=== PATIENT | female | born 1950 | race Caucasian/White ===

== ENCOUNTER → 2018-01-29 12:35 | Outpatient (CLI) | payer MEDICARE, OTHER, SELFPAY | PROVIDERS: Family Provider Internal Medicine; PCP Internal Medicine; Visit Provider Obstetrics & Gynecology | DX: Z12.31 Encounter for screening mammogram for malignant neoplasm of breast (principal) | CPT/HCPCS: 77063; 77067 ==

== ENCOUNTER → 2018-11-26 | Outpatient (CLI) | payer MEDICARE, OTHER, SELFPAY ==
[2018-05-23 13:53] VITALS: BMI 23.9
[2018-11-26 17:17] LABS: D-Dimer Quantitative (DVT/PE) < 0.27 FEU/ug/m (0.27-0.49)
== END | disposition home or self-care (01) ==
LOC: LABSPEC 16:39
PROVIDERS: Family Provider Internal Medicine; PCP Internal Medicine; Referring Provider Family Medicine; Visit Provider Family Medicine
DX: R06.02 Shortness of breath (principal); R07.89 Other chest pain
CPT/HCPCS: 85379

== ENCOUNTER → 2018-11-28 | Outpatient (CLI) | payer MEDICARE, OTHER, SELFPAY ==
[2018-05-23 13:53] VITALS: BMI 23.9
[2018-11-28 14:05] LABS: Albumin, Serum 4.1 g/dL (3.2-5.0)
== END | disposition home or self-care (01) ==
LOC: LAB 12:20
PROVIDERS: Family Provider Internal Medicine; PCP Internal Medicine; Referring Provider Family Medicine
DX: E83.52 Hypercalcemia (principal)
CPT/HCPCS: 36415; 82040

== ENCOUNTER → 2019-05-20 12:46 | Outpatient (CLI) | payer MEDICARE, OTHER, SELFPAY ==
[2018-05-23 13:53] VITALS: BMI 23.9
--- NOTE | 2019-05-20 12:48 | BI_ITS ---
MAMMOGRAPHY - BILATERAL SCREENING REASON FOR EXAM: Female, 69 years old. Routine annual screening examination. PERTINENT HISTORY: Non-contributory. Remote left stereotactic breast biopsy. TECHNIQUE: Digital bilateral breast mary (3D mammographic acquisition) in the CC and MLO projections. 2-D mediolateral oblique (MLO) and craniocaudad (CC) views of both breasts were obtained. CAD: Full Field Digital Mammography with Computer Added Detection was performed. COMPARISON: Comparison is made with prior examination January 29, 2018 and November 17, 2016. FINDINGS: Breast Composition: The breasts are heterogeneously dense, which may obscure small masses. There are no dominant masses or suspicious calcifications. No other significant abnormalities are identified. There has been no significant change since the prior study. BI/SCREEN MAMM (CAD) W/MARY BILAT IMPRESSION: Stable bilateral screening mammogram. Yearly follow-up mammogram recommended. (A) ASSESSMENT CATEGORY: BIRADS Category 1: Negative. A letter regarding these results will be sent to the patient by the facility within 30 days. Approximately 10% of breast cancers are not detected by mammography. A normal mammogram should not delay biopsy of a clinically suspicious abnormality. [id number] Electronically Signed: Alex Nielsen, at 13:34 EST , Service support ,
== END ==
PROVIDERS: Family Provider Family Medicine; PCP Family Medicine; Referring Provider Obstetrics & Gynecology; Visit Provider Obstetrics & Gynecology
DX: Z12.31 Encounter for screening mammogram for malignant neoplasm of breast (principal)
CPT/HCPCS: 77063; 77067

== ENCOUNTER 2020-03-10 10:12 | Emergency (ER) | payer MEDICARE, OTHER, SELFPAY ==
[2019-11-12 12:48] VITALS: BMI 23.9
[2020-03-10 10:12] VITALS: BP 155/90; PULSE 82; RESP 18; TEMP 36.1; O2SAT 97; BMI 23.3
--- NOTE | 2020-03-10 10:37 | RAD_ITS ---
STUDY: X-RAY - RIGHT WRIST REASON FOR EXAM: Female, 69 years old. FELL ON RIGHT WRIST YESTERDAY. PAIN ON ULNAR SIDE. TECHNIQUE: 3 view(s) of the wrist were obtained. COMPARISON: None. FINDINGS: Acute mildly displaced fractures at the right distal radius and ulna. No acute dislocation. No acute bone destruction. Advanced arthrosis at the first carpometacarpal joint. Mild intercarpal joint arthrosis. Osteopenia. Soft tissue swelling at the wrist. RAD/Wrist min 3 Views IMPRESSION: Acute right distal radius and ulnar fractures Soft tissue swelling Electronically Signed: Jamari James DO at 11:24 EDT Tel , Service support ,
--- NOTE | 2020-03-10 10:40 | ED.VIS.FALL ---
History of Present Illness Chief Complaint: Upper Extremity Injury Informant: Patient Occurred: Today Mechanism/Context: Same level fall, Slip - on her outdoor ramp Location: right wrist Quality of Pain: Aching Current Severity: Mild Maximum Severity: Severe Worsened by: moving R wrist Relieved by: remaining still Associated Symptoms: Loss of function. Negative for: Parasthesias, Weakness, Inability to ambulate, Loss of consciousness, Amnesia Narrative: [place] female slipped on her outdoor ramp, falling to right outstretched hand and injuring her right wrist. She denies any other injury. No anticoagulants, no head injury, no loss of consciousness. No recent illness. - Past Medical History (1) Benign essential hypertension Status: Chronic Past Medical History - Allergies and Home Meds Allergies/Adverse Reactions: Allergies amoxicillin Allergy (Verified 03/10/20 10:16) Rash diclofenac Allergy (Verified 03/10/20 10:42) Shortness of breath iodine Allergy (Verified 03/10/20 10:16) Anaphylaxis Primary Care Physician: Haroldo De Anda MD [Primary Care Provider] - Surgical History: - - Left wrist orthopedic Lives: Spouse/ Significant Other Smoking Status: Never smoker Review of Systems General: Denies: Chills, Fever, Sweats Musculoskeletal: Reports: Extremity Pain Skin: Denies: Rash, Wounds Neurological: Denies: Headache, Weakness, Numbness Physical Exam Vital Signs/Narrative: Vital Signs Temp Pulse Resp BP Pulse Ox 03/10/20 10:12 97.0 F L 82 18 155/90 H 97 Inital Vital Signs reviewed: Yes General: Well nourished, Well developed, - - Well-appearing no distress Head: Normocephalic, Atraumatic Eyes: Perrl, EOMI Extremeties: Limited range of motion with deformity at the right wrist. Tender throughout the distal radius and distal ulna area. The deformity appears to be possibly radial displacement of the carpus and hand. Reasonable range of motion of the fingers without issue including the MCPJs and the thumb CMCJ. Nontender throughout the elbow and shoulder with good range of motion at those joints. All other extremities range without difficulty. Skin: Normal color, No rash, Trauma - Contusion with small hematoma distal right wrist, dorsal at distal radius Neurological: Alert, Oriented x3, Cranial nerves II-XII grossly intact, Normal Strength, Normal Sensation, Normal Gait Psychological: Normal affect, Normal Mood Diagnostic/Tx/Re-eval Clinical Impression(s) from Imaging Studies Wrist X-Ray 03/10/20 10:37 IMPRESSION: Acute right distal radius and ulnar fractures Soft tissue swelling Electronically Signed: Jamari James DO at 11:24 EDT Tel , Service support , Wrist X-Ray 03/10/20 12:39 IMPRESSION: Casted right distal radius and ulnar fractures Soft tissue swelling Electronically Signed: Jamari James at 13:09 EDT Tel , Service support , - Medical Decision Making X-ray confirms distal radius and ulna fractures. Patient was consented for closed reduction and hematoma block. After the initial 1, the x-ray still showed persistent significant angulation. Therefore, the patient allow me to repeat the procedure, but the lidocaine was wearing off so we repeated the hematoma block. I think the alignment looks much better, with reduction of the displacement on the second attempt. She will follow-up with [facility], she saw Dr. Liang in the past but he is retired. She wanted something for pain was offered [place], but she only wants Tylenol right now, prescribed [place] for use at home as needed. Procedures - Upper Extremity Splints Upper Extremity Splint: Orthoglass, - - short arm AP; NVID after placement Splint Fabrication: Fabricated Location: Right Procedure(s): Hematoma block closed right distal radius fracture --after sterile isopropanol prep, 8 cc of plain 1% lidocaine was placed into the hematoma with a dorsal approach, after aspirating a small amount of blood, and palpating the fracture directly. This was performed twice, about 2 hours apart. Tolerated well no complications. Closed reduction right distal radius fracture --manual manipulation was performed to try to correct the dorsal displacement of the distal radius. This was performed 2 separate times, after a hematoma block prior to each. Tolerated well no complications. Postreduction films show good alignment and improvement. ED Disposition - Plan for ED Patient: Disposition: Home or Assisted Living Diagnosis: Traumatic closed displaced fracture of distal end of right radius and ulna Instructions: ED Fx Colles Wrist Redu Requ Prescriptions: Hydrocodone Bitart/Apap 5-325 [[place] 5MG-325MG] 1 tab PO Q4H PRN PRN 2 Days #10 tab PRN Reason: Pain Prescription Printed Referrals: Eric Garrett MD [STAFF PHYSICIAN] - As soon as possible (Call for appointment)
--- NOTE | 2020-03-10 12:39 | RAD_ITS ---
STUDY: X-RAY - RIGHT WRIST REASON FOR EXAM: Female, 69 years old. Post reduction. TECHNIQUE: 2 view(s) of the wrist were obtained. COMPARISON: Earlier the same day. FINDINGS: Cast application which which partially obscures soft tissue and osseous details. Casted mildly displaced fractures at the right distal radius and ulna. No acute dislocation. No acute bone destruction. Advanced arthrosis at the first carpometacarpal joint. Mild intercarpal joint arthrosis. Osteopenia. RAD/Wrist 2 Views IMPRESSION: Casted right distal radius and ulnar fractures Soft tissue swelling Electronically Signed: Jamari James DO at 13:09 EDT Tel , Service support ,
--- NOTE | 2020-03-10 14:35 | RAD_ITS ---
STUDY: X-RAY - RIGHT WRIST REASON FOR EXAM: Second post reduction of right wrist fracture. TECHNIQUE: 2 view(s) of the wrist were obtained. COMPARISON: Radiographs 03/10/2020. FINDINGS: There is osteopenia. There is a mildly impacted distal radial fracture with less dorsal displacement of the distal fragment since the first post reduction series. There is no interval change of the nondisplaced ulnar styloid process fracture. Normal radiocarpal articulation. Normal distal radioulnar articulation. Normal carpal bones. Normal carpal articulations. There is joint space narrowing of the carpometacarpal articulation of the thumb. Normal second through fifth carpometacarpal articulations. Normal visualized metacarpal bones. There is an overlying cast. RAD/Wrist 2 Views IMPRESSION: Mildly impacted distal radial fracture with less dorsal displacement of the distal fragment since the prior reduction series. No interval change of ulnar styloid process fracture. Electronically Signed: Stephen Carreon MD at 15:31 EDT Tel , Service support ,
[2020-03-10 14:49] VITALS: BP 188/88; PULSE 78; RESP 16
[2020-03-10] MEDS: Acetaminophen 325 MG Tablet 650 MG PO (15:31)
== END 2020-03-10 15:44 | disposition home or self-care (01) ==
PROVIDERS: Emergency Provider Emergency Medicine; PCP Family Medicine
DX: S52.501A Unspecified fracture of the lower end of right radius, initial encounter for closed fracture (principal); S52.601A Unspecified fracture of lower end of right ulna, initial encounter for closed fracture; I10 Essential (primary) hypertension; W01.0XXA Fall on same level from slipping, tripping and stumbling without subsequent striking against object, initial encounter; Y93.01 Activity, walking, marching and hiking; Y92.008 Other place in unspecified non-institutional (private) residence as the place of occurrence of the external cause; Y99.8 Other external cause status
CPT/HCPCS: 25605; 29125; 73100; 73110; 99283; A4216

== ENCOUNTER 2020-07-29 13:46 | Outpatient (RCR) | payer MEDICARE, OTHER, SELFPAY | END 2020-07-29 23:59 | LOC: IMMUN 13:46 | PROVIDERS: PCP Family Medicine; Visit Provider Family Medicine | DX: Z23 Encounter for immunization (principal) | CPT/HCPCS: 0011A; 0012A; 91301 ==

== ENCOUNTER → 2020-11-12 10:54 | Outpatient (CLI) | payer MEDICARE, OTHER, SELFPAY ==
[2018-05-23 13:53] VITALS: BMI 23.9
--- NOTE | 2020-11-12 10:56 | BI_ITS ---
MAMMOGRAPHY - BILATERAL SCREENING REASON FOR EXAM: Female, 70 years old. Routine annual screening examination. PERTINENT HISTORY: Non-contributory. Prior left stereotactic breast biopsy. TECHNIQUE: Digital bilateral breast mary (3D mammographic acquisition) in the CC and MLO projections. 2-D mediolateral oblique (MLO) and craniocaudad (CC) views of both breasts were obtained. CAD: Full Field Digital Mammography with Computer Added Detection was performed. COMPARISON: Comparison is made with prior study dated 05/20/2019 and 01/29/2018. FINDINGS: Breast Composition: The breasts are heterogeneously dense, which may obscure small masses. There are no dominant masses or suspicious calcifications. No other significant abnormalities are identified. There has been no significant change since the prior study. BI/SCRN MAMM (CAD)W/MARY BILAT IMPRESSION: Stable bilateral screening mammogram. Yearly follow-up mammogram recommended. (A) ASSESSMENT CATEGORY: BIRADS Category 1: Negative. A letter regarding these results will be sent to the patient by the facility within 30 days. Approximately 10% of breast cancers are not detected by mammography. A normal mammogram should not delay biopsy of a clinically suspicious abnormality. [id number] Electronically Signed: Alex Nielsen MD at 11:52 EDT , Service support ,
== END ==
PROVIDERS: PCP Family Medicine; Referring Provider Obstetrics & Gynecology; Visit Provider Obstetrics & Gynecology
DX: Z12.31 Encounter for screening mammogram for malignant neoplasm of breast (principal)
CPT/HCPCS: 77063; 77067

== ENCOUNTER 2021-09-03 12:53 | Outpatient (CLI) | payer MEDICARE, OTHER, SELFPAY ==
[2021-09-03 13:15] VITALS: BP 150/77; PULSE 93; RESP 16; TEMP 36.6; O2SAT 97; BMI 24.3
[2021-09-03] MEDS: DENOSUMAB 60 MG/ML SC (13:22)
== END 2021-09-03 23:59 | disposition home or self-care (01) ==
LOC: MEDOUTP 12:55
PROVIDERS: PCP Family Medicine; Referring Provider Internal Medicine Endocrinology, Diabetes & Metabolism; Visit Provider Internal Medicine Endocrinology, Diabetes & Metabolism
DX: M81.0 Age-related osteoporosis without current pathological fracture (principal)
CPT/HCPCS: 96372; J0897

== ENCOUNTER → 2021-11-30 | Outpatient (CLI) | payer MEDICARE, OTHER, SELFPAY ==
--- NOTE | 2021-11-30 13:00 | BI_ITS ---
MAMMOGRAPHY - BILATERAL SCREENING REASON FOR EXAM: Female, 71 years old. Routine annual screening examination. PERTINENT HISTORY: Non-contributory. Remote left stereotactic breast biopsy. TECHNIQUE: Digital bilateral breast mary (3D mammographic acquisition) in the CC and MLO projections. 2-D mediolateral oblique (MLO) and craniocaudad (CC) views of both breasts were obtained. CAD: Full Field Digital Mammography with Computer Added Detection was performed. COMPARISON: Comparison is made with prior study dated 11/12/2020 and 05/20/2019. FINDINGS: Breast Composition: The breasts are extremely dense, which lowers the sensitivity of mammography. There are no dominant masses or suspicious calcifications. No other significant abnormalities are identified. There has been no significant change since the prior study. BI/SCRN MAMM (CAD)W/MAYR BILAT IMPRESSION: Stable bilateral screening mammogram. Yearly follow-up mammogram recommended. (A) ASSESSMENT CATEGORY: BIRADS Category 1: Negative. A letter regarding these results will be sent to the patient by the facility within 30 days. Approximately 10% of breast cancers are not detected by mammography. A normal mammogram should not delay biopsy of a clinically suspicious abnormality. [id number] Electronically Signed: Alex Nielsen MD at 13:39 EDT ,
== END | disposition home or self-care (01) ==
LOC: OPBI 12:54
PROVIDERS: PCP Family Medicine; Visit Provider Obstetrics & Gynecology
DX: Z12.31 Encounter for screening mammogram for malignant neoplasm of breast (principal)
CPT/HCPCS: 77063; 77067

== ENCOUNTER → 2022-02-14 | Outpatient (CLI) | payer MEDICARE, OTHER, SELFPAY ==
--- NOTE | 2022-02-14 14:32 | CT_ITS ---
STUDY: CT ABDOMEN AND PELVIS WITH AND WITHOUT CONTRAST REASON FOR EXAM: Female, 71 years old. COMPLEX CYSTIC MASS KIDNEY RADIATION DOSAGE (If Supplied By Facility): CTDIvol = ( 11 ) mGy, DLP = ( 1365.48 ) mGycm TECHNIQUE: Transaxial images were obtained from the dome of the diaphragm to the symphysis pubis without oral contrast. IV 100mL Isovue-300 was administered. Sagittal and coronal images were reconstructed. Individualized dose optimization techniques were used for this CT. COMPARISON: None. FINDINGS: Minimal linear scarring at the right lung base. Coronary artery calcification. Normal liver. Normal gallbladder and extrahepatic biliary system. Normal spleen. Normal pancreas. Normal bilateral adrenal glands. Normal right kidney. There is a 1.7 cm x 1.8 cm cyst in the mid posterior aspect of the left kidney. There is also evidence of a 1.8 cm cyst in the anterior midportion of left kidney as well as a subcentimeters cyst in the medial midportion of the left kidney. Normal visualized stomach. Normal small intestine. Normal colon. The appendix is visualized and appears normal. There is scattered atherosclerotic calcification of the abdominal aorta, without a demonstrated aneurysm. Normal inferior vena cava. Normal retroperitoneum. Distended urinary bladder. Normal abdominal wall. There are diffuse degenerative changes of the visualized lumbar spine. Marked degree of levoconvex scoliosis with the DEBRA vamshi fixation. CT/CT Abd/Pelvis W/WO Contrast IMPRESSION: Small cysts in the left kidney. Electronically Signed: Alex Nielsen MD at 15:14 EDT ,
[2022-02-14 14:40] LABS: CREATININE FINGERSTICK < 0.9 mg/dL (0.55-1.02); EGFR FINGERSTICK > 60.0000 mL/min (>60)
== END | disposition home or self-care (01) ==
LOC: CT 14:07
PROVIDERS: PCP Family Medicine; Referring Provider Urology; Visit Provider Urology
DX: N28.1 Cyst of kidney, acquired (principal)
CPT/HCPCS: 74178; Q9967

== ENCOUNTER → 2022-03-11 | Outpatient (CLI) | payer MEDICARE, OTHER, SELFPAY ==
[2022-03-11 10:55] VITALS: BP 124/85; PULSE 95; TEMP 36.8; O2SAT 93
[2022-03-11] MEDS: DENOSUMAB 60 MG/ML SC (11:01)
== END | disposition home or self-care (01) ==
LOC: MEDOUTP 10:48
PROVIDERS: PCP Family Medicine; Referring Provider Internal Medicine Endocrinology, Diabetes & Metabolism; Visit Provider Internal Medicine Endocrinology, Diabetes & Metabolism
DX: M81.0 Age-related osteoporosis without current pathological fracture (principal)
CPT/HCPCS: 96372; J0897

== ENCOUNTER → 2022-09-09 | Outpatient (CLI) | payer MEDICARE, OTHER, SELFPAY ==
[2022-09-09 13:07] VITALS: BP 153/68; PULSE 82; RESP 16; O2SAT 95; BMI 21.5
[2022-09-09] MEDS: DENOSUMAB 60 MG/ML SC (13:08)
== END | disposition home or self-care (01) ==
LOC: MEDOUTP 12:54
PROVIDERS: PCP Family Medicine; Referring Provider Internal Medicine Endocrinology, Diabetes & Metabolism; Visit Provider Internal Medicine Endocrinology, Diabetes & Metabolism
DX: M81.0 Age-related osteoporosis without current pathological fracture (principal)
CPT/HCPCS: 96372; J0897

== ENCOUNTER 2022-10-18 12:42 | Emergency (ER) | payer MEDICARE, OTHER, SELFPAY ==
[2022-10-18 12:42] VITALS: BP 114/73; PULSE 98; RESP 16; TEMP 36.4; O2SAT 98; BMI 21.4
--- NOTE | 2022-10-18 12:59 | EKG12_ITS ---
Test Reason : DIZZINESS Blood Pressure : / mmHG Vent. Rate : 085 BPM Atrial Rate : 085 BPM P-R Int : 182 ms QRS Dur : 060 ms QT Int : 382 ms P-R-T Axes : 078 059 073 degrees QTc Int : 454 ms Normal sinus rhythm Septal infarct , age undetermined Abnormal ECG Confirmed by SEE MENEZES, AMILCAR ([id number]), editor news BLAINE WAGNER ([id number]) on 10/20/2022 9:36:12 AM Referred By: Confirmed By:AMILCAR CUI MD
--- NOTE | 2022-10-18 13:02 | EX.ED.DYSGE1 ---
HPI History of Present Illness Chief Complaint: Nosebleed Detail of Chief Complaint: Dizziness Informant: patient Narrative Narrative: Patient presents secondary to dizziness. She has had 6 nosebleeds in the last month. She had a nosebleed this morning lasted about an hour that was quite heavy. She states she did cough up a large clot from her throat as well. She states as the nosebleed today was finally coming down she noted that she was lightheaded and slightly sweaty. She denied chest pain or palpitations. She had no syncopal episode. [facility] Medical History Arthritis Cardiomyopathy Hypertension MGUS (monoclonal gammopathy of unknown significance) Osteoporosis Restrictive lung disease Home Medications calcium carbonate 500 mg calcium (1,250 mg) chewable tablet (Calci-Chew) 500 mg PO BID 05/23/18 [History Last Taken Unknown] cholecalciferol (vitamin D3) 50 mcg (2,000 unit) capsule 2,000 unit PO DAILY 05/23/18 [History Last Taken Unknown] multivitamin,da-kzlh-vywrldce (Complete Multivitamin tablet) 1 tab PO DAILY 05/23/18 [History Last Taken Unknown] albuterol PRN Shortness Of Breath 03/11/22 [History Last Taken Unknown] budesonide-formoterol HFA 160 mcg-4.5 mcg/actuation aerosol inhaler (Symbicort) 2 puff inhalation Q12H 03/11/22 [History Last Taken Unknown] denosumab 60 mg/mL subcutaneous syringe 60 mg subcut [id number] #1 mL 07/26/22 [Rx Last Taken Unknown] diltiazem HCl 180 mg capsule,extended release 24 hr 180 mg PO DAILY 09/09/22 [History Last Taken Unknown] Allergy/AdvReac Type Severity Reaction Status Date / Time aspirin Allergy Intermediate lips swell Verified 10/18/22 12:44 amoxicillin Allergy Rash Verified 10/18/22 12:44 diclofenac Allergy Shortness Verified 10/18/22 12:44 of breath iodine Allergy Anaphylaxis Verified 10/18/22 12:44 metoprolol Allergy PT UNSURE Verified 10/18/22 12:44 OF REACTION shellfish derived Allergy Anaphylaxis Verified 10/18/22 12:44 Family History Mother Cancer colon Father Cancer lung Surgical History History of bunionectomy S/P wrist surgery Social History Smoking Status: Never smoker alcohol intake: current details: social substance use type: does not use caffeine: Yes what type of physical activity do you participate in: none seatbelt use: always do you feel safe at home: Yes additional social history: Ray- retired Patient is retired ROS ROS ED Constitutional Constitutional ED: Denies chills or fever(s) Eyes Eyes: Denies change in vision or discharge from eye(s) ENT ENT ED: Reports other Details: Left-sided nosebleed ; Denies discharge from eye(s), rhinorrhea or sore throat Cardiovascular Cardiovascular: Denies chest pain or palpitations Respiratory/Chest Respiratory/Chest: Denies cough or dyspnea Gastrointestinal Gastrointestinal: Denies abdominal pain, nausea or vomiting Genitourinary Genitourinary ED: Denies dysuria Musculoskeletal Musculoskeletal: Denies back pain or extremity pain Integumentary Denies Abrasions or rash Neurologic Neurologic: Reports weakness and other Details: Dizziness ; Denies headache(s) Psychiatric Psychiatric: Denies anxiety or depression Allergic/Immunologic Allergic/Immunologic ED: Denies lip swelling or urticaria EXAM Physical Exam Const Vital Signs: 10/18/22 12:42 Temperature 97.6 F L Temperature Source Temporal Pulse Rate 98 Respiratory Rate 16 Blood Pressure 114/73 Blood Pressure Mean 86 Pulse Ox 98 Oxygen Delivery Method Room Air Positive well nourished and well developed General Appearance ED: well developed HEENT Reports normocephalic and head/scalp atraumatic Eyes PERRL and EOMs intact bilaterally Neck supple Chest Wall inspection of chest normal and palpation of chest normal Resp normal respiratory effort and clear to auscultation bilaterally Cardio regular rate and regular rhythm GI normal to inspection, nondistended, normoactive bowel sounds Palpation: soft Extremity normal to inspection Neuro oriented x3 and no sensory deficits noted Sensorium / Orientation: alert Motor Exam: strength 5/5 throughout Psych mental status grossly normal Skin no rashes or lesions noted MDM MDM MDM Narrative Medical decision making narrative: Patient placed on quality assurance monitor chassis and EKG obtained given the patient's lightheadedness and dizziness. Labwork obtained to evaluate for leukocytosis, anemia, and electrolyte derangement. Patient given a liter IV fluids. Lab Data Attestation: I reviewed the patient's lab results. Labs: Laboratory Results - last 24 hr 10/18/22 10/18/22 10/18/22 13:20 13:20 13:20 WBC 12.5 H RBC 4.32 Hgb 11.5 L Hct 36.9 L MCV 85.4 MCH 26.6 L MCHC 31.2 L RDW Std Deviation 42.5 RDW Coeff of Jesse 13.8 Plt Count 248 MPV 10.5 Immature Gran % (Auto) 0.500 Neut % (Auto) 86.8 H Lymph % (Auto) 6.7 L [place] % (Auto) 5.2 Eos % (Auto) 0.1 Baso % (Auto) 0.7 Absolute Neuts (auto) 10.8 H Absolute Lymphs (auto) 0.84 Nucleated RBC % 0 PT 13.9 INR 1.1 APTT 35.0 Sodium 138 Potassium 4.1 Chloride 104 Carbon Dioxide 29.0 Anion Gap 5 BUN 17 Creatinine 0.70 Estim Creat Clear Calc 39.63 Est GFR (MDRD) Af Amer 106 Est GFR (MDRD) Non-Af 87 BUN/Creatinine Ratio 24.4 H Glucose 105 Calcium 9.2 EKG Initial EKG: Attestation: I personally reviewed and interpreted this EKG as follows: Interpretation: Sinus Rhythm (Sinus 85 with no acute ischemia.) Treatment and Re-Evaluation :: Patient has remained stable while in the emergency room. CBC reveals a white count of 12.5. Hemoglobin is 11.5. I was able to find prior labs drawn on September 16 of this year at [facility]. At that time her hemoglobin was 13.3. Her chemistry studies are unremarkable. Her coags are normal. On repeat evaluation patient resting comfortably. I did discuss lab results with her including a drop in her hemoglobin of 1.8 g in the last month. She is still well above the level that we would consider blood transfusion. Her nosebleeds have been very random and she has no bleeding at this time. I do not feel that nasal packing would be significantly beneficial. She has seen Dr. Mixon in the past and will follow-up with him. I did recommend Afrin nasal spray and holding pressure if she gets another nosebleed. Discharge Plan Triage Chief Complaint: Nosebleed ED Provider: Shanita Terrell Dx/Rx/DC Orders Clinical Impression: Dizziness, Epistaxis Instructions: Dizziness Fainting Causes, ED Epistaxis (Adult) Prescriptions: No Action Complete Multivitamin tablet 1 tab PO DAILY cholecalciferol (vitamin D3) 2,000 unit capsule 2,000 unit PO DAILY calcium carbonate [Calci-Chew] 500 mg calcium (1,250 mg) tablet,chewable 500 mg PO BID denosumab 60 mg/mL syringe 60 mg SUBCUT [id number] Qty: 1 1RF budesonide-formoterol [Symbicort] 160-4.5 mcg/actuation Hfa Aerosol Inhaler 2 puff INHALATION Q12H albuterol PRN (Reason: Shortness Of Breath) diltiazem HCl 180 mg capsule,extended release 24hr 180 mg PO DAILY Label Comments: take 1 capsule by mouth once daily Primary Care Provider: Haroldo De Anda Referrals: Chin Mixon MD [Med Staff - Active Staff] - As soon as possible Haroldo De Anda MD [Primary Care Provider] - Disposition Disposition: Home, Self Care
[2022-10-18] MEDS: 0.9% Normal Saline 1,000 ML 1000 ML IV (13:30)
[2022-10-18 13:39] LABS: Absolute Lymphocyte Count 0.84 X10^3/uL (0.83-4.51); Absolute Neutrophil Count 10.8 X10^3/uL (2.0-7.7); Basophil# 0.09 X10^3/uL; Basophil% 0.7 % (0-1); Eosinophil# 0.01 X10^3/uL; Eosinophils% 0.1 % (0-5); Hematocrit 36.9 % (37-47); Hemoglobin 11.5 g/dL (12.0-15.0); Lymphocyte # 0.84 X10^3/ul (0.83-4.51); Lymphocyte % 6.7 % (19-41); Mean Corp Hgb Conc 31.2 g/dL (32-36); Mean Corpuscular Hgb 26.6 pg (27.0-32.0); Mean Corpuscular Volume 85.4 fL (81-99); Mean Platelet Vol. 10.5 fl (6.2-12.0); Monocyte# 0.65 X10^3/uL; Monocyte% 5.2 % (0-10); NRBC Flagged by Analyzer 0 % (0-5); Neutrophil # 10.84 X10^3/uL (2.7-7.7); Neutrophil % 86.8 % (47-70); Platelet Count 248 K/mm3 (150-450); RBC Distribution Width CV 13.8 % (11.6-14.6); RBC Distribution Width SD 42.5 fl (35.1-43.9); Red Blood Count 4.32 M/mm3 (4.2-5.4); White Blood Count 12.5 K/mm3 (4.4-11.0)
[2022-10-18 13:48] LABS: International Normalized Ratio 1.1; Prothrombin Time (Protime)PT. 13.9 SECONDS (11.7-14.9)
[2022-10-18 13:52] LABS: Anion Gap 5 (5-15); BUN 17 mg/dL (7-18); BUN/Creat Ratio 24.4 RATIO (10-20); Calcium,Total 9.2 mg/dL (8.5-10.1); Chloride 104 mmol/L (98-107); EST Glomerular Filtration Rate 87 mL/min (>60); Est Glom Filt Rate - Afr Amer 106 mL/min (>60); Estimated Creatinine Clearance 39.63 ml/min; Glucose 105 mg/dL (74-106); Potassium 4.1 mmol/L (3.5-5.1); Sodium Level 138 mmol/L (136-145)
== END 2022-10-18 14:34 | disposition home or self-care (01) ==
PROVIDERS: Emergency Provider Emergency Medicine; PCP Family Medicine; Visit Provider Emergency Medicine
DX: R42 Dizziness and giddiness (principal); R04.0 Epistaxis
CPT/HCPCS: 80048; 85025; 85610; 85730; 93005; 96360; 99285; J7030

== ENCOUNTER → 2022-12-02 | Outpatient (CLI) | payer MEDICARE, OTHER, SELFPAY ==
--- NOTE | 2022-12-02 10:51 | BI_ITS ---
MAMMOGRAPHY - BILATERAL SCREENING REASON FOR EXAM: Female, 72 years old. Routine annual screening examination. PERTINENT HISTORY: Non-contributory. Remote left stereotactic breast biopsy. TECHNIQUE: Digital bilateral breast mary (3D mammographic acquisition) in the CC and MLO projections. 2-D mediolateral oblique (MLO) and craniocaudad (CC) views of both breasts were obtained. CAD: Full Field Digital Mammography with Computer Added Detection was performed. COMPARISON: Comparison is made with prior study dated November 30, 2021 and November 12, 2020. FINDINGS: Breast Composition: The breasts are extremely dense, which lowers the sensitivity of mammography. There are no dominant masses or suspicious calcifications. No other significant abnormalities are identified. There has been no significant change since the prior study. BI/SCRN MAMM (CAD)W/MARY BILAT IMPRESSION: Stable bilateral screening mammogram. Yearly follow-up mammogram recommended. (A) ASSESSMENT CATEGORY: BIRADS Category 1: Negative. A letter regarding these results will be sent to the patient by the facility within 30 days. Approximately 10% of breast cancers are not detected by mammography. A normal mammogram should not delay biopsy of a clinically suspicious abnormality. [id number] Electronically Signed: Alex Nielsen MD at 12:59 EDT ,
== END | disposition home or self-care (01) ==
LOC: OPBI 10:50
PROVIDERS: PCP Family Medicine; Referring Provider Obstetrics & Gynecology; Visit Provider Obstetrics & Gynecology
DX: Z12.31 Encounter for screening mammogram for malignant neoplasm of breast (principal)
CPT/HCPCS: 77063; 77067

== ENCOUNTER 2023-03-10 12:13 | Outpatient (CLI) | payer MEDICARE, OTHER, SELFPAY ==
[2023-03-10 12:15] VITALS: BP 163/65; PULSE 84; RESP 16; TEMP 36.2; O2SAT 98
[2023-03-10] MEDS: DENOSUMAB 60 MG/ML SC (12:25)
== END 2023-03-10 12:14 | disposition home or self-care (01) ==
LOC: MEDOUTP 12:13
PROVIDERS: PCP Family Medicine; Referring Provider Internal Medicine Endocrinology, Diabetes & Metabolism; Visit Provider Internal Medicine Endocrinology, Diabetes & Metabolism
DX: M81.0 Age-related osteoporosis without current pathological fracture (principal)
CPT/HCPCS: 96372; J0897

== ENCOUNTER → 2023-11-14 | Outpatient (CLI) | payer MEDICARE, OTHER, SELFPAY ==
--- NOTE | 2023-11-14 15:25 | RAD_ITS ---
STUDY: X-RAY - RIGHT FOOT CLINICAL: Female, 73 years old. Lateral foot pain following a fall. TECHNIQUE: 3 view(s) of the foot. COMPARISON: None. FINDINGS: Calcaneal spurs. Normal visualized subtalar, talonavicular, calcaneocuboid, tarsal and tarsometatarsal articulations. Normal metatarsi. There is degenerative arthrosis of the metatarsophalangeal joint of the hallux with a hallux valgus deformity. Normal tibial and fibular sesamoid bones. Normal interphalangeal joint of the great toe. Normal phalanges of the great toe. Normal second through fifth metatarsophalangeal joints. Normal interphalangeal joints and phalanges of the lesser toes. Soft tissue swelling. RAD/Foot min 3 Views IMPRESSION: Degenerative changes at the first metatarsophalangeal joint. Soft tissue swelling. Calcaneal spurs. Electronically Signed: Alex Nielsen MD at 15:38 EDT ,
== END | disposition home or self-care (01) ==
LOC: MTRAD 15:24
PROVIDERS: PCP Family Medicine; Referring Provider Nurse Practitioner; Visit Provider Nurse Practitioner
DX: M79.673 Pain in unspecified foot (principal)
CPT/HCPCS: 73630

== ENCOUNTER → 2023-11-15 | Outpatient (CLI) | payer MEDICARE, OTHER, SELFPAY ==
--- NOTE | 2023-11-15 15:17 | US_ITS ---
ACR Level 3 findings have been noted. An addendum which confirms receipt of the report will follow. INDICATION: Bleeding EXAMINATION: Ultrasound US Pelvis Non OB Complete With Transvaginal Imaging TECHNIQUE: Transabdominal and transvaginal pelvic ultrasound was performed. Grayscale, spectral waveform, and color flow Doppler evaluation of the adnexa. COMPARISON: None. FINDINGS: UTERUS: Anteverted. The uterus measures 6.1 x 4.5 x 2.2 cm. Myometrial lesion consistent with fibroid measures up to 1.9 cm. The endometrial stripe measures 2 mm in AP diameter which is within normal limits. RIGHT OVARY: Nonvisualized due to small size and postmenopausal patient. LEFT OVARY: . Solid mass with multiple areas of shadowing in the left adnexa measures 5.2 x 4.0 x 3.0 cm. Small amount of Doppler color-flow signal identified within the lesion. FREE FLUID: Trace. US/Pelvic w/ Transvaginal IMPRESSION: 5.2 cm solid left adnexal soft tissue mass with shadowing, possible pedunculated fibroid versus other etiology including ovarian mass. Etiologies could be benign or malignant. Recommend gynecological consultation. Electronically Signed: Yandel Patel MD at 17:23 EDT ,
== END | disposition home or self-care (01) ==
LOC: US 15:10
PROVIDERS: PCP Family Medicine; Referring Provider Urology; Visit Provider Urology
DX: N93.9 Abnormal uterine and vaginal bleeding, unspecified (principal)
CPT/HCPCS: 76830; 76856

== ENCOUNTER → 2023-12-04 | Outpatient (CLI) | payer MEDICARE, OTHER, SELFPAY ==
--- NOTE | 2023-12-04 12:51 | BI_ITS ---
MAMMOGRAPHY - BILATERAL SCREENING 3-D TOMOSYNTHESIS REASON FOR EXAM: Female, 73 years old. breast cancer screening PERTINENT HISTORY: No significant family history. TECHNIQUE: 2-D mammograms and 3-D Tomosynthesis of the breast (s) were performed. CAD was performed. COMPARISON: 12/02/2022 FINDINGS: The breast composition is Extermely dense tissue. Scattered benign calcifications are seen. No dense spiculated masses or suspicious microcalcifications are identified. No architectural distortion is identified. There is no skin thickening or retraction. There has been no significant change since the prior study. BI/SCRN MAMM (CAD)W/MARY BILAT IMPRESSION: No mammographic signs of malignancy. Routine yearly mammograms recommended. ASSESSMENT CATEGORY: BIRADS Category 1: Negative. A letter regarding these results will be sent to the patient by the facility within 30 days. FOLLOW UP RECOMMENDATION: Yearly follow up mammogram recommended. (A) Approximately 10% of breast cancers are not detected by mammography. A normal mammogram should not delay biopsy of a clinically suspicious abnormality. Electronically Signed: Quinton Sinha MD at 16:29 EDT ,
== END | disposition home or self-care (01) ==
LOC: OPBI 12:51
PROVIDERS: PCP Family Medicine; Referring Provider Obstetrics & Gynecology; Visit Provider Obstetrics & Gynecology
DX: Z12.31 Encounter for screening mammogram for malignant neoplasm of breast (principal)
CPT/HCPCS: 77063; 77067

== ENCOUNTER → 2023-12-06 | Outpatient (CLI) | payer MEDICARE, OTHER, SELFPAY ==
--- NOTE | 2023-12-06 14:00 | CT_ITS ---
EXAM: CT PELVIS WITH INTRAVENOUS CONTRAST CLINICAL INDICATION: MASS TECHNIQUE: Helically acquired images were obtained of the pelvis with intravenous contrast. This CT exam was performed using one or more of the following dose reduction techniques: automated exposure control, adjustment of the mA and/or kV according to patient size, and/or use of iterative reconstruction technique. CONTRAST: Oral and amp; IV Readi-CAT and amp; 100mL Isovue-300 COMPARISON: No relevant prior studies available. FINDINGS: BOWEL: Unremarkable as visualized. No bowel distention. No focal inflammatory change. APPENDIX: No evidence of acute appendicitis. INTRAPERITONEAL SPACE: There is a low-density mass in the left hemipelvis posteriorly that measures 4.8 x 3.1 x 3.5 cm. No ascites or other fluid collection. No free air. BLADDER: Appears be a prolapse of the urinary bladder. REPRODUCTIVE: Unremarkable as visualized. No mass. BONES/JOINTS: Unremarkable. No suspicious lytic or blastic abnormality. SOFT TISSUES: Unremarkable. No pelvic wall hernia. LYMPH NODES: Unremarkable. No enlarged lymph nodes. CT/Pelvis WITH IV Contrast IMPRESSION: 1. Prolapse of the bladder. There is dilatation of the ureters which appear to extend down to the proximal portion of the bladder. 2. Hypodense solid mass in the left hemipelvis abutting against the uterus of uncertain etiology. Further evaluation with MRI may be beneficial. Electronically Signed: Handy Moon MD at 21:00 EDT ,
[2023-12-06 14:28] LABS: CREATININE FINGERSTICK < 1.0 mg/dL (0.55-1.02); EGFR FINGERSTICK > 60.0000 mL/min (>60)
== END | disposition home or self-care (01) ==
LOC: CT 13:59
PROVIDERS: PCP Family Medicine; Referring Provider Obstetrics & Gynecology Gynecologic Oncology; Visit Provider Obstetrics & Gynecology Gynecologic Oncology
DX: R19.00 Intra-abdominal and pelvic swelling, mass and lump, unspecified site (principal); R93.89 Abnormal findings on diagnostic imaging of other specified body structures
CPT/HCPCS: 72193; Q9967

== ENCOUNTER 2023-12-24 17:01 | Emergency (ER) | payer MEDICARE, OTHER, SELFPAY ==
[2023-12-24 17:02] VITALS: BP 129/88; PULSE 104; RESP 16; TEMP 36.9; O2SAT 94; BMI 20.5
--- NOTE | 2023-12-24 17:18 | CT_ITS ---
INDICATION: Pain.lower abdomen pain, 5 days post hysterectomy and bladder suspension EXAMINATION: CT ABDOMEN AND PELVIS WITHOUT CONTRAST - CT Abdomen And Pelvis W/O Contrast Injection TECHNIQUE: Helically acquired images were obtained of the abdomen and pelvis without oral or IV contrast. A radiation dose optimization technique was used for this scan. IV Contrast dosage and agent: None. Oral contrast: None. RADIATION DOSAGE (If Supplied By Facility): CTDIvol = ( 6.29 ) mGy, DLP = ( 274.81 ) mGycm COMPARISON: 02/14/2022 FINDINGS: LOWER CHEST: Lung bases are clear. Mild atelectasis at the LEFT lung base. No infiltrate or consolidation. LIVER: The liver has normal configuration and density given the limitation of noncontrast exam. No focal mass. GALLBLADDER AND BILIARY TREE: No calcified gallstones. Gallbladder is distended, no radiodense calcifications present. No intra- or extrahepatic biliary ductal dilation. PANCREAS: No focal cystic or solid mass. SPLEEN: Normal size without focal cystic or solid mass. ADRENAL GLANDS: No nodules. KIDNEYS AND URETERS: Kidneys have normal configuration, there has been interval development of hydronephrosis and prominence of the LEFT renal pelvis however no obstructing calcifications identified. There is a LEFT renal cyst measuring 2.0 x 2.6 cm. No hydronephrosis on the RIGHT. PERITONEUM: No ascites or free air. No other fluid collection. BOWEL: The appendix is not positively identified. No evidence of bowel obstruction abscess free fluid or free air. Diffuse diverticulosis is noted. No stomach or bowel distention. There is a small hiatal hernia.. No focal inflammatory change. LYMPH NODES: No enlarged mesenteric or retroperitoneal lymph nodes. VESSELS: Aorta is non-dilated. URINARY BLADDER: Bladder is moderately distended. There is small amount of air within the bladder likely from recent catheterization. REPRODUCTIVE ORGANS: A vaginal cuff appears be present. No abscess or abnormal fluid collections. Minimal scattered collections of residual postoperative air are present. ABDOMINAL WALL: No evidence of hernia. There are scattered air bubbles in the subcutaneous soft tissues consistent with residual postop air. BONES: Extensive postoperative changes including Lozada vamshi fixation of a marked scoliotic curvature. No acute bony changes however evident. CT/Abdomen/Pelvis without Cont IMPRESSION: 1. No masses, bowel obstruction free fluid or free intraperitoneal air. 2. Hiatal hernia. 3. Diverticulosis without evidence diverticulitis. 4. The appendix is not positively identified. 5. Postoperative changes consistent with history of recent hysterectomy and bladder suspension. 6. No evidence cholelithiasis. 7. There is hydronephrosis and dilated LEFT renal pelvis however no obstructing calcifications or extrinsic compression noted. No perinephric fluid collections. 8. 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 9. Extensive postoperative changes involving the thoracolumbar spine. 10. Vaginal cuff is identified. Small amount of air present within the bladder likely from recent catheterization. 11. Minimal LEFT basilar atelectasis. Reference guidance: Bosniak class I and II cysts are considered benign, and require no additional imaging follow-up based on consensus guidelines (JACR 2010; 7:753-773). Electronically Signed: Quinton Moreira MD at 19:33 EDT ,
--- NOTE | 2023-12-24 17:18 | EDS_ITS ---
HPI HPI - GI History of Present Illness Chief Complaint: Abd Pain Detail of Chief Complaint: Abdominal pain and constipation Informant: patient Narrative Narrative: Patient presents with abdominal pain and constipation. Patient states that she had surgery 5 days ago at [facility] with Dr. Chery and Dr. Kaminski. She had a laparoscopic hysterectomy and BSO as well as a bladder suspension and rectocele repair. Patient states that since going home she had not had a bowel movement until today. Patient states she had been taking Colace twice a day and started taking MiraLAX 2 days ago. Patient denies fevers or chills or sweats. She has had nausea but no vomiting. She denies urinary symptoms. She was finally able to have a bowel movement today but feels like she needs to have more. She called [facility] and was instructed to come to the emergency department to rule out bowel obstruction. Patient states that she had been passing gas but passing less gas than before. [facility] Medical History Osteoporosis MGUS (monoclonal gammopathy of unknown significance) Cardiomyopathy Restrictive lung disease Arthritis Hypertension Home Medications ?Medication ?Instructions ?Recorded ?Last Taken ?Type multivitamin,[id number] 1 tab PO DAILY 05/23/18 Unknown History (Complete Multivitamin tablet) denosumab 60 mg/mL subcutaneous 60 mg subcut [id number] #1 mL 07/26/22 Unknown Rx syringe diltiazem HCl 180 mg 180 mg PO DAILY 09/09/22 Unknown History capsule,extended release 24 hr calcium cit 250 mg-ergocalciferol 1 tab PO BID 07/25/23 Unknown History (vit D2) 2.5 mcg (100 unit) tablet (Bryn-Citrate) mometasone-formoterol HFA 100 2 inh inhalation BID 07/25/23 Unknown History mcg-5 mcg/actuation aerosol inhaler (Dulera) ondansetron 4 mg disintegrating 4 mg PO Q8H PRN PRN Nausea #10 tabs 12/24/23 Unknown Rx tablet Allergy/AdvReac Type Severity Reaction Status Date / Time aspirin Allergy Intermediate lips swell Verified 12/24/23 17:02 amoxicillin Allergy Rash Verified 12/24/23 17:02 diclofenac Allergy Shortness Verified 12/24/23 17:02 of breath iodine Allergy Anaphylaxis Verified 12/24/23 17:02 metoprolol Allergy PT UNSURE Verified 12/24/23 17:02 OF REACTION shellfish derived Allergy Anaphylaxis Verified 12/24/23 17:02 Family History Mother Cancer colon Father Cancer lung Surgical History History of bunionectomy S/P wrist surgery Social History Smoking Status: Never smoker alcohol intake: current details: social substance use type: does not use caffeine: Yes what type of physical activity do you participate in: none seatbelt use: always do you feel safe at home: Yes additional social history: Ray- retired Patient is retired ROS ROS ED Review of Systems ROS Unobtainable: other Constitutional Constitutional ED: Reports lethargy; Denies chills, fever(s), sweats or weight loss Eyes Eyes: Denies blurry vision, change in vision or diplopia ENT ENT ED: Denies rhinorrhea or sore throat Cardiovascular Cardiovascular: Denies chest pain, orthopnea or racing heartbeat Respiratory/Chest Respiratory/Chest: Reports dyspnea on exertion; Denies cough, dyspnea, orthopnea or sputum Gastrointestinal Gastrointestinal: Reports abdominal pain, constipation and nausea; Denies diarrhea or vomiting Genitourinary Genitourinary ED: Denies dysuria, hematuria or urinary frequency Musculoskeletal Musculoskeletal: Denies arthralgias, back pain, myalgias or neck pain Integumentary Denies abscess, Abrasions or rash Neurologic Neurologic: Denies headache(s) or weakness Psychiatric Psychiatric: Denies anxiety, depression or suicidal thoughts Endocrine Endocrinology: Denies polydipsia, polyphagia or polyuria Hematologic/Lymphatic Hematologic/Lymphatic: Denies easy bleeding, easy bruising or lymphadenopathy Allergic/Immunologic Allergic/Immunologic ED: Denies mouth swelling, tongue swelling or urticaria EXAM Physical Exam Const Vital Signs: 12/24/23 17:02 12/24/23 18:05 12/24/23 19:00 Temperature 98.4 F 97.8 F 97.8 F Temperature Source Temporal Temporal Temporal Pulse Rate 104 H 108 H 97 Respiratory Rate 16 16 16 Blood Pressure 129/88 H 166/82 H 173/89 H Blood Pressure Mean 101 110 117 Pulse Ox 94 97 93 Oxygen Delivery Method Room Air Room Air Room Air Positive well nourished and well developed General Appearance ED: well developed and NAD HEENT Reports TM's clear and moist mucous membranes normocephalic and atraumatic; Negative for trauma or tenderness Tympanic Membrane ED: Yes TM's clear Eyes PERRL and EOMs intact bilaterally General Eye ED: Negative for pale conjunctiva or scleral icterus Neck no lymphadenopathy, supple and no JVD General: Negative for tenderness Chest Wall inspection of chest normal and palpation of chest normal Chest: Negative for tenderness Resp normal respiratory effort and clear to auscultation bilaterally Effort and Inspection: Negative for respiratory distress or pain with movement Auscultation: Negative for rhonchi, wheezes or diminished lung sounds Cardio regular rate, regular rhythm, S1 normal heart sound, S2 normal heart sound and no murmurs Peripheral Pulses: pulses 2+ throughout GI soft to palpation, non-distended and no masses GI Narrative: Hyperactive bowel sounds. Mild diffuse tenderness. No rebound, rigidity, or peritoneal signs. Patient's incisions on abdomen look clean without signs of infection or drainage. Patient refused rectal exam as I wanted to evaluate for impaction but given her surgery for rectocele repair she was concerned about doing a rectal exam and did not want to proceed with that. Back/Spine no CVA tenderness and no thoracic nor lumbar tenderness Extremity normal to inspection General Extremety ED: Negative for edema General Extremity: Negative for edema Neuro oriented x3, CN's II-XII intact bilaterally, no sensory deficits noted and gait normal Sensorium / Orientation: awake, alert, oriented to person, oriented to place and oriented to time Motor Exam: strength 5/5 throughout and strength abnormal Psych mental status grossly normal Skin no rashes or lesions noted and no wounds MDM MDM MDM Narrative Medical decision making narrative: Patient presents with complaint of not being able to have bowel movement and abdominal cramping since she had surgery on the 16th of this month. Patient ended up having a medium sized bowel movement today that was formed. She has been using suppositories and MiraLAX. She called her surgeon's and they told her apparently to be seen in the ER to rule out bowel obstruction. Clinically she does not seem obstructed. IV line established. CBC with differential obtained for an elevated white count of 12.8 with hemoglobin 10.9 and platelet count of 314. Chemistries unremarkable. Urinalysis was normal. CT scan of the abdomen pelvis without contrast showed no evidence of obstruction. There was a left hydro but without evidence of kidney stone or constrictive lesion of the ureter. There were postop changes. At this point discussed case with patient and her significant other. Will attempt to contact surgeon of record at [facility]. I feel patient can be discharged to home. She will be given a prescription for Zofran and sent home with magnesium citrate. Lab Data Attestation: I reviewed the patient's lab results. Labs: Laboratory Results - last 24 hr 12/24/23 12/24/23 17:30 18:15 WBC 12.8 H RBC 4.15 L Hgb 10.9 L Hct 32.6 L MCV 78.6 L MCH 26.3 L MCHC 33.4 RDW Std Deviation 40.4 RDW Coeff of Jesse 14.2 Plt Count 314 MPV 10.2 Immature Gran % (Auto) 0.500 Neut % (Auto) 83.0 H Lymph % (Auto) 6.2 L Jennings % (Auto) 9.3 Eos % (Auto) 0.6 Baso % (Auto) 0.4 Absolute Neuts (auto) 10.6 H Absolute Lymphs (auto) 0.80 L Nucleated RBC % 0 Sodium 132 L Potassium 3.1 L Chloride 96 L Carbon Dioxide 28.0 Anion Gap 8 BUN 9 Creatinine 0.47 L Estim Creat Clear Calc 48.80 Est GFR (MDRD) Af Amer 165 Est GFR (MDRD) Non-Af 136 BUN/Creatinine Ratio 19.0 Glucose 118 H Calcium 8.5 Urine Color Yellow Urine Clarity Clear Urine pH 6.5 Ur Specific [place] 1.005 Urine Protein 15 H Urine Glucose (UA) Normal Urine Ketones Negative Urine Occult Blood 150 H Urine Nitrite Negative Urine Bilirubin Negative Urine Urobilinogen Normal Ur Leukocyte Esterase 100 H Urine RBC 0-5 SEEN Urine WBC 0-5 SEEN Ur Squamous Epith Cells 0 SEEN Ur Transition Epith Cell 0-5 SEEN Urine Bacteria 0 SEEN Urine Mucus 0 SEEN Radiography Diagnostic Testing: Clinical Impression(s) from Imaging Studies Abdomen/Pelvis CT 12/24/23 17:18 IMPRESSION: 1. No masses, bowel obstruction free fluid or free intraperitoneal air. 2. Hiatal hernia. 3. Diverticulosis without evidence diverticulitis. 4. The appendix is not positively identified. 5. Postoperative changes consistent with history of recent hysterectomy and bladder suspension. 6. No evidence cholelithiasis. 7. There is hydronephrosis and dilated LEFT renal pelvis however no obstructing calcifications or extrinsic compression noted. No perinephric fluid collections. 8. 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 9. Extensive postoperative changes involving the thoracolumbar spine. 10. Vaginal cuff is identified. Small amount of air present within the bladder likely from recent catheterization. 11. Minimal LEFT basilar atelectasis. Reference guidance: Bosniak class I and II cysts are considered benign, and require no additional imaging follow-up based on consensus guidelines (JACR 2010; 7:753-773). Electronically Signed: Quinton Moreira MD at 19:33 EDT , Discharge Plan Triage Chief Complaint: Abd Pain ED Provider: Otto Espinoza Dx/Rx/DC Orders Clinical Impression: Constipation, Post-op pain Instructions: ED Constipation (Adult), ED Post Op Wound Check, Pain Prescriptions: New ondansetron 4 mg tablet,disintegrating 4 mg PO Q8H PRN PRN (Reason: Nausea) Qty: 10 0RF No Action Complete Multivitamin tablet 1 tab PO DAILY denosumab 60 mg/mL syringe 60 mg SUBCUT [id number] Qty: 1 1RF Dulera 100-5 mcg/actuation HFA aerosol inhaler 2 inh inhalation BID Patient Comments: inhale 2 puffs by mouth and INTO THE LUNGS twice a day Bryn-Citrate 250 mg-2.5 mcg (100 unit) tablet 1 tab PO BID diltiazem HCl 180 mg capsule,extended release 24hr 180 mg PO DAILY Patient Comments: take 1 capsule by mouth once daily Primary Care Provider: Haroldo De Anda Referrals: Haroldo De Anda MD [Primary Care Provider] - Print Language: Indian Disposition Disposition: Home, Self Care
[2023-12-24] MEDS: Ondansetron 4 MG/2 ML Vial IV ×2 (17:36→20:22)
[2023-12-24] MEDS: 0.9% Normal Saline (1000mL) 1,000 ML 125 ML IV (17:36)
[2023-12-24 17:40] LABS: Absolute Neutrophil Count 10.6 X10^3/uL (2.0-7.7); Basophil# 0.05 X10^3/uL; Basophil% 0.4 % (0-1); Eosinophil# 0.08 X10^3/uL; Eosinophils% 0.6 % (0-5); Hematocrit 32.6 % (37-47); Hemoglobin 10.9 g/dL (12.0-15.0); Lymphocyte % 6.2 % (19-41); Mean Corp Hgb Conc 33.4 g/dL (32-36); Mean Corpuscular Hgb 26.3 pg (27.0-32.0); Mean Corpuscular Volume 78.6 fL (81-99); Mean Platelet Vol. 10.2 fl (6.2-12.0); Monocyte# 1.19 X10^3/uL; Monocyte% 9.3 % (0-10); NRBC Flagged by Analyzer 0 % (0-5); Neutrophil # 10.64 X10^3/uL (2.7-7.7); Platelet Count 314 K/mm3 (150-450); RBC Distribution Width CV 14.2 % (11.6-14.6); RBC Distribution Width SD 40.4 fl (35.1-43.9); Red Blood Count 4.15 M/mm3 (4.2-5.4); White Blood Count 12.8 K/mm3 (4.4-11.0)
[2023-12-24 18:05] VITALS: BP 166/82; PULSE 108; RESP 16; TEMP 36.6; O2SAT 97
[2023-12-24 18:10] LABS: Anion Gap 8 (5-15); BUN 9 mg/dL (7-18); Calcium,Total 8.5 mg/dL (8.5-10.1); Chloride 96 mmol/L (98-107); Creatinine, Serum 0.47 mg/dL (0.55-1.02); EST Glomerular Filtration Rate 136 mL/min (>60); Est Glom Filt Rate - Afr Amer 165 mL/min (>60); Glucose 118 mg/dL (74-106); Potassium 3.1 mmol/L (3.5-5.1); Sodium Level 132 mmol/L (136-145)
[2023-12-24 18:22] LABS: Bacteria 0 SEEN /hpf (None Seen); Mucous, Urine 0 SEEN /hpf (<or=2+); Squamous Epithelial Cells - UA 0 SEEN /hpf (5-10)
[2023-12-24 18:29] LABS: Color, Urine Yellow (Yellow); Glucose, Dipstick Normal (Normal); Ketone-Dipstick Negative (Negative); Leukocyte Esterase-Dipstick 100 /ul (Negative); Nitrite-Dipstick Negative (Negative); Occult Blood-Urine 150 /ul (Negative); Protein-Dipstick 15 mg/dl (Negative); Specific Gravity, Urine 1.005 (1.002-1.030); Urine Bilirubin Dipstick Negative (Negative); Urine Clarity Clear (Clear); Urine Urobilinogen Normal (Normal); Urine pH 6.5 (5.0 - 8.0)
[2023-12-24 18:35] LABS: Red Blood Cells-Urine 0-5 SEEN /hpf (0-5); Transitional Epithelial - Ur 0-5 SEEN /hpf (0-5); White Blood Cells 0-5 SEEN /hpf (0-5)
[2023-12-24 19:00] VITALS: BP 173/89; PULSE 97; RESP 16; TEMP 36.6; O2SAT 93
[2023-12-24 19:59] VITALS: BP 168/91; PULSE 99; RESP 16; TEMP 36.4; O2SAT 95
[2023-12-24] MEDS: Potassium Chloride Oral Tablet 20 MEQ 40 MEQ PO (20:22)
[2023-12-24] MEDS: Magnesium Citrate 300 ML PO (20:23)
== END 2023-12-24 20:58 | disposition home or self-care (01) ==
PROVIDERS: Emergency Provider Emergency Medicine; PCP Family Medicine; Visit Provider Emergency Medicine
DX: K59.00 Constipation, unspecified (principal); G89.18 Other acute postprocedural pain; Z98.890 Other specified postprocedural states; I10 Essential (primary) hypertension; R06.09 Other forms of dyspnea; K44.9 Diaphragmatic hernia without obstruction or gangrene; K57.90 Diverticulosis of intestine, part unspecified, without perforation or abscess without bleeding; N13.30 Unspecified hydronephrosis; N28.1 Cyst of kidney, acquired
CPT/HCPCS: 74176; 80048; 81001; 85025; 96361; 96374; 96375; 99283; J7030; A4216; J2405

== ENCOUNTER 2024-03-26 16:04 | Emergency (ER) | payer MEDICARE, OTHER, SELFPAY ==
[2024-03-26 16:04] VITALS: BP 171/107; PULSE 98; RESP 18; TEMP 36.6; O2SAT 98
--- NOTE | 2024-03-26 16:15 | RAD_ITS ---
INDICATION: INJURY EXAMINATION/TECHNIQUE: X-RAY - RIGHT XR Ankle Min 3 Views 3 VIEWS COMPARISON: FINDINGS: SOFT TISSUES: Mild lateral soft tissue swelling. No radiopaque foreign body. BONES/JOINTS: No acute fracture or subluxation.. Normal alignment. Calcaneal spurring. Preservation of the joint space.. No sclerotic or destructive changes observed. RAD/Ankle min 3 Views IMPRESSION: Lateral soft tissue swelling. Electronically Signed: Marcelo Browne DO at 16:28 EDT ,
--- NOTE | 2024-03-26 16:37 | ED.RN ---
Patient self ambulated to restroom
--- OUTSIDE RECORDS SUMMARY | 2024-03-26 17:41 | XMS RPT_ITS | CCD ---
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 Phone Tariq Chew MD Unavailable Burt Lima Unavailable Unavailable Markus Rascon MD Primary Care Provider Markus Rascon MD Primary Care Provider Markus Rascon MD Primary Care Provider Markus Rascon MD Primary Care Provider Danny Oneill DO Unavailable STACEY GIANG Attending Unavailable STACEY GIANG Admitting Unavailable MARKUS RASCON Primary Care Unavailable Gordy Null MD Unavailable Markus Rascon MD Primary Care Provider Markus Rascon MD Primary Care Provider Leandro Chery MD Unavailable Susan MENEZES, Pelon Goddard Unavailable [facility], MARKUS Primary Care Unavailable LEANDRO CHERY Admitting Unavailable LEANDRO CHERY Attending Unavailable TARAH, MARKUS Primary Care Unavailable MARIE ALSTON Attending Unavailable TARAH, MARKUS Primary Care Unavailable LEANDRO CHERY Attending Unavailable TARIQ CHEW Referring Unavailable [facility], MARKUS Primary Care Unavailable LEANDRO CHERY Attending Unavailable TARAH, MARKUS Primary Care Unavailable MARIE ALSTON Attending Unavailable TARAH, MARKUS Primary Care Unavailable MARIE ALSTON Attending Unavailable TARAH, MARKUS Primary Care Unavailable TARAH, MARKUS Primary Care Unavailable LEANDRO CHERY Attending Unavailable MARKUS RASCON Primary Care Unavailable MARKUS RASCON Referring Unavailable MARKUS RASCON Primary Care Unavailable MARKUS RASCON Primary Care Unavailable MARKUS RASCON Referring Unavailable DARYL HAMLIN Attending Unavailable TARAH, MARKUS Parekh Attending Unavailable TARAH, MARKUS Parekh Primary Care Unavailable TARAH, MARKUS Parekh Primary Care Unavailable TARAH, MARKUS J Primary Care Unavailable NAIN CAMPBELL Attending Unavailable TARAH, MARKUS Parekh Primary Care Unavailable MASCI, DANNY A Referring Unavailable TARAH, MARKUS Parekh Primary Care Unavailable SLEKYLEE, CLARY WOLF Referring Unavailable TARAH, MARKUS Parekh Primary Care Unavailable RYLEE DUARTE Attending Unavailable TARAH, MARKUS Parekh Primary Care Unavailable MASCI, DANNY A Referring Unavailable MASCI, DANNY Goddard Attending Unavailable TARAH, MARKUS Parekh Primary Care Unavailable TARAH, MARKUS Parekh Referring Unavailable DEBBIE CONSTANTINO Attending Unavailable TARAH, MARKUS Parekh Primary Care Unavailable TARAH, MARKUS Parekh Primary Care Unavailable DARYL HAMLIN Attending Unavailable DARYL HAMLIN Referring Unavailable TARAH, MARKUS Parekh Primary Care Unavailable RUSSEL MENJIVAR Referring Unavailable TARAH, MARKUS Parekh Primary Care Unavailable SLEIK, CLARY WOLF Referring Unavailable SLEIK, CLARY BERUMEND Attending Unavailable TARAH, MARKUS J Attending Unavailable TARAH, MARKUS Parekh Primary Care Unavailable SHANITA JACKSON Attending Unavailable TARAH, MARKUS Parekh Primary Care Unavailable TARAH, MARKUS Parekh Primary Care Unavailable TARAH, MARKUS J Referring Unavailable TARAH, MARKUS Parekh Primary Care Unavailable TARAH, MARKUS J Referring Unavailable TARAH, MARKUS Parekh Primary Care Unavailable RYLEE DUARTE A Referring Unavailable TARAH, MARKUS Parekh Primary Care Unavailable SUPPRYLEE BENTLEY A Referring Unavailable TARAH, MARKUS Parekh Primary Care Unavailable TARAH, MARKUS Parekh Primary Care Unavailable TARAH, MARKUS Parekh Primary Care Unavailable MASCI, DANNY A Referring Unavailable MASCI, DANNY A Referring Unavailable MASCI, DANNY A Attending Unavailable TARAH, MARKUS Parekh Primary Care Unavailable TARAH, MARKUS Parekh Primary Care Unavailable TARAH, MARKUS Parekh Referring Unavailable Allergies Allergy Classification Reported Allergen(s) Allergy Type Date of Onset Reaction(s) Facility Corticosteroids (3 sources) Hydrocortisone Drug Allergy 01-21-20 17 [facility] Iodine (and Iodine containting drugs) (4 sources) Iodine Drug Allergy 04-22-20 05 Shortness of breath [facility] Metoprolol (3 sources) Metoprolol Drug Allergy 11-10-19 19 Nausea And Vomiting, Other [facility] NSAIDs (4 sources) Diclofenac Drug Allergy 02-22-20 06 Shortness of breath [facility] Penicillins (antibiotic) (4 sources) Amoxicillin Drug Allergy 04-22-20 05 Rash [facility] Salicylic Acid (4 sources) Salicylic Acid Drug Allergy 04-22-20 05 Swelling [facility] Shellfish (3 sources) Shellfish Food Allergy 04-22-20 05 Anaphylaxis [facility] (20 sources) amoxicillin; Translations: [AMOXICILLIN] drug allergy 04-22-20 05 Rash [facility] Work Phone: (3 sources) aspirin drug allergy 01-21-20 17 [facility] Work Phone: (20 sources) diclofenac; Translations: [DICLOFENAC] drug allergy 02-22-20 06 Shortness of Breath [facility] Work Phone: (20 sources) iodine; Translations: [IODINE] drug allergy 04-22-20 05 Shortness of Breath [facility] Work Phone: (3 sources) [facility] [employer] [facility] drug allergy 01-21-20 17 [facility] Work Phone: (20 sources) Metoprolol; Translations: [METOPROLOL] Drug Allergy 11-10-19 19 Intolerance, Nausea And Vomiting, Other [facility] Work Phone: (20 sources) Salicylic Acid; Translations: [SALICYLATES] Drug Allergy 04-22-20 05 Swelling [facility] Work Phone: (20 sources) tioconazole; Translations: [TIOCONAZOLE] Drug Allergy 04-22-20 05 Other: See Comments, Intolerance [facility] Work Phone: (20 sources) shell fish [Other] Propensity to adverse reactions 04-22-20 05 Anaphylaxis [facility] Work Phone: (20 sources) Salicylate product Drug Allergy 04-22-20 05 Swelling [facility] Work Phone: (20 sources) Tioconazole Allergy to substance 04-22-20 05 Rash [facility] (20 sources) Hydrocortisone Drug Allergy 01-21-20 17 [facility] (20 sources) Shellfish Propensity to adverse reactions 04-22-20 05 Anaphylaxis [facility] (1 source) OTHER; Translations: [OTHER] Propensity to adverse reactions (disorder) 04-22-20 [facility] Repository Medications Current Medications Medication Drug Class(es) Dates Sig (Normalized) Sig (Original) acetaminophen 500 mg oral tablet (20 sources) Start: 12-19-2023 End: 12-29-2023 take 2 tablets by mouth every six hours as needed for pain acetaminophen (Tylenol Extra Strength) 500 MG tablet Take 2 tablets (1,000 mg) by mouth every 6 hours as needed for mild pain (1-3) for up to 10 days. 30 tablet 12/19/2023 12/29/2023 Active Start: 12-19-2023 End: 12-19-2023 1,000 mg, Oral, Once, On Mon12/19/23 at 1100, For 1 dose, Preprocedure, Administer 60 minutes prior to surgery. acetaminophen 32 5 mg cap Take by mouth as needed. Active Comment on above: Take by mouth as nee ded. acetaminophen 325 mg / oxyCODONE hydrochloride 5 mg oral tablet (1 source) Opioid Agonist Start: 05-15-20 End: 05-15-20 take 1 tablet by mouth once, then take 1 tablet by mouth every hour oxyCODONE-acetaminop hen (PERCOCET) 5-325 mg tablet Indications: Monoclonal gammopathy Take 1 tablet by mouth one time only for 1 dose. about 1 hour prior to bone marrow biopsy. 1 tablet 0 05/15/2023 05/15/2023 Active Comment on above: Take 1 tablet by [facility] one time only for 1 dose. about 1 hour prior to bone marrow biopsy. [id number] 200 actuat albuterol 0.09 mg/actuat metered dose inhaler (20 sources) beta2-Adrenergic Agonist Start: 05-15-20 End: 04-08-20 take 2 puff(s) by inhalation every four hours as needed for wheezing albuterol HFA (VENTOLIN HFA) 90 mcg/actuation inhaler Indications: Mild persistent asthma without complication Inhale 2 Puffs as instructed every 4 hours as needed for wheezing/shortness of breath. 1 Each 3 10/11/2023 04/08/2024 Active Comment on above: Inhale 2 Puffs as in structed every 4 hours as needed for wheezing/shortness of breath. Blood Pressure Monitor (3 sources) Start: 11-23-19 End: 11-24-19 Blood Pressure Monitor Indications: Essential hypertension Check blood pressure sitting with both feet on the ground and back supported for at least 5 minutes, having arm at heart level, and avoiding caffeine and tobacco for at least an hour prior to checking blood pressure. Goal 130/80 1 Kit 0 11/22/2021 11/23/2021 Active Start: 11-22-2021 End: 11-22-2021 Blood Pressure Monitor Indic ations: Essential hypertension Check blood pressure sitting with both feet on the ground and back supported for at least 5 minutes, having arm at heart level, and avoiding caffeine and tobacco for at least an hour prior to checking blood pressure. Goal 130/80 1 Kit 0 11/22/2021 11/22/2021 Discontinued Comment on above: Check blood pressure sitting with both feet on the ground and back supported for at least 5 minutes, having arm at heart level, and avoiding caffeine and tobacco for at least an hour prior to checking blood pressure. Goal 130/80 Calcium Citrate (20 sources) take 2 capsules by mouth twice daily calcium citrate (CITRACAL ORAL) Take 2 capsules by mouth two times a day. Active take 2 capsules by mouth twice d aily calcium citrate (CITRACAL ORAL) Take 2 capsules by mouth two times a day. 0 Active calcium citrate (CITRACAL ORAL) Take by mouth. 0 Active Comment on above: Take by mouth. Take 2 capsules by m outh two times a day. CALCIUM-ERGOCALCIFEROL PO (20 sources) Start: 07-25-2023 CALCIUM-ERGOCALCIFEROL PO Take by mouth. 07/25/2023 Active clindamycin 0.01 mg/mg topical gel (20 sources) Lincosamide Antibacterial Start: 09-16-2022 clindamycin (CLEOCIN T) 1 % gel Indications: Dermatitis Apply to affected area once daily. 60 g 2 09/16/2022 Active Comment on above: Apply to affected ar ea once daily. 1 ml denosumab 60 mg/ml prefilled syringe (20 sources) RANK Ligand Inhibitor Start: 08-05-2021 denosumab (PROLIA) 60 mg/mL Inject subcutaneously once every 6 months. 08/05/2021 Active inject 60 mg by subcutaneous inj ection once denosumab (Prolia) 60 MG/ML solution prefilled syringe Inject 60 mg under the skin Once. Active Comment on above: Inject subcutaneousl y once every 6 months. docusate sodium 100 mg oral capsule (13 sources) Start: 03-12-2024 take 1 capsule by mouth every twelve hours as needed docusate sodium (COLACE) 100 mg capsule Take 1 capsule by mouth two times a day as needed for constipation. 60 capsule 2 03/12/2024 Active Start: 12-19-2023 End: 01-18-2024 take 1 capsule by mouth twice daily docusate sodium (Colace) 100 MG capsule Take 1 capsule (100 mg) by mouth 2 times daily. 60 capsule 12/19/2023 01/18/2024 Active enteric contrast (will be provided with radiology test) (1 source) Start: 01-17-2022 End: 01-17-2022 take 1 dose by mouth once, then take 1 dose by mouth once enteric contrast (will be provided with radiology test) Take 1 Each by mouth one time only for [address] ABD/PEL WO Routine order Administer, As Directed One Time Only, via Oral, Rectal, both Oral and Rectal, Enteric Tube, Stoma or Indwelling Catheter, Enteric Contrast as designated per enteric contrast guidelines 1 Each 0 01/17/2022 01/17/2022 Active Comment on above: Take 1 Each by mouth one time only for [address] ABD/PEL WO Routine order Administer, As Directed One Time Only, via Oral, Rectal, both Oral and Rectal, Enteric Tube, Stoma or Indwelling Catheter, Enteric Contrast as designated per enteric contrast guidelines ferrous sulfate 325 mg oral tablet (9 sources) Start: 02-19-2024 End: 02-18-2025 take 1 tablet by mouth twice daily at mealtime ferrous sulfate 325 mg (65 mg iron) tablet Indications: Iron deficiency anemia, unspecified iron deficiency anemia type Take 1 tablet by mouth two times a day with meals. 60 tablet 11 02/19/2024 02/18/2025 Active fluticasone / salmeterol (20 sources) Corticosteroid, beta2-Adrenergic Agonist Start: 08-29-2023 take 1 puff(s) by inhalation in the morning Fluticasone-Salme terol 250-50 MCG/ACT aerosol powder Inhale 1 puff in the morning and 1 puff in the evening. 08/29/2023 Active Start: 08-29-2023 take 1 puff(s) by in halation twice daily fluticasone-salmeterol (WIXELA INHUB) 250-50 mcg/dose inhaler Inhale 1 Puff as instructed two times a day. 1 Each 5 08/29/2023 Active Comment on above: Inhale 1 Puff as ins tructed two times a day. melatonin 3 mg oral tablet (20 sources) take 1 tablet by mouth once daily at bedtime melatonin 3 mg tablet Take 3 mg by mouth. qhs Active Comment on above: Take 3 mg by mouth. qhs Multiple Vitamins-Minerals (Centrum Ultra Womens) tablet (20 sources) Multiple Vitamins-Minerals (Centrum Ultra Womens) tablet Take by mouth daily. Active MULTIVITAMIN ORAL (20 sources) take 1 tablet by mouth once daily MULTIVITAMIN ORAL Take 1 tablet by mouth once daily. Active take 1 tablet by mouth once david y MULTIVITAMIN ORAL Take 1 tablet by mouth once daily. 0 Active Comment on above: Take 1 tablet by [place] once daily. perflutren lipid microspheres 1.3 mL in NaCl (PF) 0.9% 10 mL injection (DEFINITY) (20 sources) Start: 10-12-2021 End: 01-11-2023 perflutren lipid microspheres 1.3 mL in NaCl (PF) 0.9% 10 mL injection (DEFINITY) Completed/Discontinued Medications Medication Drug Class(es) Dates Sig (Normalized) Sig (Original) alendronic acid 70 mg oral tablet (3 sources) Bisphosphonate Start: 01-20-2017 FOSAMAX 70 MG TABS 1 per week ALENDRONATE SODIUM [id number] Burt Lima ALPRAZolam 0.25 mg disintegrating oral tablet (2 sources) Benzodiazepine Start: 12-19-2023 End: 12-19-2023 take 0.25 mg by mouth once as needed for anxiety 0.25 mg, Oral, Once PRN, anxiety, Starting on Mon12/19/23 at 1051, For 1 dose, Preprocedure, Please do not administer prior to obtaining consent and/or history and physical. Benzocaine (1 source) Standardized Chemical Allergen Start: 03-21-2024 End: 03-21-2024 1 [place], TOPICAL, DIRECTED, Starting on Juani 03/21/24 at 1200, Until [place] 03/21/24 at 1559, Dosing as directed for intraprocedural use only - Pharmaceutical Waste: Aerosol -, Intraprocedure 60 actuat budesonide 0.16 mg/actuat / formoterol fumarate 0.0045 mg/actuat metered dose inhaler (20 sources) Corticosteroid, beta2-Adrenergic Agonist Start: 01-10-2023 End: 11-28-2023 take 2 puff(s) by inhalation in the morning budesonide-formotero l (Symbicort) 160-4.5 MCG/ACT inhaler Inhale 2 puffs in the morning and 2 puffs in the evening. 01/10/2023 11/28/2023 Discontinued (Entered in error) Start: 01-10-2023 End: 11-20-2023 take 2 puff(s) by inhalation twice daily budesonide-formoterol (SYMBICORT) 160-4.5 mcg/actuation inhaler Inhale 2 Puffs as instructed twice daily. 10.2 g 5 01/10/2023 11/20/2023 Discontinued (Not on Formulary) Start: 01-10-2023 take 2 puff(s) by in halation twice daily budesonide-formoterol (SYMBICORT) 160-4.5 mcg/actuation inhaler Inhale 2 Puffs as instructed twice daily. 10.2 g 5 01/10/2023 Active Start: 01-10-2023 End: 07-09-2023 take 2 puff(s) by inhalation twice daily budesonide-formoterol (SYMBICORT) 160-4.5 mcg/actuation inhaler Inhale 2 Puffs as instructed twice daily. 10.2 g 5 01/10/2023 07/09/2023 Active Start: 06-15-2022 End: 01-10-2023 take 2 puff(s) by inhalation twice daily budesonide-formoterol (SYMBICORT) 160-4.5 mcg/actuation inhaler Inhale 2 Puffs as instructed twice daily. 10.2 g 5 06/15/2022 01/10/2023 Discontinued Start: 06-15-2022 End: 12-12-2022 take 2 puff(s) by inhalation twice daily budesonide-formoterol (SYMBICORT) 160-4.5 mcg/actuation inhaler Inhale 2 Puffs as instructed twice daily. 10.2 g 5 06/15/2022 12/12/2022 Active Start: 11-22-2021 End: 05-21-2022 take 2 puff(s) by inhalation twice daily budesonide-formoterol (SYMBICORT) 160-4.5 mcg/actuation inhaler Inhale 2 Puffs as instructed twice daily. 10.2 g 5 11/22/2021 05/21/2022 Active Start: 07-02-2021 End: 09-16-2021 take 2 puff(s) by inhalation twice daily budesonide-formoterol (SYMBICORT) 80-4.5 mcg/actuation inhaler Inhale 2 Puffs as instructed twice daily. 1 Inhaler 0 07/02/2021 09/16/2021 Discontinued Start: 07-02-2021 take 2 puff(s) by in halation twice daily budesonide-formoterol (SYMBICORT) 80-4.5 mcg/actuation inhaler Inhale 2 Puffs as instructed twice daily. 1 Inhaler 0 07/02/2021 Active Start: 03-30-2021 End: 11-22-2021 take 2 puff(s) by inhalation twice daily budesonide-formoterol (SYMBICORT) 160-4.5 mcg/actuation inhaler Inhale 2 Puffs as instructed twice daily. 10.2 g 5 03/30/2021 11/22/2021 Discontinued Start: 03-30-2021 take 2 puff(s) by in halation twice daily budesonide-formoterol (SYMBICORT) 160-4.5 mcg/actuation inhaler Inhale 2 Puffs as instructed twice daily. 10.2 g 5 03/30/2021 Active Start: 03-30-2021 End: 09-26-2021 take 2 puff(s) by inhalation twice daily budesonide-formoterol (SYMBICORT) 160-4.5 mcg/actuation inhaler Inhale 2 Puffs as instructed twice daily. 10.2 g 5 03/30/2021 09/26/2021 Active Start: 11-17-2020 End: 03-30-2021 take 2 puff(s) by inhalation twice daily budesonide-formoterol (SYMBICORT) 160-4.5 mcg/actuation inhaler Inhale 2 Puffs as instructed twice daily. 1 Inhaler 3 11/17/2020 03/30/2021 Discontinued Comment on above: Inhale 2 Puffs as in structed twice daily. calcium (3 sources) Phosphate Binder, Calcium Start: 01-21-20 take 1 tablet by mouth once daily CALCIUM 500 + D TABS One tablet by mouth daily CALCIUM CARBONATE-VITAMIN D TABS [id number] Burt Lima calcium chloride 0.0014 meq/ml / potassium chloride 0.004 meq/ml / sodium chloride 0.103 meq/ml / sodium lactate 0.028 meq/ml injectable solution (5 sources) Start: 03-21-20 End: 03-21-20 take 30 mL intravenously every hour 30 mL/hr, INTRAVENOUS, CONTINUOUS, Starting on Mon03/21/24 at 1100, Until Mon03/21/24 at 1208, Preprocedure Start: 12-19-2023 End: 12-19-2023 take 125 mL intravenously every hour 125 mL/hr, IntraVENous, Continuous, Starting on Mon12/19/23 at 1630, Recovery (only) calcium, elemental, tab (20 sources) Start: 09-18-2013 End: 11-17-2022 take 1 tablet by mouth twice daily calcium, elemental, tab Take 1 tablet by mouth twice daily. 0 09/18/2013 11/17/2022 Discontinued Start: 09-18-2013 take 1 tablet by [place] twice daily calcium, elemental, tab Take 1 tablet by mouth twice daily. 0 09/18/2013 Active Comment on above: Take 1 tablet by whitley th twice daily. cholecalciferol 1000 unt oral tablet (3 sources) Vitamin D Start: 01-21-20 take 1 tablet by mouth once daily VITAMIN D3 1000 UNIT TABS One tablet by mouth daily CHOLECALCIFEROL [id number] Burt Lima 24 hr dilTIAZem hydrochloride 180 mg extended release oral capsule (20 sources) Calcium Channel Tia Start: 10-23-19 take 1 capsule by mouth in the morning, then take 1 capsule by mouth every twenty-four hours dilTIAZem CD (Cardizem CD) 180 MG 24 hr capsule Take 180 mg by mouth in the morning. 10/23/2023 Active Start: 04-24-2023 End: 03-13-2024 take 1 capsule by mouth once daily dilTIAZem CD (CARDIZEM CD) 180 mg 24 hr capsule Indications: Essential hypertension Take 1 capsule by mouth once daily. 30 capsule 5 02/12/2024 03/13/2024 Discontinued Start: 10-18-2022 take 1 capsule by mo uth once daily dilTIAZem CD (CARDIZEM CD) 180 mg 24 hr capsule Indications: Essential hypertension Take 1 capsule by mouth once daily. 30 capsule 5 10/18/2022 Active Start: 04-18-2022 take 1 capsule by mo uth once daily dilTIAZem CD (CARDIZEM CD) 180 mg 24 hr capsule Indications: Essential hypertension Take 1 capsule by mouth once daily. 30 capsule 5 04/18/2022 Active Start: 02-28-2022 take 1 capsule by mo uth once daily dilTIAZem CD (CARDIZEM CD) 180 mg 24 hr capsule Indications: Essential hypertension Take 1 capsule by mouth once daily. 30 capsule 5 02/28/2022 Active Start: 02-17-2022 End: 02-17-2023 take 1 capsule by mouth once daily dilTIAZem CD (CARDIZEM CD) 240 mg 24 hr capsule Indications: Essential hypertension Take 1 capsule by mouth once daily. 90 capsule 3 02/17/2022 02/28/2022 Discontinued Start: 07-19-2021 End: 02-17-2022 take 1 capsule by mouth once daily dilTIAZem CD (CARDIZEM CD) 180 mg 24 hr capsule Indications: Essential hypertension Take 1 capsule by mouth once daily. 30 capsule 5 07/19/2021 12/17/2021 Discontinued Start: 07-23-2020 End: 01-15-2021 take 1 capsule by mouth once daily dilTIAZem CD (CARDIZEM CD) 180 mg 24 hr capsule Indications: Essential hypertension Take 1 capsule by mouth once daily. 30 capsule 5 07/23/2020 01/15/2021 Discontinued Comment on above: Take 1 capsule by mo uth once daily. diphenhydrAMINE (3 sources) Histamine-1 Receptor Antagonist Start: 03-21-2024 End: 03-21-2024 12.5-50 mg, INTRAVENOUS, DIRECTED, Starting on Mon03/21/24 at 1200, Until Mon03/21/24 at 1559, DOSING DIRECTED BY PHYSICIAN FOR PROCEDURAL SEDATION ONLY, Intraprocedure Start: 12-19-2023 End: 12-19-2023 12.5 mg, IntraVENous, Once P RN, itching, Starting on Mon12/19/23 at 1626, For 1 dose, Recovery (only) 1 ml fentaNYL 0.05 mg/ml injection (1 source) Opioid Agonist Start: 03-21-2024 End: 03-21-2024 25-100 mcg, INTRAVENOUS, DIRECTED, Starting on Mon03/21/24 at 1200, Until Juani 03/21/24 at 1559, DOSING DIRECTED BY PHYSICIAN FOR PROCEDURAL SEDATION ONLY, Intraprocedure folic acid 1 mg oral tablet (3 sources) Start: 01-20-2017 take 2 tablets by mouth once daily FOLIC ACID 1 MG TABS Two tablets by mouth daily FOLIC ACID [id number] [facility] Rupesh Janie 60 actuat formoterol fumarate 0.005 mg/actuat / mometasone furoate 0.1 mg/actuat metered dose inhaler (20 sources) Corticosteroid , beta2-Adrenerg ic Agonist Start: 04-24-2023 End: 11-28-2023 take 2 puff(s) by inhalation in the morning mometasone-formotero l (Dulera 100) 100-5 MCG/ACT inhaler Inhale 2 puffs in the morning and 2 puffs in the evening. 04/24/2023 11/28/2023 Discontinued (Entered in error) Start: 04-24-2023 End: 11-20-2023 take 2 puff(s) by inhalation twice daily mometasone-formoterol (DULERA) 100-5 mcg/actuation inhaler Inhale 2 Puffs as instructed two times a day. 1 Each 04/24/2023 11/20/2023 Discontinued (Not on Formulary) Comment on above: Inhale 2 Puffs as in structed two times a day. furosemide 20 mg oral tablet (19 sources) Loop Diuretic Start: 10-14-19 End: 02-18-20 take 1 tablet by mouth once daily furosemide (LASIX) 20 mg tablet Take 1 tablet by mouth once daily. 3 tablet 0 10/13/2021 02/17/2022 Discontinued Comment on above: Take 1 tablet by whitley th once daily. TRIAMTERENE-HCTZ (3 sources) Potassium-sparing Diuretic, Thiazide Diuretic Start: 01-21-20 take 1 tablet by mouth once daily DYAZIDE 37.5-25 MG CAPS One tablet by mouth daily TRIAMTERENE-HCTZ [id number] Burt Lima 1 ml HYDROmorphone hydrochloride 1 mg/ml cartridge (2 sources) Opioid Agonist Start: 12-19-19 End: 12-19-19 0.25 mg, IntraVENous, Every 5 min PRN, moderate pain (4-6), Starting on Mon12/19/23 at 1626, For 4 doses, Recovery (only), Phase I and Phase II- Initial therapy for moderate pain (4-6). Restricted to a 90 minute time frame starting when the patient can verbally state their pain score. If after 2 doses the pain score does not decrease by more than one point, then call the provider. If oral meds are utilized, do not return to initial therapy medications. labetalol (Normodyne,Trandate) injection 5 mg (2 sources) Start: 12-19-19 End: 12-19-19 labetalol (Normodyne,Trandate) injection 5 mg 1 ml LORazepam 2 mg/ml injection (3 sources) Benzodiazepine Start: 12-19-19 End: 12-19-19 0.5 mg, IntraVENous, Once PRN, for anxiety or muscle spasm., Starting on Mon12/19/23 at 1626, For 1 dose, Recovery (only), For IV doses dilute dose with 1ml NS. Start: 05-15-2023 End: 05-15-2023 take 1 tablet by mouth once, then take 1 tablet by mouth every hour LORazepam (ATIVAN) 0.5 mg Indications: Monoclonal gammopathy Take 1 tablet by mouth one time only for 1 dose. about 1 hour prior to bone marrow biopsy. 1 tablet 0 05/15/2023 05/15/2023 Active Comment on above: Take 1 tablet by whitley th one time only for 1 dose. about 1 hour prior to bone marrow biopsy. 5 ml midazolam 1 mg/ml injection (1 source) Benzodiazepine Start: End: 1-5 mg, INTRAVENOUS, DIRECTED, Starting on Juani 03/21/24 at 1200, Until [place] 03/21/24 at 1559, DOSING DIRECTED BY PHYSICIAN FOR PROCEDURAL SEDATION ONLY, Intraprocedure MULTIPLE VITAMIN (3 sources) Start: take 1 tablet by mouth once daily MULTIPLE VITAMIN TABS One tablet by mouth daily MULTIPLE VITAMIN [id number] Burt Lima nitrofurantoin, macrocrystals 25 mg / nitrofurantoin, monohydrate 75 mg oral capsule (4 sources) Nitrofuran Antibacterial End: take 1 capsule by mouth twice daily nitrofurantoin monohydrate and macrocrystal (MACROBID) 100 mg capsule Take 100 mg by mouth twice daily. 0 03/18/2022 Discontinued Comment on above: Take 100 mg by mouth twice daily. 2 ml ondansetron 2 mg/ml injection (2 sources) Serotonin-3 Receptor Antagonist Start: End: 4 mg, IntraVENous, Once PRN, nausea, Starting on Mon12/19/23 at 1626, For 1 dose, Recovery (only), Initial antiemetic therapy. oxyCODONE hydrochloride 5 mg oral tablet (4 sources) Opioid Agonist Start: End: 5 mg, Oral, PRN, moderate pain (4-6), Starting on Mon12/19/23 at 1626, For 1 dose, Recovery (only), PHASE II Pediatric Multiple Vitamins (pediatric multivitamin) tablet chewable split tablet (6 sources) End: take 1 tablet by mouth in the morning Pediatric Multiple Vitamins (pediatric multivitamin) tablet chewable split tablet Take 1 tablet by mouth in the morning. 11/28/2023 Discontinued (Entered in error) take 1 tablet by mouth in the mo rning Pediatric Multiple Vitamins (pediatric multivitamin) tablet chewable split tablet Take 1 tablet by mouth in the morning. Active phenazopyridine hydrochloride 200 mg oral tablet (4 sources) End: 03-18-2022 take 1 tablet by mouth every eight hours as needed phenazopyridine (PYRIDIUM) 200 mg tablet Take 200 mg by mouth three times daily as needed. 0 03/18/2022 Discontinued Comment on above: Take 200 mg by mouth three times daily as needed. predniSONE 50 mg oral tablet (15 sources) Start: 11-24-2023 End: 12-14-2023 predniSONE (Deltasone) 50 MG tablet Indications: Pelvic mass in female , Allergy history, radiographic dye Take 1 tablet 13 hours, 7 hours and [address] scan. 3 tablet 2 11/24/2023 12/14/2023 Discontinued (Therapy completed) Start: 09-07-2021 End: 09-12-2021 take 2 tablets by mouth once daily predniSONE (DELTASONE) 20 mg tablet Take 2 tablets by mouth once daily for 5 days. 10 tablet 0 09/07/2021 09/12/2021 Active Comment on above: Take 2 tablets by [facility] once daily for 5 days. regadenoson 0.4 mg injection (LEXISCAN) (2 sources) Start: 10-16-2023 End: 10-16-2023 regadenoson 0.4 mg injection (LEXISCAN) 5 ml sodium chloride 9 mg/ml injection (20 sources) Start: 12-19-2023 End: 12-19-2023 10 mL, IntraVENous, Every 12 hours scheduled (2 times per day), First dose on Mon12/19/23 at 2100, Recovery (only) Start: 12-19-2023 End: 12-19-2023 500 mL, IntraVENous, at 1,00 0 mL/hr, Administer over 0.5 Hours, PRN, Anti-nausea, Starting on Mon12/19/23 at 1626, Recovery (only), Indications: Anti-nausea Start: 12-19-2023 End: 12-19-2023 take 100 mL intravenously every hour as needed, then take 20 mL intravenously every hour as needed 5-250 mL/hr, IntraVENous, PRN, if patient receiving piggyback infusions and maintenance fluids are not ordered OR KVO fluids to protect IV site / prevent frequent line interruptions/ long duration, Starting on Mon12/19/23 at 1626, Recovery (only), For piggyback infusion, administer at same rate as piggyback for a total of 25 mL. Enter 25 mL into dose field and piggyback rate into rate field of order. If piggyback is infusing at a rate less than 100 mL/hr, enter 25 mL into dose field and 100 mL/hr into rate field of order. For KVO fluids, enter rate of 20 mL/hr or less into rate field of order. Start: 12-19-2023 End: 12-19-2023 take 10 mL intravenously once as needed 10 mL, IntraVENous, PRN, line care, Starting on Mon12/19/23 at 1626, Recovery (only), After every IV line use Start: 12-19-2023 End: 12-19-2023 take 5-40 mL intravenously every twelve hours 5-40 mL, IntraVENous, Every 12 hours, First dose on Mon12/19/23 at 1100, Preprocedure, For Line Patency: Peripheral IV = 5 mL; Midline or Central Line = 10 mL/lumen. If following IV push medication, administer flush at same rate as the IV push. Flush volume is determined by type of infusion therapy being given. For non-viscous solutions use: Peripheral IV = 5 mL Midline or Central Line = 10 mL/lumen For viscous solutions (i.e. blood components, parenteral nutrition, contrast media, or after obtaining blood sample) use: Peripheral IV = 10 mL Midline or Central Line = 20 mL/lumen Start: 10-12-2021 End: 01-11-2023 sodium chloride 0.9 % (flush ) 10 mL (BD POSIFLUSH) vitamin b 12 0.5 mg oral tablet (3 sources) Vitamin B12 Start: 01-20-2017 take 1 tablet by mouth once daily B-12 500 MCG TABS One tablet by mouth daily CYANOCOBALAMIN [id number] B[facility] [place] Problems Active Problems Problem Classification Problem Date Documented Da te Episodic/Chronic Allergic reactions (2 sources) Inflammatory dermatosis; Translations: [Dermatitis, unspecified] Episodic Asthma (20 sources) Mild intermittent asthma; Translations: [Mild intermittent asthma, uncomplicated] Onset: 2 Resolved: 1 Chronic Cardiac dysrhythmias (20 sources) Supraventricular tachycardia; Translations: [Supraventricular tachycardia] Onset: 0 01-14-2020 Chronic Chronic obstructive pulmonary disease and bronchiectasis (2 sources) Chronic obstructive lung disease; Translations: [Chronic obstructive pulmonary disease, unspecified] Onset: 4 02-12-2024 Chronic Coronary atherosclerosis and other heart disease (1 source) Stable angina; Translations: [Stable angina pectoris (HCC)] 09-04-2023 Chronic Deficiency and other anemia (1 source) Anemia; Translations: [Anemia, unspecified] 02-14-2024 Episodic Deficiency and other anemia (7 sources) Iron deficiency anemia; Translations: [Iron deficiency anemia, unspecified] Onset: 4 03-12-2024 Episodic Deficiency and other anemia (1 source) Iron deficiency anemia, unspecified; Translations: [Iron deficiency anemia, unspecified iron deficiency anemia type] Onset: 4 Episodic Deficiency and other anemia (1 source) Anemia, unspecified; Translations: [Anemia, unspecified type] Onset: 4 Episodic Diabetes mellitus without complication (1 source) Hyperglycemia; Translations: [Hyperglycemia, unspecified] Episodic Essential hypertension (20 sources) Essential hypertension; Translations: [Essential (primary) hypertension] Onset: 6 03-25-2015 Chronic Genitourinary symptoms and ill-defined conditions (5 sources) Female stress incontinence; Translations: [Stress incontinence (female) (male)] Onset: 4 11-30-2023 Chronic Heart valve disorders (20 sources) Non-rheumatic mitral regurgitation ; Translations: [Nonrheumatic mitral (valve) insufficiency] Onset: 9 Resolved: 3 07-21-2016 Chronic Hemorrhoids (3 sources) Anal skin tag; Translations: [Residual hemorrhoidal skin tags] Onset: 4 02-06-2024 Episodic Menopausal disorders (20 sources) Atrophic vaginitis; Translations: [Postmenopausal atrophic vaginitis] Onset: 5 01-09-2015 Chronic Miscellaneous mental health disorders (20 sources) Psychophysiologic insomnia; Translations: [Psychophysiologic insomnia] Onset: 2 10-26-2011 Chronic Neoplasms of unspecified nature or uncertain behavior (20 sources) Monoclonal gammopathy (clinical); Translations: [Monoclonal gammopathy] Onset: 7 08-09-2018 Chronic Nutritional deficiencies (2 sources) Vitamin D deficiency; Translations: [Vitamin D deficiency, unspecified] Chronic Occlusion or stenosis of precerebral arteries (20 sources) Bilateral stenosis of carotid arteries; Translations: [Occlusion and stenosis of bilateral carotid arteries] Onset: 9 10-29-2020 Chronic Osteoporosis (20 sources) Osteoporosis; Translations: [Age-related osteoporosis without current pathological fracture] Onset: 2 Resolved: 4 07-21-2016 Chronic Other acquired deformities (1 source) Scoliosis, unspecified; Translations: [Restrictive 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] Onset: 6 Chronic Other aftercare (1 source) Surgical follow-up; Translations: [Encounter for follow-up examination after completed treatment for conditions other than malignant neoplasm] 02-06-2024 Episodic Other aftercare (2 sources) Encounter for follow-up examination after completed treatment for conditions other than malignant neoplasm; Translations: [Encounter for follow-up examination after completed treatment for conditions other than malignant neoplasm] Onset: 4 Episodic Other bone disease and musculoskeletal deformities (20 sources) Idiopathic kyphoscoliosis; Translations: [Other idiopathic scoliosis, site unspecified] Onset: 1 03-18-2021 Chronic Other connective tissue disease (1 source) Tendonitis of left shoulder; Translations: [Other enthesopathies, not elsewhere classified] Episodic Other connective tissue disease (1 source) Swelling of lower limb; Translations: [Other specified soft tissue disorders] 11-24-2020 Episodic Other diseases of bladder and urethra (1 source) Overactive bladder; Translations: [Overactive bladder] 02-06-2024 Chronic Other diseases of bladder and urethra (2 sources) Overactive bladder; Translations: [Overactive bladder] Onset: 4 Chronic Other diseases of kidney and ureters (1 source) Cyst of kidney; Translations: [Cyst of kidney, acquired] Episodic Other gastrointestinal disorders (2 sources) Pelvic mass; Translations: [Intra-abdominal and pelvic swelling, mass and lump, unspecified site] 11-19-2023 Episodic Other gastrointestinal disorders (6 sources) Occult blood in stools; Translations: [Other fecal abnormalities] Onset: 4 02-19-2024 Episodic Other gastrointestinal disorders (1 source) Other fecal abnormalities; Translations: [Heme positive stool] Onset: Episodic Other injuries and conditions due to external causes (2 sources) Other injury of unspecified muscle, fascia and tendon at shoulder and upper arm level, unspecified arm, initial encounter; Translations: [Shoulder and upper arm injury] Episodic Other injuries and conditions due to external causes (1 source) Injury of rotator cuff; Translations: [Unspecified injury of muscle(s) and tendon(s) of the rotator cuff of unspecified shoulder, initial encounter] Episodic Other lower respiratory disease (1 source) Dyspnea; Translations: [Shortness of breath] 11-24-2020 Episodic Other nervous system disorders (2 sources) Postoperative pain ; Translations: [Other acute postprocedural pain] 12-19-2023 Episodic Other non-traumatic joint disorders (1 source) Shoulder pain; Translations: [Pain in unspecified shoulder] Episodic Other non-traumatic joint disorders (1 source) Pain in right hip joint; Translations: [Pain in right hip] Episodic Other non-traumatic joint disorders (1 source) Hip pain; Translations: [Pain in right hip] 09-16-2021 Episodic Other non-traumatic joint disorders (1 source) Pain in left shoulder; Translations: [Pain in joint, shoulder region] 09-07-2021 Episodic Other nutritional; endocrine; and metabolic disorders (20 sources) Hypercalcemia; Translations: [Hypercalcemia] Onset: 9 08-09-2018 Chronic Other nutritional; endocrine; and metabolic disorders (1 source) Glucose transport defect; 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)] 09-04-2023 Chronic Other nutritional; endocrine; and metabolic disorders (1 source) Hypercalcemia; Translations: [Hypercalcemia] Onset: 4 Chronic Other nutritional; endocrine; and metabolic disorders (13 sources) Weight loss; Translations: [Abnormal weight loss] Onset: 4 Episodic Other nutritional; endocrine; and metabolic disorders (1 source) Abnormal weight loss; Translations: [Weight loss] Onset: 4 Episodic Other screening for suspected conditions (not mental disorders or infectious disease) (20 sources) Radiology result abnormal; Translations: [Abnormal findings on diagnostic imaging of other specified body structures] Onset: 4 11-19-2023 Chronic Other screening for suspected conditions (not mental disorders or infectious disease) (20 sources) Patient encounter status; Translations: [Encounter for other screening for malignant neoplasm of breast] Onset: 1 Resolved: 1 Episodic Renetta-; endo-; and myocarditis; cardiomyopathy (except that caused by tuberculosis or sexually transmitted disease) (20 sources) Cardiomyopathy; Translations: [Other cardiomyopathies] Onset: 9 01-28-2019 Chronic Prolapse of female genital organs (20 sources) Incomplete uterovaginal prolapse; Translations: [Incomplete uterovaginal prolapse] Onset: 5 Resolved: 9 01-24-2017 Chronic Residual codes; unclassified (20 sources) Family history of cancer of colon; Translations: [Family history of malignant neoplasm of digestive organs] Onset: 2 05-31-2021 Episodic Residual codes; unclassified (1 source) Swelling; Translations: [Edema, unspecified] Episodic Residual codes; unclassified (1 source) Edema; Translations: [Edema, unspecified] Episodic Residual codes; unclassified (1 source) Mild memory disturbance ; Translations: [Other amnesia] Episodic Residual codes; unclassified (1 source) Forgetful; Translations: [Other general symptoms and signs] Episodic Residual codes; unclassified (1 source) Postoperative state; Translations: [Other specified postprocedural states] 01-01-2024 Episodic Residual codes; unclassified (2 sources) Other specified postprocedural states; Translations: [Other specified postprocedural states] Onset: 4 Episodic Screening and history of mental health and substance abuse codes (2 sources) Encounter for screening examination for other mental health and behavioral disorders; Translations: [Encounter for screening for depression] Onset: 4 Episodic Thyroid disorders (20 sources) Multinodular goiter; Translations: [Nontoxic multinodular goiter] Onset: 2 10-30-2020 Chronic Unclassified (2 sources) Gynecologic examination ; Translations: [Encounter for gynecological examination (general) (routine) with abnormal findings] Onset: 7 01-24-2017 Unclassified (1 source) No current problems or disability 01-20-2017 Unclassified (1 source) Other disorders of glucose transport (HCC); 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)] Onset: Past or Other Problems Problem Classification Problem Date Documented Da te Episodic/Chronic Conditions associated with dizziness or vertigo (20 sources) Dizziness; Translations: [Dizziness and giddiness] Onset: 11-17-2022 11-17-2022 Episodic Fracture of upper limb (20 sources) Closed fracture of lower end of radius AND ulna; Translations: [Unspecified fracture of the lower end of unspecified radius, initial encounter for closed fracture] Onset: 03-18-2022 03-18-2022 Episodic Genitourinary symptoms and ill-defined conditions (11 sources) Microscopic hematuria; Translations: [Other microscopic hematuria] Onset: 11-28-2023 Episodic Heart valve disorders (20 sources) Heart murmur; Translations: [Cardiac murmur, unspecified] Onset: 10-05-2020 Resolved: 09-16-2021 10-05-2020 Episodic Nonspecific chest pain (20 sources) Precordial pain; Translations: [Precordial pain] Onset: 01-28-2019 Resolved: 09-16-2022 01-28-2019 Episodic Osteoarthritis (20 sources) Degenerative joint disease involving multiple joints; Translations: [Polyosteoarthritis, unspecified] Onset: 11-18-2005 Resolved: 07-03-2015 07-03-2015 Chronic Other bone disease and musculoskeletal deformities (20 sources) Disorder of skeletal system; Translations: [Disorder of bone, unspecified] Resolved: 12-04-2019 05-31-2021 Episodic Other connective tissue disease (20 sources) Trochanteric bursitis; Translations: [Trochanteric bursitis, unspecified hip] Onset: 03-18-2022 Resolved: 09-16-2022 03-18-2022 Episodic Other connective tissue disease (20 sources) Bursitis of right shoulder; Translations: [Bursitis of right shoulder] Onset: 10-10-2011 Resolved: 08-09-2018 08-09-2018 Episodic Other connective tissue disease (20 sources) Muscle weakness; Translations: [Muscle weakness (generalized)] Onset: 02-16-2015 Resolved: 07-21-2016 07-21-2016 Episodic Other diseases of kidney and ureters (20 sources) Acquired renal cystic disease; Translations: [Cyst of kidney, acquired] Onset: 02-18-2022 03-18-2022 Episodic Other gastrointestinal disorders (20 sources) Finding of abdominopelvic segment of trunk; Translations: [Intra-abdominal and pelvic swelling, mass and lump, unspecified site] Onset: 11-28-2023 11-30-2023 Episodic Other gastrointestinal disorders (1 source) Intra-abdominal and pelvic swelling, mass and lump, unspecified site; Translations: [Intra-abdominal and pelvic swelling, mass and lump, unspecified site] Onset: 11-30-2023 Episodic Other lower respiratory disease (20 sources) Restrictive 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; Translations: [Other disorders of lung] Onset: 07-31-2015 07-31-2015 Episodic Other lower respiratory disease (20 sources) Dyspnea on exertion; Translations: [Dyspnea, unspecified] Onset: 05-31-2019 Resolved: 09-16-2022 05-31-2019 Episodic Other lower respiratory disease (1 source) Other disorders of lung; Translations: [Restrictive 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] Onset: 07-31-2015 Episodic Other nervous system disorders (2 sources) Other acute postprocedural pain; Translations: [Other acute postprocedural pain] Onset: 12-19-2023 Episodic Other upper respiratory disease (20 sources) Bleeding from nose; Translations: [Epistaxis] Onset: 11-17-2022 Resolved: 06-13-2023 11-17-2022 Episodic Pulmonary heart disease (20 sources) Pulmonary embolism with pulmonary infarction; Translations: [Other pulmonary embolism without acute cor pulmonale] Onset: 07-25-2012 Resolved: 07-21-2016 07-21-2016 Episodic Residual codes; unclassified (1 source) Family history of malignant neoplasm of digestive organs; Translations: [Family history of colon cancer] Onset: 05-31-2021 Episodic Spondylosis; intervertebral disc disorders; other back problems (20 sources) Neck pain; Translations: [Cervicalgia] Onset: 08-28-2007 Resolved: 08-09-2018 05-31-2021 Episodic Results Test Name Value Interpretation Reference Range Facility [id number] 03-21-2024 [id number] HNO ID: [id number] Author: EMMA BARCENAS RN Service: ? Author Type: Registered Nurse Type: [id number] Filed: 03/21/2024 12:25 Note Text: The patient received a copy of Colonoscopy and EGD discharge instructions that contain information for how to contact the physician who performed the procedure and when to seek medical care. Normal [facility] Colonoscopyon 03-21-2024 Colonoscopy [facility] Gastrointestinal Endoscopy Patient Name: Vandana Mitchell Procedure Date: 03/21/2024 11:26 AM Date of : 1950 Admit Type: Outpatient Age: 73 Gender: Female Note Status: Finalized Procedure: Colonoscopy Indications: Unexplained iron deficiency anemia Providers: Daryl Hamlin MD Patient Profile: This is a 73 year old female. Refer to note in patient chart for documentation of history and physical. Last Colonoscopy: September 2020. Referring Physician: Daryl Hamlin MD (Referring MD) Medicines: Fentanyl 100 micrograms IV, Midazolam 5 mg IV, Diphenhydramine 50 mg IV Complications: No immediate complications. Estimated blood loss: None. Requesting Provider: Markus Rascon Procedure: Pre-Anesthesia Assessment: - Prior to the procedure, a History and Physical was performed, and patient medications and allergies were reviewed. The patient's tolerance of previous anesthesia was also reviewed. The risks and benefits of the procedure and the sedation options and risks were discussed with the patient. All questions were answered, and informed consent was obtained. Prior Anticoagulants: The patient has taken no anticoagulant or antiplatelet agents. ASA Grade Assessment: II - A patient with mild systemic disease. After reviewing the risks and benefits, the patient was deemed in satisfactory condition to undergo the procedure. After I obtained informed consent, the scope was passed under direct vision. Throughout the procedure, the patient's blood pressure, pulse, and oxygen saturations were monitored continuously. The Colonoscope was introduced through the anus and advanced to 3 cm into the ileum. The colonoscopy was performed without difficulty. The patient tolerated the procedure well. The quality of the bowel preparation was good. The terminal ileum, ileocecal valve, appendiceal orifice, and rectum were photographed. Moderate Sedation: The administration of moderate sedation was initiated at 11:33 AM. Moderate (conscious) sedation was personally administered by the endoscopist. The following parameters were monitored: oxygen saturation, heart rate, blood pressure, respiratory rate, EKG, adequacy of pulmonary ventilation, and response to care. Total physician intraservice time was 27 minutes. Findings: The perianal and digital rectal examinations were normal. Non-bleeding internal hemorrhoids were found during retroflexion. The hemorrhoids were mild and small. Multiple medium-mouthed and small-mouthed diverticula were found in the sigmoid colon and descending colon. The terminal ileum appeared normal. Impression: - Non-bleeding internal hemorrhoids. - Diverticulosis in the sigmoid colon and in the descending colon. - The examined portion of the ileum was normal. - No specimens collected. Recommendation: - Patient has a contact number available for emergencies. The signs and symptoms of potential delayed complications were discussed with the patient. Return to normal activities tomorrow. Written discharge instructions were provided to the patient. - Resume previous diet. - Continue present medications. - Repeat colonoscopy in 10 years for screening purposes. - Return to nurse practitioner at appointment to be scheduled. Procedure Code(s): --- Professional --- 58555, Colonoscopy, flexible; diagnostic, including collection of specimen(s) by brushing or washing, when performed (separate procedure) G0500, Moderate sedation services provided by the same physician or other qualified health home care attendant performing a gastrointestinal endoscopic service that sedation supports, requiring the presence of an independent trained observer to assist in the monitoring of the patient's level of consciousness and physiological status; initial 15 minutes of intra-service time; patient age 5 years or older (additional time may be reported with 85063, as appropriate) 58763, Moderate sedation; each additional 15 minutes intraservice time Diagnosis Code(s): --- Professional --- K64.8, Other hemorrhoids D50.9, Iron deficiency anemia, unspecified K57.30, Diverticulosis of large intestine without perforation or abscess without bleeding CPT copyright 2020 [employer]. All rights reserved. The codes documented in this report are preliminary and upon manufacturing controller review may be revised to meet current compliance requirements. Attending Participation: I personally performed the entire procedure. Scope In: 11:44:08 AM Scope Out: 12:00:11 PM MD Daryl Pineda MD 03/21/2024 12:09:23 PM This report has been signed electronically by Daryl Hamlin MD Number of Addenda: 0 Note Initiated On: 03/21/2024 11:26 AM Estimated Blood Loss: Estimated blood loss: none. Normal [facility] EGD Study observation Bao patel 03-21-2024 [facility] Gastrointestinal Endoscopy Patient Name: Vandana Mitchell Procedure Date: 03/21/2024 11:26 AM Date of : 1950 Admit Type: Outpatient Age: 73 Gender: Female Note Status: Finalized Procedure: Upper GI endoscopy Indications: Suspected upper gastrointestinal bleeding Providers: Daryl Hamlin MD Patient Profile: This is a 73 year old female. Refer to note in patient chart for documentation of history and physical. Referring Physician: Daryl Hamlin MD (Referring MD) Medicines: Fentanyl 100 micrograms IV, Midazolam 5 mg IV, Diphenhydramine 50 mg IV Complications: No immediate complications. Estimated blood loss: Minimal. Requesting Provider: Procedure: Pre-Anesthesia Assessment: - Prior to the procedure, a History and Physical was performed, and patient medications and allergies were reviewed. The patient's tolerance of previous anesthesia was also reviewed. The risks and benefits of the procedure and the sedation options and risks were discussed with the patient. All questions were answered, and informed consent was obtained. Prior Anticoagulants: The patient has taken no anticoagulant or antiplatelet agents. ASA Grade Assessment: II - A patient with mild systemic disease. After reviewing the risks and benefits, the patient was deemed in satisfactory condition to undergo the procedure. After obtaining informed consent, the endoscope was passed under direct vision. Throughout the procedure, the patient's blood pressure, pulse, and oxygen saturations were monitored continuously. The Endoscope was introduced through the mouth, and advanced to the second part of duodenum. The upper GI endoscopy was accomplished without difficulty. The patient tolerated the procedure well. Moderate Sedation: The administration of moderate sedation was initiated at 11:33 AM. Moderate (conscious) sedation was personally administered by the endoscopist. The following parameters were monitored: oxygen saturation, heart rate, blood pressure, respiratory rate, EKG, adequacy of pulmonary ventilation, and response to care. Total physician intraservice time was 27 minutes. Findings: The Z-line was irregular and was found 38 cm from the incisors. Biopsies were taken with a cold forceps for histology. The entire examined stomach was normal. Biopsies were taken with a cold forceps for Helicobacter pylori testing. The examined duodenum was normal. Biopsies for histology were taken with a cold forceps for evaluation of celiac disease. Impression: - Z-line irregular, 38 cm from the incisors. Biopsied. - Normal stomach. Biopsied. - Normal examined duodenum. Biopsied. Recommendation: - Patient has a contact number available for emergencies. The signs and symptoms of potential delayed complications were discussed with the patient. Return to normal activities tomorrow. Written discharge instructions were provided to the patient. - Resume previous diet. - Continue present medications. - Await pathology results. - Repeat upper endoscopy PRN for surveillance. - Return to nurse practitioner at appointment to be scheduled. Procedure Code(s): --- Professional --- 18209, Esophagogastroduodenosc opy, flexible, transoral; with biopsy, single or multiple G0500, Moderate sedation services provided by the same physician or other qualified health home care attendant performing a gastrointestinal endoscopic service that sedation supports, requiring the presence of an independent trained observer to assist in the monitoring of the patient's level of consciousness and physiological status; initial 15 minutes of intra-service time; patient age 4 ye (more content not included)... PROVATION [facility] Flexible sigmoidoscopy study on 03-21-2024 [facility] Gastrointestinal Endoscopy Patient Name: Vandana Mitchell Procedure Date: 03/21/2024 11:26 AM Date of : 1950 Admit Type: Outpatient Age: 73 Gender: Female Note Status: Finalized Procedure: Colonoscopy Indications: Unexplained iron deficiency anemia Providers: Daryl Hamlin MD Patient Profile: This is a 73 year old female. Refer to note in patient chart for documentation of history and physical. Last Colonoscopy: September 2020. Referring Physician: Daryl Hamlin MD (Referring MD) Medicines: Fentanyl 100 micrograms IV, Midazolam 5 mg IV, Diphenhydramine 50 mg IV Complications: No immediate complications. Estimated blood loss: None. Requesting Provider: Markus Rascon Procedure: Pre-Anesthesia Assessment: - Prior to the procedure, a History and Physical was performed, and patient medications and allergies were reviewed. The patient's tolerance of previous anesthesia was also reviewed. The risks and benefits of the procedure and the sedation options and risks were discussed with the patient. All questions were answered, and informed consent was obtained. Prior Anticoagulants: The patient has taken no anticoagulant or antiplatelet agents. ASA Grade Assessment: II - A patient with mild systemic disease. After reviewing the risks and benefits, the patient was deemed in satisfactory condition to undergo the procedure. After I obtained informed consent, the scope was passed under direct vision. Throughout the procedure, the patient's blood pressure, pulse, and oxygen saturations were monitored continuously. The Colonoscope was introduced through the anus and advanced to 3 cm into the ileum. The colonoscopy was performed without difficulty. The patient tolerated the procedure well. The quality of the bowel preparation was good. The terminal ileum, ileocecal valve, appendiceal orifice, and rectum were photographed. Moderate Sedation: The administration of moderate sedation was initiated at 11:33 AM. Moderate (conscious) sedation was personally administered by the endoscopist. The following parameters were monitored: oxygen saturation, heart rate, blood pressure, respiratory rate, EKG, adequacy of pulmonary ventilation, and response to care. Total physician intraservice time was 27 minutes. Findings: The perianal and digital rectal examinations were normal. Non-bleeding internal hemorrhoids were found during retroflexion. The hemorrhoids were mild and small. Multiple medium-mouthed and small-mouthed diverticula were found in the sigmoid colon and descending colon. The terminal ileum appeared normal. Impression: - Non-bleeding internal hemorrhoids. - Diverticulosis in the sigmoid colon and in the descending colon. - The examined portion of the ileum was normal. - No specimens collected. Recommendation: - Patient has a contact number available for emergencies. The signs and symptoms of potential delayed complications were discussed with the patient. Return to normal activities tomorrow. Written discharge instructions were provided to the patient. - Resume previous diet. - Continue present medications. - Repeat colonoscopy in 10 years for screening purposes. - Return to nurse practitioner at appointment to be scheduled. Procedure Code(s): --- Professional --- 76271, Colonoscopy, flexible; diagnostic, including collection of specimen(s) by brushing or washing, when performed (separate procedure) G0500, Moderate sedation services provided by the same physician or other qualified health home care attendant performing a gastrointestinal endoscopic service that sedation supports, re (more content not included)... PROVATION [facility] HISTORY PHYSICALon HISTORY PHYSICAL HNO ID: [id number] Author: DARYL HAMLIN MD Service: General Surgery Author Type: Physician Type: H&P Filed: 03/21/2024 11:24 Note Text: HISTORY AND PHYSICAL Vandana Mitchell 1950 REFERRING PHYSICIAN: Markus Rascon MD CHIEF COMPLAINT: Consult (Iron deficiency anemia, unspecified iron deficiency anemia type [D50.9]; Family history of colon cancer [Z80.0]; Weight loss [R63.4]; Heme positive stool [R19.5]/) HPI: The patient is a 73 year old female referred for endoscopy. Vandana notes no history of colon complaints. The patient notes no history of upper GI complaints. Patient was noted to be anemic as well as losing weight steadily over the last 6 months. Vandana has undergone prior endoscopy. 2020 The patient is being seen by me today at the request of Dr. Markus Rascon MD for my opinion and advice regarding Iron deficiency anemia, unspecified iron deficiency anemia type Family history of colon cancer Weight loss Heme positive stool. PAST MEDICAL HISTORY PAST MEDICAL HISTORY Diagnosis Date Arthritis Diastolic dysfunction Grade I Disorder of bone and cartilage, unspecified Diverticulosis 2009 colonoscopy History of transfusion HOCM (hypertrophic obstructive cardiomyopathy) (HCC) Insomnia, unspecified Melanocytic Nevocellular Nevi pigmented moles of trunk: back mainly 08/02/2011 Mitral valve disorders Monoclonal gammopathy 04/2017 Osteoporosis Other diseases of lung, not elsewhere classified restrictive lung disease Other pulmonary embolism and infarction 07/25/2012 ? had pe with normal d dimer. saw pulmonary. not convinced she did have one. Renal cyst Small airways disease Possible asthma. Patient unable to perform definitive test SVT (supraventricular tachycardia) (HCC) 01/14/2020 Unspecified essential hypertension PAST SURGICAL HISTORY PAST SURGICAL HISTORY Procedure Laterality Date BACK SURGERY HX BIOPSY BREAST OPEN INCISIONAL left Bx of breast, incisional COLONOSCOPY FLX DX W/COLLJ SPEC WHEN PFRMD 10/27/2004 Colonoscopy COLONOSCOPY FLX DX W/COLLJ SPEC WHEN PFRMD 02/22/2010 Colonoscopy COLONOSCOPY FLX DX W/COLLJ SPEC WHEN PFRMD 03/19/2015 Colonoscopy CORRECT BUNION,SIMPLE CORRECTION HAMMERTOE EYE SURGERY HX PAST SURGICAL HISTORY OF scoliosis surgery PAST SURGICAL HISTORY OF laser kidney stone PAST SURGICAL HISTORY OF lap hysterectomy. benign ov mass TONSILLECTOMY HX TONSILLECTOMY PRIMARY/SECONDARY Tonsillectomy CURRENT MEDICATIONS Current Outpatient Medications Medication Sig ferrous sulfate 325 mg (65 mg iron) tablet Take 1 tablet by mouth two times a day with meals. dilTIAZem CD (CARDIZEM CD) 180 mg 24 hr capsule Take 1 capsule by mouth once daily. albuterol HFA (VENTOLIN HFA) 90 mcg/actuation inhaler Inhale 2 Puffs as instructed every 4 hours as needed for wheezing/shortness of breath. fluticasone-salmeterol (WIXELA INHUB) 250-50 mcg/dose inhaler Inhale 1 Puff as instructed two times a day. calcium citrate (CITRACAL ORAL) Take 2 capsules by mouth two times a day. clindamycin (CLEOCIN T) 1 % gel Apply to affected area once daily. denosumab (PROLIA) 60 mg/mL Inject subcutaneously once every 6 months. melatonin 3 mg tablet Take 3 mg by mouth. qhs acetaminophen 325 mg cap Take by mouth as needed. MULTIVITAMIN ORAL Take 1 tablet by mouth once daily. No current facility-administered medications for this visit. ALLERGIES: Amoxicillin, Asa [Salicylates], Diclofenac, Iodine, and Monistat 1 [Tioconazole] PERSONAL HISTORY: SOCIAL HISTORY Social History Tobacco Use Smoking status: Never Smokeless tobacco: Never Tobacco comments: Father smoked in childhood home. Spouse does not smoke. Vaping Use Vaping status: Never Used Substance Use Topics Alcohol use: Yes Comment: Occasionally. Drug use: No FAMILY HISTORY: FAMILY HISTORY FAMILY HISTORY Problem Relation Age of Onset Colon Cancer Mother 56 Hypertension Mother Colon Cancer Father Diabetes Father Hypertension Maternal Grandmother REVIEW OF SYMPTOMS: negative except as noted above PHYSICAL EXAMINATION: General: The patient is 73 year old female, well nourished, well hydrated in no acute distress. The patient is oriented to time, place, and person. VITALS: Blood pressure 189/82, pulse 91, height 158.2 cm (5' 2.3 ), weight 49.9 kg (110 lb), SpO2 98%. Body mass index is 19.93 kg/m?. HEENT: Normal cephalic, ataumatic, pupils are equally round, sclera are anicteric, mucous membranes are moist, oropharynx is clear. Neck has no masses, asymmetry or lymphadenopathy. Thyroid is unremarkable. Respiratory: Clear to auscultation and percussion. Normal respiratory excursion and pattern. Cardiac: Examination is regular rate and rhythm. Abdominal exam: Soft, nontender, with no palpable masses. No hepatosplenomegaly. No palpable hernias. Rectal exam: exam deferred Extremities: no clubbing, cyanosis or edema. No a (more content not included)... Normal [facility] NURSING PROGon 03-21-2024 NURSING PROG HNO ID: [id number] Author: EMMA BARCENAS RN Service: ? Author Type: Registered Nurse Type: Nursing Progress Note Filed: 03/21/2024 12:46 Note Text: Patient awoken, still very drowsy, at bedside, encouraging her to keep her eyes open. assisting her to drink her coffee. Normal [facility] NURSING PROG HNO ID: [id number] Author: EMMA BARCENAS RN Service: ? Author Type: Registered Nurse Type: Nursing Progress Note Filed: 03/21/2024 12:14 Note Text: Patient received in phase II via cart in left lateral position, eyes closed, responds to tactile stimuli, skin warm and dry, very drowsy, respirations regular and unlabored. Abdomen soft and non distended, no grimacing with light palpation of abdomen. brought to bedside with patient. Patient continues to rest on left side. Normal [facility] No Panel Informationon 03-21 Radiology Study observation (narrative) [facility] SURGICAL PATHOLOGYon 024 CASE REPORT Normal [facility] Comment on above: Order Comment: Negin parson Type: TISSUE SPECIMENOrdering Facility: [facility] Address: [address] [place] [address] Result Comment: Surg [facility] Pathology Report Case: [id number] Authorizing Provider: Daryl Hamlin MD Collected: 03/21/2024 11:37 AM Ordering Location: Ambulatory Surgery Received: 03/21/2024 01:14 PM Pathologist: Gordy Bear MD Specimens: A) - Small Bowel, Duodenum, Biopsy B) - Stomach, Antrum, Biopsy, Antral bx for h/h C) - Esophagus, Distal, Biopsy D) - Esophagus, Mid, Biopsy Performed By: #### S ####[facility] LABORATORYCLIA [id number] [place] [address] [place] LABCLIA [id number] [address] OF [facility] FINAL DIAGNOSIS Normal [facility] Comment on above: Order Comment: Speci men Type: TISSUE SPECIMENOrdering Facility: [facility] Address: [address] [place] [address] Result Comment: A. D uodenum, biopsy: - Duodenal mucosa with no significant pathologic changes. B. Stomach, biopsy: - Fundic mucosa with no significant pathologic changes. C. Distal esophagus, biopsy: - Squamous mucosa with no significant pathologic changes. D. Mid esophagus, biopsy: - Squamous mucosa with no significant pathologic changes. Performed By: #### S ####[facility] LABORATORYCLIA [id number] [address] LABCLIA [id number] [address] [place] FINAL PERFORMING LAB Normal [facility] Comment on above: Order Comment: Speci men Type: TISSUE SPECIMENOrdering Facility: [facility] Address: [address] [place] [address] Result Comment: Diag nostic interpretation performed at [facility], [address] [facility], [place] [address] CLIA# [id number] Rough Rib Grader: Rosalind Loredo M.D. Performed By: #### S ####[facility] LABORATORYCLIA [id number] [address] LABCLIA [id number] [address] STATES OF [facility] GROSS DESCRIPTION Normal [facility] Comment on above: Order Comment: Speci eb Type: TISSUE SPECIMENOrdering Facility: [facility] Address: [address] [place] [address] Result Comment: A. S mall Bowel, Duodenum, Biopsy Received in formalin is one piece of moeller, soft tissue measuring 0.5 x 0.3 x 0.2 cm. Totally submitted in one cassette. B. Stomach, Antrum, Biopsy Received in formalin are two pieces of moeller, soft tissue aggregating to 0.4 x 0.4 x 0.2 cm. Totally submitted in one cassette. C. Esophagus, Distal, Biopsy Received in formalin are two pieces of moeller-pink to red, soft tissue aggregating to 1.0 x 0.3 x 0.2 cm. Totally submitted in one cassette. D. Esophagus, Mid, Biopsy Received in formalin is one piece of moeller-white, soft tissue measuring 0.6 x 0.4 x 0.1 cm. Totally submitted in one cassette. 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 Refer to note in patient chart for documentation of history and physical. Referring Physician: Daryl Hamlin MD (Referring MD) Medicines: Fentanyl 100 micrograms IV, Midazolam 5 mg IV, Diphenhydramine 50 mg IV Complications: No immediate complications. Estimated blood loss: Minimal. Requesting Provider: Procedure: Pre-Anesthesia Assessment: - Prior to the procedure, a History and Physical was performed, and patient medications and allergies were reviewed. The patient's tolerance of previous anesthesia was also reviewed. The risks and benefits of the procedure and the sedation options and risks were discussed with the patient. All questions were answered, and informed consent was obtained. Prior Anticoagulants: The patient has taken no anticoagulant or antiplatelet agents. ASA Grade Assessment: II - A patient with mild systemic disease. After reviewing the risks and benefits, the patient was deemed in satisfactory condition to undergo the procedure. After obtaining informed consent, the endoscope was passed under direct vision. Throughout the procedure, the patient's blood pressure, pulse, and oxygen saturations were monitored continuously. The Endoscope was introduced through the mouth, and advanced to the second part of duodenum. The upper GI endoscopy was accomplished without difficulty. The patient tolerated the procedure well. Moderate Sedation: The administration of moderate sedation was initiated at 11:33 AM. Moderate (conscious) sedation was personally administered by the endoscopist. The following parameters were monitored: oxygen saturation, heart rate, blood pressure, respiratory rate, EKG, adequacy of pulmonary ventilation, and response to care. Total physician intraservice time was 27 minutes. Findings: The Z-line was irregular and was found 38 cm from the incisors. Biopsies were taken with a cold forceps for histology. The entire examined stomach was normal. Biopsies were taken with a cold forceps for Helicobacter pylori testing. The examined duodenum was normal. Biopsies for histology were taken with a cold forceps for evaluation of celiac disease. Impression: - Z-line irregular, 38 cm from the incisors. Biopsied. - Normal stomach. Biopsied. - Normal examined duodenum. Biopsied. Recommendation: - Patient has a contact number available for emergencies. The signs and symptoms of potential delayed complications were discussed with the patient. Return to normal activities tomorrow. Written discharge instructions were provided to the patient. - Resume previous diet. - Continue present medications. - Await pathology results. - Repeat upper endoscopy PRN for surveillance. - Return to nurse practitioner at appointment to be scheduled. Procedure Code(s): --- Professional --- 02825, Esophagogastroduodenosc opy, flexible, transoral; with biopsy, single or multiple G0500, Moderate sedation services provided by the same physician or other qualified health home care attendant performing a gastrointestinal endoscopic service that sedation supports, requiring the presence of an independent trained observer to assist in the monitoring of the patient's level of consciousness and physiological status; initial 15 minutes of intra-service time; patient age 5 years or older (additional time may be reported with 21478, as appropriate) 95014, Moderate sedation; each additional 15 minutes intraservice time Diagnosis Code(s): --- Professional --- K22.89, Other specified disease of esophagus CPT copyright 2020 [employer]. All rights reserved. The codes documented in this report are preliminary and upon manufacturing controller review may be revised to meet current compliance requirements. Attending Participation: I personally performed the entire procedure. Scope In: 11:36:09 AM Scope Out: 11:40:09 AM MD Daryl Pineda MD 03/21/2024 12:04:44 PM This report has been signed electronically by Daryl Hamlin MD Number of Addenda: 0 Note Initiated On: 03/21/2024 11:26 AM Estimated Blood Loss: Estimated blood loss was minimal. Normal [facility] 36on 03-19-2024 36 Patient notified of the message. Patient acknowledged. Normal [facility] 36 Ok to have colonosco py from urogyn postop standpoint. Marie Alston MD [facility] 36 Name of caller: David i Contact phone number: [phone] Relationship to Patient: patient Provider: Gordy Practice: erika Chief Complaint/Reason for Call: Pt wants to know if prolapse surgery will interfere with her colonoscopy she is having done on 03.21. Please call to let her know Best time of day caller can be reached: anytime Patient advised that office/PCP has 24-48 business hours to return their call: yes [facility] CNPNon 03-19-2024 CNPN Telephone (GENSWS) VANDANA MITCHELL ([id number]) 1950 F NFR Date Time Provider Department 03/19/24 DARYL HAMLIN GENSWS During your visit today, we recorded the following information about you: Jennifer Zhang MA 03/19/2024 9:11 AM Signed Patient states she received colonoscopy prep instructions when in the office on 03/05/2024. States she received a 2nd set of instructions which included to stop taking iron 7 days prior to procedure. She has not done that and is asking if she will need to reschedule her procedure? She is scheduled for 03/21/2024. Patient can be reached back at [phone]. Daryl Hamlin MD 03/19/2024 9:35 AM Signed Tell her to stop taking the iron now she will be Melony Clifford 03/19/2024 9:54 AM Signed Patient notified Melony Kaufman Track Inspector Allergies As of Date: 03/19/2024 Noted Allergy Reaction AMOXICILLIN 04/22/2005 2 - Rash ASA (SALICYLATES) 04/22/2005 7 - Swelling Comments: lip swelling DICLOFENAC 02/21/2006 12 - Shortness of Breath IODINE 04/22/2005 12 - Shortness of Breath MONISTAT 1 (TIOCONAZOLE) 04/22/2005 5 - Intolerance Comments: Burning Date Reviewed: 03/12/2024 Reviewed by: Otto Salomon LPN - Fully Assessed Reason for Visit: Patient Question [1806] Prescriptions as of 03/19/2024 - dilTIAZem CD (CARDIZEM CD, CARTIA XT) 180 mg 24 hr capsule take 1 capsule by mouth once daily - docusate sodium (COLACE) 100 mg capsule Take 1 capsule by mouth two times a day as needed for constipation. - ferrous sulfate 325 mg (65 mg iron) tablet Take 1 tablet by mouth two times a day with meals. - albuterol HFA (VENTOLIN HFA) 90 mcg/actuation inhaler Inhale 2 Puffs as instructed every 4 hours as needed for wheezing/shortness of breath. - fluticasone-salmeterol (WIXELA INHUB) 250-50 mcg/dose inhaler Inhale 1 Puff as instructed two times a day. - calcium citrate (CITRACAL ORAL) Take 2 capsules by mouth two times a day. - clindamycin (CLEOCIN T) 1 % gel Apply to affected area once daily. - denosumab (PROLIA) 60 mg/mL Inject subcutaneously once every 6 months. - melatonin 3 mg tablet Take 3 mg by mouth. qhs - acetaminophen 325 mg cap Take by mouth as needed. - MULTIVITAMIN ORAL Take 1 tablet by mouth once daily. 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.20]01/09/2011 Family history of colon cancer [Z80.0] 07/06/2011 Bursitis of right shoulder [M75.51] 10/10/2011 08/09/2018 Osteoporosis [M81.0] 10/10/2011 Psychophysiological insomnia [F51.04] 10/26/2011 Multinodular thyroid [E04.2] 10/27/2011 Other pulmonary embolism and infarction (HCC) [*07/25/2012 07/21/2016 Complete uterovaginal prolapse [N81.3] 01/09/2015 03/30/2016 Pelvic muscle wasting [N81.84] 01/09/2015 08/09/2018 Postmenopausal atrophic vaginitis [N95.2] 01/09/2015 Muscle weakness [M62.81] 02/16/2015 07/21/2016 Restrictive 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 *07/31/2015 Incomplete uterovaginal prolapse [N81.2] 04/05/2016 Monoclonal gammopathy [D47.2] 03/30/2017 Hypercalcemia [E83.52] 08/09/2018 Mitral valve prolapse [I34.1] 08/09/2018 09/16/2022 Bilateral carotid artery stenosis [I65.23] 08/09/2018 Obstructive cardiomyopathy (HCC) [I42.8] 01/28/2019 Precordial pain [R07.2] 01/28/2019 09/16/2022 Dyspnea on exertion [R06.09] 05/31/2019 09/16/2022 SVT (supraventricular tachycardia) (HCC) [I47.1*01/14/2020 Screening for colon cancer [Z12.11] 09/24/2020 09/24/2020 Murmur [R01.1] 10/05/2020 09/16/2021 HOCM (hypertrophic obstructive cardiomyopathy) *10/05/2020 Age-related osteoporosis without current pathol*09/10/2021 06/13/2023 Closed fracture of distal radius and ulna [S52.*03/18/2022 Cyst of kidney, acquired [N28.1] 02/18/2022 Greater trochanteric bursitis [M70.60] 03/18/2022 09/16/2022 Normal pelvic exam [Z01.419] 01/24/2017 09/16/2022 Mild intermittent asthma without complication [*03/22/2022 Dizziness [R42] 11/17/2022 Epistaxis [R04.0] 11/17/2022 06/13/2023 Encounter Status:Closed by MELONY KAUFMAN on 03/19/24 Normal [facility] CNPDiane 03-18-2024 CNPN Telephone (GENbeSUCCESSE) VANDANA MITCHELL ([id number]) 1950 F NFR Date Time Provider Department 03/18/24 DARYL HAMLIN During your visit today, we recorded the following information about you: Amanda Dominguez 03/18/2024 10:49 AM Signed Patient having colonoscopy on 03/[address] Hamlin wants to know if she can take diltiazem and her inhaler? Criss Quijano PA-C 03/18/2024 11:53 AM Signed OK to take medications as prescribed. Darlene Ramos, DIANNE 03/18/2024 12:00 PM Signed Spoke with patient and advised of information per provider. Patient verbalized understanding. No further questions at this time. Advised to call if any future problems or concerns. Provider message noted. Encounter closed. Allergies As of Date: 03/18/2024 Noted Allergy Reaction AMOXICILLIN 04/22/2005 2 - Rash ASA (SALICYLATES) 04/22/2005 7 - Swelling Comments: lip swelling DICLOFENAC 02/21/2006 12 - Shortness of Breath IODINE 04/22/2005 12 - Shortness of Breath MONISTAT 1 (TIOCONAZOLE) 04/22/2005 5 - Intolerance Comments: Burning Date Reviewed: 03/12/2024 Reviewed by: Otto Salomon LPN - Fully Assessed Prescriptions as of 03/18/2024 - dilTIAZem CD (CARDIZEM CD, CARTIA XT) 180 mg 24 hr capsule take 1 capsule by mouth once daily - docusate sodium (COLACE) 100 mg capsule Take 1 capsule by mouth two times a day as needed for constipation. - ferrous sulfate 325 mg (65 mg iron) tablet Take 1 tablet by mouth two times a day with meals. - albuterol HFA (VENTOLIN HFA) 90 mcg/actuation inhaler Inhale 2 Puffs as instructed every 4 hours as needed for wheezing/shortness of breath. - fluticasone-salmeterol (WIXELA INHUB) 250-50 mcg/dose inhaler Inhale 1 Puff as instructed two times a day. - calcium citrate (CITRACAL ORAL) Take 2 capsules by mouth two times a day. - clindamycin (CLEOCIN T) 1 % gel Apply to affected area once daily. - denosumab (PROLIA) 60 mg/mL Inject subcutaneously once every 6 months. - melatonin 3 mg tablet Take 3 mg by mouth. qhs - acetaminophen 325 mg cap Take by mouth as needed. - MULTIVITAMIN ORAL Take 1 tablet by mouth once daily. Problem List As Of Date 03/18/2024 Noted Resolved GENERAL OSTEOARTHROSIS [M15.9] 11/18/2005 07/03/2015 Essential hypertension [I10] 11/18/2005 Non-rheumatic mitral regurgitation [I34.0] Unspecified asthma [J45.909] 04/11/2011 Disorder of bone and cartilage, unspecified [M8* 12/04/2019 Cervicalgia [M54.2] 08/28/2007 08/09/2018 Idiopathic scoliosis and kyphoscoliosis [M41.20]01/09/2011 Family history of colon cancer [Z80.0] 07/06/2011 Bursitis of right shoulder [M75.51] 10/10/2011 08/09/2018 Osteoporosis [M81.0] 10/10/2011 Psychophysiological insomnia [F51.04] 10/26/2011 Multinodular thyroid [E04.2] 10/27/2011 Other pulmonary embolism and infarction (HCC) [*07/25/2012 07/21/2016 Complete uterovaginal prolapse [N81.3] 01/09/2015 03/30/2016 Pelvic muscle wasting [N81.84] 01/09/2015 08/09/2018 Postmenopausal atrophic vaginitis [N95.2] 01/09/2015 Muscle weakness [M62.81] 02/16/2015 07/21/2016 Restrictive 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 *07/31/2015 Incomplete uterovaginal prolapse [N81.2] 04/05/2016 Monoclonal gammopathy [D47.2] 03/30/2017 Hypercalcemia [E83.52] 08/09/2018 Mitral valve prolapse [I34.1] 08/09/2018 09/16/2022 Bilateral carotid artery stenosis [I65.23] 08/09/2018 Obstructive cardiomyopathy (HCC) [I42.8] 01/28/2019 Precordial pain [R07.2] 01/28/2019 09/16/2022 Dyspnea on exertion [R06.09] 05/31/2019 09/16/2022 SVT (supraventricular tachycardia) (HCC) [I47.1*01/14/2020 Screening for colon cancer [Z12.11] 09/24/2020 09/24/2020 Murmur [R01.1] 10/05/2020 09/16/2021 HOCM (hypertrophic obstructive cardiomyopathy) *10/05/2020 Age-related osteoporosis without current pathol*09/10/2021 06/13/2023 Closed fracture of distal radius and ulna [S52.*03/18/2022 Cyst of kidney, acquired [N28.1] 02/18/2022 Greater trochanteric bursitis [M70.60] 03/18/2022 09/16/2022 Normal pelvic exam [Z01.419] 01/24/2017 09/16/2022 Mild intermittent asthma without complication [*03/22/2022 Dizziness [R42] 11/17/2022 Epistaxis [R04.0] 11/17/2022 06/13/2023 Encounter Status:Closed by AMANDA DOMINGUEZ on 03/18/24 Normal [facility] CNOVon 03-12-2024 CNOV Office Visit (FAMPWS ) VANDANA MITCHELL ([id number]) 1950 F NFR Date Time Provider Department 03/12/24 10:40 AM DEBBIE CONSTANTINO During your visit today, we recorded the following information about you: Pulse Respiration Blood pressure Weight 86/minute 16/minute 148/86 49.4 kg Debbie Constantino APRN.[employer] 03/12/2024 5:11 PM Signed This is a 73 year old female who presents today with: Patient presents with: Recheck: 4 week follow up- weight loss HISTORY OF PRESENT ILLNESS: Vandana Mitchell is a 73 year old female. Patient presents with: Recheck: 4 week follow up- weight loss Pt presents today to follow-up on weight loss. Losing weight since 2020. Got labs, found to be anemic. Anemic work-up showed + ifob. She did see gen surg and she is schedule for EGD and colonoscopy next week. She has a family hx of colon ca in her parents. Does drink a boost a day. Refers since her surgery/hyster, appetite has been less, but states normally eats pretty well. She is taking iron twice daily. Stools can start with a couple black judith, but then have a brown stool. No obvious blood. She did bring in home blood pressures -- primarily in the 120's with occ 130 and 140's. No chest pain/SOB. 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 had pe with normal d dimer. saw pulmonary. not convinced she did have one. Renal cyst Small airways disease Possible asthma. Patient unable to perform definitive test SVT (supraventricular tachycardia) ([facility]) 01/14/2020 Unspecified essential hypertension PAST SURGICAL HISTORY Procedure Laterality Date BACK SURGERY HX BIOPSY BREAST OPEN INCISIONAL left Bx of breast, incisional COLONOSCOPY FLX DX W/COLLJ SPEC WHEN PFRMD 10/27/2004 Colonoscopy COLONOSCOPY FLX DX W/COLLJ SPEC WHEN PFRMD 02/22/2010 Colonoscopy COLONOSCOPY FLX DX W/COLLJ SPEC WHEN PFRMD 03/19/2015 Colonoscopy CORRECT BUNION,SIMPLE CORRECTION HAMMERTOE EYE SURGERY HX PAST SURGICAL HISTORY OF scoliosis surgery PAST SURGICAL HISTORY OF laser kidney stone PAST SURGICAL HISTORY OF lap hysterectomy. benign ov mass TONSILLECTOMY HX TONSILLECTOMY PRIMARY/SECONDARY Tonsillectomy ALLERGIES Amoxicillin, Asa [Salicylates], Diclofenac, Iodine, and Monistat 1 [Tioconazole] MEDICATIONS Current Outpatient Medications Medication Sig ferrous sulfate 325 mg (65 mg iron) tablet Take 1 tablet by mouth two times a day with meals. dilTIAZem CD (CARDIZEM CD) 180 mg 24 hr capsule Take 1 capsule by mouth once daily. albuterol HFA (VENTOLIN HFA) 90 mcg/actuation inhaler Inhale 2 Puffs as instructed every 4 hours as needed for wheezing/shortness of breath. fluticasone-salmeterol (WIXELA INHUB) 250-50 mcg/dose inhaler Inhale 1 Puff as instructed two times a day. calcium citrate (CITRACAL ORAL) Take 2 capsules by mouth two times a day. clindamycin (CLEOCIN T) 1 % gel Apply to affected area once daily. denosumab (PROLIA) 60 mg/mL Inject subcutaneously once every 6 months. melatonin 3 mg tablet Take 3 mg by mouth. qhs acetaminophen 325 mg cap Take by mouth as needed. MULTIVITAMIN ORAL Take 1 tablet by mouth once daily. No current facility-administered medications for this visit. FAMILY HISTORY Problem Relation Age of Onset Colon Cancer Mother 56 Hypertension Mother Colon Cancer Father Diabetes Father Hypertension Maternal Grandmother Social History Tobacco Use Smoking status: Never Smokeless tobacco: Never Tobacco comments: Father smoked in childhood home. Spouse does not smoke. Vaping Use Vaping status: Never Used Substance Use Topics Alcohol use: Yes Comment: Occasionally. Drug use: No EXAM: BP 148/86 Pulse 86 Resp 16 Wt 49.4 kg (109 lb) SpO2 95% BMI 19.74 kg/m? PHYSICAL EXAM: General Appearance: Well appearing, alert, in no acute distress, well-hydrated, well nourished.. Skin: Skin color, texture, turgor normal, no suspicious rashes or lesions. Head: Normocephalic, no masses, lesions, tenderness or abnormalities. Eyes: Anicteric sclera. Extraocular movements are intact. . Lungs: Lungs clear to auscultation. No wheezing, rhonchi, rales.. Heart: RRR without murmur, gallop, or rubs. No ectopy. Extremities: No deformities, edema, skin discoloration, clubbing or cyanosis. Good capillary refill. . Neurologic: Gait normal. ASSESSMENT/P (more content not included)... Normal [facility] 03-11-2024 CNPN Telephone (FAMLucyWS) VANDANA MITCHELL ([id number]) 1950 F NFR Date Time Provider Department 03/11/24 RYLEE DUARTE During your visit today, we recorded the following information about you: Ofelia Brenner MA 03/11/2024 2:08 PM Signed ----- Message from Rylee Duarte sent at 03/11/2024 1:29 PM EDT ----- Iron level improved. Continue ferrous sulfate. Anemia has improved slightly. Ofelia Brenner MA 03/11/2024 2:09 PM Signed Pt notified of results via mobiliThink. Ofelia Brenner Ma Allergies As of Date: 03/11/2024 Noted Allergy Reaction AMOXICILLIN 04/22/2005 2 - Rash ASA (SALICYLATES) 04/22/2005 7 - Swelling Comments: lip swelling DICLOFENAC 02/21/2006 12 - Shortness of Breath IODINE 04/22/2005 12 - Shortness of Breath MONISTAT 1 (TIOCONAZOLE) 04/22/2005 5 - Intolerance Comments: Burning Date Reviewed: 03/05/2024 Reviewed by: Fatmata Aranda MA - Fully Assessed Reason for Visit: Results [95] Prescriptions as of 03/11/2024 - ferrous sulfate 325 mg (65 mg iron) tablet Take 1 tablet by mouth two times a day with meals. - dilTIAZem CD (CARDIZEM CD) 180 mg 24 hr capsule Take 1 capsule by mouth once daily. - albuterol HFA (VENTOLIN HFA) 90 mcg/actuation inhaler Inhale 2 Puffs as instructed every 4 hours as needed for wheezing/shortness of breath. - fluticasone-salmeterol (WIXELA INHUB) 250-50 mcg/dose inhaler Inhale 1 Puff as instructed two times a day. - calcium citrate (CITRACAL ORAL) Take 2 capsules by mouth two times a day. - clindamycin (CLEOCIN T) 1 % gel Apply to affected area once daily. - denosumab (PROLIA) 60 mg/mL Inject subcutaneously once every 6 months. - melatonin 3 mg tablet Take 3 mg by mouth. qhs - acetaminophen 325 mg cap Take by mouth as needed. - MULTIVITAMIN ORAL Take 1 tablet by mouth once daily. Problem List As Of Date 03/11/2024 Noted Resolved GENERAL OSTEOARTHROSIS [M15.9] 11/18/2005 07/03/2015 Essential hypertension [I10] 11/18/2005 Non-rheumatic mitral regurgitation [I34.0] Unspecified asthma [J45.909] 04/11/2011 Disorder of bone and cartilage, unspecified [M8* 12/04/2019 Cervicalgia [M54.2] 08/28/2007 08/09/2018 Idiopathic scoliosis and kyphoscoliosis [M41.20]01/09/2011 Family history of colon cancer [Z80.0] 07/06/2011 Bursitis of right shoulder [M75.51] 10/10/2011 08/09/2018 Osteoporosis [M81.0] 10/10/2011 Psychophysiological insomnia [F51.04] 10/26/2011 Multinodular thyroid [E04.2] 10/27/2011 Other pulmonary embolism and infarction (HCC) [*07/25/2012 07/21/2016 Complete uterovaginal prolapse [N81.3] 01/09/2015 03/30/2016 Pelvic muscle wasting [N81.84] 01/09/2015 08/09/2018 Postmenopausal atrophic vaginitis [N95.2] 01/09/2015 Muscle weakness [M62.81] 02/16/2015 07/21/2016 Restrictive 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 *07/31/2015 Incomplete uterovaginal prolapse [N81.2] 04/05/2016 Monoclonal gammopathy [D47.2] 03/30/2017 Hypercalcemia [E83.52] 08/09/2018 Mitral valve prolapse [I34.1] 08/09/2018 09/16/2022 Bilateral carotid artery stenosis [I65.23] 08/09/2018 Obstructive cardiomyopathy (HCC) [I42.8] 01/28/2019 Precordial pain [R07.2] 01/28/2019 09/16/2022 Dyspnea on exertion [R06.09] 05/31/2019 09/16/2022 SVT (supraventricular tachycardia) (HCC) [I47.1*01/14/2020 Screening for colon cancer [Z12.11] 09/24/2020 09/24/2020 Murmur [R01.1] 10/05/2020 09/16/2021 HOCM (hypertrophic obstructive cardiomyopathy) *10/05/2020 Age-related osteoporosis without current pathol*09/10/2021 06/13/2023 Closed fracture of distal radius and ulna [S52.*03/18/2022 Cyst of kidney, acquired [N28.1] 02/18/2022 Greater trochanteric bursitis [M70.60] 03/18/2022 09/16/2022 Normal pelvic exam [Z01.419] 01/24/2017 09/16/2022 Mild intermittent asthma without complication [*03/22/2022 Dizziness [R42] 11/17/2022 Epistaxis [R04.0] 11/17/2022 06/13/2023 Encounter Status:Closed by OFELIA BRENNER on 03/11/24 Normal [facility] CBC W Auto Differential pane l (Bld)on 03-08-2024 Basophils (Bld) [#/Vol] 0.10 10*3/uL NINF [facility] Basophils/100 WBC (Bld) 1.7 % [facility] Differential cell count method Nom (Bld) Auto [facility] Eosinophils (Bld) [#/Vol] 0.18 10*3/[facility]L [facility] Eosinophils/100 WBC (Bld) 3.0 % [facility] Erythrocyte distribution width (RBC) [Ratio] 14.7 % 11.5 - 15.0 % [facility] Hematocrit (Bld) [Volume fraction] 35.9 % Low 36.0 - 46.0 % [facility] Hemoglobin (Bld) [Mass/Vol] 11.0 g/dL Low 11.5 - 15.5 g/dL [facility] Immature granulocytes (Bld) [#/Vol] [facility] Immature granulocytes/100 WBC (Bld) 0.3 % [facility] Interpretation and review of laboratory results Abnormal [facility] Lymphocytes (Bld) [#/Vol] 1.02 10*3/uL [facility] Lymphocytes/100 WBC (Bld) 17.0 % [facility] MCH (RBC) [Entitic mass] 25.4 pg Low 26.0 - 34.0 pg [facility] MCHC (RBC) [Mass/Vol] 30.6 g/dL 30.5 - 36.0 g/dL [facility] MCV (RBC) [Entitic vol] 82.9 fL 80.0 - 100.0 fL [facility] Monocytes (Bld) [#/Vol] 0.69 10*3/uL [facility] Monocytes/100 WBC (Bld) 11.5 % [facility] Neutrophils (Bld) [#/Vol] 3.98 10*3/uL [facility] Neutrophils/100 WBC (Bld) 66.5 % [facility] Nucleated RBC (Bld) [#/Vol] [facility] Nucleated RBC/100 WBC (Bld) [Ratio] 0.0 % /100 WBC [facility] Platelet mean volume (Bld) [Entitic vol] 10.9 fL 9.0 - 12.7 fL [facility] Platelets (Bld) [#/Vol] 378 10*3/uL [facility] RBC (Bld) [#/Vol] 4.33 10*6/uL 3.90 - 5.2 0 m/uL [facility] WBC (Bld) [#/Vol] 5.99 10*3/uL [facility] Basophils (Bld) [#/Vol] 0.10 10*3/uL Normal <0.11 [facility] Comment on above: Order Comment: Speci men Type: BLOOD SPECIMENOrdering Facility: [facility] Address: [address] [place] [address] Performed By: #### 5 7021-8 ####[facility] LABCLIA [id number] [place] [address] [place] Basophils/100 WBC (Bld) 1.7 % Normal [facility] Comment on above: Order Comment: Speci men Type: BLOOD SPECIMENOrdering Facility: [facility] Address: [address] [place] [address] Performed By: #### 5 7021-8 ####[facility] LABCLIA [id number] [place] [address] [place] Differential cell count method Nom (Bld) Auto Normal [facility] Comment on above: Order Comment: Speci men Type: BLOOD SPECIMENOrdering Facility: [facility] Address: [address] [place] [address] Performed By: #### 5 7021-8 ####[facility] LABCLIA [id number] [place] [address] [place] Eosinophils (Bld) [#/Vol] 0.18 10*3/uL Normal <0.46 [facility] Comment on above: Order Comment: Speci men Type: BLOOD SPECIMENOrdering Facility: [facility] Address: [address] [place] [address] Performed By: #### 5 7021-8 ####[facility] LABCLIA [id number] [place] [address] [place] Eosinophils/100 WBC (Bld) 3.0 % Normal [facility] Comment on above: Order Comment: Speci men Type: BLOOD SPECIMENOrdering Facility: [facility] Address: [address] [place] [address] Performed By: #### 5 7021-8 ####[facility] LABCLIA [id number] [place] [address] [place] Erythrocyte distribution width (RBC) [Ratio] 14.7 % Normal 11.5-15.0 [facility] Comment on above: Order Comment: Speci men Type: BLOOD SPECIMENOrdering Facility: [facility] Address: [address] [place] [address] Performed By: #### 5 7021-8 ####[facility] LABCLIA [id number] [place] [address] [place] Hematocrit (Bld) [Volume fraction] 35.9 % Low 36.0-46.0 [facility] Comment on above: Order Comment: Speci men Type: BLOOD SPECIMENOrdering Facility: [facility] Address: [address] [place] [address] Performed By: #### 5 7021-8 ####[facility] LABIA [id number] [place] [address] [place] Hemoglobin (Bld) [Mass/Vol] 11.0 g/dL Low 11.5-15.5 [facility] Comment on above: Order Comment: Speci men Type: BLOOD SPECIMENOrdering Facility: [facility] Address: [address] [place] [address] Performed By: #### 5 7021-8 ####[facility] LABIA [id number] [place] [address] [place] Immature granulocytes (Bld) [#/Vol] 10*3/uL Normal <0.10 [facility] Comment on above: Order Comment: Speci men Type: BLOOD SPECIMENOrdering Facility: [facility] Address: [address] [place] [address] Performed By: #### 5 7021-8 ####[facility] LABIA [id number] [place] [address] [place] Immature granulocytes/100 WBC (Bld) 0.3 % Normal [facility] Comment on above: Order Comment: Speci men Type: BLOOD SPECIMENOrdering Facility: [facility] Address: [address] [place] [address] Performed By: #### 5 7021-8 ####[facility] LABCLIA [id number] [place] [address] [place] Lymphocytes (Bld) [#/Vol] 1.02 10*3/uL Normal 1.00-4.00 [facility] Comment on above: Order Comment: Speci men Type: BLOOD SPECIMENOrdering Facility: [facility] Address: [address] [place] [address] Performed By: #### 5 7021-8 ####[facility] LABCLIA [id number] [place] [address] [place] Lymphocytes/100 WBC (Bld) 17.0 % Normal [facility] Comment on above: Order Comment: Speci men Type: BLOOD SPECIMENOrdering Facility: [facility] Address: [address] [place] [address] Performed By: #### 5 7021-8 ####[facility] LABCLIA [id number] [place] [address] [place] MCH (RBC) [Entitic mass] 25.4 pg Low 26.0-34.0 [facility] Comment on above: Order Comment: Speci men Type: BLOOD SPECIMENOrdering Facility: [facility] Address: [address] [place] [address] Performed By: #### 5 7021-8 ####[facility] LABCLIA [id number] [place] [address] [place] MCHC (RBC) [Mass/Vol] 30.6 g/dL Normal 30.5-36.0 [facility] Comment on above: Order Comment: Speci men Type: BLOOD SPECIMENOrdering Facility: [facility] Address: [address] [place] [address] Performed By: #### 5 7021-8 ####[facility] LABCLIA [id number] [place] [address] [place] MCV (RBC) [Entitic vol] 82.9 fL Normal 80.0-100.0 [facility] Comment on above: Order Comment: Speci men Type: BLOOD SPECIMENOrdering Facility: [facility] Address: [address] [place] [address] Performed By: #### 5 7021-8 ####[facility] LABIA [id number] [place] [address] [place] Monocytes (Bld) [#/Vol] 0.69 10*3/uL Normal <0.87 [facility] Comment on above: Order Comment: Speci men Type: BLOOD SPECIMENOrdering Facility: [facility] Address: [address] [place] [address] Performed By: #### 5 7021-8 ####[facility] LABIA [id number] [place] [address] [place] Monocytes/100 WBC (Bld) 11.5 % Normal [facility] Comment on above: Order Comment: Speci men Type: BLOOD SPECIMENOrdering Facility: [facility] Address: [address] [place] [address] Performed By: #### 5 7021-8 ####[facility] LABCLIA [id number] [place] [address] [place] Neutrophils (Bld) [#/Vol] 3.98 10*3/uL Normal 1.45-7.50 [facility] Comment on above: Order Comment: Speci men Type: BLOOD SPECIMENOrdering Facility: [facility] Address: [address] [place] [address] Performed By: #### 5 7021-8 ####[facility] LABIA [id number] [place] [id number] [place] Neutrophils/100 WBC (Bld) 66.5 % Normal [facility] Comment on above: Order Comment: Speci men Type: BLOOD SPECIMENOrdering Facility: [facility] Address: [address] [place] [address] Performed By: #### 5 7021-8 ####[facility] LABCLIA [id number] [place] [address] [place] Nucleated RBC (Bld) [#/Vol] 10*3/uL Normal <0.01 [facility] Comment on above: Order Comment: Speci men Type: BLOOD SPECIMENOrdering Facility: [facility] Address: [address] [place] [address] Performed By: #### 5 7021-8 ####[facility] LABCLIA [id number] [place] [address] [place] Nucleated RBC/100 WBC (Bld) [Ratio] 0.0 /100 WBC Normal [facility] Comment on above: Order Comment: Speci men Type: BLOOD SPECIMENOrdering Facility: [facility] Address: [address] [place] [address] Performed By: #### 5 7021-8 ####[facility] LABCLIA [id number] [place] [address] [place] Platelet mean volume (Bld) [Entitic vol] 10.9 fL Normal 9.0-12.7 [facility] Comment on above: Order Comment: Speci men Type: BLOOD SPECIMENOrdering Facility: [facility] Address: [address] [place] [address] Performed By: #### 5 7021-8 ####[facility] LABCLIA [id number] [place] [address] [place] Platelets (Bld) [#/Vol] 378 10*3/uL Normal 150-400 [facility] Comment on above: Order Comment: Speci men Type: BLOOD SPECIMENOrdering Facility: [facility] Address: [address] [place] [address] Performed By: #### 5 7021-8 ####[facility] LABCLIA [id number] [place] [address] [place] RBC (Bld) [#/Vol] 4.33 10*6/uL Normal 3.90-5.20 [facility] Comment on above: Order Comment: Speci men Type: BLOOD SPECIMENOrdering Facility: [facility] Address: [address] [place] [address] Performed By: #### 5 7021-8 ####[facility] LABCLIA [id number] [place] [address] [place] WBC (Bld) [#/Vol] 5.99 10*3/uL Normal 3.70-11.00 [facility] Comment on above: Order Comment: Speci men Type: BLOOD SPECIMENOrdering Facility: [facility] Address: [address] [place] [address] Performed By: #### 5 7021-8 ####[facility] LABCLIA [id number] [place] [address] [place] Iron and Iron binding capaci ty panelon 03-08-2024 Interpretation and review of laboratory results Abnormal [facility] Iron [Mass/Vol] 46 ug/dL 41 - 186 ug/dL [facility] Iron binding capacity [Mass/Vol] 346 ug/dL 232 - 386 ug/dL [facility] Iron/TIBC [Molar ratio] 13.3 % Low 15.0 - 57.0 % [facility] Iron [Mass/Vol] 46 ug/dL Normal 41-186 [facility] Comment on above: Order Comment: Speci men Type: BLOOD SPECIMENOrdering Facility: [facility] Address: [address] [place] [address] Performed By: #### 5 0190-8 ####[facility] LABCLIA [id number] [place] [address] [place] Iron binding capacity [Mass/Vol] 346 ug/dL Normal 232-386 [facility] Comment on above: Order Comment: Speci men Type: BLOOD SPECIMENOrdering Facility: [facility] Address: [address] [place] [address] Performed By: #### 5 0190-8 ####[facility] LABCLIA [id number] [address] [facility] Iron/TIBC [Molar ratio] 13.3 % Low 15.0-57.0 [facility] Comment on above: Order Comment: Speci men Type: BLOOD SPECIMENOrdering Facility: [facility] Address: [address] [place] [address] Performed By: #### 5 0190-8 ####[facility] LABCLIA [id number] [address] CNOVon 03-05-2024 CNOV Office Visit (GENMOIRA ) VANDANA MITCHELL ([id number]) 1950 [facility] Date Time Provider Department 03/05/24 11:00 AM DARYL HAMLIN During your visit today, we recorded the following information about you: Pulse Blood pressure Weight Height 91/minute 189/82 49.9 kg 1.582 m Daryl Hamlin MD 03/24/2024 12:03 PM Signed HISTORY AND PHYSICAL Vandana Mitchell 1950 REFERRING PHYSICIAN: Markus Rascon MD CHIEF COMPLAINT: Consult (Iron deficiency anemia, unspecified iron deficiency anemia type [D50.9]; Family history of colon cancer [Z80.0]; Weight loss [R63.4]; Heme positive stool [R19.5]/) HPI: The patient is a 73 year old female referred for endoscopy. Vandana notes no history of colon complaints. The patient notes no history of upper GI complaints. Patient was noted to be anemic as well as losing weight steadily over the last 6 months. Vandana has undergone prior endoscopy. 2020 The patient is being seen by me today at the request of Dr. Markus Rascon MD for my opinion and advice regarding Iron deficiency anemia, unspecified iron deficiency anemia type Family history of colon cancer Weight loss Heme positive stool. PAST MEDICAL HISTORY Diagnosis Date Arthritis Diastolic dysfunction Grade I Disorder of bone and cartilage, unspecified Diverticulosis 2009 colonoscopy History of transfusion HOCM (hypertrophic obstructive cardiomyopathy) ([facility]) Insomnia, unspecified Melanocytic Nevocellular Nevi pigmented moles of trunk: back mainly 08/02/2011 Mitral valve disorders Monoclonal gammopathy 04/2017 Osteoporosis Other diseases of lung, not elsewhere classified restrictive lung disease Other pulmonary embolism and infarction 07/25/2012 ? had pe with normal d dimer. saw pulmonary. not convinced she did have one. Renal cyst Small airways disease Possible asthma. Patient unable to perform definitive test SVT (supraventricular tachycardia) ([facility]) 01/14/2020 Unspecified essential hypertension PAST SURGICAL HISTORY Procedure Laterality Date BACK SURGERY HX BIOPSY BREAST OPEN INCISIONAL left Bx of breast, incisional COLONOSCOPY FLX DX W/COLLJ SPEC WHEN PFRMD 10/27/2004 Colonoscopy COLONOSCOPY FLX DX W/COLLJ SPEC WHEN PFRMD 02/22/2010 Colonoscopy COLONOSCOPY FLX DX W/COLLJ SPEC WHEN PFRMD 03/19/2015 Colonoscopy CORRECT BUNION,SIMPLE CORRECTION HAMMERTOE EYE SURGERY HX PAST SURGICAL HISTORY OF scoliosis surgery PAST SURGICAL HISTORY OF laser kidney stone PAST SURGICAL HISTORY OF lap hysterectomy. benign ov mass TONSILLECTOMY HX TONSILLECTOMY PRIMARY/SECONDARY Tonsillectomy Current Outpatient Medications Medication Sig ferrous sulfate 325 mg (65 mg iron) tablet Take 1 tablet by mouth two times a day with meals. dilTIAZem CD (CARDIZEM CD) 180 mg 24 hr capsule Take 1 capsule by mouth once daily. albuterol HFA (VENTOLIN HFA) 90 mcg/actuation inhaler Inhale 2 Puffs as instructed every 4 hours as needed for wheezing/shortness of breath. fluticasone-salmeterol (WIXELA INHUB) 250-50 mcg/dose inhaler Inhale 1 Puff as instructed two times a day. calcium citrate (CITRACAL ORAL) Take 2 capsules by mouth two times a day. clindamycin (CLEOCIN T) 1 % gel Apply to affected area once daily. denosumab (PROLIA) 60 mg/mL Inject subcutaneously once every 6 months. melatonin 3 mg tablet Take 3 mg by mouth. qhs acetaminophen 325 mg cap Take by mouth as needed. MULTIVITAMIN ORAL Take 1 tablet by mouth once daily. No current facility-administered medications for this visit. ALLERGIES: Amoxicillin, Asa [Salicylates], Diclofenac, Iodine, and Monistat 1 [Tioconazole] PERSONAL HISTORY: Social History Tobacco Use Smoking status: Never Smokeless tobacco: Never Tobacco comments: Father smoked in childhood home. Spouse does not smoke. Vaping Use Vaping status: Never Used Substance Use Topics Alcohol use: Yes Comment: Occasionally. Drug use: No FAMILY HISTORY: FAMILY HISTORY Problem Relation Age of Onset Colon Cancer Mother 56 Hypertension Mother Colon Cancer Father Diabetes Father Hypertension Maternal Grandmother REVIEW OF SYMPTOMS: negative except as noted above PHYSICAL EXAMINATION: General: The patient is 73 year old female, well nourished, well hydrated in no acute distress. The patient is oriented to time, place, and person. VITALS: Blood pressure 189/82, pulse 91, height 158.2 cm (5' 2.3 ), weight 49.9 kg (110 lb), SpO2 98%. Body mass index is 19.93 kg/m?. HEENT: Normal cephalic, ataumatic, pupils are equally round, sclera are anicteric, mucous membranes are moist, oropharynx is clear. Neck has no masses, asymmetry or lymphadenopathy. Thyroid is unremarkable. Respiratory: Clear to auscultation and percussion. Normal respiratory excursion and pattern. Cardiac: Examination is regular rate and rhythm. Abdominal exam: (more content not included)... Normal [facility] US CAROTID ARTERIES [facility] LABon 02-27-2024 US CAROTID ARTERIES [facility] Non-Invasive Vascular Laboratory [facility]ly [facility] Carotid Duplex Bilateral/Complete Date of service/time: 02/27/2024 1:48:24 PM Name: VANDANA MITCHELL Date of : 1950 Age: 73 years Gender: F Clinical Indication Follow-up study on a patient with known carotid disease. TECHNIQUE -------- A carotid duplex ultrasound examination was performed, including grayscale imaging and color Doppler and spectral Doppler examination of the below mentioned arteries. FINDINGS -------- RIGHT SIDE Common carotid artery: Origin: PSV: 104 cm/s. EDV: 16 cm/s. Proximal: PSV: 110 cm/s. EDV: 21 cm/s. Mid: PSV: 91 cm/s. EDV: 15 cm/s. Distal: PSV: 80 cm/s. EDV: 16 cm/s. Internal carotid artery: Origin: PSV: 62 cm/s. EDV: 10 cm/s. Proximal: PSV: 77 cm/s. EDV: 19 cm/s. Mid: PSV: 59 cm/s. EDV: 15 cm/s. Distal: PSV: 80 cm/s. EDV: 24 cm/s. Mild heterogeneous plaque at origin. ICA/CCA Ratio: 1.0 External carotid artery: Origin: PSV: 86 cm/s. EDV: 8 cm/s. Subclavian artery: Origin: PSV: 107 cm/s. EDV: 0 cm/s. Innominate artery: PSV: 75 cm/s. EDV: 12 cm/s. Vertebral artery: PSV: 82 cm/s. EDV: 18 cm/s. LEFT SIDE Common carotid artery: Proximal: PSV: 81 cm/s. EDV: 18 cm/s. Mid: PSV: 94 cm/s. EDV: 22 cm/s. Distal: PSV: 87 cm/s. EDV: 16 cm/s. Internal carotid artery: Origin: PSV: 94 cm/s. EDV: 18 cm/s. Proximal: PSV: 89 cm/s. EDV: 17 cm/s. Mid: PSV: 71 cm/s. EDV: 23 cm/s. Distal: PSV: 68 cm/s. EDV: 22 cm/s. Mild heterogeneous plaque at origin. ICA/CCA Ratio: 1.1 External carotid artery: Origin: PSV: 127 cm/s. EDV: 16 cm/s. Subclavian artery: Proximal: PSV: 190 cm/s. EDV: 0 cm/s. Vertebral artery: PSV: 39 cm/s. EDV: 7 cm/s. IMPRESSION Compared to prior study of 09/22/2022, No change in degree of stenosis. RIGHT SIDE Internal carotid artery: 20-39% stenosis. Vertebral artery: Patent and antegrade flow noted. Subclavian artery: Patent. LEFT SIDE Internal carotid artery: 20-39% stenosis. Vertebral artery: Patent and antegrade flow noted. Subclavian artery: Patent. Technologist: Mitzi Cabrera RVT, [facility] Ordering physician: MARKUS RASCON Interpreting physician: LUCIEN Vela DO Final CC [facility] Image : [id number] ISUID See Link below for Image Normal [facility] MITCHELL ([id number]) 1950 F NFR Date Time Provider Department 02/21/24 MARKUS RASCON During your visit today, we recorded the following information about you: May Zabala RN 02/21/2024 9:38 AM Signed Patient reports she is taking ferrous sulfate that has 65 mg iron in each tab- takes 2 tabs a day. She is also taking centrum silver 1 tab a day, that has 8 mg of iron in each tablet. Reports she has been having problems with constipation since her surgery in December. Eats prunes daily- but probably not getting enough liquids daily and will work on this. Pharmacist told patient to ask pcp if she should be taking the centrum silver? Please advise and phone patient with reply. Markus Rascon MD 02/21/2024 9:45 AM Signed Hold centrum. Given the blood in stool and constipation. See surgery as ordered. The anemia may be in part due to surgery but with bowel changes and blood in stool may need more work up. Make sure using a stool softener. Vianney Steen MA 02/21/2024 10:16 AM Signed Patient informed and verbalized understanding. RHIANNON Jean Sherrie, RN 02/26/2024 8:52 AM Signed Patient calling with the following: (Also see previous notes below). Update: Patient states she began taking iron supplements last Monday. Reports yesterday, 02/25/24 she began to have black tarry stools. Denies fever, abdominal pain, weakness, lightheadedness, N/V, bloating, chest pain or back pain. Reports she usually has some SOB which is not new, but over the coarse of 1-2 weeks she has noticed being worse. Pt states she is not sure if it is due to worsening scoliosis or other factors. No distress at time of call. Speaking full sentences. Question: Is patient to have CBC and IRON/TIBC completed now? Order was placed 02/19/24. FYI: Patient has appt with Dr. Hamlin as advised by Dr. Rascon, on 03/05. She will see if she can get seen sooner. Please call patient with PCP response. Thank you. Markus Rascon MD 02/26/2024 9:03 AM Signed Iron will usually turn the stools blackish green. If it is truly tar like needs evaluated here or ER this am to rule out gi bleed. Anamaria Ceron, DIANNE 02/26/2024 9:49 AM Signed Pt called in and reports the black stool is like judith and then she would have brown stool, almost like she is constipated. Denies black tarry stool said the black stools were judith. She reports yesterday the stools was all black, but today she is back to some black judith with brown stool. She reports she normally has 1 BM daily. Denies any bright red in toilet. Pt states she had a hysterectomy with reconstruction December 18 and she had taken Colase right after, but she doesn't think it helped. She said she can take those again if the provider thins she should. Pt reports the black judith come out easily, but the brown stool is harder to get out, but she doesn't strain after the surgery, because she doesn't want to mess anything up. She reports BMs are about the same size as normal if not a little bigger. Pt reports she drinks 4-5 glasses of water a day and this is her pushing more water. She states she cut out coffee, because her one pill says she isn't supposed to drink it. Is there anything the provider recommends she take to help with BMs. Markus Rascon MD 02/26/2024 9:53 AM Signed Stool softener with the iron. Push fluids. If does have black tarry stools, needs looked at right away Julia Cook LPN 02/26/2024 10:00 AM Signed Patient notified. Allergies As of Date: 02/21/2024 Noted Allergy Reaction AMOXICILLIN 04/22/2005 2 - Rash ASA (SALICYLATES) 04/22/2005 7 - Swelling Comments: lip swelling DICLOFENAC 02/21/2006 12 - Shortness of Breath IODINE 04/22/2005 12 - Shortness of Breath MONISTAT 1 (TIOCONAZOLE) 04/22/2005 5 - Intolerance Comments: Burning Date Reviewed: 02/12/2024 Reviewed by: Julia Cook LPN - Fully Assessed Reason for Visit: Patient Question [6787] Prescriptions as of 02/26/2024 - ferrous sulfate 325 mg (65 mg iron) tablet Take 1 tablet by mouth two times a day with meals. - dilTIAZem CD (CARDIZEM CD) 180 mg 24 hr capsule Take 1 capsule by mouth once daily. - albuterol HFA (VENTOLIN HFA) 90 mcg/actuation inhaler Inhale 2 Puffs as instructed every 4 hours as needed for wheezing/shortness of breath. - fluticasone-salmeterol (WIXELA INHUB) 250-50 mcg/dose inhaler Inhale 1 Puff as instructed two times a day. - calcium citrate (CITRACAL ORAL) Take 2 capsules by mouth two times a day. - clindamycin (CLEOCIN T) 1 % gel Apply to affected area once daily. - denosumab (PROLIA) 60 mg/mL Inject subcutaneously once every 6 months. - melatonin 3 mg tablet Take 3 mg by mouth. qhs - acetaminophen 325 mg cap Take by mouth as needed. - MULTIVITAMIN ORAL Take 1 tablet by mouth once daily. Problem List As Of Date (more content not included)... [facility]FAMP[facility] VANDANA MITCHELL ([id number]) 1950 F NFR Date Time Provider Department 02/19/24 MARKUS RASCON [facility] During your visit today, we recorded the following information about you: Markus Rascon MD 02/19/2024 12:42 PM Signed Had blood in stool and iron deficiency anemia. Start iron. Follow labs in one month. Needs to see surgery to rule out gi tract blood loss as cause of labs and weight loss. Julia Cook LPN 02/19/2024 12:50 PM Signed Patient notified and verbalizes understanding. PSS please help set her back up with Dr Hamlin. Allergies As of Date: 02/19/2024 Noted Allergy Reaction AMOXICILLIN 04/22/2005 2 - Rash ASA (SALICYLATES) 04/22/2005 7 - Swelling Comments: lip swelling DICLOFENAC 02/21/2006 12 - Shortness of Breath IODINE 04/22/2005 12 - Shortness of Breath MONISTAT 1 (TIOCONAZOLE) 04/22/2005 5 - Intolerance Comments: Burning Date Reviewed: 02/12/2024 Reviewed by: Julia Cook LPN - Fully Assessed Reason for Visit: Results [95] Primary Visit Diagnosis:Iron deficiency anemia, unspecified iron deficiency anemia type [D50.9] Other Visit Diagnoses:Family history of colon cancer [Z80.0] Weight loss [R63.4] Heme positive stool [R19.5] Order(s):IRON AND TIBC [SQIRON] Order #: [id number] FUTURE COMPLETE BLOOD COUNT AND DIFFERENTIAL [SQCBCDIF] Order #: [id number] FUTURE ferrous sulfate 325 mg (65 mg iron) tabletTake 1 tablet by mouth two times a day with meals.Disp: 60 tabletRfl: 11 CONSULT TO GENERAL SURGERY [6549] Order #: [id number]: 1 FUTURE Prescriptions as of 03/21/2024 - dilTIAZem CD (CARDIZEM CD, CARTIA XT) 180 mg 24 hr capsule take 1 capsule by mouth once daily - docusate sodium (COLACE) 100 mg capsule Take 1 capsule by mouth two times a day as needed for constipation. - ferrous sulfate 325 mg (65 mg iron) tablet Take 1 tablet by mouth two times a day with meals. - albuterol HFA (VENTOLIN HFA) 90 mcg/actuation inhaler Inhale 2 Puffs as instructed every 4 hours as needed for wheezing/shortness of breath. - fluticasone-salmeterol (WIXELA INHUB) 250-50 mcg/dose inhaler Inhale 1 Puff as instructed two times a day. - calcium citrate (CITRACAL ORAL) Take 2 capsules by mouth two times a day. - clindamycin (CLEOCIN T) 1 % gel Apply to affected area once daily. - denosumab (PROLIA) 60 mg/mL Inject subcutaneously once every 6 months. - melatonin 3 mg tablet Take 3 mg by mouth. qhs - acetaminophen 325 mg cap Take by mouth as needed. - MULTIVITAMIN ORAL Take 1 tablet by mouth once daily. 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]01/09/2011 Family history of colon cancer [Z80.0] 07/06/2011 Bursitis of right shoulder [M75.51] 10/10/2011 08/09/2018 Osteoporosis [M81.0] 10/10/2011 Psychophysiological insomnia [F51.04] 10/26/2011 Multinodular thyroid [E04.2] 10/27/2011 Other pulmonary embolism and infarction (HCC) [*07/25/2012 07/21/2016 Complete uterovaginal prolapse [N81.3] 01/09/2015 03/30/2016 Pelvic muscle wasting [N81.84] 01/09/2015 08/09/2018 Postmenopausal atrophic vaginitis [N95.2] 01/09/2015 Muscle weakness [M62.81] 02/16/2015 07/21/2016 Restrictive 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 *07/31/2015 Incomplete uterovaginal prolapse [N81.2] 04/05/2016 Monoclonal gammopathy [D47.2] 03/30/2017 Hypercalcemia [E83.52] 08/09/2018 Mitral valve prolapse [I34.1] 08/09/2018 09/16/2022 Bilateral carotid artery stenosis [I65.23] 08/09/2018 Obstructive cardiomyopathy (HCC) [I42.8] 01/28/2019 Precordial pain [R07.2] 01/28/2019 09/16/2022 Dyspnea on exertion [R06.09] 05/31/2019 09/16/2022 SVT (supraventricular tachycardia) (HCC) [I47.1*01/14/2020 Screening for colon cancer [Z12.11] 09/24/2020 09/24/2020 Murmur [R01.1] 10/05/2020 09/16/2021 HOCM (hypertrophic obstructive cardiomyopathy) *10/05/2020 Age-related osteoporosis without current pathol*09/10/2021 06/13/2023 Closed fracture of distal radius and ulna [S52.*03/18/2022 Cyst of kidney, acquired [N28.1] 02/18/2022 Greater trochanteric bursitis [M70.60] 03/18/2022 09/16/2022 Normal pelvic exam [Z01.419] 01/24/2017 09/16/2022 Mild intermittent asthma without complication [*03/22/2022 Dizziness [R42] 11/17/2022 Epistaxis [R04.0] 11/17/2022 06/13/2023 Prescriptions ordered this encounter Disp Refills Start End FERROUS SULFATE 325 MG (65 MG IRON) * 60 t* 11 02/19/2024 02/18/2025 Route: ORAL Sig: Take 1 tablet by mouth two times a day with meals. Encounter Status:Closed by MARKUS RASCON on 03/21/24 Normal [facility] CBC W Auto Differential pane l (Bld)on 02-16-2024 Basophils (Bld) [#/Vol] 0.09 10*3/uL Normal <0.11 [facility] Comment on above: Order Comment: Speci men Type: BLOOD SPECIMENOrdering Facility: [facility] Address: [address] [place] [address] Performed By: #### 5 7021-8 ####[facility] LABCLIA [id number] [place] [address] [place] Basophils/100 WBC (Bld) 1.4 % Normal [facility] Comment on above: Order Comment: Speci men Type: BLOOD SPECIMENOrdering Facility: [facility] Address: [address] [place] [address] Performed By: #### 5 7021-8 ####[facility] LABCLIA [id number] [place] [address] [place] Differential cell count method Nom (Bld) Auto Normal [facility] Comment on above: Order Comment: Speci men Type: BLOOD SPECIMENOrdering Facility: [facility] Address: [address] [place] [address] Performed By: #### 5 7021-8 ####[facility] LABCLIA [id number] [place] [address] [place] Eosinophils (Bld) [#/Vol] 0.28 10*3/uL Normal <0.46 [facility] Comment on above: Order Comment: Speci men Type: BLOOD SPECIMENOrdering Facility: [facility] Address: [address] [place] [address] Performed By: #### 5 7021-8 ####[facility] LABCLIA [id number] [place] [address] [place] Eosinophils/100 WBC (Bld) 4.2 % Normal [facility] Comment on above: Order Comment: Speci men Type: BLOOD SPECIMENOrdering Facility: [facility] Address: [address] [place] [address] Performed By: #### 5 7021-8 ####[facility] LABCLIA [id number] [place] [address] [place] Erythrocyte distribution width (RBC) [Ratio] 14.2 % Normal 11.5-15.0 [facility] Comment on above: Order Comment: Speci men Type: BLOOD SPECIMENOrdering Facility: [facility] Address: [address] [place] [address] Performed By: #### 5 7021-8 ####[facility] LABCLIA [id number] [place] [address] [place] Hematocrit (Bld) [Volume fraction] 34.6 % Low 36.0-46.0 [facility] Comment on above: Order Comment: Speci men Type: BLOOD SPECIMENOrdering Facility: [facility] Address: [address] [place] [address] Performed By: #### 5 7021-8 ####[facility] LABCLIA [id number] [place] [address] [place] Hemoglobin (Bld) [Mass/Vol] 10.8 g/dL Low 11.5-15.5 [facility] Comment on above: Order Comment: Speci men Type: BLOOD SPECIMENOrdering Facility: [facility] Address: [address] [place] [address] Performed By: #### 5 7021-8 ####[facility] LABCLIA [id number] [place] [address] [place] Immature granulocytes (Bld) [#/Vol] 10*3/uL Normal <0.10 [facility] Comment on above: Order Comment: Speci men Type: BLOOD SPECIMENOrdering Facility: [facility] Address: [address] [place] [address] Performed By: #### 5 7021-8 ####[facility] LABCLIA [id number] [place] [address] [place] Immature granulocytes/100 WBC (Bld) 0.3 % Normal [facility] Comment on above: Order Comment: Speci men Type: BLOOD SPECIMENOrdering Facility: [facility] Address: [address] [place] [address] Performed By: #### 5 7021-8 ####[facility] LABCLIA [id number] [place] [address] [place] Lymphocytes (Bld) [#/Vol] 1.11 10*3/uL Normal 1.00-4.00 [facility] Comment on above: Order Comment: Speci men Type: BLOOD SPECIMENOrdering Facility: [facility] Address: [address] [place] [address] Performed By: #### 5 7021-8 ####[facility] LABCLIA [id number] [place] [address] [place] Lymphocytes/100 WBC (Bld) 16.8 % Normal [facility] Comment on above: Order Comment: Speci men Type: BLOOD SPECIMENOrdering Facility: [facility] Address: [address] [place] [address] Performed By: #### 5 7021-8 ####[facility] LABCLIA [id number] [place] [address] [place] MCH (RBC) [Entitic mass] 25.2 pg Low 26.0-34.0 [facility] Comment on above: Order Comment: Speci men Type: BLOOD SPECIMENOrdering Facility: [facility] Address: [address] [place] [address] Performed By: #### 5 7021-8 ####[facility] LABCLIA [id number] [place] [address] [place] MCHC (RBC) [Mass/Vol] 31.2 g/dL Normal 30.5-36.0 [facility] Comment on above: Order Comment: Speci men Type: BLOOD SPECIMENOrdering Facility: [facility] Address: [address] [place] [address] Performed By: #### 5 7021-8 ####[facility] LABCLIA [id number] [place] [address] [place] MCV (RBC) [Entitic vol] 80.7 fL Normal 80.0-100.0 [facility] Comment on above: Order Comment: Speci men Type: BLOOD SPECIMENOrdering Facility: [facility] Address: [address] [place] [address] Performed By: #### 5 7021-8 ####[facility] LABIA [id number] [place] [address] [place] Monocytes (Bld) [#/Vol] 0.69 10*3/uL Normal <0.87 [facility] Comment on above: Order Comment: Speci men Type: BLOOD SPECIMENOrdering Facility: [facility] Address: [address] [place] [address] Performed By: #### 5 7021-8 ####[facility] LABIA [id number] [place] [address] [place] Monocytes/100 WBC (Bld) 10.5 % Normal [facility] Comment on above: Order Comment: Speci men Type: BLOOD SPECIMENOrdering Facility: [facility] Address: [address] [place] [address] Performed By: #### 5 7021-8 ####[facility] LABCLIA [id number] [place] [address] [place] Neutrophils (Bld) [#/Vol] 4.41 10*3/uL Normal 1.45-7.50 [facility] Comment on above: Order Comment: Speci men Type: BLOOD SPECIMENOrdering Facility: [facility] Address: [address] [place] [address] Performed By: #### 5 7021-8 ####[facility] LABCLIA [id number] [place] [address] [place] Neutrophils/100 WBC (Bld) 66.8 % Normal [facility] Comment on above: Order Comment: Speci men Type: BLOOD SPECIMENOrdering Facility: [facility] Address: [address] [place] [address] Performed By: #### 5 7021-8 ####[facility] LABIA [id number] [place] [address] [place] Nucleated RBC (Bld) [#/Vol] 10*3/uL Normal <0.01 [facility] Comment on above: Order Comment: Speci men Type: BLOOD SPECIMENOrdering Facility: [facility] Address: [address] [place] [address] Performed By: #### 5 7021-8 ####[facility] LABIA [id number] [place] [address] [place] Nucleated RBC/100 WBC (Bld) [Ratio] 0.0 /100 WBC Normal [facility] Comment on above: Order Comment: Speci men Type: BLOOD SPECIMENOrdering Facility: [facility] Address: [address] [place] [address] Performed By: #### 5 7021-8 ####[facility] LABIA [id number] [place] [address] [place] Platelet mean volume (Bld) [Entitic vol] 11.1 fL Normal 9.0-12.7 [facility] Comment on above: Order Comment: Speci men Type: BLOOD SPECIMENOrdering Facility: [facility] Address: [address] [place] [address] Performed By: #### 5 7021-8 ####[facility] LABIA [id number] [place] [id number] [place] Platelets (Bld) [#/Vol] 317 10*3/uL Normal 150-400 [facility] Comment on above: Order Comment: Speci men Type: BLOOD SPECIMENOrdering Facility: [facility] Address: [address] [place] [address] Performed By: #### 5 7021-8 ####[facility] LABIA [id number] [place] [address] [place] RBC (Bld) [#/Vol] 4.29 10*6/uL Normal 3.90-5.20 [facility] Comment on above: Order Comment: Speci men Type: BLOOD SPECIMENOrdering Facility: [facility] Address: [address] [place] [address] Performed By: #### 5 7021-8 ####[facility] [id number] [place] [address] [place] WBC (Bld) [#/Vol] 6.60 10*3/uL Normal 3.70-11.00 [facility] Comment on above: Order Comment: Speci men Type: BLOOD SPECIMENOrdering Facility: [facility] Address: [address] [place] [address] Performed By: #### 5 7021-8 ####[facility] [id number] [place] [id number] [place] Ferritin SerPl-mCncon 2023 Ferritin [Mass/Vol] 120.0 ng/mL Normal 14.7-205.1 [facility] Comment on above: Order Comment: Speci men Type: BLOOD SPECIMENOrdering Facility: [facility] Address: [address] [place] [address] Performed By: #### 5 0190-8, 2132-9, 2284-8, 2276-4 ####[facility] LABCLIA [id number] [place] [address] [place] Folate SerPl-mCncon 02-16-20 24 Folate [Mass/Vol] ng/mL Normal >4.7 [facility] Comment on above: Order Comment: Speci men Type: BLOOD SPECIMENOrdering Facility: [facility] Address: [address] [place] [address] Result Comment: A re sult of > 20 ng/mL is not necessarily indicative of a pathologic or treatable condition: it reflects a limitation of the test methodology. Assay reference range: 4.8 to 24.2 ng/mL. Suitable for detection of folate deficiency. Reference: Folate III (Folate III) [package insert V 1.0 Slovak]. [employer], [place], [place]: April 2015. Performed By: #### 5 0190-8, 2132-9, 4-8, 2276-4 ####[facility] LABIA [id number] [place] [address] [place] Hemoccult Stl Ql IAon 2023 Lower GI hemoglobin IA Ql (Stl) Positive Abnormal Negative [facility] Comment on above: Order Comment: Speci men Type: STOOL SPECIMENOrdering Facility: [facility] Address: [address] [place] [address] Performed By: #### 2 9771-3 ####[facility] LABIA [id number] [place] [address] [place] Iron and Iron binding capaci ty panelon 02-16-2024 Iron [Mass/Vol] 36 ug/dL Low 41-186 [facility] Comment on above: Order Comment: Speci men Type: BLOOD SPECIMENOrdering Facility: [facility] Address: [address] [place] [address] Performed By: #### 5 0190-8, 2132-9, 4-8, 2276-4 ####[facility] LABIA [id number] [address] [place] Iron binding capacity [Mass/Vol] 383 ug/dL Normal 232-386 [facility] Comment on above: Order Comment: Speci men Type: BLOOD SPECIMENOrdering Facility: [facility] Address: [address] [place] [address] Performed By: #### 5 0190-8, 2131-9, 8, 6-4 ####[facility] LABIA [id number] [address] [facility] Iron/TIBC [Molar ratio] 9.4 % Low 15.0-57.0 [facility] Comment on above: Order Comment: Speci men Type: BLOOD SPECIMENOrdering Facility: [facility] Address: [address] [place] [address] Performed By: #### 5 0190-8, 9, 8, 2275-4 ####[facility] [id number] [place] [address] [place] Vit B12 [facility] 02-15- 024 Cobalamin (Vitamin B12) [Mass/Vol] 846 pg/mL Normal 232-1245 [facility] Comment on above: Order Comment: Speci men Type: BLOOD SPECIMENOrdering Facility: [facility] Address: [address] [place] [address] Performed By: #### 5 0190-8, 9, 8, 2275-4 ####[facility] LABIA [id number] [place] [id number] [place] CNPDiane 02-14-2024 MARIBELLN Telephone (FAMPWS) VANDANA MITCHELL ([id number]) 1950 F NFR Date Time Provider Department 02/14/24 MARKUS RASCONWS During your visit today, we recorded the following information about you: Markus Rascon MD 02/14/2024 5:07 AM Signed Labs show a new anemia. Repeat labs including ifobt in the next week Gail Dan RN 02/14/2024 9:15 AM Signed Call placed to patient and results and provider message reviewed. Lab appointment scheduled for Monday02/20/2024. Gail Dan RN Allergies As of Date: 02/14/2024 Noted Allergy Reaction AMOXICILLIN 04/22/2005 2 - Rash ASA (SALICYLATES) 04/22/2005 7 - Swelling Comments: lip swelling DICLOFENAC 02/21/2006 12 - Shortness of Breath IODINE 04/22/2005 12 - Shortness of Breath MONISTAT 1 (TIOCONAZOLE) 04/22/2005 5 - Intolerance Comments: Burning Date Reviewed: 02/12/2024 Reviewed by: Julia Cook LPN - Fully Assessed Reason for Visit: Results [95] Primary Visit Diagnosis:Anemia, unspecified type [D64.9] Order(s):COMPLETE BLOOD COUNT AND DIFFERENTIAL [SQCBCDIF] Order #: [id number] FUTURE IRON AND TIBC [SQIRON] Order #: [id number] FUTURE VITAMIN B12 [SQB12] Order #: [id number] FUTURE FOLATE, SERUM [SQSERFOL] Order #: [id number] FUTURE FERRITIN [SQFERR] Order #: [id number] FUTURE IMMUNOCHEMICAL FECAL OCCULT BLOOD TEST [SQIFOBT] Order #: [id number] FUTURE Prescriptions as of 02/14/2024 - dilTIAZem CD (CARDIZEM CD) 180 mg 24 hr capsule Take 1 capsule by mouth once daily. - albuterol HFA (VENTOLIN HFA) 90 mcg/actuation inhaler Inhale 2 Puffs as instructed every 4 hours as needed for wheezing/shortness of breath. - fluticasone-salmeterol (WIXELA INHUB) 250-50 mcg/dose inhaler Inhale 1 Puff as instructed two times a day. - calcium citrate (CITRACAL ORAL) Take 2 capsules by mouth two times a day. - clindamycin (CLEOCIN T) 1 % gel Apply to affected area once daily. - denosumab (PROLIA) 60 mg/mL Inject subcutaneously once every 6 months. - melatonin 3 mg tablet Take 3 mg by mouth. qhs - acetaminophen 325 mg cap Take by mouth as needed. - MULTIVITAMIN ORAL Take 1 tablet by mouth once daily. Problem List As Of Date 02/14/2024 Noted Resolved GENERAL OSTEOARTHROSIS [M15.9] 11/18/2005 07/03/2015 Essential hypertension [I10] 11/18/2005 Non-rheumatic mitral regurgitation [I34.0] Unspecified asthma [J45.909] 04/11/2011 Disorder of bone and cartilage, unspecified [M8* 12/04/2019 Cervicalgia [M54.2] 08/28/2007 08/09/2018 Idiopathic scoliosis and kyphoscoliosis [M41.20]01/09/2011 Family history of colon cancer [Z80.0] 07/06/2011 Bursitis of right shoulder [M75.51] 10/10/2011 08/09/2018 Osteoporosis [M81.0] 10/10/2011 Psychophysiological insomnia [F51.04] 10/26/2011 Multinodular thyroid [E04.2] 10/27/2011 Other pulmonary embolism and infarction (HCC) [*07/25/2012 07/21/2016 Complete uterovaginal prolapse [N81.3] 01/09/2015 03/30/2016 Pelvic muscle wasting [N81.84] 01/09/2015 08/09/2018 Postmenopausal atrophic vaginitis [N95.2] 01/09/2015 Muscle weakness [M62.81] 02/16/2015 07/21/2016 Restrictive 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 *07/31/2015 Incomplete uterovaginal prolapse [N81.2] 04/05/2016 Monoclonal gammopathy [D47.2] 03/30/2017 Hypercalcemia [E83.52] 08/09/2018 Mitral valve prolapse [I34.1] 08/09/2018 09/16/2022 Bilateral carotid artery stenosis [I65.23] 08/09/2018 Obstructive cardiomyopathy (HCC) [I42.8] 01/28/2019 Precordial pain [R07.2] 01/28/2019 09/16/2022 Dyspnea on exertion [R06.09] 05/31/2019 09/16/2022 SVT (supraventricular tachycardia) (HCC) [I47.1*01/14/2020 Screening for colon cancer [Z12.11] 09/24/2020 09/24/2020 Murmur [R01.1] 10/05/2020 09/16/2021 HOCM (hypertrophic obstructive cardiomyopathy) *10/05/2020 Age-related osteoporosis without current pathol*09/10/2021 06/13/2023 Closed fracture of distal radius and ulna [S52.*03/18/2022 Cyst of kidney, acquired [N28.1] 02/18/2022 Greater trochanteric bursitis [M70.60] 03/18/2022 09/16/2022 Normal pelvic exam [Z01.419] 01/24/2017 09/16/2022 Mild intermittent asthma without complication [*03/22/2022 Dizziness [R42] 11/17/2022 Epistaxis [R04.0] 11/17/2022 06/13/2023 Encounter Status:Closed by GAIL DAN on 02/14/24 Normal [facility] CBC W Auto Differential pane l (Bld)on 02-13-2024 Basophils (Bld) [#/Vol] 0.13 10*3/uL High <0.11 [facility] Comment on above: Order Comment: Speci men Type: BLOOD SPECIMENOrdering Facility: [facility] Address: [address] [place] [address] Performed By: #### 5 7021-8 ####[facility] LABCLIA [id number] [place] [address] [address] [place] Basophils/100 WBC (Bld) 2.0 % Normal [facility] Comment on above: Order Comment: Speci men Type: BLOOD SPECIMENOrdering Facility: [facility] Address: [address] [place] [address] Performed By: #### 5 7021-8 ####[facility] LABCLIA [id number] [place] [address] [place] Differential cell count method Nom (Bld) Auto Normal [facility] Comment on above: Order Comment: Speci men Type: BLOOD SPECIMENOrdering Facility: [facility] Address: [address] [place] [address] Performed By: #### 5 7021-8 ####[facility] LABCLIA [id number] [place] [address] [place] Eosinophils (Bld) [#/Vol] 0.46 10*3/uL High <0.46 [facility] Comment on above: Order Comment: Speci men Type: BLOOD SPECIMENOrdering Facility: [facility] Address: [address] [place] [address] Performed By: #### 5 7021-8 ####[facility] LABCLIA [id number] [place] [address] [place] Eosinophils/100 WBC (Bld) 6.9 % Normal [facility] Comment on above: Order Comment: Speci men Type: BLOOD SPECIMENOrdering Facility: [facility] Address: [address] [place] [address] Performed By: #### 5 7021-8 ####[facility] LABCLIA [id number] [place] [address] [place] Erythrocyte distribution width (RBC) [Ratio] 13.9 % Normal 11.5-15.0 [facility] Comment on above: Order Comment: Speci men Type: BLOOD SPECIMENOrdering Facility: [facility] Address: [address] [place] [address] Performed By: #### 5 7021-8 ####[facility] LABCLIA [id number] [place] [address] [place] Hematocrit (Bld) [Volume fraction] 35.7 % Low 36.0-46.0 [facility] Comment on above: Order Comment: Speci men Type: BLOOD SPECIMENOrdering Facility: [facility] Address: [address] [place] [address] Performed By: #### 5 7021-8 ####[facility] LABCLIA [id number] [place] [address] [place] Hemoglobin (Bld) [Mass/Vol] 11.1 g/dL Low 11.5-15.5 [facility] Comment on above: Order Comment: Speci men Type: BLOOD SPECIMENOrdering Facility: [facility] Address: [address] [place] [address] Performed By: #### 5 7021-8 ####[facility] LABCLIA [id number] [place] [address] [place] Immature granulocytes (Bld) [#/Vol] 0.03 10*3/uL Normal <0.10 [facility] Comment on above: Order Comment: Speci men Type: BLOOD SPECIMENOrdering Facility: [facility] Address: [address] [place] [address] Performed By: #### 5 7021-8 ####[facility] LABCLIA [id number] [place] [address] [place] Immature granulocytes/100 WBC (Bld) 0.5 % Normal [facility] Comment on above: Order Comment: Speci men Type: BLOOD SPECIMENOrdering Facility: [facility] Address: [address] [place] [address] Performed By: #### 5 7021-8 ####[facility] LABCLIA [id number] [place] [address] [place] Lymphocytes (Bld) [#/Vol] 1.13 10*3/uL Normal 1.00-4.00 [facility] Comment on above: Order Comment: Speci men Type: BLOOD SPECIMENOrdering Facility: [facility] Address: [address] [place] [address] Performed By: #### 5 7021-8 ####[facility] LABCLIA [id number] [place] [address] [place] Lymphocytes/100 WBC (Bld) 17.0 % Normal [facility] Comment on above: Order Comment: Speci men Type: BLOOD SPECIMENOrdering Facility: [facility] Address: [address] [place] [address] Performed By: #### 5 7021-8 ####[facility] LABCLIA [id number] [place] [address] [place] MCH (RBC) [Entitic mass] 25.3 pg Low 26.0-34.0 [facility] Comment on above: Order Comment: Speci men Type: BLOOD SPECIMENOrdering Facility: [facility] Address: [address] [place] [address] Performed By: #### 5 7021-8 ####[facility] LABCLIA [id number] [place] [address] [place] MCHC (RBC) [Mass/Vol] 31.1 g/dL Normal 30.5-36.0 [facility] Comment on above: Order Comment: Speci men Type: BLOOD SPECIMENOrdering Facility: [facility] Address: [address] [place] [address] Performed By: #### 5 7021-8 ####[facility] LABIA [id number] [place] [address] [place] MCV (RBC) [Entitic vol] 81.5 fL Normal 80.0-100.0 [facility] Comment on above: Order Comment: Speci men Type: BLOOD SPECIMENOrdering Facility: [facility] Address: [address] [place] [address] Performed By: #### 5 7021-8 ####[facility] LABCLIA [id number] [place] [address] [place] Monocytes (Bld) [#/Vol] 0.80 10*3/uL Normal <0.87 [facility] Comment on above: Order Comment: Speci men Type: BLOOD SPECIMENOrdering Facility: [facility] Address: [address] [place] [id number] Performed By: #### 5 7021-8 ####[facility] LABCLIA [id number] [address] [address] [place] Monocytes/100 WBC (Bld) 12.0 % Normal [facility] Comment on above: Order Comment: Speci men Type: BLOOD SPECIMENOrdering Facility: [facility] Address: [address] [place] [address] Performed By: #### 5 7021-8 ####[facility] LABCLIA [id number] [place] [address] [place] Neutrophils (Bld) [#/Vol] 4.11 10*3/uL Normal 1.45-7.50 [facility] Comment on above: Order Comment: Speci men Type: BLOOD SPECIMENOrdering Facility: [facility] Address: [address] [place] [address] Performed By: #### 5 7021-8 ####[facility] LABCLIA [id number] [place] [address] [place] Neutrophils/100 WBC (Bld) 61.6 % Normal [facility] Comment on above: Order Comment: Speci men Type: BLOOD SPECIMENOrdering Facility: [facility] Address: [address] [place] [address] Performed By: #### 5 7021-8 ####[facility] LABCLIA [id number] [place] [id number] [place] Nucleated RBC (Bld) [#/Vol] 10*3/uL Normal <0.01 [facility] Comment on above: Order Comment: Speci men Type: BLOOD SPECIMENOrdering Facility: [facility] Address: [address] [place], [place] [address] Performed By: #### 5 7021-8 ####[facility] LABCLIA [id number] [place] [address] [place] Nucleated RBC/100 WBC (Bld) [Ratio] 0.0 /100 WBC Normal [facility] Comment on above: Order Comment: Speci men Type: BLOOD SPECIMENOrdering Facility: [facility] Address: [address] [place] [address] Performed By: #### 5 7021-8 ####[facility] LABIA [id number] [place] [address] [place] Platelet mean volume (Bld) [Entitic vol] 11.0 fL Normal 9.0-12.7 [facility] Comment on above: Order Comment: Speci men Type: BLOOD SPECIMENOrdering Facility: [facility] Address: [address] [place] [address] Performed By: #### 5 7021-8 ####[facility] LABIA [id number] [place] [address] [place] Platelets (Bld) [#/Vol] 312 10*3/uL Normal 150-400 [facility] Comment on above: Order Comment: Speci men Type: BLOOD SPECIMENOrdering Facility: [facility] Address: [address] [place] [address] Performed By: #### 5 7021-8 ####[facility] [id number] [place] [address] [place] RBC (Bld) [#/Vol] 4.38 10*6/uL Normal 3.90-5.20 [facility] Comment on above: Order Comment: Speci men Type: BLOOD SPECIMENOrdering Facility: [facility] Address: [address] [place] [address] Performed By: #### 5 7021-8 ####[facility] LABIA [id number] [place] [address] [place] WBC (Bld) [#/Vol] 6.66 10*3/uL Normal 3.70-11.00 [facility] Comment on above: Order Comment: Speci men Type: BLOOD SPECIMENOrdering Facility: [facility] Address: [address] [place] [address] Performed By: #### 5 7021-8 ####[facility] LABCLIA [id number] [place] [id number] [place] Comprehensive metabolic 2000 panelon 02-13-2024 Albumin [Mass/Vol] 4.2 g/dL Normal 3.9-4.9 [facility] Comment on above: Order Comment: Speci men Type: BLOOD SPECIMENOrdering Facility: [facility] Address: [address] [place] [address] Performed By: #### 1 4338-8, 6-3, 70926-6 ####[facility] LABIA [id number] [place] [address] [place] ALP [Catalytic activity/Vol] 78 U/L Normal 34-123 [facility] Comment on above: Order Comment: Speci men Type: BLOOD SPECIMENOrdering Facility: [facility] Address: [address] [place] [address] Performed By: #### 1 4338-8, 3015-3, 72281-9 ####[facility] LABIA [id number] [place] [address] [place] ALT [Catalytic activity/Vol] 13 U/L Normal 7-38 [facility] Comment on above: Order Comment: Speci men Type: BLOOD SPECIMENOrdering Facility: [facility] Address: [address] [place] [address] Performed By: #### 1 4338-8, 3, ####[facility] LABIA [id number] [address] [address] [place] Anion gap [Moles/Vol] 10 mmol/L Normal 8-15 [facility] Comment on above: Order Comment: Speci men Type: BLOOD SPECIMENOrdering Facility: [facility] Address: [address] [place], [place] [address] Performed By: #### 1 4338-8, 3015-3, ####[facility] LABCLIA [id number] [address] [address] [place] AST [Catalytic activity/Vol] 18 U/L Normal 13-35 [facility] Comment on above: Order Comment: Speci men Type: BLOOD SPECIMENOrdering Facility: [facility] Address: [address] [place], [place] [address] Performed By: #### 1 4338-8, 3015-3, ####[facility] LABCLIA [id number] [place] [address] [place] Bilirubin [Mass/Vol] 0.2 mg/dL Normal 0.2-1.3 [facility] Comment on above: Order Comment: Speci men Type: BLOOD SPECIMENOrdering Facility: [facility] Address: [address] [place] [address] Performed By: #### 1 4338-8, 3, ####[facility] LABCLIA [id number] [place] [address] [place] Calcium [Mass/Vol] 10.1 mg/dL Normal 8.5-10.2 [facility] Comment on above: Order Comment: Speci men Type: BLOOD SPECIMENOrdering Facility: [facility] Address: [address] [place], [place] [id number] Performed By: #### 1 4338-8, 3, 91488-7 ####[facility] LABCLIA [id number] [place] [id number] [place] Chloride [Moles/Vol] 100 mmol/L Normal 98-107 [facility] Comment on above: Order Comment: Speci men Type: BLOOD SPECIMENOrdering Facility: [facility] Address: [address] [place] [address] Performed By: #### 1 4338-8, 3015-3, 15264-8 ####[facility] LABCLIA [id number] [place] [id number] [place] CO2 [Moles/Vol] 30 mmol/L Normal 22-30 [facility] Comment on above: Order Comment: Speci men Type: BLOOD SPECIMENOrdering Facility: [facility] Address: [address] [place] [address] Performed By: #### 1 4338-8, 3015-3, 57245-1 ####[facility] LABIA [id number] [place] [address] [place] Creatinine [Mass/Vol] 0.66 mg/dL Normal 0.58-0.96 [facility] Comment on above: Order Comment: Speci men Type: BLOOD SPECIMENOrdering Facility: [facility] Address: [address] [place] [address] Performed By: #### 1 4338-8, 3, 24309-4 ####[facility] LABIA [id number] [place] [address] [place] Creatinine and Glomerular filtration rate.predicted panel (S/P/Bld) 92 mL/min/1.73m??? Normal >=60 [facility] Comment on above: Order Comment: Speci men Type: BLOOD SPECIMENOrdering Facility: [facility] Address: [address] [place] [address] Result Comment: Betsy mated Glomerular Filtration Rate (eGFR) is calculated using the 2020 CKD-EPI creatinine equation. This equation utilizes serum creatinine, sex, and age as parameters. The creatinine assay has traceable calibration to isotope dilution-mass spectrometry. Refer to KDIGO guidelines for clinical interpretation. In patients with unstable renal function, e.g. those with acute kidney injury, the eGFR may not accurately reflect actual GFR. Performed By: #### 1 4338-8, 3015-3, 86375-0 ####[facility] LABCLIA [id number] [place] [address] [place] Glucose [Mass/Vol] 103 mg/dL High 74-99 [facility] Comment on above: Order Comment: Speci men Type: BLOOD SPECIMENOrdering Facility: [facility] Address: [address] [place] [address] Result Comment: The [place] Diabetes Association (ADA) provides guidance for cutoff values for fasting glucose and random glucose. The ADA defines fasting as no caloric intake for at least 8 hours. Fasting plasma glucose results between 100 to 125 mg/dL indicate increased risk for diabetes (prediabetes). Fasting plasma glucose results greater than or equal to 126 mg/dL meet the criteria for diagnosis of diabetes. In the absence of unequivocal hyperglycemia, results should be confirmed by repeat testing. In a patient with classic symptoms of hyperglycemia or hyperglycemic crisis, random plasma glucose results greater than or equal to 200 mg/dL meet the criteria for diagnosis of diabetes. Reference: Standards of Medical Care in Diabetes 2016, [place] [employer] Association. Diabetes Care. 2016.39(Suppl 1). Performed By: #### 1 4338-8, 3015-3, 06556-8 ####[facility] LABIA [id number] [place] [address] [place] Potassium [Moles/Vol] 4.0 mmol/L Normal 3.7-5.1 [facility] Comment on above: Order Comment: Speci men Type: BLOOD SPECIMENOrdering Facility: [facility] Address: [address] [place] [address] Performed By: #### 1 4338-8, 301-3, 21663-3 ####[facility] LABIA [id number] [place] [address] [place] Protein [Mass/Vol] 6.7 g/dL Normal 6.3-8.0 [facility] Comment on above: Order Comment: Speci men Type: BLOOD SPECIMENOrdering Facility: [facility] Address: [address] [place] [address] Performed By: #### 1 4338-8, 3016-3, ####[facility] LABIA [id number] [address] [address] [place] Sodium [Moles/Vol] 140 mmol/L Normal 136-144 [facility] Comment on above: Order Comment: Speci men Type: BLOOD SPECIMENOrdering Facility: [facility] Address: [address] [place] [address] Performed By: #### 1 4338-8, 3015-3, ####[facility] LABIA [id number] [address] [address] [place] Urea nitrogen [Mass/Vol] 21 mg/dL Normal 7-21 [facility] Comment on above: Order Comment: Speci men Type: BLOOD SPECIMENOrdering Facility: [facility] Address: [address] [place] [address] Performed By: #### 1 4338-8, 3, ####[facility] [id number] [place] [id number] [place] Prealb SerPl-mCncon 02-13-20 24 Prealbumin [Mass/Vol] 21 mg/dL Normal 17-36 [facility] Comment on above: Order Comment: Speci men Type: BLOOD SPECIMENOrdering Facility: [facility] Address: [address] [place] [address] Performed By: #### 1 4338-8, 3, ####[facility] LABIA [id number] [address] [address] [place] TSH SerPl-aCncon 02-13-2024 TSH Qn 2.160 m[IU]/L Normal 0.270-4.200 [facility] Comment on above: Order Comment: Speci men Type: BLOOD SPECIMENOrdering Facility: [facility] Address: [address] [place] [address] Performed By: #### 1 4338-8, 3015-3, 90305-8 ####[facility] CONSTANTIN [id number] [address] [facility] CNOVon 02-12-2024 CNOV Office Visit (FAMPWS ) VANDANA MITCHELL ([id number]) 1950 F NFR Date Time Provider Department 02/12/24 6:20 PM [facility] During your visit today, we recorded the following information about you: Pulse Blood pressure Weight 93/minute 161/84 49.2 kg Markus Rascon MD 02/12/2024 6:55 PM Signed Patient presents with: 6 Month Exam Weight Loss: Steadily decreasing weight HPI: Patient presents today for office visit for follow up. See above. Is down six labs since Jun. Had pelvic us and ct of pelvis prior to hysterectomy. No abn path on hysterectomy. Had a benign ovarian mass. Has had mammogram as well. Home bp has been ok. Had cuff validated which shows a higher diastolic on her home cuff but is fairly close on her systolic cuff. No chest pain. No shortness of breath that is new. No edema. No cough. No bowel changes that are new. No urinary issues. No dysphagia. No unusual headaches. No new bone pain. No new mole changes. Sees dermatology. Did note she had decreased appetite with surgery but had lost a little weight before that. Discussed using boost and had slacked off but will resume it. Had started to lose some weight in 2021 but had stabilized when that happened. We did do ct scans back in 2021 but it had again stabilized. Had colonoscopy in 2020. Due in 2025. Had bone survey in last year as well Her daughter feels she has anxiety but she does not feel it is significant. Gets frustrated with her memory at times. Memory still not as good as it had been Did have stress test done this spring. Did have her bone marrow and follows with pulmonary, cardiology and heme onc in the next year. Note copied and pasted from last ov in June. Scheduled tomorrow [facility] bone marrow biopsy. Saw Dr. Nolasco, Cardiology 06/12/23. History of hypertrophic cardiomyopathy. Maintained on a Cardizem. Asymptomatic. HTN: Monitors BP at home Denies new or worsening chest pain and shortness of breath. Denies headaches and dizziness No palpitations No syncope No edema Follows with Dr. Oneill. Hem/Onc XR bone from 05/09/23 showed no acute fracture or destructive osseous lesion. DXA scan from March showed significant losses both in left hip and left femoral neck since last scan. Right hip was scanned although not able to be analyzed per radiology dept. Sometimes this happens when bone mass is too low or if possibly surgery was performed on that side. These things can make it difficult to read. Is on prolia. Sees juvenal Bangura. Followed by Pulmonary. Asthma is well controlled. Pulmonary recommends continued use of her Symbicort but could decrease the dosing to 80/4.5. Patient is reluctant to do so since she seems to be doing well from a respiratory standpoint on current regimen. Very rarely having to use rescue inhaler. Memory is stable. Last time she was here she mentioned having some difficulty trying to write letters. She would really have to think about what she was writing. Denies any issues with this today. Refers to it being not so much her memory but being anxious. She gets overwhelmed easily when trying to multitask. Has some stress over the holidays. No tremors or falls. No headache, numbness or weakness. Has had carotids in the last year. MEDICATIONS: Current Outpatient Medications Medication Sig dilTIAZem CD (CARDIZEM CD) 180 mg 24 hr capsule Take 1 capsule by mouth once daily. albuterol HFA (VENTOLIN HFA) 90 mcg/actuation inhaler Inhale 2 Puffs as instructed every 4 hours as needed for wheezing/shortness of breath. fluticasone-salmeterol (WIXELA INHUB) 250-50 mcg/dose inhaler Inhale 1 Puff as instructed two times a day. calcium citrate (CITRACAL ORAL) Take 2 capsules by mouth two times a day. denosumab (PROLIA) 60 mg/mL Inject subcutaneously once every 6 months. MULTIVITAMIN ORAL Take 1 tablet by mouth once daily. clindamycin (CLEOCIN T) 1 % gel Apply to affected area once daily. melatonin 3 mg tablet Take 3 mg by mouth. qhs acetaminophen 325 mg cap Take by mouth as needed. No current facility-administered medications for this visit. ALLERGIES: ALLERGIES Allergen Reactions Amoxicillin Rash Asa [Salicylates] Swelling lip swelling Diclofenac Shortness of Breath Iodine Shortness of Breath Monistat 1 [Tiocona* Intolerance Burning PAST MEDICAL HISTORY No date: Arthritis No date: Diastolic dysfunction Comment: Grade I No date: Disorder of bone and cartilage, unspecified 2009: Diverticulosis Comment: colonoscopy No date: History of transfusion No date: HOCM (hypertrophic obstructive cardiomyopathy) (HCC) No date: Insomnia, unspecified 08/02/2011: Melanocytic Nevocellular Nevi pigmented moles of trunk: back mainly No date: Mitral valve disorders 04/2017: Monoclonal gammopathy No date: Osteoporosis No date: Other (more content not included)... Normal [facility] Office Visiton 02-06-2024 Follow-up visit [id number] David Mitchell evie 1950 F Date Provider Department Center 02/06/2024 [id number] [facility] None Family History Problem Relation Age of Onset Colon cancer Mother Hypertension Mother Cancer Mother Colon cancer Father Diabetes Father Cancer Father Hypertension Maternal Grandmother Hypertension Paternal Grandfather Family Status - Relation Status Age at Mother Father Maternal Grandmother Paternal Grandfather Level of Service:53635 [place] POSTOP FOLLOW UP VISIT RELATED TO ORIGINAL PX Reason for Visit and Comments: Post-op [483] - Thinks maybe the rectal part came undone , states it looks different, maybe hemorrhoids? Normal [facility] Progress Noteon 02-06-2024 Progress Note Female Pelvic Medici ne & Reconstructive Surgery Post-Op Visit Vandana Mitchell is a 73 y.o. female who presents for a 7 week post-op check s/p: 12/19/23 Dr. Chery Laparoscopic assisted vaginal hysterectomy with BSO Dr. Alston Uterosacral ligament vaginal vault suspension (intraperitoneal colpopexy) Anterior colporrhaphy [employer] Obtryx II transobturator midurethral sling Cystourethroscopy Pt is concerned that she may have hemorrhoids. Some constipation following surgery now resolved. She has noted some urinary urgency with running water. Post-op complications: No Bleeding: No Pain: No Abnormal vaginal discharge: No PFDI-20 Do you: Usually experience pressure in the lower abdomen? No 0 Usually experience heaviness or dullness in the pelvic area? No 0 Usually have a bulge or something falling out that you can see or feel in your vaginal area? No 0 Ever have to push on the vagina or around the rectum to have or complete a bowel movement? No 0 Usually experience a feeling of incomplete bladder emptying? No 0 Ever have to push up on a bulge in the vaginal area with your fingers to start or complete urination? No 0 Feel you need to strain too hard to have a bowel movement? No 0 Feel you have not completely emptied your bowels at the end of a bowel movement? No 0 Usually lose stool beyond your control if your stool is well formed? No 0 Usually lose stool beyond your control if your stool is loose? No 0 Usually lose gas from the rectum beyond your control? No 0 Usually have pain when you pass your stool? No 0 Experience a strong sense of urgency and have to graham to the bathroom to have a bowel movement? Yes 1 Does part of your bowel ever pass through the rectum and bulge outside during or after a bowel movement? No 0 Usually experience frequent urination? No 0 Usually experience urine leakage associated with a feeling of urgency, that is, a strong sensation of needing to go to the bathroom? Yes 1 Usually experience urine leakage related to coughing, sneezing or laughing? No 0 Usually experience small amounts of urine leakage (that is, drops)? Yes 1 Usually experience difficulty emptying your bladder? No 0 Usually experience pain or discomfort in the lower abdomen or genital region? No 0 Traffic Signal Supervisor Maintenance: Montse Davis MA OBJECTIVE: BP (!) 172/77 Pulse 78 General Appearance: no acute distress, normally developed, and affect appropriate Abdomen: abdomen is soft without significant tenderness, masses, organomegaly or guarding. Pelvic: External Genitalia: normal appearing vulva with no masses, tenderness, or lesions Vagina: vaginal incisions well healed with dissolving suture material present, cuff intact Cervix: surgically absent Urethra: normal appearing urethra with no masses, tenderness or lesions and no visible or palpable sling mesh Bimanual: no palpable masses or tenderness Rectovaginal: external anal skin tags noted Levator Ani Contraction: 1 Levator Ani Tone: normal Levator Ani Tenderness: No ASSESMENT: Vandana Mitchell is a 73 y.o. who is postop, doing well, postop course uncomplicated PLAN: 1. Postop check - Normal postop exam - Operative findings and pathology report reviewed - May resume normal activity - May resume intercourse - Ok to return to work without restrictions - Follow up in 6 months or sooner prn 2. OAB (overactive bladder) - Lifestyle and behavioral modifications, PMEs exercises discussed. 3. Anal skin tag - Discussed keeping stool consistency soft and easy to pass, avoiding constipation. Offered referral to colorectal surgery. Pt declines at this time. Marie Alston MD [facility] 36on 01-03-2024 36 Name of caller: David Mitchell Contact phone number: [phone] Relationship to Patient: patient Provider: Dr Alston Practice: Urog[facility] Chief Complaint/Reason for Call: Pt calling to ask what restrictions she is still under from surgery w/ the Dr. Pt was seen by Dr Chery & today & this was gone over but pt wanting to be sure. Please advise Best time of day caller can be reached: Any Patient advised that office/PCP has 24-48 business hours to return their call: Yes [facility] 36 Patient would like t o know if 02-26 appointment could be cancelled since she was seen today and was told she wouldn't have to come back. [facility] Office Visiton 01-03-2024 Follow-up visit [id number] David Mitchell evie 1950 F Date Provider Department Center 01/03/2024 [id number] [facility] THERAPEUTIC RECREATION ASSISTANT None Family History Problem Relation Age of Onset Colon cancer Mother Hypertension Mother Cancer Mother Colon cancer Father Diabetes Father Cancer Father Hypertension Maternal Grandmother Hypertension Paternal Grandfather Family Status - Relation Status Age at Mother Father Maternal Grandmother Paternal Grandfather Level of Service:50238 [place] POSTOP FOLLOW UP VISIT RELATED TO ORIGINAL PX Reason for Visit and Comments: Post-op Visit [559] [facility] Progress Noteon 01-03-2024 Progress Note Postop visit Patient was referred by Dr. Tariq Chew with a solid mass in the pelvis. 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 Also underwent vaginal repair by urogynecology. UTERUS, CERVIX, BILATERAL FALLOPIAN TUBES AND OVARIES, HYSTERECTOMY AND BILATERAL SALPINGO-OOPHORECTOMY: -CERVIX WITH REACTIVE CHANGES -INACTIVE/ATROPHIC ENDOMTERIUM -LEIOMYOMATA - RIGHT OVARY WITH CYSTADENOMA AND CYSTIC FOLLICLES -LEFT OVARY WITH CYSTADENOFIBROMA AND SIMPLE CYSTS -RIGHT AND LEFT FALLOPIAN TUBE WITH NO SIGNIFICANT PATHOLOGIC CHANGES Patient is doing well. Denies any fever chills or sweats. The abdominal incisions are healing nicely. A) status post LAVH BSO for retroperitoneal leiomyoma that was removed in its entirety Vaginal repair by urogynecology P) still has postop appointment with Dr. Alston. I do not need to see her back unless there is an issue related to the hysterectomy. All the patient's questions were answered. [place] [id number] Chew at [phone] via right fax. Confirmation scanned within media. Rescheduled patient with Radha for post op [facility] 36 ----- Message from Leandro Chery MD sent at 12/25/2023 12:50 PM EDT ----- Please fax to Dr. Tariq Chew in [place] and please make sure patient is seeing Otto for postop ----- Message ----- From: [employer] ([employer]) Susie Seals Layla Sent: 12/25/2023 10:30 AM EDT To: Leandro Chery MD [place] [id number] 36 Pt called with path [place] [address] Spoke to patient and she states she is taking colace bid. She started mirilax bid and she had a good BM yesterday. She has been having loose bm's since 3:30 this morning. She is going to hold the mirilax and colace today until settled and if needed will restart tomorrow. Will call with further issues. [facility] 36on 12-24-2023 36 Work up in [place] E R did not show evidence of bowel obstruction. Please call patient for follow up and to discuss bowel regimen. Thanks! [facility] 36 S: Patient spoke wit lemuel [facility] nurse regarding constipation post op B: Onset of symptoms/concern 5 days A: Pt endorses had a laparoscopic vaginal hysterectomy on 12/19/23. Pt endorses having constipation, worsening, abdominal bloating and increase pain. Pt endorses taking colace twice daily since 12/19, MiraLAX as directed three times yesterday and twice today. PT had moderate size hard brown stool this afternoon. Pt endorses increase nausea, constant 5/10 abdominal pain with bloating , difficulty eating due to no appetite due to abdominal bloating. Pt has not used oxycodone prescribed Has used OTC pain medication only. Denies - vomiting, fever, R: Pt advised due to continued abdominal bloating, and constant pain would adive to go to ED at this time for further evaluation. Pt advised to have someone drive her there. Pt verbalizes understanding and will be driving to [facility] ED at this time. No further needs at this time. Patient instructed to call back with new or worsening symptoms. Reason for Disposition Caller has NON-URGENT question and triager unable to answer question [1] Constant abdominal pain AND [2] present > 2 hours Protocols used: Post-Op Symptoms and Zizwwatco-IFNBK-UD, [facility]ks[facility]ue[facility] 12-LEADon 12-20-2023 ECG 12-LEAD IMPRESSION: Sinus rhythm Electronically Signed On 12-20-2023 15:54:47 EDT by Pavel Rodríguez [facility] CBC (HEMOGRAM)on 12-19-2023 Erythrocyte distribution width (RBC) [Ratio] 14.2 % Normal 11.5-15.0 [facility] Comment on above: Performed By: #### L AB294 ####[facility] Worker: JENNIFER SANCHEZ ([phone])[address] Hematocrit (Bld) [Volume fraction] 36.8 % Normal 35.0-47.0 [facility] Comment on above: Performed By: #### L AB294 ####[facility] Worker: JENNIFER SANCHEZ ([phone])[address] Hemoglobin (Bld) [Mass/Vol] 12.1 g/dL Normal 11.7-16.0 [facility] Comment on above: Performed By: #### L AB294 ####[facility] Worker: JENNIFER SANCHEZ ([id number])[facility])[address] [place] [address] MCH (RBC) [Entitic mass] 26.2 pg Normal 26.0-34.0 [facility] Comment on above: Performed By: #### L AB294 ####[facility] Worker: JENNIFER SANCHEZ ([id number])[facility])[address] [place] [address] MCHC 32.9 % Normal 30.5-36.0 [facility] Comment on above: Performed By: #### L AB294 ####[facility] Worker: JENNIFER SANCHEZ ([id number])[address] MCV (RBC) [Entitic vol] 79.7 fL Normal 77.0-99.0 [facility] Comment on above: Performed By: #### L AB294 ####[facility] Worker: JENNIFER SANCHEZ ([id number])[facility])[address] [place] [address] Platelet mean volume (Bld) [Entitic vol] 11.0 fL Normal 9.0-12.7 [facility] Comment on above: Performed By: #### L AB294 ####[facility] Worker: JENNIFER SANCHEZ ([id number])[facility])[address] [place] [address] Platelets (Bld) [#/Vol] 283 10*3/uL Normal 140-440 [facility] Comment on above: Performed By: #### L AB294 ####[facility] Worker: JENNIFER SANCHEZ ([id number])[facility])[address] [place] [address] RBC (Bld) [#/Vol] 4.62 10*6/uL Normal 3.80-5.20 [facility] Comment on above: Performed By: #### L AB294 ####[facility] Worker: JENNIFER SANCHEZ ([id number])[facility] [place] [address] WBC (Bld) [#/Vol] 9.6 10*3/uL Normal 3.6-10.7 [facility] Comment on above: Performed By: #### L AB294 ####[facility] Worker: JENNIFER SANCHEZ ([id number])[facility])[address] [place] [address] CBC panel Auto (Bld)on 12-18 Erythrocyte distribution width (RBC) [Ratio] 14.2 % 11.5 - 15.0 % [facility] Hematocrit (Bld) [Volume fraction] 36.8 % 35.0 - 47.0 % [facility] Hemoglobin (Bld) [Mass/Vol] 12.1 g/dL 11.7 - 16.0 g/dL [facility] Interpretation and review of laboratory results Normal [facility] MCH (RBC) [Entitic mass] 26.2 pg 26.0 - 34.0 pg [facility] MCHC (RBC) [Mass/Vol] 32.9 % 30.5 - 36.0 % [facility] MCV (RBC) [Entitic vol] 79.7 fL 77.0 - 99.0 fL [facility] Platelet mean volume (Bld) [Entitic vol] 11.0 fL 9.0 - 12.7 fL [facility] Platelets (Bld) [#/Vol] 283 10*3/uL 140 - 440 10*3/uL [facility] RBC (Bld) [#/Vol] 4.62 10*6/uL 3.80 - 5.2 0 10*6/uL [facility] WBC (Bld) [#/Vol] 9.6 10*3/uL 3.6 - 10.7 10*3/uL [facility] Nursing Noteon 12-19-2023 Nursing Note Discharge instructio ns given. Patient and family verbalized understanding. Medications received from pharmacy. IV site removed. Taken via wheelchair for discharge [facility] Nursing Note Voiding trial starte d. 300mL instilled of normal saline. Catheter discontinued. Patient ambulated to restroom with 2 nurse SBA. Patient voided 200mL. OB-THERAPEUTIC RECREATION ASSISTANT resident notified Normal [facility] Nursing Note Home going medicatio ns given to patients family by pharmacy. [facility] Op Noteon 12-19-2023 Op Note Date of surgery 12/19/2023 preoperative diagnosis pelvic mass, uterine prolapse postoperative diagnosis uterine leiomyoma, pelvic mass, uterine prolapse Procedure performed was laparoscopic assisted vaginal hysterectomy with BSO Surgeon Vik Anesthesia General Description of findings; there was a subserosal pedunculated myoma posterior aspect of the uterus. No evidence of malignancy was found. Description of operation patient identified brought to the operating room and after ministration general anesthetic underwent abdominal perineal vaginal prepped and draped in lithotomy position using yellowfin's. Compression stockings were used f, manipulator was placed in the uterus White catheter in the bladder. Timeout performed given. Using a knife a small incision made in the umbilicus using a 5 mm Optiview blunt port the abdominal cavity was entered under direct vision insufflated with CO2 and then under direct vision da Elizabeth ports were placed in the left lower quadrants. Trendelenburg was then used to displace about about the pelvis. Right and left ovarian vessels were skeletonized both ureters coagulated and divided. As was the broad ligament and the round ligaments. This allowed the bladder flap to be dissected inferiorly using sharp dissection. Uterine vessels bilaterally were skeletonized coagulated and divided using the Enseal device. A pedunculated leiomyoma on the posterior aspect of the uterus was dissected the rectovaginal space using the Enseal device. It was left attached to the posterior aspect of the uterus. All the laparoscopic instruments were then removed the defects and skin closed with subcuticular 4-0 Monocryl and Dermabond. Attention was then turned down below where the manipulator was removed. 20 cc 1% lidocaine with epinephrine was injected around the abdomen close to 360 degrees, a colpotomy incision was then made using a #10 blade, the posterior cul-de-sac was properly identified and sharply opened using Metzenbaum scissors. The long weighted speculum was then used to retract the rectum posteriorly. The vesicovaginal space was then opened, the vesicovaginal space was dissected and the bladder was held anteriorly using a Shana retractor. The right and left uterosacral ligaments were were clamped cut and tied using 0 Vicryl transfixion sutures and Eliz clamps. The remnants of the cardinal ligaments were then clamped and divided bilaterally using clamps and 0 Vicryl transfixion sutures. This allowed the uterus cervix tubes ovaries and the mass to be removed out of the vagina. Angle sutures were placed at 3 9:00 compartment uterosacral ligaments with the cuff of the vagina. Hemostasis was noted. Blood loss my procedure was minimal. The surgery was then turned over to urogynecology for repair of her vaginal prolapse. [facility] Op Note Date: 12/19/2023 Location: [facility] OR Name: Vandana Mitchell, : 1950, Diagnosis Pre-op Diagnosis * Intra-abdominal and pelvic swelling, mass and lump, unspecified site [R19.00] * Abnormal findings on diagnostic imaging of other specified body structures [R93.89] * Incomplete uterovaginal prolapse [N81.2] * Cystocele, midline [N81.11] * Rectocele [N81.6] Post-op Diagnosis * Intra-abdominal and pelvic swelling, mass and lump, unspecified site [R19.00] * Abnormal findings on diagnostic imaging of other specified body structures [R93.89] * Incomplete uterovaginal prolapse [N81.2] * Cystocele, midline [N81.11] * Rectocele [N81.6] Procedures LAPAROSCOPIC VAGINAL HYSTERECTOMY WITH REMOVAL BILATERAL SALPINGO OOPHORECTOMY 09491 - MN LAPS W/VAG HYSTERECT 250 GM/&RMVL TUBE&/OVARIES UTEROSACRAL LIGAMENT SUSPENSION, ANTERIOR/POSTERIOR REPAIR, POSSIBLE SLING PROCEDURE, CYSTOSCOPY 41488 - MN COLPOPEXY VAGINAL INTRAPERITONEAL APPROACH ANTERIOR AND POSTERIOR COLPORRHAPHY 21546 - MN CMBND ANTERPOST COLPORRAPHY W/CYSTO SLING OPERATION FOR STRESS INCONTINENCE 04306 - MN SLING OPERATION STRESS INCONTINENCE CYSTOSCOPY 79290 - MN CYSTOURETHROSCOPY Surgeons Panel 1: * Leandro Chery - Primary * Carmen Pastrana - Assisting * Isis Salcido - Assisting Panel 2: * Marie Alston - Primary * Lisette Daniels - Assisting Procedure Summary Anesthesia: General ASA: III Estimated Blood Loss: Minimal Drains: Urethral Catheter (Active) Specimens ID Source Type Tests Collected By Collected At Frozen? Priority Lab ID 1 Uterus Tissue TISSUE EXAM Leandro Chery MD 12/19/23 1410 No Description: UTERUS, CERVIX, BILATERAL TUBES AND OVARIES Comment: WEIGHT: 115G Staff: Federal Mediation Commissioner: Anamaria Rebolledo RN Scrub Person: Geovanny Johnson; Sherry Cheung Findings: uterine leiomyoma Complications: None; patient tolerated the procedure well. Specimens Collected: Order Name Source Comment Collection Info Order Time POTASSIUM WITH MG REFLEX For patients on dialysis to draw potassium day of surgery 12/19/2023 10:51 AM PROTHROMBIN TIME If patient on coumadin within 4 days prior. 12/19/2023 10:51 AM CBC (HEMOGRAM) Blood, Venous Collected By: Rosalind Barrera RN 12/19/2023 10:51 AM HCG QUALITATIVE URINE Urine, Clean Catch Discontinue this order if: 1. patient is older than 55 years old 2. has had a prior hysterectomy 3. today's surgery is for treatment of known or suspected ectopic or loss. 4. patient has a known intrauterine but this is a needed surgery. 12/19/2023 10:51 AM TISSUE EXAM Uterus Collected By: Leandro Chery MD 12/19/2023 2:12 PM Wound Class: Class II: Clean-Contaminated Blood Products: None Prophylactic Antibiotics: Procedure appropriate prophylactic antibiotic(s) given within 1 hour of surgical incision (two hours if receiving Vancomycin or flouroquinolone) [facility] 36on 12-18-2023 36 Spoke with pt and answered hibiclens question regarding washing before surgery. Normal [facility] 36 Patient stated they had questions regarding their surgery tomorrow 12/17. Did not mention further details at this time, please contact when able thank you! Normal [facility] Calcium.ionized [Moles/Vol]o n 12-15-2023 Calcium.ionized (Bld) [Mass/Vol] 1.28 mmol/L Normal 1.08-1.30 [facility] Comment on above: Order Comment: Speci men Type: BLOOD SPECIMENOrdering Facility: [facility] Address: [address] [place] [address] Performed By: #### 1 995-0 ####[facility] LABCLIA [id number] [place] [address] [place] Calcium.ionized adjusted to pH 7.4 (Bld) [Moles/Vol] 1.26 mmol/L Normal 1.08-1.30 [facility] Comment on above: Order Comment: Speci men Type: BLOOD SPECIMENOrdering Facility: [facility] Address: [address] [place] [address] Performed By: #### 1 995-0 ####[facility] LABIA [id number] [place] [address] [place] PTH-Intact SerPl-mCncon 12-03 Parathyrin.intact [Mass/Vol] 68 pg/mL High 15-65 [facility] Comment on above: Order Comment: Speci men Type: BLOOD SPECIMENOrdering Facility: [facility] Address: [address] [place] [address] Performed By: #### 2 731-8 ####[facility] LABIA [id number] [place] [id number] [place] 36on 12-14-2023 36 These clearance form s have been returned in media now Normal [facility] BLOOD TYPE AND SCREEN GELon 12-14-2023 ABO GROUPING O Normal [facility] Comment on above: Performed By: #### L [id number] #### [facility] Worker: RANJIT ORTIZ ([phone]) [facility] ([facility]) [address] RH TYPE IN BLOOD Positive Normal [facility] Comment on above: Performed By: #### L AB276 #### [facility] Worker: RANJIT ORTIZ ([phone]) [facility] ([facility]) [address] PREPROCINSon 12-14-2023 PREPROCINS Medication List Accurate as of December 14, 2023 1:10 PM. Always use your most recent med list. acetaminophen 325 MG capsule Commonly known as: Tylenol Medication Adjustments for Surgery: Take morning of surgery albuterol 108 (90 Base) MCG/ACT inhaler Medication Adjustments for Surgery: Take morning of surgery CALCIUM-ERGOCALCIFEROL PO Medication Adjustments for Surgery: Hold morning of surgery Centrum Ultra Womens tablet Medication Adjustments for Surgery: Hold morning of surgery clindamycin 1 % gel Medication Adjustments for Surgery: Hold morning of surgery denosumab 60 MG/ML solution prefilled syringe Commonly known as: Prolia Medication Adjustments for Surgery: Other (Comment) Notes to patient: Due in march dilTIAZem CD 180 MG 24 hr capsule Commonly known as: Cardizem CD Medication Adjustments for Surgery: Take morning of surgery Fluticasone-Salmeterol 250-50 MCG/ACT aerosol powder Medication Adjustments for Surgery: Take morning of surgery melatonin 3 MG tablet Medication Adjustments for Surgery: Take night before surgery Additional Instructions: You may take your prescription pain medication. You may take Tylenol for pain. NO Motrin, ibuprofen or Advil for 24 hours prior to surgery or longer if instructed by your surgeon. NO Aleve or Naprosyn for 5 days prior to surgery or longer if instructed by your surgeon. Shower with an antibacterial soap such as Dial or Safeguard or shower kit provided to you before coming to the hospital. No makeup, lotion, powder, deodorant or body spays. No hair products. Remove all jewelry and leave it at home. Wear loose comfortable clothing to go home in. You may brush your teeth morning of surgery. Do not wear contacts day of surgery. No marijuana (THC), smoking or alcohol for 24 hours prior to surgery. Please arrange for a responsible adult to drive you home after your surgery and that there is a responsible adult with you for 24 hours post discharge. If you have specific questions, please call your surgeon. You will receive a call the day before your surgery to verify your arrival time and date. You will be asked to arrive at least two hours prior to your scheduled surgery time. Please bring your [facility] folder and medication list with you day of surgery. We encourage you to write down any questions you may have for the surgeon, anesthesiologist, or other members of the surgical team and bring it with you the day of surgery. Please bring photo ID and insurance information. Normal [facility] Progress Noteon 12-14-2023 Progress Note ADVANCED CARE PLANLAUREN Mitchell : 1950 Primary Care Physician: Markus Rascon MD The patient and/or family/surrogate voluntarily agreed to participate in ACP services. Patient?s cognitive capacity: FULL Code Status: [x] [FULL CODE - Continue all advanced life support: CPR,intubation,invasive procedures] [_] [DNR-CCA - DO NOT do CPR, intubation] [_] [DNR-CREW BOAT OPERATOR - Comfort care only] [_] DNR form [was/was not] signed Summary of discussion: The patient Has health care POA/ surrogate , but no further information was provided [Condition that instigated the ACP on this DOS, relevant PMH, functional status, goals of care, and whom this was discussed with including names and relationship to the patient, and any relevant advance care documentation discussion] I answered all the patient/family questions that I could within the range and scope of the current medical situation. We discussed the medical conditions, risks, benefits, outcomes, and goals of care at this time for the patient's medical issues at hand in the face of the patient's chronic issues and current presentation. Total time spent: 5 minutes were spent discussing the patient's resuscitation status, advance care planning, and end of life care, with patient and/or family/surrogate. Javed Shay PA-C Acute care [facility] 12/14/2023, 1:07 PM [facility] 36on 12-12-2023 36 sent [facility] 36 PAT: 12.14.2023 at [place] 3 pm SX: 12.19.2023 at 12:30 arrival at 10:30 am Post op 01.03.2024 at 10:45 am Folder and instructions given. [facility] 36 Patient asking if sh e needs cardio and pulm clearance we have her scheduled for 12/18 Dr celio Campbell [facility] Mendy 12-12-2023 MARIBELLN Telephone (FAMPWS) MITCHELLVANDANA ([id number]) 1950 F NFR Date Time Provider Department 12/12/23 MARKUS RASCON During your visit today, we recorded the following information about you: Shanita Mitchell 12/12/2023 5:08 PM Signed Pt called asking for the results of her Echo on 07/10/23, most recent EGK and results from stress test 10/16/23. Can be sent to Ebony Benoit at Dr. Chery office at [facility]. Shwetha Irby RN 12/13/2023 8:49 AM Signed EKG, echo results and stress test results printed and faxed as requested to Dr. Chery office at # [phone]. Called and spoke with pt and she was already aware of results. States she just needed them faxed to Dr. Chery office as she is having surgery there on Monday. Pt had a Mon f/u appt on Monday the with Dr. Rascon but states has too much to do prior to surgery. Rescheduled as requested to 02/08 so she has time to recover from her surgery. Pt had her labs done on 12/03 and has reviewed them already in [facility]. Please call pt only if any changes need to be made otherwise no call needed. Markus Rascon MD 12/13/2023 12:18 PM Signed Latest Ref Rng 12/04/2023 WBC 3.70 - 11.00 k/uL 9.03 RBC 3.90 - 5.20 m/uL 4.84 Hemoglobin 11.5 - 15.5 g/dL 12.8 Hematocrit 36.0 - 46.0 % 40.5 MCV 80.0 - 100.0 fL 83.7 MCH 26.0 - 34.0 pg 26.4 MCHC 30.5 - 36.0 g/dL 31.6 RDW-CV 11.5 - 15.0 % 14.4 Platelet Count 150 - 400 k/uL 295 MPV 9.0 - 12.7 fL 11.6 Neut% % 72.6 Abs Neut (ANC) 1.45 - 7.50 k/uL 6.55 Lymph% % 16.3 Abs Lymph 1.00 - 4.00 k/uL 1.47 [place]% % 8.4 Abs [place] <0.87 k/uL 0.76 Eosin% % 1.2 Abs Eosin <0.46 k/uL 0.11 Baso% % 1.1 Abs Baso <0.11 k/uL 0.10 Immature Gran % % 0.4 IMMATURE GRANS (ABS) <0.10 k/uL 0.04 NRBC /100 WBC 0.0 Absolute nRBC <0.01 k/uL <0.01 DTYPE Auto Protein, Total 6.3 - 8.0 g/dL 7.7 Albumin 3.9 - 4.9 g/dL 4.5 Calcium 8.5 - 10.2 mg/dL 10.3 (H) Bilirubin, Total 0.2 - 1.3 mg/dL 0.3 Alkaline Phosphatase 34 - 123 U/L 63 AST 13 - 35 U/L 28 ALT 7 - 38 U/L 17 Glucose 74 - 99 mg/dL 87 BUN 7 - 21 mg/dL 17 Creatinine 0.58 - 0.96 mg/dL 0.65 Sodium 136 - 144 mmol/L 139 Potassium 3.7 - 5.1 mmol/L 4.5 Chloride 98 - 107 mmol/L 101 CO2 22 - 30 mmol/L 25 Anion Gap 8 - 15 mmol/L 13 eGFR >=60 mL/min/1.73m? 93 Cholesterol, Total <200 mg/dL 219 (H) Triglyceride <150 mg/dL 124 HDL Cholesterol >39 mg/dL 69 Non HDL Cholesterol <130 mg/dL 150 (H) Fasting Time hrs 12 VLDL Cholesterol <30 mg/dL 25 TC:HDL Ratio <5.10 3.17 LDL Cholesterol <100 mg/dL 125 (H) LDL:HDL Ratio <2.54 1.81 Hemoglobin A1C 4.3 - 5.6 % 5.6 Estimated Average Glucose mg/dL 114 Vitamin D 25 Hydroxy 31.0 - 80.0 ng/mL 62.3 Legend: (H) Markus Reis MD 12/13/2023 12:18 PM Signed Cholesterol is up. Watch cholesterol in the diet. Calcium is slightly up again. Recheck labs in one week Julia Cook LPN 12/13/2023 1:30 PM Signed Patient notified. She is having PAT testing tomorrow so will look at the calcium level on that lab as well. It will be longer than 1 week before she can get to the lab to recheck her additional lab work. Allergies As of Date: 12/12/2023 Noted Allergy Reaction AMOXICILLIN 04/22/2005 2 - Rash ASA (SALICYLATES) 04/22/2005 7 - Swelling Comments: lip swelling DICLOFENAC 02/21/2006 12 - Shortness of Breath IODINE 04/22/2005 12 - Shortness of Breath MONISTAT 1 (TIOCONAZOLE) 04/22/2005 5 - Intolerance Comments: Burning Date Reviewed: 11/20/2023 Reviewed by: Shanita Jackson PA-C - Fully Assessed Reason for Visit: Patient Question [5137] Patient Update [1234] Primary Visit Diagnosis:Hypercalcemia [E83.52] Order(s):CALCIUM, IONIZED [SQICA] Order #: [id number] FUTURE PTH INTACT [SQPTHI] Order #: [id number] FUTURE Prescriptions as of 12/13/2023 - dilTIAZem CD (CARDIZEM CD) 180 mg 24 hr capsule Take 1 capsule by mouth once daily. - albuterol HFA (VENTOLIN HFA) 90 mcg/actuation inhaler Inhale 2 Puffs as instructed every 4 hours as needed for wheezing/shortness of breath. - fluticasone-salmeterol (WIXELA INHUB) 250-50 mcg/dose inhaler Inhale 1 Puff as instructed two times a day. - calcium citrate (CITRACAL ORAL) Take 2 capsules by mouth two times a day. - clindamycin (CLEOCIN T) 1 % gel Apply to affected area once daily. - denosumab (PROLIA) 60 mg/mL Inject subcutaneously once every 6 months. - melatonin 3 mg tablet Take 3 mg by mouth. qhs - acetaminophen 325 mg cap Take by mouth as needed. - MULTIVITAMIN ORAL Take 1 tablet by mouth once daily. 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 Normal [facility] 36on 12-08-2023 [address] sc an. Surgery not until Jan 16. Would not like to wait so long Normal [facility] 36 Patient returning missed call, please contact when able, thank you [facility] [address] Normal [facility] Office Visiton 12-05-2023 Follow-up visit [id number] David Mitchell i 1950 F Date Provider Department Center 12/05/2023 [id number]-RIQZQRMARIE [facility] UR None Family History Problem Relation Age of Onset Colon cancer Mother Hypertension Mother Cancer Mother Colon cancer Father Diabetes Father Cancer Father Hypertension Maternal Grandmother Hypertension Paternal Grandfather Family Status - Relation Status Age at Mother Father Maternal Grandmother Paternal Grandfather Level of Service:[id number] [place] OFFICE/OUTPT VISIT,PROCEDURE ONLY Reason for Visit and Comments: Results [95] - UDS Normal [facility] Progress Noteon 12-05-2023 Progress Note Vandana Mitchell present s for her preoperative visit today. She is scheduled for the following on 01/17/24: Pelvic exam under anesthesia, vaginal vault suspension, cystocele repair, midurethral sling, cystoscopy, possible rectocele repair with perineorrhaphy Combined procedure with Dr. Chery for hysterectomy POP-Q 11/28/23: Aa = +3 Ba = +3 C = -4 GH = 3 PB = 2.5 TVL = 8 Ap = -1 Bp = -1 D = -6 UDS reviewed: Filling and Storage: Bladder sensation is normal without bladder pain, without urgency and with normal detrusor function. Bladder capacity is normal. There is incompetent urethral closure and evidence of urodynamic stress incontinence. Voiding: Overall voiding function is abnormal. Urine flow is continuous with a prolonged, fluctuating flow curve. Detrusor function during voiding is reduced with valsalva augmentation and a normal postvoid residual. Electromyography: Provocative maneuvers produced appropriate changes in waveforms. The EMG shows increased EMG activity with increased intraabdominal pressure. There was a decrease in the EMG activity during voiding consistent with normal function of the pelvic floor. Normal sensation and capacity. +ALVIN. No DO. Valsalva augmentation to void with normal PVR. We reviewed the alternatives to surgery before discussing the risks associated with surgery. We discussed the risks and benefits of each of the surgical procedures in detail. These risks include, but are not limited to, bleeding, transfusion, infection, injury to surrounding organs, development of postoperative stress or urge urinary incontinence, development of postoperative voiding dysfunction with need for prolonged bladder catheterization or self-catheterization, vaginally placed mesh complications, failure of the prolapse and/or continence surgery over time, and need for additional surgery. We also reviewed her urodynamic testing which showed the presence of stress urinary incontinence. I reviewed the risks and benefits of concurrent sling placement, including complications related to mesh placement as well as postoperative voiding dysfunction and urinary retention. She expressed an understanding of this and does wish to have an anti-incontinence procedure at the time of her prolapse surgery. All questions answered. Perioperative considerations: - Will accept blood products - TO sling - No DD, +SA Marie Alston MD Normal [facility] Progress Note Unable to obtain a B P re-check due to patient leaving while I was in a room with another patient. Normal [facility] 25[facility]3 [facility] 25-hydroxyvitamin D3 [Mass/Vol] 62.3 ng/mL Normal 31.0-80.0 [facility] Comment on above: Order Comment: Speci men Type: BLOOD SPECIMENOrdering Facility: [facility] Address: [address] [place] [address] Performed By: #### 1 989-3 ####[facility] LABCLIA [id number] [place] [address] [place] CBC W Auto Differential pane l (Bld)on 12-04-2023 Basophils (Bld) [#/Vol] 0.10 10*3/uL Normal <0.11 [facility] Comment on above: Order Comment: Speci men Type: BLOOD SPECIMENOrdering Facility: [facility] Address: [address] [place] [address] Performed By: #### 5 7021-8 ####[facility] LABCLIA [id number] [place] [address] [place] Basophils/100 WBC (Bld) 1.1 % Normal [facility] Comment on above: Order Comment: Speci men Type: BLOOD SPECIMENOrdering Facility: [facility] Address: [address] [place] [address] Performed By: #### 5 7021-8 ####[facility] LABCLIA [id number] [place] [address] [place] Differential cell count method Nom (Bld) Auto Normal [facility] Comment on above: Order Comment: Speci men Type: BLOOD SPECIMENOrdering Facility: [facility] Address: [address] [place] [address] Performed By: #### 5 7021-8 ####[facility] LABCLIA [id number] [place] [address] [place] Eosinophils (Bld) [#/Vol] 0.11 10*3/uL Normal <0.46 [facility] Comment on above: Order Comment: Speci men Type: BLOOD SPECIMENOrdering Facility: [facility] Address: [address] [place] [address] Performed By: #### 5 7021-8 ####[facility] LABCLIA [id number] [place] [address] [place] Eosinophils/100 WBC (Bld) 1.2 % Normal [facility] Comment on above: Order Comment: Speci men Type: BLOOD SPECIMENOrdering Facility: [facility] Address: [address] [place] [address] Performed By: #### 5 7021-8 ####[facility] LABCLIA [id number] [place] [address] [place] Erythrocyte distribution width (RBC) [Ratio] 14.4 % Normal 11.5-15.0 [facility] Comment on above: Order Comment: Speci men Type: BLOOD SPECIMENOrdering Facility: [facility] Address: [address] [place] [address] Performed By: #### 5 7021-8 ####[facility] LABCLIA [id number] [place] [address] [place] Hematocrit (Bld) [Volume fraction] 40.5 % Normal 36.0-46.0 [facility] Comment on above: Order Comment: Speci men Type: BLOOD SPECIMENOrdering Facility: [facility] Address: [address] [place] [address] Performed By: #### 5 7021-8 ####[facility] LABIA [id number] [place] [address] [place] Hemoglobin (Bld) [Mass/Vol] 12.8 g/dL Normal 11.5-15.5 [facility] Comment on above: Order Comment: Speci men Type: BLOOD SPECIMENOrdering Facility: [facility] Address: [address] [place] [address] Performed By: #### 5 7021-8 ####[facility] LABIA [id number] [place] [address] [place] Immature granulocytes (Bld) [#/Vol] 0.04 10*3/uL Normal <0.10 [facility] Comment on above: Order Comment: Speci men Type: BLOOD SPECIMENOrdering Facility: [facility] Address: [address] [place] [address] Performed By: #### 5 7021-8 ####[facility] LABCLIA [id number] [place] [address] [place] Immature granulocytes/100 WBC (Bld) 0.4 % Normal [facility] Comment on above: Order Comment: Speci men Type: BLOOD SPECIMENOrdering Facility: [facility] Address: [address] [place] [address] Performed By: #### 5 7021-8 ####[facility] LABIA [id number] [place] [address] [place] Lymphocytes (Bld) [#/Vol] 1.47 10*3/uL Normal 1.00-4.00 [facility] Comment on above: Order Comment: Speci men Type: BLOOD SPECIMENOrdering Facility: [facility] Address: [address] [place] [address] Performed By: #### 5 7021-8 ####[facility] LABCLIA [id number] [place] [address] [place] Lymphocytes/100 WBC (Bld) 16.3 % Normal [facility] Comment on above: Order Comment: Speci men Type: BLOOD SPECIMENOrdering Facility: [facility] Address: [address] [place] [address] Performed By: #### 5 7021-8 ####[facility] LABCLIA [id number] [place] [address] [place] MCH (RBC) [Entitic mass] 26.4 pg Normal 26.0-34.0 [facility] Comment on above: Order Comment: Speci men Type: BLOOD SPECIMENOrdering Facility: [facility] Address: [address] [place] [address] Performed By: #### 5 7021-8 ####[facility] LABCLIA [id number] [place] [address] [place] MCHC (RBC) [Mass/Vol] 31.6 g/dL Normal 30.5-36.0 [facility] Comment on above: Order Comment: Speci men Type: BLOOD SPECIMENOrdering Facility: [facility] Address: [address] [place] [address] Performed By: #### 5 7021-8 ####[facility] LABCLIA [id number] [place] [address] [place] MCV (RBC) [Entitic vol] 83.7 fL Normal 80.0-100.0 [facility] Comment on above: Order Comment: Speci men Type: BLOOD SPECIMENOrdering Facility: [facility] Address: [address] [place] [address] Performed By: #### 5 7021-8 ####[facility] LABCLIA [id number] [place] [address] [place] Monocytes (Bld) [#/Vol] 0.76 10*3/uL Normal <0.87 [facility] Comment on above: Order Comment: Speci men Type: BLOOD SPECIMENOrdering Facility: [facility] Address: [address] [place] [address] Performed By: #### 5 7021-8 ####[facility] LABCLIA [id number] [place] [address] [place] Monocytes/100 WBC (Bld) 8.4 % Normal [facility] Comment on above: Order Comment: Speci men Type: BLOOD SPECIMENOrdering Facility: [facility] Address: [address] [place] [address] Performed By: #### 5 7021-8 ####[facility] LABCLIA [id number] [place] [address] [place] Neutrophils (Bld) [#/Vol] 6.55 10*3/uL Normal 1.45-7.50 [facility] Comment on above: Order Comment: Speci men Type: BLOOD SPECIMENOrdering Facility: [facility] Address: [address] [place] [address] Performed By: #### 5 7021-8 ####[facility] LABCLIA [id number] [place] [address] [place] Neutrophils/100 WBC (Bld) 72.6 % Normal [facility] Comment on above: Order Comment: Speci men Type: BLOOD SPECIMENOrdering Facility: [facility] Address: [address] [place] [address] Performed By: #### 5 7021-8 ####[facility] LABCLIA [id number] [place] [address] [place] Nucleated RBC (Bld) [#/Vol] 10*3/uL Normal <0.01 [facility] Comment on above: Order Comment: Speci men Type: BLOOD SPECIMENOrdering Facility: [facility] Address: [address] [place] [address] Performed By: #### 5 7021-8 ####[facility] LABCLIA [id number] [place] [address] [place] Nucleated RBC/100 WBC (Bld) [Ratio] 0.0 /100 WBC Normal [facility] Comment on above: Order Comment: Speci men Type: BLOOD SPECIMENOrdering Facility: [facility] Address: [address] [place] [address] Performed By: #### 5 7021-8 ####[facility] LABCLIA [id number] [place] [address] [place] Platelet mean volume (Bld) [Entitic vol] 11.6 fL Normal 9.0-12.7 [facility] Comment on above: Order Comment: Speci men Type: BLOOD SPECIMENOrdering Facility: [facility] Address: [address] [place] [address] Performed By: #### 5 7021-8 ####[facility] LABCLIA [id number] [place] [address] [place] Platelets (Bld) [#/Vol] 295 10*3/uL Normal 150-400 [facility] Comment on above: Order Comment: Speci men Type: BLOOD SPECIMENOrdering Facility: [facility] Address: [address] [place] [address] Performed By: #### 5 7021-8 ####[facility] LABCLIA [id number] [place] [address] [place] RBC (Bld) [#/Vol] 4.84 10*6/uL Normal 3.90-5.20 [facility] Comment on above: Order Comment: Speci men Type: BLOOD SPECIMENOrdering Facility: [facility] Address: [address] [place] [address] Performed By: #### 5 7021-8 ####[facility] LABCLIA [id number] [place] [address] [place] WBC (Bld) [#/Vol] 9.03 10*3/uL Normal 3.70-11.00 [facility] Comment on above: Order Comment: Speci men Type: BLOOD SPECIMENOrdering Facility: [facility] Address: [address] [place] [address] Performed By: #### 5 7021-8 ####[facility] LABCLIA [id number] [place] [address] [place] Comprehensive metabolic 2000 panelon 12-04-2023 Albumin [Mass/Vol] 4.5 g/dL Normal 3.9-4.9 [facility] Comment on above: Order Comment: Speci men Type: BLOOD SPECIMENOrdering Facility: [facility] Address: [address] [place] [address] Performed By: #### 2 4323-8, 87186-7 ####[facility] LABCLIA [id number] [place] [address] [place] ALP [Catalytic activity/Vol] 63 U/L Normal 34-123 [facility] Comment on above: Order Comment: Speci men Type: BLOOD SPECIMENOrdering Facility: [facility] Address: [address] [place] [address] Performed By: #### 2 4323-8, 75083-7 ####[facility] LABCLIA [id number] [place] [address] [place] ALT [Catalytic activity/Vol] 17 U/L Normal 7-38 [facility] Comment on above: Order Comment: Speci men Type: BLOOD SPECIMENOrdering Facility: [facility] Address: [address] [place] [address] Performed By: #### 2 4323-8, 41635-4 ####[facility] LABCLIA [id number] [place] [id number] [place] Anion gap [Moles/Vol] 13 mmol/L Normal 8-15 [facility] Comment on above: Order Comment: Speci men Type: BLOOD SPECIMENOrdering Facility: [facility] Address: [address] [place] [address] Performed By: #### 2 4323-8, 24224-5 ####[facility] LABCLIA [id number] [place] [address] [place] AST [Catalytic activity/Vol] 28 U/L Normal 13-35 [facility] Comment on above: Order Comment: Speci men Type: BLOOD SPECIMENOrdering Facility: [facility] Address: [address] [place] [address] Performed By: #### 2 4323-8, 89888-1 ####[facility] LABCLIA [id number] [place] [address] [place] Bilirubin [Mass/Vol] 0.3 mg/dL Normal 0.2-1.3 [facility] Comment on above: Order Comment: Speci men Type: BLOOD SPECIMENOrdering Facility: [facility] Address: [address] [place] [address] Performed By: #### 2 4323-8, 62503-5 ####[facility] LABCLIA [id number] [place] [address] [place] Calcium [Mass/Vol] 10.3 mg/dL High 8.5-10.2 [facility] Comment on above: Order Comment: Speci men Type: BLOOD SPECIMENOrdering Facility: [facility] Address: [address] [place] [address] Performed By: #### 2 4323-8, 14430-8 ####[facility] LABCLIA [id number] [place] [address] [place] Chloride [Moles/Vol] 101 mmol/L Normal 98-107 [facility] Comment on above: Order Comment: Speci men Type: BLOOD SPECIMENOrdering Facility: [facility] Address: [address] [place] [address] Performed By: #### 2 4323-8, 01801-0 ####[facility] LABIA [id number] [place] [address] [place] CO2 [Moles/Vol] 25 mmol/L Normal 22-30 [facility] Comment on above: Order Comment: Speci men Type: BLOOD SPECIMENOrdering Facility: [facility] Address: [address] [place] [address] Performed By: #### 2 4323-8, 96109-7 ####[facility] LABIA [id number] [address] [place] Creatinine [Mass/Vol] 0.65 mg/dL Normal 0.58-0.96 [facility] Comment on above: Order Comment: Speci men Type: BLOOD SPECIMENOrdering Facility: [facility] Address: [address] [place] [address] Performed By: #### 2 4323-8, 55735-1 ####[facility] LABIA [id number] [place] [address] [place] Creatinine and Glomerular filtration rate.predicted panel (S/P/Bld) 93 mL/min/1.73m??? Normal >=60 [facility] Comment on above: Order Comment: Speci men Type: BLOOD SPECIMENOrdering Facility: [facility] Address: [address] [place] [address] Result Comment: Betsy mated Glomerular Filtration Rate (eGFR) is calculated using the 2020 CKD-EPI creatinine equation. This equation utilizes serum creatinine, sex, and age as parameters. The creatinine assay has traceable calibration to isotope dilution-mass spectrometry. Refer to KDIGO guidelines for clinical interpretation. In patients with unstable renal function, e.g. those with acute kidney injury, the eGFR may not accurately reflect actual GFR. Performed By: #### 2 4323-8, 40047-4 ####[facility] LABCLIA [id number] [address] [address] [place] Glucose [Mass/Vol] 87 mg/dL Normal 74-99 [facility] Comment on above: Order Comment: Speci men Type: BLOOD SPECIMENOrdering Facility: [facility] Address: [address] [place] [address] Result Comment: The [place] Diabetes Association (ADA) provides guidance for cutoff values for fasting glucose and random glucose. The ADA defines fasting as no caloric intake for at least 8 hours. Fasting plasma glucose results between 100 to 125 mg/dL indicate increased risk for diabetes (prediabetes). Fasting plasma glucose results greater than or equal to 126 mg/dL meet the criteria for diagnosis of diabetes. In the absence of unequivocal hyperglycemia, results should be confirmed by repeat testing. In a patient with classic symptoms of hyperglycemia or hyperglycemic crisis, random plasma glucose results greater than or equal to 200 mg/dL meet the criteria for diagnosis of diabetes. Reference: Standards of Medical Care in Diabetes 2016, [place] Diabetes Association. Diabetes Care. 2016.39(Suppl 1). Performed By: #### 2 4323-8, 31090-4 ####[facility] LABCLIA [id number] [address] [address] [place] Potassium [Moles/Vol] 4.5 mmol/L Normal 3.7-5.1 [facility] Comment on above: Order Comment: Speci men Type: BLOOD SPECIMENOrdering Facility: [facility] Address: [address] [place] [address] Performed By: #### 2 4323-8, 57278-3 ####[facility] LABIA [id number] [address] [address] [place] Protein [Mass/Vol] 7.7 g/dL Normal 6.3-8.0 [facility] Comment on above: Order Comment: Speci men Type: BLOOD SPECIMENOrdering Facility: [facility] Address: [address] [place] [address] Performed By: #### 2 4323-8, 83203-4 ####[facility] LABCLIA [id number] [place] [address] [place] Sodium [Moles/Vol] 139 mmol/L Normal 136-144 [facility] Comment on above: Order Comment: Speci men Type: BLOOD SPECIMENOrdering Facility: [facility] Address: [address] [place] [address] Performed By: #### 2 4323-8, 43347-8 ####[facility] LABIA [id number] [place] [address] [place] Urea nitrogen [Mass/Vol] 17 mg/dL Normal 7-21 [facility] Comment on above: Order Comment: Speci men Type: BLOOD SPECIMENOrdering Facility: [facility] Address: [address] [place] [address] Performed By: #### 2 4323-8, 02989-0 ####[facility] LABIA [id number] [place] [address] [place] HbA1c (Bld)on 12-04-2023 Average glucose Estimated from glycated hemoglobin (Bld) [Mass/Vol] 114 mg/dL Normal [facility] Comment on above: Order Comment: Speci men Type: BLOOD SPECIMENOrdering Facility: [facility] Address: [address] [place] [address] Result Comment: eAG: (Estimated average glucose) is a calculated value from HgbA1c and is event representative of the average blood glucose level in the last 2-3 month period. Performed By: #### 5 5454-3 ####[facility] LABIA [id number] [place] [address] [place] HbA1c (Bld) [Mass fraction] 5.6 % Normal 4.3-5.6 [facility] Comment on above: Order Comment: Speci men Type: BLOOD SPECIMENOrdering Facility: [facility] Address: [address] [place] [address] Result Comment: [place] Diabetes Association guidelines indicate that patients with HgbA1c in the range 5.7-6.4% are at increased risk for development of diabetes, and intervention by lifestyle modification may be beneficial. HgbA1c greater or equal to 6.5% is considered diagnostic of diabetes. Performed By: #### 5 5454-3 ####[facility] LABCLIA [id number] [place] [address] [place] Lipid 1996 panelon 4 Cholesterol [Mass/Vol] 219 mg/dL High <200 [facility] Comment on above: Order Comment: Negin parson Type: BLOOD SPECIMENOrdering Facility: [facility] Address: [address] [place] [address] Result Comment: <200 mg/dL, Desirable 200-239 mg/dL, Borderline high >239 mg/dL, High Performed By: #### 2 4323-8, 25158-1 ####[facility] LABCLIA [id number] [place] [address] [place] Cholesterol in HDL [Mass/Vol] 69 mg/dL Normal >39 [facility] Comment on above: Order Comment: Negin parson Type: BLOOD SPECIMENOrdering Facility: [facility] Address: [address] [place] [address] Result Comment: 40-5 9 mg/dL, Acceptable >59 mg/dL, High: Negative risk factor for coronary heart disease <40 mg/dL, Low: Positive risk factor for coronary heart disease Performed By: #### 2 4323-8, 22456-3 ####[facility] LABCLIA [id number] [address] [place] Cholesterol in LDL [Mass/Vol] 125 mg/dL High <100 [facility] Comment on above: Order Comment: Sharynevie parson Type: BLOOD SPECIMENOrdering Facility: [facility] Address: [address] [place] [address] Result Comment: <100 mg/dL, Optimal 100-129 mg/dL, Near optimal/above optimal 130-159 mg/dL, Borderline high 160-189 mg/dL, High >189 mg/dL, Very high Secondary prevention optimal LDL Cholesterol levels are recommended to be < 70 mg/dL Performed By: #### 2 4323-8, 38837-9 ####[facility] LABCLIA [id number] [place] [address] [place] Cholesterol in LDL/Cholesterol in HDL [Mass ratio] 1.81 {ratio} Normal <2.54 [facility] Comment on above: Order Comment: Speci men Type: BLOOD SPECIMENOrdering Facility: [facility] Address: [address] [place] [address] Result Comment: Refe lennyce: 1. National Cholesterol Education Program ATP III Guideline At-A-Glance Quick Desk Reference: National Heart, Lung, and Blood Milner. National Institutes of Health. 2001: NIH Publication No. 01-3305. 2. An International Atherosclerosis Society position paper: global recommendations for the management of dyslipidemia: executive summary, Atherosclerosis. 2014: 232(2):410-413. Performed By: #### 2 4323-8, 82971-0 ####[facility] LABCLIA [id number] [place] [address] [place] Cholesterol in VLDL [Mass/Vol] 25 mg/dL Normal <30 [facility] Comment on above: Order Comment: Sharyni men Type: BLOOD SPECIMENOrdering Facility: [facility] Address: [address] [place] [address] Performed By: #### 2 4323-8, 62122-4 ####[facility] LABCLIA [id number] [place] [address] [place] Cholesterol non HDL [Mass/Vol] 150 mg/dL High <130 [facility] Comment on above: Order Comment: Sharyni men Type: BLOOD SPECIMENOrdering Facility: [facility] Address: [address] [place] [address] Result Comment: <130 mg/dL, Optimal 130-159 mg/dL, Near optimal/above optimal 160-189 mg/dL, Borderline high 190-219 mg/dL, High >219 mg/dL, Very high Secondary prevention optimal non HDL Cholesterol levels are recommended to be <100 mg/dL Performed By: #### 2 4323-8, 97760-2 ####[facility] LABCLIA [id number] [place] [address] [place] Cholesterol.total/C holesterol in HDL [Mass ratio] 3.17 {ratio} Normal <5.10 [facility] Comment on above: Order Comment: Speci men Type: BLOOD SPECIMENOrdering Facility: [facility] Address: [facility] [place] [address] Performed By: #### 2 4323-8, 00983-7 ####[facility] LABCLIA [id number] [address] STATES OF [facility] FASTING TIME 12 hrs Normal [facility] Comment on above: Order Comment: Speci men Type: BLOOD SPECIMENOrdering Facility: [facility] Address: [address] [place] [address] Performed By: #### 2 4323-8, ####[facility] LABCLIA [id number] [place] [address] [place] Triglyceride [Mass/Vol] 124 mg/dL Normal <150 [facility] Comment on above: Order Comment: Speci men Type: BLOOD SPECIMENOrdering Facility: [facility] Address: [address] [place] [address] Result Comment: <150 mg/dL, Normal 150-199 mg/dL, Borderline high 200-499 mg/dL, High >499 mg/dL, Very high Performed By: #### 2 4323-8, 61408-8 ####[facility] LABCLIA [id number] [place] [id number] [place] 36on 11-30-2023 36 PAT: 01.05.2024 at 1 1 am SX: 01.17.2024 at 7:30 am arrival at 5:30 am Post op 02.27.2024 at 10 am Folder and instructions given. [facility] 36 Unable to get throug h. Message sent via my chart Called to provide surgery info. I need to talk to the patient when/if she calls in Thanks Normal [facility] Bacteria identified Cx Nom ( U)on 11-30-2023 [facility] - Microbiology an d Antimicrobial susceptibilityon 11-30-2023 Bacteria identified Cx Nom (U) SEE NOTE [facility] Comment on above: CULTURE, URINE, ROUTINE Micro Number: [id number] Test Status: Final Specimen Source: Urine Specimen Quality: Adequate Result: No Growth Urinalysis complete panel (U )on 11-29-2023 Appearance (U) CLOUDY Abnormal CLEAR [facility] Bacteria LM.HPF (Urine sed) [#/Area] NONE SEEN NONE SEEN /HPF [facility] Bilirubin Ql (U) Negative NEGATIVE [facility] alth Color (U) YELLOW YELLOW [facility] Epithelial cells.squamous LM.HPF (Urine sed) [#/Area] NONE SEEN < OR = 5 /HPF [facility] Glucose Ql (U) Negative NEGATIVE [facility] Hemoglobin Ql (U) TRACE Abnormal NEGATIVE [facility]alth Hyaline casts (Urine sed) [#/Area] NONE SEEN NONE SEEN /LPF [facility] Interpretation and review of laboratory results Abnormal [facility] Ketones Ql (U) Negative NEGATIVE [facility] Leukocyte esterase Test strip Ql (U) Negative NEGATIVE [facility] Nitrite Ql (U) Negative NEGATIVE [facility] pH (U) 8.0 [pH] 5.0 - 8.0 [facility] Protein Ql (U) Negative NEGATIVE [facility] RBC LM.HPF (Urine sed) [#/Area] NONE SEEN < OR = 2 /HPF [facility] Service comment (Unsp spec) [Interp] [facility] Comment on above: This urine was jessica zed for the presence of WBC, RBC, bacteria, casts, and other formed elements. Only those elements seen were reported. Specific gravity (U) [Rel density] 1.009 1.001 - 1.035 [facility] WBC LM.HPF (Urine sed) [#/Area] NONE SEEN < OR = 5 /HPF [facility] Office Visiton 11-28-2023 Follow-up visit [id number] David Mitchell i 1950 F Date Provider Department Center 11/28/2023 [id number] UR None Family History Problem Relation Age of Onset Colon cancer Mother Hypertension Mother Colon cancer Father Diabetes Father Hypertension Maternal Grandmother Family Status - Relation Status Age at Mother Father Maternal Grandmother Level of Service:[address]74 [place] OFFICE/OUTPATIENT NEW MODERATE MDM 45 MINUTES (25) Reason for Visit and Comments: New Patient [542] - Combo surgery for prolapse with dr chery. Urgency frequency, leaking of gas occasional., not emptying bladder. ALVIN, and urge incont. Normal [facility] Progress Noteon 11-28-2023 Progress Note Traffic Signal Supervisor Maintenance was evin owusu to the patient for exam. Patient accepted, medical staff manager in room during exam,KIRSTEN SANCHEZ MA Normal [facility] Progress Note Female Pelvic Medici ne & Reconstructive Surgery Consult CHIEF COMPLAINT: Vandana Mitchell is a 73 y.o. female who presents for consultation requested by Leandro Chery MD for an opinion regarding pelvic organ prolapse. HISTORY OF PRESENT ILLNESS: Pt reports h/o POP with poor success with pessary use in the past. She is planning hysterectomy/BSO, possible staging with Dr. Chery due to recent finding of complex pelvic mass and desires concomitant surgical management of her POP. 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 No 0 Usually experience heaviness or dullness in the pelvic area? No 0 Usually have a bulge or something falling out that you can see or feel in your vaginal area? Yes 4 Ever have to push on the vagina or around the rectum to have or complete a bowel movement? Yes 2 Usually experience a feeling of incomplete bladder emptying? Yes 4 Ever have to push up on a bulge in the vaginal area with your fingers to start or complete urination? Yes 4 Feel you need to strain too hard to have a bowel movement? Yes 1 Feel you have not completely emptied your bowels at the end of a bowel movement? Yes 1 Usually lose stool beyond your control if your stool is well formed? No 0 Usually lose stool beyond your control if your stool is loose? No 0 Usually lose gas from the rectum beyond your control? Yes 3 Usually have pain when you pass your stool? No 0 Experience a strong sense of urgency and have to graham to the bathroom to have a bowel movement? Yes 2 Does part of your bowel ever pass through the rectum and bulge outside during or after a bowel movement? No 0 Usually experience frequent urination? Yes 4 Usually experience urine leakage associated with a feeling of urgency, that is, a strong sensation of needing to go to the bathroom? Yes 3 Usually experience urine leakage related to coughing, sneezing or laughing? No 0 Usually experience small amounts of urine leakage (that is, drops)? Yes 4 Usually experience difficulty emptying your bladder? Yes 4 Usually experience pain or discomfort in the lower abdomen or genital region? No 0 Past Surgical History: Procedure Laterality Date SCOLIOSIS SURGERY (HISTORICAL) TONSILLECTOMY WISDOM TOOTH EXTRACTION WRIST SURGERY x2 Past Medical History: Diagnosis Date Arthritis Bilateral carotid artery stenosis 08/09/2018 Diastolic dysfunction Diverticulosis Dyspnea on exertion 05/31/2019 Essential hypertension 11/18/2005 Family history of colon cancer 07/06/2011 02/22/10- repeat every 5yrs. HOCM (hypertrophic obstructive cardiomyopathy) (CMS/HCC) (HCC) Hypercalcemia 08/09/2018 Incomplete uterovaginal prolapse 04/05/2016 Insomnia Melanocytic nevi of trunk Monoclonal gammopathy 03/30/[address] Oneill annually Multinodular thyroid 10/27/2011 Non-rheumatic mitral regurgitation 03/18/2020 Last ECHO 2009 Normal pelvic exam 01/24/2017 Obstructive cardiomyopathy (CMS/HCC) (HCC) 01/28/2019 Osteoporosis 10/10/2011 Seen by and Rosalinda in 2011 Postmenopausal atrophic vaginitis 01/09/2015 Precordial pain 01/28/2019 Psychophysiological insomnia 10/26/2011 Pulmonary embolism (HCC) Renal cyst Restrictive 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 07/31/2015 Last Assessment & Plan: Major limitation is with SOB when she is doing any activity. Going places causes her to have issues. Specially if there is inclines or steps. Scoliosis (and kyphoscoliosis), idiopathic 01/09/2011 Surgery 1964 - [facility] Last Assessment & Plan: She has issues with walking etc, with the kyphoscoliosis. Small airways disease SVT (supraventricular tachycardia) (HCC) 01/14/2020 Per 7d holtor monitor: HR 62-167, avg 82; NSR with 1AVB, 7 runs SVT, 9.3% isolated SVE, rare couplets Family History Problem Relation Name Age of Onset Colon cancer Mother Hypertension Mother Colon cancer Father Diabetes Father Hypertension Maternal Grandmother Social History Tobacco Use Smoking status: Never Smokeless tobacco: Never Substance Use Topics Alcohol use: Yes Comment: social Drug use: Never Current Outpatient Medications Medication Sig Dispense Refill Fluticasone-Salmeterol 250-50 MCG/ACT aerosol powder Inhale 1 puff in the morning and 1 puff in the evening. acetaminophen (Tylenol) 325 MG capsule Take by mouth if needed. albuterol 108 (90 Base) MCG/ACT inhaler Inhale 2 puffs every 4 hours as needed. CALCIUM-ERGOCALCIFEROL PO Take by mouth. clindamycin 1 % gel Apply topically daily. denosumab (Prolia) 60 MG/ML solution prefilled syringe Inject 60 mg under the skin Once. dilTIAZem CD (Cardizem CD) 180 MG 24 hr cap (more content not included)... Normal [facility] Urinalysis macro (dipstick) panel (U)on 11-28-2023 [facility], [facility], [facility]A Trace-Intact [facility] Glucose, UA Negative [facility] Interpretation and review of laboratory results Abnormal [facility] Ketones, POC (mg/dL) Negative [facility] Leukocytes, UA Negative [facility] th Nitrite, UA Negative [facility] pH, UA 7.5 [facility] Protein, UA Negative [facility] Spec Grav, UA 1.020 [facility] Urobilinogen, UA 0.2 [facility] He alth [facility] Radiology Study observation (narrative) [facility] 36on 11-27-2023 36 Patient has not hear d from uro c d stripper Normal [facility] 36on 11-24-2023 36 Spoke to patient and reviewed prep for ct including benadryl 50mg I hour prior to CT. She verbalizes understanding. Normal [facility] 36 Patient is scheduled for CT scan on 12/06/23 in [place]. Has allergy to contrast. Please send in rx to pharmacy. She uses [facility] in [place]. Thank you! Normal [facility] 36 Patient requesting callback with status update on CT being scheduled, please contact when able, thank you [facility] Office Visiton 11-22-2023 Follow-up visit [id number] David Mitchell evie 1950 F Date Provider Department Center 11/22/2023 [id number] [facility] THERAPEUTIC RECREATION ASSISTANT None Family History Problem Relation Age of Onset Colon cancer Mother Hypertension Mother Colon cancer Father Diabetes Father Hypertension Maternal Grandmother Family Status - Relation Status Age at Mother Father Maternal Grandmother Level of Service:49999 [place] OFFICE/OUTPATIENT NEW MODERATE MDM 45 MINUTES Reason for Visit and Comments: Female Problem [263] [facility] CNOVon 11-20-2023 CNOV Office Visit (PULMWS ) VANDANA MITCHELL ([id number]) 1950 F NFR Date Time Provider Department 11/20/23 10:30 AM SHANITA JACKSON PULMWS During your visit today, we recorded the following information about you: Pulse Respiration Blood pressure Weight 68/minute 15/minute 140/88 50.8 kg Shanita Jackson PA-C 11/20/2023 11:00 AM Signed Patient: Vandana Mitchell PCP: Markus Rascon MD CC: follow up HPI: Vandana Lees Mitchell 73 year old female non-smoker with PMH significant for HTN, MGUS, HOCM, restrictive 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, and asthma. Diagnosed clinically with asthma, unable to perform CARL due to her baseline severe restriction and patient unable to perform Jeannette. Last office visit 03/30/[address] Campbell recommended decreasing Symbicort dosing to 80/4.5. However, patient was reluctant to do so. Current maintenance therapy Wixela 250/50 mcg and as needed Albuterol. Today, patient reports variable cough, not every day . Typically non-productive. No wheezing. Exertional dyspnea with walking fast, climbing stairs, and carrying groceries. She is concerned that her inhaled steroid is causing her bone density to be decreased despite being on the Prolia. No issues with ADLs. No fevers, chills, or night sweats. No unintended weight loss. No lower extremity edema. No GERD/heartburn. No recent hospitalizations or ED visits or upper respiratory infections. Rarely uses Albuterol. ASTHMA CONTROL TEST Date: 11/20/2023 In the last 4 weeks, how much of the time did your asthma keep you from getting as much done at work or home that you wanted to do? A little of the time (4) In the last 4 weeks, how often have you had shortness of breath? 3 to 6 times per week (3) In the last 4 weeks, how often did your asthma symptoms (wheezing, coughing, shortness of breath, chest tightness or pain) wake you up at night or earlier than usual? Not at all (5) In the last 4 weeks, how often have you used your rescue inhaler or nebulizer medication (such as Albuterol, Proventil, Ventolin, Maxair, Xoponex, or Primatene Mist)? Not at all (5) In the last 4 weeks, how would you rate your asthma control? Somewhat controlled (3) Total: more than 20 PAST MEDICAL HISTORY Diagnosis Date Arthritis Diastolic dysfunction Grade I Disorder of bone and cartilage, unspecified Diverticulosis 2009 colonoscopy History of transfusion HOCM (hypertrophic obstructive cardiomyopathy) ([facility]) Insomnia, unspecified Melanocytic Nevocellular Nevi pigmented moles of trunk: back mainly 08/02/2011 Mitral valve disorders Monoclonal gammopathy 04/2017 Osteoporosis Other diseases of lung, not elsewhere classified restrictive lung disease Other pulmonary embolism and infarction 07/25/2012 ? had pe with normal d dimer. saw pulmonary. not convinced she did have one. Renal cyst Small airways disease Possible asthma. Patient unable to perform definitive test SVT (supraventricular tachycardia) ([facility]) 01/14/2020 Unspecified essential hypertension Allergies: Amoxicillin Rash Asa [Salicylates] Swelling Comment:lip swelling Diclofenac Shortness of Breath Iodine Shortness of Breath Monistat 1 [Tiocona* Intolerance Comment:Burning dilTIAZem CD (CARDIZEM CD) 180 mg 24 hr capsule Take 1 capsule by mouth once daily. albuterol HFA (VENTOLIN HFA) 90 mcg/actuation inhaler Inhale 2 Puffs as instructed every 4 hours as needed for wheezing/shortness of breath. fluticasone-salmeterol (WIXELA INHUB) 250-50 mcg/dose inhaler Inhale 1 Puff as instructed two times a day. mometasone-formoterol (DULERA) 100-5 mcg/actuation inhaler Inhale 2 Puffs as instructed two times a day. budesonide-formoterol (SYMBICORT) 160-4.5 mcg/actuation inhaler Inhale 2 Puffs as instructed twice daily. calcium citrate (CITRACAL ORAL) Take 2 capsules by mouth two times a day. clindamycin (CLEOCIN T) 1 % gel Apply to affected area once daily. denosumab (PROLIA) 60 mg/mL Inject subcutaneously once every 6 months. melatonin 3 mg tablet Take 3 mg by mouth. qhs acetaminophen 325 mg cap Take by mouth as needed. MULTIVITAMIN ORAL Take 1 tablet by mouth once daily. Social History Tobacco Use Smoking status: Never Smokeless tobacco: Never Tobacco comments: Father smoked in childhood home. Spouse does not smoke. Vaping Use Vaping Use: Never used Substance Use Topics Alcohol use: Yes Comment: Occasionally. Drug use: No Family History Problem Relation Age of Onset Colon Cancer Mother 56 Hypertension Mother Colon Cancer Father Diabetes Father Hypertension Maternal Grandmother PAST SURGICAL HISTORY Procedure Laterality Date BACK SURGERY HX BIOPSY BREAST OPEN INCISIONAL left Bx of breast, incisional COLONOSCOPY FLX DX W/COLLJ SPEC WHEN PFRMD 10/27/2004 Colonoscopy COLONOSCOPY FLX DX W/COLLJ SPEC WHEN (more content not included)... [facility] Nurse [facility] (CAWSTR) VANDANA MITCHELL ([id number]) 1950 F NFR Date Time Provider Department 10/16/23 8:15 AM [facility] During your visit today, we recorded the following information about you: Luis M Hameed RN 10/16/2023 10:32 AM Signed RADIOLOGY SERVICE PROGRESS NOTE SERVICE DATE: 10/16/2023 SERVICE TIME: 0815 PATIENT IDENTITY VERIFICATION COMPLETED USING TWO (2) METHODS: Patient confirmed name and Date of verbally. ALLERGIES AND MEDICATIONS REVIEWED BY: Luis M Hameed RN PROCEDURE TYPE: NM STRESS: 0.4 mg of Lexiscan was administered IV at 0822 over 10 Seconds by Luis M Hameed RN Reversal agent used:None LOT [id number] EXP 06/05/25 IV SITE: IV palced by nuclear tecnologist POST EXAM PIV STATUS: Discontinued by Workers Compensation Examiner PATIENT DISCHARGED TO: Nuclear Medicine Department for post stress imaging A Diagnostic radioactive procedure has taken place, with no further precautions necessary other than routine body substance precautions. More information regarding radiation safety can be found using this link: [email or web address] SIGNATURE: Luis M Hameed RN PATIENT NAME:Vandana Mitchell DATE: 10/16/23 TIME: 10:31 AM Referring Provider: RYLEE DUARTE [[id number]] Allergies As of Date: 10/16/2023 Noted Allergy Reaction AMOXICILLIN 04/22/2005 2 - Rash ASA (SALICYLATES) 04/22/2005 7 - Swelling Comments: lip swelling DICLOFENAC 02/21/2006 12 - Shortness of Breath IODINE 04/22/2005 12 - Shortness of Breath MONISTAT 1 (TIOCONAZOLE) 04/22/2005 5 - Intolerance Comments: Burning Date Reviewed: 09/04/2023 Reviewed by: Zarina Sparks MA - Fully Assessed Visit Diagnosis:Chest pain, unspecified type [R07.9] Order(s):[] regadenoson 0.4 mg injection (LEXISCAN)Disp: Rfl: Prescriptions as of 10/16/2023 - albuterol HFA (VENTOLIN HFA) 90 mcg/actuation inhaler Inhale 2 Puffs as instructed every 4 hours as needed for wheezing/shortness of breath. - fluticasone-salmeterol (WIXELA INHUB) 250-50 mcg/dose inhaler Inhale 1 Puff as instructed two times a day. - dilTIAZem CD (CARDIZEM CD) 180 mg 24 hr capsule Take 1 capsule by mouth once daily. - mometasone-formoterol (DULERA) 100-5 mcg/actuation inhaler Inhale 2 Puffs as instructed two times a day. - budesonide-formoterol (SYMBICORT) 160-4.5 mcg/actuation inhaler Inhale 2 Puffs as instructed twice daily. - calcium citrate (CITRACAL ORAL) Take 2 capsules by mouth two times a day. - clindamycin (CLEOCIN T) 1 % gel Apply to affected area once daily. - denosumab (PROLIA) 60 mg/mL Inject subcutaneously once every 6 months. - melatonin 3 mg tablet Take 3 mg by mouth. qhs - acetaminophen 325 mg cap Take by mouth as needed. - MULTIVITAMIN ORAL Take 1 tablet by mouth once daily. Problem List As Of Date 10/16/2023 Noted Resolved GENERAL OSTEOARTHROSIS [M15.9] 11/18/2005 07/03/2015 Essential hypertension [I10] 11/18/2005 Non-rheumatic mitral regurgitation [I34.0] Unspecified asthma [J45.909] 04/11/2011 Disorder of bone and cartilage, unspecified [M8* 12/04/2019 Cervicalgia [M54.2] 08/28/2007 08/09/2018 Idiopathic scoliosis and kyphoscoliosis [M41.20]01/09/2011 Family history of colon cancer [Z80.0] 07/06/2011 Bursitis of right shoulder [M75.51] 10/10/2011 08/09/2018 Osteoporosis [M81.0] 10/10/2011 Psychophysiological insomnia [F51.04] 10/26/2011 Multinodular thyroid [E04.2] 10/27/2011 Other pulmonary embolism and infarction (HCC) [*07/25/2012 07/21/2016 Complete uterovaginal prolapse [N81.3] 01/09/2015 03/30/2016 Pelvic muscle wasting [N81.84] 01/09/2015 08/09/2018 Postmenopausal atrophic vaginitis [N95.2] 01/09/2015 Muscle weakness [M62.81] 02/16/2015 07/21/2016 Restrictive 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 *07/31/2015 Incomplete uterovaginal prolapse [N81.2] 04/05/2016 Monoclonal gammopathy [D47.2] 03/30/2017 Hypercalcemia [E83.52] 08/09/2018 Mitral valve prolapse [I34.1] 08/09/2018 09/16/2022 Bilateral carotid artery stenosis [I65.23] 08/09/2018 Obstructive cardiomyopathy (HCC) [I42.8] 01/28/2019 Precordial pain [R07.2] 01/28/2019 09/16/2022 Dyspnea on exertion [R06.09] 05/31/2019 09/16/2022 SVT (supraventricular tachycardia) (HCC) [I47.1*01/14/2020 Screening for colon cancer [Z12.11] 09/24/2020 09/24/2020 Murmur [R01.1] 10/05/2020 09/16/2021 HOCM (hypertrophic obstructive cardiomyopathy) *10/05/2020 Age-related osteoporosis without current pathol*09/10/2021 06/13/2023 Closed fracture of distal radius and ulna [S52.*03/18/2022 Cyst of kidney, acquired [N28.1] 02/18/2022 Greater trochanteric bursitis [M70.60] 03/18/2022 09/16/2022 Normal pelvic exam [Z01.419] 01/24/2017 09/16/2022 Mild intermittent asthma without complication [*03/22/2022 Dizziness (more content not included)... Normal [facility] 10-16-2023 CNPN Telephone (FAMPWS) VANDANA MITCHELL ([id number]) 1950 F NFR Date Time Provider Department 10/16/23 RYLEE DUARTE During your visit today, we recorded the following information about you: Rylee Duarte APRN.LADONNA 10/16/2023 12:18 PM Signed Please let patient know that her stress test showed no areas that were lacking blood flow.... No ischemia. Her ejection fraction was high meaning that her heart is working extra hard against her blood pressure that is too high. We need to keep blood pressure in good control so that her heart can relax between beats. She has a cardiology follow-up but not until June. Zarina Sparks MA 10/16/2023 12:50 PM Signed Patient was made aware of the results. Patient verbalizes understanding. She will monitor her blood pressures and if she notices any changes, will make sooner appt with PCP. She denies any current chest pain, advised that if having chest pains again to call back in. Pt agreeable. Zarina Sparks Ma Allergies As of Date: 10/16/2023 Noted Allergy Reaction AMOXICILLIN 04/22/2005 2 - Rash ASA (SALICYLATES) 04/22/2005 7 - Swelling Comments: lip swelling DICLOFENAC 02/21/2006 12 - Shortness of Breath IODINE 04/22/2005 12 - Shortness of Breath MONISTAT 1 (TIOCONAZOLE) 04/22/2005 5 - Intolerance Comments: Burning Date Reviewed: 09/04/2023 Reviewed by: Zarina Sparks MA - Fully Assessed Prescriptions as of 10/16/2023 - albuterol HFA (VENTOLIN HFA) 90 mcg/actuation inhaler Inhale 2 Puffs as instructed every 4 hours as needed for wheezing/shortness of breath. - fluticasone-salmeterol (WIXELA INHUB) 250-50 mcg/dose inhaler Inhale 1 Puff as instructed two times a day. - dilTIAZem CD (CARDIZEM CD) 180 mg 24 hr capsule Take 1 capsule by mouth once daily. - mometasone-formoterol (DULERA) 100-5 mcg/actuation inhaler Inhale 2 Puffs as instructed two times a day. - budesonide-formoterol (SYMBICORT) 160-4.5 mcg/actuation inhaler Inhale 2 Puffs as instructed twice daily. - calcium citrate (CITRACAL ORAL) Take 2 capsules by mouth two times a day. - clindamycin (CLEOCIN T) 1 % gel Apply to affected area once daily. - denosumab (PROLIA) 60 mg/mL Inject subcutaneously once every 6 months. - melatonin 3 mg tablet Take 3 mg by mouth. qhs - acetaminophen 325 mg cap Take by mouth as needed. - MULTIVITAMIN ORAL Take 1 tablet by mouth once daily. Problem List As Of Date 10/16/2023 Noted Resolved GENERAL OSTEOARTHROSIS [M15.9] 11/18/2005 07/03/2015 Essential hypertension [I10] 11/18/2005 Non-rheumatic mitral regurgitation [I34.0] Unspecified asthma [J45.909] 04/11/2011 Disorder of bone and cartilage, unspecified [M8* 12/04/2019 Cervicalgia [M54.2] 08/28/2007 08/09/2018 Idiopathic scoliosis and kyphoscoliosis [M41.20]01/09/2011 Family history of colon cancer [Z80.0] 07/06/2011 Bursitis of right shoulder [M75.51] 10/10/2011 08/09/2018 Osteoporosis [M81.0] 10/10/2011 Psychophysiological insomnia [F51.04] 10/26/2011 Multinodular thyroid [E04.2] 10/27/2011 Other pulmonary embolism and infarction (HCC) [*07/25/2012 07/21/2016 Complete uterovaginal prolapse [N81.3] 01/09/2015 03/30/2016 Pelvic muscle wasting [N81.84] 01/09/2015 08/09/2018 Postmenopausal atrophic vaginitis [N95.2] 01/09/2015 Muscle weakness [M62.81] 02/16/2015 07/21/2016 Restrictive 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 *07/31/2015 Incomplete uterovaginal prolapse [N81.2] 04/05/2016 Monoclonal gammopathy [D47.2] 03/30/2017 Hypercalcemia [E83.52] 08/09/2018 Mitral valve prolapse [I34.1] 08/09/2018 09/16/2022 Bilateral carotid artery stenosis [I65.23] 08/09/2018 Obstructive cardiomyopathy (HCC) [I42.8] 01/28/2019 Precordial pain [R07.2] 01/28/2019 09/16/2022 Dyspnea on exertion [R06.09] 05/31/2019 09/16/2022 SVT (supraventricular tachycardia) (HCC) [I47.1*01/14/2020 Screening for colon cancer [Z12.11] 09/24/2020 09/24/2020 Murmur [R01.1] 10/05/2020 09/16/2021 HOCM (hypertrophic obstructive cardiomyopathy) *10/05/2020 Age-related osteoporosis without current pathol*09/10/2021 06/13/2023 Closed fracture of distal radius and ulna [S52.*03/18/2022 Cyst of kidney, acquired [N28.1] 02/18/2022 Greater trochanteric bursitis [M70.60] 03/18/2022 09/16/2022 Normal pelvic exam [Z01.419] 01/24/2017 09/16/2022 Mild intermittent asthma without complication [*03/22/2022 Dizziness [R42] 11/17/2022 Epistaxis [R04.0] 11/17/2022 06/13/2023 Encounter Status:Closed by ZARINA SPARKS on 10/16/23 Normal [facility] CARDIAC PERF STRESS/PHARM on 10-16-2023 NM CARDIAC PERF STRESS/PHARM * * *Final Report* * * DATE OF EXAM: Oct 16 2023 10:05[place] [id number] [facility] CARDIAC PERF STRESS/PHARM / PROCEDURE REASON: Chest pain, unspecified type * * * * Physician Interpretation * * * * Stress [employer] Director Report: [facility] Date of service: 10/16/2023 7:29:20 AM Supervising physician: Clary Nolasco MD PATIENT: Name: MRS. VANDANA MITCHELL Age: 73 years Gender: F The supervising physician was in the department and immediately available. * * * Final * * * ---- PATIENT: Name: MRS. VANDANA MITCHELL Age: 73 years Gender: F CONCLUSIONS: 1. SPECT Perfusion Study: Normal. 2. There is no scintigraphic evidence for inducible ischemia. 3. No evidence of scarred myocardium. 4. Left ventricle is small. The left ventricle systolic function is hyperdynamic. 5. Right ventricle is normal in size. The right ventricle systolic function is normal. 6. This is a low risk scan. Gated Stress FBP Gated Rest FBP LVEF % 81 79 Prior Study Comparison Prior nuclear cardiology exam was performed on 02/11/19 which was normal. Nuclear Med Report:1-Day Gated SPECT Myocardial Perfusion with Regadenoson Stress: Myocardial perfusion imaging was performed at rest 30 minutes following the IV injection of the radiotracer. The patient received 0.4 mg of regadenoson, via rapid IV push, immediately followed by radiotracer IV. Gated post stress tomographic imaging was performed 30 to 60 minutes later. See administered radiotracer and doses below. [facility] Date of service: 10/16/2023 7:29:20 AM Ordering Physician: RYLEE DUARTE. Requesting Physician: RYLEE DUARTE Indication: Assessment for suspected CAD and CP - ECG uniterpretable OR unable to exercise Interpreting physician: Rodriguez Alfonso MD Height: 157.48 cm BSA: 1.50 m? Weight: 51.71 kg BMI: 20.9 kg/m? Imaging Protocol Limitation Reason G.I. uptake. Exam Type: Rest Stress Radiopharm: Tc-99m Tetrofosmin Tc-99m Tetrofosmin Dosage(mCi): 13.6 34.7 Stress Agent: Regadenoson 0.4mg Supply provided from [facility] Resting Blood Press: 142/82 mmHg Image Quality The overall study imaging quality was deemed to be good. The following technical issues were noted: G.I. uptake. FINDINGS: Left Ventricle Wall Motion: Stress IR:3D - All segments are normal. Rest IR:3D - Gated Stress FBP - Reversibility - Gated Rest FBP - Stress IR:3D Stress IR:3D Gated Stress FBP Gated Rest FBP LVEF: 81 % 79 % ED Volume: 43 ml 56 ml ES Volume: 8 ml 12 ml TID: 0.77 Perfusion Findings Stress IR:3D - Summed Score=0 All segments demonstrate normal perfusion. Rest IR:3D - Summed Score=0 All segments demonstrate normal perfusion. Stress IR:3D Rest IR:3D Summed Score=0 Summed Score=0 LEFT VENTRICLE The left ventricle is small. Left ventricular systolic function is hyperdynamic. Right Ventricle The right ventricle is normal in size. Right ventricle systolic function is normal. Stress Test Findings: There is no scintigraphic evidence for inducible ischemia. There is no evidence of scarring. The left ventricular cavity size is unchanged with stress. * * * Final * * * ---- Stress ECG Report: [facility] Date of service: 10/16/2023 7:29:20 AM Ordering physician: RYLEE DUARTE tooling specialist: Luis M Hameed RN Interpreting physician: Clary Nolasco MD Patient name: MRS. VANDANA MITCHELL Age: 73 years Gender: F Height: 157.48 cm BSA: 1.50 m? Weight: 51.71 kg BMI: 20.9 kg/m? Indication: Chest pressure / Chest tightness and Encounter for screening for cardiovascular disorders Stress ECG Conclusion: Conclusion: Normal Prior exam comparison: No significant changes Stress ECG Summary: The patient's resting heart rate was 95 bpm and blood pressure was 142/82 mmHg. The test was terminated due to end of protocol. No symptoms provoked during stress. The maximum heart rate was 118 bpm, which is 81% of the predicted heart rate for age. Peak blood pressure was 152/86 mmHg. The double product achieved was [id number]. Medications: Last Used DILTIAZEM 2 Days Resting ECG: Normal Sinus Rhythm Symptoms at rest: No symptoms Pharamcologic Protocol: Regadenoson Stress Exercise Table: +-----+---+---+---+ Stage HR SYS MAGGY +-----+---+---+---+ 1 121 +-----+---+---+---+ 2 123 150 70 +-----+---+---+---+ 3 121 146 80 +-----+---+---+---+ 4 118 152 86 +-----+---+---+---+ +-----+---+---+---+ HR SYS MAGGY +-----+---+---+---+ Final 118 15 (more content not included)... Normal [facility] Heart Perfusion W stress and W radionuclide Silas 10-16-2023 * * *Final Report* * * DATE OF EXAM: Oct 16 2023 10:[address] [place] [address] CARDIAC PERF STRESS/PHARM / PROCEDURE REASON: Chest pain, unspecified type * * * * Physician Interpretation * * * * Stress Funeral Home Director Report: [facility] Date of service: 10/16/2023 7:29:20 AM Supervising physician: Clary Nolasco MD PATIENT: Name: MRS. VANDANA MITCHELL Age: 73 years Gender: F The supervising physician was in the department and immediately available. * * * Final * * * ---- PATIENT: Name: MRS. VANDANA MITCHELL Age: 73 years Gender: F CONCLUSIONS: 1. SPECT Perfusion Study: Normal. 2. There is no scintigraphic evidence for inducible ischemia. 3. No evidence of scarred myocardium. 4. Left ventricle is small. The left ventricle systolic function is hyperdynamic. 5. Right ventricle is normal in size. The right ventricle systolic function is normal. 6. This is a low risk scan. Gated Stress FBP Gated Rest FBP LVEF % 81 79 Prior Study Comparison Prior nuclear cardiology exam was performed on 02/11/19 which was normal. Nuclear Med Report:1-Day Gated SPECT Myocardial Perfusion with Regadenoson Stress: Myocardial perfusion imaging was performed at rest 30 minutes following the IV injection of the radiotracer. The patient received 0.4 mg of regadenoson, via rapid IV push, immediately followed by radiotracer IV. Gated post stress tomographic imaging was performed 30 to 60 minutes later. See administered radiotracer and doses below. [facility] Date of service: 10/16/2023 7:29:20 AM Ordering Physician: RYLEE DUARTE. Requesting Physician: RYLEE DUARTE Indication: Assessment for suspected CAD and CP - ECG uniterpretable OR unable to exercise Interpreting physician: Rodriguez Alfonso MD Height: 157.48 cm BSA: 1.50 m Weight: 51.71 kg BMI: 20.9 kg/m Imaging Protocol Limitation Reason G.I. uptake. Exam Type: Rest Stress Radiopharm: Tc-99m Tetrofosmin Tc-99m Tetrofosmin Dosage(mCi): 13.6 34.7 Stress Agent: Regadenoson 0.4mg Supply provided from [facility] Resting Blood Press: 142/82 mmHg Image Quality The overall study imaging quality was deemed to be good. The following technical issues were noted: G.I. uptake. FINDINGS: Left Ventricle Wall Motion: Stress IR:3D - All segments are normal. Rest IR:3D - Gated Stress FBP - Reversibility - Gated Rest FBP - Stress IR:3D Stress IR:3D Gated Stress FBP Gated Rest FBP LVEF: 81 % 79 % ED Volume: 43 ml 56 ml ES Volume: 8 ml 12 ml TID: 0.77 Perfusion Findings Stress IR:3D - Summed Score=0 All segments demonstrate normal perfusion. Rest IR:3D - Summed Score=0 All segments demonstrate normal perfusion. Stress IR:3D Rest IR:3D Summed Score=0 Summed Score=0 LEFT VENTRICLE The left ventricle is small. Left ventricular systolic function is hyperdynamic. Right Ventricle The right ventricle is normal in size. Right ventricle systolic function is normal. Stress Test Findings: There is no scintigraphic evidence for inducible ischemia. There is no evidence of scarring. The left ventricular cavity size is unchanged with stress. * * * Final * * * ---- Stress ECG Report: [facility] Date of service: 10/16/2023 7:29:20 AM Ordering physician: RYLEE DUARTE tooling specialist: Luis M Hameed RN Interpreting physician: Clary Nolasco MD Patient name: MRS. VANDANA MITCHELL Age: 73 years Gender: F Height: 157.48 cm BSA: 1.50 m Weight: 51.71 kg BMI: 20.9 kg/m Indication: Chest pressure / Chest tightness and Encounter for screening for cardiovascular disorders Stress ECG Conclusion: Conclusion: Normal Prior exam comparison: No significant changes Stress ECG Summary: The patient's resting heart rate was 95 bpm and blood pressure was 142/82 mmHg. The test was terminated due to end of protocol. No symptoms provoked during stress. The maximum heart rate was 118 bpm, which is 81% of the predicted heart rate for age. Peak blood pressure was 152/86 mmHg. The double product achieved was [address]. Medications: Last Used DILTIAZEM 2 Da (more content not included)... DIVISION OF RADIOLOGY Provider, [facility] - 10/16/2023 * * *Final Report* * * DATE OF EXAM: Oct 16 2023 10:05AM ANIKA 0006 - [place] CARDIAC PERF STRESS/PHARM / PROCEDURE REASON: Chest pain, unspecified type * * * * Physician Interpretation * * * * Stress Funeral Home Director Report: [facility] Date of service: 10/16/2023 7:29:20 AM Supervising physician: Clary Nolasco MD PATIENT: Name: MRS. VANDANA MITCHELL Age: 73 years Gender: F The supervising physician was in the department and immediately available. * * * Final * * * ---- PATIENT: Name: MRS. VANDANA MITCHELL Age: 73 years Gender: F CONCLUSIONS: 1. SPECT Perfusion Study: Normal. 2. There is no scintigraphic evidence for inducible ischemia. 3. No evidence of scarred myocardium. 4. Left ventricle is small. The left ventricle systolic function is hyperdynamic. 5. Right ventricle is normal in size. The right ventricle systolic function is normal. 6. This is a low risk scan. Gated Stress FBP Gated Rest FBP LVEF % 81 79 Prior Study Comparison Prior nuclear cardiology exam was performed on 02/11/19 which was normal. Nuclear Med Report:1-Day Gated SPECT Myocardial Perfusion with Regadenoson Stress: Myocardial perfusion imaging was performed at rest 30 minutes following the IV injection of the radiotracer. The patient received 0.4 mg of regadenoson, via rapid IV push, immediately followed by radiotracer IV. Gated post stress tomographic imaging was performed 30 to 60 minutes later. See administered radiotracer and doses below. [facility] Date of service: 10/16/2023 7:29:20 AM Ordering Physician: RYLEE DUARTE. Requesting Physician: RYLEE DUARTE Indication: Assessment for suspected CAD and CP - ECG uniterpretable OR unable to exercise Interpreting physician: Rodriguez Alfonso MD Height: 157.48 cm BSA: 1.50 m Weight: 51.71 kg BMI: 20.9 kg/m Imaging Protocol Limitation Reason G.I. uptake. Exam Type: Rest Stress Radiopharm: Tc-99m Tetrofosmin Tc-99m Tetrofosmin Dosage(mCi): 13.6 34.7 Stress Agent: Regadenoson 0.4mg Supply provided from [facility] Resting Blood Press: 142/82 mmHg Image Quality The overall study imaging quality was deemed to be good. The following technical issues were noted: G.I. uptake. FINDINGS: Left Ventricle Wall Motion: Stress IR:3D - All segments are normal. Rest IR:3D - Gated Stress FBP - Reversibility - Gated Rest FBP - Stress IR:3D Stress IR:3D Gated Stress FBP Gated Rest FBP LVEF: 81 % 79 % ED Volume: 43 ml 56 ml ES Volume: 8 ml 12 ml TID: 0.77 Perfusion Findings Stress IR:3D - Summed Score=0 All segments demonstrate normal perfusion. Rest IR:3D - Summed Score=0 All segments demonstrate normal perfusion. Stress IR:3D Rest IR:3D Summed Score=0 Summed Score=0 LEFT VENTRICLE The left ventricle is small. Left ventricular systolic function is hyperdynamic. Right Ventricle The right ventricle is normal in size. Right ventricle systolic function is normal. Stress Test Findings: There is no scintigraphic evidence for inducible ischemia. There is no evidence of scarring. The left ventricular cavity size is unchanged with stress. * * * Final * * * ---- Stress ECG Report: [facility] Date of service: 10/16/2023 7:29:20 AM Ordering physician: RYLEE DUARTE tooling specialist: Luis M Hameed RN Interpreting physician: Clary Nolasco MD Patient name: MRS. VANDANA MITCHELL Age: 73 years Gender: F Height: 157.48 cm BSA: 1.50 m Weight: 51.71 kg BMI: 20.9 kg/m Indication: Chest pressure / Chest tightness and Encounter for screening for cardiovascular disorders Stress ECG Conclusion: Conclusion: Normal Prior exam comparison: No significant changes Stress ECG Summary: The patient's resting heart rate was 95 bpm and blood pressure was 142/82 mmHg. The test was terminated due to end of protocol. No symptoms provoked during stress. The maximum heart rate was 118 bpm, which is 81% of the predicted heart rate for age. Peak blood pressure was 152/86 mmHg. The double product achieved was 51005. Medications: Last Used DILTIAZEM 2 Days Resting ECG: Normal Sinus Rhythm Symptoms at rest: No symptoms Pharamcologic Protocol: Regadenoson Stress Exercise Table: +-----+---+---+---+ Stage HR SYS MAGGY +-----+---+---+---+ 1 121 +-----+---+---+---+ 2 123 150 70 +-----+--- (more content not included)... [facility] Radiology Study observation (narrative) [facility] Heart Perfusion W stress and W radionuclide IVOrdered By: [facility] Provider on 10-16-2023 [facility] CNPNon 09-07-2023 CNPN Telephone (FAMPWS) VANDANA MITCHELL ([id number]) 1950 F NFR Date Time Provider Department 09/07/23 RYLEE DUARTE [facility] During your visit today, we recorded the following information about you: Rylee Duarte, [employer] ENGINEER.TOBACCO DIPPER 09/07/2023 8:40 AM Signed Please let patient know that her hand stitcher sent me back a message stating that he agreed with the stress test. Her ionized calcium was a tiny bit over normal. That is likely because of her calcium replacement. Her parathyroid hormone, vitamin D level, and thyroid functions were normal. No other changes are needed. Vianney Steen MA 09/07/2023 10:28 AM Signed Patient informed and verbalized understanding. Vianney Steen MA Allergies As of Date: 09/07/2023 Noted Allergy Reaction AMOXICILLIN 04/22/2005 2 - Rash ASA (SALICYLATES) 04/22/2005 7 - Swelling Comments: lip swelling DICLOFENAC 02/21/2006 12 - Shortness of Breath IODINE 04/22/2005 12 - Shortness of Breath MONISTAT 1 (TIOCONAZOLE) 04/22/2005 5 - Intolerance Comments: Burning Date Reviewed: 09/04/2023 Reviewed by: Zarina Sparks MA - Fully Assessed Reason for Visit: Results [95] Prescriptions as of 09/07/2023 - fluticasone-salmeterol (WIXELA INHUB) 250-50 mcg/dose inhaler Inhale 1 Puff as instructed two times a day. - dilTIAZem CD (CARDIZEM CD) 180 mg 24 hr capsule Take 1 capsule by mouth once daily. - mometasone-formoterol (DULERA) 100-5 mcg/actuation inhaler Inhale 2 Puffs as instructed two times a day. - budesonide-formoterol (SYMBICORT) 160-4.5 mcg/actuation inhaler Inhale 2 Puffs as instructed twice daily. - calcium citrate (CITRACAL ORAL) Take 2 capsules by mouth two times a day. - clindamycin (CLEOCIN T) 1 % gel Apply to affected area once daily. - denosumab (PROLIA) 60 mg/mL Inject subcutaneously once every 6 months. - albuterol HFA (VENTOLIN HFA) 90 mcg/actuation inhaler Inhale 2 Puffs as instructed every 4 hours as needed for wheezing/shortness of breath. - melatonin 3 mg tablet Take 3 mg by mouth. qhs - acetaminophen 325 mg cap Take by mouth as needed. - MULTIVITAMIN ORAL Take 1 tablet by mouth once daily. Problem List As Of Date 09/07/2023 Noted Resolved GENERAL OSTEOARTHROSIS [M15.9] 11/18/2005 07/03/2015 Essential hypertension [I10] 11/18/2005 Non-rheumatic mitral regurgitation [I34.0] Unspecified asthma [J45.909] 04/11/2011 Disorder of bone and cartilage, unspecified [M8* 12/04/2019 Cervicalgia [M54.2] 08/28/2007 08/09/2018 Idiopathic scoliosis and kyphoscoliosis [M41.20]01/09/2011 Family history of colon cancer [Z80.0] 07/06/2011 Bursitis of right shoulder [M75.51] 10/10/2011 08/09/2018 Osteoporosis [M81.0] 10/10/2011 Psychophysiological insomnia [F51.04] 10/26/2011 Multinodular thyroid [E04.2] 10/27/2011 Other pulmonary embolism and infarction (HCC) [*07/25/2012 07/21/2016 Complete uterovaginal prolapse [N81.3] 01/09/2015 03/30/2016 Pelvic muscle wasting [N81.84] 01/09/2015 08/09/2018 Postmenopausal atrophic vaginitis [N95.2] 01/09/2015 Muscle weakness [M62.81] 02/16/2015 07/21/2016 Restrictive 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 *07/31/2015 Incomplete uterovaginal prolapse [N81.2] 04/05/2016 Monoclonal gammopathy [D47.2] 03/30/2017 Hypercalcemia [E83.52] 08/09/2018 Mitral valve prolapse [I34.1] 08/09/2018 09/16/2022 Bilateral carotid artery stenosis [I65.23] 08/09/2018 Obstructive cardiomyopathy (HCC) [I42.8] 01/28/2019 Precordial pain [R07.2] 01/28/2019 09/16/2022 Dyspnea on exertion [R06.09] 05/31/2019 09/16/2022 SVT (supraventricular tachycardia) (HCC) [I47.1*01/14/2020 Screening for colon cancer [Z12.11] 09/24/2020 09/24/2020 Murmur [R01.1] 10/05/2020 09/16/2021 HOCM (hypertrophic obstructive cardiomyopathy) *10/05/2020 Age-related osteoporosis without current pathol*09/10/2021 06/13/2023 Closed fracture of distal radius and ulna [S52.*03/18/2022 Cyst of kidney, acquired [N28.1] 02/18/2022 Greater trochanteric bursitis [M70.60] 03/18/2022 09/16/2022 Normal pelvic exam [Z01.419] 01/24/2017 09/16/2022 Mild intermittent asthma without complication [*03/22/2022 Dizziness [R42] 11/17/2022 Epistaxis [R04.0] 11/17/2022 06/13/2023 Encounter Status:Closed by VIANNEY STEEN on 09/07/23 Normal [facility]3 [facility] 25-hydroxyvitamin D3 [Mass/Vol] 57.7 ng/mL Normal 31.0-80.0 [facility] Comment on above: Order Comment: Speci men Type: BLOOD SPECIMENOrdering Facility: [facility] Address: [address] [place] [address] Performed By: #### 1 989-3 ####[facility] [id number] [place] [address] [place] Calcium.ionized [Moles/Vol]o n 09-06-2023 Calcium.ionized (Bld) [Mass/Vol] 1.33 mmol/L High 1.08-1.30 [facility] Comment on above: Order Comment: Speci men Type: BLOOD SPECIMENOrdering Facility: [facility] Address: [address] [place] [address] Performed By: #### 1 995-0 ####[facility] [id number] [place] [address] [place] Calcium.ionized adjusted to pH 7.4 (Bld) [Moles/Vol] 1.31 mmol/L High 1.08-1.30 [facility] Comment on above: Order Comment: Speci men Type: BLOOD SPECIMENOrdering Facility: [facility] Address: [address] [place] [address] Performed By: #### 1 995-0 ####[facility] [id number] [place] [address] [place] PTH-Intact SerPl-mCncon Parathyrin.intact [Mass/Vol] 43 pg/mL Normal 15-65 [facility] Comment on above: Order Comment: Speci men Type: BLOOD SPECIMENOrdering Facility: [facility] Address: [address] [place] [address] Performed By: #### 3 053-6, 3016-3, 2731-8, 3024-7 ####[facility] [id number] [place] [address] [place] T3 SerPl-mCncon 09-06-2023 T3 [Mass/Vol] 90 ng/dL Normal 79-165 [facility] Comment on above: Order Comment: Speci men Type: BLOOD SPECIMENOrdering Facility: [facility] Address: [address] [place] [address] Performed By: #### 3 053-6, 3016-3, 2731-8, 302-7 ####[facility] LABCLIA [id number] [place] [address] [place] T4 Free SerPl-mCncon 024 Free T4 [Mass/Vol] 1.6 ng/dL Normal 0.9-1.7 [facility] Comment on above: Order Comment: Speci men Type: BLOOD SPECIMENOrdering Facility: [facility] Address: [address] [place] [address] Performed By: #### 3 053-6, 3016-3, 2730-8, 3023-7 ####[facility] LABCLIA [id number] [place] [address] [place] TSH SerPl-aCncon 09-06-2023 TSH Qn 2.290 m[IU]/L Normal 0.270-4.200 [facility] Comment on above: Order Comment: Speci men Type: BLOOD SPECIMENOrdering Facility: [facility] Address: [address] [place] [address] Performed By: #### 3 053-6, 3016-3, 2730-8, 3023-7 ####[facility] LABIA [id number] [place] [address] [place] CNPDiane 09-05-2023 CNPN Telephone (FAMWS) VANDANA MITCHELL ([id number]) 1950 F NFR Date Time Provider Department 09/05/23 RYLEE DUARTE During your visit today, we recorded the following information about you: Rylee Duarte APRN.LADONNA 09/05/2023 9:05 AM Signed Please let patient know that her blood counts, inflammatory markers, and CMP were normal except her protein levels are little bit low and her calcium level is high. She has been taking Citracal and Prolia. That is likely the reason. However, I need for her to check a parathyroid hormone, her thyroid hormones, and an ionized calcium. Orders have been placed. Zarina Sparks MA 09/05/2023 9:18 AM Signed Patient was made aware of the results. Patient verbalizes understanding. She will stop by lab today or tomorrow. Zarina Sparks Ma Allergies As of Date: 09/05/2023 Noted Allergy Reaction AMOXICILLIN 04/22/2005 2 - Rash ASA (SALICYLATES) 04/22/2005 7 - Swelling Comments: lip swelling DICLOFENAC 02/21/2006 12 - Shortness of Breath IODINE 04/22/2005 12 - Shortness of Breath MONISTAT 1 (TIOCONAZOLE) 04/22/2005 5 - Intolerance Comments: Burning Date Reviewed: 09/04/2023 Reviewed by: Zarina Sparks MA - Fully Assessed Primary Visit Diagnosis:Multinodular thyroid [E04.2] Other Visit Diagnosis:Hypercalcemia [E83.52] Order(s):PTH INTACT BLD [SQPTHI] Order #: [id number] FUTURE TSH BLD [SQTSH] Order #: [id number] FUTURE CALCIUM IONIZED BLOOD [SQICA] Order #: [id number] FUTURE T4 FREE/FREE THYROX [SQFT4] Order #: [id number] FUTURE T3 BLD [SQT3] Order #: [id number] FUTURE Prescriptions as of 09/05/2023 - fluticasone-salmeterol (WIXELA INHUB) 250-50 mcg/dose inhaler Inhale 1 Puff as instructed two times a day. - dilTIAZem CD (CARDIZEM CD) 180 mg 24 hr capsule Take 1 capsule by mouth once daily. - mometasone-formoterol (DULERA) 100-5 mcg/actuation inhaler Inhale 2 Puffs as instructed two times a day. - budesonide-formoterol (SYMBICORT) 160-4.5 mcg/actuation inhaler Inhale 2 Puffs as instructed twice daily. - calcium citrate (CITRACAL ORAL) Take 2 capsules by mouth two times a day. - clindamycin (CLEOCIN T) 1 % gel Apply to affected area once daily. - denosumab (PROLIA) 60 mg/mL Inject subcutaneously once every 6 months. - albuterol HFA (VENTOLIN HFA) 90 mcg/actuation inhaler Inhale 2 Puffs as instructed every 4 hours as needed for wheezing/shortness of breath. - melatonin 3 mg tablet Take 3 mg by mouth. qhs - acetaminophen 325 mg cap Take by mouth as needed. - MULTIVITAMIN ORAL Take 1 tablet by mouth once daily. Problem List As Of Date 09/05/2023 Noted Resolved GENERAL OSTEOARTHROSIS [M15.9] 11/18/2005 07/03/2015 Essential hypertension [I10] 11/18/2005 Non-rheumatic mitral regurgitation [I34.0] Unspecified asthma [J45.909] 04/11/2011 Disorder of bone and cartilage, unspecified [M8* 12/04/2019 Cervicalgia [M54.2] 08/28/2007 08/09/2018 Idiopathic scoliosis and kyphoscoliosis [M41.20]01/09/2011 Family history of colon cancer [Z80.0] 07/06/2011 Bursitis of right shoulder [M75.51] 10/10/2011 08/09/2018 Osteoporosis [M81.0] 10/10/2011 Psychophysiological insomnia [F51.04] 10/26/2011 Multinodular thyroid [E04.2] 10/27/2011 Other pulmonary embolism and infarction (HCC) [*07/25/2012 07/21/2016 Complete uterovaginal prolapse [N81.3] 01/09/2015 03/30/2016 Pelvic muscle wasting [N81.84] 01/09/2015 08/09/2018 Postmenopausal atrophic vaginitis [N95.2] 01/09/2015 Muscle weakness [M62.81] 02/16/2015 07/21/2016 Restrictive 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 *07/31/2015 Incomplete uterovaginal prolapse [N81.2] 04/05/2016 Monoclonal gammopathy [D47.2] 03/30/2017 Hypercalcemia [E83.52] 08/09/2018 Mitral valve prolapse [I34.1] 08/09/2018 09/16/2022 Bilateral carotid artery stenosis [I65.23] 08/09/2018 Obstructive cardiomyopathy (HCC) [I42.8] 01/28/2019 Precordial pain [R07.2] 01/28/2019 09/16/2022 Dyspnea on exertion [R06.09] 05/31/2019 09/16/2022 SVT (supraventricular tachycardia) (HCC) [I47.1*01/14/2020 Screening for colon cancer [Z12.11] 09/24/2020 09/24/2020 Murmur [R01.1] 10/05/2020 09/16/2021 HOCM (hypertrophic obstructive cardiomyopathy) *10/05/2020 Age-related osteoporosis without current pathol*09/10/2021 06/13/2023 Closed fracture of distal radius and ulna [S52.*03/18/2022 Cyst of kidney, acquired [N28.1] 02/18/2022 Greater trochanteric bursitis [M70.60] 03/18/2022 09/16/2022 Normal pelvic exam [Z01.419] 01/24/2017 09/16/2022 Mild intermittent asthma without complication [*03/22/2022 Dizziness [R42] 11/17/2022 Epistaxis [R04.0] 11/17/2022 06/13/2023 Encounter Status:Closed by ZARINA SPARKS on 09/05/23 [facility] ([id number]) 1950 F NFR Date Time Provider Department 09/05/23 CLARY NOLASCO HVICTR During your visit today, we recorded the following information about you: Martha Ureña, RN 09/05/2023 12:[address] Means please see below econsult request received from Rylee Hernandez APRN.CNS, APRN.CNS to P HVI RESOURCE NURSE 09/04/23 12:26 PM If the patient has an established Pot Puller, please communicate patient concern(s) directly to his/her established Specialist for follow up recommendations. Clinical Question I am requesting a Cardiology E-Consult for my 73 year old female patient, Vandana Mitchell. My clinical question: pt. Has known hypertrophic CM, havig episodes of chest heaviness with activity and stress Please assess and respond with your recommendations regarding review of approval for stress test with hypertrophic CM Vandana Mitchell has been informed of this E-Consult request to the [facility]. Provided by: Rylee Duarte APRN.CNS Location: [address] [address] Dept: [phone] A Pot Puller will respond to your E-Consult request in approximately 1 business day. For responses not requiring a face to face consult, It is the responsibility of the requesting provider to communicate HVI opinions back to the patient. Allergies As of Date: 09/05/2023 Noted Allergy Reaction AMOXICILLIN 04/22/2005 2 - Rash ASA (SALICYLATES) 04/22/2005 7 - Swelling Comments: lip swelling DICLOFENAC 02/21/2006 12 - Shortness of Breath IODINE 04/22/2005 12 - Shortness of Breath MONISTAT 1 (TIOCONAZOLE) 04/22/2005 5 - Intolerance Comments: Burning Date Reviewed: 09/04/2023 Reviewed by: Zarina Sparks MA - Fully Assessed Prescriptions as of 09/05/2023 - fluticasone-salmeterol (WIXELA INHUB) 250-50 mcg/dose inhaler Inhale 1 Puff as instructed two times a day. - dilTIAZem CD (CARDIZEM CD) 180 mg 24 hr capsule Take 1 capsule by mouth once daily. - mometasone-formoterol (DULERA) 100-5 mcg/actuation inhaler Inhale 2 Puffs as instructed two times a day. - budesonide-formoterol (SYMBICORT) 160-4.5 mcg/actuation inhaler Inhale 2 Puffs as instructed twice daily. - calcium citrate (CITRACAL ORAL) Take 2 capsules by mouth two times a day. - clindamycin (CLEOCIN T) 1 % gel Apply to affected area once daily. - denosumab (PROLIA) 60 mg/mL Inject subcutaneously once every 6 months. - albuterol HFA (VENTOLIN HFA) 90 mcg/actuation inhaler Inhale 2 Puffs as instructed every 4 hours as needed for wheezing/shortness of breath. - melatonin 3 mg tablet Take 3 mg by mouth. qhs - acetaminophen 325 mg cap Take by mouth as needed. - MULTIVITAMIN ORAL Take 1 tablet by mouth once daily. Problem List As Of Date 09/05/2023 Noted Resolved GENERAL OSTEOARTHROSIS [M15.9] 11/18/2005 07/03/2015 Essential hypertension [I10] 11/18/2005 Non-rheumatic mitral regurgitation [I34.0] Unspecified asthma [J45.909] 04/11/2011 Disorder of bone and cartilage, unspecified [M8* 12/04/2019 Cervicalgia [M54.2] 08/28/2007 08/09/2018 Idiopathic scoliosis and kyphoscoliosis [M41.20]01/09/2011 Family history of colon cancer [Z80.0] 07/06/2011 Bursitis of right shoulder [M75.51] 10/10/2011 08/09/2018 Osteoporosis [M81.0] 10/10/2011 Psychophysiological insomnia [F51.04] 10/26/2011 Multinodular thyroid [E04.2] 10/27/2011 Other pulmonary embolism and infarction (HCC) [*07/25/2012 07/21/2016 Complete uterovaginal prolapse [N81.3] 01/09/2015 03/30/2016 Pelvic muscle wasting [N81.84] 01/09/2015 08/09/2018 Postmenopausal atrophic vaginitis [N95.2] 01/09/2015 Muscle weakness [M62.81] 02/16/2015 07/21/2016 Restrictive 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 *07/31/2015 Incomplete uterovaginal prolapse [N81.2] 04/05/2016 Monoclonal gammopathy [D47.2] 03/30/2017 Hypercalcemia [E83.52] 08/09/2018 Mitral valve prolapse [I34.1] 08/09/2018 09/16/2022 Bilateral carotid artery stenosis [I65.23] 08/09/2018 Obstructive cardiomyopathy (HCC) [I42.8] 01/28/2019 Precordial pain [R07.2] 01/28/2019 09/16/2022 Dyspnea on exertion [R06.09] 05/31/2019 09/16/2022 SVT (supraventricular tachycardia) (HCC) [I47.1*01/14/2020 Screening for colon cancer [Z12.11] 09/24/2020 09/24/2020 Murmur [R01.1] 10/05/2020 09/16/2021 HOCM (hypertrophic obstructive cardiomyopathy) *10/05/2020 Age-related osteoporosis without current pathol*09/10/2021 06/13/2023 Closed fracture of distal radius and ulna [S52.*03/18/2022 Cyst of kidney, acquired [N28.1] 02/18/2022 Greater trochanteric bursitis [M70.60] 03/18/2022 09/16/2022 Normal pelvic exam [Z01.419] 01/24/2017 09/16/2022 Mild intermittent asthma without complication [*03/22/2022 Dizziness [R42] 11/17/2022 Epistaxis [R04.0] 11/17/2022 06/13/2023 Encounter N (more content not included)... Normal [facility] CBC W Auto Differential pane l (Bld)on 09-04-2023 Basophils (Bld) [#/Vol] 0.11 10*3/uL High <0.11 k/uL [facility] Basophils/100 WBC (Bld) 1.7 % [facility] Differential cell count method Nom (Bld) Auto [facility] Eosinophils (Bld) [#/Vol] 0.11 10*3/uL <0.46 k/uL [facility] Eosinophils/100 WBC (Bld) 1.7 % [facility] Erythrocyte distribution width (RBC) [Ratio] 14.5 % 11.5 - 15.0 % [facility] Hematocrit (Bld) [Volume fraction] 39.8 % 36.0 - 46.0 % [facility] Hemoglobin (Bld) [Mass/Vol] 12.7 g/dL 11.5 - 15.5 g/dL [facility] Immature granulocytes (Bld) [#/Vol] <0.10 k/uL [facility] Immature granulocytes/100 WBC (Bld) 0.3 % [facility] Lymphocytes (Bld) [#/Vol] 1.34 10*3/uL 1.00 - 4.00 k/uL [facility] Lymphocytes/100 WBC (Bld) 21.0 % [facility] MCH (RBC) [Entitic mass] 26.5 pg 26.0 - 34.0 pg [facility] MCHC (RBC) [Mass/Vol] 31.9 g/dL 30.5 - 36.0 g/dL [facility] MCV (RBC) [Entitic vol] 82.9 fL 80.0 - 100.0 fL [facility] Monocytes (Bld) [#/Vol] 0.72 10*3/uL <0.87 k/uL [facility] Monocytes/100 WBC (Bld) 11.3 % [facility] Neutrophils (Bld) [#/Vol] 4.08 10*3/uL 1.45 - 7.50 k/uL [facility] Neutrophils/100 WBC (Bld) 64.0 % [facility] Nucleated RBC (Bld) [#/Vol] <0.01 k/uL [facility] Nucleated RBC/100 WBC (Bld) [Ratio] 0.0 /100 WBC [facility] Platelet mean volume (Bld) [Entitic vol] 11.9 fL 9.0 - 12.7 fL [facility] Platelets (Bld) [#/Vol] 277 10*3/uL 150 - 400 k/uL [facility] RBC (Bld) [#/Vol] 4.80 10*6/uL 3.90 - 5.2 0 m/uL [facility] WBC (Bld) [#/Vol] 6.38 10*3/uL 3.70 - 11. 00 k/uL [facility] Basophils (Bld) [#/Vol] 0.11 10*3/uL High <0.11 [facility] Comment on above: Order Comment: Speci men Type: BLOOD SPECIMENOrdering Facility: [facility] Address: [address] [place] [address] Performed By: #### 5 7021-8 ####[facility] LABCLIA [id number] [place] [address] [place] Basophils/100 WBC (Bld) 1.7 % Normal [facility] Comment on above: Order Comment: Speci men Type: BLOOD SPECIMENOrdering Facility: [facility] Address: [address] [place] [address] Performed By: #### 5 7021-8 ####[facility] LABCLIA [id number] [place] [address] [place] Differential cell count method Nom (Bld) Auto Normal [facility] Comment on above: Order Comment: Speci men Type: BLOOD SPECIMENOrdering Facility: [facility] Address: [address] [place] [address] Performed By: #### 5 7021-8 ####[facility] LABCLIA [id number] [place] [address] [place] Eosinophils (Bld) [#/Vol] 0.11 10*3/uL Normal <0.46 [facility] Comment on above: Order Comment: Speci men Type: BLOOD SPECIMENOrdering Facility: [facility] Address: [address] [place] [address] Performed By: #### 5 7021-8 ####[facility] LABCLIA [id number] [place] [address] [place] Eosinophils/100 WBC (Bld) 1.7 % Normal [facility] Comment on above: Order Comment: Speci men Type: BLOOD SPECIMENOrdering Facility: [facility] Address: [address] [place] [address] Performed By: #### 5 7021-8 ####[facility] LABCLIA [id number] [place] [address] [place] Erythrocyte distribution width (RBC) [Ratio] 14.5 % Normal 11.5-15.0 [facility] Comment on above: Order Comment: Speci men Type: BLOOD SPECIMENOrdering Facility: [facility] Address: [address] [place] [address] Performed By: #### 5 7021-8 ####[facility] LABCLIA [id number] [place] [address] [place] Hematocrit (Bld) [Volume fraction] 39.8 % Normal 36.0-46.0 [facility] Comment on above: Order Comment: Speci men Type: BLOOD SPECIMENOrdering Facility: [facility] Address: [address] [place] [address] Performed By: #### 5 7021-8 ####[facility] LABIA [id number] [place] [address] [place] Hemoglobin (Bld) [Mass/Vol] 12.7 g/dL Normal 11.5-15.5 [facility] Comment on above: Order Comment: Speci men Type: BLOOD SPECIMENOrdering Facility: [facility] Address: [address] [place] [address] Performed By: #### 5 7021-8 ####[facility] LABIA [id number] [place] [address] [place] Immature granulocytes (Bld) [#/Vol] 10*3/uL Normal <0.10 [facility] Comment on above: Order Comment: Speci men Type: BLOOD SPECIMENOrdering Facility: [facility] Address: [address] [place] [address] Performed By: #### 5 7021-8 ####[facility] LABCLIA [id number] [place] [address] [place] Immature granulocytes/100 WBC (Bld) 0.3 % Normal [facility] Comment on above: Order Comment: Speci men Type: BLOOD SPECIMENOrdering Facility: [facility] Address: [address] [place] [address] Performed By: #### 5 7021-8 ####[facility] LABCLIA [id number] [place] [address] [place] Lymphocytes (Bld) [#/Vol] 1.34 10*3/uL Normal 1.00-4.00 [facility] Comment on above: Order Comment: Speci men Type: BLOOD SPECIMENOrdering Facility: [facility] Address: [address] [place] [address] Performed By: #### 5 7021-8 ####[facility] LABIA [id number] [place] [address] [place] Lymphocytes/100 WBC (Bld) 21.0 % Normal [facility] Comment on above: Order Comment: Speci men Type: BLOOD SPECIMENOrdering Facility: [facility] Address: [address] [place] [address] Performed By: #### 5 7021-8 ####[facility] LABIA [id number] [place] [address] [place] MCH (RBC) [Entitic mass] 26.5 pg Normal 26.0-34.0 [facility] Comment on above: Order Comment: Speci men Type: BLOOD SPECIMENOrdering Facility: [facility] Address: [address] [place] [address] Performed By: #### 5 7021-8 ####[facility] LABCLIA [id number] [place] [address] [place] MCHC (RBC) [Mass/Vol] 31.9 g/dL Normal 30.5-36.0 [facility] Comment on above: Order Comment: Speci men Type: BLOOD SPECIMENOrdering Facility: [facility] Address: [address] [place] [address] Performed By: #### 5 7021-8 ####[facility] LABCLIA [id number] [place] [address] [place] MCV (RBC) [Entitic vol] 82.9 fL Normal 80.0-100.0 [facility] Comment on above: Order Comment: Speci men Type: BLOOD SPECIMENOrdering Facility: [facility] Address: [address] [place] [address] Performed By: #### 5 7021-8 ####[facility] LABCLIA [id number] [place] [address] [place] Monocytes (Bld) [#/Vol] 0.72 10*3/uL Normal <0.87 [facility] Comment on above: Order Comment: Speci men Type: BLOOD SPECIMENOrdering Facility: [facility] Address: [address] [place] [address] Performed By: #### 5 7021-8 ####[facility] LABCLIA [id number] [place] [address] [place] Monocytes/100 WBC (Bld) 11.3 % Normal [facility] Comment on above: Order Comment: Speci men Type: BLOOD SPECIMENOrdering Facility: [facility] Address: [address] [place] [address] Performed By: #### 5 7021-8 ####[facility] LABCLIA [id number] [place] [address] [place] Neutrophils (Bld) [#/Vol] 4.08 10*3/uL Normal 1.45-7.50 [facility] Comment on above: Order Comment: Speci men Type: BLOOD SPECIMENOrdering Facility: [facility] Address: [address] [place] [address] Performed By: #### 5 7021-8 ####[facility] LABCLIA [id number] [place] [address] [place] Neutrophils/100 WBC (Bld) 64.0 % Normal [facility] Comment on above: Order Comment: Speci men Type: BLOOD SPECIMENOrdering Facility: [facility] Address: [address] [place] [address] Performed By: #### 5 7021-8 ####[facility] LABCLIA [id number] [place] [address] [place] Nucleated RBC (Bld) [#/Vol] 10*3/uL Normal <0.01 [facility] Comment on above: Order Comment: Speci men Type: BLOOD SPECIMENOrdering Facility: [facility] Address: [address] [place] [address] Performed By: #### 5 7021-8 ####[facility] LABCLIA [id number] [place] [address] [place] Nucleated RBC/100 WBC (Bld) [Ratio] 0.0 /100 WBC Normal [facility] Comment on above: Order Comment: Speci men Type: BLOOD SPECIMENOrdering Facility: [facility] Address: [address] [place] [address] Performed By: #### 5 7021-8 ####[facility] LABCLIA [id number] [place] [address] [place] Platelet mean volume (Bld) [Entitic vol] 11.9 fL Normal 9.0-12.7 [facility] Comment on above: Order Comment: Speci men Type: BLOOD SPECIMENOrdering Facility: [facility] Address: [address] [place] [address] Performed By: #### 5 7021-8 ####[facility] LABCLIA [id number] [place] [address] [place] Platelets (Bld) [#/Vol] 277 10*3/uL Normal 150-400 [facility] Comment on above: Order Comment: Speci men Type: BLOOD SPECIMENOrdering Facility: [facility] Address: [address] [place] [address] Performed By: #### 5 7021-8 ####[facility] LABCLIA [id number] [place] [address] [place] RBC (Bld) [#/Vol] 4.80 10*6/uL Normal 3.90-5.20 [facility] Comment on above: Order Comment: Speci men Type: BLOOD SPECIMENOrdering Facility: [facility] Address: [address] [place] [address] Performed By: #### 5 7021-8 ####[facility] [id number] [place] [address] [place] WBC (Bld) [#/Vol] 6.38 10*3/uL Normal 3.70-11.00 [facility] Comment on above: Order Comment: Speci men Type: BLOOD SPECIMENOrdering Facility: [facility] Address: [address] [place] [address] Performed By: #### 5 7021-8 ####[facility] [id number] [place] [address] [place] CK CREATINE KINASEon 024 CK [Catalytic activity/Vol] 52 U/L 42 - 196 U/L [facility] CK SerPl-cCncon 09-04-2023 CK [Catalytic activity/Vol] 52 U/L Normal 42-196 [facility] Comment on above: Order Comment: Speci men Type: BLOOD SPECIMENOrdering Facility: [facility] Address: [address] [place] [address] Performed By: #### 2 4323-8, 2157-6 ####[facility] LABIA [id number] [place] [address] [place] CNOVon 09-04-2023 CNOV Office Visit (FAMPWS ) VANDANA MITCHELL ([id number]) 1950 F NFR Date Time Provider Department 09/04/23 11:00 AM RYLEE DUARTE During your visit today, we recorded the following information about you: Temperature Pulse Blood pressure Weight 98.2 degrees 82/minute 158/90 51.7 kg Rylee Duarte, [employer] ENGINEER.[employer] 09/04/2023 12:07 PM Signed This is a 73 year old female who presents today with: Patient presents with: Chest Pain: Chest pain, one episode yesterday, lasting 30 minutes to 1 hour, described as a tightness. Fatigue: Weak feeling when active starting then end of last week. HISTORY OF PRESENT ILLNESS: Vandana Mitchell is a 73 year old female. Patient presents with: Chest Pain: Chest pain, one episode yesterday, lasting 30 minutes to 1 hour, described as a tightness. Fatigue: Weak feeling when active starting then end of last week. Chest pain yesterday. Was cooking [employer] dinner for herself and . Cooking does stress her anymore. Went upstairs and felt very tired. Lasted 30 -60 min. Mid-sternal chest heaviness, maybe tight. No radiation of pain. Some aching in back in the evening- not new. No SOB. No diaphoresis. Kept working during the chest pain- sat down and eventually just went away Never smoked. Known Hypertrophic CM No familiy Hx of ME PAST MEDICAL HISTORY: PAST MEDICAL HISTORY Diagnosis Date Arthritis Diastolic dysfunction Grade I Disorder of bone and cartilage, unspecified Diverticulosis 2009 colonoscopy History of transfusion HOCM (hypertrophic obstructive cardiomyopathy) (HCC) Insomnia, unspecified Melanocytic Nevocellular Nevi pigmented moles of trunk: back mainly 08/02/2011 Mitral valve disorders Monoclonal gammopathy 04/2017 Osteoporosis Other diseases of lung, not elsewhere classified restrictive lung disease Other pulmonary embolism and infarction 07/25/2012 ? had pe with normal d dimer. saw pulmonary. not convinced she did have one. Renal cyst Small airways disease Possible asthma. Patient unable to perform definitive test SVT (supraventricular tachycardia) (HCC) 01/14/2020 Unspecified essential hypertension PAST SURGICAL HISTORY Procedure Laterality Date BACK SURGERY HX BIOPSY BREAST OPEN INCISIONAL left Bx of breast, incisional COLONOSCOPY FLX DX W/COLLJ SPEC WHEN PFRMD 10/27/2004 Colonoscopy COLONOSCOPY FLX DX W/COLLJ SPEC WHEN PFRMD 02/22/2010 Colonoscopy COLONOSCOPY FLX DX W/COLLJ SPEC WHEN PFRMD 03/19/2015 Colonoscopy CORRECT BUNION,SIMPLE CORRECTION HAMMERTOE EYE SURGERY HX PAST SURGICAL HISTORY OF scoliosis surgery PAST SURGICAL HISTORY OF laser kidney stone TONSILLECTOMY HX TONSILLECTOMY PRIMARY/SECONDARY Tonsillectomy ALLERGIES Amoxicillin, Asa [Salicylates], Diclofenac, Iodine, and Monistat 1 [Tioconazole] MEDICATIONS Current Outpatient Medications Medication Sig fluticasone-salmeterol (WIXELA INHUB) 250-50 mcg/dose inhaler Inhale 1 Puff as instructed two times a day. dilTIAZem CD (CARDIZEM CD) 180 mg 24 hr capsule Take 1 capsule by mouth once daily. calcium citrate (CITRACAL ORAL) Take 2 capsules by mouth two times a day. clindamycin (CLEOCIN T) 1 % gel Apply to affected area once daily. denosumab (PROLIA) 60 mg/mL Inject subcutaneously once every 6 months. albuterol HFA (VENTOLIN HFA) 90 mcg/actuation inhaler Inhale 2 Puffs as instructed every 4 hours as needed for wheezing/shortness of breath. acetaminophen 325 mg cap Take by mouth as needed. MULTIVITAMIN ORAL Take 1 tablet by mouth once daily. mometasone-formoterol (DULERA) 100-5 mcg/actuation inhaler Inhale 2 Puffs as instructed two times a day. budesonide-formoterol (SYMBICORT) 160-4.5 mcg/actuation inhaler Inhale 2 Puffs as instructed twice daily. melatonin 3 mg tablet Take 3 mg by mouth. [facility] No current facility-administered medications for this visit. FAMILY HISTORY Problem Relation Age of Onset Colon Cancer Mother 56 Hypertension Mother Colon Cancer Father Diabetes Father Hypertension Maternal Grandmother Social History Tobacco Use Smoking status: Never Smokeless tobacco: Never Tobacco comments: Father smoked in childhood home. Spouse does not smoke. Vaping Use Vaping Use: Never used Substance Use Topics Alcohol use: Yes Comment: Occasionally. Drug use: No EXAM: BP 158/90 Pulse 82 Temp 36.8 ?C (98.2 ?F) (Left Tympanic) Wt 51.7 kg (114 lb) SpO2 95% BMI 20.65 kg/m? PHYSICAL EXAM: General Appearance: Well appearing, alert, in no acute distress, well-hydrated, well nourished.. Skin: Skin color, texture, turgor normal, no suspicious rashes or lesions. Head: Normocephalic, no masses, lesions, tenderness or abnormalities. Lungs: Lungs clear to auscultation. No wheezing, rhonchi, rales.. Heart: RRR without murmur, gallop, or rubs. No ectopy. Extremities: No deformities, edema, s (more content not included)... Normal [facility] Comprehensive metabolic 2000 panelon 09-04-2023 Albumin [Mass/Vol] 4.5 g/dL 3.9 - 4.9 g/dL [facility] ALP [Catalytic activity/Vol] 63 U/L 34 - 123 U/L [facility] ALT [Catalytic activity/Vol] 17 U/L 7 - 38 U/L [facility] Anion gap [Moles/Vol] 11 mmol/L 9 - 18 mmol/L [facility] AST [Catalytic activity/Vol] 27 U/L 13 - 35 U/L [facility] Bilirubin [Mass/Vol] 0.2 mg/dL 0.2 - 1.3 mg/dL [facility] Calcium [Mass/Vol] 10.9 mg/dL High 8.5 - 10. 2 mg/dL [facility] Chloride [Moles/Vol] 103 mmol/L 97 - 105 mmol/L [facility] CO2 [Moles/Vol] 28 mmol/L 22 - 30 mmol/L [facility] Creatinine [Mass/Vol] 0.64 mg/dL 0.58 - 0.96 mg/dL [facility] Estimated Glomerular Filtration Rate 93 mL/min/1.73m >=60 mL/min/1.73m [facility] Glucose [Mass/Vol] 85 mg/dL 74 - 99 mg/dL [facility] Potassium [Moles/Vol] 4.2 mmol/L 3.7 - 5.1 mmol/L [facility] Protein [Mass/Vol] 6.2 g/dL Low 6.3 - 8.0 g/dL [facility] Sodium [Moles/Vol] 142 mmol/L 136 - 144 mmol/L [facility] Urea nitrogen [Mass/Vol] 17 mg/dL 7 - 21 mg/dL [facility] Albumin [Mass/Vol] 4.5 g/dL Normal 3.9-4.9 [facility] Comment on above: Order Comment: Speci men Type: BLOOD SPECIMENOrdering Facility: [facility] Address: [address] [place] [address] Performed By: #### 2 4323-8, 2156-11 ####[facility] LABCLIA [id number] [place] [address] [place] ALP [Catalytic activity/Vol] 63 U/L Normal 34-123 [facility] Comment on above: Order Comment: Speci men Type: BLOOD SPECIMENOrdering Facility: [facility] Address: [address] [place] [address] Performed By: #### 2 4323-8, 2156-11 ####[facility] LABCLIA [id number] [place] [address] [place] ALT [Catalytic activity/Vol] 17 U/L Normal 7-38 [facility] Comment on above: Order Comment: Speci men Type: BLOOD SPECIMENOrdering Facility: [facility] Address: [address] [place] [address] Performed By: #### 2 4323-8, 2156-11 ####[facility] LABCLIA [id number] [place] [address] [place] Anion gap [Moles/Vol] 11 mmol/L Normal 9-18 [facility] Comment on above: Order Comment: Speci men Type: BLOOD SPECIMENOrdering Facility: [facility] Address: [address] [place] [address] Performed By: #### 2 4323-8, 2156-11 ####[facility] LABCLIA [id number] [place] [id number] [place] AST [Catalytic activity/Vol] 27 U/L Normal 13-35 [facility] Comment on above: Order Comment: Speci men Type: BLOOD SPECIMENOrdering Facility: [facility] Address: [address] [place] [id number] Performed By: #### 2 4323-8, 2156-11 ####[facility] LABCLIA [id number] [place] [id number] [place] Bilirubin [Mass/Vol] 0.2 mg/dL Normal 0.2-1.3 [facility] Comment on above: Order Comment: Speci men Type: BLOOD SPECIMENOrdering Facility: [facility] Address: [address] [place], [place] [address] Performed By: #### 2 4323-8, 2156-11 ####[facility] LABCLIA [id number] [place] [address] [place] Calcium [Mass/Vol] 10.9 mg/dL High 8.5-10.2 [facility] Comment on above: Order Comment: Speci men Type: BLOOD SPECIMENOrdering Facility: [facility] Address: [address] [place], [place] [address] Performed By: #### 2 4323-8, 2156-11 ####[facility] LABCLIA [id number] [place] [address] [place] Chloride [Moles/Vol] 103 mmol/L Normal 97-105 [facility] Comment on above: Order Comment: Speci men Type: BLOOD SPECIMENOrdering Facility: [facility] Address: [address] [place], [place] [id number] Performed By: #### 2 4323-8, 2156-11 ####[facility] LABCLIA [id number] [place] [id number] [place] CO2 [Moles/Vol] 28 mmol/L Normal 22-30 [facility] Comment on above: Order Comment: Speci men Type: BLOOD SPECIMENOrdering Facility: [facility] Address: [address] [place], [place] [address] Performed By: #### 2 4323-8, 2156-11 ####[facility] LABCLIA [id number] [address] [address] [place] Creatinine [Mass/Vol] 0.64 mg/dL Normal 0.58-0.96 [facility] Comment on above: Order Comment: Negin men Type: BLOOD SPECIMENOrdering Facility: [facility] Address: [address] [place] [address] Performed By: #### 2 4323-8, 2156-11 ####[facility] LABIA [id number] [address] [facility] Creatinine and Glomerular filtration rate.predicted panel (S/P/Bld) 93 mL/min/1.73m??? Normal >=60 [facility] Comment on above: Order Comment: Negin parson Type: BLOOD SPECIMENOrdering Facility: [facility] Address: [address] [place] [address] Result Comment: Betsy mated Glomerular Filtration Rate (eGFR) is calculated using the 2020 CKD-EPI creatinine equation. This equation utilizes serum creatinine, sex, and age as parameters. The creatinine assay has traceable calibration to isotope dilution-mass spectrometry. Refer to KDIGO guidelines for clinical interpretation. In patients with unstable renal function, e.g. those with acute kidney injury, the eGFR may not accurately reflect actual GFR. Performed By: #### 2 4323-8, 2156-11 ####[facility] LABIA [id number] [place] [id number] [place] Glucose [Mass/Vol] 85 mg/dL Normal 74-99 [facility] Comment on above: Order Comment: Speci men Type: BLOOD SPECIMENOrdering Facility: [facility] Address: [address] [place] [address] Result Comment: The [place] [employer] (ADA) provides guidance for cutoff values for fasting glucose and random glucose. The ADA defines fasting as no caloric intake for at least 8 hours. Fasting plasma glucose results between 100 to 125 mg/dL indicate increased risk for diabetes (prediabetes). Fasting plasma glucose results greater than or equal to 126 mg/dL meet the criteria for diagnosis of diabetes. In the absence of unequivocal hyperglycemia, results should be confirmed by repeat testing. In a patient with classic symptoms of hyperglycemia or hyperglycemic crisis, random plasma glucose results greater than or equal to 200 mg/dL meet the criteria for diagnosis of diabetes. Reference: Standards of Medical Care in Diabetes 2016, [place] [employer]. Diabetes Care. 2016.39(Suppl 1). Performed By: #### 2 4323-8, 2156-11 ####[facility] LABCLIA [id number] [place] [address] [place] Potassium [Moles/Vol] 4.2 mmol/L Normal 3.7-5.1 [facility] Comment on above: Order Comment: Speci men Type: BLOOD SPECIMENOrdering Facility: [facility] Address: [address] [place] [address] Performed By: #### 2 4328, 2156-11 ####[facility] LABCLIA [id number] [place] [address] [place] Protein [Mass/Vol] 6.2 g/dL Low 6.3-8.0 [facility] Comment on above: Order Comment: Sharyni men Type: BLOOD SPECIMENOrdering Facility: [facility] Address: [address] [place] [address] Performed By: #### 2 4328, 2156-11 ####[facility] LABCLIA [id number] [place] [address] [place] Sodium [Moles/Vol] 142 mmol/L Normal 136-144 [facility] Comment on above: Order Comment: Sharyni men Type: BLOOD SPECIMENOrdering Facility: [facility] Address: [address] [place] [address] Performed By: #### 2 4323-8, 2156-11 ####[facility] LABCLIA [id number] [address] [address] [place] Urea nitrogen [Mass/Vol] 17 mg/dL Normal 7-21 [facility] Comment on above: Order Comment: Speci men Type: BLOOD SPECIMENOrdering Facility: [facility] Address: [address] [place] [address] Performed By: #### 2 4323-8, 2157-6 ####[facility] LABCLIA [id number] [id number] [address] [place] ECG COMPLETEon 09-04-2023 ECG COMPLETE Ventricular Rate : 8 4 BPM Atrial Rate : 84 BPM P-R Interval : 200 ms QRS Duration : 70 ms Q-T Interval : 386 ms QTC Calculation(Bazett) : 456 ms Calculated P Lovilia : 76 degrees Calculated R Lovilia : 16 degrees Calculated T Lovilia : 62 degrees NORMAL SINUS RHYTHM NORMAL ECG Confirmed by MD MYLES GREGORY () on 09/05/2023 8:26:57 AM NAME : VANDANA MITCHELL PID : [id number] : 1950 Gender : Female Race : ORD : [id number] Procedure Date : Sep 04 2023 10:56:03 Edit Date : Sep 05 2023 08:27:01 Diagnosis: NORMAL SINUS RHYTHM NORMAL ECG Confirmed by MD MYLES GREGORY () on 09/05/2023 8:26:57 AM Test Reason : I20.89 Stable angina pectoris (HCC) Location : 185 : WO Overread By : MD MYLES GREGORY Edited By : MD MYLES GREGORY Referred By : , Acquired by : , Normal [facility] CNPNon 08-29-2023 CNPN Telephone (BRIANNEFRANCK) VANDANA MITCHELL ([id number]) 1950 F NFR Date Time Provider Department 08/29/23 NAIN CAMPBELLFRANCK During your visit today, we recorded the following information about you: Shanita Alvarado MA 08/29/2023 4:26 PM Signed Patient phones to reports her insurance formulary covers Wixela inhub AER 250/50. She is requesting a change if this is acceptable replacement for Dulera. [facility] Patient requesting to be notified by phone if the change is made. RHIANNON Beckett Danelle, RN 08/30/2023 3:27 PM Signed Patient called and notified of orders. Luis M Hameed RN Allergies As of Date: 08/29/2023 Noted Allergy Reaction AMOXICILLIN 04/22/2005 2 - Rash ASA (SALICYLATES) 04/22/2005 7 - Swelling Comments: lip swelling DICLOFENAC 02/21/2006 12 - Shortness of Breath IODINE 04/22/2005 12 - Shortness of Breath MONISTAT 1 (TIOCONAZOLE) 04/22/2005 5 - Intolerance Comments: Burning Date Reviewed: 07/04/2023 Reviewed by: Kalyan Serna MA - Fully Assessed Reason for Visit: Patient Question [7237] Cmt: Insurance formulary Order(s):fluticasone-sa lmeterol (WIXELA INHUB) 250-50 mcg/dose inhalerInhale 1 Puff as instructed two times a day.Disp: 1 EachRfl: 5 Prescriptions as of 08/30/2023 - fluticasone-salmeterol (WIXELA INHUB) 250-50 mcg/dose inhaler Inhale 1 Puff as instructed two times a day. - dilTIAZem CD (CARDIZEM CD) 180 mg 24 hr capsule Take 1 capsule by mouth once daily. - mometasone-formoterol (DULERA) 100-5 mcg/actuation inhaler Inhale 2 Puffs as instructed two times a day. - budesonide-formoterol (SYMBICORT) 160-4.5 mcg/actuation inhaler Inhale 2 Puffs as instructed twice daily. - calcium citrate (CITRACAL ORAL) Take 2 capsules by mouth two times a day. - clindamycin (CLEOCIN T) 1 % gel Apply to affected area once daily. - denosumab (PROLIA) 60 mg/mL Inject subcutaneously once every 6 months. - albuterol HFA (VENTOLIN HFA) 90 mcg/actuation inhaler Inhale 2 Puffs as instructed every 4 hours as needed for wheezing/shortness of breath. - melatonin 3 mg tablet Take 3 mg by mouth. qhs - acetaminophen 325 mg cap Take by mouth as needed. - MULTIVITAMIN ORAL Take 1 tablet by mouth once daily. Problem List As Of Date 08/29/2023 Noted Resolved GENERAL OSTEOARTHROSIS [M15.9] 11/18/2005 07/03/2015 Essential hypertension [I10] 11/18/2005 Non-rheumatic mitral regurgitation [I34.0] Unspecified asthma [J45.909] 04/11/2011 Disorder of bone and cartilage, unspecified [M8* 12/04/2019 Cervicalgia [M54.2] 08/28/2007 08/09/2018 Idiopathic scoliosis and kyphoscoliosis [M41.20]01/09/2011 Family history of colon cancer [Z80.0] 07/06/2011 Bursitis of right shoulder [M75.51] 10/10/2011 08/09/2018 Osteoporosis [M81.0] 10/10/2011 Psychophysiological insomnia [F51.04] 10/26/2011 Multinodular thyroid [E04.2] 10/27/2011 Other pulmonary embolism and infarction (HCC) [*07/25/2012 07/21/2016 Complete uterovaginal prolapse [N81.3] 01/09/2015 03/30/2016 Pelvic muscle wasting [N81.84] 01/09/2015 08/09/2018 Postmenopausal atrophic vaginitis [N95.2] 01/09/2015 Muscle weakness [M62.81] 02/16/2015 07/21/2016 Restrictive 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 *07/31/2015 Incomplete uterovaginal prolapse [N81.2] 04/05/2016 Monoclonal gammopathy [D47.2] 03/30/2017 Hypercalcemia [E83.52] 08/09/2018 Mitral valve prolapse [I34.1] 08/09/2018 09/16/2022 Bilateral carotid artery stenosis [I65.23] 08/09/2018 Obstructive cardiomyopathy (HCC) [I42.8] 01/28/2019 Precordial pain [R07.2] 01/28/2019 09/16/2022 Dyspnea on exertion [R06.09] 05/31/2019 09/16/2022 SVT (supraventricular tachycardia) (HCC) [I47.1*01/14/2020 Screening for colon cancer [Z12.11] 09/24/2020 09/24/2020 Murmur [R01.1] 10/05/2020 09/16/2021 HOCM (hypertrophic obstructive cardiomyopathy) *10/05/2020 Age-related osteoporosis without current pathol*09/10/2021 06/13/2023 Closed fracture of distal radius and ulna [S52.*03/18/2022 Cyst of kidney, acquired [N28.1] 02/18/2022 Greater trochanteric bursitis [M70.60] 03/18/2022 09/16/2022 Normal pelvic exam [Z01.419] 01/24/2017 09/16/2022 Mild intermittent asthma without complication [*03/22/2022 Dizziness [R42] 11/17/2022 Epistaxis [R04.0] 11/17/2022 06/13/2023 Prescriptions ordered this encounter Disp Refills Start End FLUTICASONE 250 MCG-SALMETEROL 50 MC* 1 Ea* 5 08/29/2023 Route: INHALATION Sig: Inhale 1 Puff as instructed two times a day. Encounter Status:Closed by NAIN CAMPBELL on 08/29/[address] [facility] Mendy 07-31-2023 LIZA Telephone (DANIELLE) VANDANA MITCHELL ([id number]) 1950 F NFR Date Time Provider Department 07/31/23 NAIN CAMPBELL During your visit today, we recorded the following information about you: Allie Bucio LPN 07/31/2023 9:25 AM Signed Patient called. She has a dental appointment today at 1330. She is taking Dulera and is to take Clarithromycin 500 MG prior to dental appointment. Patient would like to know if it is okay as she read there can be interactions. Patient is aware that provider has up to 72 hours to respond and is hoping she can get response prior. DIANA Martines Kathleen, LPN 07/31/2023 10:02 AM Signed OK to use one time dose. Pt. aware. Kristian Mims LPN Allergies As of Date: 07/31/2023 Noted Allergy Reaction AMOXICILLIN 04/22/2005 2 - Rash ASA (SALICYLATES) 04/22/2005 7 - Swelling Comments: lip swelling DICLOFENAC 02/21/2006 12 - Shortness of Breath IODINE 04/22/2005 12 - Shortness of Breath MONISTAT 1 (TIOCONAZOLE) 04/22/2005 5 - Intolerance Comments: Burning Date Reviewed: 07/04/2023 Reviewed by: Kalyan Serna MA - Fully Assessed Reason for Visit: Patient Question [6255] Prescriptions as of 07/31/2023 - dilTIAZem CD (CARDIZEM CD) 180 mg 24 hr capsule Take 1 capsule by mouth once daily. - mometasone-formoterol (DULERA) 100-5 mcg/actuation inhaler Inhale 2 Puffs as instructed two times a day. - budesonide-formoterol (SYMBICORT) 160-4.5 mcg/actuation inhaler Inhale 2 Puffs as instructed twice daily. - calcium citrate (CITRACAL ORAL) Take 2 capsules by mouth two times a day. - clindamycin (CLEOCIN T) 1 % gel Apply to affected area once daily. - denosumab (PROLIA) 60 mg/mL Inject subcutaneously once every 6 months. - albuterol HFA (VENTOLIN HFA) 90 mcg/actuation inhaler Inhale 2 Puffs as instructed every 4 hours as needed for wheezing/shortness of breath. - melatonin 3 mg tablet Take 3 mg by mouth. qhs - acetaminophen 325 mg cap Take by mouth as needed. - MULTIVITAMIN ORAL Take 1 tablet by mouth once daily. Problem List As Of Date 07/31/2023 Noted Resolved GENERAL OSTEOARTHROSIS [M15.9] 11/18/2005 07/03/2015 Essential hypertension [I10] 11/18/2005 Non-rheumatic mitral regurgitation [I34.0] Unspecified asthma [J45.909] 04/11/2011 Disorder of bone and cartilage, unspecified [M8* 12/04/2019 Cervicalgia [M54.2] 08/28/2007 08/09/2018 Idiopathic scoliosis and kyphoscoliosis [M41.20]01/09/2011 Family history of colon cancer [Z80.0] 07/06/2011 Bursitis of right shoulder [M75.51] 10/10/2011 08/09/2018 Osteoporosis [M81.0] 10/10/2011 Psychophysiological insomnia [F51.04] 10/26/2011 Multinodular thyroid [E04.2] 10/27/2011 Other pulmonary embolism and infarction (HCC) [*07/25/2012 07/21/2016 Complete uterovaginal prolapse [N81.3] 01/09/2015 03/30/2016 Pelvic muscle wasting [N81.84] 01/09/2015 08/09/2018 Postmenopausal atrophic vaginitis [N95.2] 01/09/2015 Muscle weakness [M62.81] 02/16/2015 07/21/2016 Restrictive 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 *07/31/2015 Incomplete uterovaginal prolapse [N81.2] 04/05/2016 Monoclonal gammopathy [D47.2] 03/30/2017 Hypercalcemia [E83.52] 08/09/2018 Mitral valve prolapse [I34.1] 08/09/2018 09/16/2022 Bilateral carotid artery stenosis [I65.23] 08/09/2018 Obstructive cardiomyopathy (HCC) [I42.8] 01/28/2019 Precordial pain [R07.2] 01/28/2019 09/16/2022 Dyspnea on exertion [R06.09] 05/31/2019 09/16/2022 SVT (supraventricular tachycardia) (HCC) [I47.1*01/14/2020 Screening for colon cancer [Z12.11] 09/24/2020 09/24/2020 Murmur [R01.1] 10/05/2020 09/16/2021 HOCM (hypertrophic obstructive cardiomyopathy) *10/05/2020 Age-related osteoporosis without current pathol*09/10/2021 06/13/2023 Closed fracture of distal radius and ulna [S52.*03/18/2022 Cyst of kidney, acquired [N28.1] 02/18/2022 Greater trochanteric bursitis [M70.60] 03/18/2022 09/16/2022 Normal pelvic exam [Z01.419] 01/24/2017 09/16/2022 Mild intermittent asthma without complication [*03/22/2022 Dizziness [R42] 11/17/2022 Epistaxis [R04.0] 11/17/2022 06/13/2023 Encounter Status:Closed by KRISTIAN MIMS on 07/31/23 Normal [facility] CNPNon 07-18-2023 CNPN Telephone (RGWSTR) VANDANA MITCHELL ([id number]) 1950 F NFR Date Time Provider Department 07/18/23 SHANE SALAMANCA V DO RGWSTR During your visit today, we recorded the following information about you: Belkys Bond 07/18/2023 2:38 PM Signed Patient is requesting 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 03/07/23 Gwen Deras PSS 07/18/2023 3:51 PM Signed CD READY FOR [employer] AT [facility] Pt is aware Allergies As of Date: 07/18/2023 Noted Allergy Reaction AMOXICILLIN 04/22/2005 2 - Rash ASA (SALICYLATES) 04/22/2005 7 - Swelling Comments: lip swelling DICLOFENAC 02/21/2006 12 - Shortness of Breath IODINE 04/22/2005 12 - Shortness of Breath MONISTAT 1 (TIOCONAZOLE) 04/22/2005 5 - Intolerance Comments: Burning Date Reviewed: 07/04/2023 Reviewed by: Kalyan Serna MA - Fully Assessed Prescriptions as of 07/28/2023 - dilTIAZem CD (CARDIZEM CD) 180 mg 24 hr capsule Take 1 capsule by mouth once daily. - mometasone-formoterol (DULERA) 100-5 mcg/actuation inhaler Inhale 2 Puffs as instructed two times a day. - budesonide-formoterol (SYMBICORT) 160-4.5 mcg/actuation inhaler Inhale 2 Puffs as instructed twice daily. - calcium citrate (CITRACAL ORAL) Take 2 capsules by mouth two times a day. - clindamycin (CLEOCIN T) 1 % gel Apply to affected area once daily. - denosumab (PROLIA) 60 mg/mL Inject subcutaneously once every 6 months. - albuterol HFA (VENTOLIN HFA) 90 mcg/actuation inhaler Inhale 2 Puffs as instructed every 4 hours as needed for wheezing/shortness of breath. - melatonin 3 mg tablet Take 3 mg by mouth. qhs - acetaminophen 325 mg cap Take by mouth as needed. - MULTIVITAMIN ORAL Take 1 tablet by mouth once daily. Problem List As Of Date 07/18/2023 Noted Resolved GENERAL OSTEOARTHROSIS [M15.9] 11/18/2005 07/03/2015 Essential hypertension [I10] 11/18/2005 Non-rheumatic mitral regurgitation [I34.0] Unspecified asthma [J45.909] 04/11/2011 Disorder of bone and cartilage, unspecified [M8* 12/04/2019 Cervicalgia [M54.2] 08/28/2007 08/09/2018 Idiopathic scoliosis and kyphoscoliosis [M41.20]01/09/2011 Family history of colon cancer [Z80.0] 07/06/2011 Bursitis of right shoulder [M75.51] 10/10/2011 08/09/2018 Osteoporosis [M81.0] 10/10/2011 Psychophysiological insomnia [F51.04] 10/26/2011 Multinodular thyroid [E04.2] 10/27/2011 Other pulmonary embolism and infarction (HCC) [*07/25/2012 07/21/2016 Complete uterovaginal prolapse [N81.3] 01/09/2015 03/30/2016 Pelvic muscle wasting [N81.84] 01/09/2015 08/09/2018 Postmenopausal atrophic vaginitis [N95.2] 01/09/2015 Muscle weakness [M62.81] 02/16/2015 07/21/2016 Restrictive 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 *07/31/2015 Incomplete uterovaginal prolapse [N81.2] 04/05/2016 Monoclonal gammopathy [D47.2] 03/30/2017 Hypercalcemia [E83.52] 08/09/2018 Mitral valve prolapse [I34.1] 08/09/2018 09/16/2022 Bilateral carotid artery stenosis [I65.23] 08/09/2018 Obstructive cardiomyopathy (HCC) [I42.8] 01/28/2019 Precordial pain [R07.2] 01/28/2019 09/16/2022 Dyspnea on exertion [R06.09] 05/31/2019 09/16/2022 SVT (supraventricular tachycardia) (HCC) [I47.1*01/14/2020 Screening for colon cancer [Z12.11] 09/24/2020 09/24/2020 Murmur [R01.1] 10/05/2020 09/16/2021 HOCM (hypertrophic obstructive cardiomyopathy) *10/05/2020 Age-related osteoporosis without current pathol*09/10/2021 06/13/2023 Closed fracture of distal radius and ulna [S52.*03/18/2022 Cyst of kidney, acquired [N28.1] 02/18/2022 Greater trochanteric bursitis [M70.60] 03/18/2022 09/16/2022 Normal pelvic exam [Z01.419] 01/24/2017 09/16/2022 Mild intermittent asthma without complication [*03/22/2022 Dizziness [R42] 11/17/2022 Epistaxis [R04.0] 11/17/2022 06/13/2023 Encounter Status:Closed by BELKYS BOND on 07/28/23 Normal [facility] CNOVon 07-10-2023 CNOV Office Visit (CARDWS ) VANDANA MITCHELL ([id number]) 1950 F NFR Date Time Provider Department 07/10/23 2:40 PM ECHOCARDIOGRAM WSTR CARDWS During your visit today, we recorded the following information about you: Luis M Hameed RN 07/11/2023 8:05 AM Signed Vandana Mitchell is here for an appointment today with Echocardiogram and experienced a fall during her clinical visit. The patient was found on the floor. Location of fall: echo room Brief Factual Description: Patient had an unwitnessed fall after tripping on the treadmill in the echo room. Patient states that she hit her head and skin tear noted to left elbow. Contributing Factors: none reported Did patient hit head or neck? Yes Is the patient having any pain? Yes: Location head Pain Scale: 2 on a scale from 0-10 Is patient alert? YES Injury: Skin Tear to left elbow INTERVENTIONS: Immediate Actions Taken: Ice applied to head Dressings applied to skin tear Patient refused transport to ED for further evaluation. Additional Prevention Measures:offered assistance with transfers/clothing Luis M Hameed RN Referring Provider: CLARY NOLASCO [[id number]] Allergies As of Date: 07/10/2023 Noted Allergy Reaction AMOXICILLIN 04/22/2005 2 - Rash ASA (SALICYLATES) 04/22/2005 7 - Swelling Comments: lip swelling DICLOFENAC 02/21/2006 12 - Shortness of Breath IODINE 04/22/2005 12 - Shortness of Breath MONISTAT 1 (TIOCONAZOLE) 04/22/2005 5 - Intolerance Comments: Burning Date Reviewed: 07/04/2023 Reviewed by: Kalyan Serna MA - Fully Assessed Visit Diagnosis:HOCM (hypertrophic obstructive cardiomyopathy) ([facility]) [I42.1] Order(s):ECHO [[id number]] Order #: [id number]. #:[id number] : 1 LVEF TRANSTHORACIC ECHO [[id number]] Order #: [id number]. #:[id number] Qty: 1 Prescriptions as of 07/11/2023 - dilTIAZem CD (CARDIZEM CD) 180 mg 24 hr capsule Take 1 capsule by mouth once daily. - mometasone-formoterol (DULERA) 100-5 mcg/actuation inhaler Inhale 2 Puffs as instructed two times a day. - budesonide-formoterol (SYMBICORT) 160-4.5 mcg/actuation inhaler Inhale 2 Puffs as instructed twice daily. - calcium citrate (CITRACAL ORAL) Take 2 capsules by mouth two times a day. - clindamycin (CLEOCIN T) 1 % gel Apply to affected area once daily. - denosumab (PROLIA) 60 mg/mL Inject subcutaneously once every 6 months. - albuterol HFA (VENTOLIN HFA) 90 mcg/actuation inhaler Inhale 2 Puffs as instructed every 4 hours as needed for wheezing/shortness of breath. - melatonin 3 mg tablet Take 3 mg by mouth. qhs - acetaminophen 325 mg cap Take by mouth as needed. - MULTIVITAMIN ORAL Take 1 tablet by mouth once daily. Problem List As Of Date 07/10/2023 Noted Resolved GENERAL OSTEOARTHROSIS [M15.9] 11/18/2005 07/03/2015 Essential hypertension [I10] 11/18/2005 Non-rheumatic mitral regurgitation [I34.0] Unspecified asthma [J45.909] 04/11/2011 Disorder of bone and cartilage, unspecified [M8* 12/04/2019 Cervicalgia [M54.2] 08/28/2007 08/09/2018 Idiopathic scoliosis and kyphoscoliosis [M41.20]01/09/2011 Family history of colon cancer [Z80.0] 07/06/2011 Bursitis of right shoulder [M75.51] 10/10/2011 08/09/2018 Osteoporosis [M81.0] 10/10/2011 Psychophysiological insomnia [F51.04] 10/26/2011 Multinodular thyroid [E04.2] 10/27/2011 Other pulmonary embolism and infarction (HCC) [*07/25/2012 07/21/2016 Complete uterovaginal prolapse [N81.3] 01/09/2015 03/30/2016 Pelvic muscle wasting [N81.84] 01/09/2015 08/09/2018 Postmenopausal atrophic vaginitis [N95.2] 01/09/2015 Muscle weakness [M62.81] 02/16/2015 07/21/2016 Restrictive 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 *07/31/2015 Incomplete uterovaginal prolapse [N81.2] 04/05/2016 Monoclonal gammopathy [D47.2] 03/30/2017 Hypercalcemia [E83.52] 08/09/2018 Mitral valve prolapse [I34.1] 08/09/2018 09/16/2022 Bilateral carotid artery stenosis [I65.23] 08/09/2018 Obstructive cardiomyopathy (HCC) [I42.8] 01/28/2019 Precordial pain [R07.2] 01/28/2019 09/16/2022 Dyspnea on exertion [R06.09] 05/31/2019 09/16/2022 SVT (supraventricular tachycardia) (HCC) [I47.1*01/14/2020 Screening for colon cancer [Z12.11] 09/24/2020 09/24/2020 Murmur [R01.1] 10/05/2020 09/16/2021 HOCM (hypertrophic obstructive cardiomyopathy) *10/05/2020 Age-related osteoporosis without current pathol*09/10/2021 06/13/2023 Closed fracture of distal radius and ulna [S52.*03/18/2022 Cyst of kidney, acquired [N28.1] 02/18/2022 Greater trochanteric bursitis [M70.60] 03/18/2022 09/16/2022 Normal pelvic exam [Z01.419] 01/24/2017 09/16/2022 Mild intermittent asthma without complication [*03/22/2022 Dizziness [R42] 11/17/2022 Epistaxis [R04.0] 11/17/2022 06/13/2023 Encounter Status:Closed by LUIS M HAMEED on 07/11/23 Normal [facility] ECHOon 07-10-2023 Echocardiography Echocardiography Report: Transthoracic Echo [facility] Date of service: 07/10/2023 2:58:19 PM ENGINEERING Ordering physician: CLARY NOLASCO Indication: HOCM Technologist: Mary Hightower [facility] Interpreting physician: Aura Garces MD PATIENT: Name: MRS. VANDANA MITCHELL : 1950 Age: 73 years Gender: F History of hypertension. Primary rhythm: sinus. Height: 158.20 cm BSA: 1.52 m Weight: 52.71 kg BMI: 21.1 kg/m Heart rate 85 bpm Blood pressure 178/84 mmHg Color Doppler was utilized to interrogate the cardiac valves assessed and spectral Doppler was utilized to determine the flow velocities and pressure gradients reported in this exam. Myocardial strain analysis was performed in this exam to aid in the assessment of cardiac function. MEASUREMENTS: Value Indexed Normal Max aortic dimension 2.8 cm Ao < 3.8 Left atrial volume 32 ml (biplane A-L) 21 ml/m Cassandra <= 34 LV ID (diastole) 2.8 cm (2D) 1.82 cm/m LV ID (systole) 2.0 cm (2D) 1.32 cm/m IVS, leaflet tips 1.0 cm (2D) Posterior wall thickness 1.1 cm (2D) Left ventricular mass 80 g (2D) 52 g/m Global peak long strain -20.4 % LV stroke volume 44 ml (2D biplane) LV end diastolic volume 61 ml (2D biplane) 40.0 ml/m 29<=EDVi<62 LV end systolic volume 17 ml (2D biplane) 11.1 ml/m Ejection Fraction 72 % (2D biplane) EF > 54 FINDINGS: LEFT VENTRICLE The left ventricle is normal in size. Left ventricular systolic function is normal. Global LV myocardial strain is normal. Indeterminate left ventricular diastolic dysfunction. Wall Motion: All scored segments are normal. RIGHT VENTRICLE The right ventricle is normal in size. Right ventricular systolic function is normal. RV systolic tissue Doppler velocity is 13.0 cm/s. Estimated right ventricular systolic pressure is likely underestimated due to a weak or incomplete tricuspid regurgitation signal and is, at least, 32 mmHg consistent with normal pulmonary artery pressures. Estimated right atrial pressure is 3 mmHg (although IVC not seen). LEFT ATRIUM The left atrial cavity is normal in size. RIGHT ATRIUM The right atrial cavity is normal in size. MITRAL VALVE There is trace (trace - 1+) mitral valve regurgitation. There is mild thickening. TRICUSPID VALVE The tricuspid valve leaflets are structurally normal. There is trace tricuspid valve regurgitation. AORTIC VALVE The aortic valve cusps are structurally normal. There is no aortic valve regurgitation. Tricuspid aortic valve. The peak gradient is 7 mmHg (peak velocity = 132.4 cm/s). PULMONIC VALVE The pulmonic valve cusps are structurally normal. There is trace (trace - 1+) pulmonic valve regurgitation. AORTA The visualized aorta is normal in size. Measurements - Mid ascending aorta 2.8 cm. PERICARDIUM There is no pericardial effusion. There is an epicardial fat pad. CONCLUSIONS: - Exam indication: HOCM - The left ventricle is normal in size. Left ventricular systolic function is normal. EF = 72 5% (2D biplane) Indeterminate left ventricular diastolic dysfunction. - The right ventricle is normal in size. Right ventricular systolic function is normal. - Mild MELISSA at rest with an LVOT gradient of 5 mmHg. No significant change with valsalva. - Exam was compared with the prior CC echocardiographic exam performed on 10/15/2021, no significant change. * * * Final * * * [employer] [facility] : [id number] SUID Normal [facility] LVEF TRANSTHORACIC ECHOon LV Ejection Fraction 72 % [facility] CNPNon 07-05-2023 CNPN Telephone (PULWS) VANDANA MITCHELL ([id number]) 1950 F NFR Date Time Provider Department 07/05/23 NAIN CAMPBELL PULMayWS During your visit today, we recorded the following information about you: Allie Bucio LPN 07/05/2023 10:24 AM Signed Symbicort (four puffs per day) not covered and will be starting Dulera in the next three days. The Dulera is only a 15 day supply, 2 puffs, twice daily, with current dose but if higher dose it is a 60 day supply 9 one puff twice daily) according to pharmacist. Patient is also concerned about osteoporosis which she read worsens, has hypertension and is concerned of contraindications. Did discuss importance of being able to breath and all medications do list contraindications which she verbalizes understanding but wanted to make sure Dr. Campbell is aware. Please review and advise. DIANA Martines Kathleen, LPN 07/05/2023 2:54 PM Signed Spoke with pharmacist at [facility], their supplier has not had the 13g size inhaler available for order, so she was dispensed an 8.8g size for a 15 day supply. They will fill the 13g when it becomes available. Patient notified. Addressed concerns re: osteoporosis/hyperglyce jacobo. Discussed risk vs. benefit. No further concerns at this time. Kristian Mims LPN Allergies As of Date: 07/05/2023 Noted Allergy Reaction AMOXICILLIN 04/22/2005 2 - Rash ASA (SALICYLATES) 04/22/2005 7 - Swelling Comments: lip swelling DICLOFENAC 02/21/2006 12 - Shortness of Breath IODINE 04/22/2005 12 - Shortness of Breath MONISTAT 1 (TIOCONAZOLE) 04/22/2005 5 - Intolerance Comments: Burning Date Reviewed: 07/04/2023 Reviewed by: Kalyan Serna MA - Fully Assessed Reason for Visit: Medication Problem [65] Patient Question [3367] Prescriptions as of 07/05/2023 - dilTIAZem CD (CARDIZEM CD) 180 mg 24 hr capsule Take 1 capsule by mouth once daily. - mometasone-formoterol (DULERA) 100-5 mcg/actuation inhaler Inhale 2 Puffs as instructed two times a day. - budesonide-formoterol (SYMBICORT) 160-4.5 mcg/actuation inhaler Inhale 2 Puffs as instructed twice daily. - calcium citrate (CITRACAL ORAL) Take 2 capsules by mouth two times a day. - clindamycin (CLEOCIN T) 1 % gel Apply to affected area once daily. - denosumab (PROLIA) 60 mg/mL Inject subcutaneously once every 6 months. - albuterol HFA (VENTOLIN HFA) 90 mcg/actuation inhaler Inhale 2 Puffs as instructed every 4 hours as needed for wheezing/shortness of breath. - melatonin 3 mg tablet Take 3 mg by mouth. qhs - acetaminophen 325 mg cap Take by mouth as needed. - MULTIVITAMIN ORAL Take 1 tablet by mouth once daily. 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]01/09/2011 Family history of colon cancer [Z80.0] 07/06/2011 Bursitis of right shoulder [M75.51] 10/10/2011 08/09/2018 Osteoporosis [M81.0] 10/10/2011 Psychophysiological insomnia [F51.04] 10/26/2011 Multinodular thyroid [E04.2] 10/27/2011 Other pulmonary embolism and infarction (HCC) [*07/25/2012 07/21/2016 Complete uterovaginal prolapse [N81.3] 01/09/2015 03/30/2016 Pelvic muscle wasting [N81.84] 01/09/2015 08/09/2018 Postmenopausal atrophic vaginitis [N95.2] 01/09/2015 Muscle weakness [M62.81] 02/16/2015 07/21/2016 Restrictive 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 *07/31/2015 Incomplete uterovaginal prolapse [N81.2] 04/05/2016 Monoclonal gammopathy [D47.2] 03/30/2017 Hypercalcemia [E83.52] 08/09/2018 Mitral valve prolapse [I34.1] 08/09/2018 09/16/2022 Bilateral carotid artery stenosis [I65.23] 08/09/2018 Obstructive cardiomyopathy (HCC) [I42.8] 01/28/2019 Precordial pain [R07.2] 01/28/2019 09/16/2022 Dyspnea on exertion [R06.09] 05/31/2019 09/16/2022 SVT (supraventricular tachycardia) (HCC) [I47.1*01/14/2020 Screening for colon cancer [Z12.11] 09/24/2020 09/24/2020 Murmur [R01.1] 10/05/2020 09/16/2021 HOCM (hypertrophic obstructive cardiomyopathy) *10/05/2020 Age-related osteoporosis without current pathol*09/10/2021 06/13/2023 Closed fracture of distal radius and ulna [S52.*03/18/2022 Cyst of kidney, acquired [N28.1] 02/18/2022 Greater trochanteric bursitis [M70.60] 03/18/2022 09/16/2022 Normal pelvic exam [Z01.419] 01/24/2017 09/16/2022 Mild intermittent asthma without complication [*03/22/2022 Dizziness [R42] 11/17/2022 Epistaxis [R04.0] 11/17/2022 06/13/2023 Encounter Status:Closed by KRISTIAN MIMS on 07/05/23 Normal [facility] CNOVSPon 07-04-2023 CNOVSP Visit (SP) Office (HEMRICARDO) VANDANA MITCHELL ([id number]) 1950 F NFR Date Time Provider Department 07/04/23 10:10 AM DANNY ONEILL During your visit today, we recorded the following information about you: Temperature Pulse Blood pressure Weight 98.9 degrees 83/minute 163/84 51.9 kg Danny Oneill DO 07/04/2023 10:34 AM Signed Diagnosis: 1) IgG lambda MGUS. HPI: Patient is a 73-year-old female who has past medical history significant for osteoporosis, possible renal lithiasis, HOCM and HTN. Over the 3 years prior to referral here, she had rather significant blistering and erythema with any type of insect bite. She also had two localized rashes which had cleared. Was therefore undergoing dermatologic evaluation for these issues and on screening blood work was found to have monoclonal gammopathy with an M spike concentration of 0.42 g/dL. Immunofixation revealed IgG lambda monoclonal protein. Urine electrophoresis was negative. CBC was unremarkable. The white count was 6850 with a normal differential. Hemoglobin 14 g/dL. Platelet count 291,000. She had right shoulder and b/l hip pain that had been worked up. She was undergoing physical therapy for her shoulder. Plain films showed degenerative changes at the AC joint. No evidence of lytic lesions in the visualized bone structure in that area. She was also under the care of orthopedic surgery center for the hip pain. She has a history of scoliosis and had Lozada rods placed in 1963. Since then, she's been told one of the pins has worked loose. She also had bone graft donor site from the left pelvis for one of the vertebral bones. Bone survey on 03/30/2017 revealed no evidence of lesion or other pathologic bone lesion. On q 6 month Prolia. Bone density 03/2023: LEFT HIP: The bone mineral density of the total region of the hip is 0.538 grams per square centimeter which yields a T-score of -3.3. There has been a 9.2% statistically significant interval decrease in bone mineral density. LEFT FEMORAL NECK: The bone mineral density of the femoral neck is 0.485 grams per square centimeter which yields a T-score of -3.3. There has been an 8.6% statistically significant interval decrease in bone mineral density. Presents for ongoing hematologic management. Interim history: Still has occasional numbness under left eye. No other symptoms of peripheral neuropathy. Occasional shoulder pain (both, but not at same time). Pain left hip (buttocks) when lying for bone survey self resolved. PMH, medications and allergies personally reviewed by me today. Any changes documented in appropriate section. ROS: Constitutional: No recent or recurrent episodes of fever. No drenching night sweats. Normal appetite. Normal energy. Neuro: Denies LARA, vertigo, dizziness and imbalance. HEENT: No recent change in voice, vision or hearing. Resp: Denies cough, wheeze and hemoptysis. Denies shortness of breath at rest. Has chronic dyspnea with exertion secondary to restrictive physiology from scoliosis. CVS: Denies exertional chest pain, PND, orthopnea and LE edema. GI: Denies dysgeusia. Denies symptoms of stomatitis. Denies dysphagia and odynophagia. Denies reflux, n/v, change in bowel habits and abdominal pain. : Denies dysuria or gross hematuria. No symptoms of bladder outlet obstruction. Endo: Denies hot flashes. Denies polyuria and polydipsia. Denies heat and cold intolerance. Musculoskeletal: See above. Derm: Denies rash. Denies jaundice and diffuse pruritis. Heme: Denies unusual bleeding and unexplained bruising. Psych: Normal mood. PHYSICAL EXAM: Vitals: Blood pressure 163/84, pulse 83, temperature 37.2 ?C (98.9 ?F), weight 51.9 kg (114 lb 8 oz), SpO2 95%. Well-appearing and in no acute distress. EYES: Sclerae are anicteric bilaterally. NECK: Supple. LYMPHATIC: There is no palpable cervical, supraclavicular adenopathy. RESPIRATORY: Inspiratory breath sounds are of normal left and diminished on right. CARDIOVASCULAR: Rhythm is regular. ABDOMEN: The abdomen is nondistended. No organomegaly. No tenderness. Extremities: No swelling or edema. SKIN: No jaundice or rash. No petechiae. 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 No focal motor weakness. MUSCULOSKELETAL: Kyphoscoliosis. LABS: Component Latest Ref Rng AND Units 06/14/2023 WBC 3.70 - 11.00 k/uL 7.37 RBC 3.90 - 5.20 m/uL 4.36 Hemoglobin 11.5 - 15.5 g/dL 11.8 Hematocrit 36.0 - 46.0 % 35.9 (L) MCV 80.0 - 100.0 fL 82.3 MCH 26.0 - 34.0 pg 27.1 MCHC 30.5 - 36.0 g/dL 32.9 RDW-CV 11.5 - 15.0 % 13.8 Platelet Count 150 - 400 k/uL 254 MPV 9.0 - 12.7 fL 10.4 Neut% % 76.0 Abs Neut (ANC) 1.45 - 7.50 k/uL 5.60 Lymph% % 14.2 Abs Lymph 1.00 - 4.00 k/uL 1.05 [place]% % 7.3 Abs [place] <0.87 k/uL 0.54 Eosin% % 0.8 Abs Eosin <0.46 k/uL 0.06 Baso% % 1.4 Abs Baso <0.11 k/ (more content not included)... Normal [facility] BONE MARROW ANALYSISon 06-14 CASE REPORT Normal [facility] Comment on above: Order Comment: Negin parson Type: BONE MARROW SPECIMEN Ordering Facility: [facility] Address: [address] [place] [address] Result Comment: Bone Marrow Pathology Report Case: [id number] Authorizing Provider: Danny Oneill DO Collected: 06/14/2023 11:03 AM Ordering Location: [facility] Radiology Received: 06/14/2023 11:43 AM Pathologist: Dakotah Lunsford MD Specimens: A) - BONE MARROW ASPIRATE RIGHT POSTERIOR ILIAC CREST B) - BONE MARROW BIOPSY RIGHT POSTERIOR ILIAC CREST C) - BONE MARROW CLOT RIGHT POSTERIOR ILIAC CREST D) - Peripheral blood smear Performed By: #### B MRT #### [facility] CLIA [id number] [address] [place] [address] [place] FINAL DIAGNOSIS Normal [facility] Comment on above: Order Comment: Negin parson Type: BONE MARROW SPECIMEN Ordering Facility: [facility] Address: [address] [place] [address] Result Comment: A-C. Bone marrow, aspirate smear and core biopsy, with clot section: - Normocellular marrow (30%) with trilineage hematopoiesis and no diagnostic features of involvement by plasma cell neoplasm, see comment. D. Peripheral blood smear: - No cytologic abnormalities. Performed By: #### B MRT #### [facility] CLIA [id number] [address] [place] [address] [place] GROSS DESCRIPTION Normal [facility] Comment on above: Order Comment: Negin parson Type: BONE MARROW SPECIMEN Ordering Facility: [facility] Address: [address] [place] [address] Result Comment: A. B ONE MARROW ASPIRATE RIGHT POSTERIOR ILIAC CREST Received are air-dried bone marrow aspirate smears. Submitted for light microscopy. B. BONE MARROW BIOPSY RIGHT POSTERIOR ILIAC CREST Received in formalin are three segments of cylindrical tissue aggregating to 2.0 x 0.3 x 0.3 cm, moeller-brown and of a firm consistency. Totally submitted in one cassette after decalcification. C. BONE MARROW CLOT RIGHT POSTERIOR ILIAC CREST Received in formalin is one segment of red, hemorrhagic material measuring 1.9 x 1.1 x 0.3 cm. Totally submitted in one cassette. D. Peripheral blood smear Received is a peripheral blood smear. Submitted for light microscopy. Gross examination performed at [facility], [facility] [place] [address] FFS 06/14/2023 6:58 PM Performed By: #### B MRT #### [facility] CLIA [id number] [address] [place] [id number] [place] MICROSCOPIC DESCRIPTION Normal [facility] Comment on above: Order Comment: Speci men Type: BONE MARROW SPECIMEN Ordering Facility: [facility] Address: [address] [place] [address] Result Comment: RENETTA PHERAL BLOOD: CBC (06/14/2023 12:21 PM) Diff: Auto WBC 7.37 k/uL Neutrophils % 76 Hemoglobin 11.8 g/dL Lymphocytes % 14.2 MCV 82.3 fL Monocytes % 7.3 RDW-CV 13.8 % Eosinophils % 0.8 Platelet Count 254 k/uL Basophils % 1.4 Immature Granulocytes % 0.3 Other: N/A Morphology/Interpretation: No cytologic abnormalities. BONE MARROW ASPIRATE: Result Normal Range 1 % Blasts 0-2 0 % Promyelocytes 1-5 56 % Myelos/Metas/Bands/Segs 32-72 4 % Eosinophils 1-6 0 % Basophils 0-1 1 % Monocytes 0-4 21 % Erythroid precursors 13-37 15 % Lymphocytes 7-23 2 % Plasma cells 0-2 Myeloid/Erythro (1.5-4): 3.0 Cells counted: 300. Iron stain result: Increased storage iron; no ring sideroblasts. Specimen Quality: Spicular, cellular, adequate. Megakaryocytes: Present and normal. Erythropoiesis: Progressive maturation. Granulopoiesis: Progressive maturation. Other: No increase or atypia evident in plasma cells. BONE MARROW BIOPSY: Adequacy: Suboptimal due to fragmentation. Cellularity: Apparently normal (30%). ME ratio: Normal. Hematopoiesis: Trilineage maturation. Megakaryocytes: Present. Megakaryocyte morphology: Normal. Lymphoid infiltrate: None. Bone trabeculae: Normal. Other: Immunohistochemistry performed to evaluate plasma cells using antibodies to CD138 and kappa and lambda immunoglobulin light chains shows that CD138 positive plasma cells are not overall increased (<5%), and there is polytypic kappa and lambda expression. Congo red stain is negative for amyloid deposition. CLOT SECTION: Marrow particles: Many. Morphology: Similar to biopsy. A small benign appearing lymphoid aggregate is present. Other: N/A. ANCILLARY TESTS: Flow cytometry: Performed. Cytogenetics: Pending. FISH: Myeloma FISH. Molecular: Buffy coat stored. Performed By: #### B MRT #### [facility] CLIA [id number] [address] [place] [address] [place] BONE MARROW CHROMOSOME ANALo n 06-14-2023 CHROMOSOME BM Normal [facility] Comment on above: Order Comment: Order ing Facility: [facility] Address: [address] [place] [address] Result Comment: Thao duartejinny Accession Number: [id number] Doctor: Danny Oneill Pathologist: [facility] No: [id number] Clinical diagnosis: Monoclonal gammopathy Specimen Type: Bone marrow Received Date: 06/14/2023 Number of cells counted: 20 Number of cells analyzed: 20 Number of cells karyotyped: 20 Banding resolution: 400 Banding method: G-banding DIAGNOSIS: 46,XX[20] INTERPRETATION: Normal, female karyotype COMMENT: Ten metaphase cells were analyzed from the culture stimulated with ODN and ten metaphase cells were analyzed from the 24 hour unstimulated culture. Twenty cells analyzed showed a 46,XX karyotype. There was no significant numerical chromosome abnormality and no structural change detected within the limits of resolution. Clinical and pathologic correlation is recommended. As reviewed by Eleanor Brunner, PhD, FACMG Performed by [facility] Pathology and Laboratory Medicine [place] Division of Molecular Pathology Cytogenetics Lab, [id number] [address] [facility] [place] [address] Toll free: Performed By: #### C HRBM #### [facility] CLIA [id number] [facility] [place] CBC W Auto Differential pane l (Bld)on 06-14-2023 Basophils (Bld) [#/Vol] 0.10 10*3/uL Normal <0.11 [facility] Comment on above: Order Comment: Speci men Type: BLOOD SPECIMEN Ordering Facility: [facility] Address: [address] [place] [address] Performed By: #### 5 7021-8 #### [facility] CLIA [id number] [address] [place] Basophils/100 WBC (Bld) 1.4 % Normal [facility] Comment on above: Order Comment: Speci men Type: BLOOD SPECIMEN Ordering Facility: [facility] Address: [address] [place] [address] Performed By: #### 5 7021-8 #### [facility] CLIA [id number] [address] Differential cell count method Nom (Bld) Auto Normal [facility] Comment on above: Order Comment: Speci men Type: BLOOD SPECIMEN Ordering Facility: [facility] Address: [address] [place] [address] Performed By: #### 5 7021-8 #### [facility] CLIA [id number] [address] [place] [address] [place] Eosinophils (Bld) [#/Vol] 0.06 10*3/uL Normal <0.46 [facility] Comment on above: Order Comment: Speci men Type: BLOOD SPECIMEN Ordering Facility: [facility] Address: [address] [place] [address] Performed By: #### 5 7021-8 #### [facility] CLIA [id number] [address] Eosinophils/100 WBC (Bld) 0.8 % Normal [facility] Comment on above: Order Comment: Speci men Type: BLOOD SPECIMEN Ordering Facility: [facility] Address: [address] [place] [address] Performed By: #### 5 7021-8 #### [facility] CLIA [id number] [address] [place] Erythrocyte distribution width (RBC) [Ratio] 13.8 % Normal 11.5-15.0 [facility] Comment on above: Order Comment: Speci men Type: BLOOD SPECIMEN Ordering Facility: [facility] Address: [address] [place] [address] Performed By: #### 5 7021-8 #### [facility] CLIA [id number] [address] [place] Hematocrit (Bld) [Volume fraction] 35.9 % Low 36.0-46.0 [facility] Comment on above: Order Comment: Speci men Type: BLOOD SPECIMEN Ordering Facility: [facility] Address: [address] [place] [address] Performed By: #### 5 7021-8 #### [facility] CLIA [id number] [address] [place] Hemoglobin (Bld) [Mass/Vol] 11.8 g/dL Normal 11.5-15.5 [facility] Comment on above: Order Comment: Speci men Type: BLOOD SPECIMEN Ordering Facility: [facility] Address: [address] [place] [address] Performed By: #### 5 7021-8 #### [facility] CLIA [id number] [address] [place] Immature granulocytes (Bld) [#/Vol] 10*3/uL Normal <0.10 [facility] Comment on above: Order Comment: Speci men Type: BLOOD SPECIMEN Ordering Facility: [facility] Address: [address] [place] [address] Performed By: #### 5 7021-8 #### [facility] CLIA [id number] [address] [place] Immature granulocytes/100 WBC (Bld) 0.3 % Normal [facility] Comment on above: Order Comment: Speci men Type: BLOOD SPECIMEN Ordering Facility: [facility] Address: [address] [place] [address] Performed By: #### 5 7021-8 #### [facility] CLIA [id number] [address] [place] [address] [place] Lymphocytes (Bld) [#/Vol] 1.05 10*3/uL Normal 1.00-4.00 [facility] Comment on above: Order Comment: Speci men Type: BLOOD SPECIMEN Ordering Facility: [facility] Address: [address] [place] [address] Performed By: #### 5 7021-8 #### [facility] CLIA [id number] [address] Lymphocytes/100 WBC (Bld) 14.2 % Normal [facility] Comment on above: Order Comment: Speci men Type: BLOOD SPECIMEN Ordering Facility: [facility] Address: [address] [place] [address] Performed By: #### 5 7021-8 #### [facility] CLIA [id number] [address] MCH (RBC) [Entitic mass] 27.1 pg Normal 26.0-34.0 [facility] Comment on above: Order Comment: Speci men Type: BLOOD SPECIMEN Ordering Facility: [facility] Address: [address] [place] [address] Performed By: #### 5 7021-8 #### [facility] CLIA [id number] [address] STATES OF [facility] MCHC (RBC) [Mass/Vol] 32.9 g/dL Normal 30.5-36.0 [facility] Comment on above: Order Comment: Speci men Type: BLOOD SPECIMEN Ordering Facility: [facility] Address: [address] [place] [address] Performed By: #### 5 7021-8 #### [facility] CLIA [id number] [address] MCV (RBC) [Entitic vol] 82.3 fL Normal 80.0-100.0 [facility] Comment on above: Order Comment: Speci men Type: BLOOD SPECIMEN Ordering Facility: [facility] Address: [address] [place] [address] Performed By: #### 5 7021-8 #### [facility] CLIA [id number] [address] Monocytes (Bld) [#/Vol] 0.54 10*3/uL Normal <0.87 [facility] Comment on above: Order Comment: Speci men Type: BLOOD SPECIMEN Ordering Facility: [facility] Address: [address] [place] [address] Performed By: #### 5 7021-8 #### [facility] CLIA [id number] [address] [place] Monocytes/100 WBC (Bld) 7.3 % Normal [facility] Comment on above: Order Comment: Speci men Type: BLOOD SPECIMEN Ordering Facility: [facility] Address: [address] [place] [address] Performed By: #### 5 7021-8 #### [facility] CLIA [id number] [address] [place] [address] [place] Neutrophils (Bld) [#/Vol] 5.60 10*3/uL Normal 1.45-7.50 [facility] Comment on above: Order Comment: Speci men Type: BLOOD SPECIMEN Ordering Facility: [facility] Address: [address] [place] [address] Performed By: #### 5 7021-8 #### [facility] CLIA [id number] [address] [place] Neutrophils/100 WBC (Bld) 76.0 % Normal [facility] Comment on above: Order Comment: Speci men Type: BLOOD SPECIMEN Ordering Facility: [facility] Address: [address] [place] [address] Performed By: #### 5 7021-8 #### [facility] CLIA [id number] [address] [place] [address] [place] Nucleated RBC (Bld) [#/Vol] 10*3/uL Normal <0.01 [facility] Comment on above: Order Comment: Speci men Type: BLOOD SPECIMEN Ordering Facility: [facility] Address: [address] [place] [address] Performed By: #### 5 7021-8 #### [facility] CLIA [id number] [address] [place] [address] [facility] [place] Nucleated RBC/100 WBC (Bld) [Ratio] 0.0 /100 WBC Normal [facility] Comment on above: Order Comment: Speci men Type: BLOOD SPECIMEN Ordering Facility: [facility] Address: [address] [place] [address] Performed By: #### 5 7021-8 #### [facility] CLIA [id number] [address] [place] Platelet mean volume (Bld) [Entitic vol] 10.4 fL Normal 9.0-12.7 [facility] Comment on above: Order Comment: Speci men Type: BLOOD SPECIMEN Ordering Facility: [facility] Address: [address] [place] [address] Performed By: #### 5 7021-8 #### [facility] CLIA [id number] [address] [place] Platelets (Bld) [#/Vol] 254 10*3/uL Normal 150-400 [facility] Comment on above: Order Comment: Speci men Type: BLOOD SPECIMEN Ordering Facility: [facility] Address: [address] [place] [address] Performed By: #### 5 7021-8 #### [facility] CLIA [id number] [address] [place] [address] [place] RBC (Bld) [#/Vol] 4.36 10*6/uL Normal 3.90-5.20 [facility] Comment on above: Order Comment: Speci men Type: BLOOD SPECIMEN Ordering Facility: [facility] Address: [address] [place] [address] Performed By: #### 5 7021-8 #### [facility] CLIA [id number] [address] [place] WBC (Bld) [#/Vol] 7.37 10*3/uL Normal 3.70-11.00 [facility] Comment on above: Order Comment: Speci men Type: BLOOD SPECIMEN Ordering Facility: [facility] Address: [address] [place] [address] Performed By: #### 5 7021-8 #### [facility] CLIA [id number] [address] [address] [place] CT BONE MARROW BX AND ASPIRA Perla 06-14-2023 CT BONE MARROW BX AND ASPIRATION * * *Final Report* * * DATE OF EXAM: Jun 14 2023 11:16AM [facility] 2218 - CT BONE MARROW BX AND ASPIRATION / PROCEDURE REASON: monoclonal gammopathy * * * * Physician Interpretation * * * * CT-GUIDED BONE MARROW ASPIRATION AND BIOPSY INDICATION: The patient is a 73 years old Female who presented with monoclonal gammopathy. CONSENT: The risks, benefits, treatment options, potential complications and personnel to be involved were discussed (including the risks of radiation exposure, contrast, devices that may be used and anesthesia administration) with the patient. All questions were answered and consent was obtained. The patient indicated willingness to proceed. GENERAL: a) Medication Reconciliation: The patient's medications and allergies were reviewed in the electronic medical record and reconciled to the proposed procedure/treatment. Pre-procedure Sign-in: Safety Checklist Performed Yes b) Positioning: The patient was placed prone on the table. c) The lower back was then sterilely prepped and draped. d) Time Out: A time out was performed immediately prior to procedure start with the nursing, anesthesia and interventional team, correctly identifying the patient name, date of , procedure, anatomy (including marking of site and side), patient position, procedure consent form, relevant diagnostic and radiology test results, antibiotic administration, safety precautions, and procedure-specific equipment needs. Time Out / Procedure Start Time: 1103 e) Anesthesia Type: moderate procedural sedation. Local anesthesia: 7 mL 1% lidocaine. f) Anesthesia was administered for a total of 15 minutes using 1 mg of Versed and 50 mcg of fentanyl. g) Patient monitoring: Performed by registered nurse. PROCEDURE: a) Procedure Details: Under CT guidance, biopsy/aspiration needle was advanced into the posterior aspect of the right iliac bone, through which bone marrow aspiration was performed and a single core biopsy sample was obtained via a single pass. Needle was removed. b) Devices used: Biopsy/Aspiration Needle: 11 Gauge On Control c) Estimated Blood Loss: Minimal d) Number and Type of Removed Specimens: 12 mL of bone marrow aspirate and 1 cm core bone biopsy specimen. CONTRAST CT imaging was performed without contrast. RADIATION DOSE a) Image guidance: CT guidance b) Radiation: CT was performed using an Dose-Length Product (DLP) of 97.5 mGy*cm CT Dose Reduction Employed: Automated exposure control(AEC) and iterative recon POST PROCEDURE: a) Hemostasis: Hemostasis was achieved using light manual compression. b) Sign-out: Communication Performed Yes c) Procedure End Time: 1111 d) Conclusion: The patient was transferred to the biopsy recovery room in stable condition. COMPLICATIONS: a) Significant Patient Complication: None b) Complications during the procedure: None RESULTS: Aspirate and core bone marrow specimens obtained. IMPRESSION: SUCCESSFUL CT-GUIDED BONE MARROW ASPIRATION AND BIOPSY. Information Assoc: ABHIJIT Transcribe Date/Time: Jun 14 2023 1:37P Dictated by : STACEY GIANG DO This examination was interpreted and the report reviewed and electronically signed by: STACEY GIANG DO on Jun 14 2023 1:38PM EST [id number] [facility] DNA EXTRACTION BONE MARROW ( BUFFY COAT)on 06-14-2023 DNA EXTRACTION BONE MARROW (BUFFY COAT) [facility] Comment on above: Order Comment: Negin parson Type: BONE MARROW SPECIMEN Ordering Facility: [facility] Address: [address] [place] [address] Result Comment: This specimen was received and successfully processed for future DNA purification should molecular testing be needed. Specimens will be available for 3 years from date of collection. To order testing on this specimen for [facility] patients, please place an [facility] order for DNA and RNA Clinical Testing ([id number]). To order testing for patients outside of the [facility] system, please request DNA and RNA for Clinical Testing, order code [id number]. If additional paperwork is required for testing, please send completed forms via secure email to [email or web address]. Performed By: #### N UCBUF #### [facility] [place] [id number] [address] [place] [address] [place] FISH FOR PLASMA CELL MYELOMA on 06-14-2023 FISH FOR PLASMA CELL MYELOMA Normal [facility] Comment on above: Order Comment: Negin parson Type: BONE MARROW SPECIMEN Ordering Facility: [facility] Address: [address] [place] [address] Result Comment: FISH for Plasma Cell Myeloma Laboratory Accession Number: [id number] Case: [id number] Sample type: Bone Marrow Aspirate Number of nuclei scored: 56-100 Received Date: 2023-06-15 13:45:29 RESULT: Result 1p32 (CDKN2C): Normal pattern 1q21 (CKS1B): Normal pattern +9 (CEP9): Normal pattern t(11;14)(q13;q32)(IGH/CCND1): Normal pattern 13q14 (RB1): Normal pattern 14q32 (IGH): Normal pattern +15 (CEP15): Normal pattern 17p13 (TP53): Normal pattern INTERPRETATION: The plasma cells analyzed displayed a normal signal pattern with all probes tested. This result does not rule out the possibility of a plasma cell neoplasm. Clinical and pathological correlation is recommended. REFERENCE RANGE: Reference ranges for the 13q14/17p13, 1p32/1q21 and CEP9/CEP15: Normal Range = 0-20% if at least 100 cells scored If fewer than 100 cells scored, then report if positive when >19 abnormal nuclei found If <20 plasma cells counted, report as insufficient Reference range for IGH: Normal Range = 0-15% if at least 100 cells scored If fewer than 100 cells scored, then report if positive when >14 abnormal nuclei found If <20 plasma cells counted, report as insufficient Reference range for t(11;14) Normal Range = 0-10% if at least 100 cells scored If fewer than 100 cells scored, then report if positive when >9 abnormal nuclei found If <20 plasma cells counted, report as insufficient REFERENCES: 1) Dony E et al. The International Consensus Classification of Mature Lymphoid Neoplasms: a report from the Clinical Advisory Committee. Blood. 2021 15;140(11):1818-6873 (PMID: 06787831) 2) Walker SK, Barry SV. The multiple myelomas - current concepts in cytogenetic classification and therapy. Huyen Rev Oncol. 2018;15(7):409-421 (PMID: 07425430) 3) Landon JR et al. Management of newly diagnosed symptomatic multiple myeloma: updated [place] Stratification of Myeloma and Risk- Adapted Therapy (mSMART) consensus guidelines 2013. [place] Clin Proc 2013 Sep;88(4):360-76 (PMID: 00256455) 4) Tammy NC et al. Consensus recommendations for risk stratification in multiple myeloma: report of the International Myeloma Workshop Consensus Panel 2. Blood 2010October 07;117(18):8121-8441 (PMID: 63426525) METHODOLOGY: Bone marrow plasma cells were isolated by CD138 purification ([employer], [employer], [place], [place], [place]). Interphase fluorescence in situ hybridization was performed using probes to the CDKN2C locus on chromosome 1p32 ([employer]oc[employer]), CKS1B locus on chromosome 1q21 ([employer]), chromosome 9 centromere ([employer]), t(11;14) (IGH/CCND1) dual color dual fusion probe ([employer]), 13q14 ([employer], [facility], [place]), IGH locus on chromosome 14q32 (LSI IGH Dual Color, [employer], [employer]), chromosome 15 centromere ([employer]), and the TP53 locus on chromosome 17p13 ([employer]). 100 plasma cells were scored whenever possible. DISCLAIMER: This test was developed and its performance characteristics determined by the [facility] [place] ([facility]). It has not been cleared or approved by the FDA. [facility] is regulated under CLIA as qualified to perform high- complexity testing. This test is used for clinical purposes. It should not be regarded as investigational or for research. Interpretation performed at [facility], [address] [place] [address]. CLIA Number: [id number] As reviewed by Jad Loomis MD, PhD Performed By: #### F SHPCM #### [facility] CLIA [id number] [address] [place] [address] [place] FLOW CYTOMETRY FOR LEUKEMIA/ LYMPHOMA (FCLL) PERFORMABLEon 06-14-2023 FLOW CYTOMETRY ORDER STATUS See Results in chart under F case ID Normal [facility] Comment on above: Order Comment: Speci men Type: BONE MARROW SPECIMEN Ordering Facility: [facility] Address: [address] [place] [address] Performed By: #### F CLLP, FCLLRFLX #### [facility] CLIA [id number] [address] [place] [address] OF [facility] FLOW CYTOMETRY FOR LEUKEMIA/ LYMPHOMA (FCLL) REFLEXon 06-14-2023 DIAGNOSIS COMMENT Normal [facility] Comment on above: Order Comment: Sharyni eb Type: BONE MARROW SPECIMEN Ordering Facility: [facility] Address: [address] [place] [address] Result Comment: This assay is not designed to detect minimal residual disease or myeloid antigen maturational patterns. This test was developed and its performance characteristics determined by [facility]'s [facility] [place] ([facility]). It has not been cleared or approved by the FDA. [facility] is regulated under CLIA as qualified to perform high-complexity testing. This test is used for clinical purposes. It should not be regarded as investigational or for research. Performed By: #### F CLLP, FCLLRFLX #### [facility] CLIA [id number] [address] [facility] [address] [place] Result Comment: The history of monoclonal gammopathy with IgG lambda specificity is noted. Review of the medical record shows no hypercalcemia, anemia, renal disease, or bone lesions. Although flow cytometry shows a slight skew toward lambda light chain expression in plasma cells, there is no definitively identified monotypic plasma cell population. Overall, plasma cells are not increased in the bone marrow biopsy. Note: Immunohistochemical stains were performed in addition to flow cytometry in this case to further characterize the hematolymphoid elements in the context of cell morphology and tissue architecture. Discrepancies between flow cytometric results and morphology can occur due to sampling differences, preferential loss of specific cell populations, or hemodilution. Laboratory Developed Test (LDT) Disclaimer: Performance characteristics of immunohistochemical, immunofluorescent and chromogenic in-situ hybridization tests have been determined by the performing laboratory within [facility]???s [facility] [place] ([facility], [facility], [facility], [facility], [facility], [facility], or [facility]) in a manner consistent with CLIA requirements. One or more of these tests have not been cleared or approved by the FDA. [facility] is regulated under CLIA as qualified to perform high-complexity testing. These tests are used for clinical purposes. They should not be regarded as investigational or for research. Positive and negative controls stain appropriately. Performed By: #### B MRT #### [facility] CLIA [id number] [place] FINAL PERFORMING LAB Normal [facility] Comment on above: Order Comment: Speci men Type: BONE MARROW SPECIMEN Ordering Facility: [facility] Address: [address] [place] [address] Result Comment: Diag nostic interpretation performed at [facility], [facility] [place] [address] CLIA# [id number] Rough Rib Grader: Isaiah Oconnell M.D. Performed By: #### F CLLP, FCLLRFLX #### [facility] CLIA [id number] [address] [place] [address] Performed By: #### B MRT #### [facility] CLIA [id number] [address] [place] [address] [place] FLOW CYTOMETRY RESULTS Normal [facility] Comment on above: Order Comment: Speci men Type: BONE MARROW SPECIMEN Ordering Facility: [facility] Address: [address] [place] [address] Result Comment: Spec imen type: Bone marrow aspirate Viability: 98% Results: Flow Cytometry Bone Marrow Immunophenotyping Marker Normal Cell Type Result (Lymphocytes) CD3 T-cells Normal Pattern CD4 T-cell subset Normal Pattern CD5 T-cells Normal Pattern CD7 T/NK-cells Normal Pattern CD8 T-cell subset Normal Pattern CD13 Myeloid Normal Pattern CD16/56 NK cells Normal Pattern CD19 B-cells Normal Pattern CD34 Blasts Normal Pattern CD45 Luong-leukocyte Normal Pattern kappa/lambda B-cells Normal Pattern Flow Cytometry Bone Marrow Plasma Cell Immunophenotyping Marker Normal Cell Type Result (Plasma Cells) CD19 B-cells See Interpretation CD38 Activation Normal Pattern CD45 Luong-leukocyte Normal Pattern CD138 Plasma Cells Normal Pattern CD56 T/NK-cells Normal Pattern cKappa/cLambda B-cells See Interpretation Flow cytometric analysis of the bone marrow aspirate reveals that 10% of total events have the CD45 and light scatter properties of lymphocytes. The lymphocytes are composed of T-cells 43%, CD4:CD8 ratio = 1.3), NK cells (31%), and polytypic B-cells (22%). Granulocytic elements are 71% of events. Blasts are not increased. Plasma cells are 0.3% of total events according to CD38 and CD45 characteristics. Although overall polytypic, the plasma cells show a slight skew toward lambda light chain expression ([place]:Lambda = 0.6:1).They show partial CD19 expression (CD19 positive subset is also polytypic and more equally expressing kappa and lambda), and are otherwise phenotypically unremarkable. Performed By: #### F CLLP, FCLLRFLX #### [facility] CLIA [id number] [address] [place] [address] GROSS DESCRIPTION A. Bone Marrow Normal [facility] Comment on above: Order Comment: Negin parson Type: BONE MARROW SPECIMEN Ordering Facility: [facility] Address: [address] [place] [address] Result Comment: Rece ived 2 mls bone marrow in na hep Performed By: #### F CLLP, FCBRENNENRFLX #### [facility] CLIA [id number] [address] [place] [address] [place] INTERPRETATION Normal [facility] Comment on above: Order Comment: Negin parson Type: BONE MARROW SPECIMEN Ordering Facility: [facility] Address: [address] [place] [address] Result Comment: The findings of a light chain expression pattern skewed toward lambda raise concern for the presence of a small monoclonal plasma cell population. There is no evidence of involvement by a lymphoproliferative disorder or abnormal blast population. Correlation with the clinical, laboratory, radiologic, and bone marrow histopathologic findings is suggested. Performed By: #### F CLLP, FCLLRFLX #### [facility] CLIA [id number] [address] [place] [address] [place] HISTORY PHYSICALon HISTORY PHYSICAL HNO ID: [id number] Author: STACEY GIANG DO Service: Radiology Author Type: Physician Type: H&P Filed: 06/14/2023 10:59 Note Text: PROCEDURAL SEDATION HISTORY AND PHYSICAL EXAM SERVICE DATE: 06/14/2023 SERVICE TIME: 10:58 AM Subjective HPI: This is a 73 year old female who presents for bone marrow aspiration and biopsy PAST ANESTHESIA HISTORY: No history of adverse event PAST MEDICAL HISTORY Diagnosis Date Arthritis Diastolic dysfunction Grade I Disorder of bone and cartilage, unspecified Diverticulosis 2009 colonoscopy History of transfusion HOCM (hypertrophic obstructive cardiomyopathy) (HCC) Insomnia, unspecified Melanocytic Nevocellular Nevi pigmented moles of trunk: back mainly 08/02/2011 Mitral valve disorders Monoclonal gammopathy 04/2017 Osteoporosis Other diseases of lung, not elsewhere classified restrictive lung disease Other pulmonary embolism and infarction 07/25/2012 ? had pe with normal d dimer. saw pulmonary. not convinced she did have one. Renal cyst Small airways disease Possible asthma. Patient unable to perform definitive test SVT (supraventricular tachycardia) 01/14/2020 Unspecified essential hypertension PAST SURGICAL HISTORY Procedure Laterality Date BACK SURGERY HX BIOPSY BREAST OPEN INCISIONAL left Bx of breast, incisional COLONOSCOPY FLX DX W/COLLJ SPEC WHEN PFRMD 10/27/2004 Colonoscopy COLONOSCOPY FLX DX W/COLLJ SPEC WHEN PFRMD 02/22/2010 Colonoscopy COLONOSCOPY FLX DX W/COLLJ SPEC WHEN PFRMD 03/19/2015 Colonoscopy CORRECT BUNION,SIMPLE CORRECTION HAMMERTOE EYE SURGERY HX PAST SURGICAL HISTORY OF scoliosis surgery PAST SURGICAL HISTORY OF laser kidney stone TONSILLECTOMY HX TONSILLECTOMY PRIMARY/SECONDARY Tonsillectomy Prior to Admission medications as of 06/14/23 0943 Medication Sig Last Dose Taking dilTIAZem CD (CARDIZEM CD) 180 mg 24 hr capsule Take 1 capsule by mouth once daily. 06/14/2023 at 0730 Yes budesonide-formoterol (SYMBICORT) 160-4.5 mcg/actuation inhaler Inhale 2 Puffs as instructed twice daily. 06/14/2023 at 0000 Yes calcium citrate (CITRACAL ORAL) Take 2 capsules by mouth two times a day. 06/13/2023 Yes MULTIVITAMIN ORAL Take 1 tablet by mouth once daily. 06/13/2023 Yes mometasone-formoterol (DULERA) 100-5 mcg/actuation inhaler Inhale 2 Puffs as instructed two times a day. Unknown clindamycin (CLEOCIN T) 1 % gel Apply to affected area once daily. denosumab (PROLIA) 60 mg/mL Inject subcutaneously once every 6 months. 03/10/2023 albuterol HFA (VENTOLIN HFA) 90 mcg/actuation inhaler Inhale 2 Puffs as instructed every 4 hours as needed for wheezing/shortness of breath. melatonin 3 mg tablet Take 3 mg by mouth. qhs Unknown acetaminophen 325 mg cap Take by mouth as needed. Unknown ALLERGIES Allergen Reactions Amoxicillin Rash Asa [Salicylates] Swelling lip swelling Diclofenac Shortness of Breath Iodine Shortness of Breath Monistat 1 [Tiocona* Intolerance Burning Objective PHYSICAL EXAM: The remainder of the physical exam is noncontributory. AIRWAY: Airway Visualization of Uvula: Yes Mouth opening greater than 2 fingerbreadths: Yes Neck Full Range of Motion: Yes LUNGS: Lungs clear to auscultation CARDIAC: Regular rhythm,Regular rate Assessment/Plan ASA Class: ASA Class:: Patient with mild systemic disease Active Problems: * No active hospital problems. * Resolved Problems: * No resolved hospital problems. * Provisional Diagnosis/Treatment Plan: CT guided bone marrow aspiration and biopsy SEDATION GOAL: Moderate SIGNATURE: Stacey Giang DO PATIENT NAME: Vandana Markley DATE: June 14, 2023 TIME: 10:58 AM [facility] Office Visit (FAMPWS ) PAULACLAYVANDANA K ([id number]) 1950 F NFR Date Time Provider Department 06/13/23 1:40 PM MARKUS RASCON FAMPWS During your visit today, we recorded the following information about you: Pulse Blood pressure Weight Height 82/minute 157/71 52.7 kg 1.582 m Markus Rascon MD 06/13/2023 5:05 PM Signed Patient presents with: 6 Month Exam HPI: Patient presents today for office visit for 6 month follow up. Scheduled tomorrow [facility] bone marrow biopsy. Saw Dr. Nolasco, Cardiology 06/12/23. History of hypertrophic cardiomyopathy. Maintained on a Cardizem. Asymptomatic. HTN: Monitors BP at home Denies new or worsening chest pain and shortness of breath. Denies headaches and dizziness No palpitations No syncope No edema Follows with Dr. Oneill. Hem/Onc XR bone from 05/09/23 showed no acute fracture or destructive osseous lesion. DXA scan from March showed significant losses both in left hip and left femoral neck since last scan. Right hip was scanned although not able to be analyzed per radiology dept. Sometimes this happens when bone mass is too low or if possibly surgery was performed on that side. These things can make it difficult to read. Is on prolia. Sees juvenal Bangura. Followed by Pulmonary. Asthma is well controlled. Pulmonary recommends continued use of her Symbicort but could decrease the dosing to 80/4.5. Patient is reluctant to do so since she seems to be doing well from a respiratory standpoint on current regimen. Very rarely having to use rescue inhaler. Memory is stable. Last time she was here she mentioned having some difficulty trying to write letters. She would really have to think about what she was writing. Denies any issues with this today. Refers to it being not so much her memory but being anxious. She gets overwhelmed easily when trying to multitask. Has some stress over the holidays. No tremors or falls. No headache, numbness or weakness. Has had carotids in the last year. MEDICATIONS: Current Outpatient Medications Medication Sig dilTIAZem CD (CARDIZEM CD) 180 mg 24 hr capsule Take 1 capsule by mouth once daily. mometasone-formoterol (DULERA) 100-5 mcg/actuation inhaler Inhale 2 Puffs as instructed two times a day. budesonide-formoterol (SYMBICORT) 160-4.5 mcg/actuation inhaler Inhale 2 Puffs as instructed twice daily. calcium citrate (CITRACAL ORAL) Take 2 capsules by mouth two times a day. clindamycin (CLEOCIN T) 1 % gel Apply to affected area once daily. denosumab (PROLIA) 60 mg/mL Inject subcutaneously once every 6 months. albuterol HFA (VENTOLIN HFA) 90 mcg/actuation inhaler Inhale 2 Puffs as instructed every 4 hours as needed for wheezing/shortness of breath. melatonin 3 mg tablet Take 3 mg by mouth. qhs acetaminophen 325 mg cap Take by mouth as needed. MULTIVITAMIN ORAL Take 1 tablet by mouth once daily. No current facility-administered medications for this visit. ALLERGIES: ALLERGIES Allergen Reactions Amoxicillin Rash Asa [Salicylates] Swelling lip swelling Diclofenac Shortness of Breath Iodine Shortness of Breath Monistat 1 [Tiocona* Intolerance Burning PAST MEDICAL HISTORY Diagnosis Date Arthritis Diastolic dysfunction Grade I Disorder of bone and cartilage, unspecified Diverticulosis 2009 colonoscopy History of transfusion HOCM (hypertrophic obstructive cardiomyopathy) (HCC) Insomnia, unspecified Melanocytic Nevocellular Nevi pigmented moles of trunk: back mainly 08/02/2011 Mitral valve disorders Monoclonal gammopathy 04/2017 Osteoporosis Other diseases of lung, not elsewhere classified restrictive lung disease Other pulmonary embolism and infarction 07/25/2012 ? had pe with normal d dimer. saw pulmonary. not convinced she did have one. Renal cyst Small airways disease Possible asthma. Patient unable to perform definitive test SVT (supraventricular tachycardia) 01/14/2020 Unspecified essential hypertension PAST SURGICAL HISTORY Procedure Laterality Date BACK SURGERY HX BIOPSY BREAST OPEN INCISIONAL left Bx of breast, incisional COLONOSCOPY FLX DX W/COLLJ SPEC WHEN PFRMD 10/27/2004 Colonoscopy COLONOSCOPY FLX DX W/COLLJ SPEC WHEN PFRMD 02/22/2010 Colonoscopy COLONOSCOPY FLX DX W/COLLJ SPEC WHEN PFRMD 03/19/2015 Colonoscopy CORRECT BUNION,SIMPLE CORRECTION HAMMERTOE EYE SURGERY HX PAST SURGICAL HISTORY OF scoliosis surgery PAST SURGICAL HISTORY OF laser kidney stone TONSILLECTOMY HX TONSILLECTOMY PRIMARY/SECONDARY Tonsillectomy FAMILY HISTORY Problem Relation Age of Onset Colon Cancer Mother 56 Hypertension Mother Colon Cancer Father Diabetes Father Hypertension Maternal Grandmother Social History Tobacco Use Smoking status: Never Smokeless tobacco: Never Tobacco comments: Father smoked in childhood home. Spouse does not smoke. (more content not included)... Normal [facility] CNOVon 06-12-2023 CNOV Office Visit (CAWSTR ) VANDANA MITCHELL ([id number]) 1950 F NFR Date Time Provider Department 06/12/23 1:40 PM CLARY NOLASCO CAWSTR During your visit today, we recorded the following information about you: Pulse Blood pressure Weight 88/minute 163/72 52.6 kg Clary Nolasco MD 06/12/2023 2:26 PM Signed Clary Nolasco MD Interventional Cardiology [address] [place] [address] Chief Complaint Patient presents with: yearly check HISTORY OF PRESENT ILLNESS: Ms. Mitchell is a 73 year old female seen in my office for follow-up prior history of hypertrophic cardiomyopathy maintained on a Cardizem asymptomatic from the cardiac point of view blood pressure is well-controlled No signs or symptoms of congestive heart failure Cardiac Risk Factors age (male over 45, female over 55), hypertension, family history of CAD PAST MEDICAL HISTORY Diagnosis Date Arthritis Diastolic dysfunction Grade I Disorder of bone and cartilage, unspecified Diverticulosis 2009 colonoscopy History of transfusion HOCM (hypertrophic obstructive cardiomyopathy) (HCC) Insomnia, unspecified Melanocytic Nevocellular Nevi pigmented moles of trunk: back mainly 08/02/2011 Mitral valve disorders Monoclonal gammopathy 04/2017 Osteoporosis Other diseases of lung, not elsewhere classified restrictive lung disease Other pulmonary embolism and infarction 07/25/2012 ? had pe with normal d dimer. saw pulmonary. not convinced she did have one. Renal cyst Small airways disease Possible asthma. Patient unable to perform definitive test SVT (supraventricular tachycardia) 01/14/2020 Unspecified essential hypertension PAST SURGICAL HISTORY Procedure Laterality Date BACK SURGERY HX BIOPSY BREAST OPEN INCISIONAL left Bx of breast, incisional COLONOSCOPY FLX DX W/COLLJ SPEC WHEN PFRMD 10/27/2004 Colonoscopy COLONOSCOPY FLX DX W/COLLJ SPEC WHEN PFRMD 02/22/2010 Colonoscopy COLONOSCOPY FLX DX W/COLLJ SPEC WHEN PFRMD 03/19/2015 Colonoscopy CORRECT BUNION,SIMPLE CORRECTION HAMMERTOE EYE SURGERY HX PAST SURGICAL HISTORY OF scoliosis surgery PAST SURGICAL HISTORY OF laser kidney stone TONSILLECTOMY HX TONSILLECTOMY PRIMARY/SECONDARY Tonsillectomy FAMILY HISTORY Problem Relation Age of Onset Colon Cancer Mother 56 Hypertension Mother Colon Cancer Father Diabetes Father Hypertension Maternal Grandmother Social History Tobacco Use Smoking status: Never Smokeless tobacco: Never Tobacco comments: Father smoked in childhood home. Spouse does not smoke. Vaping Use Vaping Use: Never used Substance Use Topics Alcohol use: Yes Comment: Occasionally. Drug use: No ALLERGIES Allergen Reactions Amoxicillin Rash Asa [Salicylates] Swelling lip swelling Diclofenac Shortness of Breath Iodine Shortness of Breath Monistat 1 [Tiocona* Intolerance Burning Medications: Current Outpatient Medications Medication Sig Dispense Refill dilTIAZem CD (CARDIZEM CD) 180 mg 24 hr capsule Take 1 capsule by mouth once daily. 30 capsule 5 budesonide-formoterol (SYMBICORT) 160-4.5 mcg/actuation inhaler Inhale 2 Puffs as instructed twice daily. 10.2 g 5 calcium citrate (CITRACAL ORAL) Take 2 capsules by mouth two times a day. clindamycin (CLEOCIN T) 1 % gel Apply to affected area once daily. 60 g 2 denosumab (PROLIA) 60 mg/mL Inject subcutaneously once every 6 months. albuterol HFA (VENTOLIN HFA) 90 mcg/actuation inhaler Inhale 2 Puffs as instructed every 4 hours as needed for wheezing/shortness of breath. 1 Each 3 melatonin 3 mg tablet Take 3 mg by mouth. qhs acetaminophen 325 mg cap Take by mouth as needed. MULTIVITAMIN ORAL Take 1 tablet by mouth once daily. mometasone-formoterol (DULERA) 100-5 mcg/actuation inhaler Inhale 2 Puffs as instructed two times a day. 1 Each 11 No current facility-administered medications for this visit. Review of Systems Constitutional: Negative for chills, diaphoresis, fever, malaise/fatigue and weight loss. HENT: Negative for congestion, ear discharge, ear pain, hearing loss, nosebleeds, sinus pain, sore throat and tinnitus. Eyes: Negative for blurred vision, double vision, photophobia, pain, discharge and redness. Respiratory: Negative for cough, hemoptysis, sputum production, shortness of breath, wheezing and stridor. Cardiovascular: Negative for chest pain, palpitations, orthopnea, claudication, leg swelling and PND. Gastrointestinal: Negative for abdominal pain, blood in stool, constipation, diarrhea, heartburn, melena, nausea and vomiting. Genitourinary: Negative for dysuria, flank pain, frequency, hematuria and urgency. Musculoskeletal: Negative for back pain, falls, joint pain, myalgias and neck pain. Skin: Negative for itching and rash. Neurological: Negative for dizziness, tingling, tremors, sensory change, speech (more content not included)... Normal [facility] ECG COMPLETEon 06-12-2023 ECG COMPLETE Ventricular Rate : 8 2 BPM Atrial Rate : 82 BPM P-R Interval : 208 ms QRS Duration : 70 ms Q-T Interval : 372 ms QTC Calculation(Bazett) : 434 ms Calculated P Lovilia : 77 degrees Calculated R Lovilia : 11 degrees Calculated T Lovilia : 70 degrees NORMAL SINUS RHYTHM Confirmed by AGUS CASILLAS DO ([id number]) on 06/13/2023 4:54:28 PM NAME : VANDANA MITCHELL PID : [id number] : 1950 Gender : Female Race : ORD : [id number] Procedure Date : Jun 12 2023 14:51:38 Edit Date : Jun 13 2023 16:54:30 Diagnosis: NORMAL SINUS RHYTHM Confirmed by AGUS CASILLAS DO ([id number]) on 06/13/2023 4:54:28 PM Test Reason : Location : 136 : [place] Overread By : AGUS CASILLAS DO Edited By : AGUS CASILLAS DO Referred By : CLARY NOLASCO Acquired by : , Mary Ann [facility] CBC W Auto Differential pane l (Bld)on 06-10-2023 Basophils (Bld) [#/Vol] 0.11 10*3/uL High <0.11 [facility] Comment on above: Order Comment: Speci men Type: BLOOD SPECIMENOrdering Facility: [facility] Address: [address] [place] [address] Performed By: #### 5 7021-8 ####[facility] LABCLIA [id number] [place] [address] [place] Basophils/100 WBC (Bld) 1.6 % Normal [facility] Comment on above: Order Comment: Speci men Type: BLOOD SPECIMENOrdering Facility: [facility] Address: [address] [place] [address] Performed By: #### 5 7021-8 ####[facility] LABCLIA [id number] [place] [address] [place] Differential cell count method Nom (Bld) Auto Normal [facility] Comment on above: Order Comment: Speci men Type: BLOOD SPECIMENOrdering Facility: [facility] Address: [address] [place] [address] Performed By: #### 5 7021-8 ####[facility] LABCLIA [id number] [place] [address] [place] Eosinophils (Bld) [#/Vol] 0.14 10*3/uL Normal <0.46 [facility] Comment on above: Order Comment: Speci men Type: BLOOD SPECIMENOrdering Facility: [facility] Address: [address] [place] [address] Performed By: #### 5 7021-8 ####[facility] LABCLIA [id number] [place] [address] [place] Eosinophils/100 WBC (Bld) 2.0 % Normal [facility] Comment on above: Order Comment: Speci men Type: BLOOD SPECIMENOrdering Facility: [facility] Address: [address] [place] [address] Performed By: #### 5 7021-8 ####[facility] LABCLIA [id number] [place] [address] [place] Erythrocyte distribution width (RBC) [Ratio] 14.0 % Normal 11.5-15.0 [facility] Comment on above: Order Comment: Speci men Type: BLOOD SPECIMENOrdering Facility: [facility] Address: [address] [place] [address] Performed By: #### 5 7021-8 ####[facility] LABCLIA [id number] [place] [address] [place] Hematocrit (Bld) [Volume fraction] 38.0 % Normal 36.0-46.0 [facility] Comment on above: Order Comment: Speci men Type: BLOOD SPECIMENOrdering Facility: [facility] Address: [address] [place] [address] Performed By: #### 5 7021-8 ####[facility] LABCLIA [id number] [place] [address] [place] Hemoglobin (Bld) [Mass/Vol] 12.4 g/dL Normal 11.5-15.5 [facility] Comment on above: Order Comment: Speci men Type: BLOOD SPECIMENOrdering Facility: [facility] Address: [address] [place] [address] Performed By: #### 5 7021-8 ####[facility] LABCLIA [id number] [place] [address] [place] Immature granulocytes (Bld) [#/Vol] 0.03 10*3/uL Normal <0.10 [facility] Comment on above: Order Comment: Speci men Type: BLOOD SPECIMENOrdering Facility: [facility] Address: [address] [place] [address] Performed By: #### 5 7021-8 ####[facility] LABCLIA [id number] [place] [address] [place] Immature granulocytes/100 WBC (Bld) 0.4 % Normal [facility] Comment on above: Order Comment: Speci men Type: BLOOD SPECIMENOrdering Facility: [facility] Address: [address] [place] [address] Performed By: #### 5 7021-8 ####[facility] LABCLIA [id number] [place] [address] [place] Lymphocytes (Bld) [#/Vol] 1.35 10*3/uL Normal 1.00-4.00 [facility] Comment on above: Order Comment: Speci men Type: BLOOD SPECIMENOrdering Facility: [facility] Address: [address] [place] [address] Performed By: #### 5 7021-8 ####[facility] LABCLIA [id number] [place] [address] [place] Lymphocytes/100 WBC (Bld) 19.5 % Normal [facility] Comment on above: Order Comment: Speci men Type: BLOOD SPECIMENOrdering Facility: [facility] Address: [address] [place] [address] Performed By: #### 5 7021-8 ####[facility] LABIA [id number] [place] [address] [place] MCH (RBC) [Entitic mass] 27.0 pg Normal 26.0-34.0 [facility] Comment on above: Order Comment: Speci men Type: BLOOD SPECIMENOrdering Facility: [facility] Address: [address] [place] [address] Performed By: #### 5 7021-8 ####[facility] LABIA [id number] [place] [address] [place] MCHC (RBC) [Mass/Vol] 32.6 g/dL Normal 30.5-36.0 [facility] Comment on above: Order Comment: Speci men Type: BLOOD SPECIMENOrdering Facility: [facility] Address: [address] [place] [address] Performed By: #### 5 7021-8 ####[facility] LABIA [id number] [place] [address] [place] MCV (RBC) [Entitic vol] 82.8 fL Normal 80.0-100.0 [facility] Comment on above: Order Comment: Speci men Type: BLOOD SPECIMENOrdering Facility: [facility] Address: [address] [place] [address] Performed By: #### 5 7021-8 ####[facility] LABIA [id number] [place] [address] [place] Monocytes (Bld) [#/Vol] 0.75 10*3/uL Normal <0.87 [facility] Comment on above: Order Comment: Speci men Type: BLOOD SPECIMENOrdering Facility: [facility] Address: [address] [place] [address] Performed By: #### 5 7021-8 ####[facility] LABCLIA [id number] [place] [address] [place] Monocytes/100 WBC (Bld) 10.9 % Normal [facility] Comment on above: Order Comment: Speci men Type: BLOOD SPECIMENOrdering Facility: [facility] Address: [address] [place] [address] Performed By: #### 5 7021-8 ####[facility] LABCLIA [id number] [place] [address] [place] Neutrophils (Bld) [#/Vol] 4.53 10*3/uL Normal 1.45-7.50 [facility] Comment on above: Order Comment: Speci men Type: BLOOD SPECIMENOrdering Facility: [facility] Address: [address] [place] [address] Performed By: #### 5 7021-8 ####[facility] LABCLIA [id number] [place] [address] [place] Neutrophils/100 WBC (Bld) 65.6 % Normal [facility] Comment on above: Order Comment: Speci men Type: BLOOD SPECIMENOrdering Facility: [facility] Address: [address] [place] [address] Performed By: #### 5 7021-8 ####[facility] LABCLIA [id number] [place] [address] [place] Nucleated RBC (Bld) [#/Vol] 10*3/uL Normal <0.01 [facility] Comment on above: Order Comment: Speci men Type: BLOOD SPECIMENOrdering Facility: [facility] Address: [address] [place] [address] Performed By: #### 5 7021-8 ####[facility] LABCLIA [id number] [place] [address] [place] Nucleated RBC/100 WBC (Bld) [Ratio] 0.0 /100 WBC Normal [facility] Comment on above: Order Comment: Speci men Type: BLOOD SPECIMENOrdering Facility: [facility] Address: [address] [place] [address] Performed By: #### 5 7021-8 ####[facility] LABCLIA [id number] [place] [address] [place] Platelet mean volume (Bld) [Entitic vol] 10.8 fL Normal 9.0-12.7 [facility] Comment on above: Order Comment: Speci men Type: BLOOD SPECIMENOrdering Facility: [facility] Address: [address] [place] [address] Performed By: #### 5 7021-8 ####[facility] LABCLIA [id number] [place] [address] [place] Platelets (Bld) [#/Vol] 288 10*3/uL Normal 150-400 [facility] Comment on above: Order Comment: Speci men Type: BLOOD SPECIMENOrdering Facility: [facility] Address: [address] [place] [address] Performed By: #### 5 7021-8 ####[facility] LABCLIA [id number] [place] [address] [place] RBC (Bld) [#/Vol] 4.59 10*6/uL Normal 3.90-5.20 [facility] Comment on above: Order Comment: Speci men Type: BLOOD SPECIMENOrdering Facility: [facility] Address: [address] [place] [address] Performed By: #### 5 7021-8 ####[facility] LABCLIA [id number] [place] [address] [place] WBC (Bld) [#/Vol] 6.91 10*3/uL Normal 3.70-11.00 [facility] Comment on above: Order Comment: Speci men Type: BLOOD SPECIMENOrdering Facility: [facility] Address: [address] [place] [address] Performed By: #### 5 7021-8 ####[facility] LABIA [id number] [place] [address] [place] PT panel Coag (PPP)on 2023 INR Coag (PPP) [Relative time] 1.0 {INR} Normal 0.9-1.3 [facility] Comment on above: Order Comment: Speci men Type: BLOOD SPECIMENOrdering Facility: [facility] Address: [address] [place] [address] Result Comment: Apurva min K Antagonist (VKA) Therapeutic Range: INR 2 to 3 (Target INR of 2.5) Note: For patients treated with VKA drugs, such as warfarin, the [place] [employer] 2012 Guideline recommends a therapeutic INR range of 2 to 3 (target INR of 2.5). This recommendation includes high-risk patients with antiphospholipid syndrome with previous arterial or venous thromboembolism, current-generation mechanical or bioprosthetic aortic heart valve replacement. Note: Patients with mechanical aortic valve replacement and additional risk factors for thromboembolic events (atrial fibrillation, previous thromboembolism, LV dysfunction, hypercoagulable conditions) or an older generation mechanical AVR (i.e., ball in-Cage) or any mechanical MVR should have a INR therapeutic range of 2.5 to 3.5 (target INR of 3). Laurie GH, et al. Chest 2012, 141:7S-47S Peggy RA, et al. [facility] 2017, 70: 252-289 Performed By: #### 3 4528-0 ####[facility] LABCLIA [id number] [place] [address] [place] PT Coag (PPP) [Time] 10.5 s Normal 9.7-13.0 [facility] Comment on above: Order Comment: Speci men Type: BLOOD SPECIMENOrdering Facility: [facility] Address: [address] [place] [address] Performed By: #### 3 4528-0 ####[facility] LABIA [id number] [place] [id number] [facility] Mendy 06-09-2023 CNPN Telephone (MEXR) VANDANA MITCHELL ([id number]) 1950 F NFR Date Time Provider Department 06/09/23 PRIYA CAMARILLO During your visit today, we recorded the following information about you: Priya Camarillo, DIANNE 06/09/2023 12:12 PM Signed You are scheduled for a Bone Marrow Biopsy, On 06/14/2023. You are to arrive at 0900 am for a 1030 procedure time and Report to [facility]: Entrance A (behind hospital), Elevators on the left to the first floor, Ambulatory surgery waiting area on first floor. You can expect to be here for 4-8 hours. Diet: Do not eat any solid food or drink liquids after midnight the day of/night before your procedure. Medications: Ok to take your cardiac, blood pressure, anti-seizure, and chronic pain medications with a sip of water, please take prior to arrival. Bring your current medication list. Labs: Lab-work needs to be drawn? Yes, labs need to be drawn at least one day prior to procedure. Please bring a copy of the results if they are not done at a [facility] facility. . [employer]/Transportation: How will you be arriving for your procedure? Private car. You will need a responsible adult to accompany you to and from the procedure. Your compressed air pile driver operator is required to stay with you until you are taken into the procedure room. Please call with any questions or concerns [phone] opt 3 Allergies As of Date: 06/09/2023 Noted Allergy Reaction AMOXICILLIN 04/22/2005 2 - Rash ASA (SALICYLATES) 04/22/2005 7 - Swelling Comments: lip swelling DICLOFENAC 02/21/2006 12 - Shortness of Breath IODINE 04/22/2005 12 - Shortness of Breath MONISTAT 1 (TIOCONAZOLE) 04/22/2005 14 - Other: See Comments Comments: Burning shell fish [Other] 04/22/2005 10 - Anaphylaxis METOPROLOL 11/09/2018 5 - Intolerance Comments: SOB Date Reviewed: 05/15/2023 Reviewed by: Kalyan Serna MA - Fully Assessed Reason for Visit: Radiology Pre Procedure Instructions [1506] Prescriptions as of 06/09/2023 - dilTIAZem CD (CARDIZEM CD) 180 mg 24 hr capsule Take 1 capsule by mouth once daily. - mometasone-formoterol (DULERA) 100-5 mcg/actuation inhaler Inhale 2 Puffs as instructed two times a day. - budesonide-formoterol (SYMBICORT) 160-4.5 mcg/actuation inhaler Inhale 2 Puffs as instructed twice daily. - calcium citrate (CITRACAL ORAL) Take 2 capsules by mouth two times a day. - clindamycin (CLEOCIN T) 1 % gel Apply to affected area once daily. - denosumab (PROLIA) 60 mg/mL Inject subcutaneously once every 6 months. - albuterol HFA (VENTOLIN HFA) 90 mcg/actuation inhaler Inhale 2 Puffs as instructed every 4 hours as needed for wheezing/shortness of breath. - melatonin 3 mg tablet Take 3 mg by mouth. qhs - acetaminophen 325 mg cap Take by mouth as needed. - MULTIVITAMIN ORAL Take 1 tablet by mouth once daily. Problem List As Of Date 06/09/2023 Noted Resolved GENERAL OSTEOARTHROSIS [M15.9] 11/18/2005 07/03/2015 Essential hypertension [I10] 11/18/2005 Non-rheumatic mitral regurgitation [I34.0] Unspecified asthma [J45.909] 04/11/2011 Disorder of bone and cartilage, unspecified [M8* 12/04/2019 Cervicalgia [M54.2] 08/28/2007 08/09/2018 Idiopathic scoliosis and kyphoscoliosis [M41.20]01/09/2011 Family history of colon cancer [Z80.0] 07/06/2011 Bursitis of right shoulder [M75.51] 10/10/2011 08/09/2018 Osteoporosis [M81.0] 10/10/2011 Psychophysiological insomnia [F51.04] 10/26/2011 Multinodular thyroid [E04.2] 10/27/2011 Other pulmonary embolism and infarction (HCC) [*07/25/2012 07/21/2016 Complete uterovaginal prolapse [N81.3] 01/09/2015 03/30/2016 Pelvic muscle wasting [N81.84] 01/09/2015 08/09/2018 Postmenopausal atrophic vaginitis [N95.2] 01/09/2015 Muscle weakness [M62.81] 02/16/2015 07/21/2016 Restrictive 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 *07/31/2015 Incomplete uterovaginal prolapse [N81.2] 04/05/2016 Monoclonal gammopathy [D47.2] 03/30/2017 Hypercalcemia [E83.52] 08/09/2018 Mitral valve prolapse [I34.1] 08/09/2018 09/16/2022 Bilateral carotid artery stenosis [I65.23] 08/09/2018 Obstructive cardiomyopathy (HCC) [I42.8] 01/28/2019 Precordial pain [R07.2] 01/28/2019 09/16/2022 Dyspnea on exertion [R06.09] 05/31/2019 09/16/2022 SVT (supraventricular tachycardia) (HCC) [I47.1*01/14/2020 Screening for colon cancer [Z12.11] 09/24/2020 09/24/2020 Murmur [R01.1] 10/05/2020 09/16/2021 HOCM (hypertrophic obstructive cardiomyopathy) *10/05/2020 Age-related osteoporosis without current pathol*09/10/2021 Closed fracture of distal radius and ulna [S52.*03/18/2022 Cyst of kidney, acquired [N28.1] 02/18/2022 Greater trochanteric bursitis [M70.60] 03/18/2022 09/16/2022 Normal pelvic exam [Z01.419] 01/24/2017 09/16/2022 Mild intermittent asthma without complication [*03/22/2022 Dizziness [R42] 11/17/2022 Epistax (more content not included)... Normal [facility] 05-31-2023 CNPN Telephone (HEMAWS) VANDANA MITCHELL ([id number]) 1950 F NFR Date Time Provider Department 05/31/23 DANNY ONEILL During your visit today, we recorded the following information about you: Lory Kwan 05/31/2023 2:23 PM Signed Patient called stating she would like to cancel 06/19 [facility] in [place] and reschedule at another location with sedation. 06/19 canceled. Please advise patient. Lory Kwan 05/31/2023 2:25 PM Signed 07/[address] Oneill is still on schedule. Reschedule as needed. Did not want to cancel in case she could still be seen that day. Bhumika Choudhary LPN 05/31/2023 3:31 PM Signed [facility] order pended.Will have Dr. Oneill sign order upon his return. DIANA Barboza Paul A, DO 06/02/2023 12:13 PM Signed Order filed. Can schedule either [place] or [facility]. May have to move out office visit accordingly. DO Willow Palmer Stephanie 06/02/2023 12:31 PM Signed Epic chat started with IR Coordinators to schedule. Doris Sy 06/09/2023 3:45 PM Signed Pt scheduled on 06/14 for bone marrow biopsy w sedation. Doris Maza Allergies As of Date: 05/31/2023 Noted Allergy Reaction AMOXICILLIN 04/22/2005 2 - Rash ASA (SALICYLATES) 04/22/2005 7 - Swelling Comments: lip swelling DICLOFENAC 02/21/2006 12 - Shortness of Breath IODINE 04/22/2005 12 - Shortness of Breath MONISTAT 1 (TIOCONAZOLE) 04/22/2005 14 - Other: See Comments Comments: Burning shell fish [Other] 04/22/2005 10 - Anaphylaxis METOPROLOL 11/09/2018 5 - Intolerance Comments: SOB Date Reviewed: 05/15/2023 Reviewed by: Kalyan Serna MA - Fully Assessed Reason for Visit: Appointment [186] Primary Visit Diagnosis:Monoclonal gammopathy [D47.2] Order(s):IMAGING GUIDED BIOPSY BONE MARROW (HEMATOLOGY) [[id number]] Order #: [id number] Prescriptions as of 06/09/2023 - dilTIAZem CD (CARDIZEM CD) 180 mg 24 hr capsule Take 1 capsule by mouth once daily. - mometasone-formoterol (DULERA) 100-5 mcg/actuation inhaler Inhale 2 Puffs as instructed two times a day. - budesonide-formoterol (SYMBICORT) 160-4.5 mcg/actuation inhaler Inhale 2 Puffs as instructed twice daily. - calcium citrate (CITRACAL ORAL) Take 2 capsules by mouth two times a day. - clindamycin (CLEOCIN T) 1 % gel Apply to affected area once daily. - denosumab (PROLIA) 60 mg/mL Inject subcutaneously once every 6 months. - albuterol HFA (VENTOLIN HFA) 90 mcg/actuation inhaler Inhale 2 Puffs as instructed every 4 hours as needed for wheezing/shortness of breath. - melatonin 3 mg tablet Take 3 mg by mouth. qhs - acetaminophen 325 mg cap Take by mouth as needed. - MULTIVITAMIN ORAL Take 1 tablet by mouth once daily. Problem List As Of Date 05/31/2023 Noted Resolved GENERAL OSTEOARTHROSIS [M15.9] 11/18/2005 07/03/2015 Essential hypertension [I10] 11/18/2005 Non-rheumatic mitral regurgitation [I34.0] Unspecified asthma [J45.909] 04/11/2011 Disorder of bone and cartilage, unspecified [M8* 12/04/2019 Cervicalgia [M54.2] 08/28/2007 08/09/2018 Idiopathic scoliosis and kyphoscoliosis [M41.20]01/09/2011 Family history of colon cancer [Z80.0] 07/06/2011 Bursitis of right shoulder [M75.51] 10/10/2011 08/09/2018 Osteoporosis [M81.0] 10/10/2011 Psychophysiological insomnia [F51.04] 10/26/2011 Multinodular thyroid [E04.2] 10/27/2011 Other pulmonary embolism and infarction (HCC) [*07/25/2012 07/21/2016 Complete uterovaginal prolapse [N81.3] 01/09/2015 03/30/2016 Pelvic muscle wasting [N81.84] 01/09/2015 08/09/2018 Postmenopausal atrophic vaginitis [N95.2] 01/09/2015 Muscle weakness [M62.81] 02/16/2015 07/21/2016 Restrictive 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 *07/31/2015 Incomplete uterovaginal prolapse [N81.2] 04/05/2016 Monoclonal gammopathy [D47.2] 03/30/2017 Hypercalcemia [E83.52] 08/09/2018 Mitral valve prolapse [I34.1] 08/09/2018 09/16/2022 Bilateral carotid artery stenosis [I65.23] 08/09/2018 Obstructive cardiomyopathy (HCC) [I42.8] 01/28/2019 Precordial pain [R07.2] 01/28/2019 09/16/2022 Dyspnea on exertion [R06.09] 05/31/2019 09/16/2022 SVT (supraventricular tachycardia) (HCC) [I47.1*01/14/2020 Screening for colon cancer [Z12.11] 09/24/2020 09/24/2020 Murmur [R01.1] 10/05/2020 09/16/2021 HOCM (hypertrophic obstructive cardiomyopathy) *10/05/2020 Age-related osteoporosis without current pathol*09/10/2021 Closed fracture of distal radius and ulna [S52.*03/18/2022 Cyst of kidney, acquired [N28.1] 02/18/2022 Greater trochanteric bursitis [M70.60] 03/18/2022 09/16/2022 Normal pelvic exam [Z01.419] 01/24/2017 09/16/2022 Mild intermittent asthma without complication [*03/22/2022 Dizziness [R42] 11/17/2022 Epistaxis [R04.0] 11/17/2022 Encounter Status:Closed by DORIS MCCRACKEN on 06/09/23 Normal [facility] CNOVSPon 05-15-2023 CNOVSP Visit (SP) Office ([place]) MITCHELLVANDANA Yoana ([id number]) 1950 F NFR Date Time Provider Department 05/15/23 9:30 AM DANNY ONEILL During your visit today, we recorded the following information about you: Temperature Pulse Blood pressure Weight 99.3 degrees 84/minute 155/78 52.6 kg Height 1.582 m Danny Oneill DO 05/15/2023 10:04 AM Signed Diagnosis: 1) IgG lambda MGUS. HPI: Patient is a 73-year-old female who has past medical history significant for osteoporosis, possible renal lithiasis, HOCM and HTN. Over the 3 years prior to referral here, she had rather significant blistering and erythema with any type of insect bite. She also had two localized rashes which had cleared. Was therefore undergoing dermatologic evaluation for these issues and on screening blood work was found to have monoclonal gammopathy with an M spike concentration of 0.42 g/dL. Immunofixation revealed IgG lambda monoclonal protein. Urine electrophoresis was negative. CBC was unremarkable. The white count was 6850 with a normal differential. Hemoglobin 14 g/dL. Platelet count 291,000. She had right shoulder and b/l hip pain that had been worked up. She was undergoing physical therapy for her shoulder. Plain films showed degenerative changes at the AC joint. No evidence of lytic lesions in the visualized bone structure in that area. She was also under the care of orthopedic surgery center for the hip pain. She has a history of scoliosis and had Lozada rods placed in 1963. Since then, she's been told one of the pins has worked loose. She also had bone graft donor site from the left pelvis for one of the vertebral bones. Bone survey on 03/30/2017 revealed no evidence of lesion or other pathologic bone lesion. Presents for ongoing hematologic management. Interim history: On q 6 month Prolia. Bone density 03/2023: LEFT HIP: The bone mineral density of the total region of the hip is 0.538 grams per square centimeter which yields a T-score of -3.3. There has been a 9.2% statistically significant interval decrease in bone mineral density. LEFT FEMORAL NECK: The bone mineral density of the femoral neck is 0.485 grams per square centimeter which yields a T-score of -3.3. There has been an 8.6% statistically significant interval decrease in bone mineral density. Still has occasional numbness under left eye. No other symptoms of peripheral neuropathy. Occasional shoulder pain (both, but not at same time). Pain left hip (buttocks) when lying for recent bone survey. PMH, medications and allergies personally reviewed by me today. Any changes documented in appropriate section. ROS: Constitutional: No recent or recurrent episodes of fever. No drenching night sweats. Normal appetite. Normal energy. Neuro: Denies LARA, vertigo, dizziness and imbalance. HEENT: No recent change in voice, vision or hearing. Resp: Denies cough, wheeze and hemoptysis. Denies shortness of breath at rest. Has chronic dyspnea with exertion secondary to restrictive physiology from scoliosis. CVS: Denies exertional chest pain, PND, orthopnea and LE edema. GI: Denies dysgeusia. Denies symptoms of stomatitis. Denies dysphagia and odynophagia. Denies reflux, n/v, change in bowel habits and abdominal pain. : Denies dysuria or gross hematuria. No symptoms of bladder outlet obstruction. Endo: Denies hot flashes. Denies polyuria and polydipsia. Denies heat and cold intolerance. Musculoskeletal: See above. Derm: Denies rash. Denies jaundice and diffuse pruritis. Heme: Denies unusual bleeding and unexplained bruising. Psych: Normal mood. PHYSICAL EXAM: Vitals: Blood pressure 155/78, pulse 84, temperature 37.4 ?C (99.3 ?F), height 158.2 cm (5' 2.3 ), weight 52.6 kg (116 lb), SpO2 97%. Well-appearing and in no acute distress. EYES: Sclerae are anicteric bilaterally. NECK: Supple. LYMPHATIC: There is no palpable cervical, supraclavicular adenopathy. RESPIRATORY: Inspiratory breath sounds are of normal left and diminished on right. CARDIOVASCULAR: Rhythm is regular. ABDOMEN: The abdomen is nondistended. No organomegaly. No tenderness. Extremities: No swelling or edema. SKIN: No jaundice or rash. No petechiae. 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 No focal motor weakness. MUSCULOSKELETAL: Kyphoscoliosis. LABS: Component Latest Ref Rng AND Units 05/09/2023 WBC 3.70 - 11.00 k/uL 7.40 RBC 3.90 - 5.20 m/uL 4.82 Hemoglobin 11.5 - 15.5 g/dL 12.7 Hematocrit 36.0 - 46.0 % 39.4 MCV 80.0 - 100.0 fL 81.7 MCH 26.0 - 34.0 pg 26.3 MCHC 30.5 - 36.0 g/dL 32.2 RDW-CV 11.5 - 15.0 % 14.8 Platelet Count 150 - 400 k/uL 269 MPV 9.0 - 12.7 fL 10.1 Neut% % 67.3 Abs Neut (ANC) 1.45 - 7.50 k/uL 4.98 Lymph% % 20.4 Abs Lymph 1.00 - 4.00 k/uL 1.51 [place]% % 9.1 Abs [place] <0.87 k/uL 0.67 Eosin% % 1.6 Abs Eosin <0.46 k/uL 0.12 (more content not included)... Normal [facility] B2 Microglob SerPl-mCncon Bgkr-1-Cqtcgkaznpok n [Mass/Vol] 2.3 ug/mL Normal <3.1 [facility] Comment on above: Order Comment: Speci men Type: BLOOD SPECIMENOrdering Facility: [facility] Address: [address] [place] [address] Result Comment: Beta -2 Microglobulin test is performed using the [employer] immunoturbidimetric method. Results obtained with different methods or kits cannot be used interchangeably. Performed By: #### 2 885-2, 1951-06 ####[facility] LABCLIA [id number] [facility] [id number] [place] CBC W Auto Differential pane l (Bld)on 05-09-2023 Basophils (Bld) [#/Vol] 0.11 10*3/uL High <0.11 [facility] Comment on above: Order Comment: Speci men Type: BLOOD SPECIMENOrdering Facility: [facility] Address: [address] [place] [address] Performed By: #### 5 7021-8 ####[facility] [id number] [place] [address] [place] Basophils/100 WBC (Bld) 1.5 % Normal [facility] Comment on above: Order Comment: Speci men Type: BLOOD SPECIMENOrdering Facility: [facility] Address: [address] [place] [address] Performed By: #### 5 7021-8 ####[facility] [id number] [place] [address] [place] [facility] Differential cell count method Nom (Bld) Auto Normal [facility] Comment on above: Order Comment: Speci men Type: BLOOD SPECIMENOrdering Facility: [facility] Address: [address] [place] [address] Performed By: #### 5 7021-8 ####[facility] [id number] [place] [address] [place] Eosinophils (Bld) [#/Vol] 0.12 10*3/uL Normal <0.46 [facility] Comment on above: Order Comment: Speci men Type: BLOOD SPECIMENOrdering Facility: [facility] Address: [address] [place] [address] Performed By: #### 5 7021-8 ####[facility] S[facility]THLIA [id number] [place] [address] [place] Eosinophils/100 WBC (Bld) 1.6 % Normal [facility] Comment on above: Order Comment: Speci men Type: BLOOD SPECIMENOrdering Facility: [facility] Address: [address] [place] [address] Performed By: #### 5 7021-8 ####[facility] UNIQUE [id number] [place] [address] [place] Erythrocyte distribution width (RBC) [Ratio] 14.8 % Normal 11.5-15.0 [facility] Comment on above: Order Comment: Speci men Type: BLOOD SPECIMENOrdering Facility: [facility] Address: [address] [place] [address] Performed By: #### 5 7021-8 ####[facility] COLTMOOSICBRENTRupesh [id number] [place] [address] [place] Hematocrit (Bld) [Volume fraction] 39.4 % Normal 36.0-46.0 [facility] Comment on above: Order Comment: Speci men Type: BLOOD SPECIMENOrdering Facility: [facility] Address: [address] [place] [address] Performed By: #### 5 7021-8 ####[facility] [id number] [place] [address] [place] Hemoglobin (Bld) [Mass/Vol] 12.7 g/dL Normal 11.5-15.5 [facility] Comment on above: Order Comment: Speci men Type: BLOOD SPECIMENOrdering Facility: [facility] Address: [address] [place] [address] Performed By: #### 5 7021-8 ####[facility]PENELOPELIA [id number] [place] [address] [place] Immature granulocytes (Bld) [#/Vol] 10*3/uL Normal <0.10 [facility] Comment on above: Order Comment: Speci men Type: BLOOD SPECIMENOrdering Facility: [facility] Address: [address] [place] [address] Performed By: #### 5 7021-8 ####[facility] S[facility] [id number] [place] [address] [place] Immature granulocytes/100 WBC (Bld) 0.1 % Normal [facility] Comment on above: Order Comment: Speci men Type: BLOOD SPECIMENOrdering Facility: [facility] Address: [address] [place] [address] Performed By: #### 5 7021-8 ####[facility] [id number] [place] [address] [place] Lymphocytes (Bld) [#/Vol] 1.51 10*3/uL Normal 1.00-4.00 [facility] Comment on above: Order Comment: Speci men Type: BLOOD SPECIMENOrdering Facility: [facility] Address: [address] [place] [address] Performed By: #### 5 7021-8 ####[facility] [id number] [place] [address] [place] Lymphocytes/100 WBC (Bld) 20.4 % Normal [facility] Comment on above: Order Comment: Speci men Type: BLOOD SPECIMENOrdering Facility: [facility] Address: [address] [place] [address] Performed By: #### 5 7021-8 ####[facility] [id number] [place] [address] [place] MCH (RBC) [Entitic mass] 26.3 pg Normal 26.0-34.0 [facility] Comment on above: Order Comment: Speci men Type: BLOOD SPECIMENOrdering Facility: [facility] Address: [address] [place] [address] Performed By: #### 5 7021-8 ####[facility]CL[facility] [id number] [place] [address] [place] MCHC (RBC) [Mass/Vol] 32.2 g/dL Normal 30.5-36.0 [facility] Comment on above: Order Comment: Speci men Type: BLOOD SPECIMENOrdering Facility: [facility] Address: [address] [place] [address] Performed By: #### 5 7021-8 ####[facility] [id number] [place] [address] [place] MCV (RBC) [Entitic vol] 81.7 fL Normal 80.0-100.0 [facility] Comment on above: Order Comment: Speci men Type: BLOOD SPECIMENOrdering Facility: [facility] Address: [address] [place] [address] Performed By: #### 5 7021-8 ####[facility] [id number] [place] [address] [place] Monocytes (Bld) [#/Vol] 0.67 10*3/uL Normal <0.87 [facility] Comment on above: Order Comment: Speci men Type: BLOOD SPECIMENOrdering Facility: [facility] Address: [address] [place] [address] Performed By: #### 5 7021-8 ####[facility] [id number] [place] [address] [place] Monocytes/100 WBC (Bld) 9.1 % Normal [facility] Comment on above: Order Comment: Speci men Type: BLOOD SPECIMENOrdering Facility: [facility] Address: [address] [place] [address] Performed By: #### 5 7021-8 ####[facility] [id number] [place] [address] [place] Neutrophils (Bld) [#/Vol] 4.98 10*3/uL Normal 1.45-7.50 [facility] Comment on above: Order Comment: Speci men Type: BLOOD SPECIMENOrdering Facility: [facility] Address: [address] [place] [address] Performed By: #### 5 7021-8 ####[facility] [id number] [place] [address] [place] Neutrophils/100 WBC (Bld) 67.3 % Normal [facility] Comment on above: Order Comment: Speci men Type: BLOOD SPECIMENOrdering Facility: [facility] Address: [address] [place] [address] Performed By: #### 5 7021-8 ####[facility] [id number] [place] [address] [place] Nucleated RBC (Bld) [#/Vol] 10*3/uL Normal <0.01 [facility] Comment on above: Order Comment: Speci men Type: BLOOD SPECIMENOrdering Facility: [facility] Address: [address] [place] [address] Performed By: #### 5 7021-8 ####[facility] [id number] [place] [address] [place] Nucleated RBC/100 WBC (Bld) [Ratio] 0.0 /100 WBC Normal [facility] Comment on above: Order Comment: Speci men Type: BLOOD SPECIMENOrdering Facility: [facility] Address: [address] [place] [address] Performed By: #### 5 7021-8 ####[facility] [id number] [place] [address] [place] Platelet mean volume (Bld) [Entitic vol] 10.1 fL Normal 9.0-12.7 [facility] Comment on above: Order Comment: Speci men Type: BLOOD SPECIMENOrdering Facility: [facility] Address: [address] [place] [address] Performed By: #### 5 7021-8 ####[facility] [id number] [place] [address] [place] Platelets (Bld) [#/Vol] 269 10*3/uL Normal 150-400 [facility] Comment on above: Order Comment: Speci men Type: BLOOD SPECIMENOrdering Facility: [facility] Address: [address] [place] [address] Performed By: #### 5 7021-8 ####[facility] [id number] [place] [address] [place] RBC (Bld) [#/Vol] 4.82 10*6/uL Normal 3.90-5.20 [facility] Comment on above: Order Comment: Speci men Type: BLOOD SPECIMENOrdering Facility: [facility] Address: [address] [place] [address] Performed By: #### 5 7021-8 ####[facility] [id number] [place] [address] [place] WBC (Bld) [#/Vol] 7.40 10*3/uL Normal 3.70-11.00 [facility] Comment on above: Order Comment: Speci men Type: BLOOD SPECIMENOrdering Facility: [facility] Address: [address] [place] [address] Performed By: #### 5 7021-8 ####[facility] [id number] [place] [address] [place] Comprehensive metabolic 2000 panelon 05-09-2023 Albumin [Mass/Vol] 4.7 g/dL Normal 3.9-4.9 [facility] Comment on above: Order Comment: Speci men Type: BLOOD SPECIMENOrdering Facility: [facility] Address: [address] [place] [address] Performed By: #### 2 532-0, 07668-5 ####[facility]ITALDIANDRA [id number] [place] [address] [place] ALP [Catalytic activity/Vol] 64 U/L Normal 34-123 [facility] Comment on above: Order Comment: Speci men Type: BLOOD SPECIMENOrdering Facility: [facility] Address: [address] [place] [address] Performed By: #### 2 532-0, 07221-6 ####[facility] HOSPITALWNCLIA [id number] [place] [address] [place] ALT [Catalytic activity/Vol] 15 U/L Normal 7-38 [facility] Comment on above: Order Comment: Speci men Type: BLOOD SPECIMENOrdering Facility: [facility] Address: [address] [place] [address] Performed By: #### 2 532-0, 34474-3 ####[facility]CL[facility] [id number] [place] [address] [place] Anion gap [Moles/Vol] 10 mmol/L Normal 9-18 [facility] Comment on above: Order Comment: Speci men Type: BLOOD SPECIMENOrdering Facility: [facility] Address: [address] [place] [address] Performed By: #### 2 532-0, 52831-4 ####[facility] [id number] [place] [address] [place] AST [Catalytic activity/Vol] 24 U/L Normal 13-35 [facility] Comment on above: Order Comment: Speci men Type: BLOOD SPECIMENOrdering Facility: [facility] Address: [address] [place] [address] Performed By: #### 2 532-0, 00293-3 ####[facility]CL[facility] [id number] [place] [address] [place] Bilirubin [Mass/Vol] 0.2 mg/dL Normal 0.2-1.3 [facility] Comment on above: Order Comment: Speci men Type: BLOOD SPECIMENOrdering Facility: [facility] Address: [address] [place] [address] Performed By: #### 2 532-0, 55646-9 ####[facility] COLTDIANDRA [id number] [place] [address] [place] Calcium [Mass/Vol] 10.0 mg/dL Normal 8.5-10.2 [facility] Comment on above: Order Comment: Speci men Type: BLOOD SPECIMENOrdering Facility: [facility] Address: [address] [place] [address] Performed By: #### 2 532-0, 39197-7 ####[facility] [id number] [place] [address] [place] Chloride [Moles/Vol] 99 mmol/L Normal 97-105 [facility] Comment on above: Order Comment: Speci men Type: BLOOD SPECIMENOrdering Facility: [facility] Address: [address] [place] [address] Performed By: #### 2 532-0, ####[facility] [id number] [place] [address] [place] CO2 [Moles/Vol] 29 mmol/L Normal 22-30 [facility] Comment on above: Order Comment: Speci men Type: BLOOD SPECIMENOrdering Facility: [facility] Address: [address] [place] [address] Performed By: #### 2 532-0, ####[facility]PENELOPEL[facility] [id number] [place] [address] [place] Creatinine [Mass/Vol] 0.74 mg/dL Normal 0.58-0.96 [facility] Comment on above: Order Comment: Speci men Type: BLOOD SPECIMENOrdering Facility: [facility] Address: [address] [place] [address] Performed By: #### 2 532-0, ####[facility] H[facility]ITALWNCLIA [id number] [place] [address] [place] Creatinine and Glomerular filtration rate.predicted panel (S/P/Bld) 85 mL/min/1.73m??? Normal >=60 [facility] Comment on above: Order Comment: Negin parson Type: BLOOD SPECIMENOrdering Facility: [facility] Address: [address] [place] [address] Result Comment: Betsy mated Glomerular Filtration Rate (eGFR) is calculated using the 2020 CKD-EPI creatinine equation. This equation utilizes serum creatinine, sex, and age as parameters. The creatinine assay has traceable calibration to isotope dilution-mass spectrometry. Refer to KDIGO guidelines for clinical interpretation. In patients with unstable renal function, e.g. those with acute kidney injury, the eGFR may not accurately reflect actual GFR. Performed By: #### 2 532-0, 48675-3 ####[facility]CL[facility] [id number] [place] [address] [place] Glucose [Mass/Vol] 102 mg/dL High 74-99 [facility] Comment on above: Order Comment: Negin parson Type: BLOOD SPECIMENOrdering Facility: [facility] Address: [address] [place] [address] Result Comment: The [place] [employer] (ADA) provides guidance for cutoff values for fasting glucose and random glucose. The ADA defines fasting as no caloric intake for at least 8 hours. Fasting plasma glucose results between 100 to 125 mg/dL indicate increased risk for diabetes (prediabetes). Fasting plasma glucose results greater than or equal to 126 mg/dL meet the criteria for diagnosis of diabetes. In the absence of unequivocal hyperglycemia, results should be confirmed by repeat testing. In a patient with classic symptoms of hyperglycemia or hyperglycemic crisis, random plasma glucose results greater than or equal to 200 mg/dL meet the criteria for diagnosis of diabetes. Reference: Standards of Medical Care in Diabetes 2016, [place] [employer]. Diabetes Care. 2016.39(Suppl 1). Performed By: #### 2 532-0, 68626-0 ####[facility]CL[facility] [id number] [place] [address] [place] Potassium [Moles/Vol] 3.8 mmol/L Normal 3.7-5.1 [facility] Comment on above: Order Comment: Speci men Type: BLOOD SPECIMENOrdering Facility: [facility] Address: [address] [place] [address] Performed By: #### 2 532-0, 02837-8 ####[facility] [id number] [place] [address] [place] Protein [Mass/Vol] 7.6 g/dL Normal 6.3-8.0 [facility] Comment on above: Order Comment: Speci men Type: BLOOD SPECIMENOrdering Facility: [facility] Address: [address] [place] [address] Performed By: #### 2 532-0, 77867-2 ####[facility] [id number] [place] [address] [place] Sodium [Moles/Vol] 138 mmol/L Normal 136-144 [facility] Comment on above: Order Comment: Speci men Type: BLOOD SPECIMENOrdering Facility: [facility] Address: [address] [place] [address] Performed By: #### 2 532-0, 88575-5 ####[facility] [id number] [place] [address] [place] Urea nitrogen [Mass/Vol] 20 mg/dL Normal 7-21 [facility] Comment on above: Order Comment: Speci men Type: BLOOD SPECIMENOrdering Facility: [facility] Address: [address] [place] [address] Performed By: #### 2 532-0, 48241-1 ####[facility] [id number] [place] [address] [place] IMMUNOFIXATION SCREEN, SERUM on 05-09-2023 INTERPRETATION (MPA) Atypical restricted bands are present in the IgG and lambda regions. Consistent with IgG lambda monoclonal gammopathy. Normal [facility] Comment on above: Order Comment: Speci men Type: BLOOD SPECIMENOrdering Facility: [facility] Address: [address] [place] [address] Performed By: #### I FESC ####[facility] LABCLIA [id number] [address] [place] MPA RESULT M protein is present. Abnormal No M p rotein is identified. [facility] Comment on above: Order Comment: Speci men Type: BLOOD SPECIMENOrdering Facility: [facility] Address: [address] [place] [address] Performed By: #### I FES ####[facility] LABCLIA [id number] [address] [place] STAFF REVIEW ([facility]) Reviewed by Annabella Harris M.D., Ph.D Normal [facility] Comment on above: Order Comment: Speci men Type: BLOOD SPECIMENOrdering Facility: [facility] Address: [address] [place] [address] Performed By: #### I FES ####[facility] LABCLIA [id number] [place] [address] [place] IMMUNOGLOBULINS GAMon 2022 IgA [Mass/Vol] 145 mg/dL Normal 70-400 [facility] Comment on above: Order Comment: Speci men Type: BLOOD SPECIMENOrdering Facility: [facility] Address: [address] [place] [address] Performed By: #### S ERIM ####[facility] LABCLIA [id number] [place] [address] [place] IgG [Mass/Vol] 1270 mg/dL Normal 700-1600 [facility] Comment on above: Order Comment: Speci men Type: BLOOD SPECIMENOrdering Facility: [facility] Address: [address] [place], [place] [address] Performed By: #### S ERIMM ####[facility] LABCLIA [id number] [place] [address] [place] IgM [Mass/Vol] 66 mg/dL Normal 40-230 [facility] Comment on above: Order Comment: Speci men Type: BLOOD SPECIMENOrdering Facility: [facility] Address: [address] [place] [address] Performed By: #### S ERIMM ####[facility] LABCLIA [id number] [place] [address] [place] KAPPA/RAMOS,FREE,SERon 2022 Immunoglobulin light chains.kappa.free (S) [Mass/Vol] 18.7 mg/L Normal 3.3-19.4 [facility] Comment on above: Order Comment: Speci men Type: BLOOD SPECIMENOrdering Facility: [facility] Address: [address] [place] [address] Result Comment: Rare ly, increased serum free light chains levels may not be detected or accurately quantified due to prozone phenomenon or in high viscosity samples using this immunoturbidimetric assay. Correlation with other laboratory results and clinical findings is recommended. The [place] Free Light Chain was performed using the Binding Site Optilite immunoturbidimetric method. Result obtained with different assay methods or kits cannot be used interchangeably. Performed By: #### K LFRS ####[facility] LABIA [id number] [place] [address] [place] Immunoglobulin light chains.kappa/Immuno globulin light chains.lambda (S) [Mass ratio] 0.29 Normal 0.26-1.65 [facility] Comment on above: Order Comment: Speci men Type: BLOOD SPECIMENOrdering Facility: [facility] Address: [address] [place] [place] [address] Performed By: #### K LFRS ####[facility] LABCLIA [id number] [place] [address] [place] Immunoglobulin light chains.lambda.free [Mass/Vol] 63.4 mg/L High 5.7-26.3 [facility] Comment on above: Order Comment: Speci men Type: BLOOD SPECIMENOrdering Facility: [facility] Address: [address] [place] [address] Result Comment: Rare ly, increased serum free light chains levels may not be detected or accurately quantified due to prozone phenomenon or in high viscosity samples using this immunoturbidimetric assay. Correlation with other laboratory results and clinical findings is recommended. The Lambda Free Light Chain was performed using the Binding Site Optilite immunoturbidimetric method. Result obtained with different assay methods or kits cannot be used interchangeably. Performed By: #### K LFRS ####[facility] LABCLIA [id number] [place] [address] [place] LDH SerPl-cCncon 05-09-2023 LDH [Catalytic activity/Vol] 231 U/L High 135-214 [facility] Comment on above: Order Comment: Speci men Type: BLOOD SPECIMENOrdering Facility: [facility] Address: [address] [place] [address] Result Comment: Hemo lysis present. The origin of the hemolysis, in vitro versus an in vivo hemolytic process, cannot be distinguished via this assay alone. In vitro hemolysis may lead to non-physiological (spurious) elevation in lactate dehydrogenase (LDH) results. The result should be interpreted in context of the clinical setting and other test results. Suggest reorder as clinically indicated. Performed By: #### 2 532-0, 97539-1 ####[facility] [id number] [place] [address] [place] MONOCLONAL PROT UR W/INTERPo n 05-09-2023 INTERPRETATION (PA) Atypical restricted bands are present in the IgG and lambda regions. Consistent with IgG lambda monoclonal gammopathy. Normal [facility] Comment on above: Order Comment: Speci men Type: URINE SPECIMENOrdering Facility: [facility] Address: [address] [place] [address] Performed By: #### U RMPA ####[facility] LABCLIA [id number] [address] [place] STAFF REVIEW ([facility]) Reviewed by Annabella Harris M.D., Ph.D Normal [facility] Comment on above: Order Comment: Speci men Type: URINE SPECIMENOrdering Facility: [facility] Address: [address] [place] [place] [address] Performed By: #### U RMPA ####[facility] LABIA [id number] [place] [address] [place] UMPA RESULT M protein is present. Abnormal No M p rotein is identified. [facility] Comment on above: Order Comment: Speci men Type: URINE SPECIMENOrdering Facility: [facility] Address: [address] [place] [place] [address] Performed By: #### U RMPA ####[facility] [id number] [place] [address] [place] PROTEIN ELECTROPHORESIS SERU M (P)on 05-09-2023 Albumin [Mass/Vol] 4.46 g/dL Normal 3.43-5.41 [facility] Comment on above: Order Comment: Speci men Type: BLOOD SPECIMENOrdering Facility: [facility] Address: [address] [place] [address] Performed By: #### L [id number] ####[facility] LAB[facility] [id number] [place] [address] [place] Alpha 1 globulin Elph [Mass/Vol] 0.29 g/dL Normal 0.18-0.43 [facility] Comment on above: Order Comment: Speci men Type: BLOOD SPECIMENOrdering Facility: [facility] Address: [address] [place] [place] [address] Performed By: #### L [id number] ####[facility] LABIA [id number] [place] [address] [place] Alpha 2 globulin Elph [Mass/Vol] 0.77 g/dL Normal 0.42-0.98 [facility] Comment on above: Order Comment: Speci men Type: BLOOD SPECIMENOrdering Facility: [facility] Address: [address] [place] [address] Performed By: #### L [id number] ####[facility] LABCLIA [id number] [place] [address] [place] Beta globulin Elph [Mass/Vol] 0.86 g/dL Normal 0.61-1.17 [facility] Comment on above: Order Comment: Speci men Type: BLOOD SPECIMENOrdering Facility: [facility] Address: [address] [place] [address] Performed By: #### L [id number] ####[facility] LABIA [id number] [place] [address] [place] Gamma globulin Elph [Mass/Vol] 1.12 g/dL Normal 0.53-1.51 [facility] Comment on above: Order Comment: Speci men Type: BLOOD SPECIMENOrdering Facility: [facility] Address: [address] [place] [place] [address] Performed By: #### L [id number] ####[facility] LABIA [id number] [place] [address] [place] INTERPRETATION COMMENT FOR PROTEIN ELECTROPHORESIS See separate immunofixation report for characterization of monoclonal gammopathy. Normal [facility] Comment on above: Order Comment: Speci men Type: BLOOD SPECIMENOrdering Facility: [facility] Address: [address] [place] [address] Performed By: #### L [id number] ####[facility] LABIA [id number] [place] [address] [place] M-PROTEIN LOCATION Gamma Fraction 1 Normal [facility] Comment on above: Order Comment: Speci men Type: BLOOD SPECIMENOrdering Facility: [facility] Address: [address] [place] [address] Performed By: #### L [id number] ####[facility] LABIA [id number] [place] [address] [place] Protein Fractions [Interp] An M protein is identified on protein electrophoresis. Abnormal No definitive M protein is identified on protein electrophores is. [facility] Comment on above: Order Comment: Speci men Type: BLOOD SPECIMENOrdering Facility: [facility] Address: [address] [place] [address] Performed By: #### L [id number] ####[facility] LABIA [id number] [place] [address] [place] Protein.monoclonal Elph [Mass/Vol] 0.59 g/dL High <=0.00 [facility] Comment on above: Order Comment: Speci men Type: BLOOD SPECIMENOrdering Facility: [facility] Address: [address] [place] [address] Performed By: #### L [id number] ####[facility] [id number] [place] [address] [place] SPE STAFF REVIEW Reviewed by Annabella Harris M.D., Ph.D Normal [facility] Comment on above: Order Comment: Speci men Type: BLOOD SPECIMENOrdering Facility: [facility] Address: [address] [place] [address] Performed By: #### L [id number] ####[facility] [id number] [place] [address] [place] Prot SerPl-mCncon 05-09-2023 Protein [Mass/Vol] 7.5 g/dL Normal 6.3-8.0 [facility] Comment on above: Order Comment: Speci men Type: BLOOD SPECIMENOrdering Facility: [facility] Address: [address] [place] [address] Performed By: #### 2 885-2, 1951-06 ####[facility] LABIA [id number] [address] [place] Prot Ur-mCncon 05-09-2023 Protein (U) [Mass/Vol] 19 mg/dL Normal 0-20 [facility] Comment on above: Order Comment: Speci men Type: URINE SPECIMENOrdering Facility: [facility] Address: [address] [place] [address] Performed By: #### 2 888-6 ####[facility] LABIA [id number] [place] [address] [place] URINE PROTEIN ELECTROPHORESI S RANDOM (P)on 05-09-2023 Albumin Elph (U) [Mass fraction] 60.49 % Normal [facility] Comment on above: Order Comment: Speci men Type: URINE SPECIMENOrdering Facility: [facility] Address: [address] [place] [address] Performed By: #### L [id number] ####[facility] LABIA [id number] [address] [place] Alpha 1 globulin Elph (U) [Mass fraction] 3.35 % Normal [facility] Comment on above: Order Comment: Speci men Type: URINE SPECIMENOrdering Facility: [facility] Address: [address] [place] [address] Performed By: #### L [id number] ####[facility] LABIA [id number] [place] [address] [place] Alpha 2 globulin Elph (U) [Mass fraction] 11.43 % Normal [facility] Comment on above: Order Comment: Speci men Type: URINE SPECIMENOrdering Facility: [facility] Address: [address] [place] [address] Performed By: #### L [id number] ####[facility] LABCLIA [id number] [place] [address] [place] Beta globulin Elph (U) [Mass fraction] 16.08 % Normal [facility] Comment on above: Order Comment: Speci men Type: URINE SPECIMENOrdering Facility: [facility] Address: [address] [place] [address] Performed By: #### L [id number] ####[facility] LABIA [id number] [place] [address] [place] Gamma globulin Elph (U) [Mass fraction] 8.65 % Normal [facility] Comment on above: Order Comment: Speci men Type: URINE SPECIMENOrdering Facility: [facility] Address: [address] [place] [address] Performed By: #### L [id number] ####[facility] LABIA [id number] [address] [place] INTERPRETATION COMMENT FOR PROTEIN ELECTROPHORESIS See separate immunofixation report for characterization of monoclonal gammopathy. Normal [facility] Comment on above: Order Comment: Speci men Type: URINE SPECIMENOrdering Facility: [facility] Address: [address] [place] [place] [address] Performed By: #### L [id number] ####[facility] LABIA [id number] [place] [address] [place] Protein Fractions Elph Kike (U) [Interp] An M protein is identified on protein electrophoresis. Abnormal No definitive M protein is identified on protein electrophores is. [facility] Comment on above: Order Comment: Speci men Type: URINE SPECIMENOrdering Facility: [facility] Address: [address] [place] [address] Performed By: #### L [id number] ####[facility] LABIA [id number] [address] OF [place] STAFF REVIEW (URINE ELECTRO) Reviewed by Annabella Harris M.D., Ph.D Normal [facility] Comment on above: Order Comment: Speci men Type: URINE SPECIMENOrdering Facility: [facility] Address: [address] [place] [address] Performed By: #### L [id number] ####[facility] LABIA [id number] [address] [address] [place] XR BONE SURVEY ROUTINEon XR BONE SURVEY ROUTINE * * *Final Report* * * DATE OF EXAM: May 09 2023 9:19AM [id number] - XR BONE SURVEY ROUTINE / PROCEDURE REASON: Monoclonal gammopathy * * * * Physician Interpretation * * * * EXAMINATION: XR BONE SURVEY ROUTINE CLINICAL HISTORY: Monoclonal gammopathy Technique: XR BONE SURVEY ROUTINE -- NOT APPLICABLE with 19 views on 18 images Comparison: Skeletal survey 05/02/2022 RESULT: Skull: No lytic lesion. Paranasal sinuses appear clear. Cervical, thoracic and lumbar spine: No acute fracture or destructive osseous lesion. Again noted is dextroscoliosis of the thoracic spine. Unchanged position of spinal hardware. Multilevel degenerative disc disease. Anterolisthesis of L5 on S1. Chest and ribs: Lungs appear clear. No rib fracture or lytic lesion. Pelvis: No acute fracture or lytic lesion Upper and lower extremities: No acute fracture or lytic lesion. Degenerative disease of bilateral knees. IMPRESSION: No acute fracture or destructive osseous lesion Information Assoc: [facility] Transcribe Date/Time: May 11 2023 10:23A Dictated by : DI ANGELES MD This examination was interpreted and the report reviewed and electronically signed by: DI ANGELES MD on May 11 2023 10:48AM EST [id number] Normal [facility] CNOVon 03-30-2023 CNOV Office Visit (PULMWS ) VANDANA MITCHELL ([id number]) 1950 F NFR Date Time Provider Department 03/30/23 10:00 AM NAIN CAMPBELL During your visit today, we recorded the following information about you: Pulse Blood pressure Weight 84/minute 154/78 52.4 kg Nain Campbell MD 03/30/2023 1:55 PM Signed . Respiratory Milner Note Patient name: Vandana Mitchell PCP: Markus Rascon MD CC: Follow-up lung disease HPI: Vandana Mitchell 72 year old female non-smoker with PMH significant for HTN, MGUS, HOCM, restrictive 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, and asthma. Diagnosed clinically with asthma, unable to perform CARL due to her baseline severe restriction and patient unable to perform Jeannette. Current treatment with Symbicort and as needed albuterol. Today she states she has been doing fairly well. No recent upper respiratory infections or need for hospitalization. She states that she has persistent osteoporosis despite her Prolia injections and is somewhat concerned about use of her inhaled corticosteroid. She had previously tried to decrease her dosing to once daily but had nocturnal symptoms so is reluctant to decrease her dose back to once daily. She could decrease the amount of inhaled corticosteroid by changing to Symbicort 80/4.5. Although there is systemic resorption from inhaled corticosteroids, risk of osteoporosis increases with daily dosing of budesonide above 800 mcg. Main symptoms consist of dyspnea. She denies chronic cough, wheezing, chest pain. Rare need for albuterol. ASTHMA CONTROL TEST Date: 03/30/2023 In the last 4 weeks, how much of the time did your asthma keep you from getting as much done at work or home that you wanted to do? A little of the time (4) In the last 4 weeks, how often have you had shortness of breath? Once or twice per week (4) In the last 4 weeks, how often did your asthma symptoms (wheezing, coughing, shortness of breath, chest tightness or pain) wake you up at night or earlier than usual? Once or twice (4) In the last 4 weeks, how often have you used your rescue inhaler or nebulizer medication (such as Albuterol, Proventil, Ventolin, Maxair, Xoponex, or Primatene Mist)? Once a week or less (4) In the last 4 weeks, how would you rate your asthma control? Well controlled (4) Total: more than 20 PAST MEDICAL HISTORY Diagnosis Date Arthritis Diastolic dysfunction Grade I Disorder of bone and cartilage, unspecified Diverticulosis 2009 colonoscopy History of transfusion HOCM (hypertrophic obstructive cardiomyopathy) (HCC) Insomnia, unspecified Melanocytic Nevocellular Nevi pigmented moles of trunk: back mainly 08/02/2011 Mitral valve disorders Monoclonal gammopathy 04/2017 Other diseases of lung, not elsewhere classified restrictive lung disease Other pulmonary embolism and infarction 07/25/2012 ? had pe with normal d dimer. saw pulmonary. not convinced she did have one. Renal cyst Small airways disease Possible asthma. Patient unable to perform definitive test Unspecified essential hypertension ALLERGIES Allergen Reactions Amoxicillin Rash Asa [Salicylates] Swelling lip swelling Diclofenac Shortness of Breath Iodine Shortness of Breath Monistat 1 [Tiocona* Other: See Comments Burning Shell Fish [Other] Anaphylaxis Metoprolol Intolerance SOB budesonide-formoterol (SYMBICORT) 160-4.5 mcg/actuation inhaler Inhale 2 Puffs as instructed twice daily. dilTIAZem CD (CARDIZEM CD) 180 mg 24 hr capsule Take 1 capsule by mouth once daily. calcium citrate (CITRACAL ORAL) Take by mouth. clindamycin (CLEOCIN T) 1 % gel Apply to affected area once daily. denosumab (PROLIA) 60 mg/mL Inject subcutaneously once every 6 months. albuterol HFA (VENTOLIN HFA) 90 mcg/actuation inhaler Inhale 2 Puffs as instructed every 4 hours as needed for wheezing/shortness of breath. melatonin 3 mg tablet Take 3 mg by mouth. qhs acetaminophen 325 mg cap Take by mouth as needed. MULTIVITAMIN ORAL Take 1 tablet by mouth once daily. Social History Tobacco Use Smoking status: Never Smokeless tobacco: Never Tobacco comments: Father smoked in childhood home. Spouse does not smoke. Vaping Use Vaping Use: Never used Substance Use Topics Alcohol use: Yes Alcohol/week: 1.7 standard drinks of alcohol Comment: Occasionally. Drug use: No PMH, Social history, family history and surgical history reviewed and updated in EMR REVIEW OF SYSTEMS: CONSTITUTIONAL: No fevers, chills, nightsweats. Some weight loss HEENT: Denies nasal congestion/sinus symptoms,allergy problems. CARDIOVASCULAR: No chest pain, palpitations, orthopnea, PND, edema. PULM: See HPI GI: No dysphagia/odynophagia, problematic reflux NEURO: No new balance problems, peripheral weakness/paresthesias or numbness of concern. INTEGUMEN (more content not included)... Normal [facility] DXA-AXIAL SKELETONon 023 [facility] CBC W Auto Differential pane l (Bld)on 09-16-2022 Basophils (Bld) [#/Vol] 0.11 10*3/uL High <0.11 k/uL [facility] Basophils/100 WBC (Bld) 1.3 % [facility] Differential cell count method Nom (Bld) Auto [facility] Eosinophils (Bld) [#/Vol] 0.08 10*3/uL <0.46 k/uL [facility] Eosinophils/100 WBC (Bld) 0.9 % [facility] Erythrocyte distribution width (RBC) [Ratio] 14.3 % 11.5 - 15.0 % [facility] Hematocrit (Bld) [Volume fraction] 42.6 % 36.0 - 46.0 % [facility] Hemoglobin (Bld) [Mass/Vol] 13.3 g/dL 11.5 - 15.5 g/dL [facility] Immature granulocytes (Bld) [#/Vol] 0.03 10*3/uL <0.10 k/uL [facility] Immature granulocytes/100 WBC (Bld) 0.4 % [facility] Lymphocytes (Bld) [#/Vol] 1.42 10*3/uL 1.00 - 4.00 k/uL [facility] Lymphocytes/100 WBC (Bld) 16.8 % [facility] MCH (RBC) [Entitic mass] 26.3 pg 26.0 - 34.0 pg [facility] MCHC (RBC) [Mass/Vol] 31.2 g/dL 30.5 - 36.0 g/dL [facility] MCV (RBC) [Entitic vol] 84.4 fL 80.0 - 100.0 fL [facility] Monocytes (Bld) [#/Vol] 0.62 10*3/uL <0.87 k/uL [facility] Monocytes/100 WBC (Bld) 7.3 % [facility] Neutrophils (Bld) [#/Vol] 6.19 10*3/uL 1.45 - 7.50 k/uL [facility] Neutrophils/100 WBC (Bld) 73.3 % [facility] Nucleated RBC (Bld) [#/Vol] <0.01 k/uL [facility] Nucleated RBC/100 WBC (Bld) [Ratio] 0.0 /100 WBC [facility] Platelet mean volume (Bld) [Entitic vol] 11.2 fL 9.0 - 12.7 fL [facility] Platelets (Bld) [#/Vol] 289 10*3/uL 150 - 400 k/uL [facility] RBC (Bld) [#/Vol] 5.05 10*6/uL 3.90 - 5.2 0 m/uL [facility] WBC (Bld) [#/Vol] 8.45 10*3/uL 3.70 - 11. 00 k/uL [facility] Reagin and Treponema pallidu m IgG and IgM [Interp]on 09-16-2022 Syphilis Interpretation Cannot exclude recent Treponemal infection if specimen collected within 7-10 days after appearance of suspect lesions or 2-3 weeks after an exposure. Clinical correlation is required. [facility] T. pallidum IgG+IgM IA Ql (S) Non-Reactive Nonreactive [facility] VITAMIN D 25 HYDROXYon 09-16 25-hydroxyvitamin D3 [Mass/Vol] 50.3 ng/mL 31.0 - 80.0 ng/mL [facility] CNPNon 07-14-2022 CNPN Telephone (AGCARDPOB ) VANDANA MITCHELL ([id number]) 1950 F NFR Date Time Provider Department 07/14/22 CLARY NOLASCO AGCARDPOB During your visit today, we recorded the following information about you: Shanita Alston LPN 07/14/2022 10:16 AM Signed Clearance form [facility] of [place]. Form placed in Dr. Nolasco's door box, form also scanned in. Shanita Alston LPN Allergies As of Date: 07/14/2022 Noted Allergy Reaction AMOXICILLIN 04/22/2005 2 - Rash ASA (SALICYLATES) 04/22/2005 7 - Swelling Comments: lip swelling DICLOFENAC 02/21/2006 12 - Shortness of Breath IODINE 04/22/2005 12 - Shortness of Breath MONISTAT 1 (TIOCONAZOLE) 04/22/2005 14 - Other: See Comments Comments: Burning shell fish [Other] 04/22/2005 10 - Anaphylaxis METOPROLOL 11/09/2018 5 - Intolerance Comments: SOB Date Reviewed: 05/16/2022 Reviewed by: Clary Nolasco MD - Fully Assessed Reason for Visit: Cardiac Clearance [4105] Prescriptions as of 02/14/2023 - budesonide-formoterol (SYMBICORT) 160-4.5 mcg/actuation inhaler Inhale 2 Puffs as instructed twice daily. - dilTIAZem CD (CARDIZEM CD) 180 mg 24 hr capsule Take 1 capsule by mouth once daily. - calcium citrate (CITRACAL ORAL) Take by mouth. - clindamycin (CLEOCIN T) 1 % gel Apply to affected area once daily. - denosumab (PROLIA) 60 mg/mL Inject subcutaneously once every 6 months. - albuterol HFA (VENTOLIN HFA) 90 mcg/actuation inhaler Inhale 2 Puffs as instructed every 4 hours as needed for wheezing/shortness of breath. - melatonin 3 mg tablet Take 3 mg by mouth. qhs - acetaminophen 325 mg cap Take by mouth as needed. - MULTIVITAMIN ORAL Take 1 tablet by mouth once daily. 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]01/09/2011 Family history of colon cancer [Z80.0] 07/06/2011 Bursitis of right shoulder [M75.51] 10/10/2011 08/09/2018 Osteoporosis [M81.0] 10/10/2011 Psychophysiological insomnia [F51.04] 10/26/2011 Multinodular thyroid [E04.2] 10/27/2011 Other pulmonary embolism and infarction (HCC) [*07/25/2012 07/21/2016 Complete uterovaginal prolapse [N81.3] 01/09/2015 03/30/2016 Pelvic muscle wasting [N81.84] 01/09/2015 08/09/2018 Postmenopausal atrophic vaginitis [N95.2] 01/09/2015 Muscle weakness [M62.81] 02/16/2015 07/21/2016 Restrictive 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 *07/31/2015 Incomplete uterovaginal prolapse [N81.2] 04/05/2016 Monoclonal gammopathy [D47.2] 03/30/2017 Hypercalcemia [E83.52] 08/09/2018 Mitral valve prolapse [I34.1] 08/09/2018 Bilateral carotid artery stenosis [I65.23] 08/09/2018 Obstructive cardiomyopathy (HCC) [I42.8] 01/28/2019 Precordial pain [R07.2] 01/28/2019 Dyspnea on exertion [R06.09] 05/31/2019 SVT (supraventricular tachycardia) ([facility]) [I47.1]01/14/2020 Screening for colon cancer [Z12.11] 09/24/2020 09/24/2020 Murmur [R01.1] 10/05/2020 09/16/2021 HOCM (hypertrophic obstructive cardiomyopathy) *10/05/2020 Age-related osteoporosis without current pathol*09/10/2021 Closed fracture of distal radius and ulna [S52.*03/18/2022 Cyst of kidney, acquired [N28.1] 02/18/2022 Greater trochanteric bursitis [M70.60] 03/18/2022 Normal pelvic exam [Z01.419] 01/24/2017 Mild intermittent asthma without complication [*03/22/2022 Encounter Status:Closed by SHANITA ALSTON on 02/14/23 Normal [facility] US KIDNEY/BLADDERon 01-28-20 Radiology Result ACTIONABLE Abnormal [facility] CBC W Auto Differential pane l (Bld)on 10-12-2021 Abs Immature Gran 0.04 k/uL <0.10 k/uL [facility] Basophils (Bld) [#/Vol] 0.11 10*3/uL High <0.11 k/uL [facility] Basophils/100 WBC (Bld) 1.0 % [facility] Differential cell count method Nom (Bld) Auto [facility] Eosinophils (Bld) [#/Vol] 0.09 10*3/uL <0.46 k/uL [facility] Eosinophils/100 WBC (Bld) 0.9 % [facility] Erythrocyte distribution width (RBC) [Ratio] 15.4 % High 11.5 - 15.0 % [facility] Hematocrit (Bld) [Volume fraction] 43.6 % 36.0 - 46.0 % [facility] Hemoglobin (Bld) [Mass/Vol] 13.5 g/dL 11.5 - 15.5 g/dL [facility] Immature Gran % 0.4 % [facility] Lymphocytes (Bld) [#/Vol] 1.55 10*3/uL 1.00 - 4.00 k/uL [facility] Lymphocytes/100 WBC (Bld) 14.7 % [facility] MCH (RBC) [Entitic mass] 26.3 pg 26.0 - 34.0 pg [facility] MCHC (RBC) [Mass/Vol] 31.0 g/dL 30.5 - 36.0 g/dL [facility] MCV (RBC) [Entitic vol] 84.8 fL 80.0 - 100.0 fL [facility] Monocytes (Bld) [#/Vol] 1.11 10*3/uL High <0.87 k/uL [facility] Monocytes/100 WBC (Bld) 10.5 % [facility] Neutrophils (Bld) [#/Vol] 7.66 10*3/uL High 1.45 - 7.50 k/uL [facility] Neutrophils/100 WBC (Bld) 72.5 % [facility] Nucleated RBC (Bld) [#/Vol] 10*3/uL <0.01 k/uL [facility] Nucleated RBC/100 WBC (Bld) [Ratio] 0.0 /100 WBC [facility] Platelet mean volume (Bld) [Entitic vol] 11.0 fL 9.0 - 12.7 fL [facility] Platelets (Bld) [#/Vol] 301 10*3/uL 150 - 400 k/uL [facility] RBC (Bld) [#/Vol] 5.14 10*6/uL 3.90 - 5.2 0 m/uL [facility] WBC (Bld) [#/Vol] 10.56 10*3/uL 3.70 - 11 .00 k/uL [facility] XR HIP GENERAL 3V PELV/AP/LA T RIGHTon 09-16-2021 [facility] XR Pelvis and Hip - right AP and Lateral frogon 09-16-2021 IMPRESSION: Mild right hip osteoarthritis. No acute osseous findings. Information Assoc: [facility] Transcribe Date/Time: Sep 16 2021 2:10P Dictated by : PANFILO PITTS MD This examination was interpreted and the report reviewed and electronically signed by: PANFILO PITTS MD on Sep 16 2021 2:16PM EST [email or web address] E_DIVISION OF RADIOLOGY * * *Final Report* * * DATE OF EXAM: Sep 16 2021 11:02AM WOX 5352 - XR HIP 3V PELV+ AP/LAT RT / PROCEDURE REASON: Hip pain, right * * * * Physician Interpretation * * * * EXAMINATION: XR HIP 3V PELV+ AP/LAT RT CLINICAL HISTORY: Right lateral to posterior hip pain x 1 week without injury Hip pain, right Technique: XR HIP 3V PELV+ AP/LAT RT -- RIGHT with 3 views on 3 images Comparison: None RESULT: No fracture or dislocation. Mild degenerative changes with inferomedial joint space narrowing and small osteophytes. No erosions or chondrocalcinosis. SI joints and pubic symphysis are intact. Postsurgical and degenerative changes in the lower lumbar spine. [email or web address] E_DIVISION OF RADIOLOGY [facility] * * *Final Report* * * DATE OF EXAM: Sep 16 2021 11:02AM WOX 5352 - XR HIP 3V PELV+ AP/LAT RT / PROCEDURE REASON: Hip pain, right * * * * Physician Interpretation * * * * EXAMINATION: XR HIP 3V PELV+ AP/LAT RT CLINICAL HISTORY: Right lateral to posterior hip pain x 1 week without injury Hip pain, right Technique: XR HIP 3V PELV+ AP/LAT RT -- RIGHT with 3 views on 3 images Comparison: None RESULT: No fracture or dislocation. Mild degenerative changes with inferomedial joint space narrowing and small osteophytes. No erosions or chondrocalcinosis. SI joints and pubic symphysis are intact. Postsurgical and degenerative changes in the lower lumbar spine. IMPRESSION IMPRESSION: Mild right hip osteoarthritis. No acute osseous findings. Information Assoc: ABHIJIT Transcribe Date/Time: Sep 16 2021 2:10P Dictated by : PANFILO PITTS MD This examination was interpreted and the report reviewed and electronically signed by: PANFILO PITTS MD on Sep 16 2021 2:16PM EST [facility] Radiology Study observation (narrative) [facility] XR Pelvis and Hip - right AP and Lateral frogOrdered By: Ccf Provider on 09-16-2021 [facility] [address] SHOULDER WO IVCON LTon [facility] XR Shoulder - left 3 Viewson 09-07-2021 IMPRESSION: 1. No acute bony process. 2. Radiographic changes which can be seen in association with rotator cuff tendonopathy/tear. Information Assoc: [facility] Transcribe Date/Time: Sep 07 2021 4:53P Dictated by : HERNANDEZ FULLER MD This examination was interpreted and the report reviewed and electronically signed by: HERNANDEZ FULLER MD on Sep 07 2021 4:57PM [facility] DIVISION OF RADIOLOGY * * *Final Report* * * DATE OF EXAM: Sep 07 2021 4:43PM WOX 5252 - XR SHLDR >/=3V AP/EMERALD AP/OTHR LT / PROCEDURE REASON: Acute pain of left shoulder * * * * Physician Interpretation * * * * EXAMINATION: XR SHLDR >/=3V AP/EMERALD AP/OTHR LT HISTORY: Acute left shoulder pain. TECHNIQUE: XR SHLDR >/=3V AP/EMERALD AP/OTHR LT Laterality: LEFT Number of different views (projections): 3 M: XB_1 COMPARISON: There are no prior relevant shoulder examinations available for comparison within the [facility] Imaging Archives. Comparison is made to bone survey dated March. RESULT: 3 views of the left shoulder show no acute osseous, articular or soft tissue abnormality. There is degenerative change of the left AC joint with periarticular osteophytosis. There are bony reactive changes of the greater tuberosity with mild narrowing of the acromiohumeral distance. These findings can be seen in association with rotator cuff tendonopathy/tear. Glenohumeral joint is preserved. Tiny 3 x 1 mm ossific density is seen along the inferior glenohumeral joint which could be articular calcification. The visualized lung is clear. DIVISION OF RADIOLOGY Provider, Concha ellis Milner - 09/07/2021 * * *Final Report* * * DATE OF EXAM: Sep 07 2021 4:43PM WOX 5252 - XR SHLDR >/=3V AP/EMERALD AP/OTHR LT / PROCEDURE REASON: Acute pain of left shoulder * * * * Physician Interpretation * * * * EXAMINATION: XR SHLDR >/=3V AP/EMERALD AP/OTHR LT HISTORY: Acute left shoulder pain. TECHNIQUE: XR SHLDR >/=3V AP/EMERALD AP/OTHR LT Laterality: LEFT Number of different views (projections): 3 M: XB_1 COMPARISON: There are no prior relevant shoulder examinations available for comparison within the [facility] Imaging Archives. Comparison is made to bone survey dated March. RESULT: 3 views of the left shoulder show no acute osseous, articular or soft tissue abnormality. There is degenerative change of the left AC joint with periarticular osteophytosis. There are bony reactive changes of the greater tuberosity with mild narrowing of the acromiohumeral distance. These findings can be seen in association with rotator cuff tendonopathy/tear. Glenohumeral joint is preserved. Tiny 3 x 1 mm ossific density is seen along the inferior glenohumeral joint which could be articular calcification. The visualized lung is clear. IMPRESSION IMPRESSION: 1. No acute bony process. 2. Radiographic changes which can be seen in association with rotator cuff tendonopathy/tear. Information Assoc: [facility] Transcribe Date/Time: Sep 07 2021 4:53P Dictated by : HERNANDEZ FULLER MD This examination was interpreted and the report reviewed and electronically signed by: HERNANDEZ FULLER MD on Sep 07 2021 4:57PM EST [facility] Radiology Study observation (narrative) [facility] XR Shoulder - left 3 ViewsOr dered By: Ccf Provider on 09-07-2021 [facility] XR Chest PA and Lateralon IMPRESSION: No acute radiographic abnormality. Information Assoc: ABHIJIT Transcribe Date/Time: Nov 24 2020 3:02P Dictated by : MADAY HUYNH MD This examination was interpreted and the report reviewed and electronically signed by: MADAY HUYNH MD on Nov 24 2020 3:05PM [facility] DIVISION OF RADIOLOGY * * *Final Report* * * DATE OF EXAM: Nov 24 2020 2:56PM WOX 5291 - XR CHEST 2V FRONTAL/LAT / PROCEDURE REASON: multiple diagnoses * * * * Physician Interpretation * * * * EXAMINATION: CHEST RADIOGRAPH (2 VIEW FRONTAL & LATERAL) CLINICAL HISTORY: SOB (shortness of breath) Leg swelling MQ: XC2_6 EXAM DATE/TIME: 11/24/2020 2:56 PM COMPARISON: Chest x-ray on 11/12/2018. RESULT: Lines, tubes, and devices: None. Lungs and pleura: No consolidation. No lung mass. No pleural effusion. No pneumothorax. Cardiomediastinal silhouette: Stable cardiac silhouette and mediastinal contour. Bones and soft tissues: Dextroscoliosis of the thoracic spine is again demonstrated, with Lozada vamshi and hooks. There appears to be hook inferiorly. Ossification of the ligament noted. DIVISION OF RADIOLOGY Provider, [facility] - 11/24/2020 * * *Final Report* * * DATE OF EXAM: Nov 24 2020 2:56PM WOX 5291 - XR CHEST 2V FRONTAL/LAT / PROCEDURE REASON: multiple diagnoses * * * * Physician Interpretation * * * * EXAMINATION: CHEST RADIOGRAPH (2 VIEW FRONTAL & LATERAL) CLINICAL HISTORY: SOB (shortness of breath) Leg swelling MQ: XC2_6 EXAM DATE/TIME: 11/24/2020 2:56 PM COMPARISON: Chest x-ray on 11/12/2018. RESULT: Lines, tubes, and devices: None. Lungs and pleura: No consolidation. No lung mass. No pleural effusion. No pneumothorax. Cardiomediastinal silhouette: Stable cardiac silhouette and mediastinal contour. Bones and soft tissues: Dextroscoliosis of the thoracic spine is again demonstrated, with Lozada vamshi and hooks. There appears to be hook inferiorly. Ossification of the ligament noted. IMPRESSION IMPRESSION: No acute radiographic abnormality. Information Assoc: ABHIJIT Transcribe Date/Time: Nov 24 2020 3:02P Dictated by : MADAY HUYNH MD This examination was interpreted and the report reviewed and electronically signed by: MADAY HUYNH MD on Nov 24 2020 3:05PM EST [facility] Radiology Study observation (narrative) [facility] XR Chest PA and LateralOrder ed By: Ccf Provider on 11-24-2020 [facility] Office Visit: est annualon 0 01-24-2017 Documentation of current medications (procedure) Done Invalid Interpretation Code [facility] Fall risk assessment No Invalid Interpretation Code [facility] Hemoglobin presence in stool not done Invalid Interpretation Code [facility] Tobacco smoking status NHIS Never Invalid Interpretation Code [facility] Tobacco use [facility] Never smoker Invalid Interpretation Code [facility] 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 Tobacco use [facility] Never smoker Invalid Interpretation Code [place] [employer] [facility] Work Phone: Office Visit: est annualon 0 11-03-2016 Breast Mammogram screening Normal Bilateral Invalid Interpretation Code [facility] Office Visit: est annualon 0 11-04-2015 General categories [Interpretation] of Cervical or vaginal smear or scraping by Cyto stain Normal Invalid Interpretation Code [facility] Vital Signs Date Time Vital Sign Value Performing Clinician Jhony rossi 03-21-2024 12:37-0400 Diastolic blood pressure 80 mm[Hg] Daryl Hamlin MD Work Phone: [facility] 03-21-2024 12:37-0400 Heart rate 81 /min Daryl Hamlin MD Work Phone: [facility] 03-21-2024 12:37-0400 Respiratory rate 16 /min Daryl Hamlin MD Work Phone: [facility] 03-21-2024 12:37-0400 SaO2% (BldA) [Mass fraction] 93 % Daryl Hamlin MD Work Phone: [facility] 03-21-2024 12:37-0400 Systolic blood pressure 161 mm[Hg] Daryl Hamlin MD Work Phone: [facility] 03-21-2024 10:56-0400 Body temperature 97.59 [degF] Daryl Hamlin MD Work Phone: [facility] 03-12-2024 10:26-0400 Body mass index (BMI) [Ratio] 19.74 kg/m2 Debbie Constantino [employer] ENGINEER.[employer]ST[employer] SHOWMAN Work Phone: [facility] 03-12-2024 10:26-0400 Body weight 49.44 kg Debbie Constantino [employer] ENGINEER.[employer]ST[employer] SHOWMAN Work Phone: [facility] 03-12-2024 10:26-0400 Diastolic blood pressure 86 mm[Hg] Debbie Constantino PLC ENGINEER.[employer]ST[employer] SHOWMAN Work Phone: [facility] 03-12-2024 10:26-0400 Heart rate 86 /min Debbie Constantino PLC ENGINEER.[employer]IVEST[employer] SHOWMAN Work Phone: [facility] 03-12-2024 10:26-0400 Respiratory rate 16 /min Debbie Constantino PLC ENGINEER.LIVESTOCK SHOWMAN Work Phone: [facility] 03-12-2024 10:26-0400 SaO2% (BldA) [Mass fraction] 95 % Debbie Constantino [employer] ENGINEER.LIVESTOCK SHOWMAN Work Phone: [facility] 03-12-2024 10:26-0400 Systolic blood pressure 148 mm[Hg] Debbie Constantino PLC ENGINEER.LIVESTOCK SHOWMAN Work Phone: [facility] 03-05-2024 10:54-0400 Body height 158.2 cm Daryl Hamlin MD Work Phone: [facility] 03-05-2024 10:54-0400 Body mass index (BMI) [Ratio] 19.93 kg/m2 Daryl Hamlin MD Work Phone: [facility] 03-05-2024 10:54-0400 Body weight 49.9 kg Daryl Hamlin MD Work Phone: [facility] 03-05-2024 10:54-0400 Diastolic blood pressure 82 mm[Hg] Daryl Hamlin MD Work Phone: [facility] 03-05-2024 10:54-0400 Heart rate 91 /min Daryl Hamlin MD Work Phone: [facility] 03-05-2024 10:54-0400 SaO2% (BldA) [Mass fraction] 98 % Daryl Hamlin MD Work Phone: [facility] 03-05-2024 10:54-0400 Systolic blood pressure 189 mm[Hg] Daryl Hamlin MD Work Phone: [facility] 02-12-2024 18:21-0400 Body mass index (BMI) [Ratio] 19.65 kg/m2 Markus Rascon MD Work Phone: [facility] 02-12-2024 18:21-0400 Body weight 49.2 kg Markus Rascon MD Work Phone: [facility] 02-12-2024 18:21-0400 Diastolic blood pressure 84 mm[Hg] Markus Rascon MD Work Phone: [facility] 02-12-2024 18:21-0400 Heart rate 93 /min Markus Rascon MD Work Phone: [facility] 02-12-2024 18:21-0400 SaO2% (BldA) [Mass fraction] 94 % Markus Rascon MD Work Phone: [facility] 02-12-2024 18:21-0400 Systolic blood pressure 161 mm[Hg] Markus Rascon MD Work Phone: [facility] 02-06-2024 14:25-0400 Diastolic blood pressure 77 mm[Hg] Marie Alston MD Work Phone: [facility] 02-06-2024 14:25-0400 Systolic blood pressure 172 mm[Hg] Marie Alston MD Work Phone: [facility] 02-06-2024 13:55-0400 Heart rate 78 /min Marie Alston MD Work Phone: [facility] 01-03-2024 10:38-0400 Body height 157.5 cm Leandro Chery MD [facility] 01-03-2024 10:38-0400 Body mass index (BMI) [Ratio] 19.94 kg/m2 Leandro Chery MD Work Phone: [facility] 01-03-2024 10:38-0400 Body weight 49.44 kg Leandro Chery MD Work Phone: [facility] 01-03-2024 10:38-0400 Diastolic blood pressure 83 mm[Hg] Leandro Chery MD Work Phone: [facility] 01-03-2024 10:38-0400 Heart rate 94 /min Leandro Chery MD Work Phone: [facility] 01-03-2024 10:38-0400 Systolic blood pressure 162 mm[Hg] Leandro Chery MD Work Phone: [facility] 12-19-2023 19:00-0400 Heart rate 85 /min Leandro Chery MD Work Phone: [facility] 12-19-2023 19:00-0400 Respiratory rate 20 /min Leandro Chery MD Work Phone: [facility] 12-19-2023 19:00-0400 SaO2% (BldA) [Mass fraction] 91 % Leandro Chery MD Work Phone: [facility] 12-19-2023 18:45-0400 Diastolic blood pressure 83 mm[Hg] Leandro Chery MD Work Phone: [facility] 12-19-2023 18:45-0400 Systolic blood pressure 158 mm[Hg] Leandro Chery MD Work Phone: [facility] 12-19-2023 16:33-0400 Body temperature 97.2 [degF] Leandro Chery MD Work Phone: [facility] 12-19-2023 11:04-0400 Body height 158.8 cm Leandro Chery MD Work Phone: [facility] 12-19-2023 11:04-0400 Body mass index (BMI) [Ratio] 20.16 kg/m2 Leandro Chery MD Work Phone: [facility] 12-19-2023 11:04-0400 Body weight 50.8 kg Leandro Chery MD Work Phone: [facility] 12-05-2023 10:19-0400 Diastolic blood pressure 80 mm[Hg] Marie Alston MD Work Phone: [facility] 12-05-2023 10:19-0400 Heart rate 89 /min Marie Alston MD Work Phone: [facility] 12-05-2023 10:19-0400 Systolic blood pressure 182 mm[Hg] Marie Alston MD Work Phone: [facility] 11-30-2023 09:57-0400 Diastolic blood pressure 80 mm[Hg] [facility] [employer] [facility] 11-30-2023 09:57-0400 Heart rate 97 /min [facility] [employer] [facility] 11-30-2023 09:57-0400 Systolic blood pressure 153 mm[Hg] [facility] [employer] [facility] 11-28-2023 11:31-0400 Body mass index (BMI) [Ratio] 20.16 kg/m2 Marie Alston MD Work Phone: [facility] 11-28-2023 11:31-0400 Body weight 50.8 kg Marie Alston MD Work Phone: [facility] 11-28-2023 11:31-0400 Diastolic blood pressure 78 mm[Hg] Marie Alston MD Work Phone: [facility] 11-28-2023 11:31-0400 Heart rate 92 /min Marie Alston MD Work Phone: [facility] 11-28-2023 11:31-0400 Systolic blood pressure 177 mm[Hg] Marie Alston MD Work Phone: [facility] 11-22-2023 13:11-0400 Body height 158.8 cm Laendro Chery MD Work Phone: [facility] 11-22-2023 13:11-0400 Body mass index (BMI) [Ratio] 19.98 kg/m2 Leandro Chery MD Work Phone: [facility] 11-22-2023 [id number] Body weight 50.35 kg Leandro Chery MD Work Phone: [facility] 11-22-2023 [id number] Diastolic blood pressure 86 mm[Hg] Leandro Chery MD Work Phone: [facility] 11-22-2023 13:11-0400 Heart rate 87 /min Leandro Chery MD Work Phone: [facility] 11-22-2023 13:11-0400 Systolic blood pressure 176 mm[Hg] Leandro Chery MD Work Phone: [facility] 11-20-2023 10:22-0400 Body mass index (BMI) [Ratio] 20.29 kg/m2 Shanita Jhoan PA-C Work Phone: [facility] 11-20-2023 10:22-0400 Body weight 50.8 kg Shanita Jhoan PA-C Work Phone: [facility] 11-20-2023 10:22-0400 Diastolic blood pressure 88 mm[Hg] Shanita Jhoan PA-C Work Phone: [facility] 11-20-2023 10:22-0400 Heart rate 68 /min Shanita Jhoan PA-C Work Phone: [facility] 11-20-2023 10:22-0400 Respiratory rate 15 /min Shanita Jhoan PA-C Work Phone: [facility] 11-20-2023 10:22-0400 SaO2% (BldA) [Mass fraction] 94 % Shanita Jhoan PA-C Work Phone: [facility] 11-20-2023 10:22-0400 Systolic blood pressure 140 mm[Hg] Shanita Jhoan PA-C Work Phone: [facility] 09-04-2023 11:05-0400 Body temperature 98.2 [degF] Rylee Duarte PLC ENGINEER.TOBACCO DIPPER Work Phone: [facility] 09-04-2023 11:05-0400 Body weight 51.71 kg Rylee Suppan PLC ENGINEER.TOBACCO DIPPER Work Phone: [facility] 09-04-2023 11:05-0400 Diastolic blood pressure 90 mm[Hg] Rylee Suppan PLC ENGINEER.TOBACCO DIPPER Work Phone: [facility] 09-04-2023 11:05-0400 Heart rate 82 /min Rylee Suppan PLC ENGINEER.TOBACCO DIPPER Work Phone: [facility] 09-04-2023 11:05-0400 SaO2% (BldA) [Mass fraction] 95 % Rylee Suppan PLC ENGINEER.TOBACCO DIPPER Work Phone: [facility] 09-04-2023 11:05-0400 Systolic blood pressure 158 mm[Hg] Rylee Suppan PLC ENGINEER.TOBACCO DIPPER Work Phone: [facility] 05-15-2023 09:28-0500 Body height 158.2 cm Danny Masci DO Work Phone: [facility] 05-15-2023 09:28-0500 Body temperature 99.3 [degF] Danny Masci DO Work Phone: [facility] 05-15-2023 09:28-0500 Body weight 52.62 kg Danny Masci DO Work Phone: [facility] 05-15-2023 09:28-0500 Diastolic blood pressure 78 mm[Hg] Danny Masci DO Work Phone: [facility] 05-15-2023 09:28-0500 Heart rate 84 /min Danny Masci DO Work Phone: [facility] 05-15-2023 09:28-0500 SaO2% (BldA) [Mass fraction] 97 % Danny Masci DO Work Phone: [facility] 05-15-2023 09:28-0500 Systolic blood pressure 155 mm[Hg] Danny Masci DO Work Phone: [facility] 03-30-2023 10:00-0400 Body weight 52.44 kg Nain Campbell MD Work Phone: [facility] 03-30-2023 10:00-0400 Diastolic blood pressure 78 mm[Hg] Nain Campbell MD Work Phone: [facility] 03-30-2023 10:00-0400 Heart rate 84 /min Nain Campbell MD Work Phone: [facility] 03-30-2023 10:00-0400 SaO2% (BldA) [Mass fraction] 96 % Nain Campbell MD Work Phone: [facility] 03-30-2023 10:00-0400 Systolic blood pressure 154 mm[Hg] Nain Campbell MD Work Phone: [facility] 11-17-2022 13:19-0400 Body height 158.8 cm Markus Rascon MD Work Phone: [facility] 11-17-2022 13:19-0400 Body weight 54.16 kg Markus Rascon MD Work Phone: [facility] 11-17-2022 13:19-0400 Diastolic blood pressure 58 mm[Hg] Markus Rascon MD Work Phone: [facility] 11-17-2022 13:19-0400 Heart rate 85 /min Markus Rascon MD Work Phone: [facility] 11-17-2022 13:19-0400 SaO2% (BldA) [Mass fraction] 97 % Markus Rascon MD Work Phone: [facility] 11-17-2022 13:19-0400 Systolic blood pressure 136 mm[Hg] Markus Rascon MD Work Phone: [facility] 09-26-2022 09:51-0400 Body weight 54.43 kg Shanita Jackson PA-C Work Phone: [facility] 09-26-2022 09:51-0400 Diastolic blood pressure 82 mm[Hg] Shanita Jackson PA-C Work Phone: [facility] 09-26-2022 09:51-0400 Heart rate 88 /min Shanita Jhoan PA-C Work Phone: [facility] 09-26-2022 09:51-0400 Respiratory rate 16 /min Shanita Jhoan PA-C Work Phone: [facility] 09-26-2022 09:51-0400 SaO2% (BldA) [Mass fraction] 95 % Shanita Jhoan PA-C Work Phone: [facility] 09-26-2022 09:51-0400 Systolic blood pressure 144 mm[Hg] Shanita Jhoan PA-C Work Phone: [facility] 09-16-2022 10:54-0400 Body weight 54.88 kg Markus Rascon MD Work Phone: [facility] 09-16-2022 10:54-0400 Diastolic blood pressure 72 mm[Hg] Markus Rascon MD Work Phone: [facility] 09-16-2022 10:54-0400 Heart rate 102 /min Markus Rascon MD Work Phone: [facility] 09-16-2022 10:54-0400 SaO2% (BldA) [Mass fraction] 96 % Markus Rascon MD Work Phone: [facility] 09-16-2022 10:54-0400 Systolic blood pressure 142 mm[Hg] Markus Rascon MD Work Phone: [facility] 05-16-2022 14:02-0500 Body weight 55.79 kg Clary Nolasco MD Work Phone: [facility] 05-16-2022 14:02-0500 Diastolic blood pressure 70 mm[Hg] Clary Nolasco MD Work Phone: [facility] 05-16-2022 14:02-0500 Heart rate 83 /min Clary Nolasco MD Work Phone: [facility] 05-16-2022 14:02-0500 Systolic blood pressure 140 mm[Hg] Clary Nolasco MD Work Phone: [facility] 05-12-2022 09:18-0500 Body weight 56.02 kg Danny Mcleodi DO Work Phone: [facility] 05-12-2022 09:18-0500 Diastolic blood pressure 77 mm[Hg] Danny Shanii DO Work Phone: [facility] 05-12-2022 09:18-0500 Systolic blood pressure 144 mm[Hg] Danny Masci DO Work Phone: [facility] 05-12-2022 09:16-0500 Body temperature 98.29 [degF] Danny Mcleodi DO Work Phone: [facility] 05-12-2022 09:16-0500 Heart rate 89 /min Danny Mcleodi DO Work Phone: [facility] 03-22-2022 10:15-0400 Body weight 55.34 kg Nain Campbell MD Work Phone: [facility] 03-22-2022 10:15-0400 Diastolic blood pressure 82 mm[Hg] Nain Campbell MD Work Phone: [facility] 03-22-2022 10:15-0400 Heart rate 85 /min Nain Campbell MD Work Phone: [facility] 03-22-2022 10:15-0400 Respiratory rate 14 /min Nain Campbell MD Work Phone: [facility] 03-22-2022 10:15-0400 SaO2% (BldA) [Mass fraction] 96 % Nain Campbell MD Work Phone: [facility] 03-22-2022 10:15-0400 Systolic blood pressure 138 mm[Hg] Nain Campbell MD Work Phone: [facility] 03-18-2022 11:32-0400 Diastolic blood pressure 82 mm[Hg] Markus Rascon MD Work Phone: [facility] 03-18-2022 11:32-0400 Systolic blood pressure 132 mm[Hg] Markus Rascon MD Work Phone: [facility] 03-18-2022 10:57-0400 Body height 158.8 cm Markus Rascon MD Work Phone: [facility] 03-18-2022 10:57-0400 Body weight 55.34 kg aMrkus Rascon MD Work Phone: [facility] 03-18-2022 10:57-0400 Heart rate 94 /min Markus Rascon MD Work Phone: [facility] 03-18-2022 10:57-0400 SaO2% (BldA) [Mass fraction] 96 % Markus Rascon MD Work Phone: [facility] 02-17-2022 11:43-0400 Diastolic blood pressure 73 mm[Hg] Mi Nurse Work Phone: [facility] 02-17-2022 11:43-0400 Heart rate 86 /min Mi Nurse Work Phone: [facility] 02-17-2022 11:43-0400 Systolic blood pressure 147 mm[Hg] Mi Nurse Work Phone: [facility] 01-17-2022 11:36-0400 Body weight 54.88 kg Markus Rascon MD Work Phone: [facility] 01-17-2022 11:36-0400 Diastolic blood pressure 82 mm[Hg] Markus Rascon MD Work Phone: [facility] 01-17-2022 11:36-0400 Heart rate 96 /min Markus Rascon MD Work Phone: [facility] 01-17-2022 11:36-0400 Systolic blood pressure 148 mm[Hg] Markus Rascon MD Work Phone: [facility] 12-17-2021 13:41-0400 Body weight 56.7 kg Markus Rascon MD Work Phone: [facility] 12-17-2021 13:41-0400 Diastolic blood pressure 72 mm[Hg] Markus Rascon MD Work Phone: [facility] 12-17-2021 13:41-0400 Heart rate 96 /min Markus Rascon MD Work Phone: [facility] 12-17-2021 13:41-0400 Systolic blood pressure 150 mm[Hg] Markus Rascon MD Work Phone: [facility] 10-18-2021 13:28-0400 Diastolic blood pressure 71 mm[Hg] Mi Nurse Work Phone: [facility] 10-18-2021 13:28-0400 Heart rate 88 /min Mi Nurse Work Phone: [facility] 10-18-2021 13:28-0400 Systolic blood pressure 149 mm[Hg] Mi Nurse Work Phone: [facility] 10-12-2021 18:13-0400 Body weight 59.06 kg Debbie Constantino [employer] ENGINEER.[employer]ST[employer] SHOWMAN Work Phone: [facility] 10-12-2021 11:52-0400 Diastolic blood pressure 82 mm[Hg] Debbie [employer]ino [employer] ENGINEER.[employer]ST[employer] SHOWMAN Work Phone: [facility] 10-12-2021 11:52-0400 Heart rate 98 /min Debbie Constantino [employer] ENGINEER.[employer] SHOWMAN Work Phone: [facility] 10-12-2021 11:52-0400 Respiratory rate 18 /min Debbie Constantino [employer] ENGINEER.[employer]ST[employer] SHOWMAN Work Phone: [facility] 10-12-2021 11:52-0400 SaO2% (BldA) [Mass fraction] 98 % Debbie [employer]ino [employer] ENGINEER.[employer]ST[employer] SHOWMAN Work Phone: [facility] 10-12-2021 11:52-0400 Systolic blood pressure 156 mm[Hg] Debbie [employer]ino [employer] ENGINEER.[employer]ST[employer] SHOWMAN Work Phone: [facility] 09-16-2021 09:43-0400 Body weight 59.97 kg Markus Rascon MD Work Phone: [facility] 09-16-2021 09:43-0400 Diastolic blood pressure 82 mm[Hg] Markus Rascon MD Work Phone: [facility] 09-16-2021 09:43-0400 Heart rate 80 /min Markus Rascon MD Work Phone: [facility] 09-16-2021 09:43-0400 Respiratory rate 16 /min Markus Rascon MD Work Phone: [facility] 09-16-2021 09:43-0400 Systolic blood pressure 144 mm[Hg] Markus Rascon MD Work Phone: [facility] 01-24-2017 10:47-0400 BMI (Body Mass Index) 24.87 kg/m2 Tariq Chew MD [facility] 01-24-2017 10:47-0400 Body Temperature 96.4 [degF] Tariq Chew MD [facility] 01-24-2017 10:47-0400 BP Diastolic 93 mm[Hg] Tariq Chew MD [facility] 01-24-2017 10:47-0400 BP Systolic 167 mm[Hg] Tariq Chew MD [facility] 01-24-2017 10:47-0400 Height 158.75 cm Tariq Chew MD [facility] 01-24-2017 10:47-0400 Pulse (Heart Rate) 82 /min Tariq Chew MD [facility] 01-24-2017 10:47-0400 Respiratory Rate 16 /min Tariq Chew MD [facility] 01-24-2017 10:47-0400 Weight 62.69 kg Tariq Chew MD [facility] Encounters Encounter Date Encounter Type Care Provider Facility Start: 03-21-2024 End: 03-21-2024 ambulatory MARKUS Izabella TARAH Facility:[facility] Start: 03-21-2024 End: 03-21-2024 Subsequent hospital visit by physician Daryl Hamlin MD Work Phone: Ambulatory Surgery Comment on above: Iron deficiency anem ia, unspecified iron deficiency anemia type [D50.9] Start: 03-19-2024 End: 03-19-2024 Telephone encounter Daryl Hamlin MD Work Phone: General Surgery Comment on above: Patient Question Start: 03-18-2024 End: 03-18-2024 Telephone encounter Daryl Hamlin MD Work Phone: General Surgery Start: 03-13-2024 End: 03-13-2024 Refill Markus Rascon MD Work Phone: [facility] [place] Comment on above: Med Change Request Start: 03-12-2024 End: 03-12-2024 Office outpatient visit 15 minutes Debbie Constantino APRN.LIVESTOCK SHOWMAN Work Phone: [facility] [place] Comment on above: Weight loss (Primary Dx); Iron deficiency anemia, unspecified iron deficiency anemia type; Essential hypertension Start: 03-12-2024 End: 03-12-2024 ambulatory DEBBIE CHRISTINE Facility:[facility] Start: 03-11-2024 End: 03-11-2024 Telephone encounter Rylee Duaret APRN.L[employer]ST[employer] SHOWMAN Work Phone: [facility] [place] Comment on above: Results Start: 03-08-2024 End: 03-08-2024 ambulatory [facility] Facility:[facility] Start: 03-05-2024 End: 03-05-2024 [facility] Facility:[facility] Start: 03-05-2024 End: 03-05-2024 Patient encounter procedure Daryl Hamlin MD Work Phone: General Surgery Comment on above: Iron deficiency anem ia, unspecified iron deficiency anemia type; Family history of colon cancer; Weight loss; Heme positive stool Start: 02-27-2024 End: 02-27-2024 [facility] Start: 02-21-2024 End: 02-21-2024 Telephone encounter Markus Rascon MD Work Phone: [facility] [place] Comment on above: Patient Question Start: 02-19-2024 End: 03-21-2024 Telephone encounter Markus Rascon MD Work Phone: [facility] [place] Comment on above: Results Start: 02-16-2024 End: 02-16-2024 ambulatory [facility] Izabella TARAH Facility:[facility] Start: 02-14-2024 End: 02-14-2024 Telephone encounter Markus Rascon MD Work Phone: [facility] [place] Comment on above: Results Start: 02-13-2024 End: 02-13-2024 ambulatory MARKUS Izabella [facility] Facility:[facility] Start: 02-12-2024 End: 02-12-2024 Patient encounter procedure Markus Rascon MD Work Phone: [facility] [place] Comment on above: Essential hypertensi on (Primary Dx); Obstructive cardiomyopathy (HCC); SVT (supraventricular tachycardia) (HCC); HOCM (hypertrophic obstructive cardiomyopathy) (HCC); Restrictive 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; Mild intermittent asthma without complication; Hypercalcemia; Monoclonal gammopathy; Age-related osteoporosis without current pathological fracture; Bilateral carotid artery stenosis; Encounter for screening examination for other mental health and behavioral disorders; Weight loss; Screening for depression; Chronic obstructive pulmonary disease, unspecified COPD type (HCC) Start: 02-12-2024 End: 02-12-2024 [facility] MARKUS Parekh TARAH Facility:[facility] Start: 02-06-2024 End: 02-06-2024 Postop follow up visit related to original px Marie Alston MD Work Phone: [facility] Urogynecology Comment on above: Postop check (Primar y Dx); OAB (overactive bladder); Anal skin tag Start: 02-06-2024 End: 02-06-2024 [facility] Start: 01-03-2024 End: 01-05-2024 Telephone encounter Leandro Chery MD Work Phone: [facility] Gynecologic Oncology Comment on above: Other (Restrictions after surgery) Start: 01-03-2024 End: 01-03-2024 Postop follow up visit related to original px Leandro Chery MD Work Phone: [facility] Gynecologic Oncology Comment on above: Post-operative state (Primary Dx) Start: 01-03-2024 End: 01-03-2024 [facility] Start: 12-27-2023 End: 12-27-2023 Telephone encounter Leandro Chery MD Work Phone: [facility] Gynecologic Oncology Start: 12-25-2023 End: 12-25-2023 Telephone encounter Leandro Chery MD Work Phone: [facility] Gynecologic Oncology Start: 12-24-2023 End: 01-05-2024 ambulatory Shahnaz Casiano RN [facility] Clinical Communication Start: 12-24-2023 End: 01-05-2024 Patient encounter procedure Shahnaz Casiano RN [facility] Clinical Communication Start: 12-19-2023 End: 12-19-2023 ambulatory MARKUS [facility] Start: 12-19-2023 End: 12-19-2023 Subsequent hospital visit by physician Leandro Chery MD Work Phone: [facility] Comment on above: Postoperative pain ( Primary Dx); Intra-abdominal and pelvic swelling, mass and lump, unspecified site; Abnormal findings on diagnostic imaging of other specified body structures; Incomplete uterovaginal prolapse; Cystocele, midline; Rectocele Start: 12-18-2023 End: 12-18-2023 ambulatory Leandro Chery MD Work Phone: [facility] Gynecologic Oncology Start: 12-18-2023 End: 12-18-2023 Telephone encounter Leandro Chery MD Work Phone: [facility] Gynecologic Oncology Start: 12-15-2023 End: 12-15-2023 ambulatory MARKUS [facility] Facility:[facility] Start: 12-14-2023 Patient encounter procedure [facility] Provider [facility] Department Start: 12-14-2023 End: 12-14-2023 ambulatory MARKUS [facility] Start: 12-14-2023 End: 12-14-2023 Encounter for other preprocedural examination LEANDRO CHERY [facility] Start: 12-12-2023 End: 12-14-2023 Telephone encounter Leandro Chery MD Work Phone: [facility] Gynecologic Oncology Comment on above: surgery scheeduling (Scheduled at [facility]) Patient Question; Pa tient Update Start: 12-08-2023 End: 12-08-2023 Telephone encounter Leandro Chery MD Work Phone: [facility] Gynecologic Oncology Start: 12-05-2023 End: 12-05-2023 Patient encounter procedure Marie Alston MD Work Phone: [facility] Urogynecology Comment on above: Incomplete uterovagi nal prolapse (Primary Dx); Cystocele, midline; Rectocele; ALVIN (stress urinary incontinence, female) Start: 12-05-2023 End: 12-05-2023 ambulatory MARIE ALSTON [facility] Start: 12-04-2023 End: 12-04-2023 ambulatory MARKUS RASCON Facility:[facility] Start: 11-30-2023 End: 11-30-2023 Telephone encounter Leandro Chery MD Work Phone: [facility] Gynecologic Oncology Comment on above: surgery scheduling ( Scheduled at [facility]) Start: 11-30-2023 End: 11-30-2023 Patient encounter procedure [facility] Urogynecology Comment on above: ALVIN (stress urinary incontinence, female) Start: 11-30-2023 End: 11-30-2023 ambulatory MARKUS [facility] Start: 11-28-2023 End: 11-28-2023 Office outpatient new 45 minutes Marie Alston MD Work Phone: [facility] Urogynecology Comment on above: Incomplete uterovagi nal prolapse (Primary Dx); Cystocele, midline; Rectocele; Incomplete bladder emptying; Abnormal urine finding Start: 11-28-2023 End: 11-28-2023 ambulatory MARKUS [facility] Start: 11-24-2023 End: 11-24-2023 Telephone encounter Leandro Chery MD Work Phone: [facility] Gynecologic Oncology Comment on above: Medication Problem Start: 11-22-2023 End: 11-22-2023 Office outpatient new 45 minutes Leandro Chery MD Work Phone: [facility] Gynecologic Oncology Comment on above: Pelvic mass in femal e (Primary Dx); Abnormal finding on radiology exam; Uterovaginal prolapse Start: 11-22-2023 End: 11-22-2023 ambulatory TARIQ CHEW [facility] Start: 11-20-2023 End: 11-20-2023 ambulatory SHANITA JACKSON Facility:[facility] Start: 11-20-2023 End: 11-20-2023 Patient encounter procedure Shanita Jackson PA-C Work Phone: Pulmonary Medicine Comment on above: Asthma-COPD overlap syndrome (HCC) (Primary Dx); Restrictive 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 Start: 10-23-2023 Refill Markus Rascon MD Work Phone: [facility] [place] Comment on above: Refill Request Start: 10-16-2023 Telephone encounter Rylee Duarte APRN.TOBACCO DIPPER Work Phone: [facility] [place] Start: 10-16-2023 End: 10-16-2023 Nursing evaluation of patient and report Nurse Card Admin [facility] Work Phone: Cardiology Comment on above: Chest pain, unspecif ied type Start: 10-16-2023 End: 10-16-2023 ambulatory MARKUS RASCON Facility:[facility] Start: 10-16-2023 End: 10-16-2023 Subsequent hospital visit by physician Injection Nm [facility] Work Phone: Nuclear Medicine Comment on above: Chest pain, unspecif ied type [R07.9] Start: 10-11-2023 Refill Nain Campbell MD Work Phone: Pulmonary Medicine Comment on above: Refill Request Start: 10-10-2023 ambulatory Nurse Card Adm in [facility] Work Phone: Cardiology Comment on above: Stress Test Instruct ions for 10/16/23 Start: 10-10-2023 E-mail encounter ana gamble caregiver Nurse Card Admin [facility] Work Phone: Cardiology Start: 09-07-2023 Telephone encounter Rylee Duarte APRN.TOBACCO DIPPER Work Phone: Family [facility] [place] Comment on above: Results Start: 09-06-2023 End: 09-06-2023 ambulatory MARKUS RASCON Facility:[facility] Start: 09-05-2023 Telephone encounter Rylee Duarte PLC ENGINEER.TOBACCO DIPPER Work Phone: [facility] Start: 09-04-2023 End: 09-04-2023 ambulatory [facility] Facility:[facility] Start: 09-04-2023 End: 09-04-2023 Office outpatient visit 25 minutes Rylee Duarte PLC ENGINEER.TOBACCO DIPPER Work Phone: [facility] Comment on above: Screening for diabet es mellitus (Primary Dx); Age-related osteoporosis without current pathological fracture; Other disorders of glucose transport (HCC); Chest pain, unspecified type; Stable angina pectoris ([facility]) Start: 08-29-2023 Telephone encounter Nain Campbell MD Work Phone: Pulmonary Medicine Comment on above: Patient Question (In surance formulary) Start: 07-18-2023 Telephone encounter Shane Tobar DO Work Phone: Radiology Start: 07-10-2023 End: 07-10-2023 ambulatory [facility] Facility:[facility] Start: 07-10-2023 End: 07-10-2023 Patient encounter procedure Echocardiogram [facility] Work Phone: Cardiology Comment on above: HOCM (hypertrophic o bstructive cardiomyopathy) ([facility]) Start: 07-04-2023 End: 07-04-2023 ambulatory [facility] Facility:[facility] Start: 06-14-2023 End: 06-14-2023 ambulatory STACEY NGUYEN Facility:[facility] Start: 06-13-2023 End: 06-13-2023 ambulatory [facility] Facility:[facility] Start: 06-12-2023 End: 06-12-2023 ambulatory [facility] Facility:[facility] Start: 06-10-2023 End: 06-10-2023 ambulatory [facility] Facility:[facility] Start: 05-15-2023 End: 05-15-2023 ambulatory Danny Oneill DO Work Phone: Hematology/Oncology Comment on above: Monoclonal gammopath y (Primary Dx) Start: 05-15-2023 End: 05-15-2023 Patient encounter procedure Danny Oneill DO Work Phone: [facility] Start: 05-09-2023 End: 05-09-2023 ambulatory MARKUS Parekh TARAH Facility:[facility] Start: 05-09-2023 End: 05-09-2023 Subsequent hospital visit by physician Xr [facility] [place] Work Phone: Radiology Comment on above: Monoclonal gammopath y [D47.2] Start: 05-08-2023 Orders Only Danny Owusu O Work Phone: Hematology/Oncology Comment on above: Monoclonal gammopath y (Primary Dx) Start: 04-24-2023 ambulatory Nain Campbell MD Work Phone: Pulmonary Medicine Comment on above: Symbicort INH 160-4. 5 Start: 03-30-2023 End: 03-30-2023 ambulatory [facility] Facility:[facility] Start: 03-30-2023 End: 03-30-2023 Patient encounter procedure Nain Campbell MD Work Phone: Pulmonary Medicine Comment on above: Asthma-COPD overlap syndrome (Primary Dx); Restrictive 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 Start: 03-07-2023 End: 03-07-2023 Subsequent hospital visit by physician Bone Density [facility] Work Phone: Radiology Comment on above: Osteoporosis, unspec ified [M81.0] Start: 03-03-2023 End: 03-03-2023 ambulatory [facility] [place] Work Phone: [facility] [place] Start: 01-10-2023 ambulatory Nusrat Duke [facility] Comment on above: Population Health [facility] ([facility]) Refill Request Start: 11-17-2022 End: 11-17-2022 Patient encounter procedure Markus Rascon MD Work Phone: [facility] [place] Comment on above: Forgetfulness (Prima ry Dx); Essential hypertension; SVT (supraventricular tachycardia) (HCC); Obstructive cardiomyopathy (HCC) Start: 09-26-2022 End: 09-26-2022 Patient encounter procedure Shanita Jackson PA-C Work Phone: Pulmonary Medicine Comment on above: Mild intermittent as thma without complication (Primary Dx); Restrictive 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 Start: 09-19-2022 Telephone encounter Markus Rascon MD Work Phone: [facility] [place] Comment on above: Results Start: 09-16-2022 End: 09-16-2022 Patient encounter procedure Markus Rascon MD Work Phone: Family [facility] [place] Comment on above: Osteoporosis, unspec ified (Primary Dx); Vitamin D deficiency; Essential hypertension; Obstructive cardiomyopathy (HCC); HOCM (hypertrophic obstructive cardiomyopathy) (HCC); SVT (supraventricular tachycardia) (HCC); Mild intermittent asthma without complication; Restrictive 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; Cyst of kidney, acquired; Monoclonal gammopathy; Age-related osteoporosis without current pathological fracture; Family history of colon cancer; Bilateral carotid artery stenosis; Mild memory disturbance; Dermatitis Start: 07-14-2022 Telephone encounter Clary Nolasco MD Work Phone: [facility] Cardiology [place] Comment on above: Cardiac Clearance Start: 05-16-2022 End: 05-16-2022 Patient encounter procedure Clary Nolasco MD Work Phone: Cardiology Comment on above: Essential hypertensi on (Primary Dx); HOCM (hypertrophic obstructive cardiomyopathy) (HCC) Start: 05-12-2022 End: 05-12-2022 ambulatory Danny Oneill DO Work Phone: Hematology/Oncology Comment on above: Monoclonal gammopath y (Primary Dx) Start: 05-12-2022 End: 05-12-2022 Patient encounter procedure Danny Oneill DO Work Phone: [facility] Start: 05-04-2022 Orders Only Danny Ambrose Work Phone: Hematology/Oncology Comment on above: Monoclonal gammopath y (Primary Dx) Start: 05-02-2022 End: 05-02-2022 Subsequent hospital visit by physician Xr [facility] Comment on above: Monoclonal gammopath y [D47.2] Start: 03-22-2022 End: 03-22-2022 Patient encounter procedure Nain Campbell MD Work Phone: Pulmonary Medicine Comment on above: Mild intermittent as thma without complication (Primary Dx); Restrictive 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 Start: 03-18-2022 Manual pelvic examination Markus Rascon MD Work Phone: [facility] Start: 03-18-2022 End: 03-18-2022 Patient encounter procedure Markus Rascon MD Work Phone: [facility] [place] Comment on above: Weight loss (Primary Dx); Encounter for immunization; Essential hypertension; HOCM (hypertrophic obstructive cardiomyopathy) (HCC) Start: 02-28-2022 ambulatory Markus Rascon MD Work Phone: [facility] [place] Comment on above: Change in bp medicat ion Start: 02-17-2022 Telephone encounter Markus Rascon MD Work Phone: [facility] [place] Comment on above: Blood Pressure Check Start: 02-17-2022 End: 02-17-2022 Nursing evaluation of patient and report Mi Nurse Work Phone: [facility] [place] Comment on above: Essential hypertensi on (Primary Dx) Start: 02-08-2022 Telephone encounter Shane Tobar DO Work Phone: Radiology Comment on above: Patient Question Start: 01-28-2022 Telephone encounter Markus Rascon MD Work Phone: [facility] [place] Comment on above: Results Start: 01-24-2022 Telephone encounter Shane Tobar DO Work Phone: Radiology Comment on above: Results Start: 01-21-2022 End: 01-21-2022 Subsequent hospital visit by physician Ct Prep [facility] Cat [facility] Comment on above: Weight loss [R63.4] Start: 01-17-2022 Telephone encounter Markus Rascon MD Work Phone: [facility] [place] Comment on above: Results Start: 01-17-2022 End: 01-17-2022 Patient encounter procedure Markus Rascon MD Work Phone: [facility] [place] Comment on above: Weight loss (Primary Dx); Essential hypertension; Restrictive 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; Monoclonal gammopathy Start: 12-17-2021 End: 12-17-2021 Patient encounter procedure Markus Rascon MD Work Phone: Family Medicine [place] Comment on above: Weight loss (Primary Dx); Essential hypertension; Hypercalcemia; Non-rheumatic mitral regurgitation; Monoclonal gammopathy; Mitral valve prolapse; Bilateral carotid artery stenosis; Obstructive cardiomyopathy (HCC) Start: 11-22-2021 ambulatory Evette Salcido [employer] ENGINEER.LIVESTOCK SHOWMAN Work Phone: [facility] Cardiology [place] Comment on above: Blood pressure Symbicort Start: 11-22-2021 E-mail encounter ana gamble caregiver Evette Salcido [employer] ENGINEER.LIVESTOCK SHOWMAN Work Phone: [facility] Start: 10-21-2021 Telephone encounter Breanna Theodore APRN.LIVESTOCK SHOWMAN Work Phone: [facility] Cardiology [place] Comment on above: Results Start: 10-19-2021 Telephone encounter Clary Nolasco MD Work Phone: [facility] Cardiology [place] Comment on above: Patient Update Start: 10-18-2021 Telephone encounter Markus Rascon MD Work Phone: [facility] Medicine [place] Comment on above: Blood Pressure Check Appointment (cardiol ogy) Start: 10-18-2021 End: 10-18-2021 Nursing evaluation of patient and report Mi Nurse Work Phone: Family Medicine [place] Comment on above: Essential hypertensi on (Primary Dx) Start: 10-14-2021 Telephone encounter Markus Rascon MD Work Phone: [facility] Medicine [place] Comment on above: Medication Question Start: 10-13-2021 Telephone encounter Debbie sheets APRN.LIVESTOCK SHOWMAN Work Phone: [facility] Medicine [place] Comment on above: Results Start: 10-12-2021 End: 10-12-2021 Office outpatient visit 15 minutes Debbie Constantino APRN.LIVESTOCK SHOWMAN Work Phone: [facility] Comment on above: Swelling (Primary Dx ); Multiple thyroid nodules; Obstructive cardiomyopathy (HCC) Start: 09-17-2021 Telephone encounter Shane Cathleen Tobar DO Work Phone: Radiation Oncology Comment on above: Release Of Medical R ecords Start: 09-16-2021 Telephone encounter Markus Rascon MD Work Phone: [facility] Comment on above: Results Start: 09-16-2021 End: 09-16-2021 Subsequent hospital visit by physician Xr [facility] [place] Work Phone: Radiology Comment on above: Hip pain, right [M25 .551] Start: 09-16-2021 End: 09-16-2021 Patient encounter procedure Markus Rascon MD Work Phone: [facility] Comment on above: HOCM (hypertrophic o bstructive cardiomyopathy) (HCC) (Primary Dx); Screening breast examination; Encounter for screening mammogram for malignant neoplasm of breast ; Hip pain, right; Shoulder tendonitis, left; Obstructive cardiomyopathy (HCC); Restrictive 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 Start: 09-13-2021 Telephone encounter Markus Rascon MD Work Phone: [facility] Comment on above: Results Start: 09-13-2021 End: 09-13-2021 Subsequent hospital visit by physician Ct [facility] (I-Stat) Work Phone: Cat Scan Comment on above: Other injury of unsp ecified muscle, fascia and tendon at shoulder and upper arm level, unspecified arm, initial encounter [S46.999A] Start: 09-09-2021 Telephone encounter Markus Rascon MD Work Phone: [facility] Comment on above: Patient Question Start: 09-07-2021 End: 09-07-2021 Subsequent hospital visit by physician Xr [facility] [place] Work Phone: Radiology Comment on above: Acute pain of left s [place] [M25.512] Start: 09-07-2021 Telephone encounter May Bridges PA-C Work Phone: [facility] Comment on above: CT schedule Start: 08-31-2021 Telephone encounter Markus Rascon MD Work Phone: Family Medicine [place] Comment on above: Ortho referral Start: 11-24-2020 End: 11-24-2020 Subsequent hospital visit by physician Berenice [facility] [place] Work Phone: Radiology Comment on above: SOB (shortness of br eath) [R06.02] Start: 03-18-2020 Manual pelvic examination Leandro Chery MD Work Phone: [facility] Start: 01-24-2017 End: 09-16-2022 Manual pelvic examination Nurse Wstr Work Phone: [facility] Procedures Date Procedure Procedure Detail Performing Clinician Start: 03-21-2024 Colonoscopy flx dx w/collj spec when pfrmd Daryl Hamlin MD Work Phone: Start: 03-21-2024 Esophagogastroduodenoscopy transoral diagnostic Daryl Hamlin MD Work Phone: Start: 03-21-2024 Colonoscopy Markus Rascon MD Work Phone: Start: 02-12-2024 Adult depression screening assessment Markus Rascon MD Work Phone: Start: 12-19-2023 End: 12-19-2023 Cmbnd anterpost colporraphy w/cysto Marie Alstno MD Work Phone: Start: 12-19-2023 End: 12-19-2023 Colpopexy vaginal intraperitoneal approach Marie Alston MD Work Phone: Start: 12-19-2023 End: 12-19-2023 Cystourethroscopy Marie Alston MD Work Phone: Start: 12-19-2023 End: 12-19-2023 Laps w/vag hysterect 250 gm/&rmvl tube&/ovaries Leandro Chery MD Work Phone: Start: 12-19-2023 End: 12-19-2023 Sling operation stress incontinence Marie Alston MD Work Phone: Start: 12-19-2023 Ecg routine ecg w/least 12 lds trcg only w/o i&r Allyson Emilia [employer] ENGINEER - HISTOLOGY AIDE Work Phone: Start: 12-19-2023 Blood count complete automated Leandro Chery MD Work Phone: Start: 12-14-2023 Antibody screen MARKUS RASCON Comment on above: Performed By: #### [id number] #### [facility] Worker: RANJIT ORTIZ ([phone]) [facility] BLOOD [facility] ([facility]) [address] [place] [address] [facility] Start: 12-04-2023 Lipid 1996 panel - Serum or Plasma Denis Rascon MD Work Phone: Start: 11-28-2023 Culture bacterial quanttative colony count urine Marie Alston MD Work Phone: Start: 11-28-2023 End: 11-28-2023 Urnls dip stick/tablet rgnt non-auto w/o micrscp Marie Alston MD Work Phone: Start: 10-16-2023 Myocardial spect multiple studies Celine line Rupesh [employer] ENGINEER.TOBACCO DIPPER Work Phone: Start: 09-04-2023 Ecg routine ecg w/least 12 lds i&r only Rylee Goddard [employer] ENGINEER.TOBACCO DIPPER Work Phone: Start: 07-10-2023 Echo tthrc r-t 2d w/wom-mode compl spec&colr d Clary Nolasco MD Work Phone: Start: 07-10-2023 LVEF TRANSTHORACIC ECHO Clary Nolasco MD Work Phone: Start: 03-07-2023 Dxa bone density study 1/> sites axial skel Markus Rascon MD Work Phone: Start: 03-03-2023 INFLUENZA VACCINE, PRSV FREE, AGE 65+ YR, HIGH DOSE, QUADRIVALENT (FLUZONE HIGH-DOSE) Markus Rascon MD Work Phone: Start: 12-02-2022 Mammography Nusrat Srikanth JURADO Start: 03-18-2022 INFLUENZA SEASONAL QUADRIVALENT HIGH DOSE AGE 65+ Markus Rascon MD Work Phone: Start: 12-22-2021 Lipid 1996 panel - Serum or Plasma Adelaida Nolasco MD Work Phone: Start: 11-30-2021 Mammography Markus Rascon MD Work Phone: Start: 09-16-2021 Radex hip unilateral with pelvis 2-3 views Markus Rascon MD Work Phone: Start: 09-16-2021 Adult depression screening assessment Markus Rascon MD Work Phone: Start: 09-13-2021 Ct upper extremity w/o contrast material [facility] Work Phone: Start: 09-07-2021 Radex shoulder complete minimum 2 views M [facility] Work Phone: Start: 11-24-2020 Radiologic exam chest 2 views [facility] Work Phone: Start: 11-12-2020 Mammography Markus Rascon MD Work Phone: Start: 09-24-2020 Colonoscopy Markus Rascon MD Work Phone: Start: 02-27-2018 Adult depression screening assessment Markus Rascon MD Work Phone: Plan of Treatment Date Care Activity Detail Author Start: 03-21-2029 Screening for malignant neoplasm of colon [facility] Start: 12-03-2028 Lipid panel Lipid Screening [facility] Start: 12-28-2027 Urine microalbumin profile [facility] Start: 02-12-2027 Diabetes Screening Diabetes Screening [facility] Start: 12-22-2026 Lipid 1996 panel - Serum or Plasma Lipid Screening [facility] Start: 12-22-2026 Lipid panel Lipid Screening [facility] Start: 12-22-2026 LIPID SCREEN LIPID SCREEN [facility] Start: 12-03-2026 Diabetes Screening Diabetes Screening [facility] Start: 09-03-2026 Diabetes Screening Diabetes Screening [facility] Start: 05-09-2026 Diabetes Screening Diabetes Screening [facility] Start: 11-11-2025 DIABETES SCREEN DIABETES SCREEN [facility] Start: 11-11-2025 Diabetes Screening Diabetes Screening [facility] Start: 09-24-2025 Colonoscopy COLONOSCOPY [facility] Start: 09-24-2025 COLORECTAL CANCER SCREENING COLORECTAL CANCER SCREENING [facility] Start: 09-24-2025 Screening for malignant neoplasm of colon [facility] Start: 09-16-2025 DIABETES SCREEN DIABETES SCREEN [facility] Start: 05-05-2025 DIABETES SCREEN DIABETES SCREEN [facility] Start: 03-12-2025 Annual PCP Team Chronic Disease Visit Annual PCP Team Chronic Disease Visit [facility] Start: 03-07-2025 Screening for osteoporosis [facility] Start: 02-15-2025 Screening for malignant neoplasm of colon Fecal Occult Blood [facility] Start: 02-11-2025 Annual PCP Team Chronic Disease Visit Annual PCP Team Chronic Disease Visit [facility] Start: 02-11-2025 Anxiety Screening Anxiety Screening [facility] Start: 02-11-2025 Covid-19 Vaccine () Covid-19 Vaccine () [facility] Comment on above: Postponed from 02/04/2024 (Declined at t his time) Start: 02-11-2025 Covid-19 Vaccine () Covid-19 Vaccine () [facility] Comment on above: Postponed from 02/04/2024 (Declined at t his time) Start: 02-11-2025 Depression Screening Depression Screening [facility] Start: 02-11-2025 Shingrix Vaccine (2 of 3) Shingrix Vaccine (2 of 3) [facility] Comment on above: Postponed from 06/25/2012 (Declined at t his time) Start: 12-22-2024 DIABETES SCREEN DIABETES SCREEN [facility] Start: 12-03-2024 Diabetes mellitus screening Diabetes Screening [facility] Start: 12-03-2024 Screening for malignant neoplasm of breast Mammogram Screening [facility] Start: 10-20-2024 DIABETES SCREEN DIABETES SCREEN [facility] Start: 10-12-2024 DIABETES SCREEN DIABETES SCREEN [facility] Start: 08-06-2024 End: 08-06-2024 Patient encounter procedure 08/06/2024 11:45 AM EST Office Visit [facility] Urogynecology [address] [place] [phone] Marie Alston MD [address] [place] [address] [facility] Urogynecology Start: 07-04-2024 End: 07-04-2024 ambulatory 07/04/2024 9:50 AM EST Visit (SP) Office Hematology/Oncology [address] [place] [address] Danny Oneill DO [address] [place] [address] 1 YR OV/LABS 06/27* Hematology/Oncology Comment on above: 1 YR OV/LABS 06/27* Start: 06-27-2024 End: 06-27-2024 ambulatory 06/27/2024 8:45 AM EST Results Only [place] [facility] [address] [place] [address] CBC/CMP/Myeloma labs/YASMIN* [facility] Comment on above: CBC/CMP/Myeloma labs/YASMIN* Start: 06-24-2024 End: 06-24-2024 Patient encounter procedure 06/24/2024 10:00 AM EST Office Visit Cardiology [address] [place] [phone] Clary Nolasco MD [address] [place] [address] 1 year f/u Cardiology Comment on above: 1 year f/u Start: 06-13-2024 Annual PCP Team Chronic Disease Visit Annual PCP Team Chronic Disease Visit [facility] Start: 05-31-2024 End: 05-31-2024 Patient encounter procedure 05/31/2024 10:45 AM EST Office Visit [facility] Urogynecology [address] [place] [address] Marie Hutson MD [address] [place] [address] [address] [place] [address] [facility] Urogynecology Start: 05-05-2024 DIABETES SCREEN DIABETES SCREEN [facility] Start: 04-03-2024 End: 04-03-2024 Patient encounter procedure 04/03/2024 2:20 PM EDT Office Visit [facility] [place] [address] [place] [address] Markus Rascon MD [address] [facility] [place] [address] 2 week follow up weight loss [facility] Comment on above: 2 week follow up weight loss Start: 04-02-2024 End: 04-02-2024 Patient encounter procedure 04/02/2024 10:30 AM EDT Office Visit General Surgery [address] [place] [address] Ariane Cota APRN.LIVESTOCK SHOWMAN [address] [place] [address] 03-21 colonoscopy follow up General Surgery Comment on above: 03-21 colonoscopy follow up Start: 03-27-2024 End: 03-27-2024 Patient encounter procedure 03/27/2024 10:30 AM EDT Office Visit Pulmonary Medicine [address] [place] [address] Shanita Jacksno PA-C [address] [place] [address] 4 MO F/U Pulmonary Medicine Comment on above: 4 MO F/U Start: 03-21-2024 End: 03-21-2024 Patient encounter procedure 03/21/2024 1:15 PM EDT Appointment Ambulatory Surgery [address] [place] [address] Daryl Hamlin MD [address] [place] [address] Ambulatory Surgery Start: 03-21-2024 End: 03-21-2024 Patient encounter procedure 03/21/2024 11:45 AM EDT Appointment Ambulatory Surgery [address] [place] [address] Daryl Hamlin MD [address] [place] [address] Ambulatory Surgery Start: 03-18-2024 End: 03-18-2024 ambulatory 03/18/2024 9:00 AM EDT Results Only [place] [facility] Draw Station [address] [place] [address] [place] [facility] Draw Station Start: 03-12-2024 End: 03-12-2024 Patient encounter procedure 03/12/2024 10:40 AM EDT Office Visit [facility] [place] [address] [place] [address] Debbie Constantino APRN.LIVESTOCK SHOWMAN [address] [place] [address] 4 week follow up weight loss [facility] [place] Comment on above: 4 week follow up weight loss Start: 03-08-2024 End: 03-08-2024 ambulatory 03/08/2024 9:00 AM EDT Results Only [place] [facility] Draw Station [address] [place] [address] [facility] Comment on above: LABS Start: 03-05-2024 End: 03-05-2024 Patient encounter procedure 03/05/2024 11:00 AM EDT Office Visit General Surgery [address] [address] Daryl Hamlin MD [address] [place] [address] Iron deficiency anemia, unspecified iron deficiency anemia type [D50.9]; Family history of colon cancer [Z80.0]; Weight loss [R63.4]; Heme positive stool [R19.5] General Surgery Comment on above: Iron deficiency anemia, unspecified iron deficiency anemia type [D50.9]; Family history of colon cancer [Z80.0]; Weight loss [R63.4]; Heme positive stool [R19.5] Start: 02-27-2024 End: 02-27-2024 Patient encounter procedure [facility] Gynecologic Oncology Comment on above: Bilateral carotid artery stenosis [I65.2 3] Start: 02-20-2024 End: 02-20-2024 ambulatory 02/20/2024 10:00 AM EDT Results Only [facility] Draw Station [address] [facility] [place] [address] . [facility] Station Comment on above: . Start: 02-14-2024 End: 02-13-2025 CBC W Auto Differential panel - Blood COMPLETE BLOOD COUNT AND DIFFERENTIAL Lab Routine Anemia, unspecified type Expected: 02/14/2024, Expires: 02/13/2025 [facility] Work Phone: Comment on above: Expected: 02/14/2024, Expires: Start: 02-14-2024 End: 02-13-2025 Cobalamin (Vitamin B12) [Mass/volume] in Serum or Plasma VITAMIN B12 Lab Routine Anemia, unspecified type Expected: 02/14/2024, Expires: 02/13/2025 [facility] Comment on above: Expected: 02/14/2024, Expires: Start: 02-14-2024 End: 02-13-2025 Ferritin [Mass/volume] in Serum or Plasma FERRITIN Lab Routine Anemia, unspecified type Expected: 02/14/2024, Expires: 02/13/2025 [facility] Comment on above: Expected: 02/14/2024, Expires: Start: 02-14-2024 End: 02-13-2025 Folate [Mass/volume] in Serum or Plasma FOLATE, SERUM Lab Routine Anemia, unspecified type Expected: 02/14/2024, Expires: 02/13/2025 [facility] Comment on above: Expected: 02/14/2024, Expires: Start: 02-14-2024 End: 02-13-2025 Hemoglobin.gastrointestin al.lower [Presence] in Stool by Immunoassay IMMUNOCHEMICAL FECAL OCCULT BLOOD TEST Lab Routine Anemia, unspecified type Expected: 02/14/2024, Expires: 02/13/2025 [facility] Comment on above: Expected: 02/14/2024, Expires: Start: 02-14-2024 End: 02-13-2025 Iron and Iron binding capacity panel - Serum or Plasma IRON AND TIBC Lab Routine Anemia, unspecified type Expected: 02/14/2024, Expires: 02/13/2025 [facility] Comment on above: Expected: 02/14/2024, Expires: Start: 02-13-2024 End: 02-13-2024 ambulatory 02/13/2024 10:00 AM EDT Results Only [facility] Draw Station [address] [facility] [place] [address] labs [facility] Draw Station Comment on above: labs Start: 02-12-2024 End: 05-13-2024 CBC W Auto Differential panel - Blood COMPLETE BLOOD COUNT AND DIFFERENTIAL Lab Routine Weight loss Expected: 02/12/2024, Expires: 05/13/2024 [facility] Work Phone: Comment on above: Expected: 02/12/2024, Expires: Start: 02-12-2024 End: 05-13-2024 Comprehensive metabolic 2000 panel - Serum or Plasma COMPREHENSIVE METABOLIC PANEL Lab Routine Weight loss Expected: 02/12/2024, Expires: 05/13/2024 [facility] Comment on above: Expected: 02/12/2024, Expires: Start: 02-12-2024 End: 05-13-2024 Prealbumin [Mass/volume] in Serum or Plasma PREALBUMIN Lab Routine Weight loss Expected: 02/12/2024, Expires: 05/13/2024 [facility] Comment on above: Expected: 02/12/2024, Expires: Start: 02-12-2024 End: 05-13-2024 Thyrotropin [Units/volume] in Serum or Plasma THYROID STIMULATING HORMONE Lab Routine Weight loss Expected: 02/12/2024, Expires: 05/13/2024 [facility] Comment on above: Expected: 02/12/2024, Expires: Start: 02-09-2024 End: 02-09-2024 Patient encounter procedure 02/09/2024 2:00 PM EDT Office Visit Family Medicine [place] [address] [facility] [place] [address] Markus Rascon MD [address] [place], [place] [id number] 6 month follow up. Fasting labs prior [facility] Comment on above: 6 month follow up. Fasting labs prior Start: 02-06-2024 End: 02-06-2024 Patient encounter procedure 02/06/2024 1:45 PM EDT Office Visit [facility] Urogynecology [address] [place] [phone] Marie Alston MD [address] [place] [address] [facility]rogynecology Start: 02-04-2024 COVID-19 Vaccine ( season) COVID-19 Vaccine ( season) [facility] Start: 02-04-2024 Influenza vaccination Influenza Vaccine (#1) [facility] Start: 01-17-2024 End: 01-17-2024 Admission to same day surgery center 01/17/2024 7:30 AM EDT - 01/17/2024 12:00 PM EDT Surgery [facility] MAIN OR [address] [facility] [place] [phone] Marie Alston MD [address] [place] [address] UTEROSCARAL LIGAMENT SUSPENSION, ANTERIOR/POSTERIOR REPAIR, POSSIBLY SLING PROCEDURE, CYSTOSCOPY [99763 (CPT )] [facility] Comment on above: UTEROSCARAL LIGAMENT SUSPENSION, ANTERIO R/POSTERIOR REPAIR, POSSIBLY SLING PROCEDURE, CYSTOSCOPY [56238 (CPT )] Start: 01-17-2024 End: 01-17-2024 Cmbnd anterpost colporraphy w/cysto ANTERIOR AND POSTERIOR COLPORRHAPHY Incomplete uterovaginal prolapse Cystocele, midline Rectocele Intra-abdominal and pelvic swelling, mass and lump, unspecified site Abnormal findings on diagnostic imaging of other specified body structures 01/17/2024 7:30 AM EDT [facility] Operating Room Start: 01-17-2024 End: 01-17-2024 Colpopexy vaginal intraperitoneal approach COLPOPEXY VAGINAL INTRAPERITONEAL APPROACH (UTEROSCARAL, LEVATOR MYORRHAPHY) Incomplete uterovaginal prolapse Cystocele, midline Rectocele Intra-abdominal and pelvic swelling, mass and lump, unspecified site Abnormal findings on diagnostic imaging of other specified body structures 01/17/2024 7:30 AM EDT [facility] Operating Room Start: 01-17-2024 End: 01-17-2024 Cystourethroscopy CYSTOSCOPY Incomplete uterovaginal prolapse Cystocele, midline Rectocele Intra-abdominal and pelvic swelling, mass and lump, unspecified site Abnormal findings on diagnostic imaging of other specified body structures 01/17/2024 7:30 AM EDT [facility] Operating Room Start: 01-17-2024 End: 01-17-2024 Laps w/vag hysterect 250 gm/&rmvl tube&/ovaries [facility] Operating Room Start: 01-17-2024 End: 01-17-2024 Sling operation stress incontinence SLING OPERATION FOR STRESS INCONTINENCE Incomplete uterovaginal prolapse Cystocele, midline Rectocele Intra-abdominal and pelvic swelling, mass and lump, unspecified site Abnormal findings on diagnostic imaging of other specified body structures 01/17/2024 7:30 AM EDT [facility] Operating Room Start: 01-17-2024 Subsequent hospital visit by physician 01/17/2024 5:30 AM EDT Hospital Encounter [facility] MAIN OR [address] [place] [address] Marie Alston MD [address] [place] [address] [address] [place] [address] [facility] MA[facility] OR Start: 01-05-2024 End: 01-05-2024 Admission to [facility] 01/05/2024 11:00 AM EDT Pre-Admission Testing [facility] Pre-Admit Testing [address] [place] [phone] [facility] Pre-Admit Testing Start: 01-03-2024 End: 01-03-2024 Patient encounter procedure 01/03/2024 10:45 AM EDT Office Visit [facility] Gynecologic Oncology [address] [place] [phone] Leandro Chery MD [address] [facility] [address] [place] [address] [facility] Gynecologic Oncology Start: 12-29-2023 End: 12-29-2023 Admission to establishment 12/29/2023 11:00 AM EDT Pre-Admission Testing [facility] Pre-Admit Testing [address] [place] [id number] [facility] Pre-Admit Testing Start: 12-19-2023 End: 12-19-2023 Admission to same day surgery center 12/19/2023 12:30 PM EDT - 12/19/2023 5:00 PM EDT Surgery [facility] MAIN OR [address] [place] [phone] Leandro Chery MD [address] [facility] [address] [place] [address] LAPAROSCOPIC VAGINAL HYSTERECTOMY WITH REMOVAL BILATERAL SALPINGO OOPHORECTOMY [89151 (CPT )] [facility] MA[facility] OR Comment on above: LAPAROSCOPIC VAGINAL HYSTERECTOMY WITH R EMOVAL BILATERAL SALPINGO OOPHORECTOMY [21263 (CPT )] Start: 12-19-2023 End: 12-19-2023 Anesthesia consultation 12/19/2023 12:30 PM EDT Anesthesia Event [facility] MAIN OR [address] [place] [phone] Cherelle Rivers PA-C [address] [place] [address] [facility] MAIN OR Start: 12-19-2023 End: 12-19-2023 Cmbnd anterpost colporraphy w/cysto ANTERIOR AND POSTERIOR COLPORRHAPHY Intra-abdominal and pelvic swelling, mass and lump, unspecified site Abnormal findings on diagnostic imaging of other specified body structures Incomplete uterovaginal prolapse Cystocele, midline Rectocele 12/19/2023 12:30 PM EDT [facility] Operating Room Start: 12-19-2023 End: 12-19-2023 Colpopexy vaginal intraperitoneal approach COLPOPEXY VAGINAL INTRAPERITONEAL APPROACH (UTEROSCARAL, LEVATOR MYORRHAPHY) Intra-abdominal and pelvic swelling, mass and lump, unspecified site Abnormal findings on diagnostic imaging of other specified body structures Incomplete uterovaginal prolapse Cystocele, midline Rectocele 12/19/2023 12:30 PM EDT [facility] Operating Room Start: 12-19-2023 End: 12-19-2023 Cystourethroscopy CYSTOSCOPY Intra-abdominal and pelvic swelling, mass and lump, unspecified site Abnormal findings on diagnostic imaging of other specified body structures Incomplete uterovaginal prolapse Cystocele, midline Rectocele 12/19/2023 12:30 PM EDT [facility] Operating Room Start: 12-19-2023 End: 12-19-2023 Laps w/vag hysterect 250 gm/&rmvl tube&/ovaries LAPAROSCOPIC VAGINAL HYSTERECTOMY WITH REMOVAL OF TUBES AND/OR OVARIES Intra-abdominal and pelvic swelling, mass and lump, unspecified site Abnormal findings on diagnostic imaging of other specified body structures Incomplete uterovaginal prolapse Cystocele, midline Rectocele 12/19/2023 12:30 PM EDT [facility] Operating Room Start: 12-19-2023 End: 12-19-2023 Sling operation stress incontinence SLING OPERATION FOR STRESS INCONTINENCE Intra-abdominal and pelvic swelling, mass and lump, unspecified site Abnormal findings on diagnostic imaging of other specified body structures Incomplete uterovaginal prolapse Cystocele, midline Rectocele 12/19/2023 12:30 PM EDT [facility] Operating Room Start: 12-19-2023 Subsequent hospital visit by physician 12/19/2023 10:30 AM EDT Hospital Encounter [facility] MAIN OR [address] [place] [address] Leandro Chery MD [address] [facility] [address] [place] [address] [facility] MAIN OR Start: 12-18-2023 End: 12-18-2023 Patient encounter procedure 12/18/2023 1:40 PM EDT Office Visit [facility] [place] [address] [facility] [place] [address] Markus Rascon MD [address] [place] [address] 6 month follow up. Fasting labs prior [facility] Comment on above: 6 month follow up. Fasting labs prior Start: 12-14-2023 End: 12-14-2023 Admission to establishment 12/14/2023 3:00 PM EDT Pre-Admission Testing [facility] Pre-Admit Testing [address] [place] [address] Leandro Chery MD [address] [facility] [address] [place] [address] [facility] Pre-Admit Testing Start: 12-13-2023 End: 03-13-2024 Calcium.ionized [Moles/volume] in Blood CALCIUM, IONIZED Lab Routine Hypercalcemia Expected: 12/13/2023, Expires: 03/13/2024 [facility] Work Phone: Comment on above: Expected: 12/13/2023, Expires: Start: 12-13-2023 End: 03-13-2024 Parathyrin.intact [Mass/volume] in Serum or Plasma PTH INTACT Lab Routine Hypercalcemia Expected: 12/13/2023, Expires: 03/13/2024 [facility] Comment on above: Expected: 12/13/2023, Expires: 4 Start: 12-05-2023 End: 12-05-2023 Patient encounter procedure 12/05/2023 10:00 AM EDT Office Visit [facility] Urogynecology [address] [place] [phone] Marie Alston MD [address] [facility] [address] [place] [address] [facility] Urogynecology Start: 12-04-2023 End: 03-04-2024 25-hydroxyvitamin D3 [Mass/volume] in Serum or Plasma VITAMIN D 25 HYDROXY Lab Routine Age-related osteoporosis without current pathological fracture Expected: 12/04/2023, Expires: 03/04/2024 [facility] Work Phone: Comment on above: Expected: 12/04/2023, Expires: Start: 12-04-2023 End: 03-04-2024 Hemoglobin A1c in Blood HGB A1C Lab Routine Screening for diabetes mellitus Other disorders of glucose transport (HCC) Expected: 12/04/2023, Expires: 03/04/2024 [facility] Work Phone: Comment on above: Expected: 12/04/2023, Expires: Start: 12-04-2023 End: 12-04-2023 ambulatory 12/04/2023 1:45 PM EDT Results Only [facility] [address] [place] [address] [facility] Start: 12-03-2023 Mammography [facility] Start: 12-03-2023 Screening for malignant neoplasm of breast [facility] Start: 11-30-2023 End: 11-30-2023 Patient encounter procedure 11/30/2023 10:00 AM EDT Procedure Visit [facility] Urogynecology [address] [place] [phone] [facility] Urogynecology Start: 11-22-2023 End: 11-21-2024 Creatinine [Mass/volume] in Serum or Plasma Creatinine, Serum Lab Routine Pelvic mass in female Abnormal finding on radiology exam Expected: 11/22/2023 (Approximate), Expires: 11/21/[facility]24 [facility] Comment on above: Expected: 11/22/2023 (Approximate), Expi res: 11/21/2024 Start: 11-22-2023 End: 11-21-2024 CT Pelvis W contrast IV CT pelvis w IV contrast Imaging Routine Pelvic mass in female Abnormal finding on radiology exam Expected: 11/22/2023, Expires: 11/21/2024 [facility] Comment on above: Expected: 11/22/2023, Expires: Start: 11-20-2023 End: 11-20-2023 Patient encounter procedure 11/20/2023 10:30 AM EDT Office Visit Pulmonary Medicine [address] [place] [id number] Nain Campbell MD [address] [place] [address] 8 MTH F/U [facility] Comment on above: 8 MTH F/U Start: 11-18-2023 ANNUAL PCP TEAM CHRONIC DISEASE VISIT ANNUAL PCP TEAM CHRONIC DISEASE VISIT [facility] Start: 11-12-2023 Diabetes mellitus screening Diabetes Screening [facility] Start: 10-16-2023 End: 10-16-2023 Nursing evaluation of patient and report 10/16/2023 8:15 AM EDT Nurse Visit Cardiology [address] [place] [phone] Wstr, Nurse Card Admin [facility] [address] [place] [id number] Age-related osteoporosis without current pathological fracture [M81.0] Cardiology Comment on above: Age-related osteoporosis without current pathological fracture [M81.0] Start: 10-16-2023 End: 10-16-2023 Patient encounter procedure [facility] Comment on above: Age-related osteoporosis without current pathological fracture [M81.0] Start: 09-17-2023 ANNUAL PCP TEAM CHRONIC DISEASE VISIT ANNUAL PCP TEAM CHRONIC DISEASE VISIT [facility] Start: 09-17-2023 SHINGRIX VACCINE (2 of 3) SHINGRIX VACCINE (2 of 3) [facility] Comment on above: Postponed from 06/25/2012 (Declined at t his time) Start: 09-08-2023 LIPID SCREEN LIPID SCREEN [facility] Start: 09-05-2023 End: 12-05-2023 Calcium.ionized [Moles/volume] in Blood CALCIUM IONIZED BLOOD Lab Routine Multinodular thyroid Hypercalcemia Expected: 09/05/2023, Expires: 12/05/2023 [facility] Work Phone: Comment on above: Expected: 09/05/2023, Expires: Start: 09-05-2023 End: 12-05-2023 Parathyrin.intact [Mass/volume] in Serum or Plasma PTH INTACT BLD Lab Routine Multinodular thyroid Hypercalcemia Expected: 09/05/2023, Expires: 12/05/2023 [facility] Work Phone: Comment on above: Expected: 09/05/2023, Expires: Start: 09-05-2023 End: 12-05-2023 Thyrotropin [Units/volume] in Serum or Plasma TSH BLD Lab Routine Multinodular thyroid Expected: 09/05/2023, Expires: 12/05/2023 [facility] Work Phone: Comment on above: Expected: 09/05/2023, Expires: Start: 09-05-2023 End: 12-05-2023 Thyroxine (T4) free [Mass/volume] in Serum or Plasma T4 FREE/FREE THYROX Lab Routine Multinodular thyroid Expected: 09/05/2023, Expires: 12/05/2023 [facility] Work Phone: Comment on above: Expected: 09/05/2023, Expires: Start: 09-05-2023 End: 12-05-2023 Triiodothyronine (T3) [Mass/volume] in Serum or Plasma T3 BLD Lab Routine Multinodular thyroid Expected: 09/05/2023, Expires: 12/05/2023 [facility] Work Phone: Comment on above: Expected: 09/05/2023, Expires: Start: 07-31-2023 Covid-19 Vaccine () Covid-19 Vaccine () [facility] Start: 06-05-2023 Advance Directive Discussion Advance Directive Discussion [facility] Start: 06-05-2023 Behavioral Health Screening Behavioral Health Screening [facility] Start: 05-09-2023 End: 08-08-2023 [id number] [Mass/volume] in Serum or Plasma B2 MICROGLOBULIN B Lab Routine Monoclonal gammopathy Expected: 05/09/2023, Expires: 08/08/2023 [facility] Work Phone: Comment on above: Expected: 05/09/2023, Expires: Start: 05-09-2023 End: 08-08-2023 CBC W Auto Differential panel - Blood CBC + DIFF Lab STAT Monoclonal gammopathy Expected: 05/09/2023, Expires: 08/08/2023 [facility] Work Phone: Comment on above: Expected: 05/09/2023, Expires: Start: 05-09-2023 End: 08-08-2023 Comprehensive metabolic 2000 panel - Serum or Plasma COMP METABOLIC PANEL Lab STAT Monoclonal gammopathy Expected: 05/09/2023, Expires: 08/08/2023 [facility] Work Phone: Comment on above: Expected: 05/09/2023, Expires: Start: 05-09-2023 End: 08-08-2023 IMMUNOGLOBULINS YASMIN IMMUNOGLOBULINS YASMIN Lab Routine Monoclonal gammopathy Expected: 05/09/2023, Expires: 08/08/2023 [facility] Work Phone: Comment on above: Expected: 05/09/2023, Expires: 4 Start: 05-09-2023 End: 08-08-2023 KAPPA/RAMOS,FREE,SER KAPPA/RAMOS,FREE,SER Lab Routine Monoclonal gammopathy Expected: 05/09/2023, Expires: 08/08/2023 [facility] Work Phone: Comment on above: Expected: 05/09/2023, Expires: 4 Start: 05-09-2023 End: 08-08-2023 Lactate dehydrogenase [Enzymatic activity/volume] in Serum or Plasma LD LACTATE DEHYDRO Lab Routine Monoclonal gammopathy Expected: 05/09/2023, Expires: 08/08/2023 [facility] Work Phone: Comment on above: Expected: 05/09/2023, Expires: Start: 05-09-2023 End: 08-08-2023 MONOCLONAL PROT UR W/INTERP MONOCLONAL PROT UR W/INTERP Lab Routine Monoclonal gammopathy Expected: 05/09/2023, Expires: 08/08/2023 [facility] Work Phone: Comment on above: Expected: 05/09/2023, Expires: Start: 05-09-2023 End: 08-08-2023 MONOCLONAL PROTEIN, SERUM (BLOOD) MONOCLONAL PROTEIN, SERUM (BLOOD) Lab Routine Monoclonal gammopathy Expected: 05/09/2023, Expires: 08/08/2023 [facility] Work Phone: Comment on above: Expected: 05/09/2023, Expires: Start: 05-09-2023 End: 08-08-2023 PROTEIN ELECT RND UR W/INTERP PROTEIN ELECT RND UR W/INTERP Lab Routine Monoclonal gammopathy Expected: 05/09/2023, Expires: 08/08/2023 [facility] Work Phone: Comment on above: Expected: 05/09/2023, Expires: Start: 05-09-2023 End: 08-08-2023 PROTEIN ELECTROPHORESIS SERUM W/INTERP PROTEIN ELECTROPHORESIS SERUM W/INTERP Lab Routine Monoclonal gammopathy Expected: 05/09/2023, Expires: 08/08/2023 [facility] Work Phone: Comment on above: Expected: 05/09/2023, Expires: 4 Start: 03-18-2023 ANNUAL PCP TEAM CHRONIC DISEASE VISIT ANNUAL PCP TEAM CHRONIC DISEASE VISIT [facility] Start: 02-03-2023 Covid-19 Vaccine ( season) Covid-19 Vaccine ( season) [facility] Start: 02-03-2023 Influenza vaccination [facility] Start: 01-17-2023 ANNUAL PCP TEAM CHRONIC DISEASE VISIT ANNUAL PCP TEAM CHRONIC DISEASE VISIT [facility] Start: 12-17-2022 ANNUAL PCP TEAM CHRONIC DISEASE VISIT ANNUAL PCP TEAM CHRONIC DISEASE VISIT [facility] Start: 11-30-2022 Mammography MAMMOGRAM [facility] Start: 10-12-2022 ANNUAL PCP TEAM CHRONIC DISEASE VISIT ANNUAL PCP TEAM CHRONIC DISEASE VISIT [facility] Start: 09-19-2022 End: 11-19-2022 Hemoglobin A1c in Blood HGB A1C Lab Routine Hyperglycemia Expected: 09/19/2022, Expires: 11/19/2022 [facility] Work Phone: Comment on above: Expected: 09/19/2022, Expires: 3 Start: 09-16-2022 Adult depression screening assessment DEPRESSION SCREENING [facility] Start: 09-16-2022 ANNUAL PCP TEAM CHRONIC DISEASE VISIT ANNUAL PCP TEAM CHRONIC DISEASE VISIT [facility] Start: 09-16-2022 End: 11-16-2022 Cobalamin (Vitamin B12) [Mass/volume] in Serum or Plasma [facility] Work Phone: Comment on above: Expected: 09/16/2022, Expires: 3 Start: 09-16-2022 End: 11-16-2022 Comprehensive metabolic 2000 panel - Serum or Plasma [facility] Work Phone: Comment on above: Expected: 09/16/2022, Expires: 3 Start: 09-16-2022 End: 11-16-2022 Folate [Mass/volume] in Serum or Plasma [facility] Work Phone: Comment on above: Expected: 09/16/2022, Expires: 3 Start: 09-16-2022 End: 11-16-2022 Thyrotropin [Units/volume] in Serum or Plasma [facility] Work Phone: Comment on above: Expected: 09/16/2022, Expires: 3 Start: 09-07-2022 ANNUAL PCP TEAM CHRONIC DISEASE VISIT ANNUAL PCP TEAM CHRONIC DISEASE VISIT [facility] Start: 07-26-2022 COVID-19 VACCINE (6 - Moderna series) COVID-19 VACCINE (6 - Moderna series) [facility] Start: 05-05-2022 End: 07-05-2022 [id number] [Mass/volume] in Serum or Plasma B2 MICROGLOBULIN B Lab Routine Monoclonal gammopathy Expected: 05/05/2022, Expires: 07/05/2022 [facility] Work Phone: Comment on above: Expected: 05/05/2022, Expires: 3 Start: 05-05-2022 End: 07-05-2022 CBC W Auto Differential panel - Blood CBC + DIFF Lab STAT Monoclonal gammopathy Expected: 05/05/2022, Expires: 07/05/2022 [facility] Work Phone: Comment on above: Expected: 05/05/2022, Expires: 3 Start: 05-05-2022 End: 07-05-2022 Comprehensive metabolic 2000 panel - Serum or Plasma COMP METABOLIC PANEL Lab Routine Monoclonal gammopathy Expected: 05/05/2022, Expires: 07/05/2022 [facility] Work Phone: Comment on above: Expected: 05/05/2022, Expires: 3 Start: 05-05-2022 End: 07-05-2022 KAPPA/RAMOS,FREE,SER KAPPA/RAMOS,FREE,SER Lab Routine Monoclonal gammopathy Expected: 05/05/2022, Expires: 07/05/2022 [facility] Work Phone: Comment on above: Expected: 05/05/2022, Expires: 3 Start: 05-05-2022 End: 07-05-2022 MONOCLONAL PROT UR W/INTERP MONOCLONAL PROT UR W/INTERP Lab Routine Monoclonal gammopathy Expected: 05/05/2022, Expires: 07/05/2022 [facility] Work Phone: Comment on above: Expected: 05/05/2022, Expires: 3 Start: 05-05-2022 End: 07-05-2022 MONOCLONAL PROTEIN, SERUM (BLOOD) MONOCLONAL PROTEIN, SERUM (BLOOD) Lab Routine Monoclonal gammopathy Expected: 05/05/2022, Expires: 07/05/2022 [facility] Work Phone: Comment on above: Expected: 05/05/2022, Expires: 3 Start: 05-05-2022 End: 07-05-2022 PROTEIN ELECT RND UR W/INTERP PROTEIN ELECT RND UR W/INTERP Lab Routine Monoclonal gammopathy Expected: 05/05/2022, Expires: 07/05/2022 [facility] Work Phone: Comment on above: Expected: 05/05/2022, Expires: 3 Start: 05-05-2022 End: 07-05-2022 PROTEIN ELECTROPHORESIS SERUM W/INTERP PROTEIN ELECTROPHORESIS SERUM W/INTERP Lab Routine Monoclonal gammopathy Expected: 05/05/2022, Expires: 07/05/2022 [facility] Work Phone: Comment on above: Expected: 05/05/2022, Expires: 3 Start: 03-18-2022 ANNUAL PCP TEAM CHRONIC DISEASE VISIT ANNUAL PCP TEAM CHRONIC DISEASE VISIT [facility] Start: 02-14-2022 COVID-19 VACCINE (5 - Booster for Moderna series) COVID-19 VACCINE (5 - Booster for Moderna series) [facility] Start: 02-03-2022 Influenza vaccination INFLUENZA (#1) [facility] Start: 01-17-2022 End: 03-19-2022 Urinalysis complete panel - Urine [facility] Work Phone: Comment on above: Expected: 01/17/2022, Expires: 2 Start: 12-17-2021 End: 02-16-2022 Calcium.ionized [Moles/volume] in Blood CALCIUM IONIZED BLOOD Lab Routine Hypercalcemia Expected: 12/17/2021, Expires: 02/16/2022 [facility] Work Phone: Comment on above: Expected: 12/17/2021, Expires: 2 Start: 12-17-2021 End: 12-17-2022 CBC W Auto Differential panel - Blood CBC + DIFF Lab Routine Weight loss Expected: 12/17/2021, Expires: 12/17/2022 [facility] Work Phone: Comment on above: Expected: 12/17/2021, Expires: 3 Start: 12-17-2021 End: 12-17-2022 Comprehensive metabolic 2000 panel - Serum or Plasma COMP METABOLIC PANEL Lab Routine Weight loss Expected: 12/17/2021, Expires: 12/17/2022 [facility] Work Phone: Comment on above: Expected: 12/17/2021, Expires: 3 Start: 12-17-2021 End: 12-17-2022 Lipid 1996 panel - Serum or Plasma LIPID PANEL BASIC Lab Routine Essential hypertension Expected: 12/17/2021, Expires: 12/17/2022 [facility] Work Phone: Comment on above: Expected: 12/17/2021, Expires: 3 Start: 12-17-2021 End: 02-16-2022 Thyrotropin [Units/volume] in Serum or Plasma TSH BLD Lab Routine Weight loss Expected: 12/17/2021, Expires: 02/16/2022 [facility] Work Phone: Comment on above: Expected: 12/17/2021, Expires: 2 Start: 11-12-2021 Mammography MAMMOGRAM [facility] Start: 10-19-2021 End: 12-19-2021 Basic metabolic 2000 panel - Serum or Plasma BASIC METABOLIC PNL Lab Routine HOCM (hypertrophic obstructive cardiomyopathy) (HCC) Expected: 10/19/2021, Expires: 12/19/2021 [facility] Work Phone: Comment on above: Expected: 10/19/2021, Expires: 2 Start: 10-19-2021 End: 12-19-2021 Natriuretic peptide.B prohormone N-Terminal [Mass/volume] in Serum or Plasma NT PRO BNP Lab Routine HOCM (hypertrophic obstructive cardiomyopathy) ([facility]) Dyspnea on exertion Expected: 10/19/2021, Expires: 12/19/2021 [facility] Work Phone: Comment on above: Expected: 10/19/2021, Expires: 2 Start: 10-12-2021 End: 12-12-2021 Comprehensive metabolic 2000 panel - Serum or Plasma [facility] Work Phone: Comment on above: Expected: 10/12/2021, Expires: 2 Start: 10-12-2021 End: 12-12-2021 Magnesium [Mass/volume] in Serum or Plasma [facility] Work Phone: Comment on above: Expected: 10/12/2021, Expires: 2 Start: 10-12-2021 End: 12-12-2021 Thyrotropin [Units/volume] in Serum or Plasma [facility] Work Phone: Comment on above: Expected: 10/12/2021, Expires: 2 Start: 08-06-2021 COVID-19 VACCINE (4 - Booster for Moderna series) COVID-19 VACCINE (4 - Booster for Moderna series) [facility] Start: 06-05-2021 ADVANCE DIRECTIVE DISCUSSION ADVANCE DIRECTIVE DISCUSSION [facility] Start: 02-27-2019 Adult depression screening assessment DEPRESSION SCREENING [facility] Start: 01-24-2017 End: 01-24-2017 [email or web address] Work Phone: Start: 07-28-2016 DTaP/Tdap/Td Vaccines (3 - Td or Tdap) DTaP/Tdap/Td Vaccines (3 - Td or Tdap) [facility] Start: 06-25-2012 SHINGRIX VACCINE (2 of 3) SHINGRIX VACCINE (2 of 3) [facility] Start: 06-25-2012 Zoster Vaccines (2 of 3) Zoster Vaccines (2 of 3) [facility] Start: 2009 RSV Vaccine (1 - 1-dose 60+ series) RSV Vaccine (1 - 1-dose 60+ series) [facility] Start: 1994 COLOGUARD (FIT-DNA) COLOGUARD (FIT-DNA) [facility] Start: [address] COLONOGRAPHY [facility] Start: 1994 FECAL OCCULT BLOOD FECAL OCCULT BLOOD [facility] Start: 1994 Screening for malignant neoplasm of colon [facility] Start: 1994 SIGMOIDOSCOPY SIGMOIDOSCOPY [facility] Start: 1979 Zoledronic acid therapy Alpha-1 Antitrypsin Deficiency Screening [facility] Start: 1967 BP CONTROLLED (<130/80) BP CONTROLLED (<130/80) [facility] Start: 1967 Hepatitis C screening Hepatitis C Screening [facility] Start: 1961 Depression Screening Depression Screening [facility] Start: 1949 Lipid panel Lipid Panel [facility] Start: 1949 Medicare Annual Wellness (AWV) Medicare Annual Wellness (AWV) [facility] Start: 1949 Screening for malignant neoplasm of colon [facility] Start: 1949 Screening for osteoporosis Bone Density Scan [facility] Start: 1949 Thyroid Nodule Ultrasound Thyroid Nodule Ultrasound [facility] Anterior colporraphy rpr cystocele w/cysto ANTERIOR COLPORRHAPHY REPAIR CYSTOCELE (ANTERIOR REPAIR) Incomplete uterovaginal prolapse Cystocele, midline Rectocele [facility] Bacteria identified in Urine by Culture Urine culture Microbiology Routine Abnormal urine finding Ordered: 11/28/2023 [facility] Work Phone: Comment on above: Ordered: 11/28/2023 Colpopexy vaginal intraperitoneal approach COLPOPEXY VAGINAL INTRAPERITONEAL APPROACH (UTEROSCARAL, LEVATOR MYORRHAPHY) Incomplete uterovaginal prolapse Cystocele, midline Rectocele [facility] End: 02-16-2023 Ct abdomen & pelvis w/o contrast material CT ABD/PEL WO IVCON Radiology Routine Weight loss 1 Occurrences starting 01/17/2022 until 02/16/2023 [facility] Work Phone: Comment on above: 1 Occurrences starting 01/17/2022 until 02/16/2023 End: 01-21-2022 Ct abdomen & pelvis w/o contrast material [facility] Work Phone: Comment on above: 1 Occurrences starting 01/21/2022 until 01/21/2022 End: 02-16-2023 Ct thorax w/o contrast material CT CHEST WO IVCON Radiology Routine Weight loss 1 Occurrences starting 01/17/2022 until 02/16/2023 [facility] Work Phone: Comment on above: 1 Occurrences starting 01/17/2022 until 02/16/2023 End: 01-21-2022 Ct thorax w/o contrast material [facility] Work Phone: Comment on above: 1 Occurrences starting 01/21/2022 until 01/21/2022 End: 10-09-2022 Ct upper extremity w/o contrast material CT SHOULDER WO IVCON LT Radiology Routine Other injury of unspecified muscle, fascia and tendon at shoulder and upper arm level, unspecified arm, initial encounter 1 Occurrences starting 09/09/2021 until 10/09/2022 [facility] Work Phone: Comment on above: 1 Occurrences starting 09/09/2021 until 10/09/2022 Cystourethroscopy [employer] omplete uterovaginal prolapse Cystocele, midline Rectocele [facility] End: 10-16-2023 DXA-AXIAL SKELETON DXA-AXIAL SKELETON Radiology Routine Osteoporosis, unspecified Vitamin D deficiency 1 Occurrences starting 09/16/2022 until 10/16/2023 [facility] Work Phone: Comment on above: 1 Occurrences starting 09/16/2022 until 10/16/2023 ECG 12 lead ECG 12 lead CV E CG Routine 12/19/2023 11:50 AM EDT [facility] Work Phone: End: 05-09-2023 ECG COMPLETE ECG COMPLETE ECG Routine HOCM (hypertrophic obstructive cardiomyopathy) (HCC) 1 Occurrences starting 05/09/2022 until 05/09/2023 [facility] Work Phone: Comment on above: 1 Occurrences starting 05/09/2022 until 05/09/2023 ECG COMPLETE ECG COMPLETE ECG Routine Stable angina pectoris (HCC) 09/04/2023 10:56 AM EDT [facility] Work Phone: End: 10-12-2022 Echocardiography ECHO Cardiology Routine Swelling Obstructive cardiomyopathy (HCC) 1 Occurrences starting 10/12/2021 until 10/12/2022 [facility] Work Phone: Comment on above: 1 Occurrences starting 10/12/2021 until 10/12/2022 End: 10-16-2022 ADRIANO SCREENING W MARY ADRIANO SCREENING W MARY Radiology Routine Screening breast examination Encounter for screening mammogram for malignant neoplasm of breast 1 Occurrences starting 09/16/2021 until 10/16/2022 [facility] Work Phone: Comment on above: 1 Occurrences starting 09/16/2021 until 10/16/2022 End: 10-03-2024 NM Heart Perfusion W stress and W radionuclide IV NM CARDIAC PERF STRESS/PHARM Radiology Routine Chest pain, unspecified type 1 Occurrences starting 09/04/2023 until 10/03/2024 [facility] Work Phone: Comment on above: 1 Occurrences starting 09/04/2023 until 10/03/2024 Post colporrhaphy rectocele w/wo perineorrhaphy POSTERIOR COLPORRHAPHY REPAIR RECTOCELE Incomplete uterovaginal prolapse Cystocele, midline Rectocele [facility] End: 05-02-2022 Radiologic examination osseous survey compl [facility] Work Phone: Comment on above: 1 Occurrences starting 05/02/2022 until 05/02/2022 End: 06-11-2023 Radiologic examination osseous survey compl XR BONE SURVEY ROUTINE Radiology Routine Monoclonal gammopathy 1 Occurrences starting 05/12/2022 until 06/11/2023 [facility] Work Phone: Comment on above: 1 Occurrences starting 05/12/2022 until 06/11/2023 Radiologic examinati on osseous survey compl XR BONE SURVEY ROUTINE Radiology Routine Monoclonal gammopathy 05/09/2023 9:19 AM EST [facility] Work Phone: Sling operation stre ss incontinence SLING OPERATION FOR STRESS INCONTINENCE Incomplete uterovaginal prolapse Cystocele, midline Rectocele [facility] SURGICAL PATHOLOGY [facility] Work Phone: Comment on above: Release Upon Ordering for 1 Occurrences starting 03/21/2024, 1 completed Tissue exam Tissue exam Path ology and Cytology Timed Intra-abdominal and pelvic swelling, mass and lump, unspecified site Abnormal findings on diagnostic imaging of other specified body structures Incomplete uterovaginal prolapse Cystocele, midline Rectocele Release Upon Ordering for 1 Occurrences starting 12/19/2023 [facility] Work Phone: Comment on above: Release Upon Ordering for 1 Occurrences starting 12/19/2023 Urinalysis complete panel - Urine Complete Urinalysis Lab Routine Abnormal urine finding Ordered: 11/28/2023 [facility] Comment on above: Ordered: 11/28/2023 End: 02-11-2025 US Carotid arteries - bilateral US CAROTID ARTERIES [facility] Vascular Lab Routine Bilateral carotid artery stenosis 1 Occurrences starting 02/12/2024 until 02/11/2025 [facility] Comment on above: 1 Occurrences starting 02/12/2024 until 02/11/2025 End: 09-17-2023 US CAROTID ARTERIES [facility] US CAROTID ARTERIES [facility] Vascular Lab Routine Bilateral carotid artery stenosis 1 Occurrences starting 09/16/2022 until 09/17/2023 [facility] Work Phone: Comment on above: 1 Occurrences starting 09/16/2022 until 09/17/2023 [facility] Immunizations Immunization Date Immunization Notes Care Provider Brianna luo 04-13-2023 respiratory syncytia l virus (RSV) vaccine, adjuvanted (AREXVY) Echocardiogram [facility] Work Phone: [facility] 03-03-2023 influenza (HD-IIV4) vaccine, age 65+ yr, high dose, quadrivalent, PF (FLUZONE HIGH-DOSE) Immunization [place] [facility] Work Phone: [facility] Work Phone: 03-03-2023 influenza virus vaccine, unspecified formulation Marie Alston MD Work Phone: [facility] 03-18-2022 influenza, high-dose , quadrivalent vaccine (FLUZONE HIGH DOSE QUADRIVALENT) Markus Rascon MD Work Phone: [facility] 03-18-2022 influenza virus vaccine, unspecified formulation Clary Nolasco MD Work Phone: [facility] 12-20-2021 COVID-19 vaccine, booster dose (MODERNA) Markus Rascon MD Work Phone: [facility] 02-17-2021 influenza, high-dose , quadrivalent vaccine (FLUZONE HIGH DOSE QUADRIVALENT) Markus Rascon MD Work Phone: [facility] Work Phone: 08-26-2020 COVID-19 vaccine, fu ll dose (MODERNA) Markus Rascon MD Work Phone: [facility] Work Phone: 07-29-2020 COVID-19 vaccine, fu ll dose (MODERNA) Markus Rascon MD Work Phone: [facility] Work Phone: 03-25-2020 influenza, high-dose , quadrivalent vaccine (FLUZONE HIGH DOSE QUADRIVALENT) Markus Rascon MD Work Phone: [facility] 02-14-2019 influenza, high dose seasonal, preservative-free Markus Rascon MD Work Phone: [facility] 08-09-2018 pneumococcal polysaccharide vaccine, 23 valent Markus Rascon MD Work Phone: [facility] 03-03-2018 influenza, high dose seasonal, preservative-free Markus Rascon MD Work Phone: [facility] 02-21-2017 influenza, high dose seasonal, preservative-free Markus Rascon MD Work Phone: [facility] Work Phone: 02-26-2016 influenza, high dose seasonal, preservative-free Markus Rascon MD Work Phone: [facility] 03-25-2015 influenza, injectabl e, quadrivalent, contains preservative Markus Rascon MD Work Phone: [facility] Work Phone: 06-23-2014 pneumococcal conjuga te vaccine, 13 valent Markus Rascon MD Work Phone: [facility] Work Phone: 03-19-2014 influenza, seasonal, injectable Markus Rascon MD Work Phone: [facility] 03-19-2013 influenza virus vaccine, unspecified formulation Markus Rascon MD Work Phone: [facility] 04-30-2012 zoster vaccine, live Markus Rascon MD Work Phone: [facility] 04-14-2012 influenza virus vaccine, unspecified formulation Markus Rascon MD Work Phone: [facility] 04-11-2011 influenza virus vaccine, unspecified formulation Markus Rascon MD Work Phone: [facility] Work Phone: 04-09-2010 influenza virus vaccine, unspecified formulation Markus Rascon MD Work Phone: [facility] 03-23-2009 influenza virus vaccine, unspecified formulation Markus Rascon MD Work Phone: [facility] Work Phone: 04-25-2008 influenza virus vaccine, unspecified formulation Markus Rascon MD Work Phone: [facility] Work Phone: 04-20-2007 influenza virus vaccine, unspecified formulation Markus Rascon MD Work Phone: [facility] Work Phone: 07-28-2006 tetanus toxoid, reduced diphtheria toxoid, and acellular pertussis vaccine, adsorbed Markus Rascon MD Work Phone: [facility] Work Phone: 05-17-2006 influenza virus vaccine, unspecified formulation Markus Rascon MD Work Phone: [facility] Work Phone: 04-22-2005 influenza virus vaccine, unspecified formulation Markus Rascon MD Work Phone: [facility] 09-13-2000 pneumococcal polysaccharide vaccine, 23 valent Markus Rascon MD Work Phone: [facility] Work Phone: 10-12-1992 diphtheria and tetan us toxoids, adsorbed for pediatric use Markus Rascon MD Work Phone: [facility] Work Phone: Payers Date Payer Category Payer Medicare MEDICARE MEDICAR E A AND B [id number] 2014-Present [phone] [address] [address] [place] [address] Medicare [id number] 2014 Medicare [id number] 2014 Medicare [id number] 1990 Unknown [facility] [id number] 1990-Present [address] [place] [address] Indemnity [id number] 1990 Unknown [id number] 1990 Unknown [id number] Social History Date Type Detail Facility Start: 07-21-2011 End: 01-17-2022 Tobacco smoking status NHIS Never smoked tobacco [facility] Work Phone: Start: 07-02-2021 End: 03-05-2024 Alcohol intake Current drinker of alcohol (finding) [facility] Start: 07-02-2021 End: 03-05-2024 Alcohol intake [facility] Start: 04-29-2020 End: 09-13-2022 History SDOH Alcohol Frequency 2 [facility] Start: 04-29-2020 End: 09-13-2022 History SDOH Alcohol Std Drinks 1 [facility] Start: 11-19-2013 History SDOH Alcohol Comment Occasionally [facility] Start: 12-02-2019 History SDOH Financial 5 [facility] Start: 12-02-2019 Education 21 [facility] Start: 1950 Sex Assigned At Female [facility] Start: 10-24-2020 End: 05-02-2022 Exposure to SARS-CoV-2 (event) Not sure [facility] Start: 07-21-2011 End: 01-17-2022 Tobacco use and exposure Smokeless tobacco non-user [facility] Start: 01-17-2022 Tobacco Comment Father smoked in childhood home. Spouse does not smoke. [facility] Start: 01-24-2022 End: 02-03-2022 Exposure to SARS-CoV-2 (event) Unable to assess [facility] Start: 03-15-2022 End: 09-13-2022 History SDOH Social Connections Phone 98 [facility] Start: 09-13-2022 History SDOH Social Connections Living 3 [facility] Start: 09-12-2022 End: 03-05-2024 Social connection and isolation panel [facility] In a typical week, h ow many times do you talk on the telephone with family, friends, or neighbors? Patient refused [facility] Are you now , , , , never or living with a partner? [facility] How often to you hav e a drink containing alcohol? Monthly or less [facility] How many standard drinks containing alcohol do you have on a typical day? 1 or 2 [facility] How often do you hav e 6 or more drinks on 1 occasion? Never [facility] (I/We) worried malka er (my/our) food would run out before (I/we) got money to buy more. Never true [facility] In the past 12 month s, was there a time when you were not able to pay the mortgage or rent on time? No [facility] Start: 10-06-2018 Gender identity Identifies as female gender (finding) [facility] Start: 10-06-2018 Sexual orientation Heterosexual (fiordaliza smith) [facility] Start: 11-20-2023 Alcohol Comment social [facility] Start: 1950 Sex assigned at Not on file [facility] Start: 12-05-2023 Alcohol Comment Occasional glass of wine [facility] Do you feel stress - tense, restless, nervous, or anxious, or unable to sleep at night because your mind is troubled all the time - these days [OSQ] Only a little [facility] Medical Equipment Procedure Code Equipment Code Equipment Origin al Text Equipment Identifier Dates Sling Obtryx Ii Halo - [id number] - [id number] Start: 12-19-2023 Clinical Notes 09-24-2020 to 03-21-2024 Emma Barcenas RN - 03/21/2024 12:45 PM Emma Black RN - 03/21/2024 12:45 PM Emma Black RN - 03/21/2024 12:12 PM Emma Black RN - 03/21/2024 12:07 PM EDT Note Date & Type Note Facility 03-21-2024 Nurse Note Patient awoken, still very drowsy, at bedside, encouraging her to keep her eyes open. assisting her to drink her coffee. [facility] 03-21-2024 Nurse Note Patient awoken, still very drowsy, at bedside, encouraging her to keep her eyes open. assisting her to drink her coffee. Dr Hamlin at bedside to speak to patient's regarding procedures. Patient received in phase II via cart in left lateral position, eyes closed, responds to tactile stimuli, skin warm and dry, very drowsy, respirations regular and unlabored. Abdomen soft and non distended, no grimacing with light palpation of abdomen. brought to bedside with patient. Patient continues to rest on left side. documented in this encounter [facility] 03-21-2024 History and physical note HISTORY AND PHYSICAL Vandana Mitchell 1950 REFERRING PHYSICIAN: Markus Rascon MD CHIEF COMPLAINT: Consult (Iron deficiency anemia, unspecified iron deficiency anemia type [D50.9]; Family history of colon cancer [Z80.0]; Weight loss [R63.4]; Heme positive stool [R19.5]/) HPI: The patient is a 73 year old female referred for endoscopy. Vandana notes no history of colon complaints. The patient notes no history of upper GI complaints. Patient was noted to be anemic as well as losing weight steadily over the last 6 months. Vandana has undergone prior endoscopy. 2020 The patient is being seen by me today at the request of Dr. Markus Rascon MD for my opinion and advice regarding Iron deficiency anemia, unspecified iron deficiency anemia type Family history of colon cancer Weight loss Heme positive stool. PAST MEDICAL HISTORY PAST MEDICAL HISTORY Diagnosis Date Arthritis Diastolic dysfunction Grade I Disorder of bone and cartilage, unspecified Diverticulosis 2009 colonoscopy History of transfusion HOCM (hypertrophic obstructive cardiomyopathy) (HCC) Insomnia, unspecified Melanocytic Nevocellular Nevi pigmented moles of trunk: back mainly 08/02/2011 Mitral valve disorders Monoclonal gammopathy 04/2017 Osteoporosis Other diseases of lung, not elsewhere classified restrictive lung disease Other pulmonary embolism and infarction 07/25/2012 ? had pe with normal d dimer. saw pulmonary. not convinced she did have one. Renal cyst Small airways disease Possible asthma. Patient unable to perform definitive test SVT (supraventricular tachycardia) (HCC) 01/14/2020 Unspecified essential hypertension PAST SURGICAL HISTORY PAST SURGICAL HISTORY Procedure Laterality Date BACK SURGERY HX BIOPSY BREAST OPEN INCISIONAL left Bx of breast, incisional COLONOSCOPY FLX DX W/COLLJ SPEC WHEN PFRMD 10/27/2004 Colonoscopy COLONOSCOPY FLX DX W/COLLJ SPEC WHEN PFRMD 02/22/2010 Colonoscopy COLONOSCOPY FLX DX W/COLLJ SPEC WHEN PFRMD 03/19/2015 Colonoscopy CORRECT BUNION,SIMPLE CORRECTION HAMMERTOE EYE SURGERY HX PAST SURGICAL HISTORY OF scoliosis surgery PAST SURGICAL HISTORY OF laser kidney stone PAST SURGICAL HISTORY OF lap hysterectomy. benign ov mass TONSILLECTOMY HX TONSILLECTOMY PRIMARY/SECONDARY Tonsillectomy CURRENT MEDICATIONS Current Outpatient Medications Medication Sig ferrous sulfate 325 mg (65 mg iron) tablet Take 1 tablet by mouth two times a day with meals. dilTIAZem CD (CARDIZEM CD) 180 mg 24 hr capsule Take 1 capsule by mouth once daily. albuterol HFA (VENTOLIN HFA) 90 mcg/actuation inhaler Inhale 2 Puffs as instructed every 4 hours as needed for wheezing/shortness of breath. fluticasone-salmeterol (WIXELA INHUB) 250-50 mcg/dose inhaler Inhale 1 Puff as instructed two times a day. calcium citrate (CITRACAL ORAL) Take 2 capsules by mouth two times a day. clindamycin (CLEOCIN T) 1 % gel Apply to affected area once daily. denosumab (PROLIA) 60 mg/mL Inject subcutaneously once every 6 months. melatonin 3 mg tablet Take 3 mg by mouth. qhs acetaminophen 325 mg cap Take by mouth as needed. MULTIVITAMIN ORAL Take 1 tablet by mouth once daily. No current facility-administered medications for this visit. ALLERGIES: Amoxicillin, Asa [Salicylates], Diclofenac, Iodine, and Monistat 1 [Tioconazole] PERSONAL HISTORY: SOCIAL HISTORY Social History Tobacco Use Smoking status: Never Smokeless tobacco: Never Tobacco comments: Father smoked in childhood home. Spouse does not smoke. Vaping Use Vaping status: Never Used Substance Use Topics Alcohol use: Yes Comment: Occasionally. Drug use: No FAMILY HISTORY: FAMILY HISTORY FAMILY HISTORY Problem Relation Age of Onset Colon Cancer Mother 56 Hypertension Mother Colon Cancer Father Diabetes Father Hypertension Maternal Grandmother REVIEW OF SYMPTOMS: negative except as noted above PHYSICAL EXAMINATION: General: The patient is 73 year old female, well nourished, well hydrated in no acute distress. The patient is oriented to time, place, and person. VITALS: Blood pressure 189/82, pulse 91, height 158.2 cm (5' 2.3 ), weight 49.9 kg (110 lb), SpO2 98%. Body mass index is 19.93 kg/m . HEENT: Normal cephalic, ataumatic, pupils are equally round, sclera are anicteric, mucous membranes are moist, oropharynx is clear. Neck has no masses, asymmetry or lymphadenopathy. Thyroid is unremarkable. Respiratory: Clear to auscultation and percussion. Normal respiratory excursion and pattern. Cardiac: Examination is regular rate and rhythm. Abdominal exam: Soft, nontender, with no palpable masses. No hepatosplenomegaly. No palpable hernias. Rectal exam: exam deferred Extremities: no clubbing, cyanosis or edema. No adenopathy. Other: LABORATORY VALUES: As Noted RADIOLOGIC STUDIES: As Noted Assessment IMPRESSION: Iron deficiency anemia, unspecified iron deficiency anemia type Family history of colon cancer Weight loss Heme positive stool PLAN: I plan to perform upper and lower endoscopy. We discussed the risks and benefits of the planned endoscopy. I have informed the patient that complications can occur including failure to complete the endoscopy and perforation. The patient had the opportunity to ask questions concerning the planned endoscopy. My staff has also explained the procedure to the patient in understandable terms and has given the patient printed material concerning the procedure. The patient freely consents to surgery. I plan to use Miralax bowel preperation for endoscopy Diagnoses: (D50.9) Iron deficiency anemia, unspecified iron deficiency anemia type (Z80.0) Family history of colon cancer (R63.4) Weight loss (R19.5) Heme positive stool My findings have been communicated to Dr. Markus Rascon MD via shared medical record. This note will be forwarded to Dr. Markus Rascon MD. Return to Clinic: The patient is instructed to follow-up with me after the testing has been completed. Daryl Hamlin III, MD UPDATED HISTORY AND PHYSICAL EXAMINATION SERVICE DATE: 03/21/2024 SERVICE TIME: 11:24 AM SENSITIVE EXAMINATION CONSENT: The sensitive examination was discussed with the Patient or Patient's Authorized Lineman. As applicable, any other physician, advance practice provider, medical student, or other health professional student that will be observing or involved in the sensitive examination for educational or training purposes was discussed with the Patient or Authorized Lineman. The Patient or Authorized Lineman has agreed to proceed with the sensitive examination. (Sensitive examination includes inspection and/or palpation of the breasts, pelvis, prostate and anorectal regions) PHYSICAL EXAM MUST BE COMPLETED ON ADMISSION The History and Physical (completed in the past 30 days) has been reviewed and the patient has been examined. The contents accurately reflect the patient's condition with the following additions or revisions since the H&P was completed. Examination indicates no changes. This H&P can be found in the attached. SIGNATURE: Daryl Hamlin III, MD PATIENT NAME: Vandana Mitchell DATE: March 21, 2024 TIME: 11:24 AM [facility] 03-21-2024 History and physical note HISTORY AND PHYSICAL Vandana Mitchell 1950 REFERRING PHYSICIAN: Markus Rascon MD CHIEF COMPLAINT: Consult (Iron deficiency anemia, unspecified iron deficiency anemia type [D50.9]; Family history of colon cancer [Z80.0]; Weight loss [R63.4]; Heme positive stool [R19.5]/) HPI: The patient is a 73 year old female referred for endoscopy. Vandana notes no history of colon complaints. The patient notes no history of upper GI complaints. Patient was noted to be anemic as well as losing weight steadily over the last 6 months. Vandana has undergone prior endoscopy. 2020 The patient is being seen by me today at the request of Dr. Markus Rascon MD for my opinion and advice regarding Iron deficiency anemia, unspecified iron deficiency anemia type Family history of colon cancer Weight loss Heme positive stool. PAST MEDICAL HISTORY PAST MEDICAL HISTORY Diagnosis Date Arthritis Diastolic dysfunction Grade I Disorder of bone and cartilage, unspecified Diverticulosis 2009 colonoscopy History of transfusion HOCM (hypertrophic obstructive cardiomyopathy) (HCC) Insomnia, unspecified Melanocytic Nevocellular Nevi pigmented moles of trunk: back mainly 08/02/2011 Mitral valve disorders Monoclonal gammopathy 04/2017 Osteoporosis Other diseases of lung, not elsewhere classified restrictive lung disease Other pulmonary embolism and infarction 07/25/2012 ? had pe with normal d dimer. saw pulmonary. not convinced she did have one. Renal cyst Small airways disease Possible asthma. Patient unable to perform definitive test SVT (supraventricular tachycardia) (HCC) 01/14/2020 Unspecified essential hypertension PAST SURGICAL HISTORY PAST SURGICAL HISTORY Procedure Laterality Date BACK SURGERY HX BIOPSY BREAST OPEN INCISIONAL left Bx of breast, incisional COLONOSCOPY FLX DX W/COLLJ SPEC WHEN PFRMD 10/27/2004 Colonoscopy COLONOSCOPY FLX DX W/COLLJ SPEC WHEN PFRMD 02/22/2010 Colonoscopy COLONOSCOPY FLX DX W/COLLJ SPEC WHEN PFRMD 03/19/2015 Colonoscopy CORRECT BUNION,SIMPLE CORRECTION HAMMERTOE EYE SURGERY HX PAST SURGICAL HISTORY OF scoliosis surgery PAST SURGICAL HISTORY OF laser kidney stone PAST SURGICAL HISTORY OF lap hysterectomy. benign ov mass TONSILLECTOMY HX TONSILLECTOMY PRIMARY/SECONDARY <AGE 11 Tonsillectomy CURRENT MEDICATIONS Current Outpatient Medications Medication Sig ferrous sulfate 325 mg (65 mg iron) tablet Take 1 tablet by mouth two times a day with meals. dilTIAZem CD (CARDIZEM CD) 180 mg 24 hr capsule Take 1 capsule by mouth once daily. albuterol HFA (VENTOLIN HFA) 90 mcg/actuation inhaler Inhale 2 Puffs as instructed every 4 hours as needed for wheezing/shortness of breath. fluticasone-salmeterol (WIXELA INHUB) 250-50 mcg/dose inhaler Inhale 1 Puff as instructed two times a day. calcium citrate (CITRACAL ORAL) Take 2 capsules by mouth two times a day. clindamycin (CLEOCIN T) 1 % gel Apply to affected area once daily. denosumab (PROLIA) 60 mg/mL Inject subcutaneously once every 6 months. melatonin 3 mg tablet Take 3 mg by mouth. qhs acetaminophen 325 mg cap Take by mouth as needed. MULTIVITAMIN ORAL Take 1 tablet by mouth once daily. No current facility-administered medications for this visit. ALLERGIES: Amoxicillin, Asa [Salicylates], Diclofenac, Iodine, and Monistat 1 [Tioconazole] PERSONAL HISTORY: SOCIAL HISTORY Social History Tobacco Use Smoking status: Never Smokeless tobacco: Never Tobacco comments: Father smoked in childhood home. Spouse does not smoke. Vaping Use Vaping status: Never Used Substance Use Topics Alcohol use: Yes Comment: Occasionally. Drug use: No FAMILY HISTORY: FAMILY HISTORY FAMILY HISTORY Problem Relation Age of Onset Colon Cancer Mother 56 Hypertension Mother Colon Cancer Father Diabetes Father Hypertension Maternal Grandmother REVIEW OF SYMPTOMS: negative except as noted above PHYSICAL EXAMINATION: General: The patient is 73 year old female, well nourished, well hydrated in no acute distress. The patient is oriented to time, place, and person. VITALS: Blood pressure 189/82, pulse 91, height 158.2 cm (5' 2.3 ), weight 49.9 kg (110 lb), SpO2 98%. Body mass index is 19.93 kg/m . HEENT: Normal cephalic, ataumatic, pupils are equally round, sclera are anicteric, mucous membranes are moist, oropharynx is clear. Neck has no masses, asymmetry or lymphadenopathy. Thyroid is unremarkable. Respiratory: Clear to auscultation and percussion. Normal respiratory excursion and pattern. Cardiac: Examination is regular rate and rhythm. Abdominal exam: Soft, nontender, with no palpable masses. No hepatosplenomegaly. No palpable hernias. Rectal exam: exam deferred Extremities: no clubbing, cyanosis or edema. No adenopathy. Other: LABORATORY VALUES: As Noted RADIOLOGIC STUDIES: As Noted Assessment IMPRESSION: Iron deficiency anemia, unspecified iron deficiency anemia type Family history of colon cancer Weight loss Heme positive stool PLAN: I plan to perform upper and lower endoscopy. We discussed the risks and benefits of the planned endoscopy. I have informed the patient that complications can occur including failure to complete the endoscopy and perforation. The patient had the opportunity to ask questions concerning the planned endoscopy. My staff has also explained the procedure to the patient in understandable terms and has given the patient printed material concerning the procedure. The patient freely consents to surgery. I plan to use Miralax bowel preperation for endoscopy Diagnoses: (D50.9) Iron deficiency anemia, unspecified iron deficiency anemia type (Z80.0) Family history of colon cancer (R63.4) Weight loss (R19.5) Heme positive stool My findings have been communicated to Dr. Markus Rascon MD via shared medical record. This note will be forwarded to Dr. Markus Rascon MD. Return to Clinic: The patient is instructed to follow-up with me after the testing has been completed. Daryl Hamlin III, MD UPDATED HISTORY AND PHYSICAL EXAMINATION SERVICE DATE: 03/21/2024 SERVICE TIME: 11:24 AM SENSITIVE EXAMINATION CONSENT: The sensitive examination was discussed with the Patient or Patient's Authorized Lineman. As applicable, any other physician, advance practice provider, medical student, or other health professional student that will be observing or involved in the sensitive examination for educational or training purposes was discussed with the Patient or Authorized Lineman. The Patient or Authorized Lineman has agreed to proceed with the sensitive examination. (Sensitive examination includes inspection and/or palpation of the breasts, pelvis, prostate and anorectal regions) PHYSICAL EXAM MUST BE COMPLETED ON ADMISSION The History and Physical (completed in the past 30 days) has been reviewed and the patient has been examined. The contents accurately reflect the patient's condition with the following additions or revisions since the H&P was completed. Examination indicates no changes. This H&P can be found in the attached. SIGNATURE: Daryl Hamlin III, MD PATIENT NAME: Vandana Mitchell DATE: March 21, 2024 TIME: 11:24 AM documented in this encounter [facility] 03-21-2024 Note Formatting of this n ote might be different from the original. The patient received a copy of Colonoscopy and EGD discharge instructions that contain information for how to contact the physician who performed the procedure and when to seek medical care. [facility] 03-21-2024 Miscellaneous Notes The patient received a copy of Colonoscopy and EGD discharge instructions that contain information for how to contact the physician who performed the procedure and when to seek medical care. documented in this encounter [facility] 03-21-2024 Note HNO ID: [id number] Author: EMMA BARCENAS RN Service: ? Author Type: Registered Nurse Type: Nursing Progress Note Filed: 03/21/2024 12:12 Note Text: Dr Hamlin at bedside to speak to patient's regarding procedures. [facility] 03-21-[address] Hamlin at bedside to speak to patient's regarding procedures. [facility] 03-21-2024 Nurse Note Patient received in phase II via cart in left lateral position, eyes closed, responds to tactile stimuli, skin warm and dry, very drowsy, respirations regular and unlabored. Abdomen soft and non distended, no grimacing with light palpation of abdomen. brought to bedside with patient. Patient continues to rest on left side. [facility] 03-19-2024 Miscellaneous Notes Patient notified Melony Kaufman Track Inspector Tell her to stop taking the iron now she will be fine Patient states she received colonoscopy prep instructions when in the office on 03/05/2024. States she received a 2nd set of instructions which included to stop taking iron 7 days prior to procedure. She has not done that and is asking if she will need to reschedule her procedure? She is scheduled for 03/21/2024. Patient can be reached back at [phone]. documented in this encounter [facility] 03-19-2024 Telephone encounter Note Patient notified Melony Kaufman Track Inspector [facility] 03-19-2024 Telephone encounter Note Tell her to stop taking the iron now she will be fine [facility] 03-19-2024 Telephone encounter Note Patient states she received colonoscopy prep instructions when in the office on 03/05/2024. States she received a 2nd set of instructions which included to stop taking iron 7 days prior to procedure. She has not done that and is asking if she will need to reschedule her procedure? She is scheduled for 03/21/2024. Patient can be reached back at [phone]. [facility] 03-18-2024 Telephone encounter Note Spoke with patient and advised of information per provider. Patient verbalized understanding. No further questions at this time. Advised to call if any future problems or concerns. Provider message noted. Encounter closed. [facility] 03-18-2024 Miscellaneous Notes Spoke with patient and advised of information per provider. Patient verbalized understanding. No further questions at this time. Advised to call if any future problems or concerns. Provider message noted. Encounter closed. OK to take medications as prescribed. Patient having colonoscopy on 03/[address] Hamlin wants to know if she can take diltiazem and her inhaler? documented in this encounter [facility] 03-18-2024 Telephone encounter Note OK to take medications as prescribed. [facility] Work Phone: 03-18-2024 Telephone encounter Note Patient having colonoscopy on 03/[address] Hamlin wants to know if she can take diltiazem and her inhaler? [facility] 03-13-2024 Telephone encounter Note Pt requesting a 90 day supply on medication below. The patient has been identified by name and date of : Yes Caregiver verified no other encounters exist for this prescription request: Yes Caregiver confirmed with patient/requestor that no other refills are due, in the near future, with this provider at this time: Yes The last office visit in the department: 03/12/2024 Does the patient have a future office visit with this provider/department: Yes 04/03/2024 Requested Prescriptions Pending Prescriptions Disp Refills dilTIAZem CD (CARDIZEM CD, CARTIA XT) 180 mg 24 hr capsule [Pharmacy Med Name: DILTIAZEM 24H ER(CD) 180 MG CP] 90 capsule 5 Sig: take 1 capsule by mouth once daily Jo Ann Herman LPN March 13, 2024 10:27 AM [facility] 03-13-2024 Miscellaneous Notes Pt requesting a 90 day supply on medication below. The patient has been identified by name and date of : Yes Caregiver verified no other encounters exist for this prescription request: Yes Caregiver confirmed with patient/requestor that no other refills are due, in the near future, with this provider at this time: Yes The last office visit in the department: 03/12/2024 Does the patient have a future office visit with this provider/department: Yes 04/03/2024 Requested Prescriptions Pending Prescriptions Disp Refills dilTIAZem CD (CARDIZEM CD, CARTIA XT) 180 mg 24 hr capsule [Pharmacy Med Name: DILTIAZEM 24H ER(CD) 180 MG CP] 90 capsule 5 Sig: take 1 capsule by mouth once daily Jo Ann Herman LPN March 13, 2024 10:27 AM documented in this encounter [facility] 03-12-2024 Instructions Debbie Constantino APRN.LIVESTOCK SHOWMAN - 03/12/2024 10:48 AM EDT Get the colonoscopy, as scheduled. Recheck in 2-3 weeks. documented in this encounter [facility] 03-12-2024 Note HNO ID: [id number] Author: DEBBIE CONSTANTINO APRN.MARIBELL Service: ? Author Type: Nurse Practitioner Type: Progress Notes Filed: 03/12/2024 17:11 Note Text: This is a 73 year old female who presents today with: Patient presents with: Recheck: 4 week follow up- weight loss HISTORY OF PRESENT ILLNESS: Vandana Mitchell is a 73 year old female. Patient presents with: Recheck: 4 week follow up- weight loss Pt presents today to follow-up on weight loss. Losing weight since 2020. Got labs, found to be anemic. Anemic work-up showed + ifob. She did see gen surg and she is schedule for EGD and colonoscopy next week. She has a family hx of colon ca in her parents. Does drink a boost a day. Refers since her surgery/hyster, appetite has been less, but states normally eats pretty well. She is taking iron twice daily. Stools can start with a couple black judith, but then have a brown stool. No obvious blood. She did bring in home blood pressures -- primarily in the 120's with occ 130 and 140's. No chest pain/SOB. 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 had pe with normal d dimer. saw pulmonary. not convinced she did have one. Renal cyst Small airways disease Possible asthma. Patient unable to perform definitive test SVT (supraventricular tachycardia) (HCC) 01/14/2020 Unspecified essential hypertension PAST SURGICAL HISTORY Procedure Laterality Date BACK SURGERY HX BIOPSY BREAST OPEN INCISIONAL left Bx of breast, incisional COLONOSCOPY FLX DX W/COLLJ SPEC WHEN PFRMD 10/27/2004 Colonoscopy COLONOSCOPY FLX DX W/COLLJ SPEC WHEN PFRMD 02/22/2010 Colonoscopy COLONOSCOPY FLX DX W/COLLJ SPEC WHEN PFRMD 03/19/2015 Colonoscopy CORRECT BUNION,SIMPLE CORRECTION [facility] EYE SURGERY HX PAST SURGICAL HISTORY OF scoliosis surgery PAST SURGICAL HISTORY OF laser kidney stone PAST SURGICAL HISTORY OF lap hysterectomy. benign ov mass TONSILLECTOMY HX TONSILLECTOMY PRIMARY/SECONDARY Tonsillectomy ALLERGIES Amoxicillin, Asa [Salicylates], Diclofenac, Iodine, and Monistat 1 [Tioconazole] MEDICATIONS Current Outpatient Medications Medication Sig ferrous sulfate 325 mg (65 mg iron) tablet Take 1 tablet by mouth two times a day with meals. dilTIAZem CD (CARDIZEM CD) 180 mg 24 hr capsule Take 1 capsule by mouth once daily. albuterol HFA (VENTOLIN HFA) 90 mcg/actuation inhaler Inhale 2 Puffs as instructed every 4 hours as needed for wheezing/shortness of breath. fluticasone-salmeterol (WIXELA INHUB) 250-50 mcg/dose inhaler Inhale 1 Puff as instructed two times a day. calcium citrate (CITRACAL ORAL) Take 2 capsules by mouth two times a day. clindamycin (CLEOCIN T) 1 % gel Apply to affected area once daily. denosumab (PROLIA) 60 mg/mL Inject subcutaneously once every 6 months. melatonin 3 mg tablet Take 3 mg by mouth. qhs acetaminophen 325 mg cap Take by mouth as needed. MULTIVITAMIN ORAL Take 1 tablet by mouth once daily. No current facility-administered medications for this visit. FAMILY HISTORY Problem Relation Age of Onset Colon Cancer Mother 56 Hypertension Mother Colon Cancer Father Diabetes Father Hypertension Maternal Grandmother Social History Tobacco Use Smoking status: Never Smokeless tobacco: Never Tobacco comments: Father smoked in childhood home. Spouse does not smoke. Vaping Use Vaping status: Never Used Substance Use Topics Alcohol use: Yes Comment: Occasionally. Drug use: No EXAM: BP 148/86 Pulse 86 Resp 16 Wt 49.4 kg (109 lb) SpO2 95% BMI 19.74 kg/m? PHYSICAL EXAM: General Appearance: Well appearing, alert, in no acute distress, well-hydrated, well nourished.. Skin: Skin color, texture, turgor normal, no suspicious rashes or lesions. Head: Normocephalic, no masses, lesions, tenderness or abnormalities. Eyes: Anicteric sclera. Extraocular movements are intact. . Lungs: Lungs clear to auscultation. No wheezing, rhonchi, rales.. Heart: RRR without murmur, gallop, or rubs. No ectopy. Extremities: No deformities, edema, skin discoloration, clubbing or cyanosis. Good capillary refill. . Neurologic: Gait normal. ASSESSMENT/PLAN: 1. Weight loss - ICD9: 783.21, ICD10: R63.4 (primary diagnosis) Stable. Continue boost. Get the EGD and colonoscopy as planned. Recheck in 2-4 weeks. 2. Iron deficiency anemia, unspecified iron deficiency anemia type - ICD9: 280.9, ICD10: D50.9 C (more content not included)... [facility] 03-12-2024 History of Present illness Narrative This is a 73 year old female who presents today with: Patient presents with: Recheck: 4 week follow up- weight loss HISTORY OF PRESENT ILLNESS: Vandana Mitchell is a 73 year old female. Patient presents with: Recheck: 4 week follow up- weight loss Pt presents today to follow-up on weight loss. Losing weight since 2020. Got labs, found to be anemic. Anemic work-up showed + ifob. She did see gen surg and she is schedule for EGD and colonoscopy next week. She has a family hx of colon ca in her parents. Does drink a boost a day. Refers since her surgery/hyster, appetite has been less, but states normally eats pretty well. She is taking iron twice daily. Stools can start with a couple black judith, but then have a brown stool. No obvious blood. She did bring in home blood pressures -- primarily in the 120's with occ 130 and 140's. No chest pain/SOB. 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 had pe with normal d dimer. saw pulmonary. not convinced she did have one. Renal cyst Small airways disease Possible asthma. Patient unable to perform definitive test SVT (supraventricular tachycardia) ([facility]) 01/14/2020 Unspecified essential hypertension PAST SURGICAL HISTORY Procedure Laterality Date BACK SURGERY HX BIOPSY BREAST OPEN INCISIONAL left Bx of breast, incisional COLONOSCOPY FLX DX W/COLLJ SPEC WHEN PFRMD 10/27/2004 Colonoscopy COLONOSCOPY FLX DX W/COLLJ SPEC WHEN PFRMD 02/22/2010 Colonoscopy COLONOSCOPY FLX DX W/COLLJ SPEC WHEN PFRMD 03/19/2015 Colonoscopy CORRECT BUNION,SIMPLE CORRECTION [facility] EYE SURGERY HX PAST SURGICAL HISTORY OF scoliosis surgery PAST SURGICAL HISTORY OF laser kidney stone PAST SURGICAL HISTORY OF lap hysterectomy. benign ov mass TONSILLECTOMY HX TONSILLECTOMY PRIMARY/SECONDARY <AGE 12 Tonsillectomy ALLERGIES Amoxicillin, Asa [Salicylates], Diclofenac, Iodine, and Monistat 1 [Tioconazole] MEDICATIONS Current Outpatient Medications Medication Sig ferrous sulfate 325 mg (65 mg iron) tablet Take 1 tablet by mouth two times a day with meals. dilTIAZem CD (CARDIZEM CD) 180 mg 24 hr capsule Take 1 capsule by mouth once daily. albuterol HFA (VENTOLIN HFA) 90 mcg/actuation inhaler Inhale 2 Puffs as instructed every 4 hours as needed for wheezing/shortness of breath. fluticasone-salmeterol (WIXELA INHUB) 250-50 mcg/dose inhaler Inhale 1 Puff as instructed two times a day. calcium citrate (CITRACAL ORAL) Take 2 capsules by mouth two times a day. clindamycin (CLEOCIN T) 1 % gel Apply to affected area once daily. denosumab (PROLIA) 60 mg/mL Inject subcutaneously once every 6 months. melatonin 3 mg tablet Take 3 mg by mouth. qhs acetaminophen 325 mg cap Take by mouth as needed. MULTIVITAMIN ORAL Take 1 tablet by mouth once daily. No current facility-administered medications for this visit. FAMILY HISTORY Problem Relation Age of Onset Colon Cancer Mother 56 Hypertension Mother Colon Cancer Father Diabetes Father Hypertension Maternal Grandmother Social History Tobacco Use Smoking status: Never Smokeless tobacco: Never Tobacco comments: Father smoked in childhood home. Spouse does not smoke. Vaping Use Vaping status: Never Used Substance Use Topics Alcohol use: Yes Comment: Occasionally. Drug use: No EXAM: BP 148/86 Pulse 86 Resp 16 Wt 49.4 kg (109 lb) SpO2 95% BMI 19.74 kg/m PHYSICAL EXAM: General Appearance: Well appearing, alert, in no acute distress, well-hydrated, well nourished.. Skin: Skin color, texture, turgor normal, no suspicious rashes or lesions. Head: Normocephalic, no masses, lesions, tenderness or abnormalities. Eyes: Anicteric sclera. Extraocular movements are intact. . Lungs: Lungs clear to auscultation. No wheezing, rhonchi, rales.. Heart: RRR without murmur, gallop, or rubs. No ectopy. Extremities: No deformities, edema, skin discoloration, clubbing or cyanosis. Good capillary refill. . Neurologic: Gait normal. ASSESSMENT/PLAN: 1. Weight loss - ICD9: 783.21, ICD10: R63.4 (primary diagnosis) Stable. Continue boost. Get the EGD and colonoscopy as planned. Recheck in 2-4 weeks. 2. Iron deficiency anemia, unspecified iron deficiency anemia type - ICD9: 280.9, ICD10: D50.9 Continue iron. 3. Essential hypertension - ICD9: 401.9, ICD10: I10 - Home blood pressure readings controlled - Continue current medications Discussed treatment plan and patient voices understanding. Patient's questions answered appropriately. Medications and potential side effects were discussed and patient voices understanding. Return to the office as scheduled or as needed for worsening/no improvement. Debbie Constantino APRN.LIVESTOCK SHOWMAN documented in this encounter [facility] 03-11-2024 Telephone encounter Note Pt notified of results via [employer]. Ofelia Brenner Ma [facility] 03-11-2024 Miscellaneous Notes Pt notified of results via [employer]. Ofelia Brenner Ma ----- Message from Rylee Duarte sent at 03/11/2024 1:29 PM EDT ----- Iron level improved. Continue ferrous sulfate. Anemia has improved slightly. documented in this encounter [facility] 03-11-2024 Telephone encounter Note ----- Message from Rylee Kashmirraz sent at 03/11/2024 1:29 PM EDT ----- Iron level improved. Continue ferrous sulfate. Anemia has improved slightly. [facility] 03-05-2024 Note HNO ID: [id number] Author: DARYL HAMLIN MD Service: ? Author Type: Physician Type: Progress Notes Filed: 03/24/2024 12:03 Note Text: HISTORY AND PHYSICAL Vandana Lees Paula 1950 REFERRING PHYSICIAN: Markus Rascon MD CHIEF COMPLAINT: Consult (Iron deficiency anemia, unspecified iron deficiency anemia type [D50.9]; Family history of colon cancer [Z80.0]; Weight loss [R63.4]; Heme positive stool [R19.5]/) HPI: The patient is a 73 year old female referred for endoscopy. Vandana notes no history of colon complaints. The patient notes no history of upper GI complaints. Patient was noted to be anemic as well as losing weight steadily over the last 6 months. Vandana has undergone prior endoscopy. 2020 The patient is being seen by me today at the request of Dr. Markus Rascon MD for my opinion and advice regarding Iron deficiency anemia, unspecified iron deficiency anemia type Family history of colon cancer Weight loss Heme positive stool. PAST MEDICAL HISTORY Diagnosis Date Arthritis Diastolic dysfunction Grade I Disorder of bone and cartilage, unspecified Diverticulosis 2009 colonoscopy History of transfusion HOCM (hypertrophic obstructive cardiomyopathy) (HCC) Insomnia, unspecified Melanocytic Nevocellular Nevi pigmented moles of trunk: back mainly 08/02/2011 Mitral valve disorders Monoclonal gammopathy 04/2017 Osteoporosis Other diseases of lung, not elsewhere classified restrictive lung disease Other pulmonary embolism and infarction 07/25/2012 ? had pe with normal d dimer. saw pulmonary. not convinced she did have one. Renal cyst Small airways disease Possible asthma. Patient unable to perform definitive test SVT (supraventricular tachycardia) (HCC) 01/14/2020 Unspecified essential hypertension PAST SURGICAL HISTORY Procedure Laterality Date BACK SURGERY HX BIOPSY BREAST OPEN INCISIONAL left Bx of breast, incisional COLONOSCOPY FLX DX W/COLLJ SPEC WHEN PFRMD 10/27/2004 Colonoscopy COLONOSCOPY FLX DX W/COLLJ SPEC WHEN PFRMD 02/22/2010 Colonoscopy COLONOSCOPY FLX DX W/COLLJ SPEC WHEN PFRMD 03/19/2015 Colonoscopy CORRECT BUNION,SIMPLE CORRECTION [facility] EYE SURGERY HX PAST SURGICAL HISTORY OF scoliosis surgery PAST SURGICAL HISTORY OF laser kidney stone PAST SURGICAL HISTORY OF lap hysterectomy. benign ov mass TONSILLECTOMY HX TONSILLECTOMY PRIMARY/SECONDARY Tonsillectomy Current Outpatient Medications Medication Sig ferrous sulfate 325 mg (65 mg iron) tablet Take 1 tablet by mouth two times a day with meals. dilTIAZem CD (CARDIZEM CD) 180 mg 24 hr capsule Take 1 capsule by mouth once daily. albuterol HFA (VENTOLIN HFA) 90 mcg/actuation inhaler Inhale 2 Puffs as instructed every 4 hours as needed for wheezing/shortness of breath. fluticasone-salmeterol (WIXELA INHUB) 250-50 mcg/dose inhaler Inhale 1 Puff as instructed two times a day. calcium citrate (CITRACAL ORAL) Take 2 capsules by mouth two times a day. clindamycin (CLEOCIN T) 1 % gel Apply to affected area once daily. denosumab (PROLIA) 60 mg/mL Inject subcutaneously once every 6 months. melatonin 3 mg tablet Take 3 mg by mouth. qhs acetaminophen 325 mg cap Take by mouth as needed. MULTIVITAMIN ORAL Take 1 tablet by mouth once daily. No current facility-administered medications for this visit. ALLERGIES: Amoxicillin, Asa [Salicylates], Diclofenac, Iodine, and Monistat 1 [Tioconazole] PERSONAL HISTORY: Social History Tobacco Use Smoking status: Never Smokeless tobacco: Never Tobacco comments: Father smoked in childhood home. Spouse does not smoke. Vaping Use Vaping status: Never Used Substance Use Topics Alcohol use: Yes Comment: Occasionally. Drug use: No FAMILY HISTORY: FAMILY HISTORY Problem Relation Age of Onset Colon Cancer Mother 56 Hypertension Mother Colon Cancer Father Diabetes Father Hypertension Maternal Grandmother REVIEW OF SYMPTOMS: negative except as noted above PHYSICAL EXAMINATION: General: The patient is 73 year old female, well nourished, well hydrated in no acute distress. The patient is oriented to time, place, and person. VITALS: Blood pressure 189/82, pulse 91, height 158.2 cm (5' 2.3 ), weight 49.9 kg (110 lb), SpO2 98%. Body mass index is 19.93 kg/m?. HEENT: Normal cephalic, ataumatic, pupils are equally round, sclera are anicteric, mucous membranes are moist, oropharynx is clear. Neck has no masses, asymmetry or lymphadenopathy. Thyroid is unremarkable. Respiratory: Clear to auscultation and percussion. Normal respiratory excursion and pattern. Cardiac: Examination is regular rate and rhythm. Abdominal exam: Soft, nontender, with no palpable masses. No hepatosplenomegaly. No palpable hernias. Rectal exam: exam deferred Extremities: no clubbing, cyanosis or edema. No adenopathy. Other: LABORATORY VALUES: As Noted RADIOLOGIC STUDIES: As Noted Assessment IMPRESSION (more content not included)... [facility] 03-05-2024 History of Present illness Narrative HISTORY AND PHYSICAL Vandana Mitchell 1950 REFERRING PHYSICIAN: Markus Rascon MD CHIEF COMPLAINT: Consult (Iron deficiency anemia, unspecified iron deficiency anemia type [D50.9]; Family history of colon cancer [Z80.0]; Weight loss [R63.4]; Heme positive stool [R19.5]/) HPI: The patient is a 73 year old female referred for endoscopy. Vandana notes no history of colon complaints. The patient notes no history of upper GI complaints. Patient was noted to be anemic as well as losing weight steadily over the last 6 months. Vandana has undergone prior endoscopy. 2020 The patient is being seen by me today at the request of Dr. Markus Rascon MD for my opinion and advice regarding Iron deficiency anemia, unspecified iron deficiency anemia type Family history of colon cancer Weight loss Heme positive stool. PAST MEDICAL HISTORY Diagnosis Date Arthritis Diastolic dysfunction Grade I Disorder of bone and cartilage, unspecified Diverticulosis 2009 colonoscopy History of transfusion HOCM (hypertrophic obstructive cardiomyopathy) ([facility]) Insomnia, unspecified Melanocytic Nevocellular Nevi pigmented moles of trunk: back mainly 08/02/2011 Mitral valve disorders Monoclonal gammopathy 04/2017 Osteoporosis Other diseases of lung, not elsewhere classified restrictive lung disease Other pulmonary embolism and infarction 07/25/2012 ? had pe with normal d dimer. saw pulmonary. not convinced she did have one. Renal cyst Small airways disease Possible asthma. Patient unable to perform definitive test SVT (supraventricular tachycardia) ([facility]) 01/14/2020 Unspecified essential hypertension PAST SURGICAL HISTORY Procedure Laterality Date BACK SURGERY HX BIOPSY BREAST OPEN INCISIONAL left Bx of breast, incisional COLONOSCOPY FLX DX W/COLLJ SPEC WHEN PFRMD 10/27/2004 Colonoscopy COLONOSCOPY FLX DX W/COLLJ SPEC WHEN PFRMD 02/22/2010 Colonoscopy COLONOSCOPY FLX DX W/COLLJ SPEC WHEN PFRMD 03/19/2015 Colonoscopy CORRECT BUNION,SIMPLE CORRECTION HAMMERTOE EYE SURGERY HX PAST SURGICAL HISTORY OF scoliosis surgery PAST SURGICAL HISTORY OF laser kidney stone PAST SURGICAL HISTORY OF lap hysterectomy. benign ov mass TONSILLECTOMY HX TONSILLECTOMY PRIMARY/SECONDARY <AGE 11 Tonsillectomy Current Outpatient Medications Medication Sig ferrous sulfate 325 mg (65 mg iron) tablet Take 1 tablet by mouth two times a day with meals. dilTIAZem CD (CARDIZEM CD) 180 mg 24 hr capsule Take 1 capsule by mouth once daily. albuterol HFA (VENTOLIN HFA) 90 mcg/actuation inhaler Inhale 2 Puffs as instructed every 4 hours as needed for wheezing/shortness of breath. fluticasone-salmeterol (WIXELA INHUB) 250-50 mcg/dose inhaler Inhale 1 Puff as instructed two times a day. calcium citrate (CITRACAL ORAL) Take 2 capsules by mouth two times a day. clindamycin (CLEOCIN T) 1 % gel Apply to affected area once daily. denosumab (PROLIA) 60 mg/mL Inject subcutaneously once every 6 months. melatonin 3 mg tablet Take 3 mg by mouth. qhs acetaminophen 325 mg cap Take by mouth as needed. MULTIVITAMIN ORAL Take 1 tablet by mouth once daily. No current facility-administered medications for this visit. ALLERGIES: Amoxicillin, Asa [Salicylates], Diclofenac, Iodine, and Monistat 1 [Tioconazole] PERSONAL HISTORY: Social History Tobacco Use Smoking status: Never Smokeless tobacco: Never Tobacco comments: Father smoked in childhood home. Spouse does not smoke. Vaping Use Vaping status: Never Used Substance Use Topics Alcohol use: Yes Comment: Occasionally. Drug use: No FAMILY HISTORY: FAMILY HISTORY Problem Relation Age of Onset Colon Cancer Mother 56 Hypertension Mother Colon Cancer Father Diabetes Father Hypertension Maternal Grandmother REVIEW OF SYMPTOMS: negative except as noted above PHYSICAL EXAMINATION: General: The patient is 73 year old female, well nourished, well hydrated in no acute distress. The patient is oriented to time, place, and person. VITALS: Blood pressure 189/82, pulse 91, height 158.2 cm (5' 2.3 ), weight 49.9 kg (110 lb), SpO2 98%. Body mass index is 19.93 kg/m . HEENT: Normal cephalic, ataumatic, pupils are equally round, sclera are anicteric, mucous membranes are moist, oropharynx is clear. Neck has no masses, asymmetry or lymphadenopathy. Thyroid is unremarkable. Respiratory: Clear to auscultation and percussion. Normal respiratory excursion and pattern. Cardiac: Examination is regular rate and rhythm. Abdominal exam: Soft, nontender, with no palpable masses. No hepatosplenomegaly. No palpable hernias. Rectal exam: exam deferred Extremities: no clubbing, cyanosis or edema. No adenopathy. Other: LABORATORY VALUES: As Noted RADIOLOGIC STUDIES: As Noted Assessment IMPRESSION: Iron deficiency anemia, unspecified iron deficiency anemia type Family history of colon cancer Weight loss Heme positive stool PLAN: I plan to perform upper and lower endoscopy. We discussed the risks and benefits of the planned endoscopy. I have informed the patient that complications can occur including failure to complete the endoscopy and perforation. The patient had the opportunity to ask questions concerning the planned endoscopy. My staff has also explained the procedure to the patient in understandable terms and has given the patient printed material concerning the procedure. The patient freely consents to surgery. I plan to use Miralax bowel preperation for endoscopy Diagnoses: (D50.9) Iron deficiency anemia, unspecified iron deficiency anemia type (Z80.0) Family history of colon cancer (R63.4) Weight loss (R19.5) Heme positive stool My findings have been communicated to Dr. Markus Rascon MD via shared medical record. This note will be forwarded to Dr. Markus Rascon MD. Return to Clinic: The patient is instructed to follow-up with me after the testing has been completed. Daryl Hamlin III, MD documented in this encounter [facility] 02-21-2024 Telephone encounter Note Patient informed and verbalized understanding. Vianney Steen MA [facility] 02-21-2024 Miscellaneous Notes Patient informed and verbalized understanding. Vianney Steen MA Hold centrum. Given the blood in stool and constipation. See surgery as ordered. The anemia may be in part due to surgery but with bowel changes and blood in stool may need more work up. Make sure using a stool softener. Patient reports she is taking ferrous sulfate that has 65 mg iron in each tab- takes 2 tabs a day. She is also taking centrum silver 1 tab a day, that has 8 mg of iron in each tablet. Reports she has been having problems with constipation since her surgery in December. Eats prunes daily- but probably not getting enough liquids daily and will work on this. Pharmacist told patient to ask pcp if she should be taking the centrum silver? Please advise and phone patient with reply. documented in this encounter [facility] 02-21-2024 Telephone encounter Note Hold centrum. Given the blood in stool and constipation. See surgery as ordered. The anemia may be in part due to surgery but with bowel changes and blood in stool may need more work up. Make sure using a stool softener. [facility] 02-21-2024 Telephone encounter Note Patient reports she is taking ferrous sulfate that has 65 mg iron in each tab- takes 2 tabs a day. She is also taking centrum silver 1 tab a day, that has 8 mg of iron in each tablet. Reports she has been having problems with constipation since her surgery in December. Eats prunes daily- but probably not getting enough liquids daily and will work on this. Pharmacist told patient to ask pcp if she should be taking the centrum silver? Please advise and phone patient with reply. [facility] 02-19-2024 Telephone encounter Note Patient notified and verbalizes understanding. PSS please help set her back up with Dr Hamlin. [facility] 02-19-2024 Miscellaneous Notes Patient notified and verbalizes understanding. PSS please help set her back up with Dr Hamlin. Had blood in stool and iron deficiency anemia. Start iron. Follow labs in one month. Needs to see surgery to rule out gi tract blood loss as cause of labs and weight loss. documented in this encounter [facility] 02-19-2024 Telephone encounter Note Had blood in stool and iron deficiency anemia. Start iron. Follow labs in one month. Needs to see surgery to rule out gi tract blood loss as cause of labs and weight loss. [facility] 02-14-2024 Telephone encounter Note Call placed to patient and results and provider message reviewed. Lab appointment scheduled for Monday02/20/2024. Gail Dan RN [facility] 02-14-2024 Miscellaneous Notes Call placed to patient and results and provider message reviewed. Lab appointment scheduled for Monday02/20/2024. Gail Dan RN Labs show a new anemia. Repeat labs including ifobt in the next week documented in this encounter [facility] 02-14-2024 Telephone encounter Note Labs show a new anemia. Repeat labs including ifobt in the next week [facility] 02-12-2024 Note HNO ID: [id number] Author: MARKUS RASCON MD Service: ? Author Type: Physician Type: Progress Notes Filed: 02/12/2024 18:55 Note Text: Patient presents with: 6 Month Exam Weight Loss: Steadily decreasing weight HPI: Patient presents today for office visit for follow up. See above. Is down six labs since Jun. Had pelvic us and ct of pelvis prior to hysterectomy. No abn path on hysterectomy. Had a benign ovarian mass. Has had mammogram as well. Home bp has been ok. Had cuff validated which shows a higher diastolic on her home cuff but is fairly close on her systolic cuff. No chest pain. No shortness of breath that is new. No edema. No cough. No bowel changes that are new. No urinary issues. No dysphagia. No unusual headaches. No new bone pain. No new mole changes. Sees dermatology. Did note she had decreased appetite with surgery but had lost a little weight before that. Discussed using boost and had slacked off but will resume it. Had started to lose some weight in 2021 but had stabilized when that happened. We did do ct scans back in 2021 but it had again stabilized. Had colonoscopy in 2020. Due in 2025. Had bone survey in last year as well Her daughter feels she has anxiety but she does not feel it is significant. Gets frustrated with her memory at times. Memory still not as good as it had been Did have stress test done this spring. Did have her bone marrow and follows with pulmonary, cardiology and heme onc in the next year. Note copied and pasted from last ov in June. Scheduled tomorrow [facility] bone marrow biopsy. Saw Dr. Nolasco, Cardiology 06/12/23. History of hypertrophic cardiomyopathy. Maintained on a Cardizem. Asymptomatic. HTN: Monitors BP at home Denies new or worsening chest pain and shortness of breath. Denies headaches and dizziness No palpitations No syncope No edema Follows with Dr. Oneill. Hem/Onc XR bone from 05/09/23 showed no acute fracture or destructive osseous lesion. DXA scan from March showed significant losses both in left hip and left femoral neck since last scan. Right hip was scanned although not able to be analyzed per radiology dept. Sometimes this happens when bone mass is too low or if possibly surgery was performed on that side. These things can make it difficult to read. Is on prolia. Sees juvenal Bangura. Followed by Pulmonary. Asthma is well controlled. Pulmonary recommends continued use of her Symbicort but could decrease the dosing to 80/4.5. Patient is reluctant to do so since she seems to be doing well from a respiratory standpoint on current regimen. Very rarely having to use rescue inhaler. Memory is stable. Last time she was here she mentioned having some difficulty trying to write letters. She would really have to think about what she was writing. Denies any issues with this today. Refers to it being not so much her memory but being anxious. She gets overwhelmed easily when trying to multitask. Has some stress over the holidays. No tremors or falls. No headache, numbness or weakness. Has had carotids in the last year. MEDICATIONS: Current Outpatient Medications Medication Sig dilTIAZem CD (CARDIZEM CD) 180 mg 24 hr capsule Take 1 capsule by mouth once daily. albuterol HFA (VENTOLIN HFA) 90 mcg/actuation inhaler Inhale 2 Puffs as instructed every 4 hours as needed for wheezing/shortness of breath. fluticasone-salmeterol (WIXELA INHUB) 250-50 mcg/dose inhaler Inhale 1 Puff as instructed two times a day. calcium citrate (CITRACAL ORAL) Take 2 capsules by mouth two times a day. denosumab (PROLIA) 60 mg/mL Inject subcutaneously once every 6 months. MULTIVITAMIN ORAL Take 1 tablet by mouth once daily. clindamycin (CLEOCIN T) 1 % gel Apply to affected area once daily. melatonin 3 mg tablet Take 3 mg by mouth. qhs acetaminophen 325 mg cap Take by mouth as needed. No current facility-administered medications for this visit. ALLERGIES: ALLERGIES Allergen Reactions Amoxicillin Rash Asa [Salicylates] Swelling lip swelling Diclofenac Shortness of Breath Iodine Shortness of Breath Monistat 1 [Tiocona* Intolerance Burning PAST MEDICAL HISTORY No date: Arthritis No date: Diastolic dysfunction Comment: Grade I No date: Disorder of bone and cartilage, unspecified 2009: Diverticulosis Comment: colonoscopy No date: History of transfusion No date: HOCM (hypertrophic obstructive cardiomyopathy) (HCC) No date: Insomnia, unspecified 08/02/2011: Melanocytic Nevocellular Nevi pigmented moles of trunk: back mainly No date: Mitral valve disorders 04/2017: Monoclonal gammopathy No date: Osteoporosis No date: Other diseases of lung, not elsewhere classified Comment: restrictive lung disease 07/25/2012: Other pulmonary embolism and infarction Comment: ? had pe with normal d dimer. saw pulmonary. not convinced she did have one. No date: Renal cyst No da (more content not included)... [facility] 02-12-2024 History of Present illness Narrative Patient presents with: 6 Month Exam Weight Loss: Steadily decreasing weight HPI: Patient presents today for office visit for follow up. See above. Is down six labs since Jun. Had pelvic us and ct of pelvis prior to hysterectomy. No abn path on hysterectomy. Had a benign ovarian mass. Has had mammogram as well. Home bp has been ok. Had cuff validated which shows a higher diastolic on her home cuff but is fairly close on her systolic cuff. No chest pain. No shortness of breath that is new. No edema. No cough. No bowel changes that are new. No urinary issues. No dysphagia. No unusual headaches. No new bone pain. No new mole changes. Sees dermatology. Did note she had decreased appetite with surgery but had lost a little weight before that. Discussed using boost and had slacked off but will resume it. Had started to lose some weight in 2021 but had stabilized when that happened. We did do ct scans back in 2021 but it had again stabilized. Had colonoscopy in 2020. Due in 2025. Had bone survey in last year as well Her daughter feels she has anxiety but she does not feel it is significant. Gets frustrated with her memory at times. Memory still not as good as it had been Did have stress test done this spring. Did have her bone marrow and follows with pulmonary, cardiology and heme onc in the next year. Note copied and pasted from last ov in June. Scheduled tomorrow [facility] bone marrow biopsy. Saw Dr. Nolasco, Cardiology 06/12/23. History of hypertrophic cardiomyopathy. Maintained on a Cardizem. Asymptomatic. HTN: Monitors BP at home Denies new or worsening chest pain and shortness of breath. Denies headaches and dizziness No palpitations No syncope No edema Follows with Dr. Oneill. Hem/Onc XR bone from 05/09/23 showed no acute fracture or destructive osseous lesion. DXA scan from March showed significant losses both in left hip and left femoral neck since last scan. Right hip was scanned although not able to be analyzed per radiology dept. Sometimes this happens when bone mass is too low or if possibly surgery was performed on that side. These things can make it difficult to read. Is on prolia. Sees juvenal Bangura. Followed by Pulmonary. Asthma is well controlled. Pulmonary recommends continued use of her Symbicort but could decrease the dosing to 80/4.5. Patient is reluctant to do so since she seems to be doing well from a respiratory standpoint on current regimen. Very rarely having to use rescue inhaler. Memory is stable. Last time she was here she mentioned having some difficulty trying to write letters. She would really have to think about what she was writing. Denies any issues with this today. Refers to it being not so much her memory but being anxious. She gets overwhelmed easily when trying to multitask. Has some stress over the holidays. No tremors or falls. No headache, numbness or weakness. Has had carotids in the last year. MEDICATIONS: Current Outpatient Medications Medication Sig dilTIAZem CD (CARDIZEM CD) 180 mg 24 hr capsule Take 1 capsule by mouth once daily. albuterol HFA (VENTOLIN HFA) 90 mcg/actuation inhaler Inhale 2 Puffs as instructed every 4 hours as needed for wheezing/shortness of breath. fluticasone-salmeterol (WIXELA INHUB) 250-50 mcg/dose inhaler Inhale 1 Puff as instructed two times a day. calcium citrate (CITRACAL ORAL) Take 2 capsules by mouth two times a day. denosumab (PROLIA) 60 mg/mL Inject subcutaneously once every 6 months. MULTIVITAMIN ORAL Take 1 tablet by mouth once daily. clindamycin (CLEOCIN T) 1 % gel Apply to affected area once daily. melatonin 3 mg tablet Take 3 mg by mouth. qhs acetaminophen 325 mg cap Take by mouth as needed. No current facility-administered medications for this visit. ALLERGIES: ALLERGIES Allergen Reactions Amoxicillin Rash Asa [Salicylates] Swelling lip swelling Diclofenac Shortness of Breath Iodine Shortness of Breath Monistat 1 [Tiocona* Intolerance Burning PAST MEDICAL HISTORY No date: Arthritis No date: Diastolic dysfunction Comment: Grade I No date: Disorder of bone and cartilage, unspecified 2009: Diverticulosis Comment: colonoscopy No date: History of transfusion No date: HOCM (hypertrophic obstructive cardiomyopathy) ([facility]) No date: Insomnia, unspecified 08/02/2011: Melanocytic Nevocellular Nevi pigmented moles of trunk: back mainly No date: Mitral valve disorders 04/2017: Monoclonal gammopathy No date: Osteoporosis No date: Other diseases of lung, not elsewhere classified Comment: restrictive lung disease 07/25/2012: Other pulmonary embolism and infarction Comment: ? had pe with normal d dimer. saw pulmonary. not convinced she did have one. No date: Renal cyst No date: Small airways disease Comment: Possible asthma. Patient unable to perform definitive test 01/14/2020: SVT (supraventricular tachycardia) ([facility]) No date: Unspecified essential hypertension PAST SURGICAL HISTORY No date: BACK SURGERY HX left: BIOPSY BREAST OPEN INCISIONAL Comment: Bx of breast, incisional 10/27/2004: COLONOSCOPY FLX DX W/COLLJ SPEC WHEN PFRMD Comment: Colonoscopy 02/22/2010: COLONOSCOPY FLX DX W/COLLJ SPEC WHEN PFRMD Comment: Colonoscopy 03/19/2015: COLONOSCOPY FLX DX W/COLLJ SPEC WHEN PFRMD Comment: Colonoscopy No date: CORRECT BUNION,SIMPLE No date: CORRECTION HAMMERTOE No date: EYE SURGERY HX No date: PAST SURGICAL HISTORY OF Comment: scoliosis surgery No date: PAST SURGICAL HISTORY OF Comment: laser kidney stone No date: TONSILLECTOMY HX No date: TONSILLECTOMY PRIMARY/SECONDARY <AGE 11 Comment: Tonsillectomy FAMILY HISTORY Problem Relation Age of Onset Colon Cancer Mother 56 Hypertension Mother Colon Cancer Father Diabetes Father Hypertension Maternal Grandmother Social History Tobacco Use Smoking status: Never Smokeless tobacco: Never Tobacco comments: Father smoked in childhood home. Spouse does not smoke. Vaping Use Vaping status: Never Used Substance Use Topics Alcohol use: Yes Comment: Occasionally. Drug use: No Reviewed current medications, allergies, past medical history, surgical history, family history and social history today. REVIEW OF SYSTEMS All other reviewed and negative other than HPI. HEALTH MAINTENANCE: Reviewed health maintenance issues today and recommended the following in detail. Depression Screening Never done Alpha-1 Antitrypsin Deficiency Screening Never done Shingrix Vaccine(2 of 3) due on 06/25/2012 Advance Directive Discussion due on 06/05/2023 Covid-19 Vaccine() due on 02/04/2024 VITALS: BP 161/84 Pulse 93 Wt 49.2 kg (108 lb 7.5 oz) SpO2 94% BMI 19.65 kg/m Last 4 Encounter Wt Readings: Date: Wt: 02/12/2024 49.2 kg (108 lb 7.5 oz) 11/20/2023 50.8 kg (112 lb) 09/04/2023 51.7 kg (114 lb) 07/04/2023 51.9 kg (114 lb 8 oz) PHYSICAL EXAMINATION: General appearance: Well appearing, alert, in no acute distress, well-hydrated, well nourished. Skin: Skin color, texture, turgor normal, no suspicious rashes or lesions Head: Normocephalic, no masses, lesions, tenderness or abnormalities Lungs: Lungs clear to auscultation. No wheezing, rhonchi, rales Heart: RRR without murmur, gallop, or rubs. No ectopy Abdomen: Normal abdominal exam, Abdomen soft, non-tender. Bowel sounds normal. No masses, organomegaly Extremities: No deformities, edema, skin discoloration, clubbing or cyanosis. Good capillary refill. Musculoskeletal: No joint swelling, deformity, or tenderness ASSESSMENT/PLAN: 1. Essential hypertension - ICD9: 401.9, ICD10: I10 (primary diagnosis) - Home blood pressure readings controlled - Worsening control - follow bp and recheck next month. - DILTIAZEM SR 180 MG 24 HR CAP 2. Obstructive cardiomyopathy (HCC) - ICD9: 425.4, ICD10: I42.8 - per cardiology 3. SVT (supraventricular tachycardia) (HCC) - ICD9: 427.89, ICD10: I47.10 - stable. 4. HOCM (hypertrophic obstructive cardiomyopathy) (HCC) - ICD9: 425.11, ICD10: I42.1 - stable. 5. Restrictive 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 - ICD9: 518.89, 737.43, ICD10: J98.4, M41.9 - per pulmonary. 6. Mild intermittent asthma without complication - ICD9: 493.90, ICD10: J45.20 - stable 7. Hypercalcemia - ICD9: 275.42, ICD10: E83.52 - sees Dr Null 8. Monoclonal gammopathy - ICD9: 273.1, ICD10: D47.2 - per Dr Oneill 9. Age-related osteoporosis without current pathological fracture - ICD9: 733.01, ICD10: M81.0 - can consider at some point 10. Bilateral carotid artery stenosis - ICD9: 433.10, 433.30, ICD10: I65.23 - recheck 11. Encounter for screening examination for other mental health and behavioral disorders - ICD9: V79.8, ICD10: Z13.39 - ANXIETY SCREENING 12. Weight loss - ICD9: 783.21, ICD10: R63.4 - resume boost. Could consider adding something like remeron or doing gi work up if continues. - COMPLETE BLOOD COUNT AND DIFFERENTIAL - COMPREHENSIVE METABOLIC PANEL - THYROID STIMULATING HORMONE - PREALBUMIN 13. Screening for depression - ICD9: V79.0, ICD10: Z13.31 - DEPRESSION SCREENING 14. Chronic obstructive pulmonary disease, unspecified COPD type (HCC) - ICD9: 496, ICD10: J44.9 - per pulmonary Markus Rascon RTO in one month and prn. documented in this encounter [facility] 02-06-2024 History of Present illness Narrative Female Pelvic Medicine & Reconstructive Surgery Post-Op Visit Vandana Mitchell is a 73 y.o. female who presents for a 7 week post-op check s/p: 12/19/23 Dr. Chery Laparoscopic assisted vaginal hysterectomy with BSO Dr. Alston Uterosacral ligament vaginal vault suspension (intraperitoneal colpopexy) Anterior colporrhaphy [employer] Obtryx II transobturator midurethral sling Cystourethroscopy Pt is concerned that she may have hemorrhoids. Some constipation following surgery now resolved. She has noted some urinary urgency with running water. Post-op complications: No Bleeding: No Pain: No Abnormal vaginal discharge: No [id number] Do you: Usually experience pressure in the lower abdomen? No 0 Usually experience heaviness or dullness in the pelvic area? No 0 Usually have a bulge or something falling out that you can see or feel in your vaginal area? No 0 Ever have to push on the vagina or around the rectum to have or complete a bowel movement? No 0 Usually experience a feeling of incomplete bladder emptying? No 0 Ever have to push up on a bulge in the vaginal area with your fingers to start or complete urination? No 0 Feel you need to strain too hard to have a bowel movement? No 0 Feel you have not completely emptied your bowels at the end of a bowel movement? No 0 Usually lose stool beyond your control if your stool is well formed? No 0 Usually lose stool beyond your control if your stool is loose? No 0 Usually lose gas from the rectum beyond your control? No 0 Usually have pain when you pass your stool? No 0 Experience a strong sense of urgency and have to graham to the bathroom to have a bowel movement? Yes 1 Does part of your bowel ever pass through the rectum and bulge outside during or after a bowel movement? No 0 Usually experience frequent urination? No 0 Usually experience urine leakage associated with a feeling of urgency, that is, a strong sensation of needing to go to the bathroom? Yes 1 Usually experience urine leakage related to coughing, sneezing or laughing? No 0 Usually experience small amounts of urine leakage (that is, drops)? Yes 1 Usually experience difficulty emptying your bladder? No 0 Usually experience pain or discomfort in the lower abdomen or genital region? No 0 Traffic Signal Supervisor Maintenance: Montse Davis MA OBJECTIVE: BP (!) 172/77 Pulse 78 General Appearance: no acute distress, normally developed, and affect appropriate Abdomen: abdomen is soft without significant tenderness, masses, organomegaly or guarding. Pelvic: External Genitalia: normal appearing vulva with no masses, tenderness, or lesions Vagina: vaginal incisions well healed with dissolving suture material present, cuff intact Cervix: surgically absent Urethra: normal appearing urethra with no masses, tenderness or lesions and no visible or palpable sling mesh Bimanual: no palpable masses or tenderness Rectovaginal: external anal skin tags noted Levator Ani Contraction: 1 Levator Ani Tone: normal Levator Ani Tenderness: No ASSESMENT: Vandana Mitchell is a 73 y.o. who is postop, doing well, postop course uncomplicated PLAN: 1. Postop check - Normal postop exam - Operative findings and pathology report reviewed - May resume normal activity - May resume intercourse - Ok to return to work without restrictions - Follow up in 6 months or sooner prn 2. OAB (overactive bladder) - Lifestyle and behavioral modifications, PMEs exercises discussed. 3. Anal skin tag - Discussed keeping stool consistency soft and easy to pass, avoiding constipation. Offered referral to colorectal surgery. Pt declines at this time. Marie Alston MD documented in this encounter [facility] 01-03-2024 Telephone encounter Note Name of caller: Vandana Mitchell Contact phone number: [phone] Relationship to Patient: patient Provider: Dr Alston Practice: [facility] Chief Complaint/Reason for Call: Pt calling to ask what restrictions she is still under from surgery w/ the . Pt was seen by Dr Chery & today & this was gone over but pt wanting to be sure. Please advise Best time of day caller can be reached: Any Patient advised that office/PCP has 24-48 business hours to return their call: Yes [facility] 01-03-2024 Miscellaneous Notes Name of caller: Vandana Mitchell Contact phone number: [phone] Relationship to Patient: patient Provider: Dr Alston Practice: [facility] Chief Complaint/Reason for Call: Pt calling to ask what restrictions she is still under from surgery w/ the Dr. Pt was seen by Dr Chery & today & this was gone over but pt wanting to be sure. Please advise Best time of day caller can be reached: Any Patient advised that office/PCP has 24-48 business hours to return their call: Yes documented in this encounter [facility] 01-03-2024 Telephone encounter Note Patient would like to know if 02-26 appointment could be cancelled since she was seen today and was told she wouldn't have to come back. [facility] 01-03-2024 Miscellaneous Notes Patient would like to know if 09-24 appointment could be cancelled since she was seen today and was told she wouldn't have to come back. documented in this encounter [facility] 01-03-2024 History of Present illness Narrative Postop visit Patient was referred by Dr. Tariq Chew with a solid mass in the pelvis. 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 Also underwent vaginal repair by urogynecology. UTERUS, CERVIX, BILATERAL FALLOPIAN TUBES AND OVARIES, HYSTERECTOMY AND BILATERAL SALPINGO-OOPHORECTOMY: -CERVIX WITH REACTIVE CHANGES -INACTIVE/ATROPHIC ENDOMTERIUM -LEIOMYOMATA - RIGHT OVARY WITH CYSTADENOMA AND CYSTIC FOLLICLES -LEFT OVARY WITH CYSTADENOFIBROMA AND SIMPLE CYSTS -RIGHT AND LEFT FALLOPIAN TUBE WITH NO SIGNIFICANT PATHOLOGIC CHANGES Patient is doing well. Denies any fever chills or sweats. The abdominal incisions are healing nicely. A) status post LAVH BSO for retroperitoneal leiomyoma that was removed in its entirety Vaginal repair by urogynecology P) still has postop appointment with Dr. Alston. I do not need to see her back unless there is an issue related to the hysterectomy. All the patient's questions were answered. documented in this encounter [facility] 12-27-2023 Telephone encounter Note Faxed to Dr. Chew at [phone] via right fax. Confirmation scanned within media. Rescheduled patient with Radha for post op [facility] 12-27-2023 Telephone encounter Note ----- Message from Leandro Chery MD sent at 12/25/2023 12:50 PM EDT ----- Please fax to Dr. Tariq Chew in [place] and please make sure patient is seeing Otto for postop ----- Message ----- From: mo9 ([employer]) Layla De Sent: 12/25/2023 10:30 AM EDT To: Leandro Chery MD [facility] 12-27-2023 Miscellaneous Notes Faxed to Dr. Chew at [phone] via right fax. Confirmation scanned within media. Rescheduled patient with Radha for post op ----- Message from Leandro Chrey MD sent at 12/25/2023 12:50 PM EDT ----- Please fax to Dr. Tariq Chew in [place] and please make sure patient is seeing Otto for postop ----- Message ----- From: mo9 ([employer]) Automated UserLayla Sent: 12/25/2023 10:30 AM EDT To: Leandro Chery MD documented in this encounter [facility] 12-25-2023 Telephone encounter Note Pt called with path [facility] 12-25-2023 Miscellaneous Notes Pt called with path documented in this encounter [facility] 12-24-2023 Note Name of Caller: Nallely jacki Elijah Call Back Number: [phone] What Procedure/Surgery did you have done: Laparoscopic Vaginal Hysterectomy Who was your surgeon: Dr. Chery What date was your surgery?: 12/19/2023 What is the reason for your call today (symptom): Dr. Espinoza from [facility] would like a doctor to doctor consult regarding patient who is currently in the ER at [facility]. Please call [phone] What provider is being paged: Dr. Jacobs Time page was sent: 8:10p Page Content: Dr. Espinoza from [facility] would like a doctor to doctor consult regarding patient who is currently in the ER at [facility]. Please call [phone] Name: Vandana : 48 Call Back Number: [phone] Reason for page (symptom): Doctor to Doctor Consult Name of Surgeon: Dr. Chery Type of Surgery: Laparoscopic Vaginal Hysterectomy Date of Surgery: 12/19/2023 [facility] 12-24-2023 Telephone encounter Note S: Patient spoke with [facility] nurse regarding constipation post op B: Onset of symptoms/concern 5 days A: Pt endorses had a laparoscopic vaginal hysterectomy on 12/19/23. Pt endorses having constipation, worsening, abdominal bloating and increase pain. Pt endorses taking colace twice daily since 12/19, MiraLAX as directed three times yesterday and twice today. PT had moderate size hard brown stool this afternoon. Pt endorses increase nausea, constant 5/10 abdominal pain with bloating , difficulty eating due to no appetite due to abdominal bloating. Pt has not used oxycodone prescribed Has used OTC pain medication only. Denies - vomiting, fever, R: Pt advised due to continued abdominal bloating, and constant pain would adive to go to ED at this time for further evaluation. Pt advised to have someone drive her there. Pt verbalizes understanding and will be driving to [facility] ED at this time. No further needs at this time. Patient instructed to call back with new or worsening symptoms. Reason for Disposition Caller has NON-URGENT question and triager unable to answer question [1] Constant abdominal pain AND [2] present > 2 hours Protocols used: Post-Op Symptoms and Kzclsnwhq-MHABO-BM, Ongykbsoebic-QSXGW-MP [facility] 12-24-2023 Miscellaneous Notes S: Patient spoke with [facility] nurse regarding constipation post op B: Onset of symptoms/concern 5 days A: Pt endorses had a laparoscopic vaginal hysterectomy on 12/19/23. Pt endorses having constipation, worsening, abdominal bloating and increase pain. Pt endorses taking colace twice daily since 12/19, MiraLAX as directed three times yesterday and twice today. PT had moderate size hard brown stool this afternoon. Pt endorses increase nausea, constant 5/10 abdominal pain with bloating , difficulty eating due to no appetite due to abdominal bloating. Pt has not used oxycodone prescribed Has used OTC pain medication only. Denies - vomiting, fever, R: Pt advised due to continued abdominal bloating, and constant pain would adive to go to ED at this time for further evaluation. Pt advised to have someone drive her there. Pt verbalizes understanding and will be driving to [facility] ED at this time. No further needs at this time. Patient instructed to call back with new or worsening symptoms. Reason for Disposition Caller has NON-URGENT question and triager unable to answer question [1] Constant abdominal pain AND [2] present > 2 hours Protocols used: Post-Op Symptoms and Cybykuaya-VWMMF-MS, Siihabnlkteg-MGKVQ-DN documented in this encounter [facility] 12-19-2023 Note Formatting of this n ote might be different from the original. Discharge instructions given. Patient and family verbalized understanding. Medications received from pharmacy. IV site removed. Taken via wheelchair for discharge [facility] 12-19-2023 Note Formatting of this n ote might be different from the original. Discharge instructions given. Patient and family verbalized understanding. Medications received from pharmacy. IV site removed. Taken via wheelchair for discharge [facility] 12-19-2023 Miscellaneous Notes Discharge instructions given. Patient and family verbalized understanding. Medications received from pharmacy. IV site removed. Taken via wheelchair for discharge Voiding trial started. 300mL instilled of normal saline. Catheter discontinued. Patient ambulated to restroom with 2 nurse SBA. Patient voided 200mL. OB-THERAPEUTIC RECREATION ASSISTANT resident notified Home going medications given to patients family by pharmacy. Date of surgery 12/19/2023 preoperative diagnosis pelvic mass, uterine prolapse postoperative diagnosis uterine leiomyoma, pelvic mass, uterine prolapse Procedure performed was laparoscopic assisted vaginal hysterectomy with BSO Surgeon Vik Anesthesia General Description of findings; there was a subserosal pedunculated myoma posterior aspect of the uterus. No evidence of malignancy was found. Description of operation patient identified brought to the operating room and after ministration general anesthetic underwent abdominal perineal vaginal prepped and draped in lithotomy position using yellowfin's. Compression stockings were used f, manipulator was placed in the uterus White catheter in the bladder. Timeout performed given. Using a knife a small incision made in the umbilicus using a 5 mm Optiview blunt port the abdominal cavity was entered under direct vision insufflated with CO2 and then under direct vision da Elizabeth ports were placed in the left lower quadrants. Trendelenburg was then used to displace about about the pelvis. Right and left ovarian vessels were skeletonized both ureters coagulated and divided. As was the broad ligament and the round ligaments. This allowed the bladder flap to be dissected inferiorly using sharp dissection. Uterine vessels bilaterally were skeletonized coagulated and divided using the Enseal device. A pedunculated leiomyoma on the posterior aspect of the uterus was dissected the rectovaginal space using the Enseal device. It was left attached to the posterior aspect of the uterus. All the laparoscopic instruments were then removed the defects and skin closed with subcuticular 4-0 Monocryl and Dermabond. Attention was then turned down below where the manipulator was removed. 20 cc 1% lidocaine with epinephrine was injected around the abdomen close to 360 degrees, a colpotomy incision was then made using a #10 blade, the posterior cul-de-sac was properly identified and sharply opened using Metzenbaum scissors. The long weighted speculum was then used to retract the rectum posteriorly. The vesicovaginal space was then opened, the vesicovaginal space was dissected and the bladder was held anteriorly using a Shana retractor. The right and left uterosacral ligaments were were clamped cut and tied using 0 Vicryl transfixion sutures and Eliz clamps. The remnants of the cardinal ligaments were then clamped and divided bilaterally using clamps and 0 Vicryl transfixion sutures. This allowed the uterus cervix tubes ovaries and the mass to be removed out of the vagina. Angle sutures were placed at 3 9:00 compartment uterosacral ligaments with the cuff of the vagina. Hemostasis was noted. Blood loss my procedure was minimal. The surgery was then turned over to urogynecology for repair of her vaginal prolapse. Date: 12/19/2023 Location: [facility] OR Name: Vandana Mitchell, : 1950, Diagnosis Pre-op Diagnosis * Intra-abdominal and pelvic swelling, mass and lump, unspecified site [R19.00] * Abnormal findings on diagnostic imaging of other specified body structures [R93.89] * Incomplete uterovaginal prolapse [N81.2] * Cystocele, midline [N81.11] * Rectocele [N81.6] Post-op Diagnosis * Intra-abdominal and pelvic swelling, mass and lump, unspecified site [R19.00] * Abnormal findings on diagnostic imaging of other specified body structures [R93.89] * Incomplete uterovaginal prolapse [N81.2] * Cystocele, midline [N81.11] * Rectocele [N81.6] Procedures LAPAROSCOPIC VAGINAL HYSTERECTOMY WITH REMOVAL BILATERAL SALPINGO OOPHORECTOMY 31938 - MN LAPS W/VAG HYSTERECT 250 GM/&RMVL TUBE&/OVARIES UTEROSACRAL LIGAMENT SUSPENSION, ANTERIOR/POSTERIOR REPAIR, POSSIBLE SLING PROCEDURE, CYSTOSCOPY 02712 - MN COLPOPEXY VAGINAL INTRAPERITONEAL APPROACH ANTERIOR AND POSTERIOR COLPORRHAPHY 91481 - MN CMBND ANTERPOST COLPORRAPHY W/CYSTO SLING OPERATION FOR STRESS INCONTINENCE 78184 - MN SLING OPERATION STRESS INCONTINENCE CYSTOSCOPY 55943 - MN CYSTOURETHROSCOPY Surgeons Panel 1: * Leandro Chery - Primary * Carmen Pastrana - Assisting * Isis Salcido - Assisting Panel 2: * Marie Alston - Primary * Lisette Daniels - Assisting Procedure Summary Anesthesia: General ASA: III Estimated Blood Loss: Minimal Drains: Urethral Catheter (Active) Specimens ID Source Type Tests Collected By Collected At Frozen? Priority Lab ID 1 Uterus Tissue TISSUE EXAM Leandro Chery MD 12/19/23 1410 No Description: UTERUS, CERVIX, BILATERAL TUBES AND OVARIES Comment: WEIGHT: 115G Staff: Federal Mediation Commissioner: Anamaria Rebolledo RN Scrub Person: Geovanny Cheung Findings: uterine leiomyoma Complications: None; patient tolerated the procedure well. Specimens Collected: Order Name Source Comment Collection Info Order Time POTASSIUM WITH MG REFLEX For patients on dialysis to draw potassium day of surgery 12/19/2023 10:51 AM PROTHROMBIN TIME If patient on coumadin within 4 days prior. 12/19/2023 10:51 AM CBC (HEMOGRAM) Blood, Venous Collected By: Rosalind Barrera RN 12/19/2023 10:51 AM HCG QUALITATIVE URINE Urine, Clean Catch Discontinue this order if: 1. patient is older than 55 years old 2. has had a prior hysterectomy 3. today's surgery is for treatment of known or suspected ectopic or loss. 4. patient has a known intrauterine but this is a needed surgery. 12/19/2023 10:51 AM TISSUE EXAM Uterus Collected By: Leandro Chery MD 12/19/2023 2:12 PM Wound Class: Class II: Clean-Contaminated Blood Products: None Prophylactic Antibiotics: Procedure appropriate prophylactic antibiotic(s) given within 1 hour of surgical incision (two hours if receiving Vancomycin or flouroquinolone) documented in this encounter [facility] 12-19-2023 Note Formatting of this n ote might be different from the original. Voiding trial started. 300mL instilled of normal saline. Catheter discontinued. Patient ambulated to restroom with 2 nurse SBA. Patient voided 200mL. OB-THERAPEUTIC RECREATION ASSISTANT resident notified [facility] 12-19-2023 Note Formatting of this n ote might be different from the original. Voiding trial started. 300mL instilled of normal saline. Catheter discontinued. Patient ambulated to restroom with 2 nurse SBA. Patient voided 200mL. OB-THERAPEUTIC RECREATION ASSISTANT resident notified [facility] 12-19-2023 Note Formatting of this n ote might be different from the original. Home going medications given to patients family by pharmacy. [facility] 12-19-2023 Note Formatting of this n ote might be different from the original. Home going medications given to patients family by pharmacy. [facility] 12-19-2023 Note Patient: Vandana galvan Procedure Summary Date: 12/19/23 Room / Location: [facility] OR [address] [place] [address] Operating Room Anesthesia Start: 1303 Anesthesia Stop: 1636 Procedures: LAPAROSCOPIC VAGINAL HYSTERECTOMY WITH REMOVAL BILATERAL SALPINGO OOPHORECTOMY (Bilateral: Abdomen) UTEROSACRAL LIGAMENT SUSPENSION, ANTERIOR REPAIR, SLING PROCEDURE, CYSTOSCOPY ANTERIOR AND POSTERIOR COLPORRHAPHY (Perineum) SLING OPERATION FOR STRESS INCONTINENCE (Perineum) CYSTOSCOPY (Urethra) Diagnosis: Intra-abdominal and pelvic swelling, mass and lump, unspecified site Abnormal findings on diagnostic imaging of other specified body structures Incomplete uterovaginal prolapse Cystocele, midline Rectocele Surgeons: Leandro Chery MD; Marie Alston MD Responsible Provider: Agus Mauro MD Anesthesia Type: general, regional ASA Status: 3 Anesthesia Type: general, regional Vitals Value Taken Time BP 123/69 12/19/23 1633 Temp 36.2 ?C (97.2 ?F) 12/19/23 1633 Pulse 65 12/19/23 1640 Resp 17 12/19/23 1640 SpO2 95 % 12/19/23 1640 Vitals shown include unfiled device data. Anesthesia Post Evaluation Patient location during evaluation: PACU Patient participation: complete - patient participated Level of consciousness: awake and alert Pain management: satisfactory to patient Airway patency: patent Dental Injury: no Cardiovascular status: acceptable, blood pressure returned to baseline and hemodynamically stable Respiratory status: acceptable and spontaneous ventilation Hydration status: euvolemic Nausea/Vomiting: controlled No notable events documented. Patient can be discharged once all PACU criteria has been met. [facility] 12-19-2023 Note Patient: Vandana galvan Procedure Summary Date: 12/19/23 Room / Location: [facility] OR [address] [place] [address] Operating Room Anesthesia Start: 1303 Anesthesia Stop: 1636 Procedures: LAPAROSCOPIC VAGINAL HYSTERECTOMY WITH REMOVAL BILATERAL SALPINGO OOPHORECTOMY (Bilateral: Abdomen) UTEROSACRAL LIGAMENT SUSPENSION, ANTERIOR REPAIR, SLING PROCEDURE, CYSTOSCOPY ANTERIOR AND POSTERIOR COLPORRHAPHY (Perineum) SLING OPERATION FOR STRESS INCONTINENCE (Perineum) CYSTOSCOPY (Urethra) Diagnosis: Intra-abdominal and pelvic swelling, mass and lump, unspecified site Abnormal findings on diagnostic imaging of other specified body structures Incomplete uterovaginal prolapse Cystocele, midline Rectocele Surgeons: Leandro Chery MD; Marie Alston MD Responsible Provider: Agus Mauro MD Anesthesia Type: general, regional ASA Status: 3 Anesthesia Type: general, regional Vitals Value Taken Time BP 123/69 12/19/23 1633 Temp 36.2 ?C (97.2 ?F) 12/19/23 1633 Pulse 65 12/19/23 1640 Resp 17 12/19/23 1640 SpO2 95 % 12/19/23 1640 Vitals shown include unfiled device data. Anesthesia Post Evaluation Patient location during evaluation: PACU Patient participation: complete - patient participated Level of consciousness: awake and alert Pain management: satisfactory to patient Multimodal analgesia pain management approach Airway patency: patent Two or more strategies used to mitigate risk of obstructive sleep apnea Cardiovascular status: acceptable and hemodynamically stable Respiratory status: acceptable Hydration status: acceptable No notable events documented. MIPS #430 PONV Patient received an inhalational anesthetic (4554F) Patient exhibits three or more risk factors for PONV (4556F) Patient received at leaset 2 prophylactic Rx PONV anti-emtic agents of different classes preop and/or intraop (G9775) MIPS # 424 Perioperative Temperature Management Anesthesia time was 60 minutes or longer (4255F) Anesthesai administered was General (inhalational or TIVA) or Neuraxial block (X0424) At least one body temperature greater than 95.8F/35.5C achieved within the 30 mins immediately prior to or the 15 minutes immediately following anesthesia end time (G9771) MIPS #477 Multimodal Pain Management Not emergent case Patient was administered multimodal pain management (two or more drugs and/or interventions excluding systemic opioids) in the periopeartive period occurring at some time between 6 hours prior to anesthesia start time until discharged from PACU (G2148) MIPS #404 Anesthesiology Smoking Abstinence The patient is not a current smoker (e.g. cigarette, cigar, pipe, e-cigarette/vaping/marijuana) If no stop here (XX404) I completed my handoff to the receiving clinician during which we: 1. Identified the patient 2. Identified the responsible provider 3. Reviewed the pertinent medical history 4. Discussed the surgical course 5. Reviewed intra-op anesthesia management and issues during anesthesia 6. Set expectations for post-procedure period 7. Allowed opportunity for questions and acknowledgement of understanding. [facility] 12-19-2023 Note Airway Date/Time: 12/19/2023 1:12 PM Urgency: scheduled General Information and Staff Patient location during procedure: Procedural Performed: SRNA Indications and Patient Condition Indications for airway management: anesthesia Sedation level: Asleep Preoxygenated: yes Patient position: sniffing Mask difficulty assessment: 1 - vent by mask Final Airway Details Final airway type: endotracheal airway Successful airway: ETT Cuffed: yes Successful intubation technique: direct laryngoscopy Facilitating devices/methods: intubating stylet Endotracheal tube insertion site: oral Blade: Lencho Blade size: #3 ETT size (mm): 7.0 Cormack-Lehane Classification: grade IIa - partial view of glottis Placement verified by: chest auscultation and capnometry Measured from: lips ETT to lips (cm): 20 Number of attempts at approach: 1 [facility] 12-19-2023 Note Peripheral Block Time Out: 12/19/2023 1:08 PM Patient location during procedure: Procedural Start time: 12/19/2023 1:08 PM End time: 12/19/2023 1:11 PM Reason for block: at surgeon's request and post-op pain management Staffing Performed: HISTOLOGY AIDE Resident/HISTOLOGY AIDE: Julian Hayes APRN - [place] Preanesthetic Checklist Completed: patient identified, IV checked, site marked, risks and benefits discussed, surgical consent, monitors and equipment checked, pre-op evaluation and timeout performed Region: [place] Primary: TAP (Bupivacaine 0.375%/ Epi 1:200,000/ Dex 0.1mg/mL 40ml divided evenly bilateral) Secondary: Upper rectus (Bupivacaine 0.375%/ Epi 1:200,000/ Dex 0.1mg/mL 20ml divided evenly bilateral) Peripheral Block Patient position: supine Prep: ChloraPrep Patient monitoring: heart rate, ekg monitor tech, continuous pulse ox and continuous capnometry O2: ETT/LMA Laterality: bilateral Injection technique: single-shot Guidance: ultrasound guided -image retained in chart, tip of the needle identified by ultraound during injection. Needle Needle: 21G X 110 mm Additional Notes 12/19/2023 1:08 PM Assessment Injection assessment: negative aspiration for heme, no paresthesia on injection and incremental injection Heart rate change: no Slow fractionated injection: yes Required Documentation: Relevant anatomy identified (Nerves, Vessels, Muscles), Negative for blood on aspiration, Local anesthetic injected incrementally with intermittent aspiration every 5 mL, Normal resistance with injection, No EKG changes noted, No symptoms of toxicity, Local anesthetic spread visualized around nerves or plane. and Local anesthetic injected without difficultyMedications bveQGHPAyqxwt-fqrhjjylqdh-pjprdhnu ine (TAP) syringe - Injection 60 mL - 12/19/2023 1:08:00 PM [facility] 12-19-2023 Note Formatting of this n ote might be different from the original. Date of surgery 12/19/2023 preoperative diagnosis pelvic mass, uterine prolapse postoperative diagnosis uterine leiomyoma, pelvic mass, uterine prolapse Procedure performed was laparoscopic assisted vaginal hysterectomy with BSO Surgeon Vik Anesthesia General Description of findings; there was a subserosal pedunculated myoma posterior aspect of the uterus. No evidence of malignancy was found. Description of operation patient identified brought to the operating room and after ministration general anesthetic underwent abdominal perineal vaginal prepped and draped in lithotomy position using yellowfin's. Compression stockings were used f, manipulator was placed in the uterus White catheter in the bladder. Timeout performed given. Using a knife a small incision made in the umbilicus using a 5 mm Optiview blunt port the abdominal cavity was entered under direct vision insufflated with CO2 and then under direct vision da Elizabeth ports were placed in the left lower quadrants. Trendelenburg was then used to displace about about the pelvis. Right and left ovarian vessels were skeletonized both ureters coagulated and divided. As was the broad ligament and the round ligaments. This allowed the bladder flap to be dissected inferiorly using sharp dissection. Uterine vessels bilaterally were skeletonized coagulated and divided using the Enseal device. A pedunculated leiomyoma on the posterior aspect of the uterus was dissected the rectovaginal space using the Enseal device. It was left attached to the posterior aspect of the uterus. All the laparoscopic instruments were then removed the defects and skin closed with subcuticular 4-0 Monocryl and Dermabond. Attention was then turned down below where the manipulator was removed. 20 cc 1% lidocaine with epinephrine was injected around the abdomen close to 360 degrees, a colpotomy incision was then made using a #10 blade, the posterior cul-de-sac was properly identified and sharply opened using Metzenbaum scissors. The long weighted speculum was then used to retract the rectum posteriorly. The vesicovaginal space was then opened, the vesicovaginal space was dissected and the bladder was held anteriorly using a Shana retractor. The right and left uterosacral ligaments were were clamped cut and tied using 0 Vicryl transfixion sutures and Eliz clamps. The remnants of the cardinal ligaments were then clamped and divided bilaterally using clamps and 0 Vicryl transfixion sutures. This allowed the uterus cervix tubes ovaries and the mass to be removed out of the vagina. Angle sutures were placed at 3 9:00 compartment uterosacral ligaments with the cuff of the vagina. Hemostasis was noted. Blood loss my procedure was minimal. The surgery was then turned over to urogynecology for repair of her vaginal prolapse. T [facility] 12-19-2023 Note Formatting of this n ote is different from the original. Date: 12/19/2023 Location: [facility] OR Name: Vandana Mitchell, : 1950, Diagnosis Pre-op Diagnosis * Intra-abdominal and pelvic swelling, mass and lump, unspecified site [R19.00] * Abnormal findings on diagnostic imaging of other specified body structures [R93.89] * Incomplete uterovaginal prolapse [N81.2] * Cystocele, midline [N81.11] * Rectocele [N81.6] Post-op Diagnosis * Intra-abdominal and pelvic swelling, mass and lump, unspecified site [R19.00] * Abnormal findings on diagnostic imaging of other specified body structures [R93.89] * Incomplete uterovaginal prolapse [N81.2] * Cystocele, midline [N81.11] * Rectocele [N81.6] Procedures LAPAROSCOPIC VAGINAL HYSTERECTOMY WITH REMOVAL BILATERAL SALPINGO OOPHORECTOMY 56225 - MN LAPS W/VAG HYSTERECT 250 GM/&RMVL TUBE&/OVARIES UTEROSACRAL LIGAMENT SUSPENSION, ANTERIOR/POSTERIOR REPAIR, POSSIBLE SLING PROCEDURE, CYSTOSCOPY 28573 - MN COLPOPEXY VAGINAL INTRAPERITONEAL APPROACH ANTERIOR AND POSTERIOR COLPORRHAPHY 08884 - MN CMBND ANTERPOST COLPORRAPHY W/CYSTO SLING OPERATION FOR STRESS INCONTINENCE 23762 - MN SLING OPERATION STRESS INCONTINENCE CYSTOSCOPY 21765 - MN CYSTOURETHROSCOPY Surgeons Panel 1: * Leandro Chery - Primary * Carmen Pastrana - Assisting * Isis Salcido - Assisting Panel 2: * Marie Alston - Primary * Lisette Daniels - Assisting Procedure Summary Anesthesia: General ASA: III Estimated Blood Loss: Minimal Drains: Urethral Catheter (Active) Specimens ID Source Type Tests Collected By Collected At Frozen? Priority Lab ID 1 Uterus Tissue TISSUE EXAM Leandro Chery MD 12/19/23 1410 No Description: UTERUS, CERVIX, BILATERAL TUBES AND OVARIES Comment: WEIGHT: 115G Staff: Federal Mediation Commissioner: Anamaria Rebolledo RN Scrub Person: Geovanny Cheung Findings: uterine leiomyoma Complications: None; patient tolerated the procedure well. Specimens Collected: Order Name Source Comment Collection Info Order Time POTASSIUM WITH MG REFLEX For patients on dialysis to draw potassium day of surgery 12/19/2023 10:51 AM PROTHROMBIN TIME If patient on coumadin within 4 days prior. 12/19/2023 10:51 AM CBC (HEMOGRAM) Blood, Venous Collected By: Rosalind Barrera RN 12/19/2023 10:51 AM HCG QUALITATIVE URINE Urine, Clean Catch Discontinue this order if: 1. patient is older than 55 years old 2. has had a prior hysterectomy 3. today's surgery is for treatment of known or suspected ectopic or loss. 4. patient has a known intrauterine but this is a needed surgery. 12/19/2023 10:51 AM TISSUE EXAM Uterus Collected By: Leandro Chery MD 12/19/2023 2:12 PM Wound Class: Class II: Clean-Contaminated Blood Products: None Prophylactic Antibiotics: Procedure appropriate prophylactic antibiotic(s) given within 1 hour of surgical incision (two hours if receiving Vancomycin or flouroquinolone) [facility] 12-19-2023 Note Formatting of this n ote might be different from the original. Date of surgery 12/19/2023 preoperative diagnosis pelvic mass, uterine prolapse postoperative diagnosis uterine leiomyoma, pelvic mass, uterine prolapse Procedure performed was laparoscopic assisted vaginal hysterectomy with BSO Surgeon Vik Anesthesia General Description of findings; there was a subserosal pedunculated myoma posterior aspect of the uterus. No evidence of malignancy was found. Description of operation patient identified brought to the operating room and after ministration general anesthetic underwent abdominal perineal vaginal prepped and draped in lithotomy position using yellowfin's. Compression stockings were used f, manipulator was placed in the uterus White catheter in the bladder. Timeout performed given. Using a knife a small incision made in the umbilicus using a 5 mm Optiview blunt port the abdominal cavity was entered under direct vision insufflated with CO2 and then under direct vision da Elizabeth ports were placed in the left lower quadrants. Trendelenburg was then used to displace about about the pelvis. Right and left ovarian vessels were skeletonized both ureters coagulated and divided. As was the broad ligament and the round ligaments. This allowed the bladder flap to be dissected inferiorly using sharp dissection. Uterine vessels bilaterally were skeletonized coagulated and divided using the Enseal device. A pedunculated leiomyoma on the posterior aspect of the uterus was dissected the rectovaginal space using the Enseal device. It was left attached to the posterior aspect of the uterus. All the laparoscopic instruments were then removed the defects and skin closed with subcuticular 4-0 Monocryl and Dermabond. Attention was then turned down below where the manipulator was removed. 20 cc 1% lidocaine with epinephrine was injected around the abdomen close to 360 degrees, a colpotomy incision was then made using a #10 blade, the posterior cul-de-sac was properly identified and sharply opened using Metzenbaum scissors. The long weighted speculum was then used to retract the rectum posteriorly. The vesicovaginal space was then opened, the vesicovaginal space was dissected and the bladder was held anteriorly using a Shaan retractor. The right and left uterosacral ligaments were were clamped cut and tied using 0 Vicryl transfixion sutures and Eliz clamps. The remnants of the cardinal ligaments were then clamped and divided bilaterally using clamps and 0 Vicryl transfixion sutures. This allowed the uterus cervix tubes ovaries and the mass to be removed out of the vagina. Angle sutures were placed at 3 9:00 compartment uterosacral ligaments with the cuff of the vagina. Hemostasis was noted. Blood loss my procedure was minimal. The surgery was then turned over to urogynecology for repair of her vaginal prolapse. T [facility] 12-19-2023 Note Formatting of this n ote is different from the original. Date: 12/19/2023 Location: [facility] OR Name: Vandana Mitchell, : 1950, Diagnosis Pre-op Diagnosis * Intra-abdominal and pelvic swelling, mass and lump, unspecified site [R19.00] * Abnormal findings on diagnostic imaging of other specified body structures [R93.89] * Incomplete uterovaginal prolapse [N81.2] * Cystocele, midline [N81.11] * Rectocele [N81.6] Post-op Diagnosis * Intra-abdominal and pelvic swelling, mass and lump, unspecified site [R19.00] * Abnormal findings on diagnostic imaging of other specified body structures [R93.89] * Incomplete uterovaginal prolapse [N81.2] * Cystocele, midline [N81.11] * Rectocele [N81.6] Procedures LAPAROSCOPIC VAGINAL HYSTERECTOMY WITH REMOVAL BILATERAL SALPINGO OOPHORECTOMY 05817 - MN LAPS W/VAG HYSTERECT 250 GM/&RMVL TUBE&/OVARIES UTEROSACRAL LIGAMENT SUSPENSION, ANTERIOR/POSTERIOR REPAIR, POSSIBLE SLING PROCEDURE, CYSTOSCOPY 03411 - MN COLPOPEXY VAGINAL INTRAPERITONEAL APPROACH ANTERIOR AND POSTERIOR COLPORRHAPHY 90495 - MN CMBND ANTERPOST COLPORRAPHY W/CYSTO SLING OPERATION FOR STRESS INCONTINENCE 86669 - MN SLING OPERATION STRESS INCONTINENCE CYSTOSCOPY 68967 - MN CYSTOURETHROSCOPY Surgeons Panel 1: * Leandro Chery - Primary * Carmen Pastrana - Assisting * Isis Salcido - Assisting Panel 2: * Marie Alston - Primary * Lisette Daniels - Assisting Procedure Summary Anesthesia: General ASA: III Estimated Blood Loss: Minimal Drains: Urethral Catheter (Active) Specimens ID Source Type Tests Collected By Collected At Frozen? Priority Lab ID 1 Uterus Tissue TISSUE EXAM Leandro Chery MD 12/19/23 1410 No Description: UTERUS, CERVIX, BILATERAL TUBES AND OVARIES Comment: WEIGHT: 115G Staff: Federal Mediation Commissioner: Anamaria Rebolledo RN Scrub Person: Geovanny Cheung Findings: uterine leiomyoma Complications: None; patient tolerated the procedure well. Specimens Collected: Order Name Source Comment Collection Info Order Time POTASSIUM WITH MG REFLEX For patients on dialysis to draw potassium day of surgery 12/19/2023 10:51 AM PROTHROMBIN TIME If patient on coumadin within 4 days prior. 12/19/2023 10:51 AM CBC (HEMOGRAM) Blood, Venous Collected By: Rosalind Barrera RN 12/19/2023 10:51 AM HCG QUALITATIVE URINE Urine, Clean Catch Discontinue this order if: 1. patient is older than 55 years old 2. has had a prior hysterectomy 3. today's surgery is for treatment of known or suspected ectopic or loss. 4. patient has a known intrauterine but this is a needed surgery. 12/19/2023 10:51 AM TISSUE EXAM Uterus Collected By: Leandro Chery MD 12/19/2023 2:12 PM Wound Class: Class II: Clean-Contaminated Blood Products: None Prophylactic Antibiotics: Procedure appropriate prophylactic antibiotic(s) given within 1 hour of surgical incision (two hours if receiving Vancomycin or flouroquinolone) [facility] 12-19-2023 Note OPERATIVE/PROCEDURE REPORT LOG ID: [id number] Surgery/Procedure Date: 12/19/2023 Incision/Procedure Start Time: 1328 Incision Close/Procedure End Time: 1620 Surgeon(s)/Proceduralist(s) and Resource Agent(s): Primary: Marie Alston MD Resident - Assisting: Lisette Daniels DO; Nga Ruth DO Procedure(s): Uterosacral ligament vaginal vault suspension (intraperitoneal colpopexy) Anterior colporrhaphy [employer] Obtryx II transobturator midurethral sling Cystourethroscopy Anesthesia: General Indications: The patient is a 73 y.o. with stage 3 anterior predominant uterovaginal prolapse with cystocele and rectocele who had presented for consultation. On POP-Q exam point Aa was +3, Ba +3, C -4, GH 3, PB 2.5, TVL 8, Ap -1, Bp -1, and D -6. She desired surgical management at the time of planned hysterectomy for pelvic mass with Dr. Chery. Preoperative urodynamics were obtained and negative for stress urinary incontinence. She desired a prophylactic concomitant continence procedure. She was counseled about all the risks, benefits, alternatives, complications, indications, and personnel of the procedures performed which she accepted. Findings: Stage 3 uterovaginal prolapse. Good support following the procedure. Cystourethroscopy without evidence of foreign body, cystotomy, or urethrotomy. Brisk efflux from bilateral ureteral orifices. Rectal exam at the end of the procedure revealed no injury or suture in the rectum. Vaginal sweep at the end of the procedure revealed no foreign body in the vagina. Procedure Details: The patient was taken to the operating room where a surgical time-out and safety checklist were performed. The patient was then given prophylactic antibiotics and compression stockings were applied bilaterally. She underwent general anesthesia without any difficulty. She was positioned in the dorsal lithotomy position using Yellofins, making sure that her extremities were not overly extended or flexed. She was prepped and draped in the normal sterile fashion. A White catheter was inserted and the bladder was drained of all urine. She then underwent hysterectomy with Dr. Chery. See separate operative report for details. Allis clamps were placed on the lateral edges of the vaginal cuff at the distal end of the uterosacral ligaments. The posterior cuff was reefed for hemostasis. Two large moist laparotomy sponges were inserted to push the bowel cephalad. Breisky Navratil and right angle retractors were used to adequately visualize the uterosacral ligaments. The ligaments were easily visualized and palpated bilaterally. A long Allis clamp was placed over the ligaments superior to the ischial spine. A 0 PDS suture was placed from lateral to medial fashion directly underneath the Allis clamp. In a similar fashion, two more 0 PDS stitches were placed further proximally. The steps were repeated on the contralateral side without difficulty. The sutures were clamped to the drape. Both lap sponges were removed from the abdomen. Next, the cystocele repair was performed. The incised apex of the anterior vaginal wall was grasped transversely with Allis clamps and elevated. Dilute lidocaine with epinephrine was injected into the subepithelium along the midline of the anterior vaginal wall. A scalpel was used to create a midline incision from the bladder neck to the anterior vaginal cuff. Allis clamps were placed on the edges and the vaginal epithelium was dissected off the bladder bilaterally using the Felton scissors. The anterior subepithelial tissue was plicated using 2-0 PDS imbricating sutures, reducing the cystocele. The vaginal epithelial flaps were trimmed and reapproximated using 2-0 Vicryl in a running locked fashion. Next, the uterosacral vaginal vault stitches were anchored. On the patients right side, the most distal 0 PDS suture was driven through the full thickness of the vaginal cuff at the 9 o'clock position. The next proximal 0 PDS suture was driven through the 10 o'clock and 8 o'clock positions. Lastly the most proximal 0 PDS was driven through the vaginal cuff at the 11 o'clock and 7 o'clock positions. The steps were then mirrored on the contralateral side without difficulty. The vaginal epithelium that was left open in the midline was reapproximated in a transverse fashion using 2-0 Vicryl without trapping the uterosacral sutures. All the uterosacral sutures were tied down and clamped to the drape. Next, the trocar insertion sites were marked in the bilateral groin creases below the insertion of the adductor longus muscle at the level of the clitoris. Dilute lidocaine with epinephrine was injected into the subepithelium under the midurethra and lateral to the midurethra. Two 0.5 cm incisions were made at the previously marked sites in the groin. An incision was made using the scalpel through the vaginal epithelium underlying the midurethra. The (more content not included)... [facility] 12-19-2023 Hospital Discharge instructions Carmen Pastrana DO - 12/19/2023 12:59 PM EDT Please follow your post operative care instructions given to you by your Apparel Manufacture Instructor Oncologist's office at your pre operative visit. Please call the office with questions or concerns and be sure to follow up at your scheduled post operative visit. documented in this encounter [facility] 12-19-2023 Attending History and physical note H&P reviewed. The patient was examined and there are no changes to the H&P. Source Note - Javed Shay PA-C - 12/14/2023 3:00 PM EDT Comprehensive PreSurgical History and Physical ? Name: Vandana Mitchell : 1950 (Age-73 y.o.) Date of Service: Pt seen/examined on 12/14/2023 Procedure Information Date/Time: 12/19/23 1230 Procedures: LAPAROSCOPIC VAGINAL HYSTERECTOMY WITH REMOVAL BILATERAL SALPINGO OOPHORECTOMY (Bilateral: Abdomen) - 1.[address] CHERY GOING FIRST 2.[address] ALSTON GOING SECOND 4.5 HOURS TOTAL WITH CHANGE-OVER UTEROSACRAL LIGAMENT SUSPENSION, ANTERIOR/POSTERIOR REPAIR, POSSIBLE SLING PROCEDURE, CYSTOSCOPY ANTERIOR AND POSTERIOR COLPORRHAPHY (Perineum) SLING OPERATION FOR STRESS INCONTINENCE (Perineum) CYSTOSCOPY (Urethra) Location: [facility] OR [address] [place] [address] Operating Room Surgeons: Leandro Chery MD; Marie Alston MD Chief Complaint: SOME THING FALLING OUT OF VAGINAL VAULT ASSESSMENT/PLAN: Patient is considered intermediate risk for this intermediate risk procedure/surgery noted above with no reducible risk factors. Based on the above evaluation, the benefits of the planned procedure likely exceed the risks. The patient is medically optimized to proceed with the planned procedure without any further cardiopulmonary testing. 1) PELVIC ORGAN PROLAPSE ; Managed per surgery 2 HTN Elevated today, advised to monitor and follow up with PCP if persists Compliant with meds. Taking CARDIZEM Follows with PCP Labs and EKG done BP Readings from Last 3 Encounters: 12/14/23 (!) 157/80 12/05/23 (!) 182/80 11/30/23 (!) 153/80 3) H/O SVT / Hypertrophic cardiomyopathy ; F/U WITH LOCATION MANAGER IN [place] UNDER [facility] SEE THE NOTES FROM 05/16/2022 IN CARE EVERY WHERE 4) S/P SCOLIOSIS SURGERY ; SOME TIMES SOB /SEASONAL ALLERGIES/ASTHMA / OBSTRUCTIVE AIR WAY DISEASE ; ON ALBUTEROL AND AEROSOL TREATMENT AND CALCIUM 5) INSOMNIA ; TAKES MELATONIN VERY RARELY 6) SNORE Visit Type: Pre-Admission Testing Visit Labs Ordered: NO - COMPLETE PRIOR TO PAT VISIT ; ONLY ORDERED TYPE AND SCREEN Sleep Referral Ordered: NO - NEGATIVE SCREEN PER SLEEP REFERRAL PROTOCOL Total time spent (which include face to face and non face to face encounters) : 45 minutes Toxic drug monitoring/narrow therapeutic index drug monitoring : # Drug name : CARDIZEM # Route administered : PO # Method of monitoring : LAB AND EKG PAT Protocol referenced includes: 1. Anesthesia Lab Protocol Orders 2. Perioperative Cardiovascular Risk Assessment 3. Anesthesia Assessment 4. Pain Assessment and Acute Pain Service Consult (if appropriate) 5. Medical Clearance/Consult from Internal Medicine ([facility]) 6. Shower/Wash Order (for designated surgeries) 7. ELSA Screen and Sleep Clinic Referral (if appropriate) History Of Present Illness: 73 y.o. female who presents with chief complaint mentioned above. Per surgeon's note dated 11/28/23 Vandana Mitchell is a 73 y.o. female who presents for consultation requested by Leandro Chery MD for an opinion regarding pelvic organ prolapse. HISTORY OF PRESENT ILLNESS: Pt reports h/o POP with poor success with pessary use in the past. She is planning hysterectomy/BSO, possible staging with Dr. Cehry due to recent finding of complex pelvic mass and desires concomitant surgical management of her POP. THERAPEUTIC RECREATION ASSISTANT HISTORY: Last Pap: 12/03/15 NILM; Last Mammogram: 12/02/22 negative LMP: No LMP recorded.; Menopause post: Menstrual history: NA; Deliveries: vaginal x2, h/o operative delivery Weight of largest baby: 7 lb Sexual function Sexually active: No, not since prolapse Pt has seen the surgeon and elected for above procedure. Hx problems with anesthesia? - Past Medical History: Past Medical History: No date: Arthritis 08/09/2018: Bilateral carotid artery stenosis No date: Diastolic dysfunction No date: Diverticulosis 05/31/2019: Dyspnea on exertion 11/18/2005: Essential hypertension 07/06/2011: Family history of colon cancer Comment: 02/22/10- repeat every 5yrs. No date: History of transfusion No date: HOCM (hypertrophic obstructive cardiomyopathy) (CMS/HCC) ([facility]) 08/09/2018: Hypercalcemia 04/05/2016: Incomplete uterovaginal prolapse No date: Insomnia No date: Kidney stone No date: Melanocytic nevi of trunk 03/30/2017: Monoclonal gammopathy Comment: Seeing Dr. Oneill annually 10/27/2011: Multinodular thyroid 03/18/2020: Non-rheumatic mitral regurgitation Comment: Last ECHO 200901/24/2017: Normal pelvic exam 01/28/2019: Obstructive cardiomyopathy (CMS/HCC) ([facility]) 10/10/2011: Osteoporosis Comment: Seen by and Rosalinda in 2011 No date: PONV (postoperative nausea and vomiting) 01/09/2015: Postmenopausal atrophic vaginitis 01/28/2019: Precordial pain 10/26/2011: Psychophysiological insomnia No date: Pulmonary embolism ([facility]) No date: Renal cyst 07/31/2015: Restrictive 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 Comment: Last Assessment & Plan: Major limitation is with SOB when she is doing any activity. Going places causes her to have issues. Specially if there is inclines or steps. 01/09/2011: Scoliosis (and kyphoscoliosis), idiopathic Comment: Surgery 1963 - [facility] Last Assessment & Plan: She has issues with walking etc, with the kyphoscoliosis. No date: Small airways disease 01/14/2020: SVT (supraventricular tachycardia) ([facility]) Comment: Per 7d holtor monitor: HR 62-167, avg 82; NSR with 1AVB, 7 runs SVT, 9.3% isolated SVE, rare couplets No date: Urinary incontinence No date: Vaginal infection Past Surgical History: Past Surgical History: No date: CATARACT EXTRACTION; Bilateral No date: LITHOTRIPSY 1964: SCOLIOSIS SURGERY (HISTORICAL) Comment: rodded No date: TONSILLECTOMY No date: WISDOM TOOTH EXTRACTION No date: WRIST SURGERY; Left Medications Prior to Admission: Current Outpatient Medications: acetaminophen (Tylenol) 325 MG capsule, Take by mouth if needed., Disp: , Rfl: albuterol 108 (90 Base) MCG/ACT inhaler, Inhale 2 puffs every 4 hours as needed., Disp: , Rfl: CALCIUM-ERGOCALCIFEROL PO, Take by mouth., Disp: , Rfl: clindamycin 1 % gel, Apply topically daily., Disp: , Rfl: denosumab (Prolia) 60 MG/ML solution prefilled syringe, Inject 60 mg under the skin Once., Disp: , Rfl: dilTIAZem CD (Cardizem CD) 180 MG 24 hr capsule, Take 180 mg by mouth in the morning., Disp: , Rfl: Fluticasone-Salmeterol 250-50 MCG/ACT aerosol powder , Inhale 1 puff in the morning and 1 puff in the evening., Disp: , Rfl: melatonin 3 MG tablet, Take 3 mg by mouth., Disp: , Rfl: Multiple Vitamins-Minerals (Centrum Ultra Womens) tablet, Take by mouth daily., Disp: , Rfl: CHRONIC NARCOTIC USE: No Allergies: Amoxicillin, Diclofenac, Hydrocortisone, Iodine, Salicylates, Shellfish allergy, Tioconazole, and Metoprolol If patient has opioid allergy, is it okay to take Acetaminophen: N/A Social History: TOBACCO: reports that she has never smoked. She has never used smokeless tobacco. ETOH: reports current alcohol use. Social History Substance and Sexual Activity Drug Use Never Family History: Family History Problem Relation Name Age of Onset Colon cancer Mother Colon cancer Hypertension Mother Colon cancer Cancer Mother Colon cancer Colon cancer Father Colon cancer Diabetes Father Colon cancer Cancer Father Colon cancer Hypertension Maternal Grandmother High bp Hypertension Paternal Grandfather High bp Mother REVIEW OF SYSTEMS: Review of Systems Constitutional: Negative for chills and fever. Respiratory: Negative for shortness of breath. Gastrointestinal: Negative for nausea and vomiting. All other systems reviewed and are negative. Pertinent positives as noted in the HPI. Physical Exam: Physical Exam Vitals and nursing note reviewed. Constitutional: Appearance: Normal appearance. HENT: Head: Normocephalic and atraumatic. Mouth/Throat: Mouth: Mucous membranes are moist. Eyes: Extraocular Movements: Extraocular movements intact. Pupils: Pupils are equal, round, and reactive to light. Cardiovascular: Rate and Rhythm: Normal rate and regular rhythm. Pulses: Normal pulses. Pulmonary: Effort: Pulmonary effort is normal. Abdominal: General: Bowel sounds are normal. Musculoskeletal: Cervical back: Normal range of motion and neck supple. Skin: General: Skin is warm. Neurological: General: No focal deficit present. Mental Status: She is alert. Psychiatric: Mood and Affect: Mood normal. Behavior: Behavior normal. Vitals: Vitals Value Taken Time BP 157/80 12/14/23 1310 Temp 36.9 C (98.4 F) 12/14/23 1255 Pulse 89 12/14/23 1255 Resp 16 12/14/23 1255 SpO2 96 % 12/14/23 1255 BP (!) 157/80 Pulse 89 Temp 36.9 C (98.4 F) (Temporal) Resp 16 Ht 1.588 m (5' 2.5 ) Wt 50.8 kg (112 lb) SpO2 96% BMI 20.16 kg/m Labs: Lab Results Component Value Date WBC NONE SEEN 11/28/2023 Lab Results Component Value Date CREATININE 0.65 12/05/2023 GLUCOSE NEGATIVE 11/28/2023 EGFR 92 12/05/2023 Kalyan's Simple Cardiac Risk Index: KALYAN'S SIMPLE CARDIAC RISK SCORE: 1 Interpretation: 0 Points Class I 0.5% 1 Point Class II 1.3% 2 Points Class III 3.6% 3+ Points Class IV 9.1% METS >4 METS (Able to climb a flight of stairs with no chest pain or shortness of breath): Yes Walk indoors, such as around the house (1.75 METs), Do light work around the house, such as dusting or washing dishes (2.70 METs), Take care of self, that is eating, dressing, bathing, using the toilet (2.75 METs), Do moderate work around the house such as vacuuming, sweeping floors, or carrying in groceries (3.50 METs), Do yardwork, such as raking leaves, weeding,or pushing a power mower (4.50 METs), Climb a flight of stairs or walk up a hill (5.50 METs) PAT Pain Score: Postop Pain Management Plan (Pain consult ordered?): Pain consult not indicated at this time EKG: Done on 09/04/23 ; REPORT IN CARE EVERY WHERE Procedure Date : Sep 04 2023 10:56:03 Edit Date : Sep 05 2023 08:27:01 Diagnosis: NORMAL SINUS RHYTHM NORMAL ECG Confirmed by MD SHAR, GUANAKO () on 09/05/2023 8:26:57 AM ECHO and EF: 10/16/23 CONCLUSIONS: 1. SPECT Perfusion Study: Normal. 2. There is no scintigraphic evidence for inducible ischemia. 3. No evidence of scarred myocardium. 4. Left ventricle is small. The left ventricle systolic function is hyperdynamic. 5. Right ventricle is normal in size. The right ventricle systolic function is normal. 6. This is a low risk scan. Gated Stress FBP Gated Rest FBP LVEF % 81 79 Prior Study Comparison Prior nuclear cardiology exam was performed on 02/11/19 which was normal. Electronically signed by: Javed Shay PA-C Date: 12/14/2023 at 1:48 PM [employer] Work Phone: 12-19-2023 Note H&P reviewed. The pa rachelent was examined and there are no changes to the H&P. [employer] [facility] 12-19-2023 History and physical note H&P reviewed. The patient was examined and there are no changes to the H&P. Source Note - Javed Shay PA-C - 12/14/2023 3:00 PM EDT Comprehensive PreSurgical History and Physical ? Name: Vandana Mitchell : 1950 (Age-73 y.o.) Date of Service: Pt seen/examined on 12/14/2023 Procedure Information Date/Time: 12/19/23 1230 Procedures: LAPAROSCOPIC VAGINAL HYSTERECTOMY WITH REMOVAL BILATERAL SALPINGO OOPHORECTOMY (Bilateral: Abdomen) - 1.[address] CHERY GOING FIRST 2.[address] ALSTON GOING SECOND 4.5 HOURS TOTAL WITH CHANGE-OVER UTEROSACRAL LIGAMENT SUSPENSION, ANTERIOR/POSTERIOR REPAIR, POSSIBLE SLING PROCEDURE, CYSTOSCOPY ANTERIOR AND POSTERIOR COLPORRHAPHY (Perineum) SLING OPERATION FOR STRESS INCONTINENCE (Perineum) CYSTOSCOPY (Urethra) Location: [facility] OR [facility] Operating Room Surgeons: Leandro Chery MD; Marie Alston MD Chief Complaint: SOME THING FALLING OUT OF VAGINAL VAULT ASSESSMENT/PLAN: Patient is considered intermediate risk for this intermediate risk procedure/surgery noted above with no reducible risk factors. Based on the above evaluation, the benefits of the planned procedure likely exceed the risks. The patient is medically optimized to proceed with the planned procedure without any further cardiopulmonary testing. 1) PELVIC ORGAN PROLAPSE ; Managed per surgery 2 HTN Elevated today, advised to monitor and follow up with PCP if persists Compliant with meds. Taking CARDIZEM Follows with PCP Labs and EKG done BP Readings from Last 3 Encounters: 12/14/23 (!) 157/80 12/05/23 (!) 182/80 11/30/23 (!) 153/80 3) H/O SVT / Hypertrophic cardiomyopathy ; F/U WITH LOCATION MANAGER IN [place] UNDER [facility] SEE THE NOTES FROM 05/16/2022 IN CARE EVERY WHERE 4) S/P SCOLIOSIS SURGERY ; SOME TIMES SOB /SEASONAL ALLERGIES/ASTHMA / OBSTRUCTIVE AIR WAY DISEASE ; ON ALBUTEROL AND AEROSOL TREATMENT AND CALCIUM 5) INSOMNIA ; TAKES MELATONIN VERY RARELY 6) SNORE Visit Type: Pre-Admission Testing Visit Labs Ordered: NO - COMPLETE PRIOR TO PAT VISIT ; ONLY ORDERED TYPE AND SCREEN Sleep Referral Ordered: NO - NEGATIVE SCREEN PER SLEEP REFERRAL PROTOCOL Total time spent (which include face to face and non face to face encounters) : 45 minutes Toxic drug monitoring/narrow therapeutic index drug monitoring : # Drug name : CARDIZEM # Route administered : PO # Method of monitoring : LAB AND EKG PAT Protocol referenced includes: 1. Anesthesia Lab Protocol Orders 2. Perioperative Cardiovascular Risk Assessment 3. Anesthesia Assessment 4. Pain Assessment and Acute Pain Service Consult (if appropriate) 5. Medical Clearance/Consult from Internal Medicine (IMS) 6. Shower/Wash Order (for designated surgeries) 7. ELSA Screen and Sleep Clinic Referral (if appropriate) History Of Present Illness: 73 y.o. female who presents with chief complaint mentioned above. Per surgeon's note dated 11/28/23 Vandana Mitchell is a 73 y.o. female who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 12 VLDL Cholesterol <30 mg/dL 25 TC:HDL Ratio <5.10 3.17 LDL Cholesterol <100 mg/dL 125 (H) LDL:HDL Ratio <2.54 1.81 Hemoglobin A1C 4.3 - 5.6 % 5.6 Estimated Average Glucose mg/dL 114 Vitamin D 25 Hydroxy 31.0 - 80.0 ng/mL 62.3 Legend: (H) High [facility] 12-13-2023 Telephone encounter Note EKG, echo results and stress test results printed and faxed as requested to Dr. Chery office at # [phone]. Called and spoke with pt and she was already aware of results. States she just needed them faxed to Dr. Chery office as she is having surgery there on Monday. Pt had a Mon f/u appt on Monday the with Dr. Rascon but states has too much to do prior to surgery. Rescheduled as requested to 02/08 so she has time to recover from her surgery. Pt had her labs done on 12/03 and has reviewed them already in [facility]. Please call pt only if any changes need to be made otherwise no call needed. [facility] 12-12-2023 Telephone encounter Note Pt called asking for the results of her Echo on 07/10/23, most recent EGK and results from stress test 10/16/23. Can be sent to Ebony Benoit at Dr. Chery office at [facility]. [facility] Work Phone: 12-12-2023 Telephone encounter Note sent [facility] 12-12-2023 Telephone encounter Note PAT: 12.14.2023 at [place] 3 pm SX: 12.19.2023 at 12:30 arrival at 10:30 am Post op 01.03.2024 at 10:45 am Folder and instructions given. [facility] 12-12-2023 Miscellaneous Notes PAT: 12.14.2023 at [place] 3 pm SX: 12.19.2023 at 12:30 arrival at 10:30 am Post op 01.03.2024 at 10:45 am Folder and instructions given. documented in this encounter [facility] 12-12-2023 Telephone encounter Note Patient asking if she needs cardio and pulm clearance we have her scheduled for 12/18 Dr pickens Cardio Constance Campbell [facility] 12-08-2023 Telephone encounter Note Pt called with CT scan. Surgery not until Jan 16. Would not like to wait so long [facility] 12-08-2023 Miscellaneous Notes Pt called with CT scan. Surgery not until Jan 16. Would not like to wait so long Patient returning missed call, please contact when able, thank you Lvmtcob about CT documented in this encounter [facility] 12-08-2023 Telephone encounter Note Patient returning missed call, please contact when able, thank you [facility] 12-08-2023 Telephone encounter Note Lvmtcob about CT [facility] 12-05-2023 History of Present illness Narrative Vandana Mitchell presents for her preoperative visit today. She is scheduled for the following on 01/17/24: Pelvic exam under anesthesia, vaginal vault suspension, cystocele repair, midurethral sling, cystoscopy, possible rectocele repair with perineorrhaphy Combined procedure with Dr. Chery for hysterectomy POP-Q 11/28/23: Aa = +3 Ba = +3 C = -4 GH = 3 PB = 2.5 TVL = 8 Ap = -1 Bp = -1 D = -6 UDS reviewed: Filling and Storage: Bladder sensation is normal without bladder pain, without urgency and with normal detrusor function. Bladder capacity is normal. There is incompetent urethral closure and evidence of urodynamic stress incontinence. Voiding: Overall voiding function is abnormal. Urine flow is continuous with a prolonged, fluctuating flow curve. Detrusor function during voiding is reduced with valsalva augmentation and a normal postvoid residual. Electromyography: Provocative maneuvers produced appropriate changes in waveforms. The EMG shows increased EMG activity with increased intraabdominal pressure. There was a decrease in the EMG activity during voiding consistent with normal function of the pelvic floor. Normal sensation and capacity. +ALVIN. No DO. Valsalva augmentation to void with normal PVR. We reviewed the alternatives to surgery before discussing the risks associated with surgery. We discussed the risks and benefits of each of the surgical procedures in detail. These risks include, but are not limited to, bleeding, transfusion, infection, injury to surrounding organs, development of postoperative stress or urge urinary incontinence, development of postoperative voiding dysfunction with need for prolonged bladder catheterization or self-catheterization, vaginally placed mesh complications, failure of the prolapse and/or continence surgery over time, and need for additional surgery. We also reviewed her urodynamic testing which showed the presence of stress urinary incontinence. I reviewed the risks and benefits of concurrent sling placement, including complications related to mesh placement as well as postoperative voiding dysfunction and urinary retention. She expressed an understanding of this and does wish to have an anti-incontinence procedure at the time of her prolapse surgery. All questions answered. Perioperative considerations: - Will accept blood products - TO sling - No DD, +SA Marie Alston MD Unable to obtain a BP re-check due to patient leaving while I was in a room with another patient. documented in this encounter [facility] 11-30-2023 Telephone encounter Note PAT: 01.05.2024 at 11 am SX: 01.17.2024 at 7:30 am arrival at 5:30 am Post op 02.27.2024 at 10 am Folder and instructions given. [facility] 11-30-2023 Miscellaneous Notes PAT: 01.05.2024 at 11 am SX: 01.17.2024 at 7:30 am arrival at 5:30 am Post op 02.27.2024 at 10 am Folder and instructions given. documented in this encounter [facility] 11-30-2023 History of Present illness Narrative PROCEDURE: MULTI-CHANNEL URODYNAMIC TESTING Indication: Occult ALVIN Verbal consent was obtained. Patient identity was confirmed using two identifiers. The planned procedure and procedure site were confirmed. The procedure site was not marked: single-site, no laterality. The patient was correctly positioned for the procedure. All equipment was available before the procedure was begun. Participants: patient, Montse Davis,[facility] Equipment: Danielle BOLES UROFLOWMETRY: Specifications: Performed in sitting position on Urodynamic chair. Pre-test urge to void: 2/10. (Fowler: 1 = no urge to void, 5 = desire to void (no pain or fear of leakage), 10 = strong desire to void + pain and /or fear of leakage) Clinical Reliability of Uroflow per patient: [] Reliable [] Not reliable [x] Unable to void Void Volume: Unable to void PVR: 250 mL. Voiding pattern: [] Continuous [] Intermittent [] Interrupted [x] Unable to void Qmax: Unable to void Urine Dipstick: negative COMPLEX CYSTOMETRY: Specifications: Performed in urodynamic chair in the upright position. Air-charged sensor catheters placed transurethrally and transrectally. Calibration to resting pDet < 10 cm H20. Filling medium: room temperature sterile water. Fill rate: 40 mL/minute. Catheter placement note: [x] Without difficulty [] Difficult: Prolapse reduction: [x] Scopette [x] Speculum [] Pessary [] N/A Filling Sensation: First sensation of fillin mL First desire to void: 264 mL Strong desire to void: 306 mL Detrusor Activity: Detrusor overactivity present: [] Yes [x] No Urine loss associated with detrusor contraction: [] Yes [] No [x] N/A Leakage perceived by patient: [] Yes [x] No [] N/A Cystometric Capacity: 340 mL. End point: [x] Patient felt full [] Overactive bladder/Urge urinary incontinence Urodynamic Stress Test: 1. Result: No Leak Provocation method: cough,valsalva Intravesical volume: 112 mL. Pressure Measurement: 50 cm H20. 2. Result: No Leak Provocation method: cough,valsalva Intravesical volume: 208 mL. Pressure Measurement: 53 cm H20. 3. Result: + Leak Provocation method: cough,valsalva Intravesical volume: 307 mL. Pressure Measurement: 53 cm H20. 4. Result: + Leak Provocation method: cough,valsalva Intravesical volume: 340 mL. Pressure Measurement: 57 cm H20. PRESSURE-FLOW STUDY: Voided Volume: 367 mL. Clinical Reliability: [x] Reliable [] Not reliable [] Unable to void Urine Flow: [] Continuous [x] Intermittent [x] Interrupted [] Unable to void Maximum flow rate: 21.8 mL/s. PVR: 0 mL. Evidence of straining: [] Yes [x] No Bladder Outflow Obstruction: Not Demonstrated [] Yes [] No SURFACE ELECTROMYOGRAPHY: Specifications: Adhesive surface electrodes placed: 2 recording electrodes on either side of the anal sphincter and 1 ground electrode. Electrode wires connected to a 12 V electromyography unit. Activity during filling: [x] Normal [] Increased [] Decreased Activity during voiding pressure study: [x] Normal [] Increased [] Decreased URETHRAL MOBILITY: [x] Present [] Minimal [] Absent INTERPRETATION: Technical Quality of Test: [x] Adequate [] Inadequate Clinical Reliability of Test: [x] Reliable [] Not reliable BLADDER STORAGE FUNCTION: Bladder sensation: [x] Normal [] Reduced [] Absent [] Increased Detrusor activity: [x] Normal [] Reduced [] Absent [] Increased Bladder compliance: [x] Normal [] Reduced [] Absent [] Increased Bladder capacity: [x] Normal [] Reduced [] Absent [] Increased URETHRAL FUNCTION: [] Normal [x] Urodynamic Stress Urinary Incontinence [] Intrinsic Sphincter Deficiency [] Glhwkiiu-Xnwelsrvb-Guochtjqqic VOIDING FUNCTION: Detrusor Function: [x] Normal [] Reduced [] Absent [] Increased Urethral Function: [x] Normal [] Absent [] Increased Results of testing reviewed with patent after completion of testing. Plan: Follow up with Dr Alston documented in this encounter [facility] 11-30-2023 History of Present illness Narrative PROCEDURE: MULTI-CHANNEL URODYNAMIC TESTING Indication: Occult ALVIN Verbal consent was obtained. Patient identity was confirmed using two identifiers. The planned procedure and procedure site were confirmed. The procedure site was not marked: single-site, no laterality. The patient was correctly positioned for the procedure. All equipment was available before the procedure was begun. Participants: patient, NOMI Rodriguez Equipment: Danielle Daniels KT COMPLEX UROFLOWMETRY: Specifications: Performed in sitting position on Urodynamic chair. Pre-test urge to void: 2/10. (Fowler: 1 = no urge to void, 5 = desire to void (no pain or fear of leakage), 10 = strong desire to void + pain and /or fear of leakage) Clinical Reliability of Uroflow per patient: [] Reliable [] Not reliable [x] Unable to void Void Volume: Unable to void PVR: 250 mL. Voiding pattern: [] Continuous [] Intermittent [] Interrupted [x] Unable to void Qmax: Unable to void Urine Dipstick: negative COMPLEX CYSTOMETRY: Specifications: Performed in urodynamic chair in the upright position. Air-charged sensor catheters placed transurethrally and transrectally. Calibration to resting pDet < 10 cm H20. Filling medium: room temperature sterile water. Fill rate: 40 mL/minute. Catheter placement note: [x] Without difficulty [] Difficult: Prolapse reduction: [x] Scopette [x] Speculum [] Pessary [] N/A Filling Sensation: First sensation of fillin mL First desire to void: 264 mL Strong desire to void: 306 mL Detrusor Activity: Detrusor overactivity present: [] Yes [x] No Urine loss associated with detrusor contraction: [] Yes [] No [x] N/A Leakage perceived by patient: [] Yes [x] No [] N/A Cystometric Capacity: 340 mL. End point: [x] Patient felt full [] Overactive bladder/Urge urinary incontinence Urodynamic Stress Test: 1. Result: No Leak Provocation method: cough,valsalva Intravesical volume: 112 mL. Pressure Measurement: 50 cm H20. 2. Result: No Leak Provocation method: cough,valsalva Intravesical volume: 208 mL. Pressure Measurement: 53 cm H20. 3. Result: + Leak Provocation method: cough,valsalva Intravesical volume: 307 mL. Pressure Measurement: 53 cm H20. 4. Result: + Leak Provocation method: cough,valsalva Intravesical volume: 340 mL. Pressure Measurement: 57 cm H20. PRESSURE-FLOW STUDY: Voided Volume: 367 mL. Clinical Reliability: [x] Reliable [] Not reliable [] Unable to void Urine Flow: [] Continuous [x] Intermittent [x] Interrupted [] Unable to void Maximum flow rate: 21.8 mL/s. PVR: 0 mL. Evidence of straining: [] Yes [x] No Bladder Outflow Obstruction: Not Demonstrated [] Yes [] No SURFACE ELECTROMYOGRAPHY: Specifications: Adhesive surface electrodes placed: 2 recording electrodes on either side of the anal sphincter and 1 ground electrode. Electrode wires connected to a 12 V electromyography unit. Activity during filling: [x] Normal [] Increased [] Decreased Activity during voiding pressure study: [x] Normal [] Increased [] Decreased URETHRAL MOBILITY: [x] Present [] Minimal [] Absent INTERPRETATION: Technical Quality of Test: [x] Adequate [] Inadequate Clinical Reliability of Test: [x] Reliable [] Not reliable BLADDER STORAGE FUNCTION: Bladder sensation: [x] Normal [] Reduced [] Absent [] Increased Detrusor activity: [x] Normal [] Reduced [] Absent [] Increased Bladder compliance: [x] Normal [] Reduced [] Absent [] Increased Bladder capacity: [x] Normal [] Reduced [] Absent [] Increased URETHRAL FUNCTION: [] Normal [x] Urodynamic Stress Urinary Incontinence [] Intrinsic Sphincter Deficiency [] Zbwcwgql-Gyhcloadj-Uyrixbheojt VOIDING FUNCTION: Detrusor Function: [x] Normal [] Reduced [] Absent [] Increased Urethral Function: [x] Normal [] Absent [] Increased Results of testing reviewed with patent after completion of testing. Plan: Follow up with Dr Gordy CLEMENT Filling and Storage: Bladder sensation is normal without bladder pain, without urgency and with normal detrusor function. Bladder capacity is normal. There is incompetent urethral closure and evidence of urodynamic stress incontinence. Voiding: Overall voiding function is abnormal. Urine flow is continuous with a prolonged, fluctuating flow curve. Detrusor function during voiding is reduced with valsalva augmentation and a normal postvoid residual. Electromyography: Provocative maneuvers produced appropriate changes in waveforms. The EMG shows increased EMG activity with increased intraabdominal pressure. There was a decrease in the EMG activity during voiding consistent with normal function of the pelvic floor. Normal sensation and capacity. +ALVIN. No DO. Valsalva augmentation to void with normal PVR. Marie Alston MD documented in this encounter [facility] 11-30-2023 Note PROCEDURE: MULTI-KVNG NNEL URODYNAMIC TESTING Indication: Occult ALVIN Verbal consent was obtained. Patient identity was confirmed using two identifiers. The planned procedure and procedure site were confirmed. The procedure site was not marked: single-site, no laterality. The patient was correctly positioned for the procedure. All equipment was available before the procedure was begun. Participants: patient, Montse Davis,[facility] Equipment: Danielle BOLES UROFLOWMETRY: Specifications: Performed in sitting position on Urodynamic chair. Pre-test urge to void: 2/10. (Fowler: 1 = no urge to void, 5 = desire to void (no pain or fear of leakage), 10 = strong desire to void + pain and /or fear of leakage) Clinical Reliability of Uroflow per patient: [] Reliable [] Not reliable [x] Unable to void Void Volume: Unable to void PVR: 250 mL. Voiding pattern: [] Continuous [] Intermittent [] Interrupted [x] Unable to void Qmax: Unable to void Urine Dipstick: negative COMPLEX CYSTOMETRY: Specifications: Performed in urodynamic chair in the upright position. Air-charged sensor catheters placed transurethrally and transrectally. Calibration to resting pDet < 10 cm H20. Filling medium: room temperature sterile water. Fill rate: 40 mL/minute. Catheter placement note: [x] Without difficulty [] Difficult: Prolapse reduction: [x] Scopette [x] Speculum [] Pessary [] N/A Filling Sensation: First sensation of fillin mL First desire to void: 264 mL Strong desire to void: 306 mL Detrusor Activity: Detrusor overactivity present: [] Yes [x] No Urine loss associated with detrusor contraction: [] Yes [] No [x] N/A Leakage perceived by patient: [] Yes [x] No [] N/A Cystometric Capacity: 340 mL. End point: [x] Patient felt full [] Overactive bladder/Urge urinary incontinence Urodynamic Stress Test: 1. Result: No Leak Provocation method: cough,valsalva Intravesical volume: 112 mL. Pressure Measurement: 50 cm H20. 2. Result: No Leak Provocation method: cough,valsalva Intravesical volume: 208 mL. Pressure Measurement: 53 cm H20. 3. Result: + Leak Provocation method: cough,valsalva Intravesical volume: 307 mL. Pressure Measurement: 53 cm H20. 4. Result: + Leak Provocation method: cough,valsalva Intravesical volume: 340 mL. Pressure Measurement: 57 cm H20. PRESSURE-FLOW STUDY: Voided Volume: 367 mL. Clinical Reliability: [x] Reliable [] Not reliable [] Unable to void Urine Flow: [] Continuous [x] Intermittent [x] Interrupted [] Unable to void Maximum flow rate: 21.8 mL/s. PVR: 0 mL. Evidence of straining: [] Yes [x] No Bladder Outflow Obstruction: Not Demonstrated [] Yes [] No SURFACE ELECTROMYOGRAPHY: Specifications: Adhesive surface electrodes placed: 2 recording electrodes on either side of the anal sphincter and 1 ground electrode. Electrode wires connected to a 12 V electromyography unit. Activity during filling: [x] Normal [] Increased [] Decreased Activity during voiding pressure study: [x] Normal [] Increased [] Decreased URETHRAL MOBILITY: [x] Present [] Minimal [] Absent INTERPRETATION: Technical Quality of Test: [x] Adequate [] Inadequate Clinical Reliability of Test: [x] Reliable [] Not reliable BLADDER STORAGE FUNCTION: Bladder sensation: [x] Normal [] Reduced [] Absent [] Increased Detrusor activity: [x] Normal [] Reduced [] Absent [] Increased Bladder compliance: [x] Normal [] Reduced [] Absent [] Increased Bladder capacity: [x] Normal [] Reduced [] Absent [] Increased URETHRAL FUNCTION: [] Normal [x] Urodynamic Stress Urinary Incontinence [] Intrinsic Sphincter Deficiency [] Twqnnria-Sthnqihmk-Nrgtkzfxpdm VOIDING FUNCTION: Detrusor Function: [x] Normal [] Reduced [] Absent [] Increased Urethral Function: [x] Normal [] Absent [] Increased Results of testing reviewed with patent after completion of testing. Plan: Follow up with Dr Alston ADDENDUM Filling and Storage: Bladder sensation is normal without bladder pain, without urgency and with normal detrusor function. Bladder capacity is normal. There is incompetent urethral closure and evidence of urodynamic stress incontinence. Voiding: Overall voiding function is abnormal. Urine flow is continuous with a prolonged, fluctuating flow curve. Detrusor function during voiding is reduced with valsalva augmentation and a normal postvoid residual. Electromyography: Provocative maneuvers produced appropriate changes in waveforms. The EMG shows increased EMG activity with increased intraabdominal pressure. There was a decrease in the EMG activity during voiding consistent with normal function of the pelvic floor. Normal sensation and capacity. +ALVIN. No DO. Valsalva augmentation to void with normal PVR. Marie Alston MD [facility] 11-28-2023 History of Present illness Narrative Female Pelvic Medicine & Reconstructive Surgery Consult CHIEF COMPLAINT: Vandana Mitchell is a 73 y.o. female who presents for consultation requested by Leandro Chery MD for an opinion regarding pelvic organ prolapse. HISTORY OF PRESENT ILLNESS: Pt reports h/o POP with poor success with pessary use in the past. She is planning hysterectomy/BSO, possible staging with Dr. Chery due to recent finding of complex pelvic mass and desires concomitant surgical management of her POP. 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 No 0 Usually experience heaviness or dullness in the pelvic area? No 0 Usually have a bulge or something falling out that you can see or feel in your vaginal area? Yes 4 Ever have to push on the vagina or around the rectum to have or complete a bowel movement? Yes 2 Usually experience a feeling of incomplete bladder emptying? Yes 4 Ever have to push up on a bulge in the vaginal area with your fingers to start or complete urination? Yes 4 Feel you need to strain too hard to have a bowel movement? Yes 1 Feel you have not completely emptied your bowels at the end of a bowel movement? Yes 1 Usually lose stool beyond your control if your stool is well formed? No 0 Usually lose stool beyond your control if your stool is loose? No 0 Usually lose gas from the rectum beyond your control? Yes 3 Usually have pain when you pass your stool? No 0 Experience a strong sense of urgency and have to graham to the bathroom to have a bowel movement? Yes 2 Does part of your bowel ever pass through the rectum and bulge outside during or after a bowel movement? No 0 Usually experience frequent urination? Yes 4 Usually experience urine leakage associated with a feeling of urgency, that is, a strong sensation of needing to go to the bathroom? Yes 3 Usually experience urine leakage related to coughing, sneezing or laughing? No 0 Usually experience small amounts of urine leakage (that is, drops)? Yes 4 Usually experience difficulty emptying your bladder? Yes 4 Usually experience pain or discomfort in the lower abdomen or genital region? No 0 Past Surgical History: Procedure Laterality Date SCOLIOSIS SURGERY (HISTORICAL) TONSILLECTOMY WISDOM TOOTH EXTRACTION WRIST SURGERY x2 Past Medical History: Diagnosis Date Arthritis Bilateral carotid artery stenosis 08/09/2018 Diastolic dysfunction Diverticulosis Dyspnea on exertion 05/31/2019 Essential hypertension 11/18/2005 Family history of colon cancer 07/06/2011 02/22/10- repeat every 5yrs. HOCM (hypertrophic obstructive cardiomyopathy) (CMS/HCC) (HCC) Hypercalcemia 08/09/2018 Incomplete uterovaginal prolapse 04/05/2016 Insomnia Melanocytic nevi of trunk Monoclonal gammopathy 03/30/[address] Oneill annually Multinodular thyroid 10/27/2011 Non-rheumatic mitral regurgitation 03/18/2020 Last ECHO 2009 Normal pelvic exam 01/24/2017 Obstructive cardiomyopathy (CMS/HCC) (HCC) 01/28/2019 Osteoporosis 10/10/2011 Seen by and Rosalinda in 2011 Postmenopausal atrophic vaginitis 01/09/2015 Precordial pain 01/28/2019 Psychophysiological insomnia 10/26/2011 Pulmonary embolism (HCC) Renal cyst Restrictive 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 07/31/2015 Last Assessment & Plan: Major limitation is with SOB when she is doing any activity. Going places causes her to have issues. Specially if there is inclines or steps. Scoliosis (and kyphoscoliosis), idiopathic 01/09/2011 Surgery 1964 - [facility] Last Assessment & Plan: She has issues with walking etc, with the kyphoscoliosis. Small airways disease SVT (supraventricular tachycardia) (HCC) 01/14/2020 Per 7d holtor monitor: HR 62-167, avg 82; NSR with 1AVB, 7 runs SVT, 9.3% isolated SVE, rare couplets Family History Problem Relation Name Age of Onset Colon cancer Mother Hypertension Mother Colon cancer Father Diabetes Father Hypertension Maternal Grandmother Social History Tobacco Use Smoking status: Never Smokeless tobacco: Never Substance Use Topics Alcohol use: Yes Comment: social Drug use: Never Current Outpatient Medications Medication Sig Dispense Refill Fluticasone-Salmeterol 250-50 MCG/ACT aerosol powder Inhale 1 puff in the morning and 1 puff in the evening. acetaminophen (Tylenol) 325 MG capsule Take by mouth if needed. albuterol 108 (90 Base) MCG/ACT inhaler Inhale 2 puffs every 4 hours as needed. CALCIUM-ERGOCALCIFEROL PO Take by mouth. clindamycin 1 % gel Apply topically daily. denosumab (Prolia) 60 MG/ML solution prefilled syringe Inject 60 mg under the skin Once. dilTIAZem CD (Cardizem CD) 180 MG 24 hr capsule Take 180 mg by mouth in the morning. melatonin 3 MG tablet Take 3 mg by mouth. Multiple Vitamins-Minerals (Centrum Ultra Womens) tablet Take by mouth daily. predniSONE (Deltasone) 50 MG tablet Take 1 tablet 13 hours, 7 hours and [address] scan[address] 3 tablet 2 No current facility-administered medications for this visit. Allergies Allergen Reactions Amoxicillin Rash Diclofenac Shortness of breath Hydrocortisone Iodine Shortness of breath Other Reaction(s): Anaphylaxis Salicylates Swelling Other Reaction(s): lips swell lip swelling Shellfish Allergy Anaphylaxis Tioconazole Rash Other Reaction(s): Intolerance Burning Metoprolol Nausea And Vomiting Other Reaction(s): PT UNSURE OF REACTION SOB REVIEW OF SYSTEMS General: unintentional weight loss Skin: negative Psychiatric: negative Neurologic: negative Endocrine: negative Cardiovascular: positive for feet swelling Hematologic/Lymphatic: negative Respiratory: positive for - shortness of breath Gastrointestinal: negative Musculoskeletal: positive for joint pain I have confirmed and edited as necessary, the PFSH and ROS obtained by others. Marie Alston MD Traffic Signal Supervisor Maintenance: Kirsten Sanchez MA OBJECTIVE: Physical Exam BP (!) 177/78 Pulse 92 Wt 112 lb (50.8 kg) BMI 20.16 kg/m Constitutional: Body mass index is 20.16 kg/m . General Appearance: no acute distress, normally developed, and affect appropriate Skin: normal coloration and turgor, no rashes Lungs: unlabored breathing Heart: not examined Breasts: not examined Abdomen: abdomen is soft without significant tenderness, masses, organomegaly or guarding. Pelvic: External Genitalia: normal appearing vulva with no masses, tenderness, or lesions Vagina: Ant Wall - Stage III; Post Wall - Stage II Cervix / [place] - Stage I POP-Q: Aa = +3 Ba = +3 C = -4 GH = 3 PB = 2.5 TVL = 8 Ap = -1 Bp = -1 D = -6 Vaginal epithelium: atrophic Cervix: normal appearing cervix without discharge or lesions Urethra: normal appearing urethra with no masses, tenderness or lesions and hypermobile, neg CEMENT FITTINGS MAKER Bimanual: pelvic mass not appreciated Rectovaginal: rectocele noted Anal Sphincter: Resting Tone: Normal Sphincter Defect: No Levator Ani Tone: normal Levator Ani Tenderness: No Saddle Sensory Exam (S2-4): normal Procedure: The urethra was prepped with betadine. A lubricated 14F catheter was inserted and the postvoid residual urine was collected. The PVR was 190 ml. Urine dip - straight cath: trace blood Pelvic US 11/15/23: Uterus 6.1 x 4.5 x 2.2 cm, 1.9 cm fibroid, EMS 2 mm R ovary not visualized L ovary solid mass 5.2 x 4.0 x 3.0 cm IMPRESSION: Vandana Mitchell is a 73 y.o. female with stage 3 anterior predominant uterovaginal prolapse with cystocele and rectocele, incomplete bladder emptying, abnormal urine dip PLAN: 1. Incomplete uterovaginal prolapse - We discussed the options for management of pelvic organ prolapse including pelvic floor muscle exercises/pelvic floor physical therapy, pessary, and surgery. For surgical options we discussed the risks and benefits of council tissue vaginal repair with or without uterine preservation versus sacrocolpopexy with mesh (laparoscopic, open). - Vandana desires to proceed with a council tissue vaginal repair at the time of hysterectomy with Dr. Chery. Plan for USLS, A/P repair. 2. Cystocele, midline - As above 3. Rectocele - As above 4. Incomplete bladder emptying - Likely secondary to advanced prolapse. Discussed risk of unmasking ALVIN with POP repair. Obtain preop urodynamics. Discussed possible concomitant continence procedure. - POCT urinalysis dipstick manually resulted 5. Abnormal urine finding - Urine culture - Complete Urinalysis My final recommendations will be communicated back to the requesting physician by way of shared medical record or letter via [place] mail. Marie Alston MD Traffic Signal Supervisor Maintenance was offered to the patient for exam. Patient accepted, medical staff manager in room during exam,KIRSTEN SANCHEZ MA documented in this encounter [facility] 11-28-2023 History of Present illness Narrative Female Pelvic Medicine & Reconstructive Surgery Consult CHIEF COMPLAINT: Vandana Mitchell is a 73 y.o. female who presents for consultation requested by Leandro Chery MD for an opinion regarding pelvic organ prolapse. HISTORY OF PRESENT ILLNESS: Pt reports h/o POP with poor success with pessary use in the past. She is planning hysterectomy/BSO, possible staging with Dr. Chery due to recent finding of complex pelvic mass and desires concomitant surgical management of her POP. 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 No 0 Usually experience heaviness or dullness in the pelvic area? No 0 Usually have a bulge or something falling out that you can see or feel in your vaginal area? Yes 4 Ever have to push on the vagina or around the rectum to have or complete a bowel movement? Yes 2 Usually experience a feeling of incomplete bladder emptying? Yes 4 Ever have to push up on a bulge in the vaginal area with your fingers to start or complete urination? Yes 4 Feel you need to strain too hard to have a bowel movement? Yes 1 Feel you have not completely emptied your bowels at the end of a bowel movement? Yes 1 Usually lose stool beyond your control if your stool is well formed? No 0 Usually lose stool beyond your control if your stool is loose? No 0 Usually lose gas from the rectum beyond your control? Yes 3 Usually have pain when you pass your stool? No 0 Experience a strong sense of urgency and have to graham to the bathroom to have a bowel movement? Yes 2 Does part of your bowel ever pass through the rectum and bulge outside during or after a bowel movement? No 0 Usually experience frequent urination? Yes 4 Usually experience urine leakage associated with a feeling of urgency, that is, a strong sensation of needing to go to the bathroom? Yes 3 Usually experience urine leakage related to coughing, sneezing or laughing? No 0 Usually experience small amounts of urine leakage (that is, drops)? Yes 4 Usually experience difficulty emptying your bladder? Yes 4 Usually experience pain or discomfort in the lower abdomen or genital region? No 0 Past Surgical History: Procedure Laterality Date SCOLIOSIS SURGERY (HISTORICAL) TONSILLECTOMY WISDOM TOOTH EXTRACTION WRIST SURGERY x2 Past Medical History: Diagnosis Date Arthritis Bilateral carotid artery stenosis 08/09/2018 Diastolic dysfunction Diverticulosis Dyspnea on exertion 05/31/2019 Essential hypertension 11/18/2005 Family history of colon cancer 07/06/2011 02/22/10- repeat every 5yrs. HOCM (hypertrophic obstructive cardiomyopathy) (CMS/HCC) (HCC) Hypercalcemia 08/09/2018 Incomplete uterovaginal prolapse 04/05/2016 Insomnia Melanocytic nevi of trunk Monoclonal gammopathy 03/30/[address] Oneill annually Multinodular thyroid 10/27/2011 Non-rheumatic mitral regurgitation 03/18/2020 Last ECHO 2010 Normal pelvic exam 01/24/2017 Obstructive cardiomyopathy (CMS/HCC) (HCC) 01/28/2019 Osteoporosis 10/10/2011 Seen by and Rosalinda in 2012 Postmenopausal atrophic vaginitis 01/09/2015 Precordial pain 01/28/2019 Psychophysiological insomnia 10/26/2011 Pulmonary embolism (HCC) Renal cyst Restrictive 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 07/31/2015 Last Assessment & Plan: Major limitation is with SOB when she is doing any activity. Going places causes her to have issues. Specially if there is inclines or steps. Scoliosis (and kyphoscoliosis), idiopathic 01/09/2011 Surgery 1964 - [facility] Last Assessment & Plan: She has issues with walking etc, with the kyphoscoliosis. Small airways disease SVT (supraventricular tachycardia) (HCC) 01/14/2020 Per 7d holtor monitor: HR 62-167, avg 82; NSR with 1AVB, 7 runs SVT, 9.3% isolated SVE, rare couplets Family History Problem Relation Name Age of Onset Colon cancer Mother Hypertension Mother Colon cancer Father Diabetes Father Hypertension Maternal Grandmother Social History Tobacco Use Smoking status: Never Smokeless tobacco: Never Substance Use Topics Alcohol use: Yes Comment: social Drug use: Never Current Outpatient Medications Medication Sig Dispense Refill Fluticasone-Salmeterol 250-50 MCG/ACT aerosol powder Inhale 1 puff in the morning and 1 puff in the evening. acetaminophen (Tylenol) 325 MG capsule Take by mouth if needed. albuterol 108 (90 Base) MCG/ACT inhaler Inhale 2 puffs every 4 hours as needed. CALCIUM-ERGOCALCIFEROL PO Take by mouth. clindamycin 1 % gel Apply topically daily. denosumab (Prolia) 60 MG/ML solution prefilled syringe Inject 60 mg under the skin Once. dilTIAZem CD (Cardizem CD) 180 MG 24 hr capsule Take 180 mg by mouth in the morning. melatonin 3 MG tablet Take 3 mg by mouth. Multiple Vitamins-Minerals (Centrum Ultra Womens) tablet Take by mouth daily. predniSONE (Deltasone) 50 MG tablet Take 1 tablet 13 hours, 7 hours and [address] scan. 3 tablet 2 No current facility-administered medications for this visit. Allergies Allergen Reactions Amoxicillin Rash Diclofenac Shortness of breath Hydrocortisone Iodine Shortness of breath Other Reaction(s): Anaphylaxis Salicylates Swelling Other Reaction(s): lips swell lip swelling Shellfish Allergy Anaphylaxis Tioconazole Rash Other Reaction(s): Intolerance Burning Metoprolol Nausea And Vomiting Other Reaction(s): PT UNSURE OF REACTION SOB REVIEW OF SYSTEMS General: unintentional weight loss Skin: negative Psychiatric: negative Neurologic: negative Endocrine: negative Cardiovascular: positive for feet swelling Hematologic/Lymphatic: negative Respiratory: positive for - shortness of breath Gastrointestinal: negative Musculoskeletal: positive for joint pain I have confirmed and edited as necessary, the PFSH and ROS obtained by others. Marie Alston MD Traffic Signal Supervisor Maintenance: Kirsten Sanchez MA OBJECTIVE: Physical Exam BP (!) 177/78 Pulse 92 Wt 112 lb (50.8 kg) BMI 20.16 kg/m Constitutional: Body mass index is 20.16 kg/m . General Appearance: no acute distress, normally developed, and affect appropriate Skin: normal coloration and turgor, no rashes Lungs: unlabored breathing Heart: not examined Breasts: not examined Abdomen: abdomen is soft without significant tenderness, masses, organomegaly or guarding. Pelvic: External Genitalia: normal appearing vulva with no masses, tenderness, or lesions Vagina: Ant Wall - Stage III; Post Wall - Stage II Cervix / [place] - Stage I POP-Q: Aa = +3 Ba = +3 C = -4 GH = 3 PB = 2.5 TVL = 8 Ap = -1 Bp = -1 D = -6 Vaginal epithelium: atrophic Cervix: normal appearing cervix without discharge or lesions Urethra: normal appearing urethra with no masses, tenderness or lesions and hypermobile, neg CEMENT FITTINGS MAKER Bimanual: pelvic mass not appreciated Rectovaginal: rectocele noted Anal Sphincter: Resting Tone: Normal Sphincter Defect: No Levator Ani Tone: normal Levator Ani Tenderness: No Saddle Sensory Exam (S2-4): normal Procedure: The urethra was prepped with betadine. A lubricated 14F catheter was inserted and the postvoid residual urine was collected. The PVR was 190 ml. Urine dip - straight cath: trace blood Pelvic US 11/15/23: Uterus 6.1 x 4.5 x 2.2 cm, 1.9 cm fibroid, EMS 2 mm R ovary not visualized L ovary solid mass 5.2 x 4.0 x 3.0 cm IMPRESSION: Vandana Mitchell is a 73 y.o. female with stage 3 anterior predominant uterovaginal prolapse with cystocele and rectocele, incomplete bladder emptying, abnormal urine dip PLAN: 1. Incomplete uterovaginal prolapse - We discussed the options for management of pelvic organ prolapse including pelvic floor muscle exercises/pelvic floor physical therapy, pessary, and surgery. For surgical options we discussed the risks and benefits of council tissue vaginal repair with or without uterine preservation versus sacrocolpopexy with mesh (laparoscopic, open). - Vandana desires to proceed with a council tissue vaginal repair at the time of hysterectomy with Dr. Chery. Plan for USLS, A/P repair. 2. Cystocele, midline - As above 3. Rectocele - As above 4. Incomplete bladder emptying - Likely secondary to advanced prolapse. Discussed risk of unmasking ALVIN with POP repair. Obtain preop urodynamics. Discussed possible concomitant continence procedure. - POCT urinalysis dipstick manually resulted 5. Abnormal urine finding - Urine culture - Complete Urinalysis My final recommendations will be communicated back to the requesting physician by way of shared medical record or letter via [place] mail. Marie Alston MD Traffic Signal Supervisor Maintenance was offered to the patient for exam. Patient accepted, medical staff manager in room during exam,KIRSTEN SANCHEZ MA documented in this encounter [facility] 11-27-2023 Telephone encounter Note Patient has not heard from uro c d stripper [facility] 11-27-2023 Miscellaneous Notes Patient has not heard from uro c d stripper Spoke to patient and reviewed prep for ct including benadryl 50mg I hour prior to CT. She verbalizes understanding. Patient is scheduled for CT scan on 12/06/23 in [place]. Has allergy to contrast. Please send in rx to pharmacy. She uses [facility] in [place]. Thank you! documented in this encounter [facility] 11-24-2023 Telephone encounter Note Spoke to patient and reviewed prep for ct including benadryl 50mg I hour prior to CT. She verbalizes understanding. [facility] 11-24-2023 Telephone encounter Note Patient is scheduled for CT scan on 12/06/23 in [place]. Has allergy to contrast. Please send in rx to pharmacy. She uses [facility] in [place]. Thank you! [facility] 11-24-2023 Telephone encounter Note Patient requesting callback with status update on CT being scheduled, please contact when able, thank you [facility] 11-24-2023 Miscellaneous Notes Patient requesting callback with status update on CT being scheduled, please contact when able, thank you documented in this encounter [facility] 11-22-2023 History of Present illness Narrative ctHPI: Vandana Mitchell is a pleasant 73 y.o. female who presents in consultation from Dr. Chew for further evaluation and management of left adnexal mass. She initiallypresented with hx of prolapse for several years. Has used pessary for 2 - 3 years. Not happy with psessary. Has tried several different pessaries in the past without success. Has to splint with BM and voiding. Always has something hanging out of the vagina. She recently saw her urologist to have the pessary changed and vaginal bleeding was noted. This was thought to be due to an ulcer in the vagina. As result of the vaginal bleeding she underwent an ultrasound. This showed an abnormality on the left side of the uterus. Patient underwent pelvic ultrasound that shows a 5 and half centimeter solid left adnexal mass, uterus did show a small fibroid is as well as a normal endometrial stripe. Patient denies any pelvic pain, denies any pelvic pressure or discomfort. Denies any abdominal bloating, early satiety. She has had a significant weight loss over the last 2 years. Underwent a workup in [address] scan of the abdomen pelvis and chest which showed no abnormalities. Does have severe scoliosis. Has some pulmonary dysfunction due to this. Denies any cardiac issues. Would like to have the pelvic prolapse fixed if at all possible. She has been hesitant to do surgery because of her scoliosis. Past Medical History: Diagnosis Date Arthritis Bilateral carotid artery stenosis 08/09/2018 Diastolic dysfunction Diverticulosis Dyspnea on exertion 05/31/2019 Essential hypertension 11/18/2005 Family history of colon cancer 07/06/2011 02/22/10- repeat every 5yrs. HOCM (hypertrophic obstructive cardiomyopathy) (CMS/HCC) ([facility]) Hypercalcemia 08/09/2018 Incomplete uterovaginal prolapse 04/05/2016 Insomnia Melanocytic nevi of trunk Monoclonal gammopathy 03/30/[address] Oneill annually Multinodular thyroid 10/27/2011 Non-rheumatic mitral regurgitation 03/18/2020 Last ECHO 2009 Normal pelvic exam 01/24/2017 Obstructive cardiomyopathy (CMS/HCC) (HCC) 01/28/2019 Osteoporosis 10/10/2011 Seen by and Rosalinda in 2011 Postmenopausal atrophic vaginitis 01/09/2015 Precordial pain 01/28/2019 Psychophysiological insomnia 10/26/2011 Pulmonary embolism ([facility]) Renal cyst Restrictive 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 07/31/2015 Last Assessment & Plan: Major limitation is with SOB when she is doing any activity. Going places causes her to have issues. Specially if there is inclines or steps. Scoliosis (and kyphoscoliosis), idiopathic 01/09/2011 Surgery 1964 - [facility] Last Assessment & Plan: She has issues with walking etc, with the kyphoscoliosis. Small airways disease SVT (supraventricular tachycardia) ([facility]) 01/14/2020 Per 7d holtor monitor: HR 62-167, avg 82; NSR with 1AVB, 7 runs SVT, 9.3% isolated SVE, rare couplets Past Surgical History: Procedure Laterality Date SCOLIOSIS SURGERY (HISTORICAL) TONSILLECTOMY WISDOM TOOTH EXTRACTION WRIST SURGERY x2 Breathing issues related to scoliosis Family History Problem Relation Name Age of Onset Colon cancer Mother Hypertension Mother Colon cancer Father Diabetes Father Hypertension Maternal Grandmother No hx DVT PE or ME Social History Socioeconomic History Marital status: Tobacco Use Smoking status: Never Smokeless tobacco: Never Substance and Sexual Activity Alcohol use: Yes Comment: social Drug use: Never Social Determinants of Health Financial Resource Strain: Patient Declined (09/12/2022) Received from [facility] Financial Resource Strain (CARDIA) Difficulty of Paying Living Expenses: Patient declined Food Insecurity: No Food Insecurity (09/12/2022) Received from [facility] Hunger Vital Sign Worried About Running Out of Food in the Last Year: Never true Ran Out of Food in the Last Year: Never true Transportation Needs: No Transportation Needs (09/12/2022) Received from [facility] PRAPARE - Transportation Lack of Transportation (Medical): No Lack of Transportation (Non-Medical): No Social Connections: Unknown (09/12/2022) Received from [facility] Social Connection and Isolation Panel [NHANES] Frequency of Communication with Friends and Family: Patient declined Frequency of Social Gatherings with Friends and Family: Patient declined Attends Religion Services: Patient declined Attends Club or Organization Meetings: Patient declined Marital Status: Housing Stability: Low Risk (09/12/2022) Received from [facility] Housing Stability Vital Sign Unable to Pay for Housing in the Last Year: No Number of Places Lived in the Last Year: 1 In the last 12 months, was there a time when you did not have a steady place to sleep or slept in a care home (including now)?: No Current Outpatient Medications Medication Sig Dispense Refill acetaminophen (Tylenol) 325 MG capsule Take by mouth if needed. albuterol 108 (90 Base) MCG/ACT inhaler Inhale 2 puffs every 4 hours as needed. budesonide-formoterol (Symbicort) 160-4.5 MCG/ACT inhaler Inhale 2 puffs in the morning and 2 puffs in the evening. CALCIUM-ERGOCALCIFEROL PO Take by mouth. clindamycin 1 % gel Apply topically daily. denosumab (Prolia) 60 MG/ML solution prefilled syringe Inject 60 mg under the skin Once. dilTIAZem CD (Cardizem CD) 180 MG 24 hr capsule Take 180 mg by mouth in the morning. Fluticasone-Salmeterol 250-50 MCG/ACT aerosol powder Inhale 1 puff in the morning and 1 puff in the evening. melatonin 3 MG tablet Take 3 mg by mouth. mometasone-formoterol (Dulera 100) 100-5 MCG/ACT inhaler Inhale 2 puffs in the morning and 2 puffs in the evening. Pediatric Multiple Vitamins (pediatric multivitamin) tablet chewable split tablet Take 1 tablet by mouth in the morning. No current facility-administered medications for this visit. Allergies as of 11/22/2023 - Reviewed 11/22/2023 Allergen Reaction Noted Amoxicillin Rash 04/22/2005 Diclofenac Shortness of breath 02/21/2006 Iodine Shortness of breath 04/22/2005 Salicylates Swelling 04/22/2005 Tioconazole Rash 04/22/2005 Review of Systems: Review of Systems Constitutional: Positive for unexpected weight change. Unintended weight loss weight loss was negative Respiratory: Negative for wheezing and stridor. Gastrointestinal: Negative for abdominal distention and abdominal pain. Genitourinary: Negative for pelvic pain and vaginal bleeding. Symptomatic uterovaginal prolapse Hematological: Negative for adenopathy. BP (!) 176/86 Pulse 87 Ht 1.588 m (5' 2.5 ) Wt 50.3 kg (111 lb) BMI 19.98 kg/m Physical Exam: Physical Exam Vitals and nursing note reviewed. Exam conducted with a excellence manager present. Constitutional: Appearance: Normal appearance. Cardiovascular: Rate and Rhythm: Normal rate and regular rhythm. Pulmonary: Effort: Pulmonary effort is normal. Breath sounds: Normal breath sounds. Abdominal: General: Abdomen is flat. There is no distension. Palpations: Abdomen is soft. There is no mass. Tenderness: There is no abdominal tenderness. Hernia: No hernia is present. Genitourinary: General: Normal vulva. Labia: Right: No lesion. Left: No lesion. Urethra: No urethral lesion. Vagina: Prolapsed vaginal welsh present. Cervix: Normal. Uterus: With uterine prolapse. Adnexa: Right: No mass. Left: Mass present. Comments: Complete uterovaginal prolapse, the bladder is hanging outside the vaginal introitus, cervix is at the introitus. Pelvic exam is difficult, there is a mass on the left side of the pelvis but it does feel somewhat pliable, possible colon with stool? There is no cul-de-sac nodularity noted. Musculoskeletal: Comments: Severe scoliosis Lymphadenopathy: Lower Body: No right inguinal adenopathy. Neurological: Mental Status: She is alert. Psychiatric: Mood and Affect: Mood normal. Behavior: Behavior normal. Labs: No components found for: CBC No components found for: CMP Pathology: Radiology review; personally been reviewed and does show a complex left adnexal mass. Mostly solid. No ascites is noted. Differential diagnosis would include benign versus malignant neoplasm ASSESSMENT/PLAN: Diagnosis Plan 1. Pelvic mass in female Creatinine, Serum CT pelvis w IV contrast Creatinine, Serum 2. Abnormal finding on radiology exam Creatinine, Serum CT pelvis w IV contrast Creatinine, Serum 3. Uterovaginal prolapse Will obtain CT scan of the pelvis to verify that there is indeed a pelvic mass there. Also would recommend follow-up with her urogynecologist that she would like to have the uterovaginal prolapse fixed. I did discuss the risk of surgery to include bleeding infection and damage to other organs. We also discussed that the pelvic mask is most likely be removed using a laparoscopic maneuver with an LAVH BSO followed by prolapse repair. All the patient's questions were answered to the best my ability and will await the results of the CT scan as well as the urogynecology referral. Total time spent today in review of EMR, review of ultrasound with patient and her as well as coordination of surgical scheduling and urogynecology scheduling was 45 minutes documented in this encounter [facility] 11-22-2023 Note ctHPI: Vandana Mitchell is a pleasant 73 y.o. female who presents in consultation from Dr. Chew for further evaluation and management of left adnexal mass. She initiallypresented with hx of prolapse for several years. Has used pessary for 2 - 3 years. Not happy with psessary. Has tried several different pessaries in the past without success. Has to splint with BM and voiding. Always has something hanging out of the vagina. She recently saw her urologist to have the pessary changed and vaginal bleeding was noted. This was thought to be due to an ulcer in the vagina. As result of the vaginal bleeding she underwent an ultrasound. This showed an abnormality on the left side of the uterus. Patient underwent pelvic ultrasound that shows a 5 and half centimeter solid left adnexal mass, uterus did show a small fibroid is as well as a normal endometrial stripe. Patient denies any pelvic pain, denies any pelvic pressure or discomfort. Denies any abdominal bloating, early satiety. She has had a significant weight loss over the last 2 years. Underwent a workup in [address] scan of the abdomen pelvis and chest which showed no abnormalities. Does have severe scoliosis. Has some pulmonary dysfunction due to this. Denies any cardiac issues. Would like to have the pelvic prolapse fixed if at all possible. She has been hesitant to do surgery because of her scoliosis. Past Medical History: Diagnosis Date Arthritis Bilateral carotid artery stenosis 08/09/2018 Diastolic dysfunction Diverticulosis Dyspnea on exertion 05/31/2019 Essential hypertension 11/18/2005 Family history of colon cancer 07/06/2011 02/22/10- repeat every 5yrs. HOCM (hypertrophic obstructive cardiomyopathy) (CMS/HCC) ([facility]) Hypercalcemia 08/09/2018 Incomplete uterovaginal prolapse 04/05/2016 Insomnia Melanocytic nevi of trunk Monoclonal gammopathy 03/30/[address] Oneill annually Multinodular thyroid 10/27/2011 Non-rheumatic mitral regurgitation 03/18/2020 Last ECHO 2009 Normal pelvic exam 01/24/2017 Obstructive cardiomyopathy (CMS/HCC) (HCC) 01/28/2019 Osteoporosis 10/10/2011 Seen by and Rosalinda in 2011 Postmenopausal atrophic vaginitis 01/09/2015 Precordial pain 01/28/2019 Psychophysiological insomnia 10/26/2011 Pulmonary embolism ([facility]) Renal cyst Restrictive 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 07/31/2015 Last Assessment & Plan: Major limitation is with SOB when she is doing any activity. Going places causes her to have issues. Specially if there is inclines or steps. Scoliosis (and kyphoscoliosis), idiopathic 01/09/2011 Surgery 1964 - [facility] Last Assessment & Plan: She has issues with walking etc, with the kyphoscoliosis. Small airways disease SVT (supraventricular tachycardia) ([facility]) 01/14/2020 Per 7d holtor monitor: HR 62-167, avg 82; NSR with 1AVB, 7 runs SVT, 9.3% isolated SVE, rare couplets Past Surgical History: Procedure Laterality Date SCOLIOSIS SURGERY (HISTORICAL) TONSILLECTOMY WISDOM TOOTH EXTRACTION WRIST SURGERY x2 Breathing issues related to scoliosis Family History Problem Relation Name Age of Onset Colon cancer Mother Hypertension Mother Colon cancer Father Diabetes Father Hypertension Maternal Grandmother No hx DVT PE or ME Social History Socioeconomic History Marital status: Tobacco Use Smoking status: Never Smokeless tobacco: Never Substance and Sexual Activity Alcohol use: Yes Comment: social Drug use: Never Social Determinants of Health Financial Resource Strain: Patient Declined (09/12/2022) Received from [facility] Overall Financial Resource Strain (CARDIA) Difficulty of Paying Living Expenses: Patient declined Food Insecurity: No Food Insecurity (09/12/2022) Received from [facility] Hunger Vital Sign Worried About Running Out of Food in the Last Year: Never true Ran Out of Food in the Last Year: Never true Transportation Needs: No Transportation Needs (09/12/2022) Received from [facility] PRAPARE - Transportation Lack of Transportation (Medical): No Lack of Transportation (Non-Medical): No Social Connections: Unknown (09/12/2022) Received from [facility] Social Connection and Isolation Panel [NHANES] Frequency of Communication with Friends and Family: Patient declined Frequency of Social Gatherings with Friends and Family: Patient declined Attends Religion Services: Patient declined Attends Club or Organization Meetings: Patient declined Marital Status: Housing Stability: Low Risk (09/12/2022) Received from [facility] Housing Stability Vital Sign Unable to Pay for Housing in the Last Year: No Number of Places Lived in the Last Year: 1 In the last 12 months, was there a time when you did not have a steady place to sleep or slept in a care home (including now)?: No Cu (more content not included)... [facility] 11-20-2023 History of Present illness Narrative Patient: Vandana Mitchell PCP: Markus Rascon MD CC: follow up HPI: Vandana Mitchell 73 year old female non-smoker with PMH significant for HTN, MGUS, HOCM, restrictive 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, and asthma. Diagnosed clinically with asthma, unable to perform CARL due to her baseline severe restriction and patient unable to perform Jeannette. Last office visit 03/30/[address] Campbell recommended decreasing Symbicort dosing to 80/4.5. However, patient was reluctant to do so. Current maintenance therapy Wixela 250/50 mcg and as needed Albuterol. Today, patient reports variable cough, not every day . Typically non-productive. No wheezing. Exertional dyspnea with walking fast, climbing stairs, and carrying groceries. She is concerned that her inhaled steroid is causing her bone density to be decreased despite being on the Prolia. No issues with ADLs. No fevers, chills, or night sweats. No unintended weight loss. No lower extremity edema. No GERD/heartburn. No recent hospitalizations or ED visits or upper respiratory infections. Rarely uses Albuterol. ASTHMA CONTROL TEST Date: 11/20/2023 In the last 4 weeks, how much of the time did your asthma keep you from getting as much done at work or home that you wanted to do? A little of the time (4) In the last 4 weeks, how often have you had shortness of breath? 3 to 6 times per week (3) In the last 4 weeks, how often did your asthma symptoms (wheezing, coughing, shortness of breath, chest tightness or pain) wake you up at night or earlier than usual? Not at all (5) In the last 4 weeks, how often have you used your rescue inhaler or nebulizer medication (such as Albuterol, Proventil, Ventolin, Maxair, Xoponex, or Primatene Mist)? Not at all (5) In the last 4 weeks, how would you rate your asthma control? Somewhat controlled (3) Total: more than 20 PAST MEDICAL HISTORY Diagnosis Date Arthritis Diastolic dysfunction Grade I Disorder of bone and cartilage, unspecified Diverticulosis 2009 colonoscopy History of transfusion HOCM (hypertrophic obstructive cardiomyopathy) (HCC) Insomnia, unspecified Melanocytic Nevocellular Nevi pigmented moles of trunk: back mainly 08/02/2011 Mitral valve disorders Monoclonal gammopathy 04/2017 Osteoporosis Other diseases of lung, not elsewhere classified restrictive lung disease Other pulmonary embolism and infarction 07/25/2012 ? had pe with normal d dimer. saw pulmonary. not convinced she did have one. Renal cyst Small airways disease Possible asthma. Patient unable to perform definitive test SVT (supraventricular tachycardia) ([facility]) 01/14/2020 Unspecified essential hypertension Allergies: Amoxicillin Rash Asa [Salicylates] Swelling Comment:lip swelling Diclofenac Shortness of Breath Iodine Shortness of Breath Monistat 1 [Tiocona* Intolerance Comment:Burning dilTIAZem CD (CARDIZEM CD) 180 mg 24 hr capsule Take 1 capsule by mouth once daily. albuterol HFA (VENTOLIN HFA) 90 mcg/actuation inhaler Inhale 2 Puffs as instructed every 4 hours as needed for wheezing/shortness of breath. fluticasone-salmeterol (WIXELA INHUB) 250-50 mcg/dose inhaler Inhale 1 Puff as instructed two times a day. mometasone-formoterol (DULERA) 100-5 mcg/actuation inhaler Inhale 2 Puffs as instructed two times a day. budesonide-formoterol (SYMBICORT) 160-4.5 mcg/actuation inhaler Inhale 2 Puffs as instructed twice daily. calcium citrate (CITRACAL ORAL) Take 2 capsules by mouth two times a day. clindamycin (CLEOCIN T) 1 % gel Apply to affected area once daily. denosumab (PROLIA) 60 mg/mL Inject subcutaneously once every 6 months. melatonin 3 mg tablet Take 3 mg by mouth. qhs acetaminophen 325 mg cap Take by mouth as needed. MULTIVITAMIN ORAL Take 1 tablet by mouth once daily. Social History Tobacco Use Smoking status: Never Smokeless tobacco: Never Tobacco comments: Father smoked in childhood home. Spouse does not smoke. Vaping Use Vaping Use: Never used Substance Use Topics Alcohol use: Yes Comment: Occasionally. Drug use: No Family History Problem Relation Age of Onset Colon Cancer Mother 56 Hypertension Mother Colon Cancer Father Diabetes Father Hypertension Maternal Grandmother PAST SURGICAL HISTORY Procedure Laterality Date BACK SURGERY HX BIOPSY BREAST OPEN INCISIONAL left Bx of breast, incisional COLONOSCOPY FLX DX W/COLLJ SPEC WHEN PFRMD 10/27/2004 Colonoscopy COLONOSCOPY FLX DX W/COLLJ SPEC WHEN PFRMD 02/22/2010 Colonoscopy COLONOSCOPY FLX DX W/COLLJ SPEC WHEN PFRMD 03/19/2015 Colonoscopy CORRECT BUNION,SIMPLE CORRECTION HAMMERTOE EYE SURGERY HX PAST SURGICAL HISTORY OF scoliosis surgery PAST SURGICAL HISTORY OF laser kidney stone TONSILLECTOMY HX TONSILLECTOMY PRIMARY/SECONDARY <AGE 12 Tonsillectomy I reviewed the past medical history, family history, social history and surgical history with changes noted above and updated in EMR. IMMUNIZATIONS Prevnar - 2014 Pneumovax - 2018 Influenza - 2022 COVID-19 - most recent 03/2023 RSV - 04/2023 ROS: All other systems reviewed as negative except for what is noted in HPI and review of systems. PHYSICAL EXAMINATION: BP 140/88 Pulse 68 Resp 15 Wt 50.8 kg (112 lb) SpO2 94% BMI 20.29 kg/m Gen: No acute distress. Cooperative with examination. HEENT: Normocephalic. Sclera, conjunctiva clear. Oral hygeine and dentition good. No thrush. Resp: No stridor, accessory respiratory muscle use, supra-sternal or intercostal retractions. No wheezes, crackles, or rhonchi. CV: Regular rythm. Heart tones normal. Radial pulses normal. Ext: Warm and well perfused. No clubbing, cyanosis, edema. Skin: No rash, ecchymoses. Neuro: Mental status normal. Affect normal. No tremor. ASSESSMENT/PLAN: 1. Asthma-COPD overlap syndrome (HCC) - ICD9: 493.20, ICD10: J44.89 (primary diagnosis) Discussed decreasing dosing of ICS/LABA. Patient prefers to wait until cooler weather as she typically feels more SOB during the summer months. Albuterol HFA inhaler, 2 inhalations 10-15 minutes prior to activities associated with shortness of breath, and as needed for rescue relief of shortness of breath or wheezing, up to 4 times daily. Up to date on annual influenza, pneumococcal, RSV and Covid 19 vaccines. 2. Restrictive 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 - ICD9: 518.89, 737.43, ICD10: J98.4, M41.9 Moderately severe restriction due to scoliosis. No intervention. Portions of this documentation were copied and pasted from previous office visit notes in order to provide a cohesive continuity of the history. The note has been reviewed and edited and updated as necessary. Shanita Jackson PA-C documented in this encounter [facility] 11-20-2023 Note HNO ID: [id number] Author: SHANITA JAKCSON PA-C Service: ? Author Type: Physician Resource Agent Type: Progress Notes Filed: 11/20/2023 11:00 Note Text: Patient: Vandana Mitchell PCP: Markus Rascon MD CC: follow up HPI: Vandana Mitchell 73 year old female non-smoker with PMH significant for HTN, MGUS, HOCM, restrictive 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, and asthma. Diagnosed clinically with asthma, unable to perform CARL due to her baseline severe restriction and patient unable to perform Jeannette. Last office visit 03/30/[address] Campbell recommended decreasing Symbicort dosing to 80/4.5. However, patient was reluctant to do so. Current maintenance therapy Wixela 250/50 mcg and as needed Albuterol. Today, patient reports variable cough, not every day . Typically non-productive. No wheezing. Exertional dyspnea with walking fast, climbing stairs, and carrying groceries. She is concerned that her inhaled steroid is causing her bone density to be decreased despite being on the Prolia. No issues with ADLs. No fevers, chills, or night sweats. No unintended weight loss. No lower extremity edema. No GERD/heartburn. No recent hospitalizations or ED visits or upper respiratory infections. Rarely uses Albuterol. ASTHMA CONTROL TEST Date: 11/20/2023 In the last 4 weeks, how much of the time did your asthma keep you from getting as much done at work or home that you wanted to do? A little of the time (4) In the last 4 weeks, how often have you had shortness of breath? 3 to 6 times per week (3) In the last 4 weeks, how often did your asthma symptoms (wheezing, coughing, shortness of breath, chest tightness or pain) wake you up at night or earlier than usual? Not at all (5) In the last 4 weeks, how often have you used your rescue inhaler or nebulizer medication (such as Albuterol, Proventil, Ventolin, Maxair, Xoponex, or Primatene Mist)? Not at all (5) In the last 4 weeks, how would you rate your asthma control? Somewhat controlled (3) Total: more than 20 PAST MEDICAL HISTORY Diagnosis Date Arthritis Diastolic dysfunction Grade I Disorder of bone and cartilage, unspecified Diverticulosis 2009 colonoscopy History of transfusion HOCM (hypertrophic obstructive cardiomyopathy) ([facility]) Insomnia, unspecified Melanocytic Nevocellular Nevi pigmented moles of trunk: back mainly 08/02/2011 Mitral valve disorders Monoclonal gammopathy 04/2017 Osteoporosis Other diseases of lung, not elsewhere classified restrictive lung disease Other pulmonary embolism and infarction 07/25/2012 ? had pe with normal d dimer. saw pulmonary. not convinced she did have one. Renal cyst Small airways disease Possible asthma. Patient unable to perform definitive test SVT (supraventricular tachycardia) ([facility]) 01/14/2020 Unspecified essential hypertension Allergies: Amoxicillin Rash Asa [Salicylates] Swelling Comment:lip swelling Diclofenac Shortness of Breath Iodine Shortness of Breath Monistat 1 [Tiocona* Intolerance Comment:Burning dilTIAZem CD (CARDIZEM CD) 180 mg 24 hr capsule Take 1 capsule by mouth once daily. albuterol HFA (VENTOLIN HFA) 90 mcg/actuation inhaler Inhale 2 Puffs as instructed every 4 hours as needed for wheezing/shortness of breath. fluticasone-salmeterol (WIXELA INHUB) 250-50 mcg/dose inhaler Inhale 1 Puff as instructed two times a day. mometasone-formoterol (DULERA) 100-5 mcg/actuation inhaler Inhale 2 Puffs as instructed two times a day. budesonide-formoterol (SYMBICORT) 160-4.5 mcg/actuation inhaler Inhale 2 Puffs as instructed twice daily. calcium citrate (CITRACAL ORAL) Take 2 capsules by mouth two times a day. clindamycin (CLEOCIN T) 1 % gel Apply to affected area once daily. denosumab (PROLIA) 60 mg/mL Inject subcutaneously once every 6 months. melatonin 3 mg tablet Take 3 mg by mouth. qhs acetaminophen 325 mg cap Take by mouth as needed. MULTIVITAMIN ORAL Take 1 tablet by mouth once daily. Social History Tobacco Use Smoking status: Never Smokeless tobacco: Never Tobacco comments: Father smoked in childhood home. Spouse does not smoke. Vaping Use Vaping Use: Never used Substance Use Topics Alcohol use: Yes Comment: Occasionally. Drug use: No Family History Problem Relation Age of Onset Colon Cancer Mother 56 Hypertension Mother Colon Cancer Father Diabetes Father Hypertension Maternal Grandmother PAST SURGICAL HISTORY Procedure Laterality Date BACK SURGERY HX BIOPSY BREAST OPEN INCISIONAL left Bx of breast, incisional COLONOSCOPY FLX DX W/COLLJ SPEC WHEN PFRMD 10/27/2004 Colonoscopy COLONOSCOPY FLX DX W/COLLJ SPEC WHEN PFRMD 02/22/2010 Colonoscopy COLONOSCOPY FLX DX W/COLLJ SPEC WHEN PFRMD 03/19/2015 Colonoscopy CORRECT BUNION,SIMPLE CORRECTION HAMMERTOE EYE SURGERY HX PAST SURGICAL HISTORY OF scoliosis surgery PAST SURGICAL HISTORY OF laser kidney stone TONSILLECT (more content not included)... [facility] 10-23-2023 Telephone encounter Note Patient has been identified by name and date of : Patient MyChart msg for refill(s): Requested Prescriptions Pending Prescriptions Disp Refills dilTIAZem CD (CARDIZEM CD) 180 mg 24 hr capsule 30 capsule 5 Sig: Take 1 capsule by mouth once daily. Date of last office visit in primary care: 09/04/2023 Date of next office visit in primary care: 12/18/2023 Please advise. Thank you. Shwetha Irby RN. [facility] 10-23-2023 Miscellaneous Notes Patient has been identified by name and date of : Patient MyChart msg for refill(s): Requested Prescriptions Pending Prescriptions Disp Refills dilTIAZem CD (CARDIZEM CD) 180 mg 24 hr capsule 30 capsule 5 Sig: Take 1 capsule by mouth once daily. Date of last office visit in primary care: 09/04/2023 Date of next office visit in primary care: 12/18/2023 Please advise. Thank you. Shwetha Irby RN. documented in this encounter [facility] 10-16-2023 Telephone encounter Note Patient was made aware of the results. Patient verbalizes understanding. She will monitor her blood pressures and if she notices any changes, will make sooner appt with PCP. She denies any current chest pain, advised that if having chest pains again to call back in. Pt agreeable. Zarina Sparks Ma [facility] 10-16-2023 Miscellaneous Notes Patient was made aware of the results. Patient verbalizes understanding. She will monitor her blood pressures and if she notices any changes, will make sooner appt with PCP. She denies any current chest pain, advised that if having chest pains again to call back in. Pt agreeable. Zarina Sparks Ma Please let patient know that her stress test showed no areas that were lacking blood flow.... No ischemia. Her ejection fraction was high meaning that her heart is working extra hard against her blood pressure that is too high. We need to keep blood pressure in good control so that her heart can relax between beats. She has a cardiology follow-up but not until June. documented in this encounter [facility] 10-16-2023 Telephone encounter Note Please let patient know that her stress test showed no areas that were lacking blood flow.... No ischemia. Her ejection fraction was high meaning that her heart is working extra hard against her blood pressure that is too high. We need to keep blood pressure in good control so that her heart can relax between beats. She has a cardiology follow-up but not until June. [facility] Work Phone: 10-16-2023 Note HNO ID: [id number] Author: LUIS M HAMEED RN Service: ? Author Type: Registered Nurse Type: Progress Notes Filed: 10/16/2023 10:32 Note Text: RADIOLOGY SERVICE PROGRESS NOTE SERVICE DATE: 10/16/2023 SERVICE TIME: 814 PATIENT IDENTITY VERIFICATION COMPLETED USING TWO (2) METHODS: Patient confirmed name and Date of verbally. ALLERGIES AND MEDICATIONS REVIEWED BY: Luis M Hameed RN PROCEDURE TYPE: NM STRESS: 0.4 mg of Lexiscan was administered IV at 0822 over 10 Seconds by Luis M Hameed RN Reversal agent used:None LOT [id number] EXP 06/05/25 IV SITE: IV palced by nuclear tecnologist POST EXAM PIV STATUS: Discontinued by Workers Compensation Examiner PATIENT DISCHARGED TO: Nuclear Medicine Department for post stress imaging A Diagnostic radioactive procedure has taken place, with no further precautions necessary other than routine body substance precautions. More information regarding radiation safety can be found using this link: [email or web address] [email or web address]-% 20Diagnostic%20Nuclear%20Medicine% 20Procedures.pdf SIGNATURE: Luis M Hameed RN PATIENT NAME:Vandana Mitchell DATE: 10/16/23 TIME: 10:31 AM [facility] 10-16-2023 History of Present illness Narrative RADIOLOGY SERVICE PROGRESS NOTE SERVICE DATE: 10/16/2023 SERVICE TIME: 814 PATIENT IDENTITY VERIFICATION COMPLETED USING TWO (2) METHODS: Patient confirmed name and Date of verbally. ALLERGIES AND MEDICATIONS REVIEWED BY: Luis M Hameed RN PROCEDURE TYPE: NM STRESS: 0.4 mg of Lexiscan was administered IV at 0822 over 10 Seconds by Luis M Hameed RN Reversal agent used:None LOT [id number] 06/05/25 IV SITE: IV palced by nuclear tecnologist POST EXAM PIV STATUS: Discontinued by Workers Compensation Examiner PATIENT DISCHARGED TO: Nuclear Medicine Department for post stress imaging A Diagnostic radioactive procedure has taken place, with no further precautions necessary other than routine body substance precautions. More information regarding radiation safety can be found using this link: [email or web address] [email or web address]%20Nuclear %20Medicine%20Procedures.[email or web address] SIGNATURE: Luis M Hameed RN PATIENT NAME:Vandana Mitchell DATE: 10/16/23 TIME: 10:31 AM documented in this encounter [facility] 10-16-2023 History of Present illness Narrative RADIOLOGY SERVICE PROGRESS NOTE SERVICE DATE: 10/16/2023 SERVICE TIME: 07:07 AM PATIENT IDENTITY VERIFICATION COMPLETED USING TWO (2) STANDARD IDENTIFIERS: Name and Date of confirmed by patient verbally FALL SCREENING: Has the patient had 2 falls in the last year or 1 fall with injury or currently using an Ambulatory Assistive Device (Walker, Cane, Wheelchair, Crutches, etc.)? Yes, Patient High Risk for Falls What interventions were put in place to prevent falls during this visit? Instructed Patient to Call for Help if Needed, Offered Assistance with Transfers/Clothing, Instructed Patient to Remain Seated (Not on Exam Table) Until Exam, Increased Observations by Caregivers, and Escorted to/from Restroom PATIENT GENDER DATA: .female : No ALLERGIES: Reviewed and unchanged MEDICATIONS REVIEWED: No PATIENT RELEVANT IMPLANT DATA REVIEWED: Not Applicable PATIENT PRESENTS WITH AN IMPLANTABLE OR ATTACHED FRINGING MACHINE OPERATOR: n/a CREATININE: Creatinine Date Value Ref Range Status 09/04/2023 0.64 0.58 - 0.96 mg/dL Final 05/09/2023 0.74 0.58 - 0.96 mg/dL Final 09/16/2022 0.57 (L) 0.58 - 0.96 mg/dL Final Estimated Glomerular Filtration Rate Date Value Ref Range Status 09/04/2023 93 >=60 mL/min/1.73m Final Comment: Estimated Glomerular Filtration Rate (eGFR) is calculated using the 2020 CKD-EPI creatinine equation. This equation utilizes serum creatinine, sex, and age as parameters. The creatinine assay has traceable calibration to isotope dilution-mass spectrometry. Refer to KDIGO guidelines for clinical interpretation. In patients with unstable renal function, e.g. those with acute kidney injury, the eGFR may not accurately reflect actual GFR. eGFR- Date Value Ref Range Status 05/05/2021 >60 Final P.O.C.T. RESULTS: POC done: Yes, See Lab Tab October 16, [address] PERFORMED: No IV SITE: Ambulatory: A peripheral IV was started in the Left antecubital site with a Angio cath: 24 gauge. POST EXAM PIV STATUS: Discontinued PROCEDURE TYPE: NM Stress: 13.6 mCi [id number]-Vizuwwx was administered IV for Rest Imaging at 07:20 by Stephany Katz. 34.7 mCi Ha76f-Diiznsk was administered IV for Stress Imaging at 08:22 by Stephany Katz. ADMINISTRATION TIME: PATIENT DISCHARGED TO: Ambulatory patient, left [place] department area. A Diagnostic radioactive procedure has taken place, with no further precautions necessary other than routine body substance precautions. More information regarding radiation safety can be found using this link: [email or web address]%20Nuclear %20Medicine%20Procedures.pdf SIGNATURE: RT Olivares (R) PATIENT NAME: Vandana Mitchell DATE: October 16, 2023 TIME: 10:00 AM PAGER/CONTACT #: documented in this encounter [facility] 10-16-2023 Note HNO ID: [id number] Author: STEPHANY KATZ RT (R) Service: Nuclear Medicine Author Type: Technologist Type: Progress Notes Filed: 10/16/2023 14:13 Note Text: RADIOLOGY SERVICE PROGRESS NOTE SERVICE DATE: 10/16/2023 SERVICE TIME: 07:07 AM PATIENT IDENTITY VERIFICATION COMPLETED USING TWO (2) STANDARD IDENTIFIERS: Name and Date of confirmed by patient verbally FALL SCREENING: Has the patient had 2 falls in the last year or 1 fall with injury or currently using an Ambulatory Assistive Device (Walker, Cane, Wheelchair, Crutches, etc.)? Yes, Patient High Risk for Falls What interventions were put in place to prevent falls during this visit? Instructed Patient to Call for Help if Needed, Offered Assistance with Transfers/Clothing, Instructed Patient to Remain Seated (Not on Exam Table) Until Exam, Increased Observations by Caregivers, and Escorted to/from Restroom PATIENT GENDER DATA: .female : No ALLERGIES: Reviewed and unchanged MEDICATIONS REVIEWED: No PATIENT RELEVANT IMPLANT DATA REVIEWED: Not Applicable PATIENT PRESENTS WITH AN IMPLANTABLE OR ATTACHED FRINGING MACHINE OPERATOR: n/a CREATININE: Creatinine Date Value Ref Range Status 09/04/2023 0.64 0.58 - 0.96 mg/dL Final 05/09/2023 0.74 0.58 - 0.96 mg/dL Final 09/16/2022 0.57 (L) 0.58 - 0.96 mg/dL Final Estimated Glomerular Filtration Rate Date Value Ref Range Status 09/04/2023 93 >=60 mL/min/1.73m? Final Comment: Estimated Glomerular Filtration Rate (eGFR) is calculated using the 2020 CKD-EPI creatinine equation. This equation utilizes serum creatinine, sex, and age as parameters. The creatinine assay has traceable calibration to isotope dilution-mass spectrometry. Refer to KDIGO guidelines for clinical interpretation. In patients with unstable renal function, e.g. those with acute kidney injury, the eGFR may not accurately reflect actual GFR. eGFR- Date Value Ref Range Status 05/05/2021 >60 Final P.O.C.T. RESULTS: POC done: Yes, See Lab Tab October 16, [address] PERFORMED: No IV SITE: Ambulatory: A peripheral IV was started in the Left antecubital site with a Angio cath: 24 gauge. POST EXAM PIV STATUS: Discontinued PROCEDURE TYPE: NM Stress: 13.6 mCi Kn60x-Soyxhsi was administered IV for Rest Imaging at 07:20 by Stephany Katz. 34.7 mCi Jh06u-Hnitzsm was administered IV for Stress Imaging at 08:22 by Stephany Katz. ADMINISTRATION TIME: PATIENT DISCHARGED TO: Ambulatory patient, left [place] department area. A Diagnostic radioactive procedure has taken place, with no further precautions necessary other than routine body substance precautions. More information regarding radiation safety can be found using this link: [email or web address] 20Diagnostic%20Nuclear%20Medicine% 20Procedures.pdf SIGNATURE: RT Elise(R) PATIENT NAME: Vandana Mitchell DATE: October 16, 2023 TIME: 10:00 AM PAGER/CONTACT #: [facility] 10-11-2023 Telephone encounter Note ROSALIE: 03/30/23 [facility] 10-11-2023 Miscellaneous Notes ROSALIE: 03/30/23 Patient has been identified by name and date of : Yes, Provider ADRIAN Patient phones for refill(s): Requested Prescriptions Pending Prescriptions Disp Refills albuterol HFA (VENTOLIN HFA) 90 mcg/actuation inhaler 1 Each 3 Sig: Inhale 2 Puffs as instructed every 4 hours as needed for wheezing/shortness of breath. Date of last office visit in primary care: 03/30/2023 Date of next office visit in primary care: 11/20/2023 PREVIOUS INHALER 08/27/23 PATIENT IS REQUESTING TO HAVE NEW PRESCRIPTION SENT IN TIME FOR IT TO BE PROCESSED PRIOR TO HER UPCOMING STRESS TEST ON 10/16/23 Please advise. Thank you. Cherelle Lawrence. documented in this encounter [facility] 10-11-2023 Telephone encounter Note Patient has been identified by name and date of : Yes, Provider ADRIAN Patient phones for refill(s): Requested Prescriptions Pending Prescriptions Disp Refills albuterol HFA (VENTOLIN HFA) 90 mcg/actuation inhaler 1 Each 3 Sig: Inhale 2 Puffs as instructed every 4 hours as needed for wheezing/shortness of breath. Date of last office visit in primary care: 03/30/2023 Date of next office visit in primary care: 11/20/2023 PREVIOUS INHALER 08/27/23 PATIENT IS REQUESTING TO HAVE NEW PRESCRIPTION SENT IN TIME FOR IT TO BE PROCESSED PRIOR TO HER UPCOMING STRESS TEST ON 10/16/23 Please advise. Thank you. Cherelle Lawrence. [facility] 09-07-2023 Miscellaneous Notes Patient informed and verbalized understanding. Vianney Steen MA Please let patient know that her hand stitcher sent me back a message stating that he agreed with the stress test. Her ionized calcium was a tiny bit over normal. That is likely because of her calcium replacement. Her parathyroid hormone, vitamin D level, and thyroid functions were normal. No other changes are needed. documented in this encounter [facility] 09-05-[address] Means please see below econsult request received from Rylee Hernandez APRN.CNS, APRN.CNS to P HVI RESOURCE NURSE ANA 09/04/23 12:26 PM If the patient has an established Pot Puller, please communicate patient concern(s) directly to his/her established Specialist for follow up recommendations. Clinical Question I am requesting a Cardiology E-Consult for my 73 year old female patient, Vandana Mitchell. My clinical question: pt. Has known hypertrophic CM, havig episodes of chest heaviness with activity and stress Please assess and respond with your recommendations regarding review of approval for stress test with hypertrophic CM Vandana Mitchell has been informed of this E-Consult request to the [facility]. Provided by: Rylee Duarte APRN.CNS Location: [address] [address] Dept: [phone] A Pot Puller will respond to your E-Consult request in approximately 1 business day. For responses not requiring a face to face consult, It is the responsibility of the requesting provider to communicate HVI opinions back to the patient. documented in this encounter [facility] 09-05-2023 Miscellaneous Notes Patient was made aware of the results. Patient verbalizes understanding. She will stop by lab today or tomorrow. Zarina Sparks Ma Please let patient know that her blood counts, inflammatory markers, and CMP were normal except her protein levels are little bit low and her calcium level is high. She has been taking Citracal and Prolia. That is likely the reason. However, I need for her to check a parathyroid hormone, her thyroid hormones, and an ionized calcium. Orders have been placed. documented in this encounter [facility] 09-04-2023 Miscellaneous Notes Addended by: RYLEE DUARTE on: 09/04/2023 12:39 PM Modules accepted: Orders Addended by: RYLEE DUARTE on: 09/04/2023 12:27 PM Modules accepted: Orders documented in this encounter [facility] 09-04-2023 Instructions Rylee Duarte APRN.CNS - 09/04/2023 11:29 AM EDT 1) Check labs 2) Check ECG 3) E-consult sent to Dr. Nolasco 4) Stress test ordered 5) Follow up with Dr. Rascon in December, labs in November documented in this encounter [facility] 09-04-2023 Note HNO ID: [id number] Author: RYLEE DUARTE APRN.CNS Service: ? Author Type: Clinical Nurse Specialist Type: Progress Notes Filed: 09/04/2023 12:07 Note Text: This is a 73 year old female who presents today with: Patient presents with: Chest Pain: Chest pain, one episode yesterday, lasting 30 minutes to 1 hour, described as a tightness. Fatigue: Weak feeling when active starting then end of last week. HISTORY OF PRESENT ILLNESS: Vandana Mitchell is a 73 year old female. Patient presents with: Chest Pain: Chest pain, one episode yesterday, lasting 30 minutes to 1 hour, described as a tightness. Fatigue: Weak feeling when active starting then end of last week. Chest pain yesterday. Was cooking Easter dinner for herself and . Cooking does stress her anymore. Went upstairs and felt very tired. Lasted 30 -60 min. Mid-sternal chest heaviness, maybe tight. No radiation of pain. Some aching in back in the evening- not new. No SOB. No diaphoresis. Kept working during the chest pain- sat down and eventually just went away Never smoked. Known Hypertrophic CM No familiy Hx of ME PAST MEDICAL HISTORY: PAST MEDICAL HISTORY Diagnosis Date Arthritis Diastolic dysfunction Grade I Disorder of bone and cartilage, unspecified Diverticulosis 2009 colonoscopy History of transfusion HOCM (hypertrophic obstructive cardiomyopathy) (HCC) Insomnia, unspecified Melanocytic Nevocellular Nevi pigmented moles of trunk: back mainly 08/02/2011 Mitral valve disorders Monoclonal gammopathy 04/2017 Osteoporosis Other diseases of lung, not elsewhere classified restrictive lung disease Other pulmonary embolism and infarction 07/25/2012 ? had pe with normal d dimer. saw pulmonary. not convinced she did have one. Renal cyst Small airways disease Possible asthma. Patient unable to perform definitive test SVT (supraventricular tachycardia) ([facility]) 01/14/2020 Unspecified essential hypertension PAST SURGICAL HISTORY Procedure Laterality Date BACK SURGERY HX BIOPSY BREAST OPEN INCISIONAL left Bx of breast, incisional COLONOSCOPY FLX DX W/COLLJ SPEC WHEN PFRMD 10/27/2004 Colonoscopy COLONOSCOPY FLX DX W/COLLJ SPEC WHEN PFRMD 02/22/2010 Colonoscopy COLONOSCOPY FLX DX W/COLLJ SPEC WHEN PFRMD 03/19/2015 Colonoscopy CORRECT BUNION,SIMPLE CORRECTION [facility] EYE SURGERY HX PAST SURGICAL HISTORY OF scoliosis surgery PAST SURGICAL HISTORY OF laser kidney stone TONSILLECTOMY HX TONSILLECTOMY PRIMARY/SECONDARY Tonsillectomy ALLERGIES Amoxicillin, Asa [Salicylates], Diclofenac, Iodine, and Monistat 1 [Tioconazole] MEDICATIONS Current Outpatient Medications Medication Sig fluticasone-salmeterol (WIXELA INHUB) 250-50 mcg/dose inhaler Inhale 1 Puff as instructed two times a day. dilTIAZem CD (CARDIZEM CD) 180 mg 24 hr capsule Take 1 capsule by mouth once daily. calcium citrate (CITRACAL ORAL) Take 2 capsules by mouth two times a day. clindamycin (CLEOCIN T) 1 % gel Apply to affected area once daily. denosumab (PROLIA) 60 mg/mL Inject subcutaneously once every 6 months. albuterol HFA (VENTOLIN HFA) 90 mcg/actuation inhaler Inhale 2 Puffs as instructed every 4 hours as needed for wheezing/shortness of breath. acetaminophen 325 mg cap Take by mouth as needed. MULTIVITAMIN ORAL Take 1 tablet by mouth once daily. mometasone-formoterol (DULERA) 100-5 mcg/actuation inhaler Inhale 2 Puffs as instructed two times a day. budesonide-formoterol (SYMBICORT) 160-4.5 mcg/actuation inhaler Inhale 2 Puffs as instructed twice daily. melatonin 3 mg tablet Take 3 mg by mouth. [facility] No current facility-administered medications for this visit. FAMILY HISTORY Problem Relation Age of Onset Colon Cancer Mother 56 Hypertension Mother Colon Cancer Father Diabetes Father Hypertension Maternal Grandmother Social History Tobacco Use Smoking status: Never Smokeless tobacco: Never Tobacco comments: Father smoked in childhood home. Spouse does not smoke. Vaping Use Vaping Use: Never used Substance Use Topics Alcohol use: Yes Comment: Occasionally. Drug use: No EXAM: BP 158/90 Pulse 82 Temp 36.8 ?C (98.2 ?F) (Left Tympanic) Wt 51.7 kg (114 lb) SpO2 95% BMI 20.65 kg/m? PHYSICAL EXAM: General Appearance: Well appearing, alert, in no acute distress, well-hydrated, well nourished.. Skin: Skin color, texture, turgor normal, no suspicious rashes or lesions. Head: Normocephalic, no masses, lesions, tenderness or abnormalities. Lungs: Lungs clear to auscultation. No wheezing, rhonchi, rales.. Heart: RRR without murmur, gallop, or rubs. No ectopy. Extremities: No deformities, edema, skin discoloration, clubbing or cyanosis. Good capillary refill. . LABS: pending ASSESSMENT/PLAN: 1. Screening for diabetes mellitus - ICD9: V77.1, ICD10: Z13.1 (primary diagnosis) Not current - HGB A1C 2. Age-related osteoporosis without current patholo (more content not included)... [facility] 09-04-2023 History of Present illness Narrative This is a 73 year old female who presents today with: Patient presents with: Chest Pain: Chest pain, one episode yesterday, lasting 30 minutes to 1 hour, described as a tightness. Fatigue: Weak feeling when active starting then end of last week. HISTORY OF PRESENT ILLNESS: Vandana Mitchell is a 73 year old female. Patient presents with: Chest Pain: Chest pain, one episode yesterday, lasting 30 minutes to 1 hour, described as a tightness. Fatigue: Weak feeling when active starting then end of last week. Chest pain yesterday. Was cooking Easter dinner for herself and . Cooking does stress her anymore. Went upstairs and felt very tired. Lasted 30 -60 min. Mid-sternal chest heaviness, maybe tight. No radiation of pain. Some aching in back in the evening- not new. No SOB. No diaphoresis. Kept working during the chest pain- sat down and eventually just went away Never smoked. Known Hypertrophic CM No familiy Hx of ME PAST MEDICAL HISTORY: PAST MEDICAL HISTORY Diagnosis Date Arthritis Diastolic dysfunction Grade I Disorder of bone and cartilage, unspecified Diverticulosis 2009 colonoscopy History of transfusion HOCM (hypertrophic obstructive cardiomyopathy) ([facility]) Insomnia, unspecified Melanocytic Nevocellular Nevi pigmented moles of trunk: back mainly 08/02/2011 Mitral valve disorders Monoclonal gammopathy 04/2017 Osteoporosis Other diseases of lung, not elsewhere classified restrictive lung disease Other pulmonary embolism and infarction 07/25/2012 ? had pe with normal d dimer. saw pulmonary. not convinced she did have one. Renal cyst Small airways disease Possible asthma. Patient unable to perform definitive test SVT (supraventricular tachycardia) ([facility]) 01/14/2020 Unspecified essential hypertension PAST SURGICAL HISTORY Procedure Laterality Date BACK SURGERY HX BIOPSY BREAST OPEN INCISIONAL left Bx of breast, incisional COLONOSCOPY FLX DX W/COLLJ SPEC WHEN PFRMD 10/27/2004 Colonoscopy COLONOSCOPY FLX DX W/COLLJ SPEC WHEN PFRMD 02/22/2010 Colonoscopy COLONOSCOPY FLX DX W/COLLJ SPEC WHEN PFRMD 03/19/2015 Colonoscopy CORRECT BUNION,SIMPLE CORRECTION [facility] EYE SURGERY HX PAST SURGICAL HISTORY OF scoliosis surgery PAST SURGICAL HISTORY OF laser kidney stone TONSILLECTOMY HX TONSILLECTOMY PRIMARY/SECONDARY <AGE 12 Tonsillectomy ALLERGIES Amoxicillin, Asa [Salicylates], Diclofenac, Iodine, and Monistat 1 [Tioconazole] MEDICATIONS Current Outpatient Medications Medication Sig fluticasone-salmeterol (WIXELA INHUB) 250-50 mcg/dose inhaler Inhale 1 Puff as instructed two times a day. dilTIAZem CD (CARDIZEM CD) 180 mg 24 hr capsule Take 1 capsule by mouth once daily. calcium citrate (CITRACAL ORAL) Take 2 capsules by mouth two times a day. clindamycin (CLEOCIN T) 1 % gel Apply to affected area once daily. denosumab (PROLIA) 60 mg/mL Inject subcutaneously once every 6 months. albuterol HFA (VENTOLIN HFA) 90 mcg/actuation inhaler Inhale 2 Puffs as instructed every 4 hours as needed for wheezing/shortness of breath. acetaminophen 325 mg cap Take by mouth as needed. MULTIVITAMIN ORAL Take 1 tablet by mouth once daily. mometasone-formoterol (DULERA) 100-5 mcg/actuation inhaler Inhale 2 Puffs as instructed two times a day. budesonide-formoterol (SYMBICORT) 160-4.5 mcg/actuation inhaler Inhale 2 Puffs as instructed twice daily. melatonin 3 mg tablet Take 3 mg by mouth. qhs No current facility-administered medications for this visit. FAMILY HISTORY Problem Relation Age of Onset Colon Cancer Mother 56 Hypertension Mother Colon Cancer Father Diabetes Father Hypertension Maternal Grandmother Social History Tobacco Use Smoking status: Never Smokeless tobacco: Never Tobacco comments: Father smoked in childhood home. Spouse does not smoke. Vaping Use Vaping Use: Never used Substance Use Topics Alcohol use: Yes Comment: Occasionally. Drug use: No EXAM: BP 158/90 Pulse 82 Temp 36.8 C (98.2 F) (Left Tympanic) Wt 51.7 kg (114 lb) SpO2 95% BMI 20.65 kg/m PHYSICAL EXAM: General Appearance: Well appearing, alert, in no acute distress, well-hydrated, well nourished.. Skin: Skin color, texture, turgor normal, no suspicious rashes or lesions. Head: Normocephalic, no masses, lesions, tenderness or abnormalities. Lungs: Lungs clear to auscultation. No wheezing, rhonchi, rales.. Heart: RRR without murmur, gallop, or rubs. No ectopy. Extremities: No deformities, edema, skin discoloration, clubbing or cyanosis. Good capillary refill. . LABS: pending ASSESSMENT/PLAN: 1. Screening for diabetes mellitus - ICD9: V77.1, ICD10: Z13.1 (primary diagnosis) Not current - HGB A1C 2. Age-related osteoporosis without current pathological fracture - ICD9: 733.01, ICD10: M81.0 - Reviewed the need for Calcium and Vitamin D supplements and weight bearing exercise as tolerated - VITAMIN D 25 HYDROXY 3. Other disorders of glucose transport (HCC) - ICD9: 271.8, ICD10: E74.818 Family Hx of DM - HGB A1C 4. Chest pain, unspecified type - ICD9: 786.50, ICD10: R07.9 Chest pain of unclear etiology, patient with significant risk factor(s) of hypertrophic CM E-consult Dr. Nolasco, order stress test, check ECG and enzymnes - ECG COMPLETE- reviewed, NSR with poor R wave progression - CK CREATINE KINASE - COMP METABOLIC PANEL - CBC + DIFF - REGADENOSON 0.4 MG/5 ML INTRAVENOUS SYRINGE - AMINOPHYLLINE 250 MG/10 ML INTRAVENOUS SOLUTION - METOPROLOL TARTRATE 5 MG/5 ML INTRAVENOUS SOLUTION - E-CONSULT HVI CARDIOLOGY 5. Stable angina pectoris (HCC) - ICD9: 413.9, ICD10: I20.89 Stable - ECG COMPLETE - NM CARDIAC PERF STRESS/PHARM - REGADENOSON 0.4 MG/5 ML INTRAVENOUS SYRINGE - AMINOPHYLLINE 250 MG/10 ML INTRAVENOUS SOLUTION - METOPROLOL TARTRATE 5 MG/5 ML INTRAVENOUS SOLUTION Discussed treatment plan and patient voices understanding. Patient's questions answered appropriately. Medications and potential side effects were discussed and patient voices understanding. Return to the office as scheduled or as needed for worsening/no improvement. Rylee Duarte APRN.CNS The patient indicates understanding of these issues and agrees with the plan. documented in this encounter [facility] 08-29-2023 Miscellaneous Notes Patient phones to reports her insurance formulary covers Wixela inhub AER 250/50. She is requesting a change if this is acceptable replacement for Dulera. Her pharmacy is [facility] in [place]. Patient requesting to be notified by phone if the change is made. Shanita Alvarado MA documented in this encounter [facility] 07-18-2023 Miscellaneous Notes CD READY FOR [employer] SUPERVISOR AT [facility] Pt is aware Patient is requesting 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 03/07/23 documented in this encounter [facility] 07-10-2023 Note HNO ID: [id number] Author: LUIS M HAMEED RN Service: ? Author Type: Registered Nurse Type: Progress Notes Filed: 07/11/2023 08:05 Note Text: Vandana Mitchell is here for an appointment today with Echocardiogram and experienced a fall during her clinical visit. The patient was found on the floor. Location of fall: echo room Brief Factual Description: Patient had an unwitnessed fall after tripping on the treadmill in the echo room. Patient states that she hit her head and skin tear noted to left elbow. Contributing Factors: none reported Did patient hit head or neck? Yes Is the patient having any pain? Yes: Location head Pain Scale: 2 on a scale from 0-10 Is patient alert? YES Injury: Skin Tear to left elbow INTERVENTIONS: Immediate Actions Taken: Ice applied to head Dressings applied to skin tear Patient refused transport to ED for further evaluation. Additional Prevention Measures:offered assistance with transfers/clothing Luis M Hameed RN [facility] 07-10-2023 History of Present illness Narrative Vandana Mitchell is here for an appointment today with Echocardiogram and experienced a fall during her clinical visit. The patient was found on the floor. Location of fall: echo room Brief Factual Description: Patient had an unwitnessed fall after tripping on the treadmill in the echo room. Patient states that she hit her head and skin tear noted to left elbow. Contributing Factors: none reported Did patient hit head or neck? Yes Is the patient having any pain? Yes: Location head Pain Scale: 2 on a scale from 0-10 Is patient alert? YES Injury: Skin Tear to left elbow INTERVENTIONS: Immediate Actions Taken: Ice applied to head Dressings applied to skin tear Patient refused transport to ED for further evaluation. Additional Prevention Measures:offered assistance with transfers/clothing Luis M Hameed RN documented in this encounter [facility] 07-04-2023 Note HNO ID: [id number] Author: DANNY ONEILL, DO Service: ? Author Type: Physician Type: Progress Notes Filed: 07/04/2023 10:34 Note Text: Diagnosis: 1) IgG lambda MGUS. HPI: Patient is a 73-year-old female who has past medical history significant for osteoporosis, possible renal lithiasis, HOCM and HTN. Over the 3 years prior to referral here, she had rather significant blistering and erythema with any type of insect bite. She also had two localized rashes which had cleared. Was therefore undergoing dermatologic evaluation for these issues and on screening blood work was found to have monoclonal gammopathy with an M spike concentration of 0.42 g/dL. Immunofixation revealed IgG lambda monoclonal protein. Urine electrophoresis was negative. CBC was unremarkable. The white count was 6850 with a normal differential. Hemoglobin 14 g/dL. Platelet count 291,000. She had right shoulder and b/l hip pain that had been worked up. She was undergoing physical therapy for her shoulder. Plain films showed degenerative changes at the AC joint. No evidence of lytic lesions in the visualized bone structure in that area. She was also under the care of orthopedic surgery center for the hip pain. She has a history of scoliosis and had Lozada rods placed in 1963. Since then, she's been told one of the pins has worked loose. She also had bone graft donor site from the left pelvis for one of the vertebral bones. Bone survey on 03/30/2017 revealed no evidence of lesion or other pathologic bone lesion. On q 6 month Prolia. Bone density 03/2023: LEFT HIP: The bone mineral density of the total region of the hip is 0.538 grams per square centimeter which yields a T-score of -3.3. There has been a 9.2% statistically significant interval decrease in bone mineral density. LEFT FEMORAL NECK: The bone mineral density of the femoral neck is 0.485 grams per square centimeter which yields a T-score of -3.3. There has been an 8.6% statistically significant interval decrease in bone mineral density. Presents for ongoing hematologic management. Interim history: Still has occasional numbness under left eye. No other symptoms of peripheral neuropathy. Occasional shoulder pain (both, but not at same time). Pain left hip (buttocks) when lying for bone survey self resolved. PMH, medications and allergies personally reviewed by me today. Any changes documented in appropriate section. ROS: Constitutional: No recent or recurrent episodes of fever. No drenching night sweats. Normal appetite. Normal energy. Neuro: Denies LARA, vertigo, dizziness and imbalance. HEENT: No recent change in voice, vision or hearing. Resp: Denies cough, wheeze and hemoptysis. Denies shortness of breath at rest. Has chronic dyspnea with exertion secondary to restrictive physiology from scoliosis. CVS: Denies exertional chest pain, PND, orthopnea and LE edema. GI: Denies dysgeusia. Denies symptoms of stomatitis. Denies dysphagia and odynophagia. Denies reflux, n/v, change in bowel habits and abdominal pain. : Denies dysuria or gross hematuria. No symptoms of bladder outlet obstruction. Endo: Denies hot flashes. Denies polyuria and polydipsia. Denies heat and cold intolerance. Musculoskeletal: See above. Derm: Denies rash. Denies jaundice and diffuse pruritis. Heme: Denies unusual bleeding and unexplained bruising. Psych: Normal mood. PHYSICAL EXAM: Vitals: Blood pressure 163/84, pulse 83, temperature 37.2 ?C (98.9 ?F), weight 51.9 kg (114 lb 8 oz), SpO2 95%. Well-appearing and in no acute distress. EYES: Sclerae are anicteric bilaterally. NECK: Supple. LYMPHATIC: There is no palpable cervical, supraclavicular adenopathy. RESPIRATORY: Inspiratory breath sounds are of normal left and diminished on right. CARDIOVASCULAR: Rhythm is regular. ABDOMEN: The abdomen is nondistended. No organomegaly. No tenderness. Extremities: No swelling or edema. SKIN: No jaundice or rash. No petechiae. 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 No focal motor weakness. MUSCULOSKELETAL: Kyphoscoliosis. LABS: Component Latest Ref Rng AND Units 06/14/2023 WBC 3.70 - 11.00 k/uL 7.37 RBC 3.90 - 5.20 m/uL 4.36 Hemoglobin 11.5 - 15.5 g/dL 11.8 Hematocrit 36.0 - 46.0 % 35.9 (L) MCV 80.0 - 100.0 fL 82.3 MCH 26.0 - 34.0 pg 27.1 MCHC 30.5 - 36.0 g/dL 32.9 RDW-CV 11.5 - 15.0 % 13.8 Platelet Count 150 - 400 k/uL 254 MPV 9.0 - 12.7 fL 10.4 Neut% % 76.0 Abs Neut (ANC) 1.45 - 7.50 k/uL 5.60 Lymph% % 14.2 Abs Lymph 1.00 - 4.00 k/uL 1.05 [place]% % 7.3 Abs [place] <0.87 k/uL 0.54 Eosin% % 0.8 Abs Eosin <0.46 k/uL 0.06 Baso% % 1.4 Abs Baso <0.11 k/uL 0.10 Immature Gran % % 0.3 IMMATURE GRANS (ABS) <0.10 k/uL <0.03 NRBC /100 WBC 0.0 Absolute nRBC <0.01 k/uL <0.01 DTYPE Auto IMAGING: Whole-body bone survey 05/09/2024: Skull: No lytic lesion. Paranasal sinuses appear clear. Cervical, thoracic and lumbar spine: No ac (more content not included)... [facility] 06-13-2023 Note HNO ID: [id number] Author: MARKUS RASCON MD Service: ? Author Type: Physician Type: Progress Notes Filed: 06/13/2023 17:05 Note Text: Patient presents with: 6 Month Exam HPI: Patient presents today for office visit for 6 month follow up. Scheduled tomorrow [facility] bone marrow biopsy. Saw Dr. Nolasco, Cardiology 06/12/23. History of hypertrophic cardiomyopathy. Maintained on a Cardizem. Asymptomatic. HTN: Monitors BP at home Denies new or worsening chest pain and shortness of breath. Denies headaches and dizziness No palpitations No syncope No edema Follows with Dr. Oneill. Hem/Onc XR bone from 05/09/23 showed no acute fracture or destructive osseous lesion. DXA scan from March showed significant losses both in left hip and left femoral neck since last scan. Right hip was scanned although not able to be analyzed per radiology dept. Sometimes this happens when bone mass is too low or if possibly surgery was performed on that side. These things can make it difficult to read. Is on prolia. Sees juvenal Bangura. Followed by Pulmonary. Asthma is well controlled. Pulmonary recommends continued use of her Symbicort but could decrease the dosing to 80/4.5. Patient is reluctant to do so since she seems to be doing well from a respiratory standpoint on current regimen. Very rarely having to use rescue inhaler. Memory is stable. Last time she was here she mentioned having some difficulty trying to write letters. She would really have to think about what she was writing. Denies any issues with this today. Refers to it being not so much her memory but being anxious. She gets overwhelmed easily when trying to multitask. Has some stress over the holidays. No tremors or falls. No headache, numbness or weakness. Has had carotids in the last year. MEDICATIONS: Current Outpatient Medications Medication Sig dilTIAZem CD (CARDIZEM CD) 180 mg 24 hr capsule Take 1 capsule by mouth once daily. mometasone-formoterol (DULERA) 100-5 mcg/actuation inhaler Inhale 2 Puffs as instructed two times a day. budesonide-formoterol (SYMBICORT) 160-4.5 mcg/actuation inhaler Inhale 2 Puffs as instructed twice daily. calcium citrate (CITRACAL ORAL) Take 2 capsules by mouth two times a day. clindamycin (CLEOCIN T) 1 % gel Apply to affected area once daily. denosumab (PROLIA) 60 mg/mL Inject subcutaneously once every 6 months. albuterol HFA (VENTOLIN HFA) 90 mcg/actuation inhaler Inhale 2 Puffs as instructed every 4 hours as needed for wheezing/shortness of breath. melatonin 3 mg tablet Take 3 mg by mouth. qhs acetaminophen 325 mg cap Take by mouth as needed. MULTIVITAMIN ORAL Take 1 tablet by mouth once daily. No current facility-administered medications for this visit. ALLERGIES: ALLERGIES Allergen Reactions Amoxicillin Rash Asa [Salicylates] Swelling lip swelling Diclofenac Shortness of Breath Iodine Shortness of Breath Monistat 1 [Tiocona* Intolerance Burning PAST MEDICAL HISTORY Diagnosis Date Arthritis Diastolic dysfunction Grade I Disorder of bone and cartilage, unspecified Diverticulosis 2009 colonoscopy History of transfusion HOCM (hypertrophic obstructive cardiomyopathy) (HCC) Insomnia, unspecified Melanocytic Nevocellular Nevi pigmented moles of trunk: back mainly 08/02/2011 Mitral valve disorders Monoclonal gammopathy 04/2017 Osteoporosis Other diseases of lung, not elsewhere classified restrictive lung disease Other pulmonary embolism and infarction 07/25/2012 ? had pe with normal d dimer. saw pulmonary. not convinced she did have one. Renal cyst Small airways disease Possible asthma. Patient unable to perform definitive test SVT (supraventricular tachycardia) 01/14/2020 Unspecified essential hypertension PAST SURGICAL HISTORY Procedure Laterality Date BACK SURGERY HX BIOPSY BREAST OPEN INCISIONAL left Bx of breast, incisional COLONOSCOPY FLX DX W/COLLJ SPEC WHEN PFRMD 10/27/2004 Colonoscopy COLONOSCOPY FLX DX W/COLLJ SPEC WHEN PFRMD 02/22/2010 Colonoscopy COLONOSCOPY FLX DX W/COLLJ SPEC WHEN PFRMD 03/19/2015 Colonoscopy CORRECT BUNION,SIMPLE CORRECTION HAMMERTOE EYE SURGERY HX PAST SURGICAL HISTORY OF scoliosis surgery PAST SURGICAL HISTORY OF laser kidney stone TONSILLECTOMY HX TONSILLECTOMY PRIMARY/SECONDARY Tonsillectomy FAMILY HISTORY Problem Relation Age of Onset Colon Cancer Mother 56 Hypertension Mother Colon Cancer Father Diabetes Father Hypertension Maternal Grandmother Social History Tobacco Use Smoking status: Never Smokeless tobacco: Never Tobacco comments: Father smoked in childhood home. Spouse does not smoke. Vaping Use Vaping Use: Never used Substance Use Topics Alcohol use: Yes Comment: Occasionally. Drug use: No Reviewed current medications, allergies, past medical history, surgical history, family history and social history today. REVIEW OF SYSTEMS (more content not included)... [facility] 06-12-2023 Note HNO ID: [id number] Author: CLARY NOLASCO MD Service: ? Author Type: Physician Type: Progress Notes Filed: 06/12/2023 14:26 Note Text: Clary Nolasco MD Interventional Cardiology [phone] [id number] Chief Complaint Patient presents with: yearly check HISTORY OF PRESENT ILLNESS: Ms. Mitchell is a 73 year old female seen in my office for follow-up prior history of hypertrophic cardiomyopathy maintained on a Cardizem asymptomatic from the cardiac point of view blood pressure is well-controlled No signs or symptoms of congestive heart failure Cardiac Risk Factors age (male over 45, female over 55), hypertension, family history of CAD PAST MEDICAL HISTORY Diagnosis Date Arthritis Diastolic dysfunction Grade I Disorder of bone and cartilage, unspecified Diverticulosis 2009 colonoscopy History of transfusion HOCM (hypertrophic obstructive cardiomyopathy) (HCC) Insomnia, unspecified Melanocytic Nevocellular Nevi pigmented moles of trunk: back mainly 08/02/2011 Mitral valve disorders Monoclonal gammopathy 04/2017 Osteoporosis Other diseases of lung, not elsewhere classified restrictive lung disease Other pulmonary embolism and infarction 07/25/2012 ? had pe with normal d dimer. saw pulmonary. not convinced she did have one. Renal cyst Small airways disease Possible asthma. Patient unable to perform definitive test SVT (supraventricular tachycardia) 01/14/2020 Unspecified essential hypertension PAST SURGICAL HISTORY Procedure Laterality Date BACK SURGERY HX BIOPSY BREAST OPEN INCISIONAL left Bx of breast, incisional COLONOSCOPY FLX DX W/COLLJ SPEC WHEN PFRMD 10/27/2004 Colonoscopy COLONOSCOPY FLX DX W/COLLJ SPEC WHEN PFRMD 02/22/2010 Colonoscopy COLONOSCOPY FLX DX W/COLLJ SPEC WHEN PFRMD 03/19/2015 Colonoscopy CORRECT BUNION,SIMPLE CORRECTION HAMMERTOE EYE SURGERY HX PAST SURGICAL HISTORY OF scoliosis surgery PAST SURGICAL HISTORY OF laser kidney stone TONSILLECTOMY HX TONSILLECTOMY PRIMARY/SECONDARY Tonsillectomy FAMILY HISTORY Problem Relation Age of Onset Colon Cancer Mother 56 Hypertension Mother Colon Cancer Father Diabetes Father Hypertension Maternal Grandmother Social History Tobacco Use Smoking status: Never Smokeless tobacco: Never Tobacco comments: Father smoked in childhood home. Spouse does not smoke. Vaping Use Vaping Use: Never used Substance Use Topics Alcohol use: Yes Comment: Occasionally. Drug use: No ALLERGIES Allergen Reactions Amoxicillin Rash Asa [Salicylates] Swelling lip swelling Diclofenac Shortness of Breath Iodine Shortness of Breath Monistat 1 [Tiocona* Intolerance Burning Medications: Current Outpatient Medications Medication Sig Dispense Refill dilTIAZem CD (CARDIZEM CD) 180 mg 24 hr capsule Take 1 capsule by mouth once daily. 30 capsule 5 budesonide-formoterol (SYMBICORT) 160-4.5 mcg/actuation inhaler Inhale 2 Puffs as instructed twice daily. 10.2 g 5 calcium citrate (CITRACAL ORAL) Take 2 capsules by mouth two times a day. clindamycin (CLEOCIN T) 1 % gel Apply to affected area once daily. 60 g 2 denosumab (PROLIA) 60 mg/mL Inject subcutaneously once every 6 months. albuterol HFA (VENTOLIN HFA) 90 mcg/actuation inhaler Inhale 2 Puffs as instructed every 4 hours as needed for wheezing/shortness of breath. 1 Each 3 melatonin 3 mg tablet Take 3 mg by mouth. qhs acetaminophen 325 mg cap Take by mouth as needed. MULTIVITAMIN ORAL Take 1 tablet by mouth once daily. mometasone-formoterol (DULERA) 100-5 mcg/actuation inhaler Inhale 2 Puffs as instructed two times a day. 1 Each 11 No current facility-administered medications for this visit. Review of Systems Constitutional: Negative for chills, diaphoresis, fever, malaise/fatigue and weight loss. HENT: Negative for congestion, ear discharge, ear pain, hearing loss, nosebleeds, sinus pain, sore throat and tinnitus. Eyes: Negative for blurred vision, double vision, photophobia, pain, discharge and redness. Respiratory: Negative for cough, hemoptysis, sputum production, shortness of breath, wheezing and stridor. Cardiovascular: Negative for chest pain, palpitations, orthopnea, claudication, leg swelling and PND. Gastrointestinal: Negative for abdominal pain, blood in stool, constipation, diarrhea, heartburn, melena, nausea and vomiting. Genitourinary: Negative for dysuria, flank pain, frequency, hematuria and urgency. Musculoskeletal: Negative for back pain, falls, joint pain, myalgias and neck pain. Skin: Negative for itching and rash. Neurological: Negative for dizziness, tingling, tremors, sensory change, speech change, focal weakness, seizures, loss of consciousness, weakness and headaches. Endo/Heme/Allergies: Negative for environmental allergies and polydipsia. Does not bruise/bleed easily. Psychiatric/Behavioral: Negative for depression, hallucinations, memory (more content not included)... [facility] 05-15-2023 Note HNO ID: [id number] Author: Danny Oneill, DO Service: ? Author Type: Physician Type: Progress Notes Filed: 05/15/2023 10:04 AM Note Text: Diagnosis: 1) IgG lambda MGUS. HPI: Patient is a 73-year-old female who has past medical history significant for osteoporosis, possible renal lithiasis, HOCM and HTN. Over the 3 years prior to referral here, she had rather significant blistering and erythema with any type of insect bite. She also had two localized rashes which had cleared. Was therefore undergoing dermatologic evaluation for these issues and on screening blood work was found to have monoclonal gammopathy with an M spike concentration of 0.42 g/dL. Immunofixation revealed IgG lambda monoclonal protein. Urine electrophoresis was negative. CBC was unremarkable. The white count was 6850 with a normal differential. Hemoglobin 14 g/dL. Platelet count 291,000. She had right shoulder and b/l hip pain that had been worked up. She was undergoing physical therapy for her shoulder. Plain films showed degenerative changes at the AC joint. No evidence of lytic lesions in the visualized bone structure in that area. She was also under the care of orthopedic surgery center for the hip pain. She has a history of scoliosis and had Lozada rods placed in 1963. Since then, she's been told one of the pins has worked loose. She also had bone graft donor site from the left pelvis for one of the vertebral bones. Bone survey on 03/30/2017 revealed no evidence of lesion or other pathologic bone lesion. Presents for ongoing hematologic management. Interim history: On q 6 month Prolia. Bone density 03/2023: LEFT HIP: The bone mineral density of the total region of the hip is 0.538 grams per square centimeter which yields a T-score of -3.3. There has been a 9.2% statistically significant interval decrease in bone mineral density. LEFT FEMORAL NECK: The bone mineral density of the femoral neck is 0.485 grams per square centimeter which yields a T-score of -3.3. There has been an 8.6% statistically significant interval decrease in bone mineral density. Still has occasional numbness under left eye. No other symptoms of peripheral neuropathy. Occasional shoulder pain (both, but not at same time). Pain left hip (buttocks) when lying for recent bone survey. PMH, medications and allergies personally reviewed by me today. Any changes documented in appropriate section. ROS: Constitutional: No recent or recurrent episodes of fever. No drenching night sweats. Normal appetite. Normal energy. Neuro: Denies LARA, vertigo, dizziness and imbalance. HEENT: No recent change in voice, vision or hearing. Resp: Denies cough, wheeze and hemoptysis. Denies shortness of breath at rest. Has chronic dyspnea with exertion secondary to restrictive physiology from scoliosis. CVS: Denies exertional chest pain, PND, orthopnea and LE edema. GI: Denies dysgeusia. Denies symptoms of stomatitis. Denies dysphagia and odynophagia. Denies reflux, n/v, change in bowel habits and abdominal pain. : Denies dysuria or gross hematuria. No symptoms of bladder outlet obstruction. Endo: Denies hot flashes. Denies polyuria and polydipsia. Denies heat and cold intolerance. Musculoskeletal: See above. Derm: Denies rash. Denies jaundice and diffuse pruritis. Heme: Denies unusual bleeding and unexplained bruising. Psych: Normal mood. PHYSICAL EXAM: Vitals: Blood pressure 155/78, pulse 84, temperature 37.4 ?C (99.3 ?F), height 158.2 cm (5' 2.3 ), weight 52.6 kg (116 lb), SpO2 97%. Well-appearing and in no acute distress. EYES: Sclerae are anicteric bilaterally. NECK: Supple. LYMPHATIC: There is no palpable cervical, supraclavicular adenopathy. RESPIRATORY: Inspiratory breath sounds are of normal left and diminished on right. CARDIOVASCULAR: Rhythm is regular. ABDOMEN: The abdomen is nondistended. No organomegaly. No tenderness. Extremities: No swelling or edema. SKIN: No jaundice or rash. No petechiae. 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 No focal motor weakness. MUSCULOSKELETAL: Kyphoscoliosis. LABS: Component Latest Ref Rng AND Units 05/09/2023 WBC 3.70 - 11.00 k/uL 7.40 RBC 3.90 - 5.20 m/uL 4.82 Hemoglobin 11.5 - 15.5 g/dL 12.7 Hematocrit 36.0 - 46.0 % 39.4 MCV 80.0 - 100.0 fL 81.7 MCH 26.0 - 34.0 pg 26.3 MCHC 30.5 - 36.0 g/dL 32.2 RDW-CV 11.5 - 15.0 % 14.8 Platelet Count 150 - 400 k/uL 269 MPV 9.0 - 12.7 fL 10.1 Neut% % 67.3 Abs Neut (ANC) 1.45 - 7.50 k/uL 4.98 Lymph% % 20.4 Abs Lymph 1.00 - 4.00 k/uL 1.51 [place]% % 9.1 Abs [place] <0.87 k/uL 0.67 Eosin% % 1.6 Abs Eosin <0.46 k/uL 0.12 Baso% % 1.5 Abs Baso <0.11 k/uL 0.11 (H) Immature Gran % % 0.1 IMMATURE GRANS (ABS) <0.10 k/uL <0.03 NRBC /100 WBC 0.0 Absolute nRBC <0.01 k/uL <0.01 DTYPE Auto Protein, Total 6.3 - 8.0 g/dL 7.6 Albumin 3.9 - 4.9 g/dL 4.7 Calcium 8.5 - 10.2 mg/dL 10.0 Bilirubin, Total 0.2 - 1 (more content not included)... [facility] 05-15-2023 History of Present illness Narrative Diagnosis: 1) IgG lambda MGUS. HPI: Patient is a 73-year-old female who has past medical history significant for osteoporosis, possible renal lithiasis, HOCM and HTN. Over the 3 years prior to referral here, she had rather significant blistering and erythema with any type of insect bite. She also had two localized rashes which had cleared. Was therefore undergoing dermatologic evaluation for these issues and on screening blood work was found to have monoclonal gammopathy with an M spike concentration of 0.42 g/dL. Immunofixation revealed IgG lambda monoclonal protein. Urine electrophoresis was negative. CBC was unremarkable. The white count was 6850 with a normal differential. Hemoglobin 14 g/dL. Platelet count 291,000. She had right shoulder and b/l hip pain that had been worked up. She was undergoing physical therapy for her shoulder. Plain films showed degenerative changes at the AC joint. No evidence of lytic lesions in the visualized bone structure in that area. She was also under the care of orthopedic surgery center for the hip pain. She has a history of scoliosis and had Lozada rods placed in 1963. Since then, she's been told one of the pins has worked loose. She also had bone graft donor site from the left pelvis for one of the vertebral bones. Bone survey on 03/30/2017 revealed no evidence of lesion or other pathologic bone lesion. Presents for ongoing hematologic management. Interim history: On q 6 month Prolia. Bone density 03/2023: LEFT HIP: The bone mineral density of the total region of the hip is 0.538 grams per square centimeter which yields a T-score of -3.3. There has been a 9.2% statistically significant interval decrease in bone mineral density. LEFT FEMORAL NECK: The bone mineral density of the femoral neck is 0.485 grams per square centimeter which yields a T-score of -3.3. There has been an 8.6% statistically significant interval decrease in bone mineral density. Still has occasional numbness under left eye. No other symptoms of peripheral neuropathy. Occasional shoulder pain (both, but not at same time). Pain left hip (buttocks) when lying for recent bone survey. PMH, medications and allergies personally reviewed by me today. Any changes documented in appropriate section. ROS: Constitutional: No recent or recurrent episodes of fever. No drenching night sweats. Normal appetite. Normal energy. Neuro: Denies LARA, vertigo, dizziness and imbalance. HEENT: No recent change in voice, vision or hearing. Resp: Denies cough, wheeze and hemoptysis. Denies shortness of breath at rest. Has chronic dyspnea with exertion secondary to restrictive physiology from scoliosis. CVS: Denies exertional chest pain, PND, orthopnea and LE edema. GI: Denies dysgeusia. Denies symptoms of stomatitis. Denies dysphagia and odynophagia. Denies reflux, n/v, change in bowel habits and abdominal pain. : Denies dysuria or gross hematuria. No symptoms of bladder outlet obstruction. Endo: Denies hot flashes. Denies polyuria and polydipsia. Denies heat and cold intolerance. Musculoskeletal: See above. Derm: Denies rash. Denies jaundice and diffuse pruritis. Heme: Denies unusual bleeding and unexplained bruising. Psych: Normal mood. PHYSICAL EXAM: Vitals: Blood pressure 155/78, pulse 84, temperature 37.4 C (99.3 F), height 158.2 cm (5' 2.3 ), weight 52.6 kg (116 lb), SpO2 97%. Well-appearing and in no acute distress. EYES: Sclerae are anicteric bilaterally. NECK: Supple. LYMPHATIC: There is no palpable cervical, supraclavicular adenopathy. RESPIRATORY: Inspiratory breath sounds are of normal left and diminished on right. CARDIOVASCULAR: Rhythm is regular. ABDOMEN: The abdomen is nondistended. No organomegaly. No tenderness. Extremities: No swelling or edema. SKIN: No jaundice or rash. No petechiae. 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 No focal motor weakness. MUSCULOSKELETAL: Kyphoscoliosis. LABS: Component Latest Ref Rng & Units 05/09/2023 WBC 3.70 - 11.00 k/uL 7.40 RBC 3.90 - 5.20 m/uL 4.82 Hemoglobin 11.5 - 15.5 g/dL 12.7 Hematocrit 36.0 - 46.0 % 39.4 MCV 80.0 - 100.0 fL 81.7 MCH 26.0 - 34.0 pg 26.3 MCHC 30.5 - 36.0 g/dL 32.2 RDW-CV 11.5 - 15.0 % 14.8 Platelet Count 150 - 400 k/uL 269 MPV 9.0 - 12.7 fL 10.1 Neut% % 67.3 Abs Neut (ANC) 1.45 - 7.50 k/uL 4.98 Lymph% % 20.4 Abs Lymph 1.00 - 4.00 k/uL 1.51 [place]% % 9.1 Abs [place] <0.87 k/uL 0.67 Eosin% % 1.6 Abs Eosin <0.46 k/uL 0.12 Baso% % 1.5 Abs Baso <0.11 k/uL 0.11 (H) Immature Gran % % 0.1 IMMATURE GRANS (ABS) <0.10 k/uL <0.03 NRBC /100 WBC 0.0 Absolute nRBC <0.01 k/uL <0.01 DTYPE Auto Protein, Total 6.3 - 8.0 g/dL 7.6 Albumin 3.9 - 4.9 g/dL 4.7 Calcium 8.5 - 10.2 mg/dL 10.0 Bilirubin, Total 0.2 - 1.3 mg/dL 0.2 Alkaline Phosphatase 34 - 123 U/L 64 AST 13 - 35 U/L 24 ALT 7 - 38 U/L 15 Glucose 74 - 99 mg/dL 102 (H) BUN 7 - 21 mg/dL 20 Creatinine 0.58 - 0.96 mg/dL 0.74 Sodium 136 - 144 mmol/L 138 Potassium 3.7 - 5.1 mmol/L 3.8 Chloride 97 - 105 mmol/L 99 CO2 22 - 30 mmol/L 29 Anion Gap 9 - 18 mmol/L 10 eGFR >=60 mL/min/1.73m 85 LD 135 - 214 U/L 231 (H) B2 Microglobulin <3.1 mg/L 2.3 Spot urine sample positive for monoclonal protein on electrophoresis and immunofixation. IMAGING: Whole-body bone survey 05/03/2022: IMPRESSION: No osteolytic lesions are noted. Other findings as detailed. PATHOLOGY: Bone marrow biopsy 04/05/2017: FINAL DIAGNOSIS BONE MARROW, ASPIRATE SMEARS, CORE BIOPSY, AND CLOT SECTION, WITH PERIPHERAL BLOOD SMEAR (A-C): - NORMOCELLULAR MARROW (40%) WITH TRILINEAGE HEMATOPOIESIS. - LESS THAN 5% POLYTYPIC PLASMA CELLS. - SEE COMMENT. COMMENT: The patient was recently found to have an IgG lambda paraprotein. Correlation with results of pending conventional cytogenetic analysis is recommended. Unremarkable peripheral blood smear. BONE MARROW ASPIRATE: % Normal (0-2) 0 % Blasts (1-5) 0 % Promyelo (32-72) 57 % Myelos/Metas/Bands/Segs (1-6) 3 % Eosinophils (0-1) 0 % Basophils (0-4) 2 % Monocytes (13-37) 23 % Erythroid precursors (7-23) 14 % Lymphocytes (0-2) 1 % Plasma cells Myeloid/Erythro (1.5-4): 2.7 Cells counted: 500. Iron stain result: Increased. No ring sideroblasts. Specimen quality: Cellular and spicular. Megakaryocytes: Present, with normal morphology. Erythropoiesis: Normoblastic maturation. Granulopoiesis: Normal maturation. BONE MARROW BIOPSY: Adequacy: Suboptimal (fragmented). Cellularity: Normal (40%). ME ratio: Normal. Hematopoiesis: Trilineage maturation. Megakaryocytes: Adequate. Megakaryocyte morphology: Unremarkable. Lymphoid infiltrate: None seen. Bone trabeculae: Focal thinning. Other: Immunohistochemical stains for CD138 and kappa and lambda immunoglobulin light chains were performed to assess plasma cells. CD138 shows less than 5% plasma cells, which are polytypic by kappa/lambda staining. CLOT SECTION: Marrow particles: Many. Morphology: Similar to biopsy. ANCILLARY TESTS: Flow cytometry: Not indicated. Cytogenetics: Karyotype: 46,XX[20] ASSESSMENT/PLAN: (D47.2) Monoclonal gammopathy (primary encounter diagnosis) Assessment: -IgG lambda monoclonal protein with initial M spike concentration at 0.42 g/dL. -No previous evidence of myeloma defining end organ damage and none currently. -Current serum monoclonal protein 0.59 g/dL. -History of osteoporosis. Receiving q 6 month Prolia. Recent bone density testing showed significant worsening of osteoporosis. -She has stable laboratory findings with small increase in serum monoclonal protein although no change when compared to 2018. However she has progressive osteoporosis despite every 6 month Prolia administration. Further workup warranted including bone marrow biopsy. Discussed and consented. Plan: -Bone marrow biopsy. -Rx for premeds sent. -Orders for biopsy filed. -Office visit 2 to 3 weeks following biopsy. Portions of this documentation were copied and pasted from previous office visit notes in order to provide a cohesive continuity of the history. The note has been reviewed and edited and updated as necessary. I spent a total of 25 minutes on the date of the service which included preparing to see the patient, [id number] patient care, completing clinical documentation, obtaining and/or reviewing separately obtained history, performing a medically appropriate examination, counseling and educating the patient/family/caregiver, ordering medications, tests, or procedures, communicating with other HCPs (not separately reported), and communicating results to the patient/family/caregiver. Danny Oneill DO documented in this encounter [facility] 05-09-2023 History of Present illness Narrative Radiology Service Progress Note PATIENT NAME: Vandana Mitchell DATE OF SERVICE: May 09, 2023 TIME: 8:53 AM PATIENT IDENTITY VERIFICATION COMPLETED USING TWO (2) IDENTIFIERS: Name and Date of confirmed by patient verbally. FALL SCREENING: Has the patient had 2 falls in the last year or 1 fall with injury or currently using an Ambulatory Assistive Device (Walker, Cane, Wheelchair, Crutches, etc.)? No PATIENT GENDER DATA: Female. status: : No status: NO. PATIENT RELEVANT IMPLANT DATA REVIEWED: Not Applicable RADIOLOGY DEPARTMENT: General X-ray: Exam(s) Completed: Bone Survey PERIPHERAL IV DATA: Not applicable SIGNED BY: RT Herlinda(R) May 09, 2023 8:53 AM documented in this encounter [facility] 05-09-2023 Note HNO ID: [id number] Author: Radha Escamilla RT(Andrea) Service: Radiology Author Type: Technologist Type: Progress Notes Filed: 05/09/2023 9:20 AM Note Text: Radiology Service Progress Note PATIENT NAME: Vandana Mitchell DATE OF SERVICE: May 09, 2023 TIME: 8:53 AM PATIENT IDENTITY VERIFICATION COMPLETED USING TWO (2) IDENTIFIERS: Name and Date of confirmed by patient verbally. FALL SCREENING: Has the patient had 2 falls in the last year or 1 fall with injury or currently using an Ambulatory Assistive Device (Walker, Cane, Wheelchair, Crutches, etc.)? No PATIENT GENDER DATA: Female. status: : No status: NO. PATIENT RELEVANT IMPLANT DATA REVIEWED: Not Applicable RADIOLOGY DEPARTMENT: General X-ray: Exam(s) Completed: Bone Survey PERIPHERAL IV DATA: Not applicable SIGNED BY: RT Herlinda(R) May 09, 2023 8:53 AM [facility] 04-24-2023 Miscellaneous Notes Called patient- Breo, Advair, Dulera, generic Advair, Wixela. [facility]. Kristian Mims LPN documented in this encounter [facility] 03-30-2023 History of Present illness Narrative Images from the original note were not included. . Respiratory [facility] Note Patient name: Vandana Mitchell PCP: Markus Rascon MD CC: Follow-up lung disease HPI: Vandana Mitchell 72 year old female non-smoker with PMH significant for HTN, MGUS, HOCM, restrictive 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, and asthma. Diagnosed clinically with asthma, unable to perform CARL due to her baseline severe restriction and patient unable to perform Jeannette. Current treatment with Symbicort and as needed albuterol. Today she states she has been doing fairly well. No recent upper respiratory infections or need for hospitalization. She states that she has persistent osteoporosis despite her Prolia injections and is somewhat concerned about use of her inhaled corticosteroid. She had previously tried to decrease her dosing to once daily but had nocturnal symptoms so is reluctant to decrease her dose back to once daily. She could decrease the amount of inhaled corticosteroid by changing to Symbicort 80/4.5. Although there is systemic resorption from inhaled corticosteroids, risk of osteoporosis increases with daily dosing of budesonide above 800 mcg. Main symptoms consist of dyspnea. She denies chronic cough, wheezing, chest pain. Rare need for albuterol. ASTHMA CONTROL TEST Date: 03/30/2023 In the last 4 weeks, how much of the time did your asthma keep you from getting as much done at work or home that you wanted to do? A little of the time (4) In the last 4 weeks, how often have you had shortness of breath? Once or twice per week (4) In the last 4 weeks, how often did your asthma symptoms (wheezing, coughing, shortness of breath, chest tightness or pain) wake you up at night or earlier than usual? Once or twice (4) In the last 4 weeks, how often have you used your rescue inhaler or nebulizer medication (such as Albuterol, Proventil, Ventolin, Maxair, Xoponex, or Primatene Mist)? Once a week or less (4) In the last 4 weeks, how would you rate your asthma control? Well controlled (4) Total: more than 20 PAST MEDICAL HISTORY Diagnosis Date Arthritis Diastolic dysfunction Grade I Disorder of bone and cartilage, unspecified Diverticulosis 2009 colonoscopy History of transfusion HOCM (hypertrophic obstructive cardiomyopathy) (HCC) Insomnia, unspecified Melanocytic Nevocellular Nevi pigmented moles of trunk: back mainly 08/02/2011 Mitral valve disorders Monoclonal gammopathy 04/2017 Other diseases of lung, not elsewhere classified restrictive lung disease Other pulmonary embolism and infarction 07/25/2012 ? had pe with normal d dimer. saw pulmonary. not convinced she did have one. Renal cyst Small airways disease Possible asthma. Patient unable to perform definitive test Unspecified essential hypertension ALLERGIES Allergen Reactions Amoxicillin Rash Asa [Salicylates] Swelling lip swelling Diclofenac Shortness of Breath Iodine Shortness of Breath Monistat 1 [Tiocona* Other: See Comments Burning Shell Fish [Other] Anaphylaxis Metoprolol Intolerance SOB budesonide-formoterol (SYMBICORT) 160-4.5 mcg/actuation inhaler Inhale 2 Puffs as instructed twice daily. dilTIAZem CD (CARDIZEM CD) 180 mg 24 hr capsule Take 1 capsule by mouth once daily. calcium citrate (CITRACAL ORAL) Take by mouth. clindamycin (CLEOCIN T) 1 % gel Apply to affected area once daily. denosumab (PROLIA) 60 mg/mL Inject subcutaneously once every 6 months. albuterol HFA (VENTOLIN HFA) 90 mcg/actuation inhaler Inhale 2 Puffs as instructed every 4 hours as needed for wheezing/shortness of breath. melatonin 3 mg tablet Take 3 mg by mouth. qhs acetaminophen 325 mg cap Take by mouth as needed. MULTIVITAMIN ORAL Take 1 tablet by mouth once daily. Social History Tobacco Use Smoking status: Never Smokeless tobacco: Never Tobacco comments: Father smoked in childhood home. Spouse does not smoke. Vaping Use Vaping Use: Never used Substance Use Topics Alcohol use: Yes Alcohol/week: 1.7 standard drinks of alcohol Comment: Occasionally. Drug use: No PMH, Social history, family history and surgical history reviewed and updated in EMR REVIEW OF SYSTEMS: CONSTITUTIONAL: No fevers, chills, nightsweats. Some weight loss HEENT: Denies nasal congestion/sinus symptoms,allergy problems. CARDIOVASCULAR: No chest pain, palpitations, orthopnea, PND, edema. PULM: See HPI GI: No dysphagia/odynophagia, problematic reflux NEURO: No new balance problems, peripheral weakness/paresthesias or numbness of concern. INTEGUMENTARY: No new skin changes or rashes PHYSICAL EXAMINATION: BP 154/78 Pulse 84 Wt 115 lb 9.6 oz (52.4kg) SpO2 96% General Appearance: Age appropriate female, NAD. Skin: Skin color, texture, turgor normal, no suspicious rashes or lesions. Head: Normocephalic, no masses, lesions, tenderness or abnormalities. Oropharynx: No oral lesions, thrush or erythema. Neck: No JVD, no masses, no adenopathy Chest wall: Significant scoliosis. Lungs: Not labored, normal to percussion, no wheezes or crackles. Heart: Regular rate and rhythm, no murmurs or gallops. Extremities: No edema or clubbing. Assessment/Plan: 1. Asthma COPD overlap syndrome -Recommend continued use of her Symbicort but could decrease the dosing to 80/4.5. Patient is reluctant to do so since she seems to be doing well from a respiratory standpoint current regimen -She has received her flu vaccine for this season and is pending RSV and COVID booster 2. Restrictive lung disease due to scoliosis -Moderately severe restriction due to scoliosis. No intervention. -No need for supplemental oxygen. Nain Campbell MD [facility] documented in this encounter [facility] 03-30-2023 Note HNO ID: [id number] Author: Nain Campbell MD Service: ? Author Type: Physician Type: Progress Notes Filed: 03/30/2023 1:55 PM Note Text: . Respiratory [facility] Note Patient name: Vandana Mitchell PCP: Markus Rascon MD CC: Follow-up lung disease HPI: Vandana Mitchell 72 year old female non-smoker with PMH significant for HTN, MGUS, HOCM, restrictive 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, and asthma. Diagnosed clinically with asthma, unable to perform CARL due to her baseline severe restriction and patient unable to perform Jeannette. Current treatment with Symbicort and as needed albuterol. Today she states she has been doing fairly well. No recent upper respiratory infections or need for hospitalization. She states that she has persistent osteoporosis despite her Prolia injections and is somewhat concerned about use of her inhaled corticosteroid. She had previously tried to decrease her dosing to once daily but had nocturnal symptoms so is reluctant to decrease her dose back to once daily. She could decrease the amount of inhaled corticosteroid by changing to Symbicort 80/4.5. Although there is systemic resorption from inhaled corticosteroids, risk of osteoporosis increases with daily dosing of budesonide above 800 mcg. Main symptoms consist of dyspnea. She denies chronic cough, wheezing, chest pain. Rare need for albuterol. ASTHMA CONTROL TEST Date: 03/30/2023 In the last 4 weeks, how much of the time did your asthma keep you from getting as much done at work or home that you wanted to do? A little of the time (4) In the last 4 weeks, how often have you had shortness of breath? Once or twice per week (4) In the last 4 weeks, how often did your asthma symptoms (wheezing, coughing, shortness of breath, chest tightness or pain) wake you up at night or earlier than usual? Once or twice (4) In the last 4 weeks, how often have you used your rescue inhaler or nebulizer medication (such as Albuterol, Proventil, Ventolin, Maxair, Xoponex, or Primatene Mist)? Once a week or less (4) In the last 4 weeks, how would you rate your asthma control? Well controlled (4) Total: more than 20 PAST MEDICAL HISTORY Diagnosis Date Arthritis Diastolic dysfunction Grade I Disorder of bone and cartilage, unspecified Diverticulosis 2009 colonoscopy History of transfusion HOCM (hypertrophic obstructive cardiomyopathy) (HCC) Insomnia, unspecified Melanocytic Nevocellular Nevi pigmented moles of trunk: back mainly 08/02/2011 Mitral valve disorders Monoclonal gammopathy 04/2017 Other diseases of lung, not elsewhere classified restrictive lung disease Other pulmonary embolism and infarction 07/25/2012 ? had pe with normal d dimer. saw pulmonary. not convinced she did have one. Renal cyst Small airways disease Possible asthma. Patient unable to perform definitive test Unspecified essential hypertension ALLERGIES Allergen Reactions Amoxicillin Rash Asa [Salicylates] Swelling lip swelling Diclofenac Shortness of Breath Iodine Shortness of Breath Monistat 1 [Tiocona* Other: See Comments Burning Shell Fish [Other] Anaphylaxis Metoprolol Intolerance SOB budesonide-formoterol (SYMBICORT) 160-4.5 mcg/actuation inhaler Inhale 2 Puffs as instructed twice daily. dilTIAZem CD (CARDIZEM CD) 180 mg 24 hr capsule Take 1 capsule by mouth once daily. calcium citrate (CITRACAL ORAL) Take by mouth. clindamycin (CLEOCIN T) 1 % gel Apply to affected area once daily. denosumab (PROLIA) 60 mg/mL Inject subcutaneously once every 6 months. albuterol HFA (VENTOLIN HFA) 90 mcg/actuation inhaler Inhale 2 Puffs as instructed every 4 hours as needed for wheezing/shortness of breath. melatonin 3 mg tablet Take 3 mg by mouth. qhs acetaminophen 325 mg cap Take by mouth as needed. MULTIVITAMIN ORAL Take 1 tablet by mouth once daily. Social History Tobacco Use Smoking status: Never Smokeless tobacco: Never Tobacco comments: Father smoked in childhood home. Spouse does not smoke. Vaping Use Vaping Use: Never used Substance Use Topics Alcohol use: Yes Alcohol/week: 1.7 standard drinks of alcohol Comment: Occasionally. Drug use: No PMH, Social history, family history and surgical history reviewed and updated in EMR REVIEW OF SYSTEMS: CONSTITUTIONAL: No fevers, chills, nightsweats. Some weight loss HEENT: Denies nasal congestion/sinus symptoms,allergy problems. CARDIOVASCULAR: No chest pain, palpitations, orthopnea, PND, edema. PULM: See HPI GI: No dysphagia/odynophagia, problematic reflux NEURO: No new balance problems, peripheral weakness/paresthesias or numbness of concern. INTEGUMENTARY: No new skin changes or rashes PHYSICAL EXAMINATION: BP 154/78 Pulse 84 Wt 115 lb 9.6 oz (52.4kg) SpO2 96% General Appearance: Age appropriate female, NAD. Skin: Skin color, texture, turgor normal, no suspicious rashes or lesions. H (more content not included)... [facility] 03-07-2023 History of Present illness Narrative Radiology Service Progress Note PATIENT NAME: Vandana Mitchell DATE OF SERVICE: March 07, 2023 TIME: 10:31 AM PATIENT IDENTITY VERIFICATION COMPLETED USING TWO (2) IDENTIFIERS: Name and Date of confirmed by patient verbally. FALL SCREENING: Has the patient had 2 falls in the last year or 1 fall with injury or currently using an Ambulatory Assistive Device (Walker, Cane, Wheelchair, Crutches, etc.)? No PATIENT GENDER DATA: Female. status: : No status: NO. PATIENT RELEVANT IMPLANT DATA REVIEWED: Not Applicable RADIOLOGY DEPARTMENT: Bone Density PERIPHERAL IV DATA: Not applicable SIGNED BY: RT Jose Angel(R) March 07, 2023 10:31 AM documented in this encounter [facility] 01-10-2023 Miscellaneous Notes Patient has been identified by name and date of : Yes Patient phones for refill(s): Requested Prescriptions Pending Prescriptions Disp Refills budesonide-formoterol (SYMBICORT) 160-4.5 mcg/actuation inhaler 10.2 g 5 Sig: Inhale 2 Puffs as instructed twice daily. Date of last office visit in primary care: 11/17/2022 Please advise. Thank you. Rylee Tse LPN documented in this encounter [facility] 01-10-2023 History of Present illness Narrative POPULATION HEALTH NAVIGATION OUTREACH Action/FYI [facility] [employer] MESSAGE SENT ANNUAL MEDICARE WELLNESS EXAM Patient Identified by Name and : NO Outreach Outcome/Action Unable to reach patient: Left message [employer] message sent Did you use a PCP flex slot to schedule this appointment? No Reason for Outreach Care Gap or Scheduling/Wellness visits Payer: Payor: MEDICARE / Plan: MEDICARE A AND B / Product Type: Medicare / Care Gap Reviewed:: Annual Wellness visit Reminder: Reminder note to check Health Maintenance for items below Health Maintenance items due: BP CONTROLLED (<130/80) Never done COVID-19 VACCINE(6 - Moderna series) due on 07/26/2022 Navigation Signature: Nusrat Duke MA January 10, 2023 8:43 AM documented in this encounter [facility] 11-17-2022 History of Past i llness Narrative Problem Noted Date Diagnosed Date Resolved Date Epistaxis 11/17/2022 06/13/2023 Greater trochanteric bursitis 03/18/2022 09/16/2022 Age-related osteoporosis wit hout current pathological fracture 09/10/2021 06/13/2023 Murmur 10/05/2020 09/16/2021 Screening for colon cancer 09/24/2020 0 09/24/2020 Dyspnea on exertion 05/31/2019 09/17/19 23 Precordial pain 01/28/2019 09/16/2022 Mitral valve prolapse 08/09/20182022 Normal pelvic exam 01/24/2017 3 Muscle weakness 02/16/2015 07/21/2016 Complete uterovaginal prolapse 01/09/2015 03/30/2016 Pelvic muscle wasting 01/09/20152018 Other pulmonary embolism and infarction 07/25/2012 07/21/2016 Bursitis of right shoulder 10/10/2011 0 08/09/2018 Cervicalgia 08/28/2007 08/09/2018 Overview: Intermittent symptoms GENERAL OSTEOARTHROSIS 11/18/200507/03 Unspecified asthma(493.90) 1 06/11/2010 Disorder of bone and cartilage, unspecified 12/04/2019 Overview: Seen by 07/2011 - Rosalinda resumed. documented as of this encounter (statuses as of 07/11/2023) [facility] History of Past illness Narrative* Problem Noted Date Diagnosed Date Resolved Date Epistaxis 11/17/2022 06/13/2023 Greater trochanteric bursitis 03/18/2022 09/16/2022 Age-related osteoporosis wit hout current pathological fracture 09/10/2021 06/13/2023 Murmur 10/05/2020 09/16/2021 Screening for colon cancer 09/24/2020 0 09/24/2020 Dyspnea on exertion 05/31/2019 09/17/19 23 Precordial pain 01/28/2019 09/16/2022 Mitral valve prolapse 08/09/20182022 Normal pelvic exam 01/24/2017 3 Muscle weakness 02/16/2015 07/21/2016 Complete uterovaginal prolapse 01/09/2015 03/30/2016 Pelvic muscle wasting 01/09/20152018 Other pulmonary embolism and infarction 07/25/2012 07/21/2016 Bursitis of right shoulder 10/10/2011 0 08/09/2018 Cervicalgia 08/28/2007 08/09/2018 Overview: Intermittent symptoms GENERAL OSTEOARTHROSIS 11/18/200507/03 Unspecified asthma(493.90) 1 06/11/2010 Disorder of bone and cartilage, unspecified 12/04/2019 Overview: Seen by 07/2011 - Rosalinda garciaed. documented as of this encounter (statuses as of 07/28/2023) [facility] History of Past illness Narrative* Problem Noted Date Diagnosed Date Resolved Date Epistaxis 11/17/2022 06/13/2023 Greater trochanteric bursitis 03/18/2022 09/16/2022 Age-related osteoporosis wit hout current pathological fracture 09/10/2021 06/13/2023 Murmur 10/05/2020 09/16/2021 Screening for colon cancer 09/24/2020 0 09/24/2020 Dyspnea on exertion 05/31/2019 09/17/19 23 Precordial pain 01/28/2019 09/16/2022 Mitral valve prolapse 08/09/20182022 Normal pelvic exam 01/24/2017 3 Muscle weakness 02/16/2015 07/21/2016 Complete uterovaginal prolapse 01/09/2015 03/30/2016 Pelvic muscle wasting 01/09/20152018 Other pulmonary embolism and infarction 07/25/2012 07/21/2016 Bursitis of right shoulder 10/10/2011 0 08/09/2018 Cervicalgia 08/28/2007 08/09/2018 Overview: Intermittent symptoms GENERAL OSTEOARTHROSIS 11/18/200507/03 Unspecified asthma(493.90) 1 06/11/2010 Disorder of bone and cartilage, unspecified 12/04/2019 Overview: Seen by 07/2011 - Rosalinda resumed. documented as of this encounter (statuses as of 08/29/2023) [facility] History of Past illness Narrative* Problem Noted Date Diagnosed Date Resolved Date Epistaxis 11/17/2022 06/13/2023 Greater trochanteric bursitis 03/18/2022 09/16/2022 Age-related osteoporosis wit hout current pathological fracture 09/10/2021 06/13/2023 Murmur 10/05/2020 09/16/2021 Screening for colon cancer 09/24/2020 0 09/24/2020 Dyspnea on exertion 05/31/2019 09/17/19 23 Precordial pain 01/28/2019 09/16/2022 Mitral valve prolapse 08/09/20182022 Normal pelvic exam 01/24/2017 3 Muscle weakness 02/16/2015 07/21/2016 Complete uterovaginal prolapse 01/09/2015 03/30/2016 Pelvic muscle wasting 01/09/20152018 Other pulmonary embolism and infarction 07/25/2012 07/21/2016 Bursitis of right shoulder 10/10/2011 0 08/09/2018 Cervicalgia 08/28/2007 08/09/2018 Overview: Intermittent symptoms GENERAL OSTEOARTHROSIS 11/18/200507/03 Unspecified asthma(493.90) 1 06/11/2010 Disorder of bone and cartilage, unspecified 12/04/2019 Overview: Seen by 07/2011 - Rosalinda resumed. documented as of this encounter (statuses as of 09/04/2023) [facility] History of Past illness Narrative* Problem Noted Date Diagnosed Date Resolved Date Epistaxis 11/17/2022 06/13/2023 Greater trochanteric bursitis 03/18/2022 09/16/2022 Age-related osteoporosis wit hout current pathological fracture 09/10/2021 06/13/2023 Murmur 10/05/2020 09/16/2021 Screening for colon cancer 09/24/2020 0 09/24/2020 Dyspnea on exertion 05/31/2019 09/17/19 23 Precordial pain 01/28/2019 09/16/2022 Mitral valve prolapse 08/09/20182022 Normal pelvic exam 01/24/2017 3 Muscle weakness 02/16/2015 07/21/2016 Complete uterovaginal prolapse 01/09/2015 03/30/2016 Pelvic muscle wasting 01/09/20152018 Other pulmonary embolism and infarction 07/25/2012 07/21/2016 Bursitis of right shoulder 10/10/2011 0 08/09/2018 Cervicalgia 08/28/2007 08/09/2018 Overview: Intermittent symptoms GENERAL OSTEOARTHROSIS 11/18/200507/03 Unspecified asthma(493.90) 1 06/11/2010 Disorder of bone and cartilage, unspecified 12/04/2019 Overview: Seen by 07/2011 - Rosalinda resumed. documented as of this encounter (statuses as of 09/05/2023) [facility] History of Past illness Narrative* Problem Noted Date Diagnosed Date Resolved Date Epistaxis 11/17/2022 06/13/2023 Greater trochanteric bursitis 03/18/2022 09/16/2022 Age-related osteoporosis wit hout current pathological fracture 09/10/2021 06/13/2023 Murmur 10/05/2020 09/16/2021 Screening for colon cancer 09/24/2020 0 09/24/2020 Dyspnea on exertion 05/31/2019 09/17/19 23 Precordial pain 01/28/2019 09/16/2022 Mitral valve prolapse 08/09/20182022 Normal pelvic exam 01/24/2017 3 Muscle weakness 02/16/2015 07/21/2016 Complete uterovaginal prolapse 01/09/2015 03/30/2016 Pelvic muscle wasting 01/09/20152018 Other pulmonary embolism and infarction 07/25/2012 07/21/2016 Bursitis of right shoulder 10/10/2011 0 08/09/2018 Cervicalgia 08/28/2007 08/09/2018 Overview: Intermittent symptoms GENERAL OSTEOARTHROSIS 11/18/200507/03 Unspecified asthma(493.90) 1 06/11/2010 Disorder of bone and cartilage, unspecified 12/04/2019 Overview: Seen by 07/2011 - Rosalinda resumed. documented as of this encounter (statuses as of 09/05/2023) [facility] History of Past illness Narrative* Problem Noted Date Diagnosed Date Resolved Date Epistaxis 11/17/2022 06/13/2023 Greater trochanteric bursitis 03/18/2022 09/16/2022 Age-related osteoporosis wit hout current pathological fracture 09/10/2021 06/13/2023 Murmur 10/05/2020 09/16/2021 Screening for colon cancer 09/24/2020 0 09/24/2020 Dyspnea on exertion 05/31/2019 09/17/19 23 Precordial pain 01/28/2019 09/16/2022 Mitral valve prolapse 08/09/20182022 Normal pelvic exam 01/24/2017 3 Muscle weakness 02/16/2015 07/21/2016 Complete uterovaginal prolapse 01/09/2015 03/30/2016 Pelvic muscle wasting 01/09/20152018 Other pulmonary embolism and infarction 07/25/2012 07/21/2016 Bursitis of right shoulder 10/10/2011 0 08/09/2018 Cervicalgia 08/28/2007 08/09/2018 Overview: Intermittent symptoms GENERAL OSTEOARTHROSIS 11/18/200507/03 Unspecified asthma(493.90) 1 06/11/2010 Disorder of bone and cartilage, unspecified 12/04/2019 Overview: Seen by 07/2011 - Rosalinda resumed. documented as of this encounter (statuses as of 09/07/2023) [facility] History of Present illness Narrative* Markus Rascon MD - 11/17/2022 1:16 PM EDT Patient presents with: Follow Up HPI: Patient presents today for office visit for two month follow up. Has carotid US done. Unchanged. Bone density scheduled for February. Labs are ok. Sugars were slightly up. A1c was 5.2 She brought home BP cuff to validate today. Manual reading 136/58 Her cuff 130/66 Denies chest pain and shortness of breath Discussed her memory. Sometimes has to think about how to make a letter. No changes in the size of the letters. No tremors or falls. No headache or numbness or weakness. Discussed being anxious at times. She does not want treated. See previous ov: HTN: Patient is compliant with meds Yes Monitors bp at home: Yes. Home cuff validated today. Brings home readings to office with her. They are all good. Denies side effects: Yes. Chest pain: No. Dyspnea: No. Edema: wears stockings. Palpitations: No. Syncope: No. Headache: No. Dizziness: No. Has recently hematology, endo, cardiology and pulmonary and urogyn. Had her lip worked on. Worried about her memory. Her feels she is mine. Has had some issues remembering if she is taking her meds or not. Has issues sometimes getting flustered with paperwork etc. No issues with daily tasks. Not getting lost. Denies feeling stressed or anxious Depression Screening 09/16/2021 03/18/2022 05/11/2022 09/16/2022 PHQ-2 Score 1 0 0 0 PHQ-9 Score - - - - MELVIN-2 Total Score - - - - Depression screening tool completed and reviewed. Based on score and interview, patient is not at risk for depression. Screening tool discussed with patient, and I recommended no further interventionat this time. Component Latest Ref Rng & Units 09/16/2022 WBC 3.70 - 11.00 k/uL 8.45 RBC 3.90 - 5.20 m/uL 5.05 Hemoglobin 11.5 - 15.5 g/dL 13.3 Hematocrit 36.0 - 46.0 % 42.6 MCV 80.0 - 100.0 fL 84.4 MCH 26.0 - 34.0 pg 26.3 MCHC 30.5 - 36.0 g/dL 31.2 RDW-CV 11.5 - 15.0 % 14.3 Platelet Count 150 - 400 k/uL 289 MPV 9.0 - 12.7 fL 11.2 Neut% % 73.3 Abs Neut (ANC) 1.45 - 7.50 k/uL 6.19 Lymph% % 16.8 Abs Lymph 1.00 - 4.00 k/uL 1.42 [place]% % 7.3 Abs [place] <0.87 k/uL 0.62 Eosin% % 0.9 Abs Eosin <0.46 k/uL 0.08 Baso% % 1.3 Abs Baso <0.11 k/uL 0.11 (H) Immature Gran % % 0.4 IMMATURE GRANS (ABS) <0.10 k/uL 0.03 NRBC /100 WBC 0.0 Absolute nRBC <0.01 k/uL <0.01 DTYPE Auto Protein, Total 6.3 - 8.0 g/dL 7.2 Albumin 3.9 - 4.9 g/dL 4.7 Calcium 8.5 - 10.2 mg/dL 10.2 Bilirubin, Total 0.2 - 1.3 mg/dL 0.2 Alkaline Phosphatase 34 - 123 U/L 67 AST 13 - 35 U/L 21 ALT 7 - 38 U/L 18 Glucose 74 - 99 mg/dL 116 (H) BUN 7 - 21 mg/dL 12 Creatinine 0.58 - 0.96 mg/dL 0.57 (L) Sodium 136 - 144 mmol/L 139 Potassium 3.7 - 5.1 mmol/L 3.9 Chloride 97 - 105 mmol/L 102 CO2 22 - 30 mmol/L 28 Anion Gap 9 - 18 mmol/L 9 eGFR >=60 mL/min/1.73m 96 Syphilis Screen Result Nonreactive Nonreactive Syphilis Interpretation Cannot exclude recent Treponemal infection if specimen collected within 7-10 days after appearance of suspect lesions or 2-3 weeks after an exposure. Clinical correlation is required. Vitamin D 25 Hydroxy 31.0 - 80.0 ng/mL 50.3 TSH 0.270 - 4.200 mIU/L 1.930 Vitamin B12 232 - 1,245 pg/mL 1,053 Folate >4.7 ng/mL >20.0 MEDICATIONS: Current Outpatient Medications Medication Sig dilTIAZem CD (CARDIZEM CD) 180 mg 24 hr capsule Take 1 capsule by mouth once daily. calcium citrate (CITRACAL ORAL) Take by mouth. clindamycin (CLEOCIN T) 1 % gel Apply to affected area once daily. budesonide-formoterol (SYMBICORT) 160-4.5 mcg/actuation inhaler Inhale 2 Puffs as instructed twice daily. denosumab (PROLIA) 60 mg/mL Inject subcutaneously once every 6 months. albuterol HFA (VENTOLIN HFA) 90 mcg/actuation inhaler Inhale 2 Puffs as instructed every 4 hours asneeded for wheezing/shortness of breath. melatonin 3 mg tablet Take 3 mg by mouth. qhs acetaminophen 325 mg cap Take by mouth as needed. MULTIVITAMIN ORAL Take 1 tablet by mouth once daily. calcium, elemental, tab Take 1 tablet by mouth twice daily. Current Facility-Administered Medications Medication Dose Route Frequency perflutren lipid microspheres 1.3 mL in NaCl (PF) 0.9% 10 mL injection (DEFINITY) INTRAVENOUS DIRECTED PRN sodium chloride 0.9 % (flush) 10 mL (BD POSIFLUSH) 10 mL INTRAVENOUS DIRECTED PRN ALLERGIES: ALLERGIES Allergen Reactions Amoxicillin Rash Asa [Salicylates] Swelling lip swelling Diclofenac Shortness of Breath Iodine Shortness of Breath Monistat 1 [Tiocona* Other: See Comments Burning Shell Fish [Other] Anaphylaxis Metoprolol Intolerance SOB PAST MEDICAL HISTORY Diagnosis Date Arthritis Diastolic dysfunction Grade I Disorder of bone and cartilage, unspecified Diverticulosis 2009 colonoscopy History of transfusion HOCM (hypertrophic obstructive cardiomyopathy) (HCC) Insomnia, unspecified Melanocytic Nevocellular Nevi pigmented moles of trunk: back mainly 08/02/2011 Mitral valve disorders Monoclonal gammopathy 04/2017 Other diseases of lung, not elsewhere classified restrictive lung disease Other pulmonary embolism and infarction 07/25/2012 ? had pe with normal d dimer. saw pulmonary. not convinced she did have one. Renal cyst Small airways disease Possible asthma. Patient unable to perform definitive test Unspecified essential hypertension PAST SURGICAL HISTORY Procedure Laterality Date BACK SURGERY HX BIOPSY BREAST OPEN INCISIONAL left Bx of breast, incisional COLONOSCOPY FLX DX W/COLLJ SPEC WHEN PFRMD 10/27/2004 Colonoscopy COLONOSCOPY FLX DX W/COLLJ SPEC WHEN PFRMD 02/22/2010 Colonoscopy COLONOSCOPY FLX DX W/COLLJ SPEC WHEN PFRMD 03/19/2015 Colonoscopy CORRECT BUNION,SIMPLE CORRECTION HAMMERTOE EYE SURGERY HX PAST SURGICAL HISTORY OF scoliosis surgery PAST SURGICAL HISTORY OF laser kidney stone TONSILLECTOMY HX TONSILLECTOMY PRIMARY/SECONDARY <AGE 11 Tonsillectomy FAMILY HISTORY Problem Relation Age of Onset Colon Cancer Mother 56 Hypertension Mother Colon Cancer Father Diabetes Father Hypertension Maternal Grandmother Social History Tobacco Use Smoking status: Never Smokeless tobacco: Never Tobacco comments: Father smoked in childhood home. Spouse does not smoke. Vaping Use Vaping Use: Never used Substance Use Topics Alcohol use: Yes Alcohol/week: 1.7 standard drinks Comment: Occasionally. Drug use: No Reviewed current medications, allergies, past medical history, surgical history, family history andsocial history today. REVIEW OF SYSTEMS All other reviewed and negative other than HPI. HEALTH MAINTENANCE: Reviewed health maintenance issues today and recommended the following in detail. BP CONTROLLED (<130/80) Never done MAMMOGRAM - per c d stripper. VITALS: BP 136/58 Pulse 85 Ht 158.8 cm (5' 2.5 ) Wt 54.2 kg (119 lb 6.4 oz) SpO2 97% BMI 21.49 kg/m Last 4 Encounter Wt Readings: Date: Wt: 09/26/2022 54.4 kg (120 lb) 09/16/2022 54.9 kg (121 lb) 05/16/2022 55.8 kg (123 lb) 05/12/2022 56 kg (123 lb 8 oz) PHYSICAL EXAMINATION: General appearance: Well appearing, alert, in no acute distress, well-hydrated, well nourished. Skin: Skin color, texture, turgor normal, no suspicious rashes or lesions Head: Normocephalic, no masses, lesions, tenderness or abnormalities Neck: Supple, no adenopathy; thyroid symmetric, normal size, no bruits Lungs: Lungs clear to auscultation. No wheezing, rhonchi, rales Heart: RRR without murmur, gallop, or rubs. No ectopy Abdomen: Normal abdominal exam, Abdomen soft, non-tender. Bowel sounds normal. No masses, organomegaly Extremities: No deformities, edema, skin discoloration, clubbing or cyanosis. Good capillary refill. Musculoskeletal: No joint swelling, deformity, or tenderness MINI-MENTAL STATE EXAMINATION (MMSE) Make the patient comfortable and establish rapport. Ask questions in the order listed. Total possible score is 30. ORIENTATION 1. What is the (year) (season) (date) (day) (month)? Max score=5 Patient's score=5 2. Where are we? (state) (county) (town or city) (hospital) (floor)? Max score=5 Patient's score=5 REGISTRATION Ask the patient if you may test his/her memory. Then say the names of 3 unrelated objects, clearly and slowly, about one second for each (eg, apple, table, cyn). After you have said all 3, ask him/her to repeat them. This first repetition determines the score(0-3), but keep saying them until he/she can repeat all 3, up to 6 trials. Max score=3 Patient's score=3 ATTENTION AND CALCULATION Ask the patient to begin with 100 and count backwards by 7. Stop after 5 subtractions (93, 86, 79, 72, 65). Score the total number of correct answers. If the patient cannot or will not perform the serial 7s task, ask him/her to spell the word WORLD backwards. The score is the number of letters in the correct order (eg, DLROW=5; DLRW=4; DLORW, DLW=3; OW=2; DRLWO=1). Max score=5 Patient's score=4 RECALL Ask the patient to recall the 3 items repeated above (eg, apple, table, cyn). Max score=3 Patient's score=3 LANGUAGE Naming: Show the patient a wristwatch and ask him/her what it is. Repeat for pencil. Max score=2 Patient's score=2 Repetition: Ask the patient to repeat the phrase No ifs, ands, or buts: after you. Max score=1 Patient's score=1 3-Stage Command: Give the patient a piece of blank paper and ask him/her to take a piece of paper in your right hand, fold it in half, put it on the floor. Score 1 point for each part correctly executed. Max score=3 Patient's score=3 Reading: On a blank piece of paper, print the sentence CLOSE YOUR EYES in letters large enough for the patient to see clearly. Ask him/her to read it and do what it says. Score 1 point only if he/sheactually closes his/her eyes. Max score=1 Patient's score=1 Writing: Give the patient a blank piece of paper and ask him/her to write a sentence. Do not dictate a sentence; it is to be written spontaneously. It must contain a subject and verb and be sensible.Correct grammar and punctuation are not necessary. Max score=1 Patient's score=1 Copying: Ask the patient to copy the figure of intersecting pentagons exactly as it is. All 10 angles must be present and 2 must intersect to form a 4-sided figure to score 1 point. Tremor and rotation are ignored. Max score=1 Patient's score=1 MAXIMUM TOTAL SCORE = 30 TOTAL SCORE = 29/30 Suggested guideline for determining the severity of cognitive impairment: Mild: MMSE>21 Moderate: MMSE 10-20 Severe: MMSE<9 Expected decline in MMSE scores in untreated mild to moderate Alzheimer's patient is 2 to 4 points per year. *Adapted from Folstein et al.1 and Benjamin and Jazlyn2. (c) 1974, 1997 [employer] Used withpermission. References: 1. Folstein MF, Folstein SE, Marshal [place]. Mini-Mental State: a practical method for grading the cognitive state of patients for the clinician. J Psychiatr Res. 1975; 12:189-198. 2. JR Benjamin, Jazlyn MF, Mini-Mental State Examination (MMSE). Psychopharm Bull. 1988;24:689-692. 3. John JT, Armando FJ, Madonna RD, Manish A, Talat F. Neuropsychological function in Alzheimer's disease: pattern of impairment and rates of progression. Arch Neurol. 1988;45:263-268. 4. Steffi JA, Chery B,Ryan S-P, Puja MENEZES. Predictors of cognitive and functional progression in patients with probable Alzheimer's disease. Neurology. 1992;42:9293-0614. ASSESSMENT/PLAN: 1. Forgetfulness - ICD9: 780.99, ICD10: R68.89 (primary diagnosis) - work up negative. Discussed staying active. Some may be related to focus - Red flags for re-assessment reviewed with patient in detail. /. 2. Essential hypertension - ICD9: 401.9, ICD10: I10 - Controlled - Continue current medications 3. SVT (supraventricular tachycardia) (HCC) - ICD9: 427.89, ICD10: I47.1 - stable 4. Obstructive cardiomyopathy (HCC) - ICD9: 425.4, ICD10: I42.8 - stable. Markus Rascon MD [facility] History of Present illness Narrative* Shanita May Jackson PA-C - 09/26/2022 10:04 AM EDT Patient: Vandana Mitchell PCP: Markus Rascon MD CC: asthma HPI: Vandana Mitchell 72 year old female non-smoker with PMH significant for HTN, MGUS, HCOM, asthma and restrictive 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. Clinical history consistent with airways diseasebut definitve CARL testing not performed due to the severity of her baseline restriction. Patient was unable to perform exhaled nitric oxide in the past despite multiple attempts. Since the last Pulmonary Clinic visit 03/22/2022, the patient has not required ED care for exacerbation. There has been no hospital admission for exacerbation. Claims to be consistently compliant with prescribed maintenance Rx Symbicort 2 inhalations twice daily. Rarely requiring rescue bronchodilator use. Minimal cough. No sputum or hemoptysis. No wheezing, shortness of breath, or chest pain/tightness. No lower extremity edema. States overall she is well controlled. Reports that last summer she had issues, but has been great throughout the fall and winter. PAST MEDICAL HISTORY Diagnosis Date Arthritis Diastolic dysfunction Grade I Disorder of bone and cartilage, unspecified Diverticulosis 2009 colonoscopy History of transfusion HOCM (hypertrophic obstructive cardiomyopathy) (HCC) Insomnia, unspecified Melanocytic Nevocellular Nevi pigmented moles of trunk: back mainly 08/02/2011 Mitral valve disorders Monoclonal gammopathy 04/2017 Other diseases of lung, not elsewhere classified restrictive lung disease Other pulmonary embolism and infarction 07/25/2012 ? had pe with normal d dimer. saw pulmonary. not convinced she did have one. Renal cyst Small airways disease Possible asthma. Patient unable to perform definitive test Unspecified essential hypertension Allergies: Amoxicillin Rash Asa [Salicylates] Swelling Comment:lip swelling Diclofenac Shortness of Breath Iodine Shortness of Breath Monistat 1 [Tiocona* Other: See Comments Comment:Burning Shell Fish [Other] Anaphylaxis Metoprolol Intolerance Comment:SOB budesonide-formoterol (SYMBICORT) 160-4.5 mcg/actuation inhaler^Inhale 2 Puffs as instructed twice daily.^Disp: 10.2 g^Rfl: 5 albuterol HFA (VENTOLIN HFA) 90 mcg/actuation inhaler^Inhale 2 Puffs as instructed every 4 hours asneeded for wheezing/shortness of breath.^Disp: 1 Each^Rfl: 3 calcium citrate (CITRACAL ORAL)^Take by mouth.^Disp: ^Rfl: clindamycin (CLEOCIN T) 1 % gel^Apply to affected area once daily.^Disp: 60 g^Rfl: 2 dilTIAZem CD (CARDIZEM CD) 180 mg 24 hr capsule^Take 1 capsule by mouth once daily.^Disp: 30 capsule^Rfl: 5 denosumab (PROLIA) 60 mg/mL^Inject subcutaneously once every 6 months.^Disp: ^Rfl: melatonin 3 mg tablet^Take 3 mg by mouth. qhs^Disp: ^Rfl: acetaminophen 325 mg cap^Take by mouth as needed.^Disp: ^Rfl: MULTIVITAMIN ORAL^Take 1 tablet by mouth once daily.^Disp: ^Rfl: calcium, elemental, tab^Take 1 tablet by mouth twice daily.^Disp: ^Rfl: 0 Social History Tobacco Use Smoking status: Never Smokeless tobacco: Never Tobacco comments: Father smoked in childhood home. Spouse does not smoke. Vaping Use Vaping Use: Never used Substance Use Topics Alcohol use: Yes Alcohol/week: 1.7 standard drinks Comment: Occasionally. Drug use: No Family History Problem Relation Age of Onset Colon Cancer Mother 56 Hypertension Mother Colon Cancer Father Diabetes Father Hypertension Maternal Grandmother PAST SURGICAL HISTORY Procedure Laterality Date BACK SURGERY HX BIOPSY BREAST OPEN INCISIONAL left Bx of breast, incisional COLONOSCOPY FLX DX W/COLLJ SPEC WHEN PFRMD 10/27/2004 Colonoscopy COLONOSCOPY FLX DX W/COLLJ SPEC WHEN PFRMD 02/22/2010 Colonoscopy COLONOSCOPY FLX DX W/COLLJ SPEC WHEN PFRMD 03/19/2015 Colonoscopy CORRECT BUNION,SIMPLE CORRECTION HAMMERTOE EYE SURGERY HX PAST SURGICAL HISTORY OF scoliosis surgery PAST SURGICAL HISTORY OF laser kidney stone TONSILLECTOMY HX TONSILLECTOMY PRIMARY/SECONDARY <AGE 11 Tonsillectomy I reviewed the past medical history, family history, social history and surgical history with changes noted above and updated in EMR. IMMUNIZATIONS Prevnar - 06/23/2014 Pneumovax 23 - 08/19/2018, 09/13/2000 Influenza - 03/18/2022 COVID-19 - 12/20/2021, 08/26/2020, 07/29/2020, 03/25/2022 ROS: General: No fevers, chills, or unintentional loss. Appetite good. Eyes, Ears, nose, throat: No post nasal drip, rhinorrhea, purulent nasal discharge, epistaxis. No hoarseness. Vision stable. Cardiac: No angina, edema, orthopnea. Resp: See HPI. GI: No heartburn, dysphagia. Musculoskeletal: No pain. Neuro: No headache, focal weakness, tremor. Skin: No rash. Otherwise negative. PHYSICAL EXAMINATION: BP 144/82 Pulse 88 Resp 16 Wt 54.4 kg (120 lb) SpO2 95% BMI 21.60 kg/m Gen: No acute distress. Cooperative with examination. HEENT: Normocephalic. Sclera, conjunctiva clear. Oral hygeine and dentition good. No thrush. Resp: No stridor, accessory respiratory muscle use, supra-sternal or intercostal retractions. No wheezes, crackles. CV: Regular rythm. Heart tones normal. Radial pulses normal. Abd: Non distended. MSK: No kyphoscoliosis. Ext: Warm and well perfused. No clubbing, cyanosis, edema. Skin: No rash, ecchymoses. Neuro: Mental status normal. Affect normal. No tremor. DATA: PFT, 12/08/2020 IMPRESSION: The TLC is reduced indicating mild restriction. Electronically Signed On 12-08-2020 13:52:09 EDT by Nain Campbell M.D. PFT, 11/30/2020 IMPRESSION: Spirometry shows no obstruction.The reduced FVC suggests restriction. Recommend lung volumes if clinically indicated. The presence of a reduced lung diffusion capacity - that normalizes when measured independent of alveolar volume (kCO) is consistent with a nonparenchymal disorder but does not rule out parenchymal or pulmonary vascular disorder. Electronically Signed On 11-30-2020 16:02:36 EDT by Nain Campbell M.D. CT chest, 01/21/2022 IMPRESSION: No suspicious mass or adenopathy in the chest Scoliosis Comparison: CT scans of 07/22/2012 RESULT: Limitations: None. Lines, tubes, and devices: None. Lung parenchyma and airways: No consolidation. No suspicious pulmonary nodule. The central airways are patent. Pleural space: No pleural effusion. No pleural thickening. Lower neck, lymph nodes, and mediastinum: The imaged thyroid gland is normal. No lymphadenopathy in the supraclavicular, axillary, mediastinal, or hilar regions. Heart, pericardium, and thoracic vessels: The thoracic aorta and main pulmonary artery are normal in caliber. The cardiac chambers are normal in size. No coronary artery atherosclerotic calcifications are noted, although the study is not optimized for coronary assessment. No pericardial effusion or thickening. Bones and soft tissues: No destructive bone lesion. Chest wall is unremarkable. Severe degenerative change and scoliosis Upper abdomen: Scans through the abdomen and pelvis are dictated separately Echocardiogram, 10/15/2021 CONCLUSIONS: - Technically difficult exam due to suboptimal positioning, body habitus and lung interference. - Exam indication: HOCM - The left ventricle is normal in size. Left ventricular systolic function is normal. EF = 71 5% (2D biplane) Grade I left ventricular diastolic dysfunction. - The right ventricle is normal in size. Right ventricular systolic function is normal. - Mild MELISSA at rest with an LVOT gradient of 4 mmHg. With valsalva LVOT gradient increased to 23 mmHg. - Exam was compared with the prior echocardiographic exam performed on 07/16/2019, no significant change. SSMENT/PLAN: 1. Mild intermittent asthma without complication - ICD9: 493.90, ICD10: J45.20 (primary diagnosis) Symptomatically doing well with Symbicort and as needed Albuterol. Will re-assess during the summer months since that seems to be a trigger. 2. Restrictive 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 - ICD9: 518.89, 737.43, ICD10: J98.4, M41.9 Severe restrictive lung disease due to chest cage abnormality without evidence of atelectasis on CTchest. No specific therapy. Shanita Jackson PA-C documented in this encounterProm[facility] Miscellaneous Notes* Telephone Encounter - Markus Rascon MD - 09/19/2022 8:14 AM EDT Labs are ok other than sugars are slightly up. Recheck a1c. documented in this encounterPromedica [facility]04-14-[facility]23 History of Present illness Narrative* Markus Rascon MD - 09/16/2022 11:02 AM EDT Patient presents with: Hypertension: Home cuff validated Basal Cell Carcinoma: Seeing Dr Gaona Osteoporosis: Has lab orders for Dr Null HPI: Patient presents today for office visit for follow up. HTN: Patient is compliant with meds Yes Monitors bp at home: Yes. Home cuff validated today. Brings home readings to office with her. They are all good. Denies side effects: Yes. Chest pain: No. Dyspnea: No. Edema: wears stockings. Palpitations: No. Syncope: No. Headache: No. Dizziness: No. Has recently hematology, endo, cardiology and pulmonary and urogyn. Had her lip worked on. Worried about her memory. Her feels she is mine. Has had some issues remembering if she is taking her meds or not. Has issues sometimes getting flustered with paperwork etc. No issues with daily tasks. Not getting lost. Denies feeling stressed or anxious Depression Screening 09/16/2021 03/18/2022 05/11/2022 09/16/2022 PHQ-2 Score 1 0 0 0 PHQ-9 Score - - - - MELVIN-2 Total Score - - - - Depression screening tool completed and reviewed. Based on score and interview, patient is not at risk for depression. Screening tool discussed with patient, and I recommended no further interventionat this time. MEDICATIONS: Current Outpatient Medications Medication Sig calcium citrate (CITRACAL ORAL) Take by mouth. budesonide-formoterol (SYMBICORT) 160-4.5 mcg/actuation inhaler Inhale 2 Puffs as instructed twice daily. dilTIAZem CD (CARDIZEM CD) 180 mg 24 hr capsule Take 1 capsule by mouth once daily. denosumab (PROLIA) 60 mg/mL Inject subcutaneously once every 6 months. albuterol HFA (VENTOLIN HFA) 90 mcg/actuation inhaler Inhale 2 Puffs as instructed every 4 hours asneeded for wheezing/shortness of breath. acetaminophen 325 mg cap Take by mouth as needed. MULTIVITAMIN ORAL Take 1 tablet by mouth once daily. melatonin 3 mg tablet Take 3 mg by mouth. qhs calcium, elemental, tab Take 1 tablet by mouth twice daily. Current Facility-Administered Medications Medication Dose Route Frequency perflutren lipid microspheres 1.3 mL in NaCl (PF) 0.9% 10 mL injection (DEFINITY) INTRAVENOUS DIRECTED PRN sodium chloride 0.9 % (flush) 10 mL (BD POSIFLUSH) 10 mL INTRAVENOUS DIRECTED PRN ALLERGIES: ALLERGIES Allergen Reactions Amoxicillin Rash Asa [Salicylates] Swelling lip swelling Diclofenac Shortness of Breath Iodine Shortness of Breath Monistat 1 [Tiocona* Other: See Comments Burning Shell Fish [Other] Anaphylaxis Metoprolol Intolerance SOB PAST MEDICAL HISTORY Diagnosis Date Arthritis Diastolic dysfunction Grade I Disorder of bone and cartilage, unspecified Diverticulosis 2009 colonoscopy History of transfusion HOCM (hypertrophic obstructive cardiomyopathy) (HCC) Insomnia, unspecified Melanocytic Nevocellular Nevi pigmented moles of trunk: back mainly 08/02/2011 Mitral valve disorders Monoclonal gammopathy 04/2017 Other diseases of lung, not elsewhere classified restrictive lung disease Other pulmonary embolism and infarction 07/25/2012 ? had pe with normal d dimer. saw pulmonary. not convinced she did have one. Renal cyst Small airways disease Possible asthma. Patient unable to perform definitive test Unspecified essential hypertension PAST SURGICAL HISTORY Procedure Laterality Date BACK SURGERY HX BIOPSY BREAST OPEN INCISIONAL left Bx of breast, incisional COLONOSCOPY FLX DX W/COLLJ SPEC WHEN PFRMD 10/27/2004 Colonoscopy COLONOSCOPY FLX DX W/COLLJ SPEC WHEN PFRMD 02/22/2010 Colonoscopy COLONOSCOPY FLX DX W/COLLJ SPEC WHEN PFRMD 03/19/2015 Colonoscopy CORRECT BUNION,SIMPLE CORRECTION HAMMERTOE EYE SURGERY HX PAST SURGICAL HISTORY OF scoliosis surgery PAST SURGICAL HISTORY OF laser kidney stone TONSILLECTOMY HX TONSILLECTOMY PRIMARY/SECONDARY <AGE 12 Tonsillectomy FAMILY HISTORY Problem Relation Age of Onset Colon Cancer Mother 56 Hypertension Mother Colon Cancer Father Diabetes Father Hypertension Maternal Grandmother Social History Tobacco Use Smoking status: Never Smokeless tobacco: Never Tobacco comments: Father smoked in childhood home. Spouse does not smoke. Vaping Use Vaping Use: Never used Substance Use Topics Alcohol use: Yes Alcohol/week: 1.7 standard drinks Comment: Occasionally. Drug use: No Reviewed current medications, allergies, past medical history, surgical history, family history andsocial history today. REVIEW OF SYSTEMS All other reviewed and negative other than HPI. HEALTH MAINTENANCE: Reviewed health maintenance issues today and recommended the following in detail. BP CONTROLLED (<130/80) Never done SHINGRIX VACCINE(2 of 3) due on 06/25/2012 ADVANCE DIRECTIVE DISCUSSION- on file DEPRESSION ASSESSMENT due on 06/05/2022 MAMMOGRAM - getting done per c d stripper. VITALS: BP 142/72 Pulse 102 Wt 54.9 kg (121 lb) SpO2 96% BMI 21.78 kg/m Last 4 Encounter Wt Readings: Date: Wt: 09/16/2022 54.9 kg (121 lb) 05/16/2022 55.8 kg (123 lb) 05/12/2022 56 kg (123 lb 8 oz) 03/22/2022 55.3 kg (122 lb) PHYSICAL EXAMINATION: General appearance: Well appearing, alert, in no acute distress, well-hydrated, well nourished. Skin: Skin color, texture, turgor normal, no suspicious rashes or lesions Head: Normocephalic, no masses, lesions, tenderness or abnormalities Lungs: Lungs clear to auscultation. No wheezing, rhonchi, rales Heart: RRR without murmur, gallop, or rubs. No ectopy Abdomen: Normal abdominal exam, Abdomen soft, non-tender. Bowel sounds normal. No masses, organomegaly Extremities: No deformities, edema, skin discoloration, clubbing or cyanosis. Good capillary refill. Musculoskeletal: No joint swelling, deformity, or tenderness Peripheral pulses: Normal Neuro: Gait normal. Reflexes normal and symmetric. Sensation grossly intact. Able to recall three objects. Alert and oriented x 3. ASSESSMENT/PLAN: 1. Osteoporosis, unspecified - ICD9: 733.00, ICD10: M81.0 (primary diagnosis) - Reviewed the need for Calcium and Vitamin D supplements and weight bearing exercise as tolerated - COMP METABOLIC PANEL - VITAMIN D 25 HYDROXY - DXA-AXIAL SKELETON 2. Vitamin D deficiency - ICD9: 268.9, ICD10: E55.9 - check labs. - VITAMIN D 25 HYDROXY - DXA-AXIAL SKELETON 3. Essential hypertension - ICD9: 401.9, ICD10: I10 - good control - Recommended regular aerobic exercise. - Recommend home blood pressure monitoring, to bring results in on next visit - better on home bp and cuff is validated. - Goal of BP <130/80 4. Obstructive cardiomyopathy (HCC) - ICD9: 425.4, ICD10: I42.8 - per cardio 5. HOCM (hypertrophic obstructive cardiomyopathy) (HCC) - ICD9: 425.11, ICD10: I42.1 - per cardio 6. SVT (supraventricular tachycardia) (HCC) - ICD9: 427.89, ICD10: I47.1 - stable. 7. Mild intermittent asthma without complication - ICD9: 493.90, ICD10: J45.20 - per pulmonary 8. Restrictive 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 - ICD9: 518.89, 737.43, ICD10: J98.4, M41.9 - stable. 9. Cyst of kidney, acquired - ICD9: 593.2, ICD10: N28.1 - per urogyn. 10. Monoclonal gammopathy - ICD9: 273.1, ICD10: D47.2 - per hematology 11. Age-related osteoporosis without current pathological fracture - ICD9: 733.01, ICD10: M81.0 - continue prolia. 12. Family history of colon cancer - ICD9: V16.0, ICD10: Z80.0 - is up to date. 13. Bilateral carotid artery stenosis - ICD9: 433.10, 433.30, ICD10: I65.23 - US CAROTID ARTERIES [facility] 14. Mild memory disturbance - ICD9: 780.93, ICD10: R41.3 - will follow. Consider imaging and mmse if continues or worsens. - CBC + DIFF - TSH BLD - VITAMIN B12 BLOOD - FOLATE SERUM - SYPHILIS TOTAL W/REFLEX Markus Rascon Requests creams for her nose-cleocin she has used for years. RTO in two months and prn. documented in this encounterProm[facility] Miscellaneous Notes* Telephone Encounter - Shanita Alston LPN - 07/14/2022 10:15 AM EST Clearance form received from [facility]. Form placed in Dr. Nolasco's door box, form also scanned in. Shanita Alston LPN documented in this encounterProm[facility]12-12-[facility]22 History of Present illness Narrative* Clary Nolasco MD - 05/16/2022 4:59 PM EST Images from the original note were not included. Clary Nolasco MD Interventional Cardiology [facility] [address], [place] [address] [phone] Chief Complaint Patient presents with: Established Patient Follow-Up HISTORY OF PRESENT ILLNESS: Ms. Mitchell is a 72 year old female seen in my office today for assessment and management patient was diagnosed with hypertrophic cardiomyopathy with LVH and LVOT gradient with systolic anterior motion treated with calcium channel blockers Is doing well from the cardiac point of view asymptomatic mild dyspnea on exertion EKG shows multiple PVCs normal sinus rhythm with first-degree heart block Cardiac Risk Factors age (male over 45, female over 55), hypertension PAST MEDICAL HISTORY Diagnosis Date Arthritis Diastolic dysfunction Grade I Disorder of bone and cartilage, unspecified Diverticulosis 2009 colonoscopy History of transfusion HOCM (hypertrophic obstructive cardiomyopathy) (HCC) Insomnia, unspecified Melanocytic Nevocellular Nevi pigmented moles of trunk: back mainly 08/02/2011 Mitral valve disorders Monoclonal gammopathy 04/2017 Other diseases of lung, not elsewhere classified restrictive lung disease Other pulmonary embolism and infarction 07/25/2012 ? had pe with normal d dimer. saw pulmonary. not convinced she did have one. Renal cyst Small airways disease Possible asthma. Patient unable to perform definitive test Unspecified essential hypertension PAST SURGICAL HISTORY Procedure Laterality Date BACK SURGERY HX BIOPSY BREAST OPEN INCISIONAL left Bx of breast, incisional COLONOSCOPY FLX DX W/COLLJ SPEC WHEN PFRMD 10/27/2004 Colonoscopy COLONOSCOPY FLX DX W/COLLJ SPEC WHEN PFRMD 02/22/2010 Colonoscopy COLONOSCOPY FLX DX W/COLLJ SPEC WHEN PFRMD 03/19/2015 Colonoscopy CORRECT BUNION,SIMPLE CORRECTION HAMMERTOE EYE SURGERY HX PAST SURGICAL HISTORY OF scoliosis surgery PAST SURGICAL HISTORY OF laser kidney stone TONSILLECTOMY HX TONSILLECTOMY PRIMARY/SECONDARY <AGE 12 Tonsillectomy FAMILY HISTORY Problem Relation Age of Onset Colon Cancer Mother 56 Hypertension Mother Colon Cancer Father Diabetes Father Hypertension Maternal Grandmother Social History Tobacco Use Smoking status: Never Smokeless tobacco: Never Tobacco comments: Father smoked in childhood home. Spouse does not smoke. Vaping Use Vaping Use: Never used Substance Use Topics Alcohol use: Yes Alcohol/week: 1.7 standard drinks Comment: Occasionally. Drug use: No ALLERGIES Allergen Reactions Amoxicillin Rash Asa [Salicylates] Swelling lip swelling Diclofenac Shortness of Breath Iodine Shortness of Breath Monistat 1 [Tiocona* Other: See Comments Burning Shell Fish [Other] Anaphylaxis Metoprolol Intolerance SOB Medications: Current Outpatient Medications Medication Sig Dispense Refill dilTIAZem CD (CARDIZEM CD) 180 mg 24 hr capsule Take 1 capsule by mouth once daily. 30 capsule 5 budesonide-formoterol (SYMBICORT) 160-4.5 mcg/actuation inhaler Inhale 2 Puffs as instructed twice daily. 10.2 g 5 denosumab (PROLIA) 60 mg/mL Inject subcutaneously once every 6 months. albuterol HFA (VENTOLIN HFA) 90 mcg/actuation inhaler Inhale 2 Puffs as instructed every 4 hours asneeded for wheezing/shortness of breath. 1 Each 3 melatonin 3 mg tablet Take 3 mg by mouth. qhs acetaminophen 325 mg cap Take by mouth as needed. MULTIVITAMIN ORAL Take 1 tablet by mouth once daily. calcium, elemental, tab Take 1 tablet by mouth twice daily. 0 Current Facility-Administered Medications Medication Dose Route Frequency Provider Last Rate Last Admin perflutren lipid microspheres 1.3 mL in NaCl (PF) 0.9% 10 mL injection (DEFINITY) INTRAVENOUS DIRECTED PRN Debbie Constantino APRN.LIVESTOCK SHOWMAN sodium chloride 0.9 % (flush) 10 mL (BD POSIFLUSH) 10 mL INTRAVENOUS DIRECTED PRN Debbie Constantino APRN.LIVESTOCK SHOWMAN Review of Systems Constitutional: Negative for chills, diaphoresis, fever, malaise/fatigue and weight loss. HENT: Negative for congestion, ear discharge, ear pain, hearing loss, nosebleeds, sinus pain, sore throat and tinnitus. Eyes: Negative for blurred vision, double vision, photophobia, pain, discharge and redness. Respiratory: Negative for cough, hemoptysis, sputum production, shortness of breath, wheezing and stridor. Cardiovascular: Negative for chest pain, palpitations, orthopnea, claudication, leg swelling and PND. Gastrointestinal: Negative for abdominal pain, blood in stool, constipation, diarrhea, heartburn, melena, nausea and vomiting. Genitourinary: Negative for dysuria, flank pain, frequency, hematuria and urgency. Musculoskeletal: Negative for back pain, falls, joint pain, myalgias and neck pain. Skin: Negative for itching and rash. Neurological: Negative for dizziness, tingling, tremors, sensory change, speech change, focal weakness, seizures, loss of consciousness, weakness and headaches. Endo/Heme/Allergies: Negative for environmental allergies and polydipsia. Does not bruise/bleed easily. Psychiatric/Behavioral: Negative for depression, hallucinations, memory loss, substance abuse and suicidal ideas. The patient is not nervous/anxious and does not have insomnia. Physical Examination: Vitals:BP 140/70 Pulse 83 Wt 123 lb (55.8kg) BP w/Orthostatic Vitals Date and Time Orthostatic BP Orthostatic Pulse BP Pulse BP Position BP Site BP Cuff Size 05/16/22 1402 -- -- 140/70 83 Sitting Right Arm Regular Adult Last 2 Encounter Wt Readings: Date: Wt: 05/16/2022 55.8 kg (123 lb) 05/12/2022 56 kg (123 lb 8 oz) Physical Exam Constitutional: General: She is not in acute distress. Appearance: She is not diaphoretic. HENT: Head: Normocephalic and atraumatic. Right Ear: External ear normal. Left Ear: External ear normal. Nose: Nose normal. Mouth/Throat: Pharynx: Oropharynx is clear. Eyes: General: Right eye: No discharge. Left eye: No discharge. Conjunctiva/sclera: Conjunctivae normal. Pupils: Pupils are equal, round, and reactive to light. Cardiovascular: Rate and Rhythm: Normal rate and regular rhythm. Heart sounds: Normal heart sounds, S1 normal and S2 normal. No murmur heard. No friction rub. No gallop. No S3 or S4 sounds. Pulmonary: Effort: Pulmonary effort is normal. No respiratory distress. Breath sounds: Normal breath sounds. No wheezing or rales. Chest: Chest wall: No tenderness. Musculoskeletal: General: Normal range of motion. Cervical back: Normal range of motion and neck supple. Skin: General: Skin is warm and dry. Neurological: Mental Status: She is alert and oriented to person, place, and time. Psychiatric: Mood and Affect: Mood normal. Thought Content: Thought content normal. Pertinent Labs: CBC: Hemoglobin (g/dL) Date Value 05/05/2022 12.6 05/05/2021 12.9 Hematocrit (%) Date Value 05/05/2022 39.6 05/05/2021 40.3 WBC (k/uL) Date Value 05/05/2022 6.83 05/05/2021 10.73 Platelet Count (k/uL) Date Value 05/05/2022 259 05/05/2021 270 BMP: Glucose (mg/dL) Date Value 05/05/2022 99 05/05/2021 95 Potassium (mmol/L) Date Value 05/05/2022 3.8 05/05/2021 3.3 Sodium (mmol/L) Date Value 05/05/2022 137 05/05/2021 139 Chloride (mmol/L) Date Value 05/05/2022 100 05/05/2021 101 CO2 (mmol/L) Date Value 05/05/2022 29 05/05/2021 27 Creatinine (mg/dL) Date Value 05/05/2022 0.67 05/05/2021 0.68 BUN (mg/dL) Date Value 05/05/2022 20 05/05/2021 16 Anion Gap (mmol/L) Date Value 05/05/2022 8 05/05/2021 11 Calcium (mg/dL) Date Value 05/05/2021 9.6 Calcium, Total (mg/dL) Date Value 05/05/2022 9.7 INR: Lipid Profile: Cholesterol, Total Date Value Ref Range Status 12/22/2021 194 <200 mg/dL Final Comment: <200 mg/dL, Desirable 200-239 mg/dL, Borderline high >239 mg/dL, High HDL Cholesterol Date Value Ref Range Status 12/22/2021 53 >39 mg/dL Final Comment: 40-59 mg/dL, Acceptable >59 mg/dL, High: Negative risk factor for coronary heart disease <40 mg/dL, Low: Positive risk factor for coronary heart disease LDL Cholesterol Date Value Ref Range Status 12/22/2021 125 (H) <100 mg/dL Final Comment: <100 mg/dL, Optimal 100-129 mg/dL, Near optimal/above optimal 130-159 mg/dL, Borderline high 160-189 mg/dL, High >189 mg/dL, Very high Secondary prevention optimal LDL Cholesterol levels are recommended to be < 70 mg/dL Triglyceride Date Value Ref Range Status 12/22/2021 79 <150 mg/dL Final Comment: <150 mg/dL, Normal 150-199 mg/dL, Borderline high 200-499 mg/dL, High >499 mg/dL, Very high Hemoglobin A1C: No results found for: HGBA1C TSH: No results found for: TSHREFL Prior Cardiac Testing Echo Assessment and Plan: 72 years old female patient with history of hypertrophic cardiomyopathy clinical examination unremarkable She is on appropriate dose for rate control Hypertrophic cardiomyopathy With LVOT gradient 12 Valsalva and exercise Recent resting echocardiography shows no gradient Follow up planning: One year Electronically signed by Clary Nolasco MD on May 16, 2022, 4:59 PM The above note was partially created using a dictation recognition software. A reasonable attempt has been made to correct any errors. documented in this encounterProm[facility]12-08-[facility]22 History of Present illness Narrative* Danny Oneill, DO - 05/12/2022 9:18 AM EST Diagnosis: 1) IgG lambda MGUS. HPI: Patient is a 72-year-old female who has past medical history significant for osteoporosis, possible renal lithiasis, HOCM and HTN. Over the 3 years prior to referral here, she had rather significant blistering and erythema with any type of insect bite. She's also had two localized rashes which have cleared. She was therefore undergoing dermatologic evaluation for these issues and she therefore underwent screening blood work. Was found to have monoclonal gammopathy with an M spike concentration of 0.42 g/dL. Immunofixation revealed IgG lambda monoclonal protein. Urine electrophoresis was negative. CBC was unremarkable. The white count was 6850 with a normal differential. Hemoglobin 14 g/dL. Platelet count 291,000. She had right shoulder and b/l hip pain that has been worked up. She was undergoing physical therapy for her shoulder. Plain films showed degenerative changes at the AC joint. No evidence of lytic lesions in the visualized bone structure in that area. She was also under the care of orthopedic surgery center for the hip pain. She has a history of scoliosis and had Lozada rods placed in 1963. Since then, she's been told one of the pins has worked loose. She also had bone graft donor site fromthe left pelvis for one of the vertebral bones. Bone survey on 03/30/2017 revealed no evidence of lesion or other pathologic bone lesion. Presents for ongoing hematologic management. Interim history: Wast started on q 6 month Prolia. Still has occasional numbness under left eye. No other symptoms of peripheral neuropathy. No persistent MS pain. PMH, medications and allergies personally reviewed by me today. Any changes documented in appropriate section. ROS: Constitutional: No recent or recurrent episodes of fever. No drenching night sweats. Normal appetite. Normal energy. Neuro: Denies LARA, vertigo, dizziness and imbalance. HEENT: No recent change in voice, vision or hearing. Resp: Denies cough, wheeze and hemoptysis. Denies shortness of breath at rest. Has chronic dyspnea with exertion secondary to restrictive physiology from scoliosis. CVS: Denies exertional chest pain, PND, orthopnea and LE edema. GI: Denies dysgeusia. Denies symptoms of stomatitis. Denies dysphagia and odynophagia. Denies reflux, n/v, change in bowel habits and abdominal pain. : Denies dysuria or gross hematuria. No symptoms of bladder outlet obstruction. Endo: Denies hot flashes. Denies polyuria and polydipsia. Denies heat and cold intolerance. Musculoskeletal: See above. Derm: Denies rash. Denies jaundice and diffuse pruritis. Heme: Denies unusual bleeding and unexplained bruising. Psych: Normal mood. PHYSICAL EXAM: Vitals: Blood pressure 144/77, pulse 89, temperature 36.8 C (98.3 F), weight 56 kg (123 lb 8 oz). Well-appearing and in no acute distress. EYES: Sclerae are anicteric bilaterally. NECK: Supple. LYMPHATIC: There is no palpable cervical, supraclavicular adenopathy. RESPIRATORY: Inspiratory breath sounds are of normal left and diminished on right. CARDIOVASCULAR: Rhythm is regular. Normal intensity S1/S2. There is no gallop or murmur. ABDOMEN: The abdomen is nondistended. No organomegaly. No tenderness. Extremities: No swelling or edema. SKIN: No jaundice or rash. No petechiae. 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 No focal motor weakness. MUSCULOSKELETAL: Kyphoscoliosis. LABS: Component Latest Ref Rng & Units 05/05/2022 WBC 3.70 - 11.00 k/uL 6.83 RBC 3.90 - 5.20 m/uL 4.88 Hemoglobin 11.5 - 15.5 g/dL 12.6 Hematocrit 36.0 - 46.0 % 39.6 MCV 80.0 - 100.0 fL 81.1 MCH 26.0 - 34.0 pg 25.8 (L) MCHC 30.5 - 36.0 g/dL 31.8 RDW-CV 11.5 - 15.0 % 14.9 Platelet Count 150 - 400 k/uL 259 MPV 9.0 - 12.7 fL 9.8 Neut% % 67.2 Abs Neut (ANC) 1.45 - 7.50 k/uL 4.59 Lymph% % 19.6 Abs Lymph 1.00 - 4.00 k/uL 1.34 [place]% % 9.4 Abs [place] <0.87 k/uL 0.64 Eosin% % 1.9 Abs Eosin <0.46 k/uL 0.13 Baso% % 1.6 Abs Baso <0.11 k/uL 0.11 (H) Immature Gran % % 0.3 IMMATURE GRANS (ABS) <0.10 k/uL <0.03 NRBC /100 WBC 0.0 Absolute nRBC <0.01 k/uL <0.01 DTYPE Auto Protein, Total 6.3 - 8.0 g/dL 7.2 Albumin 3.9 - 4.9 g/dL 4.6 Calcium 8.5 - 10.2 mg/dL 9.7 Bilirubin, Total 0.2 - 1.3 mg/dL 0.3 Alkaline Phosphatase 34 - 123 U/L 62 AST 13 - 35 U/L 21 ALT 7 - 38 U/L 15 Glucose 74 - 99 mg/dL 99 BUN 7 - 21 mg/dL 20 Creatinine 0.58 - 0.96 mg/dL 0.67 Sodium 136 - 144 mmol/L 137 Potassium 3.7 - 5.1 mmol/L 3.8 Chloride 97 - 105 mmol/L 100 CO2 22 - 30 mmol/L 29 Anion Gap 9 - 18 mmol/L 8 (L) eGFR >=60 mL/min/1.73m 92 B2 Microglobulin <3.1 mg/L 2.3 Component Latest Ref Rng & Units 02/28/2017 04/02/2018 03/19/2019 04/08/2020 05/05/2021 05/05/2022 Protein, Total 6.3 - 8.0 g/dL 7.2 7.7 7.3 7.5 7.1 Albumin 3.43 - 5.41 g/dL 4.01 4.12 3.97 4.07 4.05 4.22 Alpha 1 Globulin 0.18 - 0.43 g/dL 0.16 (L) 0.20 0.20 0.23 0.20 0.30 Alpha 2 Globulin 0.42 - 0.98 g/dL 0.73 0.83 0.78 0.85 0.78 0.77 Beta Globulin 0.61 - 1.17 g/dL 1.00 1.04 1.02 1.04 0.94 0.74 Gamma Globulin 0.53 - 1.51 g/dL 1.30 1.50 (H) 1.32 1.32 1.13 0.98 Interpretation (Prot Electro) No definitive M protein is identified on protein electrophoresis. SEECOMMENT SEE COMMENT SEE COMMENT SEE COMMENT SEE COMMENT An M protein is identified on protein electrophoresis. (A) M-Protein Location Gamma fraction Gamma fraction Gamma fraction Gamma fraction Gamma fraction GammaFraction 1 M-Protein Concentration <=0.00 g/dL 0.42 (H) 0.58 (H) 0.55 (H) 0.49 (H) 0.42 (H) 0.36 (H) SPE Staff Review Reviewed by Alberto Tillman MD ([id number]) Reviewed by Tavon Kaur MD ([id number]) Reviewed by Tavon Kaur MD ([id number]) Reviewed by Nain Bell M.D., Ph.D ([id number]) Reviewed by Mel Garcia MD ([id number]) Reviewed by Carmen Holm MD Component Latest Ref Rng & Units 03/30/2017 04/02/2018 04/09/2018 03/19/2019 04/08/20201/482852/06/2021 IgG 717 - 1,411 mg/dL 1,170 IgA 78 - 391 mg/dL 118 IgM 53 - 334 mg/dL 54 [place] Free, Serum 3.3 - 19.4 mg/L 13.7 16.6 13.5 15.7 18.0 14.9 17.6 Lambda Free, Serum 5.7 - 26.3 mg/L 55.7 (H) 66.9 (H) 64.4 (H) 62.2 (H) 88.1 (H) 64.3 (H) 72.1 (H) K/L Ratio, Serum 0.26 - 1.65 0.25 (L) 0.25 (L) 0.21 (L) 0.25 (L) 0.20 (L) 0.23 (L) 0.24 (L) MPA Result No M protein is identified. M protein is present. (A) M protein is present. (A) M protein is present. (A) M protein is present. (A) Interpretation (MPA) SEE COMMENT SEE COMMENT SEE COMMENT SEE COMMENT Staff Review ([facility]) Reviewed by Tavon Kaur MD ([id number]) Reviewed by Tavon Kaur MD ([id number]) Reviewed by Nain Bell M.D., Ph.D ([id number]) Reviewed by Mel Garcia MD ([id number]) MPA IgG, Serum 700 - 1,600 mg/dL 1,430 (H) 1,359 1,212 MPA IgA, Serum 70 - 400 mg/dL 127 146 144 MPA IgM, Serum 40 - 230 mg/dL 58 60 59 Spot urine sample negative for monoclonal M spike on electrophoresis but had detectable IgG withoutlambda light chain on immunofixation. IMAGING: Whole-body bone survey 05/03/2022: IMPRESSION: No osteolytic lesions are noted. Other findings as detailed. PATHOLOGY: FINAL DIAGNOSIS BONE MARROW, ASPIRATE SMEARS, CORE BIOPSY, AND CLOT SECTION, WITH PERIPHERAL BLOOD SMEAR (A-C): - NORMOCELLULAR MARROW (40%) WITH TRILINEAGE HEMATOPOIESIS. - LESS THAN 5% POLYTYPIC PLASMA CELLS. - SEE COMMENT. COMMENT: The patient was recently found to have an IgG lambda paraprotein. Correlation with results of pending conventional cytogenetic analysis is recommended. Unremarkable peripheral blood smear. BONE MARROW ASPIRATE: % Normal (0-2) 0 % Blasts (1-5) 0 % Promyelo (32-72) 57 % Myelos/Metas/Bands/Segs (1-6) 3 % Eosinophils (0-1) 0 % Basophils (0-4) 2 % Monocytes (13-37) 23 % Erythroid precursors (7-23) 14 % Lymphocytes (0-2) 1 % Plasma cells Myeloid/Erythro (1.5-4): 2.7 Cells counted: 500. Iron stain result: Increased. No ring sideroblasts. Specimen quality: Cellular and spicular. Megakaryocytes: Present, with normal morphology. Erythropoiesis: Normoblastic maturation. Granulopoiesis: Normal maturation. BONE MARROW BIOPSY: Adequacy: Suboptimal (fragmented). Cellularity: Normal (40%). ME ratio: Normal. Hematopoiesis: Trilineage maturation. Megakaryocytes: Adequate. Megakaryocyte morphology: Unremarkable. Lymphoid infiltrate: None seen. Bone trabeculae: Focal thinning. Other: Immunohistochemical stains for CD138 and kappa and lambda immunoglobulin light chains were performed to assess plasma cells. CD138 shows less than 5% plasma cells, which are polytypic by kappa/lambda staining. CLOT SECTION: Marrow particles: Many. Morphology: Similar to biopsy. ANCILLARY TESTS: Flow cytometry: Not indicated. Cytogenetics: Karyotype: 46,XX[20] ASSESSMENT/PLAN: (D47.2) Monoclonal gammopathy (primary encounter diagnosis) Assessment: -IgG lambda monoclonal protein with initial M spike concentration at 0.42 g/dL. -No previous evidence of myeloma defining end organ damage and none currently. -Reviewed lab work with her in detail. Stable serum MP. -DXA previously revealed osteoporosis. Receiving q 6 month Prolia. -Had influenza vaccination. Plan: -Labs then OV in about a year. -Recheck in 2 years if okay then. Portions of this documentation were copied and pasted from previous office visit notes in order to provide a cohesive continuity of the history. The note has been reviewed and edited and updated as necessary. During this patient visit I have spent approximately 15 minutes out of 20 in counseling regarding test results and coordinating care. Danny Oneill DO documented in this encounterProm[facility] Nurse Note* Norma Olivier LPN - 05/12/2022 9:17 AM EST Est. Pt, 1 year f/u, discuss recent labs and bone survey Norma Olivier LPN documented in this encounterPromed[facility]11-28-2022 History of Present illness Narrative* RT Bashir(R) - 05/02/2022 1:00 PM EST Radiology Service Progress Note PATIENT NAME: Vandana Mitchell DATE OF SERVICE: May 02, 2022 TIME: 1:40 PM PATIENT IDENTITY VERIFICATION COMPLETED USING TWO (2) IDENTIFIERS: Name and Date of confirmedby patient verbally. FALL SCREENING: Has the patient had 2 falls in the last year or 1 fall with injury or currently using an Ambulatory Assistive Device (Walker, Cane, Wheelchair, Crutches, etc.)? No PATIENT GENDER DATA: Female. status: : No status: NO. PATIENT RELEVANT IMPLANT DATA REVIEWED: Not Applicable RADIOLOGY DEPARTMENT: General X-ray: Exam(s) Completed: Bone Survey PERIPHERAL IV DATA: Not applicable SIGNED BY: RT Bashir(R) May 02, 2022 1:40 PM documented in this encounterPromedica [facility]10-18-2022 History of Present illness Narrative* Nain Campbell MD - 03/22/2022 10:00 AM EDT Images from the original note were not included. . [facility] Note Patient name: Vandana Mitchell PCP: Markus Rascon MD CC: Follow-up asthma HPI: Vandana Mitchell 71 year old female non-smoker with PMH significant for HTN, MGUS, HCOM, asthma,and restrictive 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. Initially evaluated for dyspnea on exertion. Has rather significant restrictive 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. Clinical history consistent with airways disease but definitive methacholine challenge testing not performed due to the severity ofher baseline restriction. Patient was unable to perform exhaled nitric oxide level despite multipleattempts. She was started on Symbicort with as needed albuterol. She states she was doing well until the summer. She had marked shortness of breath with activity. She required regular use of her albuterol which did help with her dyspnea. Denied any allergy symptoms although she has a history of allergies in the past, usually manifested by itchy eyes and throat. She denied any such symptoms and believes that her shortness of breath was related to the weather. Of note, she had laboratory testing done during that period of time which was significant for eosinophilia. Currently she is back to [facility] respiratory status. Denies significant shortness of breath, cough, wheezing, chest pain. Since her last office visit, she has had approximate 10 pound weight loss. Extensive evaluation for possible underlying cancer was negative. Only note of incidental renal cyst. Her has been on a low-carb diet which she has been following as well and may account for her weight loss. DATA: Labs: Component Ref Range & Units 2 mo ago (12/22/21) WBC 3.70 - 11.00 k/uL 9.28 RBC 3.90 - 5.20 m/uL 5.10 Hemoglobin 11.5 - 15.5 g/dL 13.3 Hematocrit 36.0 - 46.0 % 42.4 MCV 80.0 - 100.0 fL 83.1 MCH 26.0 - 34.0 pg 26.1 MCHC 30.5 - 36.0 g/dL 31.4 RDW-CV 11.5 - 15.0 % 13.9 Platelet Count 150 - 400 k/uL 340 MPV 9.0 - 12.7 fL 10.4 Neut% % 58.8 Abs Neut 1.45 - 7.50 k/uL 5.44 Lymph% % 17.2 Abs Lymph 1.00 - 4.00 k/uL 1.60 [place]% % 14.3 Abs [place] <0.87 k/uL 1.33 High Eosin% % 7.3 Abs Eosin <0.46 k/uL 0.68 High Baso% % 2.0 Abs Baso <0.11 k/uL 0.19 High Immature Gran % % 0.4 Abs Immature Gran <0.10 k/uL 0.04 NRBC /100 WBC 0.0 Absolute nRBC <0.01 k/uL <0.01 Diff Type Auto Imaging / Diagnostic Studies: DATE OF EXAM: Jan 21 2022 1:20PM [facility] 0541 - CT CHEST WO IVCON / PROCEDURE REASON: Weight loss EXAMINATION: CHEST CT WITHOUT CONTRAST CLINICAL HISTORY: Weight loss Comparison: CT scans of 07/22/2012 RESULT: Limitations: None. Lines, tubes, and devices: None. Lung parenchyma and airways: No consolidation. No suspicious pulmonary nodule. The central airways are patent. Pleural space: No pleural effusion. No pleural thickening. Lower neck, lymph nodes, and mediastinum: The imaged thyroid gland is normal. No lymphadenopathy in the supraclavicular, axillary, mediastinal, or hilar regions. Heart, pericardium, and thoracic vessels: The thoracic aorta and main pulmonary artery are normal in caliber. The cardiac chambers are normal in size. No coronary artery atherosclerotic calcifications are noted, although the study is not optimized for coronary assessment. No pericardial effusion or thickening. Bones and soft tissues: No destructive bone lesion. Chest wall is unremarkable. Severe degenerative change and scoliosis Upper abdomen: Scans through the abdomen and pelvis are dictated separately I personally reviewed the images as well as with the patient and agree with the above assessment inaddition she has severe scoliosis. PAST MEDICAL HISTORY Diagnosis Date Arthritis Diastolic dysfunction Grade I Disorder of bone and cartilage, unspecified Diverticulosis 2009 colonoscopy History of transfusion HOCM (hypertrophic obstructive cardiomyopathy) (HCC) Insomnia, unspecified Melanocytic Nevocellular Nevi pigmented moles of trunk: back mainly 08/02/2011 Mitral valve disorders Monoclonal gammopathy 04/2017 Other diseases of lung, not elsewhere classified restrictive lung disease Other pulmonary embolism and infarction 07/25/2012 ? had pe with normal d dimer. saw pulmonary. not convinced she did have one. Renal cyst Small airways disease Possible asthma. Patient unable to perform definitive test Unspecified essential hypertension ALLERGIES Allergen Reactions Amoxicillin Rash Asa [Salicylates] Swelling lip swelling Diclofenac Shortness of Breath Iodine Shortness of Breath Monistat 1 [Tiocona* Other: See Comments Burning Shell Fish [Other] Anaphylaxis Metoprolol Intolerance SOB dilTIAZem CD (CARDIZEM CD) 180 mg 24 hr capsule^Take 1 capsule by mouth once daily.^Disp: 30 capsule^Rfl: 5 budesonide-formoterol (SYMBICORT) 160-4.5 mcg/actuation inhaler^Inhale 2 Puffs as instructed twice daily.^Disp: 10.2 g^Rfl: 5 denosumab (PROLIA) 60 mg/mL^Inject subcutaneously once every 6 months.^Disp: ^Rfl: albuterol HFA (VENTOLIN HFA) 90 mcg/actuation inhaler^Inhale 2 Puffs as instructed every 4 hours asneeded for wheezing/shortness of breath.^Disp: 1 Each^Rfl: 3 melatonin 3 mg tablet^Take 3 mg by mouth. qhs^Disp: ^Rfl: acetaminophen 325 mg cap^Take by mouth as needed.^Disp: ^Rfl: MULTIVITAMIN ORAL^Take 1 tablet by mouth once daily.^Disp: ^Rfl: calcium, elemental, tab^Take 1 tablet by mouth twice daily.^Disp: ^Rfl: 0 Social History Tobacco Use Smoking status: Never Smokeless tobacco: Never Tobacco comments: Father smoked in childhood home. Spouse does not smoke. Vaping Use Vaping Use: Never used Substance Use Topics Alcohol use: Yes Alcohol/week: 1.7 standard drinks Comment: Occasionally. Drug use: No FAMILY HISTORY Problem Relation Age of Onset Colon Cancer Mother 56 Hypertension Mother Colon Cancer Father Diabetes Father Hypertension Maternal Grandmother PAST SURGICAL HISTORY Procedure Laterality Date BACK SURGERY HX BIOPSY BREAST OPEN INCISIONAL left Bx of breast, incisional COLONOSCOPY FLX DX W/COLLJ SPEC WHEN PFRMD 10/27/2004 Colonoscopy COLONOSCOPY FLX DX W/COLLJ SPEC WHEN PFRMD 02/22/2010 Colonoscopy COLONOSCOPY FLX DX W/COLLJ SPEC WHEN PFRMD 03/19/2015 Colonoscopy CORRECT BUNION,SIMPLE CORRECTION HAMMERTOE EYE SURGERY HX PAST SURGICAL HISTORY OF scoliosis surgery PAST SURGICAL HISTORY OF laser kidney stone TONSILLECTOMY HX TONSILLECTOMY PRIMARY/SECONDARY <AGE 12 Tonsillectomy PMH, Social history, family history and surgical history reviewed and updated in EMR REVIEW OF SYSTEMS: CONSTITUTIONAL: No fevers, chills, nightsweats. HEENT: Denies nasal congestion/sinus symptoms, problematic allergy problems. EYES: No diplopia or blurry vision, itchy eyes CARDIOVASCULAR: No chest pain, dyspnea, palpitations, orthopnea, PND, edema. PULM: See HPI GI: No dysphagia/odynophagia, problematic reflux, constipation, diarrhea, changes in stool habits : Microscopic hematuria NEURO: No new balance problems, peripheral weakness/paresthesias or numbness of concern. MUSC-SKEL: No new joint pain, swelling, or erythema. INTEGUMENTARY: No new skin changes or rashes PHYSICAL EXAMINATION: BP 138/82 Pulse 85 Resp 14 Wt 122 lb (55.3kg) SpO2 96% General Appearance: Thin elderly female, NAD Skin: Skin color, texture, turgor normal, no suspicious rashes or lesions. Head: Normocephalic, no masses, lesions, tenderness or abnormalities. Eyes: Sclera, conjunctiva normal Oropharynx: Adequate dentition, no oral lesions or thrush Back: Significant scoliosis and mild kyphosis Lungs: Normal to percussion, not labored, no wheezes or crackles Heart: Regular rate and rhythm, no murmurs or gallops Extremities: No edema or clubbing Lymph Nodes: No cervical lymphadenopathy and No supraclavicular lymphadenopathy. Assessment/Plan: 1. Mild intermittent asthma, uncomplicated -Symptomatology during summer months concerning for exacerbation of her asthma due to allergies. Currently doing well -Continue Symbicort 160/4.5 with as needed albuterol -Monitor symptoms, may need allergy treatment 2. Kyphoscoliosis with restrictive lung disease -Severe restrictive lung disease due to chest cage abnormality without evidence of atelectasis on chest CT -No specific therapy Nain Campbell MD [facility] documented in this encounterPromed[facility]10-14-[facility]22 History of Past illness Narrative* Problem Noted Date Resolved Date Greater trochanteric bursitis 03/18/2022 Murmur 10/05/2020 09/16/2021 Screening for colon cancer 09/24/202009/24 Dyspnea on exertion 05/31/2019 09/16/2022 Precordial pain 01/28/2019 09/16/2022 Mitral valve prolapse 08/09/2018 09/16/2022 Normal pelvic exam 01/24/2017 09/16/2022 Muscle weakness 02/16/2015 07/21/2016 Complete uterovaginal prolapse 01/09/2015 1 Pelvic muscle wasting 01/09/2015 08/09/2018 Other pulmonary embolism and infarction 07/25/19 13 07/21/2016 Bursitis of right shoulder 10/10/201108/09 Cervicalgia 08/28/2007 08/09/2018 Overview: Intermittent symptoms GENERAL OSTEOARTHROSIS 11/18/2005 6 Unspecified asthma(493.90) 04/11 Disorder of bone and cartilage, unspecified 12/04/2019 Overview: Seen by 07/2011 - Fosamax resumed. documented as of this encounter (statuses as of 09/16/2022) [facility] of Past illness Narrative* Problem Noted Date Resolved Date Greater trochanteric bursitis 03/18/2022 Murmur 10/05/2020 09/16/2021 Screening for colon cancer 09/24/202009/24 Dyspnea on exertion 05/31/2019 09/16/2022 Precordial pain 01/28/2019 09/16/2022 Mitral valve prolapse 08/09/2018 09/16/2022 Normal pelvic exam 01/24/2017 09/16/2022 Muscle weakness 02/16/2015 07/21/2016 Complete uterovaginal prolapse 01/09/2015 1 Pelvic muscle wasting 01/09/2015 08/09/2018 Other pulmonary embolism and infarction 07/25/19 13 07/21/2016 Bursitis of right shoulder 10/10/201108/09 Cervicalgia 08/28/2007 08/09/2018 Overview: Intermittent symptoms GENERAL OSTEOARTHROSIS 11/18/2005 6 Unspecified asthma(493.90) 04/11 Disorder of bone and cartilage, unspecified 12/04/2019 Overview: Seen by 07/2011 - Fosamax resumed. documented as of this encounter (statuses as of 09/19/2022) [facility] Past illness Narrative* Problem Noted Date Resolved Date Greater trochanteric bursitis 03/18/2022 Murmur 10/05/2020 09/16/2021 Screening for colon cancer 09/24/202009/24 Dyspnea on exertion 05/31/2019 09/16/2022 Precordial pain 01/28/2019 09/16/2022 Mitral valve prolapse 08/09/2018 09/16/2022 Normal pelvic exam 01/24/2017 09/16/2022 Muscle weakness 02/16/2015 07/21/2016 Complete uterovaginal prolapse 01/09/2015 1 Pelvic muscle wasting 01/09/2015 08/09/2018 Other pulmonary embolism and infarction 07/25/19 13 07/21/2016 Bursitis of right shoulder 10/10/201108/09 Cervicalgia 08/28/2007 08/09/2018 Overview: Intermittent symptoms GENERAL OSTEOARTHROSIS 11/18/2005 6 Unspecified asthma(493.90) 04/11 Disorder of bone and cartilage, unspecified 12/04/2019 Overview: Seen by 07/2011 - Rosalinda resumed. documented as of this encounter (statuses as of 09/26/2022) [facility] illness Narrative* Problem Noted Date Resolved Date Greater trochanteric bursitis 03/18/2022 Murmur 10/05/2020 09/16/2021 Screening for colon cancer 09/24/202009/24 Dyspnea on exertion 05/31/2019 09/16/2022 Precordial pain 01/28/2019 09/16/2022 Mitral valve prolapse 08/09/2018 09/16/2022 Normal pelvic exam 01/24/2017 09/16/2022 Muscle weakness 02/16/2015 07/21/2016 Complete uterovaginal prolapse 01/09/2015 1 Pelvic muscle wasting 01/09/2015 08/09/2018 Other pulmonary embolism and infarction 07/25/19 13 07/21/2016 Bursitis of right shoulder 10/10/201108/09 Cervicalgia 08/28/2007 08/09/2018 Overview: Intermittent symptoms GENERAL OSTEOARTHROSIS 11/18/2005 6 Unspecified asthma(493.90) 04/11 Disorder of bone and cartilage, unspecified 12/04/2019 Overview: Seen by 07/2011 - Rosalinda resumed. documented as of this encounter (statuses as of 11/17/2022) [facility] Narrative* Problem Noted Date Diagnosed Date Resolved Date Greater trochanteric bursitis 03/18/2022 09/16/2022 Murmur 10/05/2020 09/16/2021 Screening for colon cancer 09/24/2020 0 09/24/2020 Dyspnea on exertion 05/31/2019 09/17/19 23 Precordial pain 01/28/2019 09/16/2022 Mitral valve prolapse 08/09/20182022 Normal pelvic exam 01/24/2017 3 Muscle weakness 02/16/2015 07/21/2016 Complete uterovaginal prolapse 01/09/2015 03/30/2016 Pelvic muscle wasting 01/09/20152018 Other pulmonary embolism and infarction 07/25/2012 07/21/2016 Bursitis of right shoulder 10/10/2011 0 08/09/2018 Cervicalgia 08/28/2007 08/09/2018 Overview: Intermittent symptoms GENERAL OSTEOARTHROSIS 11/18/200507/03 Unspecified asthma(493.90) 1 06/11/2010 Disorder of bone and cartilage, unspecified 12/04/2019 Overview: Seen by 07/2011 - Rosalinda resumed. documented as of this encounter (statuses as of 01/10/2023) [facility] Narrative* Problem Noted Date Diagnosed Date Resolved Date Greater trochanteric bursitis 03/18/2022 09/16/2022 Murmur 10/05/2020 09/16/2021 Screening for colon cancer 09/24/2020 0 09/24/2020 Dyspnea on exertion 05/31/2019 09/17/19 23 Precordial pain 01/28/2019 09/16/2022 Mitral valve prolapse 08/09/20182022 Normal pelvic exam 01/24/2017 3 Muscle weakness 02/16/2015 07/21/2016 Complete uterovaginal prolapse 01/09/2015 03/30/2016 Pelvic muscle wasting 01/09/20152018 Other pulmonary embolism and infarction 07/25/2012 07/21/2016 Bursitis of right shoulder 10/10/2011 0 08/09/2018 Cervicalgia 08/28/2007 08/09/2018 Overview: Intermittent symptoms GENERAL OSTEOARTHROSIS 11/18/200507/03 Unspecified asthma(493.90) 1 06/11/2010 Disorder of bone and cartilage, unspecified 12/04/2019 Overview: Seen by 07/2011 - Fosamax resumed. documented as of this encounter (statuses as of 01/11/2023) [facility] Narrative* Problem Noted Date Diagnosed Date Resolved Date Greater trochanteric bursitis 03/18/2022 09/16/2022 Murmur 10/05/2020 09/16/2021 Screening for colon cancer 09/24/2020 0 09/24/2020 Dyspnea on exertion 05/31/2019 09/17/19 23 Precordial pain 01/28/2019 09/16/2022 Mitral valve prolapse 08/09/20182022 Normal pelvic exam 01/24/2017 3 Muscle weakness 02/16/2015 07/21/2016 Complete uterovaginal prolapse 01/09/2015 03/30/2016 Pelvic muscle wasting 01/09/20152018 Other pulmonary embolism and infarction 07/25/2012 07/21/2016 Bursitis of right shoulder 10/10/2011 0 08/09/2018 Cervicalgia 08/28/2007 08/09/2018 Overview: Intermittent symptoms GENERAL OSTEOARTHROSIS 11/18/200507/03 Unspecified asthma(493.90) 1 06/11/2010 Disorder of bone and cartilage, unspecified 12/04/2019 Overview: Seen by 07/2011 - Fosamax resumed. documented as of this encounter (statuses as of 02/14/2023) [facility] Narrative* Problem Noted Date Diagnosed Date Resolved Date Greater trochanteric bursitis 03/18/2022 09/16/2022 Murmur 10/05/2020 09/16/2021 Screening for colon cancer 09/24/2020 0 09/24/2020 Dyspnea on exertion 05/31/2019 09/17/19 23 Precordial pain 01/28/2019 09/16/2022 Mitral valve prolapse 08/09/20182022 Normal pelvic exam 01/24/2017 3 Muscle weakness 02/16/2015 07/21/2016 Complete uterovaginal prolapse 01/09/2015 03/30/2016 Pelvic muscle wasting 01/09/20152018 Other pulmonary embolism and infarction 07/25/2012 07/21/2016 Bursitis of right shoulder 10/10/2011 0 08/09/2018 Cervicalgia 08/28/2007 08/09/2018 Overview: Intermittent symptoms GENERAL OSTEOARTHROSIS 11/18/200507/03 Unspecified asthma(493.90) 1 06/11/2010 Disorder of bone and cartilage, unspecified 12/04/2019 Overview: Seen by 07/2011 - Fosamax resumed. documented as of this encounter (statuses as of 03/04/2023) [facility]* Problem Noted Date Diagnosed Date Resolved Date Greater trochanteric bursitis 03/18/2022 09/16/2022 Murmur 10/05/2020 09/16/2021 Screening for colon cancer 09/24/2020 0 09/24/2020 Dyspnea on exertion 05/31/2019 09/17/19 23 Precordial pain 01/28/2019 09/16/2022 Mitral valve prolapse 08/09/20182022 Normal pelvic exam 01/24/2017 3 Muscle weakness 02/16/2015 07/21/2016 Complete uterovaginal prolapse 01/09/2015 03/30/2016 Pelvic muscle wasting 01/09/20152018 Other pulmonary embolism and infarction 07/25/2012 07/21/2016 Bursitis of right shoulder 10/10/2011 0 08/09/2018 Cervicalgia 08/28/2007 08/09/2018 Overview: Intermittent symptoms GENERAL OSTEOARTHROSIS 11/18/200507/03 Unspecified asthma(493.90) 1 06/11/2010 Disorder of bone and cartilage, unspecified 12/04/2019 Overview: Seen by 07/2011 - Fosamax resumed. documented as of this encounter (statuses as of 03/30/2023) [facility] Narrative* Problem Noted Date Diagnosed Date Resolved Date Greater trochanteric bursitis 03/18/2022 09/16/2022 Murmur 10/05/2020 09/16/2021 Screening for colon cancer 09/24/2020 0 09/24/2020 Dyspnea on exertion 05/31/2019 09/17/19 23 Precordial pain 01/28/2019 09/16/2022 Mitral valve prolapse 08/09/20182022 Normal pelvic exam 01/24/2017 3 Muscle weakness 02/16/2015 07/21/2016 Complete uterovaginal prolapse 01/09/2015 03/30/2016 Pelvic muscle wasting 01/09/20152018 Other pulmonary embolism and infarction 07/25/2012 07/21/2016 Bursitis of right shoulder 10/10/2011 0 08/09/2018 Cervicalgia 08/28/2007 08/09/2018 Overview: Intermittent symptoms GENERAL OSTEOARTHROSIS 11/18/200507/03 Unspecified asthma(493.90) 1 06/11/2010 Disorder of bone and cartilage, unspecified 12/04/2019 Overview: Seen by 07/2011 - Fosamax resumed. documented as of this encounter (statuses as of 04/09/2023) [facility]arrative* Problem Noted Date Diagnosed Date Resolved Date Greater trochanteric bursitis 03/18/2022 09/16/2022 Murmur 10/05/2020 09/16/2021 Screening for colon cancer 09/24/2020 0 09/24/2020 Dyspnea on exertion 05/31/2019 09/17/19 23 Precordial pain 01/28/2019 09/16/2022 Mitral valve prolapse 08/09/20182022 Normal pelvic exam 01/24/2017 3 Muscle weakness 02/16/2015 07/21/2016 Complete uterovaginal prolapse 01/09/2015 03/30/2016 Pelvic muscle wasting 01/09/20152018 Other pulmonary embolism and infarction 07/25/2012 07/21/2016 Bursitis of right shoulder 10/10/2011 0 08/09/2018 Cervicalgia 08/28/2007 08/09/2018 Overview: Intermittent symptoms GENERAL OSTEOARTHROSIS 11/18/200507/03 Unspecified asthma(493.90) 1 06/11/2010 Disorder of bone and cartilage, unspecified 12/04/2019 Overview: Seen by 07/2011 - Herbiex resumed. documented as of this encounter (statuses as of 04/24/2023) [facility]* Problem Noted Date Diagnosed Date Resolved Date Greater trochanteric bursitis 03/18/2022 09/16/2022 Murmur 10/05/2020 09/16/2021 Screening for colon cancer 09/24/2020 0 09/24/2020 Dyspnea on exertion 05/31/2019 09/17/19 23 Precordial pain 01/28/2019 09/16/2022 Mitral valve prolapse 08/09/20182022 Normal pelvic exam 01/24/2017 3 Muscle weakness 02/16/2015 07/21/2016 Complete uterovaginal prolapse 01/09/2015 03/30/2016 Pelvic muscle wasting 01/09/20152018 Other pulmonary embolism and infarction 07/25/2012 07/21/2016 Bursitis of right shoulder 10/10/2011 0 08/09/2018 Cervicalgia 08/28/2007 08/09/2018 Overview: Intermittent symptoms GENERAL OSTEOARTHROSIS 11/18/200507/03 Unspecified asthma(493.90) 1 06/11/2010 Disorder of bone and cartilage, unspecified 12/04/2019 Overview: Seen by 07/2011 - Fosamax resumed. documented as of this encounter (statuses as of 05/09/2023) [facility] Narrative* Problem Noted Date Diagnosed Date Resolved Date Greater trochanteric bursitis 03/18/2022 09/16/2022 Murmur 10/05/2020 09/16/2021 Screening for colon cancer 09/24/2020 0 09/24/2020 Dyspnea on exertion 05/31/2019 09/17/19 23 Precordial pain 01/28/2019 09/16/2022 Mitral valve prolapse 08/09/20182022 Normal pelvic exam 01/24/2017 3 Muscle weakness 02/16/2015 07/21/2016 Complete uterovaginal prolapse 01/09/2015 03/30/2016 Pelvic muscle wasting 01/09/20152018 Other pulmonary embolism and infarction 07/25/2012 07/21/2016 Bursitis of right shoulder 10/10/2011 0 08/09/2018 Cervicalgia 08/28/2007 08/09/2018 Overview: Intermittent symptoms GENERAL OSTEOARTHROSIS 11/18/200507/03 Unspecified asthma(493.90) 1 06/11/2010 Disorder of bone and cartilage, unspecified 12/04/2019 Overview: Seen by 07/2011 - Fosamax resumed. documented as of this encounter (statuses as of 05/10/2023) [facility]* Problem Noted Date Diagnosed Date Resolved Date Greater trochanteric bursitis 03/18/2022 09/16/2022 Murmur 10/05/2020 09/16/2021 Screening for colon cancer 09/24/2020 0 09/24/2020 Dyspnea on exertion 05/31/2019 09/17/19 23 Precordial pain 01/28/2019 09/16/2022 Mitral valve prolapse 08/09/20182022 Normal pelvic exam 01/24/2017 3 Muscle weakness 02/16/2015 07/21/2016 Complete uterovaginal prolapse 01/09/2015 03/30/2016 Pelvic muscle wasting 01/09/20152018 Other pulmonary embolism and infarction 07/25/2012 07/21/2016 Bursitis of right shoulder 10/10/2011 0 08/09/2018 Cervicalgia 08/28/2007 08/09/2018 Overview: Intermittent symptoms GENERAL OSTEOARTHROSIS 11/18/200507/03 Unspecified asthma(493.90) 1 06/11/2010 Disorder of bone and cartilage, unspecified 12/04/2019 Overview: Seen by 07/2011 - Rosalinda resumed. documented as of this encounter (statuses as of 05/15/2023) [facility]10-14-2022 History of Present illness Narrative* Markus Rascon MD - 03/18/2022 10:57 AM EDT Patient presents with: Hypertension: Follow up HPI: Patient presents today for office visit for 2 month follow up. Home BP has been good. Brought cuff to validate. Cuff is close and bp was good at the hospital as well. Eating ok. Using boost once a day. Weight is stable. No breathing changes. Had some indigestion. And tummy rumbling . Had epigastric discomfort as well but went away after belching and burping. Has been fine since. No left sided chest pain or chest pain with exertion. Saw uro c d stripper after finding blood. Did ct with contrast looking at abd/pelvis and they said just small cysts. Weight is stable. she is going to follow her conservatively. Has some prolapse. Will be seeing her again in one year. Had knee pain on the right. Worse when she sits for a long time or goes up stairs. No redness or warmth or edema. Does not want xray Note was copied and pasted, without alteration from previous ov noted: Home bp has been ok. Continues to lose weight. Feels she is eating normally, three meals a day. She may not be eating as much. Has had colonoscopy and mammogram recently. No bowel changes. No urinary issues. No skin rashes or moles. No cough or hemoptysis. She has noted some worsening shortness of breath on humid days Has been following with cardiology and pulmonary. Sees Dr. Oneill for mgus. Has some chronic right sided rib pain. Discussed using ensure or boost once a day. Has lost 10 lbs in about 8 months without explanation. See previous ov: CARDIO: Just recently saw Cardio in [place]. Next appt in May. Bilat swelling in feet. Hx of Obstructive cardiomyopathy and mitral regurg. No murmur heard during exam Started compression stockings - improvement. HTN: Patient is compliant with meds Yes Monitors bp at home: Yes. Daily. Avg high 120s - low 130s / 70s. Denies side effects: No. Chest pain: No. Dyspnea: Yes - chronic (years) Edema: Yes. Bilat lower extremities in feet. Palpitations: No. Syncope: No. Headache: No. Dizziness: No. PULM: Next appt 12/24/21. Chronic SOB with exertion. Hx of scoliosis. Pulm suggested using rescue inhaler more frequently if having difficulty. Patient continues to use Symbicort. Dry cough - chronic. HEME: Next appt in May. Stable. OSTEOPOROSIS: Last injection was in September,. Left shoulder and right hip: Just recently saw physiotherapy for the last 3 months. Shoulder and hip have resolved - patient is doing much better. No pain during exam. PSYCH: Chronic insomnia. Patient mentions sleep study 15 years ago. Patient sleeps in recliner: Avgs 7 hours in the recliner. Overall in good spirits. Good appetite and limited fluid intake. Has been losing a lb a month for six months. She may have adjusted diet a little. Renal us: IMPRESSION: 2 indeterminant cystic masses within the midpole and lower pole left kidney requiring further evaluation. CT urogram recommended for further characterization. Mild pelvocaliectasis involving the right kidney. Echogenic renal parenchyma which can be seen in chronic medical renal disease. CT abd/pelvis IMPRESSION: Mild bilateral renal pelvic fullness. Probable renal cysts. Further evaluation sonographically may be helpful. Diverticulosis without diverticulitis. Cystocele No evidence of suspicious mass or adenopathy Significant scoliosis and degenerative change CT: chest: IMPRESSION: No suspicious mass or adenopathy in the chest Scoliosis MEDICATIONS: Current Outpatient Medications Medication Sig dilTIAZem CD (CARDIZEM CD) 180 mg 24 hr capsule Take 1 capsule by mouth once daily. budesonide-formoterol (SYMBICORT) 160-4.5 mcg/actuation inhaler Inhale 2 Puffs as instructed twice daily. denosumab (PROLIA) 60 mg/mL Inject subcutaneously once every 6 months. albuterol HFA (VENTOLIN HFA) 90 mcg/actuation inhaler Inhale 2 Puffs as instructed every 4 hours asneeded for wheezing/shortness of breath. melatonin 3 mg tablet Take 3 mg by mouth. qhs acetaminophen 325 mg cap Take by mouth as needed. MULTIVITAMIN ORAL Take 1 tablet by mouth once daily. calcium, elemental, tab Take 1 tablet by mouth twice daily. Current Facility-Administered Medications Medication Dose Route Frequency perflutren lipid microspheres 1.3 mL in NaCl (PF) 0.9% 10 mL injection (DEFINITY) INTRAVENOUS DIRECTED PRN sodium chloride 0.9 % (flush) 10 mL (BD POSIFLUSH) 10 mL INTRAVENOUS DIRECTED PRN ALLERGIES: ALLERGIES Allergen Reactions Amoxicillin Rash Asa [Salicylates] Swelling lip swelling Diclofenac Shortness of Breath Iodine Shortness of Breath Monistat 1 [Tiocona* Other: See Comments Burning Shell Fish [Other] Anaphylaxis Metoprolol Intolerance SOB PAST MEDICAL HISTORY Diagnosis Date Arthritis Diastolic dysfunction Grade I Disorder of bone and cartilage, unspecified Diverticulosis 2009 colonoscopy History of transfusion HOCM (hypertrophic obstructive cardiomyopathy) (HCC) Insomnia, unspecified Melanocytic Nevocellular Nevi pigmented moles of trunk: back mainly 08/02/2011 Mitral valve disorders Monoclonal gammopathy 04/2017 Other diseases of lung, not elsewhere classified restrictive lung disease Other pulmonary embolism and infarction 07/25/2012 ? had pe with normal d dimer. saw pulmonary. not convinced she did have one. Small airways disease Possible asthma. Patient unable to perform definitive test Unspecified essential hypertension PAST SURGICAL HISTORY Procedure Laterality Date BACK SURGERY HX BIOPSY BREAST OPEN INCISIONAL left Bx of breast, incisional COLONOSCOPY FLX DX W/COLLJ SPEC WHEN PFRMD 10/27/2004 Colonoscopy COLONOSCOPY FLX DX W/COLLJ SPEC WHEN PFRMD 02/22/2010 Colonoscopy COLONOSCOPY FLX DX W/COLLJ SPEC WHEN PFRMD 03/19/2015 Colonoscopy CORRECT BUNION,SIMPLE CORRECTION HAMMERTOE EYE SURGERY HX PAST SURGICAL HISTORY OF scoliosis surgery PAST SURGICAL HISTORY OF laser kidney stone TONSILLECTOMY HX TONSILLECTOMY PRIMARY/SECONDARY <AGE 12 Tonsillectomy FAMILY HISTORY Problem Relation Age of Onset Colon Cancer Mother 56 Hypertension Mother Colon Cancer Father Diabetes Father Hypertension Maternal Grandmother Social History Tobacco Use Smoking status: Never Smokeless tobacco: Never Tobacco comments: Father smoked in childhood home. Spouse does not smoke. Vaping Use Vaping Use: Never used Substance Use Topics Alcohol use: Yes Alcohol/week: 1.7 standard drinks Comment: Occasionally. Drug use: No Reviewed current medications, allergies, past medical history, surgical history, family history andsocial history today. REVIEW OF SYSTEMS All other reviewed and negative other than HPI. HEALTH MAINTENANCE: Reviewed health maintenance issues today and recommended the following in detail. DEPRESSION ASSESSMENT Never done INFLUENZA(1) due on 02/03/2022 VITALS: BP 154/78 Pulse 94 Ht 158.8 cm (5' 2.5 ) Wt 55.3 kg (122 lb) SpO2 96% BMI 21.96 kg/m Last 4 Encounter Wt Readings: Date: Wt: 01/17/2022 54.9 kg (121 lb) 12/17/2021 56.7 kg (125 lb) 11/12/2021 55.8 kg (123 lb) 10/12/2021 59.1 kg (130 lb 3.2 oz) PHYSICAL EXAMINATION: General appearance: Well appearing, alert, in no acute distress, well-hydrated, well nourished. Skin: Skin color, texture, turgor normal, no suspicious rashes or lesions Head: Normocephalic, no masses, lesions, tenderness or abnormalities Eyes: Anicteric sclera. Pupils are equally round and reactive to light. Extraocular movements are intact. Lungs: Lungs clear to auscultation. No wheezing, rhonchi, rales Heart: RRR without murmur, gallop, or rubs. No ectopy Abdomen: Normal abdominal exam, Abdomen soft, non-tender. Bowel sounds normal. No masses, organomegaly Extremities: knee shows effusion. No redness or warmth. No instability ASSESSMENT/PLAN: 1. Weight loss - ICD9: 783.21, ICD10: R63.4 (primary diagnosis) - work up negative. Thus far. Continue to follow at home. Call if recurs. 2. Encounter for immunization - ICD9: V03.89, ICD10: Z23 - INFLUENZA SEASONAL QUADRIVALENT HIGH DOSE AGE 65+ 3. Essential hypertension - ICD9: 401.9, ICD10: I10 - good control - Continue current medication(s) - Goal of BP <130/80 4. HOCM (hypertrophic obstructive cardiomyopathy) (HCC) - ICD9: 425.11, ICD10: I42.1 - stable. Markus Rascon MD documented in this encounterPromedica [facility]09-15-[facility]22 Miscellaneous Notes* Telephone Encounter - May Zabala RN - 02/17/2022 2:39 PM EDT Patient returned call and given provider's message below with verbalized understanding. * Telephone Encounter - Anamaria Ceron RN - 02/17/2022 1:32 PM EDT Called and left a voicemail for the Patient to call back and ask for a nurse to receive the providers message. Anamaria Ceron RN * Telephone Encounter - Markus Rascon MD - 02/17/2022 1:13 PM EDT Change diltiazem to 240 mg a day. Recheck bp in one month * Telephone Encounter - Di Dobson LPN - 02/17/2022 11:34 AM EDT Manual Readin/73 Pulse: 88 BP Emerald average: 147/73 P: 86 Repeat BP Check: 149/73 P86 #1 148/75 P86 #2 149/74 P88 #3 144/69 P83 #4 144/72 P85 #5 147/73 P86 #6 Reason for blood pressure check - Last BP elevated Patient is: Taking medication as prescribed Yes Took medication today Yes If no, date medication last taken N/A Experiencing side effects No BP was elevated at last appt 01/17/22. No BP medication changes were made at that time. Taking all medications as prescribed. Denies any chest pain, unusual shortness of breath, dizziness, or headaches. Decreasing caffeine use. No personal history of tobacco use; no current exposure. Alert and oriented. Pt has been identified by name and birthdate: Yes Allergies reviewed: Yes Latex allergy: no. Medication - prescribed and OTC reviewed and updated: Yes Do you need any prescription refills prior to your next visit: No Health Maintenance: Reviewed and not up to date and provider notified Patient advised that she would be contacted after review by PCP. Di Dobson LPN documented in this encounterPromedica [facility]09-15-2022 History of Present illness Narrative* Di Dobson LPN - 02/17/2022 11:31 AM EDT Manual Readin/73 Pulse: 88 BP Emerald average: 147/73 P: 86 Repeat BP Check: 149/73 P86 #1 148/75 P86 #2 149/74 P88 #3 144/69 P83 #4 144/72 P85 #5 147/73 P86 #6 Reason for blood pressure check - Last BP elevated Patient is: Taking medication as prescribed Yes Took medication today Yes If no, date medication last taken N/A Experiencing side effects No BP was elevated at last appt 01/17/22. No BP medication changes were made at that time. Taking all medications as prescribed. Denies any chest pain, unusual shortness of breath, dizziness, or headaches. Decreasing caffeine use. No personal history of tobacco use; no current exposure. Alert and oriented. Pt has been identified by name and birthdate: Yes Allergies reviewed: Yes Latex allergy: no. Medication - prescribed and OTC reviewed and updated: Yes Do you need any prescription refills prior to your next visit: No Health Maintenance: Reviewed and not up to date and provider notified Patient advised that she would be contacted after review by PCP. Di Dobson LPN documented in this encounterPromedica [facility]09-06-2022 Miscellaneous Notes* Telephone Encounter - Shanita Mitchell - 02/08/2022 4:39 PM EDT Pt called with questions about her CT on 02/11/22. She is understanding that it should be a IVCon. She was given Prednisone and Benadryl to take because she is allergic to the dye. Please contact her to let her know that this is going to be a IV CT. The order does not appear attached to the appt. It is from Dr. Holm outside of [facility]. documented in this encounterPromedica Bay Park Hospital08-26-2022 Miscellaneous Notes* Telephone Encounter - Vianney Steen - 01/28/2022 11:32 AM EDT US Result faxed to Dr. Holm at [phone]. Vianney Steen * Telephone Encounter - Vianney Steen - 01/28/2022 11:25 AM EDT Patient informed and verbalized understanding. Patient did see Dr. Holm on Monday01/25/22. Calling for them to fax us report and also faxing them US results. Vianney Steen * Telephone Encounter - Markus Rascon MD - 01/28/2022 10:18 AM EDT Us confirms the cysts. Did she see Dr. Holm? Can we fax results to her. If she saw her can we get me a copy of the visit documented in this encounterPromedica Bay [facility] Hospital08-23-2022 Miscellaneous Notes* Telephone Encounter - Jo Ann Herman LPN - 01/25/2022 2:13 PM EDT Spoke with pt and information listed below given. Pt verbalizes understanding. Pt was seen by a Urologist today 01-25-22. Dr. Holm wanted her to have Renal US done. Pt sent to [facility]. Pt will be having a bladder scan done by Dr. Holm. Jo Ann Herman LPN * Telephone Encounter - Di Dobson LPN - 01/25/2022 11:01 AM EDT Left message for pt to contact office and speak with triage staff. Di Dobson LPN * Telephone Encounter - Markus Rascon MD - 01/24/2022 7:[address] is overall ok. Shows some scoliosis and degenerative changes of her spine. Shows kidney cysts which are likely ok. They would like to do an ultrasound for better pictures. documented in this encounterPromedica Bay [facility] Hospital08-22-2022 Miscellaneous Notes* Telephone Encounter - ANDREW Horowitz - 01/24/2022 4:20 PM EDT Faxed / release in syngo * Telephone Encounter - Shanita Mitchell - 01/24/2022 2:44 PM EDT Pt has appt tomorrow morning with Dr. Holm. She requests the radiology report from her CT ABD/PEL be faxed over to [phone] before her appt. documented in this encounterPromedica Bay Park Hospital08-19-2022 History of Present illness Narrative* RT Maddy(R) - 01/21/2022 2:00 PM EDT Radiology Service Progress Note PATIENT NAME: Vandana Mitchell DATE OF SERVICE: January 21, 2022 TIME: 1:21 PM PATIENT IDENTITY VERIFICATION COMPLETED USING TWO (2) IDENTIFIERS: Name and Date of confirmedby patient verbally. FALL SCREENING: Has the patient had 2 falls in the last year or 1 fall with injury or currently using an Ambulatory Assistive Device (Walker, Cane, Wheelchair, Crutches, etc.)? No PATIENT GENDER DATA: Female. status: : No status: NO. PATIENT RELEVANT IMPLANT DATA REVIEWED: Yes RADIOLOGY DEPARTMENT: CT; Exam(s) Completed: Chest Abdomen Pelvis PERIPHERAL IV DATA: Not applicable SIGNED BY: RT Serjio(R) January 21, 2022 1:21 PM documented in this encounterPromedica Bay Park Hospital08-16-2022 Miscellaneous Notes* Telephone Encounter - Rylee Tse LPN - 01/18/2022 10:24 AM EDT Patient notified. Verbalized understanding. She has a CT scheduled for 01/21/22. Was seen by a urologist/c d stripper a few years ago, would like to see her again. Advised patient to call and set up an appointment and to let us know if anything is needed for that appointment. Patient verbalized understanding. * Telephone Encounter - Markus Rascon MD - 01/17/2022 9:01 PM EDT Lab is showing some blood in the urine. Given her unexpected weight loss. Get ct as ordered. Could consider seeing urology for hematuria. documented in this encounterPromedica Bay [facility]08-15-2022 History of Present illness Narrative* Markus Rascon MD - 01/17/2022 11:15 AM EDT Patient presents with: Hypertension Weight Loss HPI: Patient presents today for office visit for follow up. Home bp has been ok. Continues to lose weight. Feels she is eating normally, three meals a day. She may not be eating as much. Has had colonoscopy and mammogram recently. No bowel changes. No urinary issues. No skin rashes or moles. No cough or hemoptysis. She has noted some worsening shortness of breath on humid days Has been following with cardiology and pulmonary. Sees Dr. Oneill for mgus. Has some chronic right sided rib pain. Discussed using ensure or boost once a day. Has lost 10 lbs in about 8 months without explanation. See previous ov: CARDIO: Just recently saw Cardio in [place]. Next appt in May. Bilat swelling in feet. Hx of Obstructive cardiomyopathy and mitral regurg. No murmur heard during exam Started compression stockings - improvement. HTN: Patient is compliant with meds Yes Monitors bp at home: Yes. Daily. Avg high 120s - low 130s / 70s. Denies side effects: No. Chest pain: No. Dyspnea: Yes - chronic (years) Edema: Yes. Bilat lower extremities in feet. Palpitations: No. Syncope: No. Headache: No. Dizziness: No. PULM: Next appt 12/24/21. Chronic SOB with exertion. Hx of scoliosis. Pulm suggested using rescue inhaler more frequently if having difficulty. Patient continues to use Symbicort. Dry cough - chronic. HEME: Next appt in May. Stable. OSTEOPOROSIS: Last injection was in September,. Left shoulder and right hip: Just recently saw physiotherapy for the last 3 months. Shoulder and hip have resolved - patient is doing much better. No pain during exam. PSYCH: Chronic insomnia. Patient mentions sleep study 15 years ago. Patient sleeps in recliner: Avgs 7 hours in the recliner. Overall in good spirits. Good appetite and limited fluid intake. Has been losing a lb a month for six months. She may have adjusted diet a little. Component Latest Ref Rng & Units 12/22/2021 WBC 3.70 - 11.00 k/uL 9.28 RBC 3.90 - 5.20 m/uL 5.10 Hemoglobin 11.5 - 15.5 g/dL 13.3 Hematocrit 36.0 - 46.0 % 42.4 MCV 80.0 - 100.0 fL 83.1 MCH 26.0 - 34.0 pg 26.1 MCHC 30.5 - 36.0 g/dL 31.4 RDW-CV 11.5 - 15.0 % 13.9 Platelet Count 150 - 400 k/uL 340 MPV 9.0 - 12.7 fL 10.4 Neut% % 58.8 Abs Neut (ANC) 1.45 - 7.50 k/uL 5.44 Lymph% % 17.2 Abs Lymph 1.00 - 4.00 k/uL 1.60 [place]% % 14.3 Abs [place] <0.87 k/uL 1.33 (H) Eosin% % 7.3 Abs Eosin <0.46 k/uL 0.68 (H) Baso% % 2.0 Abs Baso <0.11 k/uL 0.19 (H) Immature Gran % % 0.4 IMMATURE GRANS (ABS) <0.10 k/uL 0.04 NRBC /100 WBC 0.0 Absolute nRBC <0.01 k/uL <0.01 DTYPE Auto Protein, Total 6.3 - 8.0 g/dL 7.6 Albumin 3.9 - 4.9 g/dL 4.4 Calcium 8.5 - 10.2 mg/dL 10.2 Bilirubin, Total 0.2 - 1.3 mg/dL 0.3 Alkaline Phosphatase 34 - 123 U/L 76 AST 13 - 35 U/L 21 ALT 7 - 38 U/L 16 Glucose 74 - 99 mg/dL 95 BUN 7 - 21 mg/dL 14 Creatinine 0.58 - 0.96 mg/dL 0.66 Sodium 136 - 144 mmol/L 139 Potassium 3.7 - 5.1 mmol/L 4.3 Chloride 97 - 105 mmol/L 101 CO2 22 - 30 mmol/L 27 Anion Gap 9 - 18 mmol/L 11 eGFR >=60 mL/min/1.73m 93 Cholesterol, Total <200 mg/dL 194 Triglyceride <150 mg/dL 79 HDL Cholesterol >39 mg/dL 53 Non HDL Cholesterol <130 mg/dL 141 (H) Fasting Time hrs 12 VLDL Cholesterol <30 mg/dL 16 TC:HDL Ratio <5.10 3.66 LDL Cholesterol <100 mg/dL 125 (H) LDL:HDL Ratio <2.54 2.36 Normalized CAlcium 1.08 - 1.30 mmol/L 1.28 Ionized Calcium 1.08 - 1.30 mmol/L 1.28 TSH 0.270 - 4.200 mIU/L 1.690 MEDICATIONS: Current Outpatient Medications Medication Sig dilTIAZem CD (CARDIZEM CD) 180 mg 24 hr capsule Take 1 capsule by mouth once daily. budesonide-formoterol (SYMBICORT) 160-4.5 mcg/actuation inhaler Inhale 2 Puffs as instructed twice daily. furosemide (LASIX) 20 mg tablet Take 1 tablet by mouth once daily. (Patient not taking: Reported on11/12/2021 ) denosumab (PROLIA) 60 mg/mL Inject subcutaneously once every 6 months. albuterol HFA (VENTOLIN HFA) 90 mcg/actuation inhaler Inhale 2 Puffs as instructed every 4 hours asneeded for wheezing/shortness of breath. melatonin 3 mg tablet Take 3 mg by mouth. qhs acetaminophen (TYLENOL) 325 mg cap Take by mouth as needed. MULTIVITAMIN ORAL Take 1 tablet by mouth once daily. calcium, elemental, tab Take 1 tablet by mouth twice daily. Current Facility-Administered Medications Medication Dose Route Frequency perflutren lipid microspheres 1.3 mL in NaCl (PF) 0.9% 10 mL injection (DEFINITY) INTRAVENOUS DIRECTED PRN sodium chloride 0.9 % (flush) 10 mL (BD POSIFLUSH) 10 mL INTRAVENOUS DIRECTED PRN ALLERGIES: ALLERGIES Allergen Reactions Amoxicillin Rash Asa [Salicylates] Swelling lip swelling Diclofenac Shortness of Breath Iodine Shortness of Breath Monistat 1 [Tiocona* Other: See Comments Burning Shell Fish [Other] Anaphylaxis Metoprolol Intolerance SOB PAST MEDICAL HISTORY Diagnosis Date Arthritis Diastolic dysfunction Grade I Disorder of bone and cartilage, unspecified Diverticulosis 2009 colonoscopy History of transfusion HOCM (hypertrophic obstructive cardiomyopathy) (HCC) Insomnia, unspecified Melanocytic Nevocellular Nevi pigmented moles of trunk: back mainly 08/02/2011 Mitral valve disorders Monoclonal gammopathy 04/2017 Other diseases of lung, not elsewhere classified restrictive lung disease Other pulmonary embolism and infarction 07/25/2012 ? had pe with normal d dimer. saw pulmonary. not convinced she did have one. Small airways disease Possible asthma. Patient unable to perform definitive test Unspecified essential hypertension PAST SURGICAL HISTORY Procedure Laterality Date BACK SURGERY HX BIOPSY BREAST OPEN INCISIONAL left Bx of breast, incisional COLONOSCOPY FLX DX W/COLLJ SPEC WHEN PFRMD 10/27/2004 Colonoscopy COLONOSCOPY FLX DX W/COLLJ SPEC WHEN PFRMD 02/22/2010 Colonoscopy COLONOSCOPY FLX DX W/COLLJ SPEC WHEN PFRMD 03/19/2015 Colonoscopy CORRECT BUNION,SIMPLE CORRECTION HAMMERTOE EYE SURGERY HX PAST SURGICAL HISTORY OF scoliosis surgery PAST SURGICAL HISTORY OF laser kidney stone TONSILLECTOMY HX TONSILLECTOMY PRIMARY/SECONDARY <AGE 12 Tonsillectomy FAMILY HISTORY Problem Relation Age of Onset Colon Cancer Mother 56 Hypertension Mother Colon Cancer Father Diabetes Father Hypertension Maternal Grandmother Social History Tobacco Use Smoking status: Never Smokeless tobacco: Never Tobacco comments: Father smoked in childhood home. Spouse does not smoke. Vaping Use Vaping Use: Never used Substance Use Topics Alcohol use: Yes Alcohol/week: 1.7 standard drinks Comment: Occasionally. Drug use: No Reviewed current medications, allergies, past medical history, surgical history, family history andsocial history today. REVIEW OF SYSTEMS All other reviewed and negative other than HPI. HEALTH MAINTENANCE: Reviewed health maintenance issues today VITALS: BP 148/82 Pulse 96 Wt 54.9 kg (121 lb) BMI 21.78 kg/m Last 4 Encounter Wt Readings: Date: Wt: 12/17/2021 56.7 kg (125 lb) 11/12/2021 55.8 kg (123 lb) 10/12/2021 59.1 kg (130 lb 3.2 oz) 09/16/2021 60 kg (132 lb 3.2 oz) PHYSICAL EXAMINATION: General appearance: Well appearing, alert, in no acute distress, well-hydrated, well nourished. Skin: Skin color, texture, turgor normal, no suspicious rashes or lesions Head: Normocephalic, no masses, lesions, tenderness or abnormalities Lungs: Lungs clear to auscultation. No wheezing, rhonchi, rales Heart: RRR without murmur, gallop, or rubs. No ectopy Abdomen: Normal abdominal exam, Abdomen soft, non-tender. Bowel sounds normal. No masses, organomegaly Extremities: No deformities, edema, skin discoloration, clubbing or cyanosis. Good capillary refill. Musculoskeletal: No joint swelling, deformity, or tenderness Peripheral pulses: Normal Neuro: Negative. ASSESSMENT/PLAN: - will follow. Add ensure daily. Check urine and ct's - follow weight closely. - URINALYSIS, WITH MICROSCOPIC - CT CHEST WO IVCON - CT ABD/PEL WO IVCON 2. Essential hypertension - ICD9: 401.9, ICD10: I10 - fair control - has been good at home. Will validate her home cuff. 3. Restrictive 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 - ICD9: 518.89, 737.43, ICD10: J98.4, M41.9 - follow with pulmonary. 4. Monoclonal gammopathy - ICD9: 273.1, ICD10: D47.2 - follow with oncology. Markus Rascon Bring in cuff and validate and do bp and weight check in one month RTO in two months documented in this encounterPromedica Bay [facility] Hospital07-15-2022 History of Present illness Narrative* Markus Rascon MD - 12/17/2021 1:40 PM EDT No chief complaint on file. HPI: Patient presents today for office visit for follow up. CARDIO: Just recently saw Cardio in [place]. Next appt in May. Bilat swelling in feet. Hx of Obstructive cardiomyopathy and mitral regurg. No murmur heard during exam Started compression stockings - improvement. HTN: Patient is compliant with meds Yes Monitors bp at home: Yes. Daily. Avg high 120s - low 130s / 70s. Denies side effects: No. Chest pain: No. Dyspnea: Yes - chronic (years) Edema: Yes. Bilat lower extremities in feet. Palpitations: No. Syncope: No. Headache: No. Dizziness: No. PULM: Next appt 12/24/21. Chronic SOB with exertion. Hx of scoliosis. Pulm suggested using rescue inhaler more frequently if having difficulty. Patient continues to use Symbicort. Dry cough - chronic. HEME: Next appt in May. Stable. OSTEOPOROSIS: Last injection was in September,. Left shoulder and right hip: Just recently saw physiotherapy for the last 3 months. Shoulder and hip have resolved - patient is doing much better. No pain during exam. PSYCH: Chronic insomnia. Patient mentions sleep study 15 years ago. Patient sleeps in recliner: Avgs 7 hours in the recliner. Overall in good spirits. Good appetite and limited fluid intake. Has been losing a lb a month for six months. She may have adjusted diet a little. MEDICATIONS: Current Outpatient Medications Medication Sig budesonide-formoterol (SYMBICORT) 160-4.5 mcg/actuation inhaler Inhale 2 Puffs as instructed twice daily. furosemide (LASIX) 20 mg tablet Take 1 tablet by mouth once daily. (Patient not taking: Reported on11/12/2021 ) denosumab (PROLIA) 60 mg/mL Inject subcutaneously once every 6 months. dilTIAZem CD (CARDIZEM CD) 180 mg 24 hr capsule Take 1 capsule by mouth once daily. albuterol HFA (VENTOLIN HFA) 90 mcg/actuation inhaler Inhale 2 Puffs as instructed every 4 hours asneeded for wheezing/shortness of breath. melatonin 3 mg tablet Take 3 mg by mouth. qhs acetaminophen (TYLENOL) 325 mg cap Take by mouth as needed. MULTIVITAMIN ORAL Take 1 tablet by mouth once daily. calcium, elemental, tab Take 1 tablet by mouth twice daily. Current Facility-Administered Medications Medication Dose Route Frequency perflutren lipid microspheres 1.3 mL in NaCl (PF) 0.9% 10 mL injection (DEFINITY) INTRAVENOUS DIRECTED PRN sodium chloride 0.9 % (flush) 10 mL (BD POSIFLUSH) 10 mL INTRAVENOUS DIRECTED PRN ALLERGIES: ALLERGIES Allergen Reactions Amoxicillin Rash Asa [Salicylates] Swelling lip swelling Diclofenac Shortness of Breath Iodine Shortness of Breath Monistat 1 [Tiocona* Other: See Comments Burning Shell Fish [Other] Anaphylaxis Metoprolol Intolerance SOB PAST MEDICAL HISTORY Diagnosis Date Arthritis Diastolic dysfunction Grade I Disorder of bone and cartilage, unspecified Diverticulosis 2009 colonoscopy History of transfusion HOCM (hypertrophic obstructive cardiomyopathy) (HCC) Insomnia, unspecified Melanocytic Nevocellular Nevi pigmented moles of trunk: back mainly 08/02/2011 Mitral valve disorders Monoclonal gammopathy 04/2017 Other diseases of lung, not elsewhere classified restrictive lung disease Other pulmonary embolism and infarction 07/25/2012 ? had pe with normal d dimer. saw pulmonary. not convinced she did have one. Small airways disease Possible asthma. Patient unable to perform definitive test Unspecified essential hypertension PAST SURGICAL HISTORY Procedure Laterality Date BACK SURGERY HX BIOPSY BREAST OPEN INCISIONAL left Bx of breast, incisional COLONOSCOPY FLX DX W/COLLJ SPEC WHEN PFRMD 10/27/2004 Colonoscopy COLONOSCOPY FLX DX W/COLLJ SPEC WHEN PFRMD 02/22/2010 Colonoscopy COLONOSCOPY FLX DX W/COLLJ SPEC WHEN PFRMD 03/19/2015 Colonoscopy CORRECT BUNION,SIMPLE CORRECTION HAMMERTOE EYE SURGERY HX PAST SURGICAL HISTORY OF scoliosis surgery PAST SURGICAL HISTORY OF laser kidney stone TONSILLECTOMY HX TONSILLECTOMY PRIMARY/SECONDARY <AGE 11 Tonsillectomy FAMILY HISTORY Problem Relation Age of Onset Colon Cancer Mother 56 Hypertension Mother Colon Cancer Father Diabetes Father Hypertension Maternal Grandmother Social History Tobacco Use Smoking status: Never Smoker Smokeless tobacco: Never Used Tobacco comment: Father smoked in childhood home. Spouse does not smoke. Vaping Use Vaping Use: Never used Substance Use Topics Alcohol use: Yes Alcohol/week: 1.7 standard drinks Comment: Occasionally. Drug use: No Reviewed current medications, allergies, past medical history, surgical history, family history andsocial history today. REVIEW OF SYSTEMS GI: Negative for change in bowel habit : Negative All other reviewed and negative other than HPI. HEALTH MAINTENANCE: Reviewed health maintenance issues today and recommended the following in detail. BP CONTROLLED (<130/80) Never done SHINGRIX VACCINE(2 of 3). Discussed with patient. COVID-19 VACCINE(4 - Booster for Moderna series) due on 08/06/2021 VITALS: BP 150/72 Pulse 96 Wt 56.7 kg (125 lb) BMI 22.50 kg/m Last 4 Encounter Wt Readings: Date: Wt: 11/12/2021 55.8 kg (123 lb) 10/12/2021 59.1 kg (130 lb 3.2 oz) 09/16/2021 60 kg (132 lb 3.2 oz) 09/07/2021 59.9 kg (132 lb) PHYSICAL EXAMINATION: General appearance: Well appearing, alert, in no acute distress, well-hydrated, well nourished. Skin: Skin color, texture, turgor normal, no suspicious rashes or lesions Head: Normocephalic, no masses, lesions, tenderness or abnormalities Neck: Supple, no adenopathy; thyroid symmetric, normal size, no bruits Back: Hx of scoliosis. Lungs: Restrictive breathing evidenced of scoliosis. Chronic SOB, especially with exertion. Decreased entry throughout lobes bilat. Heart: RRR without murmur, gallop, or rubs. No ectopy Abdomen: Normal abdominal exam, Abdomen soft, non-tender. Bowel sounds normal. No masses, organomegaly Extremities: No deformities, edema, skin discoloration, clubbing or cyanosis. Good capillary refill. Musculoskeletal: No joint swelling, deformity, or tenderness Peripheral pulses: Normal Neuro: Negative ASSESSMENT/PLAN: 1. Weight loss - ICD9: 783.21, ICD10: R63.4 (primary diagnosis) -start with labs. Monitor intake. Recheck one month - CBC + DIFF - COMP METABOLIC PANEL - TSH BLD 2. Essential hypertension - ICD9: 401.9, ICD10: I10 - suboptimal control - Continue current medication(s) - Follow up in 1 month for BP recheck. - Goal of BP <130/80 - CBC + DIFF - COMP METABOLIC PANEL - LIPID PANEL BASIC - DILTIAZEM SR 180 MG 24 HR CAP - LIPID PANEL BASIC 3. Hypercalcemia - ICD9: 275.42, ICD10: E83.52 - CALCIUM IONIZED BLOOD 4. Non-rheumatic mitral regurgitation - ICD9: 424.0, ICD10: I34.0 5. Monoclonal gammopathy - ICD9: 273.1, ICD10: D47.2 6. Mitral valve prolapse - ICD9: 424.0, ICD10: I34.1 7. Bilateral carotid artery stenosis - ICD9: 433.10, 433.30, ICD10: I65.23 - up to date 8. Obstructive cardiomyopathy (HCC) - ICD9: 425.4, ICD10: I42.8 - per cardiology Markus Rascon RTO in four weeks and prn. documented in this encounterPromedica Bay [facility]06-20-2022 Miscellaneous Notes* Addendum Note - Evette William APRN.CNP - 11/22/2021 2:44 PM EDT Addended by: EVETTE WILLIAM on: 11/22/2021 02:44 PM Modules accepted: Orders * Addendum Note - Evette William APRN.CNP - 11/22/2021 2:43 PM EDT Addended by: EVETTE WILLIAM on: 11/22/2021 02:43 PM Modules accepted: Orders documented in this encounterPromedica Bay Park Hospital06-20-2022 Miscellaneous Notes* Telephone Encounter - Julia Cook LPN - 11/22/2021 11:51 AM EDT Patient has been identified by name and date of : Yes Pending Prescriptions Disp Refills BUDESONIDE-FORMOTEROL HFA 160 MCG-4.5 MCG/ACTUATION AEROSOL INHALER 10.2 g 5 Sig: Inhale 2 Puffs as instructed twice daily. BETI: No RX INSTRUCTIONS: Patient aware RX will be sent to pharmacy. No need to notify patient. Julia Cook LPN documented in this encounterPromedica Bay Park Hospital05-19-2022 Miscellaneous Notes* Telephone Encounter - Shanita Alston LPN - 10/21/2021 1:08 PM EDT Spoke with pt about test results and recommendations. Verbalizes understanding and is agreeable. Shanita Alston LPN * Telephone Encounter - Shanita Alston LPN - 10/21/2021 11:14 AM EDT Voicemail msg left for pt to return call to [facility] to review test results and recommendations. Office phone number provided. Shanita Alston LPN * Telephone Encounter - Shanita Alston LPN - 10/21/2021 11:12 AM EDT ----- Message from Breanna Theodore APRN.LIVESTOCK SHOWMAN sent at 10/21/2021 11:07 AM EDT ----- Please call the patient and report renal function and BNP are within normal limits. Would recommendcontinuing current medical therapy for now. Follow low sodium diet and monitor daily weights. Patient should notify our office if lower extremity edema worsens again. Breanna Theodore APRN.MARIBELL documented in this encounterPromedica Bay Park Hospital05-17-2022 Miscellaneous Notes* Telephone Encounter - Norma Martinez LPN - 10/19/2021 3:33 PM EDT Ms Mitchell returned our call and was given Breanna Theodore NP's response with instructions. She states verbal understanding and said she will get her labs done tomorrow am. as ordered in this encounter. Norma Martinez LPN * Telephone Encounter - Rosalind Bailey RN - 10/19/2021 1:47 PM EDT Left message on voicemail requesting a return call regarding Breanna's message and recommendations.Office phone number provided. Rosalind Bailey RN * Telephone Encounter - Breanna Thedoore APRN.MARIBELL - 10/19/2021 12:46 PM EDT Patient has history of HCM and Grade 1 diastolic dysfunction. She may need low dose diuretic therapy; however, given HCM would like to review lab work prior to ordering new medications. BNP and BMP ordered. Breanna Theodore APRN.LIVESTOCK SHOWMAN * Telephone Encounter - Rosalind Bailey RN - 10/19/2021 10:12 AM EDT Patient calls with increasing ankle edema and blood pressure log, usually seen at [facility]. BP 153/84, 134/73 and 154/78. Given 3 days of Lasix by a PCP-[facility], swelling and blood pressure improved to 141/73, 131/63, 137/72 and 139/71. Patient scheduled appointment with Evette William on 11/12/21 for follow up in [place]. Rosalind Bailey RN documented in this encounterPromedica Bay Park Hospital05-17-2022 Miscellaneous Notes* Telephone Encounter - Gordy Green Ma - 10/19/2021 9:48 AM EDT Patient agreeable to traveling - transferred to [facility]. * Telephone Encounter - Markus Rascon MD - 10/18/2021 4:41 PM EDT See if can travel * Telephone Encounter - Hilda Borges RN - 10/18/2021 4:28 PM EDT We are now scheduling into March for our established [facility] patients. [place] Evette William NP if pt ok with driving to [place]. Please advise Hilda Borges RN * Telephone Encounter - Georgina Saenz MA - 10/18/2021 4:17 PM EDT Patient was last seen in cardiology 04/19/[address] Nolasco advised patient to F/U in 1 year with cardiology. Given patient's history & edema PCP Dr. Rascon would like patient to be seen sooner than 1 year. Please assist patient with scheduling appointment sooner than April. Georgina Saenz MA documented in this encounterPromedica Bay Park Hospital05-16-2022 Miscellaneous Notes* Telephone Encounter - Georgina Saenz MA - 10/18/2021 4:20 PM EDT Will send encounter to [facility] cardiology. Georgina Saenz MA * Telephone Encounter - Markus Rascon MD - 10/18/2021 3:55 PM EDT With her hx and edema, lets get her back in sooner. If worsening shortness of breath or edema, let us know * Telephone Encounter - Georgina Saenz MA - 10/18/2021 3:49 PM EDT Patient notified. Patient states she still has slight MARC swelling but is a lot better than it was. Swelling seems mone worse in the LEFT leg compared to the RIGHT. Last CARDIO. appt was in April & hand stitcher advised to F/U in 1 year. Patient hasn't heardfrom office & was going to reach out to schedule. Patient questions if 6 month F/U is necessaryrather than 1 Year? Please advise. Georgina Saenz MA * Telephone Encounter - Markus Rascon MD - 10/18/2021 3:09 PM EDT bp is improving but is up still slightly. How is edema? Does she have a follow up with cardiology soon? * Telephone Encounter - Di Dobson LPN - 10/18/2021 1:16 PM EDT Manual Readin/72 Pulse: 84 BP Emerald average: 149/71 P: 88 Repeat BP Check: 154/70 P86 #1 153/71 P88 #2 150/74 P92 #3 146/71 P86 #4 146/70 P87 #5 146/72 P87 #6 Reason for blood pressure check - Last BP elevated Patient is: Taking medication as prescribed Yes Took medication today Yes If no, date medication last taken N/A Experiencing side effects No BP was elevated at last appt 09/16/21. No BP medication changes were made at that time. Taking all medications as prescribed. Denies any chest pain, shortness of breath, dizziness, or headaches. Dailycaffeine use. No personal history of tobacco use; no current exposure. Alert and oriented. Pt has been identified by name and birthdate: Yes Allergies reviewed: Yes Latex allergy: no. Medication - prescribed and OTC reviewed and updated: Yes Do you need any prescription refills prior to your next visit: No Health Maintenance: Reviewed and not up to date and provider notified Patient advised that she would be contacted after review by PCP. Di Dobson LPN documented in this encounterPromedica Bay Park [facility]05-16-2022 History of Present illness Narrative* Di Dobson LPN - 10/18/2021 1:15 PM EDT Manual Readin/72 Pulse: 84 BP Emerald average: 149/71 P: 88 Repeat BP Check: 154/70 P86 #1 153/71 P88 #2 150/74 P92 #3 146/71 P86 #4 146/70 P87 #5 146/72 P87 #6 Reason for blood pressure check - Last BP elevated Patient is: Taking medication as prescribed Yes Took medication today Yes If no, date medication last taken N/A Experiencing side effects No BP was elevated at last appt 09/16/21. No BP medication changes were made at that time. Taking all medications as prescribed. Denies any chest pain, shortness of breath, dizziness, or headaches. Dailycaffeine use. No personal history of tobacco use; no current exposure. Alert and oriented. Pt has been identified by name and birthdate: Yes Allergies reviewed: Yes Latex allergy: no. Medication - prescribed and OTC reviewed and updated: Yes Do you need any prescription refills prior to your next visit: No Health Maintenance: Reviewed and not up to date and provider notified Patient advised that she would be contacted after review by PCP. Di Dobson LPN documented in this encounterPromedica Bay [facility] Hospital05-12-2022 Miscellaneous Notes* Telephone Encounter - Nain Castillo Ma - 10/14/2021 1:21 PM EDT Patient was notified Nain Castillo Ma * Telephone Encounter - Markus Rascon MD - 10/14/2021 12:51 PM EDT Can start it after the echo * Telephone Encounter - Zora Bella LPN - 10/14/2021 11:34 AM EDT Pt was seen by Emmanuel 10/12/21 & was given an Rx for lasix d/t swelling in both ankles & increased BP. Pt has not started taking it yet. Pt calling to report her BP earlier this am was 144/73 & right before calling office it was 154/78. Pt reports her right ankle is no longer swollen & left ankle is just slightly swollen. Pt is scheduled for an echo tomorrow & is concerned that she will not be able to complete test without needing to use the restroom if she starts the lasix. Pt asking if she still needs to take it? Advised pt that she reports she still has some swelling & BP is still elevated but I would check about taking it tomorrow prior to echo. Zora Bella LPN documented in this encounterPromedica Bay Park Hospital05-11-2022 Miscellaneous Notes* Telephone Encounter - Otto Salomon LPN - 10/13/2021 12:57 PM EDT TC to pt, notified of provider response. She verbalized understanding. Otto Salomon LPN * Telephone Encounter - Debbie Constantino APRN.CNP - 10/13/2021 12:45 PM EDT Can please let patient know that I received her lab results. Everything there looks stable. Lets have her do lasix daily X 3 days and see if that gets some of the fluid out of her ankles and helps her blood pressure. Please sent me an update next week with blood pressures and ankle swelling. Continue to get the echo, as planned. Watch sodium and prop feet. documented in this encounterPromedica Bay Park Hospital05-10-2022 Instructions* Patient Instructions* Debbie Constantino APRN.CNP - 10/12/2021 12:28 PM EDT 1. Get labs. 2. Schedule echocardiogram. 3. Prop feet. 4. Limit sodium. How to limit salt (sodium) to avoid swelling and hypertension: Keep your daily sodium intake to 2 3 4 grams Keep your daily sodium intake to 2000 3000 4000 mg DO: Read labels Keep a food diary for the first week of restriction - must include snacks! Bake or broil your foods DO NOT DRINK: V8 juice Tomato juice Canned soups DO NOT EAT: Canned food Tomato Sauce Barbecue Sauce Soy Sauce Pickles Prepared meats such as salami, corned beef, etc. Fettuccine [place] con carne Beef burrito Potato salad Cottage cheese (both regular and low fat are high in sodium) Armenian [place] Two-egg omelet, ham and cheese Chop suey (not even homemade!) Macaroni and cheese (not even homemade!) Cheeseburger Fish Sticks TIPS: Plain [place] breast is OK as sandwich meat Look for low salt soups in the grocery store- usually a bit more expensive. Debbie Constantino APRN.CNP documented in this encounterPromedica Bay Park Hospital05-10-2022 History of Present illness Narrative* Debbie Constantino APRN.CNP - 10/12/2021 12:13 PM EDT This is a 71 year old female who presents today with: Patient presents with: Acute Visit: bilateral ankle edema for a few weeks/ no redness or pain HISTORY OF PRESENT ILLNESS: Vandana Mitchell is a 71 year old female. Patient presents with: Acute Visit: bilateral ankle edema for a few weeks/ no redness or pain Pt presents today for complaint of ankle swelling. Refers that it occurred for a few days, and then improved, and is now back again. No redness/pain. Not going down overnight when sleeping, but propping does help. No SOB. No CP/palpitations. Sleeps in a recliner, but not for breathing issues -- denies orthopnea. Feels like stomach feels a little bloated. Urinating adequately. Trying to watch sodium. Also notices that blood pressure has been elevated. She does follow with cardiology for hypertrophic obstructive cardiomyopathy. 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 had pe with normal d dimer. saw pulmonary. not convinced she did have one. Small airways disease Possible asthma. Patient unable to perform definitive test Unspecified essential hypertension PAST SURGICAL HISTORY Procedure Laterality Date BACK SURGERY HX BIOPSY BREAST OPEN INCISIONAL left Bx of breast, incisional COLONOSCOPY FLX DX W/COLLJ SPEC WHEN PFRMD 10/27/2004 Colonoscopy COLONOSCOPY FLX DX W/COLLJ SPEC WHEN PFRMD 02/22/2010 Colonoscopy COLONOSCOPY FLX DX W/COLLJ SPEC WHEN PFRMD 03/19/2015 Colonoscopy CORRECT BUNION,SIMPLE CORRECTION HAMMERTOE EYE SURGERY HX PAST SURGICAL HISTORY OF scoliosis surgery PAST SURGICAL HISTORY OF laser kidney stone TONSILLECTOMY HX TONSILLECTOMY PRIMARY/SECONDARY <AGE 11 Tonsillectomy ALLERGIES Amoxicillin, Asa [Salicylates], Diclofenac, Iodine, Monistat 1 [Tioconazole], Shell Fish [Other], and Metoprolol MEDICATIONS Current Outpatient Medications Medication Sig denosumab (PROLIA) 60 mg/mL Inject subcutaneously once every 6 months. dilTIAZem CD (CARDIZEM CD) 180 mg 24 hr capsule Take 1 capsule by mouth once daily. albuterol HFA (VENTOLIN HFA) 90 mcg/actuation inhaler Inhale 2 Puffs as instructed every 4 hours asneeded for wheezing/shortness of breath. melatonin 3 mg tablet Take 3 mg by mouth. qhs budesonide-formoterol (SYMBICORT) 160-4.5 mcg/actuation inhaler Inhale 2 Puffs as instructed twice daily. acetaminophen (TYLENOL) 325 mg cap Take by mouth as needed. MULTIVITAMIN ORAL Take 1 tablet by mouth once daily. calcium, elemental, tab Take 1 tablet by mouth twice daily. No current facility-administered medications for this visit. FAMILY HISTORY Problem Relation Age of Onset Colon Cancer Mother 56 Hypertension Mother Colon Cancer Father Diabetes Father Hypertension Maternal Grandmother Social History Tobacco Use Smoking status: Never Smoker Smokeless tobacco: Never Used Tobacco comment: Father smoked in childhood home. Spouse does not smoke. Vaping Use Vaping Use: Never used Substance Use Topics Alcohol use: Yes Alcohol/week: 1.7 standard drinks Comment: Occasionally. Drug use: No EXAM: BP 156/82 Pulse 98 Resp 18 SpO2 98% PHYSICAL EXAM: General Appearance: Well appearing, alert, in no acute distress, well-hydrated, well nourished.. Skin: Skin color, texture, turgor normal, no suspicious rashes or lesions. Head: Normocephalic, no masses, lesions, tenderness or abnormalities. Eyes: Anicteric sclera. Pupils are equally round and reactive to light. Extraocular movements are intact. . Lungs: Lungs clear to auscultation. No wheezing, rhonchi, rales.. Heart: RRR without murmur, gallop, or rubs. No ectopy. Abdomen: Abdomen soft, non-tender. Bowel sounds normal. No masses, organomegaly. Extremities: No deformities, skin discoloration, clubbing or cyanosis. Good capillary refill. +1 pitting bilateral ankle edema. Neurologic: Gait normal. ASSESSMENT/PLAN: 1. Swelling - ICD9: 782.3, ICD10: R60.9 (primary diagnosis) Patient with a history of hypokalemia. We will go ahead and get labs. She is in no acute distress today. Once we receive labs back tomorrow, consider starting diuretic. Also discussed with patient regarding propping feet and limiting sodium. Because of her history of cardiomyopathy, we will go ahead and get repeat echo since last echo was 2+ years ago. - COMP METABOLIC PANEL - CBC + DIFF - MAGNESIUM BLD - ECHO - PERFLUTREN LIPID MICROSPHERES 1.1 MG/ML INJECTION IN NS 10 ML - SODIUM CHLORIDE 0.9 % (FLUSH) INJECTION SYRINGE 2. Multiple thyroid nodules - ICD9: 241.1, ICD10: E04.2 - TSH BLD 3. Obstructive cardiomyopathy (HCC) - ICD9: 425.4, ICD10: I42.8 - ECHO - PERFLUTREN LIPID MICROSPHERES 1.1 MG/ML INJECTION IN NS 10 ML - SODIUM CHLORIDE 0.9 % (FLUSH) INJECTION SYRINGE Discussed treatment plan and patient voices understanding. Patient's questions answered appropriately. Medications and potential side effects were discussed and patient voices understanding. Return to the office as scheduled or as needed for worsening/no improvement. Debbie Constantino APRN.LIVESTOCK SHOWMAN This note was partially generated using Azimo voice recognition system. Note was reviewed for accuracy. There may be minor misspellings or grammar miscues with Azimo voice recognition. 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 documented in this encounterPromedica Bay Park Hospital04-14-2022 Miscellaneous Notes* Telephone Encounter - Markus Rascon MD - 09/16/2021 2:50 PM EDT noted * Telephone Encounter - JAMIE Dawkins - 09/16/2021 2:26 PM EDT Spoke with patient who verbalizes understanding of providers message. Patient states that she has been having some shoulder pain and is scheduled on 09/21/21 at [facility]. She says she is going to take the X-rays of her hip to this appointment to see if the arthritis can be addressed there. She states she does not want a referral at this time and will call back if she has any further issues. JAMIE Dawkins * Telephone Encounter - Markus Rascon MD - 09/16/2021 2:22 PM EDT Xray shows mild arthritis in the hip. Would she be willing to try physical therapy or orthopedic referral? documented in this encounterPromedica Bay Park Hospital04-14-2022 History of Present illness Narrative* Ashley Cho RT(Andrea) - 09/16/2021 10:40 AM EDT Radiology Service Progress Note PATIENT NAME: Vandana Mitchell DATE OF SERVICE: September 16, 2021 TIME: 10:51 AM PATIENT IDENTITY VERIFICATION COMPLETED USING TWO (2) IDENTIFIERS: Name and Date of confirmedby patient verbally. FALL SCREENING: Has the patient had 2 falls in the last year or 1 fall with injury or currently using an Ambulatory Assistive Device (Walker, Cane, Wheelchair, Crutches, etc.)? No PATIENT GENDER DATA: Female. status: : No status: NO. PATIENT RELEVANT IMPLANT DATA REVIEWED: Yes RADIOLOGY DEPARTMENT: General X-ray: Exam(s) Completed: Pelvis X-Ray: Pelvis with Hip Right PERIPHERAL IV DATA: Not applicable SIGNED BY: RT Catherine(R) September 16, 2021 10:51 AM documented in this encounterProm[facility]-14-[facility]22 History of Present illness Narrative* Markus Rascon MD - 09/16/2021 9:59 AM EDT Patient presents with: Follow Up: LEFT shoulder & RIGHT hip pain HPI: Patient presents today for office visit for follow up. Has an appt in December with Dr. Campbell for pulmonary. Saw her in June as well. Seeing maricruz pantoja on the . Shoulder is not hot or red. Has had some chronic issues on and off. Really bothered her since covid. No fever. No numbness or tingling down the arm. Was on prednisone and just finished it. It did help but made her jittery. Having issues with her right hip. Began bothering her just when getting up. The last two days it has been all the time when walking. Pain is more on her buttock. Slightly painful when laying on her side. No pain or tingling down the arm. No new issues controlling bowel or bladder. No chest pain or shortness of breath. She saw Dr. Null who recommended prolia. Has seen Dr. Nolasco. Had thyroid us which was done. Has had some issus with focus and stress. She is still able to complete most tasks. Discussed what to watch for if we are ruling out memory loss. Using melatonin 6 mg at hs. Working well. Has had some slight change in bm's. Had colonscopy back in September. No bloody or black stools. Her diet has not changed. Discussed fluid and fiber. Discussed probiotic otc. Red flags for re-assessment reviewed with patient in detail. See previous ov: HTN: Patient is compliant with meds Yes Denies side effects: Yes. Chest pain: No. Edema: Rare ankle edema at the end of the day Dizziness: No. Cardio:still seeing cardiology Heme:sees Oncology this year yet. PULM: is overdue for follow up. She is still significantly short of breath. Still coughing from time to time. Again suggested she follow up with them. She is still using the symbicort. Discussed her osteoporosis. Offered prolia and wants to think about it. She asks if can see endo. Has issues sleeping. Has been there for years. No significant anxiety Not a snorer. Discussed melatonin. Last thyroid Us recommended we do not continue to follow up on them. Carotids were unchanged. Had colon done. Has occasional numbness in her cheek area still on the left side. Has been there for yeas and not gotten worse. No headache No numbness or weakness elsewhere. Can happen up to a few times a day or not at all. Lasts less than a minute. Discussed doing imaging and or see neurology. She elects to watch it. Red flags for re-assessment reviewed with patient in detail. PFT's: IMPRESSION: Spirometry shows no obstruction.The reduced FVC suggests restriction. Recommend lung volumes if clinically indicated. The presence of a reduced lung diffusion capacity - that normalizes when measured independent of alveolar volume (kCO) is consistent with a nonparenchymal disorder but does not rule out parenchymal or pulmonary vascular disorder. IMPRESSION: 1. Osteoporosis in the bilateral hips and left femoral neck. 2. Statistically significant interval decrease in bone mineral density. CT: IMPRESSION: Synovitis or synovial-based process of the glenohumeral joint. MRI may help to further evaluate this finding. Findings of early rotator cuff arthropathy. MEDICATIONS: Current Outpatient Medications Medication Sig denosumab (PROLIA) 60 mg/mL Inject subcutaneously once every 6 months. dilTIAZem CD (CARDIZEM CD) 180 mg 24 hr capsule Take 1 capsule by mouth once daily. albuterol HFA (VENTOLIN HFA) 90 mcg/actuation inhaler Inhale 2 Puffs as instructed every 4 hours asneeded for wheezing/shortness of breath. melatonin 3 mg tablet Take 3 mg by mouth. qhs budesonide-formoterol (SYMBICORT) 160-4.5 mcg/actuation inhaler Inhale 2 Puffs as instructed twice daily. acetaminophen (TYLENOL) 325 mg cap Take by mouth as needed. MULTIVITAMIN ORAL Take 1 tablet by mouth once daily. calcium, elemental, tab Take 1 tablet by mouth twice daily. No current facility-administered medications for this visit. 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 had pe with normal d dimer. saw pulmonary. not convinced she did have one. Small airways disease Possible asthma. Patient unable to perform definitive test Unspecified essential hypertension PAST SURGICAL HISTORY Procedure Laterality Date BACK SURGERY HX BIOPSY BREAST OPEN INCISIONAL left Bx of breast, incisional COLONOSCOPY FLX DX W/COLLJ SPEC WHEN PFRMD 10/27/2004 Colonoscopy COLONOSCOPY FLX DX W/COLLJ SPEC WHEN PFRMD 02/22/2010 Colonoscopy COLONOSCOPY FLX DX W/COLLJ SPEC WHEN PFRMD 03/19/2015 Colonoscopy CORRECT BUNION,SIMPLE CORRECTION HAMMERTOE EYE SURGERY HX PAST SURGICAL HISTORY OF scoliosis surgery PAST SURGICAL HISTORY OF laser kidney stone TONSILLECTOMY HX TONSILLECTOMY PRIMARY/SECONDARY <AGE 11 Tonsillectomy FAMILY HISTORY Problem Relation Age of Onset Colon Cancer Mother 56 Hypertension Mother Colon Cancer Father Diabetes Father Hypertension Maternal Grandmother Social History Tobacco Use Smoking status: Never Smoker Smokeless tobacco: Never Used Tobacco comment: Father smoked in childhood home. Spouse does not smoke. Vaping Use Vaping Use: Never used Substance Use Topics Alcohol use: Yes Alcohol/week: 1.7 standard drinks Comment: Occasionally. Drug use: No Reviewed current medications, allergies, past medical history, surgical history, family history andsocial history today. REVIEW OF SYSTEMS All other reviewed and negative other than HPI. HEALTH MAINTENANCE: Reviewed health maintenance issues today and recommended the following in detail. DEPRESSION SCREENING- Depression Screening 02/27/2017 11/23/2017 02/27/2018 09/16/2021 PHQ-2 Score 0 - 0 1 PHQ-9 Score - - - - MELVIN-2 Total Score - 0 - - Depression screening tool completed and reviewed. Based on score and interview, patient is not at risk for depression. Screening tool discussed with patient, and I recommended no further interventionat this time. Related to her shoulder ADVANCE DIRECTIVE DISCUSSION has dpoa, is surrogate, is on file MAMMOGRAM due on 11/12/2021 VITALS: BP 144/82 Pulse 80 Resp 16 Wt 60 kg (132 lb 3.2 oz) BMI 24.18 kg/m Last 4 Encounter Wt Readings: Date: Wt: 09/16/2021 60 kg (132 lb 3.2 oz) 09/07/2021 59.9 kg (132 lb) 07/02/2021 59.4 kg (131 lb) 06/11/2021 59.9 kg (132 lb) PHYSICAL EXAMINATION: General appearance: Well appearing, alert, in no acute distress, well-hydrated, well nourished. Skin: Skin color, texture, turgor normal, no suspicious rashes or lesions Head: Normocephalic, no masses, lesions, tenderness or abnormalities Eyes: Anicteric sclera. Pupils are equally round and reactive to light. Extraocular movements are intact. BACK: Normal curvature of spine. No spine tenderness. Straight leg test negative. Deep tendon reflexes 2+/4 at patellas. Normal lower extremity strength. Lungs: Lungs clear to auscultation. No wheezing, rhonchi, rales Heart: RRR without murmur, gallop, or rubs. No ectopy Abdomen: Normal abdominal exam, Abdomen soft, non-tender. Bowel sounds normal. No masses, organomegaly Extremities: No deformities, edema, skin discoloration, clubbing or cyanosis. Good capillary refill. , shoulder shows limited abduction. Positive empty can sign. Hip shows tenderness over greater trochanter. Positive figure four. ASSESSMENT/PLAN: 1. HOCM (hypertrophic obstructive cardiomyopathy) (HCC) - ICD9: 425.11, ICD10: I42.1 (primary diagnosis) - continue current regimen. Recheck bp in one month. 2. Screening breast examination - ICD9: V76.10, ICD10: Z12.39 - Follow up for annual exam in one year. - [facility] SCREENING W M[facility] 3. Encounter for screening mammogram for malignant neoplasm of breast - ICD9: V76.12, ICD10: Z12.31 } - [facility] SCREENING W M[facility] 4. Hip pain, right - ICD9: 719.45, ICD10: M25.551 - consider therapy or ortho - XR HIP GENERAL 3V PELV/AP/LAT RIGHT 5. Shoulder tendonitis, left - ICD9: 726.10, ICD10: M77.8 - see ortho 6. Obstructive cardiomyopathy (HCC) - ICD9: 425.4, ICD10: I42.8 - as above. 7. Restrictive 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 - ICD9: 518.89, 737.43, ICD10: J98.4, M41.9 - call if any worsening. Markus Rascon documented in this encounterPromed[facility]04-12-2022 Miscellaneous Notes* Telephone Encounter - Zarina Sparks Ma - 09/14/2021 9:24 AM EDT Patient was made aware of the results. Patient verbalizes understanding. Zarina Sparks Ma * Telephone Encounter - Markus Rascon MD - 09/13/2021 4:[address] shows chronic rotator cuff tear and inflammation and swelling in the joint. If it gets hot or red, we need to see it. Otherwise would recommend ortho look at it. documented in this encounterPromedica [facility]04-11-2022 History of Present illness Narrative* RT Maddy(R) - 09/13/2021 1:40 PM EDT Radiology Service Progress Note PATIENT NAME: Vandana Mitchell DATE OF SERVICE: September 13, 2021 TIME: 2:10 PM PATIENT IDENTITY VERIFICATION COMPLETED USING TWO (2) IDENTIFIERS: Name and Date of confirmedby patient verbally. FALL SCREENING: Has the patient had 2 falls in the last year or 1 fall with injury or currently using an Ambulatory Assistive Device (Walker, Cane, Wheelchair, Crutches, etc.)? No PATIENT GENDER DATA: Female. status: : No status: NO. PATIENT RELEVANT IMPLANT DATA REVIEWED: Not Applicable RADIOLOGY DEPARTMENT: CT; Exam(s) Completed: lt shoulder PERIPHERAL IV DATA: Not applicable SIGNED BY: RT Serjio(R) September 13, 2021 2:10 PM documented in this encounterPromedica [facility]04-08-2022 Miscellaneous Notes* Telephone Encounter - Lizzie Gill - 09/10/2021 9:40 AM EDT 1st attempt: LVM to call back and schedule * Telephone Encounter - Zarina Sparks Ma - 09/09/2021 6:29 PM EDT Please help pt set up CT scan * Telephone Encounter - May Bridges PA-C - 09/09/2021 6:27 PM EDT Yeah, that won't work it if's that old. Telephone on 09/07/21 CT SHOULDER WO IVCON LT Other injury of unspecified muscle, fascia and tendon at shoulder and upper arm level, unspecified arm, initial encounter ThanksAdan PA-C * Telephone Encounter - May Zabala RN - 09/08/2021 12:48 PM EDT Patient returned call and given provider's message below. 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 Asking if it issafe for her to have MRI? Also reports she has allergy to iodine and concerned about having IV contrast. * Telephone Encounter - Nain Castillo Ma - 09/08/2021 12:15 PM EDT Left message for patient to call office back Nain Castillo Ma * Telephone Encounter - May Bridges PA-C - 09/07/2021 6:08 PM EDT Please advise XR suggests rotator cuff tear. I am placed orders for MRI left shoulder. Please schedule Does she need anxiolysis for MRI? Thanks, Adan Bridges PA-C documented in this encounterPromedica [facility]04-07-2022 Miscellaneous Notes* Telephone Encounter - Zarina Sparks Ma - 09/09/2021 6:29 PM EDT Pt notified * Telephone Encounter - May Bridges PA-C - 09/09/2021 6:24 PM EDT Yes that's fine. Thanks, Adan Bridges PA-C * Telephone Encounter - Ania Rosario RN - 09/09/2021 2:25 PM EDT Patient calling to say she started Prednisone 40 mg yesterday morning. She took two 20 mg tablets as directed. Last evening she felt jittery. She checked her BP which was 174/92 HR 116. This morning she only took one tablet 20 mg. Her BP is 143/74 HR 90 and she is not feeling shaky or jittery at this time. She is asking if she should continue to take only one 20 mg Prednisone tablet instead of two? -Also, please see TE on 09/07 re: MRI. Ania Rosario RN documented in this encounterPromedica [facility]03-29-2022 Miscellaneous Notes* Telephone Encounter - Otto Salomon LPN - 08/31/2021 1:57 PM EDT Referral sent to Maricruz Pantoja. Otto Salomon LPN * Telephone Encounter - Markus Rascon MD - 08/31/2021 12:37 PM EDT done * Telephone Encounter - Hernandez Toro LPN - 08/31/2021 9:51 AM EDT Patient calling she is having problems with left shoulder, pain when raising or moving, makes popping noise at times. she had seen Dr Liang (now retired) in the past for same issue. Patient requesting [facility] not sure who is shoulder specialist. Pending consult, needs diagnosis. Please advise documented in this encounterPromedica [facility]06-22-2021 History of Present illness Narrative* Radha Escamilla RT(R) - 11/24/2020 2:50 PM EDT Radiology Service Progress Note PATIENT NAME: Vandana Mitchell DATE OF SERVICE: November 24, 2020 TIME: 2:57 PM PATIENT IDENTITY VERIFICATION COMPLETED USING TWO (2) IDENTIFIERS: Name and Date of confirmedby patient verbally. FALL SCREENING: Has the patient had 2 falls in the last year or 1 fall with injury or currently using an Ambulatory Assistive Device (Walker, Cane, Wheelchair, Crutches, etc.)? No PATIENT GENDER DATA: Female. status: : No status: NO. 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 documented as of this encounter (statuses as of 10/14/2021) [facility] of [facility] Narrative* Problem Noted Date Resolved Date Murmur 10/05/2020 09/16/2021 Screening for colon cancer 09/24/202009/24 Muscle weakness 02/16/2015 07/21/2016 Complete uterovaginal prolapse 01/09/2015 1 Pelvic muscle wasting 01/09/2015 08/09/2018 Other pulmonary embolism and infarction 07/25/19 13 07/21/2016 Bursitis of right shoulder 10/10/201108/09 Cervicalgia 08/28/2007 08/09/2018 Overview: Intermittent symptoms GENERAL OSTEOARTHROSIS 11/18/2005 6 Unspecified asthma(493.90) 04/11 Disorder of bone and cartilage, unspecified 12/04/2019 Overview: Seen by 07/2011 - Fosamajessica resumed. documented as of this encounter (statuses as of 10/18/2021) [facility] of [facility] illness Narrative* Problem Noted Date Resolved Date Murmur 10/05/2020 09/16/2021 Screening for colon cancer 09/24/202009/24 Muscle weakness 02/16/2015 07/21/2016 Complete uterovaginal prolapse 01/09/2015 1 Pelvic muscle wasting 01/09/2015 08/09/2018 Other pulmonary embolism and infarction 07/25/19 13 07/21/2016 Bursitis of right shoulder 10/10/201108/09 Cervicalgia 08/28/2007 08/09/2018 Overview: Intermittent symptoms GENERAL OSTEOARTHROSIS 11/18/2005 6 Unspecified asthma(493.90) 04/11 Disorder of bone and cartilage, unspecified 12/04/2019 Overview: Seen by 07/2011 - Fosamax resumed. documented as of this encounter (statuses as of 10/18/2021) [facility] of [facility] Narrative* Problem Noted Date Resolved Date Murmur 10/05/2020 09/16/2021 Screening for colon cancer 09/24/202009/24 Muscle weakness 02/16/2015 07/21/2016 Complete uterovaginal prolapse 01/09/2015 1 Pelvic muscle wasting 01/09/2015 08/09/2018 Other pulmonary embolism and infarction 07/25/19 13 07/21/2016 Bursitis of right shoulder 10/10/201108/09 Cervicalgia 08/28/2007 08/09/2018 Overview: Intermittent symptoms GENERAL OSTEOARTHROSIS 11/18/2005 6 Unspecified asthma(493.90) 04/11 Disorder of bone and cartilage, unspecified 12/04/2019 Overview: Seen by 07/2011 - Fosamax resumed. documented as of this encounter (statuses as of 10/19/2021) [facility] Narrative* Problem Noted Date Resolved Date Murmur 10/05/2020 09/16/2021 Screening for colon cancer 09/24/202009/24 Muscle weakness 02/16/2015 07/21/2016 Complete uterovaginal prolapse 01/09/2015 1 Pelvic muscle wasting 01/09/2015 08/09/2018 Other pulmonary embolism and infarction 07/25/19 13 07/21/2016 Bursitis of right shoulder 10/10/201108/09 Cervicalgia 08/28/2007 08/09/2018 Overview: Intermittent symptoms GENERAL OSTEOARTHROSIS 11/18/2005 6 Unspecified asthma(493.90) 04/11 Disorder of bone and cartilage, unspecified 12/04/2019 Overview: Seen by 07/2011 - Fosamax resumed. documented as of this encounter (statuses as of 10/19/2021) [facility] Narrative* Problem Noted Date Resolved Date Murmur 10/05/2020 09/16/2021 Screening for colon cancer 09/24/202009/24 Muscle weakness 02/16/2015 07/21/2016 Complete uterovaginal prolapse 01/09/2015 1 Pelvic muscle wasting 01/09/2015 08/09/2018 Other pulmonary embolism and infarction 07/25/19 13 07/21/2016 Bursitis of right shoulder 10/10/201108/09 Cervicalgia 08/28/2007 08/09/2018 Overview: Intermittent symptoms GENERAL OSTEOARTHROSIS 11/18/2005 6 Unspecified asthma(493.90) 04/11 Disorder of bone and cartilage, unspecified 12/04/2019 Overview: Seen by 07/2011 - Fosamax resumed. documented as of this encounter (statuses as of 10/21/2021) [facility] Narrative* Problem Noted Date Resolved Date Murmur 10/05/2020 09/16/2021 Screening for colon cancer 09/24/202009/24 Muscle weakness 02/16/2015 07/21/2016 Complete uterovaginal prolapse 01/09/2015 1 Pelvic muscle wasting 01/09/2015 08/09/2018 Other pulmonary embolism and infarction 07/25/19 13 07/21/2016 Bursitis of right shoulder 10/10/201108/09 Cervicalgia 08/28/2007 08/09/2018 Overview: Intermittent symptoms GENERAL OSTEOARTHROSIS 11/18/2005 6 Unspecified asthma(493.90) 04/11 Disorder of bone and cartilage, unspecified 12/04/2019 Overview: Seen by 07/2011 - Fosamax resumed. documented as of this encounter (statuses as of 11/22/2021) [facility] Narrative* Problem Noted Date Resolved Date Murmur 10/05/2020 09/16/2021 Screening for colon cancer 09/24/202009/24 Muscle weakness 02/16/2015 07/21/2016 Complete uterovaginal prolapse 01/09/2015 1 Pelvic muscle wasting 01/09/2015 08/09/2018 Other pulmonary embolism and infarction 07/25/19 13 07/21/2016 Bursitis of right shoulder 10/10/201108/09 Cervicalgia 08/28/2007 08/09/2018 Overview: Intermittent symptoms GENERAL OSTEOARTHROSIS 11/18/2005 6 Unspecified asthma(493.90) 04/11 Disorder of bone and cartilage, unspecified 12/04/2019 Overview: Seen by 07/2011 - Fosamax resumed. documented as of this encounter (statuses as of 11/22/2021) [facility] Narrative* Problem Noted Date Resolved Date Murmur 10/05/2020 09/16/2021 Screening for colon cancer 09/24/202009/24 Muscle weakness 02/16/2015 07/21/2016 Complete uterovaginal prolapse 01/09/2015 1 Pelvic muscle wasting 01/09/2015 08/09/2018 Other pulmonary embolism and infarction 07/25/19 13 07/21/2016 Bursitis of right shoulder 10/10/201108/09 Cervicalgia 08/28/2007 08/09/2018 Overview: Intermittent symptoms GENERAL OSTEOARTHROSIS 11/18/2005 6 Unspecified asthma(493.90) 04/11 Disorder of bone and cartilage, unspecified 12/04/2019 Overview: Seen by 07/2011 - Rosalinda resumed. documented as of this encounter (statuses as of 12/18/2021) [facility] Narrative* Problem Noted Date Resolved Date Murmur 10/05/2020 09/16/2021 Screening for colon cancer 09/24/202009/24 Muscle weakness 02/16/2015 07/21/2016 Complete uterovaginal prolapse 01/09/2015 1 Pelvic muscle wasting 01/09/2015 08/09/2018 Other pulmonary embolism and infarction 07/25/19 13 07/21/2016 Bursitis of right shoulder 10/10/201108/09 Cervicalgia 08/28/2007 08/09/2018 Overview: Intermittent symptoms GENERAL OSTEOARTHROSIS 11/18/2005 6 Unspecified asthma(493.90) 04/11 Disorder of bone and cartilage, unspecified 12/04/2019 Overview: Seen by 07/2011 - Rosalinda resumed. documented as of this encounter (statuses as of 01/17/2022) [facility] Narrative* Problem Noted Date Resolved Date Murmur 10/05/2020 09/16/2021 Screening for colon cancer 09/24/202009/24 Muscle weakness 02/16/2015 07/21/2016 Complete uterovaginal prolapse 01/09/2015 1 Pelvic muscle wasting 01/09/2015 08/09/2018 Other pulmonary embolism and infarction 07/25/19 13 07/21/2016 Bursitis of right shoulder 10/10/201108/09 Cervicalgia 08/28/2007 08/09/2018 Overview: Intermittent symptoms GENERAL OSTEOARTHROSIS 11/18/2005 6 Unspecified asthma(493.90) 04/11 Disorder of bone and cartilage, unspecified 12/04/2019 Overview: Seen by 07/2011 - Rosalinda resumed. documented as of this encounter (statuses as of 01/18/2022) [facility]2021 History of Past illness Narrative* Problem Noted Date Resolved Date Murmur 10/05/2020 09/16/2021 Screening for colon cancer 09/24/202009/24 Muscle weakness 02/16/2015 07/21/2016 Complete uterovaginal prolapse 01/09/2015 1 Pelvic muscle wasting 01/09/2015 08/09/2018 Other pulmonary embolism and infarction 07/25/19 13 07/21/2016 Bursitis of right shoulder 10/10/201108/09 Cervicalgia 08/28/2007 08/09/2018 Overview: Intermittent symptoms GENERAL OSTEOARTHROSIS 11/18/2005 6 Unspecified asthma(493.90) 04/11 Disorder of bone and cartilage, unspecified 12/04/2019 Overview: Seen by 07/2011 - Rosalinda resumed. documented as of this encounter (statuses as of 01/22/2022) [facility]21 History of Past illness Narrative* Problem Noted Date Resolved Date Murmur 10/05/2020 09/16/2021 Screening for colon cancer 09/24/202009/24 Muscle weakness 02/16/2015 07/21/2016 Complete uterovaginal prolapse 01/09/2015 1 Pelvic muscle wasting 01/09/2015 08/09/2018 Other pulmonary embolism and infarction 07/25/19 13 07/21/2016 Bursitis of right shoulder 10/10/201108/09 Cervicalgia 08/28/2007 08/09/2018 Overview: Intermittent symptoms GENERAL OSTEOARTHROSIS 11/18/2005 6 Unspecified asthma(493.90) 04/11 Disorder of bone and cartilage, unspecified 12/04/2019 Overview: Seen by 07/2011 - Foslaurie resumed. documented as of this encounter (statuses as of 01/22/2022) [facility] History of Past illness Narrative* Problem Noted Date Resolved Date Murmur 10/05/2020 09/16/2021 Screening for colon cancer 09/24/202009/24 Muscle weakness 02/16/2015 07/21/2016 Complete uterovaginal prolapse 01/09/2015 1 Pelvic muscle wasting 01/09/2015 08/09/2018 Other pulmonary embolism and infarction 07/25/19 13 07/21/2016 Bursitis of right shoulder 10/10/201108/09 Cervicalgia 08/28/2007 08/09/2018 Overview: Intermittent symptoms GENERAL OSTEOARTHROSIS 11/18/2005 6 Unspecified asthma(493.90) 04/11 Disorder of bone and cartilage, unspecified 12/04/2019 Overview: Seen by 07/2011 - Foslaurie resumed. documented as of this encounter (statuses as of 01/25/2022) [facility] History of Past illness Narrative* Problem Noted Date Resolved Date Murmur 10/05/2020 09/16/2021 Screening for colon cancer 09/24/202009/24 Muscle weakness 02/16/2015 07/21/2016 Complete uterovaginal prolapse 01/09/2015 1 Pelvic muscle wasting 01/09/2015 08/09/2018 Other pulmonary embolism and infarction 07/25/19 13 07/21/2016 Bursitis of right shoulder 10/10/201108/09 Cervicalgia 08/28/2007 08/09/2018 Overview: Intermittent symptoms GENERAL OSTEOARTHROSIS 11/18/2005 6 Unspecified asthma(493.90) 04/11 Disorder of bone and cartilage, unspecified 12/04/2019 Overview: Seen by 07/2011 - Rosalinda resumed. documented as of this encounter (statuses as of 01/28/2022) [facility] History of Past illness Narrative* Problem Noted Date Resolved Date Murmur 10/05/2020 09/16/2021 Screening for colon cancer 09/24/202009/24 Muscle weakness 02/16/2015 07/21/2016 Complete uterovaginal prolapse 01/09/2015 1 Pelvic muscle wasting 01/09/2015 08/09/2018 Other pulmonary embolism and infarction 07/25/19 13 07/21/2016 Bursitis of right shoulder 10/10/201108/09 Cervicalgia 08/28/2007 08/09/2018 Overview: Intermittent symptoms GENERAL OSTEOARTHROSIS 11/18/2005 6 Unspecified asthma(493.90) 04/11 Disorder of bone and cartilage, unspecified 12/04/2019 Overview: Seen by 07/2011 - Rosalinda resumed. documented as of this encounter (statuses as of 02/03/2022) [facility] History of Past illness Narrative* Problem Noted Date Resolved Date Murmur 10/05/2020 09/16/2021 Screening for colon cancer 09/24/202009/24 Muscle weakness 02/16/2015 07/21/2016 Complete uterovaginal prolapse 01/09/2015 1 Pelvic muscle wasting 01/09/2015 08/09/2018 Other pulmonary embolism and infarction 07/25/19 13 07/21/2016 Bursitis of right shoulder 10/10/201108/09 Cervicalgia 08/28/2007 08/09/2018 Overview: Intermittent symptoms GENERAL OSTEOARTHROSIS 11/18/2005 6 Unspecified asthma(493.90) 04/11 Disorder of bone and cartilage, unspecified 12/04/2019 Overview: Seen by 07/2011 - Rosalinda resumed. documented as of this encounter (statuses as of 02/17/2022) [facility] History of Past illness Narrative* Problem Noted Date Resolved Date Murmur 10/05/2020 09/16/2021 Screening for colon cancer 09/24/202009/24 Muscle weakness 02/16/2015 07/21/2016 Complete uterovaginal prolapse 01/09/2015 1 Pelvic muscle wasting 01/09/2015 08/09/2018 Other pulmonary embolism and infarction 07/25/19 13 07/21/2016 Bursitis of right shoulder 10/10/201108/09 Cervicalgia 08/28/2007 08/09/2018 Overview: Intermittent symptoms GENERAL OSTEOARTHROSIS 11/18/2005 6 Unspecified asthma(493.90) 04/11 Disorder of bone and cartilage, unspecified 12/04/2019 Overview: Seen by 07/2011 - Fosamax resumed. documented as of this encounter (statuses as of 02/17/2022) [facility] History of Past illness Narrative* Problem Noted Date Resolved Date Murmur 10/05/2020 09/16/2021 Screening for colon cancer 09/24/202009/24 Muscle weakness 02/16/2015 07/21/2016 Complete uterovaginal prolapse 01/09/2015 1 Pelvic muscle wasting 01/09/2015 08/09/2018 Other pulmonary embolism and infarction 07/25/19 13 07/21/2016 Bursitis of right shoulder 10/10/201108/09 Cervicalgia 08/28/2007 08/09/2018 Overview: Intermittent symptoms GENERAL OSTEOARTHROSIS 11/18/2005 6 Unspecified asthma(493.90) 04/11 Disorder of bone and cartilage, unspecified 12/04/2019 Overview: Seen by 07/2011 - Fosamax resumed. documented as of this encounter (statuses as of 02/28/2022) [facility] History of Past illness Narrative* Problem Noted Date Resolved Date Murmur 10/05/2020 09/16/2021 Screening for colon cancer 09/24/202009/24 Muscle weakness 02/16/2015 07/21/2016 Complete uterovaginal prolapse 01/09/2015 1 Pelvic muscle wasting 01/09/2015 08/09/2018 Other pulmonary embolism and infarction 07/25/19 13 07/21/2016 Bursitis of right shoulder 10/10/201108/09 Cervicalgia 08/28/2007 08/09/2018 Overview: Intermittent symptoms GENERAL OSTEOARTHROSIS 11/18/2005 6 Unspecified asthma(493.90) 04/11 Disorder of bone and cartilage, unspecified 12/04/2019 Overview: Seen by 07/2011 - Fosamax resumed. documented as of this encounter (statuses as of 03/18/2022) [facility] History of Past illness Narrative* Problem Noted Date Resolved Date Murmur 10/05/2020 09/16/2021 Screening for colon cancer 09/24/202009/24 Muscle weakness 02/16/2015 07/21/2016 Complete uterovaginal prolapse 01/09/2015 1 Pelvic muscle wasting 01/09/2015 08/09/2018 Other pulmonary embolism and infarction 07/25/19 13 07/21/2016 Bursitis of right shoulder 10/10/201108/09 Cervicalgia 08/28/2007 08/09/2018 Overview: Intermittent symptoms GENERAL OSTEOARTHROSIS 11/18/2005 6 Unspecified asthma(493.90) 04/11 Disorder of bone and cartilage, unspecified 12/04/2019 Overview: Seen by 07/2011 - Fosamax resumed. documented as of this encounter (statuses as of 03/22/2022) [facility] History of Past illness Narrative* Problem Noted Date Resolved Date Murmur 10/05/2020 09/16/2021 Screening for colon cancer 09/24/202009/24 Muscle weakness 02/16/2015 07/21/2016 Complete uterovaginal prolapse 01/09/2015 1 Pelvic muscle wasting 01/09/2015 08/09/2018 Other pulmonary embolism and infarction 07/25/19 13 07/21/2016 Bursitis of right shoulder 10/10/201108/09 Cervicalgia 08/28/2007 08/09/2018 Overview: Intermittent symptoms GENERAL OSTEOARTHROSIS 11/18/2005 6 Unspecified asthma(493.90) 04/11 Disorder of bone and cartilage, unspecified 12/04/2019 Overview: Seen by 07/2011 - Foslaurie resumed. documented as of this encounter (statuses as of 04/23/2022) [facility] History of Past illness Narrative* Problem Noted Date Resolved Date Murmur 10/05/2020 09/16/2021 Screening for colon cancer 09/24/202009/24 Muscle weakness 02/16/2015 07/21/2016 Complete uterovaginal prolapse 01/09/2015 1 Pelvic muscle wasting 01/09/2015 08/09/2018 Other pulmonary embolism and infarction 07/25/19 13 07/21/2016 Bursitis of right shoulder 10/10/201108/09 Cervicalgia 08/28/2007 08/09/2018 Overview: Intermittent symptoms GENERAL OSTEOARTHROSIS 11/18/2005 6 Unspecified asthma(493.90) 04/11 Disorder of bone and cartilage, unspecified 12/04/2019 Overview: Seen by 07/2011 - Foslaurie resumed. documented as of this encounter (statuses as of 04/23/2022) [facility] History of Past illness Narrative* Problem Noted Date Resolved Date Murmur 10/05/2020 09/16/2021 Screening for colon cancer 09/24/202009/241 Muscle weakness 02/16/2015 07/21/2016 Complete uterovaginal prolapse 01/09/2015 1 Pelvic muscle wasting 01/09/2015 08/09/2018 Other pulmonary embolism and infarction 07/25/19 13 07/21/2016 Bursitis of right shoulder 10/10/201108/09 Cervicalgia 08/28/2007 08/09/2018 Overview: Intermittent symptoms GENERAL OSTEOARTHROSIS 11/18/2005 6 Unspecified asthma(493.90) 04/11 Disorder of bone and cartilage, unspecified 12/04/2019 Overview: Seen by 07/2011 - Fosamax resumed. documented as of this encounter (statuses as of 05/03/2022) [facility] History of Past illness Narrative* Problem Noted Date Resolved Date Murmur 10/05/2020 09/16/2021 Screening for colon cancer 09/24/202009/24 Muscle weakness 02/16/2015 07/21/2016 Complete uterovaginal prolapse 01/09/2015 1 Pelvic muscle wasting 01/09/2015 08/09/2018 Other pulmonary embolism and infarction 07/25/19 13 07/21/2016 Bursitis of right shoulder 10/10/201108/09 Cervicalgia 08/28/2007 08/09/2018 Overview: Intermittent symptoms GENERAL OSTEOARTHROSIS 11/18/2005 6 Unspecified asthma(493.90) 04/11 Disorder of bone and cartilage, unspecified 12/04/2019 Overview: Seen by 07/2011 - Fosamax resumed. documented as of this encounter (statuses as of 05/04/2022) [facility] History of Past illness Narrative* Problem Noted Date Resolved Date Murmur 10/05/2020 09/16/2021 Screening for colon cancer 09/24/202009/24 Muscle weakness 02/16/2015 07/21/2016 Complete uterovaginal prolapse 01/09/2015 1 Pelvic muscle wasting 01/09/2015 08/09/2018 Other pulmonary embolism and infarction 07/25/19 13 07/21/2016 Bursitis of right shoulder 10/10/201108/09 Cervicalgia 08/28/2007 08/09/2018 Overview: Intermittent symptoms GENERAL OSTEOARTHROSIS 11/18/2005 6 Unspecified asthma(493.90) 04/11 Disorder of bone and cartilage, unspecified 12/04/2019 Overview: Seen by 07/2011 - Fosamax resumed. documented as of this encounter (statuses as of 05/12/2022) [facility] History of Past illness Narrative* Problem Noted Date Resolved Date Murmur 10/05/2020 09/16/2021 Screening for colon cancer 09/24/202009/24 Muscle weakness 02/16/2015 07/21/2016 Complete uterovaginal prolapse 01/09/2015 1 Pelvic muscle wasting 01/09/2015 08/09/2018 Other pulmonary embolism and infarction 07/25/19 13 07/21/2016 Bursitis of right shoulder 10/10/201108/09 Cervicalgia 08/28/2007 08/09/2018 Overview: Intermittent symptoms GENERAL OSTEOARTHROSIS 11/18/2005 6 Unspecified asthma(493.90) 04/11 Disorder of bone and cartilage, unspecified 12/04/2019 Overview: Seen by 07/2011 - Fosamax resumed. documented as of this encounter (statuses as of 05/16/2022) [facility] History of Past illness Narrative* Problem Noted Date Resolved Date Screening for colon cancer 09/24/202009/24 Muscle weakness 02/16/2015 07/21/2016 Complete uterovaginal prolapse 01/09/2015 1 Pelvic muscle wasting 01/09/2015 08/09/2018 Other pulmonary embolism and infarction 07/25/19 13 07/21/2016 Bursitis of right shoulder 10/10/201108/09 Cervicalgia 08/28/2007 08/09/2018 Overview: Intermittent symptoms GENERAL OSTEOARTHROSIS 11/18/2005 6 Unspecified asthma(493.90) 04/11 Disorder of bone and cartilage, unspecified 12/04/2019 Overview: Seen by 07/2011 - Rosalinda resumed. documented as of this encounter (statuses as of 08/31/2021) [facility] History of Past illness Narrative* Problem Noted Date Resolved Date Screening for colon cancer 09/24/202009/24 Muscle weakness 02/16/2015 07/21/2016 Complete uterovaginal prolapse 01/09/2015 1 Pelvic muscle wasting 01/09/2015 08/09/2018 Other pulmonary embolism and infarction 07/25/19 13 07/21/2016 Bursitis of right shoulder 10/10/201108/09 Cervicalgia 08/28/2007 08/09/2018 Overview: Intermittent symptoms GENERAL OSTEOARTHROSIS 11/18/2005 6 Unspecified asthma(493.90) 04/11 Disorder of bone and cartilage, unspecified 12/04/2019 Overview: Seen by 07/2011 - Rosalinda resumed. documented as of this encounter (statuses as of 09/09/2021) [facility] History of Past illness Narrative* Problem Noted Date Resolved Date Screening for colon cancer 09/24/202009/24 Muscle weakness 02/16/2015 07/21/2016 Complete uterovaginal prolapse 01/09/2015 1 Pelvic muscle wasting 01/09/2015 08/09/2018 Other pulmonary embolism and infarction 07/25/19 13 07/21/2016 Bursitis of right shoulder 10/10/201108/09 Cervicalgia 08/28/2007 08/09/2018 Overview: Intermittent symptoms GENERAL OSTEOARTHROSIS 11/18/2005 6 Unspecified asthma(493.90) 04/11 Disorder of bone and cartilage, unspecified 12/04/2019 Overview: Seen by 07/2011 - Rosalinda resumed. documented as of this encounter (statuses as of 09/10/2021) [facility] History of Past illness Narrative* Problem Noted Date Resolved Date Screening for colon cancer 09/24/202009/24 Muscle weakness 02/16/2015 07/21/2016 Complete uterovaginal prolapse 01/09/2015 1 Pelvic muscle wasting 01/09/2015 08/09/2018 Other pulmonary embolism and infarction 07/25/19 13 07/21/2016 Bursitis of right shoulder 10/10/201108/09 Cervicalgia 08/28/2007 08/09/2018 Overview: Intermittent symptoms GENERAL OSTEOARTHROSIS 11/18/2005 6 Unspecified asthma(493.90) 04/11 Disorder of bone and cartilage, unspecified 12/04/2019 Overview: Seen by 07/2011 - Rosalinda resumed. documented as of this encounter (statuses as of 09/14/2021) [facility] History of Past illness Narrative* Problem Noted Date Resolved Date Screening for colon cancer 09/24/202009/24 Muscle weakness 02/16/2015 07/21/2016 Complete uterovaginal prolapse 01/09/2015 1 Pelvic muscle wasting 01/09/2015 08/09/2018 Other pulmonary embolism and infarction 07/25/19 13 07/21/2016 Bursitis of right shoulder 10/10/201108/09 Cervicalgia 08/28/2007 08/09/2018 Overview: Intermittent symptoms GENERAL OSTEOARTHROSIS 11/18/2005 6 Unspecified asthma(493.90) 04/11 Disorder of bone and cartilage, unspecified 12/04/2019 Overview: Seen by 07/2011 - Fosamax resumed. documented as of this encounter (statuses as of 09/14/2021) [facility] Diagnosis Chronic shoulder pain, unspecified laterality- Primary [facility] Diagnosis Other injury of unspecified muscle, fascia and tendon at shoulder and upper arm level, unspecified arm, initial encounter [facility] Diagnosis Other injury of unspecified muscle, fascia and tendon at shoulder and upper arm level, unspecified arm, initial encounter [facility] Diagnosis Rotator cuff injury, unspecified laterality, initial encounter- Primary [facility] Diagnosis HOCM (hypertrophic obstructive cardiomyopathy) (HCC)- Primary Hypertrophic obstructive cardiomyopathy Screening breast examination Breast screening, unspecified Encounter for screening mammogram for malignant neoplasm of breast Other screening mammogram Hip pain, right Pain in joint, pelvic region and thigh Shoulder tendonitis, left Obstructive cardiomyopathy (HCC) Other primary cardiomyopathies Restrictive 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 Other diseases of lung, not elsewhere classified [facility] Diagnosis Swelling- Primary Edema Multiple thyroid nodules Nontoxic multinodular goiter Obstructive cardiomyopathy (HCC) Other primary cardiomyopathies [facility] Diagnosis Essential hypertension- Primary Unspecified essential hypertension [facility] Diagnosis Obstructive cardiomyopathy (HCC)- Primary Other primary cardiomyopathies Essential hypertension Unspecified essential hypertension Edema, unspecified type [facility] Diagnosis HOCM (hypertrophic obstructive cardiomyopathy) (HCC)- Primary Hypertrophic obstructive cardiomyopathy Dyspnea on exertion Other dyspnea and respiratory abnormality [facility] Diagnosis Essential hypertension- Primary Unspecified essential hypertension [facility] Diagnosis Weight loss- Primary Loss of weight Essential hypertension Unspecified essential hypertension Hypercalcemia Non-rheumatic mitral regurgitation Mitral valve disorders Monoclonal gammopathy Monoclonal paraproteinemia Mitral valve prolapse Mitral valve disorders Bilateral carotid artery stenosis Occlusion and stenosis of carotid artery without mention of cerebral infarction Obstructive cardiomyopathy (HCC) Other primary cardiomyopathies [facility] Diagnosis Weight loss- Primary Loss of weight Essential hypertension Unspecified essential hypertension Restrictive 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 Other diseases of lung, not elsewhere classified Monoclonal gammopathy Monoclonal paraproteinemia [facility] Microscopic hematuria- Primary Weight loss Loss of weight [facility] Diagnosis Weight loss Loss of weight [facility] Diagnosis Renal cyst- Primary Unspecified congenital cystic kidney disease [facility] Diagnosis Essential hypertension- Primary Unspecified essential hypertension [facility] Diagnosis Essential hypertension Unspecified essential hypertension [facility] Diagnosis Essential hypertension Unspecified essential hypertension [facility] Diagnosis Weight loss- Primary Loss of weight Encounter for immunization Need for other specified prophylactic vaccination against single bacterial disease Essential hypertension Unspecified essential hypertension HOCM (hypertrophic obstructive cardiomyopathy) (HCC) Hypertrophic obstructive cardiomyopathy [facility] Diagnosis Mild intermittent asthma without complication- Primary Unspecified asthma Restrictive 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 Other diseases of lung, not elsewhere classified [facility] Diagnosis Monoclonal gammopathy Monoclonal paraproteinemia [facility] Diagnosis Monoclonal gammopathy- Primary Monoclonal paraproteinemia [facility] Diagnosis Monoclonal gammopathy- Primary Monoclonal paraproteinemia Essential hypertension- Primary Unspecified essential hypertension HOCM (hypertrophic obstructive cardiomyopathy) (HCC) Hypertrophic obstructive cardiomyopathy [facility] Diagnosis Essential hypertension- Primary Unspecified essential hypertension HOCM (hypertrophic obstructive cardiomyopathy) (HCC) Hypertrophic obstructive cardiomyopathy [facility] Diagnosis Osteoporosis, unspecified- Primary Vitamin D deficiency Unspecified vitamin D deficiency Essential hypertension Unspecified essential hypertension Obstructive cardiomyopathy (HCC) Other primary cardiomyopathies HOCM (hypertrophic obstructive cardiomyopathy) (HCC) Hypertrophic obstructive cardiomyopathy SVT (supraventricular tachycardia) (HCC) Other specified cardiac dysrhythmias Mild intermittent asthma without complication Unspecified asthma Restrictive 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 Other diseases of lung, not elsewhere classified Cyst of kidney, acquired Acquired cyst of kidney Monoclonal gammopathy Monoclonal paraproteinemia Age-related osteoporosis without current pathological fracture Senile osteoporosis Family history of colon cancer Family history of malignant neoplasm of gastrointestinal tract Bilateral carotid artery stenosis Occlusion and stenosis of carotid artery without mention of cerebral infarction Mild memory disturbance Memory loss Dermatitis Contact dermatitis and other eczema, due to unspecified cause [facility] Diagnosis Hyperglycemia- Primary Other abnormal glucose [facility] Diagnosis Mild intermittent asthma without complication- Primary Unspecified asthma Restrictive 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 Other diseases of lung, not elsewhere classified [facility] Diagnosis Forgetfulness- Primary Other general symptoms Essential hypertension Unspecified essential hypertension SVT (supraventricular tachycardia) ([facility]) Other specified cardiac dysrhythmias Obstructive cardiomyopathy (HCC) Other primary cardiomyopathies [facility] Diagnosis Asthma-COPD overlap syndrome- Primary Restrictive 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 Other diseases of lung, not elsewhere classified [facility] Diagnosis Osteoporosis, unspecified Vitamin D deficiency Unspecified vitamin D deficiency [facility] Diagnosis Monoclonal gammopathy- Primary Monoclonal paraproteinemia [facility] Diagnosis Monoclonal gammopathy Monoclonal paraproteinemia [facility] Diagnosis Monoclonal gammopathy- Primary Monoclonal paraproteinemia [facility] Diagnosis HOCM (hypertrophic obstructive cardiomyopathy) ([facility]) Hypertrophic obstructive cardiomyopathy [facility] Diagnosis Screening for diabetes mellitus- Primary Age-related osteoporosis without current pathological fracture Senile osteoporosis Other disorders of glucose transport (HCC) Chest pain, unspecified type Stable angina pectoris (HCC) [facility] Diagnosis Multinodular thyroid- Primary Nontoxic multinodular goiter Hypercalcemia [facility] Diagnosis Mild persistent asthma without complication Unspecified asthma [facility] Diagnosis Chest pain, unspecified type [facility] Diagnosis Chest pain, unspecified type Chest pain, unspecified type [facility] Diagnosis Essential hypertension Unspecified essential hypertension [facility] Asthma-COPD overlap syndrome (HCC)- Primary Restrictive 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 Other diseases of lung, not elsewhere classified [facility] Diagnosis Pelvic mass in female- Primary Abnormal finding on radiology exam Uterovaginal prolapse Uterovaginal prolapse, unspecified documented in this encounter [facility]* Diagnosis Pelvic mass in female Allergy history, radiographic dye Allergy to radiographic dye documented in this encounter [facility]* Diagnosis Incomplete uterovaginal prolapse- Primary Uterovaginal prolapse, incomplete Cystocele, midline Rectocele Incomplete bladder emptying Abnormal urine finding documented in this encounter [facility]* Diagnosis Incomplete uterovaginal prolapse- Primary Uterovaginal prolapse, incomplete Cystocele, midline Rectocele Incomplete bladder emptying Abnormal urine finding Incomplete uterovaginal prolapse Uterovaginal prolapse, incomplete Cystocele, midline Rectocele Intra-abdominal and pelvic swelling, mass and lump, unspecified site Abnormal findings on diagnostic imaging of other specified body structures Incomplete uterovaginal prolapse Uterovaginal prolapse, incomplete Cystocele, midline Rectocele Intra-abdominal and pelvic swelling, mass and lump, unspecified site Abnormal findings on diagnostic imaging of other specified body structures documented in this encounter [facility]* Diagnosis ALVIN (stress urinary incontinence, female) Incomplete uterovaginal prolapse Uterovaginal prolapse, incomplete Cystocele, midline Rectocele Intra-abdominal and pelvic swelling, mass and lump, unspecified site Abnormal findings on diagnostic imaging of other specified body structures Incomplete uterovaginal prolapse Uterovaginal prolapse, incomplete Cystocele, midline Rectocele Intra-abdominal and pelvic swelling, mass and lump, unspecified site Abnormal findings on diagnostic imaging of other specified body structures documented in this encounter [facility]* Diagnosis ALVIN (stress urinary incontinence, female) Incomplete uterovaginal prolapse Uterovaginal prolapse, incomplete Cystocele, midline Rectocele Intra-abdominal and pelvic swelling, mass and lump, unspecified site Abnormal findings on diagnostic imaging of other specified body structures Incomplete uterovaginal prolapse Uterovaginal prolapse, incomplete Cystocele, midline Rectocele Intra-abdominal and pelvic swelling, mass and lump, unspecified site Abnormal findings on diagnostic imaging of other specified body structures documented in this encounter [facility]* Diagnosis Incomplete uterovaginal prolapse Uterovaginal prolapse, incomplete Cystocele, midline Rectocele Intra-abdominal and pelvic swelling, mass and lump, unspecified site Abnormal findings on diagnostic imaging of other specified body structures Incomplete uterovaginal prolapse- Primary Uterovaginal prolapse, incomplete Cystocele, midline Rectocele ALVIN (stress urinary incontinence, female) Incomplete uterovaginal prolapse Uterovaginal prolapse, incomplete Cystocele, midline Rectocele Intra-abdominal and pelvic swelling, mass and lump, unspecified site Abnormal findings on diagnostic imaging of other specified body structures documented in this encounter [facility]* Diagnosis Hypercalcemia- Primary documented in this encounter [facility]* Diagnosis Postoperative pain- Primary Other acute postoperative pain Intra-abdominal and pelvic swelling, mass and lump, unspecified site Abnormal findings on diagnostic imaging of other specified body structures Incomplete uterovaginal prolapse Uterovaginal prolapse, incomplete Cystocele, midline Rectocele documented in this encounter [facility]* Diagnosis Post-operative state- Primary Other postprocedural status documented in this encounter [facility]* Diagnosis Postop check- Primary Follow-up examination, following unspecified surgery OAB (overactive bladder) Anal skin tag documented in this encounter [facility]* Diagnosis Essential hypertension- Primary Unspecified essential hypertension Scoliosis (and kyphoscoliosis), idiopathic Restrictive 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 Other diseases of lung, not elsewhere classified Osteoporosis, unspecified osteoporosis type, unspecified pathological fracture presence Essential hypertension- Primary Unspecified essential hypertension Obstructive cardiomyopathy (HCC) Other primary cardiomyopathies SVT (supraventricular tachycardia) (HCC) Other specified cardiac dysrhythmias HOCM (hypertrophic obstructive cardiomyopathy) (HCC) Hypertrophic obstructive cardiomyopathy Restrictive 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 Other diseases of lung, not elsewhere classified Mild intermittent asthma without complication Unspecified asthma Hypercalcemia Monoclonal gammopathy Monoclonal paraproteinemia Age-related osteoporosis without current pathological fracture Senile osteoporosis Bilateral carotid artery stenosis Occlusion and stenosis of carotid artery without mention of cerebral infarction Encounter for screening examination for other mental health and behavioral disorders Weight loss Loss of weight Screening for depression Chronic obstructive pulmonary disease, unspecified COPD type (HCC) documented in this encounter [facility] note* Diagnosis Essential hypertension- Primary Unspecified essential hypertension Scoliosis (and kyphoscoliosis), idiopathic Restrictive 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 Other diseases of lung, not elsewhere classified Osteoporosis, unspecified osteoporosis type, unspecified pathological fracture presence Anemia, unspecified type- Primary documented in this encounter [facility] note* Diagnosis Essential hypertension- Primary Unspecified essential hypertension Scoliosis (and kyphoscoliosis), idiopathic Restrictive 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 Other diseases of lung, not elsewhere classified Osteoporosis, unspecified osteoporosis type, unspecified pathological fracture presence Hip pain, right Pain in joint, pelvic region and thigh [facility] Diagnosis Essential hypertension- Primary Unspecified essential hypertension Scoliosis (and kyphoscoliosis), idiopathic Restrictive 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 Other diseases of lung, not elsewhere classified Osteoporosis, unspecified osteoporosis type, unspecified pathological fracture presence Acute pain of left shoulder [facility] this encounter [facility]* Diagnosis Essential hypertension- Primary Unspecified essential hypertension Scoliosis (and kyphoscoliosis), idiopathic Restrictive 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 Other diseases of lung, not elsewhere classified Osteoporosis, unspecified osteoporosis type, unspecified pathological fracture presence SOB (shortness of breath) Shortness of breath Leg swelling Swelling of limb Restrictive 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 Other diseases of lung, not elsewhere classified HOCM (hypertrophic obstructive cardiomyopathy) (HCC) Hypertrophic obstructive cardiomyopathy [facility]* Diagnosis Essential hypertension- Primary Unspecified essential hypertension Scoliosis (and kyphoscoliosis), idiopathic Restrictive 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 Other diseases of lung, not elsewhere classified Osteoporosis, unspecified osteoporosis type, unspecified pathological fracture presence Weight loss- Primary Loss of weight Iron deficiency anemia, unspecified iron deficiency anemia type Essential hypertension Unspecified essential hypertension [facility] this encounter [facility]* Diagnosis Essential hypertension- Primary Unspecified essential hypertension Scoliosis (and kyphoscoliosis), idiopathic Restrictive 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 Other diseases of lung, not elsewhere classified Osteoporosis, unspecified osteoporosis type, unspecified pathological fracture presence Essential hypertension Unspecified essential hypertension documented [facility] this encounter [facility]* Diagnosis Essential hypertension- Primary Unspecified essential hypertension Scoliosis (and kyphoscoliosis), idiopathic Restrictive 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 Other diseases of lung, not elsewhere classified Osteoporosis, unspecified osteoporosis type, unspecified pathological fracture presence Iron deficiency anemia, unspecified iron deficiency anemia type- Primary Family history of colon cancer Family history of malignant neoplasm of gastrointestinal tract Weight loss Loss of weight Heme positive stool Nonspecific abnormal finding in stool contents documented [facility] this encounter [facility]* Diagnosis Essential hypertension- Primary Unspecified essential hypertension Scoliosis (and kyphoscoliosis), idiopathic Restrictive 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 Other diseases of lung, not elsewhere classified Osteoporosis, unspecified osteoporosis type, unspecified pathological fracture presence Encounter for screening for malignant neoplasm of colon- Primary Special screening for malignant neoplasms, colon Iron deficiency anemia, unspecified iron deficiency anemia type Family history of colon cancer Family history of malignant neoplasm of gastrointestinal tract Weight loss Loss of weight Heme positive stool Nonspecific abnormal finding in stool contents [facility] Diagnosis Essential hypertension- Primary Unspecified essential hypertension Scoliosis (and kyphoscoliosis), idiopathic Restrictive 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 Other diseases of lung, not elsewhere classified Osteoporosis, unspecified osteoporosis type, unspecified pathological fracture presence Iron deficiency anemia, unspecified iron deficiency anemia type Family history of colon cancer Family history of malignant neoplasm of gastrointestinal tract Weight loss Loss of weight Heme positive stool Nonspecific abnormal finding in stool contents Encounter for screening for malignant neoplasm of colon- Primary Special screening for malignant neoplasms, colon Iron deficiency anemia, unspecified iron deficiency anemia type Family history of colon cancer Family history of malignant neoplasm of gastrointestinal tract Weight loss Loss of weight Heme positive stool Nonspecific abnormal finding in stool contents [facility] Diagnostic Procedure Only (Routine) - Closed Specialty Diagnoses / Procedures Referred By Neil t Referred To Contact XR IMAGING Diagnoses Hip pain, right Procedures XR HIP GENERAL 3V PELV/AP/LAT RIGHT RADEX HIP UNILATERAL WITH PELVIS 2-3 VIEWS Markus Rascon MD [address] [place] [address] Xr Imaging Referral ID Status Reason Start Date Expiration Date V isits Requested Visits Authorized [id number] Closed Auto-Generate d Referral 09/16/2021 10/16/2022 1 1 * Diagnostic Procedure Only (Routine) - Pending Review Specialty Diagnoses / Procedures Referred By Neil elder Referred To Contact BR IMAGING Diagnoses Screening breast examination Encounter for screening mammogram for malignant neoplasm of breast Procedures ADRIANO SCREENING W MARY SCREENING DIGITAL BREAST TOMOSYNTHESIS BI SCREENING MAMMOGRAPHY BI 2-VIEW BREAST INC CAD Markus Rascon MD [address] [place] [address] [facility] [address] [facility] [place] [address] Referral ID Status Reason Start Date Expiration Date Visits Requested Visits Authorized [id number] Pending Review Auto-Generat ed Referral 09/16/2021 10/16/2022 1 1 [facility] for referral (narrative)* Outpatient Procedure (Routine) - Authorized Specialty Diagnoses / Procedures Referred By Contac t Referred To Contact [facility] Diagnoses Swelling Obstructive cardiomyopathy (HCC) Procedures ECHO ECHO TTHRC R-T 2D W/WOM-MODE COMPL SPEC&COLR D Debbie Constantino APRN.[employer] [address] [place] [address] [facility] [address] [place] [address] Referral ID Status Reason Start Date Expiration Date Visits Requested Visits Authorized [id number] Authorized Auto-Generat ed Referral 10/12/2021 10/12/2022 1 1 [facility] for referral (narrative)* Diagnostic Procedure Only (Routine) - Closed Specialty Diagnoses / Procedures Referred By Contac t Referred To Contact US IMAGING Diagnoses Renal cyst Procedures US KIDNEY/BLADDER US RETROPERITONEAL REAL TIME W/IMAGE COMPLETE Markus Rascon MD [address] [place] [address] Us Imaging Referral ID Status Reason Start Date Expiration Date V isits Requested Visits Authorized [id number] Closed Auto-Generate d Referral 01/24/2022 02/23/2023 1 1 [facility] for referral (narrative)* Diagnostic Procedure Only (Routine) - Closed Specialty Diagnoses / Procedures Referred By Contac t Referred To Contact XR IMAGING Diagnoses Monoclonal gammopathy Procedures XR BONE SURVEY ROUTINE BONE SURVEY COMPLETE Danny Oneill DO [address] [place] [address] Xr Imaging Referral ID Status Reason Start Date Expiration Date V isits Requested Visits Authorized [id number] Closed Auto-Generate d Referral 05/12/2021 06/11/2022 1 1 [facility] for referral (narrative)* Diagnostic Procedure Only (Routine) - Authorized Specialty Diagnoses / Procedures [facility] Contact XR IMAG[facility] Diagnoses Monoclonal gammopathy Procedures XR BONE SURVEY ROUTINE RADIOLOGIC EXAMINATION OSSEOUS SURVEY COMPL Danny Oneill DO [address] [place] [address] Xr Imaging Referral ID Status Reason Start Date Expiration Date Visits Requested Visits Authorized [id number] Authorized Auto-Generat ed Referral 05/12/2022 06/11/2023 1 1 [facility] for referral (narrative)* Outpatient Procedure (Routine) - Closed Specialty Diagnoses / Procedures [facility]erred To Contact [facility] Diagnoses HOCM (hypertrophic obstructive cardiomyopathy) (HCC) Procedures ECG COMPLETE ECG ROUTINE ECG W/LEAST 12 LDS W/I&R Clary Nolasco MD [address] [place] [address] [facility] [address] [place] [address] Referral ID Status Reason Start Date Expiration Date V isits Requested Visits Authorized [id number] Closed Auto-Generate d Referral 05/09/2022 05/09/2023 1 1 [facility] for referral (narrative)* Outpatient Procedure (Routine) - Authorized Specialty Diagnoses / Procedures [facility] To Contact [facility] Diagnoses Bilateral carotid artery stenosis Procedures US CAROTID ARTERIES [facility] LAB DUPLEX SCAN EXTRACRANIAL ART COMPL BI STUDY Markus Rascon MD [address] [place] [address] [facility] [address] [place] [address] Referral ID Status Reason Start Date Expiration Date Visits Requested Visits Authorized [id number] Authorized Auto-Generat ed Referral 09/16/2022 09/16/2023 1 1 [facility] for referral (narrative)* Diagnostic Procedure Only (Routine) - Authorized Specialty Diagnoses / Procedures Referred By Nidhiac t Referred To Contact [facility] Diagnoses Chest pain, unspecified type Procedures NM CARDIAC PERF STRESS/PHARM MYOCARDIAL SPECT MULTIPLE STUDIES Rylee Duarte APRN.TOBACCO DIPPER [address] [place] [address] [facility] [address] [place] [address] Referral ID Status Reason Start Date Expiration Date Visits Requested Visits Authorized [id number] Authorized Auto-Generat ed Referral 09/04/2023 10/03/2024 1 1 * Outpatient Procedure (Routine) - Pending Review Specialty Diagnoses / Procedures Referred By Nidhiac t Referred To [facility] Diagnoses Stable angina pectoris (HCC) Procedures ECG COMPLETE ECG ROUTINE ECG W/LEAST 12 LDS W/I&R Rylee Duarte APRN.TOBACCO DIPPER [address] [place] [address] [facility] [address] [place] [address] Referral ID Status Reason Start Date Expiration Date Visits Requested Visits Authorized [id number] Pending Review Auto-Generat ed Referral 09/04/2023 09/03/2024 1 1 [facility] for referral (narrative)* Diagnostic Procedure Only (Routine) - Closed Specialty Diagnoses / Procedures Referred By Contac t Referred To Contact [facility] Diagnoses Chest pain, unspecified type Procedures NM CARDIAC PERF STRESS/PHARM MYOCARDIAL SPECT MULTIPLE STUDIES Rylee Duarte APRN.TOBACCO DIPPER [address] [place] [address] [facility] [address] [place] [id number] Referral ID Status Reason Start Date Expiration Date V isits Requested Visits Authorized [id number] Closed Auto-Generate d Referral 09/04/2023 10/03/2024 1 1 [facility] for referral (narrative)* Consultation (Urgent) - Pending Review Specialty Diagnoses / Procedures Referred By Contac t Referred To Contact Urology / Urogynecology Diagnoses Pelvic mass in female Abnormal finding on radiology exam Uterovaginal prolapse Procedures [place] OFFICE/OUTPATIENT NEW HIGH [facility] 60 MINUTES Leandro Chery MD [address] [place] [address] [facility] [address] [place] [address] Referral ID Status Reason Start Date Expiration Date Visits Requested Visits Authorized [id number] Pending Review Specialty Services Required 11/22/2023 11/21/2024 1 1 * Imaging (Routine) - Pending Review Specialty Diagnoses / Procedures Referred By Contac t Referred To Contact Radiology Diagnoses Pelvic mass in female Abnormal finding on radiology exam Procedures CT pelvis w IV contrast Leandro Chery MD [address] [place] [address] Referral ID Status Reason Start Date Expiration Date V isits Requested Visits Authorized [id number] Pending Review 11/22/2023 11/21/2024 1 1 [facility] for referral (narrative)* Outpatient Procedure (Routine) - Authorized Specialty Diagnoses / Procedures Referred By Contac t Referred To Contact [facility] Diagnoses Bilateral carotid artery stenosis Procedures US CAROTID ARTERIES MARC VAS LAB DUPLEX SCAN EXTRACRANIAL ART COMPL BI STUDY Markus Rascon MD [address] [place] [address] [facility] [address] [place] [address] Referral ID Status Reason Start Date Expiration Date Visits Requested Visits Authorized [id number] Authorized Auto-Generat ed Referral 02/12/2024 02/11/2025 1 1 [facility] for referral (narrative)* Diagnostic Procedure Only (Routine) - Closed Specialty Diagnoses / Procedures Referred By Contac t Referred To Contact XR IMAGING Diagnoses Hip pain, right Procedures XR HIP GENERAL 3V PELV/AP/LAT RIGHT RADEX HIP UNILATERAL WITH PELVIS 2-3 VIEWS Markus Rascon MD [address] [place] [address] [place] [address] Referral ID Status Reason Start Date Expiration Date V isits Requested Visits Authorized [id number] Closed Auto-Generate d Referral 09/16/2021 10/16/2022 1 1 [facility] for referral (narrative)* Diagnostic Procedure Only (Routine) - Closed Specialty Diagnoses / Procedures Referred By Contac t Referred To Contact XR IMAGING Diagnoses Acute pain of left shoulder Procedures XR SHOULDER GENERAL 3V OR MORE AP/TRUE AP/OTHER LEFT RADEX SHOULDER COMPLETE MINIMUM 2 VIEWS May Bridges PA-C [address] [place] [address] [place] [address] Referral ID Status Reason Start Date Expiration Date V isits Requested Visits Authorized [id number] Closed Auto-Generate d Referral 09/07/2021 10/07/2022 1 1 [facility] for referral (narrative)* Outpatient Procedure (Routine) - Closed Specialty Diagnoses / Procedures Referred By Contac t Referred To Contact [facility] Diagnoses Iron deficiency anemia, unspecified iron deficiency anemia type Family history of colon cancer Weight loss Heme positive stool Procedures EGD DIAGNOSTIC ESOPHAGOGASTRODUODENOSC OPY TRANSORAL DIAGNOSTIC Daryl Hamlin MD [address] [place] [address] [facility] [address] [place] [address] Referral ID Status Reason Start Date Expiration Date V isits Requested Visits Authorized [id number] Closed Auto-Generate d Referral 03/05/2024 03/05/2025 1 1 * Outpatient Procedure (Routine) - Closed Specialty Diagnoses / Procedures [facility] To [facility] Diagnoses Iron deficiency anemia, unspecified iron deficiency anemia type Family history of colon cancer Weight loss Heme positive stool Procedures COLONOSCOPY DIAGNOSTIC COLONOSCOPY FLX DX W/COLLJ SPEC WHEN PFRMD Daryl Hamlin MD [address] [place] [address] [address] Referral ID Status Reason Start Date Expiration Date V isits Requested Visits Authorized [id number] Closed Auto-Generate d Referral 03/05/2024 03/05/2025 1 1 [facility] for referral (narrative)* Outpatient Procedure (Routine) - Closed Specialty Diagnoses / Procedures [facility] Referred To Contact [facility] Diagnoses Iron deficiency anemia, unspecified iron deficiency anemia type Family history of colon cancer Weight loss Heme positive stool Procedures EGD DIAGNOSTIC ESOPHAGOGASTRODUODENOSC OPY TRANSORAL DIAGNOSTIC Daryl Hamlin MD [address] [place] [address] [address] Referral ID Status Reason Start Date Expiration Date V isits Requested Visits Authorized [id number] Closed Auto-Generate d Referral 03/05/2024 03/05/2025 1 1 * Outpatient Procedure (Routine) - Closed Specialty Diagnoses / Procedures [facility] Referred To Contact [facility] Diagnoses Iron deficiency anemia, unspecified iron deficiency anemia type Family history of colon cancer Weight loss Heme positive stool Procedures COLONOSCOPY DIAGNOSTIC COLONOSCOPY FLX DX W/COLLJ SPEC WHEN PFRMD Daryl Hamlin MD [address] [place] [address] [facility] [address] [place] [address] Referral ID Status Reason Start Date Expiration Date V isits Requested Visits Authorized [id number] Closed Auto-Generate d Referral 03/05/2024 03/05/2025 1 1 [facility] for visit Narrative* Diagnostic Procedure Only (Routine) - Closed Specialty Diagnoses / Procedures Referred By Contac t Referred To Contact XR IMAGING Diagnoses Monoclonal gammopathy Procedures XR BONE SURVEY ROUTINE BONE SURVEY COMPLETE Danny Oneill, [address] [place] [address] Xr Imaging Referral ID Status Reason Start Date Expiration Date V isits Requested Visits Authorized [id number] Closed Auto-Generate d Referral 05/12/2021 06/11/2022 1 1 [facility] for visit Narrative* Diagnostic Procedure Only (Routine) - Closed Specialty Diagnoses / Procedures Referred By Contac t Referred To Contact XR IMAGING Diagnoses Monoclonal gammopathy Procedures XR BONE SURVEY ROUTINE RADIOLOGIC EXAMINATION OSSEOUS SURVEY COMPL Danny Oneill, [address] [place] [address] [place] [address] Referral ID Status Reason Start Date Expiration Date V isits Requested Visits Authorized [id number] Closed Auto-Generate d Referral 05/12/2022 06/11/2023 1 1 [facility] for visit Narrative* Outpatient Procedure (Routine) - Closed Specialty Diagnoses / Procedures Referred By Contac t Referred To [facility] Diagnoses HOCM (hypertrophic obstructive cardiomyopathy) (HCC) Procedures ECHO ECHO TTHRC R-T 2D W/WOM-MODE COMPL SPEC&COLR D Clary Nolasco MD [address], [address] [place] [address] [facility] [address] [place] [id number] Referral ID Status Reason Start Date Expiration Date V isits Requested Visits Authorized [id number] Closed Auto-Generate d Referral 06/19/2023 06/11/2024 1 1 [facility] for visit Narrative* Diagnostic Procedure Only (Routine) - Closed Specialty Diagnoses / Procedures Referred By Contac t Referred To Contact MOLECULAR & FUNCTIONAL IMAGING Diagnoses Chest pain, unspecified type Procedures NM CARDIAC PERF STRESS/PHARM MYOCARDIAL SPECT MULTIPLE STUDIES Rylee Duarte, PLC ENGINEER.TOBACCO DIPPER [address] [place] [address] [facility] [address] [place] [id number] Referral ID Status Reason Start Date Expiration Date V isits Requested Visits Authorized [id number] Closed Auto-Generate d Referral 09/04/2023 10/03/2024 1 1 [facility] for visit Narrative* Diagnostic Procedure Only (Routine) - Closed Specialty Diagnoses / Procedures [facility] X[facility] Diagnoses Hip pain, right Procedures XR HIP GENERAL 3V PELV/AP/LAT RIGHT RADEX HIP UNILATERAL WITH PELVIS 2-3 VIEWS Markus Rascon MD [address] [place] [address] [place] [address] Referral ID Status Reason Start Date Expiration Date V isits Requested Visits Authorized [id number] Closed Auto-Generate d Referral 09/16/2021 10/16/2022 1 1 [facility] for visit Narrative* Diagnostic Procedure Only (Routine) - Closed Specialty Diagnoses / Procedures Referred By Contac t Referred To Contact XR IMAGING Diagnoses Acute pain of left shoulder Procedures XR SHOULDER GENERAL 3V OR MORE AP/TRUE AP/OTHER LEFT RADEX SHOULDER COMPLETE MINIMUM 2 VIEWS May Bridges PA-C [address] [place] [address] [place] [address] Referral ID Status Reason Start Date Expiration Date V isits Requested Visits Authorized [id number] Closed Auto-Generate d Referral 09/07/2021 10/07/2022 1 1 [facility] for visit Narrative* Outpatient Procedure (Routine) - Closed Specialty Diagnoses / Procedures Referred By Contac t Referred To Contact [facility] Diagnoses Iron deficiency anemia, unspecified iron deficiency anemia type Family history of colon cancer Weight loss Heme positive stool Procedures EGD DIAGNOSTIC ESOPHAGOGASTRODUODENOSC OPY TRANSORAL DIAGNOSTIC Daryl Hamlin MD [address] [place] [address] [facility] [address] [place] [address] Referral ID Status Reason Start Date Expiration Date V isits Requested Visits Authorized [id number] Closed Auto-Generate d Referral 03/05/2024 03/05/2025 1 1 [facility] Reason for Referral Specialty Diagnoses / Procedures Referred By Contac t Referred To Contact Orthopedics Diagnoses Chronic shoulder pain, unspecified laterality Procedures CONSULT TO ORTHOPAEDICS OFFICE/OUTPATIENT [facility] 60-74 MINUTES Markus Rascon MD [facility] [place] [id number] Referral ID Status Reason Start Date Expiration Date Visits Requested Visits Authorized [id number] Authorized PCP Requested Referral 08/31/2021 08/31/2022 1 1 Specialty Diagnoses / Procedures Referred By Contac t Referred To Contact CT IMAGING Diagnoses Other injury of unspecified muscle, fascia and tendon at shoulder and upper arm level, unspecified arm, initial encounter Procedures CT SHOULDER WO IVCON CT UPPER EXTREMITY W/O CONTRAST MATERIAL May Bridges PA-C [address] [place] [address] Ct Imaging Referral ID Status Reason Start Date Expiration Date Visits Requested Visits Authorized [id number] Authorized Auto-Generat ed Referral 09/09/2021 10/09/2022 1 1 Referral ID Status Reason Start Date Expiration Date V isits Requested Visits Authorized [id number] Closed Auto-Generate d Referral 09/09/2021 10/09/2022 1 1 Specialty Diagnoses / Procedures Referred By Contac t Referred To Contact Orthopedics Diagnoses Rotator cuff injury, unspecified laterality, initial encounter Procedures CONSULT TO ORTHOPAEDICS OFFICE/OUTPATIENT [facility] 60-74 MINUTES Markus Rascon MD [address] [place] [address] Referral ID Status Reason Start Date Expiration Date Visits Requested Visits Authorized [id number] Authorized PCP Requested Referral 09/13/2021 09/13/2022 1 1 Specialty Diagnoses / Procedures Referred By Contac t Referred To Contact Cardiology Diagnoses Obstructive cardiomyopathy (HCC) Essential hypertension Edema, unspecified type Procedures CONSULT TO CARDIOLOGY OFFICE/OUTPATIENT [facility] 60-74 MINUTES Markus Rascon MD [address] [place] [address] Referral ID Status Reason Start Date Expiration Date Visits Requested Visits Authorized [id number] Authorized PCP Requested Referral 10/18/2021 10/18/2022 1 1 Specialty Diagnoses / Procedures Referred By Contac t Referred To Contact CT IMAGING Diagnoses Weight loss Procedures CT ABD/PEL WO IVCON CT ABD & PELVIS W/O CONTRAST Markus Rascon MD [address] [place] [address] Ct Imaging Referral ID Status Reason Start Date Expiration Date Visits Requested Visits Authorized [id number] Authorized Auto-Generat ed Referral 01/17/2022 02/16/2023 1 1 Specialty Diagnoses / Procedures Referred By Contac t Referred To Contact CT IMAGING Diagnoses Weight loss Procedures CT CHEST WO IVCON DIAGNOSTIC COMPUTED TOMOGRAPHY THORAX W/[place] [address] [place] [address] [address] [address] Referral ID Status Reason Start Date Expiration Date Visits Requested Visits Authorized [id number] Authorized Auto-Generat ed Referral 01/17/2022 02/16/2023 1 1 Specialty Diagnoses / Procedures Referred By Contac t Referred To Contact Urology Diagnoses Microscopic hematuria Weight loss Procedures CONSULT TO UROLOGY OFFICE/OUTPATIENT [facility] 60-74 MINUTES Markus Rascon MD [address] [place] [address] Referral ID Status Reason Start Date Expiration Date Visits Requested Visits Authorized [id number] Authorized PCP Requested Referral 01/17/2022 01/17/2023 1 1 Referral ID Status Reason Start Date Expiration Date V isits Requested Visits Authorized [id number] Closed Auto-Generate d Referral 01/17/2022 02/16/2023 1 1 Referral ID Status Reason Start Date Expiration Date V isits Requested Visits Authorized [id number] Closed Auto-Generate d Referral 01/17/2022 02/16/2023 1 1 Specialty Diagnoses / Procedures Referred By Neil elder Referred To Contact General Surgery Diagnoses Iron deficiency anemia, unspecified iron deficiency anemia type Family history of colon cancer Weight loss Heme positive stool Procedures CONSULT TO GENERAL SURGERY OFFICE/OUTPATIENT NEW HIGH MDM 60 MINUTES Markus Rascon MD [address] [place] [address] Referral ID Status Reason Start Date Expiration Date V isits Requested Visits Authorized [id number] Closed PCP Requested Referral 02/19/2024 02/18/2025 1 1 Advance Directives No Advanced Directives Records FoundDocuments on File Type Date Recorded Patient Lineman Expl anation Advance Directive(s) Advance Directive(s) 09/24/2020 7:19 AM Advance Directive(s) 09/09/2020 8:46 AM Advance Directive(s) 03/03/2020 8:26 AM Advance Directive(s) 04/05/2017 12:23 PM Advance Directive(s) 09/04/2012 3:41 PM Advance Directive(s) 03/05/2010 9:26 PM Documents on File Type Date Recorded Patient Lineman Expl anation Advance Directive(s) Advance Directive(s) 09/24/2020 7:19 AM Advance Directive(s) 09/09/2020 8:46 AM Advance Directive(s) 03/03/2020 8:26 AM Advance Directive(s) 04/05/2017 12:23 PM Advance Directive(s) 09/04/2012 3:41 PM Advance Directive(s) 03/05/2010 9:26 PM Documents on File Type Date Recorded Patient Lineman Expl anation Advance Directive(s) 09/04/2012 3:41 PM Advance Directive(s) 03/05/2010 9:26 PM Documents on File Type Date Recorded Patient Lineman Expl anation Advance Directive(s) 09/04/2012 3:41 PM Advance Directive(s) 03/05/2010 9:26 PM Documents on File Type Date Recorded Patient Lineman Expl anation Power of Vp Customer Service 12/19/2023 10:45 AM Date Activated Date Inactivated Comments 12/19/2023 10:51 AM 12/19/2023 9:54 PM Documents on File Type Date Recorded Patient Lineman Expl anation Power of Vp Customer Service 12/19/2023 10:45 AM Date Activated Date Inactivated Comments 12/19/2023 10:51 AM 12/19/2023 9:54 PM Summary Purpose Family History No Family History Records FoundNo Family History Records FoundNo Family History Records FoundNo Family History Records Found Additional Source Comments Source Comments (unrecognize d section and content) In the event this informatio n is protected by the Federal Confidentiality of Alcohol and Drug Abuse Patient Records regulations: The Federal rules restrict any use of the information to criminally investigate or prosecute any alcohol or drug abuse patient.[facility] the event this information is protected by the Federal Confidentiality of Alcohol and Drug Abuse Patient Records regulations: The Federal rules restrict any use of the information to criminally investigate or prosecute any alcohol or drug abuse patient.[facility] the event this information is protected by the Federal Confidentiality of Alcohol and Drug Abuse Patient Records regulations: The Federal rules restrict any use of the information to criminally investigate or prosecute any alcohol or drug abuse patient.[facility] the event this information is protected by the Federal Confidentiality of Alcohol and Drug Abuse Patient Records regulations: The Federal rules restrict any use of the information to criminally investigate or prosecute any alcohol or drug abuse patient.[facility] the event this information is protected by the Federal Confidentiality of Alcohol and Drug Abuse Patient Records regulations: The Federal rules restrict any use of the information to criminally investigate or prosecute any alcohol or drug abuse patient.[facility] the event this information is protected by the Federal Confidentiality of Alcohol and Drug Abuse Patient Records regulations: The Federal rules restrict any use of the information to criminally investigate or prosecute any alcohol or drug abuse patient.[facility]In the event this information is protected by the Federal Confidentiality of Alcohol and Drug Abuse Patient Records regulations: The Federal rules restrict any use of the information to criminally investigate or prosecute any alcohol or drug abuse patient.[facility]In the event this information is protected by the Federal Confidentiality of Alcohol and Drug Abuse Patient Records regulations: The Federal rules restrict any use of the information to criminally investigate or prosecute any alcohol or drug abuse patient.[facility]In the event this information is protected by the Federal Confidentiality of Alcohol and Drug Abuse Patient Records regulations: The Federal rules restrict any use of the information to criminally investigate or prosecute any alcohol or drug abuse patient.[facility] the event this information is protected by the Federal Confidentiality of Alcohol and Drug Abuse Patient Records regulations: The Federal rules restrict any use of the information to criminally investigate or prosecute any alcohol or drug abuse patient.[facility] HospitalIn the event this information is protected by the Federal Confidentiality of Alcohol and Drug Abuse Patient Records regulations: The Federal rules restrict any use of the information to criminally investigate or prosecute any alcohol or drug abuse patient.[facility] HospitalIn the event this information is protected by the Federal Confidentiality of Alcohol and Drug Abuse Patient Records regulations: The Federal rules restrict any use of the information to criminally investigate or prosecute any alcohol or drug abuse patient.[facility] HospitalIn the event this information is protected by the Federal Confidentiality of Alcohol and Drug Abuse Patient Records regulations: The Federal rules restrict any use of the information to criminally investigate or prosecute any alcohol or drug abuse patient.[facility] HospitalIn the event this information is protected by the Federal Confidentiality of Alcohol and Drug Abuse Patient Records regulations: The Federal rules restrict any use of the information to criminally investigate or prosecute any alcohol or drug abuse patient.[facility]In the event this information is protected by the Federal Confidentiality of Alcohol and Drug Abuse Patient Records regulations: The Federal rules restrict any use of the information to criminally investigate or prosecute any alcohol or drug abuse patient.[facility] HospitalIn the event this information is protected by the Federal Confidentiality of Alcohol and Drug Abuse Patient Records regulations: The Federal rules restrict any use of the information to criminally investigate or prosecute any alcohol or drug abuse patient.[facility]In the event this information is protected by the Federal Confidentiality of Alcohol and Drug Abuse Patient Records regulations: The Federal rules restrict any use of the information to criminally investigate or prosecute any alcohol or drug abuse patient.[facility] HospitalIn the event this information is protected by the Federal Confidentiality of Alcohol and Drug Abuse Patient Records regulations: The Federal rules restrict any use of the information to criminally investigate or prosecute any alcohol or drug abuse patient.[facility] HospitalIn the event this information is protected by the Federal Confidentiality of Alcohol and Drug Abuse Patient Records regulations: The Federal rules restrict any use of the information to criminally investigate or prosecute any alcohol or drug abuse patient.[facility] HospitalIn the event this information is protected by the Federal Confidentiality of Alcohol and Drug Abuse Patient Records regulations: The Federal rules restrict any use of the information to criminally investigate or prosecute any alcohol or drug abuse patient.[facility] HospitalIn the event this information is protected by the Federal Confidentiality of Alcohol and Drug Abuse Patient Records regulations: The Federal rules restrict any use of the information to criminally investigate or prosecute any alcohol or drug abuse patient.[facility] HospitalIn the event this information is protected by the Federal Confidentiality of Alcohol and Drug Abuse Patient Records regulations: The Federal rules restrict any use of the information to criminally investigate or prosecute any alcohol or drug abuse patient.[facility] HospitalIn the event this information is protected by the Federal Confidentiality of Alcohol and Drug Abuse Patient Records regulations: The Federal rules restrict any use of the information to criminally investigate or prosecute any alcohol or drug abuse patient.[facility] HospitalIn the event this information is protected by the Federal Confidentiality of Alcohol and Drug Abuse Patient Records regulations: The Federal rules restrict any use of the information to criminally investigate or prosecute any alcohol or drug abuse patient.[facility] HospitalIn the event this information is protected by the Federal Confidentiality of Alcohol and Drug Abuse Patient Records regulations: The Federal rules restrict any use of the information to criminally investigate or prosecute any alcohol or drug abuse patient.[facility] HospitalIn the event this information is protected by the Federal Confidentiality of Alcohol and Drug Abuse Patient Records regulations: The Federal rules restrict any use of the information to criminally investigate or prosecute any alcohol or drug abuse patient.[facility] HospitalIn the event this information is protected by the Federal Confidentiality of Alcohol and Drug Abuse Patient Records regulations: The Federal rules restrict any use of the information to criminally investigate or prosecute any alcohol or drug abuse patient.[facility] HospitalIn the event this information is protected by the Federal Confidentiality of Alcohol and Drug Abuse Patient Records regulations: The Federal rules restrict any use of the information to criminally investigate or prosecute any alcohol or drug abuse patient.[facility] HospitalIn the event this information is protected by the Federal Confidentiality of Alcohol and Drug Abuse Patient Records regulations: The Federal rules restrict any use of the information to criminally investigate or prosecute any alcohol or drug abuse patient.[facility] HospitalIn the event this information is protected by the Federal Confidentiality of Alcohol and Drug Abuse Patient Records regulations: The Federal rules restrict any use of the information to criminally investigate or prosecute any alcohol or drug abuse patient.[facility] HospitalIn the event this information is protected by the Federal Confidentiality of Alcohol and Drug Abuse Patient Records regulations: The Federal rules restrict any use of the information to criminally investigate or prosecute any alcohol or drug abuse patient.[facility] HospitalIn the event this information is protected by the Federal Confidentiality of Alcohol and Drug Abuse Patient Records regulations: The Federal rules restrict any use of the information to criminally investigate or prosecute any alcohol or drug abuse patient.[facility] HospitalIn the event this information is protected by the Federal Confidentiality of Alcohol and Drug Abuse Patient Records regulations: The Federal rules restrict any use of the information to criminally investigate or prosecute any alcohol or drug abuse patient.[facility] HospitalIn the event this information is protected by the Federal Confidentiality of Alcohol and Drug Abuse Patient Records regulations: The Federal rules restrict any use of the information to criminally investigate or prosecute any alcohol or drug abuse patient.[facility] HospitalIn the event this information is protected by the Federal Confidentiality of Alcohol and Drug Abuse Patient Records regulations: The Federal rules restrict any use of the information to criminally investigate or prosecute any alcohol or drug abuse patient.[facility] HospitalIn the event this information is protected by the Federal Confidentiality of Alcohol and Drug Abuse Patient Records regulations: The Federal rules restrict any use of the information to criminally investigate or prosecute any alcohol or drug abuse patient.[facility] HospitalIn the event this information is protected by the Federal Confidentiality of Alcohol and Drug Abuse Patient Records regulations: The Federal rules restrict any use of the information to criminally investigate or prosecute any alcohol or drug abuse patient.[facility] HospitalIn the event this information is protected by the Federal Confidentiality of Alcohol and Drug Abuse Patient Records regulations: The Federal rules restrict any use of the information to criminally investigate or prosecute any alcohol or drug abuse patient.[facility] HospitalIn the event this information is protected by the Federal Confidentiality of Alcohol and Drug Abuse Patient Records regulations: The Federal rules restrict any use of the information to criminally investigate or prosecute any alcohol or drug abuse patient.[facility] HospitalIn the event this information is protected by the Federal Confidentiality of Alcohol and Drug Abuse Patient Records regulations: The Federal rules restrict any use of the information to criminally investigate or prosecute any alcohol or drug abuse patient.[facility] HospitalIn the event this information is protected by the Federal Confidentiality of Alcohol and Drug Abuse Patient Records regulations: The Federal rules restrict any use of the information to criminally investigate or prosecute any alcohol or drug abuse patient.[facility] HospitalIn the event this information is protected by the Federal Confidentiality of Alcohol and Drug Abuse Patient Records regulations: The Federal rules restrict any use of the information to criminally investigate or prosecute any alcohol or drug abuse patient.[facility] HospitalIn the event this information is protected by the Federal Confidentiality of Alcohol and Drug Abuse Patient Records regulations: The Federal rules restrict any use of the information to criminally investigate or prosecute any alcohol or drug abuse patient.[facility] HospitalIn the event this information is protected by the Federal Confidentiality of Alcohol and Drug Abuse Patient Records regulations: The Federal rules restrict any use of the information to criminally investigate or prosecute any alcohol or drug abuse patient.[facility] HospitalIn the event this information is protected by the Federal Confidentiality of Alcohol and Drug Abuse Patient Records regulations: The Federal rules restrict any use of the information to criminally investigate or prosecute any alcohol or drug abuse patient.[facility] HospitalIn the event this information is protected by the Federal Confidentiality of Alcohol and Drug Abuse Patient Records regulations: The Federal rules restrict any use of the information to criminally investigate or prosecute any alcohol or drug abuse patient.[facility] HospitalIn the event this information is protected by the Federal Confidentiality of Alcohol and Drug Abuse Patient Records regulations: The Federal rules restrict any use of the information to criminally investigate or prosecute any alcohol or drug abuse patient.[facility] HospitalIn the event this information is protected by the Federal Confidentiality of Alcohol and Drug Abuse Patient Records regulations: The Federal rules restrict any use of the information to criminally investigate or prosecute any alcohol or drug abuse patient.[facility] HospitalIn the event this information is protected by the Federal Confidentiality of Alcohol and Drug Abuse Patient Records regulations: The Federal rules restrict any use of the information to criminally investigate or prosecute any alcohol or drug abuse patient.[facility] HospitalIn the event this information is protected by the Federal Confidentiality of Alcohol and Drug Abuse Patient Records regulations: The Federal rules restrict any use of the information to criminally investigate or prosecute any alcohol or drug abuse patient.[facility] HospitalIn the event this information is protected by the Federal Confidentiality of Alcohol and Drug Abuse Patient Records regulations: The Federal rules restrict any use of the information to criminally investigate or prosecute any alcohol or drug abuse patient.[facility] HospitalIn the event this information is protected by the Federal Confidentiality of Alcohol and Drug Abuse Patient Records regulations: The Federal rules restrict any use of the information to criminally investigate or prosecute any alcohol or drug abuse patient.[facility] HospitalIn the event this information is protected by the Federal Confidentiality of Alcohol and Drug Abuse Patient Records regulations: The Federal rules restrict any use of the information to criminally investigate or prosecute any alcohol or drug abuse patient.[facility] HospitalIn the event this information is protected by the Federal Confidentiality of Alcohol and Drug Abuse Patient Records regulations: The Federal rules restrict any use of the information to criminally investigate or prosecute any alcohol or drug abuse patient.[facility] HospitalIn the event this information is protected by the Federal Confidentiality of Alcohol and Drug Abuse Patient Records regulations: The Federal rules restrict any use of the information to criminally investigate or prosecute any alcohol or drug abuse patient.[facility] HospitalIn the event this information is protected by the Federal Confidentiality of Alcohol and Drug Abuse Patient Records regulations: The Federal rules restrict any use of the information to criminally investigate or prosecute any alcohol or drug abuse patient.[facility] HospitalIn the event this information is protected by the Federal Confidentiality of Alcohol and Drug Abuse Patient Records regulations: The Federal rules restrict any use of the information to criminally investigate or prosecute any alcohol or drug abuse patient.[facility] HospitalIn the event this information is protected by the Federal Confidentiality of Alcohol and Drug Abuse Patient Records regulations: The Federal rules restrict any use of the information to criminally investigate or prosecute any alcohol or drug abuse patient.[facility] HospitalIn the event this information is protected by the Federal Confidentiality of Alcohol and Drug Abuse Patient Records regulations: The Federal rules restrict any use of the information to criminally investigate or prosecute any alcohol or drug abuse patient.[facility] HospitalIn the event this information is protected by the Federal Confidentiality of Alcohol and Drug Abuse Patient Records regulations: The Federal rules restrict any use of the information to criminally investigate or prosecute any alcohol or drug abuse patient.[facility] HospitalIn the event this information is protected by the Federal Confidentiality of Alcohol and Drug Abuse Patient Records regulations: The Federal rules restrict any use of the information to criminally investigate or prosecute any alcohol or drug abuse patient.[facility] HospitalIn the event this information is protected by the Federal Confidentiality of Alcohol and Drug Abuse Patient Records regulations: The Federal rules restrict any use of the information to criminally investigate or prosecute any alcohol or drug abuse patient.[facility] HospitalIn the event this information is protected by the Federal Confidentiality of Alcohol and Drug Abuse Patient Records regulations: The Federal rules restrict any use of the information to criminally investigate or prosecute any alcohol or drug abuse patient.[facility] HospitalIn the event this information is protected by the Federal Confidentiality of Alcohol and Drug Abuse Patient Records regulations: The Federal rules restrict any use of the information to criminally investigate or prosecute any alcohol or drug abuse patient.[facility] HospitalIn the event this information is protected by the Federal Confidentiality of Alcohol and Drug Abuse Patient Records regulations: The Federal rules restrict any use of the information to criminally investigate or prosecute any alcohol or drug abuse patient.[facility] HospitalIn the event this information is protected by the Federal Confidentiality of Alcohol and Drug Abuse Patient Records regulations: The Federal rules restrict any use of the information to criminally investigate or prosecute any alcohol or drug abuse patient.[facility] HospitalIn the event this information is protected by the Federal Confidentiality of Alcohol and Drug Abuse Patient Records regulations: The Federal rules restrict any use of the information to criminally investigate or prosecute any alcohol or drug abuse patient.[facility] HospitalIn the event this information is protected by the Federal Confidentiality of Alcohol and Drug Abuse Patient Records regulations: The Federal rules restrict any use of the information to criminally investigate or prosecute any alcohol or drug abuse patient.[facility] HospitalIn the event this information is protected by the Federal Confidentiality of Alcohol and Drug Abuse Patient Records regulations: The Federal rules restrict any use of the information to criminally investigate or prosecute any alcohol or drug abuse patient.[facility] HospitalIn the event this information is protected by the Federal Confidentiality of Alcohol and Drug Abuse Patient Records regulations: The Federal rules restrict any use of the information to criminally investigate or prosecute any alcohol or drug abuse patient.[facility] HospitalIn the event this information is protected by the Federal Confidentiality of Alcohol and Drug Abuse Patient Records regulations: The Federal rules restrict any use of the information to criminally investigate or prosecute any alcohol or drug abuse patient.[facility] HospitalIn the event this information is protected by the Federal Confidentiality of Alcohol and Drug Abuse Patient Records regulations: The Federal rules restrict any use of the information to criminally investigate or prosecute any alcohol or drug abuse patient.[facility] HospitalIn the event this information is protected by the Federal Confidentiality of Alcohol and Drug Abuse Patient Records regulations: The Federal rules restrict any use of the information to criminally investigate or prosecute any alcohol or drug abuse patient.[facility] HospitalIn the event this information is protected by the Federal Confidentiality of Alcohol and Drug Abuse Patient Records regulations: The Federal rules restrict any use of the information to criminally investigate or prosecute any alcohol or drug abuse patient.[facility] HospitalIn the event this information is protected by the Federal Confidentiality of Alcohol and Drug Abuse Patient Records regulations: The Federal rules restrict any use of the information to criminally investigate or prosecute any alcohol or drug abuse patient.[facility] HospitalIn the event this information is protected by the Federal Confidentiality of Alcohol and Drug Abuse Patient Records regulations: The Federal rules restrict any use of the information to criminally investigate or prosecute any alcohol or drug abuse patient.[facility] HospitalIn the event this information is protected by the Federal Confidentiality of Alcohol and Drug Abuse Patient Records regulations: The Federal rules restrict any use of the information to criminally investigate or prosecute any alcohol or drug abuse patient.[facility] HospitalIn the event this information is protected by the Federal Confidentiality of Alcohol and Drug Abuse Patient Records regulations: The Federal rules restrict any use of the information to criminally investigate or prosecute any alcohol or drug abuse patient.[facility] HospitalIn the event this information is protected by the Federal Confidentiality of Alcohol and Drug Abuse Patient Records regulations: The Federal rules restrict any use of the information to criminally investigate or prosecute any alcohol or drug abuse patient.[facility] HospitalIn the event this information is protected by the Federal Confidentiality of Alcohol and Drug Abuse Patient Records regulations: The Federal rules restrict any use of the information to criminally investigate or prosecute any alcohol or drug abuse patient.[facility] HospitalIn the event this information is protected by the Federal Confidentiality of Alcohol and Drug Abuse Patient Records regulations: The Federal rules restrict any use of the information to criminally investigate or prosecute any alcohol or drug abuse patient.[facility] Reason for Visit (unrecogniz ed section and content) Reason Comments Ortho referral Reason Comments Patient Question Reason Comments CT schedule Reason Comments Radiology CT Specialty Diagnoses / Procedures Referred By Contac t Referred To Contact CT IMAGING Diagnoses Other injury of unspecified muscle, fascia and tendon at shoulder and upper arm level, unspecified arm, initial encounter Procedures CT SHOULDER WO IVCON LT CT UPPER EXTREMITY W/O CONTRAST MATERIAL May Bridges PA-C [address] [place] [address] Ct Imaging Referral ID Status Reason Start Date Expiration Date V isits Requested Visits Authorized [id number] Closed Auto-Generate d Referral 09/09/2021 10/09/2022 1 1 Reason Comments Results Reason Comments Results Reason Comments Follow Up LEFT shoulder & RIGH T hip pain Reason Comments Acute Visit bilateral ankle dusty a for a few weeks/ no redness or pain Reason Comments Medication Question Reason Comments Blood Pressure Check Reason Comments Blood Pressure Check Reason Comments Appointment cardiology Reason Comments Patient Update Reason Comments Follow Up 3 month follow up-sa w cardio recently Reason Comments Hypertension Weight Loss Specialty Diagnoses / Procedures Referred By Contac t Referred To Contact CT IMAGING Diagnoses Weight loss Procedures CT ABD/PEL WO IVCON CT ABD & PELVIS W/O CONTRAST Markus Rascon MD [address] [place] [address] Ct Imaging Referral ID Status Reason Start Date Expiration Date V isits Requested Visits Authorized [id number] Closed Auto-Generate d Referral 01/17/2022 02/16/2023 [address] Reason Comments Hypertension Follow up Reason Comments Established Patient 6 month follow up Reason Comments Release Of Medical Records Reason Comments Established Patient Reason Comments Established Patient Follow-Up Reason Comments Hypertension 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 Fatigue Weak feeling when ac tive starting then end of last week. Reason Onset Date Comments Refill Request 10/11/2023 Reason Comments Radiology [place] Specialty Diagnoses / Procedures [facility] To Contact MOLECULAR & FUNCTIONAL IMAGING Diagnoses Chest pain, unspecified type Procedures NM CARDIAC PERF STRESS/PHARM MYOCARDIAL SPECT MULTIPLE STUDIES Rylee Duarte, PLC ENGINEER.TOBACCO DIPPER [address] [place] [address] Molecular & Functional Imaging [address] [place] [id number] Referral ID Status Reason Start Date Expiration Date V isits Requested Visits Authorized [id number] Closed Auto-Generate d Referral 09/04/2023 10/03/2024 1 1 Reason Onset Date Comments Refill Request 10/23/2023 Reason Comments Established Patient 8 month follow up Reason Comments Female Problem Specialty Diagnoses / Procedures [facility] Referred To Contact Gynecologic Oncology Diagnoses Other noninflammatory disorders of ovary, fallopian tube and broad ligament Procedures [place] OFFICE/OUTPATIENT NEW HIGH MDM 60 MINUTES Tariq Chew [address] [place] [address] [facility] Venipuncturist Onc [address] [place] [address] Referral ID Status Reason Start Date Expiration Date V isits Requested Visits Authorized [id number] Pending Review 11/17/2023 11/16/2024 1 1 Reason Onset Date Comments Medication Problem 11/24/2023 Reason Comments New Patient Combo surgery for pr olapse with dr chery. Urgency frequency, leaking of gas occasional., not emptying bladder. ALVIN, and urge incont. Reason Onset Date Comments surgery scheduling 11/30/2023 Scheduled at [facility] Reason Comments Procedure UDS-Dr Alston for oc cult ALVIN Reason Comments Results UDS Reason Onset Date Comments surgery scheeduling 12/12/2023 Scheduled at [facility] Reason Comments Patient Question Patient Update Specialty Diagnoses / Procedures Referred By Neil elder Referred To Contact Diagnoses Intra-abdominal and pelvic swelling, mass and lump, unspecified site Abnormal findings on diagnostic imaging of other specified body structures Incomplete uterovaginal prolapse Cystocele, midline Rectocele Procedures MN LAPS W/VAG HYSTERECT 250 GM/&RMVL TUBE&/OVARIES MN COLPOPEXY VAGINAL INTRAPERITONEAL APPROACH MN CMBND ANTERPOST COLPORRAPHY W/CYSTO MN SLING OPERATION STRESS INCONTINENCE MN CYSTOURETHROSCOPY LAPAROSCOPIC VAGINAL HYSTERECTOMY WITH REMOVAL BILATERAL SALPINGO OOPHORECTOMY UTEROSACRAL LIGAMENT SUSPENSION, ANTERIOR/POSTERIOR REPAIR, POSSIBLE SLING PROCEDURE, CYSTOSCOPY ANTERIOR AND POSTERIOR COLPORRHAPHY SLING OPERATION FOR STRESS INCONTINENCE CYSTOSCOPY Leandro Chery MD [address] [facility] [address] [place] [address] [facility] Main Or [address] [place] [address] Referral ID Status Reason Start Date Expiration Date Visits Re quested Visits Authorized [id number] 1 1 Reason Comments Post-op Visit Reason Onset Date Comments Post-op Problem 12/24/2023 Reason Onset Date Comments Other 01/03/2024 Restrictions aft er surgery Reason Comments Post-op Thinks maybe the rec chad part came undone , states it looks different, maybe hemorrhoids? Reason Comments 6 Month Exam Weight Loss Steadily decreasing weight Reason Comments Recheck 4 week follow up- we ight loss Reason Comments Med Change Request Reason Comments Consult Iron deficiency anem ia, unspecified iron deficiency anemia type [D50.9]; Family history of colon cancer [Z80.0]; Weight loss [R63.4]; Heme positive stool [R19.5] Specialty Diagnoses / Procedures Referred By Neil elder Referred To Contact General Surgery Diagnoses Iron deficiency anemia, unspecified iron deficiency anemia type Family history of colon cancer Weight loss Heme positive stool Procedures CONSULT TO GENERAL SURGERY OFFICE/OUTPATIENT NEW HIGH MDM 60 MINUTES Markus Rascon MD [address] [place] [address] Referral ID Status Reason Start Date Expiration Date V isits Requested Visits Authorized [id number] Closed PCP Requested Referral 02/19/2024 02/18/2025 1 1 Care Teams (unrecognized sec tion and content) 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 Start Date End Date Markus Rascon MD [address] [place] [address] PCP - General Family Practice 08/09/18 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 Start Date End Date Markus Rascon MD [address] [place] [address] PCP - General Family Practice 08/09/18 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 Start Date End Date Markus Rascon MD [address] [place] [address] PCP - General Family Practice 08/09/18 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 Start Date End Date Markus Rascon MD [address] [place] [address] PCP - General Family Practice 08/09/18 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 Start Date End Date Markus Rascon MD [address] [place] [address] PCP - General Family Practice 08/09/18 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 Start Date End Date Markus Rascon MD [address] [place] [address] PCP - General Family Practice 08/09/18 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 Start Date End Date Markus Rascon MD [address] [place] [address] PCP - General Family Practice 08/09/18 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 Start Date End Date Markus Rascon MD [address] [place] [address] PCP - General Family Practice 08/09/18 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 Start Date End Date Markus Rascon MD [address] [place] [address] PCP - General Family Practice 08/09/18 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 Start Date End Date Markus Rascon MD [address] [place] [address] PCP - General Family Practice 08/09/18 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 Start Date End Date Markus Rascon MD [address] [place] [address] PCP - General Family Practice 08/09/18 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 Start Date End Date Markus Rascon MD [address] [place] [address] PCP - General Family Practice 08/09/18 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 Start Date End Date Markus Rascon MD [address] [place] [address] PCP - General Family Practice 08/09/18 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 Start Date End Date Markus Rascon MD [address] [place] [address] PCP - General Family Practice 08/09/18 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 Start Date End Date Markus Rascon MD [address] [place] [address] PCP - General Family Practice 08/09/18 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 Start Date End Date Markus Rascon MD [address] [place] [address] PCP - General Family Practice 08/09/18 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 Start Date End Date Markus Rascon MD [address] [place] [address] PCP - General Family Practice 08/09/18 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 Start Date End Date Markus Rascon MD [address] [place] [address] PCP - General Family Practice 08/09/18 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 Start Date End Date Markus Rascon MD [address] [place] [address] PCP - General Family Medicine 08/09/18 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 Start Date End Date Markus Rascon MD [address] [place] [address] PCP - General Family Medicine 08/09/18 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 Start Date End Date Markus Rascon MD [address] [place] [address] PCP - General Family Medicine 08/09/18 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 Start Date End Date Markus Rascon MD [address] [place] [address] PCP - General Family Medicine 08/09/18 Danny Oneill, DO [address] [place] [place] [address] Hematology/Oncology 04/21/22 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 Start Date End Date Markus Rascon MD [address] [place] [address] PCP - General Family Medicine 08/09/18 Danny Oneill, DO [address] [place] [place] [address] Hematology/Oncology 04/21/22 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 Start Date End Date Markus Rascon MD [address] [place] [address] PCP - General Family Medicine 08/09/18 Danny Oneill, DO [address] [place] [address] Hematology/Oncology 04/21/22 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 Start Date End Date Markus Rascon MD [address] [facility] [place] [address] PCP - General Family Medicine 08/09/18 Danny Oneill, DO [address] [place] [address] Hematology/Oncology 04/21/22 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 Start Date End Date Markus Rascon MD [address] [facility] [place] [address] PCP - General Family Medicine 08/09/18 Danny Oneill, DO [address] [place] [address] Hematology/Oncology 04/21/22 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 Start Date End Date Markus Rascon MD [address] [facility] [place] [address] PCP - General Family Medicine 08/09/18 Danny Oneill, DO [address] [place] [address] Hematology/Oncology 04/21/22 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 Start Date End Date Markus Rascon MD [address] [facility] [place] [address] PCP - General Family Medicine 08/09/18 Danny Oneill, DO [address] [place] [address] Hematology/Oncology 04/21/22 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 Start Date End Date Markus Rascon MD [address] [facility] [place] [address] PCP - General Family Medicine 08/09/18 Danny Oneill, DO [address] [place] [address] Hematology/Oncology 04/21/22 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 Start Date End Date Markus Rascon MD [address] [facility] [place] [address] PCP - General Family Medicine 08/09/18 Danny Oneill, [address] [place] [address] Hematology/Oncology 04/21/22 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 Start Date End Date Markus Rascon MD [address] [facility] [place] [address] PCP - General Family Medicine 08/09/18 Danny Oneill, DO [address] [place] [address] Hematology/Oncology 04/21/22 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 Start Date End Date Markus Rascon MD [address] [facility] [place] [address] PCP - General Family Medicine 08/09/18 Danny Oneill DO [address] [place] [address] Hematology/Oncology 04/21/22 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 Start Date End Date Markus Rascon MD [address] [facility] [place] [address] PCP - General Family Medicine 08/09/18 Danny Oneill DO [address] [place] [address] Hematology/Oncology 04/21/22 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 Start Date End Date Markus Rascon MD [address] [place] [address] PCP - General Family Medicine 08/09/18 Danny Oneill DO [address] [place] [address] Hematology/Oncology 04/21/22 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 Start Date End Date Markus Rascon MD [address] [place] [address] PCP - General Family Medicine 08/09/18 Danny Oneill DO [address] [place] [address] Hematology/Oncology 04/21/22 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 Start Date End Date Markus Rascon MD [address] [place] [address] PCP - General Family Medicine 08/09/18 Danny Oneill DO [address] [place] [address] Hematology/Oncology 04/21/22 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 Start Date End Date Markus Rascon MD [address] [place] [address] PCP - General Family Medicine 08/09/18 Danny Oneill DO [address] [place] [address] Hematology/Oncology 04/21/22 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 Start Date End Date Markus Rascon MD [address] [facility] [place] [address] PCP - General Family Medicine 08/09/18 Danny Oneill DO [address] [place] [address] Hematology/Oncology 04/21/22 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 Start Date End Date Markus Rascon MD [address] [facility] [place] [address] PCP - General Family Medicine 08/09/18 Danny Oneill DO [address] [place] [address] Hematology/Oncology 04/21/22 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 Start Date End Date Markus Rascon MD [address] [facility] [place] [address] PCP - General Family Medicine 08/09/18 Danny Oneill DO [address] [place] [address] Hematology/Oncology 04/21/22 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 Start Date End Date Markus Rascon MD [address] [place] [address] PCP - General Family Medicine 08/09/18 Danny Oneill DO [address] [place] [address] Hematology/Oncology 04/21/22 Gordy Null MD [address] [place] [address] Endocrinology 07/04/23 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 Start Date End Date Markus Rascon MD [address] [place] [address] PCP - General Family Medicine 08/09/18 Danny Oneill DO [address] [facility] [place] [address] Hematology/Oncology 04/21/22 Gordy Null MD [address] [place] [address] Endocrinology 07/04/23 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 Start Date End Date Markus Rascon MD [address] [place] [address] PCP - General Family Medicine 08/09/18 Danny Oneill DO [address] [place] [place] [address] Hematology/Oncology 04/21/22 Gordy Null MD [address] [place] [address] Endocrinology 07/04/23 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 Start Date End Date Markus Rascon MD [address] [place] [address] PCP - General Family Medicine 08/09/18 Danny Oneill DO [address] [place] [address] Hematology/Oncology 04/21/22 Gordy Null MD [address] [facility] [address] [place] [address] Endocrinology 07/04/23 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 Start Date End Date Markus Rascon MD [address] [place] [address] PCP - General Family Medicine 08/09/18 Danny Oneill DO [address] [place] [address] Hematology/Oncology 04/21/22 Gordy Null MD [address] [facility] [address] [place] [address] Endocrinology 07/04/23 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 Start Date End Date Markus Rascon MD [address] [place] [address] PCP - General Family Medicine 08/09/18 Danny Oneill DO [address] [place] [address] Hematology/Oncology 04/21/22 Gordy Null MD [address] [facility] [address] [place] [address] Endocrinology 07/04/23 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 Start Date End Date Markus Rascon MD [address] [place] [address] PCP - General Family Medicine 08/09/18 Danny Oneill DO [address] [place] [address] Hematology/Oncology 04/21/22 Gordy Null MD [address] [facility] [facility] [address] [place] [address] Endocrinology 07/04/23 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 Start Date End Date Markus Rascon MD [address] [place] [address] PCP - General Family Medicine 08/09/18 Danny Oneill DO [address] [address] Hematology/Oncology 04/21/22 Gordy Null MD [address] [place] [address] Endocrinology 07/04/23 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 Start Date End Date Markus Rascon MD [address] [place] [address] PCP - General Family Medicine 08/09/18 Danny Oneill DO [address] [place] [address] Hematology/Oncology 04/21/22 Gordy Null MD [address] [facility] [address] [place] [address] Endocrinology 07/04/23 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 Start Date End Date Markus Rascon MD [address] [place] [address] PCP - General Family Medicine 08/09/18 Danny Oneill DO [address] [place] [address] Hematology/Oncology 04/21/22 Gordy Null MD [address] [address] Endocrinology 07/04/23 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 Start Date End Date Markus Rascon MD [address] [place] [address] PCP - General Family Medicine 08/09/18 Danny Oneill DO [address] [place] [address] Hematology/Oncology 04/21/22 Gordy Null MD [address] [address] Endocrinology 07/04/23 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 Start Date End Date Markus Rascon MD [address] [place] [address] PCP - General 04/15/20 Leandro Chery MD [address] [place] [address] Consulting Physician Gynecologic Oncology 11/19/23 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 Start Date End Date Markus Rascon MD [address] [place] [address] PCP - General 04/15/20 Leandro Chery MD [address] [facility] [address] [place], [place] [id number] Consulting Physician Gynecologic Oncology 11/19/23 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 Start Date End Date Markus Rascon MD [address] [place] [address] PCP - General 04/15/20 Leandro Chery MD [address] [facility] [address] [place] [address] Consulting Physician Gynecologic Oncology 11/19/23 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 Start Date End Date Markus Rascon MD [address] [place] [address] PCP - General 04/15/20 Leandro Chery MD [address] [facility] [address] [place] [address] Consulting Physician Gynecologic Oncology 11/19/23 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 Start Date End Date Markus Rascon MD [address] [place] [address] PCP - General 04/15/20 Leandro Chery MD [address] [facility] [address] [place] [address] Consulting Physician Gynecologic Oncology 11/19/23 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 Start Date End Date Markus Rascon MD [address] [place] [address] PCP - General 04/15/20 Leandro Chery MD [address] [facility] [address] [place], [place] [id number] Consulting Physician Gynecologic Oncology 11/19/23 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 Start Date End Date Markus Rascon MD [address] [facility] [place] [address] PCP - General 04/15/20 Leandro Chery MD [address] [facility] [address] [place], [place] [id number] Consulting Physician Gynecologic Oncology 11/19/23 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 Start Date End Date Markus Rascon MD [address] [facility] [place], [place] [address] PCP - General 04/15/20 Leandro Chery MD [address] [facility] [address] [place] [address] Consulting Physician Gynecologic Oncology 11/19/23 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 Start Date End Date Markus Rascon MD [address] [facility] [place] [address] PCP - General 04/15/20 Leandro Chery MD [address] [facility] [address] [place] [address] Consulting Physician Gynecologic Oncology 11/19/23 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 Start Date End Date Markus Rascon MD [address] [facility] [place] [address] PCP - General 04/15/20 Leandro Chery MD [address] [facility] [address] [place] [address] Consulting Physician Gynecologic Oncology 11/19/23 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 Start Date End Date Markus Rascon MD [address] [facility], [place] [address] PCP - General Family Medicine 08/09/18 Danny Oneill DO [address] [facility], [place] [address] Hematology/Oncology 04/21/22 Gordy Null MD [address] [place] [address] Endocrinology 07/04/23 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 Start Date End Date Markus Rascon MD [address] [place] [address] PCP - General Family Medicine 08/09/18 Danny Oneill DO [address] [place] [place] [address] Hematology/Oncology 04/21/22 Gordy Null MD [address] [place] [address] Endocrinology 07/04/23 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 Start Date End Date Markus Rascon MD [address] [facility] [place] [address] PCP - General 04/15/20 Leandro Chery MD [address] [facility] [address] [place] [address] Consulting Physician Gynecologic Oncology 11/19/23 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 Start Date End Date Markus Rascon MD [address] [facility] [place] [address] PCP - General 04/15/20 Leandro Chery MD [address] [place] [address] Consulting Physician Gynecologic Oncology 11/19/23 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 Start Date End Date Markus Rascon MD [facility] [place] [address] PCP - General 04/15/20 Leandro Chery MD [address] [facility] [address] [place] [address] Consulting Physician Gynecologic Oncology 11/19/23 Pelon Davis MD [address] [facility] [address] [place] [address] Consulting Physician Gynecologic Oncology 12/24/23 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 Start Date End Date Markus Rascon MD [address] [place] [address] PCP - General 04/15/20 Leandro Chery MD [address] [facility] [address] [place] [address] Consulting Physician Gynecologic Oncology 11/19/23 Pelon Davis MD [address] [facility] [address] [place], [place] [phone] Consulting Physician Gynecologic Oncology 12/24/23 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 Start Date End Date Markus Rascon MD [address] [facility] [place], [place] [address] PCP - General 04/15/20 Leandro Chery MD [address] [facility] [address] [place] [address] Consulting Physician Gynecologic Oncology 11/19/23 Pelon Davis MD [address] [facility] [address] [place] [address] Consulting Physician Gynecologic Oncology 12/24/23 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 Start Date End Date Markus Rascon MD [address] [facility] [place], [place] [address] PCP - General 04/15/20 Leandro Chery MD [address] [facility] [address] [place] [address] Consulting Physician Gynecologic Oncology 11/19/23 Pleon Davis MD [address] [facility] [address] [place] [address] Consulting Physician Gynecologic Oncology 12/24/23 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 Start Date End Date Markus Rascon MD [address] [place], [place] [id number] PCP - General Family Medicine 08/09/18 Danny Oneill DO [address] [place], [place] [id number] Hematology/Oncology 04/21/22 Gordy Null MD [address] [facility] [address] [place] [address] Endocrinology 07/04/23 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 Start Date End Date Markus Rascon MD [address] [facility] [place] [address] PCP - General Family Medicine 08/09/18 Danny Oneill DO [address] [place] [address] Hematology/Oncology 04/21/22 Gordy Null MD [address] [facility] [address] [place] [address] Endocrinology 07/04/23 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 Start Date End Date Markus Rascon MD [address] [facility] [place] [address] PCP - General Family Medicine 08/09/18 Danny Oneill DO [address] [place] [address] Hematology/Oncology 04/21/22 Gordy Null MD [address] [facility] [address] [place] [address] Endocrinology 07/04/23 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 Start Date End Date Markus Rascon MD [address] [place] [address] PCP - General Family Medicine 08/09/18 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 Start Date End Date Markus Rascon MD [address] [place] [address] PCP - General Family Medicine 08/09/18 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 Start Date End Date Markus Rascon MD [address] [facility] [place] [address] PCP - General Family Medicine 08/09/18 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 Start Date End Date Markus Rascon MD [address] [place] [address] PCP - General Family Medicine 08/09/18 Danny Oneill DO [address] [place] [address] Hematology/Oncology 04/21/22 Gordy Null MD [address] [facility] [address] [place] [address] Endocrinology 07/04/23 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 Start Date End Date Markus Rascon MD [address] [place] [address] PCP - General Family Medicine 08/09/18 Danny Oneill DO [address] [facility] [address] Hematology/Oncology 04/21/22 Gordy Null MD [address] [place] [address] Endocrinology 07/04/23 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 Start Date End Date Markus Rascon MD [address] [facility], [place] [address] PCP - General Family Medicine 08/09/18 Danny Oneill DO [address] [place] [address] Hematology/Oncology 04/21/22 Gordy Null MD [address] [facility] [address] [place] [address] Endocrinology 07/04/23 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 Start Date End Date Markus Rascon MD [address] [place] [address] PCP - General Family Medicine 08/09/18 Danny Oneill DO [address] [place] [address] Hematology/Oncology 04/21/22 Gordy Null MD [address] [facility] [address] [place] [address] Endocrinology 07/04/23 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 Start Date End Date Markus Rascon MD [address] [place] [address] PCP - General Family Medicine 08/09/18 Danny Oneill DO [address] [place] [address] Hematology/Oncology 04/21/22 Gordy Null MD [address] [facility] [address] [place] [address] Endocrinology 07/04/23 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 Start Date End Date Markus Rascon MD [address] [place] [address] PCP - General Family Medicine 08/09/18 Danny Oneill DO [address] [place] [address] Hematology/Oncology 04/21/22 Gordy Null MD [address] [facility] [address] [place] [address] Endocrinology 07/04/23 INFORMATION SOURCE (unrecogn ized section and content) DATE CREATED AUTHOR 02/15/2023 [facility] DATE CREATED AUTHOR AUTHOR'S ORGANIZ ATION 06/23/2023 [facility] DATE CREATED AUTHOR AUTHOR'S ORGANIZ ATION 03/21/2024 [facility] DATE CREATED AUTHOR AUTHOR'S ORGANIZ ATION 03/26/2024 [facility] Scheduled Active and Recently Administ ered Medications (unrecognized section and content) Medication Order 12/17/2023 12/18/2023 12/19/2023 acetaminophen (Tylenol) tablet 1,000 mg (COMPLETED) 1,000 mg, Oral, Once, On Mon12/19/23 at 1100, For 1 dose, Preprocedure, Administer 60 minutes prior to surgery. 1114 (Given - Provid er: Rosalind Barrera RN) ciprofloxacin (Cipro) IVPB 400 mg (COMPLETED)(Linked Group 1) 400 mg, IntraVENous, at 200 mL/hr, Administer over 60 Minutes, Once, On Mon12/19/23 at 1100, For 1 dose, Preprocedure, Administer within 1 hour prior to incision premix bag, Suspected Indication (Select all that apply): Surgical Prophylaxis 1317 (Given - Provid er: Tavon Groves APRN - HISTOLOGY AIDE) famotidine (Pepcid) tablet 20 mg (COMPLETED)(Linked Group 2) 20 mg, Oral, Once, On Mon12/19/23 at 1100, For 1 dose, Preprocedure, IV or Oral 1114 (Given - Provid er: Rosalind Barrera RN) metroNIDAZOLE (Flagyl) IVPB 500 mg (COMPLETED)(Linked Group 1) 500 mg, IntraVENous, at 100 mL/hr, Administer over 60 Minutes, Once, On Mon12/19/23 at 1100, For 1 dose, Preprocedure, Administer within 1 hour prior to incision., Suspected Indication (Select all that apply): Surgical Prophylaxis 1319 (Given - Provid er: PEARL Bonilla CRNA) sodium chloride 0.9% (NS) flush 10 mL 10 mL, IntraVENous, Every 12 hours scheduled (2 times per day), First dose on Mon12/19/23 at 2100, Recovery (only) 2100 (Canceled Entry - Provider: Automatic Discharge Provider - Comment: Automatically canceled at discontinue of medication order) sodium chloride 0.9% (NS) flush 5-40 mL 5-40 mL, IntraVENous, Every 12 hours, First dose on Mon12/19/23 at 1100, Preprocedure, For Line Patency: Peripheral IV = 5 mL; Midline or Central Line = 10 mL/lumen. If following IV push medication, administer flush at same rate as the IV push. Flush volume is determined by type of infusion therapy being given. For non-viscous solutions use: Peripheral IV = 5 mL Midline or Central Line = 10 mL/lumen For viscous solutions (i.e. blood components, parenteral nutrition, contrast media, or after obtaining blood sample) use: Peripheral IV = 10 mL Midline or Central Line = 20 mL/lumen 1100 (Canceled Entry - Provider: Automatic Discharge Provider - Comment: Automatically canceled at discontinue of medication order) Continuous Medication Order 12/17/2023 12/18/2023 12/19/2023 lactated Ringer's (LR) infusion 50 mL/hr, IntraVENous, Continuous, Starting on Mon12/19/23 at 1100, Preprocedure, Upon admission to sameday - please start iv if patient does not have iv access. Use 500ml NS for patients on dialysis. 1116 (New Bag - Prov ider: Rosalind Barrera RN)1304 (Continued by Anesthesia - Provider: PEARL Bonilla CRNA)1637 (Anesthesia Volume Adjustment - Provider: PEARL Bonilla CRNA) lactated ringers infusion 125 mL/hr, IntraVENous, Continuous, Starting on Mon12/19/23 at 1630, Recovery (only) 1630 (Canceled Entry - Provider: Automatic Discharge Provider - Comment: Automatically canceled at discontinue of medication order) PRN Medication Order 12/17/2023 12/18/2023 12/19/2023 ALPRAZolam (Xanax) disintegrating tablet 0.25 mg 0.25 mg, Oral, Once PRN, anxiety, Starting on Mon12/19/23 at 1051, For 1 dose, Preprocedure, Please do not administer prior to obtaining consent and/or history and physical. diphenhydrAMINE (BENADryl) injection 12.5 mg 12.5 mg, IntraVENous, Once PRN, itching, Starting on Mon12/19/23 at 1626, For 1 dose, Recovery (only) hydrALAZINE (Apresoline) injection 5 mg(Linked Group 3) 5 mg, IntraVENous, Every 15 min PRN, high blood pressure, for SBP greater than 160 mmHg for 2 consecutive measurements taken from different sites, Starting on Mon12/19/23 at 1626, For 2 doses, Recovery (only), PRN for SBP > 160 for 2 consecutive measurements, and if one of the following conditions is met: 1) If IV labetolol is ineffective. 2) If HR is under 60. 3) If patient has heart block, COPD or asthma. If both labetalol and hydralazine ineffective, notify anesthesia provider. HYDROmorphone (Dilaudid) injection 0.25 mg 0.25 mg, IntraVENous, Every 5 min PRN, moderate pain (4-6), Starting on Mon12/19/23 at 1626, For 4 doses, Recovery (only), Phase I and Phase II- Initial therapy for moderate pain (4-6). Restricted to a 90 minute time frame starting when the patient can verbally state their pain score. If after 2 doses the pain score does not decrease by more than one point, then call the provider. If oral meds are utilized, do not return to initial therapy medications. labetalol (Normodyne,Trandate) injection 5 mg(Linked Group 3) 5 mg, IntraVENous, Every 10 min PRN, high blood pressure, for SBP greater than 160 mmHg for 2 consecutive measurements taken from different sites., Starting on Mon12/19/23 at 1626, For 2 doses, Recovery (only), PRN for SBP >160 for 2 consecutive measurements, if HR is 60 or greater. If beta tia is contraindicated (HR less than 60, heart block, COPD or asthma) use hydralazine IV order. lidocaine-EPINEPHrine (Xylocaine W/EPI) 0.5 %-1:969362 injection (CANCELED) As needed, Starting on Mon12/19/23 at 1548, Intraprocedure 1548 (Given - Provid er: Marie Alston MD) lidocaine-EPINEPHrine (Xylocaine W/EPI) 1 %-1:153998 injection (CANCELED) As needed, Starting on Mon12/19/23 at 1400, Intraprocedure 1400 (Given - Provid er: Leandro Chery MD) LORazepam (Ativan) injection 0.5 mg 0.5 mg, IntraVENous, Once PRN, for anxiety or muscle spasm., Starting on Mon12/19/23 at 1626, For 1 dose, Recovery (only), For IV doses dilute dose with 1ml NS. ondansetron (Zofran) injection 4 mg (COMPLETED) 4 mg, IntraVENous, Once PRN, nausea, Starting on Mon12/19/23 at 1626, For 1 dose, Recovery (only), Initial antiemetic therapy. 182 (Given - Provid er: Shiv Madrigal RN) oxyCODONE (Roxicodone) immediate release tablet 5 mg 5 mg, Oral, PRN, moderate pain (4-6), Starting on Mon12/19/23 at 1626, For 1 dose, Recovery (only), PHASE II sodium chloride 0.9 % bolus 500 mL 500 mL, IntraVENous, at 1,000 mL/hr, Administer over 0.5 Hours, PRN, Anti-nausea, Starting on Mon12/19/23 at 1626, Recovery (only), Indications: Anti-nausea sodium chloride 0.9 % infusion 5-250 mL/hr, IntraVENous, PRN, if patient receiving piggyback infusions and maintenance fluids are not ordered OR KVO fluids to protect IV site / prevent frequent line interruptions / long duration, Starting on Mon12/19/23 at 1051, Preprocedure, For piggyback infusion, administer at same rate as piggyback for a total of 25 mL. Enter 25 mL into dose field and piggyback rate into rate field of order. If piggyback is infusing at a rate less than 100 mL/hr, enter 25 mL into dose field and 100 mL/hr into rate field of order. For KVO fluids, enter rate of 20 mL/hr or less into rate field of order. sodium chloride 0.9 % infusion 5-250 mL/hr, IntraVENous, PRN, if patient receiving piggyback infusions and maintenance fluids are not ordered OR KVO fluids to protect IV site / prevent frequent line interruptions/ long duration, Starting on Mon12/19/23 at 1626, Recovery (only), For piggyback infusion, administer at same rate as piggyback for a total of 25 mL. Enter 25 mL into dose field and piggyback rate into rate field of order. If piggyback is infusing at a rate less than 100 mL/hr, enter 25 mL into dose field and 100 mL/hr into rate field of order. For KVO fluids, enter rate of 20 mL/hr or less into rate field of order. sodium chloride 0.9 % irrigation solution (CANCELED) As needed, Starting on Mon12/19/23 at 1337, Intraprocedure 1337 (Given - Provid er: Leandro Chery MD - Comment: SUCTION NATURAL RESOURCES ENGINEER)1549 (Given - Provider: Marie Alston MD - Comment: CYSTO) sodium chloride 0.9% (NS) flush 10 mL 10 mL, IntraVENous, PRN, line care, Starting on Mon12/19/23 at 1626, Recovery (only), After every IV line use sodium chloride 0.9% (NS) flush 5-40 mL 5-40 mL, IntraVENous, PRN, line care, After every IV line use, Starting on Mon12/19/23 at 1051, Preprocedure, For Line Patency: Peripheral IV = 5 mL; Midline or Central Line = 10 mL/lumen. If following IV push medication, administer flush at same rate as the IV push. Flush volume is determined by type of infusion therapy being given. For non-viscous solutions use: Peripheral IV = 5 mL Midline or Central Line = 10 mL/lumen For viscous solutions (i.e. blood components, parenteral nutrition, contrast media, or after obtaining blood sample) use: Peripheral IV = 10 mL Midline or Central Line = 20 mL/lumen sterile water irrigation solution (CANCELED) As needed, Starting on Mon12/19/23 at 1354, Intraprocedure 1354 (Given - Provid er: Leandro Chery MD) Linked Groups Order Group 1: metroNIDAZOLE (Flagyl) IVPB 500 mg (COMPLETED)Jump to med 500 mg, IntraVENous, at 100 mL/hr, Administer over 60 Minutes, Once, On Mon12/19/23 at 1100, For 1 dose, Preprocedure, Administer within 1 hour prior to incision., Suspected Indication (Select all that apply): Surgical Prophylaxis And ciprofloxacin (Cipro) IVPB 400 mg (COMPLETED)Jump to med 400 mg, IntraVENous, at 200 mL/hr, Administer over 60 Minutes, Once, On Mon12/19/23 at 1100, For 1 dose, Preprocedure, Administer within 1 hour prior to incision premix bag, Suspected Indication (Select all that apply): Surgical Prophylaxis Group 2: famotidine (Pepcid) tablet 20 mg (COMPLETED)Jump to med 20 mg, Oral, Once, On Mon12/19/23 at 1100, For 1 dose, Preprocedure, IV or Oral Or famotidine (Pepcid) 20 mg in sodium chloride (PF) 0.9 % 10 mL injection (COMPLETED) 20 mg, IntraVENous, Administer over 2 Minutes, Once, On Mon12/19/23 at 1100, For 1 dose, Preprocedure, IV or Oral Group 3: labetalol (Normodyne,Trandate) injection 5 mgJump to med 5 mg, IntraVENous, Every 10 min PRN, high blood pressure, for SBP greater than 160 mmHg for 2 consecutive measurements taken from different sites., Starting on Mon12/19/23 at 1626, For 2 doses, Recovery (only), PRN for SBP >160 for 2 consecutive measurements, if HR is 60 or greater. If beta tia is contraindicated (HR less than 60, heart block, COPD or asthma) use hydralazine IV order. Or hydrALAZINE (Apresoline) injection 5 mgJump to med 5 mg, IntraVENous, Every 15 min PRN, high blood pressure, for SBP greater than 160 mmHg for 2 consecutive measurements taken from different sites, Starting on Mon12/19/23 at 1626, For 2 doses, Recovery (only), PRN for SBP > 160 for 2 consecutive measurements, and if one of the following conditions is met: 1) If IV labetolol is ineffective. 2) If HR is under 60. 3) If patient has heart block, COPD or asthma. If both labetalol and hydralazine ineffective, notify anesthesia provider. FOR RECORDS PERTAINING TO PATIENTS WHO ARE OR HAVE BEEN ENROLLED IN A CHEMICAL DEPENDENCY/SUBSTANCEABUSE PROGRAM, SOME INFORMATION MAY BE OMITTED. This clinical summary was aggregated from multiple sources. Caution should be exercised in using it in the provision of clinical care. This summary normalizes information from multiple sources, and as a consequence, information in this document may materially change the coding, format and clinical context of patient data. In addition, data may be omitted in some cases. CLINICAL DECISIONS SHOULD BE BASED ON THE PRIMARY CLINICAL RECORDS. [facility]. provides no warranty or guarantee of the accuracy or completeness of information in this document.
--- NOTE | 2024-03-26 17:56 | EDS_ITS ---
HPI History of Present Illness Chief Complaint: Lower Extremity Injury Informant: patient Narrative Narrative: Patient 73-year-old female with history of hypertension and osteoporosis presenting with mild pain and bruising to her right ankle and foot. She states she noticed it a couple days ago. She does not recall any trauma. States he is walking and notes her ankles hurting. She did have pain and some bruising today which prompted her to come to the emergency room. She is on any blood thinners. Denies any abnormal bleeding or other bruising. Denies any new lightheadedness or dizziness. Was concerned this could be a DVT. Does not report any history of DVT. No other complaints or concerns at this time. [facility] Medical History Osteoporosis MGUS (monoclonal gammopathy of unknown significance) Cardiomyopathy Restrictive lung disease Arthritis Hypertension Home Medications ?Medication ?Instructions ?Recorded ?Last Taken ?Type multivitamin,[id number] 1 tab PO DAILY 05/23/18 Unknown History (Complete Multivitamin tablet) denosumab 60 mg/mL subcutaneous 60 mg subcut [id number] #1 mL 07/26/22 Unknown Rx syringe diltiazem HCl 180 mg 180 mg PO DAILY 09/09/22 Unknown History capsule,extended release 24 hr calcium 250 mg 1 tab PO BID 07/25/23 Unknown History (citrate)-ergocalciferol (D2) 2.5 mcg (100 unit) tablet (Bryn-Citrate) mometasone-formoterol HFA 100 2 inh inhalation BID 07/25/23 Unknown History mcg-5 mcg/actuation aerosol inhaler (Dulera) Allergy/AdvReac Type Severity Reaction Status Date / Time aspirin Allergy Intermediate lips swell Verified 03/26/24 16:06 amoxicillin Allergy Rash Verified 03/26/24 16:06 diclofenac Allergy Shortness Verified 03/26/24 16:06 of breath iodine Allergy Anaphylaxis Verified 03/26/24 16:06 metoprolol Allergy PT UNSURE Verified 03/26/24 16:06 OF REACTION shellfish derived Allergy Anaphylaxis Verified 03/26/24 16:06 Family History Mother Cancer colon Father Cancer lung Surgical History History of bunionectomy S/P wrist surgery Social History Smoking Status: Never smoker alcohol intake: current details: social substance use type: does not use caffeine: Yes what type of physical activity do you participate in: none seatbelt use: always do you feel safe at home: Yes additional social history: Ray- retired Patient is retired ROS ROS ED Constitutional Constitutional ED: Denies chills or fever(s) Respiratory/Chest Respiratory/Chest: Denies dyspnea Musculoskeletal Musculoskeletal: Reports other Details: Right ankle pain ; Denies myalgias Integumentary Reports other Details: Bruising to the right ankle Neurologic Neurologic: Denies headache(s), paresthesias or weakness Hematologic/Lymphatic Hematologic/Lymphatic: Denies easy bleeding or easy bruising EXAM Physical Exam Const Vital Signs: 03/26/24 16:04 Temperature 98 F Temperature Source Oral Pulse Rate 98 Respiratory Rate 18 Blood Pressure 171/107 H Blood Pressure Mean 128 Pulse Ox 98 Oxygen Delivery Method Room Air Positive well nourished and well developed General Appearance ED: well developed and NAD Chest Wall inspection of chest normal Resp normal respiratory effort Cardio regular rate and regular rhythm Extremity normal to inspection and full ROM Extremity Narrative: Slight amount of soft tissue swelling noted of the right lateral ankle with associated ecchymosis. No tense palpation over the medial or lateral malleoli. No tense palpation over the base of the fifth metatarsal. No tenderness palpation over the proximal fibula. Normal Cho test. No deformity of the ankle appreciated. No calf edema or palpable cords appreciated. Neuro oriented x3 Sensorium / Orientation: alert Motor Exam: Negative for general weakness Skin Skin Narrative: Ecchymosis noted to the lateral posterior right ankle and slightly into the heel. MDM MDM MDM Narrative Medical decision making narrative: Patient is evaluated for bruising and discomfort to her right ankle. Has an area of ecchymosis. Physical exam not consistent with DVT, dislocation or petechia. X-ray of the ankle reviewed by myself as well as radiology does not show any acute fracture. I suspect patient had a mild trauma that is causing the bruising versus some spontaneous bruising. As she is otherwise well- appearing with good distal pulses I do not think she requires further workup. Discussed I do not think she requires a venous duplex at this time as bruising is typically not how DVT present. Patient verbalized agreement her status. Is given Feng wrap for her ankle. Will continue to wear compression socks at home. Given return precautions. Discharged home in stable condition. Radiography Diagnostic Testing: Clinical Impression(s) from Imaging Studies Ankle X-Ray 03/26/24 16:15 IMPRESSION: Lateral soft tissue swelling. Electronically Signed: Marcelo Browne DO at 16:28 EDT Reading Location ID and State: [facility] / [place] Tel [phone], Service support , Discharge Plan Triage Chief Complaint: Lower Extremity Injury ED Provider: Shaista Alfaro Dx/Rx/DC Orders Clinical Impression: Ecchymosis, Acute right ankle pain Instructions: ED Bandage Elastic Wrap, ED Contusion, Lower Extremity Prescriptions: No Action Complete Multivitamin tablet 1 tab PO DAILY denosumab 60 mg/mL syringe 60 mg SUBCUT [id number] Qty: 1 1RF Dulera 100-5 mcg/actuation HFA aerosol inhaler 2 inh inhalation BID Patient Comments: inhale 2 puffs by mouth and INTO THE LUNGS twice a day Bryn-Citrate 250 mg-2.5 mcg (100 unit) tablet 1 tab PO BID diltiazem HCl 180 mg capsule,extended release 24hr 180 mg PO DAILY Patient Comments: take 1 capsule by mouth once daily Primary Care Provider: Haroldo De Anda Referrals: Haroldo De Anda MD [Primary Care Provider] - Activity Restrictions/Additional Instructions: Your x-ray did not show any acute fracture/broken bone. I do not think this is a DVT. Apply ice, elevate and wear compressive socks or Feng wrap as this heals. Please return if you have progression or worsening symptoms or further concerns peer Print Language: Bahamian Disposition Disposition: Home, Self Care
[2024-03-26 18:07] VITALS: BP 138/77; PULSE 76; RESP 15; TEMP 36.7; O2SAT 99
== END 2024-03-26 18:11 | disposition home or self-care (01) ==
PROVIDERS: Emergency Provider Emergency Medicine; PCP Family Medicine; Visit Provider Emergency Medicine
DX: S90.01XA Contusion of right ankle, initial encounter (principal); I10 Essential (primary) hypertension; M79.671 Pain in right foot; X58.XXXA Exposure to other specified factors, initial encounter
CPT/HCPCS: 73610; 99282

== ENCOUNTER → 2024-12-04 | Outpatient (CLI) | payer MEDICARE, OTHER, SELFPAY ==
--- NOTE | 2024-12-04 13:44 | BI_ITS ---
EXAM: SCRN MAMM (CAD)W/MARY BILAT DATE: 12/04/2024 CLINICAL HISTORY: F, Age 74 y/o , SCREENING MAMMOGRAM FOR BREAST CANCER TECHNIQUE: SCRN MAMM (CAD)W/MARY BILAT COMPARISON: Prior exam(s) dated 12/04/2023, 12/02/2022, 11/22/2021. FINDINGS: TISSUE DENSITY: The breasts are extremely dense, which lowers the sensitivity of mammography. The mammogram demonstrates that the patient has dense breasts. Supplemental screening with whole breast ultrasound or MRI may be considered for further evaluation. Bilateral Breast Mammographic Findings: No significant masses, calcifications or other abnormalities are identified. BI/SCRN MAMM (CAD)W/MARY BILAT IMPRESSION: There is no mammographic evidence of malignancy. OVERALL FINAL ASSESSMENT BI-RADS 1: NEGATIVE. RECOMMEND ANNUAL MAMMOGRAPHIC SCREENING. RECOMMENDATION: Routine annual follow-up in 1 Year A letter with findings and recommendations will be mailed to the patient. Reading Location: [id number]
== END | disposition home or self-care (01) ==
LOC: OPBI 13:43
PROVIDERS: PCP Family Medicine; Referring Provider Obstetrics & Gynecology; Visit Provider Obstetrics & Gynecology
DX: Z12.31 Encounter for screening mammogram for malignant neoplasm of breast (principal)
CPT/HCPCS: 77063; 77067

== ENCOUNTER 2024-12-08 20:11 | Emergency (ER) | payer MEDICARE, OTHER, SELFPAY ==
[2024-12-08 20:13] VITALS: BP 159/77; PULSE 95; RESP 16; TEMP 36.6; O2SAT 95; BMI 20.8
[2024-12-08 20:26] VITALS: O2SAT 96
--- NOTE | 2024-12-08 20:28 | ED.RN ---
DR DENTON ASSESSED PT. PT AMBULATED AND DENIES THE DESIRE FOR A CT AT THIS TIME. PT AWARE OF WHAT TO WATCH FOR TO RETURN TO THE ED.
--- NOTE | 2024-12-08 20:29 | ED.VIS.FALL ---
HPI HPI - Fall History of Present Illness Chief Complaint: Fall Informant: patient and spouse/S.O. Occured/Mechanism Occurred: Today and Hours Mechanism/Context: Yes same level fall and Yes trip Usually ambulates: Without assistance Pain/Injury Pain Location: head Current Severity: Mild Maximum Severity: Mild Associated Symptoms Associated Symptoms: Negative for Parasthesias, Weakness, Loss of function, Inability to ambulate, Loss of consciousness or Amnesia Narrative Narrative: 74-year-old female history of cardiomyopathy and hypertension. She was in her basement today around 330 was stepping backwards looking up to look at something she tripped over a cord fell backwards landed on her butt and then she thinks she hit her head on either a shelf or stool. Again this occurred about 5 hours ago. No LOC. She is not on any blood thinners. Denies any other injuries. No headache. No vomiting. No nausea. Prior similar symptoms: Yes Recent Illness/Hospitalization: No PFSH PFSH Medical History Osteoporosis MGUS (monoclonal gammopathy of unknown significance) Cardiomyopathy Restrictive lung disease Arthritis Hypertension Home Medications ?Medication ?Instructions ?Recorded ?Last Taken ?Type multivitamin,cs-zicq-gpxinfdr 1 tab PO DAILY 05/23/18 Unknown History (Complete Multivitamin tablet) denosumab 60 mg/mL subcutaneous 60 mg subcut [id number] #1 mL 07/26/22 Unknown Rx syringe calcium 250 mg 1 tab PO BID 07/25/23 Unknown History (citrate)-ergocalciferol (D2) 2.5 mcg (100 unit) tablet (Bryn-Citrate) diltiazem HCl 240 mg 240 mg PO QDAY 07/23/24 Unknown History capsule,extended release 24 hr Allergy/AdvReac Type Severity Reaction Status Date / Time aspirin Allergy Intermediate lips swell Verified 12/08/24 20:29 amoxicillin Allergy Rash Verified 12/08/24 20:29 diclofenac Allergy Shortness Verified 12/08/24 20:29 of breath iodine Allergy Anaphylaxis Verified 12/08/24 20:29 metoprolol Allergy PT UNSURE Verified 12/08/24 20:29 OF REACTION shellfish derived Allergy Anaphylaxis Verified 12/08/24 20:29 Family History Mother Cancer colon Father Cancer lung Surgical History History of bunionectomy S/P wrist surgery Social History Smoking Status: Never smoker alcohol intake: current details: social substance use type: does not use caffeine: Yes what type of physical activity do you participate in: none seatbelt use: always do you feel safe at home: Yes additional social history: Ray- retired Patient is retired ROS ROS ED ROS Narrative Denies recent illness. Constitutional Constitutional ED: Denies chills or fever(s) Eyes Eyes: Denies blurry vision ENT ENT ED: Denies ear pain Cardiovascular Cardiovascular: Denies chest pain Respiratory/Chest Respiratory/Chest: Denies cough or dyspnea Gastrointestinal Gastrointestinal: Denies abdominal pain, constipation, diarrhea, melena, nausea or vomiting Genitourinary Genitourinary ED: Denies dysuria or hematuria Musculoskeletal Musculoskeletal: Denies arthralgias, back pain, myalgias or neck pain Integumentary Denies abscess or Abrasions Neurologic Neurologic: Denies headache(s), paresthesias or weakness Psychiatric Psychiatric: Denies anxiety Endocrine Endocrinology: Denies polydipsia Hematologic/Lymphatic Hematologic/Lymphatic: Denies easy bleeding, easy bruising or lymphadenopathy Allergic/Immunologic Allergic/Immunologic ED: Denies mouth swelling, tongue swelling or urticaria EXAM Physical Exam Narrative Exam Narrative: Well-appearing 74-year-old female. Vital signs are stable afebrile. She does not look septic or toxic. She is sitting upright in bed. No distress. at bedside. H EENT exam pupils round reactive light. No facial trauma. No facial tenderness. Posterior scalp there is a small contusion smaller than a dime. No laceration or blood. Neck nontender normal range of motion. Trachea midline. Back nontender severe scoliosis with this thoracic spine distorted to the right of midline. Well-healed large prior back surgical incision. Back is nontender. No bruising. Lungs clear. Heart regular rhythm rate about 95. Chest wall ribs nontender. Abdomen soft nontender. Pelvic girdle intact. Hips nontender no shortening or rotation. 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 Normal range of motion upper extremities. No drift. Lower extremities are nontender. Normal dorsi plantarflexion. Neurologically she is awake alert. GCS of 15. Answering questions following commands. Patient stood up get out of bed walked across the room to the cabinet and back without any difficulty. Both she and her said that is her normal gait. No ataxia. Const Vital Signs: 12/08/24 20:13 12/08/24 20:26 Temperature 97.8 F Temperature Source Temporal Pulse Rate 95 Respiratory Rate 16 Respiratory Effort Normal Respiratory Depth Normal Respiratory Pattern Normal Blood Pressure 159/77 H Blood Pressure Mean 104 Pulse Ox 95 96 Oxygen Delivery Method Room Air Room Air Positive well nourished and well developed; Negative for obese, cachectic, contractures or unkempt General Appearance ED: well developed and NAD; Negative for unkempt, cachectic or contractures Nutritional Appearance: Negative for cachectic or obese HEENT Reports normocephalic trauma and contusion Contusion Size: Small posterior scalp contusion. Smaller than a dime. No bleeding or lace Eyes PERRL and EOMs intact bilaterally General Eye ED: Negative for pale conjunctiva or scleral icterus Neck full ROM, no lymphadenopathy and supple General: Negative for tenderness Chest Wall inspection of chest normal and palpation of chest normal Resp normal respiratory effort, no retractions and clear to auscultation bilaterally Cardio regular rate, regular rhythm, S1 normal heart sound, S2 normal heart sound and no murmurs Rate: Negative for bradycardia or tachycardic Rhythm: Negative for abnormal rhythm Bruits: Negative for other GI non-tender, non-distended and no masses Inspection: Negative for abdominal distention Auscultation: normoactive bowel sounds Palpation: soft; Negative for guarding or rebound tenderness present Back/Spine no CVA tenderness Back/Spine Narrative: Well-healed prior large back surgical scar from scoliosis. Her thoracic spine is distorted to the right of midline which is chronic. The back is nontender no bruising. General Back: Negative for CVA tenderness Cervical Spine: Negative for cervical spine tenderness Lumbar Spine / Lower Back: Negative for lumbar spinal tenderness Neuro oriented x3, CN's II-XII intact bilaterally, moves all extremities, no focal motor deficits and no sensory deficits noted Manteno Coma Scale: document GCS findings Spontaneous Obeys Commands Oriented 15 Sensorium / Orientation: alert, oriented to person, oriented to place and oriented to time; Negative for orientation impaired, confused, lethargic or stuporous Motor Exam: strength 5/5 throughout Psych mental status grossly normal and thought process normal Appearance: Negative for unkempt Skin Lesions: no lesions Rashes: no rashes MDM MDM MDM Narrative Medical decision making narrative: Follow-up 74-year-old female fell about 5 hours ago landed on her buttocks and hit the back of her head. No LOC. No headache. No thinners. No nausea or vomiting. She is currently in normal neurologic exam. I discussed with both her and her head injuries. I offered a CAT scan but told her she really did not meet criteria they are comfortable not having that done. And are comfortable being discharged home with head injury instructions. She knows to return if she develops a severe headache, vomiting or not acting right. Both her and her are comfortable with that plan. History & Record Review Discussion w/independent historian: Patient and Family Additional record(s) reviewed:: Prior inpatient record, Prior outpatient record, Prior ED visit and Prior labs Discharge Plan Triage Chief Complaint: Fall ED Provider: Micheal Valenzuela Dx/Rx/DC Orders Clinical Impression: Fall, Closed head injury Instructions: ED Head Injury (Adult) Prescriptions: No Action Complete Multivitamin tablet 1 tab PO DAILY denosumab 60 mg/mL syringe 60 mg SUBCUT [id number] Qty: 1 1RF Bryn-Citrate 250 mg-2.5 mcg (100 unit) tablet 1 tab PO BID diltiazem HCl 240 mg capsule,extended release 24hr 240 mg PO QDAY Primary Care Provider: Haroldo De Anda Referrals: Haroldo De Anda MD [Primary Care Provider] - As Needed Activity Restrictions/Additional Instructions: Return if severe headache, vomiting or not acting right. Tylenol for any pain. Ice to your scalp. Print Language: Danish Disposition Disposition: Home, Self Care
[2024-12-08 20:31] VITALS: BP 151/84; PULSE 95; PULSE 98; RESP 16; TEMP 36.3; O2SAT 95
--- OUTSIDE RECORDS SUMMARY | 2024-12-08 20:36 | XMS RPT_ITS | CCD ---
Author Organization [facility]iniSyn[facility] Care Team Providers Care Tufting Machine Fixer Name Role Phone Tariq Chew MD Unavailable [phone] Burt Lima Unavailable Unavailable Markus Rascon MD Primary Care Provider Tarah, Dr. Zarco Primary Care Provider Tarah, Dr. Zarco Referring Provider Dr. Gordy Null Attending Provider [phone] Dr. Markus Rascon Primary Care Provider Tarah, Dr. Zarco Referring Provider VICTOR MANUEL Bowie Attending Provider Dr. Tariq Chew Attending Provider [phone] Markus Rascon MD Primary Care Provider Dr. Markus Rascon Primary Care Provider Tarah, Dr. Zarco Referring Provider Markus Rascon MD Primary Care Provider Markus Rascon MD Primary Care Provider Danny Oneill DO Unavailable Dr. Markus Rascon Primary Care Provider Tarah, Dr. Zarco Referring Provider Dr. Gordy Null Attending Provider STACEY GIANG Attending Unavailable STACEY GIANG Admitting Unavailable MARKUS RASCON Primary Care Unavailable Gordy Null MD Unavailable Markus Rascon MD Primary Care Provider Markus Rascon MD Primary Care Provider [phone] Vik MENEZES, Leandro Parekh Unavailable Susan MENEZES, Pelon A Unavailable Haagen SOFTWARE ENGINEERING SPECIALIST.LEATHER STITCHER, Debbie Unavailable Suppan SOFTWARE ENGINEERING SPECIALIST.LEATHER STITCHER, Rylee A Unavailable Suppan SOFTWARE ENGINEERING SPECIALIST.LEATHER STITCHER, Rylee A Unavailable Constance MENEZES, Clary Sánchez Unavailable Suppan SOFTWARE ENGINEERING SPECIALIST.LEATHER STITCHER, Rylee A Unavailable LEANDRO CHERY Admitting Unavailable LEANDRO CHERY Attending Unavailable TARAH, MARKUS Primary Care Unavailable LEANDRO CHERY Attending Unavailable TARAH, MARKUS Primary Care Unavailable BJ ALLEN Attending Unavailable TARAH, MARKUS Primary Care Unavailable GAMALIEL, MARIE Attending Unavailable TARAH, MARKUS Primary Care Unavailable LEANDRO CHERY Attending Unavailable TARIQ CHEW Referring Unavailable TARAH, MARKUS Primary Care Unavailable MARIE ALSTON Attending Unavailable TARAH, MARKUS Primary Care Unavailable TARAH, MARKUS Primary Care Unavailable MARIE ALSTON Attending Unavailable TARAH, MARKUS Primary Care Unavailable GAMALIEL, MARIE Attending Unavailable TARAH, MARKUS Primary Care Unavailable LEANDRO CHERY Attending Unavailable TARAH, MARKUS Primary Care Unavailable TARAH, MARKUS J Primary Care Unavailable DARYL HAMLIN Referring Unavailable DARYL HAMLIN Attending Unavailable TARAH, MARKUS J Primary Care Unavailable SHANITA JACKSON Attending Unavailable TARAH, MARKUS J Primary Care Unavailable TARAH, MARKUS J Referring Unavailable TARAH, MARKUS J Primary Care Unavailable MANUEL, SHANITA Referring Unavailable TARAH, MARKUS J Primary Care Unavailable MANUEL, SHANITA Attending Unavailable TARAH, MARKUS J Primary Care Unavailable MANUEL, SHANITA Referring Unavailable TARAH, MARKUS J Primary Care Unavailable DARYL HAMLIN P Referring Unavailable ARIANE RAMIREZ Attending Unavailable TARAH, MARKUS J Primary Care Unavailable TARAH, MARKUS J Attending Unavailable TARAH, MARKUS J Primary Care Unavailable TARAH, MARKUS J Referring Unavailable TARAH, MARKUS J Primary Care Unavailable MANUEL, SHANITA Attending Unavailable TARAH, MARKUS J Primary Care Unavailable TARAH, MARKUS J Referring Unavailable TARAH, MARKUS J Primary Care Unavailable MANUEL, SHANITA Referring Unavailable TARAH, MARKUS J Primary Care Unavailable SHANITA JACKSON Referring Unavailable TARAH, MARKUS J Primary Care Unavailable TARAH, MARKUS J Referring Unavailable TARAH, MARKUS J Primary Care Unavailable TARAH, MARKUS J Referring Unavailable TAARH, MARKUS J Primary Care Unavailable TARAH, MARKUS J Referring Unavailable TARAH, MARKUS J Primary Care Unavailable TARAH, MARKUS J Attending Unavailable TARAH, MARKUS J Primary Care Unavailable TARAH, MARKUS J Referring Unavailable TARAH, MARKUS J Primary Care Unavailable DEBBIE CONSTANTINO Attending Unavailable TARAH, MARKUS J Primary Care Unavailable MARCOAGEN, DEBBIE Referring Unavailable ATRAH, MARKUS J Primary Care Unavailable PARVIN KAUR Attending Unavailable TARAH, MARKUS J Primary Care Unavailable HAAGEN, DEBBIE Referring Unavailable TARAH, MARKUS J Primary Care Unavailable TARAH, MARKUS J Attending Unavailable TARAH, MARKUS J Primary Care Unavailable DEBBIE CONSTANTINO Attending Unavailable TARAH, MARKUS J Primary Care Unavailable CLARY NOLASCO Attending Unavailable TARAH, MARKUS J Primary Care Unavailable TARAH, MARKUS J Primary Care Unavailable TARAH, MARKUS J Attending Unavailable TARAH, MARKUS J Primary Care Unavailable DANNY ONEILL Referring Unavailable MASCIDANNY Attending Unavailable TARAH, MARKUS J Primary Care Unavailable TARAH, MARKUS J Referring Unavailable DARYL HAMLIN Attending Unavailable TARAH, MARKUS J Primary Care Unavailable TARAH, MARKUS J Primary Care Unavailable DEBBIE CONSTANTINO Attending Unavailable [place], Markus Primary Care Unavailable Shanita Crowder Attending Unavailabl e [place], Markus Referring Unavailable [place], Markus Referring Unavailable Gordy Null Attending Unavailable Tarah, Markus Primary Care Unavailable Shaista Alfaro Attending Unavailable [place], Markus Primary Care Unavailable [place], Markus Primary Care Unavailable Otto Espinoza Attending Unavailable Tariq Chew Referring Unavailable Tariq Chew Attending Unavailable [place], Markus Primary Care Unavailable [place], Markus Referring Unavailable Gordy Null Attending Unavailable [place], Markus Primary Care Unavailable [place], Markus Referring Unavailable [place], Markus Primary Care Unavailable Gordy Null Attending Unavailable Allergies Allergy Classification Reported Allergen(s) Allergy Type Date of Onset Reaction(s) Facility Corticosteroids (3 sources) Hydrocortisone Drug Allergy 01-21-20 17 [facility] Iodine (and Iodine containting drugs) (4 sources) Iodine Drug Allergy 04-22-20 05 Shortness of breath [facility] Metoprolol (3 sources) Metoprolol Drug Allergy 11-10-19 19 Nausea And Vomiting, Other [facility] NSAIDs (4 sources) Diclofenac Drug Allergy 02-22-20 06 Shortness of breath [facility] Penicillins (antibiotic) (4 sources) Amoxicillin Drug Allergy 04-22-20 05 Rash [facility] Salicylic Acid (4 sources) Salicylic Acid Drug Allergy 04-22-20 05 Swelling [facility] Shellfish (3 sources) Shellfish Food Allergy 04-22-20 05 Anaphylaxis [facility] (20 sources) amoxicillin; Translations: [AMOXICILLIN] drug allergy 04-22-20 05 Rash [facility] Work Phone: (11 sources) aspirin drug allergy 01-21-20 17 lips swell [facility] Work Phone: (20 sources) diclofenac; Translations: [DICLOFENAC] drug allergy 02-22-20 06 Shortness of Breath [facility] Work Phone: (20 sources) iodine; Translations: [IODINE] drug allergy 04-22-20 05 Shortness of Breath [facility] Work Phone: (3 sources) MONISTAT [employer] [facility] [facility]CH drug allergy 01-21-20 17 [facility] Work Phone: (20 sources) Metoprolol Drug Allergy 11-10-19 19 Intolerance, Nausea And Vomiting, Other [facility] Work Phone: (20 sources) Salicylic Acid; Translations: [SALICYLATES] Drug Allergy 04-22-20 05 Swelling [facility] Work Phone: (20 sources) tioconazole; Translations: [TIOCONAZOLE] Drug Allergy 04-22-20 05 Other: See Comments, Intolerance [facility] Work Phone: (20 sources) shell fish [Other] Propensity to adverse reactions 04-22-20 05 Anaphylaxis [facility] Work Phone: (8 sources) Shellfish; Translations: [shellfish derived] Allergy to substance 09-24-19 22 Anaphylaxis [facility] (20 sources) Salicylate product Drug Allergy 04-22-20 05 Swelling [facility] Work Phone: (20 sources) Tioconazole Allergy to substance 04-22-20 05 Rash [facility] (20 sources) Hydrocortisone Drug Allergy 01-21-20 17 [facility] (20 sources) Shellfish Propensity to adverse reactions 04-22-20 05 Anaphylaxis [facility] (20 sources) Shellfish; Translations: [SHELLFISH CONTAINING PRODUCTS] Drug Allergy 04-22-20 05 Anaphylaxis [facility] (1 source) Amoxicillin Drug Allergy 07-23-19 [facility] (1 source) Aspirin Drug Allergy 07-23-19 [facility] (1 source) Metoprolol Drug Allergy 07-23-19 [facility] Medications Current Medications Medication Drug Class(es) [...] oral tablet (1 source) Opioid Agonist Start: 05-15-2023 End: 05-15-2023 take 1 tablet by mouth once, then take 1 tablet by mouth every hour oxyCODONE-acetamino phen (PERCOCET) 5-325 mg tablet Indications: Monoclonal gammopathy Take 1 tablet by mouth one time only for 1 dose. about 1 hour prior to bone marrow biopsy. 1 tablet 0 05/15/2023 05/15/2023 Active Comment on above: Take 1 tablet by whitley one time only for 1 dose. about 1 hour prior to bone marrow biopsy. [id number] 200 actuat albuterol 0.09 mg/actuat metered dose inhaler (20 sources) beta2-Adrenergic Agonist Start: 03-11-2022 albuterol Active March 11, 2022 12:00am Start: 03-10-2020 End: 09-23-2021 take 1 puff(s) by inhalation every four hours as needed Albuterol Sulfate Discontinued 1 - 2 PUFF INHALATION EVERY 4 HOURS NEEDED March 10, 2020 12:00am September 23, 2021 10:21am Start: 05-15-2019 End: 04-08-2024 take 2 puff(s) by inhalation every four hours as needed for wheezing albuterol HFA (VENTOLIN HFA) 90 mcg/actuation inhaler Indications: Mild persistent asthma without complication (HCC) Inhale 2 Puffs as instructed every 4 hours as needed for wheezing/shortness of breath. 1 Each 3 10/11/2023 Active Comment on above: Inhale 2 Puffs as in structed every 4 hours as needed for wheezing/shortness of breath. Blood Pressure Monitor (3 sources) Start: 11-22-2021 End: 11-23-2021 Blood Pressure Monitor Indications: Essential hypertension Check [...] prior to checking blood pressure. Goal 130/80 calcium carbonate 1250 mg chewable tablet (8 sources) Start: 05-23-2018 take 1 tablet by mouth twice daily Calcium Carbonate (Calci-Chew) 500 mg calcium (1,250 mg) tablet,chewable Active 500 MG PO TWICE A DAY May 23, 2018 1:00am Calcium Citrate (20 sources) take 2 capsules [...] a day. CALCIUM-ERGOCALCIFEROL PO (20 sources) Start: 07-25-19 CALCIUM-ERGOCALCIFEROL PO Take by mouth. 07/25/2023 Active cholecalciferol 0.05 mg oral capsule (11 sources) Vitamin D Start: 05-23-20 take 2000 [IU] by mouth once daily Cholecalciferol (Vitamin D3) Active 2000 UNIT PO DAILY May 23, 2018 1:00am Start: 01-20-2017 take 1 tablet by whitley th once daily VITAMIN D3 1000 UNIT TABS One tablet by mouth daily CHOLECALCIFEROL [id number] Burt Lima clindamycin 0.01 mg/mg topical gel (20 sources) Lincosamide Antibacterial Start: 09-16-2022 End: 08-06-2024 clindamycin (CLEOCIN T) 1 % gel Indications: Dermatitis Apply to affected area once daily. 60 g 2 09/16/2022 Active Comment on above: Apply to affected ar ea once daily. 1 ml denosumab 60 mg/ml prefilled syringe (20 sources) RANK Ligand Inhibitor Start: 07-26-2022 Denosuma b Active 60 MG SC every 6 months July 26, 2022 2:53pm Start: 03-11-2022 End: 07-26-2022 Denosumab Discontinued MG SC March 11, 2022 12:00am July 26, 2022 2:54pm Start: 08-05-2021 denosumab (PRO ROBERT) 60 mg/mL Inject subcutaneously once every 6 months. 08/05/2021 Active Start: 08-05-2021 End: 09-23-2021 Denosumab Discontinued 60 MG SC every 6 months August 05, 2021 1:00am September 23, 2021 10:21am inject 60 mg by subc utaneous injection once denosumab (Prolia) 60 MG/ML solution prefilled syringe Inject 60 mg under the skin Once. Active Comment on above: Inject subcutaneousl y once every 6 months. 24 hr dilTIAZem hydrochloride 240 mg extended release oral capsule (20 sources) Calcium Channel Tia Start: 06-03-20 End: 12-03-19 take 1 capsule by mouth once daily dilTIAZem CD (CARDIZEM CD, CARTIA XT) 240 mg 24 hr capsule Take 1 capsule by mouth once daily. 90 capsule 1 12/02/2024 Active Start: 05-01-2024 take 1 capsule by mo uth once daily dilTIAZem CD (CARDIZEM CD) 240 mg 24 hr capsule Take 1 capsule by mouth once daily. 30 capsule 1 05/01/2024 Active Start: 10-23-2023 dilTIAZem CD ( Cardizem CD) 180 MG 24 hr capsule Take 240 mg by mouth daily. 10/23/2023 Active Start: 04-24-2023 End: 05-01-2024 take 1 capsule by mouth once daily dilTIAZem CD (CARDIZEM CD, CARTIA XT) 180 mg 24 hr capsule Indications: Essential hypertension take 1 capsule by mouth once daily 90 capsule 5 03/13/2024 05/01/2024 Discontinued Start: 04-18-2022 take 1 capsule by mo uth once daily dilTIAZem CD (CARDIZEM CD) 180 mg 24 hr capsule Indications: Essential hypertension Take 1 capsule by mouth once daily. 30 capsule 5 10/18/2022 Active Start: 02-28-2022 take 1 capsule by [...] daily. 30 capsule 5 07/23/2020 01/15/2021 Discontinued Start: 11-12-2019 take 1 capsule by mo ut once daily, then take 1 capsule by mouth every twenty-four hours Diltiazem Hcl (Cardizem Cd) 120 mg capsule,extended release 24hr Active 120 MG PO DAILY November 12, 2019 12:00am Comment on above: Take 1 capsule by mo [facility] once daily. enteric contrast (will be provided with radiology [...] Contrast as designated per enteric contrast guidelines 60 actuat fluticasone propionate 0.1 mg/actuat / salmeterol 0.05 mg/actuat dry powder inhaler (20 sources) Corticosteroid, beta2-Adrenergic Agonist Start: 11-11-2024 take 1 puff(s) by mouth twice daily fluticasone-salmete rol (WIXELA INHUB) 100-50 mcg/dose inhaler Indications: Asthma-COPD overlap syndrome (HCC) inhale 1 puff by mouth and INTO THE LUNGS twice a day 1 each 5 11/11/2024 Active Start: 09-25-2024 End: 11-11-2024 take 1 puff(s) by inhalation twice daily fluticasone-salmeterol (WIXELA INHUB) 100-50 mcg/dose inhaler Indications: Asthma-COPD overlap syndrome (HCC) Inhale 1 puff as instructed two times a day. 60 each 5 09/25/2024 11/11/2024 Discontinued Start: 09-25-2024 take 1 puff(s) by in halation twice daily fluticasone-salmeterol (WIXELA INHUB) 100-50 mcg/dose inhaler Indications: Asthma-COPD overlap syndrome (HCC) Inhale 1 puff as instructed two times a day. 60 each 5 09/25/2024 Active Start: 05-24-2024 End: 09-25-2024 take 1 puff(s) by mouth twice daily WIXELA INHUB 250-50 mcg/dose inhaler inhale 1 puff by mouth twice a day 180 Each 3 05/24/2024 09/25/2024 Discontinued Start: 03-27-2024 End: 05-24-2024 take 1 puff(s) by inhalation twice daily fluticasone-salmeterol (WIXELA INHUB) 250-50 mcg/dose inhaler Inhale 1 Puff as instructed two times a day. 1 Each 5 03/27/2024 05/24/2024 Discontinued Start: 03-27-2024 take 1 puff(s) by in halation twice daily fluticasone-salmeterol (WIXELA INHUB) 250-50 mcg/dose inhaler Inhale 1 Puff as instructed two times a day. 1 Each 5 03/27/2024 Active Start: 08-29-2023 End: 08-06-2024 take 1 puff(s) by inhalation in the morning Fluticasone-Salmeterol 250-50 MCG/ACT aerosol powder Inhale 1 puff in the morning and 1 puff in the evening. 08/29/2023 08/06/2024 Discontinued Start: 08-29-2023 End: 03-27-2024 take 1 puff(s) by inhalation twice daily fluticasone-salmeterol (WIXELA INHUB) 250-50 mcg/dose inhaler Inhale 1 Puff as instructed two times a day. 1 Each 5 08/29/2023 03/27/2024 Discontinued Start: 08-29-2023 take 1 puff(s) by in halation twice daily fluticasone-salmeterol (WIXELA INHUB) 250-50 mcg/dose inhaler Inhale 1 Puff as instructed two times a day. 1 Each 5 08/29/2023 Active Comment on above: Inhale 1 Puff as ins tructed two times a day. Multiple Vitamins-Minerals (Centrum Ultra Womens) tablet (20 sources) Multiple Vitamins-Minerals (Centrum Ultra Womens) tablet Take by mouth daily. Active Multivitamin,Tx-Iro n-Minerals (Complete Multivitamin) tablet (8 sources) Start: 05-23-2018 take 1 tablet by mouth once daily Multivitamin,Tx-Ir on-Minerals (Complete Multivitamin) tablet Active 1 TABLET PO DAILY May 23, 2018 2:55pm Start: 05-23-2018 take 1 tablet by whitley th once daily Multivitamin,Lz-Thuf-Ilakytnw (Complete Multivitamin) tablet Active 1 TABLET PO DAILY May 23, 2018 1:00am perflutren lipid microsphere s 1.3 mL in NaCl (PF) 0.9% 10 mL injection (DEFINITY) (20 sources) Start: 10-12-2021 End: 01-11-2023 perflutren lipid microsphere s 1.3 mL in NaCl (PF) 0.9% 10 mL injection (DEFINITY) Completed/Discontinued Medications Medication Drug Class(es) Dates Sig (Normalized) Sig (Original) acetaminophen 325 mg / HYDROcodone bitartrate 5 mg oral tablet (8 sources) Opioid Agonist Start: 03-10-2020 End: 03-12-2020 take 1 tablet by mouth every four hours as needed Hydrocodone-Acetami nophen Discontinued 1 TABLET PO EVERY 4 HOURS NEEDED 03 06March 10, 2020 March 12, 2020 12:02am alendronic acid 70 mg oral tablet (11 sources) Bisphosphonate Start: 05-23-2018 End: 11-12-2019 take 1 tablet by mouth every week Alendronate (Fosamax) 70 mg tablet Discontinued 70 MG PO EVERY WEEK May 23, 2018 1:00am November 12, 2019 12:43pm Start: 01-20-2017 FOSAMAX 70 MG TABS 1 per week ALENDRONATE SODIUM [id number] Burt Lima ALPRAZolam 0.25 mg disintegrating oral tablet (2 sources) Benzodiazepine Start: 12-19-2023 End: 12-19-2023 take 0.25 mg by mouth once as needed for anxiety 0.25 mg, Oral, Once PRN, anxiety, Starting on Mon12/19/23 at 1051, For 1 dose, Preprocedure, Please do not administer prior to obtaining consent and/or history and physical. Benzocaine (1 source) Standardized Chemical Allergen Start: 03-21-2024 End: 03-21-2024 1 [place], TOPICAL, DIRECTED, Starting on Mon03/21/24 at 1200, Until Mon03/21/24 at 1559, Dosing as directed for intraprocedural use only - Pharmaceutical Waste: Aerosol -, Intraprocedure 60 actuat budesonide 0.16 mg/actuat / formoterol fumarate 0.0045 mg/actuat metered dose inhaler (20 sources) Corticosteroid, beta2-Adrenergic Agonist Start: 01-10-2023 End: 11-28-2023 take 2 puff(s) by inhalation in the morning budesonide-formoter ol (Symbicort) 160-4.5 MCG/ACT inhaler Inhale 2 puffs [...] 10.2 g 5 06/15/2022 12/12/2022 Active Start: 03-11-2022 take 1 puff(s) by in halation every twelve hours Budesonide-Formoterol (Symbicort) 160-4.5 mcg/actuation Hfa Aerosol Inhaler Active 2 PUFF INHALATION Q12H March 11, 2022 12:00am Start: 11-22-2021 End: 05-21-2022 take 2 puff(s) [...] daily. 1 Inhaler 3 11/17/2020 03/30/2021 Discontinued Start: 03-10-2020 take 1 puff(s) by in halation twice daily Budesonide-Formoterol Active 2 PUFF INHALATION TWICE A DAY March 10, 2020 1:55pm Start: 03-10-2020 End: 09-23-2021 take 1 puff(s) by inhalation twice daily Budesonide-Formoterol Discontinued 2 PUFF INHALATION TWICE A DAY March 10, 2020 12:00am September 23, 2021 10:21am Comment on above: Inhale 2 Puffs as in structed twice daily. calcium (3 sources) Phosphate Binder, Calcium Start: 01-21-20 take 1 tablet by mouth once daily CALCIUM 500 + D TABS One tablet by mouth daily CALCIUM CARBONATE-VITAMIN D TABS [id number] Burt Lima calcium chloride 0.0014 meq/ml / potassium chloride 0.004 meq/ml / sodium chloride 0.103 meq/ml / sodium lactate 0.028 meq/ml injectable solution (5 sources) Start: 03-21-20 End: 03-21-20 take 30 mL intravenously every hour 30 mL/hr, INTRAVENOUS, CONTINUOUS, Starting on Juani 03/21/24 at 1100, Until Juani 17/24 at 1208, Preprocedure Start: 12-19-2023 End: 12-19-2023 take 125 mL intravenously every hour 125 mL/hr, IntraVENous, Continuous, Starting on Mon12/19/23 at 1630, Recovery (only) calcium, elemental, tab (20 sources) Start: 09-18-2013 End: 11-17-2022 take 1 tablet by mouth twice daily calcium, elemental, tab Take 1 tablet by mouth twice daily. 0 09/18/2013 11/17/2022 Discontinued Start: 09-18-2013 take 1 tablet by whitley th twice daily calcium, elemental, tab Take 1 tablet by mouth twice daily. 0 09/18/2013 Active Comment on above: Take 1 tablet by whitley th twice daily. diphenhydrAMINE (3 sources) Histamine-1 Receptor Antagonist Start: 03-21-2024 End: 03-21-2024 12.5-50 mg, INTRAVENOUS, DIRECTED, Starting on Mon03/21/24 at 1200, Until Mon03/21/24 at 1559, DOSING DIRECTED BY PHYSICIAN FOR PROCEDURAL SEDATION ONLY, Intraprocedure Start: 12-19-2023 End: 12-19-2023 12.5 mg, IntraVENous, Once P RN, itching, Starting on Mon12/19/23 at 1626, For 1 dose, Recovery (only) docusate sodium 100 mg oral capsule (20 sources) Start: 03-12-2024 End: 10-04-2024 take 1 capsule by mouth every twelve hours as needed docusate sodium (COLACE) 100 mg capsule Take 1 capsule by mouth two times a day as needed for constipation. 60 capsule 2 03/12/2024 10/04/2024 Discontinued Start: 12-19-2023 End: 01-18-2024 take 1 capsule by mouth twice daily docusate sodium (Colace) 100 MG capsule Take 1 capsule (100 mg) by mouth 2 times daily. 60 capsule 12/19/2023 01/18/2024 Active 1 ml fentaNYL 0.05 mg/ml injection (1 source) Opioid Agonist Start: 03-21-2024 End: 03-21-2024 25-100 mcg, INTRAVENOUS, DIRECTED, Starting on Mon03/21/24 at 1200, Until Mon03/21/24 at 1559, DOSING DIRECTED BY PHYSICIAN FOR PROCEDURAL SEDATION ONLY, Intraprocedure ferrous sulfate 325 mg oral tablet (20 sources) Start: 02-19-2024 End: 02-18-2025 take 1 tablet by mouth twice daily at mealtime ferrous sulfate 325 mg (65 mg iron) tablet Indications: Iron deficiency anemia, unspecified iron deficiency anemia type Take 1 tablet by mouth two times a day with meals. 60 tablet 11 02/19/2024 06/28/2024 Discontinued folic acid 20 mg oral capsule (11 sources) Start: 05-23-2018 End: 11-12-2019 take 1 capsule by mouth once daily folic acid 20 mg capsule Discontinued 20 MG PO DAILY May 23, 2018 1:00am November 12, 2019 12:43pm Start: 01-20-2017 take 2 tablets by mo ut once daily FOLIC ACID 1 MG TABS Two tablets by mouth daily FOLIC ACID [id number] Burt Lima 60 actuat formoterol fumarate 0.005 mg/actuat / mometasone furoate 0.1 mg/actuat metered dose inhaler (20 sources) Corticosteroid, beta2-Adrenergic Agonist Start: 04-24-2023 End: 11-28-2023 take 2 puff(s) by inhalation in the morning mometasone-formoterol (Dulera 100) 100-5 MCG/ACT inhaler Inhale [...] oral tablet (19 sources) Loop Diuretic Start: End: take 1 tablet by mouth once daily furosemide (LASIX) 20 mg tablet Take 1 tablet by mouth once daily. 3 tablet 0 10/13/2021 02/17/2022 Discontinued Comment on above: Take 1 tablet by whitley th once daily. hydroCHLOROthiazide 25 mg / triamterene 37.5 mg oral capsule (11 sources) Potassium-sparing Diuretic, Thiazide Diuretic Start: 018 End: take 1 capsule by mouth once daily Triamterene-Hydroch lorothiazid Discontinued 1 CAP PO DAILY May 23, 2018 1:00am November 12, 2019 12:43pm Start: 01-20-2017 take 1 tablet by whitley th once daily DYAZIDE 37.5-25 MG CAPS One tablet by mouth daily TRIAMTERENE-HCTZ [id number] Burt Lima 1 ml HYDROmorphone hydrochloride 1 mg/ml cartridge (2 sources) Opioid Agonist Start: 12-19-2023 End: 12-19-2023 0.25 mg, IntraVENous, Every 5 min PRN, [...] (Normodyne,Trandate) injection 5 mg (2 sources) Start: 12-19-2023 End: 12-19-2023 labetalol (Normodyne,Trandate) injection 5 mg 1 ml LORazepam 2 mg/ml injection (3 sources) Benzodiazepine Start: 12-19-2023 End: 12-19-2023 0.5 mg, IntraVENous, Once PRN, for anxiety [...] on above: Take 1 tablet by whitley one time only for 1 dose. about 1 hour prior to bone marrow biopsy. melatonin 3 mg oral tablet (20 sources) End: 10-05-19 take 1 tablet by mouth once daily at bedtime as needed melatonin 3 mg tablet Take 3 mg by mouth as needed. qhs 10/04/2024 Discontinued Comment on above: Take 3 mg by mouth. qhs 5 ml midazolam 1 mg/ml injection (1 source) Benzodiazepine Start: 03-21-20 End: 03-21-20 1-5 mg, INTRAVENOUS, DIRECTED, Starting on Juani 03/21/24 at 1200, Until Juani 03/21/24 at 1559, DOSING DIRECTED BY PHYSICIAN FOR PROCEDURAL SEDATION ONLY, Intraprocedure MULTIPLE VITAMIN (3 sources) Start: 01-21-20 take 1 tablet by mouth once daily MULTIPLE VITAMIN TABS One tablet by mouth daily MULTIPLE VITAMIN [id number] Burt Lima MULTIVITAMIN ORAL (20 sources) End: 06-24-19 take 1 tablet by mouth once daily MULTIVITAMIN ORAL Take 1 tablet by mouth once daily. 06/24/2024 Discontinued (Course of therapy completed) take 1 tablet by mouth once david y MULTIVITAMIN ORAL Take 1 tablet by mouth once daily. Active take 1 tablet by mouth once david y MULTIVITAMIN ORAL Take 1 tablet by mouth once daily. 0 Active Comment on above: Take 1 tablet by [facility] once daily. nitrofurantoin, macrocrystals 25 mg / nitrofurantoin, monohydrate 75 mg oral capsule (4 sources) Nitrofuran Antibacterial End: 03-18-20 take 1 capsule by mouth twice daily nitrofurantoin monohydrate and macrocrystal (MACROBID) 100 mg capsule Take 100 mg by mouth twice daily. 0 03/18/2022 Discontinued Comment on above: Take 100 mg by mouth twice daily. 2 ml ondansetron 2 mg/ml injection (2 sources) Serotonin-3 Receptor Antagonist Start: 12-19-19 End: 12-19-19 4 mg, IntraVENous, Once PRN, nausea, Starting on Mon12/19/23 at 1626, For 1 dose, Recovery (only), Initial antiemetic therapy. oxyCODONE hydrochloride 5 mg oral tablet (4 sources) Opioid Agonist Start: 12-19-19 End: 12-24-19 5 mg, Oral, PRN, moderate pain (4-6), Starting on Mon12/19/23 at 1626, For 1 dose, Recovery (only), PHASE II Pediatric Multiple Vitamins (pediatric multivitamin) tablet chewable split tablet (6 sources) End: 11-28-19 take 1 tablet by mouth in the [...] Comment on above: Take 2 tablets by [facility] once daily for 5 days. regadenoson [...] TABS One tablet by mouth daily CYANOCOBALAMIN [id number] B[place] Problems Active Problems Problem Classification [...] Translations: [Stable angina pectoris (HCC)] 09-04-2023 Chronic Diabetes mellitus without complication (1 source) Hyperglycemia; [...] insufficiency] Onset: 9 Resolved: 3 07-21-2016 Chronic Menopausal disorders (20 sources) Atrophic vaginitis; Translations: [Postmenopausal atrophic vaginitis] Onset: 5 01-09-2015 Chronic Miscellaneous mental health disorders (20 sources) Psychophysiologic insomnia; Translations: [Psychophysiologic insomnia] Onset: 2 10-26-2011 Chronic Neoplasms of unspecified nature or uncertain behavior (20 sources) Monoclonal gammopathy (clinical); Translations: [Monoclonal gammopathy] Onset: 7 08-09-2018 Chronic Nutritional deficiencies (5 sources) Vitamin D deficiency; Translations: [Vitamin D deficiency, unspecified] Onset: 5 Chronic Occlusion or stenosis of precerebral arteries [...] other than malignant neoplasm] 02-06-2024 Episodic Other bone disease and musculoskeletal deformities (20 sources) Idiopathic kyphoscoliosis; Translations: [Other idiopathic scoliosis, site unspecified] Onset: 1 03-18-2021 Chronic Other connective tissue disease (1 source) Tendonitis of left shoulder; Translations: [Other enthesopathies, not elsewhere classified] Episodic Other connective tissue disease (3 sources) Trochanteric bursitis, right hip; Translations: [Enthesopathy of hip region] Episodic Other connective tissue disease (1 source) Swelling of lower limb; Translations: [Other specified soft tissue disorders] 11-24-2020 Episodic Other diseases of bladder and urethra (2 sources) Overactive bladder; Translations: [Overactive bladder] 02-06-2024 Chronic Other diseases of bladder and urethra (2 sources) Overactive bladder; Translations: [Overactive bladder] Onset: 5 Chronic Other diseases of kidney and ureters (1 source) Cyst of kidney; Translations: [Cyst of kidney, acquired] Episodic Other female genital disorders (1 source) Vaginal irritation; Translations: [Other specified noninflammatory disorders of vagina] 04-16-2024 Episodic Other gastrointestinal disorders (2 sources) Pelvic mass; Translations: [Intra-abdominal and pelvic swelling, mass and lump, unspecified site] 11-19-2023 Episodic Other gastrointestinal disorders (1 source) Constipation; Translations: [Other constipation] 10-04-2024 Episodic Other gastrointestinal disorders (2 sources) Dark stools; Translations: [Other fecal abnormalities] 10-04-2024 Episodic Other gastrointestinal disorders (1 source) Other constipation; Translations: [Other constipation] Onset: 5 Episodic Other gastrointestinal disorders (2 sources) Other fecal abnormalities; Translations: [Dark stools] Onset: 4 Episodic Other injuries and conditions due to [...] disorders (1 source) Hypercalcemia; Translations: [Hypercalcemia] Onset: Chronic Other screening for suspected conditions (not mental disorders or infectious disease) (20 sources) Radiology result abnormal; Translations: [Abnormal findings on diagnostic imaging of other specified body structures] Onset: 4 11-19-2023 Chronic Renetta-; endo-; and myocarditis; cardiomyopathy (except that caused by tuberculosis or sexually transmitted disease) (20 sources) Cardiomyopathy; Translations: [Other cardiomyopathies] Onset: 9 01-28-2019 Chronic Prolapse of female genital organs (20 sources) Incomplete uterovaginal prolapse; Translations: [Incomplete uterovaginal prolapse] Onset: 5 Resolved: 9 01-24-2017 Chronic Residual codes; unclassified (3 sources) Hypoxia; Translations: [Idiopathic sleep related nonobstructive alveolar hypoventilation] 05-07-2024 Chronic Residual codes; unclassified (1 source) Idiopathic sleep related nonobstructive alveolar hypoventilation; Translations: [Nocturnal hypoxia] Onset: 5 Chronic Residual codes; unclassified (1 source) Swelling; Translations: [Edema, unspecified] Episodic Residual codes; unclassified (1 source) Edema; Translations: [Edema, unspecified] Episodic Residual codes; unclassified (1 source) Mild memory disturbance ; Translations: [Other amnesia] Episodic Residual codes; unclassified (1 source) Forgetful; Translations: [Other general symptoms and signs] Episodic Residual codes; unclassified (1 source) Postoperative state; Translations: [Other specified postprocedural states] 01-01-2024 Episodic Thyroid disorders (20 sources) Multinodular goiter; Translations: [Nontoxic multinodular goiter] Onset: 2 10-30-2020 Chronic Unclassified (2 sources) Gynecologic examination ; Translations: [Encounter for gynecological examination (general) (routine) with abnormal findings] Onset: 7 01-24-2017 Unclassified (1 source) No current problems or disability 01-20-2017 Unclassified (2 sources) Other; Translations: [Other] Onset: 4 Unclassified (1 source) Asthma-COPD overlap syndrome (HCC); Translations: [Asthma-COPD overlap syndrome (HCC)] Onset: 5 Unclassified (1 source) Other disorders of glucose transport (HCC); 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)] Onset: 4 Past or Other Problems Problem Classification Problem Date Documented Da te Episodic/Chronic Abdominal pain (1 source) Unspecified abdominal pain; Translations: [Unspecified abdominal pain] Onset: 01-04-2024 Episodic Conditions associated with dizziness or vertigo (20 sources) Dizziness; Translations: [Dizziness and giddiness] Onset: 11-17-2022 10-18-2022 Episodic Deficiency and other anemia (20 sources) Anemia; Translations: [Anemia, unspecified] Onset: 04-03-2024 02-14-2024 Episodic Deficiency and other anemia (20 sources) Iron deficiency anemia; Translations: [Iron deficiency anemia, unspecified] Onset: 03-21-2024 03-12-2024 Episodic Deficiency and other anemia (1 source) Anemia, unspecified; Translations: [Anemia, unspecified type] Onset: 04-03-2024 Episodic Deficiency and other anemia (1 source) Iron deficiency anemia, unspecified; Translations: [Iron deficiency anemia, unspecified iron deficiency anemia type] Onset: 03-21-2024 Episodic Fracture of upper limb (20 sources) Closed fracture of lower end of radius AND ulna; Translations: [Unspecified fracture of the lower end of right radius, initial encounter for closed fracture] Onset: 03-18-2022 03-18-2022 Episodic Genitourinary symptoms and ill-defined conditions (11 sources) Microscopic hematuria; Translations: [Other microscopic hematuria] Onset: 11-28-2023 Episodic Heart valve disorders (20 sources) Heart murmur; Translations: [Cardiac murmur, unspecified] Onset: 10-05-2020 Resolved: 09-16-2021 10-05-2020 Episodic Hemorrhoids (3 sources) Anal skin tag; Translations: [Residual hemorrhoidal skin tags] Onset: 02-06-2024 02-06-2024 Episodic Nonspecific chest pain (20 sources) Precordial pain; Translations: [Precordial pain] Onset: 01-28-2019 Resolved: 09-16-2022 01-28-2019 Episodic Osteoarthritis (20 sources) Degenerative joint disease involving multiple joints; Translations: [Polyosteoarthritis, unspecified] Onset: 11-18-2005 Resolved: 07-03-2015 07-03-2015 Chronic Other aftercare (2 sources) Encounter for follow-up examination after completed treatment for conditions other than malignant neoplasm; Translations: [Encounter for follow-up examination after completed treatment for conditions other than malignant neoplasm] Onset: 02-06-2024 Episodic Other bone disease and musculoskeletal deformities [...] Onset: 11-28-2023 11-30-2023 Episodic Other gastrointestinal disorders (20 sources) Occult blood in stools; Translations: [Other fecal abnormalities] Onset: 03-21-2024 02-19-2024 Episodic Other gastrointestinal disorders (1 source) Intra-abdominal [...] acute postprocedural pain] Onset: 12-19-2023 Episodic Other non-traumatic joint disorders (3 sources) Pain in right shoulder; Translations: [Pain in joint, shoulder region] Onset: 05-01-2024 05-01-2024 Episodic Other non-traumatic joint disorders (1 source) Pain in right ankle and joints of right foot; Translations: [Pain in right ankle and joints of right foot] Onset: 04-17-2024 Episodic Other nutritional; endocrine; and metabolic disorders (20 sources) Weight loss; Translations: [Abnormal weight loss] Onset: 03-21-2024 Episodic Other nutritional; endocrine; and metabolic disorders (9 sources) Weight decreased; Translations: [Abnormal weight loss] Onset: 03-21-2024 03-21-2024 Episodic Other nutritional; endocrine; and metabolic disorders (1 source) Abnormal weight loss; Translations: [Weight loss] Onset: 03-21-2024 Episodic Other screening for suspected conditions (not mental disorders or infectious disease) (20 sources) Patient encounter status; Translations: [Encounter for other screening for malignant neoplasm of breast] Onset: 09-24-2020 Resolved: 09-24-2020 Episodic Other upper respiratory disease (20 sources) Bleeding from nose; Translations: [Epistaxis] Onset: 11-17-2022 Resolved: 06-13-2023 10-18-2022 Episodic Pulmonary heart disease (20 sources) Pulmonary embolism with pulmonary infarction; Translations: [Other pulmonary embolism without acute cor pulmonale] Onset: 07-25-2012 Resolved: 07-21-2016 07-21-2016 Episodic Residual codes; unclassified (20 sources) Family history of cancer of colon; Translations: [Family history of malignant neoplasm of digestive organs] Onset: 07-06-2011 05-31-2021 Episodic Residual codes; unclassified (2 sources) Other specified postprocedural states; Translations: [Other specified postprocedural states] Onset: 01-03-2024 Episodic Residual codes; unclassified (1 source) Family history of malignant neoplasm of digestive organs; Translations: [Family history of colon cancer] Onset: 05-31-2021 Episodic Screening and history of mental health and substance abuse codes (2 sources) Encounter for screening examination for other mental health and behavioral disorders; Translations: [Encounter for screening for depression] Onset: 02-12-2024 Episodic Spondylosis; intervertebral disc disorders; other back problems (20 sources) Neck pain; Translations: [Cervicalgia] Onset: 08-28-2007 Resolved: 08-09-2018 05-31-2021 Episodic Results Test Name Value Interpretation Reference Range Facility SCRN MAMM (CAD)W/MARY BILATo n 12-04-2024 SCRN MAMM (CAD)W/MARY BILAT [facility] Imaging Services [address] [place] [address] SCRN MAMM (CAD)W/MARY BILAT MR#: [id number] Acct: [id number] Name: VANDANA MITCHELL Rep #: [id number] : 1950 F 74 From: Rossy Levi MD PCP: Dr. Markus Rascon MD Status: [facility] CLI Study: SCRN MAMM (CAD)W/MARY BILAT Date of Exam: 07/30 Exam# [id number] Ordering Dr: Tariq Chew EXAM: SCRN MAMM (CAD)W/MARY BILAT DATE: 12/04/2024 CLINICAL HISTORY: F, Age 74 y/o , SCREENING MAMMOGRAM FOR BREAST CANCER TECHNIQUE: SCRN MAMM (CAD)W/MARY BILAT COMPARISON: Prior exam(s) dated 12/04/2023, 12/02/2022, 11/22/2021. FINDINGS: TISSUE DENSITY: The breasts are extremely dense, which lowers the sensitivity of mammography. The mammogram demonstrates that the patient has dense breasts. Supplemental screening with whole breast ultrasound or MRI may be considered for further evaluation. Bilateral Breast Mammographic Findings: No significant masses, calcifications or other abnormalities are identified. BI/SCRN MAMM (CAD)W/MARY BILAT IMPRESSION: There is no mammographic evidence of malignancy. OVERALL FINAL ASSESSMENT BI-RADS 1: NEGATIVE. RECOMMEND ANNUAL MAMMOGRAPHIC SCREENING. RECOMMENDATION: Routine annual follow-up in 1 Year A letter with findings and recommendations will be mailed to the patient. Reading Location: [id number] CC: Dr. Tariq Chew MD; Dr. Markus Rascon MD Extracorporeal Technician: Signed Normal [facility] 11-06-2024 [facility] Normal [facility] Hemoccult Stl Ql IAon 2024 Lower GI hemoglobin IA Ql (Stl) Negative Normal Negative [facility] Comment on above: Order Comment: Speci men Type: STOOL SPECIMENOrdering Facility: [facility] Address: [address] [place] [address] Performed By: #### 2 9771-3 ####[facility] LABIA [id number] [place] [address] [place] [facility] C[facility] Normal [facility] 10-08-2024 [facility] Normal [facility] 25(OH)D3 SerPl-mCncon 2024 25-hydroxyvitamin D3 [Mass/Vol] 58.4 ng/mL Normal 31.0-80.0 [facility] Comment on above: Order Comment: Speci men Type: BLOOD SPECIMENOrdering Facility: [facility] Address: [address] [place] [address] Result Comment: Clas sification of 25 [place] Vitamin D status:Deficiency/Insufficiency: < or = 30 ng/ml.Sufficiency/Optimal Levels: 31-80 ng/mLToxicity: > 100 ng/mL.Test performed by chemiluminescent immunoassay. Performed By: #### 1 989-3 ####[facility] LABIA [id number] [place] [address] [place] Basic metabolic 2000 panelon 10-07-2024 Anion gap [Moles/Vol] 8 mmol/L Normal 8-15 [facility] Comment on above: Order Comment: Speci men Type: BLOOD SPECIMENOrdering Facility: [facility] Address: [address] [place] [address] Performed By: #### 2 4321-2 ####[facility] LABCLIA [id number] [address] [address] [place] Calcium [Mass/Vol] 10.0 mg/dL Normal 8.5-10.2 [facility] Comment on above: Order Comment: Speci men Type: BLOOD SPECIMENOrdering Facility: [facility] Address: [address] [place], [place] [id number] Performed By: #### 2 4321-2 ####[facility] LABCLIA [id number] [place] [id number] [place] Chloride [Moles/Vol] 103 mmol/L Normal 98-107 [facility] Comment on above: Order Comment: Speci men Type: BLOOD SPECIMENOrdering Facility: [facility] Address: [address] [place] [address] Performed By: #### 2 4321-2 ####[facility] LABCLIA [id number] [place] [id number] [place] CO2 [Moles/Vol] 30 mmol/L Normal 22-30 [facility] Comment on above: Order Comment: Speci men Type: BLOOD SPECIMENOrdering Facility: [facility] Address: [address] [place], [place] [id number] Performed By: #### 2 4321-2 ####[facility] LABCLIA [id number] [place] [id number] [place] Creatinine [Mass/Vol] 0.58 mg/dL Normal 0.58-0.96 [facility] Comment on above: Order Comment: Speci men Type: BLOOD SPECIMENOrdering Facility: [facility] Address: [address] [place] [address] Performed By: #### 2 4321-2 ####[facility] LABCLIA [id number] [place] [id number] [place] Creatinine and Glomerular filtration rate.predicted panel (S/P/Bld) 95 mL/min/1.73m??? Normal >=60 [facility] Comment on above: Order Comment: Speci men Type: BLOOD SPECIMENOrdering Facility: [facility] Address: [address] [place] [address] Result Comment: Betsy mated Glomerular Filtration Rate [...] reflect actual GFR. Performed By: #### 2 4321-2 ####[facility] LABIA [id number] [place] [address] [place] Glucose [Mass/Vol] 91 mg/dL Normal 74-99 [facility] Comment on above: Order Comment: Negin parson Type: BLOOD SPECIMENOrdering Facility: [facility] Address: [address] [place] [address] Result Comment: The [place] Diabetes [employer] (ADA) provides guidance for cutoff values for fasting glucose and random glucose. The ADA defines fasting as no caloric intake for at least 8 hours. Fasting plasma glucose results between 100 to 125 mg/dL indicate increased risk for diabetes (prediabetes).Fasting plasma glucose results greater than or equal to 126 mg/dL meet the criteria for diagnosis of diabetes. In the absence of unequivocal hyperglycemia, results should be confirmed by repeat testing. In a patient with classic symptoms of hyperglycemia or hyperglycemic crisis, random plasma glucose results greater than or equal to 200 mg/dL meet the criteria for diagnosis of diabetes.Reference: Standards of Medical Care in Diabetes 2016, [place] [employer]. Diabetes Care. 2016.39(Suppl 1). Performed By: #### 2 4321-2 ####[facility]IA [id number] [place] [id number] [place] Potassium [Moles/Vol] 4.2 mmol/L Normal 3.7-5.1 [facility] Comment on above: Order Comment: Negin parson Type: BLOOD SPECIMENOrdering Facility: [facility] Address: [address] [place] [address] Performed By: #### 2 4321-2 ####[facility] LABCLIA [id number] [place] [address] [place] Sodium [Moles/Vol] 141 mmol/L Normal 136-144 [facility] Comment on above: Order Comment: Speci men Type: BLOOD SPECIMENOrdering Facility: [facility] Address: [address] [place] [address] Performed By: #### 2 4321-2 ####[facility] LABCLIA [id number] [place] [address] [place] Urea nitrogen [Mass/Vol] 22 mg/dL High 7-21 [facility] Comment on above: Order Comment: Speci men Type: BLOOD SPECIMENOrdering Facility: [facility] Address: [address] [place] [address] Performed By: #### 2 4321-2 ####[facility] LABCLIA [id number] [place] [address] [place] CBC W Auto Differential pane l (Bld)on 10-07-2024 Basophils (Bld) [#/Vol] 0.10 10*3/uL Normal <0.11 [facility] Comment on above: Order Comment: Speci men Type: BLOOD SPECIMENOrdering Facility: [facility] Address: [address] [place] [address] Performed By: #### 5 7021-8 ####[facility] LABCLIA [id number] [place] [address] [place] Basophils/100 WBC (Bld) 1.2 % Normal [facility] Comment on above: Order Comment: Speci men Type: BLOOD SPECIMENOrdering Facility: [facility] Address: [address] [place] [address] Performed By: #### 5 7021-8 ####[facility] LABCLIA [id number] [place] [address] [place] Differential cell count method Nom (Bld) Auto Normal [facility] Comment on above: Order Comment: Speci men Type: BLOOD SPECIMENOrdering Facility: [facility] Address: [address] [place] [address] Performed By: #### 5 7021-8 ####[facility] LABCLIA [id number] [place] [address] [place] Eosinophils (Bld) [#/Vol] 0.18 10*3/uL Normal <0.46 [facility] Comment on above: Order Comment: Speci men Type: BLOOD SPECIMENOrdering Facility: [facility] Address: [address] [place] [address] Performed By: #### 5 7021-8 ####[facility] LABIA [id number] [place] [address] [place] Eosinophils/100 WBC (Bld) 2.1 % Normal [facility] Comment on above: Order Comment: Speci men Type: BLOOD SPECIMENOrdering Facility: [facility] Address: [address] [place] [address] Performed By: #### 5 7021-8 ####[facility] LABIA [id number] [place] [address] [place] Erythrocyte distribution width (RBC) [Ratio] 14.5 % Normal 11.5-15.0 [facility] Comment on above: Order Comment: Speci men Type: BLOOD SPECIMENOrdering Facility: [facility] Address: [address] [place] [address] Performed By: #### 5 7021-8 ####[facility] LABIA [id number] [address] [place] Hematocrit (Bld) [Volume fraction] 37.1 % Normal 36.0-46.0 [facility] Comment on above: Order Comment: Speci men Type: BLOOD SPECIMENOrdering Facility: [facility] Address: [address] [place] [address] Performed By: #### 5 7021-8 ####[facility] LABCLIA [id number] [place] [address] [place] Hemoglobin (Bld) [Mass/Vol] 11.9 g/dL Normal 11.5-15.5 [facility] Comment on above: Order Comment: Speci men Type: BLOOD SPECIMENOrdering Facility: [facility] Address: [address] [place] [address] Performed By: #### 5 7021-8 ####[facility] LABCLIA [id number] [place] [address] [place] Immature granulocytes (Bld) [#/Vol] 0.04 10*3/uL Normal <0.10 [facility] Comment on above: Order Comment: Speci men Type: BLOOD SPECIMENOrdering Facility: [facility] Address: [address] [place] [address] Performed By: #### 5 7021-8 ####[facility]IA [id number] [place] [address] [place] Immature granulocytes/100 WBC (Bld) 0.5 % Normal [facility] Comment on above: Order Comment: Speci men Type: BLOOD SPECIMENOrdering Facility: [facility] Address: [address] [place] [address] Performed By: #### 5 7021-8 ####[facility] LABCLIA [id number] [place] [address] [place] Lymphocytes (Bld) [#/Vol] 1.18 10*3/uL Normal 1.00-4.00 [facility] Comment on above: Order Comment: Speci men Type: BLOOD SPECIMENOrdering Facility: [facility] Address: [address] [place] [address] Performed By: #### 5 7021-8 ####[facility] LABIA [id number] [place] [address] [place] Lymphocytes/100 WBC (Bld) 13.9 % Normal [facility] Comment on above: Order Comment: Speci men Type: BLOOD SPECIMENOrdering Facility: [facility] Address: [address] [place] [address] Performed By: #### 5 7021-8 ####[facility]IA [id number] [place] [address] [place] MCH (RBC) [Entitic mass] 26.6 pg Normal 26.0-34.0 [facility] Comment on above: Order Comment: Speci men Type: BLOOD SPECIMENOrdering Facility: [facility] Address: [address] [place] [address] Performed By: #### 5 7021-8 ####[facility] LABIA [id number] [place] [address] [place] MCHC (RBC) [Mass/Vol] 32.1 g/dL Normal 30.5-36.0 [facility] Comment on above: Order Comment: Speci men Type: BLOOD SPECIMENOrdering Facility: [facility] Address: [address] [place] [address] Performed By: #### 5 7021-8 ####[facility] LABIA [id number] [place] [address] [place] MCV (RBC) [Entitic vol] 82.8 fL Normal 80.0-100.0 [facility] Comment on above: Order Comment: Speci men Type: BLOOD SPECIMENOrdering Facility: [facility] Address: [address] [place] [address] Performed By: #### 5 7021-8 ####[facility] LABIA [id number] [place] [address] [place] Monocytes (Bld) [#/Vol] 0.71 10*3/uL Normal <0.87 [facility] Comment on above: Order Comment: Speci men Type: BLOOD SPECIMENOrdering Facility: [facility] Address: [address] [place] [address] Performed By: #### 5 7021-8 ####[facility] LABCLIA [id number] [place] [address] [place] Monocytes/100 WBC (Bld) 8.3 % Normal [facility] Comment on above: Order Comment: Speci men Type: BLOOD SPECIMENOrdering Facility: [facility] Address: [address] [place] [address] Performed By: #### 5 7021-8 ####[facility] LABCLIA [id number] [place] [address] [place] Neutrophils (Bld) [#/Vol] 6.30 10*3/uL Normal 1.45-7.50 [facility] Comment on above: Order Comment: Speci men Type: BLOOD SPECIMENOrdering Facility: [facility] Address: [address] [place] [address] Performed By: #### 5 7021-8 ####[facility] LABCLIA [id number] [place] [address] [place] Neutrophils/100 WBC (Bld) 74.0 % Normal [facility] Comment on above: Order Comment: Speci men Type: BLOOD SPECIMENOrdering Facility: [facility] Address: [address] [place] [address] Performed By: #### 5 7021-8 ####[facility] LABCLIA [id number] [place] [id number] [place] Nucleated RBC (Bld) [#/Vol] 10*3/uL Normal <0.01 [facility] Comment on above: Order Comment: Speci men Type: BLOOD SPECIMENOrdering Facility: [facility] Address: [address] [place] [address] Performed By: #### 5 7021-8 ####[facility] LABCLIA [id number] [place] [id number] [place] Nucleated RBC/100 WBC (Bld) [Ratio] 0.0 /100 WBC Normal [facility] Comment on above: Order Comment: Speci men Type: BLOOD SPECIMENOrdering Facility: [facility] Address: [address] [place] [address] Performed By: #### 5 7021-8 ####[facility] LABCLIA [id number] [place] [address] [place] Platelet mean volume (Bld) [Entitic vol] 11.4 fL Normal 9.0-12.7 [facility] Comment on above: Order Comment: Speci men Type: BLOOD SPECIMENOrdering Facility: [facility] Address: [address] [place] [address] Performed By: #### 5 7021-8 ####[facility] LABCLIA [id number] [place] [address] [place] Platelets (Bld) [#/Vol] 275 10*3/uL Normal 150-400 [facility] Comment on above: Order Comment: Speci men Type: BLOOD SPECIMENOrdering Facility: [facility] Address: [address] [place] [address] Performed By: #### 5 7021-8 ####[facility] LABCLIA [id number] [place] [address] [place] RBC (Bld) [#/Vol] 4.48 10*6/uL Normal 3.90-5.20 [facility] Comment on above: Order Comment: Speci men Type: BLOOD SPECIMENOrdering Facility: [facility] Address: [address] [place] [address] Performed By: #### 5 7021-8 ####[facility] LABCLIA [id number] [place] [address] [place] WBC (Bld) [#/Vol] 8.51 10*3/uL Normal 3.70-11.00 [facility] Comment on above: Order Comment: Speci men Type: BLOOD SPECIMENOrdering Facility: [facility] Address: [address] [place] [address] Performed By: #### 5 7021-8 ####[facility] LABCLIA [id number] [place] [address] [place] Hemoccult Stl Ql IAon 2024 Lower GI hemoglobin IA Ql (Stl) Positive Abnormal Negative [facility] Comment on above: Order Comment: Speci men Type: STOOL SPECIMENOrdering Facility: [facility] Address: [address] [place] [address] Performed By: #### 2 9771-3 ####[facility] LABCLIA [id number] [place] [address] [place] CNOVon 10-04-2024 CNOV Normal [facility] CNOVon 09-25-2024 CNOV Normal [facility] Office Visit Reporton 2024 Office Visit Report [facility] [address] [place] [address] OFFICE VISIT Date of Service: 09/23/24 MR#: [id number] Acct: [id number] Patient: VANDANA MITCHELL Rep #: [id number] : 1950 Provider: May Rivas Age/Sex: 74/F [place] [facility] [place] Status: Signed Intake Vital Signs 07/23/24 13:30 Height 5 ft 2 in Weight: 109 lb 6 oz BMI 20.0 BP 158/80 H Blood Pressure Location Lt brachial Position Sitting Pulse 88 Pulse Source Monitor Pulse Oximetry (%) 96 Oxygen Delivery Method room air Intake Visit Reasons: Prolia - B B Chief Complaint: Osteoporosis Allergies aspirin Allergy (Intermediate, Verified 07/23/24 13:32) lips swell amoxicillin Allergy (Verified 07/23/24 13:32) Rash diclofenac Allergy (Verified 07/23/24 13:32) Shortness of breath iodine Allergy (Verified 07/23/24 13:32) Anaphylaxis metoprolol Allergy (Verified 07/23/24 13:32) PT UNSURE OF REACTION shellfish derived Allergy (Verified 07/23/24 13:32) Anaphylaxis Have you fallen in the past year?: No Office Procedures Injections Procedure performed by: Boaz Terrell Lot number: [id number] 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: [employer] date: 12/02/26 Dose of injection: 1 mL Site of injection: Sub-Q Medication Given: Yes Is this a patient provided medication?: No Office Meds Prolia 60 mg/mL subcutaneous syringe Performing Provider: Gordy Null MD Performing Location: [facility] Administered by: Boaz Terrell RN on 09/23/24 11:38 Dose Route Admin Location Dispensed Lot Number Expiration Date [facility] Man ufacturer 60 mg subcut Right Arm 1 mL [id number] 12/02/26 57108-157-14 [employer] Assessment and Plan Assessment and Plan (1) Osteoporosis: Status: Chronic Qualifiers: Osteoporosis type: age-related Presence of current pathological fracture: without current pathological fracture Qualified Code(s): M81.0 - Age-related osteoporosis without current pathological fracture Orders: Orders Prolia Injection 09/23/24 M81.0 - Age-related osteoporosis without current pathological fracture Clinical Quality Measures Falls Risk Screening/Assistive Devices Have you fallen in the past year?: No 09/26/24 0652 Date Gordy Null MD Cosigner Signature: Date (if applicable) CC: Normal [facility] Office Visiton 08-06-2024 Follow-up visit [id number] David Mitchell i 1950 F Date Provider Department Center 08/06/2024 56814-IOS[facility]ROMARIE [facility] UR None Family History Problem Relation Age of Onset Colon cancer Mother Hypertension Mother Cancer Mother Colon cancer Father Diabetes Father Cancer Father Hypertension Maternal Grandmother Hypertension Paternal Grandfather Family Status - Relation Status Age at Mother Father Maternal Grandmother Paternal Grandfather Level of Service:43565 [place] OFFICE/OUTPATIENT ESTABLISHED SF MDM 10 MIN Reason for Visit and Comments: Follow-up [107238] - Feels that prolapse may be back. At night can't get to bathroom in time and will leak sometimes. With running water will get an urgency to go. Normal [facility] Progress Noteon 08-06-2024 Progress Note Urogynecology & Reconstructive Pelvic Surgery Follow-Up Vandana Mitchell is a 74 y.o. female who presents for a follow-up of s/p: 12/19/23 Dr. Chery Laparoscopic assisted vaginal hysterectomy with BSO Dr. Alston Uterosacral ligament vaginal vault suspension (intraperitoneal colpopexy) Anterior colporrhaphy [employer] Obtryx II transobturator midurethral sling Cystourethroscopy History since last visit: Pt feels like prolapse has returned, not as bad as prior to surgery. She reports urinary urgency, UUI. Denies voiding symptoms. I have confirmed and edited as necessary, the PFSH and ROS obtained by others. Marie Alston MD Pig Conveyor Operator: Montse Davis MA OBJECTIVE: There were no vitals taken for this visit. General Appearance: no acute distress, normally developed, and affect appropriate Pelvic: External Genitalia: normal appearing vulva with no masses, tenderness, or lesions Vagina: Ant Wall - Stage II; Post Wall - Stage I Cervix / [place] - Stage I POP-Q: Aa = +0.5 Ba = +0.5 C = -6.5 GH = 3 PB = 2.5 TVL = 8 Ap = -2 Bp = -2 D = N/A Vaginal epithelium: atrophic Cervix: surgically absent Urethra: normal appearing urethra with no masses, tenderness or lesions Bimanual: no palpable masses or tenderness Rectovaginal: deferred Impression: Vandana Mitchell is a 74 y.o. female with recurrent stage 2 cystocele, OAB. Plan: 1. Cystocele, midline (Primary) - Exam findings reviewed and discussed. Pt is aware of prolapse, but it is not severe and not bothersome to her at this time. - Discussed PMEs, PFPT, pessary, surgery as options for management if bothersome symptoms in the future. 2. OAB (overactive bladder) - OAB care pathway reviewed and discussed. Literature given on PMEs, bladder retraining. Follow up in 6 months or sooner prn Marie Kiki Gamaliel, MD [facility] Endocrinology Visit Reporton 07-23-2024 Endocrinology Visit Report [facility] [address] [place] [address] OFFICE VISIT Date of Service: 07/23/24 MR#: [id number] Acct: [id number] Name: VANDANA MITCHELL Rep #: [id number] : 1950 Provider: May Rivas Age/Sex: 74/F Location: [facility] [place] Status: Signed Intake Vital Signs 07/25/23 13:13 03/26/24 16:04 07/23/24 13:30 Height 5 ft 2 in 5 ft 2 in 5 ft 2 in Weight: 109 lb 6 oz BMI 20.0 BP 158/80 H Blood Pressure Location Lt brachial Position Sitting Pulse 88 Pulse Source Monitor Pulse Oximetry (%) 96 Oxygen Delivery Method room air Intake Visit Reasons: 1 Y FU Chief Complaint: Osteoporosis Is patient in pain?: No Allergies aspirin Allergy (Intermediate, Verified 07/23/24 13:32) lips swell amoxicillin Allergy (Verified 07/23/24 13:32) Rash diclofenac Allergy (Verified 07/23/24 13:32) Shortness of breath iodine Allergy (Verified 07/23/24 13:32) Anaphylaxis metoprolol Allergy (Verified 07/23/24 13:32) PT UNSURE OF REACTION shellfish derived Allergy (Verified 07/23/24 13:32) Anaphylaxis Medications ???Medication ???Instructions ???Recorded ???Confirmed ???Type multivitamin,tx-iron-m inerals 1 tab PO DAILY 05/23/18 07/23/24 H istory (Complete Multivitamin tablet) denosumab 60 mg/mL subcutaneous 60 mg subcut [id number] #1 mL 07/23/24 Rx syringe calcium 250 mg 1 tab PO BID 07/25/23 07/23/24 His tory (citrate)-ergocalcifer ol (D2) 2.5 mcg (100 unit) tablet (Bryn-Citrate) diltiazem HCl 240 mg 240 mg PO QDAY 07/23/24 07/23/24 H istory capsule,extended release 24 hr Have you fallen in the past year?: Yes PFSH Medical History Osteoporosis MGUS (monoclonal gammopathy of unknown significance) Cardiomyopathy Restrictive lung disease Arthritis Hypertension Surgical History History of bunionectomy S/P wrist surgery Family History Mother Cancer colon Father Cancer lung Social History Smoking Status: Never smoker alcohol intake: current details: social substance use type: does not use caffeine: Yes what type of physical activity do you participate in: none seatbelt use: always do you feel safe at home: Yes additional social history: Ray- retired Patient is retired HPI HPI Chief Complaint: Osteoporosis Details: VANDANA MITCHELL, is a 74 F who presents to the office today for follow up. She has history of bilateral wrist fractures. She has been on Prolia for several years. No recent falls or fractures. D 64 PTH 64 calcium 10.1 ROS Const Constitutional: No fatigue or weight change ENT ENT: No dizziness/vertigo Cardio Cardiology: No chest pain at rest, chest pain with exertion, shortness of breath or palpitations Skin Skin: No wounds Endo Endocrine: No fatigue or weight change Exam Const General: cooperative, healthy appearing, comfortable, no acute distress, well developed and not cushingoid Nutritional Appearance: well nourished and thin Orientation: alert, awake and oriented x3 HENMT Head: normal to inspection Ears: hearing grossly normal bilaterally Nose: external nose normal Mouth: oral mucosae normal Eyes General: appearance normal, both eyes and all related structures Alignment and Position: alignment normal Periorbital: periorbital findings normal Eyelids: eyelids normal Conjunctivae: conjunctivae normal Neck Neck: normal visual inspection Neck mass: No Chest Chest palpation inspection: normal inspection of the chest Resp Effort Inspection: normal respiratory effort, able to speak in complete sentences, symmetric chest movement, no audible wheezes and no cough Cardio Rate: regular rate Rhythm: regular rhythm Skin General: no rashes or lesions noted Neuro General: patient alert, patient awake and patient oriented x3 Cranial Nerves: CN's II-XI intact bilaterally Cognition: normal cognition Speech: speech normal Gait: normal gait Motor: muscle tone normal throughout Extrem General: no edema Psych Appearance: grossly normal Mental Status: mental status grossly normal Mood: congruent mood Affect: normal affect Speech and Movement: speech and movement normal Attitude: cooperative Thought Process: normal Thought Content: normal Judgment: judgment good Clinical Quality Measures Falls Risk Screening/Assistive Devices Have you fallen in the past year?: Yes Assessment and Plan Assessment and Plan (1) Osteoporosis: Status: Chronic Qualifiers: Osteoporosis type: age-related Presence of current pathological fracture: witho (more content not included)... Normal [facility] CNPNon 07-17-2024 CNPN Normal [facility] CNOVSPon 07-04-2024 CNOVSP Normal [facility] CNOVon 06-28-2024 CNOV Normal [facility] B2 Microglob SerPl-mCncon Cljw-9-Zwvbgmgovucix [Mass/Vol] 2.6 ug/mL Normal <3.1 [facility] Comment on above: Order Comment: Negin parson Type: BLOOD SPECIMENOrdering Facility: [facility] Address: [address] [place] [address] Result Comment: Beta -2 Microglobulin test is performed using the [employer] immunoturbidimetric method. Results obtained with different methods or kits cannot be used interchangeably. Performed By: #### 2 731-8, 2885-2, 1951-06 ####[facility] LABCLIA [id number] [place] [address] [place] CBC W Auto Differential pane l (Bld)on 06-27-2024 Basophils (Bld) [#/Vol] 0.12 10*3/uL High <0.11 [facility] Comment on above: Order Comment: Negin parson Type: BLOOD SPECIMENOrdering Facility: [facility] Address: [address] [place] [address] Performed By: #### 5 7021-8 ####[facility] [id number] [place] [address] [place] Basophils/100 WBC (Bld) 1.2 % Normal [facility] Comment on above: Order Comment: Speci men Type: BLOOD SPECIMENOrdering Facility: [facility] Address: [address] [place] [address] Performed By: #### 5 7021-8 ####[facility] [id number] [place] [address] [place] Differential cell count method Nom (Bld) Auto Normal [facility] Comment on above: Order Comment: Speci men Type: BLOOD SPECIMENOrdering Facility: [facility] Address: [address] [place] [address] Performed By: #### 5 7021-8 ####[facility]OP[facility] [id number] [place] [address] [place] Eosinophils (Bld) [#/Vol] 0.17 10*3/uL Normal <0.46 [facility] Comment on above: Order Comment: Speci men Type: BLOOD SPECIMENOrdering Facility: [facility] Address: [address] [place] [address] Performed By: #### 5 7021-8 ####[facility] [id number] [place] [address] [place] Eosinophils/100 WBC (Bld) 1.7 % Normal [facility] Comment on above: Order Comment: Speci men Type: BLOOD SPECIMENOrdering Facility: [facility] Address: [address] [place] [address] Performed By: #### 5 7021-8 ####[facility] [id number] [place] [address] [place] Erythrocyte distribution width (RBC) [Ratio] 16.2 % High 11.5-15.0 [facility] Comment on above: Order Comment: Speci men Type: BLOOD SPECIMENOrdering Facility: [facility] Address: [address] [place] [address] Performed By: #### 5 7021-8 ####[facility] MILLWMDLIA [id number] [place] [address] [place] Hematocrit (Bld) [Volume fraction] 38.7 % Normal 36.0-46.0 [facility] Comment on above: Order Comment: Speci men Type: BLOOD SPECIMENOrdering Facility: [facility] Address: [address] [place] [address] Performed By: #### 5 7021-8 ####[facility] [id number] [place] [address] [place] Hemoglobin (Bld) [Mass/Vol] 12.3 g/dL Normal 11.5-15.5 [facility] Comment on above: Order Comment: Speci men Type: BLOOD SPECIMENOrdering Facility: [facility] Address: [address] [place] [address] Performed By: #### 5 7021-8 ####[facility] [id number] [place] [address] [place] Immature granulocytes (Bld) [#/Vol] 10*3/uL Normal <0.10 [facility] Comment on above: Order Comment: Speci men Type: BLOOD SPECIMENOrdering Facility: [facility] Address: [address] [place] [address] Performed By: #### 5 7021-8 ####[facility] [id number] [place] [address] [place] Immature granulocytes/100 WBC (Bld) 0.2 % Normal [facility] Comment on above: Order Comment: Speci men Type: BLOOD SPECIMENOrdering Facility: [facility] Address: [address] [place] [address] Performed By: #### 5 7021-8 ####[facility]ITALNCL[facility] [id number] [place] [address] [place] Lymphocytes (Bld) [#/Vol] 1.30 10*3/uL Normal 1.00-4.00 [facility] Comment on above: Order Comment: Speci men Type: BLOOD SPECIMENOrdering Facility: [facility] Address: [address] [place] [address] Performed By: #### 5 7021-8 ####[facility] [id number] [address] [place] Lymphocytes/100 WBC (Bld) 13.3 % Normal [facility] Comment on above: Order Comment: Speci men Type: BLOOD SPECIMENOrdering Facility: [facility] Address: [address] [place] [address] Performed By: #### 5 7021-8 ####[facility] [id number] [place] [address] [place] MCH (RBC) [Entitic mass] 25.5 pg Low 26.0-34.0 [facility] Comment on above: Order Comment: Speci men Type: BLOOD SPECIMENOrdering Facility: [facility] Address: [address] [place] [address] Performed By: #### 5 7021-8 ####[facility] [id number] [place] [address] [place] MCHC (RBC) [Mass/Vol] 31.8 g/dL Normal 30.5-36.0 [facility] Comment on above: Order Comment: Speci men Type: BLOOD SPECIMENOrdering Facility: [facility] Address: [address] [place] [address] Performed By: #### 5 7021-8 ####[facility]PITALNCLI [id number] [place] [address] [place] MCV (RBC) [Entitic vol] 80.3 fL Normal 80.0-100.0 [facility] Comment on above: Order Comment: Speci men Type: BLOOD SPECIMENOrdering Facility: [facility] Address: [address] [place] [address] Performed By: #### 5 7021-8 ####[facility] COLTDIANDRA [id number] [place] [address] [place] Monocytes (Bld) [#/Vol] 0.91 10*3/uL High <0.87 [facility] Comment on above: Order Comment: Speci men Type: BLOOD SPECIMENOrdering Facility: [facility] Address: [address] [place] [address] Performed By: #### 5 7021-8 ####[facility] [id number] [place] [address] [place] Monocytes/100 WBC (Bld) 9.3 % Normal [facility] Comment on above: Order Comment: Speci men Type: BLOOD SPECIMENOrdering Facility: [facility] Address: [address] [place] [address] Performed By: #### 5 7021-8 ####[facility] HOSPITALNCA [id number] [place] [address] [place] Neutrophils (Bld) [#/Vol] 7.25 10*3/uL Normal 1.45-7.50 [facility] Comment on above: Order Comment: Speci men Type: BLOOD SPECIMENOrdering Facility: [facility] Address: [address] [place] [address] Performed By: #### 5 7021-8 ####[facility]ITALNCLIA [id number] [place] [address] [place] Neutrophils/100 WBC (Bld) 74.3 % Normal [facility] Comment on above: Order Comment: Speci men Type: BLOOD SPECIMENOrdering Facility: [facility] Address: [address] [place] [address] Performed By: #### 5 7021-8 ####[facility] COLTWNCLIA [id number] [place] [address] [place] Nucleated RBC (Bld) [#/Vol] 10*3/uL Normal <0.01 [facility] Comment on above: Order Comment: Speci men Type: BLOOD SPECIMENOrdering Facility: [facility] Address: [address] [place] [address] Performed By: #### 5 7021-8 ####[facility] [id number] [place] [address] [place] Nucleated RBC/100 WBC (Bld) [Ratio] 0.0 /100 WBC Normal [facility] Comment on above: Order Comment: Speci men Type: BLOOD SPECIMENOrdering Facility: [facility] Address: [address] [place] [address] Performed By: #### 5 7021-8 ####[facility] [id number] [place] [address] [place] Platelet mean volume (Bld) [Entitic vol] 10.7 fL Normal 9.0-12.7 [facility] Comment on above: Order Comment: Speci men Type: BLOOD SPECIMENOrdering Facility: [facility] Address: [address] [place] [address] Performed By: #### 5 7021-8 ####[facility] [id number] [place] [address] [place] Platelets (Bld) [#/Vol] 261 10*3/uL Normal 150-400 [facility] Comment on above: Order Comment: Speci men Type: BLOOD SPECIMENOrdering Facility: [facility] Address: [address] [place] [address] Performed By: #### 5 7021-8 ####[facility]PITALNCL[facility] [id number] [place] [address] [place] RBC (Bld) [#/Vol] 4.82 10*6/uL Normal 3.90-5.20 [facility] Comment on above: Order Comment: Speci men Type: BLOOD SPECIMENOrdering Facility: [facility] Address: [address] [place] [address] Performed By: #### 5 7021-8 ####[facility] COLTDO [id number] [place] [address] [place] [facility] WBC (Bld) [#/Vol] 9.77 10*3/uL Normal 3.70-11.00 [facility] Comment on above: Order Comment: Speci men Type: BLOOD SPECIMENOrdering Facility: [facility] Address: [address] [place] [address] Performed By: #### 5 7021-8 ####[facility]ITALANUSH[facility] [id number] [place] [address] [place] Comprehensive metabolic 2000 panelon 06-27-2024 Albumin [Mass/Vol] 4.7 g/dL Normal 3.9-4.9 [facility] Comment on above: Order Comment: Speci men Type: BLOOD SPECIMENOrdering Facility: [facility] Address: [address] [place] [address] Performed By: #### 2 4323-8, 2532-0 ####[facility]PITALANUSH[facility] [id number] [place] [address] [place] ALP [Catalytic activity/Vol] 73 U/L Normal 34-123 [facility] Comment on above: Order Comment: Speci men Type: BLOOD SPECIMENOrdering Facility: [facility] Address: [address] [place] [address] Performed By: #### 2 4323-8, 2532-0 ####[facility]PITALBRENT[facility] [id number] [place] [address] [place] ALT [Catalytic activity/Vol] 13 U/L Normal 7-38 [facility] Comment on above: Order Comment: Speci men Type: BLOOD SPECIMENOrdering Facility: [facility] Address: [address] [place] [address] Performed By: #### 2 4323-8, 2531-0 ####[facility] [id number] [place] [address] [place] Anion gap [Moles/Vol] 9 mmol/L Normal 8-15 [facility] [facility] Comment on above: Order Comment: Speci men Type: BLOOD SPECIMENOrdering Facility: [facility] Address: [address] [place] [address] Performed By: #### 2 4323-8, 2531-0 ####[facility] [id number] [place] [address] [place] AST [Catalytic activity/Vol] 19 U/L Normal 13-35 [facility] Comment on above: Order Comment: Speci men Type: BLOOD SPECIMENOrdering Facility: [facility] Address: [address] [place] [address] Performed By: #### 2 4323-8, 2531-0 ####[facility] [id number] [place] [address] [place] Bilirubin [Mass/Vol] 0.4 mg/dL Normal 0.2-1.3 [facility] Comment on above: Order Comment: Speci men Type: BLOOD SPECIMENOrdering Facility: [facility] Address: [address] [place] [address] Performed By: #### 2 4323-8, 2531-0 ####[facility] [id number] [place] [address] [place] Calcium [Mass/Vol] 10.1 mg/dL Normal 8.5-10.2 [facility] Comment on above: Order Comment: Speci men Type: BLOOD SPECIMENOrdering Facility: [facility] Address: [address] [place] [address] Performed By: #### 2 4323-8, 2531-0 ####[facility] [id number] [place] [address] [place] Chloride [Moles/Vol] 101 mmol/L Normal 98-107 [facility] Comment on above: Order Comment: Speci men Type: BLOOD SPECIMENOrdering Facility: [facility] Address: [address] [place] [address] Performed By: #### 2 4323-8, 2531-0 ####[facility] [id number] [place] [address] [place] CO2 [Moles/Vol] 29 mmol/L Normal 22-30 [facility] Comment on above: Order Comment: Speci men Type: BLOOD SPECIMENOrdering Facility: [facility] Address: [address] [place] [address] Performed By: #### 2 4323-8, 2531-0 ####[facility] [id number] [place] [address] [place] Creatinine [Mass/Vol] 0.62 mg/dL Normal 0.58-0.96 [facility] Comment on above: Order Comment: Speci men Type: BLOOD SPECIMENOrdering Facility: [facility] Address: [address] [place] [address] Performed By: #### 2 4323-8, 2531-0 ####[facility] [id number] [place] [address] [place] Creatinine and Glomerular filtration rate.predicted panel (S/P/Bld) 93 mL/min/1.73m??? Normal >=60 [facility] Comment on above: Order Comment: Speci men Type: BLOOD SPECIMENOrdering Facility: [facility] Address: [facility] [place] [id number] Result Comment: Betsy mated Glomerular Filtration Rate [...] actual GFR. Performed By: #### 2 4323-8, 2531-0 ####[facility] [id number] [place] [address] [place] Glucose [Mass/Vol] 98 mg/dL Normal 74-99 [facility] Comment on above: Order Comment: Speci men Type: BLOOD SPECIMENOrdering Facility: [facility] Address: [address] [place] [address] Result Comment: The [place] Diabetes Association (ADA) provides guidance for cutoff values for fasting glucose and random glucose. The ADA defines fasting as no caloric intake for at least 8 hours. Fasting plasma glucose results between 100 to 125 mg/dL indicate increased risk for diabetes (prediabetes).Fasting plasma glucose results greater than or equal to 126 mg/dL meet the criteria for diagnosis of diabetes. In the absence of unequivocal hyperglycemia, results should be confirmed by repeat testing. In a patient with classic symptoms of hyperglycemia or hyperglycemic crisis, random plasma glucose results greater than or equal to 200 mg/dL meet the criteria for diagnosis of diabetes.Reference: Standards of Medical Care in Diabetes 2016, [place] [employer]. Diabetes Care. 2016.39(Suppl 1). Performed By: #### 2 4323-8, 0 ####[facility] [id number] [place] [address] [place] Potassium [Moles/Vol] 4.0 mmol/L Normal 3.7-5.1 [facility] Comment on above: Order Comment: Speci men Type: BLOOD SPECIMENOrdering Facility: [facility] Address: [address] [place] [address] Performed By: #### 2 4323-8, 2531-0 ####[facility] [id number] [place] [address] [place] Protein [Mass/Vol] 8.0 g/dL Normal 6.3-8.0 [facility] Comment on above: Order Comment: Speci men Type: BLOOD SPECIMENOrdering Facility: [facility] Address: [address] [place] [address] Performed By: #### 2 4323-8, 2531-0 ####[facility] [id number] [place] [address] [place] Sodium [Moles/Vol] 139 mmol/L Normal 136-144 [facility] Comment on above: Order Comment: Speci men Type: BLOOD SPECIMENOrdering Facility: [facility] Address: [address] [place] [address] Performed By: #### 2 43238, 2531-0 ####[facility] [id number] [place] [address] [place] Urea nitrogen [Mass/Vol] 29 mg/dL High 7-21 [facility] Comment on above: Order Comment: Speci men Type: BLOOD SPECIMENOrdering Facility: [facility] Address: [address] [place] [address] Performed By: #### 2 4323-8, 2531-0 ####[facility] [id number] [place] [address] [place] IMMUNOFIXATION SCREEN, SERUM on 06-27-2024 INTERPRETATION (MPA) Atypical restricted bands are present in the IgG and lambda regions. Consistent with IgG lambda monoclonal gammopathy. Normal [facility] Comment on above: Order Comment: Speci men Type: BLOOD SPECIMENOrdering Facility: [facility] Address: [address] [place] [address] Performed By: #### I [facility] ####[facility]CL[facility] [id number] [place] [address] [place] MPA RESULT M protein is present. Abnormal No M p rotein is identified. [facility] Comment on above: Order Comment: Speci men Type: BLOOD SPECIMENOrdering Facility: [facility] Address: [address] [place] [address] Performed By: #### I FESC ####[facility] LABCLIA [id number] [address] [place] STAFF REVIEW (MPA) Reviewed by Annabella Harris M.D., Ph.D Normal [facility] Comment on above: Order Comment: Speci men Type: BLOOD SPECIMENOrdering Facility: [facility] Address: [address] [place] [address] Performed By: #### I FESC ####[facility] LABIA [id number] [place] [address] [place] IMMUNOGLOBULINS,IGG,IGA,IGMo n 06-27-2024 IgA [Mass/Vol] 137 mg/dL Normal 70-400 [facility] Comment on above: Order Comment: Speci men Type: BLOOD SPECIMENOrdering Facility: [facility] Address: [address] [place] [address] Performed By: #### S ERIMM ####[facility] LABIA [id number] [place] [address] [place] IgG [Mass/Vol] 1496 mg/dL Normal 700-1600 [facility] Comment on above: Order Comment: Speci men Type: BLOOD SPECIMENOrdering Facility: [facility] Address: [address] [place] [address] Performed By: #### S ERIMM ####[facility]CL[facility] [id number] [place] [address] [place] IgM [Mass/Vol] 69 mg/dL Normal 40-230 [facility] Comment on above: Order Comment: Speci men Type: BLOOD SPECIMENOrdering Facility: [facility] Address: [address] [place] [address] Performed By: #### S ANNEIMM ####[facility] LABIA [id number] [place] [address] [place] KAPPA/RAMOS,FREE,SERon 2024 Immunoglobulin light chains.kappa.free (S) [Mass/Vol] 22.1 mg/L High 3.3-19.4 [facility] Comment on above: Order Comment: Speci men Type: BLOOD SPECIMENOrdering Facility: [facility] Address: [address] [place] [address] Result Comment: Rare ly, increased serum free light chains levels may not be detected or accurately quantified due to prozone phenomenon or in high viscosity samples using this immunoturbidimetric assay. Correlation with other laboratory results and clinical findings is recommended.The [place] Free Light Chain was performed using the Binding Site Optilite immunoturbidimetric method. Result obtained with different assay methods or kits cannot be used interchangeably. Performed By: #### K LFRS ####[facility] LABIA [id number] [place] [address] [place] Immunoglobulin light chains.kappa/Immunogl obulin light chains.lambda (S) [Mass ratio] 0.17 Low 0.26-1.65 [facility] Comment on above: Order Comment: Speci men Type: BLOOD SPECIMENOrdering Facility: [facility] Address: [address] [place] [address] Performed By: #### K LFRS ####[facility] LABIA [id number] [place] [address] [place] Immunoglobulin light chains.lambda.free [Mass/Vol] 129.4 mg/L High 5.7-26.3 [facility] Comment on above: Order Comment: Speci men Type: BLOOD SPECIMENOrdering Facility: [facility] Address: [address] [place] [address] Result Comment: Rare ly, increased serum free light chains levels may not be detected or accurately quantified due to prozone phenomenon or in high viscosity samples using this immunoturbidimetric assay. Correlation with other laboratory results and clinical findings is recommended.The Lambda Free Light Chain was performed using the Binding Site Optilite immunoturbidimetric method. Result obtained with different assay methods or kits cannot be used interchangeably. Performed By: #### K LFRS ####[facility] LABIA [id number] [place] [address] [place] LDH SerPl-cCncon 06-27-2024 LDH [Catalytic activity/Vol] 214 U/L Normal 135-214 [facility] Comment on above: Order Comment: Speci men Type: BLOOD SPECIMENOrdering Facility: [facility] Address: [address] [place] [address] Performed By: #### 2 4323-8, 2532-0 ####[facility] [id number] [place] [address] [place] MONOCLONAL PROT UR W/INTERPo n 06-27-2024 INTERPRETATION (UMPA) Atypical restricte d bands are present in the IgG and lambda regions. Consistent with IgG lambda monoclonal gammopathy. Normal [facility] Comment on above: Order Comment: Speci men Type: URINE SPECIMENOrdering Facility: [facility] Address: [address] [place] [address] Performed By: #### U RMPA ####[facility]IA [id number] [place] [address] [place] STAFF REVIEW (UMPA) Reviewed by Annabella Harris M.D., Ph.D Normal [facility] Comment on above: Order Comment: Speci men Type: URINE SPECIMENOrdering Facility: [facility] Address: [address] [place] [address] Performed By: #### U RMPA ####[facility] [id number] [place] [address] [place] UMPA RESULT M protein is present. Abnormal No M p rotein is identified. [facility] Comment on above: Order Comment: Speci men Type: URINE SPECIMENOrdering Facility: [facility] Address: [address] [place] [address] Performed By: #### U RMPA ####[facility] [id number] [place] [address] [place] PROTEIN ELECTROPHORESIS SERU M (P)on 06-27-2024 Albumin [Mass/Vol] 4.32 g/dL Normal 3.43-5.41 [facility] Comment on above: Order Comment: Speci men Type: BLOOD SPECIMENOrdering Facility: [facility] Address: [address] [place] [address] Performed By: #### L [id number] ####[facility] LABIA [id number] [place] [address] [place] Alpha 1 globulin Elph [Mass/Vol] 0.27 g/dL Normal 0.18-0.43 [facility] Comment on above: Order Comment: Speci men Type: BLOOD SPECIMENOrdering Facility: [facility] Address: [address] [place] [address] Performed By: #### L [id number] ####[facility]CL[facility] [id number] [place] [address] [place] Alpha 2 globulin Elph [Mass/Vol] 0.74 g/dL Normal 0.42-0.98 [facility] Comment on above: Order Comment: Speci men Type: BLOOD SPECIMENOrdering Facility: [facility] Address: [address] [place] [address] Performed By: #### L [id number] ####[facility] [id number] [place] [address] [place] Beta globulin Elph [Mass/Vol] 0.83 g/dL Normal 0.61-1.17 [facility] Comment on above: Order Comment: Speci men Type: BLOOD SPECIMENOrdering Facility: [facility] Address: [address] [place], [place] [address] Performed By: #### L [id number] ####[facility] [id number] [place] [id number] [place] Gamma globulin Elph [Mass/Vol] 1.25 g/dL Normal 0.53-1.51 [facility] Comment on above: Order Comment: Speci men Type: BLOOD SPECIMENOrdering Facility: [facility] Address: [address] [place] [address] Performed By: #### L [id number] ####[facility] [id number] [place] [address] [place] INTERPRETATION COMMENT FOR PROTEIN ELECTROPHORESIS See separate immunofixation report for characterization of monoclonal gammopathy. Normal [facility] Comment on above: Order Comment: Speci men Type: BLOOD SPECIMENOrdering Facility: [facility] Address: [address] [place] [address] Performed By: #### L [id number] ####[facility] [id number] [place] [address] [place] M-PROTEIN LOCATION Gamma Fraction 1 Normal [facility] Comment on above: Order Comment: Speci men Type: BLOOD SPECIMENOrdering Facility: [facility] Address: [address] [place] [address] Performed By: #### L [id number] ####[facility] [id number] [place] [id number] [place] Protein Fractions [Interp] An M protein is identified on protein electrophoresis. Abnormal No definitive M protein is identified on protein electrophores is. [facility] Comment on above: Order Comment: Speci men Type: BLOOD SPECIMENOrdering Facility: [facility] Address: [address] [place], [place] [id number] Performed By: #### L [id number] ####[facility] [id number] [place] [address] [place] Protein.monoclonal Elph [Mass/Vol] 0.80 g/dL High <=0.00 [facility] Comment on above: Order Comment: Speci men Type: BLOOD SPECIMENOrdering Facility: [facility] Address: [address] [place] [address] Performed By: #### L [id number] ####[facility] [id number] [place] [address] [place] SPE STAFF REVIEW Reviewed by Annabella Harris M.D., Ph.D Normal [facility] Comment on above: Order Comment: Speci men Type: BLOOD SPECIMENOrdering Facility: [facility] Address: [address] [place] [address] Performed By: #### L [id number] ####[facility] [id number] [place] [address] [place] PTH-Intact SerPl-mCncon 06-06 Parathyrin.intact [Mass/Vol] 64 pg/mL Normal 15-65 [facility] Comment on above: Order Comment: Speci men Type: BLOOD SPECIMENOrdering Facility: [facility] Address: [address] [place] [address] Performed By: #### 2 731-8, 288-2, 1952-06 ####[facility] LABIA [id number] [place] [address] [place] Prot SerPl-mCncon 06-27-2024 Protein [Mass/Vol] 7.4 g/dL Normal 6.3-8.0 [facility] Comment on above: Order Comment: Speci men Type: BLOOD SPECIMENOrdering Facility: [facility] Address: [address] [place] [address] Performed By: #### 2 731-8, 288-2, 1952-06 ####[facility]IA [id number] [place] [address] [place] Prot Ur-mCncon 06-27-2024 Protein (U) [Mass/Vol] 22 mg/dL High 0-20 [facility] Comment on above: Order Comment: Speci men Type: URINE SPECIMENOrdering Facility: [facility] Address: [address] [place] [address] Performed By: #### 2 888-6 ####[facility] [id number] [place] [address] [place] URINE PROTEIN ELECTROPHORESI S RANDOM (P)on 06-27-2024 Albumin Elph (U) [Mass fraction] 63.21 % Normal [facility] Comment on above: Order Comment: Speci men Type: URINE SPECIMENOrdering Facility: [facility] Address: [address] [place] [address] Performed By: #### L [id number] ####[facility] [id number] [place] [address] [place] Alpha 1 globulin Elph (U) [Mass fraction] 4.14 % Normal [facility] Comment on above: Order Comment: Speci men Type: URINE SPECIMENOrdering Facility: [facility] Address: [address] [place] [address] Performed By: #### L [id number] ####[facility] [id number] [place] [address] [place] Alpha 2 globulin Elph (U) [Mass fraction] 9.31 % Normal [facility] Comment on above: Order Comment: Speci men Type: URINE SPECIMENOrdering Facility: [facility] Address: [address] [place] [address] Performed By: #### L [id number] ####[facility] [id number] [place] [address] [place] Beta globulin Elph (U) [Mass fraction] 14.34 % Normal [facility] Comment on above: Order Comment: Speci men Type: URINE SPECIMENOrdering Facility: [facility] Address: [address] [place] [address] Performed By: #### L [id number] ####[facility] [id number] [place] [address] [place] Gamma globulin Elph (U) [Mass fraction] 9.00 % Normal [facility] Comment on above: Order Comment: Speci men Type: URINE SPECIMENOrdering Facility: [facility] Address: [address] [place] [address] Performed By: #### L [id number] ####[facility] [id number] [address] STATES [facility] INTERPRETATION COMMENT FOR PROTEIN ELECTROPHORESIS See separate immunofixation report for characterization of monoclonal gammopathy. Normal [facility] Comment on above: Order Comment: Speci men Type: URINE SPECIMENOrdering Facility: [facility] Address: [address] [place] [address] Performed By: #### L [id number] ####[facility] [id number] [place] [address] [place] Protein Fractions Elph Kike (U) [Interp] An M protein is identified on protein electrophoresis. Abnormal No definitive M protein is identified on protein electrophores is. [facility] Comment on above: Order Comment: Speci men Type: URINE SPECIMENOrdering Facility: [facility] Address: [address] [place] [address] Performed By: #### L [id number] ####[facility] [id number] [address] OF [place] STAFF REVIEW (URINE ELECTRO) Reviewed by Annabella Harris M.D., Ph.D Normal [facility] Comment on above: Order Comment: Speci men Type: URINE SPECIMENOrdering Facility: [facility] Address: [address] [place] [address] Performed By: #### L [id number] ####[facility]CL[facility] [id number] [place] [id number] [place] CNOVon 06-24-2024 CNOV Normal [facility] CNOVon 05-31-2024 CNOV Normal [facility] CBC W Auto Differential pane l (Bld)on 05-30-2024 Basophils (Bld) [#/Vol] 0.13 10*3/uL High <0.11 [facility] Comment on above: Order Comment: Speci men Type: BLOOD SPECIMENOrdering Facility: [facility] Address: [address] [place] [address] Performed By: #### 5 7021-8 ####[facility]CL[facility] [id number] [place] [address] [place] Basophils/100 WBC (Bld) 1.6 % Normal [facility] Comment on above: Order Comment: Speci men Type: BLOOD SPECIMENOrdering Facility: [facility] Address: [address] [place] [address] Performed By: #### 5 7021-8 ####[facility]CL[facility] [id number] [place] [address] [place] Differential cell count method Nom (Bld) Auto Normal [facility] Comment on above: Order Comment: Speci men Type: BLOOD SPECIMENOrdering Facility: [facility] Address: [address] [place] [address] Performed By: #### 5 7021-8 ####[facility]CL[facility] [id number] [place] [address] [place] Eosinophils (Bld) [#/Vol] 0.18 10*3/uL Normal <0.46 [facility] Comment on above: Order Comment: Speci men Type: BLOOD SPECIMENOrdering Facility: [facility] Address: [address] [place] [address] Performed By: #### 5 7021-8 ####[facility]CL[facility] [id number] [place] [address] [place] Eosinophils/100 WBC (Bld) 2.2 % Normal [facility] Comment on above: Order Comment: Speci men Type: BLOOD SPECIMENOrdering Facility: [facility] Address: [address] [place] [address] Performed By: #### 5 7021-8 ####[facility]CL[facility] [id number] [place] [address] [place] Erythrocyte distribution width (RBC) [Ratio] 16.5 % High 11.5-15.0 [facility] Comment on above: Order Comment: Speci men Type: BLOOD SPECIMENOrdering Facility: [facility] Address: [address] [place] [address] Performed By: #### 5 7021-8 ####[facility]CL[facility] [id number] [place] [address] [place] Hematocrit (Bld) [Volume fraction] 36.5 % Normal 36.0-46.0 [facility] Comment on above: Order Comment: Speci men Type: BLOOD SPECIMENOrdering Facility: [facility] Address: [address] [place] [address] Performed By: #### 5 7021-8 ####[facility]CL[facility] [id number] [place] [address] [place] Hemoglobin (Bld) [Mass/Vol] 11.5 g/dL Normal 11.5-15.5 [facility] Comment on above: Order Comment: Speci men Type: BLOOD SPECIMENOrdering Facility: [facility] Address: [address] [place] [address] Performed By: #### 5 7021-8 ####[facility]CL[facility] [id number] [place] [address] [place] Immature granulocytes (Bld) [#/Vol] 10*3/uL Normal <0.10 [facility] Comment on above: Order Comment: Speci men Type: BLOOD SPECIMENOrdering Facility: [facility] Address: [address] [place] [address] Performed By: #### 5 7021-8 ####[facility] [id number] [place] [address] [place] Immature granulocytes/100 WBC (Bld) 0.2 % Normal [facility] Comment on above: Order Comment: Speci men Type: BLOOD SPECIMENOrdering Facility: [facility] Address: [address] [place] [address] Performed By: #### 5 7021-8 ####[facility] [id number] [place] [address] [place] Lymphocytes (Bld) [#/Vol] 1.41 10*3/uL Normal 1.00-4.00 [facility] Comment on above: Order Comment: Speci men Type: BLOOD SPECIMENOrdering Facility: [facility] Address: [address] [place] [address] Performed By: #### 5 7021-8 ####[facility] [id number] [place] [address] [place] Lymphocytes/100 WBC (Bld) 17.6 % Normal [facility] Comment on above: Order Comment: Speci men Type: BLOOD SPECIMENOrdering Facility: [facility] Address: [address] [place] [address] Performed By: #### 5 7021-8 ####[facility] [id number] [place] [address] [place] MCH (RBC) [Entitic mass] 25.7 pg Low 26.0-34.0 [facility] Comment on above: Order Comment: Speci men Type: BLOOD SPECIMENOrdering Facility: [facility] Address: [address] [place] [address] Performed By: #### 5 7021-8 ####[facility] LABCLIA [id number] [place] [address] [place] MCHC (RBC) [Mass/Vol] 31.5 g/dL Normal 30.5-36.0 [facility] Comment on above: Order Comment: Speci men Type: BLOOD SPECIMENOrdering Facility: [facility] Address: [address] [place] [address] Performed By: #### 5 7021-8 ####[facility] LABCLIA [id number] [place] [address] [place] MCV (RBC) [Entitic vol] 81.7 fL Normal 80.0-100.0 [facility] Comment on above: Order Comment: Speci men Type: BLOOD SPECIMENOrdering Facility: [facility] Address: [address] [place] [address] Performed By: #### 5 7021-8 ####[facility] LABIA [id number] [place] [address] [place] Monocytes (Bld) [#/Vol] 0.93 10*3/uL High <0.87 [facility] Comment on above: Order Comment: Speci men Type: BLOOD SPECIMENOrdering Facility: [facility] Address: [address] [place] [address] Performed By: #### 5 7021-8 ####[facility] LABCLIA [id number] [place] [address] [place] Monocytes/100 WBC (Bld) 11.6 % Normal [facility] Comment on above: Order Comment: Speci men Type: BLOOD SPECIMENOrdering Facility: [facility] Address: [address] [place] [address] Performed By: #### 5 7021-8 ####[facility] LABCLIA [id number] [place] [address] [place] Neutrophils (Bld) [#/Vol] 5.35 10*3/uL Normal 1.45-7.50 [facility] Comment on above: Order Comment: Speci men Type: BLOOD SPECIMENOrdering Facility: [facility] Address: [address] [place] [address] Performed By: #### 5 7021-8 ####[facility] LABCLIA [id number] [place] [address] [place] Neutrophils/100 WBC (Bld) 66.8 % Normal [facility] Comment on above: Order Comment: Speci men Type: BLOOD SPECIMENOrdering Facility: [facility] Address: [address] [place] [address] Performed By: #### 5 7021-8 ####[facility] LABCLIA [id number] [place] [address] [place] Nucleated RBC (Bld) [#/Vol] 10*3/uL Normal <0.01 [facility] Comment on above: Order Comment: Speci men Type: BLOOD SPECIMENOrdering Facility: [facility] Address: [address] [place] [address] Performed By: #### 5 7021-8 ####[facility] LABIA [id number] [place] [address] [place] Nucleated RBC/100 WBC (Bld) [Ratio] 0.0 /100 WBC Normal [facility] Comment on above: Order Comment: Speci men Type: BLOOD SPECIMENOrdering Facility: [facility] Address: [address] [place] [address] Performed By: #### 5 7021-8 ####[facility] LABCLIA [id number] [place] [address] [place] Platelet mean volume (Bld) [Entitic vol] 10.9 fL Normal 9.0-12.7 [facility] Comment on above: Order Comment: Speci men Type: BLOOD SPECIMENOrdering Facility: [facility] Address: [address] [place] [address] Performed By: #### 5 7021-8 ####[facility] LABIA [id number] [place] [address] [place] Platelets (Bld) [#/Vol] 238 10*3/uL Normal 150-400 [facility] Comment on above: Order Comment: Speci men Type: BLOOD SPECIMENOrdering Facility: [facility] Address: [address] [place] [address] Performed By: #### 5 7021-8 ####[facility] [id number] [place] [address] [place] RBC (Bld) [#/Vol] 4.47 10*6/uL Normal 3.90-5.20 [facility] Comment on above: Order Comment: Speci men Type: BLOOD SPECIMENOrdering Facility: [facility] Address: [address] [place] [address] Performed By: #### 5 7021-8 ####[facility] [id number] [place] [address] [place] WBC (Bld) [#/Vol] 8.02 10*3/uL Normal 3.70-11.00 [facility] Comment on above: Order Comment: Speci men Type: BLOOD SPECIMENOrdering Facility: [facility] Address: [address] [place] [address] Performed By: #### 5 7021-8 ####[facility] [id number] [place] [id number] [place] CNOVon 05-07-2024 CNOV Normal [facility] CNOVon 05-01-2024 CNOV Normal [facility] XR SHLDR >/=3V AP/EMERALD AP/OTH R RTon 05-01-2024 XR SHLDR >/=3V AP/EMERALD AP/OTHR RT Normal [facility] CBC W Auto Differential pane l (Bld)on 04-29-2024 Basophils (Bld) [#/Vol] 0.11 10*3/uL High <0.11 [facility] Comment on above: Order Comment: Speci men Type: BLOOD SPECIMENOrdering Facility: [facility] Address: [address] [place] [address] Performed By: #### 5 7021-8 ####[facility] LABCLIA [id number] [facility] [place] [place] [address] [place] Basophils/100 WBC (Bld) 1.0 % Normal [facility] Comment on above: Order Comment: Speci men Type: BLOOD SPECIMENOrdering Facility: [facility] Address: [address] [place] [address] Performed By: #### 5 7021-8 ####[facility] LABCLIA [id number] [place] [address] [place] Differential cell count method Nom (Bld) Auto Normal [facility] Comment on above: Order Comment: Speci men Type: BLOOD SPECIMENOrdering Facility: [facility] Address: [address] [place] [address] Performed By: #### 5 7021-8 ####[facility] LABCLIA [id number] [place] [address] [place] Eosinophils (Bld) [#/Vol] 0.11 10*3/uL Normal <0.46 [facility] Comment on above: Order Comment: Speci men Type: BLOOD SPECIMENOrdering Facility: [facility] Address: [address] [place] [address] Performed By: #### 5 7021-8 ####[facility] LABCLIA [id number] [place] [address] [place] Eosinophils/100 WBC (Bld) 1.0 % Normal [facility] Comment on above: Order Comment: Speci men Type: BLOOD SPECIMENOrdering Facility: [facility] Address: [address] [place] [address] Performed By: #### 5 7021-8 ####[facility] LABCLIA [id number] [place] [address] [place] Erythrocyte distribution width (RBC) [Ratio] 16.1 % High 11.5-15.0 [facility] Comment on above: Order Comment: Speci men Type: BLOOD SPECIMENOrdering Facility: [facility] Address: [address] [place] [address] Performed By: #### 5 7021-8 ####[facility] LABIA [id number] [place] [address] [place] Hematocrit (Bld) [Volume fraction] 37.2 % Normal 36.0-46.0 [facility] Comment on above: Order Comment: Speci men Type: BLOOD SPECIMENOrdering Facility: [facility] Address: [address] [place] [address] Performed By: #### 5 7021-8 ####[facility] LABIA [id number] [place] [address] [place] Hemoglobin (Bld) [Mass/Vol] 11.4 g/dL Low 11.5-15.5 [facility] Comment on above: Order Comment: Speci men Type: BLOOD SPECIMENOrdering Facility: [facility] Address: [address] [place] [address] Performed By: #### 5 7021-8 ####[facility] LABIA [id number] [place] [address] [place] Immature granulocytes (Bld) [#/Vol] 0.05 10*3/uL Normal <0.10 [facility] Comment on above: Order Comment: Speci men Type: BLOOD SPECIMENOrdering Facility: [facility] Address: [address] [place] [address] Performed By: #### 5 7021-8 ####[facility] LABIA [id number] [id number] [address] [place] Immature granulocytes/100 WBC (Bld) 0.4 % Normal [facility] Comment on above: Order Comment: Speci men Type: BLOOD SPECIMENOrdering Facility: [facility] Address: [address] [place] [address] Performed By: #### 5 7021-8 ####[facility] LABCLIA [id number] [place] [address] [place] Lymphocytes (Bld) [#/Vol] 1.27 10*3/uL Normal 1.00-4.00 [facility] Comment on above: Order Comment: Speci men Type: BLOOD SPECIMENOrdering Facility: [facility] Address: [address] [place] [address] Performed By: #### 5 7021-8 ####[facility] LABCLIA [id number] [place] [address] [place] Lymphocytes/100 WBC (Bld) 11.1 % Normal [facility] Comment on above: Order Comment: Speci men Type: BLOOD SPECIMENOrdering Facility: [facility] Address: [address] [place] [address] Performed By: #### 5 7021-8 ####[facility] LABCLIA [id number] [place] [address] [place] MCH (RBC) [Entitic mass] 25.1 pg Low 26.0-34.0 [facility] Comment on above: Order Comment: Speci men Type: BLOOD SPECIMENOrdering Facility: [facility] Address: [address] [place] [address] Performed By: #### 5 7021-8 ####[facility] LABCLIA [id number] [place] [address] [place] MCHC (RBC) [Mass/Vol] 30.6 g/dL Normal 30.5-36.0 [facility] Comment on above: Order Comment: Speci men Type: BLOOD SPECIMENOrdering Facility: [facility] Address: [address] [place] [address] Performed By: #### 5 7021-8 ####[facility] LABCLIA [id number] [place] [address] [place] MCV (RBC) [Entitic vol] 81.8 fL Normal 80.0-100.0 [facility] Comment on above: Order Comment: Speci men Type: BLOOD SPECIMENOrdering Facility: [facility] Address: [address] [place] [address] Performed By: #### 5 7021-8 ####[facility] LABCLIA [id number] [place] [address] [place] Monocytes (Bld) [#/Vol] 1.06 10*3/uL High <0.87 [facility] Comment on above: Order Comment: Speci men Type: BLOOD SPECIMENOrdering Facility: [facility] Address: [address] [place] [address] Performed By: #### 5 7021-8 ####[facility] LABIA [id number] [place] [address] [place] Monocytes/100 WBC (Bld) 9.2 % Normal [facility] Comment on above: Order Comment: Speci men Type: BLOOD SPECIMENOrdering Facility: [facility] Address: [address] [place] [address] Performed By: #### 5 7021-8 ####[facility] LABCLIA [id number] [place] [address] [place] Neutrophils (Bld) [#/Vol] 8.88 10*3/uL High 1.45-7.50 [facility] Comment on above: Order Comment: Speci men Type: BLOOD SPECIMENOrdering Facility: [facility] Address: [address] [place] [address] Performed By: #### 5 7021-8 ####[facility] LABIA [id number] [place] [id number] [place] Neutrophils/100 WBC (Bld) 77.3 % Normal [facility] Comment on above: Order Comment: Speci men Type: BLOOD SPECIMENOrdering Facility: [facility] Address: [address] [place] [address] Performed By: #### 5 7021-8 ####[facility] LABCLIA [id number] [place] [address] [place] Nucleated RBC (Bld) [#/Vol] 10*3/uL Normal <0.01 [facility] Comment on above: Order Comment: Speci men Type: BLOOD SPECIMENOrdering Facility: [facility] Address: [address] [place] [address] Performed By: #### 5 7021-8 ####[facility] LABCLIA [id number] [place] [address] [place] Nucleated RBC/100 WBC (Bld) [Ratio] 0.0 /100 WBC Normal [facility] Comment on above: Order Comment: Speci men Type: BLOOD SPECIMENOrdering Facility: [facility] Address: [address] [place] [address] Performed By: #### 5 7021-8 ####[facility] LABCLIA [id number] [place] [address] [place] Platelet mean volume (Bld) [Entitic vol] 11.1 fL Normal 9.0-12.7 [facility] Comment on above: Order Comment: Speci men Type: BLOOD SPECIMENOrdering Facility: [facility] Address: [address] [place] [address] Performed By: #### 5 7021-8 ####[facility] LABCLIA [id number] [place] [address] [place] Platelets (Bld) [#/Vol] 340 10*3/uL Normal 150-400 [facility] Comment on above: Order Comment: Speci men Type: BLOOD SPECIMENOrdering Facility: [facility] Address: [address] [place] [address] Performed By: #### 5 7021-8 ####[facility] LABCLIA [id number] [place] [id number] [place] RBC (Bld) [#/Vol] 4.55 10*6/uL Normal 3.90-5.20 [facility] Comment on above: Order Comment: Speci men Type: BLOOD SPECIMENOrdering Facility: [facility] Address: [address] [place] [address] Performed By: #### 5 7021-8 ####[facility] LABIA [id number] [place] [address] [place] WBC (Bld) [#/Vol] 11.48 10*3/uL High 3.70-11.00 [facility] Comment on above: Order Comment: Speci men Type: BLOOD SPECIMENOrdering Facility: [facility] Address: [address] [place] [address] Performed By: #### 5 7021-8 ####[facility] LABIA [id number] [place] [address] [place] Office Visiton 04-16-2024 Follow-up visit [id number] David Mitchell i 1950 F Date Provider Department Center 04/16/2024 [facility] None Family History Problem Relation Age of Onset Colon cancer Mother Hypertension Mother Cancer Mother Colon cancer Father Diabetes Father Cancer Father Hypertension Maternal Grandmother Hypertension Paternal Grandfather Family Status - Relation Status Age at Mother Father Maternal Grandmother Paternal Grandfather Level of Service:47900 [place] OFFICE/OUTPATIENT ESTABLISHED LOW MDM 20 MIN Reason for Visit and Comments: Other [0] - Stitch in vaginal area Normal [facility] Progress Noteon 04-16-2024 Progress Note Pig Conveyor Operator was offere d to the patient for exam. Patient accepted, director medical science in room during exam Normal [facility] Progress Note Reason for Visit: Follow Up DATE OF LAST VISIT: 02/06/2024 Vandana Mitchell is a 73 y.o. yo female presenting for follow up. Patient is s/p Laparoscopic assisted vaginal hysterectomy with BSO with Dr. Chery and Uterosacral ligament vaginal vault suspension (intraperitoneal colpopexy), Anterior colporrhaphy [employer] Obtryx II transobturator midurethral sling, and Cystourethroscopy with Dr. Alston on 12/19/2023. She was last seen in office on 02/06/2024 for a post op check. Today she reports that stitches are falling out. She does feel an irrigation in the vaginal area from time to time. 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 CALCIUM-ERGOCALCIFEROL PO Take by mouth. clindamycin 1 % gel Apply topically daily. denosumab (Prolia) 60 MG/ML solution prefilled syringe Inject 60 mg under the skin Once. dilTIAZem CD (Cardizem CD) 180 MG 24 hr capsule Take 180 mg by mouth in the morning. Fluticasone-Salmeterol 250-50 MCG/ACT aerosol powder Inhale 1 puff in the morning and 1 puff in the evening. albuterol 108 (90 Base) MCG/ACT inhaler Inhale 2 puffs every 4 hours as needed. (Patient not taking: Reported on 04/16/2024) melatonin 3 MG tablet Take 3 mg by mouth. (Patient not taking: Reported on 04/16/2024) Multiple Vitamins-Minerals (Centrum Ultra Womens) tablet Take by mouth daily. (Patient not taking: Reported on 04/16/2024) No current facility-administered medications for this visit. Review of Systems EXAM BP (!) 169/77 Pulse 96 Ht 5' 2 (1.575 m) Wt 106 lb 6.4 oz (48.3 kg) No BMI 19.46 kg/m? Physical Exam Constitutional: She is oriented to person, place, and time. NAD Cardiovascular: Intact distal pulses Pulmonary/Chest: No respiratory distress. Abdominal: Nonsidstended Neurological: She is alert and oriented to person, place, and time. Skin: Skin is warm and dry. No rash noted. She is not diaphoretic. No erythema. No pallor. Psychiatric: She has a normal mood and affect. Her behavior is normal. Judgment and thought content normal. Pelvic: Vulva: Normal external genitalia. Symmetric labia. No skin lesions or pigmentation changes. Normal Bartholin's and [place]'s glands. Normal external urethral meatus. Vagina: Vaginal atrophy. No epithelial lesions or pigmentation changes. Suture material present. No open lesions or ulcerations noted on exam. Neurologic Exam: Motor and sensory exams grossly normal. Procedure: Suture removal Suture material was removed with forceps and cotton swab. Patient tolerated procedure well. IMPRESSION: 1. Vaginal irritation PLAN: Diagnoses and all orders for this visit: Vaginal irritation - Here for follow up - Vaginal exam revealed surgical sutures - Suture material removed using forceps and cotton swab. Patient tolerated procedure well - Follow up as scheduled and PRN --Bj Allen CNP, SOFTWARE ENGINEERING SPECIALIST on 04/16/2024 at 10:53 AM [facility] 36on 04-10-2024 36 S: Patient spoke to [facility] nurse regarding string coming out of vagina. B: Onset of symptoms/concerns 3 weeks ago A: Patient states feeling fishing line coming out of vagina. Describes it as fragile and will break if you touch it. Area feels irritated. Patient denies pain,itching, dryness, redness, sore. Hx. Has urinary sling R: Patient declines advised appointment at this time. Will call back if discharge continues or gets worse. No further needs at this time. Instructed patient to call back with worsening symptoms. Reason for Disposition All other vaginal symptoms (Exceptions: Feels like prior yeast infection, minor abrasion, mild rash < 24 hour duration, mild itching, vaginal dryness during sex.) Protocols used: Vaginal Nfmgjkeo-DRUUM-RP [facility] CNOV Normal [facility] No Panel Informationon 03-28 [facility]ic[facility] [address] [place] [address] Test Date: 2024-03-27 Pat Name: VANDANA MITCHELL Department: Room: Gender: Female Hand Ii Blocker: : 1950 Requested By: Order Number: [id number] Reading MD: Mariana Russell MD Interpretive Statements Current ATS/ERS acceptability and repeatability standards for spirometry met. Start of test and EOFE criteria met. Current ATS/ERS acceptability and repeatability standards for DLCO met with 2 acceptable maneuvers. TGV repeatable x3. IMPRESSION: Spirometry indicates moderate obstruction. Elevated lung volumes (RV and/or RV/TLC) indicate air trapping. The diffusing capacity (uncorrected for hemoglobin) is reduced. The kCO (DLCO/VA) reflects a normal transfer/diffusion of CO from the alveolar regions to the blood. Clinical correlation recommended. Electronically Signed On 03-28-2024 16:40:48 EDT by Mariana Russell MD ID: [id number] Name: VANDANA MITCHELL Race: White Ht: 62.05 in Wt: 109.00 lbs Age: 73 Gender: Female : 1950 Dx: COPD_ Smoking Hx: Non-smoker Doctor: SHANITA JACKSON Test Date: 03/27/2024 Site: Tech: Leighann Dos Santos PRE-BRONCH POST-BRONCH Pre LLN Pred ULN %Pred Post %Pred %Chg SPIROMETRY FVC (L) 1.55 1.71 2.44 3.20 63 FEV1 (L) 0.97 1.30 1.90 2.45 51 FEV1/FVC 0.63 0.65 0.79 0.90 79 PEF L/s (L/sec) 2.56 3.35 4.96 6.56 51 FEF50 (L/sec) 0.65 1.22 2.82 4.43 22 FIF50 (L/sec) 1.39 FEF50/FIF50 0.47 90-100 FIVC (L) 1.58 SZF02-94 (L/sec) 0.49 0.72 1.63 2.97 30 Time (sec) 6.51 FET PEF (sec) 0.06 AFSHAN (L) 0.03 Vol Extrap % (%) 2 LUNG VOLUMES TGV (L) 2.68 1.86 2.72 3.58 98 ERV (L) 0.29 0.81 35 RV (Pleth) (L) 2.37 1.56 2.19 2.82 108 SVC (L) 1.43 1.71 2.44 3.20 58 IC (L) 1.09 1.63 67 TLC (Pleth) (L) 3.75 3.88 4.76 5.64 78 RV/TLC (Pleth) (%) 63 37 46 55 139 LUNG DIFFUSION DLCOunc (ml/min/mmHg) 10.65 13.01 19.17 25.34 55 VA (L) 2.80 3.64 4.74 5.84 58 DLunc/VA (ml/min/mmHg/L) 3.81 2.98 4.30 5.62 88 BHT (sec) 11.76 IVC (L) 1.50 Comments: Current ATS/ERS acceptability and repeatability standards for spirometry met. Start of test and EOFE criteria met. Current ATS/ERS acceptability and repeatability standards for DLCO met with 2 acceptable maneuvers. TGV repeatable x3. PULMONARY FUNCTION LAB [facility] SPIROMETRY BASELINE ONLYon 1 DLCO (ml/min/mmHg) 10.65 ml/min/mmHg [facility] DLCO LLN (ml/min/mmHg) 13.01 ml/min/mmHg [facility] DLCO PREDICTED (ml/min/mmHg) 19.17 ml/min/mmHg [facility] DLCO ULN (ml/min/mmHg) 25.34 ml/min/mmHg [facility] DLCO/VA (ml/min/mmHg/L) 3.81 ml/min/mmHg/L [facility] DLCO/VA PREDICTED (ml/min/mmHg/L) 4.30 ml/min/mmHg/L [facility] DLCOcor PREDICTED (ml/min/mmHg) 19.17 ml/min/mmHg [facility] ERV BOX (L) 0.29 L [facility] ERV PREDICTED (L) 0.81 L/S [facility] FEF25% PRE (L/S) 1.56 L/S [facility] BOF76-54% LLN (L/S) 0.72 L/S [facility] MKF34-40% PRE (L/S) 0.49 L/S [facility] HMV56-10% PREDICTED (L/S) 1.63 L/S [facility] FEF75% LLN (L/S) 0.13 L/S [facility] FEF75% PRE (L/S0 0.18 L/S [facility] FEF75% PREDICTED (L/S) 0.37 L/S [facility] FEF75% ULN (L/S) 1.04 L/S [facility] FET PRE (S) 6.51 S [facility] FEV1 LLN (L) 1.30 L [facility] FEV1 PRE (L) 0.97 L [facility] FEV1 PREDICTED (L) 1.90 L [facility] FEV1 ULN (L) 2.45 L [facility] FEV1/FVC LLN (%) 65 % [facility] FEV1/FVC PRE (%) 63 % [facility] FEV1/FVC PREDICTED (%) 79 % [facility] FRC Box (L) 2.68 L [facility] FVC LLN (L) 1.71 L [facility] FVC PRE (L) 1.55 L [facility] FVC PREDICTED (L) 2.44 L [facility] FVC ULN (L) 3.20 L [facility] IC BOX (L) 1.09 L [facility] IC PREDICTED (L) 1.63 L/S [facility] PEF LLN (L/S) 3.35 L/S [facility] PEF PRE (L/S) 2.56 L/S [facility] PEF ULN (L/S) 6.56 L/S [facility] RV Box (L) 2.37 L [facility] RV Box PREDICTED (L) 2.19 L [facility] RV/TLC Box (%) 63 % [facility] RV/TLC Box PREDICTED (%) 46 % [facility] SVC LLN (L) 1.71 L/S [facility] SVC PREDICTED (L) 2.44 L/S [facility] SVC ULN (L) 3.20 L/S [facility] TLC Box (L) 3.75 L [facility] TLC Box PREDICTED (L) 4.76 L [facility] (L) 2.80 L [facility] VA PREDICTED (L) 4.74 L [facility] VC (L) BOX 1.43 L [facility] CNOVon 03-27-2024 CNOV Normal [facility] SIX MINUTE WALKon 03-27-2024 Leighann Dos Santos RPF T 03/27/2024 11:42 AM RESPIRATORY THERAPY SIX MINUTE WALK TEST OXIMETRY REPORT Six Minute Walk Test for This Encounter Oxygen Device Liters FIO2 SpO2% HR Activity Feet Speed (MPH) Flag R/A 96 83 Resting R/A 93 120 Six Minute Walk 825 1.6 R/A 96 96 Recovery 1 minute post R/A 98 93 Recovery 2 minute post R/A 98 92 Recovery 3 minute post General Information Height Weight Pulse Oximetry Site Oximeter Pre Blood Pressure Post Blood Pressure Total Time Spent (min) 157.6 cm (5' 2.05) 49.4 kg (109 lb) R Index Finger Masimo 132/72 183/75 30 _ Distance Walked (meters) Distance Walked (feet) Female Predicted Walk Distance (feet) Female Lower Limit of Normal (feet) Female % Predicted Total Duration Of The Stops (seconds) 251.46 825 1504.59 1048.59 54.8 15 _ Lowest SpO2 During 6 Minute Walk Pre-Sam Dyspnea Rating Pre-Sam Fatigue Rating Post Sam Dyspnea Rating Post Sam Fatigue Rating 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 Imaging Services [address] [place] [address] Ankle min 3 Views MR#: [id number] Acct: [id number] Name: VANDANA MITCHELL Rep #: [id number] : 1950 F 73 From: Marcelo Browne DO PCP: Dr. Markus Rascon MD Status: PRE ER Study: Ankle min 3 Views Date of Exam: 03/26/24 Exam# [id number] Ordering Dr: Provider,Ed P. [id number] INDICATION: INJURY EXAMINATION/TECHNIQUE: X-RAY - RIGHT XR Ankle Min 3 Views 3 VIEWS COMPARISON: FINDINGS: SOFT TISSUES: Mild lateral soft tissue swelling. No radiopaque foreign body. BONES/JOINTS: No acute fracture or subluxation.. Normal alignment. Calcaneal spurring. Preservation of the joint space.. No sclerotic or destructive changes observed. RAD/Ankle min 3 Views IMPRESSION: Lateral soft tissue swelling. Electronically Signed: Marcelo Browne DO at 16:28 EDT Reading Location ID and State: [facility] / [place] Tel [phone], Service support , CC: Dr. Markus Rascon MD; ED PHYSICIAN PROVIDER Extracorporeal Technician: Signed Normal [facility] Emergency Department Summary on 03-26-2024 Emergency Department Summary [facility] Medical Records Department [address] [place] [address] Emergency Department Summary 03/26/24 MR#: [id number] Acct: [id number] Name: VANDANA MITCHELL Rep #: [id number] : 1950 73 From: Shaista Alfaro DO PCP: Dr. Markus Rascon MD Status:DEP ER Location: ED HPI History of Present Illness Chief Complaint: Lower Extremity Injury Informant: patient Narrative Narrative: Patient 73-year-old female with history of hypertension and osteoporosis presenting with mild pain and bruising to her right ankle and foot. She states she noticed it a couple days ago. She does not recall any trauma. States he is walking and notes her ankles hurting. She did have pain and some bruising today which prompted her to come to the emergency room. She is on any blood thinners. Denies any abnormal bleeding or other bruising. Denies any new lightheadedness or dizziness. Was concerned this could be a DVT. Does not report any history of DVT. No other complaints or concerns at this time. [facility] Medical History Osteoporosis MGUS (monoclonal gammopathy of unknown significance) Cardiomyopathy Restrictive lung disease Arthritis Hypertension Home Medications ???Medication ???Instructions ???Recorded ???Last Taken ???Type multivitamin,tx-iron-m inerals 1 tab PO DAILY 05/23/18 Unknown History (Complete Multivitamin tablet) denosumab 60 mg/mL subcutaneous 60 mg subcut [id number] #1 mL 07/26/22 Unknown Rx syringe diltiazem HCl 180 mg 180 mg PO DAILY 09/09/22 Unknown History capsule,extended release 24 hr calcium 250 mg 1 tab PO BID 07/25/23 Unknown History (citrate)-ergocalcifer ol (D2) 2.5 mcg (100 unit) tablet (Bryn-Citrate) mometasone-formoterol HFA 100 2 inh inhalation BID 07/25/23 Unknown History mcg-5 mcg/actuation aerosol inhaler (Dulera) Allergy/AdvReac Type Severity Reaction Status Date / Time aspirin Allergy Intermediate lips swell Verified 03/26/24 16:06 amoxicillin Allergy Rash Verified 03/26/24 16:06 diclofenac Allergy Shortness Verified 03/26/24 16:06 of breath iodine Allergy Anaphylaxis Verified 03/26/24 16:06 metoprolol Allergy PT UNSURE Verified 03/26/24 16:06 OF REACTION shellfish derived Allergy Anaphylaxis Verified 03/26/24 16:06 Family History Mother Cancer colon Father Cancer lung Surgical History History of bunionectomy S/P wrist surgery Social History Smoking Status: Never smoker alcohol intake: current details: social substance use type: does not use caffeine: Yes what type of physical activity do you participate in: none seatbelt use: always do you feel safe at home: Yes additional social history: Ray- retired Patient is retired ROS ROS ED Constitutional Constitutional ED: Denies chills or fever(s) Respiratory/Chest Respiratory/Chest: Denies dyspnea Musculoskeletal Musculoskeletal: Reports other Details: Right ankle pain ; Denies myalgias Integumentary Reports other Details: Bruising to the right ankle Neurologic Neurologic: Denies headache(s), paresthesias or weakness Hematologic/Lymphatic Hematologic/Lymphatic: Denies easy bleeding or easy bruising EXAM Physical Exam Const Vital Signs: 03/26/24 16:04 Temperature 98 F Temperature Source Oral Pulse Rate 98 Respiratory Rate 18 Blood Pressure 171/107 H Blood Pressure Mean 128 Pulse Ox 98 Oxygen Delivery Method Room Air Positive well nourished and well developed General Appearance ED: well developed and NAD Chest Wall inspection of chest normal Resp normal respiratory effort Cardio regular rate and regular rhythm Extremity normal to inspection and full ROM Extremity Narrative: Slight amount of soft tissue swelling noted of the right lateral ankle with associated ecchymosis. No tense palpation over the medial or lateral malleoli. No tense palpation over the base of the fifth metatarsal. No tenderness palpation over the proximal fibula. Normal Cho test. No deformity of the ankle appreciated. No calf edema or palpable cords appreciated. Neuro oriented x3 Sensorium / Orientation: alert Motor Exam: Negative for general weakness Skin Skin Narrative: Ecchymosis noted to the lateral posterior right ankle and slightly into the heel. MDM MDM MDM Narrative Medical decision making narrative: Patient is evaluated for bruising and discomfort to her right ankle. Has an area of ecchymosis. Physical exam not consistent with DVT, dislocation or petechia. X-ray of the ankle reviewed by myself as well as radiology does not show any acute (more content not included)... Normal [facility] Office Visit Reporton 2023 Office Visit Report [facility] [address] [place] [address] OFFICE VISIT Date of Service: 03/25/24 MR#: [id number] Acct: [id number] Patient: VANDANA MITCHELL Rep #: [id number] : 1950 Provider: May Rivas Age/Sex: 73/F Location: [facility] [place] Status: Signed Intake Vital Signs 12/24/23 17:02 Height 5 ft 2 in Intake Visit Reasons: Prolia - Buy Bill Chief Complaint: Annual Allergies aspirin Allergy (Intermediate, Verified 12/24/23 17:02) lips swell amoxicillin Allergy (Verified 12/24/23 17:02) Rash diclofenac Allergy (Verified 12/24/23 17:02) Shortness of breath iodine Allergy (Verified 12/24/23 17:02) Anaphylaxis metoprolol Allergy (Verified 12/24/23 17:02) PT UNSURE OF REACTION shellfish derived Allergy (Verified 12/24/23 17:02) Anaphylaxis Have you fallen in the past year?: No Office Procedures Injections Procedure performed by: Boaz Terrell Lot number: [id number] 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: [employer] date: 08/02/26 Dose of injection: 1 mL Site of injection: Sub-Q Medication Given: Yes Is this a patient provided medication?: No Office Meds Prolia 60 mg/mL subcutaneous syringe Performing Provider: Gordy Null MD Performing Location: [facility] Administered by: Boaz Terrell RN on 03/25/24 11:13 Dose Route Admin Location Dispensed Lot Number Expiration Date ND Man ufacturer 60 mg subcut Left arm 1 mL [id number] 08/02/26 70887-574-34 [employer] Assessment and Plan Assessment and Plan (1) Osteoporosis: Status: Chronic Qualifiers: Osteoporosis type: age-related Presence of current pathological fracture: without current pathological fracture Qualified Code(s): M81.0 - Age-related osteoporosis without current pathological fracture Orders: Orders Prolia Injection 03/25/24 M81.0 - Age-related osteoporosis without current pathological fracture Clinical Quality Measures Falls Risk Screening/Assistive Devices Have you fallen in the past year?: No 03/26/24 0737 Date Gordy Null MD Cosigner Signature: Date (if applicable) CC: Normal [facility] [id number] 03-21-2024 [id number] Normal [facility] EGD Study observation Narrat iveon 03-21-2024 [facility] Gastrointestinal Endoscopy Patient Name: Vandana Mitchell [...] be scheduled. Procedure Code(s): --- Professional --- 13855, Esophagogastroduodenos copy, flexible, transoral; with biopsy, single or multiple G0500, Moderate sedation services provided by the same physician or other qualified health health care marketing manager performing a gastrointestinal endoscopic service that sedation supports, requiring the presence of an independent trained observer to assist in the monitoring of the patient's level of consciousness and physiological status; initial 15 minutes of intra-service time; patient age 4 ye (more content not included)... [employer] [facility] Flexible sigmoidoscopy study on 03-21-2024 [facility] Gastrointestinal Endoscopy Patient Name: Vandana Mitchell [...] be scheduled. Procedure Code(s): --- Professional --- 87208, Colonoscopy, flexible; diagnostic, including collection of specimen(s) by brushing or washing, when performed (separate procedure) G0500, Moderate sedation services provided by the same physician or other qualified health health care marketing manager performing a gastrointestinal endoscopic service that sedation supports, re (more content not included)... [employer] [facility] HISTORY PHYSICALon HISTORY PHYSICAL Normal [facility] NURSING PROGon 03-21-2024 NURSING PROG Normal [facility] NURSING PROG Normal [facility] No Panel Informationon 03-21 Radiology Study observation (narrative) [facility] SURGICAL PATHOLOGYon 024 CASE REPORT Normal [facility] Comment on above: Order Comment: Speci men Type: TISSUE SPECIMENOrdering Facility: [facility] Address: [address] [place] [address] Result Comment: Surg ical Pathology Report Case: [id number] Provider: Daryl Hamlin MD Collected: 03/21/2024 11:37 AMOrdering Location: Ambulatory Surgery Received: 03/21/2024 01:14 PMPathologist: Gamaliel Bear MDSpecimens: A) - Small Bowel, Duodenum, Biopsy B) - Stomach, Antrum, Biopsy, Antral bx for h/h C) - Esophagus, Distal, Biopsy D) - Esophagus, Mid, Biopsy Performed By: #### S ####[facility] LABORATORYCLIA [id number] [address] OF [facility] LABCLIA [id number] [address] FINAL DIAGNOSIS Normal [facility] Comment on above: Order Comment: Speci men Type: TISSUE SPECIMENOrdering Facility: [facility] Address: [address] [place] [address] Result Comment: A. D uodenum, biopsy:- Duodenal mucosa with no significant pathologic changes.B. Stomach, biopsy:- Fundic mucosa with no significant pathologic changes.C. Distal esophagus, biopsy:- Squamous mucosa with no significant pathologic changes.D. Mid esophagus, biopsy:- Squamous mucosa with no significant pathologic changes. Performed By: #### S ####[facility] [employer] [facility] LABORATORYCLIA [id number] [address] LABCLIA [id number] [place] [address] [place] FINAL PERFORMING LAB [facility] Comment on above: Order Comment: Speci men Type: TISSUE SPECIMENOrdering Facility: [facility] Address: [address] [place] [address] Result Comment: Diag nostic interpretation performed at [facility], [address], [place] [address] CLIA# [id number] Director: Rosalind Loredo M.D. Performed By: #### S ####[facility]ITAL[facility] [id number] [address] LABCLIA [id number] [address] [place] GROSS DESCRIPTION Normal [facility] Comment on above: Order Comment: Speci men Type: TISSUE SPECIMENOrdering Facility: [facility] Address: [address] [place] [address] Result Comment: A. S mall Bowel, Duodenum, BiopsyReceived in formalin is one piece of moeller, soft tissue measuring 0.5 x 0.3 x 0.2 cm. Totally submitted in one cassette.B. Stomach, Antrum, BiopsyReceived in formalin are two pieces of moeller, soft tissue aggregating to 0.4 x 0.4 x 0.2 cm. Totally submitted in one cassette.C. Esophagus, Distal, BiopsyReceived in formalin are two pieces of moeller-pink to red, soft tissue aggregating to 1.0 x 0.3 x 0.2 cm. Totally submitted in one cassette.D. Esophagus, Mid, BiopsyReceived in formalin is one piece of moeller-white, soft tissue measuring 0.6 x 0.4 x 0.1 cm. Totally submitted in one cassette.Gross examination performed at [facility], [address] [place] [id number] 03/21/2024 10:42 PM Performed By: #### S ####[facility] LABORATORYCLIA [id number] [place] [id number] [place] [facility] LABCLIA [id number] [address] [place] Upper GI endoscopyon 024 Upper GI endoscopy Normal [facility] 36on 03-19-2024 36 Patient notified of the message. Patient acknowledged. Normal [facility] 36 Ok to have colonosco py from urogyn postop standpoint. Marie Alston MD [facility] 36 Name of caller: David evie Contact phone number: [phone] Relationship to Patient: patient Provider: Gamaliel Practice: [facility] Chief Complaint/Reason for Call: Pt wants to know if prolapse surgery will interfere with her colonoscopy she is having done on 03.21. Please call to let her know Best time of day caller can be reached: anytime Patient advised that office/PCP has 24-48 business hours to return their call: yes Normal [facility] CNPNon 03-19-2024 CNPN Normal [facility] CNPNon 03-18-2024 CNPN Normal [facility] CNOVon 03-12-2024 CNOV Normal [facility]20[facility] CNPN Normal [facility] CBC W Auto Differential pane l (Bld)on 03-08-2024 Basophils (Bld) [#/Vol] 0.10 10*3/uL [facility] Basophils/100 WBC (Bld) 1.7 % [facility] Differential cell count method Nom (Bld) Auto [facility] Eosinophils (Bld) [#/Vol] 0.18 10*3/uL [facility] Eosinophils/100 WBC (Bld) 3.0 % [facility] Erythrocyte distribution width (RBC) [Ratio] 14.7 % 11.5 - 15.0 % [facility] Hematocrit (Bld) [Volume fraction] 35.9 % Low 36.0 - 46.0 % [facility] Hemoglobin (Bld) [Mass/Vol] 11.0 g/dL Low 11.5 - 15.5 g/dL [facility] Immature granulocytes (Bld) [#/Vol] NINF [facility] Immature granulocytes/100 WBC (Bld) 0.3 % [facility] Interpretation and review of laboratory results Abnormal [facility] Lymphocytes (Bld) [#/Vol] 1.02 10*3/uL [facility] Lymphocytes/100 WBC (Bld) 17.0 % [facility] MCH (RBC) [Entitic mass] 25.4 pg Low 26.0 - 34.0 pg [facility] MCHC (RBC) [Mass/Vol] 30.6 g/dL 30.5 - 36.0 g/dL [facility] MCV (RBC) [Entitic vol] 82.9 fL 80.0 - 100.0 fL [facility] Monocytes (Bld) [#/Vol] 0.69 10*3/uL [facility] Monocytes/100 WBC (Bld) 11.5 % [facility] Neutrophils (Bld) [#/Vol] 3.98 10*3/uL [facility] Neutrophils/100 WBC (Bld) 66.5 % [facility] Nucleated RBC (Bld) [#/Vol] [facility] Nucleated RBC/100 WBC (Bld) [Ratio] 0.0 % /100 WBC [facility] Platelet mean volume (Bld) [Entitic vol] 10.9 fL 9.0 - 12.7 fL [facility] Platelets (Bld) [#/Vol] 378 10*3/uL [facility] RBC (Bld) [#/Vol] 4.33 10*6/uL 3.90 - 5.2 0 m/uL [facility] WBC (Bld) [#/Vol] 5.99 10*3/uL [facility] Basophils (Bld) [#/Vol] 0.10 10*3/uL Normal <0.11 [facility] Comment on above: Order Comment: Speci men Type: BLOOD SPECIMENOrdering Facility: [facility] Address: [address] [place] [address] Performed By: #### 5 7021-8 ####[facility] LABCLIA [id number] [place] [address] [place] Basophils/100 WBC (Bld) 1.7 % Normal [facility] Comment on above: Order Comment: Speci men Type: BLOOD SPECIMENOrdering Facility: [facility] Address: [address] [place] [address] Performed By: #### 5 7021-8 ####[facility] LABCLIA [id number] [place] [address] [place] Differential cell count method Nom (Bld) Auto Normal [facility] Comment on above: Order Comment: Speci men Type: BLOOD SPECIMENOrdering Facility: [facility] Address: [address] [place] [address] Performed By: #### 5 7021-8 ####[facility] LABCLIA [id number] [place] [address] [place] Eosinophils (Bld) [#/Vol] 0.18 10*3/uL Normal <0.46 [facility] Comment on above: Order Comment: Speci men Type: BLOOD SPECIMENOrdering Facility: [facility] Address: [address] [place] [address] Performed By: #### 5 7021-8 ####[facility] LABIA [id number] [place] [address] [place] Eosinophils/100 WBC (Bld) 3.0 % Normal [facility] Comment on above: Order Comment: Speci men Type: BLOOD SPECIMENOrdering Facility: [facility] Address: [address] [place] [address] Performed By: #### 5 7021-8 ####[facility] LABCLIA [id number] [place] [address] [place] Erythrocyte distribution width (RBC) [Ratio] 14.7 % Normal 11.5-15.0 [facility] Comment on above: Order Comment: Speci men Type: BLOOD SPECIMENOrdering Facility: [facility] Address: [address] [place] [address] Performed By: #### 5 7021-8 ####[facility] LABCLIA [id number] [place] [address] [place] Hematocrit (Bld) [Volume fraction] 35.9 % Low 36.0-46.0 [facility] Comment on above: Order Comment: Speci men Type: BLOOD SPECIMENOrdering Facility: [facility] Address: [address] [place] [address] Performed By: #### 5 7021-8 ####[facility] LABCLIA [id number] [place] [address] [place] Hemoglobin (Bld) [Mass/Vol] 11.0 g/dL Low 11.5-15.5 [facility] Comment on above: Order Comment: Speci men Type: BLOOD SPECIMENOrdering Facility: [facility] Address: [address] [place] [address] Performed By: #### 5 7021-8 ####[facility] LABCLIA [id number] [place] [address] [place] Immature granulocytes (Bld) [#/Vol] 10*3/uL Normal <0.10 [facility] Comment on above: Order Comment: Speci men Type: BLOOD SPECIMENOrdering Facility: [facility] Address: [address] [place] [address] Performed By: #### 5 7021-8 ####[facility] LABCLIA [id number] [place] [address] [place] Immature granulocytes/100 WBC (Bld) 0.3 % Normal [facility] Comment on above: Order Comment: Speci men Type: BLOOD SPECIMENOrdering Facility: [facility] Address: [address] [place] [address] Performed By: #### 5 7021-8 ####[facility] LABCLIA [id number] [place] [address] [place] Lymphocytes (Bld) [#/Vol] 1.02 10*3/uL Normal 1.00-4.00 [facility] Comment on above: Order Comment: Speci men Type: BLOOD SPECIMENOrdering Facility: [facility] Address: [address] [place] [address] Performed By: #### 5 7021-8 ####[facility] LABCLIA [id number] [place] [address] [place] Lymphocytes/100 WBC (Bld) 17.0 % Normal [facility] Comment on above: Order Comment: Speci men Type: BLOOD SPECIMENOrdering Facility: [facility] Address: [address] [place] [address] Performed By: #### 5 7021-8 ####[facility] LABCLIA [id number] [place] [address] [place] MCH (RBC) [Entitic mass] 25.4 pg Low 26.0-34.0 [facility] Comment on above: Order Comment: Speci men Type: BLOOD SPECIMENOrdering Facility: [facility] Address: [address] [place] [address] Performed By: #### 5 7021-8 ####[facility] LABCLIA [id number] [place] [address] [place] MCHC (RBC) [Mass/Vol] 30.6 g/dL Normal 30.5-36.0 [facility] Comment on above: Order Comment: Speci men Type: BLOOD SPECIMENOrdering Facility: [facility] Address: [address] [place] [address] Performed By: #### 5 7021-8 ####[facility] LABCLIA [id number] [place] [address] [place] MCV (RBC) [Entitic vol] 82.9 fL Normal 80.0-100.0 [facility] Comment on above: Order Comment: Speci men Type: BLOOD SPECIMENOrdering Facility: [facility] Address: [address] [place] [address] Performed By: #### 5 7021-8 ####[facility] LABCLIA [id number] [place] [address] [place] Monocytes (Bld) [#/Vol] 0.69 10*3/uL Normal <0.87 [facility] Comment on above: Order Comment: Speci men Type: BLOOD SPECIMENOrdering Facility: [facility] Address: [address] [place] [address] Performed By: #### 5 7021-8 ####[facility] LABCLIA [id number] [place] [address] [place] Monocytes/100 WBC (Bld) 11.5 % Normal [facility] Comment on above: Order Comment: Speci men Type: BLOOD SPECIMENOrdering Facility: [facility] Address: [address] [place] [address] Performed By: #### 5 7021-8 ####[facility] LABCLIA [id number] [place] [address] [place] Neutrophils (Bld) [#/Vol] 3.98 10*3/uL Normal 1.45-7.50 [facility] Comment on above: Order Comment: Speci men Type: BLOOD SPECIMENOrdering Facility: [facility] Address: [address] [place] [address] Performed By: #### 5 7021-8 ####[facility] LABCLIA [id number] [place] [address] [place] Neutrophils/100 WBC (Bld) 66.5 % Normal [facility] Comment on above: Order Comment: Speci men Type: BLOOD SPECIMENOrdering Facility: [facility] Address: [address] [place] [address] Performed By: #### 5 7021-8 ####[facility] LABCLIA [id number] [place] [address] [place] Nucleated RBC (Bld) [#/Vol] 10*3/uL Normal <0.01 [facility] Comment on above: Order Comment: Speci men Type: BLOOD SPECIMENOrdering Facility: [facility] Address: [address] [place] [address] Performed By: #### 5 7021-8 ####[facility] LABIA [id number] [place] [address] [place] Nucleated RBC/100 WBC (Bld) [Ratio] 0.0 /100 WBC Normal [facility] Comment on above: Order Comment: Speci men Type: BLOOD SPECIMENOrdering Facility: [facility] Address: [address] [place] [address] Performed By: #### 5 7021-8 ####[facility]BR[facility] [id number] [place] [address] [place] Platelet mean volume (Bld) [Entitic vol] 10.9 fL Normal 9.0-12.7 [facility] Comment on above: Order Comment: Speci men Type: BLOOD SPECIMENOrdering Facility: [facility] Address: [address] [place] [address] Performed By: #### 5 7021-8 ####[facility] [id number] [place] [address] [place] Platelets (Bld) [#/Vol] 378 10*3/uL Normal 150-400 [facility] Comment on above: Order Comment: Speci men Type: BLOOD SPECIMENOrdering Facility: [facility] Address: [address] [place] [address] Performed By: #### 5 7021-8 ####[facility] [id number] [place] [address] [place] RBC (Bld) [#/Vol] 4.33 10*6/uL Normal 3.90-5.20 [facility] Comment on above: Order Comment: Speci men Type: BLOOD SPECIMENOrdering Facility: [facility] Address: [address] [place] [address] Performed By: #### 5 7021-8 ####[facility] LABCL[facility] [id number] [place] [address] [place] WBC (Bld) [#/Vol] 5.99 10*3/uL Normal 3.70-11.00 [facility] Comment on above: Order Comment: Speci men Type: BLOOD SPECIMENOrdering Facility: [facility] Address: [address] [place] [address] Performed By: #### 5 7021-8 ####[facility] [id number] [place] [address] [place] Iron and Iron binding capaci ty panelon 03-08-2024 Interpretation and review of laboratory results Abnormal [facility] Iron [Mass/Vol] 46 ug/dL 41 - 186 ug/dL [facility] Iron binding capacity [Mass/Vol] 346 ug/dL 232 - 386 ug/dL [facility] Iron/TIBC [Molar ratio] 13.3 % Low 15.0 - 57.0 % [facility] Iron [Mass/Vol] 46 ug/dL Normal 41-186 [facility] Comment on above: Order Comment: Speci men Type: BLOOD SPECIMENOrdering Facility: [facility] Address: [address] [place] [address] Performed By: #### 5 0190-8 ####[facility] [id number] [place] [address] [place] Iron binding capacity [Mass/Vol] 346 ug/dL Normal 232-386 [facility] Comment on above: Order Comment: Speci men Type: BLOOD SPECIMENOrdering Facility: [facility] Address: [address] [place] [address] Performed By: #### 5 0190-8 ####[facility] [id number] [place] [address] [place] Iron/TIBC [Molar ratio] 13.3 % Low 15.0-57.0 [facility] Comment on above: Order Comment: Speci men Type: BLOOD SPECIMENOrdering Facility: [facility] Address: [address] [place] [address] Performed By: #### 5 0190-8 ####[facility] [id number] [place] [address] [place] CNOVon 03-05-2024 CNOV Normal [facility] US CAROTID ARTERIES MARC VAS LABon 02-27-2024 [facility] LAB Normal [facility] CNPNon 02-21-2024 CNPN Normal [facility] CNPNon 02-19-2024 CNPN Normal [facility] CBC W Auto Differential pane l (Bld)on 02-16-2024 Basophils (Bld) [#/Vol] 0.09 10*3/uL Normal <0.11 [facility] Comment on above: Order Comment: Speci men Type: BLOOD SPECIMENOrdering Facility: [facility] Address: [address] [place] [address] Performed By: #### 5 7021-8 ####[facility]CL[facility] [id number] [place] [address] [place] Basophils/100 WBC (Bld) 1.4 % Normal [facility] Comment on above: Order Comment: Speci men Type: BLOOD SPECIMENOrdering Facility: [facility] Address: [address] [place] [address] Performed By: #### 5 7021-8 ####[facility]CL[facility] [id number] [place] [address] [place] Differential cell count method Nom (Bld) Auto Normal [facility] Comment on above: Order Comment: Speci men Type: BLOOD SPECIMENOrdering Facility: [facility] Address: [address] [place] [address] Performed By: #### 5 7021-8 ####[facility]CL[facility] [id number] [place] [address] [place] Eosinophils (Bld) [#/Vol] 0.28 10*3/uL Normal <0.46 [facility] Comment on above: Order Comment: Speci men Type: BLOOD SPECIMENOrdering Facility: [facility] Address: [address] [place] [address] Performed By: #### 5 7021-8 ####[facility] LABCL[facility] [id number] [place] [address] [place] Eosinophils/100 WBC (Bld) 4.2 % Normal [facility] Comment on above: Order Comment: Speci men Type: BLOOD SPECIMENOrdering Facility: [facility] Address: [address] [place] [address] Performed By: #### 5 7021-8 ####[facility] LABIA [id number] [place] [address] [place] Erythrocyte distribution width (RBC) [Ratio] 14.2 % Normal 11.5-15.0 [facility] Comment on above: Order Comment: Speci men Type: BLOOD SPECIMENOrdering Facility: [facility] Address: [address] [place] [address] Performed By: #### 5 7021-8 ####[facility] LABIA [id number] [place] [address] [place] Hematocrit (Bld) [Volume fraction] 34.6 % Low 36.0-46.0 [facility] Comment on above: Order Comment: Speci men Type: BLOOD SPECIMENOrdering Facility: [facility] Address: [address] [place] [address] Performed By: #### 5 7021-8 ####[facility] LABIA [id number] [place] [address] [place] Hemoglobin (Bld) [Mass/Vol] 10.8 g/dL Low 11.5-15.5 [facility] Comment on above: Order Comment: Speci men Type: BLOOD SPECIMENOrdering Facility: [facility] Address: [address] [place] [address] Performed By: #### 5 7021-8 ####[facility] [id number] [place] [address] [place] Immature granulocytes (Bld) [#/Vol] 10*3/uL Normal <0.10 [facility] Comment on above: Order Comment: Speci men Type: BLOOD SPECIMENOrdering Facility: [facility] Address: [address] [place] [address] Performed By: #### 5 7021-8 ####[facility] [id number] [place] [address] [place] Immature granulocytes/100 WBC (Bld) 0.3 % Normal [facility] Comment on above: Order Comment: Speci men Type: BLOOD SPECIMENOrdering Facility: [facility] Address: [address] [place] [address] Performed By: #### 5 7021-8 ####[facility]CL[facility] [id number] [place] [address] [place] Lymphocytes (Bld) [#/Vol] 1.11 10*3/uL Normal 1.00-4.00 [facility] Comment on above: Order Comment: Speci men Type: BLOOD SPECIMENOrdering Facility: [facility] Address: [address] [place] [address] Performed By: #### 5 7021-8 ####[facility] LABCL[facility] [id number] [place] [address] [place] Lymphocytes/100 WBC (Bld) 16.8 % Normal [facility] Comment on above: Order Comment: Speci men Type: BLOOD SPECIMENOrdering Facility: [facility] Address: [address] [place] [address] Performed By: #### 5 7021-8 ####[facility]CL[facility] [id number] [place] [address] [place] MCH (RBC) [Entitic mass] 25.2 pg Low 26.0-34.0 [facility] Comment on above: Order Comment: Speci men Type: BLOOD SPECIMENOrdering Facility: [facility] Address: [address] [place] [address] Performed By: #### 5 7021-8 ####[facility]CL[facility] [id number] [place] [address] [place] MCHC (RBC) [Mass/Vol] 31.2 g/dL Normal 30.5-36.0 [facility] Comment on above: Order Comment: Speci men Type: BLOOD SPECIMENOrdering Facility: [facility] Address: [address] [place] [address] Performed By: #### 5 7021-8 ####[facility] LABIA [id number] [place] [address] [place] MCV (RBC) [Entitic vol] 80.7 fL Normal 80.0-100.0 [facility] Comment on above: Order Comment: Speci men Type: BLOOD SPECIMENOrdering Facility: [facility] Address: [address] [place] [address] Performed By: #### 5 7021-8 ####[facility] LABIA [id number] [place] [address] [place] Monocytes (Bld) [#/Vol] 0.69 10*3/uL Normal <0.87 [facility] Comment on above: Order Comment: Speci men Type: BLOOD SPECIMENOrdering Facility: [facility] Address: [address] [place] [address] Performed By: #### 5 7021-8 ####[facility] LABIA [id number] [place] [address] [place] Monocytes/100 WBC (Bld) 10.5 % Normal [facility] Comment on above: Order Comment: Speci men Type: BLOOD SPECIMENOrdering Facility: [facility] Address: [address] [place] [address] Performed By: #### 5 7021-8 ####[facility] LABCL[facility] [id number] [place] [address] [place] Neutrophils (Bld) [#/Vol] 4.41 10*3/uL Normal 1.45-7.50 [facility] Comment on above: Order Comment: Speci men Type: BLOOD SPECIMENOrdering Facility: [facility] Address: [address] [place] [address] Performed By: #### 5 7021-8 ####[facility]CL[facility] [id number] [place] [address] [place] Neutrophils/100 WBC (Bld) 66.8 % Normal [facility] Comment on above: Order Comment: Speci men Type: BLOOD SPECIMENOrdering Facility: [facility] Address: [address] [place] [address] Performed By: #### 5 7021-8 ####[facility]CL[facility] [id number] [place] [address] [place] Nucleated RBC (Bld) [#/Vol] 10*3/uL Normal <0.01 [facility] Comment on above: Order Comment: Speci men Type: BLOOD SPECIMENOrdering Facility: [facility] Address: [address] [place] [address] Performed By: #### 5 7021-8 ####[facility] LABCLIA [id number] [place] [address] [place] Nucleated RBC/100 WBC (Bld) [Ratio] 0.0 /100 WBC Normal [facility] Comment on above: Order Comment: Speci men Type: BLOOD SPECIMENOrdering Facility: [facility] Address: [address] [place] [address] Performed By: #### 5 7021-8 ####[facility] LABCL[facility] [id number] [place] [address] [place] Platelet mean volume (Bld) [Entitic vol] 11.1 fL Normal 9.0-12.7 [facility] Comment on above: Order Comment: Speci men Type: BLOOD SPECIMENOrdering Facility: [facility] Address: [address] [place] [address] Performed By: #### 5 7021-8 ####[facility] LABCL[facility] [id number] [place] [address] [place] Platelets (Bld) [#/Vol] 317 10*3/uL Normal 150-400 [facility] Comment on above: Order Comment: Speci men Type: BLOOD SPECIMENOrdering Facility: [facility] Address: [address] [place] [address] Performed By: #### 5 7021-8 ####[facility] LABIA [id number] [place] [address] [place] RBC (Bld) [#/Vol] 4.29 10*6/uL Normal 3.90-5.20 [facility] Comment on above: Order Comment: Speci men Type: BLOOD SPECIMENOrdering Facility: [facility] Address: [address] [place] [address] Performed By: #### 5 7021-8 ####[facility] LABIA [id number] [place] [address] [place] WBC (Bld) [#/Vol] 6.60 10*3/uL Normal 3.70-11.00 [facility] Comment on above: Order Comment: Speci men Type: BLOOD SPECIMENOrdering Facility: [facility] Address: [address] [place] [address] Performed By: #### 5 7021-8 ####[facility] LABCLIA [id number] [place] [address] [place] Ferritin SerPl-ncon 2023 Ferritin [Mass/Vol] 120.0 ng/mL Normal 14.7-205.1 [facility] Comment on above: Order Comment: Speci men Type: BLOOD SPECIMENOrdering Facility: [facility] Address: [address] [place] [address] Performed By: #### 2 132-9, 2284-8, 2276-4, 19303-0 ####[facility] LABCL[facility] [id number] [place] [address] [place] Folate SerPl-ncon 02-16-20 Folate [Mass/Vol] ng/mL Normal >4.7 [facility] Comment on above: Order Comment: Speci men Type: BLOOD SPECIMENOrdering Facility: [facility] Address: [address] [place] [address] Result Comment: A re sult of > 20 ng/mL is not necessarily indicative of a pathologic or treatable condition: it reflects a limitation of the test methodology.Assay reference range: 4.8 to 24.2 ng/mL. Suitable for detection of folate deficiency.Reference:Folate III (Folate III) [package insert V 1.0 Thai]. [facility], [place], [place]: April 2015. Performed By: #### 2 132-9, 2284-8, 2276-4, 37666-9 ####[facility] LABCLIA [id number] [place] [address] [place] Hemoccult Stl Ql IAon 2023 Lower GI hemoglobin IA Ql (Stl) Positive Abnormal Negative [facility] Comment on above: Order Comment: Speci men Type: STOOL SPECIMENOrdering Facility: [facility] Address: [address] [place] [address] Performed By: #### 2 9771-3 ####[facility] LABCLIA [id number] [place] [id number] [place] Iron and Iron binding capaci ty panelon 02-16-2024 Iron [Mass/Vol] 36 ug/dL Low 41-186 [facility] Comment on above: Order Comment: Speci men Type: BLOOD SPECIMENOrdering Facility: [facility] Address: [address] [place] [address] Performed By: #### 2 132-9, 2284-8, 6-4, 30601-8 ####[facility] LABCLIA [id number] [address] [address] [place] Iron binding capacity [Mass/Vol] 383 ug/dL Normal 232-386 [facility] Comment on above: Order Comment: Speci men Type: BLOOD SPECIMENOrdering Facility: [facility] Address: [address] [place], [place] [address] Performed By: #### 2 132-9, 2284-8, 6-4, 67385-5 ####[facility] LABCLIA [id number] [address] [address] [place] Iron/TIBC [Molar ratio] 9.4 % Low 15.0-57.0 [facility] Comment on above: Order Comment: Speci men Type: BLOOD SPECIMENOrdering Facility: [facility] Address: [address] [place] [address] Performed By: #### 2 132-9, 2284-8, 6-4, 03262-8 ####[facility] LABCLIA [id number] [address] [address] [place] Vit B12 [facility] 024 Cobalamin (Vitamin B12) [Mass/Vol] 846 pg/mL Normal 232-1245 [facility] Comment on above: Order Comment: Speci men Type: BLOOD SPECIMENOrdering Facility: [facility] Address: [address] [place], [place] [address] Performed By: #### 2 132-9, 2284-8, 6-4, 60327-5 ####[facility] LABCLIA [id number] [address] [address] [place] CNPNon 02-14-2024 CNPN Normal [facility] CBC W Auto Differential pane l (Bld)on 02-13-2024 Basophils (Bld) [#/Vol] 0.13 10*3/uL High <0.11 [facility] Comment on above: Order Comment: Speci men Type: BLOOD SPECIMENOrdering Facility: [facility] Address: [address] [place] [address] Performed By: #### 5 7021-8 ####[facility] LABCLIA [id number] [facility] [place] [address] [place] Basophils/100 WBC (Bld) 2.0 % Normal [facility] Comment on above: Order Comment: Speci men Type: BLOOD SPECIMENOrdering Facility: [facility] Address: [address] [place] [address] Performed By: #### 5 7021-8 ####[facility] LABCLIA [id number] [place] [address] [place] Differential cell count method Nom (Bld) Auto Normal [facility] Comment on above: Order Comment: Speci men Type: BLOOD SPECIMENOrdering Facility: [facility] Address: [address] [place] [address] Performed By: #### 5 7021-8 ####[facility] LABCL[facility] [id number] [place] [address] [place] Eosinophils (Bld) [#/Vol] 0.46 10*3/uL High <0.46 [facility] Comment on above: Order Comment: Speci men Type: BLOOD SPECIMENOrdering Facility: [facility] Address: [address] [place] [address] Performed By: #### 5 7021-8 ####[facility] LABCLIA [id number] [place] [address] [place] Eosinophils/100 WBC (Bld) 6.9 % Normal [facility] Comment on above: Order Comment: Speci men Type: BLOOD SPECIMENOrdering Facility: [facility] Address: [address] [place] [address] Performed By: #### 5 7021-8 ####[facility] LABCLIA [id number] [place] [address] [place] Erythrocyte distribution width (RBC) [Ratio] 13.9 % Normal 11.5-15.0 [facility] Comment on above: Order Comment: Speci men Type: BLOOD SPECIMENOrdering Facility: [facility] Address: [address] [place] [address] Performed By: #### 5 7021-8 ####[facility] LABIA [id number] [place] [address] [place] Hematocrit (Bld) [Volume fraction] 35.7 % Low 36.0-46.0 [facility] Comment on above: Order Comment: Speci men Type: BLOOD SPECIMENOrdering Facility: [facility] Address: [address] [place] [address] Performed By: #### 5 7021-8 ####[facility] LABIA [id number] [place] [address] [place] Hemoglobin (Bld) [Mass/Vol] 11.1 g/dL Low 11.5-15.5 [facility] Comment on above: Order Comment: Speci men Type: BLOOD SPECIMENOrdering Facility: [facility] Address: [address] [place] [address] Performed By: #### 5 7021-8 ####[facility] LABIA [id number] [place] [address] [place] Immature granulocytes (Bld) [#/Vol] 0.03 10*3/uL Normal <0.10 [facility] Comment on above: Order Comment: Speci men Type: BLOOD SPECIMENOrdering Facility: [facility] Address: [address] [place] [address] Performed By: #### 5 7021-8 ####[facility] LABIA [id number] [place] [address] [place] Immature granulocytes/100 WBC (Bld) 0.5 % Normal [facility] Comment on above: Order Comment: Speci men Type: BLOOD SPECIMENOrdering Facility: [facility] Address: [address] [place] [address] Performed By: #### 5 7021-8 ####[facility] LABCLIA [id number] [place] [address] [place] Lymphocytes (Bld) [#/Vol] 1.13 10*3/uL Normal 1.00-4.00 [facility] Comment on above: Order Comment: Speci men Type: BLOOD SPECIMENOrdering Facility: [facility] Address: [address] [place] [address] Performed By: #### 5 7021-8 ####[facility] LABCLIA [id number] [place] [address] [place] Lymphocytes/100 WBC (Bld) 17.0 % Normal [facility] Comment on above: Order Comment: Speci men Type: BLOOD SPECIMENOrdering Facility: [facility] Address: [address] [place] [address] Performed By: #### 5 7021-8 ####[facility] LABCLIA [id number] [place] [address] [place] MCH (RBC) [Entitic mass] 25.3 pg Low 26.0-34.0 [facility] Comment on above: Order Comment: Speci men Type: BLOOD SPECIMENOrdering Facility: [facility] Address: [address] [place] [address] Performed By: #### 5 7021-8 ####[facility] LABCLIA [id number] [place] [address] [place] MCHC (RBC) [Mass/Vol] 31.1 g/dL Normal 30.5-36.0 [facility] Comment on above: Order Comment: Speci men Type: BLOOD SPECIMENOrdering Facility: [facility] Address: [address] [place] [address] Performed By: #### 5 7021-8 ####[facility] LABCLIA [id number] [place] [address] [place] MCV (RBC) [Entitic vol] 81.5 fL Normal 80.0-100.0 [facility] Comment on above: Order Comment: Speci men Type: BLOOD SPECIMENOrdering Facility: [facility] Address: [address] [place] [address] Performed By: #### 5 7021-8 ####[facility] LABCLIA [id number] [place] [address] [place] Monocytes (Bld) [#/Vol] 0.80 10*3/uL Normal <0.87 [facility] Comment on above: Order Comment: Speci men Type: BLOOD SPECIMENOrdering Facility: [facility] Address: [address] [place] [address] Performed By: #### 5 7021-8 ####[facility] LABCLIA [id number] [place] [address] [place] Monocytes/100 WBC (Bld) 12.0 % Normal [facility] Comment on above: Order Comment: Speci men Type: BLOOD SPECIMENOrdering Facility: [facility] Address: [address] [place] [address] Performed By: #### 5 7021-8 ####[facility] LABCLIA [id number] [place] [address] [place] Neutrophils (Bld) [#/Vol] 4.11 10*3/uL Normal 1.45-7.50 [facility] Comment on above: Order Comment: Speci men Type: BLOOD SPECIMENOrdering Facility: [facility] Address: [address] [place] [address] Performed By: #### 5 7021-8 ####[facility] LABCLIA [id number] [place] [address] [place] Neutrophils/100 WBC (Bld) 61.6 % Normal [facility] Comment on above: Order Comment: Speci men Type: BLOOD SPECIMENOrdering Facility: [facility] Address: [address] [place] [address] Performed By: #### 5 7021-8 ####[facility] LABCLIA [id number] [place] [address] [place] Nucleated RBC (Bld) [#/Vol] 10*3/uL Normal <0.01 [facility] Comment on above: Order Comment: Speci men Type: BLOOD SPECIMENOrdering Facility: [facility] Address: [address] [place] [address] Performed By: #### 5 7021-8 ####[facility] LABCLIA [id number] [place] [address] [place] Nucleated RBC/100 WBC (Bld) [Ratio] 0.0 /100 WBC Normal [facility] Comment on above: Order Comment: Speci men Type: BLOOD SPECIMENOrdering Facility: [facility] Address: [address] [place] [address] Performed By: #### 5 7021-8 ####[facility] LABCL[facility] [id number] [place] [address] [place] Platelet mean volume (Bld) [Entitic vol] 11.0 fL Normal 9.0-12.7 [facility] Comment on above: Order Comment: Speci men Type: BLOOD SPECIMENOrdering Facility: [facility] Address: [address] [place] [address] Performed By: #### 5 7021-8 ####[facility] LABCLIA [id number] [place] [address] [place] Platelets (Bld) [#/Vol] 312 10*3/uL Normal 150-400 [facility] Comment on above: Order Comment: Speci men Type: BLOOD SPECIMENOrdering Facility: [facility] Address: [address] [place] [address] Performed By: #### 5 7021-8 ####[facility] LABIA [id number] [place] [address] [place] RBC (Bld) [#/Vol] 4.38 10*6/uL Normal 3.90-5.20 [facility] Comment on above: Order Comment: Speci men Type: BLOOD SPECIMENOrdering Facility: [facility] Address: [address] [place] [address] Performed By: #### 5 7021-8 ####[facility] LABIA [id number] [place] [address] [place] WBC (Bld) [#/Vol] 6.66 10*3/uL Normal 3.70-11.00 [facility] Comment on above: Order Comment: Speci men Type: BLOOD SPECIMENOrdering Facility: [facility] Address: [address] [place] [address] Performed By: #### 5 7021-8 ####[facility] LABIA [id number] [place] [address] [place] Comprehensive metabolic 2000 panelon 02-13-2024 Albumin [Mass/Vol] 4.2 g/dL Normal 3.9-4.9 [facility] Comment on above: Order Comment: Speci men Type: BLOOD SPECIMENOrdering Facility: [facility] [facility] Address: [address] [place] [address] Performed By: #### 2 4323-8, 57001-9, 3016-3 ####[facility] LABIA [id number] [place] [address] [place] ALP [Catalytic activity/Vol] 78 U/L Normal 34-123 [facility] Comment on above: Order Comment: Speci men Type: BLOOD SPECIMENOrdering Facility: [facility] Address: [address] [place], [place] [address] Performed By: #### 2 4323-8, 52014-4, 3016-3 ####[facility] LABCLIA [id number] [address] [address] [place] ALT [Catalytic activity/Vol] 13 U/L Normal 7-38 [facility] Comment on above: Order Comment: Speci men Type: BLOOD SPECIMENOrdering Facility: [facility] Address: [address] [place] [address] Performed By: #### 2 4323-8, 71258-4, 3016-3 ####[facility] LABCLIA [id number] [place] [address] [place] Anion gap [Moles/Vol] 10 mmol/L Normal 8-15 [facility] Comment on above: Order Comment: Speci men Type: BLOOD SPECIMENOrdering Facility: [facility] Address: [address] [place] [address] Performed By: #### 2 4323-8, 12891-4, 3016-3 ####[facility] LABCLIA [id number] [place] [address] [place] AST [Catalytic activity/Vol] 18 U/L Normal 13-35 [facility] Comment on above: Order Comment: Speci men Type: BLOOD SPECIMENOrdering Facility: [facility] Address: [address] [place], [place] [address] Performed By: #### 2 4323-8, 11775-9, 3016-3 ####[facility] LABCLIA [id number] [place] [id number] [place] Bilirubin [Mass/Vol] 0.2 mg/dL Normal 0.2-1.3 [facility] Comment on above: Order Comment: Speci men Type: BLOOD SPECIMENOrdering Facility: [facility] Address: [address] [place], [place] [address] Performed By: #### 2 4323-8, 87672-8, 3016-3 ####[facility] LABCLIA [id number] [address] [address] [place] Calcium [Mass/Vol] 10.1 mg/dL Normal 8.5-10.2 [facility] Comment on above: Order Comment: Speci men Type: BLOOD SPECIMENOrdering Facility: [facility] Address: [address] [place] [address] Performed By: #### 2 4323-8, 48935-1, 3015-3 ####[facility] LABCLIA [id number] [place] [address] [place] Chloride [Moles/Vol] 100 mmol/L Normal 98-107 [facility] Comment on above: Order Comment: Speci men Type: BLOOD SPECIMENOrdering Facility: [facility] Address: [address] [place] [address] Performed By: #### 2 4323-8, 78028-5, 3 ####[facility] LABCLIA [id number] [place] [address] [place] CO2 [Moles/Vol] 30 mmol/L Normal 22-30 [facility] Comment on above: Order Comment: Speci men Type: BLOOD SPECIMENOrdering Facility: [facility] Address: [address] [place] [address] Performed By: #### 2 4323-8, 42450-3, 3 ####[facility] LABCLIA [id number] [place] [id number] [place] Creatinine [Mass/Vol] 0.66 mg/dL Normal 0.58-0.96 [facility] Comment on above: Order Comment: Speci men Type: BLOOD SPECIMENOrdering Facility: [facility] Address: [address] [place], [place] [address] Performed By: #### 2 4323-8, 22214-8, 6-3 ####[facility] LABCLIA [id number] [place] [address] [place] Creatinine and Glomerular filtration rate.predicted panel (S/P/Bld) 92 mL/min/1.73m??? Normal >=60 [facility] Comment on above: Order Comment: Negin parson Type: BLOOD SPECIMENOrdering Facility: [facility] Address: [address] [place] [address] Result Comment: Betsy mated Glomerular Filtration Rate [...] actual GFR. Performed By: #### 2 4323-8, 24469-6, 3016-3 ####[facility] [id number] [place] [address] [place] Glucose [Mass/Vol] 103 mg/dL High 74-99 [facility] Comment on above: Order Comment: Negin parson Type: BLOOD SPECIMENOrdering Facility: [facility] Address: [address] [place] [address] Result Comment: The [place] Diabetes Association (ADA) provides guidance for cutoff values for fasting glucose and random glucose. The ADA defines fasting as no caloric intake for at least 8 hours. Fasting plasma glucose results between 100 to 125 mg/dL indicate increased risk for diabetes (prediabetes).Fasting plasma glucose results greater than or equal to 126 mg/dL meet the criteria for diagnosis of diabetes. In the absence of unequivocal hyperglycemia, results should be confirmed by repeat testing. In a patient with classic symptoms of hyperglycemia or hyperglycemic crisis, random plasma glucose results greater than or equal to 200 mg/dL meet the criteria for diagnosis of diabetes.Reference: Standards of Medical Care in Diabetes 2016, [place] [employer] Association. Diabetes Care. 2016.39(Suppl 1). Performed By: #### 2 4323-8, 60594-4, 3016-3 ####[facility] LABIA [id number] [place] [address] [place] Potassium [Moles/Vol] 4.0 mmol/L Normal 3.7-5.1 [facility] Comment on above: Order Comment: Speci men Type: BLOOD SPECIMENOrdering Facility: [facility] Address: [address] [place] [address] Performed By: #### 2 4323-8, 62625-6, 3016-3 ####[facility] LABCLIA [id number] [place] [address] [place] Protein [Mass/Vol] 6.7 g/dL Normal 6.3-8.0 [facility] Comment on above: Order Comment: Speci men Type: BLOOD SPECIMENOrdering Facility: [facility] Address: [address] [place] [address] Performed By: #### 2 4323-8, 71164-1, 6-3 ####[facility] LABCLIA [id number] [place] [address] [place] Sodium [Moles/Vol] 140 mmol/L Normal 136-144 [facility] Comment on above: Order Comment: Speci men Type: BLOOD SPECIMENOrdering Facility: [facility] Address: [address] [place] [address] Performed By: #### 2 4323-8, 84412-3, 3016-3 ####[facility] LABCLIA [id number] [place] [address] [place] Urea nitrogen [Mass/Vol] 21 mg/dL Normal 7-21 [facility] Comment on above: Order Comment: Speci men Type: BLOOD SPECIMENOrdering Facility: [facility] Address: [address] [place] [address] Performed By: #### 2 4323-8, 50356-7, 3016-3 ####[facility] LABCLIA [id number] [place] [id number] [place] Prealb SerPl-mCncon 02-13-20 24 Prealbumin [Mass/Vol] 21 mg/dL Normal 17-36 [facility] Comment on above: Order Comment: Speci men Type: BLOOD SPECIMENOrdering Facility: [facility] Address: [address] [place] [address] Performed By: #### 2 4323-8, 64786-9, 3016-3 ####[facility] LABCLIA [id number] [place] [address] [place] TSH SerPl-aCncon 02-13-2024 TSH Qn 2.160 m[IU]/L Normal 0.270-4.200 [facility] Comment on above: Order Comment: Speci men Type: BLOOD SPECIMENOrdering Facility: [facility] Address: [address] [place] [address] Performed By: #### 2 4323-8, 09648-7, 3016-3 ####[facility] LABCLIA [id number] [place] [address] [place] CNOVon 02-12-2024 CNOV Normal [facility] Office Visiton 02-06-2024 Follow-up visit [id number] David Mitchell evie 1950 F Date Provider Department Center 02/06/2024 [id number]-DVRLUGMARIE KAY [facility] UR None Family History Problem Relation Age of Onset Colon cancer Mother Hypertension Mother Cancer Mother Colon cancer Father Diabetes Father Cancer Father Hypertension Maternal Grandmother Hypertension Paternal Grandfather Family Status - Relation Status Age at Mother Father Maternal Grandmother Paternal Grandfather Level of Service:02209 [place] POSTOP FOLLOW UP VISIT RELATED TO ORIGINAL PX Reason for Visit and Comments: Post-op [483] - Thinks maybe the rectal part came undone, states it looks different, maybe hemorrhoids? Normal [facility] Progress Noteon 02-06-2024 Progress Note Female Pelvic Medici ne & Reconstructive Surgery Post-Op Visit Vandana Mitchell is a 73 y.o. female who presents for a 7 week post-op check s/p: 12/19/23 Dr. Chery Laparoscopic assisted vaginal hysterectomy with BSO Dr. Alston Uterosacral ligament vaginal vault suspension (intraperitoneal colpopexy) Anterior colporrhaphy [employer] Obtryx II transobturator midurethral sling Cystourethroscopy [...] lower abdomen or genital region? No 0 Pig Conveyor Operator: Montse Davis MA OBJECTIVE: BP (!) 172/77 [...] declines at this time. Marie Alston MD [facility] 36on 01-03-2024 36 Name of caller: David evie MarkMitchell Contact phone number: [phone] Relationship to Patient: patient Provider: Dr Alston [...] business hours to return their call: Yes [facility] 36 Patient would like t o know if 02-26 appointment could be cancelled since she was seen today and was told she wouldn't have to come back. [facility] Office Visiton 01-03-2024 Follow-up visit [id number] David Mitchell i 1950 F Date Provider Department Center 01/03/2024 [id number] CHERY [facility]NA[facility]ST None Family History Problem Relation Age of Onset Colon cancer Mother Hypertension Mother Cancer Mother Colon cancer Father Diabetes Father Cancer Father Hypertension Maternal Grandmother Hypertension Paternal Grandfather Family Status - Relation Status Age at Mother Father Maternal Grandmother Paternal Grandfather Level of Service:39368 [place] POSTOP FOLLOW UP VISIT RELATED TO ORIGINAL PX Reason for Visit and Comments: Post-op Visit [559] [facility] Progress Noteon 01-03-2024 Progress Note Postop visit [...] hysterectomy. All the patient's questions were answered. [facility] 36on 12-27-[address] Chew at [phone] via right fax. Confirmation scanned within media. Rescheduled patient with Radha for post op [facility] 36 ----- Message from Leandro Chery MD sent at 12/25/2023 12:50 PM EDT ----- Please fax to Dr. Tariq Chew in [place] and please make sure patient is seeing Otto for postop ----- Message ----- From: deeplocal UserLayla Sent: 12/25/2023 10:30 AM EDT To: Leandro Chery MD [facility] 36on 12-25-2023 36 Pt called with path [facility] 36 Spoke to patient and she states she is taking colace bid. She started mirilax bid and she had a good BM yesterday. She has been having loose bm's since 3:30 this morning. She is going to hold the mirilax and colace today until settled and if needed will restart tomorrow. Will call with further issues. [facility] 36on 12-24-2023 36 Work up in [place] E R did not show evidence of bowel obstruction. Please call patient for follow up and to discuss bowel regimen. Thanks! [facility] 36 S: Patient spoke wit h [facility] nurse regarding constipation post op B: [...] increase nausea, constant 5/10 abdominal pain with bloating, difficulty eating due to no appetite due [...] verbalizes understanding and will be driving to [facility] ED at this time. No further needs at this time. Patient instructed to call back with new or worsening symptoms. Reason for Disposition Caller has NON-URGENT question and triager unable to answer question [1] Constant abdominal pain AND [2] present > 2 hours Protocols used: Post-Op Symptoms and Ucxhdxwen-BJQLN-OW, Tntpnyldmppd-OOWZE[facility]domen/Pelvis without Conto n 12-24-2023 Abdomen/Pelvis without Cont [facility] Imaging Services [address] [place] [address] Abdomen/Pelvis without Cont MR#: [id number] Acct: [id number] Name: VANDANA MITCHELL Rep #: [id number] : 1950 F 73 From: Quinton Owusu PCP: Dr. Markus Rascon MD Status: REG ER Study: Abdomen/Pelvis without Cont Date of Exam: 12/04 06/28 Exam# [id number] Ordering Dr: Otto Espinoza DO [id number] INDICATION: Pain.lower abdomen pain, 5 days post hysterectomy and bladder suspension EXAMINATION: CT ABDOMEN AND PELVIS WITHOUT CONTRAST - CT Abdomen And Pelvis W/O Contrast Injection TECHNIQUE: Helically acquired images were obtained of the abdomen and pelvis without oral or IV contrast. A radiation dose optimization technique was used for this scan. IV Contrast dosage and agent: None. Oral contrast: None. RADIATION DOSAGE (If Supplied By Facility): CTDIvol = ( 6.29 ) mGy, DLP = ( 274.81 ) mGycm COMPARISON: 02/14/2022 FINDINGS: LOWER CHEST: Lung bases are clear. Mild atelectasis at the LEFT lung base. No infiltrate or consolidation. LIVER: The liver has normal configuration and density given the limitation of noncontrast exam. No focal mass. GALLBLADDER AND BILIARY TREE: No calcified gallstones. Gallbladder is distended, no radiodense calcifications present. No intra- or extrahepatic biliary ductal dilation. PANCREAS: No focal cystic or solid mass. SPLEEN: Normal size without focal cystic or solid mass. ADRENAL GLANDS: No nodules. KIDNEYS AND URETERS: Kidneys have normal configuration, there has been interval development of hydronephrosis and prominence of the LEFT renal pelvis however no obstructing calcifications identified. There is a LEFT renal cyst measuring 2.0 x 2.6 cm. No hydronephrosis on the RIGHT. PERITONEUM: No ascites or free air. No other fluid collection. BOWEL: The appendix is not positively identified. No evidence of bowel obstruction abscess free fluid or free air. Diffuse diverticulosis is noted. No stomach or bowel distention. There is a small hiatal hernia.. No focal inflammatory change. LYMPH NODES: No enlarged mesenteric or retroperitoneal lymph nodes. VESSELS: Aorta is non-dilated. URINARY BLADDER: Bladder is moderately distended. There is small amount of air within the bladder likely from recent catheterization. REPRODUCTIVE ORGANS: A vaginal cuff appears be present. No abscess or abnormal fluid collections. Minimal scattered collections of residual postoperative air are present. ABDOMINAL WALL: No evidence of hernia. There are scattered air bubbles in the subcutaneous soft tissues consistent with residual postop air. BONES: Extensive postoperative changes including Lozada vamshi fixation of a marked scoliotic curvature. No acute bony changes however evident. CT/Abdomen/Pelvis without Cont IMPRESSION: 1. No masses, bowel obstruction free fluid or free intraperitoneal air. 2. Hiatal hernia. 3. Diverticulosis without evidence diverticulitis. 4. The appendix is not positively identified. 5. Postoperative changes consistent with history of recent hysterectomy and bladder suspension. 6. No evidence cholelithiasis. 7. There is hydronephrosis and dilated LEFT renal pelvis however no obstructing calcifications or extrinsic compression noted. No perinephric fluid collections. 8. 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 9. Extensive postoperative changes involving the thoracolumbar spine. 10. Vaginal cuff is identified. Small amount of air present within the bladder likely from recent catheterization. 11. Minimal LEFT basilar atelectasis. Reference guidance: Bosniak class I and II cysts are considered benign, and require no additional imaging follow-up based on consensus guidelines (JACR 2010; 7:753-773). Electronically Signed: Quinton Moreira MD at 19:33 EDT , CC: Dr. Otto Espinoza DO; Dr. Markus Rascon MD Extracorporeal Technician: Signed Normal [facility] Basic Metabolic Profile (BMP )on 12-24-2023 BUN/CRE 19.0 RATIO Normal - [facility] Comment on above: Performed By: #### L 500.2500, L100.0100 #### [facility] [address] [place], [address] CA,Total 8.5 mg/dL Normal 8.5-10.1 [facility] Comment on above: Performed By: #### L 500.2500, L100.0100 #### [facility] [address] [place], [address] Chloride [Moles/Vol] 96 mmol/L Low 98-107 [facility] Comment on above: Performed By: #### L 500.2500, L100.0100 #### [facility] [address] [place], [address] CO2 [Moles/Vol] 28.0 mmol/L Normal 21.0-32.0 [facility] Comment on above: Performed By: #### L 500.2500, L100.0100 #### [facility] [address] [place], [address] Creatinine [Mass/Vol] 0.47 mg/dL Low 0.55-1.02 [facility] Comment on above: Result Comment: The validity of the calculated GFR GFRAA in patients over 70 years has not been determined. Clinical correlation is essential. Performed By: #### L 500.2500, L100.0100 #### [facility] [address] [place], [address] ECRCL 48.80 ml/min Normal [facility] Comment on above: Performed By: #### L 500.2500, L100.0100 #### [facility] [address] [place], [address] EST GFR - AA 165 mL/min Normal >60 [facility] Comment on above: Result Comment: Afri can [place] GFR Calc Performed By: #### L 500.2500, L100.0100 #### [facility] [address] [place], [address] GAP 8 Normal 5-15 [facility] Comment on above: Performed By: #### L 500.2500, L100.0100 #### [facility] [address] [place], [address] GFR/1.73 sq M.predicted among non-blacks MDRD (S/P/Bld) [Vol rate/Area] 136 mL/min/{1.73_m2} Normal >60 [facility] Comment on above: Result Comment: Non- GFR Calc Performed By: #### L 500.2500, L100.0100 #### [facility] [address] [place], [address] Glucose [Mass/Vol] 118 mg/dL High 74-106 [facility] Comment on above: Result Comment: Fast ing Glucose result from 100 to 125 mg/dL suggests IMPAIRED HOMEOSTASIS per A.D.A. criteria. Performed By: #### L 500.2500, L100.0100 #### [facility] [address] [place], [address] Potassium [Moles/Vol] 3.1 mmol/L Low 3.5-5.1 [facility] Comment on above: Performed By: #### L 500.2500, L100.0100 #### [facility] [address] [place], [address] Sodium [Moles/Vol] 132 mmol/L Low 136-145 [facility] Comment on above: Performed By: #### L 500.2500, L100.0100 #### [facility] [address] [place], [address] Urea nitrogen [Mass/Vol] 9 mg/dL Normal 7-18 [facility] Comment on above: Performed By: #### L 500.2500, L100.0100 #### [facility] [address] [place], [address] CBC W/Diff, Automatedon 07-2 Absolute Lymph 0.80 X10 3/uL Low 0.83-4.51 [facility] Comment on above: Performed By: #### L 500.2500, L100.0100 #### [facility] [address] [place], [address] Absolute Neut 10.6 X10 3/uL High 2.0-7.7 [facility] Comment on above: Performed By: #### L 500.2500, L100.0100 #### [facility] [address] [place], [address] Basophils/100 WBC (Bld) 0.4 % Normal 0-1 [facility] Comment on above: Performed By: #### L 500.2500, L100.0100 #### [facility] [address] [place], [address] Eosinophils/100 WBC (Bld) 0.6 % Normal 0-5 [facility] Comment on above: Performed By: #### L 500.2500, L100.0100 #### [facility] [address] [place], [address] Erythrocyte distribution width (RBC) [Ratio] 14.2 % Normal 11.6-14.6 [facility] Comment on above: Performed By: #### L 500.2500, L100.0100 #### [facility] [address] [place], [address] Hematocrit (Bld) [Volume fraction] 32.6 % Low 37-47 [facility] Comment on above: Performed By: #### L 500.2500, L100.0100 #### [facility] [address] [place], [address] Hemoglobin (Bld) [Mass/Vol] 10.9 g/dL Low 12.0-15.0 [facility] Comment on above: Performed By: #### L 500.2500, L100.0100 #### [facility] [address] [place], [address] IG% 0.500 Normal 0.0-0.9 [facility] Comment on above: Result Comment: IG% - Immature Granulocytes (promyelocytes, myelocytes and metamyelocytes) > 1% indicates that a LEFT SHIFT is Present. Performed By: #### L 500.2500, L100.0100 #### [facility] [address] [place], [address] Lymphocytes/100 WBC (Bld) 6.2 % Low 19-41 [facility] Comment on above: Performed By: #### L 500.2500, L100.0100 #### [facility] [address] [place], [address] MCH (RBC) [Entitic mass] 26.3 pg Low 27.0-32.0 [facility] Comment on above: Performed By: #### L 500.2500, L100.0100 #### [facility] [address] [place], [address] MCHC (RBC) [Mass/Vol] 33.4 g/dL Normal 32-36 [facility] Comment on above: Performed By: #### L 500.2500, L100.0100 #### [facility] [address] [place], [address] MCV (RBC) [Entitic vol] 78.6 fL Low 81-99 [facility] Comment on above: Performed By: #### L 500.2500, L100.0100 #### [facility] [address] [place], [address] Monocytes/100 WBC (Bld) 9.3 % Normal 0-10 [facility] Comment on above: Performed By: #### L 500.2500, L100.0100 #### [facility] [address] [place], [address] Neutrophils/100 WBC (Bld) 83.0 % High 47-70 [facility] Comment on above: Performed By: #### L 500.2500, L100.0100 #### [facility] [address] [place], [address] Nucleated RBC (Bld) [#/Vol] 0 10*3/uL Normal 0-5 [facility] Comment on above: Performed By: #### L 500.2500, L100.0100 #### [facility] [address] [place], [address] Platelet mean volume (Bld) [Entitic vol] 10.2 fL Normal 6.2-12.0 [facility] Comment on above: Performed By: #### L 500.2500, L100.0100 #### [facility] [address] [place], [address] Platelets (Bld) [#/Vol] 314 10*3/uL Normal 150-450 [facility] Comment on above: Performed By: #### L 500.2500, L100.0100 #### [facility] [address] [place], [address] RBC (Bld) [#/Vol] 4.15 10*6/uL Low 4.2-5.4 [facility] Comment on above: Performed By: #### L 500.2500, L100.0100 #### [facility] [facility] [address] [place], [address] RDW SD 40.4 fl Normal 35.1-43.9 [facility] Comment on above: Performed By: #### L 500.2500, L100.0100 #### [facility] [address] [place], [address] WBC (Bld) [#/Vol] 12.8 10*3/uL High 4.4-11.0 [facility] Comment on above: Performed By: #### L 500.2500, L100.0100 #### [facility] [address] [place], [address] Emergency Department Summary on 12-24-2023 Emergency Department Summary [facility] Medical Records Department [address] [place] [address] Emergency Department Summary 12/24/23 MR#: [id number] Acct: [id number] Name: VANDANA MITCHELL #: [id number] : 1950 73 From: Otto Espinoza DO PCP: Dr. Markus Rascon MD Status:DEP ER Location: ED HPI HPI - GI History of Present Illness Chief Complaint: Abd Pain Detail of Chief Complaint: Abdominal pain and constipation Informant: patient Narrative Narrative: Patient presents with abdominal pain and constipation. Patient states that she had surgery 5 days ago at [facility] with Dr. Chery and Dr. Alston. She had a laparoscopic hysterectomy and BSO as well as a bladder suspension and rectocele repair. Patient states that since going home she had not had a bowel movement until today. Patient states she had been taking Colace twice a day and started taking MiraLAX 2 days ago. Patient denies fevers or chills or sweats. She has had nausea but no vomiting. She denies urinary symptoms. She was finally able to have a bowel movement today but feels like she needs to have more. She called [facility] and was instructed to come to the emergency department to rule out bowel obstruction. Patient states that she had been passing gas but passing less gas than before. [facility] Medical History Osteoporosis MGUS (monoclonal gammopathy of unknown significance) Cardiomyopathy Restrictive lung disease Arthritis Hypertension Home Medications ???Medication ???Instructions ???Recorded ???Last Taken ???Type multivitamin,tx-iron-m inerals 1 tab PO DAILY 05/23/18 Unknown History (Complete Multivitamin tablet) denosumab 60 mg/mL subcutaneous 60 mg subcut [id number] #1 mL 07/26/22 Unknown Rx syringe diltiazem HCl 180 mg 180 mg PO DAILY 09/09/22 Unknown History capsule,extended release 24 hr calcium cit 250 mg-ergocalciferol 1 tab PO BID 07/25/23 Unknown History (vit D2) 2.5 mcg (100 unit) tablet (Bryn-Citrate) mometasone-formoterol HFA 100 2 inh inhalation BID 07/25/23 Unknown History mcg-5 mcg/actuation aerosol inhaler (Dulera) ondansetron 4 mg disintegrating 4 mg PO Q8H PRN PRN Nausea #10 tabs 12/24/23 Unknown Rx tablet Allergy/AdvReac Type Severity Reaction Status Date / Time aspirin Allergy Intermediate lips swell Verified 12/24/23 17:02 amoxicillin Allergy Rash Verified 12/24/23 17:02 diclofenac Allergy Shortness Verified 12/24/23 17:02 of breath iodine Allergy Anaphylaxis Verified 12/24/23 17:02 metoprolol Allergy PT UNSURE Verified 12/24/23 17:02 OF REACTION shellfish derived Allergy Anaphylaxis Verified 12/24/23 17:02 Family History Mother Cancer colon Father Cancer lung Surgical History History of bunionectomy S/P wrist surgery Social History Smoking Status: Never smoker alcohol intake: current details: social substance use type: does not use caffeine: Yes what type of physical activity do you participate in: none seatbelt use: always do you feel safe at home: Yes additional social history: Ray- retired Patient is retired ROS ROS ED Review of Systems ROS Unobtainable: other Constitutional Constitutional ED: Reports lethargy; Denies chills, fever(s), sweats or weight loss Eyes Eyes: Denies blurry vision, change in vision or diplopia ENT ENT ED: Denies rhinorrhea or sore throat Cardiovascular Cardiovascular: Denies chest pain, orthopnea or racing heartbeat Respiratory/Chest Respiratory/Chest: Reports dyspnea on exertion; Denies cough, dyspnea, orthopnea or sputum Gastrointestinal Gastrointestinal: Reports abdominal pain, constipation and nausea; Denies diarrhea or vomiting Genitourinary Genitourinary ED: Denies dysuria, hematuria or urinary frequency Musculoskeletal Musculoskeletal: Denies arthralgias, back pain, myalgias or neck pain Integumentary Denies abscess, Abrasions or rash Neurologic Neurologic: Denies headache(s) or weakness Psychiatric Psychiatric: Denies anxiety, depression or suicidal thoughts Endocrine Endocrinology: Denies polydipsia, polyphagia or polyuria Hematologic/Lymphatic Hematologic/Lymphatic: Denies easy bleeding, easy bruising or lymphadenopathy Allergic/Immunologic Allergic/Immunologic ED: Denies mouth swelling, tongue swelling or urticaria EXAM Physical Exam Const Vital Signs: 12/24/23 17:02 12/24/23 18:05 12/24/23 19:00 Temperature 98.4 F 97.8 F 97.8 F Temperature Source Temporal Temporal Temporal Pulse Rate 104 H 108 H 97 Respiratory Rate 16 16 16 Blood Pressure 129/88 H 166/82 H 173/89 H Blood Pressure Mean 101 110 117 (more content not included)... Normal [facility] Urinalysis, Completeon 12-23 EPI,TRANSITION 0-5 SEEN Normal 0-5 [facility] Comment on above: Order Comment: CLEAN CATCH Performed By: #### L 400.0001 #### [facility] [address] [place], [address] RBC 0-5 SEEN Normal 0-5 [facility] Comment on above: Order Comment: CLEAN CATCH Performed By: #### L 400.0001 #### [facility] [address] [place], [address] WBC 0-5 SEEN Normal 0-5 [facility] Comment on above: Order Comment: CLEAN CATCH Performed By: #### L 400.0001 #### [facility] [address] [place], [address] BACTERIA 0 SEEN Normal None Seen [facility] Comment on above: Order Comment: CLEAN CATCH Performed By: #### L 400.0001 #### [facility] [address] [place], [address] EPI,SQUAMOUS 0 SEEN Normal 5-10 [facility] Comment on above: Order Comment: CLEAN CATCH Performed By: #### L 400.0001 #### [facility] [address] [place], [address] Mucus Ql (Urine sed) 0 SEEN Normal [facility] Comment on above: Order Comment: CLEAN CATCH Performed By: #### L 400.0001 #### [facility] [address] [place], [address] ECG 12-LEADon 12-20-2023 ECG 12-LEAD IMPRESSION: Sinus rhythm Electronically Signed On 12-20-2023 15:54:47 EDT by Pavel Rodríguez [facility] CBC (HEMOGRAM)on 12-19-2023 Erythrocyte distribution width (RBC) [Ratio] 14.2 % Normal 11.5-15.0 [facility] Comment on above: Performed By: #### L AB294 ####Switch Foreman: JENNIFER SANCHEZ ([phone])[facility])[address] [place] [address] Hematocrit (Bld) [Volume fraction] 36.8 % Normal 35.0-47.0 [facility] Comment on above: Performed By: #### L AB294 ####Switch Foreman: JENNIFER SANCHEZ ([phone])[facility])[address] [place] [address] Hemoglobin (Bld) [Mass/Vol] 12.1 g/dL Normal 11.7-16.0 [facility] Comment on above: Performed By: #### L AB294 ####Switch Foreman: JENNIFER SANCHEZ ([phone])[facility] ([facility])[address] [place] [address] MCH (RBC) [Entitic mass] 26.2 pg Normal 26.0-34.0 [facility] Comment on above: Performed By: #### L AB294 ####Switch Foreman: JENNIFER SANCHEZ ([phone])[facility])[address] [place] [address] MCHC 32.9 % Normal 30.5-36.0 [facility] Comment on above: Performed By: #### L AB294 ####Switch Foreman: JENNIFER SANCHEZ ([phone])[facility])[address] [place] [address] MCV (RBC) [Entitic vol] 79.7 fL Normal 77.0-99.0 [facility] Comment on above: Performed By: #### L AB294 ####Switch Foreman: JENNIFER SANCHEZ ([phone])[facility])[address] [place] [address] Platelet mean volume (Bld) [Entitic vol] 11.0 fL Normal 9.0-12.7 [facility] Comment on above: Performed By: #### L AB294 ####Switch Foreman: JENNIFER SANCHEZ ([phone])[facility] ([facility])[address] [place] [address] Platelets (Bld) [#/Vol] 283 10*3/uL Normal 140-440 [facility] Comment on above: Performed By: #### L AB294 ####Switch Foreman: JENNIFER SANCHEZ ([phone])[facility] ([facility])[address] [place] [address] RBC (Bld) [#/Vol] 4.62 10*6/uL Normal 3.80-5.20 [facility] Comment on above: Performed By: #### L AB294 ####Switch Foreman: JENNIFER SANCHEZ ([phone])[facility] ([facility])[address] [place] [address] WBC (Bld) [#/Vol] 9.6 10*3/uL Normal 3.6-10.7 [facility] Comment on above: Performed By: #### L AB294 ####Switch Foreman: JENNIFER SANCHEZ ([phone])[facility] ([facility])[address] [place] [address] CBC panel Auto (Bld)on 12-18 Erythrocyte distribution width (RBC) [Ratio] 14.2 % 11.5 - 15.0 % [facility] Hematocrit (Bld) [Volume fraction] 36.8 % 35.0 - 47.0 % [facility] Hemoglobin (Bld) [Mass/Vol] 12.1 g/dL 11.7 - 16.0 g/dL [facility] Interpretation and review of laboratory results Normal [facility] MCH (RBC) [Entitic mass] 26.2 pg 26.0 - 34.0 pg [facility] MCHC (RBC) [Mass/Vol] 32.9 % 30.5 - 36.0 % [facility] MCV (RBC) [Entitic vol] 79.7 fL 77.0 - 99.0 fL [facility] Platelet mean volume (Bld) [Entitic vol] 11.0 fL 9.0 - 12.7 fL [facility] Platelets (Bld) [#/Vol] 283 10*3/uL 140 - 440 10*3/uL [facility] RBC (Bld) [#/Vol] 4.62 10*6/uL 3.80 - 5.2 0 10*6/uL [facility] WBC (Bld) [#/Vol] 9.6 10*3/uL 3.6 - 10.7 10*3/uL [facility] Nursing Noteon 12-19-2023 Nursing Note Discharge instructio ns given. Patient and family verbalized understanding. Medications received from pharmacy. IV site removed. Taken via wheelchair for discharge Normal [facility] Nursing Note Voiding trial starte d. 300mL instilled of normal saline. Catheter discontinued. Patient ambulated to restroom with 2 nurse SBA. Patient voided 200mL. 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 [facility] Op Noteon 12-19-2023 Op Note Date: 12/19/2023 Location: [facility] OR Name: Vandana Mitchell, : 1950, Diagnosis [...] VAGINAL HYSTERECTOMY WITH REMOVAL BILATERAL SALPINGO OOPHORECTOMY 35240 - CA LAPS W/VAG HYSTERECT 250 GM/&RMVL TUBE&/OVARIES UTEROSACRAL LIGAMENT SUSPENSION, ANTERIOR/POSTERIOR REPAIR, POSSIBLE SLING PROCEDURE, CYSTOSCOPY 07711 - CA COLPOPEXY VAGINAL INTRAPERITONEAL APPROACH ANTERIOR AND POSTERIOR COLPORRHAPHY 19105 - CA CMBND ANTERPOST COLPORRAPHY W/CYSTO SLING OPERATION FOR STRESS INCONTINENCE 86575 - CA SLING OPERATION STRESS INCONTINENCE CYSTOSCOPY 52287 - CA CYSTOURETHROSCOPY Surgeons Panel 1: * Leandro Chery [...] TUBES AND OVARIES Comment: WEIGHT: 115G Staff: Surveillance Operator: Anamaria Rebolledo RN Scrub Person: Geovanny Cheung [...] (two hours if receiving Vancomycin or flouroquinolone) [facility] Op Note Date of surgery 12/19/2023 preoperative [...] urogynecology for repair of her vaginal prolapse. Normal [facility] 36on 12-18-2023 36 Spoke with pt and answered hibiclens question regarding washing before surgery. Normal [facility] 36 Patient stated they had questions regarding their surgery tomorrow 12/17. Did not mention further details at this time, please contact when able thank you! Normal [facility] Calcium.ionized [Moles/Vol]o n 12-15-2023 Calcium.ionized (Bld) [Mass/Vol] 1.28 mmol/L Normal 1.08-1.30 [facility] Comment on above: Order Comment: Speci men Type: BLOOD SPECIMENOrdering Facility: [facility] Address: [address] [place] [address] Performed By: #### 1 995-0 ####[facility] [id number] [place] [address] [place] Calcium.ionized adjusted to pH 7.4 (Bld) [Moles/Vol] 1.26 mmol/L Normal 1.08-1.30 [facility] Comment on above: Order Comment: Speci men Type: BLOOD SPECIMENOrdering Facility: [facility] Address: [address] [place] [address] Performed By: #### 1 995-0 ####[facility] [id number] [place] [address] [place] [facility] Office Visit Reporton 12-15-2023 [facility] Office Visit Report [facility] [address] [place] [address] OFFICE VISIT Date of Service: 12/15/23 MR#: [id number] Acct: [id number] Name: VANDANA MITCHELL Rep #: [id number] : 1950 Provider: Dr. 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) Chief Complaint: Annual Senior Web Designer Required: No Is patient in pain?: No Allergies aspirin Allergy (Intermediate, Verified 12/15/23 14:43) lips swell amoxicillin Allergy (Verified 12/15/23 14:43) Rash diclofenac Allergy (Verified 12/15/23 14:43) Shortness of breath iodine Allergy (Verified 12/15/23 14:43) Anaphylaxis metoprolol Allergy (Verified 12/15/23 14:43) PT UNSURE OF REACTION shellfish derived Allergy (Verified 12/15/23 14:43) Anaphylaxis Medications ???Medication ???Instructions ???Recorded ???Confirmed ???Type multivitamin,tx-iron-m inerals 1 tab PO DAILY 05/23/18 12/15/23 History (Complete Multivitamin tablet) denosumab 60 mg/mL subcutaneous 60 mg subcut [id number] #1 mL 07/26/22 12/15/23 Rx syringe diltiazem HCl 180 mg 180 mg PO DAILY 09/09/22 12/15/23 History capsule,extended release 24 hr calcium cit 250 mg-ergocalciferol 1 tab PO BID 07/25/23 12/15/23 History (vit D2) 2.5 mcg (100 unit) tablet (Bryn-Citrate) mometasone-formoterol HFA 100 2 inh inhalation BID 07/25/23 12/15/23 History mcg-5 mcg/actuation aerosol inhaler (Dulera) Is last menstrual period known: No Post menopausal: Yes Patient : No : No PFSH Medical History Osteoporosis MGUS (monoclonal gammopathy of unknown significance) Cardiomyopathy Restrictive lung disease Arthritis Hypertension Surgical History History of bunionectomy S/P wrist surgery Family History Mother Cancer colon Father Cancer lung Social History Smoking Status: Never smoker alcohol intake: current details: social substance use type: does not use caffeine: Yes what type of physical activity do you participate in: none seatbelt use: always do you feel safe at home: Yes additional social history: Ray- retired Patient is retired History 2 Elective abortions Hx Para 2 Spontaneous abortions Hx # Term Pregnancies Ectopic pregnancies Hx # Pregnancies Multiple births # of living children Past Pregnancies Del. Date Name GA/Weeks Outcome Route Bth Weight Gen Labor Lgth Anesthesia Del Locatn Provider FOB Unknown 1976 Quinten Unknown 1978 Evette live - full term HPI Encounter for routine gynecological examination Details: VANDANA MITCHELL is a 73 year old who presents for annual exam. 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 History of abnormal PAP: no Last mammogram: 12/04/23 History of abnormal mammogram: no Colon cancer screening: up to date Other preventative health care screenings: followed by pcp ROS : Denies nipple discharge Skin Skin/Breast: Denies breast mass, breast pain, breast skin changes or nipple discharge Exam Const General: cooperative, healthy appearing, comfortable and no acute distress Orientation: alert, awake and oriented x3 Neck Neck: normal visual inspection and no lymphadenopathy Neck mass: No Chest Chest palpation inspection: normal inspection of the chest Breast inspection: normal inspection of the breasts and normal inspection of the axillae Breast palpation: normal palpation of the breasts, normal palpation of the axillae and no axillary lymphadenopathy Other: no abnormal skin retractions, nipple discharge, dimpling, masses, or lesions Coding Level of Care Code Pelvic/Breast Diagnoses Encounter for routine gynecological examination Z01.419 Assessment and Plan Assessment and Plan (1) Encounter for routine gynecological examination: Plan: Cervical cancer screening: no longer indicated Breast cancer screening: mammogram up to date other health maintenance examination reviewed and orders placed if needed. Encouraged maintenance of a healthy weight and active lifestyle and handout given. Annual exam handout including recommendations for good health guidelines, Calcium/vitamin D recommendations, and basic screening information given. (more content not included)... Normal [facility] PTH-Intact [facility] 12-03 Parathyrin.intact [Mass/Vol] 68 pg/mL High 15-65 [facility] Comment on above: Order Comment: Speci men Type: BLOOD SPECIMENOrdering Facility: [facility] Address: [address] [place] [address] Performed By: #### 2 731-8 ####[facility] LABCLIA [id number] [address] [id number] [id number] [place] 36on 12-14-2023 36 These clearance form s have been returned in media now Normal [facility] BLOOD TYPE AND SCREEN GELon 12-14-2023 ABO GROUPING O Normal [facility] Comment on above: Performed By: #### L AB276 #### Switch Foreman: RANJIT ORTIZ ([phone]) [facility] BLOOD [facility] [address] [place], [place] [id number] [place] [address] RH TYPE IN BLOOD Positive Normal [facility] Comment on above: Performed By: #### L AB276 #### Switch Foreman: RANJIT ORTIZ ([phone]) [facility] BLOOD [facility] [address] [place], [place] [id number] [place] [address] PREPROCINSon 12-14-2023 PREPROCINS Medication List Accurate as [...] your scheduled surgery time. Please bring your [facility] Surgical folder and medication list with you day of surgery. We encourage you to write down any questions you may have for the surgeon, anesthesiologist, or other members of the surgical team and bring it with you the day of surgery. Please bring photo ID and insurance information. Normal [facility] Progress Noteon 12-14-2023 Progress Note [facility]ANCED CARE PLANLARUEN ASMITA Mitchell : 1950 Primary Care Physician: Markus Rascon MD The patient and/or family/surrogate voluntarily agreed to participate in ACP services. Patient?s cognitive capacity: FULL Code Status: [x] [FULL CODE - Continue all advanced life support: CPR,intubation,invasiv e procedures] [_] [DNR-CCA - DO NOT do CPR, intubation] [_] [DNR-REPAIR MANAGER - Comfort care only] [_] DNR form [...] and/or family/surrogate. Javed Shay PA-C Acute care [facility] 12/14/2023, 1:07 PM [facility] 36on 12-12-2023 36 sent [facility] 36 PAT: 12.14.2023 at [place] 3 pm SX: 12.19.2023 at 12:30 arrival at 10:30 am Post op 01.03.2024 at 10:45 am Folder and instructions given. [facility] 36 Patient asking if sh e needs cardio and pulm clearance we have her scheduled for 12/18 Dr pickens Cardio Constance Russell [facility] CNPNon 12-12-2023 CNPN [facility] 36on 12-08-2023 [address] scan. Surgery not until Jan 16. Would not like to wait so long [facility] 36 Patient returning missed call, please contact when able, thank you [facility] [address] [facility] Office Visiton 12-05-2023 Follow-up visit [id number] David Mitchell i 1950 F Date Provider Department Center 12/05/2023 [id number] RUSSELL [facility] UR None Family History Problem Relation Age of Onset Colon cancer Mother Hypertension Mother Cancer Mother Colon cancer Father Diabetes Father Cancer Father Hypertension Maternal Grandmother Hypertension Paternal Grandfather Family Status - Relation Status Age at Mother Father Maternal Grandmother Paternal Grandfather Level of Service:32141 [place] OFFICE/OUTPT VISIT,PROCEDURE ONLY Reason for Visit and Comments: Results [95] - UDS [facility] Progress Noteon 12-05-2023 Progress Note Vandana Mitchell [...] - No DD, +SA Marie Alston MD [facility] Progress Note Unable to obtain a B P re-check due to patient leaving while I was in a room with another patient. Normal [facility] 25(OH)D3 SerPl-mCncon 2023 25-hydroxyvitamin D3 [Mass/Vol] 62.3 ng/mL Normal 31.0-80.0 [facility] Comment on above: Order Comment: Speci men Type: BLOOD SPECIMENOrdering Facility: [facility] Address: [address] [place] [address] Performed By: #### 1 989-3 ####[facility] LABCLIA [id number] [place] [address] [place] CBC W Auto Differential pane l (Bld)on 12-04-2023 Basophils (Bld) [#/Vol] 0.10 10*3/uL Normal <0.11 [facility] Comment on above: Order Comment: Speci men Type: BLOOD SPECIMENOrdering Facility: [facility] Address: [address] [place] [address] Performed By: #### 5 7021-8 ####[facility] LABCLIA [id number] [place] [address] [place] Basophils/100 WBC (Bld) 1.1 % Normal [facility] Comment on above: Order Comment: Speci men Type: BLOOD SPECIMENOrdering Facility: [facility] Address: [address] [place] [address] Performed By: #### 5 7021-8 ####[facility] LABCLIA [id number] [place] [address] [place] Differential cell count method Nom (Bld) Auto Normal [facility] Comment on above: Order Comment: Speci men Type: BLOOD SPECIMENOrdering Facility: [facility] Address: [address] [place] [address] Performed By: #### 5 7021-8 ####[facility] LABCLIA [id number] [place] [address] [place] Eosinophils (Bld) [#/Vol] 0.11 10*3/uL Normal <0.46 [facility] Comment on above: Order Comment: Speci men Type: BLOOD SPECIMENOrdering Facility: [facility] Address: [address] [place] [address] Performed By: #### 5 7021-8 ####[facility] LABCLIA [id number] [place] [address] [place] Eosinophils/100 WBC (Bld) 1.2 % Normal [facility] Comment on above: Order Comment: Speci men Type: BLOOD SPECIMENOrdering Facility: [facility] Address: [address] [place] [address] Performed By: #### 5 7021-8 ####[facility] LABCLIA [id number] [place] [address] [place] Erythrocyte distribution width (RBC) [Ratio] 14.4 % Normal 11.5-15.0 [facility] Comment on above: Order Comment: Speci men Type: BLOOD SPECIMENOrdering Facility: [facility] Address: [address] [place] [address] Performed By: #### 5 7021-8 ####[facility] LABCLIA [id number] [place] [address] [place] Hematocrit (Bld) [Volume fraction] 40.5 % Normal 36.0-46.0 [facility] Comment on above: Order Comment: Speci men Type: BLOOD SPECIMENOrdering Facility: [facility] Address: [address] [place] [address] Performed By: #### 5 7021-8 ####[facility] LABCLIA [id number] [place] [address] [place] Hemoglobin (Bld) [Mass/Vol] 12.8 g/dL Normal 11.5-15.5 [facility] Comment on above: Order Comment: Speci men Type: BLOOD SPECIMENOrdering Facility: [facility] Address: [address] [place] [address] Performed By: #### 5 7021-8 ####[facility] LABCLIA [id number] [place] [address] [place] Immature granulocytes (Bld) [#/Vol] 0.04 10*3/uL Normal <0.10 [facility] Comment on above: Order Comment: Speci men Type: BLOOD SPECIMENOrdering Facility: [facility] Address: [address] [place] [address] Performed By: #### 5 7021-8 ####[facility] LABCLIA [id number] [place] [address] [place] Immature granulocytes/100 WBC (Bld) 0.4 % Normal [facility] Comment on above: Order Comment: Speci men Type: BLOOD SPECIMENOrdering Facility: [facility] Address: [address] [place] [address] Performed By: #### 5 7021-8 ####[facility] LABIA [id number] [place] [address] [place] Lymphocytes (Bld) [#/Vol] 1.47 10*3/uL Normal 1.00-4.00 [facility] Comment on above: Order Comment: Speci men Type: BLOOD SPECIMENOrdering Facility: [facility] Address: [address] [place] [address] Performed By: #### 5 7021-8 ####[facility] LABCLIA [id number] [place] [address] [place] Lymphocytes/100 WBC (Bld) 16.3 % Normal [facility] Comment on above: Order Comment: Speci men Type: BLOOD SPECIMENOrdering Facility: [facility] Address: [address] [place] [address] Performed By: #### 5 7021-8 ####[facility] LABCLIA [id number] [place] [address] [place] MCH (RBC) [Entitic mass] 26.4 pg Normal 26.0-34.0 [facility] Comment on above: Order Comment: Speci men Type: BLOOD SPECIMENOrdering Facility: [facility] Address: [address] [place] [address] Performed By: #### 5 7021-8 ####[facility] LABCLIA [id number] [place] [address] [place] MCHC (RBC) [Mass/Vol] 31.6 g/dL Normal 30.5-36.0 [facility] Comment on above: Order Comment: Speci men Type: BLOOD SPECIMENOrdering Facility: [facility] Address: [address] [place] [address] Performed By: #### 5 7021-8 ####[facility] LABIA [id number] [place] [address] [place] MCV (RBC) [Entitic vol] 83.7 fL Normal 80.0-100.0 [facility] Comment on above: Order Comment: Speci men Type: BLOOD SPECIMENOrdering Facility: [facility] Address: [address] [place] [address] Performed By: #### 5 7021-8 ####[facility] LABIA [id number] [place] [address] [place] Monocytes (Bld) [#/Vol] 0.76 10*3/uL Normal <0.87 [facility] Comment on above: Order Comment: Speci men Type: BLOOD SPECIMENOrdering Facility: [facility] Address: [address] [place] [address] Performed By: #### 5 7021-8 ####[facility] LABIA [id number] [place] [address] [place] Monocytes/100 WBC (Bld) 8.4 % Normal [facility] Comment on above: Order Comment: Speci men Type: BLOOD SPECIMENOrdering Facility: [facility] Address: [address] [place] [address] Performed By: #### 5 7021-8 ####[facility] LABCLIA [id number] [place] [address] [place] Neutrophils (Bld) [#/Vol] 6.55 10*3/uL Normal 1.45-7.50 [facility] Comment on above: Order Comment: Speci men Type: BLOOD SPECIMENOrdering Facility: [facility] Address: [address] [place] [address] Performed By: #### 5 7021-8 ####[facility] LABCLIA [id number] [place] [address] [place] Neutrophils/100 WBC (Bld) 72.6 % Normal [facility] Comment on above: Order Comment: Speci men Type: BLOOD SPECIMENOrdering Facility: [facility] Address: [address] [place] [address] Performed By: #### 5 7021-8 ####[facility] LABCLIA [id number] [place] [address] [place] Nucleated RBC (Bld) [#/Vol] 10*3/uL Normal <0.01 [facility] Comment on above: Order Comment: Speci men Type: BLOOD SPECIMENOrdering Facility: [facility] Address: [address] [place] [address] Performed By: #### 5 7021-8 ####[facility] LABCLIA [id number] [place] [address] [place] Nucleated RBC/100 WBC (Bld) [Ratio] 0.0 /100 WBC Normal [facility] Comment on above: Order Comment: Speci men Type: BLOOD SPECIMENOrdering Facility: [facility] Address: [address] [place] [address] Performed By: #### 5 7021-8 ####[facility] LABCLIA [id number] [place] [address] [place] Platelet mean volume (Bld) [Entitic vol] 11.6 fL Normal 9.0-12.7 [facility] Comment on above: Order Comment: Speci men Type: BLOOD SPECIMENOrdering Facility: [facility] Address: [address] [place] [address] Performed By: #### 5 7021-8 ####[facility] LABCLIA [id number] [place] [address] [place] Platelets (Bld) [#/Vol] 295 10*3/uL Normal 150-400 [facility] Comment on above: Order Comment: Speci men Type: BLOOD SPECIMENOrdering Facility: [facility] Address: [address] [place] [address] Performed By: #### 5 7021-8 ####[facility] LABCLIA [id number] [place] [address] [place] RBC (Bld) [#/Vol] 4.84 10*6/uL Normal 3.90-5.20 [facility] Comment on above: Order Comment: Speci men Type: BLOOD SPECIMENOrdering Facility: [facility] Address: [address] [place] [address] Performed By: #### 5 7021-8 ####[facility] LABCLIA [id number] [place] [address] [place] WBC (Bld) [#/Vol] 9.03 10*3/uL Normal 3.70-11.00 [facility] Comment on above: Order Comment: Speci men Type: BLOOD SPECIMENOrdering Facility: [facility] Address: [address] [place] [address] Performed By: #### 5 7021-8 ####[facility] LABIA [id number] [place] [address] [place] Comprehensive metabolic 2000 panelon 12-04-2023 Albumin [Mass/Vol] 4.5 g/dL Normal 3.9-4.9 [facility] Comment on above: Order Comment: Speci men Type: BLOOD SPECIMENOrdering Facility: [facility] Address: [address] [place], [place] [address] Performed By: #### 2 4323-8, 57655-1 ####[facility] LABCLIA [id number] [place] [address] [place] ALP [Catalytic activity/Vol] 63 U/L Normal 34-123 [facility] Comment on above: Order Comment: Speci men Type: BLOOD SPECIMENOrdering Facility: [facility] Address: [address] [place] [address] Performed By: #### 2 4323-8, 60342-0 ####[facility] LABCLIA [id number] [place] [address] [place] ALT [Catalytic activity/Vol] 17 U/L Normal 7-38 [facility] Comment on above: Order Comment: Speci men Type: BLOOD SPECIMENOrdering Facility: [facility] Address: [address] [place] [address] Performed By: #### 2 4323-8, 79303-9 ####[facility] LABCLIA [id number] [place] [address] [place] Anion gap [Moles/Vol] 13 mmol/L Normal 8-15 [facility] Comment on above: Order Comment: Speci men Type: BLOOD SPECIMENOrdering Facility: [facility] Address: [address] [place], [place] [address] Performed By: #### 2 4323-8, 57569-0 ####[facility] LABCLIA [id number] [place] [id number] [place] AST [Catalytic activity/Vol] 28 U/L Normal 13-35 [facility] Comment on above: Order Comment: Speci men Type: BLOOD SPECIMENOrdering Facility: [facility] Address: [address] [place], [place] [address] Performed By: #### 2 4323-8, 18734-3 ####[facility] LABCLIA [id number] [place] [address] [place] Bilirubin [Mass/Vol] 0.3 mg/dL Normal 0.2-1.3 [facility] Comment on above: Order Comment: Speci men Type: BLOOD SPECIMENOrdering Facility: [facility] Address: [address] [place] [address] Performed By: #### 2 4323-8, 06688-1 ####[facility] LABCLIA [id number] [place] [address] [place] Calcium [Mass/Vol] 10.3 mg/dL High 8.5-10.2 [facility] Comment on above: Order Comment: Speci men Type: BLOOD SPECIMENOrdering Facility: [facility] Address: [address] [place] [address] Performed By: #### 2 4323-8, 25113-8 ####[facility] LABIA [id number] [place] [address] [place] Chloride [Moles/Vol] 101 mmol/L Normal 98-107 [facility] Comment on above: Order Comment: Speci men Type: BLOOD SPECIMENOrdering Facility: [facility] Address: [address] [place] [address] Performed By: #### 2 4323-8, 73041-0 ####[facility] LABIA [id number] [place] [address] [place] CO2 [Moles/Vol] 25 mmol/L Normal 22-30 [facility] Comment on above: Order Comment: Speci men Type: BLOOD SPECIMENOrdering Facility: [facility] Address: [address] [place] [address] Performed By: #### 2 4323-8, 04168-6 ####[facility] LABCLIA [id number] [place] [address] [place] Creatinine [Mass/Vol] 0.65 mg/dL Normal 0.58-0.96 [facility] Comment on above: Order Comment: Negin parson Type: BLOOD SPECIMENOrdering Facility: [facility] Address: [address] [place] [address] Performed By: #### 2 4323-8, 14355-9 ####[facility] LABCLIA [id number] [place] [address] [place] Creatinine and Glomerular filtration rate.predicted panel (S/P/Bld) 93 mL/min/1.73m??? Normal >=60 [facility] Comment on above: Order Comment: Negin parson Type: BLOOD SPECIMENOrdering Facility: [facility] Address: [address] [place] [address] Result Comment: Betsy mated Glomerular Filtration Rate [...] actual GFR. Performed By: #### 2 4323-8, 33269-9 ####[facility] LABCLIA [id number] [place] [address] [place] Glucose [Mass/Vol] 87 mg/dL Normal 74-99 [facility] Comment on above: Order Comment: Negin parson Type: BLOOD SPECIMENOrdering Facility: [facility] Address: [address] [place] [address] Result Comment: The [place] Diabetes Association (ADA) provides guidance for cutoff values for fasting glucose and random glucose. The ADA defines fasting as no caloric intake for at least 8 hours. Fasting plasma glucose results between 100 to 125 mg/dL indicate increased risk for diabetes (prediabetes).Fasting plasma glucose results greater than or equal to 126 mg/dL meet the criteria for diagnosis of diabetes. In the absence of unequivocal hyperglycemia, results should be confirmed by repeat testing. In a patient with classic symptoms of hyperglycemia or hyperglycemic crisis, random plasma glucose results greater than or equal to 200 mg/dL meet the criteria for diagnosis of diabetes.Reference: Standards of Medical Care in Diabetes 2016, [place] Diabetes Association. Diabetes Care. 2016.39(Suppl 1). Performed By: #### 2 4323-8, 35327-2 ####[facility] LABCLIA [id number] [address] [address] [place] Potassium [Moles/Vol] 4.5 mmol/L Normal 3.7-5.1 [facility] Comment on above: Order Comment: Speci men Type: BLOOD SPECIMENOrdering Facility: [facility] Address: [address] [place] [id number] Performed By: #### 2 4323-8, 86615-0 ####[facility] LABCLIA [id number] [place] [address] [place] Protein [Mass/Vol] 7.7 g/dL Normal 6.3-8.0 [facility] Comment on above: Order Comment: Speci men Type: BLOOD SPECIMENOrdering Facility: [facility] Address: [address] [id number] Performed By: #### 2 4323-8, 40348-5 ####[facility] LABCLIA [id number] [place] [address] [place] Sodium [Moles/Vol] 139 mmol/L Normal 136-144 [facility] Comment on above: Order Comment: Speci men Type: BLOOD SPECIMENOrdering Facility: [facility] Address: [address] [place] [address] Performed By: #### 2 4323-8, 75681-8 ####[facility] LABCLIA [id number] [address] [address] [place] Urea nitrogen [Mass/Vol] 17 mg/dL Normal 7-21 [facility] Comment on above: Order Comment: Speci men Type: BLOOD SPECIMENOrdering Facility: [facility] Address: [address] [place] [address] Performed By: #### 2 4323-8, 42885-0 ####[facility] LABCLIA [id number] [address] [place] HbA1c (Bld)on 12-04-2023 Average glucose Estimated from glycated hemoglobin (Bld) [Mass/Vol] 114 mg/dL Normal [facility] Comment on above: Order Comment: Negin parson Type: BLOOD SPECIMENOrdering Facility: [facility] Address: [address] [place] [address] Result Comment: eAG: (Estimated average glucose) is a calculated value from HgbA1c and is business banking representative of the average blood glucose level in the last 2-3 month period. Performed By: #### 5 5454-3 ####[facility] LABCLIA [id number] [address] HbA1c (Bld) [Mass fraction] 5.6 % Normal 4.3-5.6 [facility] Comment on above: Order Comment: Negin parson Type: BLOOD SPECIMENOrdering Facility: [facility] Address: [address] [place] [address] Result Comment: Amer [place] Diabetes Association guidelines indicate that patients with HgbA1c in the range 5.7-6.4% are at increased risk for development of diabetes, and intervention by lifestyle modification may be beneficial. HgbA1c greater or equal to 6.5% is considered diagnostic of diabetes. Performed By: #### 5 5454-3 ####[facility] LABCLIA [id number] [address] [place] Lipid 1996 panelon 4 Cholesterol [Mass/Vol] 219 mg/dL High <200 [facility] Comment on above: Order Comment: Negin parson Type: BLOOD SPECIMENOrdering Facility: [facility] Address: [address] [place] [address] Result Comment: <200 mg/dL, Desirable 200-239 mg/dL, Borderline high>239 mg/dL, High Performed By: #### 2 4323-8, 60889-7 ####[facility] LABCLIA [id number] [address] [place] Cholesterol in HDL [Mass/Vol] 69 mg/dL Normal >39 [facility] Comment on above: Order Comment: Sharyni men Type: BLOOD SPECIMENOrdering Facility: [facility] Address: [address] [place] [address] Result Comment: 40-5 9 mg/dL, Acceptable>59 mg/dL, High: Negative risk factor for coronary heart disease<40 mg/dL, Low: Positive risk factor for coronary heart disease Performed By: #### 2 4323-8, 87585-4 ####[facility] LABCLIA [id number] [address] STATES [facility] Cholesterol in LDL [Mass/Vol] 125 mg/dL High <100 [facility] Comment on above: Order Comment: Sharyni men Type: BLOOD SPECIMENOrdering Facility: [facility] Address: [address] [place] [address] Result Comment: <100 mg/dL, Optimal 100-129 mg/dL, Near optimal/above optimal 130-159 mg/dL, Borderline high 160-189 mg/dL, High>189 mg/dL, Very highSecondary prevention optimal LDL Cholesterol levels are recommended to be < 70 mg/dL Performed By: #### 2 4323-8, 59293-0 ####[facility] LABCLIA [id number] [address] OF [facility] Cholesterol in LDL/Cholesterol in HDL [Mass ratio] 1.81 {ratio} Normal <2.54 [facility] Comment on above: Order Comment: Speci men Type: BLOOD SPECIMENOrdering Facility: [facility] Address: [address] [place] [address] Result Comment: [place] marion:1. National Cholesterol Education Program ATP III Guideline At-A-Glance Quick Desk Reference: National Heart, Lung, and Blood [place]. National Institutes of Health. 2001: NIH Publication No. 01-3305.2. An International Atherosclerosis Society position paper: global recommendations for the management of dyslipidemia: executive summary, Atherosclerosis. 2014: 232(2):410-413. Performed By: #### 2 4323-8, 61705-0 ####[facility] LABCLIA [id number] [place] [address] [place] Cholesterol in VLDL [Mass/Vol] 25 mg/dL Normal <30 [facility] Comment on above: Order Comment: Speci men Type: BLOOD SPECIMENOrdering Facility: [facility] Address: [address] [place] [address] Performed By: #### 2 4323-8, 60159-0 ####[facility] LABCLIA [id number] [place] [address] [place] Cholesterol non HDL [Mass/Vol] 150 mg/dL High <130 [facility] Comment on above: Order Comment: Speci men Type: BLOOD SPECIMENOrdering Facility: [facility] Address: [address] [place] [address] Result Comment: <130 mg/dL, Optimal 130-159 mg/dL, Near optimal/above optimal 160-189 mg/dL, Borderline high 190-219 mg/dL, High>219 mg/dL, Very highSecondary prevention optimal non HDL Cholesterol levels are recommended to be <100 mg/dL Performed By: #### 2 4323-8, 81472-3 ####[facility] LABCLIA [id number] [place] [address] [place] Cholesterol.total/Cho lesterol in HDL [Mass ratio] 3.17 {ratio} Normal <5.10 [facility] Comment on above: Order Comment: Speci men Type: BLOOD SPECIMENOrdering Facility: [facility] Address: [address] [place] [address] Performed By: #### 2 4323-8, 24968-1 ####[facility] LABCLIA [id number] [place] [id number] [place] FASTING TIME 12 hrs Normal [facility] Comment on above: Order Comment: Speci men Type: BLOOD SPECIMENOrdering Facility: [facility] Address: [address] [place] [id number] Performed By: #### 2 4323-8, 22228-4 ####[facility] LABCLIA [id number] [place] [id number] [place] Triglyceride [Mass/Vol] 124 mg/dL Normal <150 [facility] Comment on above: Order Comment: Speci men Type: BLOOD SPECIMENOrdering Facility: [facility] Address: [address] [place] [address] Result Comment: <150 mg/dL, Normal 150-199 mg/dL, Borderline high 200-499 mg/dL, High>499 mg/dL, Very high Performed By: #### 2 4323-8, 37929-1 ####[facility] LABCLIA [id number] [place] [id number] [facility] OF [place] 36on 11-30-2023 36 PAT: 01.05.2024 at 1 1 am SX: 01.17.2024 at 7:30 am arrival at 5:30 am Post op 02.27.2024 at 10 am Folder and instructions given. [facility] 36 Unable to get throug h. Message sent via my chart Called to provide surgery info. I need to talk to the patient when/if she calls in Thanks [facility] Bacteria identified Cx Nom ( U)on 11-30-2023 [facility] - Microbiology an d Antimicrobial susceptibilityon 11-30-2023 Bacteria identified Cx Nom (U) SEE NOTE [facility] Comment on above: CULTURE, URINE, ROUTINE Micro Number: [id number] Test Status: Final Specimen Source: Urine Specimen Quality: Adequate Result: No Growth Urinalysis complete panel (U )on 11-29-2023 Appearance (U) CLOUDY [facility] B[facility] LM.HPF (Urine sed) [#/Area] NONE SEEN NONE SEEN /HPF [facility] Bilirubin Ql (U) Negative NEGATIVE [facility] alth Color (U) YELLOW YELLOW [facility] Epithelial cells.squamous LM.HPF (Urine sed) [#/Area] NONE SEEN < OR = 5 /HPF [facility] Glucose Ql (U) Negative NEGATIVE [facility] Hemoglobin Ql (U) TRACE Abnormal NEGATIVE [facility] ealth Hyaline casts (Urine sed) [#/Area] NONE SEEN NONE SEEN /LPF [facility] Interpretation and review of laboratory results Abnormal [facility] Ketones Ql (U) Negative NEGATIVE [facility] Leukocyte esterase Test strip Ql (U) Negative NEGATIVE [facility] Nitrite Ql (U) Negative NEGATIVE [facility] pH (U) 8.0 [pH] 5.0 - 8.0 [facility] Protein Ql (U) Negative NEGATIVE [facility] RBC LM.HPF (Urine sed) [#/Area] NONE SEEN < OR = 2 /HPF [facility] Service comment (Unsp spec) [Interp] [facility] Comment on above: This urine was jessica zed for the presence of WBC, RBC, bacteria, casts, and other formed elements. Only those elements seen were reported. Specific gravity (U) [Rel density] 1.009 1.001 - 1.035 [facility] WBC LM.HPF (Urine sed) [#/Area] NONE SEEN < OR = 5 /HPF [facility] Office Visiton 11-28-2023 Follow-up visit [id number] David Mitchell i 1950 F Date Provider Department Center 11/28/2023 [id number] [facility] UR None Family History Problem Relation Age of Onset Colon cancer Mother Hypertension Mother Colon cancer Father Diabetes Father Hypertension Maternal Grandmother Family Status - Relation Status Age at Mother Father Maternal Grandmother Level of Service:10592 [place] OFFICE/OUTPATIENT NEW MODERATE MDM 45 MINUTES (25) Reason for Visit and Comments: New Patient [542] - Combo surgery for prolapse with dr chery. Urgency frequency, leaking of gas occasional., not emptying bladder. ALVIN, and urge incont. Normal [facility] Progress Noteon 11-28-2023 Progress Note Pig Conveyor Operator was evin owusu to the patient for exam. Patient accepted, director medical science in room during exam,KIRSTEN SANCHEZ MA Normal [facility] Progress Note Female Pelvic Medici ne [...] of her POP. 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 HOCM (hypertrophic obstructive cardiomyopathy) (CMS/HCC) ([facility]) Hypercalcemia 08/09/2018 Incomplete uterovaginal prolapse 04/05/2016 Insomnia Melanocytic nevi of trunk Monoclonal gammopathy 03/30/[address] Oneill annually Multinodular thyroid 10/27/2011 Non-rheumatic mitral regurgitation 03/18/2020 Last ECHO 2009 Normal pelvic exam 01/24/2017 Obstructive cardiomyopathy (CMS/HCC) (HCC) 01/28/2019 Osteoporosis 10/10/2011 Seen by and Rosalinda in 2011 Postmenopausal atrophic vaginitis 01/09/2015 Precordial pain 01/28/2019 Psychophysiological insomnia 10/26/2011 Pulmonary embolism ([facility]) Renal cyst Restrictive lung disease due to [...] kyphoscoliosis. Small airways disease SVT (supraventricular tachycardia) ([facility]) 01/14/2020 Per 7d holtor monitor: HR 62-167, [...] hr cap (more content not included)... Normal [facility] Urinalysis macro (dipstick) panel (U)on 11-28-2023 Bilirubin, [facility]A [facility]-Intact [facility] Glucose, UA Negative [facility] Interpretation and review of laboratory results Abnormal [facility] Ketones, POC (mg/dL) Negative [facility] Leukocytes, UA Negative [facility] th Nitrite, UA Negative [facility] pH, UA 7.5 [facility] Protein, UA Negative [facility] Spec Grav, UA 1.020 [facility] Urobilinogen, UA 0.2 [facility] He alth [facility] Radiology Study observation (narrative) [facility] 36on 11-27-2023 36 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 She verbalizes understanding. Normal [facility] [address] for CT scan on 12/06/23 in [place]. Has allergy to contrast. Please send in rx to pharmacy. She uses [facility] in [place]. Thank you! 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 None Family History Problem Relation Age of Onset Colon cancer Mother Hypertension Mother Colon cancer Father Diabetes Father Hypertension Maternal Grandmother Family Status - Relation Status Age at Mother Father Maternal Grandmother Level of Service:20559 CA OFFICE/OUTPATIENT NEW MODERATE MDM 45 MINUTES Reason for Visit and Comments: Female Problem [263] [facility] CNOVon 11-20-2023 CNOV Normal [facility] Heart Perfusion W stress and W radionuclide Silas 10-16-2023 * * *Final Report* * * DATE OF EXAM: Oct 16 2023 10:05AM ANIKA Morales6 Maureen [place] CARDIAC PERF STRESS/PHARM / PROCEDURE REASON: Chest pain, unspecified type * * * * Physician Interpretation * * * * Stress Outside Sales Advertising Executive Report: [facility] Date of service: 10/16/2023 7:29:20 AM Supervising physician: Clary Nolasco MD PATIENT: Name: MRS. VANDANA MITCHELL Age: 73 years Gender: F The supervising physician was in the department and immediately available. * * * Final * * * ------ PATIENT: Name: MRS. VANDANA MITCHELL Age: 73 [...] later. See administered radiotracer and doses below. [facility] Date of service: 10/16/2023 7:29:20 AM [...] * * * Final * * * ------ Stress ECG Report: [facility] Date of service: 10/16/2023 7:29:20 AM Ordering physician: RYLEE DUARTE verifying specialist: Grecia Fine RN Interpreting physician: Clary Nolasco MD Patient [...] 152/86 mmHg. [place] product [place] [address]. Medications: Last Used DILTIAZEM 2 Da (more content not included)... DIVISION OF RADIOLOGY Provider, [facility] Sarah [facility] - 10/16/2023 * * *Final Report* * * DATE OF EXAM: Oct 16 2023 10:05[facility] 0006 - [place] CARDIAC PERF STRESS/PHARM / PROCEDURE REASON: Chest pain, unspecified type * * * * Physician Interpretation * * * * Stress Outside Sales Advertising Executive Report: [facility] Date of service: 10/16/2023 7:29:20 AM Supervising physician: Clary Nolasco MD PATIENT: Name: MRS. VANDANA MITCHELL Age: 73 years Gender: F The supervising physician was in the department and immediately available. * * * Final * * * ------ PATIENT: Name: MRS. VANDANA MITCHELL Age: 73 [...] later. See administered radiotracer and doses below. [facility] Date of service: 10/16/2023 7:29:20 AM [...] * * * Final * * * ------ Stress ECG Report: [facility] Date of service: 10/16/2023 7:29:20 AM Ordering physician: RYLEE DUARTE verifying specialist: Grecia Fine RN Interpreting physician: Clary Nolasco MD Patient [...] 152/86 mmHg. The double product achieved was 12[address]. Medications: Last Used DILTIAZEM 2 Days Resting ECG: Normal Sinus Rhythm Symptoms at rest: No symptoms Pharamcologic Protocol: Regadenoson Stress Exercise Table: +-----+---+---+---+ Stage HR SYS MAGGY +-----+---+---+---+ 1 121 +-----+---+---+---+ 2 123 150 70 +-----+--- (more content not included)... [facility] Radiology Study observation (narrative) [facility] NM Heart Perfusion W stress and W radionuclide IVOrdered By: Ccf Provider on 10-16-2023 [facility] CBC W Auto Differential pane l (Bld)on 09-04-2023 Basophils (Bld) [#/Vol] 0.11 10*3/uL High <0.11 k/uL [facility] Basophils/100 WBC (Bld) 1.7 % [facility] Differential cell count method Nom (Bld) Auto [facility] Eosinophils (Bld) [#/Vol] 0.11 10*3/uL <0.46 k/uL [facility] Eosinophils/100 WBC (Bld) 1.7 % [facility] Erythrocyte distribution width (RBC) [Ratio] 14.5 % 11.5 - 15.0 % [facility] Hematocrit (Bld) [Volume fraction] 39.8 % 36.0 - 46.0 % [facility] Hemoglobin (Bld) [Mass/Vol] 12.7 g/dL 11.5 - 15.5 g/dL [facility] Immature granulocytes (Bld) [#/Vol] <0.10 k/uL [facility] Immature granulocytes/100 WBC (Bld) 0.3 % [facility] Lymphocytes (Bld) [#/Vol] 1.34 10*3/uL 1.00 - 4.00 k/uL [facility] Lymphocytes/100 WBC (Bld) 21.0 % [facility] MCH (RBC) [Entitic mass] 26.5 pg 26.0 - 34.0 pg [facility] MCHC (RBC) [Mass/Vol] 31.9 g/dL 30.5 - 36.0 g/dL [facility] MCV (RBC) [Entitic vol] 82.9 fL 80.0 - 100.0 fL [facility] Monocytes (Bld) [#/Vol] 0.72 10*3/uL <0.87 k/uL [facility] Monocytes/100 WBC (Bld) 11.3 % [facility] Neutrophils (Bld) [#/Vol] 4.08 10*3/uL 1.45 - 7.50 k/uL [facility] Neutrophils/100 WBC (Bld) 64.0 % [facility] Nucleated RBC (Bld) [#/Vol] <0.01 k/uL [facility] Nucleated RBC/100 WBC (Bld) [Ratio] 0.0 /100 WBC [facility] Platelet mean volume (Bld) [Entitic vol] 11.9 fL 9.0 - 12.7 fL [facility] Platelets (Bld) [#/Vol] 277 10*3/uL 150 - 400 k/uL [facility] RBC (Bld) [#/Vol] 4.80 10*6/uL 3.90 - 5.2 0 m/uL [facility] WBC (Bld) [#/Vol] 6.38 10*3/uL 3.70 - 11. 00 k/uL [facility] CK CREATINE KINASEon 024 CK [Catalytic activity/Vol] 52 U/L 42 - 196 U/L [facility] Comprehensive metabolic 2000 panelon 09-04-2023 Albumin [Mass/Vol] 4.5 g/dL 3.9 - 4.9 g/dL [facility] ALP [Catalytic activity/Vol] 63 U/L 34 - 123 U/L [facility] ALT [Catalytic activity/Vol] 17 U/L 7 - 38 U/L [facility] Anion gap [Moles/Vol] 11 mmol/L 9 - 18 mmol/L [facility] AST [Catalytic activity/Vol] 27 U/L 13 - 35 U/L [facility] Bilirubin [Mass/Vol] 0.2 mg/dL 0.2 - 1 .3 mg/dL [facility] Calcium [Mass/Vol] 10.9 mg/dL High 8.5 - 10. 2 mg/dL [facility] Chloride [Moles/Vol] 103 mmol/L 97 - 10 5 mmol/L [facility] CO2 [Moles/Vol] 28 mmol/L 22 - 30 mmol/L [facility] Creatinine [Mass/Vol] 0.64 mg/dL 0.58 - 0.96 mg/dL [facility] Estimated Glomerular Filtration Rate 93 mL/min/1.73m >=60 mL/min/1.73m [facility] Glucose [Mass/Vol] 85 mg/dL 74 - 99 mg/dL [facility] Potassium [Moles/Vol] 4.2 mmol/L 3.7 - 5.1 mmol/L [facility] Protein [Mass/Vol] 6.2 g/dL Low 6.3 - 8.0 g/dL [facility] Sodium [Moles/Vol] 142 mmol/L 136 - 144 mmol/L [facility] Urea nitrogen [Mass/Vol] 17 mg/dL 7 - 21 mg/dL [facility] ECHOon 07-10-2023 [facility] LVEF TRANSTHORACIC ECHOon LV Ejection Fraction 72 % [facility] BONE MARROW ANALYSISon 06-14 CASE REPORT Normal [facility] Comment on above: Order Comment: Speci men Type: BONE MARROW SPECIMEN Ordering Facility: [facility] Address: [address] [place] [address] Result Comment: Bone Marrow Pathology Report Case: [id number] Authorizing Provider: Danny Oneill DO Collected: 06/14/2023 11:03 AM Ordering Location: [facility] Radiology Received: 06/14/2023 11:43 AM Pathologist: Dakotah Lunsofrd MD Specimens: A) - BONE MARROW ASPIRATE RIGHT POSTERIOR ILIAC CREST B) - BONE MARROW BIOPSY RIGHT POSTERIOR ILIAC CREST C) - BONE MARROW CLOT RIGHT POSTERIOR ILIAC CREST D) - Peripheral blood smear Performed By: #### B MRT #### [facility] CLIA [id number] [address] [place] [address] FINAL DIAGNOSIS Normal [facility] Comment on above: Order Comment: Negin parson Type: BONE MARROW SPECIMEN Ordering Facility: [facility] Address: [address] [place] [address] Result Comment: A-C. Bone marrow, aspirate smear and core biopsy, with clot section: - Normocellular marrow (30%) with trilineage hematopoiesis and no diagnostic features of involvement by plasma cell neoplasm, see comment. D. Peripheral blood smear: - No cytologic abnormalities. Performed By: #### B MRT #### [facility] CLIA [id number] [address] [place] [address] GROSS DESCRIPTION Normal [facility] Comment on above: Order Comment: Negin parson Type: BONE MARROW SPECIMEN Ordering Facility: [facility] Address: [address] [place] [address] Result Comment: A. B ONE MARROW ASPIRATE [...] for light microscopy. Gross examination performed at [place] [address] [facility] [place] [address] FFS 06/14/2023 6:58 PM Performed By: #### B MRT #### [facility] CLIA [id number] [address] [facility] [id number] [address] [place] MICROSCOPIC DESCRIPTION Normal [facility] Comment on above: Order Comment: Speci men Type: BONE MARROW SPECIMEN Ordering Facility: [facility] Address: [address] [facility], [place] [address] Result Comment: RENETTA PHERAL BLOOD: CBC (06/14/2023 [...] stored. Performed By: #### B MRT #### [facility] CLIA [id number] [address] [place] [address] [place] BONE MARROW CHROMOSOME ANALo n 06-14-2023 CHROMOSOME BM Normal [facility] Comment on above: Order Comment: Order ing Facility: [facility] Address: [address] [place] [address] Result Comment: Thao greenfield Accession Number: [id number] Doctor: Danny Oneill Pathologist: [facility] No: [id number] Clinical diagnosis: Monoclonal gammopathy Specimen Type: Bone [...] by Eleanor Brunner, PhD, FACMG Performed by [facility] Pathology and Laboratory Medicine [place] Division of Molecular Pathology [facility], [place] [address] [place] [address]. [place] [address] Toll free: Performed By: #### [facility] #### [facility] CLIA [id number] [address] [place] [address] [place] CBC W Auto Differential pane l (Bld)on 06-14-2023 Basophils (Bld) [#/Vol] 0.10 10*3/uL Normal <0.11 [facility] Comment on above: Order Comment: Speci men Type: BLOOD SPECIMEN Ordering Facility: [facility] Address: [address] [place] [address] Performed By: #### 5 7021-8 #### [facility] CLIA [id number] [address] [place] Basophils/100 WBC (Bld) 1.4 % Normal [facility] Comment on above: Order Comment: Speci men Type: BLOOD SPECIMEN Ordering Facility: [facility] Address: [address] [place] [address] Performed By: #### 5 7021-8 #### [facility] CLIA [id number] [address] OF [place] Differential cell count method Nom (Bld) Auto Normal [facility] Comment on above: Order Comment: Speci men Type: BLOOD SPECIMEN Ordering Facility: [facility] Address: [address] [place] [address] Performed By: #### 5 7021-8 #### [facility] CLIA [id number] [address] OF [facility] Eosinophils (Bld) [#/Vol] 0.06 10*3/uL Normal <0.46 [facility] Comment on above: Order Comment: Speci men Type: BLOOD SPECIMEN Ordering Facility: [facility] Address: [address] [place] [address] Performed By: #### 5 7021-8 #### [facility] CLIA [id number] [address] Eosinophils/100 WBC (Bld) 0.8 % Normal [facility] Comment on above: Order Comment: Speci men Type: BLOOD SPECIMEN Ordering Facility: [facility] Address: [address] [place] [address] Performed By: #### 5 7021-8 #### [facility] CLIA [id number] [address] Erythrocyte distribution width (RBC) [Ratio] 13.8 % Normal 11.5-15.0 [facility] Comment on above: Order Comment: Speci men Type: BLOOD SPECIMEN Ordering Facility: [facility] Address: [address] [place] [address] Performed By: #### 5 7021-8 #### [facility] CLIA [id number] [address] [place] Hematocrit (Bld) [Volume fraction] 35.9 % Low 36.0-46.0 [facility] Comment on above: Order Comment: Speci men Type: BLOOD SPECIMEN Ordering Facility: [facility] Address: [address] [place] [address] Performed By: #### 5 7021-8 #### [facility] CLIA [id number] [address] OF [place] Hemoglobin (Bld) [Mass/Vol] 11.8 g/dL Normal 11.5-15.5 [facility] Comment on above: Order Comment: Speci men Type: BLOOD SPECIMEN Ordering Facility: [facility] Address: [address] [place] [address] Performed By: #### 5 7021-8 #### [facility] CLIA [id number] [address] Immature granulocytes (Bld) [#/Vol] 10*3/uL Normal <0.10 [facility] Comment on above: Order Comment: Speci men Type: BLOOD SPECIMEN Ordering Facility: [facility] Address: [address] [place] [address] Performed By: #### 5 7021-8 #### [facility] CLIA [id number] [address] Immature granulocytes/100 WBC (Bld) 0.3 % Normal [facility] Comment on above: Order Comment: Speci men Type: BLOOD SPECIMEN Ordering Facility: [facility] Address: [address] [place] [address] Performed By: #### 5 7021-8 #### [facility] CLIA [id number] [address] [place] Lymphocytes (Bld) [#/Vol] 1.05 10*3/uL Normal 1.00-4.00 [facility] Comment on above: Order Comment: Speci men Type: BLOOD SPECIMEN Ordering Facility: [facility] Address: [address] [place] [address] Performed By: #### 5 7021-8 #### [facility] CLIA [id number] [address] Lymphocytes/100 WBC (Bld) 14.2 % Normal [facility] Comment on above: Order Comment: Speci men Type: BLOOD SPECIMEN Ordering Facility: [facility] Address: [address] [place] [address] Performed By: #### 5 7021-8 #### [facility] CLIA [id number] [address] MCH (RBC) [Entitic mass] 27.1 pg Normal 26.0-34.0 [facility] Comment on above: Order Comment: Speci men Type: BLOOD SPECIMEN Ordering Facility: [facility] Address: [address] [place] [address] Performed By: #### 5 7021-8 #### [facility] CLIA [id number] [address] MCHC (RBC) [Mass/Vol] 32.9 g/dL Normal 30.5-36.0 [facility] Comment on above: Order Comment: Speci men Type: BLOOD SPECIMEN Ordering Facility: [facility] Address: [address] [place] [address] Performed By: #### 5 7021-8 #### [facility] CLIA [id number] [address] MCV (RBC) [Entitic vol] 82.3 fL Normal 80.0-100.0 [facility] Comment on above: Order Comment: Speci men Type: BLOOD SPECIMEN Ordering Facility: [facility] Address: [address] [place] [address] Performed By: #### 5 7021-8 #### [facility] CLIA [id number] [address] Monocytes (Bld) [#/Vol] 0.54 10*3/uL Normal <0.87 [facility] Comment on above: Order Comment: Speci men Type: BLOOD SPECIMEN Ordering Facility: [facility] Address: [address] [place] [address] Performed By: #### 5 7021-8 #### [facility] CLIA [id number] [address] [place] [address] [place] Monocytes/100 WBC (Bld) 7.3 % Normal [facility] Comment on above: Order Comment: Speci men Type: BLOOD SPECIMEN Ordering Facility: [facility] Address: [address] [place] [address] Performed By: #### 5 7021-8 #### [facility] CLIA [id number] [address] [place] [address] [place] Neutrophils (Bld) [#/Vol] 5.60 10*3/uL Normal 1.45-7.50 [facility] Comment on above: Order Comment: Speci men Type: BLOOD SPECIMEN Ordering Facility: [facility] Address: [address] [place] [address] Performed By: #### 5 7021-8 #### [facility] CLIA [id number] [address] Neutrophils/100 WBC (Bld) 76.0 % Normal [facility] Comment on above: Order Comment: Speci men Type: BLOOD SPECIMEN Ordering Facility: [facility] Address: [address] [place] [address] Performed By: #### 5 7021-8 #### [facility] CLIA [id number] [address] [place] [address] [place] [facility] [place] Nucleated RBC (Bld) [#/Vol] 10*3/uL Normal <0.01 [facility] Comment on above: Order Comment: Speci men Type: BLOOD SPECIMEN Ordering Facility: [facility] Address: [address] [place] [address] Performed By: #### 5 7021-8 #### [facility] CLIA [id number] [address] [place] [address] [place] Nucleated RBC/100 WBC (Bld) [Ratio] 0.0 /100 WBC Normal [facility] Comment on above: Order Comment: Speci men Type: BLOOD SPECIMEN Ordering Facility: [facility] Address: [address] [place] [address] Performed By: #### 5 7021-8 #### [facility] CLIA [id number] [address] [place] [address] [place] Platelet mean volume (Bld) [Entitic vol] 10.4 fL Normal 9.0-12.7 [facility] Comment on above: Order Comment: Speci men Type: BLOOD SPECIMEN Ordering Facility: [facility] Address: [address] [place] [address] Performed By: #### 5 7021-8 #### [facility] CLIA [id number] [address] OF [place] Platelets (Bld) [#/Vol] 254 10*3/uL Normal 150-400 [facility] Comment on above: Order Comment: Speci men Type: BLOOD SPECIMEN Ordering Facility: [facility] Address: [address] [place] [address] Performed By: #### 5 7021-8 #### [facility] CLIA [id number] [address] OF [place] RBC (Bld) [#/Vol] 4.36 10*6/uL Normal 3.90-5.20 [facility] Comment on above: Order Comment: Speci men Type: BLOOD SPECIMEN Ordering Facility: [facility] Address: [address] [place] [address] Performed By: #### 5 7021-8 #### [facility] CLIA [id number] [address] OF [place] WBC (Bld) [#/Vol] 7.37 10*3/uL Normal 3.70-11.00 [facility] Comment on above: Order Comment: Speci men Type: BLOOD SPECIMEN Ordering Facility: [facility] Address: [address] [place] [address] Performed By: #### 5 7021-8 #### [facility] CLIA [id number] [address] BONE MARROW BX AND ASPIRA Perla 06-14-2023 CT BONE MARROW BX AND ASPIRATION * * *Final Report* * * DATE OF EXAM: Jun 14 2023 11:16AM [facility] 2218 - CT BONE MARROW BX AND [...] SUCCESSFUL CT-GUIDED BONE MARROW ASPIRATION AND BIOPSY. Extracorporeal Technician: ABHIJIT Transcribe Date/Time: Jun 14 2023 1:37P Dictated by : STACEY GIANG DO This examination was interpreted and the report reviewed and electronically signed by: STACEY GIANG DO on Jun 14 2023 1:38PM EST [id number] Normal [facility] DNA EXTRACTION BONE MARROW ( BUFFY COAT)on 06-14-2023 DNA EXTRACTION BONE MARROW (BUFFY COAT) Normal [facility] Comment on above: Order Comment: Negin parson Type: BONE MARROW SPECIMEN Ordering Facility: [facility] Address: [address] [place] [address] Result Comment: This specimen was received and successfully processed for future DNA purification should molecular testing be needed. Specimens will be available for 3 years from date of collection. To order testing on this specimen for [facility] patients, please place an [facility] order for DNA and RNA Clinical Testing ([id number]). To order testing for patients outside of the [facility] system, please request DNA and RNA for Clinical Testing, order code [id number]. If additional paperwork is required for testing, please send completed forms via secure email to . Performed By: #### N UCBUF #### [facility] [id number] [address] [place] [address] [place] [facility] FISH FOR PLASMA CELL MYELOMA on 06-14-2023 FISH FOR PLASMA CELL MYELOMA Normal [facility] Comment on above: Order Comment: Negin parson Type: BONE MARROW SPECIMEN Ordering Facility: [facility] Address: [address] [place] [address] Result Comment: FISH for Plasma Cell Myeloma Laboratory Accession Number: [id number] Case: [id number] Sample type: Bone Marrow Aspirate Number of [...] from the Clinical Advisory Committee. Blood. 2021 15;140(11):4892-7741 (PMID: 38028638) 2) Cardoso SK, Barry SV. The multiple myelomas - current concepts in cytogenetic classification and therapy. Huyen Rev Oncol. 2018;15(7):409-421 (PMID: 53887939) 3) Landon JR et al. Management of newly diagnosed symptomatic multiple myeloma: updated [place] Stratification of Myeloma and Risk- Adapted Therapy (mSMART) consensus guidelines 2013. [place] Clin Proc 2013 Sep;88(4):360-76 (PMID: 88748275) 4) Tammy NEGRETE et al. Consensus recommendations for risk stratification in multiple myeloma: report of the International Myeloma Workshop Consensus Panel 2. Blood 2010October 07;117(18):6636-0037 (PMID: 99945160) METHODOLOGY: Bone marrow plasma cells were isolated by CD138 purification ([employer], [employer], [place], [place], [place]). Interphase fluorescence in situ hybridization was performed using probes to the CDKN2C locus on chromosome 1p32 ([employer]/CytoAPX), CKS1B locus on chromosome 1q21 (Dash Prolebrityysis/CytoAPX), chromosome 9 centromere ([employer]), t(11;14) (IGH/CCND1) dual color dual fusion probe ([employer]), 13q14 ([employer], [facility], [place]), IGH locus on chromosome 14q32 (LSI IGH Dual Color, [employer], [employer]), chromosome 15 centromere (D[employer]), and the TP53 locus on chromosome 17p13 ([employer]). 100 plasma cells were scored whenever possible. DISCLAIMER: This test was developed and its performance characteristics determined by the [facility] Pathology and Laboratory Medicine [place] ([facility]). It has not been cleared or approved by the FDA. [facility] is regulated under CLIA as qualified to perform high- complexity testing. This test is used for clinical purposes. It should not be regarded as investigational or for research. Interpretation performed at [facility], [address] [place] [address]. CLIA Number: [id number] As reviewed by Jad Loomis MD, PhD Performed By: #### [facility] #### [facility] CLIA [id number] [address] [place] [address] OF [place] FLOW CYTOMETRY FOR LEUKEMIA/ LYMPHOMA (FCLL) PERFORMABLEon 06-14-2023 FLOW CYTOMETRY ORDER STATUS See Results in chart under F case ID [facility] Comment on above: Order Comment: Speci men Type: BONE MARROW SPECIMEN Ordering Facility: [facility] Address: [address] [place] [address] Performed By: #### F CLLP, FCLLRFLX #### [facility] CLIA [id number] [address] [place] [address] OF [place] FLOW CYTOMETRY FOR LEUKEMIA/ LYMPHOMA (FCLL) REFLEXon 06-14-2023 DIAGNOSIS COMMENT Normal [facility] Comment on above: Order Comment: Sharyni eb Type: BONE MARROW SPECIMEN Ordering Facility: [facility] Address: [address] [place] [address] Result Comment: This assay is not designed to detect minimal residual disease or myeloid antigen maturational patterns. This test was developed and its performance characteristics determined by [facility] Pathology and Laboratory Medicine [place] (RT-PL[facility]). It has not been cleared or approved by the FDA. [facility] is regulated under CLIA as qualified to perform high-complexity testing. This test is used for clinical purposes. It should not be regarded as investigational or for research. Performed By: #### F CLLP, FCLLRFLX #### [facility] CLIA [id number] [address] [place] [address] Result Comment: The history of monoclonal gammopathy [...] been determined by the performing laboratory within [facility]???s [facility] Pathology and Laboratory Medicine [place] ([facility], [facility], [facility], [facility], [facility], [facility], or [facility]) in a manner consistent with CLIA requirements. One or more of these tests have not been cleared or approved by the FDA. [facility] is regulated under CLIA as qualified to perform high-complexity testing. These tests are used for clinical purposes. They should not be regarded as investigational or for research. Positive and negative controls stain appropriately. Performed By: #### B MRT #### [facility] CLIA [id number] [address] [place] [address] FINAL PERFORMING LAB Normal [facility] Comment on above: Order Comment: Speci men Type: BONE MARROW SPECIMEN Ordering Facility: [facility] Address: [address] [place] [address] Result Comment: Diag nostic interpretation performed at [facility] [address] [address] CLIA# [id number] City Driver: Isaiah Oconnell M.D. Performed By: #### F CLLP, FCLLRFLX #### [facility] CLIA [id number] [address] [place] [address] [place] Performed By: #### B MRT #### [facility] CLIA [id number] [address] [place] [address] [place] FLOW CYTOMETRY RESULTS Normal [facility] Comment on above: Order Comment: Speci men Type: BONE MARROW SPECIMEN Ordering Facility: [facility] Address: [address] [place] [address] Result Comment: Spec imen type: Bone marrow [...] slight skew toward lambda light chain expression ([place]:Lambda = 0.6:1).They show partial CD19 expression (CD19 positive subset is also polytypic and more equally expressing kappa and lambda), and are otherwise phenotypically unremarkable. Performed By: #### F CLLP, FCLLRFLX #### [facility] CLIA [id number] [facility] [address] [place] GROSS DESCRIPTION A. Bone Marrow Normal [facility] Comment on above: Order Comment: Speci [facility] Type: BONE MARROW SPECIMEN Ordering Facility: [facility] Address: [address] [place] [address] Result Comment: Rece ived 2 mls bone marrow in na hep Performed By: #### F CLLP, FCLLRFLX #### [facility] CLIA [id number] [address] [place] [address] [place] INTERPRETATION Normal [facility] Comment on above: Order Comment: Speci men Type: BONE MARROW SPECIMEN Ordering Facility: [facility] Address: [address] [place] [address] Result Comment: The findings of a light chain expression pattern skewed toward lambda raise concern for the presence of a small monoclonal plasma cell population. There is no evidence of involvement by a lymphoproliferative disorder or abnormal blast population. Correlation with the clinical, laboratory, radiologic, and bone marrow histopathologic findings is suggested. Performed By: #### F CLLP, FCLLRFLX #### [facility] CLIA [id number] [address] [place] [address] [place] HISTORY PHYSICALon HISTORY PHYSICAL HNO ID: [id number] Author: STACEY GIANG DO Service: Radiology Author [...] SIGNATURE: Stacey Giang DO PATIENT NAME: Vandana Lees Paula DATE: June 14, 2023 TIME: 10:58 AM Normal [facility] 06-09-2023 CNPN Telephone (MEXR) PAULAVANDANA Lees ([id number]) 1950 F NFR Date Time Provider Department 06/09/23 PRIYA CAMARILLO During your visit today, we recorded the following information about you: Priya Camarillo RN 06/09/2023 12:12 PM Signed You are scheduled for a Bone Marrow Biopsy, On 06/14/2023. You are to arrive at 0900 am for a 1030 procedure time and Report to [facility]: Entrance A (behind hospital), Elevators on [...] if they are not done at a [facility] facility. . Coding Compliance Manager/Transportation: How will you be arriving for your procedure? Private car. You will need a responsible adult to accompany you to and from the procedure. Your national dedicated truck driver is required to stay with you until you are taken into the procedure room. Please call with any questions or concerns [phone] opt 3 Allergies As of Date: 06/09/2023 [...] 11/17/2022 Epistax (more content not included)... Normal [facility] DXA-AXIAL SKELETONon 023 [facility] Absolute lymphocyte countOrd ered By: Dr. Terrell on 10-18-2022 Lymphocytes Auto (Unsp spec) [#/Vol] 0.84 10*3/uL 0.83-4.51 [facility] Basophil percentageOrdered B y: Dr. Terrell on 10-18-2022 Basophils/100 WBC (Bld) 0.7 % 0-1 [facility] Chloride [Moles/Vol] 104 mmol/L 98-107 [facility] Eosinophils/100 WBC (Bld) 0.1 % 0-5 [facility] Glucose [Mass/Vol] 105 mg/dL 74-106 [facility] Comment on above: Fasting Glucose resu lt from 100 to 125 mg/dL suggests IMPAIRED HOMEOSTASIS per A.D.A. criteria. Neutrophils (Bld) [#/Vol] 10.8 10*3/uL 2.0-7.7 [facility] Neutrophils/100 WBC (Bld) 86.8 % 47-70 [facility] Potassium [Moles/Vol] 4.1 mmol/L 3.5-5.1 [facility] Sodium [Moles/Vol] 138 mmol/L 136-145 [facility] WBC (Bld) [#/Vol] 12.5 10*3/uL 4.4-11.0 [facility] Blood erythrocytes count (nu mber/volume)Ordered By: Dr. Terrell on 10-18-2022 RBC (Bld) [#/Vol] 4.32 10*6/uL 4.2-5.4 [facility] Blood hemoglobin measurement (mass/volume)Ordered By: Dr. Terrell on 10-18-2022 Hemoglobin (Bld) [Mass/Vol] 11.5 g/dL 12.0-15.0 [facility] Blood lymphocytes/100 leukoc ytesOrdered By: Dr. Terrell on 10-18-2022 Lymphocytes/100 WBC (Bld) 6.7 % 19-41 [facility] Blood monocytes/100 leukocyt esOrdered By: Dr. Terrell on 10-18-2022 Monocytes/100 WBC (Bld) 5.2 % 0-10 [facility] Blood platelet mean volumeOr dered By: Dr. Terrell on 10-18-2022 Platelet mean volume (Bld) [Entitic vol] 10.5 fL 6.2-12.0 [facility] Determination of erythrocyte mean corpuscular volume (MCV)Ordered By: Dr. Terrell on 10-18-2022 MCV (RBC) [Entitic vol] 85.4 fL 81-99 [facility] Hematocrit Auto (Bld) [Volum e fraction]Ordered By: Dr. Terrell on 10-18-2022 Hematocrit (Bld) [Volume fraction] 36.9 % 37-47 [facility] INR in Blood by Coagulation assayOrdered By: Dr. Terrell on 10-18-2022 INR Coag (Bld) [Relative time] 1.1 {INR} [facility] Laboratory - Chemistry and C hemistry - challengeOrdered By: Dr. Terrell on 10-18-2022 CO2 [Moles/Vol] 29.0 mmol/L 21.0-32.0 [facility] Urea nitrogen/Creatinine [Mass ratio] 24.4 mg/mg 10-20 [facility] Laboratory - CoagulationOrde red By: Dr. Terrell on 10-18-2022 aPTT Coag (Bld) [Time] 35.0 s 24.1-36.2 [facility] PT Coag (PPP) [Time] 13.9 s 11.7-14.9 [facility] Laboratory - Hematology and Cell countsOrdered By: Dr. Terrell on 10-18-2022 Erythrocyte distribution width (RBC) [Entitic vol] 42.5 fL 35.1-43.9 [facility] Erythrocyte distribution width (RBC) [Ratio] 13.8 % 11.6-14.6 [facility] Immature granulocytes/100 WBC (Bld) 0.500 % 0.0-0.9 [facility] Comment on above: IG% - Immature Granu locytes (promyelocytes, myelocytes and metamyelocytes) > 1% indicates that a LEFT SHIFT is Present. MCH (RBC) [Entitic mass] 26.6 pg 27.0-32.0 [facility] Nucleated RBC/100 WBC (Bld) [Ratio] 0 % 0-5 [facility] MCHC Auto (RBC) [Mass/Vol]Or dered By: Dr. Terrell on 10-18-2022 MCHC (RBC) [Mass/Vol] 31.2 g/dL 32-36 [facility] No Panel InformationOrdered By: Dr. Terrell on 10-18-2022 Estimated Creatinine Clearance Calc 39.63 ml/min [facility] Estimated GFR (MDRD) Amer 106 mL/min >60 [facility] Comment on above: GFR Calc Estimated GFR (MDRD) Non-Af Amer 87 mL/min >60 [facility] Comment on above: Non- GFR Calc Platelets bldOrdered By: Dr. Terrell on 10-18-2022 Platelets (Bld) [#/Vol] 248 10*3/uL 150-450 [facility] Serum or plasma calcium luis urement (mass/volume)Ordered By: Dr. Terrell on 10-18-2022 Calcium [Mass/Vol] 9.2 mg/dL 8.5-10.1 [facility] Serum or plasma creatinine m easurement (mass/volume)Ordered By: Dr. Terrell on 10-18-2022 Creatinine [Mass/Vol] 0.70 mg/dL 0.55-1.02 [facility] Comment on above: The validity of the calculated GFR & GFRAA in patients over 70 years has not been determined. Clinical correlation is essential. Serum or plasma urea nitroge n measurement (mass/volume)Ordered By: Dr. Terrell on 10-18-2022 Urea nitrogen [Mass/Vol] 17 mg/dL 12-20 [facility] Thin prep Papanicolaou smear with manual screeningOrdered By: Dr. Terrell on 10-18-2022 Thin prep Papanicolaou smear with manual screening 5 - [facility] CBC W Auto Differential pane l (Bld)on 09-16-2022 Basophils (Bld) [#/Vol] 0.11 10*3/uL High <0.11 k/uL [facility] Basophils/100 WBC (Bld) 1.3 % [facility] Differential cell count method Nom (Bld) Auto [facility] Eosinophils (Bld) [#/Vol] 0.08 10*3/uL <0.46 k/uL [facility] Eosinophils/100 WBC (Bld) 0.9 % [facility] Erythrocyte distribution width (RBC) [Ratio] 14.3 % 11.5 - 15.0 % [facility] Hematocrit (Bld) [Volume fraction] 42.6 % 36.0 - 46.0 % [facility] Hemoglobin (Bld) [Mass/Vol] 13.3 g/dL 11.5 - 15.5 g/dL [facility] Immature granulocytes (Bld) [#/Vol] 0.03 10*3/uL <0.10 k/uL [facility] Immature granulocytes/100 WBC (Bld) 0.4 % [facility] Lymphocytes (Bld) [#/Vol] 1.42 10*3/uL 1.00 - 4.00 k/uL [facility] Lymphocytes/100 WBC (Bld) 16.8 % [facility] MCH (RBC) [Entitic mass] 26.3 pg 26.0 - 34.0 pg [facility] MCHC (RBC) [Mass/Vol] 31.2 g/dL 30.5 - 36.0 g/dL [facility] MCV (RBC) [Entitic vol] 84.4 fL 80.0 - 100.0 fL [facility] Monocytes (Bld) [#/Vol] 0.62 10*3/uL <0.87 k/uL [facility] Monocytes/100 WBC (Bld) 7.3 % [facility] Neutrophils (Bld) [#/Vol] 6.19 10*3/uL 1.45 - 7.50 k/uL [facility] Neutrophils/100 WBC (Bld) 73.3 % [facility] Nucleated RBC (Bld) [#/Vol] <0.01 k/uL [facility] Nucleated RBC/100 WBC (Bld) [Ratio] 0.0 /100 WBC [facility] Platelet mean volume (Bld) [Entitic vol] 11.2 fL 9.0 - 12.7 fL [facility] Platelets (Bld) [#/Vol] 289 10*3/uL 150 - 400 k/uL [facility] RBC (Bld) [#/Vol] 5.05 10*6/uL 3.90 - 5.2 0 m/uL [facility] WBC (Bld) [#/Vol] 8.45 10*3/uL 3.70 - 11. 00 k/uL [facility] Reagin and Treponema pallidu m IgG and IgM [Interp]on 09-16-2022 Syphilis Interpretation Cannot exclude recent Treponemal infection if specimen collected within 7-10 days after appearance of suspect lesions or 2-3 weeks after an exposure. Clinical correlation is required. [facility] T. pallidum IgG+IgM IA Ql (S) Non-Reactive Nonreactive [facility] VITAMIN D 25 HYDROXYon 09-16 25-hydroxyvitamin D3 [Mass/Vol] 50.3 ng/mL 31.0 - 80.0 ng/mL [facility] CNPNon 07-14-2022 CNPN Telephone (AGCARDPOB ) VANDANA MITCHELL ([id number]) 1950 F NFR Date Time Provider Department 07/14/22 CLARY NOLASCO During your visit today, we recorded the following information about you: Shanita Alston LPN 07/14/2022 10:16 AM Signed Clearance form received from [facility]. Form placed in Dr. Nolasco's door box, [...] on exertion [R06.09] 05/31/2019 SVT (supraventricular tachycardia) (HCC) [I47.1]01/14/2020 Screening for colon cancer [Z12.11] 09/24/2020 09/24/2020 Murmur [R01.1] 10/05/2020 09/16/2021 HOCM (hypertrophic obstructive cardiomyopathy) *10/05/2020 Age-related osteoporosis without current pathol*09/10/2021 Closed fracture of distal radius and ulna [S52.*03/18/2022 Cyst of kidney, acquired [N28.1] 02/18/2022 Greater trochanteric bursitis [M70.60] 03/18/2022 Normal pelvic exam [Z01.419] 01/24/2017 Mild intermittent asthma without complication [*03/22/2022 Encounter Status:Closed by SHANITA ALSTON on 02/14/23 Normal [facility] Basophil percentageon 2021 Basophil percentage < 0.9 mg/dL 0.55-1.02 [facility] Work Phone: No Panel Informationon 02-14 Bedside Estimated GFR (eGFR) > 60.0000 mL/min >60 [facility] Work Phone: US KIDNEY/BLADDERon 01-28-20 Radiology Result ACTIONABLE Abnormal [facility] CBC W Auto Differential pane l (Bld)on 10-12-2021 Abs Immature Gran 0.04 k/uL <0.10 k/uL [facility] Basophils (Bld) [#/Vol] 0.11 10*3/uL High <0.11 k/uL [facility] Basophils/100 WBC (Bld) 1.0 % [facility] Differential cell count method Nom (Bld) Auto [facility] Eosinophils (Bld) [#/Vol] 0.09 10*3/uL <0.46 k/uL [facility] Eosinophils/100 WBC (Bld) 0.9 % [facility] Erythrocyte distribution width (RBC) [Ratio] 15.4 % High 11.5 - 15.0 % [facility] Hematocrit (Bld) [Volume fraction] 43.6 % 36.0 - 46.0 % [facility] Hemoglobin (Bld) [Mass/Vol] 13.5 g/dL 11.5 - 15.5 g/dL [facility] Immature Gran % 0.4 % [facility] Lymphocytes (Bld) [#/Vol] 1.55 10*3/uL 1.00 - 4.00 k/uL [facility] Lymphocytes/100 WBC (Bld) 14.7 % [facility] MCH (RBC) [Entitic mass] 26.3 pg 26.0 - 34.0 pg [facility] MCHC (RBC) [Mass/Vol] 31.0 g/dL 30.5 - 36.0 g/dL [facility] MCV (RBC) [Entitic vol] 84.8 fL 80.0 - 100.0 fL [facility] Monocytes (Bld) [#/Vol] 1.11 10*3/uL High <0.87 k/uL [facility] Monocytes/100 WBC (Bld) 10.5 % [facility] Neutrophils (Bld) [#/Vol] 7.66 10*3/uL High 1.45 - 7.50 k/uL [facility] Neutrophils/100 WBC (Bld) 72.5 % [facility] Nucleated RBC (Bld) [#/Vol] 10*3/uL <0.01 k/uL [facility] Nucleated RBC/100 WBC (Bld) [Ratio] 0.0 /100 WBC [facility] Platelet mean volume (Bld) [Entitic vol] 11.0 fL 9.0 - 12.7 fL [facility] Platelets (Bld) [#/Vol] 301 10*3/uL 150 - 400 k/uL [facility] RBC (Bld) [#/Vol] 5.14 10*6/uL 3.90 - 5.2 0 m/uL [facility] WBC (Bld) [#/Vol] 10.56 10*3/uL 3.70 - 11 .00 k/uL [facility] XR HIP GENERAL 3V PELV/AP/LA T RIGHTon 09-16-2021 [facility] XR Pelvis and Hip - right AP and Lateral frogon 09-16-2021 IMPRESSION: Mild right hip osteoarthritis. No acute osseous findings. Extracorporeal Technician: [employer] Transcribe Date/Time: Sep 16 2021 2:10P Dictated [...] lumbar spine. [id number] E_DIVISION OF RADIOLOGY Provider, Concha [facility] - 09/16/2021 * * *Final Report* * [...] right hip osteoarthritis. No acute osseous findings. Extracorporeal Technician: [facility] Transcribe Date/Time: Sep 16 2021 2:10P Dictated by : PANFILO PITTS MD This examination was interpreted and the report reviewed and electronically signed by: PANFILO PITTS MD on Sep 16 2021 2:16PM EST [facility] Radiology Study observation (narrative) [facility] XR Pelvis and Hip - right AP and Lateral frogOrdered By: Concha Provider on 09-16-[address] [facility] [address] SHOULDER WO IVCON LTon [facility] XR Shoulder - left 3 Viewson 09-07-2021 IMPRESSION: 1. No acute bony process. 2. Radiographic changes which can be seen in association with rotator cuff tendonopathy/tear. Extracorporeal Technician: [facility] Transcribe Date/Time: Sep 07 2021 4:53P Dictated by : HERNANDEZ FULLER MD This examination was interpreted and the report reviewed and electronically signed by: HERNANDEZ FULLER MD on Sep 07 2021 4:57PM [facility] DIVISION OF RADIOLOGY * * *Final Report* [...] shoulder examinations available for comparison within the [facility] Imaging Archives. Comparison is made to [...] lung is clear. DIVISION OF RADIOLOGY Provider, [facility] - 09/07/2021 * * *Final Report* * [...] shoulder examinations available for comparison within the [facility] Imaging Archives. Comparison is made to [...] seen in association with rotator cuff tendonopathy/tear. Extracorporeal Technician: [employer] Transcribe Date/Time: Sep 07 2021 4:53P Dictated by : HERNANDEZ FULLER MD This examination was interpreted and the report reviewed and electronically signed by: HERNANDEZ FULLER MD on Sep 07 2021 4:57PM EST [facility] Radiology Study observation (narrative) [facility] XR Shoulder - left 3 ViewsOr dered By: Ccf Provider on 09-07-2021 [facility] XR Chest PA and Lateralon IMPRESSION: No acute radiographic abnormality. Extracorporeal Technician: [employer] Transcribe Date/Time: Nov 24 2020 3:02P Dictated by : MADAY HUYNH MD This examination was interpreted and the report reviewed and electronically signed by: MADAY HUYNH MD on Nov 24 2020 3:05PM EST DIVISION OF RADIOLOGY * * *Final Report* [...] the ligament noted. DIVISION OF RADIOLOGY Provider, [facility] Sarah [facility] - 11/24/2020 * * *Final Report* * [...] noted. IMPRESSION IMPRESSION: No acute radiographic abnormality. Extracorporeal Technician: [employer] Transcribe Date/Time: Nov 24 2020 3:02P Dictated by : MADAY HUYNH MD This examination was interpreted and the report reviewed and electronically signed by: MADAY HUYNH MD on Nov 24 2020 3:05PM [facility] Radiology Study observation (narrative) [facility] XR Chest PA and LateralOrder ed By: Ccf Provider on 11-24-2020 [facility] Office Visit: est annualon 0 01-24-2017 Documentation of current medications (procedure) Done Invalid Interpretation Code [facility] Fall risk assessment No Invalid Interpretation Code [facility] Hemoglobin presence in stool not done Invalid Interpretation Code [facility] Tobacco smoking status NHIS Never Invalid Interpretation Code [facility] Tobacco use [facility] Never smoker Invalid Interpretation Code [facility] Clinical Lists Update: Prelo fruit pitter 01-20-2017 Tobacco use [facility] Never smoker Invalid Interpretation Code [employer], [facility] Work Phone: Office Visit: est annualon 0 11-03-2016 Breast Mammogram screening Normal Bilateral Invalid Interpretation Code [facility] Office Visit: est annualon 0 11-04-2015 General categories [Interpretation] of Cervical or vaginal smear or scraping by Cyto stain Normal Invalid Interpretation Code [facility] Vital Signs Date Time Vital Sign Value Performing Clinician Facility 10-04-2024 11:36-0400 Body height 157.5 cm Markus aRscon MD Work Phone: [facility] 10-04-2024 11:36-0400 Body mass index (BMI) [Ratio] 19.94 kg/m2 Markus Rascon MD Work Phone: [facility] 10-04-2024 11:36-0400 Body weight 49.44 kg Markus Rascon MD Work Phone: [facility] 10-04-2024 11:36-0400 Diastolic blood pressure 68 mm[Hg] Markus Rascon MD Work Phone: [facility] 10-04-2024 11:36-0400 Heart rate 80 /min Markus Rascon MD Work Phone: [facility] 10-04-2024 11:36-0400 SaO2% (BldA) [Mass fraction] 95 % Mrakus Rascon MD Work Phone: [facility] 10-04-2024 11:36-0400 Systolic blood pressure 148 mm[Hg] Markus Rascon MD Work Phone: [facility] 09-25-2024 10:21-0400 Body mass index (BMI) [Ratio] 20.2 kg/m2 Shanita Manuel PA-C Work Phone: [facility] 09-25-2024 10:21-0400 Body weight 50.1 kg Shanita Manuel PA-C Work Phone: [facility] 09-25-2024 10:21-0400 Diastolic blood pressure 70 mm[Hg] Shanita Manuel PA-C Work Phone: [facility] 09-25-2024 10:21-0400 Heart rate 83 /min Shanita Manuel PA-C Work Phone: [facility] 09-25-2024 10:21-0400 Respiratory rate 17 /min Shanita Manuel PA-C Work Phone: [facility] 09-25-2024 10:21-0400 SaO2% (BldA) [Mass fraction] 97 % Shanita Manuel PA-C Work Phone: [facility] 09-25-2024 10:21-0400 Systolic blood pressure 136 mm[Hg] Shanita Jackson PA-C Work Phone: [facility] 07-04-2024 09:41-0500 Body mass index (BMI) [Ratio] 20.39 kg/m2 Danny Oneill DO Work Phone: [facility] 07-04-2024 09:41-0500 Body temperature 98.29 [degF] Danny Mcleodi DO Work Phone: [facility] 07-04-2024 09:41-0500 Body weight 50.58 kg Danny Mcleodi DO Work Phone: [facility] 07-04-2024 09:41-0500 Diastolic blood pressure 82 mm[Hg] Danny Oneill DO Work Phone: [facility] Comment on above: pt. seeing PCP concerning BP 07-04-2024 09:41-0500 Heart rate 71 /min Danny Oneill DO Work Phone: [facility] 07-04-2024 09:41-0500 SaO2% (BldA) [Mass fraction] 96 % Danny Oneill DO Work Phone: [facility] 07-04-2024 09:41-0500 Systolic blood pressure 159 mm[Hg] Danny Oneill DO Work Phone: [facility] Comment on above: pt. seeing PCP concerning BP 06-28-2024 11:36-0500 Body mass index (BMI) [Ratio] 19.94 kg/m2 Markus Rascon MD Work Phone: [facility] 06-28-2024 11:36-0500 Body weight 49.44 kg Markus Rascon MD Work Phone: [facility] 06-28-2024 11:36-0500 Diastolic blood pressure 72 mm[Hg] Markus Rascon MD Work Phone: [facility] 06-28-2024 11:36-0500 Heart rate 84 /min Markus Rascon MD Work Phone: [facility] 06-28-2024 11:36-0500 Respiratory rate 14 /min Markus Rascon MD Work Phone: [facility] 06-28-2024 11:36-0500 SaO2% (BldA) [Mass fraction] 98 % Markus Rascon MD Work Phone: [facility] 06-28-2024 11:36-0500 Systolic blood pressure 136 mm[Hg] Markus Rascon MD Work Phone: [facility] 06-24-2024 10:16-0500 Body mass index (BMI) [Ratio] 20.08 kg/m2 Clary Nolasco MD Work Phone: [facility] 06-24-2024 10:16-0500 Body weight 49.8 kg Clary Nolasco MD Work Phone: [facility] 06-24-2024 10:16-0500 Diastolic blood pressure 77 mm[Hg] Clary Nolasco MD Work Phone: [facility] 06-24-2024 10:16-0500 Heart rate 87 /min Clary Nolasco MD Work Phone: [facility] 06-24-2024 10:16-0500 SaO2% (BldA) [Mass fraction] 96 % Clary Nolasco MD Work Phone: [facility] 06-24-2024 10:16-0500 Systolic blood pressure 170 mm[Hg] Clary Nolasco MD Work Phone: [facility] 05-31-2024 10:34-0500 Diastolic blood pressure 72 mm[Hg] Debbie Constantino SOFTWARE ENGINEERING SPECIALIST.LEATHER STITCHER Work Phone: [facility] 05-31-2024 10:34-0500 Heart rate 85 /min Debbie Haagen SOFTWARE ENGINEERING SPECIALIST.LEATHER STITCHER Work Phone: [facility] 05-31-2024 10:34-0500 Respiratory rate 16 /min Debbie Haagen SOFTWARE ENGINEERING SPECIALIST.LEATHER STITCHER Work Phone: [facility] 05-31-2024 10:34-0500 SaO2% (BldA) [Mass fraction] 94 % Debbie Haagen SOFTWARE ENGINEERING SPECIALIST.LEATHER STITCHER Work Phone: [facility] 05-31-2024 10:34-0500 Systolic blood pressure 146 mm[Hg] Debbie Haagen SOFTWARE ENGINEERING SPECIALIST.LEATHER STITCHER Work Phone: [facility] 05-07-2024 12:52-0500 Heart rate 85 /min Parvin Click SOFTWARE ENGINEERING SPECIALIST.LEATHER STITCHER Work Phone: [facility] 05-07-2024 12:52-0500 Respiratory rate 14 /min Parvin Click SOFTWARE ENGINEERING SPECIALIST.LEATHER STITCHER Work Phone: [facility] 05-07-2024 12:52-0500 SaO2% (BldA) [Mass fraction] 100 % Parvin Click SOFTWARE ENGINEERING SPECIALIST.LEATHER STITCHER Work Phone: [facility] 05-01-2024 10:02-0500 Diastolic blood pressure 76 mm[Hg] Debbie Haagen SOFTWARE ENGINEERING SPECIALIST.LEATHER STITCHER Work Phone: [facility] Comment on above: EMERALD BP 05-01-2024 10:02-0500 Systolic blood pressure 160 mm[Hg] Debbie Haagen SOFTWARE ENGINEERING SPECIALIST.LEATHER STITCHER Work Phone: [facility] Comment on above: EM[facility]AL[facility] BP 05-01-2024 09:50-0500 Heart rate 89 /min Debbie Haagen SOFTWARE ENGINEERING SPECIALIST.LEATHER STITCHER Work Phone: [facility] 05-01-2024 09:50-0500 Respiratory rate 16 /min Debbie Haagen SOFTWARE ENGINEERING SPECIALIST.LEATHER STITCHER Work Phone: [facility] 05-01-2024 09:50-0500 SaO2% (BldA) [Mass fraction] 95 % Debbie Haagen SOFTWARE ENGINEERING SPECIALIST.LEATHER STITCHER Work Phone: [facility] 04-16-2024 10:20-0500 Body height 157.5 cm Bj Allen APRN - LEATHER STITCHER Work Phone: [facility] 04-16-2024 10:20-0500 Body mass index (BMI) [Ratio] 19.46 kg/m2 Bj Allen APRN - LEATHER STITCHER Work Phone: [facility] 04-16-2024 10:20-0500 Body weight 48.26 kg Bj Rorar SOFTWARE ENGINEERING SPECIALIST - LEATHER STITCHER Work Phone: [facility] 04-16-2024 10:20-0500 Diastolic blood pressure 77 mm[Hg] Bj Allen SOFTWARE ENGINEERING SPECIALIST - LEATHER STITCHER Work Phone: [facility] 04-16-2024 10:20-0500 Heart rate 96 /min Bj Allen SOFTWARE ENGINEERING SPECIALIST - LEATHER STITCHER Work Phone: [facility] 04-16-2024 10:20-0500 Systolic blood pressure 169 mm[Hg] Bj Allen SOFTWARE ENGINEERING SPECIALIST - LEATHER STITCHER Work Phone: [facility] 04-03-2024 14:08-0400 Body mass index (BMI) [Ratio] 19.92 kg/m2 Markus Rascon MD Work Phone: [facility] 04-03-2024 14:08-0400 Body weight 49.4 kg Markus Rascon MD Work Phone: [facility] 04-03-2024 14:08-0400 Diastolic blood pressure 82 mm[Hg] Markus Rascon MD Work Phone: [facility] 04-03-2024 14:08-0400 Heart rate 87 /min Markus Rascon MD Work Phone: [facility] 04-03-2024 14:08-0400 SaO2% (BldA) [Mass fraction] 97 % Markus Rascon MD Work Phone: [facility] 04-03-2024 14:08-0400 Systolic blood pressure 162 mm[Hg] Markus Rascon MD Work Phone: [facility] 04-02-2024 10:22-0400 Body height 157.5 cm Ariane Cipriano SOFTWARE ENGINEERING SPECIALIST.LEATHER STITCHER Work Phone: [facility] 04-02-2024 10:22-0400 Body mass index (BMI) [Ratio] 19.79 kg/m2 Ariane Cipriano SOFTWARE ENGINEERING SPECIALIST.LEATHER STITCHER Work Phone: [facility] 04-02-2024 10:22-0400 Body temperature 97.5 [degF] Ariane Cipriano SOFTWARE ENGINEERING SPECIALIST.LEATHER STITCHER Work Phone: [facility] 04-02-2024 10:22-0400 Body weight 49.08 kg Ariane Cipriano SOFTWARE ENGINEERING SPECIALIST.LEATHER STITCHER Work Phone: [facility] 04-02-2024 10:22-0400 Diastolic blood pressure 85 mm[Hg] Ariane Cipriano SOFTWARE ENGINEERING SPECIALIST.LEATHER STITCHER Work Phone: [facility] 04-02-2024 10:22-0400 Heart rate 106 /min Ariane Cipriano SOFTWARE ENGINEERING SPECIALIST.LEATHER STITCHER Work Phone: [facility] 04-02-2024 10:22-0400 SaO2% (BldA) [Mass fraction] 96 % Ariane Cipriano SOFTWARE ENGINEERING SPECIALIST.LEATHER STITCHER Work Phone: [facility] 04-02-2024 10:22-0400 Systolic blood pressure 154 mm[Hg] Ariane Cipriano SOFTWARE ENGINEERING SPECIALIST.LEATHER STITCHER Work Phone: [facility] 03-27-2024 11:36-0400 Body height 157.6 cm Pulm Wstr Work Phone: [facility] 03-27-2024 11:36-0400 Body mass index (BMI) [Ratio] 19.91 kg/m2 Pulm Wstr Work Phone: [facility] 03-27-2024 11:36-0400 Body weight 49.44 kg Pulm Wstr Work Phone: [facility] 03-27-2024 11:36-0400 Heart rate 86 /min Pulm Wstr Work Phone: [facility] 03-27-2024 11:36-0400 Respiratory rate 14 /min Pulm Wstr Work Phone: [facility] 03-27-2024 11:36-0400 SaO2% (BldA) [Mass fraction] 98 % Pulm Wstr Work Phone: [facility] 03-21-2024 12:37-0400 Diastolic blood pressure 80 mm[Hg] Daryl Hamlin MD Work Phone: [facility] 03-21-2024 12:37-0400 Heart rate 81 /min Daryl Hamlin MD Work Phone: [facility] 03-21-2024 12:37-0400 Respiratory rate 16 /min Daryl Hamlin MD Work Phone: [facility] 03-21-2024 12:37-0400 SaO2% (BldA) [Mass fraction] 93 % Daryl Hamlin MD Work Phone: [facility] 03-21-2024 12:37-0400 Systolic blood pressure 161 mm[Hg] Daryl Hamlin MD Work Phone: [facility] 03-21-2024 10:56-0400 Body temperature 97.59 [degF] Daryl Hamlin MD Work Phone: [facility] 03-12-2024 10:26-0400 Body mass index (BMI) [Ratio] 19.74 kg/m2 Debbie Constantino SOFTWARE ENGINEERING SPECIALIST.LEATHER STITCHER Work Phone: [facility] 03-12-2024 10:26-0400 Body weight 49.44 kg Debbie Constantino SOFTWARE ENGINEERING SPECIALIST.LEATHER STITCHER Work Phone: [facility] 03-12-2024 10:26-0400 Diastolic blood pressure 86 mm[Hg] Debbie Constantino SOFTWARE ENGINEERING SPECIALIST.LEATHER STITCHER Work Phone: [facility] 03-12-2024 10:26-0400 Heart rate 86 /min Debbie Haagen SOFTWARE ENGINEERING SPECIALIST.LEATHER STITCHER Work Phone: [facility] 03-12-2024 10:26-0400 Respiratory rate 16 /min Debbie Haagen SOFTWARE ENGINEERING SPECIALIST.LEATHER STITCHER Work Phone: [facility] 03-12-2024 10:26-0400 SaO2% (BldA) [Mass fraction] 95 % Debbie Constantino SOFTWARE ENGINEERING SPECIALIST.LEATHER STITCHER Work Phone: [facility] 03-12-2024 10:26-0400 Systolic blood pressure 148 mm[Hg] Debbie Hakortney SOFTWARE ENGINEERING SPECIALIST.LEATHER STITCHER Work Phone: [facility] 03-05-2024 10:54-0400 Body height 158.2 cm Daryl Hamlin MD Work Phone: [facility] 03-05-2024 10:54-0400 Body mass index (BMI) [Ratio] 19.93 kg/m2 Daryl Hamlin MD Work Phone: [facility] 03-05-2024 10:54-0400 Body weight 49.9 kg Daryl Hamlin MD Work Phone: [facility] 03-05-2024 10:54-0400 Diastolic blood pressure 82 mm[Hg] Daryl Hamlin MD Work Phone: [facility] 03-05-2024 10:54-0400 Heart rate 91 /min Daryl Hamlin MD Work Phone: [facility] 03-05-2024 10:54-0400 SaO2% (BldA) [Mass fraction] 98 % Daryl Hamlin MD Work Phone: [facility] 03-05-2024 10:54-0400 Systolic blood pressure 189 mm[Hg] Daryl Hamlin MD Work Phone: [facility] 02-12-2024 18:21-0400 Body mass index (BMI) [Ratio] 19.65 kg/m2 Markus Rascon MD Work Phone: [facility] 02-12-2024 18:21-0400 Body weight 49.2 kg Markus Rascon MD Work Phone: [facility] 02-12-2024 18:21-0400 Diastolic blood pressure 84 mm[Hg] Markus Rascon MD Work Phone: [facility] 02-12-2024 18:21-0400 Heart rate 93 /min Markus Rascon MD Work Phone: [facility] 02-12-2024 18:21-0400 SaO2% (BldA) [Mass fraction] 94 % Markus Rascon MD Work Phone: [facility] 02-12-2024 18:21-0400 Systolic blood pressure 161 mm[Hg] Markus Rascon MD Work Phone: [facility] 02-06-2024 14:25-0400 Diastolic blood pressure 77 mm[Hg] Marie Alston MD Work Phone: [facility] 02-06-2024 14:25-0400 Systolic blood pressure 172 mm[Hg] Marie Alston MD Work Phone: [facility] 02-06-2024 13:55-0400 Heart rate 78 /min Marie Alston MD Work Phone: [facility] 01-03-2024 10:38-0400 Body height 157.5 cm Leandro Chery MD Work Phone: [facility] 01-03-2024 10:38-0400 Body mass index (BMI) [Ratio] 19.94 kg/m2 Leandro Chery MD Work Phone: [facility] 01-03-2024 10:38-0400 Body weight 49.44 kg Leandro Chery MD Work Phone: [facility] 01-03-2024 10:38-0400 Diastolic blood pressure 83 mm[Hg] Leandro Chery MD Work Phone: [facility] 01-03-2024 10:38-0400 Heart rate 94 /min Leandro Chery MD Work Phone: [facility] 01-03-2024 10:38-0400 Systolic blood pressure 162 mm[Hg] Leandro Chery MD Work Phone: [facility] 12-19-2023 19:00-0400 Heart rate 85 /min Leandro Chery MD Work Phone: [facility] 12-19-2023 19:00-0400 Respiratory rate 20 /min Leandro Chery MD Work Phone: [facility] 12-19-2023 19:00-0400 SaO2% (BldA) [Mass fraction] 91 % Leandro Chery MD Work Phone: [facility] 12-19-2023 18:45-0400 Diastolic blood pressure 83 mm[Hg] Leandro Chery MD Work Phone: [facility] 12-19-2023 18:45-0400 Systolic blood pressure 158 mm[Hg] Leandro Chery MD Work Phone: [facility] 12-19-2023 16:33-0400 Body temperature 97.2 [degF] Leandro Chery MD Work Phone: [facility] 12-19-2023 11:04-0400 Body height 158.8 cm Leandro Chery MD Work Phone: [facility] 12-19-2023 11:04-0400 Body mass index (BMI) [Ratio] 20.16 kg/m2 Leandro Chery MD Work Phone: [facility] 12-19-2023 11:04-0400 Body weight 50.8 kg Leandro Chery MD Work Phone: [facility] 12-05-2023 10:19-0400 Diastolic blood pressure 80 mm[Hg] Marie Alston MD Work Phone: [facility] 12-05-2023 10:19-0400 Heart rate 89 /min Marie Alston MD Work Phone: [facility] 12-05-2023 10:19-0400 Systolic blood pressure 182 mm[Hg] Marie Alston MD Work Phone: [facility] 11-30-2023 09:57-0400 Diastolic blood pressure 80 mm[Hg] [facility] [employer] [facility] 11-30-2023 09:57-0400 Heart rate 97 /min [facility] [employer] [facility] 11-30-2023 09:57-0400 Systolic blood pressure 153 mm[Hg] [facility] [employer] [facility] 11-28-2023 11:31-0400 Body mass index (BMI) [Ratio] 20.16 kg/m2 Marie Alston MD Work Phone: [facility] 11-28-2023 11:31-0400 Body weight 50.8 kg Marie Alston MD Work Phone: [facility] 11-28-2023 11:31-0400 Diastolic blood pressure 78 mm[Hg] Marie Alston MD Work Phone: [facility] 11-28-2023 11:31-0400 Heart rate 92 /min Marie Alston MD Work Phone: [facility] 11-28-2023 11:31-0400 Systolic blood pressure 177 mm[Hg] Marie Alston MD Work Phone: [facility] 11-22-2023 13:11-0400 Body height 158.8 cm Leandro Chery MD Work Phone: [facility] 11-22-2023 13:11-0400 Body mass index (BMI) [Ratio] 19.98 kg/m2 Leandro Chery MD Work Phone: [facility] 11-22-2023 13:11-0400 Body weight 50.35 kg Leandro Chery MD Work Phone: [facility] 11-22-2023 13:11-0400 Diastolic blood pressure 86 mm[Hg] Leandro Chery MD Work Phone: [facility] 11-22-2023 13:11-0400 Heart rate 87 /min Leandro Chery MD Work Phone: [facility] 11-22-2023 13:11-0400 Systolic blood pressure 176 mm[Hg] Leandro Chery MD Work Phone: [facility] 11-20-2023 10:22-0400 Body mass index (BMI) [Ratio] 20.29 kg/m2 Shanita Manuel PA-C Work Phone: [facility] 11-20-2023 10:22-0400 Body weight 50.8 kg Shanita Manuel PA-C Work Phone: [facility] 11-20-2023 10:22-0400 Diastolic blood pressure 88 mm[Hg] Shanita Manuel PA-C Work Phone: [facility] 11-20-2023 10:22-0400 Heart rate 68 /min Shanita Manuel PA-C Work Phone: [facility] 11-20-2023 10:22-0400 Respiratory rate 15 /min Shanita Jackson PA-C Work Phone: [facility] 11-20-2023 10:22-0400 SaO2% (BldA) [Mass fraction] 94 % Shanita Sarabiaone PA-C Work Phone: [facility] 11-20-2023 10:22-0400 Systolic blood pressure 140 mm[Hg] Shanita Sarabiaone PA-C Work Phone: [facility] 09-04-2023 11:05-0400 Body temperature 98.2 [degF] Rylee Suppan SOFTWARE ENGINEERING SPECIALIST.AUTOMOTIVE CENTER MANAGER Work Phone: [facility] 09-04-2023 11:05-0400 Body weight 51.71 kg Rylee Suppan SOFTWARE ENGINEERING SPECIALIST.AUTOMOTIVE CENTER MANAGER Work Phone: [facility] 09-04-2023 11:05-0400 Diastolic blood pressure 90 mm[Hg] Rylee Suppan SOFTWARE ENGINEERING SPECIALIST.AUTOMOTIVE CENTER MANAGER Work Phone: [facility] 09-04-2023 11:05-0400 Heart rate 82 /min Rylee Suppan SOFTWARE ENGINEERING SPECIALIST.AUTOMOTIVE CENTER MANAGER Work Phone: [facility] 09-04-2023 11:05-0400 SaO2% (BldA) [Mass fraction] 95 % Rylee Suppan SOFTWARE ENGINEERING SPECIALIST.AUTOMOTIVE CENTER MANAGER Work Phone: [facility] 09-04-2023 11:05-0400 Systolic blood pressure 158 mm[Hg] Rylee Suppan SOFTWARE ENGINEERING SPECIALIST.AUTOMOTIVE CENTER MANAGER Work Phone: [facility] 05-15-2023 09:28-0500 Body height 158.2 cm Danny Mcleodi DO Work Phone: [facility] 05-15-2023 09:28-0500 Body temperature 99.3 [degF] Danny Masci DO Work Phone: [facility] 05-15-2023 09:28-0500 Body weight 52.62 kg Danny Masci DO Work Phone: [facility] 05-15-2023 09:28-0500 Diastolic blood pressure 78 mm[Hg] Danny Masci DO Work Phone: [facility] 05-15-2023 09:28-0500 Heart rate 84 /min Danny Masci DO Work Phone: [facility] 05-15-2023 09:28-0500 SaO2% (BldA) [Mass fraction] 97 % Danny Masci DO Work Phone: [facility] 05-15-2023 09:28-0500 Systolic blood pressure 155 mm[Hg] Danny Masci DO Work Phone: [facility] 03-30-2023 10:00-0400 Body weight 52.44 kg Mariana Russell MD Work Phone: [facility] 03-30-2023 10:00-0400 Diastolic blood pressure 78 mm[Hg] Mariana Russell MD Work Phone: [facility] 03-30-2023 10:00-0400 Heart rate 84 /min Mariana Russell MD Work Phone: [facility] 03-30-2023 10:00-0400 SaO2% (BldA) [Mass fraction] 96 % Mariana Russell MD Work Phone: [facility] 03-30-2023 10:00-0400 Systolic blood pressure 154 mm[Hg] Mariana Russell MD Work Phone: [facility] 11-17-2022 13:19-0400 Body height 158.8 cm Markus Rascon MD Work Phone: [facility] 11-17-2022 13:19-0400 Body weight 54.16 kg Markus Rascon MD Work Phone: [facility] 11-17-2022 13:19-0400 Diastolic blood pressure 58 mm[Hg] Markus Rascon MD Work Phone: [facility] 11-17-2022 13:19-0400 Heart rate 85 /min Markus Rascon MD Work Phone: [facility] 11-17-2022 13:19-0400 SaO2% (BldA) [Mass fraction] 97 % Markus Rascon MD Work Phone: [facility] 11-17-2022 13:19-0400 Systolic blood pressure 136 mm[Hg] Markus Rascon MD Work Phone: [facility] 10-18-2022 12:42-0400 Body height 157.[address] Markus Rascon Work Phone: [facility] 10-18-2022 12:42-0400 Body mass index (BMI) [Ratio] 21.4 kg/m2 Dr. Makrus Rascon Work Phone: [facility] 10-18-2022 12:42-0400 Body temperature 97.6 [degF] Dr. Markus Rascon Work Phone: [facility] 10-18-2022 12:42-0400 Body weight 53.[address] Markus Rascon Work Phone: [facility] 10-18-2022 12:42-0400 Diastolic blood pressure 73 mm[Hg] Dr. Markus Rascon Work Phone: [facility] 10-18-2022 12:42-0400 Heart rate 98 /min Dr. Markus Rascon Work Phone: [facility] 10-18-2022 12:42-0400 Respiratory rate 16 /min Dr. Markus Rascon Work Phone: [facility] 10-18-2022 12:42-0400 SaO2% (BldA) [Mass fraction] 98 % Dr. Markus Rascon Work Phone: [facility] 10-18-2022 12:42-0400 Systolic blood pressure 114 mm[Hg] Dr. Markus Rascon Work Phone: [facility] 09-26-2022 09:51-0400 Body weight 54.43 kg Shanita Jackson PA-C Work Phone: [facility] 09-26-2022 09:51-0400 Diastolic blood pressure 82 mm[Hg] Shanita Manuel PA-C Work Phone: [facility] 09-26-2022 09:51-0400 Heart rate 88 /min Shanita Sarabiaone PA-C Work Phone: [facility] 09-26-2022 09:51-0400 Respiratory rate 16 /min Shanita Sarabiaone PA-C Work Phone: [facility] 09-26-2022 09:51-0400 SaO2% (BldA) [Mass fraction] 95 % Shanita Sarabiaone PA-C Work Phone: [facility] 09-26-2022 09:51-0400 Systolic blood pressure 144 mm[Hg] Shanita Sarabiaone PA-C Work Phone: [facility] 09-16-2022 10:54-0400 Body weight 54.88 kg Markus Rascon MD Work Phone: [facility] 09-16-2022 10:54-0400 Diastolic blood pressure 72 mm[Hg] Markus Rascon MD Work Phone: [facility] 09-16-2022 10:54-0400 Heart rate 102 /min Markus Rascon MD Work Phone: [facility] 09-16-2022 10:54-0400 SaO2% (BldA) [Mass fraction] 96 % Markus Rascon MD Work Phone: [facility] 09-16-2022 10:54-0400 Systolic blood pressure 142 mm[Hg] Markus Rascon MD Work Phone: [facility] 09-09-2022 13:07-0400 Body height 157.[address] Markus Rascon Work Phone: [facility] 09-09-2022 13:07-0400 Body mass index (BMI) [Ratio] 21.5 kg/m2 Dr. Markus Rascon Work Phone: [facility] 09-09-2022 13:07-0400 Body weight 53.[address] Markus Rascon Work Phone: 2(930)722-319537 [place] [address] 09-09-2022 13:07-0400 Diastolic blood pressure 68 mm[Hg] Dr. Markus Rascon Work Phone: 2(628)489-614525 [place] [address] 09-09-2022 13:07-0400 Heart rate 82 /min Dr. Markus Rascon Work Phone: 5(803)437-535525 [place] [address] 09-09-2022 13:07-0400 Respiratory rate 16 /min Dr. Markus Rascon Work Phone: 5(373)556-259725 [place] [address] 09-09-2022 13:07-0400 SaO2% (BldA) [Mass fraction] 95 % Dr. Markus Rascon Work Phone: 1(077)629-510525 [place] [address] 09-09-2022 13:07-0400 Systolic blood pressure 153 mm[Hg] Dr. Markus Rascon Work Phone: 9(982)267-600025 [place] [address] 07-26-2022 13:32-0500 Body mass index (BMI) [Ratio] 22.2 kg/m2 Dr. Markus Rascon Work Phone: 8(416)377-567225 [place] [address] 07-26-2022 13:32-0500 Body temperature 97.1 [degF] Dr. Markus Rascon Work Phone: 4(410)151-756225 [place] [address] 07-26-2022 13:32-0500 Body weight 55.[address] Markus Rascon Work Phone: 5(938)021-983425 [place] [address] 07-26-2022 13:32-0500 Diastolic blood pressure 92 mm[Hg] Dr. Markus Rascon Work Phone: 4(874)158-827625 [place] [address] 07-26-2022 13:32-0500 Heart rate 88 /min Dr. Markus Rascon Work Phone: 6(884)204-893225 [place] [address] 07-26-2022 13:32-0500 Respiratory rate 18 /min Dr. Markus Rascon Work Phone: 6(253)797-140725 [place] [address] 07-26-2022 13:32-0500 SaO2% (BldA) [Mass fraction] 92 % Dr. Markus Rascon Work Phone: 3(734)356-334625 [place] [address] 07-26-2022 13:32-0500 Systolic blood pressure 186 mm[Hg] Dr. Markus Rascon Work Phone: [facility] 05-16-2022 14:02-0500 Body weight 55.79 kg Clary Nolasco MD Work Phone: [facility] 05-16-2022 14:02-0500 Diastolic blood pressure 70 mm[Hg] Clary Nolasco MD Work Phone: [facility] 05-16-2022 14:02-0500 Heart rate 83 /min Clary Nolasco MD Work Phone: [facility] 05-16-2022 14:02-0500 Systolic blood pressure 140 mm[Hg] Clary Nolasco MD Work Phone: [facility] 05-12-2022 09:18-0500 Body weight 56.02 kg Danny Masci DO Work Phone: [facility] 05-12-2022 09:18-0500 Diastolic blood pressure 77 mm[Hg] Danny Masci DO Work Phone: [facility] 05-12-2022 09:18-0500 Systolic blood pressure 144 mm[Hg] Danny Masci DO Work Phone: [facility] 05-12-2022 09:16-0500 Body temperature 98.29 [degF] Danny Masci DO Work Phone: [facility] 05-12-2022 09:16-0500 Heart rate 89 /min Danny Masci DO Work Phone: [facility] 03-22-2022 10:15-0400 Body weight 55.34 kg Mariana Russell MD Work Phone: [facility] 03-22-2022 10:15-0400 Diastolic blood pressure 82 mm[Hg] Mariana Russell MD Work Phone: [facility] 03-22-2022 10:15-0400 Heart rate 85 /min Mariana Russell MD Work Phone: [facility] 03-22-2022 10:15-0400 Respiratory rate 14 /min Mariana Russell MD Work Phone: [facility] 03-22-2022 10:15-0400 SaO2% (BldA) [Mass fraction] 96 % Mariana Russell MD Work Phone: [facility] 03-22-2022 10:15-0400 Systolic blood pressure 138 mm[Hg] Mariana Russell MD Work Phone: [facility] 03-18-2022 11:32-0400 Diastolic blood pressure 82 mm[Hg] Markus Rascon MD Work Phone: [facility] 03-18-2022 11:32-0400 Systolic blood pressure 132 mm[Hg] Markus Rascon MD Work Phone: [facility] 03-18-2022 10:57-0400 Body height 158.8 cm Markus Rascon MD Work Phone: [facility] 03-18-2022 10:57-0400 Body weight 55.34 kg Markus Rascon MD Work Phone: [facility] 03-18-2022 10:57-0400 Heart rate 94 /min Markus Rascon MD Work Phone: [facility] 03-18-2022 10:57-0400 SaO2% (BldA) [Mass fraction] 96 % Markus Rascon MD Work Phone: [facility] 02-17-2022 11:43-0400 Diastolic blood pressure 73 mm[Hg] Mi Nurse Work Phone: [facility] 02-17-2022 11:43-0400 Heart rate 86 /min Mi Nurse Work Phone: [facility] 02-17-2022 11:43-0400 Systolic blood pressure 147 mm[Hg] Mi Nurse Work Phone: [facility] 01-17-2022 11:36-0400 Body weight 54.88 kg Markus Rascon MD Work Phone: [facility] 01-17-2022 11:36-0400 Diastolic blood pressure 82 mm[Hg] Markus Rascon MD Work Phone: [facility] 01-17-2022 11:36-0400 Heart rate 96 /min Markus Rascon MD Work Phone: [facility] 01-17-2022 11:36-0400 Systolic blood pressure 148 mm[Hg] Markus Rascon MD Work Phone: [facility] 12-17-2021 13:41-0400 Body weight 56.7 kg Markus Rascon MD Work Phone: [facility] 12-17-2021 13:41-0400 Diastolic blood pressure 72 mm[Hg] Markus Rascon MD Work Phone: [facility] 12-17-2021 13:41-0400 Heart rate 96 /min Markus Rascon MD Work Phone: [facility] 12-17-2021 13:41-0400 Systolic blood pressure 150 mm[Hg] Markus Rascon MD Work Phone: [facility] 11-30-2021 13:20-0400 Body height 158.[address] Markus Rascon Work Phone: [facility] Work Phone: 11-30-2021 13:20-0400 Body mass index (BMI) [Ratio] 22.5 kg/m2 Dr. Markus Rascon Work Phone: [facility] Work Phone: 11-30-2021 13:20-0400 Body weight 56.[address] Markus Rascon Work Phone: [facility] Work Phone: 11-30-2021 13:20-0400 Diastolic blood pressure 88 mm[Hg] Dr. Markus Rascon Work Phone: [facility] Work Phone: 11-30-2021 13:20-0400 Systolic blood pressure 160 mm[Hg] Dr. Markus Rascon Work Phone: [facility] Work Phone: 10-18-2021 13:28-0400 Diastolic blood pressure 71 mm[Hg] Mi Nurse Work Phone: [facility] 10-18-2021 13:28-0400 Heart rate 88 /min Mi Nurse Work Phone: [facility] 10-18-2021 13:28-0400 Systolic blood pressure 149 mm[Hg] Mi Nurse Work Phone: [facility] 10-12-2021 18:13-0400 Body weight 59.06 kg Debbie Haagen SOFTWARE ENGINEERING SPECIALIST.LEATHER STITCHER Work Phone: [facility] 10-12-2021 11:52-0400 Diastolic blood pressure 82 mm[Hg] Debbie Haagen SOFTWARE ENGINEERING SPECIALIST.LEATHER STITCHER Work Phone: [facility] 10-12-2021 11:52-0400 Heart rate 98 /min Debbie Haagen SOFTWARE ENGINEERING SPECIALIST.LEATHER STITCHER Work Phone: [facility] 10-12-2021 11:52-0400 Respiratory rate 18 /min Debbie Haagen SOFTWARE ENGINEERING SPECIALIST.LEATHER STITCHER Work Phone: [facility] 10-12-2021 11:52-0400 SaO2% (BldA) [Mass fraction] 98 % Debbie Haagen SOFTWARE ENGINEERING SPECIALIST.LEATHER STITCHER Work Phone: [facility] 10-12-2021 11:52-0400 Systolic blood pressure 156 mm[Hg] Debbie Haagen SOFTWARE ENGINEERING SPECIALIST.LEATHER STITCHER Work Phone: [facility] 09-23-2021 10:20-0400 Body height 158.[address] Markus Rascon Work Phone: [facility] Work Phone: 09-23-2021 10:20-0400 Body mass index (BMI) [Ratio] 24.1 kg/m2 Dr. Markus Rascon Work Phone: [facility] Work Phone: 09-23-2021 10:20-0400 Body weight 60.[address] Markus Rascon Work Phone: [facility] Work Phone: 09-16-2021 09:43-0400 Body weight 59.97 kg Markus Rascon MD Work Phone: [facility] 09-16-2021 09:43-0400 Diastolic blood pressure 82 mm[Hg] Markus Rascon MD Work Phone: [facility] 09-16-2021 09:43-0400 Heart rate 80 /min Markus Rascon MD Work Phone: [facility] 09-16-2021 09:43-0400 Respiratory rate 16 /min Markus Rascon MD Work Phone: [facility] 09-16-2021 09:43-0400 Systolic blood pressure 144 mm[Hg] Markus Rascon MD Work Phone: [facility] 09-03-2021 13:15-0400 Body height 158.[address] Markus Rascon Work Phone: [facility] Work Phone: 09-03-2021 13:15-0400 Body mass index (BMI) [Ratio] 24.3 kg/m2 Dr. Markus Rascon Work Phone: [facility] Work Phone: 09-03-2021 13:15-0400 Body temperature 97.8 [degF] Dr. Markus Rascon Work Phone: [facility] Work Phone: 09-03-2021 13:15-0400 Body weight 61.[address] Markus Rascon Work Phone: [facility] Work Phone: 09-03-2021 13:15-0400 Diastolic blood pressure 77 mm[Hg] Dr. Markus Rascon Work Phone: [facility] Work Phone: 09-03-2021 13:15-0400 Heart rate 93 /min Dr. Markus Rascon Work Phone: [facility] Work Phone: 09-03-2021 13:15-0400 Respiratory rate 16 /min Dr. Markus Rascon Work Phone: [facility] Work Phone: 09-03-2021 13:15-0400 SaO2% (BldA) [Mass fraction] 97 % Dr. Markus Rascon Work Phone: [facility] Work Phone: 09-03-2021 13:15-0400 Systolic blood pressure 150 mm[Hg] Dr. Markus Rascon Work Phone: [facility] Work Phone: 07-16-2021 07:56-0500 Body mass index (BMI) [Ratio] 23.6 kg/m2 Dr. Markus Rascon Work Phone: [facility] Work Phone: 07-16-2021 07:56-0500 Body temperature 97.2 [degF] Dr. Markus Rascon Work Phone: [facility] Work Phone: 07-16-2021 07:56-0500 Body weight 60.[address] Markus Rascon Work Phone: [facility] Work Phone: 07-16-2021 07:56-0500 Diastolic blood pressure 88 mm[Hg] Dr. Markus Rascon Work Phone: [facility] Work Phone: 07-16-2021 07:56-0500 Heart rate 90 /min Dr. Markus Rascon Work Phone: [facility] Work Phone: 07-16-2021 07:56-0500 Respiratory rate 22 /min Dr. Markus Rascon Work Phone: [facility] Work Phone: 07-16-2021 07:56-0500 SaO2% (BldA) [Mass fraction] 94 % Dr. Markus Rascon Work Phone: [facility] Work Phone: 07-16-2021 07:56-0500 Systolic blood pressure 160 mm[Hg] Dr. Markus Rascon Work Phone: [facility] Work Phone: 01-24-2017 10:47-0400 BMI (Body Mass Index) 24.87 kg/m2 Tariq Chew MD [facility] 01-24-2017 10:47-0400 Body Temperature 96.4 [degF] Tariq Chew MD [facility] 01-24-2017 10:47-0400 BP Diastolic 93 mm[Hg] Tariq Chew MD [facility] 01-24-2017 10:47-0400 BP Systolic 167 mm[Hg] Tariq Chew MD [facility] 01-24-2017 10:47-0400 Height 158.75 cm Tariq Chew MD [facility] 01-24-2017 10:47-0400 Pulse (Heart Rate) 82 /min Tariq Chew MD [facility] 01-24-2017 10:47-0400 Respiratory Rate 16 /min Tariq Chew MD [facility] 01-24-2017 10:47-0400 Weight 62.69 kg Tariq Chew MD [facility] Encounters Encounter Date Encounter Type Care Provider Facility Start: 12-04-2024 ambulatory Traiq Booker lity:[facility] Start: 12-02-2024 End: 12-02-2024 Refill Markus Rascon MD Work Phone: [facility] [place] Comment on above: Refill Request Start: 11-11-2024 End: 11-11-2024 Telephone encounter Markus Rascon MD Work Phone: [facility] [place] Comment on above: Erroneous encounter- disregard Start: 11-06-2024 End: 11-06-2024 Telephone encounter Markus Rascon MD Work Phone: [facility] [place] Comment on above: Patient Update Start: 10-23-2024 End: 11-11-2024 Refill Shanita Jackson PA-C Work Phone: Pulmonary Medicine Comment on above: Med Change Request Start: 10-08-2024 End: 10-08-2024 Telephone encounter Markus Rascon MD Work Phone: [facility] [place] Comment on above: Results Start: 10-07-2024 End: 12-07-2024 Follow-up encounter Markus Rascon MD Work Phone: [facility] [place] Start: 10-07-2024 End: 10-07-2024 ambulatory MARKUS Parekh TARAH Facility:[facility] Start: 10-04-2024 End: 10-04-2024 Patient encounter procedure Markus Rascon MD Work Phone: [facility] [place] Comment on above: Essential hypertensi on (Primary Dx); Obstructive cardiomyopathy (HCC); SVT (supraventricular tachycardia) (HCC); HOCM (hypertrophic obstructive cardiomyopathy) (HCC); Restrictive 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; Asthma-COPD overlap syndrome (HCC); Nocturnal hypoxia; Weight loss; Anemia, unspecified type; Lightheadedness; Other constipation; Dark stools; Vitamin D deficiency Start: 10-04-2024 End: 10-04-2024 ambulatory [facility] Facility:[facility] Start: 09-25-2024 End: 09-25-2024 Patient encounter procedure Shanita Jackson PA-C Work Phone: Pulmonary Medicine Comment on above: Asthma-COPD overlap syndrome (HCC) (Primary Dx); Restrictive 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; Nocturnal hypoxia Start: 09-25-2024 End: 09-25-2024 ambulatory [facility] Facility:[facility] Start: 09-23-2024 End: 09-23-2024 ambulatory [facility] Facility:[facility] Start: 08-06-2024 End: 08-06-2024 Office outpatient visit 10 minutes Marie Alston MD Work Phone: [facility] Comment on above: Cystocele, midline ( Primary Dx); OAB (overactive bladder) Start: 08-06-2024 End: 08-06-2024 ambulatory MARIE ALSTON [facility] Start: 07-23-2024 End: 07-23-2024 ambulatory [facility] Start: 07-17-2024 End: 07-17-2024 Telephone encounter Markus Rascon MD Work Phone: [facility] [place] Comment on above: fax lab result to [facility] Start: 07-04-2024 End: 07-04-2024 ambulatory Danny Oneill DO Work Phone: Hematology/Oncology Comment on above: Monoclonal gammopath y (Primary Dx) Start: 07-04-2024 End: 07-04-2024 Patient encounter procedure Danny Oneill DO Work Phone: Hematology/Oncology Start: 06-28-2024 End: 06-28-2024 ambulatory [facility] Facility:[facility] Start: 06-28-2024 End: 06-28-2024 Patient encounter procedure Markus Rascon MD Work Phone: [facility] [place] Comment on above: Asthma-COPD overlap syndrome (HCC) (Primary Dx); Essential hypertension; Obstructive cardiomyopathy (HCC); SVT (supraventricular tachycardia) (HCC); HOCM (hypertrophic obstructive cardiomyopathy) (HCC); Anemia, unspecified type; Bilateral carotid artery stenosis Start: 06-27-2024 End: 06-27-2024 [facility] Facility:[facility] Start: 06-24-2024 End: 06-24-2024 [facility] Facility:[facility] Start: 06-24-2024 End: 06-24-2024 Patient encounter procedure Clary Nolasco MD Work Phone: Cardiology Comment on above: Essential hypertensi on (Primary Dx); SVT (supraventricular tachycardia) (HCC); HOCM (hypertrophic obstructive cardiomyopathy) (HCC) Start: 05-31-2024 End: 05-31-2024 Office outpatient visit 15 minutes Debbie Constantino APRN.CNP Work Phone: [facility] [place] Comment on above: Essential hypertensi on (Primary Dx); Elevated parathyroid hormone; Weight loss; Iron deficiency anemia, unspecified iron deficiency anemia type Start: 05-31-2024 End: 05-31-2024 [facility] Facility:[facility] Start: 05-30-2024 End: 05-30-2024 ambulatory [facility] Facility:[facility] Start: 05-24-2024 End: 05-24-2024 Refill Shanita Jackson PA-C Work Phone: Pulmonary Medicine Comment on above: Med Change Request Start: 05-07-2024 End: 05-07-2024 Office outpatient visit 15 minutes Parvin Kaur SOFTWARE ENGINEERING SPECIALIST.LEATHER STITCHER Work Phone: Pulmonary Medicine Comment on above: Asthma-COPD overlap syndrome (HCC) (Primary Dx); Restrictive 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; Nocturnal hypoxia Start: 05-07-2024 End: 05-07-2024 ambulatory [facility] Facility:[facility] Start: 05-01-2024 End: 05-01-2024 ambulatory [facility] Facility:[facility] Start: 05-01-2024 End: 05-01-2024 Subsequent hospital visit by physician Berenice [facility] Work Phone: Radiology Comment on above: Acute pain of right shoulder [M25.511] Start: 05-01-2024 End: 05-01-2024 Office outpatient visit 25 minutes Debbie Constantino APRN.LEATHER STITCHER Work Phone: [facility] Comment on above: Essential hypertensi on (Primary Dx); Acute pain of right shoulder; Iron deficiency anemia, unspecified iron deficiency anemia type Start: 05-01-2024 End: 05-01-2024 ambulatory [facility] Facility:[facility] Start: 04-29-2024 End: 04-29-2024 [facility] Facility:[facility] Start: 04-16-2024 End: 04-16-2024 Office outpatient visit 15 minutes Bj Allen SOFTWARE ENGINEERING SPECIALIST - LEATHER STITCHER Work Phone: [facility] Comment on above: Vaginal irritation ( Primary Dx) Start: 04-16-2024 End: 04-16-2024 ambulatory BJ ALL[facility] Start: 04-10-2024 End: 04-15-2024 ambulatory Shanita Jackson PA-C Work Phone: Pulmonary Medicine Comment on above: results of oxygen te sting Start: 04-10-2024 End: 04-10-2024 E-mail encounter from caregiver Shanita Jackson PA-C Work Phone: Pulmonary Medicine Start: 04-10-2024 End: 04-15-2024 Patient encounter procedure Fe Xiong RN [facility] Start: 04-03-2024 End: 04-03-2024 Patient encounter procedure Markus Rascon MD Work Phone: [facility] [place] Comment on above: Iron deficiency anem ia, unspecified iron deficiency anemia type (Primary Dx); Weight loss; Essential hypertension; HOCM (hypertrophic obstructive cardiomyopathy) (HCC); SVT (supraventricular tachycardia) (HCC) Start: 04-03-2024 End: 04-03-2024 ambulatory [facility] Facility:[facility] Start: 04-02-2024 End: 04-02-2024 [facility] Facility:[facility] Start: 04-02-2024 End: 04-02-2024 Patient encounter procedure Ariane Ramirez APRN.LEATHER STITCHER Work Phone: General Surgery Comment on above: Iron deficiency anem ia, unspecified iron deficiency anemia type (Primary Dx); Family history of colon cancer Start: 03-27-2024 End: 03-27-2024 ambulatory [facility] Work Phone: [facility] Comment on above: Spirometry Start: 03-27-2024 End: 03-27-2024 Patient encounter procedure [facility] Work Phone: [facility] Comment on above: Asthma-COPD overlap syndrome (HCC) (Primary Dx); Restrictive 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 Start: 03-26-2024 End: 03-26-2024 Emergency department patient visit Shaista Alfaro Facility:[facility] Start: 03-25-2024 End: 03-25-2024 ambulatory [facility] Start: 03-21-2024 End: 03-21-2024 ambulatory [facility] Facility:[facility] Start: 03-21-2024 End: 03-21-2024 Subsequent hospital visit [...] Refill Markus Rascon MD Work Phone: [facility] [place] Comment on above: Med Change Request Start: 03-12-2024 End: 03-12-2024 Office outpatient visit 15 minutes Debbie Constantino APRN.LEATHER STITCHER Work Phone: [facility] Comment on above: Weight loss (Primary Dx); Iron deficiency anemia, unspecified iron deficiency anemia type; Essential hypertension Start: 03-12-2024 End: 03-12-2024 ambulatory [facility] Facility:[facility] Start: 03-11-2024 End: 03-11-2024 Telephone encounter Rylee Duarte APRN.LEATHER STITCHER Work Phone: [facility] Comment on above: Results Start: 03-08-2024 End: 03-08-2024 [facility] Facility:[facility] Start: 03-05-2024 End: 03-05-2024 [facility] Facility:[facility] Start: 03-05-2024 End: 03-05-2024 Patient encounter procedure Daryl Hamlin MD Work Phone: General Surgery Comment on above: Iron deficiency anem ia, unspecified iron deficiency anemia type; Family history of colon cancer; Weight loss; Heme positive stool Start: 02-27-2024 End: 02-27-2024 ambulatory [facility] Facility:[facility] Start: 02-21-2024 End: 02-21-2024 Telephone encounter Markus Rascon MD Work Phone: [facility] [place] Comment on above: Patient Question Start: 02-19-2024 End: 03-21-2024 Telephone encounter Markus Rascon MD Work Phone: [facility] [place] Comment on above: Results Start: 02-16-2024 End: 02-16-2024 ambulatory MARKUS DICKINSONO Facility:[facility] Start: 02-14-2024 End: 02-14-2024 Telephone encounter Markus Rascon MD Work Phone: [facility] [place] Comment on above: Results Start: 02-13-2024 End: 02-13-2024 ambulatory [facility] Facility:[facility] Start: 02-12-2024 End: 02-12-2024 Patient encounter procedure Markus Rascon MD Work Phone: [facility] [place] Comment on above: Essential hypertensi on [...] COPD type (HCC) Start: 02-12-2024 End: 02-12-2024 ambulatory MARKUS Parekh TARAH Facility:[facility] Start: 02-06-2024 End: 02-06-2024 Postop follow up visit related to original px Marie Alston MD Work Phone: [facility] Comment on above: Postop check (Primar y Dx); OAB (overactive bladder); Anal skin tag Start: 02-06-2024 End: 02-06-2024 ambulatory MARIE ALSTON [facility] Start: 01-03-2024 End: 01-05-2024 Telephone encounter Leandro Chery MD Work Phone: [facility] Comment on above: Other (Restrictions after surgery) Start: 01-03-2024 End: 01-03-2024 Postop follow up visit related to original px Leandro Chery MD Work Phone: [facility] Comment on above: Post-operative state (Primary Dx) Start: 01-03-2024 End: 01-03-2024 ambulatory LEANDRO CHERY [facility] Start: 12-27-2023 End: 12-27-2023 Telephone encounter Leandro Chery MD Work Phone: [facility] Start: 12-25-2023 End: 12-25-2023 Telephone encounter Leandro Chery MD Work Phone: [facility] Start: 12-24-2023 End: 12-24-2023 Emergency department patient visit [facility] Facility:[facility] Start: 12-24-2023 End: 01-05-2024 ambulatory Shahnaz Casiano RN [facility] Clinical Communication Start: 12-24-2023 End: 01-05-2024 Patient encounter procedure Shahnaz Casiano RN [facility] Clinical Communication Start: 12-19-2023 End: 12-19-2023 ambulatory LEANDRO CHERY [facility] Start: 12-19-2023 End: 12-19-2023 Subsequent hospital visit by physician Leandro Chery MD Work Phone: [facility] Comment on above: Postoperative pain ( Primary Dx); Intra-abdominal and pelvic swelling, mass and lump, unspecified site; Abnormal findings on diagnostic imaging of other specified body structures; Incomplete uterovaginal prolapse; Cystocele, midline; Rectocele Start: 12-18-2023 End: 12-18-2023 ambulatory Leandro Chery MD Work Phone: [facility] Start: 12-18-2023 End: 12-18-2023 Telephone encounter Leandro Chery MD Work Phone: [facility] Start: 12-15-2023 End: 12-15-2023 ambulatory [facility] Start: 12-15-2023 End: 12-15-2023 ambulatory [facility] Facility:[facility] Start: 12-14-2023 Patient encounter procedure [facility] Start: 12-14-2023 End: 12-14-2023 ambulatory LEANDRO TITUSWS [facility] Start: 12-14-2023 End: 12-14-2023 Encounter for other preprocedural examination LEANDRO CHERY [facility] Start: 12-12-2023 End: 12-14-2023 Telephone encounter Leandro Chery MD Work Phone: [facility] Comment on above: surgery scheeduling (Scheduled at [facility]) Patient Question; Pa tient Update Start: 12-08-2023 End: 12-08-2023 Telephone encounter Leandro Chery MD Work Phone: [facility] Start: 12-05-2023 End: 12-05-2023 Patient encounter procedure Marie Alston MD Work Phone: [facility] Comment on above: Incomplete uterovagi nal prolapse (Primary Dx); Cystocele, midline; Rectocele; ALVIN (stress urinary incontinence, female) Start: 12-05-2023 End: 12-05-2023 ambulatory MARIE ALSTON [facility] Start: 12-04-2023 End: 12-04-2023 [facility] Facility:[facility] Start: 11-30-2023 End: 11-30-2023 Telephone encounter Leandro Chery MD Work Phone: [facility] Comment on above: surgery scheduling ( Scheduled at [facility]) Start: 11-30-2023 End: 11-30-2023 Patient encounter procedure [facility] Comment on above: ALVIN (stress urinary incontinence, female) Start: 11-30-2023 End: 11-30-2023 ambulatory [facility] Start: 11-28-2023 End: 11-28-2023 Office outpatient new 45 minutes Marie Alston MD Work Phone: [facility] Comment on above: Incomplete uterovagi nal prolapse (Primary Dx); Cystocele, midline; Rectocele; Incomplete bladder emptying; Abnormal urine finding Start: 11-28-2023 End: 11-28-2023 ambulatory MARIE ALSTON [facility] Start: 11-24-2023 End: 11-24-2023 Telephone encounter Leandro Chery MD Work Phone: [facility] Comment on above: Medication Problem Start: 11-22-2023 End: 11-22-2023 Office outpatient new 45 minutes Leandro Chery MD Work Phone: [facility] Comment on above: Pelvic mass in femal e (Primary Dx); Abnormal finding on radiology exam; Uterovaginal prolapse Start: 11-22-2023 End: 11-22-2023 ambulatory LEANDRO CHERY [facility] Start: 11-20-2023 End: 11-20-2023 ambulatory MARKUS RASCON Facility:[facility] Start: 11-20-2023 End: 11-20-2023 Patient encounter procedure Shanita Jackson PA-C Work Phone: Pulmonary Medicine Comment on above: Asthma-COPD overlap syndrome (HCC) (Primary Dx); Restrictive 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 Start: 10-23-2023 Refill Markus Rascon MD Work Phone: [facility] [place] Comment on above: Refill Request Start: 10-16-2023 Telephone encounter Rylee Duarte APRN.AUTOMOTIVE CENTER MANAGER Work Phone: [facility] [place] Start: 10-16-2023 End: 10-16-2023 Nursing evaluation of patient and report Nurse Card Admin [facility] Work Phone: Cardiology Comment on above: Chest pain, unspecif ied type Start: 10-16-2023 End: 10-16-2023 Subsequent hospital visit by physician Arabella Chester [facility] Work Phone: Nuclear Medicine Comment on above: Chest pain, unspecif ied type [R07.9] Start: 10-11-2023 Refill Mariana Russell MD Work Phone: Pulmonary Medicine Comment on above: Refill Request Start: 10-10-2023 ambulatory Nurse Card Adm in [facility] Work Phone: Cardiology Comment on above: Stress Test Instruct ions for 10/16/23 Start: 10-10-2023 E-mail encounter ana gamble caregiver Nurse Card Admin [facility] Work Phone: Cardiology Start: 09-07-2023 Telephone encounter Rylee Duarte APRN.AUTOMOTIVE CENTER MANAGER Work Phone: [facility] [place] Comment on above: Results Start: 09-05-2023 Telephone encounter Rylee Duarte APRN.AUTOMOTIVE CENTER MANAGER Work Phone: [facility] [place] Start: 09-04-2023 End: 09-04-2023 Office outpatient visit 25 minutes Rylee Duarte SOFTWARE ENGINEERING SPECIALIST.AUTOMOTIVE CENTER MANAGER Work Phone: [facility] [place] Comment on above: Screening for diabet es mellitus (Primary Dx); Age-related osteoporosis without current pathological fracture; Other disorders of glucose transport (HCC); Chest pain, unspecified type; Stable angina pectoris (HCC) Start: 08-29-2023 Telephone encounter Mariana Russell MD Work Phone: Pulmonary Medicine Comment on above: Patient Question (In surance formulary) Start: 07-18-2023 Telephone encounter Bertin Tobar DO Work Phone: Radiology Start: 07-10-2023 End: 07-10-2023 Patient encounter procedure [facility] Work Phone: Cardiology Comment on above: HOCM (hypertrophic o bstructive cardiomyopathy) (HCC) Start: 06-14-2023 End: 06-14-2023 ambulatory STACEY GIANG Facility:[facility] Start: 05-15-2023 End: 05-15-2023 ambulatory Danny Oneill DO Work Phone: Hematology/Oncology Comment on above: Monoclonal gammopath y (Primary Dx) Start: 05-15-2023 End: 05-15-2023 Patient encounter procedure Danny Oneill DO Work Phone[facility] [place] Start: 05-09-2023 End: 05-09-2023 Subsequent hospital visit by physician [facility]r [facility] Work Phone: Radiology Comment on above: Monoclonal gammopath y [D47.2] Start: 05-08-2023 Orders Only Danny Goddard Mai Ambrose Work Phone: Hematology/Oncology Comment on above: Monoclonal gammopath y (Primary Dx) Start: 04-24-2023 ambulatory Mariana Russell MD Work Phone: Pulmonary Medicine Comment on above: Symbicort INH 160-4. 5 Start: 03-30-2023 End: 03-30-2023 Patient encounter procedure Mariana Russell MD Work Phone: Pulmonary Medicine Comment on above: Asthma-COPD overlap syndrome (Primary Dx); Restrictive 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 Start: 03-07-2023 End: 03-07-2023 Subsequent hospital visit by physician Bone D[facility] Work Phone: Radiology Comment on above: Osteoporosis, unspec ified [M81.0] Start: 03-03-2023 End: 03-03-2023 ambulatory Immunization Clinic Nurse [place] Work Phone: [facility] Start: 01-10-2023 ambulatory Nusrat Duke MA [facility] [place] Comment on above: Population Health Na vigation Outreach ([facility]) Refill Request Start: 12-02-2022 End: 12-02-2022 ambulatory [facility] Work Phone: Start: 12-02-2022 End: 12-02-2022 Patient encounter procedure [facility]-Outpatient Breast Imaging Work Phone: Start: 11-17-2022 End: 11-17-2022 Patient encounter procedure Markus Rascon MD Work Phone: [facility] Comment on above: Forgetfulness (Prima ry Dx); Essential hypertension; SVT (supraventricular tachycardia) (HCC); Obstructive cardiomyopathy (HCC) Start: 10-18-2022 End: 10-18-2022 Emergency department patient visit Dr. Markus Rascon Work Phone: [facility]-Emergency Department Start: 09-26-2022 End: 09-26-2022 Patient encounter procedure Shanita Jackson PA-C Work Phone: Pulmonary Medicine Comment on above: Mild intermittent as thma without complication (Primary Dx); Restrictive 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 Start: 09-19-2022 Telephone encounter Markus Rascon MD Work Phone: [facility] Comment on above: Results Start: 09-16-2022 End: 09-16-2022 Patient encounter procedure Markus Rascon MD Work Phone: [facility] Comment on above: Osteoporosis, unspec ified (Primary Dx); Vitamin D deficiency; Essential hypertension; Obstructive cardiomyopathy (HCC); HOCM (hypertrophic obstructive cardiomyopathy) (HCC); SVT (supraventricular tachycardia) (HCC); Mild intermittent asthma without complication; Restrictive 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; Cyst of kidney, acquired; Monoclonal gammopathy; Age-related osteoporosis without current pathological fracture; Family history of colon cancer; Bilateral carotid artery stenosis; Mild memory disturbance; Dermatitis Start: 09-09-2022 End: 09-09-[address] Markus Rascon Work Phone: [facility] Work Phone: Start: 09-09-2022 End: 09-09-[address] Markus Rascon Work Phone: [facility]-Medical Out Start: 07-26-2022 End: 07-26-[address] Markus Rascon Work Phone: [facility] Endocrinology Start: 07-14-2022 Telephone encounter Clary Nolasco MD Work Phone: [facility] [place] Comment on above: Cardiac Clearance Start: 05-16-2022 End: 05-16-2022 Patient encounter procedure Clary Nolasco MD Work Phone: Cardiology Comment on above: Essential hypertensi on (Primary Dx); HOCM (hypertrophic obstructive cardiomyopathy) (HCC) Start: 05-12-2022 End: 05-12-2022 ambulatory Danny Oneill DO Work Phone: Hematology/Oncology Comment on above: Monoclonal gammopath y (Primary Dx) Start: 05-12-2022 End: 05-12-2022 Patient encounter procedure Danny Oneill DO Work Phone: [facility] Start: 05-04-2022 Orders Only Danny Owusu O Work Phone: Hematology/Oncology Comment on above: Monoclonal gammopath y (Primary Dx) Start: 05-02-2022 End: 05-02-2022 Subsequent hospital visit by physician Xr [facility] Comment on above: Monoclonal gammopath y [D47.2] Start: 03-22-2022 End: 03-22-2022 Patient encounter procedure Mariana Russell MD Work Phone: Pulmonary Medicine Comment on above: Mild intermittent as thma without complication (Primary Dx); Restrictive 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 Start: 03-18-2022 Manual pelvic examination Markus Rascon MD Work Phone: [facility] Start: 03-18-2022 End: 03-18-2022 Patient encounter procedure Markus Rascon MD Work Phone: [facility] Comment on above: Weight loss (Primary Dx); Encounter for immunization; Essential hypertension; HOCM (hypertrophic obstructive cardiomyopathy) (HCC) Start: 02-28-2022 ambulatory Markus Rascon MD Work Phone: [facility] Comment on above: Change in bp medicat ion Start: 02-17-2022 Telephone encounter Markus Rascon MD Work Phone: [facility] Comment on above: Blood Pressure Check Start: 02-17-2022 End: 02-17-2022 Nursing evaluation of patient and report Mi Nurse Work Phone: [facility] Comment on above: Essential hypertensi on (Primary Dx) Start: 02-14-2022 End: 02-14-[address] Markus Rascon Work Phone: [facility] Work Phone: Start: 02-14-2022 End: 02-14-[address] Markus Rascon Work Phone: [facility]-Cat Scan, [facility] Start: 02-08-2022 Telephone encounter Bertin Cathleen Artrommel DO Work Phone: Radiology Comment on above: Patient Question Start: 01-28-2022 Telephone encounter Markus Rascon MD Work Phone: [facility] Comment on above: Results Start: 01-24-2022 Telephone encounter Bertin Cathleen Tobar DO Work Phone: Radiology Comment on above: Results Start: 01-21-2022 End: 01-21-2022 Subsequent hospital visit by physician [facility] Cat Scan Comment on above: Weight loss [R63.4] Start: 01-17-2022 Telephone encounter Markus Rascon MD Work Phone: [facility] Comment on above: Results Start: 01-17-2022 End: 01-17-2022 Patient encounter procedure Markus Rascon MD Work Phone: [facility] Comment on above: Weight loss (Primary Dx); Essential hypertension; Restrictive 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; Monoclonal gammopathy Start: 12-17-2021 End: 12-17-2021 Patient encounter procedure Markus Rascon MD Work Phone: [facility] Comment on above: Weight loss (Primary Dx); Essential hypertension; Hypercalcemia; Non-rheumatic mitral regurgitation; Monoclonal gammopathy; Mitral valve prolapse; Bilateral carotid artery stenosis; Obstructive cardiomyopathy (HCC) Start: 11-30-2021 End: 11-30-[address] Markus Rascon Work Phone: [facility] Start: 11-22-2021 ambulatory Evette galvan APRN.LEATHER STITCHER Work Phone: [facility] Comment on above: Blood pressure Symbicort Start: 11-22-2021 E-mail encounter fro m caregiver Evette William APRN.LEATHER STITCHER Work Phone: [facility] Start: 10-21-2021 Telephone encounter Breanna Theodore APRN.LEATHER STITCHER Work Phone: [facility] Comment on above: Results Start: 10-19-2021 Telephone encounter Clary Nolasco MD Work Phone: [facility] [place] Comment on above: Patient Update Start: 10-18-2021 Telephone encounter Markus Rascon MD Work Phone: [facility] Comment on above: Blood Pressure Check Appointment (cardiol ogy) Start: 10-18-2021 End: 10-18-2021 Nursing evaluation of patient and report Mi Nurse Work Phone: [facility] Comment on above: Essential hypertensi on (Primary Dx) Start: 10-14-2021 Telephone encounter Markus Rascon MD Work Phone: [facility] Comment on above: Medication Question Start: 10-13-2021 Telephone encounter Debbie sheets APRN.LEATHER STITCHER Work Phone: [facility] Comment on above: Results Start: 10-12-2021 End: 10-12-2021 Office outpatient visit 15 minutes Debbie Constantino APRN.LEATHER STITCHER Work Phone: [facility] Comment on above: Swelling (Primary Dx ); Multiple thyroid nodules; Obstructive cardiomyopathy (HCC) Start: 09-23-2021 End: 09-23-[address] Markus Rascon Work Phone: [facility] Orthopaedic Specia Start: 09-17-2021 Telephone encounter Bertin Tobar DO Work Phone: Radiation Oncology Comment on above: Release Of Medical R ecords Start: 09-16-2021 Telephone encounter Markus Rascon MD Work Phone: [facility] Comment on above: Results Start: 09-16-2021 End: 09-16-2021 Subsequent hospital visit by physician [facility] [place] Work Phone: Radiology Comment on above: Hip pain, right [M25 .551] Start: 09-16-2021 End: 09-16-2021 Patient encounter procedure Markus Rascon MD Work Phone: [facility] Comment on above: HOCM (hypertrophic o bstructive cardiomyopathy) (HCC) (Primary Dx); Screening breast examination; Encounter for screening mammogram for malignant neoplasm of breast ; Hip pain, right; Shoulder tendonitis, left; Obstructive cardiomyopathy (HCC); Restrictive 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 Start: 09-13-2021 Telephone encounter Markus Rascon MD Work Phone: [facility] Comment on above: Results Start: 09-13-2021 End: 09-13-2021 Subsequent hospital visit by physician [facility] ([facility]) Work Phone: Cat Scan Comment on above: Other injury of unsp ecified muscle, fascia and tendon at shoulder and upper arm level, unspecified arm, initial encounter [S46.999A] Start: 09-09-2021 Telephone encounter Markus Rascon MD Work Phone: [facility] Comment on above: Patient Question Start: 09-07-2021 End: 09-07-2021 Subsequent hospital visit by physician Xr [facility] [place] Work Phone: Radiology Comment on above: Acute pain of left s houlder [M25.512] Start: 09-07-2021 Telephone encounter May Bridges PA-C Work Phone: [facility] Comment on above: CT schedule Start: 09-03-2021 End: 09-03-[address] Markus Rascon Work Phone: [facility]-Medical Out Start: 08-31-2021 Telephone encounter Markus Rascon MD Work Phone: [facility] Comment on above: Ortho referral Start: 07-16-2021 End: 07-16-[address] Markus Rascon Work Phone: [facility] Endocrinology Start: 11-24-2020 End: 11-24-2020 Subsequent hospital visit by physician [facility]r [facility] Work Phone: Radiology Comment on above: SOB (shortness of br eath) [R06.02] Start: 03-18-2020 Manual pelvic examination Leandro Chery MD Work Phone: [facility] Start: 01-24-2017 End: 09-16-2022 Manual pelvic examination Nurse [facility] Work Phone: [facility] Procedures Date Procedure Procedure Detail Performing Clinician Start: 03-27-2024 End: 03-27-2024 Plethysmography lung volumes w/wo airway resist Shanita Jackson PA-C Work Phone: Start: 03-21-2024 Colonoscopy flx dx w/collj spec when pfrmd Daryl Hamlin MD Work Phone: Start: 03-21-2024 Esophagogastroduodenoscopy transoral diagnostic Daryl Hamlin MD Work Phone: Start: 03-21-2024 End: 03-21-2024 Colonoscopy Markus Rascon MD Work Phone: Start: 02-12-2024 Adult depression screening assessment Markus Rascon MD Work Phone: Start: 12-19-2023 End: 12-19-2023 Cmbnd anterpost colporraphy w/cysto Marie Alston MD Work Phone: Start: 12-19-2023 [...] 12 lds trcg only w/o i&r Allyson Nieto SOFTWARE ENGINEERING SPECIALIST - [employer]RE SMELTER Work Phone: Start: 12-19-2023 Blood count complete automated Leandro Chery MD Work Phone: Start: 12-14-2023 Antibody screen LEANDRO CHERY Comment on above: Performed By: #### [id number] #### Switch Foreman: RANJIT ORTIZ ([phone]) [facility] BLOOD [facility] [address] [place], [place] [address] [place] [address] Start: 12-04-2023 Lipid 1996 panel - Serum or Plasma Denis Rascon MD Work Phone: Start: 11-28-2023 Culture bacterial quanttative colony count urine Marie Alston MD Work Phone: Start: 11-28-2023 End: 11-28-2023 Urnls dip stick/tablet rgnt non-auto w/o micrscp Marie Alston MD Work Phone: Start: 10-16-2023 Myocardial spect multiple studies Celine Goddard Suppan SOFTWARE ENGINEERING SPECIALIST.AUTOMOTIVE CENTER MANAGER Work Phone: Start: 09-04-2023 Ecg routine ecg w/least 12 lds i&r only Rylee Goddard Suppraz SOFTWARE ENGINEERING SPECIALIST.AUTOMOTIVE CENTER MANAGER Work Phone: Start: 07-10-2023 Echo tthrc r-t 2d w/wom-mode compl spec&colr d Clary Nolasco MD Work Phone: Start: 07-10-2023 LVEF TRANSTHORACIC ECHO Clary Nolasco MD Work Phone: Start: 03-07-2023 Dxa bone density study 1/> sites axial skel Markus Rascon MD Work Phone: Start: 03-03-2023 INFLUENZA VACCINE, PRSV FREE, AGE 65+ YR, HIGH DOSE, QUADRIVALENT (FLUZONE HIGH-DOSE) Markus Rascon MD Work Phone: Start: 12-02-2022 End: 06-30-2023 Screening mammography Start: 03-18-2022 INFLUENZA SEASONAL QUADRIVALENT HIGH DOSE AGE 65+ Markus Rascon MD Work Phone: Start: 02-14-2022 Computed tomography of abdomen and pelvis with contrast Dr. Markus Rascon Work Phone: Start: 12-22-2021 Lipid 1996 panel - Serum or Plasma Adelaida Nolasco MD Work Phone: Start: 11-30-2021 End: 11-30-[address] Markus Rascon Work Phone: Start: 09-16-2021 Radex hip unilateral with pelvis 2-3 views Markus Rascon MD Work Phone: Start: 09-16-2021 Adult depression screening assessment Markus Rascon MD Work Phone: Start: 09-13-2021 Ct upper extremity w/o contrast material M GuanakoInfoGinon PA-C Work Phone: Start: 09-07-2021 Radex shoulder complete minimum 2 views M Guanako Bridges PA-C Work Phone: Start: 11-24-2020 Radiologic exam chest 2 views M Guanako Bridges PA-C Work Phone: Start: 11-12-2020 Mammography Markus Rascon MD Work Phone: Start: 09-24-2020 Colonoscopy Markus Rascon MD Work Phone: Start: 02-27-2018 Adult depression screening assessment Markus Rascon MD Work Phone: Plan of Treatment Date Care Activity Detail Author Start: 03-21-2029 Screening for malignant neoplasm of colon [facility] Start: 12-03-2028 Lipid panel Lipid Screening [facility] Start: 12-28-2027 Urine microalbumin profile [facility] Start: 10-08-2027 Diabetes Screening Diabetes Screening [facility] Start: 06-27-2027 Diabetes Screening Diabetes Screening [facility] Start: 02-12-2027 Diabetes Screening Diabetes Screening [facility] Start: 12-22-2026 Lipid 1996 panel - Serum or Plasma Lipid Screening [facility] Start: 12-22-2026 Lipid panel Lipid Screening [facility] Start: 12-22-2026 LIPID SCREEN LIPID SCREEN [facility] Start: 12-03-2026 Diabetes Screening Diabetes Screening [facility] Start: 09-03-2026 Diabetes Screening Diabetes Screening [facility] Start: 05-09-2026 Diabetes Screening Diabetes Screening [facility] Start: 11-11-2025 DIABETES SCREEN DIABETES SCREEN [facility] Start: 11-11-2025 Diabetes Screening Diabetes Screening [facility] Start: 10-25-2025 Screening for malignant neoplasm of colon Fecal Occult Blood [facility] Start: 10-07-2025 Screening for malignant neoplasm of colon Fecal Occult Blood [facility] Start: 10-04-2025 Annual PCP Team Chronic Disease Visit Annual PCP Team Chronic Disease Visit [facility] Start: 10-04-2025 Covid-19 Vaccine () Covid-19 Vaccine () [facility] Comment on above: Postponed from 10/02/2024 (Declined at t his time) Start: 09-24-2025 Colonoscopy COLONOSCOPY [facility] Start: 09-24-2025 COLORECTAL CANCER SCREENING COLORECTAL CANCER SCREENING [facility] Start: 09-24-2025 Screening for malignant neoplasm of colon [facility] Start: 09-16-2025 DIABETES SCREEN DIABETES SCREEN [facility] Start: 07-03-2025 End: 07-03-2025 ambulatory 07/03/2025 11:50 AM EST Visit (SP) Office Hematology/Oncology [address] [place] [address] Danny Oneill DO [address] [place] [address] 1YR OV/ Hematology/Oncology Comment on above: 1YR OV/ Start: 06-28-2025 Annual PCP Team Chronic Disease Visit Annual PCP Team Chronic Disease Visit [facility] Start: 06-26-2025 End: 06-26-2025 ambulatory 06/26/2025 10:00 AM EST Results Only [facility] [address] [place] [address] CBC/CMP/MYELOMA* [facility] Comment on above: CBC/CMP/MYELOMA* Start: 06-23-2025 End: 06-23-2025 Patient encounter procedure 06/23/2025 11:00 AM EST Office Visit Cardiology [address] [place] [address] Clary Nolasco MD [address] [facility], [address] [place] [address] 1 year follow up Cardiology Comment on above: 1 year follow up Start: 06-16-2025 End: 06-16-2025 Patient encounter procedure Mobile PET CT Comment on above: NM PET/CT WHOLE BODY INITIAL Start: 05-31-2025 Annual PCP Team Chronic Disease Visit Annual PCP Team Chronic Disease Visit [facility] Start: 05-05-2025 DIABETES SCREEN DIABETES SCREEN [facility] Start: 05-01-2025 Annual PCP Team Chronic Disease Visit Annual PCP Team Chronic Disease Visit [facility] Start: 04-03-2025 Annual PCP Team Chronic Disease Visit Annual PCP Team Chronic Disease Visit [facility] Start: 04-02-2025 End: 04-02-2025 Patient encounter procedure Pulmonary Medicine Comment on above: 6 MTH F/U ASTHMA / COPD Start: 03-12-2025 Annual PCP Team Chronic Disease Visit Annual PCP Team Chronic Disease Visit [facility] Start: 03-07-2025 Screening for osteoporosis [facility] Start: 02-15-2025 Screening for malignant neoplasm of colon [facility] Start: 02-11-2025 Annual PCP Team Chronic Disease Visit Annual PCP Team Chronic Disease Visit [facility] Start: 02-11-2025 Anxiety Screening Anxiety Screening [facility] Start: 02-11-2025 Covid-19 Vaccine () Covid-19 Vaccine () [facility] Comment on above: Postponed from 02/04/2024 (Declined at t his time) Start: 02-11-2025 Covid-19 Vaccine () Covid-19 Vaccine () [facility] Comment on above: Postponed from 02/04/2024 (Declined at t his time) Start: 02-11-2025 Depression Screening Depression Screening [facility] Start: 02-11-2025 Shingrix Vaccine (2 of 3) Shingrix Vaccine (2 of 3) [facility] Comment on above: Postponed from 06/25/2012 (Declined at t his time) Start: 02-04-2025 End: 02-04-2025 Patient encounter procedure 02/04/2025 11:00 AM EDT [facility] [address] [place] [id number] Mulu Salazar, SOFTWARE ENGINEERING SPECIALIST - LEATHER STITCHER [address] [place] [address] [facility] Start: 02-03-2025 Influenza vaccination Influenza Vaccine (#1) [facility] Start: 01-13-2025 End: 01-13-2025 Patient encounter procedure 01/13/2025 3:20 PM EDT Office Visit Family Medicine [place] [address] [place], [place] [id number] Markus Rascon MD [address] [place] [address] Medicare Wellness [facility] Medicine [place] Comment on above: Medicare Wellness Start: 12-22-2024 DIABETES SCREEN DIABETES SCREEN [facility] Start: 12-03-2024 Diabetes mellitus screening Diabetes Screening [facility] Start: 12-03-2024 Screening for malignant neoplasm of breast Mammogram Screening [facility] Start: 10-20-2024 DIABETES SCREEN DIABETES SCREEN [facility] Start: 10-12-2024 DIABETES SCREEN DIABETES SCREEN [facility] Start: 10-04-2024 End: 01-03-2025 25-hydroxyvitamin D3 [Mass/volume] in Serum or Plasma VITAMIN D 25 HYDROXY Lab Routine Vitamin D deficiency Expected: 10/04/2024, Expires: 01/03/2025 [facility] Comment on above: Expected: 10/04/2024, Expires: Start: 10-04-2024 End: 01-03-2025 Basic metabolic 2000 panel - Serum or Plasma BASIC METABOLIC PANEL Lab Routine Lightheadedness Expected: 10/04/2024, Expires: 01/03/2025 [facility] Comment on above: Expected: 10/04/2024, Expires: Start: 10-04-2024 End: 01-03-2025 CBC W Auto Differential panel - Blood COMPLETE BLOOD COUNT AND DIFFERENTIAL Lab Routine Lightheadedness Expected: 10/04/2024, Expires: 01/03/2025 [facility] Work Phone: Comment on above: Expected: 10/04/2024, Expires: Start: 10-04-2024 End: 10-04-2024 Patient encounter procedure 10/04/2024 11:40 AM EDT Office Visit Family Medicine [place] [address] [place] [place], [place] [address] Markus Rascon MD [address] [place] [place], [place] [id number] 3 month follow up Family Medicine [place] Comment on above: 3 month follow up Start: 10-02-2024 Covid-19 Vaccine ( season) Covid-19 Vaccine () [facility] Start: 10-02-2024 Shingrix Vaccine (3 of 3) Shingrix Vaccine (3 of 3) [facility] Start: 09-25-2024 End: 09-25-2024 Patient encounter procedure 09/25/2024 11:00 AM EDT Office Visit Pulmonary Medicine [address] [place] [address] Shanita Jackson, PA-C [address] [place] [address] 6 month f/u Pulmonary Medicine Comment on above: 6 month f/u Start: 08-06-2024 End: 08-06-2024 Patient encounter procedure [facility] Start: 07-04-2024 End: 07-04-2024 ambulatory 07/04/2024 9:50 AM EST Visit (SP) Office Hematology/Oncology [address] [place], [place] [id number] Danny Oneill DO [address] [place] [address] 1 YR OV/LABS 06/27* Hematology/Oncology Comment on above: 1 YR OV/LABS 06/27* Start: 06-28-2024 End: 06-28-2024 Patient encounter procedure 06/28/2024 11:40 AM EST Office Visit [facility] [place] [address] [place] [address] Markus Rascon MD [address] [place] [address] 3 month follow up Family [facility] [place] Comment on above: 3 month follow up Start: 06-27-2024 End: 06-27-2024 ambulatory 06/27/2024 8:45 AM EST Results Only [facility] [address] [place] [address] CBC/CMP/Myeloma labs/YASMIN* [facility] Comment on above: CBC/CMP/Myeloma labs/YASMIN* Start: 06-24-2024 End: 06-24-2024 Patient encounter procedure 06/24/2024 10:00 AM EST Office Visit Cardiology [address] [place] [id number] Clary Nolasco MD [address] [facility], [address] [place] [address] 1 year f/u Cardiology Comment on above: 1 year f/u Start: 06-13-2024 Annual PCP Team Chronic Disease Visit Annual PCP Team Chronic Disease Visit [facility] Start: 06-05-2024 Advance Directive Discussion Advance Directive Discussion [facility] Start: 05-31-2024 End: 08-30-2024 Parathyrin.intact [Mass/volume] in Serum or Plasma PTH INTACT Lab Routine Elevated parathyroid hormone Expected: 05/31/2024, Expires: 08/30/2024 [facility] Work Phone: Comment on above: Expected: 05/31/2024, Expires: Start: 05-31-2024 End: 05-31-2024 Patient encounter procedure [facility] Comment on above: 4 week BP check. Bring cuff to validate Start: 05-30-2024 End: 05-30-2024 ambulatory 05/30/2024 9:30 AM EST Results Only [place] [facility] Draw Station [address] [place] [address] [facility] Start: 05-07-2024 End: 05-07-2024 Patient encounter procedure 05/07/2024 1:00 PM EST Office Visit Pulmonary Medicine [address] [place] [place] [address] Parvin Kaur APRN.LEATHER STITCHER [address] [employer] [address] [place] [address] discuss PFT's and need for oxygen Pulmonary Medicine Comment on above: discuss PFT's and need for oxygen Start: 05-05-2024 DIABETES SCREEN DIABETES SCREEN [facility] Start: 05-01-2024 End: 07-31-2024 CBC W Auto Differential panel - Blood COMPLETE BLOOD COUNT AND DIFFERENTIAL Lab Routine Iron deficiency anemia, unspecified iron deficiency anemia type Expected: 05/01/2024, Expires: 07/31/2024 [facility] Comment on above: Expected: 05/01/2024, Expires: Start: 05-01-2024 End: 05-01-2024 Patient encounter procedure 05/01/2024 10:00 AM EST Office Visit Family [facility] [place] [address] [facility] [place] [address] Debbie Constantino APRN.LEATHER STITCHER [address] [place] [address] 4 week BP check. Bring cuff to validate [facility] [place] Comment on above: 4 week BP check. Bring cuff to validate Start: 04-29-2024 End: 04-29-2024 ambulatory 04/29/2024 9:00 AM EST Results Only [place] Draw Station [address] [facility] [place] [address] [facility] Start: 04-16-2024 End: 04-16-2024 Patient encounter procedure 04/16/2024 10:30 AM EST Office Visit [facility] [address] [place] [phone] Bj Allen SOFTWARE ENGINEERING SPECIALIST - LEATHER STITCHER [address] [place] [address] [facility] Start: 04-03-2024 End: 04-03-2024 Patient encounter procedure 04/03/2024 2:20 PM EDT Office Visit Family Medicine [place] [address] [place] [id number] Markus Rascon MD [address] [place] [address] 2 week follow up weight loss Family [facility] Comment on above: 2 week follow up weight loss Start: 04-03-2024 End: 07-03-2024 CBC W Auto Differential panel - Blood COMPLETE BLOOD COUNT AND DIFFERENTIAL Lab Routine Iron deficiency anemia, unspecified iron deficiency anemia type Expected: 04/03/2024, Expires: 07/03/2024 [facility] Work Phone: Comment on above: Expected: 04/03/2024, Expires: Start: 04-02-2024 End: 04-02-2024 Patient encounter procedure 04/02/2024 10:30 AM EDT Office Visit General Surgery [address] [place] [address] Ariane Ramirez, SOFTWARE ENGINEERING SPECIALIST.LEATHER STITCHER [address] [place] [address] 03-21 colonoscopy follow up General Surgery Comment on above: 03-21 colonoscopy follow up Start: 03-27-2024 End: 03-27-2024 Patient encounter procedure 03/27/2024 10:30 AM EDT Office Visit Pulmonary Medicine [address] [place] [id number] Shanita Jackson PA-C [address] [place] [address] 4 MO F/U Pulmonary Medicine Comment on above: 4 MO F/U Start: 03-21-2024 End: 03-21-2024 Patient encounter procedure 03/21/2024 1:15 PM EDT Appointment Ambulatory Surgery [address] [place] [address] Daryl Hamlin MD [address] [place] [address] Ambulatory Surgery Start: 03-21-2024 End: 03-21-2024 Patient encounter procedure 03/21/2024 11:45 AM EDT Appointment Ambulatory Surgery [address] [place] [address] Daryl Hamlin MD [address] [place] [address] Ambulatory Surgery Start: 03-18-2024 End: 03-18-2024 ambulatory 03/18/2024 9:00 AM EDT Results Only [place] [facility] Draw Station [address] [place] [address] [place] Draw Station Start: 03-12-2024 End: 03-12-2024 Patient encounter procedure 03/12/2024 10:40 AM EDT Office Visit Family Medicine [place] [address] [place] [address] Debbie Constantino APRN.LEATHER STITCHER [address] [place] [address] 4 week follow up weight loss Family [facility] [place] Comment on above: 4 week follow up weight loss Start: 03-08-2024 End: 03-08-2024 ambulatory 03/08/2024 9:00 AM EDT Results Only [place] Draw Station [address] [place] [address] LABS [place] Draw Station Comment on above: LABS Start: 03-05-2024 End: 03-05-2024 Patient encounter procedure 03/05/2024 11:00 AM EDT Office Visit General Surgery [address] [address] Daryl Hamlin MD [address] [place] [address] Iron deficiency anemia, unspecified iron deficiency anemia type [D50.9]; Family history of colon cancer [Z80.0]; Weight loss [R63.4]; Heme positive stool [R19.5] General Surgery Comment on above: Iron deficiency anemia, unspecified iron deficiency anemia type [D50.9]; Family history of colon cancer [Z80.0]; Weight loss [R63.4]; Heme positive stool [R19.5] Start: 02-27-2024 End: 02-27-2024 Patient encounter procedure [facility] Comment on above: Bilateral carotid artery stenosis [I65.2 3] Start: 02-20-2024 End: 02-20-2024 ambulatory 02/20/2024 10:00 AM EDT Results Only [facility] Draw Station [address] [facility] [place] [address] . [facility] Draw Station Comment on above: . Start: 02-14-2024 End: 02-13-2025 CBC W Auto Differential panel - Blood COMPLETE BLOOD COUNT AND DIFFERENTIAL Lab Routine Anemia, unspecified type Expected: 02/14/2024, Expires: 02/13/2025 [facility] Work Phone: Comment on above: Expected: 02/14/2024, Expires: Start: 02-14-2024 End: 02-13-2025 Cobalamin (Vitamin B12) [Mass/volume] in Serum or Plasma VITAMIN B12 Lab Routine Anemia, unspecified type Expected: 02/14/2024, Expires: 02/13/2025 [facility] Comment on above: Expected: 02/14/2024, Expires: Start: 02-14-2024 End: 02-13-2025 Ferritin [Mass/volume] in Serum or Plasma FERRITIN Lab Routine Anemia, unspecified type Expected: 02/14/2024, Expires: 02/13/2025 [facility] Comment on above: Expected: 02/14/2024, Expires: Start: 02-14-2024 End: 02-13-2025 Folate [Mass/volume] in Serum or Plasma FOLATE, SERUM Lab Routine Anemia, unspecified type Expected: 02/14/2024, Expires: 02/13/2025 [facility] Comment on above: Expected: 02/14/2024, Expires: Start: 02-14-2024 End: 02-13-2025 Hemoglobin.gastrointestin al.lower [Presence] in Stool by Immunoassay IMMUNOCHEMICAL FECAL OCCULT BLOOD TEST Lab Routine Anemia, unspecified type Expected: 02/14/2024, Expires: 02/13/2025 [facility] Comment on above: Expected: 02/14/2024, Expires: Start: 02-14-2024 End: 02-13-2025 Iron and Iron binding capacity panel - Serum or Plasma IRON AND TIBC Lab Routine Anemia, unspecified type Expected: 02/14/2024, Expires: 02/13/2025 [facility] Comment on above: Expected: 02/14/2024, Expires: Start: 02-13-2024 End: 02-13-2024 ambulatory 02/13/2024 10:00 AM EDT Results Only [facility] Draw Station [address] [place] [address] labs [facility] Draw Station Comment on above: labs Start: 02-12-2024 End: 05-13-2024 CBC W Auto Differential panel - Blood COMPLETE BLOOD COUNT AND DIFFERENTIAL Lab Routine Weight loss Expected: 02/12/2024, Expires: 05/13/2024 [facility] Work Phone: Comment on above: Expected: 02/12/2024, Expires: Start: 02-12-2024 End: 05-13-2024 Comprehensive metabolic 2000 panel - Serum or Plasma COMPREHENSIVE METABOLIC PANEL Lab Routine Weight loss Expected: 02/12/2024, Expires: 05/13/2024 [facility] Comment on above: Expected: 02/12/2024, Expires: Start: 02-12-2024 End: 05-13-2024 Prealbumin [Mass/volume] in Serum or Plasma PREALBUMIN Lab Routine Weight loss Expected: 02/12/2024, Expires: 05/13/2024 [facility] Comment on above: Expected: 02/12/2024, Expires: Start: 02-12-2024 End: 05-13-2024 Thyrotropin [Units/volume] in Serum or Plasma THYROID STIMULATING HORMONE Lab Routine Weight loss Expected: 02/12/2024, Expires: 05/13/2024 [facility] Comment on above: Expected: 02/12/2024, Expires: Start: 02-09-2024 End: 02-09-2024 Patient encounter procedure 02/09/2024 2:00 PM EDT Office Visit [facility] [place] [address] [place] [address] aMrkus Rascon MD [address] [place] [address] 6 month follow up. Fasting labs prior [facility] Comment on above: 6 month follow up. Fasting labs prior Start: 02-06-2024 End: 02-06-2024 Patient encounter procedure 02/06/2024 1:45 PM EDT Office Visit [facility] [facility] [address] [place] [phone] Marie Alston MD [address] [place] [address] [address] [place] [address] [facility] Start: 02-04-2024 COVID-19 Vaccine ( season) COVID-19 Vaccine ( season) [facility] Start: 02-04-2024 COVID-19 Vaccine ( season) COVID-19 Vaccine ( season) [facility] Start: 02-04-2024 Influenza vaccination Influenza Vaccine (#1) [facility] Start: 01-17-2024 End: 01-17-2024 Admission to same day surgery center 01/17/2024 7:30 AM EDT - 01/17/2024 12:00 PM EDT Surgery [facility] MA[facility] OR [address] [place] [address] Marie Alston MD [address] [place] [address] [address] [place] [address] UTEROSCARAL LIGAMENT SUSPENSION, ANTERIOR/POSTERIOR REPAIR, POSSIBLY SLING PROCEDURE, CYSTOSCOPY [23165 (CPT )] [facility] Comment on above: UTEROSCARAL LIGAMENT SUSPENSION, ANTERIO R/POSTERIOR REPAIR, POSSIBLY SLING PROCEDURE, CYSTOSCOPY [44452 (CPT )] Start: 01-17-2024 End: 01-17-2024 Cmbnd anterpost colporraphy w/cysto ANTERIOR AND POSTERIOR COLPORRHAPHY Incomplete uterovaginal prolapse Cystocele, midline Rectocele Intra-abdominal and pelvic swelling, mass and lump, unspecified site Abnormal findings on diagnostic imaging of other specified body structures 01/17/2024 7:30 AM EDT [facility] Operating Room Start: 01-17-2024 End: 01-17-2024 Colpopexy vaginal intraperitoneal approach COLPOPEXY VAGINAL INTRAPERITONEAL APPROACH (UTEROSCARAL, LEVATOR MYORRHAPHY) Incomplete uterovaginal prolapse Cystocele, midline Rectocele Intra-abdominal and pelvic swelling, mass and lump, unspecified site Abnormal findings on diagnostic imaging of other specified body structures 01/17/2024 7:30 AM EDT [facility] Operating Room Start: 01-17-2024 End: 01-17-2024 Cystourethroscopy CYSTOSCOPY Incomplete uterovaginal prolapse Cystocele, midline Rectocele Intra-abdominal and pelvic swelling, mass and lump, unspecified site Abnormal findings on diagnostic imaging of other specified body structures 01/17/2024 7:30 AM EDT [facility] Operating Room Start: 01-17-2024 End: 01-17-2024 Laps w/vag hysterect 250 gm/&rmvl tube&/ovaries [facility] Operating Room Start: 01-17-2024 End: 01-17-2024 Sling operation stress incontinence SLING OPERATION FOR STRESS INCONTINENCE Incomplete uterovaginal prolapse Cystocele, midline Rectocele Intra-abdominal and pelvic swelling, mass and lump, unspecified site Abnormal findings on diagnostic imaging of other specified body structures 01/17/2024 7:30 AM EDT [facility] Operating Room Start: 01-17-2024 Subsequent hospital visit by physician 01/17/2024 5:30 AM EDT Hospital Encounter [facility] OR [address] [facility] [place] [phone] Marie Alston MD [address] [facility] [address] [place] [address] [facility] OR Start: 01-05-2024 End: 01-05-2024 Admission to establishment 01/05/2024 11:00 AM EDT Pre-Admission Testing [facility] Pre-Admit Testing [address] [place] [address] [facility] Pre-Admit Testing Start: 01-03-2024 End: 01-03-2024 Patient encounter procedure 01/03/2024 10:45 AM EDT Office Visit [facility] [address] [facility] [address] [place] [phone] Leandro Chery MD [address] [facility] [address] [place] [address] [facility] Start: 12-29-2023 End: 12-29-2023 Admission to establishment 12/29/2023 11:00 AM EDT Pre-Admission Testing [facility] Pre-Admit Testing [address] [place] [phone] [facility] Pre-Admit Testing Start: 12-19-2023 End: 12-19-2023 Admission to same day surgery center 12/19/2023 12:30 PM EDT - 12/19/2023 5:00 PM EDT Surgery [facility] MA[facility] OR [address] [facility] [place] [phone] Leandro Chery MD [address] [facility] [address] [place] [address] LAPAROSCOPIC VAGINAL HYSTERECTOMY WITH REMOVAL BILATERAL SALPINGO OOPHORECTOMY [51007 (CPT )] [facility] OR Comment on above: LAPAROSCOPIC VAGINAL HYSTERECTOMY WITH R EMOVAL BILATERAL SALPINGO OOPHORECTOMY [32517 (CPT )] Start: 12-19-2023 End: 12-19-2023 Anesthesia consultation 12/19/2023 12:30 PM EDT Anesthesia Event [facility] OR [address] [place] [address] Cherelle Rivers PA-C [address] [place] [address] [facility] OR Start: 12-19-2023 End: 12-19-2023 Cmbnd anterpost colporraphy w/cysto ANTERIOR AND POSTERIOR COLPORRHAPHY Intra-abdominal and pelvic swelling, mass and lump, unspecified site Abnormal findings on diagnostic imaging of other specified body structures Incomplete uterovaginal prolapse Cystocele, midline Rectocele 12/19/2023 12:30 PM EDT [facility] Operating Room Start: 12-19-2023 End: 12-19-2023 Colpopexy vaginal intraperitoneal approach COLPOPEXY VAGINAL INTRAPERITONEAL APPROACH (UTEROSCARAL, LEVATOR MYORRHAPHY) Intra-abdominal and pelvic swelling, mass and lump, unspecified site Abnormal findings on diagnostic imaging of other specified body structures Incomplete uterovaginal prolapse Cystocele, midline Rectocele 12/19/2023 12:30 PM EDT [facility] Operating Room Start: 12-19-2023 End: 12-19-2023 Cystourethroscopy CYSTOSCOPY Intra-abdominal and pelvic swelling, mass and lump, unspecified site Abnormal findings on diagnostic imaging of other specified body structures Incomplete uterovaginal prolapse Cystocele, midline Rectocele 12/19/2023 12:30 PM EDT [facility] Operating Room Start: 12-19-2023 End: 12-19-2023 Laps w/vag hysterect 250 gm/&rmvl tube&/ovaries LAPAROSCOPIC VAGINAL HYSTERECTOMY WITH REMOVAL OF TUBES AND/OR OVARIES Intra-abdominal and pelvic swelling, mass and lump, unspecified site Abnormal findings on diagnostic imaging of other specified body structures Incomplete uterovaginal prolapse Cystocele, midline Rectocele 12/19/2023 12:30 PM EDT [facility] Operating Room Start: 12-19-2023 End: 12-19-2023 Sling operation stress incontinence SLING OPERATION FOR STRESS INCONTINENCE Intra-abdominal and pelvic swelling, mass and lump, unspecified site Abnormal findings on diagnostic imaging of other specified body structures Incomplete uterovaginal prolapse Cystocele, midline Rectocele 12/19/2023 12:30 PM EDT [facility] Operating Room Start: 12-19-2023 Subsequent hospital visit by physician 12/19/2023 10:30 AM EDT Hospital Encounter [facility] MA[facility] OR [address] [place] [phone] Leandro Chery MD [address] [facility] [address] [place] [address] [facility] OR Start: 12-18-2023 End: 12-18-2023 Patient encounter procedure 12/18/2023 1:40 PM EDT Office Visit Family [place] [address] [place] [address] Markus Rascon MD [address] [place], [place] [phone] 6 month follow up. Fasting labs prior [facility] [place] Comment on above: 6 month follow up. Fasting labs prior Start: 12-14-2023 End: 12-14-2023 Admission to establishment 12/14/2023 3:00 PM EDT Pre-Admission Testing [facility] Pre-Admit Testing [address] [place] [phone] Leandro Chery MD [address] [facility] [address] [place] [address] [facility] Pre-Admit Testing Start: 12-13-2023 End: 03-13-2024 Calcium.ionized [Moles/volume] in Blood CALCIUM, IONIZED Lab Routine Hypercalcemia Expected: 12/13/2023, Expires: 03/13/2024 [facility] Work Phone: Comment on above: Expected: 12/13/2023, Expires: Start: 12-13-2023 End: 03-13-2024 Parathyrin.intact [Mass/volume] in Serum or Plasma PTH INTACT Lab Routine Hypercalcemia Expected: 12/13/2023, Expires: 03/13/2024 [facility] Comment on above: Expected: 12/13/2023, Expires: Start: 12-05-2023 End: 12-05-2023 Patient encounter procedure 12/05/2023 10:00 AM EDT Office Visit [facility] [address] [facility] [address] [place] [phone] Marie Alston MD [address] [place] [address] [address] [place] [address] [facility] Start: 12-04-2023 End: 03-04-2024 25-hydroxyvitamin D3 [Mass/volume] in Serum or Plasma VITAMIN D 25 HYDROXY Lab Routine Age-related osteoporosis without current pathological fracture Expected: 12/04/2023, Expires: 03/04/2024 [facility] Work Phone: Comment on above: Expected: 12/04/2023, Expires: Start: 12-04-2023 End: 03-04-2024 Hemoglobin A1c in Blood HGB A1C Lab Routine Screening for diabetes mellitus Other disorders of glucose transport (HCC) Expected: 12/04/2023, Expires: 03/04/2024 [facility] Work Phone: Comment on above: Expected: 12/04/2023, Expires: Start: 12-04-2023 End: 12-04-2023 ambulatory 12/04/2023 1:45 PM EDT Results Only [facility] Draw Station [address] [facility] [place] [address] [place] [facility] Draw Station Start: 12-03-2023 Mammography [facility] Start: 12-03-2023 Screening for malignant neoplasm of breast [facility] Start: 11-30-2023 End: 11-30-2023 Patient encounter procedure 11/30/2023 10:00 AM EDT Procedure Visit [facility] [address] [place] [phone] [facility] Start: 11-22-2023 End: 11-21-2024 Creatinine [Mass/volume] in Serum or Plasma Creatinine, Serum Lab Routine Pelvic mass in female Abnormal finding on radiology exam Expected: 11/22/2023 (Approximate), Expires: 11/21/2024 [facility] Work Phone: Comment on above: Expected: 11/22/2023 (Approximate), Expi res: 11/21/2024 Start: 11-22-2023 End: 11-21-2024 CT Pelvis W contrast IV CT pelvis w IV contrast Imaging Routine Pelvic mass in female Abnormal finding on radiology exam Expected: 11/22/2023, Expires: 11/21/2024 [facility] Comment on above: Expected: 11/22/2023, Expires: Start: 11-20-2023 End: 11-20-2023 Patient encounter procedure 11/20/2023 10:30 AM EDT Office Visit Pulmonary Medicine [address] [place] [phone] Mariana Russell MD [address] [place] [address] 8 MTH F/U Pulmonary Medicine Comment on above: 8 MTH F/U Start: 11-18-2023 ANNUAL PCP TEAM CHRONIC DISEASE VISIT ANNUAL PCP TEAM CHRONIC DISEASE VISIT [facility] Start: 11-12-2023 Diabetes mellitus screening Diabetes Screening [facility] Start: 10-16-2023 End: 10-16-2023 Nursing evaluation of patient and report 10/16/2023 8:15 AM EDT Nurse Visit Cardiology [address] [place] [phone] Wstr, Nurse Card Admin [facility] [address] [place] [id number] Age-related osteoporosis without current pathological fracture [M81.0] Cardiology Comment on above: Age-related osteoporosis without current pathological fracture [M81.0] Start: 10-16-2023 End: 10-16-2023 Patient encounter procedure [facility] Comment on above: Age-related osteoporosis without current pathological fracture [M81.0] Start: 09-17-2023 ANNUAL PCP TEAM CHRONIC DISEASE VISIT ANNUAL PCP TEAM CHRONIC DISEASE VISIT [facility] Start: 09-17-2023 SHINGRIX VACCINE (2 of 3) SHINGRIX VACCINE (2 of 3) [facility] Comment on above: Postponed from 06/25/2012 (Declined at t his time) Start: 09-08-2023 LIPID SCREEN LIPID SCREEN [facility] Start: 09-05-2023 End: 12-05-2023 Calcium.ionized [Moles/volume] in Blood CALCIUM IONIZED BLOOD Lab Routine Multinodular thyroid Hypercalcemia Expected: 09/05/2023, Expires: 12/05/2023 [facility] Work Phone: Comment on above: Expected: 09/05/2023, Expires: Start: 09-05-2023 End: 12-05-2023 Parathyrin.intact [Mass/volume] in Serum or Plasma PTH INTACT BLD Lab Routine Multinodular thyroid Hypercalcemia Expected: 09/05/2023, Expires: 12/05/2023 [facility] Work Phone: Comment on above: Expected: 09/05/2023, Expires: Start: 09-05-2023 End: 12-05-2023 Thyrotropin [Units/volume] in Serum or Plasma TSH BLD Lab Routine Multinodular thyroid Expected: 09/05/2023, Expires: 12/05/2023 [facility] Work Phone: Comment on above: Expected: 09/05/2023, Expires: Start: 09-05-2023 End: 12-05-2023 Thyroxine (T4) free [Mass/volume] in Serum or Plasma T4 FREE/FREE THYROX Lab Routine Multinodular thyroid Expected: 09/05/2023, Expires: 12/05/2023 [facility] Work Phone: Comment on above: Expected: 09/05/2023, Expires: Start: 09-05-2023 End: 12-05-2023 Triiodothyronine (T3) [Mass/volume] in Serum or Plasma T3 BLD Lab Routine Multinodular thyroid Expected: 09/05/2023, Expires: 12/05/2023 [facility] Work Phone: Comment on above: Expected: 09/05/2023, Expires: Start: 07-31-2023 Covid-19 Vaccine () Covid-19 Vaccine () [facility] Start: 06-05-2023 Advance Directive Discussion Advance Directive Discussion [facility] Start: 06-05-2023 Behavioral Health Screening Behavioral Health Screening [facility] Start: 05-09-2023 End: 08-08-2023 [id number] [Mass/volume] in Serum or Plasma B2 MICROGLOBULIN B Lab Routine Monoclonal gammopathy Expected: 05/09/2023, Expires: 08/08/2023 [facility] Work Phone: Comment on above: Expected: 05/09/2023, Expires: Start: 05-09-2023 End: 08-08-2023 CBC W Auto Differential panel - Blood CBC + DIFF Lab STAT Monoclonal gammopathy Expected: 05/09/2023, Expires: 08/08/2023 [facility] Work Phone: Comment on above: Expected: 05/09/2023, Expires: 4 Start: 05-09-2023 End: 08-08-2023 Comprehensive metabolic 2000 panel - Serum or Plasma COMP METABOLIC PANEL Lab STAT Monoclonal gammopathy Expected: 05/09/2023, Expires: 08/08/2023 [facility] Work Phone: Comment on above: Expected: 05/09/2023, Expires: 4 Start: 05-09-2023 End: 08-08-2023 IMMUNOGLOBULINS YASMIN IMMUNOGLOBULINS YASMIN Lab Routine Monoclonal gammopathy Expected: 05/09/2023, Expires: 08/08/2023 [facility] Work Phone: Comment on above: Expected: 05/09/2023, Expires: Start: 05-09-2023 End: 08-08-2023 KAPPA/RAMOS,FREE,SER KAPPA/RAMOS,FREE,SER Lab Routine Monoclonal gammopathy Expected: 05/09/2023, Expires: 08/08/2023 [facility] Work Phone: Comment on above: Expected: 05/09/2023, Expires: 4 Start: 05-09-2023 End: 08-08-2023 Lactate dehydrogenase [Enzymatic activity/volume] in Serum or Plasma LD LACTATE DEHYDRO Lab Routine Monoclonal gammopathy Expected: 05/09/2023, Expires: 08/08/2023 [facility] Work Phone: Comment on above: Expected: 05/09/2023, Expires: 4 Start: 05-09-2023 End: 08-08-2023 MONOCLONAL PROT UR W/INTERP MONOCLONAL PROT UR W/INTERP Lab Routine Monoclonal gammopathy Expected: 05/09/2023, Expires: 08/08/2023 [facility] Work Phone: Comment on above: Expected: 05/09/2023, Expires: Start: 05-09-2023 End: 08-08-2023 MONOCLONAL PROTEIN, SERUM (BLOOD) MONOCLONAL PROTEIN, SERUM (BLOOD) Lab Routine Monoclonal gammopathy Expected: 05/09/2023, Expires: 08/08/2023 [facility] Work Phone: Comment on above: Expected: 05/09/2023, Expires: Start: 05-09-2023 End: 08-08-2023 PROTEIN ELECT RND UR W/INTERP PROTEIN ELECT RND UR W/INTERP Lab Routine Monoclonal gammopathy Expected: 05/09/2023, Expires: 08/08/2023 [facility] Work Phone: Comment on above: Expected: 05/09/2023, Expires: 4 Start: 05-09-2023 End: 08-08-2023 PROTEIN ELECTROPHORESIS SERUM W/INTERP PROTEIN ELECTROPHORESIS SERUM W/INTERP Lab Routine Monoclonal gammopathy Expected: 05/09/2023, Expires: 08/08/2023 [facility] Work Phone: Comment on above: Expected: 05/09/2023, Expires: 4 Start: 03-18-2023 ANNUAL PCP TEAM CHRONIC DISEASE VISIT ANNUAL PCP TEAM CHRONIC DISEASE VISIT [facility] Start: 02-03-2023 Covid-19 Vaccine () Covid-19 Vaccine () [facility] Start: 02-03-2023 Influenza vaccination [facility] Start: 01-17-2023 ANNUAL PCP TEAM CHRONIC DISEASE VISIT ANNUAL PCP TEAM CHRONIC DISEASE VISIT [facility] Start: 12-17-2022 ANNUAL PCP TEAM CHRONIC DISEASE VISIT ANNUAL PCP TEAM CHRONIC DISEASE VISIT [facility] Start: 11-30-2022 Mammography MAMMOGRAM [facility] Start: 10-12-2022 ANNUAL PCP TEAM CHRONIC DISEASE VISIT ANNUAL PCP TEAM CHRONIC DISEASE VISIT [facility] Start: 09-19-2022 End: 11-19-2022 Hemoglobin A1c in Blood HGB A1C Lab Routine Hyperglycemia Expected: 09/19/2022, Expires: 11/19/2022 [facility] Work Phone: Comment on above: Expected: 09/19/2022, Expires: 3 Start: 09-16-2022 Adult depression screening assessment DEPRESSION SCREENING [facility] Start: 09-16-2022 ANNUAL PCP TEAM CHRONIC DISEASE VISIT ANNUAL PCP TEAM CHRONIC DISEASE VISIT [facility] Start: 09-16-2022 End: 11-16-2022 Cobalamin (Vitamin B12) [Mass/volume] in Serum or Plasma [facility] Work Phone: Comment on above: Expected: 09/16/2022, Expires: 3 Start: 09-16-2022 End: 11-16-2022 Comprehensive metabolic 2000 panel - Serum or Plasma [facility] Work Phone: Comment on above: Expected: 09/16/2022, Expires: 3 Start: 09-16-2022 End: 11-16-2022 Folate [Mass/volume] in Serum or Plasma [facility] Work Phone: Comment on above: Expected: 09/16/2022, Expires: 3 Start: 09-16-2022 End: 11-16-2022 Thyrotropin [Units/volume] in Serum or Plasma [facility] Work Phone: Comment on above: Expected: 09/16/2022, Expires: 3 Start: 09-07-2022 ANNUAL PCP TEAM CHRONIC DISEASE VISIT ANNUAL PCP TEAM CHRONIC DISEASE VISIT [facility] Start: 07-26-2022 COVID-19 VACCINE (6 - Moderna series) COVID-19 VACCINE (6 - Moderna series) [facility] Start: 05-05-2022 End: 07-05-2022 [id number] [Mass/volume] in Serum or Plasma B2 MICROGLOBULIN B Lab Routine Monoclonal gammopathy Expected: 05/05/2022, Expires: 07/05/2022 [facility] Work Phone: Comment on above: Expected: 05/05/2022, Expires: 3 Start: 05-05-2022 End: 07-05-2022 CBC W Auto Differential panel - Blood CBC + DIFF Lab STAT Monoclonal gammopathy Expected: 05/05/2022, Expires: 07/05/2022 [facility] Work Phone: Comment on above: Expected: 05/05/2022, Expires: 3 Start: 05-05-2022 End: 07-05-2022 Comprehensive metabolic 2000 panel - Serum or Plasma COMP METABOLIC PANEL Lab Routine Monoclonal gammopathy Expected: 05/05/2022, Expires: 07/05/2022 [facility] Work Phone: Comment on above: Expected: 05/05/2022, Expires: 3 Start: 05-05-2022 End: 07-05-2022 KAPPA/RAMOS,FREE,SER KAPPA/RAMOS,FREE,SER Lab Routine Monoclonal gammopathy Expected: 05/05/2022, Expires: 07/05/2022 [facility] Work Phone: Comment on above: Expected: 05/05/2022, Expires: 3 Start: 05-05-2022 End: 07-05-2022 MONOCLONAL PROT UR W/INTERP MONOCLONAL PROT UR W/INTERP Lab Routine Monoclonal gammopathy Expected: 05/05/2022, Expires: 07/05/2022 [facility] Work Phone: Comment on above: Expected: 05/05/2022, Expires: 3 Start: 05-05-2022 End: 07-05-2022 MONOCLONAL PROTEIN, SERUM (BLOOD) MONOCLONAL PROTEIN, SERUM (BLOOD) Lab Routine Monoclonal gammopathy Expected: 05/05/2022, Expires: 07/05/2022 [facility] Work Phone: Comment on above: Expected: 05/05/2022, Expires: 3 Start: 05-05-2022 End: 07-05-2022 PROTEIN ELECT RND UR W/INTERP PROTEIN ELECT RND UR W/INTERP Lab Routine Monoclonal gammopathy Expected: 05/05/2022, Expires: 07/05/2022 [facility] Work Phone: Comment on above: Expected: 05/05/2022, Expires: 3 Start: 05-05-2022 End: 07-05-2022 PROTEIN ELECTROPHORESIS SERUM W/INTERP PROTEIN ELECTROPHORESIS SERUM W/INTERP Lab Routine Monoclonal gammopathy Expected: 05/05/2022, Expires: 07/05/2022 [facility] Work Phone: Comment on above: Expected: 05/05/2022, Expires: 3 Start: 03-18-2022 ANNUAL PCP TEAM CHRONIC DISEASE VISIT ANNUAL PCP TEAM CHRONIC DISEASE VISIT [facility] Start: 02-14-2022 COVID-19 VACCINE (5 - Booster for Moderna series) COVID-19 VACCINE (5 - Booster for Moderna series) [facility] Start: 02-03-2022 Influenza vaccination INFLUENZA (#1) [facility] Start: 01-17-2022 End: 03-19-2022 Urinalysis complete panel - Urine [facility] Work Phone: Comment on above: Expected: 01/17/2022, Expires: 2 Start: 12-17-2021 End: 02-16-2022 Calcium.ionized [Moles/volume] in Blood CALCIUM IONIZED BLOOD Lab Routine Hypercalcemia Expected: 12/17/2021, Expires: 02/16/2022 [facility] Work Phone: Comment on above: Expected: 12/17/2021, Expires: 2 Start: 12-17-2021 End: 12-17-2022 CBC W Auto Differential panel - Blood CBC + DIFF Lab Routine Weight loss Expected: 12/17/2021, Expires: 12/17/2022 [facility] Work Phone: Comment on above: Expected: 12/17/2021, Expires: 3 Start: 12-17-2021 End: 12-17-2022 Comprehensive metabolic 2000 panel - Serum or Plasma COMP METABOLIC PANEL Lab Routine Weight loss Expected: 12/17/2021, Expires: 12/17/2022 [facility] Work Phone: Comment on above: Expected: 12/17/2021, Expires: 3 Start: 12-17-2021 End: 12-17-2022 Lipid 1996 panel - Serum or Plasma LIPID PANEL BASIC Lab Routine Essential hypertension Expected: 12/17/2021, Expires: 12/17/2022 [facility] Work Phone: Comment on above: Expected: 12/17/2021, Expires: 3 Start: 12-17-2021 End: 02-16-2022 Thyrotropin [Units/volume] in Serum or Plasma TSH BLD Lab Routine Weight loss Expected: 12/17/2021, Expires: 02/16/2022 [facility] Work Phone: Comment on above: Expected: 12/17/2021, Expires: 2 Start: 11-12-2021 Mammography MAMMOGRAM [facility] Start: 10-19-2021 End: 12-19-2021 Basic metabolic 2000 panel - Serum or Plasma BASIC METABOLIC PNL Lab Routine HOCM (hypertrophic obstructive cardiomyopathy) (HCC) Expected: 10/19/2021, Expires: 12/19/2021 [facility] Work Phone: Comment on above: Expected: 10/19/2021, Expires: 2 Start: 10-19-2021 End: 12-19-2021 Natriuretic peptide.B prohormone N-Terminal [Mass/volume] in Serum or Plasma NT PRO BNP Lab Routine HOCM (hypertrophic obstructive cardiomyopathy) (HCC) Dyspnea on exertion Expected: 10/19/2021, Expires: 12/19/2021 [facility] Work Phone: Comment on above: Expected: 10/19/2021, Expires: 2 Start: 10-12-2021 End: 12-12-2021 Comprehensive metabolic 2000 panel - Serum or Plasma [facility] Work Phone: Comment on above: Expected: 10/12/2021, Expires: 2 Start: 10-12-2021 End: 12-12-2021 Magnesium [Mass/volume] in Serum or Plasma [facility] Work Phone: Comment on above: Expected: 10/12/2021, Expires: 2 Start: 10-12-2021 End: 12-12-2021 Thyrotropin [Units/volume] in Serum or Plasma [facility] Work Phone: Comment on above: Expected: 10/12/2021, Expires: 2 Start: 08-06-2021 COVID-19 VACCINE (4 - Booster for Moderna series) COVID-19 VACCINE (4 - Booster for Moderna series) [facility] Start: 06-05-2021 ADVANCE DIRECTIVE DISCUSSION ADVANCE DIRECTIVE DISCUSSION [facility] Start: 02-27-2019 Adult depression screening assessment DEPRESSION SCREENING [facility] Start: 01-24-2017 End: 01-24-2017 Appointment Appointment [facility] Work Phone: Start: 07-28-2016 DTaP/Tdap/Td Vaccines (3 - Td or Tdap) DTaP/Tdap/Td Vaccines (3 - Td or Tdap) [facility] Start: 04-05-2014 Medicare Annual Wellness Visit Medicare Annual Wellness Visit [facility] Start: 06-25-2012 SHINGRIX VACCINE (2 of 3) SHINGRIX VACCINE (2 of 3) [facility] Start: 06-25-2012 Zoster Vaccines (2 of 3) Zoster Vaccines (2 of 3) [facility] Start: 2009 RSV Vaccine (1 - 1-dose 60+ series) RSV Vaccine (1 - 1-dose 60+ series) [facility] Start: 1994 COLOGUARD (FIT-DNA) COLOGUARD (FIT-DNA) [facility] Start: [address] COLONOGRAPHY [facility] Start: 1994 FECAL OCCULT BLOOD FECAL OCCULT BLOOD [facility] Start: 1994 Screening for malignant neoplasm of colon [facility] Start: 1994 SIGMOIDOSCOPY SIGMOIDOSCOPY [facility] Start: 1979 Zoledronic acid therapy Alpha-1 Antitrypsin Deficiency Screening [facility] Start: 1967 BP CONTROLLED (<130/80) BP CONTROLLED (<130/80) [facility] Start: 1967 Hepatitis C screening Hepatitis C Screening [facility] Start: 1961 Depression Screening Depression Screening [facility] Start: 1949 Lipid panel Lipid Panel [facility] Start: 1949 Medicare Annual Wellness (AWV) Medicare Annual Wellness (AWV) [facility] Start: 1949 Screening for malignant neoplasm of colon [facility] Start: 1949 Screening for osteoporosis Bone Density Scan [facility] Start: 1949 Thyroid Nodule Ultrasound Thyroid Nodule Ultrasound [facility] Anterior colporraphy rpr cystocele w/cysto ANTERIOR COLPORRHAPHY REPAIR CYSTOCELE (ANTERIOR REPAIR) Incomplete uterovaginal prolapse Cystocele, midline Rectocele [facility] Bacteria identified in Urine by Culture Urine culture Microbiology Routine Abnormal urine finding Ordered: 11/28/2023 [facility] Work Phone: Comment on above: Ordered: 11/28/2023 Colpopexy vaginal intraperitoneal approach COLPOPEXY VAGINAL INTRAPERITONEAL APPROACH (UTEROSCARAL, LEVATOR MYORRHAPHY) Incomplete uterovaginal prolapse Cystocele, midline Rectocele [facility] End: 02-16-2023 Ct abdomen & pelvis w/o contrast material CT ABD/PEL WO IVCON Radiology Routine Weight loss 1 Occurrences starting 01/17/2022 until 02/16/2023 [facility] Work Phone: Comment on above: 1 Occurrences starting 01/17/2022 until 02/16/2023 End: 01-21-2022 Ct abdomen & pelvis w/o contrast material [facility] Work Phone: Comment on above: 1 Occurrences starting 01/21/2022 until 01/21/2022 End: 02-16-2023 Ct thorax w/o contrast material CT CHEST WO IVCON Radiology Routine Weight loss 1 Occurrences starting 01/17/2022 until 02/16/2023 [facility] Work Phone: Comment on above: 1 Occurrences starting 01/17/2022 until 02/16/2023 End: 01-21-2022 Ct thorax w/o contrast material [facility] Work Phone: Comment on above: 1 Occurrences starting 01/21/2022 until 01/21/2022 End: 10-09-2022 Ct upper extremity w/o contrast material CT SHOULDER WO IVCON LT Radiology Routine Other injury of unspecified muscle, fascia and tendon at shoulder and upper arm level, unspecified arm, initial encounter 1 Occurrences starting 09/09/2021 until 10/09/2022 [facility] Work Phone: Comment on above: 1 Occurrences starting 09/09/2021 until 10/09/2022 Cystourethroscopy CYSTOSCOPY Inc omplete uterovaginal prolapse Cystocele, midline Rectocele [facility] End: 10-16-2023 DXA-AXIAL SKELETON DXA-AXIAL SKELETON Radiology Routine Osteoporosis, unspecified Vitamin D deficiency 1 Occurrences starting 09/16/2022 until 10/16/2023 [facility] Work Phone: Comment on above: 1 Occurrences starting 09/16/2022 until 10/16/2023 ECG 12 lead ECG 12 lead CV E CG Routine 12/19/2023 11:50 AM EDT [facility] Work Phone: End: 05-09-2023 ECG COMPLETE ECG COMPLETE ECG Routine HOCM (hypertrophic obstructive cardiomyopathy) (HCC) 1 Occurrences starting 05/09/2022 until 05/09/2023 [facility] Work Phone: Comment on above: 1 Occurrences starting 05/09/2022 until 05/09/2023 ECG COMPLETE ECG COMPLETE ECG Routine Stable angina pectoris (HCC) 09/04/2023 10:56 AM EDT [facility] Work Phone: End: 10-12-2022 Echocardiography ECHO Cardiology Routine Swelling Obstructive cardiomyopathy (HCC) 1 Occurrences starting 10/12/2021 until 10/12/2022 [facility] Work Phone: Comment on above: 1 Occurrences starting 10/12/2021 until 10/12/2022 Hemoglobin.gastrojericho cullenin al.lower [Presence] in Stool by Immunoassay IMMUNOCHEMICAL FECAL OCCULT BLOOD TEST Lab Routine Dark stools Ordered: 10/04/2024 [facility] Comment on above: Ordered: 10/04/2024 Hemoglobin.gastroint estin al.lower [Presence] in Stool by Immunoassay IMMUNOCHEMICAL FECAL OCCULT BLOOD TEST Lab Routine Dark stools Ordered: 10/08/2024 [facility] Work Phone: Comment on above: Ordered: 10/08/2024 LUNG DIFFUSION CAPAC ITY (DLCO) LUNG DIFFUSION CAPACITY (DLCO) PFT Routine Asthma-COPD overlap syndrome (HCC) Restrictive 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 03/27/2024 10:54 AM EDT [facility] Work Phone: LUNG VOLUMES LUNG VOLUMES PFT Routine Asthma-COPD overlap syndrome (HCC) Restrictive 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 03/27/2024 10:54 AM EDT [facility] Work Phone: End: 10-16-2022 ADRIANO SCREENING W MARY ADRIANO SCREENING W MARY Radiology Routine Screening breast examination Encounter for screening mammogram for malignant neoplasm of breast 1 Occurrences starting 09/16/2021 until 10/16/2022 [facility] Work Phone: Comment on above: 1 Occurrences starting 09/16/2021 until 10/16/2022 End: 10-03-2024 NM Heart Perfusion W stress and W radionuclide IV NM CARDIAC PERF STRESS/PHARM Radiology Routine Chest pain, unspecified type 1 Occurrences starting 09/04/2023 until 10/03/2024 [facility] Work Phone: Comment on above: 1 Occurrences starting 09/04/2023 until 10/03/2024 OXIMETRY - NOCTURNAL OXIMETRY - NOCTURNAL Procedures Routine Asthma-COPD overlap syndrome (HCC) Restrictive 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 Ordered: 03/27/2024 [facility] Work Phone: Comment on above: Ordered: 03/27/2024 OXIMETRY - NOCTURNAL OXIMETRY - NOCTURNAL Procedures Routine Nocturnal hypoxia Ordered: 05/07/2024 [facility] Work Phone: Comment on above: Ordered: 05/07/2024 Patient Education Dizziness Sanjeev ting Causes ED Epistaxis (Adult) [facility] Work Phone: Patient referral [facility] Work Phone: End: 08-03-2025 PET+CT Whole body Bone W [id number] IV NM PET/CT WHOLE BODY INITIAL Radiology Routine Monoclonal gammopathy 1 Occurrences starting 07/04/2024 until 08/03/2025 [facility] Work Phone: Comment on above: 1 Occurrences starting 07/04/2024 until 08/03/2025 Post colporrhaphy rectocele w/wo perineorrhaphy POSTERIOR COLPORRHAPHY REPAIR RECTOCELE Incomplete uterovaginal prolapse Cystocele, midline Rectocele [facility] End: 05-02-2022 Radiologic examination osseous survey compl [facility] Work Phone: Comment on above: 1 Occurrences starting 05/02/2022 until 05/02/2022 End: 06-11-2023 Radiologic examination osseous survey compl XR BONE SURVEY ROUTINE Radiology Routine Monoclonal gammopathy 1 Occurrences starting 05/12/2022 until 06/11/2023 [facility] Work Phone: Comment on above: 1 Occurrences starting 05/12/2022 until 06/11/2023 Radiologic examinati on osseous survey compl XR BONE SURVEY ROUTINE Radiology Routine Monoclonal gammopathy 05/09/2023 9:19 AM EST [facility] Work Phone: SIX MINUTE WALK SIX MINUTE WALK PFT Routine Asthma-COPD overlap syndrome (HCC) Restrictive 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 03/27/2024 11:41 AM EDT [facility] Work Phone: Sling operation stre ss incontinence SLING OPERATION FOR STRESS INCONTINENCE Incomplete uterovaginal prolapse Cystocele, midline Rectocele [facility] SPIROMETRY BASELINE ONLY SPIROME TRY BASELINE ONLY PFT Routine Asthma-COPD overlap syndrome (HCC) Restrictive 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 03/27/2024 10:54 AM EDT [facility] Work Phone: SURGICAL PATHOLOGY [facility] Work Phone: Comment on above: Release Upon Ordering for 1 Occurrences starting 03/21/2024, 1 completed Tissue exam Tissue exam Path ology and Cytology Timed Intra-abdominal and pelvic swelling, mass and lump, unspecified site Abnormal findings on diagnostic imaging of other specified body structures Incomplete uterovaginal prolapse Cystocele, midline Rectocele Release Upon Ordering for 1 [facility]urrences [facility]2023 [facility] Work Phone: Comment on above: Release Upon Ordering for 1 Occurrences starting 12/19/2023 Urinalysis complete panel - Urine Complete Urinalysis Lab Routine Abnormal urine finding Ordered: 11/28/2023 [facility] Comment on above: Ordered: 11/28/2023 End: 02-11-2025 US Carotid arteries - bilateral US CAROTID ARTERIES [facility] Vascular Lab Routine Bilateral carotid artery stenosis 1 Occurrences starting 02/12/2024 until 02/11/2025 [facility] Comment on above: 1 Occurrences starting 02/12/2024 until 02/11/2025 End: 09-17-2023 US CAROTID ARTERIES [facility] US CAROTID ARTERIES [facility] Vascular Lab Routine Bilateral carotid artery stenosis 1 Occurrences starting 09/16/2022 until 09/17/2023 [facility] Work Phone: Comment on above: 1 Occurrences starting 09/16/2022 until 09/17/2023 Vitamin D, 25-hydrox y measurement [facility] End: 05-31-2025 XR Shoulder - right 3 Views XR SHOULDER GENERAL 3V OR MORE AP/TRUE AP/OTHER RIGHT Radiology Routine Acute pain of right shoulder 1 Occurrences starting 05/01/2024 until 05/31/2025 [facility] Work Phone: Comment on above: 1 Occurrences starting 05/01/2024 until 05/31/2025 XR Shoulder - right 3 Views XR SHOULDER GENERAL 3V OR MORE AP/TRUE AP/OTHER RIGHT Radiology Routine Acute pain of right shoulder 05/01/2024 11:27 AM EST [facility] Immunizations Immunization Date Immunization Notes Care Provider Brianna jaimes 08-07-2024 zoster vaccine recombinant Markus Rascon MD Work Phone: [facility] 04-03-2024 COVID-19 vaccine, ag e 12+ yr (MODERNA) Shanita ESTRADAC Work Phone: [facility] 02-07-2024 influenza, high dose seasonal, preservative-free Markus Rascon MD Work Phone: [facility] 02-07-2024 influenza virus vaccine, unspecified formulation Markus Rascon MD Work Phone: [facility] 04-13-2023 respiratory syncytia l virus (RSV) vaccine, adjuvanted (AREXVY) Echocardiogram Ws Work Phone: [facility] 03-03-2023 influenza (HD-IIV4) vaccine, age 65+ yr, high dose, quadrivalent, PF (FLUZONE HIGH-DOSE) Immunization Maricruz Work Phone: [facility] Work Phone: 03-03-2023 influenza virus vaccine, unspecified formulation Marie Alston MD Work Phone: [facility] 03-18-2022 influenza, high-dose , quadrivalent vaccine (FLUZONE HIGH DOSE QUADRIVALENT) Markus Rascon MD Work Phone: [facility] 03-18-2022 influenza virus vaccine, unspecified formulation Clary Nolasco MD Work Phone: [facility] 12-20-2021 COVID-19 vaccine, booster dose (MODERNA) Markus Rascon MD Work Phone: [facility] 02-17-2021 influenza, high-dose , quadrivalent vaccine (FLUZONE HIGH DOSE QUADRIVALENT) Markus Rascon MD Work Phone: [facility] Work Phone: 08-26-2020 COVID-19 vaccine, fu ll dose (MODERNA) Markus Rascon MD Work Phone: [facility] Work Phone: 07-29-2020 COVID-19 vaccine, fu ll dose (MODERNA) Markus Rascon MD Work Phone: [facility] Work Phone: 03-25-2020 influenza, high-dose , quadrivalent vaccine (FLUZONE HIGH DOSE QUADRIVALENT) Markus Rascon MD Work Phone: [facility] 02-14-2019 influenza, high dose seasonal, preservative-free Markus Rascon MD Work Phone: [facility] 08-09-2018 pneumococcal polysaccharide vaccine, 23 valent Markus Rascon MD Work Phone: [facility] 03-03-2018 influenza, high dose seasonal, preservative-free Markus Rascon MD Work Phone: [facility] 02-21-2017 influenza, high dose seasonal, preservative-free Markus Rascon MD Work Phone: [facility] Work Phone: 02-26-2016 influenza, high dose seasonal, preservative-free Markus Rascon MD Work Phone: [facility] 03-25-2015 influenza, injectabl e, quadrivalent, contains preservative Markus Rascon MD Work Phone: [facility] Work Phone: 06-23-2014 pneumococcal conjuga te vaccine, 13 valent Markus Rascon MD Work Phone: [facility] Work Phone: 03-19-2014 influenza, seasonal, injectable Markus Rascon MD Work Phone: [facility] 03-19-2013 influenza virus vaccine, unspecified formulation Markus Rascon MD Work Phone: [facility] 04-30-2012 zoster vaccine, live Markus Rascon MD Work Phone: [facility] 04-14-2012 influenza virus vaccine, unspecified formulation Markus Rascon MD Work Phone: [facility] 04-11-2011 influenza virus vaccine, unspecified formulation Markus Rascon MD Work Phone: [facility] Work Phone: 04-09-2010 influenza virus vaccine, unspecified formulation Markus Rascon MD Work Phone: [facility] 03-23-2009 influenza virus vaccine, unspecified formulation Markus Rascon MD Work Phone: [facility] Work Phone: 04-25-2008 influenza virus vaccine, unspecified formulation Markus Rascon MD Work Phone: [facility] Work Phone: 04-20-2007 influenza virus vaccine, unspecified formulation Markus Rascon MD Work Phone: [facility] Work Phone: 07-28-2006 tetanus toxoid, reduced diphtheria toxoid, and acellular pertussis vaccine, adsorbed Markus Rascon MD Work Phone: [facility] Work Phone: 05-17-2006 influenza virus vaccine, unspecified formulation Markus Rascon MD Work Phone: [facility] Work Phone: 04-22-2005 influenza virus vaccine, unspecified formulation Markus Rascon MD Work Phone: [facility] 09-13-2000 pneumococcal polysaccharide vaccine, 23 valent Markus Rascon MD Work Phone: [facility] Work Phone: 10-12-1992 diphtheria and tetan us toxoids, adsorbed for pediatric use Markus Rascon MD Work Phone: [facility] Work Phone: Payers Date Payer Category Payer Self-pay [id number] 2023 Unknown [id number] [address] [facility] SUPERMED ACCESS [id number] 2014 Medicare MEDICARE MEDICAR E A AND B [id number] 2014-Present [phone] [place] [address] Medicare [id number] 2014 Medicare [id number] 2014 Medicare [id number] 1990 Private Health Insurance [id number] 1990 Unknown [facility] [id number] 1990-Present [address] [place] [address] Indemnity [id number] 1990 Unknown [id number] 1990 Unknown [id number] Unknown [id number] Unknown [id number] Unknown [id number] Unknown [id number] Unknown [id number] Unknown [id number] Unknown [id number] Social History Date Type Detail Facility Start: 01-17-2022 End: 04-16-2024 Tobacco smoking status NHIS Never smoked tobacco [facility] Work Phone: Start: 07-02-2021 End: 10-04-2024 Alcohol intake Current drinker of alcohol (finding) [facility] Start: 07-02-2021 End: 03-05-2024 Alcohol intake [facility] Start: 04-29-2020 End: 09-13-2022 History SDOH Alcohol Frequency 2 [facility] Start: 04-29-2020 End: 09-13-2022 History SDOH Alcohol Std Drinks 1 [facility] Start: 11-19-2013 History SDOH Alcohol Comment Occasionally [facility] Start: 12-02-2019 History SDOH Financial 5 [facility] Start: 12-02-2019 Education 21 [facility] Start: 1950 Sex Assigned At Female C [facility] Start: 10-24-2020 End: 05-02-2022 Exposure to SARS-CoV-2 (event) Not sure [facility] Start: 11-19-2020 End: 10-18-2022 Tobacco smoking status AKIS Unknown if ever smoked [facility] Start: 04-09-2021 Occasional [facility] Start: 04-09-2021 None [facility] Start: 04-09-2021 Homeless [facility] Start: 01-17-2022 End: 04-16-2024 Tobacco use and exposure Smokeless tobacco non-user [facility] Start: 01-17-2022 Tobacco Comment Father smoked in childhood home. Spouse does not smoke. [facility] Start: 01-24-2022 End: 02-03-2022 Exposure to SARS-CoV-2 (event) Unable to assess [facility] Start: 03-15-2022 End: 09-13-2022 History SDOH Social Connections Phone 98 [facility] Start: 09-13-2022 History SDOH Social Connections Living 3 [facility] Start: 09-12-2022 End: 03-05-2024 Social connection and isolation panel [facility] In a typical week, h ow many times do you talk on the telephone with family, friends, or neighbors? Patient refused [facility] Are you now , , , , never or living with a partner? [facility] How often to you hav e a drink containing alcohol? Monthly or less [facility] How many standard drinks containing alcohol do you have on a typical day? 1 or 2 [facility] How often do you hav e 6 or more drinks on 1 occasion? Never [facility] (I/We) worried malka er (my/our) food would run out before (I/we) got money to buy more. Never true [facility] In the past 12 month s, was there a time when you were not able to pay the mortgage or rent on time? No [facility] Start: 10-06-2018 Gender identity Identifies as female gender (finding) [facility] Start: 10-06-2018 Sexual orientation Heterosexual (fiordaliza smith) [facility] Start: 11-20-2023 Alcohol Comment social [facility] Start: 1950 Sex assigned at Not on file S [facility] Start: 12-05-2023 Alcohol Comment Occasional glass of wine [facility] Do you feel stress - tense, restless, nervous, or anxious, or unable to sleep at night because your mind is troubled all the time - these days [OSQ] Only a little [facility] Start: 01-03-2022 Sex Female (finding) [facility] History of tobacco use Passive smoker [facility] [employer] Procedure Code Equipment Code Equipment Origin al Text Equipment Identifier Dates Sling Obtryx Ii Halo - [id number] - [id number] Start: 12-19-2023 Functional Status Date Assessment Result Facility 01-09-2015 Are you deaf, or do you have serious difficulty hearing No 01/09/2015 1:39 PM EDT Carlene Daigle APRN.MARIBELL No [facility] 01-09-2015 Are you blind, or do you have serious difficulty seeing, even when wearing glasses No 01/09/2015 1:39 PM EDT Carlene Daigle, PEARL.MARIBELL No [facility] 01-09-2015 Do you have serious difficulty walking or climbing stairs No 01/09/2015 1:39 PM EDT Carlene Daigle APRN.MARIBELL No [facility] 01-09-2015 Do you have difficul ty dressing or bathing No 01/09/2015 1:39 PM EDT Carlene Daigle, PEARL.LEATHER STITCHER [facility] 01-09-2015 Because of a physica l, mental, or emotional condition, do you have difficulty doing errands alone such as visiting a physician's office or shopping No 01/09/2015 1:39 PM EDT Carlene Daigle APRN.MARIBELL No [facility] Mental Status Date Assessment Result Facility 09-03-2021 Cognitive function Awake;Alert;A ppropriate; Follows Commands [facility] Work Phone: 01-09-2015 Because of a physica l, mental, or emotional condition, do you have serious difficulty concentrating, remembering, or making decisions No 01/09/2015 1:39 PM EDT Carlene Daigle APRN.LEATHER STITCHER No [facility] Clinical Notes 09-24-2020 to 12-02-2024 Telephone Encounter - Hernandez Toro LPN - 12/02/2024 9:45 AM EDTTelephone Encounter - Hernandez Toro LPN - 12/02/2024 9:45 AM Markus Timmons MD - 10/04/2024 12:40 PM EDT Note Date & Type Note Facility 12-02-2024 Telephone encounter Note The patient has been identified by name and date of : Yes Caregiver verified no other encounters exist for this prescription request: Yes Caregiver confirmed with patient/requestor that no other refills are due, in the near future, with this provider at this time: Yes The last office visit in the department: 10/04/2024 Does the patient have a future office visit with this provider/department: Yes 01/13/2025 Requested Prescriptions Pending Prescriptions Disp Refills dilTIAZem CD (CARDIZEM CD, CARTIA XT) 240 mg 24 hr capsule 90 capsule 1 Sig: Take 1 capsule by mouth once daily. Changing pharmacy to [facility] pharmacy since [facility] closed. Hernandez Toro LPN December 02, 2024 9:48 AM [facility] 12-02-2024 Miscellaneous Notes The patient has been identified by name and date of : Yes Caregiver verified no other encounters exist for this prescription request: Yes Caregiver confirmed with patient/requestor that no other refills are due, in the near future, with this provider at this time: Yes The last office visit in the department: 10/04/2024 Does the patient have a future office visit with this provider/department: Yes 01/13/2025 Requested Prescriptions Pending Prescriptions Disp Refills dilTIAZem CD (CARDIZEM CD, CARTIA XT) 240 mg 24 hr capsule 90 capsule 1 Sig: Take 1 capsule by mouth once daily. Changing pharmacy to [facility] since [facility] closed. Hernandez Toro LPN December 02, 2024 9:48 AM documented in this encounter [facility] 11-11-2024 Telephone encounter Note [facility] 09/25/24 Patient phones requesting refills as follows: Requested Prescriptions Pending Prescriptions Disp Refills WIXELA INHUB 100-50 mcg/dose inhaler [Pharmacy Med Name: WIXELA 100-50 INHUB] 5 Sig: inhale 1 puff by mouth and INTO THE LUNGS twice a day Please review and advise. Juany Iraheta LPN [facility] 11-11-2024 Miscellaneous Notes [facility] 09/25/24 Patient phones requesting refills as follows: Requested Prescriptions Pending Prescriptions Disp Refills WIXELA INHUB 100-50 mcg/dose inhaler [Pharmacy Med Name: WIXELA 100-50 INHUB] 5 Sig: inhale 1 puff by mouth and INTO THE LUNGS twice a day Please review and advise. Juany Iraheta LPN documented in this encounter [facility] 11-06-2024 Telephone encounter Note Pt called and is notified of providers message and instructions. Pt voices understanding. Sent from requesting OV notes from Dr Denise at [facility] fax # [phone]. Anamaria Ceron, DIANNE [facility] 11-06-2024 Miscellaneous Notes Pt called and is notified of providers message and instructions. Pt voices understanding. Sent from requesting OV notes from Dr Denise at [facility] fax # [phone]. Anamaria Ceron RN Let her know I have gotten nothing from them, can we try and obtain old records. If occurs again, needs to come in Pt called in and reports she saw Dr Rascon on 10/04/24 and he referred her to ENT. She saw Dr Denise and he did not think issue was ear related. Provider said he could do an MRI, but didn't think it was necessary. He said he would send his OV note to Dr Rascon, and referred her back to PCP. Pt states she hasn't had any episodes since mid September, but had 3-4 within a 2 month period before then. Pt states she would get dizzy and reel back on her heels, and one time she was outside without anything to hold onto and fell. Pt said she would wait to hear back from provider before setting up another appointment. Please call and advise. Anamaria Ceron RN documented in this encounter [facility] 11-06-2024 Telephone encounter Note Let her know I have gotten nothing from them, can we try and obtain old records. If occurs again, needs to come in [facility] 11-06-2024 Telephone encounter Note Pt called in and reports she saw Dr Rascon on 10/04/24 and he referred her to ENT. She saw Dr Denise and he did not think issue was ear related. Provider said he could do an MRI, but didn't think it was necessary. He said he would send his OV note to Dr Rascon, and referred her back to PCP. Pt states she hasn't had any episodes since mid September, but had 3-4 within a 2 month period before then. Pt states she would get dizzy and reel back on her heels, and one time she was outside without anything to hold onto and fell. Pt said she would wait to hear back from provider before setting up another appointment. Please call and advise. Anamaria Ceron RN [facility] 10-08-2024 Telephone encounter Note Pt notified. Ofelia Brenner MA [facility] 10-08-2024 Miscellaneous Notes Pt notified. Ofelia Brenner MA Ok. In some Instances that can cause a false positive and darker stools. Stop the vitamin. Recheck ifobt in two weeks. Pt notified of results and provider message. Pt reports she takes a multivitamin that has 8 mg of iron in it but that is it. Rachel Wright LPN Left vm for patient to return call to nurse for provider's message. Her stool test was positive for blood. She indicated she was seeing some black stools. She just recently had an egd. Make sure not using any iron containing supplements yet. Please let me know. If not, we may have her see gi. documented in this encounter [facility] 10-08-2024 Telephone encounter Note Ok. In some Instances that can cause a false positive and darker stools. Stop the vitamin. Recheck ifobt in two weeks. [facility] 10-08-2024 Telephone encounter Note Pt notified of results and provider message. Pt reports she takes a multivitamin that has 8 mg of iron in it but that is it. Rachel Wright LPN [facility] 10-08-2024 Telephone encounter Note Left vm for patient to return call to nurse for provider's message. [facility] 10-08-2024 Telephone encounter Note Her stool test was positive for blood. She indicated she was seeing some black stools. She just recently had an egd. Make sure not using any iron containing supplements yet. Please let me know. If not, we may have her see gi. [facility] 10-04-2024 Note [facility] 10-04-2024 History of Present illness Narrative Dinora Carrington is a 74 year old female who presents for Follow Up History of Present Illness Weightloss: - has remained steady. - appetite is good. Lightheadedness: - Recurrent episodes of lightheadedness, x4 since June or July. - Episodes often occur when bending over or turning quickly. can also happen if turning her head from side to side - Most recent episode occurred in September. - Describes episodes as feeling like I really go up my heels and I'm going backwards. - Able to prevent falls by quickly sitting or falling into a nearby chair. - Denies actual syncope or hitting head during episodes. - No associated vertigo or room spinning. - Reports similar episodes dating back to 2004. has been seen for it numerous times. - is unsure, but may have noted increase in frequency and severity since diltiazem dosage was increased in May. - Denies emesis or diarrhea. - Reports mild constipation with occasional blackish stools, but denies melena. Cardiomyopathy: - History of cardiomyopathy and hypertrophic obstructive cardiomyopathy. - Currently taking diltiazem; dosage increased in May. - Recent echocardiogram in July. - Recent carotid ultrasound showed minimal narrowing. - Recent cardiology follow-up in June. Anemia: - Recent labs in June showed improvement in previously noted anemia. - Underwent EGD and colonoscopy in March to investigate anemia. - Believes anemia may have been related to a previous surgery. Pulmonary: - Requires nocturnal oxygen therapy. - Recent pulmonary follow-up within the last year. Immunizations: - Received shingles vaccine; next dose scheduled for next week. - Received COVID-19 vaccine in the fall. Review of Systems Constitutional: (-) weight changes, (-) appetite changes Gastrointestinal: (-) vomiting, (-) diarrhea, (-) hematochezia, (-) melena, (+) mild constipation, (+) occasional blackish stools Genitourinary: (-) dysuria Neurological: (+) lightheadedness (+) intermittent facial tingling, (-) syncope Objective Blood pressure 148/68, pulse 80, height 157.5 cm (5' 2), weight 49.4 kg (109 lb), SpO2 95%. Physical Exam GENERAL: NAD, alert and oriented. SKIN: Unremarkable, no rash or skin lesions. HEAD: Normocephalic. EYES: PERRLA, EOMI, conjunctiva clear. EARS: External ears normal, canals clear, TM's normal. NOSE/SINUSES: Nares normal. Septum midline. OROPHARYNX: Lips, mucosa, and tongue normal, good dentition. No oral lesions noted. NECK: Supple, no lymphadenopathy, normal thyroid, no carotid bruits. LUNGS: Clear to auscultation bilaterally, no wheezes/rhonchi/rales. HEART: Regular rate and rhythm, no murmurs. No ectopy. EXTREMITIES: Normal, no deformities, no skin discoloration, no edema. NEURO: Awake, alert and oriented x3, cranial nerves II-XII grossly intact, normal gait, no involuntary motions. no nystagmus. unable to perform hallpike due to back pain. orthostatics are negative in the office. Results Labs: - (June) Lab results: Anemia resolved Imaging: - Carotid ultrasound: Minimal narrowing Tests: - (March) EGD and colonoscopy: No significant abnormalities Assessment & Plan 1. Essential hypertension (I10) - Blood pressure readings are stable, typically in the 120s mmHg at [facility]. - Continue current management. 2. Obstructive cardiomyopathy (HCC) (I42.8) has seen cardiology and followed with echos 3. HOCM (hypertrophic obstructive cardiomyopathy) ([facility]) (I42.1) - Recent echocardiogram in July 2023. - Continue diltiazem; potential side effect of lightheadedness discussed. - Follow-up with cardiology if ENT evaluation is inconclusive. 4. SVT (supraventricular tachycardia) ([facility]) (I47.10) - No current episodes reported. - Continue current management. 5. Restrictive 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 (J98.4) - [facility] 6. Asthma-COPD overlap syndrome ([facility]) (J44.89) as above. 7. Nocturnal hypoxia (G47.34) - Requires nocturnal oxygen therapy. - Continue current respiratory management. 8. Weight loss (R63.4) - Weight is stable since June. - Appetite is good; no further intervention needed at this time. 9. Anemia, unspecified type (D64.9) - Recent labs in June show resolution of anemia. - No further intervention needed at this time. 10. Lightheadedness (R42) - Episodes of lightheadedness when bending over, not associated with orthostatic hypotension. - Long-standing history of similar symptoms dating back to 2004. - Referral to ENT for further evaluation to rule out vestibular causes. - Ordered CBC and electrolytes. - Follow-up in 3 months; patient to report findings from ENT evaluation once obtained. - get up slowly. pressures show no orthostatic changes in the office. 11. Other constipation (K59.09) - Mild constipation reported. - Advised to monitor and manage with dietary modifications and hydration. check ifobt given dark stools. Markus Rascon MD Recording using [employer] software for draft documentation of the visit was discussed with the patient/authorized business banking representative; all questions welcomed and answered. Patient/authorized business banking representative agreed to proceed documented in this encounter [facility] 10-04-2024 Instructions Markus Rascon MD - 10/04/2024 12:25 PM EDT Schedule an appointment with your ENT specialist [facility] to have your lightheaded episodes evaluated. Get up slowly and check labs. After your ENT visit, please call our office with their recommendations so we can decide if a follow-up with cardiology is needed. You are scheduled to receive your next shingles shot next week. A follow-up visit is planned in about 3 months; if your symptoms worsen before then, contact our office. do stool test we have given you as well. documented in this encounter [facility] 09-25-2024 History of Present illness Narrative Patient: Vandana Mitchell PCP: Markus Rascon MD CC: Follow up HPI: Vandana Mitchell 74 year old female non-smoker with PMH significant for HTN, MGUS, HOCM, restrictive 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, and asthma. Diagnosed clinically with asthma, unable to perform CARL due to her baseline severe restriction and patient unable to perform Jeannette. Current maintenance therapy Wixela 250 mcg and PRN Albuterol. Has not required Albuterol in the past year. Today, patient denies daily cough, sputum production, hemoptysis, or wheezing. Exertional dyspnea has not changed with climbing stairs or walking long distances. No fevers, chills, or night sweats. No unintended weight loss. No lower extremity edema. No GERD/heartburn. No recent hospitalizations or ED visits or upper respiratory infections. Currently wearing 2L supplemental oxygen at night. 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: [...] to perform definitive test SVT (supraventricular tachycardia) ([facility]) 01/14/2020 Unspecified essential hypertension Allergies: Amoxicillin Rash Asa [Salicylates] Swelling Comment:lip swelling Diclofenac Shortness of Breath Iodine Shortness of Breath Monistat 1 [Tiocona* Intolerance Comment:Burning Shellfish Containin* Anaphylaxis dilTIAZem CD (CARDIZEM CD, CARTIA XT) 240 mg 24 hr capsule take 1 capsule by mouth once daily WIXELA INHUB 250-50 mcg/dose inhaler inhale 1 puff by mouth twice a day docusate sodium (COLACE) 100 mg capsule Take 1 capsule by mouth two times a day as needed for constipation. (Patient not taking: Reported on 07/04/2024) albuterol HFA (VENTOLIN HFA) 90 mcg/actuation inhaler Inhale 2 Puffs as instructed every 4 hours as needed for wheezing/shortness of breath. calcium citrate (CITRACAL ORAL) Take 2 capsules by mouth two times a day. clindamycin (CLEOCIN T) 1 % gel Apply to affected area once daily. denosumab (PROLIA) 60 mg/mL Inject subcutaneously once every 6 months. melatonin 3 mg tablet Take 3 mg by mouth as needed. qhs (Patient not taking: Reported on 07/04/2024) acetaminophen 325 mg cap Take by mouth as needed. Social History Tobacco Use Smoking status: Never [...] INCISIONAL left Bx of breast, incisional COLONOSCOPY 03/21/2024 repeat 10 years COLONOSCOPY FLX DX W/COLLJ SPEC WHEN PFRMD 10/27/2004 Colonoscopy COLONOSCOPY FLX DX W/COLLJ SPEC WHEN PFRMD 02/22/2010 Colonoscopy COLONOSCOPY FLX DX W/COLLJ SPEC WHEN PFRMD 03/19/2015 Colonoscopy CORRECT BUNION,SIMPLE CORRECTION HAMMERTOE EGD 03/21/2024 EYE SURGERY HX PAST SURGICAL HISTORY OF scoliosis surgery PAST SURGICAL HISTORY OF laser kidney stone PAST SURGICAL HISTORY OF lap hysterectomy. benign ov mass TONSILLECTOMY HX TONSILLECTOMY PRIMARY/SECONDARY <AGE 12 Tonsillectomy VAGINAL HYSTERECTOMY 12/2023 With bladder repair I reviewed the past medical history, family history, social history and surgical history with changes noted above and updated in EMR. IMMUNIZATIONS Immunization History Administered Date(s) Administered COVID-19 original vaccine, booster dose, monovalent (MODERNA) 12/20/2021 COVID-19 original vaccine, full dose, monovalent (MODERNA) 07/29/2020 08/26/2020 04/08/2021 COVID-19 vaccine, age 12+ yr (MODERNA) 03/30/2023 04/03/2024 COVID-19 vaccine, age 12+ yr, bivalent (MODERNA) 03/25/2022 diphtheria tetanus (DT) vaccine, pediatric 10/12/1992 influenza (HD-IIV3) vaccine, age 65+ yr, high dose, trivalent, PF (FLUZONE HIGH-DOSE) 02/26/2016 02/21/2017 03/03/2018 02/14/2019 influenza (HD-IIV4) vaccine, age 65+ yr, high dose, quadrivalent, PF (FLUZONE HIGH-DOSE) 03/25/2020 02/17/2021 03/18/2022 03/03/2023 influenza (IIV3) vaccine, age 6 mo - 64 yr, trivalent (AFLURIA, FLULAVAL, FLUVIRIN, FLUZONE) 03/19/2014 influenza (IIV4) vaccine, age 6 mo - 64 yr, quadrivalent (AFLURIA, FLULAVAL, FLUZONE) 03/25/2015 influenza vaccine, unspecified formulation 04/22/2005 05/17/2006 04/20/2007 04/25/2008 03/23/2009 04/09/2010 04/11/2011 04/14/2012 03/19/2013 pneumococcal conjugate (PCV13) vaccine, 13 valent (PREVNAR 13) 06/23/2014 pneumococcal polysaccharide (PPV23) vaccine, 23 valent (PNEUMOVAX 23) 09/13/2000 08/09/2018 respiratory syncytial virus (RSV) vaccine, adjuvanted (AREXVY) 04/13/2023 tetanus diphtheria pertussis (Tdap) vaccine, age 7+ yr (ADACEL, BOOSTRIX) 07/28/2006 zoster (ZVL) vaccine, live (ZOSTAVAX) 04/30/2012 ROS: All other systems reviewed as negative except for what is noted in HPI and review of systems. PHYSICAL EXAMINATION: BP 136/70 (BP Site: Right Arm, BP Position: Sitting, BP Cuff Size: Regular Adult) Pulse 83 Resp 17 Wt 50.1 kg (110 lb 7.2 oz) SpO2 97% BMI 20.20 kg/m Gen: No acute distress. Cooperative with [...] status normal. Affect normal. No tremor. DATA: Laboratory and Imaging: Last Spirometry SPIROMETRY BASELINE ONLY Collected: 03/27/2024 10:54 AM (Final result) Narrative: [facility] [address] [place] [address] Test Date: 2024-03-27 Pat Name: VANDANA MITCHELL Department: Room: Gender: Female Hand Ii Blocker: : 1950 Requested By: Order Number: [id number] Reading MD: Mariana Russell MD Interpretive Statements Current ATS/ERS acceptability and repeatability standards for spirometry met. Start of test and EOFE criteria met. Current ATS/ERS acceptability and repeatability standards for DLCO met with 2 acceptable maneuvers. TGV repeatable x3. IMPRESSION: Spirometry indicates moderate obstruction. Elevated lung volumes (RV and/or RV/TLC) indicate air trapping. The diffusing capacity (uncorrected for hemoglobin) is reduced. The kCO (DLCO/VA) reflects a normal transfer/diffusion of CO from the alveolar regions to the blood. Clinical correlation recommended. Electronically Signed On 03-28-2024 16:40:48 EDT by Mariana Russell MD ID: [id number] Name: VANDANA MITCHELL Race: White Ht: 62.05 in Wt: 109.00 lbs Age: 73 Gender: Female : 1950 Dx: COPD_ Smoking Hx: Non-smoker Doctor: SHANITA JACKSON Test Date: 03/27/2024 Site: Tech: Leighann Dos Santos PRE-BRONCH POST-BRONCH Pre LLN Pred ULN %Pred Post %Pred %Chg SPIROMETRY FVC (L) 1.55 1.71 2.44 3.20 63 FEV1 (L) 0.97 1.30 1.90 2.45 51 FEV1/FVC 0.63 0.65 0.79 0.90 79 PEF L/s (L/sec) 2.56 3.35 4.96 6.56 51 FEF50 (L/sec) 0.65 1.22 2.82 4.43 22 FIF50 (L/sec) 1.39 FEF50/FIF50 0.47 90-100 FIVC (L) 1.58 ZLY80-23 (L/sec) 0.49 0.72 1.63 2.97 30 Time (sec) 6.51 FET PEF (sec) 0.06 AFSHAN (L) 0.03 Vol Extrap % (%) 2 LUNG VOLUMES TGV (L) 2.68 1.86 2.72 3.58 98 ERV (L) 0.29 0.81 35 RV (Pleth) (L) 2.37 1.56 2.19 2.82 108 SVC (L) 1.43 1.71 2.44 3.20 58 IC (L) 1.09 1.63 67 TLC (Pleth) (L) 3.75 3.88 4.76 5.64 78 RV/TLC (Pleth) (%) 63 37 46 55 139 LUNG DIFFUSION DLCOunc (ml/min/mmHg) 10.65 13.01 19.17 25.34 55 VA (L) 2.80 3.64 4.74 5.84 58 DLunc/VA (ml/min/mmHg/L) 3.81 2.98 4.30 5.62 88 BHT (sec) 11.76 IVC (L) 1.50 Comments: Current ATS/ERS acceptability and repeatability standards for spirometry met. Start of test and EOFE criteria met. Current ATS/ERS acceptability and repeatability standards for DLCO met with 2 acceptable maneuvers. TGV repeatable x3. Arterial blood gas: No results found for: PH, PCO2, PO2, HCO3, BE, LACT CT Chest other findings: Last CT Chest - Impression Only CT CHEST WO IVCON Exam End: 01/21/2022 1:20 PM (Final result) Impression: IMPRESSION: No suspicious mass or adenopathy in the chest Scoliosis Extracorporeal Technician: ABHIJIT ... Last XR Chest - Impression Only XR CHEST 2V FRONTAL/LAT Exam End: 11/24/2020 2:56 PM (Final result) Impression: IMPRESSION: No acute radiographic abnormality. ... ASSESSMENT/PLAN: 1. Asthma-COPD overlap syndrome (HCC) - ICD9: 493.20, ICD10: J44.89 (primary diagnosis) Symptomatically well controlled. Will trial decreasing Wixela from 250 mcg to 100 mcg. Patient to notify me if she is not tolerating. Albuterol HFA inhaler, 2 inhalations 10-15 minutes prior to activities associated with shortness of breath, and as needed for rescue relief of shortness of breath or wheezing, up to 4 times daily. - FLUTICASONE 100 MCG-SALMETEROL 50 MCG/DOSE BLISTR POWDR FOR INHALATION 2. Restrictive 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 - ICD9: 518.89, 737.43, ICD10: J98.4, M41.9 No specific intervention. 3. Nocturnal hypoxia - ICD9: 327.24, ICD10: G47.34 Continue 2 L supplemental oxygen at night. DME: [employer] Portions of this documentation were copied and pasted from previous office visit notes in order to provide a cohesive continuity of the history. The note has been reviewed and edited and updated as necessary. Shanita Jackson PA-C documented in this encounter [facility] 09-25-2024 Note [facility] 08-06-2024 History of Present illness Narrative Urogynecology & Reconstructive Pelvic Surgery Follow-Up Vandana Mitchell is a 74 y.o. female who presents for a follow-up of s/p: 12/19/23 Dr. Chery Laparoscopic assisted vaginal hysterectomy with BSO Dr. Alston Uterosacral ligament vaginal vault suspension (intraperitoneal colpopexy) Anterior colporrhaphy [employer] Obtryx II transobturator midurethral sling Cystourethroscopy History since last visit: Pt feels like prolapse has returned, not as bad as prior to surgery. She reports urinary urgency, UUI. Denies voiding symptoms. I have confirmed and edited as necessary, the PFSH and ROS obtained by others. Marie Alston MD Pig Conveyor Operator: Montse Davis MA OBJECTIVE: There were no vitals taken for this visit. General Appearance: no acute distress, normally developed, and affect appropriate Pelvic: External Genitalia: normal appearing vulva with no masses, tenderness, or lesions Vagina: Ant Wall - Stage II; Post Wall - Stage I Cervix / [place] - Stage I POP-Q: Aa = +0.5 Ba = +0.5 C = -6.5 GH = 3 PB = 2.5 TVL = 8 Ap = -2 Bp = -2 D = N/A Vaginal epithelium: atrophic Cervix: surgically absent Urethra: normal appearing urethra with no masses, tenderness or lesions Bimanual: no palpable masses or tenderness Rectovaginal: deferred Impression: Vandana Mitchell is a 74 y.o. female with recurrent stage 2 cystocele, OAB. Plan: 1. Cystocele, midline (Primary) - Exam findings reviewed and discussed. Pt is aware of prolapse, but it is not severe and not bothersome to her at this time. - Discussed PMEs, PFPT, pessary, surgery as options for management if bothersome symptoms in the future. 2. OAB (overactive bladder) - OAB care pathway reviewed and discussed. Literature given on PMEs, bladder retraining. Follow up in 6 months or sooner jessan Marie Alston MD documented in this encounter [facility] 07-17-2024 Telephone encounter Note Pt called and requested a copy of he last CMP be faxed to Dr. Gordy Null at [facility]. Done. Jo Ann Herman LPN [facility] 07-17-2024 Miscellaneous Notes Pt called and requested a copy of he last CMP be faxed to Dr. Gordy Null at [facility]. Done. Jo Ann Herman LPN documented in this encounter [facility] 07-04-2024 History of Present illness Narrative Diagnosis: 1) [...] Presents for ongoing hematologic management. Interim history: No symptoms of peripheral neuropathy. Has migratory arthritic pain. No particular persistent or constant MS pain. Had total hysterectomy in December. Started on oral iron by PCP last fall. Had endoscopy 03/2024. PMH, medications and allergies personally reviewed by [...] Normal mood. PHYSICAL EXAM: Vitals: Blood pressure 159/82, pulse 71, temperature 36.8 C (98.3 F), weight 50.6 kg (111 lb 8 oz), SpO2 96%. Well-appearing and in no acute distress. EYES: Sclerae are anicteric bilaterally. LYMPHATIC: There is no palpable cervical, supraclavicular adenopathy. CARDIOVASCULAR: Rhythm is regular. ABDOMEN: The abdomen is nondistended. IMAGING: Whole-body bone survey 05/09/2024: Skull: No [...] IMPRESSION: No acute fracture or destructive osseous lesion. PATHOLOGY: Bone marrow biopsy 06/14/2023: A-C. Bone marrow, aspirate smear and core biopsy, with clot section: - Normocellular marrow (30%) with trilineage hematopoiesis and no diagnostic features of involvement by plasma cell neoplasm, see comment. D. Peripheral blood smear: - No cytologic abnormalities. Diagnosis Comment The history of monoclonal gammopathy with IgG [...] loss of specific cell populations, or hemodilution. Morphology/Interpretation: No cytologic abnormalities. BONE MARROW ASPIRATE: [...] appearing lymphoid aggregate is present. Other: N/A. DIAGNOSIS: 46,XX[20] ASSESSMENT/PLAN: (D47.2) Monoclonal gammopathy (primary encounter diagnosis) Assessment: -IgG lambda monoclonal protein with initial M spike concentration at 0.42 g/dL. -Current serum monoclonal protein 0.59 g/dL. -History of osteoporosis. Receiving q 6 month Prolia. -Was not able to have MRI or CT (spinal hardware) for baseline imaging. Discussed PET for completion, but she declines now--prefers to wait until next year. Reasonable given stability and had bone marrow. Plan: -Reassess in a year. -Whole body PET scan prior to that assessment. -She will continue management of osteoporosis with Dr. Null. -Follow up with PCP for management of HTN. Portions of this documentation were copied and pasted from my previous office visit note dated 07/04/2023 in order to provide a cohesive continuity of the history. The note has been reviewed and edited and updated as necessary. I spent a total of 20 minutes on the date of the service which included preparing to see the patient, [id number] patient care, completing clinical documentation, counseling and educating the patient/family/caregiver, ordering medications, tests, or procedures, communicating with other HCPs (not separately reported), and communicating results to the patient/family/caregiver. Danny Oneill DO documented in this encounter [facility] 07-04-2024 Note [facility] 06-28-2024 History of Present illness Narrative Patient presents with: F/U 3 months HPI: Patient presents today for office visit for 3 month follow up. Patient is checking blood pressures daily with weight once a week. Still has concerns with weight loss and anemia. Denies chest pain, palpitations, or SOB. Just recently saw cardiology. Weight is actually up one lb from February and bp is much better today Found to have iron deficiency anemia. Underwent egd and colonoscopy in 03/28. Had an irregular z line.. had hemorrhoids and diverticulosis. Bx negative. Just had cbc done by Dr Oneill which showed no anemia. Wants to stop her iron and resume her multivitamin. No gi issues. No chest pain or shortness of breath. No edema. MEDICATIONS: Current Outpatient Medications Medication Sig dilTIAZem CD (CARDIZEM CD, CARTIA XT) 240 mg 24 hr capsule take 1 capsule by mouth once daily WIXELA INHUB 250-50 mcg/dose inhaler inhale 1 puff by mouth twice a day docusate sodium (COLACE) 100 mg capsule Take 1 capsule by mouth two times a day as needed for constipation. ferrous sulfate 325 mg (65 mg iron) tablet Take 1 tablet by mouth two times a day with meals. (Patient taking differently: Take 325 mg by mouth once daily.) albuterol HFA (VENTOLIN HFA) 90 mcg/actuation inhaler Inhale 2 Puffs as instructed every 4 hours as needed for wheezing/shortness of breath. clindamycin (CLEOCIN T) 1 % gel Apply to affected area once daily. denosumab (PROLIA) 60 mg/mL Inject subcutaneously once every 6 months. acetaminophen 325 mg cap Take by mouth as needed. calcium citrate (CITRACAL ORAL) Take 2 capsules by mouth two times a day. melatonin 3 mg tablet Take 3 mg by mouth as needed. [facility] No current facility-administered medications for this visit. ALLERGIES: ALLERGIES Allergen Reactions Amoxicillin Rash Asa [Salicylates] Swelling lip swelling Diclofenac Shortness of Breath Iodine Shortness of Breath Monistat 1 [Tiocona* Intolerance Burning Shellfish Containin* Anaphylaxis PAST MEDICAL HISTORY Diagnosis Date Arthritis Diastolic dysfunction Grade I Disorder of bone and cartilage, unspecified Diverticulosis 2009 colonoscopy History of transfusion HOCM (hypertrophic obstructive cardiomyopathy) (HCC) Insomnia, unspecified Iron deficiency anemia Melanocytic Nevocellular Nevi pigmented moles of trunk: [...] INCISIONAL left Bx of breast, incisional COLONOSCOPY 03/21/2024 repeat 10 years COLONOSCOPY FLX DX W/COLLJ SPEC WHEN PFRMD 10/27/2004 Colonoscopy COLONOSCOPY FLX DX W/COLLJ SPEC WHEN PFRMD 02/22/2010 Colonoscopy COLONOSCOPY FLX DX W/COLLJ SPEC WHEN PFRMD 03/19/2015 Colonoscopy CORRECT BUNION,SIMPLE CORRECTION [facility] EGD 03/21/2024 EYE SURGERY HX PAST SURGICAL HISTORY OF scoliosis surgery PAST SURGICAL HISTORY OF laser kidney stone PAST SURGICAL HISTORY OF lap hysterectomy. benign ov mass TONSILLECTOMY HX TONSILLECTOMY PRIMARY/SECONDARY <AGE 12 Tonsillectomy VAGINAL HYSTERECTOMY 12/2023 With bladder repair FAMILY HISTORY Problem Relation Age of Onset [...] and recommended the following in detail. BP Controlled (<130/80) Never done Advance Directive Discussion due on 06/05/2024 VITALS: BP 136/72 Pulse 84 Resp 14 Wt 49.4 kg (109 lb) SpO2 98% BMI 19.94 kg/m Last 4 Encounter Wt Readings: Date: Wt: 06/24/2024 49.8 kg (109 lb 12.8 oz) 04/03/2024 49.4 kg (108 lb 14.5 oz) 04/02/2024 49.1 kg (108 lb 3.2 oz) 03/27/2024 49.4 kg (109 lb) PHYSICAL EXAMINATION: General appearance: Well appearing, alert, in no acute distress, well-hydrated, well nourished. Skin: Skin color, texture, turgor normal, no suspicious rashes or lesions Lungs: Lungs clear to auscultation. No wheezing, rhonchi, rales Heart: RRR without murmur, gallop, or rubs. No ectopy Abdomen: Normal abdominal exam, Abdomen soft, non-tender. Bowel sounds normal. No masses, organomegaly Extremities: No deformities, edema, skin discoloration, clubbing or cyanosis. Good capillary refill. ASSESSMENT/PLAN: 1. Asthma-COPD overlap syndrome (HCC) - ICD9: 493.20, ICD10: J44.89 (primary diagnosis) - stable. 2. Essential hypertension - ICD9: 401.9, ICD10: I10 - Controlled - Continue current medications - Recommend regular aerobic exercise 3. Obstructive cardiomyopathy (HCC) - ICD9: 425.4, ICD10: I42.8 - stable 4. SVT (supraventricular tachycardia) ([facility]) - ICD9: 427.89, ICD10: I47.10 - stalbe. 5. HOCM (hypertrophic obstructive cardiomyopathy) ([facility]) - ICD9: 425.11, ICD10: I42.1 - stable. 6. Anemia, unspecified type - ICD9: 285.9, ICD10: D64.9 - stable 7. Bilateral carotid artery stenosis - ICD9: 433.10, 433.30, ICD10: I65.23 - stable. Markus Rascon MD documented in this encounter [facility] 06-28-2024 Note [facility] 06-24-2024 Note [facility] 06-24-2024 History of Present illness Narrative Images from the original note were not included. Clary Nolasco MD Interventional Cardiology [address] [place] [address] [phone] Chief Complaint Patient presents with: Established Patient HISTORY OF PRESENT ILLNESS: Ms. Mitchell is a 74 year old female seen in my office today for assessment and management patient have prior history of hypertrophic cardiomyopathy maintained on a Cardizem she maintain to be asymptomatic denies chest pain or palpitation most recent echo she has a resting LVOT gradient of 5 mmHg but not provokable gradient No signs or symptoms of congestive heart failure Cardiac Risk Factors age (male over 45, female over 55), hypertension PAST MEDICAL HISTORY Diagnosis Date Arthritis Diastolic dysfunction Grade I Disorder of bone and cartilage, unspecified Diverticulosis 2009 colonoscopy History of transfusion HOCM (hypertrophic obstructive cardiomyopathy) ([facility]) Insomnia, unspecified Iron deficiency anemia Melanocytic Nevocellular Nevi pigmented moles of trunk: [...] to perform definitive test SVT (supraventricular tachycardia) ([facility]) 01/14/2020 Unspecified essential hypertension PAST SURGICAL HISTORY Procedure Laterality Date BACK SURGERY HX BIOPSY BREAST OPEN INCISIONAL left Bx of breast, incisional COLONOSCOPY 03/21/2024 repeat 10 years COLONOSCOPY FLX DX W/COLLJ SPEC WHEN PFRMD 10/27/2004 Colonoscopy COLONOSCOPY FLX DX W/COLLJ SPEC WHEN PFRMD 02/22/2010 Colonoscopy COLONOSCOPY FLX DX W/COLLJ SPEC WHEN PFRMD 03/19/2015 Colonoscopy CORRECT BUNION,SIMPLE CORRECTION [facility] EGD 03/21/2024 EYE SURGERY HX PAST SURGICAL HISTORY OF scoliosis surgery PAST SURGICAL HISTORY OF laser kidney stone PAST SURGICAL HISTORY OF lap hysterectomy. benign ov mass TONSILLECTOMY HX TONSILLECTOMY PRIMARY/SECONDARY <AGE 12 Tonsillectomy VAGINAL HYSTERECTOMY 12/2023 With bladder repair FAMILY HISTORY Problem Relation Age of Onset [...] of Breath Monistat 1 [Tiocona* Intolerance Burning Shellfish Containin* Anaphylaxis Medications: Current Outpatient Medications Medication Sig Dispense Refill dilTIAZem CD (CARDIZEM CD, CARTIA XT) 240 mg 24 hr capsule take 1 capsule by mouth once daily 90 capsule 1 WIXELA INHUB 250-50 mcg/dose inhaler inhale 1 puff by mouth twice a day 180 Each 3 docusate sodium (COLACE) 100 mg capsule Take 1 capsule by mouth two times a day as needed for constipation. 60 capsule 2 ferrous sulfate 325 mg (65 mg iron) tablet Take 1 tablet by mouth two times a day with meals. (Patient taking differently: Take 325 mg by mouth once daily.) 60 tablet 11 albuterol HFA (VENTOLIN HFA) 90 mcg/actuation inhaler Inhale 2 Puffs as instructed every 4 hours as needed for wheezing/shortness of breath. 1 Each 3 calcium citrate (CITRACAL ORAL) Take 2 capsules by mouth two times a day. clindamycin (CLEOCIN T) 1 % gel Apply to affected area once daily. 60 g 2 denosumab (PROLIA) 60 mg/mL Inject subcutaneously once every 6 months. melatonin 3 mg tablet Take 3 mg by mouth as needed. qhs acetaminophen 325 mg cap Take by [...] does not have insomnia. Physical Examination: Vitals:BP 170/77 Pulse 87 Wt 109 lb 12.8 oz (49.8kg) SpO2 96% BP w/Orthostatic Vitals Date and Time Orthostatic BP Orthostatic Pulse BP Pulse BP Position BP Site BP Cuff Size 06/24/24 1016 -- -- 170/77 87 Sitting Right Arm Regular Adult Last 2 Encounter Wt Readings: Date: Wt: 06/24/2024 49.8 kg (109 lb 12.8 oz) 04/03/2024 49.4 kg (108 lb 14.5 oz) Physical Exam Constitutional: General: She is [...] or rales. Chest: Chest wall: No tenderness. Abdominal: General: Abdomen is flat. Musculoskeletal: General: Normal range of motion. Cervical back: Normal range of motion and neck supple. Skin: General: Skin is warm and dry. Neurological: Mental Status: She is alert and oriented to person, place, and time. Psychiatric: Mood and Affect: Mood normal. Thought Content: Thought content normal. Judgment: Judgment normal. Pertinent Labs: CBC: Hemoglobin (g/dL) Date Value 05/30/2024 11.5 05/05/2021 12.9 Hematocrit (%) Date Value 05/30/2024 36.5 05/05/2021 40.3 WBC (k/uL) Date Value 05/30/2024 8.02 05/05/2021 10.73 Platelet Count (k/uL) Date Value 05/30/2024 238 05/05/2021 270 BMP: Glucose (mg/dL) Date Value 02/13/2024 103 05/05/2021 95 Potassium (mmol/L) Date Value 02/13/2024 4.0 05/05/2021 3.3 Sodium (mmol/L) Date Value 02/13/2024 140 05/05/2021 139 Chloride (mmol/L) Date Value 02/13/2024 100 05/05/2021 101 CO2 (mmol/L) Date Value 02/13/2024 30 05/05/2021 27 Creatinine (mg/dL) Date Value 02/13/2024 0.66 05/05/2021 0.68 BUN (mg/dL) Date Value 02/13/2024 21 05/05/2021 16 Anion Gap (mmol/L) Date Value 02/13/2024 10 05/05/2021 11 Calcium (mg/dL) Date Value 05/05/2021 9.6 Calcium, Total (mg/dL) Date Value 02/13/2024 10.1 INR: Lipid Profile: Cholesterol, Total Date Value Ref Range Status 12/04/2023 219 (H) <200 mg/dL Final Comment: <200 mg/dL, Desirable 200-239 mg/dL, Borderline high >239 mg/dL, High HDL Cholesterol Date Value Ref Range Status 12/04/2023 69 >39 mg/dL Final Comment: 40-59 mg/dL, Acceptable >59 mg/dL, High: Negative risk factor for coronary heart disease <40 mg/dL, Low: Positive risk factor for coronary heart disease LDL Cholesterol Date Value Ref Range Status 12/04/2023 125 (H) <100 mg/dL Final Comment: <100 mg/dL, Optimal 100-129 mg/dL, Near optimal/above optimal 130-159 mg/dL, Borderline high 160-189 mg/dL, High >189 mg/dL, Very high Secondary prevention optimal LDL Cholesterol levels are recommended to be < 70 mg/dL Triglyceride Date Value Ref Range Status 12/04/2023 124 <150 mg/dL Final Comment: <150 mg/dL, Normal 150-199 mg/dL, Borderline high 200-499 mg/dL, High >499 mg/dL, Very high Hemoglobin A1C: No results found for: HGBA1C TSH: No results found for: TSHREFL Prior Cardiac Testing none Assessment and Plan: 74 years old female patient with history of hypertrophic cardiomyopathy ASSESSMENT/PLAN: 1. Essential hypertension - ICD9: 401.9, ICD10: I10 (primary diagnosis) - Controlled - Continue current medications - Recommend home blood pressure monitoring, to bring results to next visit - Encouraged sodium restriction, DASH or Mediterranean diet - Recommend regular aerobic exercise 2. SVT (supraventricular tachycardia) (HCC) - ICD9: 427.89, ICD10: I47.10 Stable no further arrhythmias 3. HOCM (hypertrophic obstructive cardiomyopathy) (HCC) - ICD9: 425.11, ICD10: I42.1 Most recent echo shows LVOT gradient 5 mmHg with no provokable gradient continue Cardizem Clary Nolasco MD Follow up planning: One year Electronically signed by Clary Nolasco MD on June 24, 2024, 10:58 AM The above note was partially created using a dictation recognition software. A reasonable attempt has been made to correct any errors. documented in this encounter [facility] 05-31-2024 Instructions Debbie Constantino APRN.CNP - 05/31/2024 11:03 AM EST Continue the same medications. Follow-up with Dr. Rascon, as planned. documented in this encounter [facility] 05-31-2024 Note [facility] 05-31-2024 History of Present illness Narrative This is a 74 year old female who presents today with: Patient presents with: Follow Up HISTORY OF PRESENT ILLNESS: Vandana Mitchell is a 74 year old female. Patient presents with: Follow Up Pt presents today for BP follow-up. At last visit, her diltiazem was increased. She has known white coat syndrome. No problems with dosage change. Home BPs running mostly 120's and 130's after the dose change. Continues to monitor weight at home. In March -- 106.4 Last week -- 104.0 Had scopes. She takes boost daily, but occasionally forgets. Eats regularly . lunch is usually light. Sometimes doesn't eat lunch. Anemia Last labs showed improved blood count. Had scopes. Continues with daily iron. PAST MEDICAL HISTORY: PAST MEDICAL HISTORY Diagnosis Date Arthritis Diastolic dysfunction Grade I Disorder of bone and cartilage, unspecified Diverticulosis 2009 colonoscopy History of transfusion HOCM (hypertrophic obstructive cardiomyopathy) ([facility]) Insomnia, unspecified Melanocytic Nevocellular Nevi pigmented moles [...] to perform definitive test SVT (supraventricular tachycardia) ([facility]) 01/14/2020 Unspecified essential hypertension PAST SURGICAL HISTORY Procedure Laterality Date BACK SURGERY HX BIOPSY BREAST OPEN INCISIONAL left Bx of breast, incisional COLONOSCOPY 03/21/2024 repeat 10 years COLONOSCOPY FLX DX W/COLLJ SPEC WHEN PFRMD 10/27/2004 Colonoscopy COLONOSCOPY FLX DX W/COLLJ SPEC WHEN PFRMD 02/22/2010 Colonoscopy COLONOSCOPY FLX DX W/COLLJ SPEC WHEN PFRMD 03/19/2015 Colonoscopy CORRECT BUNION,SIMPLE CORRECTION [facility] EGD 03/21/2024 EYE SURGERY HX PAST SURGICAL HISTORY OF scoliosis surgery PAST SURGICAL HISTORY OF laser kidney stone PAST SURGICAL HISTORY OF lap hysterectomy. benign ov mass TONSILLECTOMY HX TONSILLECTOMY PRIMARY/SECONDARY <AGE 11 Tonsillectomy ALLERGIES Amoxicillin, Asa [Salicylates], Diclofenac, Iodine, Monistat 1 [Tioconazole], and Shellfish Containing Products MEDICATIONS Current Outpatient Medications Medication Sig WIXELA INHUB 250-50 mcg/dose inhaler inhale 1 puff by mouth twice a day dilTIAZem CD (CARDIZEM CD) 240 mg 24 hr capsule Take 1 capsule by mouth once daily. docusate sodium (COLACE) 100 mg capsule Take 1 capsule by mouth two times a day as needed for constipation. ferrous sulfate 325 mg (65 mg iron) tablet Take 1 tablet by mouth two times a day with meals. albuterol HFA (VENTOLIN HFA) 90 mcg/actuation inhaler Inhale 2 Puffs as instructed every 4 hours as needed for wheezing/shortness of breath. calcium citrate (CITRACAL ORAL) Take 2 capsules [...] Comment: Occasionally. Drug use: No EXAM: BP 146/72 Pulse 85 Resp 16 SpO2 94% 142/72 PHYSICAL EXAM: General Appearance: Well appearing, alert, in no acute distress, well-hydrated, well nourished.. Skin: Skin color, texture, turgor normal, no suspicious rashes or lesions. Head: Normocephalic, no masses, lesions, tenderness or abnormalities. Eyes: Anicteric sclera. Extraocular movements are intact. . Lungs: Lungs clear to auscultation. No wheezing, rhonchi, rales.. Heart: RRR without murmur, gallop, or rubs. No ectopy. Neurologic: Gait normal. ASSESSMENT/PLAN: 1. Essential hypertension - ICD9: 401.9, ICD10: I10 (primary diagnosis) - Home blood pressure readings controlled - Continue current medications - Recommend home blood pressure monitoring, to bring results to next visit - Encouraged sodium restriction, DASH or Mediterranean diet - Recommend regular aerobic exercise 2. Elevated parathyroid hormone - ICD9: 259.9, ICD10: R79.89 - PTH INTACT 3. Weight loss - ICD9: 783.21, ICD10: R63.4 Stable. Continue to monitor. 4. Iron deficiency anemia, unspecified iron deficiency anemia type - ICD9: 280.9, ICD10: D50.9 Blood counts improved. Continue to monitor. Discussed treatment plan and patient voices understanding. Patient's questions answered appropriately. Medications and potential side effects were discussed and patient voices understanding. Return to the office as scheduled or as needed for worsening/no improvement. Debbie Constantino APRN.LEATHER STITCHER documented in this encounter [facility] 05-24-2024 Telephone encounter Note [facility] 05/07/24 Pharmacy requesting 90 day supply: Requested Prescriptions Pending Prescriptions Disp Refills fluticasone-salmeterol (WIXELA INHUB) 250-50 mcg/dose inhaler [Pharmacy Med Name: WIXELA 250-50 INHUB] 180 Each 3 Sig: inhale 1 puff by mouth twice a day Please review and advise. Juany Iraheta LPN [facility] 05-24-2024 Miscellaneous Notes [facility] 05/07/24 Pharmacy requesting 90 day supply: Requested Prescriptions Pending Prescriptions Disp Refills fluticasone-salmeterol (WIXELA INHUB) 250-50 mcg/dose inhaler [Pharmacy Med Name: WIXELA 250-50 INHUB] 180 Each 3 Sig: inhale 1 puff by mouth twice a day Please review and advise. Juany Iraheta LPN documented in this encounter [facility] 05-07-2024 History of Present illness Narrative Images from the original note were not included. Pulmonary Medicine Patients name: Vandana Mitchell PCP: Markus Rascon MD CC: testing follow-up HPI: Vandana Mitchell is a 74 year old female non-smoker with PMH significant for HTN, MGUS, HOCM, restrictive 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, and asthma. Diagnosed clinically with asthma, unable to perform CARL due to her baseline severe restriction and patient unable to perform Jeannette. Current maintenance therapy Wixela 250 mcg and PRN Albuterol. She presents today to review testing. [facility] 03/27/2024. Underwent spirometry and 6MW test. Spirometry with moderate obstruction and a reduced diffusion capacity. Nocturnal oximetry with SPO2 below 88% for over 30 minutes. Ordered 2L at night which she just started using consistently a week ago. Currently, she continues to deny cough or sputum production. No wheezing. No dyspnea at rest. Exertional dyspnea has not changed with climbing stairs and walking long distances. No recent hospitalizations or ED visits or upper respiratory infections. DME: [employer] 2L Nocturnal O2 PAST MEDICAL HISTORY Diagnosis Date Arthritis Diastolic dysfunction Grade I Disorder of bone and cartilage, unspecified Diverticulosis 2009 colonoscopy History of transfusion HOCM (hypertrophic obstructive cardiomyopathy) ([facility]) Insomnia, unspecified Melanocytic Nevocellular Nevi pigmented moles [...] to perform definitive test SVT (supraventricular tachycardia) ([facility]) 01/14/2020 Unspecified essential hypertension Allergies: Amoxicillin Rash Asa [Salicylates] Swelling Comment:lip swelling Diclofenac Shortness of Breath Iodine Shortness of Breath Monistat 1 [Tiocona* Intolerance Comment:Burning Shellfish Containin* Anaphylaxis Medication List Accurate as of May 03, 2024 2:33 PM. If you have any questions, ask your nurse or doctor. CONTINUE taking these medications acetaminophen 325 mg Cap albuterol HFA 90 mcg/actuation inhaler Commonly known as: VENTOLIN HFA Inhale 2 Puffs as instructed every 4 hours as needed for wheezing/shortness of breath. CITRACAL ORAL clindamycin 1 % gel Commonly known as: CLEOCIN T Apply to affected area once daily. denosumab 60 mg/mL Commonly known as: PROLIA dilTIAZem CD 240 mg 24 hr capsule Commonly known as: CARDIZEM CD Take 1 capsule by mouth once daily. docusate sodium 100 mg capsule Commonly known as: COLACE Take 1 capsule by mouth two times a day as needed for constipation. ferrous sulfate 325 mg (65 mg iron) tablet Take 1 tablet by mouth two times a day with meals. fluticasone-salmeterol 250-50 mcg/dose inhaler Commonly known as: WIXELA INHUB Inhale 1 Puff as instructed two times a day. melatonin 3 mg tablet MULTIVITAMIN ORAL DATA: I personally reviewed and analyzed all labs, radiographs and available pulmonary function testing PFT: 03/27/2024 Spirometry indicates moderate obstruction. Elevated lung volumes (RV and/or RV/TLC) indicate air trapping. The diffusing capacity (uncorrected for hemoglobin) is reduced. The kCO (DLCO/VA) reflects a normal transfer/diffusion of CO from the alveolar regions to the blood. Clinical correlation recommended. Echo: 07/2023 CONCLUSIONS: - Exam indication: HOCM - The [...] with the prior echocardiographic exam performed on 10/15/2021, no significant change. Labs: WBC (k/uL) Date Value 04/29/2024 11.48 05/05/2021 10.73 RBC (m/uL) Date Value 04/29/2024 4.55 05/05/2021 4.94 Hemoglobin (g/dL) Date Value 04/29/2024 11.4 05/05/2021 12.9 Hematocrit (%) Date Value 04/29/2024 37.2 05/05/2021 40.3 Platelet Count (k/uL) Date Value 04/29/2024 340 05/05/2021 270 MPV (fL) Date Value 04/29/2024 11.1 05/05/2021 10.4 Neut% (%) Date Value 05/05/2021 74.7 Neutrophils % (%) Date Value 04/29/2024 77.3 Eosin% (%) Date Value 05/05/2021 1.3 Eosinophils % (%) Date Value 04/29/2024 1.0 Baso% (%) Date Value 05/05/2021 1.1 Basophils % (%) Date Value 04/29/2024 1.0 Abs Neut (ANC) (k/uL) Date Value 05/05/2021 8.00 Abs Neut (k/uL) Date Value 04/29/2024 8.88 Abs Nash (k/uL) Date Value 04/29/2024 1.06 05/05/2021 0.94 Abs Eosin (k/uL) Date Value 04/29/2024 0.11 05/05/2021 0.14 Abs Baso (k/uL) Date Value 04/29/2024 0.11 05/05/2021 0.12 Review of Systems Constitutional: Negative for activity change, appetite change and unexpected weight change. HENT: Negative for congestion, mouth sores, sinus pressure and sinus pain. Respiratory: Negative for cough, shortness of breath and wheezing. Cardiovascular: Negative for chest pain, palpitations and leg swelling. Allergic/Immunologic: Negative for environmental allergies. Neurological: Negative for dizziness and weakness. BP (P) 152/78 Pulse 85 Resp 14 SpO2 100% Physical Exam Constitutional: General: She is not in acute distress. Appearance: Normal appearance. She is normal weight. HENT: Head: Normocephalic. Mouth/Throat: Mouth: Mucous membranes are moist. Pharynx: No oropharyngeal exudate. Cardiovascular: Rate and Rhythm: Normal rate and regular rhythm. Heart sounds: Normal heart sounds. Pulmonary: Effort: Pulmonary effort is normal. No respiratory distress. Breath sounds: No wheezing. Musculoskeletal: Thoracic back: Scoliosis present. Right lower leg: No edema. Left lower leg: No edema. Lymphadenopathy: Cervical: No cervical adenopathy. Skin: General: Skin is warm and dry. Capillary Refill: Capillary refill takes less than 2 seconds. Neurological: General: No focal deficit present. Mental Status: She is alert. ASSESSMENT/PLAN: 1. Asthma-COPD overlap syndrome (HCC) - ICD9: 493.20, ICD10: J44.89 (primary diagnosis) - symptoms currently controlled - continue Wixela and PRN Albuterol - spirometry and oxygen testing reviewed. 2. Restrictive 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 - ICD9: 518.89, 737.43, ICD10: J98.4, M41.9 - 6MWT with no drop in SPO2 - nocturnal testing shows hypoxia for over 30 minutes - see #3 3. Nocturnal hypoxia - ICD9: 327.24, ICD10: G47.34 - currently on 2L at night - [employer] - recheck oxygen on 2L - OXIMETRY - NOCTURNAL F/u scheduled in September 2024 Portions of this documentation were copied and pasted from previous office visit notes in order to provide a cohesive continuity of the history. The note has been reviewed and edited and updated as necessary. Parvin Kaur APRN.LEATHER STITCHER I spent a total of 29 minutes on the date of the service which included preparing to see the patient, [id number] patient care, completing clinical documentation, performing a medically appropriate examination, counseling and educating the patient/family/caregiver, and ordering medications, tests, or procedures. documented in this encounter [facility] 05-07-2024 Note [facility] 05-01-2024 History of Present illness Narrative Radiology Service Progress Note PATIENT NAME: Vandana Mitchell DATE OF SERVICE: May 01, 2024 TIME: 11:25 AM PATIENT IDENTITY VERIFICATION COMPLETED USING TWO (2) IDENTIFIERS: Name and Date of confirmed by patient verbally. FALL SCREENING: Has the patient had 2 falls in the last year or 1 fall with injury or currently using an Ambulatory Assistive Device (Walker, Cane, Wheelchair, Crutches, etc.)? No PATIENT GENDER DATA: Female. status: : No status: NO. PATIENT RELEVANT IMPLANT DATA REVIEWED: Yes PATIENT PRESENTS WITH AN IMPLANTABLE OR ATTACHED LITHOGRAPH PRESS FEEDER: No RADIOLOGY DEPARTMENT: General X-ray: Exam(s) Completed: Upper Extremity X-Ray(s): Shoulder, AP / TRUE AP right Scapular Y view PERIPHERAL IV DATA: Not applicable SIGNED BY: RT Samantha(R) May 01, 2024 11:25 AM documented in this encounter [facility] 05-01-2024 Note [facility] 05-01-2024 Instructions Debbie Constantino APRN.CNP - 05/01/2024 10:18 AM EST Increase the diltiazem. Get the shoulder xray. Recheck in a month -- sooner if needed. documented in this encounter [facility] 05-01-2024 Note [facility] 05-01-2024 History of Present illness Narrative This is a 74 year old female who presents today with: Patient presents with: Recheck: 4 week bp check HISTORY OF PRESENT ILLNESS: Vandana Mitchell is a 74 year old female. Patient presents with: Recheck: 4 week bp check Pt presents today for repeat BP check. She has known white coat syndrome. She checks BPs a homes and runs primarily 120-130's with occ 140's. Home -- 148/75 Manual - 164/80. Swelling of the right shoulder. Noticed a couple of weeks ago. Spongy. Some tenderness. Admits to some rotations d/t scoliosis; however, did not have this anterior shoulder swelling. Anemia Still taking iron twice daily. Blood count improved. Having problems with constipation with the iron. PAST MEDICAL HISTORY: PAST MEDICAL HISTORY Diagnosis Date Arthritis Diastolic dysfunction Grade I Disorder of bone and cartilage, unspecified Diverticulosis 2009 colonoscopy History of transfusion HOCM (hypertrophic obstructive cardiomyopathy) ([facility]) Insomnia, unspecified Melanocytic Nevocellular Nevi pigmented moles [...] to perform definitive test SVT (supraventricular tachycardia) ([facility]) 01/14/2020 Unspecified essential hypertension PAST SURGICAL HISTORY Procedure Laterality Date BACK SURGERY HX BIOPSY BREAST OPEN INCISIONAL left Bx of breast, incisional COLONOSCOPY 03/21/2024 repeat 10 years COLONOSCOPY FLX DX W/COLLJ SPEC WHEN PFRMD 10/27/2004 Colonoscopy COLONOSCOPY FLX DX W/COLLJ SPEC WHEN PFRMD 02/22/2010 Colonoscopy COLONOSCOPY FLX DX W/COLLJ SPEC WHEN PFRMD 03/19/2015 Colonoscopy CORRECT BUNION,SIMPLE CORRECTION [facility] EGD 03/21/2024 EYE SURGERY HX PAST SURGICAL HISTORY OF scoliosis surgery PAST SURGICAL HISTORY OF laser kidney stone PAST SURGICAL HISTORY OF lap hysterectomy. benign ov mass TONSILLECTOMY HX TONSILLECTOMY PRIMARY/SECONDARY <AGE 12 Tonsillectomy ALLERGIES Amoxicillin, Asa [Salicylates], Diclofenac, Iodine, Monistat 1 [Tioconazole], and Shellfish Containing Products MEDICATIONS Current Outpatient Medications Medication Sig fluticasone-salmeterol (WIXELA INHUB) 250-50 mcg/dose inhaler Inhale 1 Puff as instructed two times a day. dilTIAZem CD (CARDIZEM CD, CARTIA XT) 180 mg 24 hr capsule take 1 capsule by mouth once daily docusate sodium (COLACE) 100 mg capsule Take 1 capsule by mouth two times a day as needed for constipation. ferrous sulfate 325 mg (65 mg iron) tablet Take 1 tablet by mouth two times a day with meals. albuterol HFA (VENTOLIN HFA) 90 mcg/actuation inhaler Inhale 2 Puffs as instructed every 4 hours as needed for wheezing/shortness of breath. calcium citrate (CITRACAL ORAL) Take 2 capsules [...] Comment: Occasionally. Drug use: No EXAM: BP 152/82 Pulse 89 Resp 16 SpO2 95% PHYSICAL EXAM: General Appearance: Well appearing, alert, in no acute distress, well-hydrated, well nourished.. Skin: Skin color, texture, turgor normal, no suspicious rashes or lesions. Head: Normocephalic, no masses, lesions, tenderness or abnormalities. Eyes: Anicteric sclera. . Extraocular movements are intact. Lungs: Lungs clear to auscultation. No wheezing, rhonchi, rales.. Heart: RRR without murmur, gallop, or rubs. No ectopy. Extremities: egg sized soft tissue lump on the anterior right shoulder. ASSESSMENT/PLAN: 1. Essential hypertension - ICD9: 401.9, ICD10: I10 (primary diagnosis) - Uncontrolled Home cuff running lower than manual reading. Suspect cuff is too large for her small arm. Will increase diltiazem. Recheck in 1 month. 2. Acute pain of right shoulder - ICD9: 719.41, ICD10: M25.511 ? Possible ganglion vs soft tissue mass. Will get xray. Follow-up pending results. - XR SHOULDER GENERAL 3V OR MORE AP/TRUE AP/OTHER RIGHT 3. Iron deficiency anemia, unspecified iron deficiency anemia type - ICD9: 280.9, ICD10: D50.9 Counts improved. Problems w/ constipation with the iron BID. Will go ahead and decrease iron to daily and recheck count in 1 month. - COMPLETE BLOOD COUNT AND DIFFERENTIAL Discussed treatment plan and patient voices understanding. Patient's questions answered appropriately. Medications and potential side effects were discussed and patient voices understanding. Return to the office as scheduled or as needed for worsening/no improvement. Debbie Constantino APRN.LEATHER STITCHER documented in this encounter [facility] 04-16-2024 History of Present illness Narrative Reason for Visit: Follow Up DATE OF LAST VISIT: 02/06/2024 Vandana Mitchell is a 73 y.o. yo female presenting for follow up. Patient is s/p Laparoscopic assisted vaginal hysterectomy with BSO with Dr. Chery and Uterosacral ligament vaginal vault suspension (intraperitoneal colpopexy), Anterior colporrhaphy [employer] Obtryx II transobturator midurethral sling, and Cystourethroscopy with Dr. Alston on 12/19/2023. She was last seen in office on 02/06/2024 for a post op check. Today she reports that stitches are falling out. She does feel an irrigation in the vaginal area from time to time. 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 CALCIUM-ERGOCALCIFEROL PO Take by mouth. clindamycin 1 % gel Apply topically daily. denosumab (Prolia) 60 MG/ML solution prefilled syringe Inject 60 mg under the skin Once. dilTIAZem CD (Cardizem CD) 180 MG 24 hr capsule Take 180 mg by mouth in the morning. Fluticasone-Salmeterol 250-50 MCG/ACT aerosol powder Inhale 1 puff in the morning and 1 puff in the evening. albuterol 108 (90 Base) MCG/ACT inhaler Inhale 2 puffs every 4 hours as needed. (Patient not taking: Reported on 04/16/2024) melatonin 3 MG tablet Take 3 mg by mouth. (Patient not taking: Reported on 04/16/2024) Multiple Vitamins-Minerals (Centrum Ultra Womens) tablet Take by mouth daily. (Patient not taking: Reported on 04/16/2024) No current facility-administered medications for this visit. Review of Systems EXAM BP (!) 169/77 Pulse 96 Ht 5' 2 (1.575 m) Wt 106 lb 6.4 oz (48.3 kg) No BMI 19.46 kg/m Physical Exam Constitutional: She is oriented to person, place, and time. NAD Cardiovascular: Intact distal pulses Pulmonary/Chest: No respiratory distress. Abdominal: Nonsidstended Neurological: She is alert and oriented to person, place, and time. Skin: Skin is warm and dry. No rash noted. She is not diaphoretic. No erythema. No pallor. Psychiatric: She has a normal mood and affect. Her behavior is normal. Judgment and thought content normal. Pelvic: Vulva: Normal external genitalia. Symmetric labia. No skin lesions or pigmentation changes. Normal Bartholin's and [place]'s glands. Normal external urethral meatus. Vagina: Vaginal atrophy. No epithelial lesions or pigmentation changes. Suture material present. No open lesions or ulcerations noted on exam. Neurologic Exam: Motor and sensory exams grossly normal. Procedure: Suture removal Suture material was removed with forceps and cotton swab. Patient tolerated procedure well. IMPRESSION: 1. Vaginal irritation PLAN: Diagnoses and all orders for this visit: Vaginal irritation - Here for follow up - Vaginal exam revealed surgical sutures - Suture material removed using forceps and cotton swab. Patient tolerated procedure well - Follow up as scheduled and PRN --Bj Allen CNP, PEARL on 04/16/2024 at 10:53 AM Pig Conveyor Operator was offered to the patient for exam. Patient accepted, director medical science in room during exam documented in this encounter [facility] 04-10-2024 Telephone encounter Note S: Patient spoke to [facility] nurse regarding string coming out of vagina. B: Onset of symptoms/concerns 3 weeks ago A: Patient states feeling fishing line coming out of vagina. Describes it as fragile and will break if you touch it. Area feels irritated. Patient denies pain,itching, dryness, redness, sore. Hx. Has urinary sling R: Patient declines advised appointment at this time. Will call back if discharge continues or gets worse. No further needs at this time. Instructed patient to call back with worsening symptoms. Reason for Disposition All other vaginal symptoms (Exceptions: Feels like prior yeast infection, minor abrasion, mild rash < 24 hour duration, mild itching, vaginal dryness during sex.) Protocols used: Vaginal [id number] [facility] 04-10-2024 Miscellaneous Notes S: Patient spoke to [facility] nurse regarding string coming out of vagina. B: Onset of symptoms/concerns 3 weeks ago A: Patient states feeling fishing line coming out of vagina. Describes it as fragile and will break if you touch it. Area feels irritated. Patient denies pain,itching, dryness, redness, sore. Hx. Has urinary sling R: Patient declines advised appointment at this time. Will call back if discharge continues or gets worse. No further needs at this time. Instructed patient to call back with worsening symptoms. Reason for Disposition All other vaginal symptoms (Exceptions: Feels like prior yeast infection, minor abrasion, mild rash < 24 hour duration, mild itching, vaginal dryness during sex.) Protocols used: Vaginal [id number] documented in this encounter [facility] 04-03-2024 Note [facility] 04-03-2024 History of Present illness Narrative Patient presents with: Follow Up HPI: Patient presents today for office visit for follow up . Anemia: Back on iron was off for a few days for C-scope and EGD. Has constipation with the iron. Also has been holding on additional vitamins including calcium because doesn't want to interfere with calcium absorption. Discussed stool softener. Discussed adding vit c. Discussed miralax daily. Weight loss: Weight at this point is stable. Hasn't lost anymore but also hasn't been able to gain. Blood pressure: Brings readings from home. Usually tries to take BP at home daily. Saw honey regarding her breathing and is as good as it will be. No edema or palpitations. MEDICATIONS: Current Outpatient Medications Medication Sig fluticasone-salmeterol (WIXELA INHUB) 250-50 mcg/dose inhaler Inhale 1 Puff as instructed two times a day. dilTIAZem CD (CARDIZEM CD, CARTIA XT) 180 mg 24 hr capsule take 1 capsule by mouth once daily docusate sodium (COLACE) 100 mg capsule Take 1 capsule by mouth two times a day as needed for constipation. ferrous sulfate 325 mg (65 mg iron) tablet Take 1 tablet by mouth two times a day with meals. albuterol HFA (VENTOLIN HFA) 90 mcg/actuation inhaler Inhale 2 Puffs as instructed every 4 hours as needed for wheezing/shortness of breath. calcium citrate (CITRACAL ORAL) Take 2 capsules [...] of Breath Monistat 1 [Tiocona* Intolerance Burning Shellfish Containin* Anaphylaxis PAST MEDICAL HISTORY Diagnosis Date Arthritis Diastolic dysfunction Grade I Disorder of bone and cartilage, unspecified Diverticulosis 2009 colonoscopy History of transfusion HOCM (hypertrophic obstructive cardiomyopathy) ([facility]) Insomnia, unspecified Melanocytic Nevocellular Nevi pigmented moles [...] to perform definitive test SVT (supraventricular tachycardia) ([facility]) 01/14/2020 Unspecified essential hypertension PAST SURGICAL HISTORY Procedure Laterality Date BACK SURGERY HX BIOPSY BREAST OPEN INCISIONAL left Bx of breast, incisional COLONOSCOPY 03/21/2024 repeat 10 years COLONOSCOPY FLX DX W/COLLJ SPEC WHEN PFRMD 10/27/2004 Colonoscopy COLONOSCOPY FLX DX W/COLLJ SPEC WHEN PFRMD 02/22/2010 Colonoscopy COLONOSCOPY FLX DX W/COLLJ SPEC WHEN PFRMD 03/19/2015 Colonoscopy CORRECT BUNION,SIMPLE CORRECTION [facility] EGD 03/21/2024 EYE SURGERY HX PAST SURGICAL HISTORY OF [...] and recommended the following in detail. BP Controlled (<130/80) Never done VITALS: BP 162/82 Pulse 87 Wt 49.4 kg (108 lb 14.5 oz) SpO2 97% BMI 19.92 kg/m Last 4 Encounter Wt Readings: Date: Wt: 04/03/2024 49.4 kg (108 lb 14.5 oz) 04/02/2024 49.1 kg (108 lb 3.2 oz) 03/27/2024 49.4 kg (109 lb) 03/12/2024 49.4 kg (109 lb) PHYSICAL EXAMINATION: General appearance: Well appearing, [...] discoloration, clubbing or cyanosis. Good capillary refill. ASSESSMENT/PLAN: 1. Iron deficiency anemia, unspecified iron deficiency anemia type - ICD9: 280.9, ICD10: D50.9 (primary diagnosis) - add miralax. Recheck cbc in one month. If improving, we will back off or stop iron. If worsens, consider capsule endoscopy to look at small bowel. - COMPLETE BLOOD COUNT AND DIFFERENTIAL 2. Weight loss - ICD9: 783.21, ICD10: R63.4 - follow. Is better. 3. Essential hypertension - ICD9: 401.9, ICD10: I10 Home bp is good. Has been validated a while ago. Do bp check in a month and see if ok. If it is, will go with home bp. Has known white coat hypertension. 4. HOCM (hypertrophic obstructive cardiomyopathy) (HCC) - ICD9: 425.11, ICD10: I42.1 - stable 5. SVT (supraventricular tachycardia) (HCC) - ICD9: 427.89, ICD10: I47.10 - stable. Markus Rascon MD Bp check/validate in one month. Rto in three months. documented in this encounter [facility] 04-02-2024 History of Present illness Narrative FOLLOW UP VISIT - ENDOSCOPY Vandana Mitchell 1950 [id number] REFERRING PHYSICIAN: Daryl Hamlin III [address] [facility] [address] Vandana Mitchell is a patient I am following for REMI, family hx of colon cancer and heme positive stool. Dr. Hamlin performed upper & lower endoscopy on 03/21/24. The patient was found to have EGD Impression: - Z-line irregular, 38 cm from the incisors. Biopsied. - Normal stomach. Biopsied. - Normal examined duodenum. Biopsied. COLONOSCOPY Impression: - Non-bleeding internal hemorrhoids. - Diverticulosis in the sigmoid colon and in the descending colon. - The examined portion of the ileum was normal. - No specimens collected. PATHOLOGY FINAL DIAGNOSIS A. Duodenum, biopsy: - Duodenal mucosa with no significant pathologic changes. B. Stomach, biopsy: - Fundic mucosa with no significant pathologic changes. C. Distal esophagus, biopsy: - Squamous mucosa with no significant pathologic changes. D. Mid esophagus, biopsy: - Squamous mucosa with no significant pathologic changes. The patient notes no complaints since the procedure. VITALS: There were no vitals taken for this visit. General: patient is alert, cooperative, pleasant and in no acute distress On examination, the abdomen is benign. Assessment ASSESSMENT/PLAN: 1. Iron deficiency anemia, unspecified iron deficiency anemia type - ICD9: 280.9, ICD10: D50.9 (primary diagnosis) 2. Family history of colon cancer - ICD9: V16.0, ICD10: Z80.0 The operative findings and pathology report were reviewed with the patient, and the patient has had the opportunity to ask questions and have questions answered. If the patient notes any problems or changes in bowel function, the patient should contact me immediately. Otherwise I recommend follow up upper endoscopy as symptoms dictate & colonoscopy in 5 years. HM updated and recall letter generated. Discussed treatment plan and patient voices understanding. Patient's questions answered appropriately. Medications and potential side effects were discussed and patient voices understanding. Return to the office as scheduled or as needed for worsening/no improvement. Ariane Ramirez APRN.LEATHER STITCHER documented in this encounter [facility] 04-02-2024 Note [facility] 03-27-2024 Note [facility] 03-27-2024 Note [facility] 03-27-2024 History of Present illness Narrative PULM FUNCTION: Provider: Shanita Jackson PA-C Assisting Tech: Leighann Dos Santos RPFT Spirometry: 1 DLCO: 1 LV - Box: 1 6 MW: 1 documented in this encounter [facility] 03-27-2024 History of Present illness Narrative Images from the original note were not included. Patient: Vandana Mitchell PCP: Markus Rascon MD CC: follow up HPI: Vandana Mitchell 73 year old female non-smoker with PMH significant for HTN, MGUS, HOCM, restrictive 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, and asthma. Diagnosed clinically with asthma, unable to perform CARL due to her baseline severe restriction and patient unable to perform Jeannette. Last office visit 11/20/2023. Current maintenance therapy Wixela 250 mcg and as needed Albuterol. Today, patient reports occasional cough, non-productive. No wheezing. Exertional dyspnea with climbing stairs and walking longer distances. States she is unable to keep up with her when they are walking place. No fevers, chills, or night sweats. 30# unintended weight loss since 05/2021. No lower extremity edema. No GERD/heartburn. No recent hospitalizations or ED visits or upper respiratory infections. PAST MEDICAL HISTORY Diagnosis Date Arthritis Diastolic [...] to perform definitive test SVT (supraventricular tachycardia) ([facility]) 01/14/2020 Unspecified essential hypertension Allergies: Amoxicillin Rash Asa [Salicylates] Swelling Comment:lip swelling Diclofenac Shortness of Breath Iodine Shortness of Breath Monistat 1 [Tiocona* Intolerance Comment:Burning dilTIAZem CD (CARDIZEM CD, CARTIA XT) 180 mg 24 hr capsule take 1 capsule by mouth once daily docusate sodium (COLACE) 100 mg capsule Take 1 capsule by mouth two times a day as needed for constipation. ferrous sulfate 325 mg (65 mg iron) tablet Take 1 tablet by mouth two times a day with meals. albuterol HFA (VENTOLIN HFA) 90 mcg/actuation inhaler [...] noted above and updated in EMR. IMMUNIZATIONS Immunization History Administered Date(s) Administered COVID-19 original vaccine, booster dose, monovalent (MODERNA) 12/20/2021 COVID-19 original vaccine, full dose, monovalent (MODERNA) 07/29/2020 08/26/2020 04/08/2021 COVID-19 vaccine, age 12+ yr (MODERNA) 03/30/2023 COVID-19 vaccine, age 12+ yr, bivalent (MODERNA) 03/25/2022 diphtheria tetanus (DT) vaccine, pediatric 10/12/1992 influenza (HD-IIV3) vaccine, age 65+ yr, high dose, trivalent, PF (FLUZONE HIGH-DOSE) 02/26/2016 02/21/2017 03/03/2018 02/14/2019 influenza (HD-IIV4) vaccine, age 65+ yr, high dose, quadrivalent, PF (FLUZONE HIGH-DOSE) 03/25/2020 02/17/2021 03/18/2022 03/03/2023 influenza (IIV3) vaccine, age 6 mo - 64 yr, trivalent (AFLURIA, FLULAVAL, FLUVIRIN, FLUZONE) 03/19/2014 influenza (IIV4) vaccine, age 6 mo - 64 yr, quadrivalent (AFLURIA, FLULAVAL, FLUZONE) 03/25/2015 influenza vaccine, unspecified formulation 04/22/2005 05/17/2006 04/20/2007 04/25/2008 03/23/2009 04/09/2010 04/11/2011 04/14/2012 03/19/2013 pneumococcal conjugate (PCV13) vaccine, 13 valent (PREVNAR 13) 06/23/2014 pneumococcal polysaccharide (PPV23) vaccine, 23 valent (PNEUMOVAX 23) 09/13/2000 08/09/2018 respiratory syncytial virus (RSV) vaccine, adjuvanted (AREXVY) 04/13/2023 tetanus diphtheria pertussis (Tdap) vaccine, age 7+ yr (ADACEL, BOOSTRIX) 07/28/2006 zoster (ZVL) vaccine, live (ZOSTAVAX) 04/30/2012 ROS: All other systems reviewed as negative except for what is noted in HPI and review of systems. PHYSICAL EXAMINATION: BP (P) 132/72 Pulse (P) 85 Resp (P) 16 Wt (P) 49.4 kg (109 lb) SpO2 (P) 95% BMI (P) 19.74 kg/m Gen: No acute distress. Cooperative with examination. HEENT: Normocephalic. Sclera, conjunctiva clear. Oral hygeine and dentition good. No thrush. Chest wall: Significant scoliosis Resp: No stridor, accessory respiratory muscle use, supra-sternal or intercostal retractions. No wheezes, crackles, or rhonchi. CV: Regular rythm. Heart tones normal. Radial pulses normal. Ext: Warm and well perfused. No clubbing, cyanosis, edema. Skin: No rash, ecchymoses. Neuro: Mental status normal. Affect normal. No tremor. DATA: PFT, 03/27/2024: 6MW, 03/27/2024 The patient completed the six minute walk test with 1 stop. Total Duration Of The Stops (seconds): 15. The patient required Room Air to complete the test. The distance the patient walked in six minutes is moderately reduced. The six minute walk distance today demonstrates a clinically significant decrease (255 feet decrease), when compared to the historically highest six minute walk distance from a test dated 12/04/17. Today's distance represents a 25 feet increase compared to the last visit on 06/11/21. The patient perceived their dyspnea during the six minute walk test to be 3-Moderate on the modified Sam scale. The patient perceived their fatigue during the six minute walk test to be 2-Slight on the modified Sam scale. I have reviewed the findings and made appropriate revisions as needed. CT Chest other findings: Last CT Chest - Impression Only CT CHEST WO IVCON Exam End: 01/21/2022 1:20 PM (Final result) Impression: IMPRESSION: No suspicious mass or adenopathy in the chest Scoliosis Extracorporeal Technician: ABHIJIT ... Last XR Chest - Impression Only XR CHEST 2V FRONTAL/LAT Exam End: 11/24/2020 2:56 PM (Final result) Impression: IMPRESSION: No acute radiographic abnormality. ... ASSESSMENT/PLAN: 1. Asthma-COPD overlap syndrome (HCC) - ICD9: 493.20, ICD10: J44.89 (primary diagnosis) Continue Symbicort with as needed Albuterol. - SIX MINUTE WALK - SPIROMETRY BASELINE ONLY - LUNG DIFFUSION CAPACITY (DLCO) - LUNG VOLUMES - OXIMETRY - NOCTURNAL 2. Restrictive 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 - ICD9: 518.89, 737.43, ICD10: J98.4, M41.9 Updated PFTs and 6MW today. Will check nocturnal oximetry with decreased diffusion. No specific intervention. - SIX MINUTE WALK - SPIROMETRY BASELINE ONLY - LUNG DIFFUSION CAPACITY (DLCO) - LUNG VOLUMES - OXIMETRY - NOCTURNAL Shanita Jackson PA-C documented in this encounter [facility] 03-27-2024 Note [facility] 03-21-2024 Nurse Note Patient awoken, still very drowsy, at bedside, encouraging her to keep her eyes open. assisting her to drink her coffee. [facility] 03-21-2024 Nurse Note Patient awoken, still [...] on left side. documented in this encounter [facility] 03-21-2024 History and physical note HISTORY AND PHYSICAL Vandananisha Mitchell 1950 REFERRING PHYSICIAN: Markus Rascon MD [...] 189/82, pulse 91, height 158.2 cm (5' 2.3), weight 49.9 kg (110 lb), SpO2 98%. [...] discussed with the Patient or Patient's Authorized Yarding Engineer. As applicable, any other physician, advance practice provider, medical student, or other health professional student that will be observing or involved in the sensitive examination for educational or training purposes was discussed with the Patient or Authorized Yarding Engineer. The Patient or Authorized Yarding Engineer has agreed to proceed with the sensitive [...] DATE: March 21, 2024 TIME: 11:24 AM [facility] 03-21-2024 History and physical note HISTORY [...] 189/82, pulse 91, height 158.2 cm (5' 2.3), weight 49.9 kg (110 lb), SpO2 98%. [...] discussed with the Patient or Patient's Authorized Yarding Engineer. As applicable, any other physician, advance practice provider, medical student, or other health professional student that will be observing or involved in the sensitive examination for educational or training purposes was discussed with the Patient or Authorized Yarding Engineer. The Patient or Authorized Yarding Engineer has agreed to proceed with the sensitive [...] TIME: 11:24 AM documented in this encounter [facility] 03-21-2024 Note Formatting of this n ote might be different from the original. The patient received a copy of Colonoscopy and EGD discharge instructions that contain information for how to contact the physician who performed the procedure and when to seek medical care. [facility] 03-21-2024 Miscellaneous Notes The patient received a copy of Colonoscopy and EGD discharge instructions that contain information for how to contact the physician who performed the procedure and when to seek medical care. documented in this encounter [facility] 03-21-2024 Note HNO ID: [id number] Author: EMMA BARCENAS RN Service: ? Author Type: Registered Nurse Type: Nursing Progress Note Filed: 03/21/2024 12:12 Note Text: Dr Hamlin at bedside to speak to patient's regarding procedures. [facility] 03-21-[address] Hamlin at bedside to speak to patient's regarding procedures. [facility] 03-21-2024 Nurse Note Patient received in phase II via cart in left lateral position, eyes closed, responds to tactile stimuli, skin warm and dry, very drowsy, respirations regular and unlabored. Abdomen soft and non distended, no grimacing with light palpation of abdomen. brought to bedside with patient. Patient continues to rest on left side. [facility] 03-19-2024 Miscellaneous Notes Patient notified Melony Kaufman Vacuum Bottle Assembler Tell her to stop taking the iron [...] 03/21/2024. Patient can be reached back at [phone]. documented in this encounter [facility] 03-19-2024 Telephone encounter Note Patient notified Melony Kaufman Vacuum Bottle Assembler [facility] 03-19-2024 Telephone encounter Note Tell her to stop taking the iron now she will be fine [facility] 03-19-2024 Telephone encounter Note Patient states [...] 03/21/2024. Patient can be reached back at [phone]. [facility] 03-18-2024 Telephone encounter Note Spoke with patient and advised of information per provider. Patient verbalized understanding. No further questions at this time. Advised to call if any future problems or concerns. Provider message noted. Encounter closed. [facility] 03-18-2024 Miscellaneous Notes Spoke with patient [...] and her inhaler? documented in this encounter [facility] 03-18-2024 Telephone encounter Note OK to take medications as prescribed. [facility] Work Phone: 03-18-2024 Telephone encounter Note Patient having colonoscopy on 03/[address] Hamlin wants to know if she can take diltiazem and her inhaler? [facility] 03-13-2024 Telephone encounter Note Pt requesting [...] Herman LPN March 13, 2024 10:27 AM [facility] 03-13-2024 Miscellaneous Notes Pt requesting a [...] 2024 10:27 AM documented in this encounter [facility] 03-12-2024 Instructions Debbie Constantino APRN.LEATHER STITCHER - 03/12/2024 10:48 AM EDT Get the colonoscopy, as scheduled. Recheck in 2-3 weeks. documented in this encounter [facility] 03-12-2024 Note [facility] 03-12-2024 History of Present illness Narrative This [...] as needed for worsening/no improvement. Debbie Constantino APRN.LEATHER STITCHER documented in this encounter [facility] 03-11-2024 Telephone encounter Note Pt notified of results via [employer] Ofelia Brenner Ma [facility] 03-11-2024 Miscellaneous Notes Pt notified of results via [employer] Ofelia Brenner Ma ----- Message from Rylee Duarte sent at 03/11/2024 1:29 PM EDT ----- Iron level improved. Continue ferrous sulfate. Anemia has improved slightly. documented in this encounter [facility] 03-11-2024 Telephone encounter Note ----- Message from Rylee Duarte sent at 03/11/2024 1:29 PM EDT ----- Iron level improved. Continue ferrous sulfate. Anemia has improved slightly. [facility] 03-05-2024 Note [facility] 03-05-2024 History of Present illness Narrative HISTORY [...] 189/82, pulse 91, height 158.2 cm (5' 2.3), weight 49.9 kg (110 lb), SpO2 98%. [...] Hamlin III, MD documented in this encounter [facility] 02-21-2024 Telephone encounter Note Patient informed and verbalized understanding. Soraida Cheatham MA [facility] 02-21-2024 Miscellaneous Notes Patient informed and verbalized understanding. Soraida Cheatham MA Hold centrum. Given the blood in [...] patient with reply. documented in this encounter [facility] 02-21-2024 Telephone encounter Note Hold centrum. Given the blood in stool and constipation. See surgery as ordered. The anemia may be in part due to surgery but with bowel changes and blood in stool may need more work up. Make sure using a stool softener. [facility] 02-21-2024 Telephone encounter Note Patient reports [...] Please advise and phone patient with reply. [facility] 02-19-2024 Telephone encounter Note Patient notified and verbalizes understanding. PSS please help set her back up with Dr Hamlin. [facility] 02-19-2024 Miscellaneous Notes Patient notified and verbalizes understanding. PSS please help set her back up with Dr Hamlin. Had blood in stool and iron deficiency anemia. Start iron. Follow labs in one month. Needs to see surgery to rule out gi tract blood loss as cause of labs and weight loss. documented in this encounter [facility] 02-19-2024 Telephone encounter Note Had blood in stool and iron deficiency anemia. Start iron. Follow labs in one month. Needs to see surgery to rule out gi tract blood loss as cause of labs and weight loss. [facility] 02-14-2024 Telephone encounter Note Call placed to patient and results and provider message reviewed. Lab appointment scheduled for Monday02/20/2024. Silvana Nunez RN [facility] 02-14-2024 Miscellaneous Notes Call placed to patient and results and provider message reviewed. Lab appointment scheduled for Monday02/20/2024. Silvana Nunez RN Labs show a new anemia. Repeat labs including ifobt in the next week documented in this encounter [facility] 02-14-2024 Telephone encounter Note Labs show a new anemia. Repeat labs including ifobt in the next week [facility] 02-12-2024 Note [facility] 02-12-2024 History of Present illness Narrative Patient [...] from last ov in June. Scheduled tomorrow [facility] bone marrow biopsy. Saw Dr. Nolasco, [...] perform definitive test 01/14/2020: SVT (supraventricular tachycardia) (HCC) No date: Unspecified essential hypertension PAST SURGICAL [...] month and prn. documented in this encounter [facility] 02-06-2024 History of Present illness Narrative Female Pelvic Medicine & Reconstructive Surgery Post-Op Visit Vandana Mitchell is a 73 y.o. female who presents for a 7 week post-op check s/p: 12/19/23 Dr. Chery Laparoscopic assisted vaginal hysterectomy with BSO Dr. Alston Uterosacral ligament vaginal vault suspension (intraperitoneal colpopexy) Anterior colporrhaphy [employer] Obtryx II transobturator midurethral sling Cystourethroscopy [...] lower abdomen or genital region? No 0 Pig Conveyor Operator: Montse Davis MA OBJECTIVE: BP (!) 172/77 [...] Marie Alston MD documented in this encounter [facility] 01-03-2024 Telephone encounter Note Name of caller: Vandana Mitchell Contact phone number: [phone] Relationship to Patient: patient Provider: Dr Alston Practice: [facility] Chief Complaint/Reason for Call: Pt calling to ask what restrictions she is still under from surgery w/ the Pt was seen by Dr Chery & eulogio & this was gone over but pt wanting to be sure. Please advise Best time of day caller can be reached: Any Patient advised that office/PCP has 24-48 business hours to return their call: Yes [facility] 01-03-2024 Miscellaneous Notes Name of caller: Vandana Markley Contact phone number: [phone] Relationship to Patient: patient Provider: Dr Alston Practice: [facility] Chief Complaint/Reason for Call: Pt calling to ask what restrictions she is still under from surgery w/ the Pt was seen by Dr Chery & eulogio & this was gone over but pt wanting to be sure. Please advise Best time of day caller can be reached: Any Patient advised that office/PCP has 24-48 business hours to return their call: Yes documented in this encounter [facility] 01-03-2024 Telephone encounter Note Patient would like to know if 02-26 appointment could be cancelled since she was seen today and was told she wouldn't have to come back. [facility] 01-03-2024 Miscellaneous Notes Patient would like to know if 02-26 appointment could be cancelled since she was seen today and was told she wouldn't have to come back. documented in this encounter [facility] 01-03-2024 History of Present illness Narrative Postop [...] questions were answered. documented in this encounter [facility] 12-27-2023 Telephone encounter Note Faxed to Dr. Chew at [phone] via right fax. Confirmation scanned within media. Rescheduled patient with Radha for post op [facility] 12-27-2023 Telephone encounter Note ----- Message from Leandro Chery MD sent at 12/25/2023 12:50 PM EDT ----- Please fax to Dr. Tariq Chew in [place] and please make sure patient is seeing Otto for postop ----- Message ----- From: [employer] Layla De Sent: 12/25/2023 10:30 AM EDT To: Leandro Chery MD [facility] 12-27-2023 Miscellaneous Notes Faxed to Dr. Chew at [phone] via right fax. Confirmation scanned within media. Rescheduled patient with Radha for post op ----- Message from Leandro Chery MD sent at 12/25/2023 12:50 PM EDT ----- Please fax to Dr. Tariq Chew in [place] and please make sure patient is seeing Otto for postop ----- Message ----- From: [facility] Automated UserLayla Sent: 12/25/2023 10:30 AM EDT To: Leandro Chery MD documented in this encounter [facility] 12-25-2023 Telephone encounter Note Pt called with path [facility] 12-25-2023 Miscellaneous Notes Pt called with path documented in this encounter [facility] 12-24-2023 Note Name of Caller: Nallely holleyanne Best Call Back Number: [phone] What Procedure/Surgery did you have done: Laparoscopic Vaginal Hysterectomy Who was your surgeon: Dr. Chery What date was your surgery?: 12/19/2023 What is the reason for your call today (symptom): Dr. Espinoza from [facility] would like a doctor to doctor consult regarding patient who is currently in the ER at [facility]. Please call [phone] What provider is being paged: Dr. Laskey Time page was sent: 8:10p Page Content: Dr. Espinoza from [facility] would like a doctor to doctor consult regarding patient who is currently in the ER at [facility]. Please call [phone] Name: Vandana REDDING: 48 Call Back Number: [phone] Reason for page (symptom): Doctor to Doctor Consult Name of Surgeon: Dr. Chery Type of Surgery: Laparoscopic Vaginal Hysterectomy Date of Surgery: 12/19/2023 [facility] 12-24-2023 Telephone encounter Note S: Patient spoke with [facility] nurse regarding constipation post op B: [...] increase nausea, constant 5/10 abdominal pain with bloating, difficulty eating due to no appetite due [...] verbalizes understanding and will be driving to [facility] ED at this time. No further needs at this time. Patient instructed to call back with new or worsening symptoms. Reason for Disposition Caller has NON-URGENT question and triager unable to answer question [1] Constant abdominal pain AND [2] present > 2 hours Protocols used: Post-Op Symptoms and Wsyhwuuff-[id number], Mnjcirdndtpi-[id number]-ML [facility] 12-24-2023 Miscellaneous Notes S: Patient spoke with [facility] nurse regarding [...] increase nausea, constant 5/10 abdominal pain with bloating, difficulty eating due to no appetite due [...] verbalizes understanding and will be driving to [facility] ED at this time. No further needs at this time. Patient instructed to call back with new or worsening symptoms. Reason for Disposition Caller has NON-URGENT question and triager unable to answer question [1] Constant abdominal pain AND [2] present > 2 hours Protocols used: Post-Op Symptoms and [id number], Wzdbqardefic-[id number] documented in this encounter [facility] 12-19-2023 Note Formatting of this n ote might be different from the original. Discharge instructions given. Patient and family verbalized understanding. Medications received from pharmacy. IV site removed. Taken via wheelchair for discharge [facility] 12-19-2023 Note Formatting of this n ote might be different from the original. Discharge instructions given. Patient and family verbalized understanding. Medications received from pharmacy. IV site removed. Taken via wheelchair for discharge [facility] 12-19-2023 Miscellaneous Notes Discharge instructions given. Patient and family verbalized understanding. Medications received from pharmacy. IV site removed. Taken via wheelchair for discharge Voiding trial started. 300mL instilled of normal saline. Catheter discontinued. Patient ambulated to restroom with 2 nurse SBA. Patient voided 200mL. OB-REVENUE CYCLE ANALYST resident notified Home going medications given to [...] of her vaginal prolapse. Date: 12/19/2023 Location: [facility] OR Name: Vandana Mitchell, : 1950, Diagnosis [...] VAGINAL HYSTERECTOMY WITH REMOVAL BILATERAL SALPINGO OOPHORECTOMY 81153 - CA LAPS W/VAG HYSTERECT 250 GM/&RMVL TUBE&/OVARIES UTEROSACRAL LIGAMENT SUSPENSION, ANTERIOR/POSTERIOR REPAIR, POSSIBLE SLING PROCEDURE, CYSTOSCOPY 28070 - CA COLPOPEXY VAGINAL INTRAPERITONEAL APPROACH ANTERIOR AND POSTERIOR COLPORRHAPHY 66422 - CA CMBND ANTERPOST COLPORRAPHY W/CYSTO SLING OPERATION FOR STRESS INCONTINENCE 28517 - CA SLING OPERATION STRESS INCONTINENCE CYSTOSCOPY 24448 - CA CYSTOURETHROSCOPY Surgeons Panel 1: * Leandro Chery [...] TUBES AND OVARIES Comment: WEIGHT: 115G Staff: Surveillance Operator: Anamaria Rebolledo RN Scrub Person: Geovanny Johnson; [...] Vancomycin or flouroquinolone) documented in this encounter [facility] 12-19-2023 Note Formatting of this n ote might be different from the original. Voiding trial started. 300mL instilled of normal saline. Catheter discontinued. Patient ambulated to restroom with 2 nurse SBA. Patient voided 200mL. OB-REVENUE CYCLE ANALYST resident notified T [facility] 12-19-2023 Note Formatting of this n ote might be different from the original. Voiding trial started. 300mL instilled of normal saline. Catheter discontinued. Patient ambulated to restroom with 2 nurse SBA. Patient voided 200mL. OB-REVENUE CYCLE ANALYST resident notified [facility] 12-19-2023 Note Formatting of this n ote might be different from the original. Home going medications given to patients family by pharmacy. [facility] 12-19-2023 Note Formatting of this n ote might be different from the original. Home going medications given to patients family by pharmacy. [facility] 12-19-2023 Note Patient: Vandana galvan Procedure Summary Date: 12/19/23 Room / Location: [facility] OR [address] [address] Operating Room Anesthesia Start: 1304 Anesthesia Stop: 1637 Procedures: LAPAROSCOPIC VAGINAL HYSTERECTOMY WITH REMOVAL BILATERAL [...] Chery MD; Marie Alston MD Responsible Provider: Yogi Mauro MD Anesthesia Type: general, regional ASA [...] once all PACU criteria has been met. [facility] 12-19-2023 Note Patient: Vandana galvan Procedure Summary Date: 12/19/23 Room / Location: [place] [address] [facility] Operating Room Anesthesia Start: 1304 Anesthesia Stop: 163 Procedures: LAPAROSCOPIC VAGINAL HYSTERECTOMY WITH REMOVAL BILATERAL [...] Chery MD; Marie Alston MD Responsible Provider: Yogi Mauro MD Anesthesia Type: general, regional ASA [...] opportunity for questions and acknowledgement of understanding. [facility] 12-19-2023 Note Airway Date/Time: 12/19/2023 1:12 [...] 20 Number of attempts at approach: 1 [facility] 12-19-2023 Note Peripheral Block Time Out: 12/19/2023 1:08 PM Patient location during procedure: Procedural Start time: 12/19/2023 1:08 PM End time: 12/19/2023 1:11 PM Reason for block: at surgeon's request and post-op pain management Staffing Performed: ORE SMELTER Resident/ORE SMELTER: Julian Hayes APRN - ORE SMELTER Preanesthetic Checklist Completed: patient identified, IV checked, site marked, risks and benefits discussed, surgical consent, monitors and equipment checked, pre-op evaluation and timeout performed Region: [place] Primary: TAP (Bupivacaine 0.375%/ Epi 1:200,000/ Dex 0.1mg/mL 40ml divided evenly bilateral) Secondary: Upper rectus (Bupivacaine 0.375%/ Epi 1:200,000/ Dex 0.1mg/mL 20ml divided evenly bilateral) Peripheral Block Patient position: supine Prep: ChloraPrep Patient monitoring: heart rate, certified hyperbaric technologist, continuous pulse ox and continuous capnometry O2: [...] plane. and Local anesthetic injected without difficultyMedications wmjIYBMOpxddw-aalojyabsni-jbhtmyjt ine (TAP) syringe - Injection 60 mL - 12/19/2023 1:08:00 PM [facility] 12-19-2023 Note Formatting of this n [...] urogynecology for repair of her vaginal prolapse. [facility] 12-19-2023 Note Formatting of this n ote is different from the original. Date: 12/19/2023 Location: [facility] OR Name: Vandana [...] VAGINAL HYSTERECTOMY WITH REMOVAL BILATERAL SALPINGO OOPHORECTOMY 50649 - CA LAPS W/VAG HYSTERECT 250 GM/&RMVL TUBE&/OVARIES UTEROSACRAL LIGAMENT SUSPENSION, ANTERIOR/POSTERIOR REPAIR, POSSIBLE SLING PROCEDURE, CYSTOSCOPY 36017 - CA COLPOPEXY VAGINAL INTRAPERITONEAL APPROACH ANTERIOR AND POSTERIOR COLPORRHAPHY 24030 - CA CMBND ANTERPOST COLPORRAPHY W/CYSTO SLING OPERATION FOR STRESS INCONTINENCE 46909 - CA SLING OPERATION STRESS INCONTINENCE CYSTOSCOPY 63921 - CA CYSTOURETHROSCOPY Surgeons Panel 1: * Leandro Chery [...] TUBES AND OVARIES Comment: WEIGHT: 115G Staff: Surveillance Operator: Anamaria Rebolledo RN Scrub Person: Geovanny Cheung [...] (two hours if receiving Vancomycin or flouroquinolone) [facility] 12-19-2023 Note Formatting of this n ote [...] urogynecology for repair of her vaginal prolapse. [facility] 12-19-2023 Note Formatting of this n ote is different from the original. Date: 12/19/2023 Location: [facility] OR Name: Vandana Mitchell, : 1950, Diagnosis [...] VAGINAL HYSTERECTOMY WITH REMOVAL BILATERAL SALPINGO OOPHORECTOMY 86935 - CA LAPS W/VAG HYSTERECT 250 GM/&RMVL TUBE&/OVARIES UTEROSACRAL LIGAMENT SUSPENSION, ANTERIOR/POSTERIOR REPAIR, POSSIBLE SLING PROCEDURE, CYSTOSCOPY 75703 - CA COLPOPEXY VAGINAL INTRAPERITONEAL APPROACH ANTERIOR AND POSTERIOR COLPORRHAPHY 55215 - CA CMBND ANTERPOST COLPORRAPHY W/CYSTO SLING OPERATION FOR STRESS INCONTINENCE 28933 - CA SLING OPERATION STRESS INCONTINENCE CYSTOSCOPY 38110 - CA CYSTOURETHROSCOPY Surgeons Panel 1: * Leandro Chery [...] TUBES AND OVARIES Comment: WEIGHT: 115G Staff: Surveillance Operator: Anamaria Rebolledo RN Scrub Person: Geovanny Johnson; [...] (two hours if receiving Vancomycin or flouroquinolone) [facility] 12-19-2023 Note OPERATIVE/PROCEDURE REPORT LOG ID: [id number] Surgery/Procedure Date: 12/19/2023 Incision/Procedure Start Time: 1328 Incision Close/Procedure End Time: 1620 Surgeon(s)/Proceduralist(s) and Assistant Business Manager(s): Primary: Marie Alston MD Resident - Assisting: Lisette Daniels DO; Nga Ruth DO Procedure(s): Uterosacral ligament vaginal vault suspension (intraperitoneal colpopexy) Anterior colporrhaphy [employer] Obtryx II transobturator midurethral sling Cystourethroscopy Anesthesia: [...] the midurethra. The (more content not included)... [facility] 12-19-2023 Hospital Discharge instructions Carmen Pastrana DO - 12/19/2023 12:59 PM EDT Please follow your post operative care instructions given to you by your Bilingual Sales Assistant Oncologist's office at your pre operative visit. Please call the office with questions or concerns and be sure to follow up at your scheduled post operative visit. documented in this encounter [facility] 12-19-2023 Attending History and physical note H&P [...] FOR STRESS INCONTINENCE (Perineum) CYSTOSCOPY (Urethra) Location: [facility] OR Operating Room Surgeons: Leandro Chery [...] SVT / Hypertrophic cardiomyopathy ; F/U WITH [facility] IN [place] UNDER [facility] SEE THE NOTES FROM 05/16/2022 [...] desires concomitant surgical management of her POP. REVENUE CYCLE ANALYST HISTORY: Last Pap: 12/03/15 NILM; Last Mammogram: [...] No date: HOCM (hypertrophic obstructive cardiomyopathy) (CMS/HCC) ([facility]) 08/09/2018: Hypercalcemia 04/05/2016: Incomplete uterovaginal prolapse No [...] (Temporal) Resp 16 Ht 1.588 m (5' 2.5) Wt 50.8 kg (112 lb) SpO2 96% [...] RHYTHM NORMAL ECG Confirmed by MD SHAR [place] () on 09/05/2023 8:26:57 AM ECHO and [...] Shay PA-C Date: 12/14/2023 at 1:48 PM [facility] Work Phone: 12-19-2023 Note H&P reviewed. The victor manuel hu was examined and there are no changes to the H&P. [facility] 12-19-2023 History and physical note H&P reviewed. [...] FOR STRESS INCONTINENCE (Perineum) CYSTOSCOPY (Urethra) Location: [facility] OR [facility] Operating Room Surgeons: Leandro Chery MD; Marie [...] SVT / Hypertrophic cardiomyopathy ; F/U WITH [facility] IN [place] UNDER [facility] SEE THE NOTES FROM 05/16/2022 [...] drug monitoring : # Drug name : MERZEM # Route administered : PO # Method [...] desires concomitant surgical management of her POP. 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 Oneill annually 10/27/2011: Multinodular thyroid 03/18/2020: Non-rheumatic mitral regurgitation Comment: Last ECHO 200901/24/2017: Normal pelvic exam 01/28/2019: Obstructive cardiomyopathy (CMS/HCC) ([facility]) 10/10/2011: Osteoporosis Comment: Seen by and Rosalinda in 2011 No date: PONV (postoperative nausea and vomiting) 01/09/2015: Postmenopausal atrophic vaginitis 01/28/2019: Precordial pain 10/26/2011: Psychophysiological insomnia No date: Pulmonary embolism ([facility]) No date: Renal cyst 07/31/2015: Restrictive lung [...] Small airways disease 01/14/2020: SVT (supraventricular tachycardia) ([facility]) Comment: Per 7d holtor monitor: HR 62-167, [...] (Temporal) Resp 16 Ht 1.588 m (5' 2.5) Wt 50.8 kg (112 lb) SpO2 96% [...] FOR STRESS INCONTINENCE (Perineum) CYSTOSCOPY (Urethra) Location: [facility] OR Operating Room Surgeons: Leandro Chery [...] SVT / Hypertrophic cardiomyopathy ; F/U WITH [facility] IN [place] UNDER [facility] SEE THE NOTES FROM 05/16/2022 [...] desires concomitant surgical management of her POP. 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 Oneill annually 10/27/2011: Multinodular thyroid 03/18/2020: Non-rheumatic mitral regurgitation Comment: Last ECHO 200901/24/2017: Normal pelvic exam 01/28/2019: Obstructive cardiomyopathy (CMS/HCC) ([facility]) 10/10/2011: Osteoporosis Comment: Seen by and Rosalinda in 2011 No date: PONV (postoperative nausea and vomiting) 01/09/2015: Postmenopausal atrophic vaginitis 01/28/2019: Precordial pain 10/26/2011: Psychophysiological insomnia No date: Pulmonary embolism ([facility]) No date: Renal cyst 07/31/2015: Restrictive lung [...] (Temporal) Resp 16 Ht 1.588 m (5' 2.5) Wt 50.8 kg (112 lb) SpO2 96% [...] at 1:48 PM documented in this encounter [facility] 12-19-2023 Attending History and physical note H&P [...] FOR STRESS INCONTINENCE (Perineum) CYSTOSCOPY (Urethra) Location: [facility] OR [facility] Operating Room Surgeons: Leandro Chery MD; Marie [...] SVT / Hypertrophic cardiomyopathy ; F/U WITH [facility] IN [place] UNDER [facility] SEE THE NOTES FROM 05/16/2022 [...] desires concomitant surgical management of her POP. REVENUE CYCLE ANALYST HISTORY: Last Pap: 12/03/15 NILM; Last Mammogram: [...] Normal pelvic exam 01/28/2019: Obstructive cardiomyopathy (CMS/HCC) ([facility]) 10/10/2011: Osteoporosis Comment: Seen by and Rosalinda in 2011 No date: PONV (postoperative nausea and vomiting) 01/09/2015: Postmenopausal atrophic vaginitis 01/28/2019: Precordial pain 10/26/2011: Psychophysiological insomnia No date: Pulmonary embolism ([facility]) No date: Renal cyst 07/31/2015: Restrictive lung [...] Small airways disease 01/14/2020: SVT (supraventricular tachycardia) ([facility]) Comment: Per 7d holtor monitor: HR 62-167, [...] (Temporal) Resp 16 Ht 1.588 m (5' 2.5) Wt 50.8 kg (112 lb) SpO2 96% [...] Shay PA-C Date: 12/14/2023 at 1:48 PM [facility] 12-19-2023 Note H&P reviewed. The victor manuel hu was examined and there are no changes to the H&P. Marie Alston MD [facility] 12-18-2023 Telephone encounter Note Spoke with pt and answered jailene question regarding washing before surgery. [facility] 12-18-2023 Miscellaneous Notes Spoke with pt and answered jailene question regarding washing before surgery. Patient stated they had questions regarding their surgery tomorrow 12/17. Did not mention further details at this time, please contact when able thank you! documented in this encounter [facility] 12-18-2023 Telephone encounter Note Patient stated they had questions regarding their surgery tomorrow 12/17. Did not mention further details at this time, please contact when able thank you! [facility] 12-14-2023 Note Comprehensive PreSur gical History and [...] FOR STRESS INCONTINENCE (Perineum) CYSTOSCOPY (Urethra) Location: [facility] OR Operating Room Surgeons: Leandro Chery [...] SVT / Hypertrophic cardiomyopathy ; F/U WITH [facility] IN [place] UNDER [facility] SEE THE NOTES FROM 05/16/2022 [...] desires concomitant surgical management of her POP. REVENUE CYCLE ANALYST HISTORY: Last Pap: 12/03/15 NILM; Last Mammogram: [...] No date: HOCM (hypertrophic obstructive cardiomyopathy) (CMS/HCC) ([facility]) 08/09/2018: Hypercalcemia 04/05/2016: Incomplete uterovaginal prolapse No [...] & Plan: Major (more content not included)... [facility] 12-14-2023 Note Comprehensive PreSur gical History [...] FOR STRESS INCONTINENCE (Perineum) CYSTOSCOPY (Urethra) Location: [facility] OR [facility] Operating Room Surgeons: Leandro Chery MD; Marie [...] SVT / Hypertrophic cardiomyopathy ; F/U WITH [facility] IN [place] UNDER [facility] SEE THE NOTES FROM 05/16/2022 [...] desires concomitant surgical management of her POP. 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 Oneill annually 10/27/2011: Multinodular thyroid 03/18/2020: Non-rheumatic mitral regurgitation Comment: Last ECHO 200901/24/2017: Normal pelvic exam 01/28/2019: Obstructive cardiomyopathy (CMS/HCC) ([facility]) 10/10/2011: Osteoporosis Comment: Seen by and Rosalinda in 2011 No date: PONV (postoperative nausea and vomiting) 01/09/2015: Postmenopausal atrophic vaginitis 01/28/2019: Precordial pain 10/26/2011: Psychophysiological insomnia No date: Pulmonary embolism ([facility]) No date: Renal cyst 07/31/2015: Restrictive 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 Comment: Last Assessment & Plan: Major (more content not included)... [facility] 12-14-2023 Note Patient: Vandana galvan Procedure [...] FOR STRESS INCONTINENCE (Perineum) CYSTOSCOPY (Urethra) Location: [facility] OR [address] [address] Operating Room Surgeons: Leandro Chery MD; Marie Alston MD Relevant Problems Cardio (+) Bilateral carotid artery stenosis (+) Essential hypertension (+) Mitral valve prolapse (+) Non-rheumatic mitral regurgitation (+) SVT (supraventricular tachycardia) ([facility]) Pulmonary (+) Dyspnea on exertion Cardiovascular (+) Bilateral carotid artery stenosis Past Medical History: Past Medical History: No date: Arthritis 08/09/2018: Bilateral carotid artery stenosis No date: Diastolic dysfunction No date: Diverticulosis 05/31/2019: Dyspnea on exertion 11/18/2005: Essential hypertension 07/06/2011: Family history of colon cancer Comment: 02/22/10- repeat every 5yrs. No date: History of transfusion No date: HOCM (hypertrophic obstructive cardiomyopathy) (CMS/HCC) ([facility]) 08/09/2018: Hypercalcemia 04/05/2016: Incomplete uterovaginal prolapse No date: Insomnia No date: Kidney stone No date: Melanocytic nevi of trunk 03/30/2017: Monoclonal gammopathy Comment: Seeing Dr. Oneill annually 10/27/2011: Multinodular thyroid 03/18/2020: Non-rheumatic mitral regurgitation Comment: Last ECHO 200901/24/2017: Normal pelvic exam 01/28/2019: Obstructive cardiomyopathy (CMS/HCC) ([facility]) 10/10/2011: Osteoporosis Comment: Seen by and Rosalinda in 2011 No date: PONV (postoperative nausea and vomiting) 01/09/2015: Postmenopausal atrophic vaginitis 01/28/2019: Precordial pain 10/26/2011: Psychophysiological insomnia No date: Pulmonary embolism ([facility]) No date: Renal cyst 07/31/2015: Restrictive lung [...] Small airways disease 01/14/2020: SVT (supraventricular tachycardia) ([facility]) Comment: Per 7d holtor monitor: HR 62-167, [...] EGFR 92 12/05/2023 CBC + DIFF Order: [id number] Component Ref Range & Units 2 wk [...] k/uL 1.47 Monocytes % % 8.4 Abs Nash <0.87 k/uL 0.76 (more content not included)... [facility] 12-14-2023 Telephone encounter Note These clearance forms have been returned in media now [facility] 12-14-2023 Miscellaneous Notes These clearance forms have been returned in media now sent Patient asking if she needs cardio and pulm clearance we have her scheduled for 12/18 [address] for Cardio [address] Mariana Russell documented in this encounter [facility] 12-13-2023 Telephone encounter Note Patient notified. She is having PAT testing tomorrow so will look at the calcium level on that lab as well. It will be longer than 1 week before she can get to the lab to recheck her additional lab work. [facility] 12-13-2023 Miscellaneous Notes Patient notified. She [...] Abs Lymph 1.00 - 4.00 k/uL 1.47 Nash% % 8.4 Abs Nash <0.87 k/uL 0.76 Eosin% % 1.2 Abs [...] requested to Dr. Chery office at # [phone]. Called and spoke with pt and she [...] 12/03 and has reviewed them already in [facility]. Please call pt only if any changes need to be made otherwise no call needed. Pt called asking for the results of her Echo on 07/10/23, most recent EGK and results from stress test 10/16/23. Can be sent to Ebony Benoit at Dr. Chery office at [facility]. documented in this encounter [facility] 12-13-2023 Telephone encounter Note Cholesterol is up. Watch cholesterol in the diet. Calcium is slightly up again. Recheck labs in one week [facility] 12-13-2023 Telephone encounter Note Latest Ref [...] Abs Lymph 1.00 - 4.00 k/uL 1.47 Nash% % 8.4 Abs Nash <0.87 k/uL 0.76 Eosin% % 1.2 Abs [...] - 80.0 ng/mL 62.3 Legend: (H) High [facility] 12-13-2023 Telephone encounter Note EKG, echo results and stress test results printed and faxed as requested to Dr. Chery office at # [phone]. Called and spoke with pt and she [...] 12/03 and has reviewed them already in [facility]. Please call pt only if any changes need to be made otherwise no call needed. [facility] 12-12-2023 Telephone encounter Note Pt called asking for the results of her Echo on 07/10/23, most recent EGK and results from stress test 10/16/23. Can be sent to Ebony Benoit at Dr. Chery office at [facility]. [facility] Work Phone: 12-12-2023 Telephone encounter Note sent [facility] 12-12-2023 Telephone encounter Note PAT: 12.14.2023 at [place] 3 pm SX: 12.19.2023 at 12:30 arrival at 10:30 am Post op 01.03.2024 at 10:45 am Folder and instructions given. [facility] 12-12-2023 Miscellaneous Notes PAT: 12.14.2023 at [place] 3 pm SX: 12.19.2023 at 12:30 arrival at 10:30 am Post op 01.03.2024 at 10:45 am Folder and instructions given. documented in this encounter [facility] 12-12-2023 Telephone encounter Note Patient asking if she needs cardio and pulm clearance we have her scheduled for 12/18 Dr pickens Cardio Constance Russell [facility] 12-08-2023 Telephone encounter Note Pt called with CT scan. Surgery not until Jan 16. Would not like to wait so long [facility] 12-08-2023 Miscellaneous Notes Pt called with CT scan. Surgery not until Jan 16. Would not like to wait so long Patient returning missed call, please contact when able, thank you Lvmtcob about CT documented in this encounter [facility] 12-08-2023 Telephone encounter Note Patient returning missed call, please contact when able, thank you [facility] 12-08-2023 Telephone encounter Note Lvmtcob about CT T [facility] 12-05-2023 History of Present illness Narrative Vandana [...] with another patient. documented in this encounter [facility] 11-30-2023 Telephone encounter Note PAT: 08.02.2023 at 11 am SX: 08.14.2023 at 7:30 am arrival at 5:30 am Post op 09..2023 at 10 am Folder and instructions given. [facility] 11-30-2023 Miscellaneous Notes PAT: 08.02.2023 at 11 am SX: 08.14.4 at 7:30 am arrival at 5:30 am Post op 09..2023 at 10 am Folder and instructions given. documented in this encounter [facility] 11-30-2023 History of Present illness Narrative PROCEDURE: [...] on Urodynamic chair. Pre-test urge to void: 10. (Fowler: 1 = no urge to void, [...] Urinary Incontinence [] Intrinsic Sphincter Deficiency [] Igxgkvay-Kypqyfxmp-Ugccfpvmhvu VOIDING FUNCTION: Detrusor Function: [x] Normal [] Reduced [] Absent [] Increased Urethral Function: [x] Normal [] Absent [] Increased Results of testing reviewed with patent after completion of testing. Plan: Follow up with Dr Alston documented in this encounter [facility] 11-30-2023 History of Present illness Narrative PROCEDURE: MULTI-CHANNEL URODYNAMIC TESTING Indication: Occult ALVIN Verbal consent was obtained. Patient identity was confirmed using two identifiers. The planned procedure and procedure site were confirmed. The procedure site was not marked: single-site, no laterality. The patient was correctly positioned for the procedure. All equipment was available before the procedure was begun. Participants: patient, Montse DavisMETHODIST HOSPITAL OF SACRAMENTORupesh Equipment: Danielle BOLES UROFLOWMETRY: Specifications: Performed in [...] Urinary Incontinence [] Intrinsic Sphincter Deficiency [] Ncpnuaco-Ddgvwfzlf-Vnpxbopdkrf VOIDING FUNCTION: Detrusor Function: [x] Normal [] Reduced [] Absent [] Increased Urethral Function: [x] Normal [] Absent [] Increased Results of testing reviewed with patent after completion of testing. Plan: Follow up with Dr Gamaliel CLEMENT Filling and Storage: Bladder sensation is [...] Marie Alston MD documented in this encounter [facility] 11-30-2023 Note PROCEDURE: MULTI-KVNG NNEL URODYNAMIC TESTING Indication: Occult ALVIN Verbal consent was obtained. Patient identity was confirmed using two identifiers. The planned procedure and procedure site were confirmed. The procedure site was not marked: single-site, no laterality. The patient was correctly positioned for the procedure. All equipment was available before the procedure was begun. Participants: patient, Montse NOMI Davis Equipment: Danielle Daniels KT COMPLEX UROFLOWMETRY: Specifications: Performed in sitting position on Urodynamic chair. Pre-test urge to void: 07/15. (Fowler: 1 = no urge to void, [...] Urinary Incontinence [] Intrinsic Sphincter Deficiency [] Rvqxvwua-Wgplnfrai-Brwzknrfztc VOIDING FUNCTION: Detrusor Function: [x] Normal [] Reduced [] Absent [] Increased Urethral Function: [x] Normal [] Absent [] Increased Results of testing reviewed with patent after completion of testing. Plan: Follow up with Dr Gamaliel CLEMENT Filling and Storage: Bladder sensation is [...] void with normal PVR. Marie Alston MD [facility] 11-28-2023 History of Present illness Narrative [...] of her POP. 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 Small airways disease SVT (supraventricular tachycardia) ([facility]) 01/14/2020 Per 7d holtor monitor: HR 62-167, [...] ROS obtained by others. Marie Alston MD Pig Conveyor Operator: Kirsten Sanchez MA OBJECTIVE: Physical Exam BP [...] Post Wall - Stage II Cervix / [place] - Stage I POP-Q: Aa = +3 Ba = +3 C = -4 GH = 3 PB = 2.5 TVL = 8 Ap = -1 Bp = -1 D = -6 Vaginal epithelium: atrophic Cervix: normal appearing cervix without discharge or lesions Urethra: normal appearing urethra with no masses, tenderness or lesions and hypermobile, neg MOVIE THEATER USHER Bimanual: pelvic mass not appreciated Rectovaginal: rectocele [...] we discussed the risks and benefits of [place] tissue vaginal repair with or without uterine preservation versus sacrocolpopexy with mesh (laparoscopic, open). - Vandaan desires to proceed with a [place] tissue vaginal repair at the time of [...] letter via [place] mail. Marie Alston MD Pig Conveyor Operator was offered to the patient for exam. Patient accepted, director medical science in room during exam,KIRSTEN SANCHEZ MA documented in this encounter [facility] 11-28-2023 History of Present illness Narrative Female [...] of her POP. 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 HOCM (hypertrophic obstructive cardiomyopathy) (CMS/HCC) ([facility]) Hypercalcemia 08/09/2018 Incomplete uterovaginal prolapse 04/05/2016 Insomnia Melanocytic nevi of trunk Monoclonal gammopathy 03/30/[address] Oneill annually Multinodular thyroid 10/27/2011 Non-rheumatic mitral regurgitation 03/18/2020 Last ECHO 2009 Normal pelvic exam 01/24/2017 Obstructive cardiomyopathy (CMS/HCC) (HCC) 01/28/2019 Osteoporosis 10/10/2011 Seen by and Rosalinda in 2011 Postmenopausal atrophic vaginitis 01/09/2015 Precordial pain 01/28/2019 Psychophysiological insomnia 10/26/2011 Pulmonary embolism ([facility]) Renal cyst Restrictive lung disease due to [...] kyphoscoliosis. Small airways disease SVT (supraventricular tachycardia) ([facility]) 01/14/2020 Per 7d holtor monitor: HR 62-167, [...] ROS obtained by others. Marie Alston MD Pig Conveyor Operator: Kirsten Sanchez MA OBJECTIVE: Physical Exam BP [...] Post Wall - Stage II Cervix / [place] - Stage I POP-Q: Aa = +3 Ba = +3 C = -4 GH = 3 PB = 2.5 TVL = 8 Ap = -1 Bp = -1 D = -6 Vaginal epithelium: atrophic Cervix: normal appearing cervix without discharge or lesions Urethra: normal appearing urethra with no masses, tenderness or lesions and hypermobile, neg MOVIE THEATER USHER Bimanual: pelvic mass not appreciated Rectovaginal: rectocele [...] we discussed the risks and benefits of [place] tissue vaginal repair with or without uterine preservation versus sacrocolpopexy with mesh (laparoscopic, open). - Vandana desires to proceed with a [place] tissue vaginal repair at the time of [...] letter via US mail. Marie Alston MD Pig Conveyor Operator was offered to the patient for exam. Patient accepted, director medical science in room during exam,KIRSTEN SANCHEZ MA documented in this encounter [facility] 11-27-2023 Telephone encounter Note Patient has not heard from uro workforce advisor [facility] 11-27-2023 Miscellaneous Notes Patient has not heard from uro workforce advisor Spoke to patient and reviewed prep for ct including benadryl 50mg I hour prior to CT. She verbalizes understanding. Patient is scheduled for CT scan on 12/06/23 in [place]. Has allergy to contrast. Please send in rx to pharmacy. She uses [facility] in [place]. Thank you! documented in this encounter [facility] 11-24-2023 Telephone encounter Note Spoke to patient and reviewed prep for ct including benadryl 50mg I hour prior to CT. She verbalizes understanding. [facility] 11-24-2023 Telephone encounter Note Patient is scheduled for CT scan on 12/06/23 in [place]. Has allergy to contrast. Please send in rx to pharmacy. She uses [facility] in [place]. Thank you! [facility] 11-24-2023 Telephone encounter Note Patient requesting callback with status update on CT being scheduled, please contact when able, thank you [facility] 11-24-2023 Miscellaneous Notes Patient requesting callback with status update on CT being scheduled, please contact when able, thank you documented in this encounter [facility] 11-22-2023 History of Present illness Narrative ctHPI: [...] kyphoscoliosis. Small airways disease SVT (supraventricular tachycardia) ([facility]) 01/14/2020 Per 7d holtor monitor: HR 62-167, [...] Maternal Grandmother No hx DVT PE or ID Social History Socioeconomic History Marital status: Tobacco Use Smoking status: Never Smokeless tobacco: Never Substance and Sexual Activity Alcohol use: Yes Comment: social Drug use: Never Social Determinants of Health Financial Resource Strain: Patient Declined (09/12/2022) Received from [facility] Overall Financial Resource Strain (CARDIA) Difficulty of Paying Living Expenses: Patient declined Food Insecurity: No Food Insecurity (09/12/2022) Received from [facility] Hunger Vital Sign Worried About Running Out of Food in the Last Year: Never true Ran Out of Food in the Last Year: Never true Transportation Needs: No Transportation Needs (09/12/2022) Received from [facility] PRAPARE - Transportation Lack of Transportation (Medical): No Lack of Transportation (Non-Medical): No Social Connections: Unknown (09/12/2022) Received from [facility] Social Connection and Isolation Panel [NHANES] Frequency of Communication with Friends and Family: Patient declined Frequency of Social Gatherings with Friends and Family: Patient declined Attends Islam Services: Patient declined Attends Club or Organization Meetings: Patient declined Marital Status: Housing Stability: Low Risk (09/12/2022) Received from [facility], [facility] Housing Stability Vital Sign Unable to Pay for Housing in the Last Year: No Number of Places Lived in the Last Year: 1 In the last 12 months, was there a time when you did not have a steady place to sleep or slept in a residential (including now)?: No Current Outpatient Medications Medication [...] 176/86 Pulse 87 Ht 1.588 m (5' 2.5) Wt 50.3 kg (111 lb) BMI 19.98 kg/m Physical Exam: Physical Exam Vitals and nursing note reviewed. Exam conducted with a reeler operator present. Constitutional: Appearance: Normal appearance. Cardiovascular: Rate [...] was 45 minutes documented in this encounter [facility] 11-22-2023 Note ctHPI: Vandana Mitchell is a [...] kyphoscoliosis. Small airways disease SVT (supraventricular tachycardia) ([facility]) 01/14/2020 Per 7d holtor monitor: HR 62-167, [...] Maternal Grandmother No hx DVT PE or ID Social History Socioeconomic History Marital status: Tobacco Use Smoking status: Never Smokeless tobacco: Never Substance and Sexual Activity Alcohol use: Yes Comment: social Drug use: Never Social Determinants of Health Financial Resource Strain: Patient Declined (09/12/2022) Received from [facility] Overall Financial Resource Strain (CARDIA) Difficulty of Paying Living Expenses: Patient declined Food Insecurity: No Food Insecurity (09/12/2022) Received from [facility] Hunger Vital Sign Worried About Running Out of Food in the Last Year: Never true Ran Out of Food in the Last Year: Never true Transportation Needs: No Transportation Needs (09/12/2022) Received from [facility] PRAPARE - Transportation Lack of Transportation (Medical): No Lack of Transportation (Non-Medical): No Social Connections: Unknown (09/12/2022) Received from [facility] Social Connection and Isolation Panel [NHANES] Frequency of Communication with Friends and Family: Patient declined Frequency of Social Gatherings with Friends and Family: Patient declined Attends Islam Services: Patient declined Attends Club or Organization Meetings: Patient declined Marital Status: Housing Stability: Low Risk (09/12/2022) Received from [facility], [facility] Housing Stability Vital Sign Unable to Pay for Housing in the Last Year: No Number of Places Lived in the Last Year: 1 In the last 12 months, was there a time when you did not have a steady place to sleep or slept in a residential (including now)?: No Cu (more content not included)... [facility] 11-20-2023 History of Present illness Narrative [...] office visit 03/30/[address] Russell recommended decreasing Symbicort dosing to 80/4.5. However, patient was reluctant to do so. Current maintenance therapy Wixela 250/50 mcg and as needed Albuterol. Today, patient reports variable cough, not every day. Typically non-productive. No wheezing. Exertional dyspnea with [...] History of transfusion HOCM (hypertrophic obstructive cardiomyopathy) ([facility]) Insomnia, unspecified Melanocytic Nevocellular Nevi pigmented moles [...] to perform definitive test SVT (supraventricular tachycardia) ([facility]) 01/14/2020 Unspecified essential hypertension Allergies: Amoxicillin Rash [...] Shanita Jackson PA-C documented in this encounter [facility] 11-20-2023 Note [facility] 10-23-2023 Telephone encounter Note Patient has been [...] Please advise. Thank you. Shwetha Irby RN. [facility] 10-23-2023 Miscellaneous Notes Patient has been [...] Shwetha Irby RN. documented in this encounter [facility] 10-16-2023 Telephone encounter Note Patient was made aware of the results. Patient verbalizes understanding. She will monitor her blood pressures and if she notices any changes, will make sooner appt with PCP. She denies any current chest pain, advised that if having chest pains again to call back in. Pt agreeable. Jada Albright Ma [facility] 10-16-2023 Miscellaneous Notes Patient was made aware of the results. Patient verbalizes understanding. She will monitor her blood pressures and if she notices any changes, will make sooner appt with PCP. She denies any current chest pain, advised that if having chest pains again to call back in. Pt agreeable. Jada Albright Ma Please let patient know that her [...] not until June. documented in this encounter [facility] 10-16-2023 Telephone encounter Note Please let [...] a cardiology follow-up but not until June. [facility] Work Phone: 10-16-2023 History of Present illness Narrative RADIOLOGY SERVICE PROGRESS NOTE SERVICE DATE: 10/16/2023 SERVICE TIME: 814 PATIENT IDENTITY VERIFICATION COMPLETED USING TWO (2) METHODS: Patient confirmed name and Date of verbally. ALLERGIES AND MEDICATIONS REVIEWED BY: Grecia Fine RN PROCEDURE TYPE: NM STRESS: 0.4 mg of Lexiscan was administered IV at 0822 over 10 Seconds by Grecia Fine RN Reversal agent used:None LOT [id number] EXP 06/05/25 IV SITE: IV palced by nuclear tecnologist POST EXAM PIV STATUS: Discontinued by Stallion Keeper PATIENT DISCHARGED TO: Nuclear Medicine Department for post stress imaging A Diagnostic radioactive procedure has taken place, with no further precautions necessary other than routine body substance precautions. More information regarding radiation safety can be found using this link: [email or web address] %[email or web address] SIGNATURE: Grecia Fine RN PATIENT NAME:Vandana Mitchell DATE: 10/16/23 TIME: 10:31 AM documented in this encounter [facility] 10-16-2023 History of Present illness Narrative [...] PATIENT PRESENTS WITH AN IMPLANTABLE OR ATTACHED LITHOGRAPH PRESS FEEDER: n/a CREATININE: Creatinine Date Value Ref Range [...] Discontinued PROCEDURE TYPE: NM Stress: 13.6 mCi [id number] was administered IV for Rest Imaging at 07:20 by Stephany Katz. 34.7 mCi [id number] was administered IV for Stress Imaging at 08:22 by Stephany Katz. ADMINISTRATION TIME: PATIENT DISCHARGED TO: Ambulatory patient, left NM department area. A Diagnostic radioactive procedure has taken place, with no further precautions necessary other than routine body substance precautions. More information regarding radiation safety can be found using this link: [email or web address]-%[email or web address]%20Nuclear %20Medicine%[email or web address] SIGNATURE: RT Elise(R) PATIENT NAME: Vandana Mitchell DATE: October 16, 2023 TIME: 10:00 AM PAGER/CONTACT #: documented in this encounter [facility] 10-11-2023 Telephone encounter Note ROSALIE: 03/30/23 [facility] 10-11-2023 Miscellaneous Notes ROSALIE: 03/30/23 Patient [...] you. Cherelle Lawrence. documented in this encounter [facility] 10-11-2023 Telephone encounter Note Patient has [...] 10/16/23 Please advise. Thank you. Cherelle Lawrence. [facility] 09-07-2023 Miscellaneous Notes Patient informed and verbalized understanding. Soraida Cheatham MA Please let patient know that her failure analysis technician sent me back a message stating that he agreed with the stress test. Her ionized calcium was a tiny bit over normal. That is likely because of her calcium replacement. Her parathyroid hormone, vitamin D level, and thyroid functions were normal. No other changes are needed. documented in this encounter [facility] 09-05-[address] Means please see below econsult request received from Rylee Hernandez APRN.CNS, APRN.CNS to P HVI RESOURCE NURSE ANA 09/04/23 12:26 PM If the patient has an established Jewel Flat Surfacer, please communicate patient concern(s) directly to his/her [...] E-Consult request to the [facility]. Provided by: Rylee Duarte APRN.CNS Location: [address] [address] Dept: [phone] A Jewel Flat Surfacer will respond to your E-Consult request in approximately 1 business day. For responses not requiring a face to face consult, It is the responsibility of the requesting provider to communicate HVI opinions back to the patient. documented in this encounter [facility] 09-05-2023 Miscellaneous Notes Patient was made aware of the results. Patient verbalizes understanding. She will stop by lab today or tomorrow. Jada Albright Ma Please let patient know that her [...] have been placed. documented in this encounter [facility] 09-04-2023 Miscellaneous Notes Addended by: RYLEE DUARTE on: 09/04/2023 12:39 PM Modules accepted: Orders Addended by: RYLEE DUARTE on: 09/04/2023 12:27 PM Modules accepted: Orders documented in this encounter [facility] 09-04-2023 Instructions Rylee Duarte APRN.CNS - 09/04/2023 11:29 AM EDT 1) Check labs 2) Check ECG 3) E-consult sent to Dr. Nolasco 4) Stress test ordered 5) Follow up with Dr. Rascon in December, labs in November documented in this encounter [facility] 09-04-2023 History of Present illness Narrative This [...] last week. Chest pain yesterday. Was cooking [facility] dinner for herself and . Cooking does [...] Known Hypertrophic CM No familiy Hx of ID PAST MEDICAL HISTORY: PAST MEDICAL HISTORY Diagnosis Date Arthritis Diastolic dysfunction Grade I Disorder of bone and cartilage, unspecified Diverticulosis 2009 colonoscopy History of transfusion HOCM (hypertrophic obstructive cardiomyopathy) ([facility]) Insomnia, unspecified Melanocytic Nevocellular Nevi pigmented moles [...] to perform definitive test SVT (supraventricular tachycardia) ([facility]) 01/14/2020 Unspecified essential hypertension PAST SURGICAL HISTORY [...] with the plan. documented in this encounter [facility] 08-29-2023 Miscellaneous Notes Patient phones to reports her insurance formulary covers Wixela inhub AER 250/50. She is requesting a change if this is acceptable replacement for Dulera. Her pharmacy is [facility] in [place]. Patient requesting to be notified by phone if the change is made. Shanita Alvarado MA documented in this encounter [facility] 07-18-2023 Miscellaneous Notes CD READY FOR [facility] Pt is aware Patient is requesting Bone density copied to a CD for burr picker 03/07/23 documented in this encounter [facility] 07-10-2023 History of Present illness Narrative Vandana [...] evaluation. Additional Prevention Measures:offered assistance with transfers/clothing Grecia Fine RN documented in this encounter [facility] 05-15-2023 History of Present illness Narrative Diagnosis: [...] C (99.3 F), height 158.2 cm (5' 2.3), weight 52.6 kg (116 lb), SpO2 97%. [...] No jaundice or rash. No petechiae. NEUROLOGIC: press operator helper II-XII are grossly intact. No focal motor [...] Abs Lymph 1.00 - 4.00 k/uL 1.51 Nash% % 9.1 Abs Nash <0.87 k/uL 0.67 Eosin% % 1.6 Abs [...] which included preparing to see the patient, [id number] patient care, completing clinical documentation, obtaining and/or reviewing separately obtained history, performing a medically appropriate examination, counseling and educating the patient/family/caregiver, ordering medications, tests, or procedures, communicating with other HCPs (not separately reported), and communicating results to the patient/family/caregiver. Danny Oneill DO documented in this encounter [facility] 05-09-2023 History of Present illness Narrative [...] 2023 8:53 AM documented in this encounter [facility] 04-24-2023 Miscellaneous Notes Called patient- Breo, Advair, Dulera, generic Advair, Wixela. [facility]. Juany Iraheta LPN documented in this encounter [facility] 03-30-2023 History of Present illness Narrative Images from the original note were not included. . [facility] Note Patient name: Vandana Mitchell PCP: Markus [...] No intervention. -No need for supplemental oxygen. Mariana Russell MD [facility] documented in this encounter [facility] 03-07-2023 History of Present illness Narrative Radiology [...] 2023 10:31 AM documented in this encounter [facility] 01-10-2023 Miscellaneous Notes Patient has been identified by name and date of : Yes Patient phones for refill(s): Requested Prescriptions Pending Prescriptions Disp Refills budesonide-formoterol (SYMBICORT) 160-4.5 mcg/actuation inhaler 10.2 g 5 Sig: Inhale 2 Puffs as instructed twice daily. Date of last office visit in primary care: 11/17/2022 Please advise. Thank you. Rylee Tse LPN documented in this encounter [facility] 01-10-2023 History of Present illness Narrative POPULATION HEALTH NAVIGATION OUTREACH Action/FYI LVM MYCHART MESSAGE SENT ANNUAL MEDICARE WELLNESS EXAM Patient Identified by Name and : NO Outreach Outcome/Action Unable to reach patient: Left message MyChart message sent Did you use a PCP [...] 2023 8:43 AM documented in this encounter [facility] 11-17-2022 History of Past i llness [...] of this encounter (statuses as of 07/11/2023) [facility] History of Past illness Narrative* Problem [...] of this encounter (statuses as of 07/28/2023) [facility] History of Past illness Narrative* Problem [...] unspecified 12/04/2019 Overview: Seen by 07/2011 - Ozzyamax resumed. documented as of this encounter (statuses as of 08/29/2023) [facility] History of Past illness Narrative* Problem [...] of this encounter (statuses as of 09/04/2023) [facility] History of Past illness Narrative* Problem [...] of this encounter (statuses as of 09/05/2023) [facility] History of Past illness Narrative* Problem Noted Date Diagnosed Date Resolved Date Epistaxis 11/17/2022 06/13/2023 Greater trochanteric bursitis 03/18/2022 09/16/2022 Age-related osteoporosis wit hout current pathological fracture 09/10/2021 06/13/2023 Murmur 10/05/2020 09/16/2021 Screening for colon cancer 09/24/2020 0 09/24/2020 Dyspnea on exertion 05/31/2019 09/17/19 23 Precordial pain 01/28/2019 09/16/2022 Mitral valve prolapse 08/09/20182022 Normal pelvic exam 01/24/2017 Muscle weakness 02/16/2015 07/21/2016 Complete uterovaginal prolapse 01/09/2015 03/30/2016 Pelvic muscle wasting 01/09/20152018 Other pulmonary embolism and infarction 07/25/2012 07/21/2016 Bursitis of right shoulder 10/10/2011 0 08/09/2018 Cervicalgia 08/28/2007 08/09/2018 Overview: Intermittent symptoms GENERAL OSTEOARTHROSIS 11/18/200507/03 Unspecified asthma(493.90) 1 06/11/2010 Disorder of bone and cartilage, unspecified 12/04/2019 Overview: Seen by 07/2011 - Fosamax resumed. documented as of this encounter (statuses as of 09/05/2023) [facility] History of Past illness Narrative* Problem [...] of this encounter (statuses as of 09/07/2023) [facility] History of Present illness Narrative* Markus [...] Abs Lymph 1.00 - 4.00 k/uL 1.42 Nash% % 7.3 Abs Nash <0.87 k/uL 0.62 Eosin% % 0.9 Abs [...] CONTROLLED (<130/80) Never done MAMMOGRAM - per workforce advisor. VITALS: BP 136/58 Pulse 85 Ht 158.8 cm (5' 2.5) Wt 54.2 kg (119 lb 6.4 oz) [...] References: 1. Folstein MF, Folstein SE, Marshal CA. Mini-Mental State: a practical method for grading the cognitive state of patients for the clinician. J Psychiatr Res. 1975; 12:189-198. 2. Benjamin, JR, Folstein MF, Mini-Mental State Examination (MMSE). Psychopharm Bull. 1988;24:689-692. 3. John JT, Armando FJ, Madonna RD, Manish A, Talat F. Neuropsychological function in Alzheimer's disease: pattern of impairment and rates of progression. Arch Neurol. 1988;45:263-268. 4. Steffi JA, Chery B,Ryan SMaureenP, Puja MENEZES. Predictors of cognitive and functional progression in patients with probable Alzheimer's disease. Neurology. 1992;42:7960-5447. ASSESSMENT/PLAN: 1. Forgetfulness - ICD9: 780.99, ICD10: [...] stable. Markus Rascon MD [facility] History of Present illness Narrative* Shanita Jackson PA-C - 09/26/2022 10:04 AM EDT [...] in EMR. IMMUNIZATIONS Prevnar - 06/23/2014 Pneumovax - 08/19/2018, 09/13/2000 Influenza - 03/18/2022 COVID-19 [...] Electronically Signed On 12-08-2020 13:52:09 EDT by Mariana Russell M.D. PFT, 11/30/2020 IMPRESSION: Spirometry shows no obstruction.The reduced FVC suggests restriction. Recommend lung volumes if clinically indicated. The presence of a reduced lung diffusion capacity - that normalizes when measured independent of alveolar volume (kCO) is consistent with a nonparenchymal disorder but does not rule out parenchymal or pulmonary vascular disorder. Electronically Signed On 11-30-2020 16:02:36 EDT by Mariana Russell M.D. CT chest, 01/21/2022 IMPRESSION: No suspicious [...] therapy. Shanita Jackson PA-C [facility] Miscellaneous Notes* Telephone Encounter - Markus Rascon MD - 09/19/2022 8:14 AM EDT Labs are ok other than sugars are slightly up. Recheck a1c. documented in this [facility] History of Present illness Narrative* Markus [...] on 06/05/2022 MAMMOGRAM - getting done per workforce advisor. VITALS: BP 142/72 Pulse 102 Wt 54.9 [...] two months and prn. documented in this [facility] Miscellaneous Notes* Telephone Encounter - Shanita Alston LPN - 07/14/2022 10:15 AM EST Clearance form received from [facility]. Form placed in Dr. Nolasco's door box, form also scanned in. Shanita Alston LPN documented in this encounter[facility] History of Present illness Narrative* Clary Nolasco MD - 05/16/2022 4:59 PM EST Images from the original note were not included. Clary Nolasco MD Interventional Cardiology [facility] [address] [place], [place] [address] [phone] Chief Complaint Patient presents with: Established Patient [...] mL injection (DEFINITY) INTRAVENOUS DIRECTED PRN Debbie Constantino, SOFTWARE ENGINEERING SPECIALIST.LEATHER STITCHER sodium chloride 0.9 % (flush) 10 mL (BD POSIFLUSH) 10 mL INTRAVENOUS DIRECTED PRN Debbie Constantino APRN.LEATHER STITCHER Review of Systems Constitutional: Negative for chills, [...] to correct any errors. documented in this encounterW[facility]12-[facility] History of Present illness Narrative* Danny [...] No jaundice or rash. No petechiae. NEUROLOGIC: press operator helper II-XII are grossly intact. No focal motor [...] Abs Lymph 1.00 - 4.00 k/uL 1.34 Nash% % 9.4 Abs Nash <0.87 k/uL 0.64 Eosin% % 1.9 Abs [...] Staff Review Reviewed by Alberto Tillman MD ([id number]) Reviewed by Tavon Kaur MD ([id number]) Reviewed by Tavon Kaur MD ([id number]) Reviewed by Mariana Bell M.D., Ph.D ([id number]) Reviewed by Mel Garcia MD ([id number]) Reviewed by Carmen Holm MD Component Latest Ref Rng & Units 03/30/2017 04/02/2018 04/09/2018 03/19/2019 04/08/2020/06/2021 IgG 717 - 1,411 mg/dL 1,170 IgA 78 - 391 mg/dL 118 IgM 53 - 334 mg/dL 54 [place] Free, Serum 3.3 - 19.4 mg/L 13.7 [...] COMMENT SEE COMMENT SEE COMMENT Staff Review (MPA) Reviewed by Tavon Kaur MD ([id number]) Reviewed by Tavon Kaur MD ([id number]) Reviewed by Mariana Bell M.D., Ph.D ([id number]) Reviewed by Mel Garcia MD ([id number]) MPA IgG, Serum 700 - 1,600 mg/dL [...] care. Danny Oneill DO documented in this encounterW[facility]12-[facility] Nurse Note* Norma Olivier LPN - 05/12/2022 9:17 AM EST Est. Pt, 1 year f/u, discuss recent labs and bone survey Norma Olivier LPN documented in this encounterW[facility]11[facility] History of Present illness Narrative* Shannan Montemayor, RT(R) - 05/02/2022 1:00 PM EST Radiology Service [...] 02, 2022 1:40 PM documented in this encounterWad[facility]10[facility] History of Present illness Narrative* Mariana Russell MD - 03/22/2022 10:00 AM EDT Images from the original note were not included. . [facility] Note Patient name: Vandana Mitchell PCP: Markus [...] for eosinophilia. Currently she is back to [facility] respiratory status. Denies significant shortness [...] Ref Range & Units 2 mo ago (7/20/22) WBC 3.70 - 11.00 k/uL 9.28 RBC [...] Abs Lymph 1.00 - 4.00 k/uL 1.60 Nash% % 14.3 Abs Nash <0.87 k/uL 1.33 High Eosin% % 7.3 Abs Eosin <0.46 k/uL 0.68 High Baso% % 2.0 Abs Baso <0.11 k/uL 0.19 High Immature Gran % % 0.4 Abs Immature Gran <0.10 k/uL 0.04 NRBC /100 WBC 0.0 Absolute nRBC <0.01 k/uL <0.01 Diff Type Auto Imaging / Diagnostic Studies: DATE OF EXAM: Jan 21 2022 1:20PM [facility] 0541 - CT CHEST WO IVCON / [...] atelectasis on chest CT -No specific therapy Mariana Russell MD Respiratory Tavernier documented in this encounterWadsworth-[facility]10-14-[facility] History of Past illness Narrative* Problem [...] of this encounter (statuses as of 09/16/2022) [facility] Narrative* Problem [...] of this encounter (statuses as of 09/19/2022) [facility] Narrative* Problem [...] of this encounter (statuses as of 09/26/2022) [facility] Narrative* Problem [...] of this encounter (statuses as of 11/17/2022) [facility] Narrative* Problem [...] of this encounter (statuses as of 01/10/2023) [facility] Narrative* Problem [...] of this encounter (statuses as of 01/11/2023) [facility] Narrative* Problem [...] unspecified 12/04/2019 Overview: Seen by 07/2011 - [employer] resumed. documented as of this encounter (statuses as of 02/14/2023) [facility] illness Narrative* Problem [...] of this encounter (statuses as of 03/04/2023) [facility] Narrative* Problem [...] of this encounter (statuses as of 03/30/2023) [facility] Narrative* Problem [...] of this encounter (statuses as of 04/09/2023) [facility] Narrative* Problem [...] of this encounter (statuses as of 04/24/2023) [facility] Narrative* Problem [...] of this encounter (statuses as of 05/09/2023) [facility] Narrative* Problem [...] of this encounter (statuses as of 05/10/2023) [facility] Narrative* Problem [...] of this encounter (statuses as of 05/15/2023) [facility] of Present illness Narrative* Markus [...] breathing changes. Had some indigestion. And tummy rumbling. Had epigastric discomfort as well but went away after belching and burping. Has been fine since. No left sided chest pain or chest pain with exertion. Saw uro workforce advisor after finding blood. Did ct with contrast [...] ov: CARDIO: Just recently saw Cardio in [place]. Next appt in May. Bilat swelling in [...] 154/78 Pulse 94 Ht 158.8 cm (5' 2.5) Wt 55.3 kg (122 lb) SpO2 96% [...] stable. Markus Rascon MD documented in this encounterWadsworth-Rittman [facility]09-15-2022 Miscellaneous Notes* Telephone Encounter - May [...] PCP. Di Dobson LPN documented in this encounterWadsworth-Rittman Hospital09-15-2022 History of Present illness Narrative* Di [...] PCP. Di Dobson LPN documented in this encounterWadsworth-Rittman Hospital09-06-2022 Miscellaneous Notes* Telephone Encounter - Shanita [...] Holm outside of [facility]. documented in this encounterWadsworth-Rittman Hospital08-26-2022 Miscellaneous Notes* Telephone Encounter - Soraida Cheatham - 01/28/2022 11:32 AM EDT US Result faxed to Dr. Holm at [phone]. Soraida Cheatham * Telephone Encounter - Soraida Cheatham - 01/28/2022 11:25 AM EDT Patient informed and verbalized understanding. Patient did see Dr. Holm on Monday01/25/22. Calling for them to fax us report and also faxing them US results. Soraida Cheatham * Telephone Encounter - Markus Rascon MD - 01/28/2022 10:18 AM EDT Us confirms the cysts. Did she see Dr. Holm? Can we fax results to her. If she saw her can we get me a copy of the visit documented in this encounterWadsworth-Rittman Hospital08-23-2022 Miscellaneous Notes* Telephone Encounter - Jo Ann Herman LPN - 01/25/2022 2:13 PM EDT Spoke with pt and information listed below given. Pt verbalizes understanding. Pt was seen by a Urologist today 01-25-22. Dr. Holm wanted her to have Renal US done. Pt sent to planner/scheduler. Pt will be having a bladder scan [...] ultrasound for better pictures. documented in this encounterWadsworth-Rittman Hospital08-22-2022 Miscellaneous Notes* Telephone Encounter - ANDREW Horowitz - 01/24/2022 4:20 PM EDT Faxed / release in syngo * Telephone Encounter - Shanita Mitchell - 01/24/2022 2:44 PM EDT Pt has appt tomorrow morning with Dr. Holm. She requests the radiology report from her CT ABD/PEL be faxed over to [phone] before her appt. documented in this encounterWadsworth-Rittman Hospital08-19-2022 History of Present illness Narrative* RT [...] 21, 2022 1:21 PM documented in this encounterWadsworth-Rittman Hospital08-16-2022 Miscellaneous Notes* Telephone Encounter - Rylee Tse LPN - 01/18/2022 10:24 AM EDT Patient notified. Verbalized understanding. She has a CT scheduled for 01/21/22. Was seen by a urologist/workforce advisor a few years ago, would like to [...] seeing urology for hematuria. documented in this encounterWadsworth-Rittman Hospital08-15-2022 History of Present illness Narrative* Markus [...] ov: CARDIO: Just recently saw Cardio in [place]. Next appt in May. Bilat swelling in [...] Abs Lymph 1.00 - 4.00 k/uL 1.60 Nash% % 14.3 Abs Nash <0.87 k/uL 1.33 (H) Eosin% % 7.3 [...] History of transfusion HOCM (hypertrophic obstructive cardiomyopathy) ([facility]) Insomnia, unspecified Melanocytic Nevocellular Nevi pigmented moles [...] RTO in two months documented in this encounterWadsworth-Rittman Hospital07-15-2022 History of Present illness Narrative* Markus Rascon MD - 12/17/2021 1:40 PM EDT No chief complaint on file. HPI: Patient presents today for office visit for follow up. CARDIO: Just recently saw Cardio in [place]. Next appt in May. Bilat swelling in [...] four weeks and prn. documented in this encounterWadsworth-Rittman Hospital06-20-2022 Miscellaneous Notes* Addendum Note - Evette William APRN.CNP - 11/22/2021 2:44 PM EDT Addended by: EVETTE WILLIAM on: 11/22/2021 02:44 PM Modules accepted: Orders * Addendum Note - Evette William APRN.CNP - 11/22/2021 2:43 PM EDT Addended by: EVETTE WILLIAM on: 11/22/2021 02:43 PM Modules accepted: Orders documented in this encounterWadsworth-Rittman Hospital06-20-2022 Miscellaneous Notes* Telephone Encounter - Julia [...] patient. Julia Cook LPN documented in this [facility]05-19-2022 Miscellaneous Notes* Telephone Encounter - Shanita Alston LPN - 10/21/2021 1:08 PM EDT Spoke with pt about test results and recommendations. Verbalizes understanding and is agreeable. Shanita Alston LPN * Telephone Encounter - Shanita Alston LPN - 10/21/2021 11:14 AM EDT Voicemail msg left for pt to return call to [facility] to review test results and recommendations. Office phone number provided. Shanita Alston LPN * Telephone Encounter - Shanita Alston LPN - 10/21/2021 11:12 AM EDT ----- Message from Breanna Theodore APRN.LEATHER STITCHER sent at 10/21/2021 11:07 AM EDT ----- Please call the patient and report renal function and BNP are within normal limits. Would recommendcontinuing current medical therapy for now. Follow low sodium diet and monitor daily weights. Patient should notify our office if lower extremity edema worsens again. Breanna Theodore APRN.LEATHER STITCHER documented in this encounterWadsworth-Rittman Hospital05-17-2022 Miscellaneous Notes* Telephone Encounter - Norma [...] Bailey RN * Telephone Encounter - Breanna Theodore APRN.CNP - 10/19/2021 12:46 PM EDT Patient has history of HCM and Grade 1 diastolic dysfunction. She may need low dose diuretic therapy; however, given HCM would like to review lab work prior to ordering new medications. BNP and BMP ordered. Breanna Theodore APRN.CNP * Telephone Encounter - Rosalind Bailey RN - 10/19/2021 10:12 AM EDT Patient calls with increasing ankle edema and blood pressure log, usually seen at [place]. BP 153/84, 134/73 and 154/78. Given 3 days of Lasix by a PCP-CLOTH STRETCHER, swelling and blood pressure improved to 141/73, 131/63, 137/72 and 139/71. Patient scheduled appointment with Evette William on 11/12/21 for follow up in [place]. Rosalind Bailey RN documented in this encounterWadsworth-Rittman Hospital05-17-2022 Miscellaneous Notes* Telephone Encounter - Gordy Green Ma - 10/19/2021 9:48 AM EDT Patient agreeable to traveling - transferred to [facility]. * Telephone Encounter - Markus Rascon MD - 10/18/2021 4:41 PM EDT See if can travel * Telephone Encounter - Hilda Borges RN - 10/18/2021 4:28 PM EDT We are now scheduling into March for our established [place] patients. [place] Evette William NP if pt ok with driving to [place]. Please advise Hilda Borges RN * Telephone [...] April. Georgina Saenz MA documented in this encounterWadsworth-Rittman Hospital05-16-2022 Miscellaneous Notes* Telephone Encounter - Georgina Saenz MA - 10/18/2021 4:20 PM EDT Will send encounter to [facility] cardiology. Georgina Saenz MA * [...] Last CARDIO. appt was in April & failure analysis technician advised to F/U in 1 year. Patient [...] PCP. Di Dobson LPN documented in this encounterWadsworth-Rittman Hospital05-16-2022 History of Present illness Narrative* Di [...] PCP. Di Dobson LPN documented in this encounterWadsworth-Rittman Hospital05-12-2022 Miscellaneous Notes* Telephone Encounter - Mariana Castillo Ma - 10/14/2021 1:21 PM EDT Patient was notified Mariana Castillo Ma * Telephone Encounter - Markus [...] echo. Zora Bella LPN documented in this encounterWadsworth-Rittman Hospital05-11-2022 Miscellaneous Notes* Telephone Encounter - Otto Salomon LPN - 10/13/2021 12:57 PM EDT TC to pt, notified of provider response. She verbalized understanding. Otto Salomon LPN * Telephone Encounter - Debbie Constantino APRN.MARIBELL - 10/13/2021 12:45 PM EDT Can please [...] sodium and prop feet. documented in this encounterWadsworth-Rittman Hospital05-10-2022 Instructions* Patient Instructions* Debbie Constantino APRN.MARIBELL - 10/12/2021 12:28 PM EDT 1. Get [...] as salami, corned beef, etc. Fettuccine John Tyronza con carne Beef burrito Potato salad Cottage cheese (both regular and low fat are high in sodium) Uzbek [place] Two-egg omelet, ham and cheese Chop suey (not even homemade!) Macaroni and cheese (not even homemade!) Cheeseburger Fish Sticks TIPS: Plain [place] breast is OK as sandwich meat Look for low salt soups in the grocery store- usually a bit more expensive. Debbie Constantino APRN.MARIBELL documented in this encounterWadsworth-Rittman Hospital05-10-2022 History of Present illness Narrative* Debbie [...] as needed for worsening/no improvement. Debbie Constantino APRN.LEATHER STITCHER This note was partially generated using [employer] recognition system. Note was reviewed for accuracy. There may be minor misspellings or grammar miscues with Yillio voice recognition. documented in this encounterWadsworth-Rittman Hospital04-18-2022 Miscellaneous Notes* Telephone Encounter - ANDREW Horowitz - 09/20/2021 12:11 PM EDT CD/report READY FOR [facility] * Telephone Encounter - Shanita Mitchell - 09/17/2021 9:17 AM EDT Pt requesting copy of XR from 09/07/21 and 09/16/21 plus report and same for CT 09/13/21 Pt will burr picker Monday morning. documented in this encounterWadsworth-Rittman Hospital04-14-2022 Miscellaneous Notes* Telephone Encounter - Markus Rascon MD - 09/16/2021 2:50 PM EDT noted * Telephone Encounter - JAMIE Dawkins - 09/16/2021 2:26 PM EDT Spoke with patient who verbalizes understanding of providers message. Patient states that she has been having some shoulder pain and is scheduled on 09/21/21 at [facility]. She says she is going to [...] therapy or orthopedic referral? documented in this encounterWadsworth-Rittman Hospital04-14-2022 History of Present illness Narrative* Ashley Cho RT(R) - 09/16/2021 10:40 AM EDT Radiology Service [...] 16, 2021 10:51 AM documented in this encounterWadsworth-Rittman Hospital04-14-2022 History of Present illness Narrative* Markus Rascon MD - 09/16/2021 9:59 AM EDT Patient presents with: Follow Up: LEFT shoulder & RIGHT hip pain HPI: Patient presents today for office visit for follow up. Has an appt in December with Dr. Russell for pulmonary. Saw her in June as [...] for annual exam in one year. - [facility] SCREENING W MARY 3. Encounter for screening mammogram for malignant neoplasm of breast - ICD9: V76.12, ICD10: Z12.31} - [facility] SCREENING W MARY 4. Hip [...] any worsening. Markus Rascon documented in this encounterWadsworth-Rittman Hospital04-12-2022 Miscellaneous Notes* Telephone Encounter - Jada Albright Ma - 09/14/2021 9:24 AM EDT Patient was made aware of the results. Patient verbalizes understanding. Jada Albright Ma * Telephone Encounter - Markus Rascon MD - 09/13/2021 4:[address] shows chronic rotator cuff tear and inflammation and swelling in the joint. If it gets hot or red, we need to see it. Otherwise would recommend ortho look at it. documented in this encounterWadsworth-Rittman Hospital04-11-2022 History of Present illness Narrative* RT [...] 13, 2021 2:10 PM documented in this encounterWadsworth-Rittman Hospital04-08-2022 Miscellaneous Notes* Telephone Encounter - Lizzie Gill - 09/10/2021 9:40 AM EDT 1st attempt: LVM to call back and schedule * Telephone Encounter - Jada Albright Ma - 09/09/2021 6:29 PM EDT Please [...] having IV contrast. * Telephone Encounter - Mariana Castillo Ma - 09/08/2021 12:15 PM EDT Left message for patient to call office back Mariana Castillo Ma * Telephone Encounter - May Bridges PA-C - 09/07/2021 6:08 PM EDT Please advise XR suggests rotator cuff tear. I am placed orders for MRI left shoulder. Please schedule Does she need anxiolysis for MRI? Thanks, Adan Bridges PA-C documented in this encounterWadsworth-Rittman Hospital04-07-2022 Miscellaneous Notes* Telephone Encounter - Jada Albright Ma - 09/09/2021 6:29 PM EDT Pt [...] MRI. Ania Rosario RN documented in this encounterWadsworth-Rittman Hospital03-29-2022 Miscellaneous Notes* Telephone Encounter - Otto [...] the past for same issue. Patient requesting Maricruz Pantoja not sure who is shoulder specialist. Pending consult, needs diagnosis. Please advise documented in this encounterWadsworth-Rittman Hospital06-22-2021 History of Present illness Narrative* Radha Escamilla, RT(R) - 11/24/2020 2:50 PM EDT Radiology [...] 24, 2020 2:57 PM documented in this encounterWadsworth-Rittman Hospital05-03-2021 History of Past illness Narrative* Problem [...] of this encounter (statuses as of 09/16/2021) [facility] Past illness Narrative* Problem [...] of this encounter (statuses as of 09/16/2021) [facility] illness Narrative* Problem [...] of this encounter (statuses as of 10/12/2021) [facility] Past illness Narrative* Problem [...] of this encounter (statuses as of 10/13/2021) [facility] of Past illness Narrative* Problem [...] of this encounter (statuses as of 10/14/2021) [facility] Past illness Narrative* Problem [...] of this encounter (statuses as of 10/18/2021) [facility] of Past illness Narrative* Problem [...] of this encounter (statuses as of 10/18/2021) [facility] illness Narrative* Problem [...] of this encounter (statuses as of 10/19/2021) [facility] Past illness Narrative* Problem [...] of this encounter (statuses as of 10/19/2021) [facility] Past illness Narrative* Problem [...] of this encounter (statuses as of 10/21/2021) [facility] illness Narrative* Problem [...] of this encounter (statuses as of 11/22/2021) [facility] Past illness Narrative* Problem [...] of this encounter (statuses as of 11/22/2021) [facility] illness Narrative* Problem [...] of this encounter (statuses as of 12/18/2021) [facility] illness Narrative* Problem [...] of this encounter (statuses as of 01/17/2022) [facility] illness Narrative* Problem [...] of this encounter (statuses as of 01/18/2022) [facility] illness Narrative* Problem [...] of this encounter (statuses as of 01/22/2022) [facility] Narrative* Problem [...] of this encounter (statuses as of 01/22/2022) [facility] Narrative* Problem [...] of this encounter (statuses as of 01/25/2022) [facility] Narrative* Problem [...] of this encounter (statuses as of 01/28/2022) [facility] Narrative* Problem [...] of this encounter (statuses as of 02/03/2022) [facility] Narrative* Problem [...] of this encounter (statuses as of 02/17/2022) [facility] Narrative* Problem [...] of this encounter (statuses as of 02/17/2022) [facility] Narrative* Problem [...] of this encounter (statuses as of 02/28/2022) [facility] Narrative* Problem [...] of this encounter (statuses as of 03/18/2022) [facility] Narrative* Problem [...] of this encounter (statuses as of 03/22/2022) [facility] Narrative* Problem [...] of this encounter (statuses as of 04/23/2022) [facility] Narrative* Problem [...] of this encounter (statuses as of 04/23/2022) [facility] Narrative* Problem [...] of this encounter (statuses as of 05/03/2022) [facility] Narrative* Problem [...] of this encounter (statuses as of 05/04/2022) [facility] Narrative* Problem [...] of this encounter (statuses as of 05/12/2022) [facility] Narrative* Problem [...] of this encounter (statuses as of 05/16/2022) [facility] Narrative* Problem [...] of this encounter (statuses as of 08/31/2021) [facility] Narrative* Problem [...] of this encounter (statuses as of 09/09/2021) [facility] Narrative* Problem [...] of this encounter (statuses as of 09/10/2021) [facility] Narrative* Problem [...] of this encounter (statuses as of 09/14/2021) [facility] Narrative* Problem [...] of this encounter (statuses as of 09/14/2021) [facility] note* Diagnosis Chronic shoulder pain, unspecified laterality- Primary documented in this encounter [facility] note* Diagnosis Onset Date Resolution Status Osteoporosis acute [facility] Work Phone: Evaluation note* Diagnosis Other injury of unspecified muscle, fascia and tendon at shoulder and upper arm level, unspecified arm, initial encounter documented in this encounter [facility]* Diagnosis Other injury of unspecified muscle, fascia and tendon at shoulder and upper arm level, unspecified arm, initial encounter documented in this encounter [facility]* Diagnosis Rotator cuff injury, unspecified laterality, initial encounter- Primary documented in this encounter [facility]Eval[facility]* Diagnosis HOCM (hypertrophic obstructive cardiomyopathy) (HCC)- [...] not elsewhere classified documented in this encounter [facility]* Diagnosis Swelling- Primary Edema Multiple thyroid nodules Nontoxic multinodular goiter Obstructive cardiomyopathy (HCC) Other primary cardiomyopathies documented in this encounter [facility]* Diagnosis Essential hypertension- Primary Unspecified essential hypertension documented in this encounter [facility]* Diagnosis Obstructive cardiomyopathy (HCC)- Primary Other primary cardiomyopathies Essential hypertension Unspecified essential hypertension Edema, unspecified type documented in this encounter [facility]* Diagnosis HOCM (hypertrophic obstructive cardiomyopathy) (HCC)- Primary Hypertrophic obstructive cardiomyopathy Dyspnea on exertion Other dyspnea and respiratory abnormality documented in this encounter [facility]* Diagnosis Essential hypertension- Primary Unspecified essential hypertension documented in this encounter [facility]* Diagnosis Onset Date Resolution Status Greater trochanteric bursitis of right hip acute [facility] Work Phone: Evaluation note* Diagnosis Onset Date Resolution Status Greater trochanteric bursitis of right hip acute Prolapse of female pelvic organs acute Encounter for routine gynecological examination noneactive [facility] Work Phone: Evaluation note* Diagnosis Weight loss- Primary Loss of weight Essential hypertension Unspecified essential hypertension Hypercalcemia Non-rheumatic mitral regurgitation Mitral valve disorders Monoclonal gammopathy Monoclonal paraproteinemia Mitral valve prolapse Mitral valve disorders Bilateral carotid artery stenosis Occlusion and stenosis of carotid artery without mention of cerebral infarction Obstructive cardiomyopathy (HCC) Other primary cardiomyopathies documented in this encounter [facility]* Diagnosis Weight loss- Primary Loss of weight Essential hypertension Unspecified essential hypertension Restrictive 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 Other diseases of lung, not elsewhere classified Monoclonal gammopathy Monoclonal paraproteinemia documented in this encounter [facility]* Diagnosis Microscopic hematuria- Primary Weight loss Loss of weight documented in this encounter [facility]* Diagnosis Weight loss Loss of weight documented in this encounter [facility]* Diagnosis Renal cyst- Primary Unspecified congenital cystic kidney disease documented in this encounter [facility]* Diagnosis Essential hypertension- Primary Unspecified essential hypertension documented in this encounter [facility]* Diagnosis Essential hypertension Unspecified essential hypertension [facility] note* Diagnosis Onset Date Resolution Status Prolapse of female pelvic organs acute Encounter for routine gynecological examination noneactive [facility] Work Phone: Evaluation note* Diagnosis Essential hypertension Unspecified essential [facility] Weight loss- Primary Loss of weight Encounter for immunization Need for other specified prophylactic vaccination against single bacterial disease Essential hypertension Unspecified essential hypertension HOCM (hypertrophic obstructive cardiomyopathy) (HCC) Hypertrophic obstructive cardiomyopathy [facility] Diagnosis Mild intermittent asthma without complication- Primary Unspecified asthma Restrictive 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 Other diseases of lung, not elsewhere classified [facility] Monoclonal gammopathy Monoclonal paraproteinemia [facility] Diagnosis Monoclonal gammopathy- Primary Monoclonal paraproteinemia [facility] Diagnosis Monoclonal gammopathy- Primary Monoclonal paraproteinemia Essential hypertension- Primary Unspecified essential hypertension HOCM (hypertrophic obstructive cardiomyopathy) (HCC) Hypertrophic obstructive cardiomyopathy [facility] Diagnosis Essential hypertension- Primary Unspecified essential hypertension HOCM (hypertrophic obstructive cardiomyopathy) (HCC) Hypertrophic obstructive cardiomyopathy [facility] Diagnosis Osteoporosis, unspecified- Primary Vitamin [...] to unspecified cause [facility] Diagnosis Hyperglycemia- Primary Other abnormal glucose [facility]* Diagnosis Mild intermittent asthma without complication- Primary Unspecified asthma Restrictive 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 Other diseases of lung, not elsewhere classified [facility] Diagnosis Forgetfulness- Primary Other general symptoms Essential hypertension Unspecified essential hypertension SVT (supraventricular tachycardia) (HCC) Other specified cardiac dysrhythmias Obstructive cardiomyopathy (HCC) Other primary cardiomyopathies documented in this encounter [facility]No assessment [facility] Work Phone: Evaluation note* Diagnosis Asthma-COPD overlap syndrome- Primary Restrictive 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 Other diseases of lung, not elsewhere classified documented in this encounter [facility] note* Diagnosis Osteoporosis, unspecified Vitamin D deficiency Unspecified vitamin D deficiency documented in this encounter [facility] note* Diagnosis Monoclonal gammopathy- Primary Monoclonal paraproteinemia documented in this encounter [facility] note* Diagnosis Monoclonal gammopathy Monoclonal paraproteinemia documented in this encounter [facility] note* Diagnosis Monoclonal gammopathy- Primary Monoclonal paraproteinemia documented in this encounter [facility] note* Diagnosis HOCM (hypertrophic obstructive cardiomyopathy) (HCC) Hypertrophic obstructive cardiomyopathy documented in this encounter [facility] note* Diagnosis Screening for diabetes mellitus- Primary Age-related osteoporosis without current pathological fracture Senile osteoporosis Other disorders of glucose transport (HCC) Chest pain, unspecified type Stable angina pectoris (HCC) documented in this encounter [facility] note* Diagnosis Multinodular thyroid- Primary Nontoxic multinodular goiter Hypercalcemia documented in this encounter [facility] note* Diagnosis Mild persistent asthma without complication Unspecified asthma documented in this encounter [facility] note* Diagnosis Chest pain, unspecified type documented in this encounter [facility] note* Diagnosis Chest pain, unspecified type Chest pain, unspecified type documented in this encounter [facility] note* Diagnosis Essential hypertension Unspecified essential hypertension documented in this encounter [facility] note* Diagnosis Asthma-COPD overlap syndrome (HCC)- Primary Restrictive 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 Other diseases of lung, not elsewhere classified documented in this encounter [facility] note* Diagnosis Pelvic mass in female- Primary Abnormal finding on radiology exam Uterovaginal prolapse Uterovaginal prolapse, unspecified documented in this encounter [facility] note* Diagnosis Pelvic mass in female Allergy history, radiographic dye Allergy to radiographic dye documented in this encounter [facility] note* Diagnosis Incomplete uterovaginal prolapse- Primary Uterovaginal prolapse, incomplete Cystocele, midline Rectocele Incomplete bladder emptying Abnormal urine finding [facility] Diagnosis Incomplete uterovaginal prolapse- Primary Uterovaginal [...] specified body structures [facility] Diagnosis ALVIN (stress urinary incontinence, female) [...] specified body structures documented in this encounter [facility] note* Diagnosis ALVIN (stress urinary incontinence, female) [...] specified body structures documented in this encounter [facility] note* Diagnosis Incomplete uterovaginal prolapse Uterovaginal prolapse, [...] specified body structures documented in this encounter [facility] note* Diagnosis Hypercalcemia- Primary documented in this encounter [facility] note* Diagnosis Postoperative pain- Primary Other acute postoperative pain Intra-abdominal and pelvic swelling, mass and lump, unspecified site Abnormal findings on diagnostic imaging of other specified body structures Incomplete uterovaginal prolapse Uterovaginal prolapse, incomplete Cystocele, midline Rectocele documented in this encounter [facility] note* Diagnosis Post-operative state- Primary Other postprocedural status documented in this encounter [facility] note* Diagnosis Postop check- Primary Follow-up examination, following unspecified surgery OAB (overactive bladder) Anal skin tag documented in this encounter [facility] note* Diagnosis Essential hypertension- Primary Unspecified essential [...] COPD type (HCC) documented in this encounter [facility] note* Diagnosis Essential hypertension- Primary Unspecified essential hypertension Scoliosis (and kyphoscoliosis), idiopathic Restrictive 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 Other diseases of lung, not elsewhere classified Osteoporosis, unspecified osteoporosis type, unspecified pathological fracture presence Anemia, unspecified type- Primary documented in this encounter [facility] note* Diagnosis Essential hypertension- Primary Unspecified essential hypertension Scoliosis (and kyphoscoliosis), idiopathic Restrictive 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 Other diseases of lung, not elsewhere classified Osteoporosis, unspecified osteoporosis type, unspecified pathological fracture presence Hip pain, right Pain in joint, pelvic region and thigh documented in this encounter [facility] note* Diagnosis Essential hypertension- Primary Unspecified essential hypertension Scoliosis (and kyphoscoliosis), idiopathic Restrictive 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 Other diseases of lung, not elsewhere classified Osteoporosis, unspecified osteoporosis type, unspecified pathological fracture presence Acute pain of left shoulder [facility] Diagnosis Essential hypertension- Primary Unspecified essential [...] Hypertrophic obstructive cardiomyopathy [facility] Diagnosis Essential hypertension- Primary Unspecified essential hypertension Scoliosis (and kyphoscoliosis), idiopathic Restrictive 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 Other diseases of lung, not elsewhere classified Osteoporosis, unspecified osteoporosis type, unspecified pathological fracture presence Weight loss- Primary Loss of weight Iron deficiency anemia, unspecified iron deficiency anemia type Essential hypertension Unspecified essential hypertension [facility] Diagnosis Essential hypertension- Primary Unspecified essential hypertension Scoliosis (and kyphoscoliosis), idiopathic Restrictive 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 Other diseases of lung, not elsewhere classified Osteoporosis, unspecified osteoporosis type, unspecified pathological fracture presence Essential hypertension Unspecified essential hypertension [facility] Diagnosis Essential hypertension- Primary Unspecified essential [...] in stool contents [facility] Diagnosis Essential hypertension- Primary Unspecified [...] in stool contents [facility] Diagnosis Essential hypertension- Primary Unspecified [...] in stool contents [facility] Diagnosis Essential hypertension- Primary Unspecified essential hypertension Scoliosis (and kyphoscoliosis), idiopathic Restrictive 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 Other diseases of lung, not elsewhere classified Osteoporosis, unspecified osteoporosis type, unspecified pathological fracture presence Asthma-COPD overlap syndrome (HCC) Restrictive 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 Other diseases of lung, not elsewhere classified [facility] Diagnosis Essential hypertension- Primary Unspecified essential hypertension Scoliosis (and kyphoscoliosis), idiopathic Restrictive 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 Other diseases of lung, not elsewhere classified Osteoporosis, unspecified osteoporosis type, unspecified pathological fracture presence Asthma-COPD overlap syndrome (HCC) Restrictive 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 Other diseases of lung, not elsewhere classified [facility] Diagnosis Essential hypertension- Primary Unspecified essential hypertension Scoliosis (and kyphoscoliosis), idiopathic Restrictive 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 Other diseases of lung, not elsewhere classified Osteoporosis, unspecified osteoporosis type, unspecified pathological fracture presence Asthma-COPD overlap syndrome (HCC)- Primary Restrictive 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 Other diseases of lung, not elsewhere classified Asthma-COPD overlap syndrome (HCC) Restrictive 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 Other diseases of lung, not elsewhere classified Asthma-COPD overlap syndrome (HCC) Restrictive 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 Other diseases of lung, not elsewhere classified Asthma-COPD overlap syndrome (HCC) Restrictive 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 Other diseases of lung, not elsewhere classified Asthma-COPD overlap syndrome (HCC) Restrictive 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 Other diseases of lung, not elsewhere classified [facility] Diagnosis Essential hypertension- Primary Unspecified essential hypertension Scoliosis (and kyphoscoliosis), idiopathic Restrictive 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 Other diseases of lung, not elsewhere classified Osteoporosis, unspecified osteoporosis type, unspecified pathological fracture presence Iron deficiency anemia, unspecified iron deficiency anemia type- Primary Family history of colon cancer Family history of malignant neoplasm of gastrointestinal tract documented in this encounter [facility] note* Diagnosis Essential hypertension- Primary Unspecified essential hypertension Scoliosis (and kyphoscoliosis), idiopathic Restrictive 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 Other diseases of lung, not elsewhere classified Osteoporosis, unspecified osteoporosis type, unspecified pathological fracture presence Iron deficiency anemia, unspecified iron deficiency anemia type- Primary Weight loss Loss of weight Essential hypertension Unspecified essential hypertension HOCM (hypertrophic obstructive cardiomyopathy) (HCC) Hypertrophic obstructive cardiomyopathy SVT (supraventricular tachycardia) (HCC) Other specified cardiac dysrhythmias documented in this encounter [facility] note* Diagnosis Essential hypertension- Primary Unspecified essential hypertension Scoliosis (and kyphoscoliosis), idiopathic Restrictive 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 Other diseases of lung, not elsewhere classified Osteoporosis, unspecified osteoporosis type, unspecified pathological fracture presence Asthma-COPD overlap syndrome (HCC)- Primary documented in this encounter [facility] note* Diagnosis Vaginal irritation- Primary Pruritus of genital organs [facility] Diagnosis Essential hypertension- Primary Unspecified essential hypertension Scoliosis (and kyphoscoliosis), idiopathic Restrictive 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 Other diseases of lung, not elsewhere classified Osteoporosis, unspecified osteoporosis type, unspecified pathological fracture presence Essential hypertension- Primary Unspecified essential hypertension Acute pain of right shoulder Iron deficiency anemia, unspecified iron deficiency anemia type documented in this encounter [facility] note* Diagnosis Essential hypertension- Primary Unspecified essential hypertension Scoliosis (and kyphoscoliosis), idiopathic Restrictive 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 Other diseases of lung, not elsewhere classified Osteoporosis, unspecified osteoporosis type, unspecified pathological fracture presence Acute pain of right shoulder documented in this encounter [facility] note* Diagnosis Essential hypertension- Primary Unspecified essential hypertension Scoliosis (and kyphoscoliosis), idiopathic Restrictive 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 Other diseases of lung, not elsewhere classified Osteoporosis, unspecified osteoporosis type, unspecified pathological fracture presence Asthma-COPD overlap syndrome (HCC)- Primary Restrictive 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 Other diseases of lung, not elsewhere classified Nocturnal hypoxia Hypoxemia documented in this encounter [facility] note* Diagnosis Essential hypertension- Primary Unspecified essential hypertension Scoliosis (and kyphoscoliosis), idiopathic Restrictive 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 Other diseases of lung, not elsewhere classified Osteoporosis, unspecified osteoporosis type, unspecified pathological fracture presence Essential hypertension- Primary Unspecified essential hypertension Elevated parathyroid hormone Unspecified endocrine disorder Weight loss Loss of weight Iron deficiency anemia, unspecified iron deficiency anemia type documented in this encounter [facility] note* Diagnosis Essential hypertension- Primary Unspecified essential hypertension Scoliosis (and kyphoscoliosis), idiopathic Restrictive 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 Other diseases of lung, not elsewhere classified Osteoporosis, unspecified osteoporosis type, unspecified pathological fracture presence Essential hypertension- Primary Unspecified essential hypertension SVT (supraventricular tachycardia) (HCC) Other specified cardiac dysrhythmias HOCM (hypertrophic obstructive cardiomyopathy) (HCC) Hypertrophic obstructive cardiomyopathy documented in this encounter [facility] note* Diagnosis Essential hypertension- Primary Unspecified essential hypertension Scoliosis (and kyphoscoliosis), idiopathic Restrictive 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 Other diseases of lung, not elsewhere classified Osteoporosis, unspecified osteoporosis type, unspecified pathological fracture presence Asthma-COPD overlap syndrome (HCC)- Primary Essential hypertension Unspecified essential hypertension Obstructive cardiomyopathy (HCC) Other primary cardiomyopathies SVT (supraventricular tachycardia) (HCC) Other specified cardiac dysrhythmias HOCM (hypertrophic obstructive cardiomyopathy) (HCC) Hypertrophic obstructive cardiomyopathy Anemia, unspecified type Bilateral carotid artery stenosis Occlusion and stenosis of carotid artery without mention of cerebral infarction documented in this encounter [facility] note* Diagnosis Essential hypertension- Primary Unspecified essential hypertension Scoliosis (and kyphoscoliosis), idiopathic Restrictive 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 Other diseases of lung, not elsewhere classified Osteoporosis, unspecified osteoporosis type, unspecified pathological fracture presence Monoclonal gammopathy- Primary Monoclonal paraproteinemia documented in this encounter [facility] note* Diagnosis Cystocele, midline- Primary OAB (overactive bladder) documented in this encounter [facility] note* Diagnosis Essential hypertension- Primary Unspecified essential hypertension Scoliosis (and kyphoscoliosis), idiopathic Restrictive 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 Other diseases of lung, not elsewhere classified Osteoporosis, unspecified osteoporosis type, unspecified pathological fracture presence Asthma-COPD overlap syndrome (HCC)- Primary Restrictive 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 Other diseases of lung, not elsewhere classified Nocturnal hypoxia Hypoxemia [facility]* Diagnosis Essential hypertension- Primary Unspecified essential [...] Other diseases of lung, not elsewhere classified Asthma-COPD overlap syndrome (HCC) Nocturnal hypoxia Hypoxemia Weight loss Loss of weight Anemia, unspecified type Lightheadedness Dizziness and giddiness Other constipation Dark stools Nonspecific abnormal finding in stool contents Vitamin D deficiency Unspecified vitamin D deficiency [facility]* Diagnosis Essential hypertension- Primary Unspecified essential hypertension Scoliosis (and kyphoscoliosis), idiopathic Restrictive 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 Other diseases of lung, not elsewhere classified Osteoporosis, unspecified osteoporosis type, unspecified pathological fracture presence Dark stools- Primary Nonspecific abnormal finding in stool contents [facility]* Diagnosis Essential hypertension- Primary Unspecified essential hypertension Scoliosis (and kyphoscoliosis), idiopathic Restrictive 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 Other diseases of lung, not elsewhere classified Osteoporosis, unspecified osteoporosis type, unspecified pathological fracture presence Asthma-COPD overlap syndrome (HCC) [facility]* Diagnosis Essential hypertension- Primary Unspecified essential hypertension Scoliosis (and kyphoscoliosis), idiopathic Restrictive 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 Other diseases of lung, not elsewhere classified Osteoporosis, unspecified osteoporosis type, unspecified pathological fracture presence Asthma-COPD overlap syndrome (HCC) documented in this encounter [facility] (narrative)* Diagnostic Procedure Only (Routine) - Closed Specialty Diagnoses / Procedures Referred By Contac t Referred To Contact XR IMAGING Diagnoses Hip pain, right Procedures XR HIP GENERAL 3V PELV/AP/LAT RIGHT RADEX HIP UNILATERAL WITH PELVIS 2-3 VIEWS Markus Rascon MD [address] [place] [address] Xr Imaging Referral ID Status Reason Start Date Expiration Date V isits Requested Visits Authorized [id number] Closed Auto-Generate d Referral 09/16/2021 10/16/2022 1 1 * Diagnostic Procedure Only (Routine) - Pending Review Specialty Diagnoses / Procedures Referred By Neil elder Referred To Contact BR IMAGING Diagnoses Screening breast examination Encounter for screening mammogram for malignant neoplasm of breast Procedures ADRIANO SCREENING W MARY SCREENING DIGITAL BREAST TOMOSYNTHESIS BI SCREENING MAMMOGRAPHY BI 2-VIEW BREAST INC CAD Markus Rascon MD [address] [place] [address] [facility] [address] [place] [address] Referral ID Status Reason Start Date Expiration Date Visits Requested Visits Authorized [id number] Pending Review Auto-Generat ed Referral 09/16/2021 10/16/2022 1 1 [facility] for referral (narrative)* Outpatient Procedure (Routine) - Authorized Specialty Diagnoses / Procedures Referred By Neil elder Referred To Contact [facility] [place] Diagnoses Swelling Obstructive cardiomyopathy (HCC) Procedures ECHO ECHO TTHRC R-T 2D W/WOM-MODE COMPL SPEC&COLR D Debbie Constantino APRN.CNP [address] [place] [address] [facility] [place] [address] [place] [address] Referral ID Status Reason Start Date Expiration Date Visits Requested Visits Authorized [id number] Authorized Auto-Generat ed Referral 10/12/2021 10/12/2022 1 1 [facility] for referral (narrative)* Diagnostic Procedure Only (Routine) - Closed Specialty Diagnoses / Procedures Referred By Neil elder Referred To Contact US IMAGING Diagnoses Renal cyst Procedures US KIDNEY/BLADDER US RETROPERITONEAL REAL TIME W/IMAGE COMPLETE Markus Rascon MD [address] [place] [address] Us Imaging Referral ID Status Reason Start Date Expiration Date V isits Requested Visits Authorized [id number] Closed Auto-Generate d Referral 01/24/2022 02/23/2023 1 1 [facility] for referral (narrative)* Diagnostic Procedure Only (Routine) - Closed Specialty Diagnoses / Procedures Referred By Contac t Referred To Contact XR IMAGING Diagnoses Monoclonal gammopathy Procedures XR BONE SURVEY ROUTINE BONE SURVEY COMPLETE Danny Oneill, DO [address] [place] [address] Xr Imaging Referral ID Status Reason Start Date Expiration Date V isits Requested Visits Authorized [id number] Closed Auto-Generate d Referral 05/12/2021 06/11/2022 1 1 [facility] for referral (narrative)* Diagnostic Procedure Only (Routine) - Authorized Specialty Diagnoses / Procedures Referred By Contac t Referred To Contact XR IMAGING Diagnoses Monoclonal gammopathy Procedures XR BONE SURVEY ROUTINE RADIOLOGIC EXAMINATION OSSEOUS SURVEY COMPL Danny Oneill DO [address] [place] [address] Xr Imaging Referral ID Status Reason Start Date Expiration Date Visits Requested Visits Authorized [id number] Authorized Auto-Generat ed Referral 05/12/2022 06/11/2023 1 1 [facility] for referral (narrative)* Outpatient Procedure (Routine) - Closed Specialty Diagnoses / Procedures Referred By Contac t Referred To [facility] Diagnoses HOCM (hypertrophic obstructive cardiomyopathy) ([facility]) Procedures ECG COMPLETE ECG ROUTINE ECG W/LEAST 12 LDS W/I&R Clary Nolasco MD [address] [place] [address] [facility] [place] [address] [place] [address] Referral ID Status Reason Start Date Expiration Date V isits Requested Visits Authorized [id number] Closed Auto-Generate d Referral 05/09/2022 05/09/2023 1 1 [facility] for referral (narrative)* Outpatient Procedure (Routine) - Authorized Specialty Diagnoses / Procedures [facility] To [facility] Diagnoses Bilateral carotid artery stenosis Procedures US CAROTID ARTERIES [facility] LAB DUPLEX SCAN EXTRACRANIAL ART COMPL BI STUDY Markus Rascon MD [address] [place] [address] [facility] [address] [address] Referral ID Status Reason Start Date Expiration Date Visits Requested Visits Authorized [id number] Authorized Auto-Generat ed Referral 09/16/2022 09/16/2023 1 1 [facility] for referral (narrative)* Diagnostic Procedure Only (Routine) - Authorized Specialty Diagnoses / Procedures Referred By [facility] Referred To Contact MOLECULAR & FUNCTIONAL IMAGING Diagnoses Chest pain, unspecified type Procedures NM CARDIAC PERF STRESS/PHARM MYOCARDIAL SPECT MULTIPLE STUDIES Rylee Duarte APRN.CNS [address] [id number] Molecular [facility] Functional Imaging [address] [place] [address] Referral ID Status Reason Start Date Expiration Date Visits Requested Visits Authorized [id number] Authorized Auto-Generat ed Referral 09/04/2023 10/03/2024 1 1 * Outpatient Procedure (Routine) - Pending Review Specialty Diagnoses / Procedures [facility]erred To Contact [facility] Diagnoses Stable angina pectoris (HCC) Procedures ECG COMPLETE ECG ROUTINE ECG W/LEAST 12 LDS W/I&R Rylee Duarte APRN.CNS [address] [place] [address] [facility] [place] [address] [place] [address] Referral ID Status Reason Start Date Expiration Date Visits Requested Visits Authorized [id number] Pending Review Auto-Generat ed Referral 09/04/2023 09/03/2024 1 1 [facility] for referral (narrative)* Diagnostic Procedure Only (Routine) - Closed Specialty Diagnoses / Procedures Referred By [facility] Referred To Contact MOLECULAR & FUNCTIONAL IMAGING Diagnoses Chest pain, unspecified type Procedures NM CARDIAC PERF STRESS/PHARM MYOCARDIAL SPECT MULTIPLE STUDIES Rylee Duarte APRN.CNS [address] [place] [address] Molecular & Functional Imaging [address] [place] [address] Referral ID Status Reason Start Date Expiration Date V isits Requested Visits Authorized [id number] Closed Auto-Generate d Referral 09/04/2023 10/03/2024 1 1 [facility] for referral (narrative)* Consultation (Urgent) - Pending Review Specialty Diagnoses / Procedures [facility] Referred To Contact Urology / Urogynecology Diagnoses Pelvic mass in female Abnormal finding on radiology exam Uterovaginal prolapse Procedures CA OFFICE/OUTPATIENT NEW HIGH MDM 60 MINUTES Leandro Chery MD [address] [facility] [address] [place] [address] [facility] [address] [place] [address] Referral ID Status Reason Start Date Expiration Date Visits Requested Visits Authorized [id number] Pending Review Specialty Services Required 11/22/2023 11/21/2024 1 1 * Imaging (Routine) - Pending Review Specialty Diagnoses / Procedures [facility] Referred To Contact Radiology Diagnoses Pelvic mass in female Abnormal finding on radiology exam Procedures CT pelvis w IV contrast Leandro Chery MD [address] [facility] [address] [place] [address] Referral ID Status Reason Start Date Expiration Date V isits Requested Visits Authorized [id number] Pending Review 11/22/2023 11/21/2024 1 1 [facility] for referral (narrative)* Outpatient Procedure (Routine) - Authorized Specialty Diagnoses / Procedures Referred By [facility] t Referred [facility] Diagnoses Bilateral carotid artery stenosis Procedures US CAROTID ARTERIES MARC VAS LAB DUPLEX SCAN EXTRACRANIAL ART COMPL BI STUDY Markus Rascon MD [address] [place] [address] [facility] [place] [facility] [place] [address] [place] [address] Referral ID Status Reason Start Date Expiration Date Visits Requested Visits Authorized [id number] Authorized Auto-Generat ed Referral 02/12/2024 02/11/2025 1 1 [facility] for referral (narrative)* Diagnostic Procedure Only (Routine) - Closed Specialty Diagnoses / Procedures Referred By Contac t Referred To Contact XR IMAGING Diagnoses Hip pain, right Procedures XR HIP GENERAL 3V PELV/AP/LAT RIGHT RADEX HIP UNILATERAL WITH PELVIS 2-3 VIEWS Markus Rascon MD [address] [place] [address] [place] [address] Referral ID Status Reason Start Date Expiration Date V isits Requested Visits Authorized [id number] Closed Auto-Generate d Referral 09/16/2021 10/16/2022 1 1 [facility] for referral (narrative)* Diagnostic Procedure Only (Routine) - Closed Specialty Diagnoses / Procedures Referred By Contac t Referred To Contact XR IMAGING Diagnoses Acute pain of left shoulder Procedures XR SHOULDER GENERAL 3V OR MORE AP/TRUE AP/OTHER LEFT RADEX SHOULDER COMPLETE MINIMUM 2 VIEWS May Bridges PA-C [address] [place] [address] [place] [address] Referral ID Status Reason Start Date Expiration Date V isits Requested Visits Authorized [id number] Closed Auto-Generate d Referral 09/07/2021 10/07/2022 1 1 [facility] for referral (narrative)* Outpatient Procedure (Routine) - Closed Specialty Diagnoses / Procedures Referred By Contac t Referred To Contact [facility] Diagnoses Iron deficiency anemia, unspecified iron deficiency anemia type Family history of colon cancer Weight loss Heme positive stool Procedures EGD DIAGNOSTIC ESOPHAGOGASTRODUODENOSC OPY TRANSORAL DIAGNOSTIC Daryl Hamlin MD [address] [place] [address] [place] [phone] Referral ID Status Reason Start Date Expiration Date V isits Requested Visits Authorized [id number] Closed Auto-Generate d Referral 03/05/2024 03/05/2025 1 1 * Outpatient Procedure (Routine) - Closed Specialty Diagnoses / Procedures [facility] Referred To Contact [facility] Diagnoses Iron deficiency anemia, unspecified iron deficiency anemia type Family history of colon cancer Weight loss Heme positive stool Procedures COLONOSCOPY DIAGNOSTIC COLONOSCOPY FLX DX W/COLLJ SPEC WHEN PFRMD Daryl Hamlin MD [address] [place] [address] [facility] [address] [place] [id number] Referral ID Status Reason Start Date Expiration Date V isits Requested Visits Authorized [id number] Closed Auto-Generate d Referral 03/05/2024 03/05/2025 1 1 [facility] for referral (narrative)* Outpatient Procedure (Routine) - Closed Specialty Diagnoses / Procedures [facility]erred To [facility] Diagnoses Iron deficiency anemia, unspecified iron deficiency anemia type Family history of colon cancer Weight loss Heme positive stool Procedures EGD DIAGNOSTIC ESOPHAGOGASTRODUODENOSC OPY TRANSORAL DIAGNOSTIC Daryl Hamlin MD [address] [place] [address] [facility] Disease [address] [address] Referral ID Status Reason Start Date Expiration Date V isits Requested Visits Authorized [id number] Closed Auto-Generate d Referral 03/05/2024 03/05/2025 1 1 * Outpatient Procedure (Routine) - Closed Specialty Diagnoses / Procedures Referred By Contac t Referred [facility] Diagnoses Iron deficiency anemia, unspecified iron deficiency anemia type Family history of colon cancer Weight loss Heme positive stool Procedures COLONOSCOPY DIAGNOSTIC COLONOSCOPY FLX DX W/COLLJ SPEC WHEN PFRMD Daryl Hamlin MD [address] [facility] [place] [address] [address] Referral ID Status Reason Start Date Expiration Date V isits Requested Visits Authorized [id number] Closed Auto-Generate d Referral 03/05/2024 03/05/2025 1 1 [facility] for referral (narrative)* Outpatient Procedure (Routine) - Closed Specialty Diagnoses / Procedures Referred By Contac t Referred To [facility] Diagnoses Asthma-COPD overlap syndrome (HCC) Restrictive 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 Procedures LUNG VOLUMES Shanita Jackson PA-C [address] [facility] [place] [address] [facility] [place] [address] [place] [address] Referral ID Status Reason Start Date Expiration Date V isits Requested Visits Authorized [id number] Closed Auto-Generate d Referral 03/27/2024 04/26/2025 1 1 * Outpatient Procedure (Routine) - Closed Specialty Diagnoses / Procedures Referred By Contac t Referred To [facility] Diagnoses Asthma-COPD overlap syndrome (HCC) Restrictive 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 Procedures LUNG DIFFUSION CAPACITY (DLCO) DIFFUSING CAPACITY Shanita Jackson PA-C [address] [place] [address] [place] [address] Referral ID Status Reason Start Date Expiration Date V isits Requested Visits Authorized [id number] Closed Auto-Generate d Referral 03/27/2024 04/26/2025 1 1 * Outpatient Procedure (Routine) - Closed Specialty Diagnoses / Procedures Referred By Contac t Referred To [facility] Diagnoses Asthma-COPD overlap syndrome (HCC) Restrictive 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 Procedures SPIROMETRY BASELINE ONLY SPMTRY W/VC EXPIRATORY MARQUISE W/WO MXML VOL VNTJ Shanita Jackson PA-C [address] [facility] [place] [address] [place] [address] Referral ID Status Reason Start Date Expiration Date V isits Requested Visits Authorized [id number] Closed Auto-Generate d Referral 03/27/2024 04/26/2025 1 1 * Outpatient Procedure (Routine) - Closed Specialty Diagnoses / Procedures Referred By Contac t Referred To [facility] Diagnoses Asthma-COPD overlap syndrome (HCC) Restrictive 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 Procedures SIX MINUTE WALK CARDIOPULMONARY EXERCISE STRESS Shaniat Jackson PA-C [address] [place] [address] [place] [address] Referral ID Status Reason Start Date Expiration Date V isits Requested Visits Authorized [id number] Closed Auto-Generate d Referral 03/27/2024 04/26/2025 1 1 [facility] for referral (narrative)* Diagnostic Procedure Only (Routine) - Closed Specialty Diagnoses / Procedures Referred By Contac t Referred To Contact XR IMAGING Diagnoses Acute pain of right shoulder Procedures XR SHOULDER GENERAL 3V OR MORE AP/TRUE AP/OTHER RIGHT RADEX SHOULDER COMPLETE MINIMUM 2 VIEWS Debbie Constantino, LEATHER STITCHER [address] [place] [address] [place] [address] Referral ID Status Reason Start Date Expiration Date V isits Requested Visits Authorized [id number] Closed Auto-Generate d Referral 05/01/2024 05/31/2025 1 1 [facility] for referral (narrative)* Diagnostic Procedure Only (Routine) - Authorized Specialty Diagnoses / Procedures Referred By Contac t Referred To Contact MOLECULAR & FUNCTIONAL IMAGING Diagnoses Monoclonal gammopathy Procedures NM PET/CT WHOLE BODY INITIAL PET IMAGING FOR CT ATTENUATION WHOLE BODY Danny Oneill DO [address] [place] [address] Molecular [facility] Functional Imaging [address] [place] [address] Referral ID Status Reason Start Date Expiration Date Visits Requested Visits Authorized [id number] Authorized Auto-Generat ed Referral 07/04/2024 08/03/2025 1 1 [facility] for visit Narrative* Diagnostic Procedure Only (Routine) - Closed Specialty Diagnoses / Procedures Referred By Contac t Referred To Contact XR IMAGING Diagnoses Monoclonal gammopathy Procedures XR BONE SURVEY ROUTINE BONE SURVEY COMPLETE Danny [place]ill DO [address] [place] [address] X[facility] Referral ID Status Reason Start Date Expiration Date V isits Requested Visits Authorized [id number] Closed Auto-Generate d Referral 05/12/2021 06/11/2022 1 1 [facility] for visit Narrative* Diagnostic Procedure Only (Routine) - Closed Specialty Diagnoses / Procedures Referred By Contac t Referred To Contact XR IMAGING Diagnoses Monoclonal gammopathy Procedures XR BONE SURVEY ROUTINE RADIOLOGIC EXAMINATION OSSEOUS SURVEY COMPL Danny [place] DO [address] [place] [address] [place] [address] Referral ID Status Reason Start Date Expiration Date V isits Requested Visits Authorized [id number] Closed Auto-Generate d Referral 05/12/2022 06/11/2023 1 1 [facility] for visit Narrative* Outpatient Procedure (Routine) - Closed Specialty Diagnoses / Procedures Referred By Contac t Referred [facility] Diagnoses HOCM (hypertrophic obstructive cardiomyopathy) (HCC) Procedures ECHO ECHO TTHRC R-T 2D W/WOM-MODE COMPL SPEC&COLR D Clary Nolasco MD [address] [place] [address] [facility] [place] [address] [place] [address] Referral ID Status Reason Start Date Expiration Date V isits Requested Visits Authorized [id number] Closed Auto-Generate d Referral 06/19/2023 06/11/2024 1 1 [facility] for visit Narrative* Diagnostic Procedure Only (Routine) - Closed Specialty Diagnoses / Procedures Referred By Contac t Referred To Contact MOLECULAR & FUNCTIONAL IMAGING Diagnoses Chest pain, unspecified type Procedures NM CARDIAC PERF STRESS/PHARM MYOCARDIAL SPECT MULTIPLE STUDIES Rylee Duarte, SOFTWARE ENGINEERING SPECIALIST.AUTOMOTIVE CENTER MANAGER [address] [place] [address] Molecular [facility] Functional Imaging [address] [place] [id number] Referral ID Status Reason Start Date Expiration Date V isits Requested Visits Authorized [id number] Closed Auto-Generate d Referral 09/04/2023 10/03/2024 1 1 [facility] for visit Narrative* Diagnostic Procedure Only (Routine) - Closed Specialty Diagnoses / Procedures Referred By Contac t Referred To Contact XR IMAGING Diagnoses Hip pain, right Procedures XR HIP GENERAL 3V PELV/AP/LAT RIGHT RADEX HIP UNILATERAL WITH PELVIS 2-3 VIEWS Markus Rascon MD [address] [place] [address] [place] [address] Referral ID Status Reason Start Date Expiration Date V isits Requested Visits Authorized [id number] Closed Auto-Generate d Referral 09/16/2021 10/16/2022 1 1 [facility] for visit Narrative* Diagnostic Procedure Only (Routine) - Closed Specialty Diagnoses / Procedures Referred By Contac t Referred To Contact XR IMAGING Diagnoses Acute pain of left shoulder Procedures XR SHOULDER GENERAL 3V OR MORE AP/TRUE AP/OTHER LEFT RADEX SHOULDER COMPLETE MINIMUM 2 VIEWS May Bridges PA-C [address] [place] [address] [place] [address] Referral ID Status Reason Start Date Expiration Date V isits Requested Visits Authorized [id number] Closed Auto-Generate d Referral 09/07/2021 10/07/2022 1 1 [facility] for visit Narrative* Outpatient Procedure (Routine) - Closed Specialty Diagnoses / Procedures Referred By Contac t Referred To Contact [facility] Diagnoses Iron deficiency anemia, unspecified iron deficiency anemia type Family history of colon cancer Weight loss Heme positive stool Procedures EGD DIAGNOSTIC ESOPHAGOGASTRODUODENOSC OPY TRANSORAL DIAGNOSTIC Daryl Hamlin MD [address] [place] [address] [facility] [place] [address] [place] [address] Referral ID Status Reason Start Date Expiration Date V isits Requested Visits Authorized [id number] Closed Auto-Generate d Referral 03/05/2024 03/05/2025 1 1 [facility] for visit Narrative* Diagnostic Procedure Only (Routine) - Closed Specialty Diagnoses / Procedures Referred By Contac t Referred To Contact XR IMAGING Diagnoses Acute pain of right shoulder Procedures XR SHOULDER GENERAL 3V OR MORE AP/TRUE AP/OTHER RIGHT RADEX SHOULDER COMPLETE MINIMUM 2 VIEWS Debbie Constantino APRN.LEATHER STITCHER [address] [place] [address] [place] [address] Referral ID Status Reason Start Date Expiration Date V isits Requested Visits Authorized [id number] Closed Auto-Generate d Referral 05/01/2024 05/31/2025 1 1 [facility] Reason for Referral Specialty Diagnoses / Procedures Referred By Contac t Referred To Contact Orthopedics Diagnoses Chronic shoulder pain, unspecified laterality Procedures CONSULT TO ORTHOPAEDICS OFFICE/OUTPATIENT [facility] 60-74 MINUTES Markus Rascon MD [address] [place] [address] Referral ID Status Reason Start Date Expiration Date Visits Requested Visits Authorized [id number] Authorized PCP Requested Referral 08/31/2021 08/31/2022 1 1 Specialty Diagnoses / Procedures Referred By Contac t Referred To Contact CT IMAGING Diagnoses Other injury of unspecified muscle, fascia and tendon at shoulder and upper arm level, unspecified arm, initial encounter Procedures CT SHOULDER WO IVCON LT CT UPPER EXTREMITY W/O CONTRAST MATERIAL May Bridges PA-C [address] [place] [address] Ct Imaging Referral ID Status Reason Start Date Expiration Date Visits Requested Visits Authorized [id number] Authorized Auto-Generat ed Referral 09/09/2021 10/09/2022 1 1 Referral ID Status Reason Start Date Expiration Date V isits Requested Visits Authorized [id number] Closed Auto-Generate d Referral 09/09/2021 10/09/2022 1 1 Specialty Diagnoses / Procedures Referred By Contac t Referred To Contact Orthopedics Diagnoses Rotator cuff injury, unspecified laterality, initial encounter Procedures CONSULT TO ORTHOPAEDICS OFFICE/OUTPATIENT [facility] 60-74 MINUTES Markus Rascon MD [address] [place] [address] Referral ID Status Reason Start Date Expiration Date Visits Requested Visits Authorized [id number] Authorized PCP Requested Referral 09/13/2021 09/13/2022 1 1 Specialty Diagnoses / Procedures Referred By Contac t Referred To Contact Cardiology Diagnoses Obstructive cardiomyopathy (HCC) Essential hypertension Edema, unspecified type Procedures CONSULT TO CARDIOLOGY OFFICE/OUTPATIENT [facility] 60-74 MINUTES Markus Rascon MD [address] [place] [address] Referral ID Status Reason Start Date Expiration Date Visits Requested Visits Authorized [id number] Authorized PCP Requested Referral 10/18/2021 10/18/2022 1 1 Specialty Diagnoses / Procedures Referred By Contac t Referred To Contact CT IMAGING Diagnoses Weight loss Procedures CT ABD/PEL WO IVCON CT ABD & PELVIS W/O CONTRAST Markus Rascon MD [address] [place] [address] Ct Imaging Referral ID Status Reason Start Date Expiration Date Visits Requested Visits Authorized [id number] Authorized Auto-Generat ed Referral 01/17/2022 02/16/2023 1 1 Specialty Diagnoses / Procedures Referred By Contac t Referred To Contact CT IMAGING Diagnoses Weight loss Procedures CT CHEST WO IVCON DIAGNOSTIC COMPUTED TOMOGRAPHY THORAX W/O CNTRST Markus Rascon MD [address] [place] [address] Ct Imaging Referral ID Status Reason Start Date Expiration Date Visits Requested Visits Authorized [id number] Authorized Auto-Generat ed Referral 01/17/2022 02/16/2023 1 1 Specialty Diagnoses / Procedures Referred By Contac t Referred To Contact Urology Diagnoses Microscopic hematuria Weight loss Procedures CONSULT TO UROLOGY OFFICE/OUTPATIENT [facility] 60-74 MINUTES Markus Rascon MD [address] [place] [address] Referral ID Status Reason Start Date Expiration Date Visits Requested Visits Authorized [id number] Authorized PCP Requested Referral 01/17/2022 01/17/2023 1 1 Referral ID Status Reason Start Date Expiration Date V isits Requested Visits Authorized [id number] Closed Auto-Generate d Referral 01/17/2022 02/16/2023 1 1 Referral ID Status Reason Start Date Expiration Date V isits Requested Visits Authorized [id number] Closed Auto-Generate d Referral 01/17/2022 02/16/2023 1 1 Specialty Diagnoses / Procedures Referred By Contac t Referred To Contact General Surgery Diagnoses Iron deficiency anemia, unspecified iron deficiency anemia type Family history of colon cancer Weight loss Heme positive stool Procedures CONSULT TO GENERAL SURGERY OFFICE/OUTPATIENT [facility] 60 MINUTES Markus Rascon MD [address] [place] [address] Referral ID Status Reason Start Date Expiration Date V isits Requested Visits Authorized [id number] Closed PCP Requested Referral 02/19/2024 02/18/2025 1 1 Advance Directives Documents on File Type Date Recorded 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 Advance Directive(s) Advance Directive(s) 09/24/2020 7:19 AM Advance Directive(s) 09/09/2020 8:46 AM Advance Directive(s) 03/03/2020 8:26 AM Advance Directive(s) 04/05/2017 12:23 PM Advance Directive(s) 09/04/2012 3:41 PM Advance Directive(s) 03/05/2010 9:26 PM Documents on File Type Date Recorded 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 Advance Directive(s) Advance Directive(s) 09/24/2020 7:19 AM Advance Directive(s) 09/09/2020 8:46 AM Advance Directive(s) 03/03/2020 8:26 AM Advance Directive(s) 04/05/2017 12:23 PM Advance Directive(s) 09/04/2012 3:41 PM Advance Directive(s) 03/05/2010 9:26 PM Advance Directive Response Recorded Date/ Time Living Will Yes March 10 10:37am Power of Passenger Rate Clerk Yes March 10 10:37am Documents on File Type Date Recorded 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 Advance Directive(s) 09/04/2012 3:41 PM Advance Directive(s) 03/05/2010 9:26 PM Documents on File Type Date Recorded 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 Advance Directive(s) 09/04/2012 3:41 PM Advance Directive(s) 03/05/2010 9:26 PM Advance Directive Response Recorded Date/ Time Name of Medical Power of Passenger Rate Clerk October 18, 2022 1:35pm Living Will Yes October 18, 2022 1 :35pm Power of Passenger Rate Clerk Yes October 18, 2022 1:35pm Documents on File Type Date Recorded 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 Power of Passenger Rate Clerk 12/19/2023 10:45 AM Date Activated Date Inactivated Comments 12/19/2023 10:51 AM 12/19/2023 9:54 PM Documents on File Type Date Recorded 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 Power of Passenger Rate Clerk 12/19/2023 10:45 AM Date Activated Date Inactivated Comments 12/19/2023 10:51 AM 12/19/2023 9:54 PM Chief Complaint and Reason for Visit Chief Complaint TP-Ltarbzexfxnq-YOE& CONSENT ONLY-[facility] PT PROLIA Reason for Visit Osteoporosis Chief Complaint PROLIA RIGHT HIP Reason for Visit Greater trochanteric bursitis of right hip Chief Complaint PROLIA RIGHT HIP SCREENING 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) Reason for Visit Greater trochanteric bursitis of right hip Prolapse of female pelvic organs Encounter for routine gynecological examination Chief Complaint SCREENING 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) kidney mass Reason for Visit Prolapse of female p elvic organs Encounter for routine gynecological examination Chief Complaint 1 Y FU PROLIA Reason for Visit Osteoporosis Chief Complaint 1 Y FU PROLIA NOSE BLEED Reason for Visit Osteoporosis Chief Complaint PROLIA NOSE BLEED SCREENING Family History Relationship Condition Age at Onset Recorded Date/T alyssa mother Malignant neoplasm Unknown father Malignant neoplasm Unknown Summary Purpose Additional Source Comments Source Comments (unrecognize d section and content) In the event this informatio n is protected by the Federal Confidentiality of Alcohol and Drug Abuse Patient Records regulations: The Federal rules restrict any use of the information to criminally investigate or prosecute any alcohol or drug abuse patient.[facility] the event this information is protected by the Federal Confidentiality of Alcohol and Drug Abuse Patient Records regulations: The Federal rules restrict any use of the information to criminally investigate or prosecute any alcohol or drug abuse patient.[facility] the event this information is protected by the Federal Confidentiality of Alcohol and Drug Abuse Patient Records regulations: The Federal rules restrict any use of the information to criminally investigate or prosecute any alcohol or drug abuse patient.[facility] the event this information is protected by the Federal Confidentiality of Alcohol and Drug Abuse Patient Records regulations: The Federal rules restrict any use of the information to criminally investigate or prosecute any alcohol or drug abuse patient.[facility] the event this information is protected by the Federal Confidentiality of Alcohol and Drug Abuse Patient Records regulations: The Federal rules restrict any use of the information to criminally investigate or prosecute any alcohol or drug abuse patient.[facility] HospitalIn the event this information is protected by the Federal Confidentiality of Alcohol and Drug Abuse Patient Records regulations: The Federal rules restrict any use of the information to criminally investigate or prosecute any alcohol or drug abuse patient.[facility] HospitalIn the event this information is protected by the Federal Confidentiality of Alcohol and Drug Abuse Patient Records regulations: The Federal rules restrict any use of the information to criminally investigate or prosecute any alcohol or drug abuse patient.[facility] HospitalIn the event this information is protected by the Federal Confidentiality of Alcohol and Drug Abuse Patient Records regulations: The Federal rules restrict any use of the information to criminally investigate or prosecute any alcohol or drug abuse patient.[facility] HospitalIn the event this information is protected by the Federal Confidentiality of Alcohol and Drug Abuse Patient Records regulations: The Federal rules restrict any use of the information to criminally investigate or prosecute any alcohol or drug abuse patient.[facility] HospitalIn the event this information is protected by the Federal Confidentiality of Alcohol and Drug Abuse Patient Records regulations: The Federal rules restrict any use of the information to criminally investigate or prosecute any alcohol or drug abuse patient.[facility] HospitalIn the event this information is protected by the Federal Confidentiality of Alcohol and Drug Abuse Patient Records regulations: The Federal rules restrict any use of the information to criminally investigate or prosecute any alcohol or drug abuse patient.[facility] HospitalIn the event this information is protected by the Federal Confidentiality of Alcohol and Drug Abuse Patient Records regulations: The Federal rules restrict any use of the information to criminally investigate or prosecute any alcohol or drug abuse patient.[facility] HospitalIn the event this information is protected by the Federal Confidentiality of Alcohol and Drug Abuse Patient Records regulations: The Federal rules restrict any use of the information to criminally investigate or prosecute any alcohol or drug abuse patient.[facility] HospitalIn the event this information is protected by the Federal Confidentiality of Alcohol and Drug Abuse Patient Records regulations: The Federal rules restrict any use of the information to criminally investigate or prosecute any alcohol or drug abuse patient.[facility] HospitalIn the event this information is protected by the Federal Confidentiality of Alcohol and Drug Abuse Patient Records regulations: The Federal rules restrict any use of the information to criminally investigate or prosecute any alcohol or drug abuse patient.[facility] HospitalIn the event this information is protected by the Federal Confidentiality of Alcohol and Drug Abuse Patient Records regulations: The Federal rules restrict any use of the information to criminally investigate or prosecute any alcohol or drug abuse patient.[facility] HospitalIn the event this information is protected by the Federal Confidentiality of Alcohol and Drug Abuse Patient Records regulations: The Federal rules restrict any use of the information to criminally investigate or prosecute any alcohol or drug abuse patient.[facility] HospitalIn the event this information is protected by the Federal Confidentiality of Alcohol and Drug Abuse Patient Records regulations: The Federal rules restrict any use of the information to criminally investigate or prosecute any alcohol or drug abuse patient.[facility] HospitalIn the event this information is protected by the Federal Confidentiality of Alcohol and Drug Abuse Patient Records regulations: The Federal rules restrict any use of the information to criminally investigate or prosecute any alcohol or drug abuse patient.[facility] HospitalIn the event this information is protected by the Federal Confidentiality of Alcohol and Drug Abuse Patient Records regulations: The Federal rules restrict any use of the information to criminally investigate or prosecute any alcohol or drug abuse patient.[facility] HospitalIn the event this information is protected by the Federal Confidentiality of Alcohol and Drug Abuse Patient Records regulations: The Federal rules restrict any use of the information to criminally investigate or prosecute any alcohol or drug abuse patient.[facility] HospitalIn the event this information is protected by the Federal Confidentiality of Alcohol and Drug Abuse Patient Records regulations: The Federal rules restrict any use of the information to criminally investigate or prosecute any alcohol or drug abuse patient.[facility] HospitalIn the event this information is protected by the Federal Confidentiality of Alcohol and Drug Abuse Patient Records regulations: The Federal rules restrict any use of the information to criminally investigate or prosecute any alcohol or drug abuse patient.[facility] HospitalIn the event this information is protected by the Federal Confidentiality of Alcohol and Drug Abuse Patient Records regulations: The Federal rules restrict any use of the information to criminally investigate or prosecute any alcohol or drug abuse patient.[facility] HospitalIn the event this information is protected by the Federal Confidentiality of Alcohol and Drug Abuse Patient Records regulations: The Federal rules restrict any use of the information to criminally investigate or prosecute any alcohol or drug abuse patient.[facility] HospitalIn the event this information is protected by the Federal Confidentiality of Alcohol and Drug Abuse Patient Records regulations: The Federal rules restrict any use of the information to criminally investigate or prosecute any alcohol or drug abuse patient.[facility] HospitalIn the event this information is protected by the Federal Confidentiality of Alcohol and Drug Abuse Patient Records regulations: The Federal rules restrict any use of the information to criminally investigate or prosecute any alcohol or drug abuse patient.[facility] HospitalIn the event this information is protected by the Federal Confidentiality of Alcohol and Drug Abuse Patient Records regulations: The Federal rules restrict any use of the information to criminally investigate or prosecute any alcohol or drug abuse patient.[facility] HospitalIn the event this information is protected by the Federal Confidentiality of Alcohol and Drug Abuse Patient Records regulations: The Federal rules restrict any use of the information to criminally investigate or prosecute any alcohol or drug abuse patient.[facility] HospitalIn the event this information is protected by the Federal Confidentiality of Alcohol and Drug Abuse Patient Records regulations: The Federal rules restrict any use of the information to criminally investigate or prosecute any alcohol or drug abuse patient.[facility] HospitalIn the event this information is protected by the Federal Confidentiality of Alcohol and Drug Abuse Patient Records regulations: The Federal rules restrict any use of the information to criminally investigate or prosecute any alcohol or drug abuse patient.[facility] HospitalIn the event this information is protected by the Federal Confidentiality of Alcohol and Drug Abuse Patient Records regulations: The Federal rules restrict any use of the information to criminally investigate or prosecute any alcohol or drug abuse patient.[facility] HospitalIn the event this information is protected by the Federal Confidentiality of Alcohol and Drug Abuse Patient Records regulations: The Federal rules restrict any use of the information to criminally investigate or prosecute any alcohol or drug abuse patient.[facility] HospitalIn the event this information is protected by the Federal Confidentiality of Alcohol and Drug Abuse Patient Records regulations: The Federal rules restrict any use of the information to criminally investigate or prosecute any alcohol or drug abuse patient.[facility] HospitalIn the event this information is protected by the Federal Confidentiality of Alcohol and Drug Abuse Patient Records regulations: The Federal rules restrict any use of the information to criminally investigate or prosecute any alcohol or drug abuse patient.[facility] HospitalIn the event this information is protected by the Federal Confidentiality of Alcohol and Drug Abuse Patient Records regulations: The Federal rules restrict any use of the information to criminally investigate or prosecute any alcohol or drug abuse patient.[facility] HospitalIn the event this information is protected by the Federal Confidentiality of Alcohol and Drug Abuse Patient Records regulations: The Federal rules restrict any use of the information to criminally investigate or prosecute any alcohol or drug abuse patient.[facility] HospitalIn the event this information is protected by the Federal Confidentiality of Alcohol and Drug Abuse Patient Records regulations: The Federal rules restrict any use of the information to criminally investigate or prosecute any alcohol or drug abuse patient.[facility] HospitalIn the event this information is protected by the Federal Confidentiality of Alcohol and Drug Abuse Patient Records regulations: The Federal rules restrict any use of the information to criminally investigate or prosecute any alcohol or drug abuse patient.[facility] HospitalIn the event this information is protected by the Federal Confidentiality of Alcohol and Drug Abuse Patient Records regulations: The Federal rules restrict any use of the information to criminally investigate or prosecute any alcohol or drug abuse patient.[facility] HospitalIn the event this information is protected by the Federal Confidentiality of Alcohol and Drug Abuse Patient Records regulations: The Federal rules restrict any use of the information to criminally investigate or prosecute any alcohol or drug abuse patient.[facility] HospitalIn the event this information is protected by the Federal Confidentiality of Alcohol and Drug Abuse Patient Records regulations: The Federal rules restrict any use of the information to criminally investigate or prosecute any alcohol or drug abuse patient.[facility] HospitalIn the event this information is protected by the Federal Confidentiality of Alcohol and Drug Abuse Patient Records regulations: The Federal rules restrict any use of the information to criminally investigate or prosecute any alcohol or drug abuse patient.[facility] HospitalIn the event this information is protected by the Federal Confidentiality of Alcohol and Drug Abuse Patient Records regulations: The Federal rules restrict any use of the information to criminally investigate or prosecute any alcohol or drug abuse patient.[facility] HospitalIn the event this information is protected by the Federal Confidentiality of Alcohol and Drug Abuse Patient Records regulations: The Federal rules restrict any use of the information to criminally investigate or prosecute any alcohol or drug abuse patient.[facility] HospitalIn the event this information is protected by the Federal Confidentiality of Alcohol and Drug Abuse Patient Records regulations: The Federal rules restrict any use of the information to criminally investigate or prosecute any alcohol or drug abuse patient.[facility] HospitalIn the event this information is protected by the Federal Confidentiality of Alcohol and Drug Abuse Patient Records regulations: The Federal rules restrict any use of the information to criminally investigate or prosecute any alcohol or drug abuse patient.[facility] HospitalIn the event this information is protected by the Federal Confidentiality of Alcohol and Drug Abuse Patient Records regulations: The Federal rules restrict any use of the information to criminally investigate or prosecute any alcohol or drug abuse patient.[facility] HospitalIn the event this information is protected by the Federal Confidentiality of Alcohol and Drug Abuse Patient Records regulations: The Federal rules restrict any use of the information to criminally investigate or prosecute any alcohol or drug abuse patient.[facility] HospitalIn the event this information is protected by the Federal Confidentiality of Alcohol and Drug Abuse Patient Records regulations: The Federal rules restrict any use of the information to criminally investigate or prosecute any alcohol or drug abuse patient.[facility] HospitalIn the event this information is protected by the Federal Confidentiality of Alcohol and Drug Abuse Patient Records regulations: The Federal rules restrict any use of the information to criminally investigate or prosecute any alcohol or drug abuse patient.[facility] HospitalIn the event this information is protected by the Federal Confidentiality of Alcohol and Drug Abuse Patient Records regulations: The Federal rules restrict any use of the information to criminally investigate or prosecute any alcohol or drug abuse patient.[facility] HospitalIn the event this information is protected by the Federal Confidentiality of Alcohol and Drug Abuse Patient Records regulations: The Federal rules restrict any use of the information to criminally investigate or prosecute any alcohol or drug abuse patient.[facility] HospitalIn the event this information is protected by the Federal Confidentiality of Alcohol and Drug Abuse Patient Records regulations: The Federal rules restrict any use of the information to criminally investigate or prosecute any alcohol or drug abuse patient.[facility] HospitalIn the event this information is protected by the Federal Confidentiality of Alcohol and Drug Abuse Patient Records regulations: The Federal rules restrict any use of the information to criminally investigate or prosecute any alcohol or drug abuse patient.[facility] HospitalIn the event this information is protected by the Federal Confidentiality of Alcohol and Drug Abuse Patient Records regulations: The Federal rules restrict any use of the information to criminally investigate or prosecute any alcohol or drug abuse patient.[facility] HospitalIn the event this information is protected by the Federal Confidentiality of Alcohol and Drug Abuse Patient Records regulations: The Federal rules restrict any use of the information to criminally investigate or prosecute any alcohol or drug abuse patient.[facility] HospitalIn the event this information is protected by the Federal Confidentiality of Alcohol and Drug Abuse Patient Records regulations: The Federal rules restrict any use of the information to criminally investigate or prosecute any alcohol or drug abuse patient.[facility] HospitalIn the event this information is protected by the Federal Confidentiality of Alcohol and Drug Abuse Patient Records regulations: The Federal rules restrict any use of the information to criminally investigate or prosecute any alcohol or drug abuse patient.[facility] HospitalIn the event this information is protected by the Federal Confidentiality of Alcohol and Drug Abuse Patient Records regulations: The Federal rules restrict any use of the information to criminally investigate or prosecute any alcohol or drug abuse patient.[facility] HospitalIn the event this information is protected by the Federal Confidentiality of Alcohol and Drug Abuse Patient Records regulations: The Federal rules restrict any use of the information to criminally investigate or prosecute any alcohol or drug abuse patient.[facility] HospitalIn the event this information is protected by the Federal Confidentiality of Alcohol and Drug Abuse Patient Records regulations: The Federal rules restrict any use of the information to criminally investigate or prosecute any alcohol or drug abuse patient.[facility] HospitalIn the event this information is protected by the Federal Confidentiality of Alcohol and Drug Abuse Patient Records regulations: The Federal rules restrict any use of the information to criminally investigate or prosecute any alcohol or drug abuse patient.[facility] HospitalIn the event this information is protected by the Federal Confidentiality of Alcohol and Drug Abuse Patient Records regulations: The Federal rules restrict any use of the information to criminally investigate or prosecute any alcohol or drug abuse patient.[facility] HospitalIn the event this information is protected by the Federal Confidentiality of Alcohol and Drug Abuse Patient Records regulations: The Federal rules restrict any use of the information to criminally investigate or prosecute any alcohol or drug abuse patient.[facility] HospitalIn the event this information is protected by the Federal Confidentiality of Alcohol and Drug Abuse Patient Records regulations: The Federal rules restrict any use of the information to criminally investigate or prosecute any alcohol or drug abuse patient.[facility] HospitalIn the event this information is protected by the Federal Confidentiality of Alcohol and Drug Abuse Patient Records regulations: The Federal rules restrict any use of the information to criminally investigate or prosecute any alcohol or drug abuse patient.[facility] HospitalIn the event this information is protected by the Federal Confidentiality of Alcohol and Drug Abuse Patient Records regulations: The Federal rules restrict any use of the information to criminally investigate or prosecute any alcohol or drug abuse patient.[facility] HospitalIn the event this information is protected by the Federal Confidentiality of Alcohol and Drug Abuse Patient Records regulations: The Federal rules restrict any use of the information to criminally investigate or prosecute any alcohol or drug abuse patient.[facility] HospitalIn the event this information is protected by the Federal Confidentiality of Alcohol and Drug Abuse Patient Records regulations: The Federal rules restrict any use of the information to criminally investigate or prosecute any alcohol or drug abuse patient.[facility] HospitalIn the event this information is protected by the Federal Confidentiality of Alcohol and Drug Abuse Patient Records regulations: The Federal rules restrict any use of the information to criminally investigate or prosecute any alcohol or drug abuse patient.[facility] HospitalIn the event this information is protected by the Federal Confidentiality of Alcohol and Drug Abuse Patient Records regulations: The Federal rules restrict any use of the information to criminally investigate or prosecute any alcohol or drug abuse patient.[facility] HospitalIn the event this information is protected by the Federal Confidentiality of Alcohol and Drug Abuse Patient Records regulations: The Federal rules restrict any use of the information to criminally investigate or prosecute any alcohol or drug abuse patient.[facility] HospitalIn the event this information is protected by the Federal Confidentiality of Alcohol and Drug Abuse Patient Records regulations: The Federal rules restrict any use of the information to criminally investigate or prosecute any alcohol or drug abuse patient.[facility] HospitalIn the event this information is protected by the Federal Confidentiality of Alcohol and Drug Abuse Patient Records regulations: The Federal rules restrict any use of the information to criminally investigate or prosecute any alcohol or drug abuse patient.[facility] HospitalIn the event this information is protected by the Federal Confidentiality of Alcohol and Drug Abuse Patient Records regulations: The Federal rules restrict any use of the information to criminally investigate or prosecute any alcohol or drug abuse patient.[facility] HospitalIn the event this information is protected by the Federal Confidentiality of Alcohol and Drug Abuse Patient Records regulations: The Federal rules restrict any use of the information to criminally investigate or prosecute any alcohol or drug abuse patient.[facility] HospitalIn the event this information is protected by the Federal Confidentiality of Alcohol and Drug Abuse Patient Records regulations: The Federal rules restrict any use of the information to criminally investigate or prosecute any alcohol or drug abuse patient.[facility] HospitalIn the event this information is protected by the Federal Confidentiality of Alcohol and Drug Abuse Patient Records regulations: The Federal rules restrict any use of the information to criminally investigate or prosecute any alcohol or drug abuse patient.[facility] HospitalIn the event this information is protected by the Federal Confidentiality of Alcohol and Drug Abuse Patient Records regulations: The Federal rules restrict any use of the information to criminally investigate or prosecute any alcohol or drug abuse patient.[facility] HospitalIn the event this information is protected by the Federal Confidentiality of Alcohol and Drug Abuse Patient Records regulations: The Federal rules restrict any use of the information to criminally investigate or prosecute any alcohol or drug abuse patient.[facility] HospitalIn the event this information is protected by the Federal Confidentiality of Alcohol and Drug Abuse Patient Records regulations: The Federal rules restrict any use of the information to criminally investigate or prosecute any alcohol or drug abuse patient.[facility] HospitalIn the event this information is protected by the Federal Confidentiality of Alcohol and Drug Abuse Patient Records regulations: The Federal rules restrict any use of the information to criminally investigate or prosecute any alcohol or drug abuse patient.[facility] HospitalIn the event this information is protected by the Federal Confidentiality of Alcohol and Drug Abuse Patient Records regulations: The Federal rules restrict any use of the information to criminally investigate or prosecute any alcohol or drug abuse patient.[facility] HospitalIn the event this information is protected by the Federal Confidentiality of Alcohol and Drug Abuse Patient Records regulations: The Federal rules restrict any use of the information to criminally investigate or prosecute any alcohol or drug abuse patient.[facility] HospitalIn the event this information is protected by the Federal Confidentiality of Alcohol and Drug Abuse Patient Records regulations: The Federal rules restrict any use of the information to criminally investigate or prosecute any alcohol or drug abuse patient.[facility] HospitalIn the event this information is protected by the Federal Confidentiality of Alcohol and Drug Abuse Patient Records regulations: The Federal rules restrict any use of the information to criminally investigate or prosecute any alcohol or drug abuse patient.[facility] HospitalIn the event this information is protected by the Federal Confidentiality of Alcohol and Drug Abuse Patient Records regulations: The Federal rules restrict any use of the information to criminally investigate or prosecute any alcohol or drug abuse patient.[facility] HospitalIn the event this information is protected by the Federal Confidentiality of Alcohol and Drug Abuse Patient Records regulations: The Federal rules restrict any use of the information to criminally investigate or prosecute any alcohol or drug abuse patient.[facility] HospitalIn the event this information is protected by the Federal Confidentiality of Alcohol and Drug Abuse Patient Records regulations: The Federal rules restrict any use of the information to criminally investigate or prosecute any alcohol or drug abuse patient.[facility] HospitalIn the event this information is protected by the Federal Confidentiality of Alcohol and Drug Abuse Patient Records regulations: The Federal rules restrict any use of the information to criminally investigate or prosecute any alcohol or drug abuse patient.[facility] HospitalIn the event this information is protected by the Federal Confidentiality of Alcohol and Drug Abuse Patient Records regulations: The Federal rules restrict any use of the information to criminally investigate or prosecute any alcohol or drug abuse patient.[facility] HospitalIn the event this information is protected by the Federal Confidentiality of Alcohol and Drug Abuse Patient Records regulations: The Federal rules restrict any use of the information to criminally investigate or prosecute any alcohol or drug abuse patient.[facility] HospitalIn the event this information is protected by the Federal Confidentiality of Alcohol and Drug Abuse Patient Records regulations: The Federal rules restrict any use of the information to criminally investigate or prosecute any alcohol or drug abuse patient.[facility] HospitalIn the event this information is protected by the Federal Confidentiality of Alcohol and Drug Abuse Patient Records regulations: The Federal rules restrict any use of the information to criminally investigate or prosecute any alcohol or drug abuse patient.[facility] HospitalIn the event this information is protected by the Federal Confidentiality of Alcohol and Drug Abuse Patient Records regulations: The Federal rules restrict any use of the information to criminally investigate or prosecute any alcohol or drug abuse patient.[facility] HospitalIn the event this information is protected by the Federal Confidentiality of Alcohol and Drug Abuse Patient Records regulations: The Federal rules restrict any use of the information to criminally investigate or prosecute any alcohol or drug abuse patient.[facility] HospitalIn the event this information is protected by the Federal Confidentiality of Alcohol and Drug Abuse Patient Records regulations: The Federal rules restrict any use of the information to criminally investigate or prosecute any alcohol or drug abuse patient.[facility] HospitalIn the event this information is protected by the Federal Confidentiality of Alcohol and Drug Abuse Patient Records regulations: The Federal rules restrict any use of the information to criminally investigate or prosecute any alcohol or drug abuse patient.[facility] HospitalIn the event this information is protected by the Federal Confidentiality of Alcohol and Drug Abuse Patient Records regulations: The Federal rules restrict any use of the information to criminally investigate or prosecute any alcohol or drug abuse patient.[facility] HospitalIn the event this information is protected by the Federal Confidentiality of Alcohol and Drug Abuse Patient Records regulations: The Federal rules restrict any use of the information to criminally investigate or prosecute any alcohol or drug abuse patient.[facility] HospitalIn the event this information is protected by the Federal Confidentiality of Alcohol and Drug Abuse Patient Records regulations: The Federal rules restrict any use of the information to criminally investigate or prosecute any alcohol or drug abuse patient.[facility] HospitalIn the event this information is protected by the Federal Confidentiality of Alcohol and Drug Abuse Patient Records regulations: The Federal rules restrict any use of the information to criminally investigate or prosecute any alcohol or drug abuse patient.[facility] HospitalIn the event this information is protected by the Federal Confidentiality of Alcohol and Drug Abuse Patient Records regulations: The Federal rules restrict any use of the information to criminally investigate or prosecute any alcohol or drug abuse patient.[facility] HospitalIn the event this information is protected by the Federal Confidentiality of Alcohol and Drug Abuse Patient Records regulations: The Federal rules restrict any use of the information to criminally investigate or prosecute any alcohol or drug abuse patient.[facility] HospitalIn the event this information is protected by the Federal Confidentiality of Alcohol and Drug Abuse Patient Records regulations: The Federal rules restrict any use of the information to criminally investigate or prosecute any alcohol or drug abuse patient.[facility] Reason for Visit (unrecogniz ed section [...] W/O CONTRAST MATERIAL May Bridges PA-C [address] [place] [address] Ct Imaging Referral ID Status Reason Start Date Expiration Date V isits Requested Visits Authorized [id number] Closed Auto-Generate d Referral 09/09/2021 10/09/2022 1 [...] Loss Specialty Diagnoses / Procedures Referred By Neil t Referred To Contact CT IMAGING Diagnoses Weight loss Procedures CT ABD/PEL WO IVCON CT ABD & PELVIS W/O CONTRAST Markus Rascon MD [address] [place] [address] Ct Imaging Referral ID Status Reason Start Date Expiration Date V isits Requested Visits Authorized [id number] Closed Auto-Generate d Referral 01/17/2022 02/16/2023 1 [...] NM Specialty Diagnoses / Procedures Referred By Neil t Referred To Contact MOLECULAR & FUNCTIONAL IMAGING Diagnoses Chest pain, unspecified type Procedures NM CARDIAC PERF STRESS/PHARM MYOCARDIAL SPECT MULTIPLE STUDIES Rylee Duarte, SOFTWARE ENGINEERING SPECIALIST.AUTOMOTIVE CENTER MANAGER [address] [place] [address] Molecular & Functional Imaging [address] [place] [address] Referral ID Status Reason Start Date Expiration Date V isits Requested Visits Authorized [id number] Closed Auto-Generate d Referral 09/04/2023 10/03/2024 1 1 Reason Onset Date Comments Refill Request 10/23/2023 Reason Comments Established Patient 8 month follow up Reason Comments Female Problem Specialty Diagnoses / Procedures Referred By Neil t Referred To Contact Gynecologic Oncology Diagnoses Other noninflammatory disorders of ovary, fallopian tube and broad ligament Procedures CA OFFICE/OUTPATIENT NEW HIGH MDM 60 MINUTES Tariq Chew [address] [place] [address] [facility] Revenue Coordinator Onc [address] [facility] [address] [place] [address] Referral ID Status Reason Start Date Expiration Date V isits Requested Visits Authorized [id number] Pending Review 11/17/2023 11/16/2024 1 1 Reason Onset Date Comments Medication Problem 11/24/2023 Reason Comments New Patient Combo surgery for pr olapse with dr chery. Urgency frequency, leaking of gas occasional., not emptying bladder. ALVIN, and urge incont. Reason Onset Date Comments surgery scheduling 11/30/2023 Scheduled at [facility] Reason Comments Procedure UDS-Dr Alston for oc cult ALVIN Reason Comments Results UDS Reason Onset Date Comments surgery scheeduling 12/12/2023 Scheduled at [facility] Reason Comments Patient Question Patient Update Specialty Diagnoses / Procedures Referred By Neil t Referred To Contact Diagnoses Intra-abdominal and pelvic swelling, mass and lump, unspecified site Abnormal findings on diagnostic imaging of other specified body structures Incomplete uterovaginal prolapse Cystocele, midline Rectocele Procedures CA LAPS W/VAG HYSTERECT 250 GM/&RMVL TUBE&/OVARIES CA COLPOPEXY VAGINAL INTRAPERITONEAL APPROACH CA CMBND ANTERPOST COLPORRAPHY W/CYSTO CA SLING OPERATION STRESS INCONTINENCE CA CYSTOURETHROSCOPY LAPAROSCOPIC VAGINAL HYSTERECTOMY WITH REMOVAL BILATERAL SALPINGO OOPHORECTOMY UTEROSACRAL LIGAMENT SUSPENSION, ANTERIOR/POSTERIOR REPAIR, POSSIBLE SLING PROCEDURE, CYSTOSCOPY ANTERIOR AND POSTERIOR COLPORRHAPHY SLING OPERATION FOR STRESS INCONTINENCE CYSTOSCOPY Leandro Chery MD [address] [facility] [address] [place] [address] [address] [place] [address] Referral ID Status Reason Start Date Expiration Date Visits Re quested Visits Authorized [id number] 1 1 Reason Comments Post-op Visit Reason Onset Date Comments Post-op Problem 12/24/2023 Reason Onset Date Comments Other 01/03/2024 Restrictions aft er surgery Reason Comments Post-op Thinks maybe the rec chad part came undone, states it looks different, maybe hemorrhoids? Reason Comments 6 Month Exam Weight Loss Steadily decreasing weight Reason Comments Recheck 4 week follow up- we ight loss Reason Comments Med Change Request Reason Comments Consult Iron deficiency anem ia, unspecified iron deficiency anemia type [D50.9]; Family history of colon cancer [Z80.0]; Weight loss [R63.4]; Heme positive stool [R19.5] Specialty Diagnoses / Procedures Referred By Contac t Referred To Contact General Surgery Diagnoses Iron deficiency anemia, unspecified iron deficiency anemia type Family history of colon cancer Weight loss Heme positive stool Procedures CONSULT TO GENERAL SURGERY OFFICE/OUTPATIENT [facility] 60 MINUTES Markus Rascon MD [address] [place] [address] Referral ID Status Reason Start Date Expiration Date V isits Requested Visits Authorized [id number] Closed PCP Requested Referral 02/19/2024 02/18/2025 1 1 Reason Comments Spirometry Specialty Diagnoses / Procedures Referred By Contac t Referred To Contact [facility] Diagnoses Asthma-COPD overlap syndrome (HCC) Restrictive 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 Procedures LUNG VOLUMES Shanita Jackson, PAAparna [address] [place] [address] Respiratory [place] [address] [place] [address] Referral ID Status Reason Start Date Expiration Date V isits Requested Visits Authorized [id number] Closed Auto-Generate d Referral 03/27/2024 04/26/2025 1 1 Specialty Diagnoses / Procedures Referred By Contac t Referred To [facility] [place] Diagnoses Asthma-COPD overlap syndrome (HCC) Restrictive 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 Procedures LUNG DIFFUSION CAPACITY (DLCO) DIFFUSING CAPACITY Shanita Jackson PA-C [address] [place] [address] [address] Referral ID Status Reason Start Date Expiration Date V isits Requested Visits Authorized [id number] Closed Auto-Generate d Referral 03/27/2024 04/26/2025 1 1 Specialty Diagnoses / Procedures Referred By Contac t Referred To [facility] [place] Diagnoses Asthma-COPD overlap syndrome (HCC) Restrictive 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 Procedures SIX MINUTE WALK CARDIOPULMONARY EXERCISE STRESS Shanita Jackson PA-C [address] [place] [address] [address] Referral ID Status Reason Start Date Expiration Date V isits Requested Visits Authorized [id number] Closed Auto-Generate d Referral 03/27/2024 04/26/2025 1 1 Specialty Diagnoses / Procedures Referred By Contac t Referred To [facility] Diagnoses Asthma-COPD overlap syndrome (HCC) Restrictive 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 Procedures SPIROMETRY BASELINE ONLY SPMTRY W/VC EXPIRATORY MARQUISE W/WO MXML VOL VNTJ Shanita Jackson PA-C [address] [place] [address] [address] Referral ID Status Reason Start Date Expiration Date V isits Requested Visits Authorized [id number] Closed Auto-Generate d Referral 03/27/2024 04/26/2025 1 1 Reason Comments Established Patient 4 month follow up Reason Comments Gastroesophageal Reflux EGD 03/21/24 Colonoscopy Report Reason Onset Date Comments Vaginal Discharge 04/10/2024 Reason Comments Other Stitch in vaginal ar ea Reason Comments Recheck 4 week bp check Reason Comments Established Patient Review PFT Reason Comments F/U 3 months Reason Comments fax lab result to [facility] Reason Comments Follow-up Feels that prolapse may be back. At night can't get to bathroom in time and will leak sometimes. With running water will get an urgency to go. Reason Comments Follow Up Reason Comments Erroneous encounter-disregard Reason Onset Date Comments Refill Request 12/02/2024 Care Teams (unrecognized sec tion and content) Tufting Machine Fixer 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 Start Date End Date Markus Rascno MD [address] [place] [address] PCP - General Family Practice 08/09/18 Tufting Machine Fixer 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 Start Date End Date Markus Rascon MD [address] [place] [address] PCP - General Family Practice 08/09/18 Tufting Machine Fixer 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 Start Date End Date Markus Rascon MD [address] [place] [address] PCP - General Family Practice 08/09/18 Tufting Machine Fixer 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 Start Date End Date Markus Rascon MD [address] [place] [address] PCP - General Family Practice 08/09/18 Tufting Machine Fixer 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 Start Date End Date Markus Rascon MD [address] [place] [address] PCP - General Family Practice 08/09/18 Tufting Machine Fixer 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 Start Date End Date Markus Rascon MD [address] [place] [address] PCP - General Family Practice 08/09/18 Tufting Machine Fixer 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 Start Date End Date Markus Rascon MD [address] [place] [address] PCP - General Family Practice 08/09/18 Tufting Machine Fixer 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 Start Date End Date Markus Rascon MD [address] [place] [address] PCP - General Family Practice 08/09/18 Tufting Machine Fixer 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 Start Date End Date Markus Rascon MD [address] [place] [address] PCP - General Family Practice 08/09/18 Tufting Machine Fixer 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 Start Date End Date Markus Rascon MD [address] [facility] [place] [address] PCP - General Family Practice 08/09/18 Tufting Machine Fixer 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 Start Date End Date Markus Rascon MD [address] [place] [address] PCP - General Family Practice 08/09/18 Tufting Machine Fixer 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 Start Date End Date Markus Rascon MD [address] [place] [address] PCP - General Family Practice 08/09/18 Tufting Machine Fixer 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 Start Date End Date Markus Rascon MD [address] [place] [address] PCP - General Family Practice 08/09/18 Tufting Machine Fixer 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 Start Date End Date Markus Rascon MD [address] [place] [address] PCP - General Family Practice 08/09/18 Tufting Machine Fixer 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 Start Date End Date Markus Rascon MD [address] [place] [address] PCP - General Family Practice 08/09/18 Tufting Machine Fixer 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 Start Date End Date Markus Rascon MD [address] [place] [address] PCP - General Family Practice 08/09/18 Tufting Machine Fixer 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 Start Date End Date Markus Rascon MD [address] [place] [address] PCP - General Family Practice 08/09/18 Tufting Machine Fixer 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 Start Date End Date Markus Rascon MD [address] [place] [address] PCP - General Family Practice 08/09/18 Tufting Machine Fixer 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 Start Date End Date Markus Rascon MD [address] [place] [address] PCP - General Family Medicine 08/09/18 Tufting Machine Fixer 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 Start Date End Date Markus Rascon MD [address] [place] [address] PCP - General Family Medicine 08/09/18 Tufting Machine Fixer 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 Start Date End Date Markus Rascon MD [address] [place] [address] PCP - General Family Medicine 08/09/18 Tufting Machine Fixer 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 Start Date End Date Markus Rascon MD [address] [place] [address] PCP - General Family Medicine 08/09/18 Danny [place], DO [address] [place] [facility] [place] [address] Hematology/Oncology 04/21/22 Tufting Machine Fixer 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 Start Date End Date Markus Rascon MD [address] [place] [address] PCP - General Family Medicine 08/09/18 Danny [place], DO [address] [place] [place] [address] Hematology/Oncology 04/21/22 Tufting Machine Fixer 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 Start Date End Date Markus Rascon MD [address] [place] [address] PCP - General Family Medicine 08/09/18 Danny [place], DO [address] [place] [address] Hematology/Oncology 04/21/22 Tufting Machine Fixer 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 Start Date End Date Markus Rascon MD [address] [place] [address] PCP - General Family Medicine 08/09/18 Danny [place], DO [address] [place] [address] Hematology/Oncology 04/21/22 Tufting Machine Fixer 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 Start Date End Date Markus Rascon MD [address] [place] [address] PCP - General Family Medicine 08/09/18 Danny [place], DO [address] [place] [address] Hematology/Oncology 04/21/22 Tufting Machine Fixer 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 Start Date End Date Markus Rascon MD [address] [place] [address] PCP - General Family Medicine 08/09/18 Danny [place], DO [address] [place] [address] Hematology/Oncology 04/21/22 Team Status: Active Member Role Status Dates Dr. Markus Rascon MD Family Provider Active Dr. Markus Rascon MD Primary Care Provider Active Team Status: Inactive Member Role Status Dates Dr. Markus Rascon MD Primary Care Provider, Referring Provider Active Dr. Gordy Null MD Attending Provider Active Team Status: Inactive Member Role Status Dates Dr. Markus Rascon MD Primary Care Provider Active Dr. Gordy Null MD Attending Provider, Referring Provi valarie Active Tufting Machine Fixer 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 Start Date End Date Markus Rascon MD [address] [place] [address] PCP - General Family Medicine 08/09/18 Danny [place], DO [address] [place] [address] Hematology/Oncology 04/21/22 Tufting Machine Fixer 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 Start Date End Date Markus Rascon MD [address] [place] [address] PCP - General Family Medicine 08/09/18 Danny [place], DO [address] [place] [address] Hematology/Oncology 04/21/22 Tufting Machine Fixer 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 Start Date End Date Markus Rascon MD [address] [facility] [place] [address] PCP - General Family Medicine 08/09/18 Danny [place], DO [address] [place] [address] Hematology/Oncology 04/21/22 Team Status: Inactive Member Role Status Dates Dr. Markus Rascon MD Primary Care Provider Active Dr. Shanita Terrell MD Emergency Provider Active Tufting Machine Fixer 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 Start Date End Date Markus Rascon MD [address] [place] [address] PCP - General Family Medicine 08/09/18 Danny [place], DO [address] [place] [address] Hematology/Oncology 04/21/22 Team Status: Inactive Member Role Status Dates Dr. Markus Rascon MD Primary Care Provider Active Dr. Tariq Chew MD Attending Provider, Referr ing Provider Active Team Status: Inactive Member Role Status Dates Dr. Markus Rascon MD Primary Care Provider Active Dr. Shanita Terrell MD Attending Provider, Emergency Provider Active Tufting Machine Fixer 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 Start Date End Date Markus Rascon MD [address] [place] [address] PCP - General Family Medicine 08/09/18 Danny [place] DO [address] [place] [address] Hematology/Oncology 04/21/22 Tufting Machine Fixer 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 Start Date End Date Markus Rascon MD [address] [place] [address] PCP - General Family Medicine 08/09/18 Danny [place] DO [address] [place] [address] Hematology/Oncology 04/21/22 Tufting Machine Fixer 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 Start Date End Date Markus Rascon MD [address] [place] [address] PCP - General Family Medicine 08/09/18 Danny [place] DO [address] [place] [address] Hematology/Oncology 04/21/22 Tufting Machine Fixer 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 Start Date End Date Markus Rascon MD [address] [place] [address] PCP - General Family Medicine 08/09/18 Danny [place] DO [address] [place] [address] Hematology/Oncology 04/21/22 Tufting Machine Fixer 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 Start Date End Date Markus Rascon MD [address] [facility] [place] [address] PCP - General Family Medicine 08/09/18 Danny [place] DO [address] [place] [address] Hematology/Oncology 04/21/22 Tufting Machine Fixer 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 Start Date End Date Markus Rascon MD [address] [facility] [place] [address] PCP - General Family Medicine 08/09/18 Danny [place] DO [address] [place] [address] Hematology/Oncology 04/21/22 Tufting Machine Fixer 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 Start Date End Date Markus Rascon MD [address] [facility] [place] [address] PCP - General Family Medicine 08/09/18 Danny [place] DO [address] [place] [address] Hematology/Oncology 04/21/22 Tufting Machine Fixer 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 Start Date End Date Markus Rascon MD [address] [facility] [place] [address] PCP - General Family Medicine 08/09/18 Danny [place] DO [address] [place] [address] Hematology/Oncology 04/21/22 Tufting Machine Fixer 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 Start Date End Date Markus Rascon MD [address] [place] [address] PCP - General Family Medicine 08/09/18 Danny [place] DO [address] [place] [address] Hematology/Oncology 04/21/22 Tufting Machine Fixer 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 Start Date End Date Markus Rascon MD [address] [facility] [place] [address] PCP - General Family Medicine 08/09/18 Danny [place] DO [address] [place] [address] Hematology/Oncology 04/21/22 Gordy Null MD [address] [place] [address] Endocrinology 07/04/23 Tufting Machine Fixer 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 Start Date End Date Markus Rascon MD [address] [facility] [place] [address] PCP - General Family Medicine 08/09/18 Danny [place] DO [address] [place] [address] Hematology/Oncology 04/21/22 Gordy Null MD [address] [place] [address] Endocrinology 07/04/23 Tufting Machine Fixer 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 Start Date End Date Markus Rascon MD [address] [facility] [place] [address] PCP - General Family Medicine 08/09/18 Danny One[place] DO [address] [place] [address] Hematology/Oncology 04/21/22 Gordy Null MD [address] [facility] [address] [place] [address] Endocrinology 07/04/23 Tufting Machine Fixer 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 Start Date End Date Markus Rascon MD [address] [place] [address] PCP - General Family Medicine 08/09/18 Danny One[place] DO [address] [place] [address] Hematology/Oncology 04/21/22 Gordy Null MD [address] [place] [address] [place] [address] Endocrinology 07/04/23 Tufting Machine Fixer 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 Start Date End Date Markus Rascon MD [address] [facility] [place] [address] PCP - General Family Medicine 08/09/18 Danny Oneill DO [address] [place] [address] Hematology/Oncology 04/21/22 Gordy Null MD [address] [facility] [address] [place] [address] Endocrinology 07/04/23 Tufting Machine Fixer 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 Start Date End Date Markus Rascon MD [address] [facility] [place] [address] PCP - General Family Medicine 08/09/18 Danny Oneill DO [address] [place] [address] Hematology/Oncology 04/21/22 Gordy Null MD [address] [place] [address] Endocrinology 07/04/23 Tufting Machine Fixer 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 Start Date End Date Markus Rascon MD [address] [place] [address] PCP - General Family Medicine 08/09/18 Danny Oneill DO [address] [place] [address] Hematology/Oncology 04/21/22 Gordy Null MD [address] [place] [address] Endocrinology 07/04/23 Tufting Machine Fixer 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 Start Date End Date Markus Rascon MD [address] [place] [address] PCP - General Family Medicine 08/09/18 Danny Oneill DO [address] [place] [address] Hematology/Oncology 04/21/22 Gordy Null MD [address] [place] [address] Endocrinology 07/04/23 Tufting Machine Fixer 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 Start Date End Date Markus Rascon MD [address] [place] [address] PCP - General Family Medicine 08/09/18 Danny Oneill DO [address] [place] [address] Hematology/Oncology 04/21/22 Gordy Null MD [address] [place] [address] Endocrinology 07/04/23 Tufting Machine Fixer 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 Start Date End Date Markus Rascon MD [address] [place] [address] PCP - General Family Medicine 08/09/18 Danny Oneill DO [address] [place] [address] Hematology/Oncology 04/21/22 Gordy Null MD 16[address] [facility] 101 [place] [address] Endocrinology 07/04/23 Tufting Machine Fixer 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 Start Date End Date Markus Rascon MD [address] [place] [address] PCP - General Family Medicine 08/09/18 Danny Oneill DO [address] [place] [address] Hematology/Oncology 04/21/22 Gordy Null MD [address] [facility] [address] [place] [address] Endocrinology 07/04/23 Tufting Machine Fixer 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 Start Date End Date Markus Rascon MD [address] [place] [address] PCP - General 04/15/20 Leandro Chery MD [address] [facility] [address] [place] [address] Consulting Physician Gynecologic Oncology 11/19/23 Tufting Machine Fixer 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 Start Date End Date Markus Rascon MD [address] [place] [address] PCP - General 04/15/20 Leandro Chery MD [address] [facility] [address] [place] [address] Consulting Physician Gynecologic Oncology 11/19/23 Tufting Machine Fixer 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 Start Date End Date Markus Rascon MD [address] [place] [address] PCP - General 04/15/20 Leandro Chery MD [address] [facility] [address] [place] [address] Consulting Physician Gynecologic Oncology 11/19/23 Tufting Machine Fixer 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 Start Date End Date Markus Rascon MD [address] [place] [address] 557291 PCP - General 04/15/20 Leandro Chery MD [address] [facility] [address] [place] [address] Consulting Physician Gynecologic Oncology 11/19/23 Tufting Machine Fixer 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 Start Date End Date Markus Rascon MD [address] [place], [place] [address] PCP - General 04/15/20 Leandro Chery MD [address] [facility] [address] [place] [address] Consulting Physician Gynecologic Oncology 11/19/23 Tufting Machine Fixer 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 [place] [address] [place] [address] [id number] PCP - General 04/15/20 Leandro Chery MD [address] [facility] [address] [place] [address] Consulting Physician Gynecologic Oncology 11/19/23 Tufting Machine Fixer 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 Start Date End Date Markus Rascon MD [address] [place] [address] [id number] PCP - General 04/15/20 Leandro Chery MD 161 [facility] [address] [place] [address] Consulting Physician Gynecologic Oncology 11/19/23 Tufting Machine Fixer 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 Start Date End Date Markus Rascon MD [address] [place], [place] 9[address]121 PCP - General 04/15/20 Leandro Chery MD [address] [facility] [address] [place] [address] Consulting Physician Gynecologic Oncology 11/19/23 Tufting Machine Fixer 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 Start Date End Date Markus Rascon MD [address] [facility] [place] [address] PCP - General 04/15/20 Leandro Chery MD 161 [facility] 295 [place] [address] Consulting Physician Gynecologic Oncology 11/19/23 Tufting Machine Fixer 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 Start Date End Date Markus Rascon MD [address] [facility] [place] [address] PCP - General 04/15/20 Leandro Chery MD 161 [facility] 295 [place] [address] Consulting Physician Gynecologic Oncology 11/19/23 Tufting Machine Fixer 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 Start Date End Date Markus Rascon MD [address]40 [place], [place] 306881 PCP - General Family Medicine 08/09/18 Danny Oneill DO [address] [place], [place] [address]011 Hematology/Oncology 04/21/22 Gordy Null MD [address] [id number] Endocrinology 07/04/23 Tufting Machine Fixer 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 Start Date End Date Markus Rascon MD [address]40 [place], [place] 480821 PCP - General Family Medicine 08/09/18 Danny Oneill DO [address] [place] [address] Hematology/Oncology 04/21/22 Gordy Null MD [address] [facility] [address] [place] [address] Endocrinology 07/04/23 Tufting Machine Fixer 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 Start Date End Date Markus Rascon MD [address]2 [place] [address] PCP - General 04/15/20 Leandro Chery MD 161 [facility] 295 [place] [address] Consulting Physician Gynecologic Oncology 11/19/23 Tufting Machine Fixer 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 Start Date End Date Markus Rascon MD [address]2 [place] [address] PCP - General 04/15/20 Leandro Chery MD 161 [facility] [address] [place] [address] Consulting Physician Gynecologic Oncology 11/19/23 Tufting Machine Fixer 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 Start Date End Date Markus Rascon MD [address]2 [place] [address] PCP - General 04/15/20 Leandro hCery MD [address] [facility] [address] [place] [address] Consulting Physician Gynecologic Oncology 11/19/23 Pelon Davis MD 161 [facility] [address] [place], [place] [id number] Consulting Physician Gynecologic Oncology 12/24/23 Tufting Machine Fixer 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 Start Date End Date Markus Rascon MD [address] [facility] [place] [address] PCP - General 04/15/20 Leandro Chery MD [address] [facility] [address] [place] [address] Consulting Physician Gynecologic Oncology 11/19/23 Pelon Davis MD 161 [facility] [address] [place] [address] Consulting Physician Gynecologic Oncology 12/24/23 Tufting Machine Fixer 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 Start Date End Date Markus Rascon MD [address] [place] [address] [id number] PCP - General 04/15/20 Leandro Chery MD 161 [facility] [address] [place] [address] Consulting Physician Gynecologic Oncology 11/19/23 Pelon Davis MD 161 [facility] [address] [place] [address] Consulting Physician Gynecologic Oncology 12/24/23 Tufting Machine Fixer 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 Start Date End Date Markus Rascon MD [address] [facility] [place] [address] PCP - General 04/15/20 Leandro Chery MD [address] [facility] [address] [place] [address] Consulting Physician Gynecologic Oncology 11/19/23 Pelon Davis MD [address] [facility] [address] [place] [address] Consulting Physician Gynecologic Oncology 12/24/23 Tufting Machine Fixer 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 Start Date End Date Markus Rascon MD [address]40 [facility] [place] [address] PCP - General Family Medicine 08/09/18 Danny Oneill DO [address] [place] [address] Hematology/Oncology 04/21/22 Gordy Null MD 1685 [facility] [address] [place] [address] Endocrinology 07/04/23 Tufting Machine Fixer 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 Start Date End Date Markus Rascon MD [address] [place] [address] PCP - General Family Medicine 08/09/18 Danny Oneill DO [address] [place] [address] Hematology/Oncology 04/21/22 Gordy Null MD 1685 [facility] [address] [place] [address] Endocrinology 07/04/23 Tufting Machine Fixer 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 Start Date End Date Markus Rascon MD [address] [facility] [place] [address] PCP - General Family Medicine 08/09/18 Danny Oneill DO [address] [place] [address] Hematology/Oncology 04/21/22 Gordy Null MD [address] [address] Endocrinology 07/04/23 Tufting Machine Fixer 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 Start Date End Date Markus Rascon MD [address]40 [place] [address] PCP - General Family Medicine 08/09/18 Tufting Machine Fixer 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 Start Date End Date Markus Rascon MD [address]40 [place] [address] PCP - General Family Medicine 08/09/18 Tufting Machine Fixer 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 Start Date End Date Markus Rascon MD [address]40 [place] [address] PCP - General Family Medicine 08/09/18 Tufting Machine Fixer 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 Start Date End Date Markus Rascon MD [address]40 [place] [address] PCP - General Family Medicine 08/09/18 Danny [place]ill DO [address] [place] [address] Hematology/Oncology 04/21/22 Gordy Null MD [address] [address] Endocrinology 07/04/23 Tufting Machine Fixer 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 Start Date End Date Markus Rascon MD [address]40 [place] [address] PCP - General Family Medicine 08/09/18 Danny Oneill DO [address] [place] [address] Hematology/Oncology 04/21/22 Gordy Null MD 1685 [facility] [address] [place] [address] Endocrinology 07/04/23 Tufting Machine Fixer 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 Start Date End Date Markus Rascon MD [address] [place] [address] PCP - General Family Medicine 08/09/18 Danny Oneill DO [address] [place] [address] Hematology/Oncology 04/21/22 Gordy Null MD 1685 [facility] [address] [place] [address] Endocrinology 07/04/23 Tufting Machine Fixer 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 Start Date End Date Markus Rascon MD [address] [place] [address] PCP - General Family Medicine 08/09/18 Danny Oneill DO [address] [place] [address] Hematology/Oncology 04/21/22 Gordy Null MD 1685 [facility] [address] [place] [address] Endocrinology 07/04/23 Tufting Machine Fixer 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 Start Date End Date Markus Rascon MD [address] [place] [address] PCP - General Family Medicine 08/09/18 Danny Oneill DO [address] [place] [address] Hematology/Oncology 04/21/22 Gordy Null MD 1685 [facility] [address] [place] [address] Endocrinology 07/04/23 Tufting Machine Fixer 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 Start Date End Date Markus Rascon MD [address] [facility] [place] [address] PCP - General Family Medicine 08/09/18 Danny One[place] DO [address] [place] [address] Hematology/Oncology 04/21/22 Gordy Null MD [address] [facility] [address] Endocrinology 07/04/23 Tufting Machine Fixer 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 Start Date End Date Markus Rascon MD [address] [facility] [place] [address] PCP - General Family Medicine 08/09/18 Danny Oneill DO [address] [place] [address] Hematology/Oncology 04/21/22 Gordy Null MD 1685 [facility] [address] [place] [address] Endocrinology 07/04/23 Tufting Machine Fixer 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 Start Date End Date Markus Rascon MD [address] [place] [address] PCP - General Family Medicine 08/09/18 Danny Oneill DO [address] [place] [address] Hematology/Oncology 04/21/22 Gordy Null MD [address] [address] [place] [address] Endocrinology 07/04/23 Tufting Machine Fixer 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 Start Date End Date Markus Rascon MD [address] [place] [address] PCP - General Family Medicine 08/09/18 Danny One[place] DO [address] [place] [address] Hematology/Oncology 04/21/22 Gordy Null MD 1685 [facility] [address] [place] [address] Endocrinology 07/04/23 Tufting Machine Fixer 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 Start Date End Date Markus Rascon MD [address] [place] [address] PCP - General Family Medicine 08/09/18 Danny Oneill DO [address] [place] [address] Hematology/Oncology 04/21/22 Gordy Null MD [address] [address] [place] [address] Endocrinology 07/04/23 Tufting Machine Fixer 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 Start Date End Date Markus Rascon MD [address] [facility] [place] [address] PCP - General 04/15/20 Leandro Chery MD 161 [facility] 295 [place] [address] Consulting Physician Gynecologic Oncology 11/19/23 Pelon Davis MD 161 [facility] 295 [place] [address] Consulting Physician Gynecologic Oncology 12/24/23 Tufting Machine Fixer 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 Start Date End Date Markus Rascon MD 1740 [place] [address] PCP - General Family Medicine 08/09/18 Danny [place] DO [address] [facility] [place] [address] Hematology/Oncology 04/21/22 Gordy Null MD [address] [address] Endocrinology 07/04/23 Tufting Machine Fixer 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 Start Date End Date Markus Rascon MD [address]40 [place], [place] 127521 PCP - General Family Medicine 08/09/18 Danny [place] DO [address] [place], [place] [address] Hematology/Oncology 04/21/22 Gordy Null MD 1685 [facility] 101 [place] [address] Endocrinology 07/04/23 Debbie Constantino APRN.LEATHER STITCHER [address] [place] [address] Swatch Cutter Family Medicine 05/13/24 Rylee Duarte APRN.LEATHER STITCHER [address] [place] [address] Swatch Cutter Family Medicine 05/13/24 Tufting Machine Fixer 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 Start Date End Date Markus Rascon MD [address]40 [facility] [place] [address] PCP - General Family Medicine 08/09/18 Danny [place] DO [address] [place] [address] Hematology/Oncology 04/21/22 Gordy Null MD 1685 [facility] 101 [place] [address] Endocrinology 07/04/23 Debbie Constantino APRN.LEATHER STITCHER [address] [place] [address] Swatch Cutter Family Medicine 05/13/24 Rylee Duarte APRN.LEATHER STITCHER [address] [place] [address] Swatch Cutter Family Medicine 05/13/24 Tufting Machine Fixer 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 Start Date End Date Markus Rascon MD [address] [place] [address] PCP - General Family Medicine 08/09/18 Danny [place] DO [address] [place] [address] Hematology/Oncology 04/21/22 Gordy Null MD [address] [place] [address] Endocrinology 07/04/23 Debbie Constantino APRN.LEATHER STITCHER 1740 [facility] [place] [address] Swatch Cutter Family [facility] 05/13/24 Rylee Duarte APRN.LEATHER STITCHER [address] [place] [address] Swatch Cutter Family [facility] 05/13/24 Clary Nolasco MD [address] [place] [address] Cardiology 06/24/24 Tufting Machine Fixer 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 Start Date End Date Markus Rascon MD [address] [place] [address] PCP - General Family Medicine 08/09/18 Danny [place] DO [address] [place] [address] Hematology/Oncology 04/21/22 Gordy Null MD [address] [place] [address] Endocrinology 07/04/23 Debbie Constantino APRN.LEATHER STITCHER 1740 [facility] [place] [address] Swatch Cutter Family Medicine 05/13/24 Rylee Duarte SOFTWARE ENGINEERING SPECIALIST.LEATHER STITCHER [address] [facility] [place] [address] Swatch Cutter Family Medicine 05/13/24 Clary Nolasco MD [address] [place] [address] Cardiology 06/24/24 Tufting Machine Fixer 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 Start Date End Date Markus Rascon MD [address] [facility] [place] [address] PCP - General Family Medicine 08/09/18 Danny [place] DO [address] [facility] [place] [address] Hematology/Oncology 04/21/22 Gordy Null MD [address] [place] [address] Endocrinology 07/04/23 Debbie Constantino, SOFTWARE ENGINEERING SPECIALIST.LEATHER STITCHER 1740 [facility] [place] [address] Swatch Cutter Family [facility] 05/13/24 Rylee Duarte SOFTWARE ENGINEERING SPECIALIST.LEATHER STITCHER [address] [facility] [place] [address] Swatch Cutter Family Medicine 05/13/24 Clary Nolasco MD [address] [place] [address] Cardiology 06/24/24 Tufting Machine Fixer 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 Start Date End Date Markus Rascon MD [address] [facility] [place] [address] PCP - General Family Medicine 08/09/18 Danny [place] DO [address] [facility] [place] [address] Hematology/Oncology 04/21/22 Gordy Null MD [address] [place] [address] [place] [address] Endocrinology 07/04/23 Debbie Constantino APRN.LEATHER STITCHER 1740 [facility] [place] [address] Swatch Cutter Family [facility] 05/13/24 Rylee Duarte SOFTWARE ENGINEERING SPECIALIST.LEATHER STITCHER [address] [facility] [place] [address] Swatch Cutter Family [facility] 05/13/24 Clary Nolasco MD [address] [place] [address] Cardiology 06/24/24 Tufting Machine Fixer 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 Start Date End Date Markus Rascon MD [address] [facility] [place] [address] PCP - General Family Medicine 08/09/18 Danny [place] DO [address] [place] [address] Hematology/Oncology 04/21/22 Gordy Null MD [address] [place] [address] Endocrinology 07/04/23 Debbie Constantino APRN.LEATHER STITCHER 1740 [facility] [address] Swatch Cutter Family Medicine 05/13/24 Rylee Duarte APRN.LEATHER STITCHER [address] [facility] [place] [address] Swatch Cutter Family Medicine 05/13/24 Clary Nolasco MD [address] [facility] [place] [address] Cardiology 06/24/24 Tufting Machine Fixer 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 Start Date End Date Markus Rascon MD [address] [facility] [place] [address] PCP - General Family Medicine 08/09/18 Danny [place] DO [address] [place] [address] Hematology/Oncology 04/21/22 Gordy Null MD [address] [place] [address] Endocrinology 07/04/23 Debbie Constantino APRN.LEATHER STITCHER [address] [facility] [address] Swatch Cutter Family [facility] 05/13/24 Rylee Duarte APRN.LEATHER STITCHER [address] [facility] [place] [address] Swatch Cutter Family Medicine 05/13/24 Clary Nolasco MD [address] [place] [address] Cardiology 06/24/24 Tufting Machine Fixer 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 Start Date End Date Markus Rascon MD [address] [place] [address] PCP - General Family Medicine 08/09/18 Danny [place] DO [address] [facility] [place] [address] Hematology/Oncology 04/21/22 Gordy Null MD [address] [place] [address] Endocrinology 07/04/23 Debbie Constantino APRN.LEATHER STITCHER [address] [place] [address] Swatch Cutter Family Medicine 05/13/24 Rylee Duarte, SOFTWARE ENGINEERING SPECIALIST.LEATHER STITCHER [address] [place] [address] Swatch Cutter Family Medicine 05/13/24 Clary Nolasco MD [address] [place] [address] Cardiology 06/24/24 Tufting Machine Fixer 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 Start Date End Date Markus Rascon MD [address] [place] [address] PCP - General Family Medicine 08/09/18 Danny [place] DO [address] [place] [address] Hematology/Oncology 04/21/22 Gordy Null MD 1685 [facility] [address] [place] [address] Endocrinology 07/04/23 Debbie Constantino APRN.LEATHER STITCHER 1740 [facility] [place] [address] Swatch Cutter Family [facility] 05/13/24 Rylee Duarte APRN.LEATHER STITCHER [address] [place] [place] [place] [address] Swatch Cutter Family [facility] 05/13/24 Clary Nolasco MD [address] [place] [address] Cardiology 06/24/24 Goals (unrecognized section and content) Goals may be documented in a n alternate sectionGoals may be documented in an alternate sectionGoals may be documented in an alternate sectionGoals may be documented in an alternate sectionGoals may be documented in an alternate sectionGoals may be documented in an alternate sectionGoals may be documented in an alternate sectionGoals may be documented in an alternate section INFORMATION SOURCE (unrecogn ized section and content) DATE CREATED AUTHOR 02/15/2023 [facility] DATE CREATED AUTHOR AUTHOR'S ORGANIZ ATION 06/23/2023 [facility] DATE CREATED AUTHOR AUTHOR'S ORGANIZ ATION 08/08/2024 [facility] DATE CREATED AUTHOR AUTHOR'S ORGANIZ ATION 11/12/2024 [facility] DATE CREATED AUTHOR AUTHOR'S ORGANIZ ATION 12/06/2024 [facility] Scheduled Active and Recently Administ ered Medications [...] Surgical Prophylaxis 1317 (Given - Provid er: PEARL Bonilla CRNA) famotidine (Pepcid) tablet 20 mg (COMPLETED)(Linked Group [...] Barrera RN)1304 (Continued by Anesthesia - Provider: Tavon Groves APRN - BENJAMIN)1637 (Anesthesia Volume Adjustment - Provider: PEARL Bonilla [...] hydralazine IV order. lidocaine-EPINEPHrine (Xylocaine W/EPI) 0.5 %-1:[id number] injection (CANCELED) As needed, Starting on Mon12/19/23 at 1548, Intraprocedure 1548 (Given - Provid er: Marie Alston MD) lidocaine-EPINEPHrine (Xylocaine W/EPI) 1 %-1:401257 injection (CANCELED) As needed, Starting on Mon12/19/23 [...] 1 dose, Recovery (only), Initial antiemetic therapy. 1825 (Given - Provid er: Shiv Madrigal RN) [...] er: Leandro Chery MD - Comment: SUCTION EMPLOYMENT REPRESENTATIVE)1549 (Given - Provider: Marie Alston MD - [...] BE BASED ON THE PRIMARY CLINICAL RECORDS. [employer] [facility]. provides no warranty or guarantee of the accuracy or completeness of information in this document.
== END 2024-12-08 20:35 | disposition home or self-care (01) ==
LOC: ED 20:32
PROVIDERS: Emergency Provider Emergency Medicine; PCP Family Medicine; Visit Provider Emergency Medicine
DX: S09.90XA Unspecified injury of head, initial encounter (principal); I10 Essential (primary) hypertension; W01.10XA Fall on same level from slipping, tripping and stumbling with subsequent striking against unspecified object, initial encounter
CPT/HCPCS: 99282